=== PATIENT | female | born 1970 | race Caucasian/White ===

== ENCOUNTER 2017-07-12 10:15 | Emergency (ER) | payer SELFPAY ==
[~2017-07-12] VITALS: Ht 172.7 cm; Wt 133.2 kg
[~2017-07-12 10:15] MED LIST: ACET-1311 PO; GUAI100L PO; LISI10TA PO
[2017-07-12 10:19] VITALS: TEMP 36.6
--- NOTE | 2017-07-12 10:46 | EMERGENCY ROOM VISIT NOTE ---
History First contact with patient: 10:38 Chief Complaint: ED VAG BLEEDING Stated Complaint: NO PERIOD SINCE NOV 2016, NOW SUPER HEAVY/CLOTS History of Present Illness The patient is a 46 year old female who presents to the Emergency Room with complaints of heavy vaginal bleeding that started Tuesday, she states that she was bleeding through one pad every 30 minutes yesterday, but states that her bleeding has slowed down today. Her last period was November 2016, she states that she thought she might be going through menopause since she has not had a period for several months. She has some associated abdominal cramping and lower back cramps, but denies severe pain, nausea/vomiting, chest pain, shortness of breath, dizziness, syncope, fevers or chills, changes in bowel movements, or urinary complaints. She is sexually active with one male partner , she denies any concerns for STDs. Review of Systems A complete 10 point review of systems was reviewed with the patient with pertinent positives and negatives as per history of present illness. All else were negative. Past Medical/Surgical History Medical Problems: (1) Brain cyst (2) Bronchitis Social History Smoking Status: Former Smoker Marital Status: Occupation Status: unemployed Current/Historical Medications Scheduled PRN Ibuprofen (Motrin), 800 MG PO TID PRN for Pain Physical Exam Vital Signs Date Time Temp Pulse Resp B/P (MAP) Pulse Ox O2 Delivery O2 Flow Rate FiO2 07/12/17 13:48 68 20 163/90 98 Room Air 07/12/17 12:16 76 07/12/17 11:58 73 16 148/80 99 Room Air 07/12/17 11:24 98 Room Air 07/12/17 10:19 36.6 95 18 155/86 99 Room Air Physical Exam CONSTITUTIONAL: No acute distress. Well appearing and well nourished. Alert and oriented X 4 with normal affect. HEENT: Normocephalic, atraumatic. Pupils equal, round and reactive to light, EOMI. TMs normal. Pharynx normal. NECK: Supple, full active range of motion without discomfort. RESPIRATORY: Clear to auscultation bilaterally with no wheezing, crackles, rhonchi or stridor. Equal expansion bilaterally. CARDIOVASCULAR: Regular rate and rhythm with no murmurs, rubs or gallops. Normal peripheral perfusion. No edema. GASTROINTESTINAL: Soft, nontender, nondistended, obese. Bowel sounds present in all quadrants. PELVIC EXAM: External genitalia normal, no lacerations. Speculum exam reveals small amount of dark red blood/clots in the vaginal canal, no active bleeding noted. Bimanual exam reveals a closed cervix, no cervical motion tenderness, no uterine or adnexal tenderness or fullness. MUSCULOSKELETAL: Full range of motion of all joints without discomfort. INTEGUMENTARY: No rash or other significant dermatologic conditions noted. NEUROLOGIC: Cranial nerves II-XII grossly intact. No focal neurologic deficits noted. Medical Decision & Procedures ER Provider Diagnostic Interpretation: PELVIC COMPLETE NON OB HISTORY: 46 years-old Female heavy vaginal bleeding, not acute vaginal bleeding. COMPARISON: Hysterosalpingogram 05/03/2011 TECHNIQUE: Multiple real-time sonographic images of the deep pelvic structures were obtained transabdominally and transvaginally assessing grayscale appearance, color and spectral flow. FINDINGS: Study is mildly limited secondary to patient body habitus. TRANSABDOMINAL: Anteflexed uterus measures 7.9 x 3.4 x 3.8 cm. Endometrium measures 0.4 cm. TRANSVAGINAL: Anteflexed uterus measures 8.5 x 4.2 x 5.3 cm. Endometrium measures 1.0 cm in thickness. Nabothian cysts are noted. Right ovary measures 2.4 x 2.1 x 2.2 cm and is unremarkable with arterial inflow documented. The left ovary measures 2.6 x 1.7 x 2.5 cm and is also unremarkable with arterial inflow documented. There is no significant free pelvic fluid. Bladder is partially collapsed. IMPRESSION: 1. Unremarkable sonographic appearance of the uterus, endometrium and ovaries without evidence of ovarian torsion. 2. No significant free pelvic fluid. Laboratory Results 07/12/17 11:10 Red Blood Count 4.63, Mean Corpuscular Volume 97.0, Mean Corpuscular Hemoglobin 33.0, Mean Corpuscular Hemoglobin Concent 34.1, Mean Platelet Volume 12.0, Neutrophils (%) (Auto) 56.7, Lymphocytes (%) (Auto) 32.6, Monocytes (%) (Auto) 9.0, Eosinophils (%) (Auto) 1.1, Basophils (%) (Auto) 0.3, Neutrophils # (Auto) 4.93, Lymphocytes # (Auto) 2.85, Monocytes # (Auto) 0.79, Eosinophils # (Auto) 0.10, Basophils # (Auto) 0.03 07/12/17 11:10 Test 07/12/17 11:10 07/12/17 11:22 White Blood Count 8.73 K/uL (4.8-10.8) Red Blood Count 4.63 M/uL (4.2-5.4) Hemoglobin 15.3 g/dL (12.0-16.0) Hematocrit 44.9 % (37-47) Mean Corpuscular Volume 97.0 fL (80-100) Mean Corpuscular Hemoglobin 33.0 pg (25-34) Mean Corpuscular Hemoglobin Concent 34.1 g/dl (32-36) Platelet Count 262 K/uL (130-400) Mean Platelet Volume 12.0 fL (7.4-10.4) Neutrophils (%) (Auto) 56.7 % Lymphocytes (%) (Auto) 32.6 % Monocytes (%) (Auto) 9.0 % Eosinophils (%) (Auto) 1.1 % Basophils (%) (Auto) 0.3 % Neutrophils # (Auto) 4.93 K/uL (1.4-6.5) Lymphocytes # (Auto) 2.85 K/uL (1.2-3.4) Monocytes # (Auto) 0.79 K/uL (0.11-0.59) Eosinophils # (Auto) 0.10 K/uL (0-0.5) Basophils # (Auto) 0.03 K/uL (0-0.2) RDW Standard Deviation 55.3 fL (36.4-46.3) RDW Coefficient of Variation 15.4 % (11.5-14.5) Immature Granulocyte % (Auto) 0.3 % Immature Granulocyte # (Auto) 0.03 K/uL (0.00-0.02) Prothrombin Time 10.8 SECONDS (9.0-12.0) Prothromb Time International Ratio 1.0 (0.9-1.1) Activated Partial Thromboplast Time 26.2 SECONDS (21.0-31.0) Partial Thromboplastin Ratio 1.0 Anion Gap 6.0 mmol/L (3-11) Est Creatinine Clear Calc Drug Dose 118.4 ml/min Estimated GFR () 95.3 Estimated GFR (Non- 82.2 BUN/Creatinine Ratio 9.5 (10-20) Calcium Level 9.3 mg/dl (8.5-10.1) Total Bilirubin 0.4 mg/dl (0.2-1) Aspartate Amino Transf (AST/SGOT) 60 U/L (15-37) Alanine Aminotransferase (ALT/SGPT) 93 U/L (12-78) Alkaline Phosphatase 90 U/L (45-117) Total Protein 7.4 gm/dl (6.4-8.2) Albumin 3.5 gm/dl (3.4-5.0) Globulin 3.9 gm/dl (2.5-4.0) Albumin/Globulin Ratio 0.9 (0.9-2) Urine Color RED Urine Appearance CLEAR (CLEAR) Urine pH (4.5-7.5) Urine Specific [place] 1.027 (1.000-1.030) Urine Protein (NEG) Urine Glucose (UA) (NEG) Urine Ketones (NEG) Urine Occult Blood (NEG) Urine Nitrite (NEG) Urine Bilirubin (NEG) Urine Urobilinogen (NEG) Urine Leukocyte Esterase (NEG) Urine RBC >30 /hpf (0-4) Urine WBC >30 /hpf (0-5) Urine Epithelial Cells 10-20 /lpf (0-5) Urine Bacteria NEG (NEG) Urine Granular Casts 0-3 /lpf (0) Urine Mucus PRESENT (NONE PRSENT) Urine Test NEG (NEG) Medications Administered Medications (Trade) Dose Ordered Sig/Chey Route Start Time Stop Time Status Last Admin Dose Admin Sodium Chloride 1,000 ml @ 999 mls/hr Q1H1M STAT IV 07/12/17 10:49 07/12/17 11:49 DC 07/12/17 11:27 999 MLS/HR Medical Decision CC: Patient presenting with complaint of vaginal bleeding Interpretation of Labs: No leukocytosis, no anemia, no significant electrolyte abnormalities, normal renal function, AST/ALT mildly elevated, liver enzymes otherwise negative. UA shows hematuria, no infection. Negative . Differential Diagnosis: Includes, but not limited to dysfunctional uterine bleeding, uterine fibroids, threatened miscarriage, ectopic , ovarian cyst, anemia, among others. Medication Reconciliation: I attest that I have personally reviewed the patient' s current medication list. Vital signs review: I reviewed the patient's vital signs and interpret them as follows: T: Afebrile; BP: Hypertensive; HR: Within normal limits; RR: Within normal limits; Pulse Ox: Within normal limits on room air. Blood pressure screening: The patient was found to have an elevated blood pressure and was referred to their primary doctor for recheck and further treatment. Summary: Patient was evaluated at bedside, history of physical exam performed. Patient is alert and oriented, in no acute distress and nontoxic appearing, resting calmly in the stretcher. Patient does not have any abdominal tenderness or CVA tenderness on exam. Orders were placed at bedside for labs, UA and urine , IV fluids for hydration, pelvic ultrasound to evaluate for etiology of vaginal bleeding. Patient discussed with Dr. Coronado, who agrees with my assessment and plan. Labs reviewed as above, no acute abnormalities. She is not . Ultrasound reviewed, no acute abnormalities to explain patient's vaginal bleeding. Pelvic exam performed with nursing at bedside for health center manager. No significant abnormal findings pelvic exam, mild bleeding noted and cervix is closed. Patient reassessed multiple times throughout ED stay, she reports she is feeling improved and her bleeding has continued to slow since being in the emergency department. I do suspect dysfunctional uterine bleeding, possibly on the spectrum of perimenopause, and recommended patient follow-up with gynecology for further management. I did offer to speak with her director of corporate sponsorships or to patient's discharge for any recommendations for treatment, however patient states she has to leave by 2 PM to go pick pulling machine operator her son, and is requesting discharge at this time. Patient was provided with contact information for gynecology, and encouraged to follow up with them for further treatment. Patient was also given return precautions should her symptoms worsen, she verbalized understanding. Patient is discharged home in stable condition and ambulatory. Medication Reconcilliation Current Medication List: was personally reviewed by me Blood Pressure Screening Patient's blood pressure: Elevated blood pressure Blood pressure disposition: Referred to PCP Impression Primary Impression: DUB (dysfunctional uterine bleeding) Departure Information Dispostion Home / Self-Care Condition GOOD Referrals No Doctor, Assigned (PCP) Neva Calixto M.D. Patient Instructions ED Bleed Irregular Vaginal, [facility] Additional Instructions Please follow-up with TENSIONING MACHINE OPERATOR--call for an appointment. Please return to the ER for worsening symptoms, including severe abdominal or back pain, persistent heavy bleeding (soaking through 2 or more pads/tampons per hour), fever/chills, severe dizziness or passing out, or any other concerns.
[2017-07-12] MEDS ORDERED: SODIUM CHLORIDE 0.9% 1000ML 1,000 ML IV STA (10:49)
[2017-07-12 11:24] VITALS: O2SAT 98; Ht 172.7 cm; Wt 133.2 kg
[2017-07-12 11:30] LABS: BASO % 0.3 %; BASO ABS # 0.03 K/uL (0-0.2); COMPLETE YES; EOS % 1.1 %; HEMATOCRIT 44.9 % (37-47); IG% 0.3 %; LYMPH % 32.6 %; LYMPH ABS # 2.85 K/uL (1.2-3.4); MEAN CORPUSCULAR HGB CONC 34.1 g/dl (32-36); NEUT % 56.7 %; PLATELET COUNT 262 K/uL (130-400); RED BLOOD COUNT 4.63 M/uL (4.2-5.4); WHITE BLOOD COUNT 8.73 K/uL (4.8-10.8)
[2017-07-12] MEDS ORDERED: IBUP-1428 PO (11:37)
[2017-07-12 11:39] LABS: PROTHROMBIN TIME (PATIENT) 10.8 SECONDS (9.0-12.0)
[2017-07-12 11:49] LABS: BUN/CREATININE RATIO 9.5 (10-20); CALCIUM 9.3 mg/dl (8.5-10.1); CREATININE 0.84 mg/dl (0.60-1.20); POTASSIUM 4.1 mmol/L (3.5-5.1)
[2017-07-12 11:52] LABS: ALB/GLOB RATIO 0.9 (0.9-2)
[2017-07-12 11:52] LABS: MANUAL MICROSCOPIC REQUIRED? YES; REVIEW REQ? NO
[2017-07-12 11:53] LABS: SULFASALICYLIC ACID POS (NEG); URINE APPEARANCE CLEAR (CLEAR); URINE COLOR RED; URINE SPECIFIC GRAVITY 1.027 (1.000-1.030)
[2017-07-12 12:00] LABS: URINE RBC >30 /hpf (0-4); URINE WBC >30 /hpf (0-5)
[2017-07-12 12:01] LABS: URINE MUCUS PRESENT (NONE PRSENT)
[2017-07-12 12:02] LABS: URINE BACTERIA NEG (NEG); URINE GRANULAR CAST 0-3 /lpf (0)
--- NOTE | 2017-07-12 13:17 | DIAGNOSTIC IMAGING REPORT ---
PELVIC COMPLETE NON OB HISTORY: 46 years-old Female heavy vaginal bleeding, not acute vaginal bleeding. COMPARISON: Hysterosalpingogram 05/03/2011 TECHNIQUE: Multiple real-time sonographic images of the deep pelvic structures were obtained transabdominally and transvaginally assessing grayscale appearance, color and spectral flow. FINDINGS: Study is mildly limited secondary to patient body habitus. TRANSABDOMINAL: Anteflexed uterus measures 7.9 x 3.4 x 3.8 cm. Endometrium measures 0.4 cm. TRANSVAGINAL: Anteflexed uterus measures 8.5 x 4.2 x 5.3 cm. Endometrium measures 1.0 cm in thickness. Nabothian cysts are noted. Right ovary measures 2.4 x 2.1 x 2.2 cm and is unremarkable with arterial inflow documented. The left ovary measures 2.6 x 1.7 x 2.5 cm and is also unremarkable with arterial inflow documented. There is no significant free pelvic fluid. Bladder is partially collapsed. IMPRESSION: 1. Unremarkable sonographic appearance of the uterus, endometrium and ovaries without evidence of ovarian torsion. 2. No significant free pelvic fluid. The above report was generated using voice recognition software. It may contain grammatical, syntax or spelling errors. Electronically signed by: Marino Arreola M.D. 07/12/2017 1:16 PM Dictated Date/Time: 07/12/2017 1:13 PM
[2017-07-12 13:48] VITALS: BP 163/90; PULSE 68; O2SAT 98
== END 2017-07-12 14:07 | disposition home or self-care (01) ==
LOC: C.EDB 10:16
DX: N93.8 Other specified abnormal uterine and vaginal bleeding (principal); Z87.891 Personal history of nicotine dependence

== ENCOUNTER → 2017-10-26 | Outpatient (CLI) | payer OTHER ==
[~2017-10-26] MED LIST changes: -ACET-1311 PO; -GUAI100L PO; +IBUP-1428 PO; -LISI10TA PO
--- NOTE | 2017-10-26 16:11 | DIAGNOSTIC IMAGING REPORT ---
ULTRASOUND LEFT LOWER EXTREMITY VENOUS CLINICAL HISTORY: Left leg swelling. COMPARISON STUDY: Lower extremity venous ultrasound dated 05/22/2015 TECHNIQUE: Real-time, grayscale, and color Doppler sonography of the deep veins of the left lower extremity was performed from the inguinal crease to the calf. Compression and augmentation were utilized. FINDINGS: There is no sonographic evidence of deep venous thrombosis identified in the left lower extremity. The common femoral, superficial femoral, and popliteal veins are patent and normally compressible. The greater saphenous vein and the profunda femoris vein at the junction with the common femoral vein are clear. The visualized calf veins are patent. IMPRESSION: There is no sonographic evidence of deep venous thrombosis identified in the left lower extremity. Electronically signed by: Kumar Caldwell M.D. 10/26/2017 4:10 PM Dictated Date/Time: 10/26/2017 4:08 PM
== END | disposition home or self-care (01) ==
LOC: C.ULTR 15:43
PROVIDERS: ATTEND Family Medicine
DX: M79.89 Other specified soft tissue disorders (principal)

== ENCOUNTER → 2017-11-04 | Outpatient (CLI) | payer OTHER ==
--- NOTE | 2017-11-07 15:50 | MAMMOGRAPHY REPORT ---
BILATERAL FIRST EVER DIGITAL SCREENING MAMMOGRAM TOMOSYNTHESIS WITH CAD: 11/04/2017 CLINICAL HISTORY: Routine screening. Baseline exam. TECHNIQUE: Breast tomosynthesis in addition to standard 2D mammography was performed. Current study was also evaluated with a Computer Aided Detection (CAD) system. COMPARISON: No prior exams were available for comparison. BREAST COMPOSITION: The tissue of both breasts is almost entirely fatty. FINDINGS: There is a possible small cluster of calcifications within the left upper outer quadrant a nteriorly, for which spot magnification views are recommended for further evaluation. The remainder of both breasts demonstrate no suspicious masses, calcifications, or areas of marine architect ural distortion. IMPRESSION: ACR BI-RADS CATEGORY 0: INCOMPLETE EVALUATION: NEED ADDITIONAL IMAGING EVALUATION Left upper outer quadrant calcifications, for which additional imaging evaluation is recommended give n no priors available to document stability. The patient will be called to schedule an appointment. Approximately 10% of breast cancers are not detected with mammography. A negative mammographic report should not delay biopsy if a clinically suggestive mass is present. Nicole Cardozo M.D. ah/:11/04/2017 15:49:37 Local Bulk Driver: Jannie LEMUS(R)(M), [facility] letter sent: Addl Imaging 0 BI-RADS Code: ACR BI-RADS Category 0: Incomplete Evaluation: Need Additional Imaging Evaluation
== END | disposition home or self-care (01) ==
LOC: C.MAMM 12:46
PROVIDERS: ATTEND Family Medicine
DX: Z12.31 Encounter for screening mammogram for malignant neoplasm of breast (principal); R92.1 Mammographic calcification found on diagnostic imaging of breast

== ENCOUNTER 2017-11-18 04:20 | Emergency (ER) | payer OTHER ==
[~2017-11-18] VITALS: Ht 172.7 cm; Wt 138.5 kg
[2017-11-18 04:24] VITALS: Ht 172.7 cm; Wt 138.5 kg
[2017-11-18] MEDS ORDERED: ALBUT/IPRATROP 3MG/0.5MG NEB 3 ML VIAL INH STA (04:59)
--- NOTE | 2017-11-18 05:13 | EMERGENCY ROOM VISIT NOTE ---
History First contact with patient: 04:46 Chief Complaint: FLU LIKE SX Stated Complaint: FLU History of Present Illness The patient is a 47 year old female who presents to the Emergency Room with complaints of flulike symptoms which started 4 days ago. The patient reports that she has had cough, ear pain, sore throat and body aches. She reports she has been unable to sleep or eat due to the symptoms. She states that the cough is a "deep cough" and makes it difficult to breathe. She rates her discomfort an 8/10. She denies headache, neck pain/stiffness, chest pain or vomiting. Review of Systems A complete 10 point review of systems was reviewed with the patient with pertinent positives and negatives as per history of present illness. All else were negative. Past Medical/Surgical History Medical Problems: (1) Brain cyst (2) Bronchitis Social History Smoking Status: Never Smoker Alcohol Use: none Marital Status: Housing Status: lives alone Occupation Status: unemployed Current/Historical Medications Scheduled Azithromycin (Zithromax Z-Eloy), 0 PO UD Clonidine Hcl (Catapres), 0.1 MG PO DAILY Cyclobenzaprine Hcl (Flexeril), 10 MG PO BID Doxepin (Sinequan), 100 MG PO DAILY Gabapentin (Neurontin), 1,200 MG PO TID Lisinopril (Prinivil), 10 MG PO DAILY Physical Exam Vital Signs Date Time Temp Pulse Resp B/P (MAP) Pulse Ox O2 Delivery O2 Flow Rate FiO2 11/18/17 09:25 37.3 121 20 151/90 96 11/18/17 07:00 115 22 141/83 95 11/18/17 05:41 111 18 141/83 95 Room Air 11/18/17 04:24 37.3 125 20 141/96 95 Room Air Physical Exam VITALS: Vitals are noted on the nurse's note and reviewed by myself. Vital signs stable. GENERAL: This is a 47-year-old female, in no acute distress, nondiaphoretic, well-developed well-nourished. SKIN: The skin was without rashes. HEAD: Normocephalic atraumatic. EARS: External auditory canals clear, tympanic membranes pearly kilpatrick without erythema or effusion bilaterally. EYES: Pupils equal round and reactive to light and accommodation. NOSE: Patent, turbinates without inflammation or discharge. MOUTH: Mucous membranes moist. Tonsils are not enlarged. Pharynx without erythema or exudate. NECK: Supple without nuchal rigidity. No lymphadenopathy. HEART: Regular rate and rhythm without murmurs gallops or rubs. LUNGS: Clear to auscultation bilaterally without wheezes, rales or rhonchi. No retractions or accessory muscle use. NEURO: Patient was alert and oriented to person place and time. Medical Decision & Procedures ER Provider Diagnostic Interpretation: CHEST 2 VIEWS ROUTINE CLINICAL HISTORY: cough, flu-like symptoms COMPARISON STUDY: November 27, 2015 FINDINGS: The cardiac and mediastinal contours are normal. There is no evidence of focal pulmonary consolidation. There is no evidence of failure. No pleural effusions are visualized.[ Slight prominence the basal interstitial markings, likely relates to technical factors given the patient's large body habitus. IMPRESSION: No active disease in the chest. CT ANGIOGRAM OF THE CHEST FINDINGS: Paratracheal and hilar lymph nodes are the upper limits of normal in size. There was no evidence of thoracic aortic dilatation. There were no pulmonary artery filling defects to indicate acute pulmonary embolism. Pulmonary arterial opacification is somewhat limited due to the patient's large body habitus. No pleural effusions are visualized. There is respiratory motion artifact. There are ill-defined bilateral nodular pulmonary airspace opacities. Given the history, the findings likely represent a multifocal pneumonitis. IMPRESSION: 1. No CT evidence of acute pulmonary embolism 2. Ill-defined bilateral nodular pulmonary airspace opacities. Given the clinical history, the findings likely represent a multifocal pneumonitis. Laboratory Results 11/18/17 07:10 Red Blood Count 4.86, Mean Corpuscular Volume 101.4, Mean Corpuscular Hemoglobin 35.4, Mean Corpuscular Hemoglobin Concent 34.9, Mean Platelet Volume 11.6, Neutrophils (%) (Auto) 73.6, Lymphocytes (%) (Auto) 16.4, Monocytes (%) ( Auto) 9.1, Eosinophils (%) (Auto) 0.4, Basophils (%) (Auto) 0.2, Neutrophils # ( Auto) 7.77, Lymphocytes # (Auto) 1.73, Monocytes # (Auto) 0.96, Eosinophils # ( Auto) 0.04, Basophils # (Auto) 0.02 11/18/17 07:10 Test 11/18/17 04:45 11/18/17 07:10 Influenza Type A Antigen Neg for Influ A (NEG) Influenza Type B Antigen Neg for Influ B (NEG) White Blood Count 10.55 K/uL (4.8-10.8) Red Blood Count 4.86 M/uL (4.2-5.4) Hemoglobin 17.2 g/dL (12.0-16.0) Hematocrit 49.3 % (37-47) Mean Corpuscular Volume 101.4 fL (80-100) Mean Corpuscular Hemoglobin 35.4 pg (25-34) Mean Corpuscular Hemoglobin Concent 34.9 g/dl (32-36) Platelet Count 218 K/uL (130-400) Mean Platelet Volume 11.6 fL (7.4-10.4) Neutrophils (%) (Auto) 73.6 % Lymphocytes (%) (Auto) 16.4 % Monocytes (%) (Auto) 9.1 % Eosinophils (%) (Auto) 0.4 % Basophils (%) (Auto) 0.2 % Neutrophils # (Auto) 7.77 K/uL (1.4-6.5) Lymphocytes # (Auto) 1.73 K/uL (1.2-3.4) Monocytes # (Auto) 0.96 K/uL (0.11-0.59) Eosinophils # (Auto) 0.04 K/uL (0-0.5) Basophils # (Auto) 0.02 K/uL (0-0.2) RDW Standard Deviation 55.3 fL (36.4-46.3) RDW Coefficient of Variation 15.0 % (11.5-14.5) Immature Granulocyte % (Auto) 0.3 % Immature Granulocyte # (Auto) 0.03 K/uL (0.00-0.02) D-Dimer 630 ug/L FEU (0-500) Anion Gap 8.0 mmol/L (3-11) Est Creatinine Clear Calc Drug Dose 124.3 ml/min Estimated GFR () 98.8 Estimated GFR (Non- 85.3 BUN/Creatinine Ratio 8.6 (10-20) Calcium Level 9.0 mg/dl (8.5-10.1) Medications Administered Medications (Trade) Dose Ordered Sig/Chey Route Start Time Stop Time Status Last Admin Dose Admin Albuterol/ Ipratropium (Duoneb) 3 ml NOW STAT INH 11/18/17 04:59 11/18/17 05:01 DC 11/18/17 05:17 3 ML Dextromethorphan Polymer Complex (Delsym Susp) 60 mg NOW STAT PO 11/18/17 05:54 11/18/17 05:56 DC 11/18/17 06:32 60 MG Sodium Chloride 1,000 ml @ 999 mls/hr Q1H1M STAT IV 11/18/17 06:55 11/18/17 07:55 DC 11/18/17 06:55 999 MLS/HR Medical Decision Differential diagnosis includes pneumonia, upper respiratory infection, PE, influenza, among others. The patient is a 47-year-old female who presents today complaining of flu-like symptoms. Labs revealed no leukocytosis, anemia or concerning electrolyte abnormalities. Chest x-ray negative. Influenza testing negative. D-dimer was found to be slightly elevated. CT of the chest was performed and did show findings consistent with pneumonitis, however no pulmonary embolism. Patient will be placed on Zithromax. O2 saturations remained near 100%. Based on the patient's presentation and work up, I feel the patient is stable for outpatient treatment. The patient was educated to return to the emergency department for any worsening of their current condition or new/concerning symptoms. She will follow up with her PCP. Medication Reconcilliation Current Medication List: was personally reviewed by me Blood Pressure Screening Patient's blood pressure: Elevated blood pressure Blood pressure disposition: Referred to PCP Impression Primary Impression: Pneumonia Departure Information Dispostion Home / Self-Care Condition GOOD Prescriptions Azithromycin (ZITHROMAX Z-ELOY) 250 Mg Tab 0 PO UD, #1 PKT 2 TABS DAY 1, THEN 1 TAB DAILY FOR 4 DAYS Prov: Mayra Walker ., KECIA 11/18/17 Referrals Aiden Pérez MD (PCP) Patient Instructions My [facility] Additional Instructions You were prescribed Z-Eloy to be taken as prescribed. This is an antibiotic. All antibiotics have the potential to cause diarrhea. Stop this medication and contact a medical provider if you were to develop any significant adverse side effects including: wheezing, shortness of breath, passing out, vomiting, or a diffuse rash. Always take antibiotics as directed and COMPLETE the ENTIRE course regardless of the improvement of your symptoms. Use a Ventolin inhaler every 4-6 hours as needed for shortness of breath. For pain control, you can use the following [id number] medicines (if >12 yo): - Regular strength (325mg/tab) Tylenol (acetaminophen) 2 tabs every 4-6 hours as needed. Do not exceed 12 tablets in a 24 hour period. Avoid taking more than 4 grams (4000 mg) of Tylenol per day. This includes any other sources of acetaminophen you may take on a regular basis. - Regular strength (200 mg/tab) Advil (ibuprofen) 1-2 tabs every 4-6 hours as needed. Do not exceed a dose of 3200 mg per day. Follow-up with your primary care provider for recheck. Return to the emergency department with shortness of breath, or any other new/ concerning or worsening symptoms. Problem Qualifiers Primary Impression: Pneumonia Pneumonia type: due to unspecified organism Laterality: unspecified laterality Lung location: unspecified part of lung Qualified Codes: J18.9 - Pneumonia, unspecified organism
[2017-11-18 05:23] LABS: INFLUENZA B ANTIGEN Neg for Influ B (NEG)
[2017-11-18] MEDS: HYDROCODONE/HOMATROPINE SYRUP 5MG/1.5MG 5ML UDP PO STA ×2 (05:45→05:49)
[2017-11-18] MEDS ORDERED: DEXTROMETHORPHAN POLYMR COMPLX 60 MG/10 ML UDP PO STA (05:54)
--- NOTE | 2017-11-18 06:37 | DIAGNOSTIC IMAGING REPORT ---
CHEST 2 VIEWS ROUTINE CLINICAL HISTORY: cough, flu-like symptoms COMPARISON STUDY: November 27, 2015 FINDINGS: The cardiac and mediastinal contours are normal. There is no evidence of focal pulmonary consolidation. There is no evidence of failure. No pleural effusions are visualized.[ Slight prominence the basal interstitial markings, likely relates to technical factors given the patient's large body habitus. IMPRESSION: No active disease in the chest. Electronically signed by: Jeremy Thibodeaux M.D. 11/18/2017 6:35 AM Dictated Date/Time: 11/18/2017 6:35 AM
[2017-11-18] MEDS ORDERED: SODIUM CHLORIDE 0.9% 1000ML 1,000 ML IV STA (06:55)
[2017-11-18] MEDS ORDERED: GABA600T PO (06:59)
[2017-11-18] MEDS ORDERED: CYCL10TA6 PO (06:59)
[2017-11-18] MEDS ORDERED: DOXE50CA3 PO (06:59)
[2017-11-18] MEDS ORDERED: CTP/1 PO (06:59)
[2017-11-18] MEDS ORDERED: LISI10TA PO (06:59)
[2017-11-18 07:24] LABS: BASO % 0.2 %; BASO ABS # 0.02 K/uL (0-0.2); EOS % 0.4 %; EOS ABS # 0.04 K/uL (0-0.5); HEMATOCRIT 49.3 % (37-47); HEMOGLOBIN 17.2 g/dL (12.0-16.0); IG# 0.03 K/uL (0.00-0.02); LYMPH % 16.4 %; LYMPH ABS # 1.73 K/uL (1.2-3.4); MEAN CELL VOLUME 101.4 fL (80-100); MEAN CORPUSCULAR HEMOGLOBIN 35.4 pg (25-34); MEAN CORPUSCULAR HGB CONC 34.9 g/dl (32-36); MEAN PLATELET VOLUME 11.6 fL (7.4-10.4); MONO % 9.1 %; MONO ABS # 0.96 K/uL (0.11-0.59); NEUT % 73.6 %; NEUT ABS # 7.77 K/uL (1.4-6.5); PLATELET COUNT 218 K/uL (130-400); RED CELL DISTRIBUTION WIDTH SD 55.3 fL (36.4-46.3); WHITE BLOOD COUNT 10.55 K/uL (4.8-10.8)
[2017-11-18 07:40] LABS: CREATININE 0.81 mg/dl (0.60-1.20); POTASSIUM 3.6 mmol/L (3.5-5.1)
[2017-11-18] MEDS ORDERED: OPTIRAY 320 IV PRN (08:15)
--- NOTE | 2017-11-18 08:49 | DIAGNOSTIC IMAGING REPORT ---
CT ANGIOGRAM OF THE CHEST CLINICAL HISTORY: Shortness of breath, cough. Chills. Body aches. Fever. COMPARISON STUDY: Chest x-ray dated to TECHNIQUE: Following the IV administration of 94 mL of Optiray-320, CT angiogram of the thorax was performed from the thoracic inlet to the lung bases utilizing the pulmonary embolus protocol. Images are reviewed in the axial, sagittal, and coronal planes. IV contrast was administered without complication. MIP imaging was performed. A dose lowering technique was utilized adhering to the principles of ALARA. CT DOSE: 715.43 mGy.cm FINDINGS: Paratracheal and hilar lymph nodes are the upper limits of normal in size. There was no evidence of thoracic aortic dilatation. There were no pulmonary artery filling defects to indicate acute pulmonary embolism. Pulmonary arterial opacification is somewhat limited due to the patient's large body habitus. No pleural effusions are visualized. There is respiratory motion artifact. There are ill-defined bilateral nodular pulmonary airspace opacities. Given the history, the findings likely represent a multifocal pneumonitis. IMPRESSION: 1. No CT evidence of acute pulmonary embolism 2. Ill-defined bilateral nodular pulmonary airspace opacities. Given the clinical history, the findings likely represent a multifocal pneumonitis. Electronically signed by: Jeremy Thibodeaux M.D. 11/18/2017 8:48 AM Dictated Date/Time: 11/18/2017 8:43 AM
[2017-11-18] MEDS ORDERED: AZITTAB PO (09:02)
[2017-11-18 09:25] VITALS: BP 151/90; PULSE 121; TEMP 37.3; O2SAT 96
== END 2017-11-18 09:26 | disposition home or self-care (01) ==
LOC: C.EDB 04:21
DX: J18.9 Pneumonia, unspecified organism (principal)

== ENCOUNTER 2018-02-10 09:57 | Inpatient (IN) | payer OTHER ==
[~2018-02-10] VITALS: Ht 172.7 cm; Wt 138.9 kg
[~2018-02-10 09:57] MED LIST changes: +CTP/1 PO; +CYCL10TA6 PO; +DOXE50CA3 PO; +GABA600T PO; -IBUP-1428 PO; +LISI10TA PO
[2018-02-10] MEDS ORDERED: NITROGLYCERIN 0.4 MG SL PER TAB CHARGE SL STA (10:12)
[2018-02-10 10:27] LABS: BASO % 0.1 %; BASO ABS # 0.01 K/uL (0-0.2); EOS % 2.3 %; HEMATOCRIT 45.3 % (37-47); HEMOGLOBIN 15.7 g/dL (12.0-16.0); IG# 0.02 K/uL (0.00-0.02); LYMPH % 36.9 %; LYMPH ABS # 3.21 K/uL (1.2-3.4); MEAN CELL VOLUME 103.7 fL (80-100); MEAN CORPUSCULAR HEMOGLOBIN 35.9 pg (25-34); MEAN CORPUSCULAR HGB CONC 34.7 g/dl (32-36); MEAN PLATELET VOLUME 11.5 fL (7.4-10.4); MONO % 9.9 %; MONO ABS # 0.86 K/uL (0.11-0.59); NEUT % 50.6 %; NEUT ABS # 4.39 K/uL (1.4-6.5); PLATELET COUNT 171 K/uL (130-400); RED CELL DISTRIBUTION WIDTH CV 15.5 % (11.5-14.5); RED CELL DISTRIBUTION WIDTH SD 59.3 fL (36.4-46.3); WHITE BLOOD COUNT 8.69 K/uL (4.8-10.8)
--- NOTE | 2018-02-10 10:35 | DIAGNOSTIC IMAGING REPORT ---
CHEST ONE VIEW PORTABLE CLINICAL HISTORY: eval for pna COMPARISON STUDY: Chest radiograph and chest CT November 18, 2017. FINDINGS: Lung volumes are normal. No pneumothorax or pleural effusion is noted. Mild left basilar opacity favors atelectasis. There is no evidence for pulmonary edema. Mild cardiomegaly is unchanged. IMPRESSION: 1. No acute cardiopulmonary findings. 2. Stable mild cardiomegaly. Electronically signed by: Dani Cardona M.D. 02/10/2018 10:33 AM Dictated Date/Time: 02/10/2018 10:32 AM
[2018-02-10 10:36] LABS: INR 1.1 (0.9-1.1); PTT PATIENT 26.9 SECONDS (21.0-31.0)
--- NOTE | 2018-02-10 10:36 | DIAGNOSTIC IMAGING REPORT ---
HEAD WITHOUT CONTRAST (CT) CT DOSE: 614.27 mGy.cm HISTORY: Mental status change eval for cva TECHNIQUE: Multiaxial CT images of the head were performed without the use of intravenous contrast. A dose lowering technique was utilized adhering to the principles of ALARA. Comparison: 04/14/2014 Findings: The paranasal sinuses and mastoid air cells are clear. The calvarium and skull base are intact. The ventricles and sulci are within normal limits. Low-density region right cerebellum versus technical artifact. Small hypodensity] convexity suggesting an old ischemic process. No evidence for acute intracranial hemorrhage. Impression: 1. Low-density lesion right mid cerebellum versus technical artifact. 2. MRI of the brain is suggested to exclude a significant process. The above report was generated using voice recognition software. It may contain grammatical, syntax or spelling errors. Electronically signed by: Leo Anderson M.D. 02/10/2018 10:34 AM Dictated Date/Time: 02/10/2018 10:31 AM
[2018-02-10] MEDS ORDERED: VNTHFA/IN INH (10:40)
[2018-02-10] MEDS ORDERED: SUMA25TA12 PO (10:40)
[2018-02-10 10:42] LABS: CALCIUM 8.5 mg/dl (8.5-10.1); CREATININE 0.75 mg/dl (0.60-1.20); POTASSIUM 3.5 mmol/L (3.5-5.1)
[2018-02-10] MEDS ORDERED: OPTIRAY 320 IV PRN (11:00)
--- NOTE | 2018-02-10 11:32 | DIAGNOSTIC IMAGING REPORT ---
(CHEST FOR PE) ANGIO WITH CT DOSE: 750.80 mGy.cm HISTORY: Chest pain dyspnea TECHNIQUE: Multiaxial CT images of the chest were performed following the intravenous administration of contrast to evaluate the pulmonary arteries. Maximal intensity projection images were also obtained. A dose lowering technique was utilized adhering to the principles of ALARA. COMPARISON STUDY: None. FINDINGS: Thoracic aorta is unremarkable in overall caliber. Transaxial images of the right lower lobe demonstrates a small filling defect on image 118 of 288. There are also a small filling defect of a left lower lobe pulmonary vessel image 10/31/1987. There is no evidence for a major central pulmonary embolus. There is minimal atelectatic change left base. Lungs otherwise appear clear. Mild cardiomegaly is present. No significant focal infiltrate or adenopathy. IMPRESSION: 1. Study is positive for small second-order pulmonary emboli involving the right as well as left lower lobe regions. 2. Minimal atelectasis left base. 3. No evidence for main or central pulmonary embolus. The above report was generated using voice recognition software. It may contain grammatical, syntax or spelling errors. Electronically signed by: Leo Anderson M.D. 02/10/2018 11:31 AM Dictated Date/Time: 02/10/2018 11:23 AM
[2018-02-10] MEDS ORDERED: PANTOprazole SOD 40 MG TAB PO STA (12:16)
[2018-02-10] MEDS ORDERED: HEPARIN 25000 UNIT/500 ML D5W ONE (12:24)
[2018-02-10] MEDS ORDERED: HydrALAZINE HCL 20 MG/ML VIAL IV. PRN (12:30)
[2018-02-10] MEDS ORDERED: PHARMACIST DISCHARGE MED REC CONSULT PRN (12:30)
[2018-02-10] MEDS ORDERED: ONDANSETRON INJ 2 MG/ML 2 ML VIAL IV PRN (12:30)
[2018-02-10] MEDS ORDERED: ALBUTEROL HFA 8 GM INHALER INH PRN (12:30)
[2018-02-10] MEDS ORDERED: POLYETHYLENE (MIRALAX) 17 GM PACK PO PRN (12:30)
[2018-02-10] MEDS ORDERED: SUMATRIPTAN SUCCINATE 25 MG TAB PO PRN (12:30)
[2018-02-10] MEDS ORDERED: MAGNESIUM HYDROXIDE SUSP 30 ML UDC PO PRN (12:30)
[2018-02-10] MEDS ORDERED: ALUMINUM/MAGNESIUM/SIMETH (MAALOX MAX) 30 ML UDC PO PRN (12:30)
[2018-02-10 12:35] VITALS: O2SAT 96; Ht 172.7 cm; Wt 138.9 kg
--- NOTE | 2018-02-10 12:43 | History and Physical ---
History & Physical Date of Service February 10, 2018. History & Physical ally PE, slurry speech comes and goes, and HTN, [id number]
[2018-02-10 13:02] LABS: HEMOGLOBIN A1C 5.7 % (4.5-5.6)
[2018-02-10 13:30] VITALS: BP 131/82; PULSE 82; TEMP 36.6; O2SAT 95
[2018-02-10] MEDS ORDERED: ALBUT/IPRATROP 3MG/0.5MG NEB 3 ML VIAL INH PRN (13:30)
--- NOTE | 2018-02-10 14:12 | HISTORY & PHYSICAL EXAMINATION ---
DATE OF ADMISSION: 02/10/2018 CHIEF COMPLAINT: Chest pain and slurred speeches. HISTORY OF PRESENT ILLNESS: The patient is a 47-year-old white male with a significant past medical history of bronchitis, hypertension, anxiety, brain cyst coming to the hospital Emergency Department because of the above chief complaint. The patient reports she had intermittent chest discomfort 2 months ago. Reported chest pain primarily in the right side, associated with tightness. The episodes are coming and going, associated with shortness of breath. Most recent chest pain was 2:00 a.m. this morning. In the last episode, she had chest pain radiation to the right arm associated with sweating and nausea. In the Emergency Room, she was denying nausea, sometimes has chest pain on exertion, nothing can make it better. Reports had left lower extremity swelling 2 months ago, was seen by PCP, was checked with a Doppler ultrasound and had no DVT 2 months ago. This morning, the patient reported to PCP she was having chest pain, she was advised to go to the hospital Emergency Room. In ED, the patient was found to have bilateral PE and possible lesion or artifacts in the right middle cerebellar area. When I interviewed the patient, the patient was awake, alert, oriented, conversational, followed all commands, confirming the above information, no more chest pain, some mild cough with white sputum, denied hemoptysis, denied severe chest pain now. Patient spoke in full sentences, no slurry speeches, no local weakness. She did report a left lower extremity swelling, currently 3/10, however, is much improved. REVIEW OF SYSTEMS: Denied fever or chills. Denied palpitations. Denied nausea, vomiting, diarrhea, constipation, or abdominal pain. Denied dysuria, urgency, or frequencies. There was occasional slurry speech which comes and goes, but there was not any local deficits, no balance problems. Reported some blurry vision recently, possible need to be seen by director cloud transformation. ALLERGIES: No known drug allergies. PAST MEDICAL HISTORY: Includes brain cyst, bronchitis, hypertension, anxiety. FAMILY HISTORY: Mom had acute heart attack. Father is healthy. Denied family history of DVT or PE. SOCIAL HISTORY: History of tobacco abuse disorder half pack per day, recently restarted smoking because of stress. Denied alcohol abuse disorder, denied illicit drug abuse. The patient lives alone at home. MEDICATIONS: Current medications taken at home include clonidine 0.1 mg p.o. daily, Flexeril 10 mg p.o. b.i.d., doxepin 100 mg p.o. daily, Neurontin 1200 mg p.o. t.i.d., lisinopril 10 mg p.o. daily, Imitrex 25 mg p.o. p.r.n. As needed medications include Ventolin 2 puffs inhaled q.4 h. p.r.n. for shortness of breath or wheezing. REVIEW OF SYSTEMS: Please see HPI, otherwise 14 points organ system review negative. PHYSICAL EXAMINATION: VITAL SIGNS: Temperature 36.6, pulse 102, respiration rate 20, blood pressure 158/102, improved to 145/86, pulse oximetry was 98% on room air. GENERAL: The patient is a female, obesity, awake, alert, oriented, conversational, follows all commands. HEENT: Head was normocephalic. Pupils equal, round, and responsive to light. Conjunctivae are noninjected. Ears were normal. Nose was normal. Moist mucous membranes. RESPIRATORY: There are no decreased breathing sounds. There was no wheezing, rhonchi, or crackles. CARDIOVASCULAR: Heart had regular rhythm. S1 and S2. No rubs, no gallops. GASTROINTESTINAL: Abdomen was soft and obese. Bowel sounds positive. Bilateral CVA was nontender. EXTREMITIES: Bilateral lower extremities: No swelling. Lopez sign was negative. Calf was nontender. Limited range of motion. Left lower extremity has mild swelling than right lower extremity. Calf was nontender. Pulse was positive and symmetric. There was no edema, no cyanosis, no clubbing. NEUROLOGIC: Cranial nerves II through XII were intact. There were no focal deficits, normal speech. No any weakness. PSYCHIATRIC EVALUATION: Normal affect. IMAGING STUDIES: 1. Head CT study was done which showed low density lesion in the right mid cerebellum versus technical artifacts: 2. MRI of the brain is recommended to rule out a significant process. 3. Chest x-ray: No acute cardiopulmonary findings. Stable cardiomegaly. 4. Chest CT PE protocol shows positive small pulmonary embolization in the bilateral lower lobes of the lung. There was no evidence of central pulmonary embolization. LABORATORY STUDIES: WBC 8.6, hemoglobin 15, platelet 171. BUN 5, creatinine 0.7, blood glucose 129. Sodium 142, potassium 3.5. PT/INR 11.5/1. The patient got 1 dose of nitroglycerin in the ER. ASSESSMENT: A 47-year-old white female with problems below: 1. Bilateral lower lung pulmonary embolism, which likely is acute pulmonary embolism. 2. Exertional chest pain with morbid obesity and history of hypertension, need to rule out acute coronary syndrome. 3. Slurry speech which comes and goes. The patient has no symptoms now nor any deficits now. Combined with the head CT results, there were lesion artifacts in the right mid cerebellum. The patient needs to rule out CVA or further investigations of the right cerebellar lesions. 4. Accelerated hypertension. 5. Tobacco abuse disorder, still smoking. 6. Anxiety. 7. Migraine. 8. History of bronchitis. 9. Neuropathy. PLAN: 1. Like I mentioned above, acute PE bilaterally. Will check Doppler ultrasound in bilateral lower extremities for further evaluation of DVT. We will send coagulopathy profile before heparin drip. Discussed with patient about the risks and benefits of starting heparin drip for anticoagulation for the treatment of acute PE. The patient denied history of brain bleeding, history of any severe bleeding such as ulcerative gastric disease. She is willing to take the risk for the heparin drip. Heparin drip without bolus started. She has had a coagulopathy profile. DuoNeb was ordered. Need to find out what would be the best medication for patient's anticoagulation at home. She has morbid obesity, possible Novel oral anticoagulants, not fit to he, possible need to start Coumadin. This need to be detailed discussed with the patient. 2. Reported coming and going slurry speech, currently she does not have any slurry speech. NIH stroke scale is 0. However, because of her comorbidities such as morbid obesity and hypertension, she is at risk of CVA. Also has right cerebellar lesions in the head CT studies. We will start CVA protocol. Check HbA1c, lipid panel, NIH stroke scale q.4 h., tele monitor, start aspirin, will check brain MRI to rule out CVA, echocardiogram was ordered, I will check head and neck MRA instead of carotid Doppler ultrasound, will follow up first lipid panel study results and then we will go from there. 3. The patient has accelerated hypertension. We will continue home medication, follow up blood pressure for now. 4. For the tobacco abuse disorder, will give nicotine patch. 5. For other medical conditions such as migraine, anxiety, bronchitis, we will continue home medications. I discussed with patient about care plan and answered all the questions. DVT prophylaxis is covered. GI prophylaxis is ordered. Patient is full code.
[2018-02-10] MEDS: HEPARIN 25,000 UNIT/500ML D5W 500 ML IV SCH ×3 (14:15→22:35)
[2018-02-10] MEDS ORDERED: LORAZEPAM 2 MG/ML 1 ML VIAL ONE (14:21)
[2018-02-10] MEDS ORDERED: LORAZEPAM INJ 0.5 MG in SYRINGE 0.75 ML IV PRN (14:30)
[2018-02-10] MEDS ORDERED: NURSING VERBAL MED ORDER ONE (14:30)
[2018-02-10] MEDS ORDERED: LORAZEPAM INJ 0.5 MG in SYRINGE 0.75 ML IV ONE (14:30)
[2018-02-10] MEDS: GABAPENTIN 600 MG TAB PO SCH ×2 (14:35→21:24)
[2018-02-10] MEDS: ALBUT/IPRATROP 3MG/0.5MG NEB 3 ML VIAL INH SCH ×2 (15:19→19:51)
--- NOTE | 2018-02-10 15:33 | DIAGNOSTIC IMAGING REPORT ---
MRI OF THE BRAIN WITHOUT AND WITH IV CONTRAST CLINICAL HISTORY: Slurred speech. Possible stroke. COMPARISON STUDY: Head CT February 10, 2018. TECHNIQUE: Utilizing a 1.5 Paty magnet and dedicated coil, multiplanar, multiecho imaging of the brain was performed pre and postcontrast administration. IV administration of 13.7 mL of Gadavist contrast was uneventful. FINDINGS: There are no foci of restricted diffusion. No acute intracranial hemorrhage, midline shift or mass effect is present. Ventricular system is normal. Basilar cisterns are patent. There are no extra-axial collections. No intracranial mass or pathologic enhancement is identified. No signal abnormality within the brain parenchyma is identified. Exam is mildly compromised by artifact but is diagnostic. Orbits, sinuses and mastoid air cells are unremarkable. IMPRESSION: Unremarkable MRI of the brain. The possible right cerebellar abnormality on head CT of February 10, 2018 was artifactual. No acute infarct. Electronically signed by: Dani Cardona M.D. 02/10/2018 3:31 PM Dictated Date/Time: 02/10/2018 3:28 PM
--- NOTE | 2018-02-10 16:19 | DIAGNOSTIC IMAGING REPORT ---
BILATERAL LOWER EXTREMITY VENOUS DOPPLER HISTORY: Acute bilateral lower extremity pain and swelling to rule out DVT COMPARISON STUDY: None. FINDINGS: There is normal compressibility, flow, and augmentation within the bilateral lower extremity deep venous systems. IMPRESSION: No sonographic evidence of deep venous thrombosis within the right or left lower extremity. Electronically signed by: Marino Arreola M.D. 02/10/2018 4:18 PM Dictated Date/Time: 02/10/2018 4:17 PM
[2018-02-10 16:21] VITALS: BP 135/91; PULSE 82; TEMP 36.9
--- NOTE | 2018-02-10 16:36 | EMERGENCY ROOM VISIT NOTE ---
History Report prepared by Lane: Cristy Ivan Under the Supervision of: Dr. Que King M.D. First contact with patient: 10:03 Chief Complaint: CHEST PAIN Stated Complaint: CHEST PAIN, SLURRED SPEECH History of Present Illness The patient is a 47 year old female who presents to the Emergency Room with complaints of intermittent chest discomfort beginning two months ago. The patient reports her chest pain is primarily on the right side of her chest. She describes her pain as a tightness. She states when she has these episode of chest pain she has a difficulty breathing. The patient's most recent episode of chest pain began at 2 am this morning. With this last episode of chest pain, her pain radiated to her right arm and she was sweating and nauseous. Presently , she denies any nausea. She reports she sometimes gets the chest pain when she is active. She denies any alleviating factors. The patient also reports left leg swelling beginning two months ago. She denies any recent surgery or long trips. The patient states she talked to her PCP a month ago regarding her chest pain who told her to come to the ED. She reports her pain went went away so she never came to the ED. The patient has a family history of heart disease. The patient's mother had a heart attack at the age of 60. The patient reports she had intermittent slurring of her speech beginning over a year ago. She states when she has the episodes of slurred speech she also sometimes has difficulty finding the right words. The patient's last episode of slurred speech was this morning when she was coming into the ED. The patient has a history of hypertension. Source of History: patient Onset: two months ago Position: chest Quality: other (tightness) Timing: intermittent Modifying Factors (Relieving): other (None) Associated Symptoms: + diaphoresis, + chest pain, + SOB, No nausea Review of Systems See HPI for pertinent positives & negatives. A total of 10 systems reviewed and were otherwise negative. Past Medical & Surgical Medical Problems: (1) ally PE, slurry speech comes and goes, and HTN (2) Brain cyst (3) Bronchitis (4) Hypertension Family History Heart disease Social History Smoking Status: Current Every Day Smoker Alcohol Use: none Marital Status: Housing Status: lives alone Occupation Status: unemployed Current/Historical Medications Scheduled Clonidine Hcl (Catapres), 0.1 MG PO DAILY Cyclobenzaprine Hcl (Flexeril), 10 MG PO BID Doxepin (Sinequan), 100 MG PO DAILY Gabapentin (Neurontin), 1,200 MG PO TID Lisinopril (Prinivil), 10 MG PO DAILY Sumatriptan Succinate (Imitrex), 25 MG PO PRN Scheduled PRN Albuterol Hfa (Ventolin Hfa), 2 PUFFS INH Q4 PRN for SOB/Wheezing Allergies Coded Allergies: No Known Allergies (Verified , 02/10/18) Physical Exam Vital Signs Date Time Temp Pulse Resp B/P (MAP) Pulse Ox O2 Delivery O2 Flow Rate FiO2 02/10/18 12:16 83 02/10/18 12:02 86 20 96 02/10/18 12:00 133/92 02/10/18 11:32 84 26 96 02/10/18 11:27 91 24 96 Room Air 02/10/18 11:00 145/86 Room Air 02/10/18 10:57 93 25 95 Room Air 02/10/18 10:45 102 21 143/94 97 02/10/18 10:45 143/94 02/10/18 10:39 90 20 137/107 97 Room Air 02/10/18 10:38 137/107 02/10/18 10:26 Room Air 02/10/18 10:21 97 02/10/18 09:59 36.6 102 20 158/102 98 Room Air Physical Exam Constitutional: Vital signs reviewed. Eyes: Pupils are equal round reactive to light. Conjunctiva are noninjected. ENT: Pharynx is clear without erythema or exudate. Mucous membranes are moist. Neck supple without meningeal signs. Respiratory: Clear to auscultation bilaterally. Breath sounds are equal bilaterally. Cardiovascular: Regular rate and rhythm. No rubs or gallops. GI: Soft, nondistended and nontender. Bowel sounds are present. Musculoskeletal: Mild ankle and dorsal foot edema of left lower extremity. No lower extremity tenderness. Integumentary: No cyanosis. Neurological: The patient is awake and alert. Cranial nerves II-XII are intact. Motor is 5 out of 5 all extremities. Sensation is intact to light touch all extremities. Normal speech. No pronator drift. Psychiatric: Normal affect. Medical Decision & Procedures ER Provider Diagnostic Interpretation: Radiology results as stated below per my review and the radiologist's interpretation: CHEST ONE VIEW PORTABLE FINDINGS: Lung volumes are normal. No pneumothorax or pleural effusion is noted. Mild left basilar opacity favors atelectasis. There is no evidence for pulmonary edema. Mild cardiomegaly is unchanged. IMPRESSION: 1. No acute cardiopulmonary findings. 2. Stable mild cardiomegaly. Electronically signed by: Dani Cardona M.D. HEAD WITHOUT CONTRAST (CT) Findings: The paranasal sinuses and mastoid air cells are clear. The calvarium and skull base are intact. The ventricles and sulci are within normal limits. Low-density region right cerebellum versus technical artifact. Small hypodensity] convexity suggesting an old ischemic process. No evidence for acute intracranial hemorrhage. Impression: 1. Low-density lesion right mid cerebellum versus technical artifact. 2. MRI of the brain is suggested to exclude a significant process. The above report was generated using voice recognition software. It may contain grammatical, syntax or spelling errors. Electronically signed by: Leo Anderson M.D. (CHEST FOR PE) ANGIO WITH FINDINGS: Thoracic aorta is unremarkable in overall caliber. Transaxial images of the right lower lobe demonstrates a small filling defect on image 118 of 288. There are also a small filling defect of a left lower lobe pulmonary vessel image 10/31/1987. There is no evidence for a major central pulmonary embolus. There is minimal atelectatic change left base. Lungs otherwise appear clear. Mild cardiomegaly is present. No significant focal infiltrate or adenopathy. IMPRESSION: 1. Study is positive for small second-order pulmonary emboli involving the right as well as left lower lobe regions. 2. Minimal atelectasis left base. 3. No evidence for main or central pulmonary embolus. The above report was generated using voice recognition software. It may contain grammatical, syntax or spelling errors. Electronically signed by: Leo Anderson M.D. Laboratory Results 02/10/18 10:20 Red Blood Count 4.37, Mean Corpuscular Volume 103.7, Mean Corpuscular Hemoglobin 35.9, Mean Corpuscular Hemoglobin Concent 34.7, Mean Platelet Volume 11.5, Neutrophils (%) (Auto) 50.6, Lymphocytes (%) (Auto) 36.9, Monocytes (%) ( Auto) 9.9, Eosinophils (%) (Auto) 2.3, Basophils (%) (Auto) 0.1, Neutrophils # ( Auto) 4.39, Lymphocytes # (Auto) 3.21, Monocytes # (Auto) 0.86, Eosinophils # ( Auto) 0.20, Basophils # (Auto) 0.01 02/10/18 10:20 Test 02/10/18 10:20 02/10/18 10:24 White Blood Count 8.69 K/uL (4.8-10.8) Red Blood Count 4.37 M/uL (4.2-5.4) Hemoglobin 15.7 g/dL (12.0-16.0) Hematocrit 45.3 % (37-47) Mean Corpuscular Volume 103.7 fL (80-100) Mean Corpuscular Hemoglobin 35.9 pg (25-34) Mean Corpuscular Hemoglobin Concent 34.7 g/dl (32-36) Platelet Count 171 K/uL (130-400) Mean Platelet Volume 11.5 fL (7.4-10.4) Neutrophils (%) (Auto) 50.6 % Lymphocytes (%) (Auto) 36.9 % Monocytes (%) (Auto) 9.9 % Eosinophils (%) (Auto) 2.3 % Basophils (%) (Auto) 0.1 % Neutrophils # (Auto) 4.39 K/uL (1.4-6.5) Lymphocytes # (Auto) 3.21 K/uL (1.2-3.4) Monocytes # (Auto) 0.86 K/uL (0.11-0.59) Eosinophils # (Auto) 0.20 K/uL (0-0.5) Basophils # (Auto) 0.01 K/uL (0-0.2) RDW Standard Deviation 59.3 fL (36.4-46.3) RDW Coefficient of Variation 15.5 % (11.5-14.5) Immature Granulocyte % (Auto) 0.2 % Immature Granulocyte # (Auto) 0.02 K/uL (0.00-0.02) Prothrombin Time 11.5 SECONDS (9.0-12.0) Prothromb Time International Ratio 1.1 (0.9-1.1) Activated Partial Thromboplast Time 26.9 SECONDS (21.0-31.0) Partial Thromboplastin Ratio 1.0 D-Dimer 470 ug/L FEU (0-500) Anion Gap 5.0 mmol/L (3-11) Est Creatinine Clear Calc Drug Dose 133.9 ml/min Estimated GFR () 108.5 Estimated GFR (Non- 93.6 BUN/Creatinine Ratio 6.6 (10-20) Estimated Average Glucose 117 mg/dl Hemoglobin A1c 5.7 % (4.5-5.6) Calcium Level 8.5 mg/dl (8.5-10.1) Bedside D-Dimer > 450 ng/mlFEU (0-450) Bedside Troponin I < 0.030 ng/ml (0-0.045) Laboratory results as reviewed by me. Medications Administered Medications (Trade) Dose Ordered Sig/Chey Route Start Time Stop Time Status Last Admin Dose Admin Nitroglycerin (Nitrostat Tab) 0.4 mg Q5M STAT SL 02/10/18 10:12 02/10/18 10:15 DC 02/10/18 10:39 0.4 MG Heparin Sodium/ Dextrose 1 ea NOW STAT N/A 02/10/18 12:01 02/10/18 12:03 DC 02/10/18 12:30 1 EA Heparin Sodium/ Dextrose (Heparin 25,000 Unit/500ml D5W) 25,000 unit STK-MED ONCE .ROUTE 02/10/18 12:24 02/10/18 12:25 DC 02/10/18 12:27 25,000 UNIT ECG Per My Interpretation Indication: chest pain Rate (beats per minute): 94 Rhythm: normal sinus Findings: other (no ST elevation, no PVC ) ED Course 1005: The patient was evaluated in room A10. A complete history and physical exam was performed. 1012: Ordered Nitroglycerin 0.4 mg SL. 1046: The patient's blood pressure is 143/94. She is feeling a little better after the nitroglycerin. I discussed her D-dimer and she is agreeable to a CT of the chest. 1149: I updated the patient on her CT results. Her heart rate is in the 80s. The patient had a Doppler in November of her left leg for a clot which was negative. I discussed heparin with the patient and she is agreeable. 1200: I spoke with Dr. Ibrahim of [facility]. We discussed the patient and her results. He is agreeable to heparin. The patient will be further evaluated by him. 1201: Ordered Heparin Sodium/Dextrose 1 ea N/A. Medical Decision This is a 47-year-old female who presents with chest pain and slurred speech. Differential diagnosis includes unstable angina, ME, pulmonary embolism, pleurisy, GERD, TIA, intracranial mass. I did perform a limited focused review of portions of the patient's old chart on the electronic medical record. The patient has had no recent pertinent visits to this hospital. I did evaluate the patient as noted above. The patient is presenting with a 2 month history of chest discomfort which has gotten worse recently. She also complains of slurred speech on and off for about over a year. She is currently neurologically intact. She has noticed some left leg swelling which is appreciable on exam. She did state that she had a Doppler exam in November or December which was negative for DVT. IV access was established. The patient was placed on a continuous property assessment monitor. I initially treated the patient with nitroglycerin sublingually but she had minimal to no relief with this. I did order and personally review the patient's 12-lead EKG and chest x-ray as described above. There are no acute ischemic changes on twelve-lead EKG. Chest x-ray is unremarkable. CT of the head was performed which showed no evidence of acute infarct. There were some abnormalities in the cerebellum which does not really fit her symptomatology. MRI was recommended. I did order and review the patient's blood work as noted in the electronic medical record. Troponin is negative but her d-dimer is elevated. I did discuss the test results with her. I did recommend CT scanning of her chest. I did order a CT of the chest. I did review the images myself as well as the radiology report as described above. She does have bilateral pulmonary emboli. I did discuss the test results with the patient. I did recommend heparinization. I did discuss risks and benefits of IV heparin with her. She was agreeable to it. I did give her a bolus as well as an IV drip. I did discuss case with the hospitalist and classification case manager for admission and inpatient MRI. Medication Reconcilliation Current Medication List: was personally reviewed by me Blood Pressure Screening Patient's blood pressure: Elevated blood pressure Blood pressure disposition: Referred to PCP Consults Time Called: 1155 Consulting Physician: Dr. Nunez Returned Call: [address] Ibrahim of [facility]. We discussed the patient and her results. He is agreeable to heparin. The patient will be further evaluated by him. Impression Primary Impression: Bilateral pulmonary embolism Additional Impression: Dysarthria Critical Care I have personally spent 35 minutes of critical care time in the direct management of this patient. This includes bedside care, interpretation of diagnostic studies, and testing, discussion with consultants, patient, and family members, and other required patient management activities. This 35 minutes is in excess of all separately billable procedures. Scribe Attestation The scribe's documentation has been prepared under my direct and personally reviewed by me in its entirety. I confirm that the note above accurately reflects all work, treatment, procedures, and medical decision making performed by me. Departure Information Dispostion Being Evaluated By Hospitalist Referrals Aiden Pérez MD (PCP) Patient Instructions My [facility] Health Problem Qualifiers
[2018-02-10 19:13] VITALS: BP 128/79; PULSE 89; TEMP 36.7; O2SAT 96
[2018-02-10 19:31] LABS: PTT PATIENT 38.8 SECONDS (21.0-31.0)
[2018-02-10 19:44] LABS: CKMB 2.3 ng/ml (0.5-3.6)
[2018-02-10 19:52] VITALS: PULSE 88; O2SAT 95
[2018-02-10] MEDS: CYCLOBENZAPRINE HCL 10 MG TAB PO SCH (21:24)
[2018-02-10] MEDS: ZOLPIDEM TARTRATE 5 MG TAB PO PRN (22:12)
[2018-02-10] MEDS ORDERED: HEPARIN IV BOLUS 7,000 UNIT in SYRINGE 0 ML IV SCH (22:30)
[2018-02-10] MEDS: ACETAMINOPHEN 325 MG TAB PO PRN (23:22)
[2018-02-10 23:37] VITALS: BP 148/78; PULSE 94; TEMP 36.7; O2SAT 96
[2018-02-11] VITALS (9 sets, daily range): BP systolic 110–132; BP diastolic 69–88; PULSE 83–101; TEMP 36.5–36.8; O2SAT 94–99
[2018-02-11 04:28] LABS: BASO % 0.2 %; BASO ABS # 0.02 K/uL (0-0.2); EOS % 2.7 %; EOS ABS # 0.28 K/uL (0-0.5); HEMATOCRIT 43.3 % (37-47); HEMOGLOBIN 14.8 g/dL (12.0-16.0); IG# 0.02 K/uL (0.00-0.02); LYMPH % 33.4 %; LYMPH ABS # 3.42 K/uL (1.2-3.4); MEAN CELL VOLUME 103.8 fL (80-100); MEAN CORPUSCULAR HEMOGLOBIN 35.5 pg (25-34); MEAN CORPUSCULAR HGB CONC 34.2 g/dl (32-36); MEAN PLATELET VOLUME 12.1 fL (7.4-10.4); MONO % 9.3 %; MONO ABS # 0.95 K/uL (0.11-0.59); NEUT % 54.2 %; NEUT ABS # 5.56 K/uL (1.4-6.5); PLATELET COUNT 182 K/uL (130-400); RED CELL DISTRIBUTION WIDTH CV 15.7 % (11.5-14.5); RED CELL DISTRIBUTION WIDTH SD 59.9 fL (36.4-46.3); WHITE BLOOD COUNT 10.25 K/uL (4.8-10.8)
[2018-02-11 04:46] LABS: BLOOD UREA NITROGEN 5 mg/dl (7-18); CALCIUM 8.5 mg/dl (8.5-10.1); CARBON DIOXIDE 24 mmol/L (21-32); GLUCOSE 123 mg/dl (70-99); POTASSIUM 3.7 mmol/L (3.5-5.1); SODIUM 140 mmol/L (136-145)
[2018-02-11 04:51] LABS: CHOLESTEROL 166 mg/dl (0-200); CKMB 2.5 ng/ml (0.5-3.6); LDL CHOLESTEROL CALCULATED 105 mg/dl
[2018-02-11] MEDS: HEPARIN 25,000 UNIT/500ML D5W 500 ML IV SCH ×2 (06:03→17:18)
[2018-02-11] MEDS: ALBUT/IPRATROP 3MG/0.5MG NEB 3 ML VIAL INH SCH ×4 (07:36→19:29)
[2018-02-11] MEDS ORDERED: OPTIRAY 320 IV PRN (08:00)
[2018-02-11] MEDS: GABAPENTIN 600 MG TAB PO SCH ×3 (08:37→19:52)
[2018-02-11] MEDS: CYCLOBENZAPRINE HCL 10 MG TAB PO SCH ×2 (08:37→19:52)
[2018-02-11] MEDS: DOXEPIN HCL 50 MG CAP PO SCH (08:38)
[2018-02-11] MEDS: LISINOPRIL 10 MG TAB PO SCH (08:38)
[2018-02-11] MEDS: CLONIDINE HCL 0.1 MG TAB PO SCH (08:38)
[2018-02-11] MEDS: PANTOprazole SOD 40 MG TAB PO SCH (08:38)
[2018-02-11] MEDS: NICOTINE 7 MG/24 HR TDSY TD SCH (08:39)
[2018-02-11 11:29] LABS: PTT PATIENT 56.9 SECONDS (21.0-31.0)
--- NOTE | 2018-02-11 11:48 | DIAGNOSTIC IMAGING REPORT ---
HEAD ANGIO WITH CONTRAST CLINICAL HISTORY: 47 years-old Female presenting with stroke, chest pain, slurred speech. TECHNIQUE: Multidetector CT angiography of the head was performed after the administration of intravenous contrast. 3-D volumetric and/or maximum intensity projection (MIP) images were subsequently reconstructed for review. IV contrast: 121 mL of Optiray 320. A dose lowering technique was used consistent with the principles of ALARA (as low as reasonably achievable). COMPARISON: Noncontrast CT from the previous day. CT DOSE (mGy.cm): The estimated cumulative dose is 791.73 inclusive of the CTA neck. FINDINGS: Director Medical Writing topogram: Unremarkable. Anterior circulation: Intracranial portions of the internal carotid arteries patent to the level of the termini. Anterior and middle cerebral arteries patent. Anterior communicating artery hypoplastic or aplastic though two A2 segments of the left LALIT are present. Posterior circulation: Codominant vertebral arteries. Intradural portions of the vertebral arteries patent. Posterior inferior cerebellar arteries patent. Basilar artery patent. Anterior inferior cerebellar arteries poorly visualized. Superior cerebellar and posterior cerebral arteries patent. Posterior communicating patent on the right though hypoplastic or aplastic on the left. Dural venous sinuses: Patent. Other: Allowing for the phase of contrast, brain parenchyma within normal limits. Calvarium intact. Upper cervical spine normal. IMPRESSION: 1. No evidence of aneurysm, focal vessel occlusion, or significant stenosis of the intracranial arteries. Electronically signed by: Pool Torres M.D. 02/11/2018 11:47 AM Dictated Date/Time: 02/11/2018 11:41 AM
--- NOTE | 2018-02-11 11:54 | DIAGNOSTIC IMAGING REPORT ---
NECK ANGIO WITH CONTRAST CLINICAL HISTORY: 47 years-old Female presenting with stroke, chest pain, slurred speech. TECHNIQUE: Multidetector CT angiography of the neck was performed after the administration of intravenous contrast. 3-D volumetric and/or maximum intensity projection (MIP) images were subsequently reconstructed for review. IV contrast: 121 mL of Optiray 320. A dose lowering technique was used consistent with the principles of ALARA (as low as reasonably achievable). Stenosis measurements were based on NASCET-like criteria. COMPARISON: None. CT DOSE (mGy.cm): The estimated cumulative dose is 791.73 mGy.cm. FINDINGS: Fabric Lay Out Worker topogram: Unremarkable. Aortic arch: Atherosclerosis of the three-vessel aortic arch. Innominate artery: Patent. Right common carotid artery: Patent. Right internal and external carotid arteries: Right carotid bifurcation patent. Right internal and external carotid arteries widely patent. Left common carotid artery: Patent. Left internal and external carotid arteries: Left carotid bifurcation patent. Left internal and external carotid arteries widely patent. Left subclavian artery: Patent. Vertebral arteries: Codominant vertebral arteries. Origins and courses of the bilateral vertebral arteries patent. Mild tortuosity of the origin of the left vertebral artery, which remains patent. Other: Limited intracranial evaluation within normal limits. Soft tissues of the neck normal allowing for the phase of contrast. Normal cervical spine. Lung apices clear though with minimal emphysematous changes. IMPRESSION: 1. No evidence of dissection, focal vessel occlusion, or significant stenosis of the cervical arteries. Electronically signed by: Pool Torres M.D. 02/11/2018 11:53 AM Dictated Date/Time: 02/11/2018 11:50 AM
--- NOTE | 2018-02-11 14:10 | ECHOCARDIOGRAM REPORT ---
*NOTICE TO RECEIVING [employer] AGENCY This information is strictly Confidential and protected under [place] law. [place] law prohibits you from making any further disclosure of this information unless further disclosure is expressly permitted by the written consent of the person to whom it pertains or is authorized by law. A general authorization for the release of medical or other information is not sufficient for this purpose. Hospital accepts no responsibility if the information is made available to any other person, INCLUDING THE PATIENT. Interpretation Summary * Name: MARCIO FERNANDEZ Study Date: 02/11/2018 07:05 AM BP: 120/79 mmHg * Patient Location: C.2T\S\S242\S\1 HR: 45 * : 1970 (M/d/yyyy) Gender: Female Height: 68 in * Age: 47 yrs Ethnicity: CA Weight: 304 lb * Ordering Physician: Darryl Ibrahim * Referring Physician: Self, Referred * Performed By: Katerina Adamson RCS * * Reason For Study: B/L PE/ HTN / SLURRY SPEECH * BSA: 2.4 m2 * -- Conclusions -- * Left ventricular systolic function is normal. * No regional wall motion abnormalities noted. * Ejection Fraction = 55-60%. * No obvious valvular pathology. * Grade I diastolic dysfunction, (abnormal relaxation pattern). Procedure Details * A complete two-dimensional transthoracic echocardiogram was performed (2D, M-mode, Doppler and color flow Doppler). * The study was technically difficult. * There were technical limitations due to patient'sbody habitus * A contrast injection of Definity was performed to improve assessment of LV function. * Contrast was injected into an intravenous site in the right arm. * One vial of Definity ultrasound contrast was diluted in normal saline to a total volume of 10 ml. A total of '2' ml of solution was administered during imaging. * Lot # [id number] of Definity utilized for procedure. * Expiration date 1 NOV 28. * The attending nurse who injected the contrast agent was CANDIDO TEMPLE RN. Left Ventricle * The left ventricle is normal in size. * There is normal left ventricular wall thickness. * Left ventricular systolic function is normal. * Ejection Fraction = 55-60%. * No regional wall motion abnormalities noted. Right Ventricle * The right ventricle is not well visualized. * The right ventricular systolic function is normal as assessed by tricuspid annular plane systolic excursion (TAPSE) (normal >1.5 cm). Atria * The left atrium is mildly dilated. * Right atrium not well visualized. * No ASD detected; PFO is not assessed. Mitral Valve * The mitral valve is grossly normal. * There is no mitral valve stenosis. * Significant mitral regurgitation is absent. Tricuspid Valve * The tricuspid valve is not well visualized, but is grossly normal. * There is no tricuspid stenosis. * Significant tricuspid regurgitation is absent. Aortic Valve * The aortic valve is not well visualized. * The aortic valve opens well. * No hemodynamically significant valvular aortic stenosis. * There is no significant aortic regurgitation. Pulmonic Valve * The pulmonary valve is not well seen, but the Doppler examination is normal without significant regurgitation or stenosis. Great Vessels * The aortic root is normal size. * The pulmonary is not well visualized. Pericardium/Pleural * There is no pericardial effusion. Great Vessels * Inferior vena cava not well visualized. Left Ventricular Diastolic Function * Grade I diastolic dysfunction, (abnormal relaxation pattern). MMode 2D Measurements and Calculations IVSd 1.7 cm IVSs 2.0 cm LVIDd 3.8 cm LVIDs 3.6 cm LVPWd 1.5 cm LVPWs 1.3 cm IVS/LVPW 1.1 FS 6.3 % EDV(Teich) 62.7 ml ESV(Teich) 53.6 ml EF(Teich) 14.5 % EDV(cubed) 55.7 ml ESV(cubed) 45.7 ml EF(cubed) 17.9 % % IVS thick 21.3 % % LVPW thick -13.27 % LV mass(C)d 232.0 grams LV mass(C)dI 95.0 grams/m\S\2 LV mass(C)s 230.6 grams LV mass(C)sI 94.4 grams/m\S\2 SV(Teich) 9.1 ml SI(Teich) 3.7 ml/m\S\2 SV(cubed) 9.9 ml SI(cubed) 4.1 ml/m\S\2 Ao root diam 3.0 cm Ao root area 7.2 cm\S\2 LA dimension 3.9 cm LA/Ao 1.3 LVOT diam 2.1 cm LVOT area 3.3 cm\S\2 LVAd ap4 35.4 cm\S\2 LVLd ap4 9.0 cm EDV(MOD-sp4) 114.3 ml EDV(sp4-el) 118.2 ml LVAs ap4 25.6 cm\S\2 LVLs ap4 8.1 cm ESV(MOD-sp4) 71.6 ml ESV(sp4-el) 69.1 ml EF(MOD-sp4) 37.3 % EF(sp4-el) 41.6 % LVAd ap2 31.1 cm\S\2 LVLd ap2 9.2 cm EDV(MOD-sp2) 90.0 ml EDV(sp2-el) 89.0 ml LVAs ap2 23.0 cm\S\2 LVLs ap2 7.2 cm ESV(MOD-sp2) 64.6 ml ESV(sp2-el) 62.6 ml EF(MOD-sp2) 28.2 % EF(sp2-el) 29.7 % LVLd %diff 2.7 % EDV(MOD-bp) 101.8 ml LVLs %diff -12.47 % ESV(MOD-bp) 70.6 ml EF(MOD-bp) 30.7 % SV(MOD-sp4) 42.7 ml SI(MOD-sp4) 17.5 ml/m\S\2 SV(MOD-sp2) 25.4 ml SI(MOD-sp2) 10.4 ml/m\S\2 SV(MOD-bp) 31.2 ml SI(MOD-bp) 12.8 ml/m\S\2 SV(sp4-el) 49.2 ml SI(sp4-el) 20.1 ml/m\S\2 SV(sp2-el) 26.4 ml SI(sp2-el) 10.8 ml/m\S\2 Doppler Measurements and Calculations MV E max ernestine 86.8 cm/sec MV A max ernestine 103.1 cm/sec MV E/A 0.84 MV P1/2t max ernestine 97.5 cm/sec MV P1/2t 48.3 msec MVA(P1/2t) 4.6 cm\S\2 MV dec slope 591.0 cm/sec\S\2 MV dec time 0.12 sec Ao V2 max 124.3 cm/sec Ao max PG 6.2 mmHg Ao max PG (full) 2.9 mmHg INDIRA(V,A) 2.4 cm\S\2 INDIRA(V,D) 2.4 cm\S\2 LV V1 max PG 3.2 mmHg LV V1 max 90.0 cm/sec PA V2 max 84.6 cm/sec PA max PG 2.9 mmHg
--- NOTE | 2018-02-11 14:40 | PROGRESS NOTE ---
DATE: 02/11/2018 HOSPITALIST PROGRESS NOTE HISTORY OF PRESENT ILLNESS: Mrs. Vick is a morbidly obese 47-year-old white female with a history of hypertension, bronchitis, anxiety, intracranial cyst, probable COPD, and ongoing tobacco use who presented acutely to [facility] Emergency Room on 02/10/2018 complaining of intermittent chest discomfort over the preceding 2 months, followed by development of intermittent slurred speech. In the Emergency Room, she was noted to have bilateral pulmonary emboli, but has no history of hypercoagulable state. She does report having left leg swelling a few months ago, but an ultrasound at that time was negative. The patient subsequently underwent hypercoagulable workup, most of which is still pending. As for her slurred speech, her imaging studies have been unremarkable, as far as an MRI of the brain, MRA of neck and carotids, MRA of the [place] and intracranial arteries. The patient offers no complaints at this time. She denies any shortness of breath, pleuritic chest pain, or any hemoptysis. MEDICATIONS: 1. Clonidine 0.1 mg daily. 2. Doxepin 100 mg daily. 3. Lisinopril 10 mg daily. 4. Protonix 40 mg daily. 5. NicoDerm CQ 7 mg patch. 6. Flexeril 10 mg p.o. b.i.d. 7. DuoNeb nebulizers q.i.d. 8. Heparin drip. 9. Neurontin 1200 mg t.i.d. 10. DuoNeb nebulizers every 2 hours p.r.n. for wheezing or shortness of breath. 11. Tylenol 650 mg p.o. every 4 hours p.r.n. for pain or fever. 12. Maalox Max every 4 hours p.r.n. 13. Milk of Magnesia p.r.n. 14. Ambien 5 mg at bedtime p.r.n. 15. Zofran 4 mg IV every 6 hours p.r.n. for nausea. 16. MiraLax powder 17 g daily as needed for constipation. 17. Ventolin HFA 2 puffs p.o. every 4 hours p.r.n. 18. Imitrex 25 mg daily as needed for headache. 19. Hydralazine 20 mg IV every 6 hours p.r.n. for hypertension. ALLERGIES: NKDA. PHYSICAL EXAMINATION: VITAL SIGNS: Temperature is 36.8 degrees Celsius, pulse 87 and regular, respiratory rate 18 and unlabored, blood pressure is 126/88, and SPO2 is 96% on room air. GENERAL: The patient is in no acute distress. HEENT: Head is atraumatic, normocephalic. EOMs intact. Sclerae are anicteric. Face is symmetric. No perioral cyanosis. NECK: Without thyromegaly, adenopathy, or JVD. Carotid upstrokes are +2 bilaterally without bruits. CHEST AND LUNGS: With mildly diminished breath sounds throughout, no wheezes, rales, or rhonchi. CARDIOVASCULAR SYSTEM: S1 and S2 are regular, distant, without obvious murmur, gallop, or rub. PMI is nonpalpable. No lifts, heaves, or thrills. ABDOMINAL EXAMINATION: Obese. Bowel sounds present. No masses or tenderness. EXTREMITIES: Without clubbing, cyanosis, or obvious edema. NEUROLOGIC EXAMINATION: The patient is awake, alert, and oriented. Pleasant and cooperative. Normal movement in all 4 extremities. Speech is clear. Answers questions appropriately. LABORATORY DATA: White blood cell count is 10.25. Hemoglobin 14.8 g/dL, hematocrit 43.3%, platelet count 182,000. Sodium is 140 mmol/L, potassium 3.7 mmol/L, BUN is 5 mg/dL, creatinine 0.80 mg/dL. Random glucose 123 mg/dL. Total CK levels are 94 and 103 with respective CK-MB levels are 2.5 and 2.3 ng/mL. Troponin I level is less than 0.015 x2. Total cholesterol is 166 with an HDL cholesterol of 20 and an LDL calculated cholesterol of 105 mg/dL. Homocysteine level is pending. ERIC screen, anticardiolipin antibody, MTHFR mutation, and other hypercoagulable laboratories are pending. CT angiography of the head and neck shows no significant stenosis of the intracranial arteries, no evidence of aneurysms. No significant evidence of vascular disease. The carotid arteries and vertebral basilar system appear to be intact as well. No areas of focal stenosis, no evidence of dissection. MRI of the brain without contrast is unremarkable. ASSESSMENT: 1. Bilateral pulmonary emboli. 2. Slurred speech, resolved. Neurologic workup and imaging unremarkable. 3. Nicotine addiction with ongoing tobacco use. 4. Probable chronic obstructive pulmonary disease. 5. Hypertension, controlled. 6. Hypercoagulable workup is underway. PLAN: 1. The patient remains stable, and is maintaining adequate oxygen saturations on room air. 2. Continue heparin drip for the time being. The patient is a good candidate to go home on Eliquis 10 mg b.i.d. x7 days followed by 5 mg b.i.d. thereafter for at least 3-6 months. If a hypercoagulable state is identified, she will require long-term anticoagulation. 3. We have reassured her that her neurologic evaluation was within normal limits, and that she has patent vessels supplying her brain. 4. Continue Clonidine 0.1 mg daily. 5. Continue Lisinopril 10 mg daily. 6. Based on her cholesterol numbers, she would benefit by being on a statin medication. 7. Continue inhalers and nebulizers as directed. 8. We will continue to follow closely while hospitalized. Attending Attestation - Pt seen/examined, chart reviewed, care plan d/w PARVIZ Hanley. I agree w/ the brennan components of his documentation. Please see my separate note for additional information. Gerard Walker MD [facility]
[2018-02-11] MEDS: ACETAMINOPHEN 325 MG TAB PO PRN (21:37)
[2018-02-12] VITALS (8 sets, daily range): BP systolic 101–134; BP diastolic 68–88; PULSE 90–111; TEMP 36.6–37.1; O2SAT 91–98
[2018-02-12] MEDS: ZOLPIDEM TARTRATE 5 MG TAB PO PRN (00:10)
[2018-02-12 06:09] LABS: BASO % 0.2 %; BASO ABS # 0.02 K/uL (0-0.2); EOS % 1.7 %; EOS ABS # 0.15 K/uL (0-0.5); HEMATOCRIT 41.3 % (37-47); HEMOGLOBIN 13.9 g/dL (12.0-16.0); IG# 0.02 K/uL (0.00-0.02); LYMPH % 22.1 %; MEAN CELL VOLUME 104.6 fL (80-100); MEAN CORPUSCULAR HEMOGLOBIN 35.2 pg (25-34); MEAN CORPUSCULAR HGB CONC 33.7 g/dl (32-36); MEAN PLATELET VOLUME 11.7 fL (7.4-10.4); NEUT % 64.8 %; NEUT ABS # 5.88 K/uL (1.4-6.5); PLATELET COUNT 176 K/uL (130-400); RED CELL DISTRIBUTION WIDTH CV 15.7 % (11.5-14.5); RED CELL DISTRIBUTION WIDTH SD 59.9 fL (36.4-46.3); WHITE BLOOD COUNT 9.07 K/uL (4.8-10.8)
[2018-02-12] MEDS: HEPARIN 25,000 UNIT/500ML D5W 500 ML IV SCH (06:33)
[2018-02-12 06:38] LABS: PTT PATIENT 57.9 SECONDS (21.0-31.0)
[2018-02-12 06:40] LABS: CALCIUM 8.6 mg/dl (8.5-10.1); CREATININE 0.68 mg/dl (0.60-1.20); POTASSIUM 3.8 mmol/L (3.5-5.1)
[2018-02-12] MEDS: ALBUT/IPRATROP 3MG/0.5MG NEB 3 ML VIAL INH SCH ×2 (06:58→11:19)
[2018-02-12] MEDS: PANTOprazole SOD 40 MG TAB PO SCH (08:11)
[2018-02-12] MEDS: CLONIDINE HCL 0.1 MG TAB PO SCH (08:11)
[2018-02-12] MEDS: GABAPENTIN 600 MG TAB PO SCH (08:11)
[2018-02-12] MEDS: DOXEPIN HCL 50 MG CAP PO SCH (08:12)
[2018-02-12] MEDS: LISINOPRIL 10 MG TAB PO SCH (08:12)
[2018-02-12] MEDS: NICOTINE 7 MG/24 HR TDSY TD SCH (08:12)
[2018-02-12] MEDS: CYCLOBENZAPRINE HCL 10 MG TAB PO SCH (08:12)
--- NOTE | 2018-02-12 08:52 | Progress Note ---
Progress Note Date of Service late entry for visit February 11, 2018. Progress Note time - 8170 Attending Attestation & Progress note: Pt seen/examined, chart reviewed, care plan d/w PARVIZ Hanley. I agree w/ the brennan components of his documentation. Pt w/o complaints. Reports she is originally from [place], [place], and has driven there at least 4 times since November. She went to [place] about 2 weeks ago and upon arrival and in the days thereafter she had dyspnea and right chest discomfort. After arriving back to [place] last week her symptoms worsened. No recent surgery. No known family h/o VTE. VSS tele stable gen - obese, NAD neck - no JVD heart - RRR, s1, s2, no murmur lungs - CTA b/l abd - soft, obese, NT, no HSM ext - edema, <1+, left leg; none on right A/P: b/l PEs - subsegmental no O2 requirement or significant symptoms at this point remains on heparin drip and has been stable risk factors for her event - frequent, prolonged car travel (to/from [place] - 10+ hours each way) she has also been fairly immobile at home due to chronic low back pain w/ radiculopathy doubt underlying malignancy agree eliquis may be reasonable; will check with Dr. Alonzo macrocytosis - check TSH, b12, folate d/c home tomorrow? Gerard Walker MD
[2018-02-12] MEDS ORDERED: WARF5TAB90 PO (11:26)
[2018-02-12] MEDS ORDERED: CMD/25 PO (11:26)
[2018-02-12] MEDS ORDERED: ENOX80IN SQ (11:26)
[2018-02-12] MEDS ORDERED: NICO7DIS7 TD (11:26)
--- NOTE | 2018-02-12 11:27 | Discharge Instructions ---
Discharge Instructions Date of Service February 12, 2018. Admission Reason for Admission: Joseph Pe,Slurry Speech Comes And Goes,And Htn Discharge Discharge Diagnosis / Problem: (1) joseph PE, slurry speech comes and goes, and HTN VTE Date & Time Date of VTE Diagnosis: February 10, 2018 Time of VTE Diagnosis: 11:23 Discharge Goals Goal(s): Decrease discomfort, Improve function, Increase independence, Improve disease control, Improve nutritional status, Learn about illness, Diagnostic testing, Therapeutic intervention, Prevent Disease Progression, Specific goals Activity Recommendations Activity Limitations: as noted below . Instructions / Follow-Up Instructions / Follow-Up you have Bilateral pulmonary emboli. I started Lovenox 140mg sq q12, you got one dose in hospital, fist dose at home can be at 10pm then Lovenox sq can be 9am, and 9 pm, you got first does of Coumadin in hospital , need to continue daily you need to check PT/INR in 2 days, report the result to pcp, then your pcp will adjust your coumadine dose your Lovenox should be stop when INR>2, (but Lovenox use at least 3 days for total 5 days, if INR>2 comes sooner) - you need to follow up with your primary care physician in 3-5 days - take medication as instructed, never overdose or any misuse, or take with alcohol, because misuse of medicine may cause organ damage or , call your primary care physician if have questions of medicaitons. - call your primary care physician OR go to local emergency room if has any fever/chill, chest pain, shortness of breathing, nausea/vomiting/abdominal pain , facial droop/slurry speech/local weakness, or if has any questions. - fall precaution - diet as instructed - you need to follow up with your subspecialist - you should understand that it is important to follow up the above instruction , and "not following the above instruction" may cause delayed or missed care of your medical conditions which may cause permanent organ damage and even . Medication Instructions: * Warfarin is a medicine prescribed to prevent blood clots * Warfarin will thin your blood and help prevent new clots * Take your medications exactly as directed * Never skip a dose. Never take a double dose. If you miss a dose, take it as soon as you remember * It is important for your doctor to monitor your prothrombin time (PT). This is a lab test * Keep your appointment for lab tests Risk of Adverse Drug Reactions and Interactions: * Warfarin increases your risk of bleeding * The food you eat and other medications you take can affect how Warfarin works in your body * Ask your doctor about daily aspirin therapy * It is very important to talk with your doctor about all of the other medicines , antibiotics, vitamins or herbal products that you are taking * All of your medication must be approved by your doctor, including new medicines, as well as medicines you have taken before you started taking Warfarin Diet: * In order for Warfarin to work properly, it is important to keep your intake of Vitamin K as consistent as possible * You should avoid any sudden change in Vitamin K intake * Report any significant changes in your diet or weight to your doctor Call your Primary Care doctor if you experience any of the following: * Swelling or Pain in your leg * Sudden, continuous pain deep in a muscle * Pain that worsens when you are active or when you stand still for a long time * Chest Pain * Sudden Shortness of Breath * Rapid or pounding heart beat * Fainting * Dizziness * Cough with blood or bloody sputum * Sweating more than normal * Bruises * Heavy or uncontrolled bleeding * Blood in your urine, stool or vomit * Black or tarry stools Caring for Your Self at Home: * Avoid sitting, standing or lying down for long periods without moving your legs and feet * When traveling by car, stop to get out and move around at least once every 3 hours * On long airplane, train or bus rides, get up and move around when possible * If you can't get up, wiggle your toes and tighten your calves to keep your blood moving Follow Up: It is important for you to keep your follow up appointments with your medical provider. Current Hospital Diet Patient's current hospital diet: AHA Diet (Heart Healthy) Discharge Diet Recommended Diet: AHA Diet (Heart Healthy) Pending Studies Studies pending at discharge: yes List of pending studies: pcp please follow up Laboratory Results Hemoglobin A1c Test 02/10/18 10:20 Range/Units Estimated Average Glucose 117 mg/dl Hemoglobin A1c 5.7 H 4.5-5.6 % Lipid Panel Test 02/11/18 04:07 Range/Units Triglycerides Level 204 H 0-150 mg/dl Cholesterol Level 166 0-200 mg/dl HDL Cholesterol 20 mg/dl Cholesterol/HDL Ratio 8.3 LDL Cholesterol, Calculated 105 mg/dl Medical Emergencies . Who to Call and When: Medical Emergencies: If at any time you feel your situation is an emergency, please call 911 immediately. . Non-Emergent Contact Non-Emergency issues call your: Primary Care Provider . . "Provider Documentation" section prepared by Darryl Ibrahim. . VTE Core Measure Reason no anticoag overlap I/P: Treatment provided - N/A Reason no anticoag overlap @DC: Treatment provided - N/A
[2018-02-12] MEDS ORDERED: WARFARIN SOD 5 MG TAB PO ONE (11:30)
[2018-02-12] MEDS ORDERED: ENOXAPARIN 1 MG/KG SQ SCH (11:30)
[2018-02-12] MEDS ORDERED: ENOXAPARIN 150 MG/1ML SYR SQ SCH (12:00)
--- NOTE | 2018-02-12 15:52 | Discharge Summary ---
Discharge Summary Date of Service February 12, 2018. Discharge Summary Admission Date: February 10, 2018 at 12:27 Discharge Date: February 12, 2018 Discharge Disposition: Home Principal Diagnosis: Bilateral pulmonary emboli. Problems/Secondary Diagnoses: Morbid obesity Immunizations: Have You Had Influenza Vaccine: No History of Tetanus Vaccine?: Yes History of Pneumococcal: No History of Hepatitis B Vaccine: Unknown Procedures: No Consultations: No Medication Reconciliation New Medications: Enoxaparin (Lovenox) 80 Mg/0.8 Ml Inj 140 MG SQ Q12H for 7 Days, SYR Warfarin Sodium (Coumadin) 5 Mg Tab 1 TAB PO DAILY for 90 Days, #90 TAB 1 Refill Nicotine (Nicoderm Cq 7 Mg Patch) 7 Mg/24 Hr Dis 1 PATCH TD QAM for 30 Days Continued Medications: Albuterol Hfa (Ventolin Hfa) 200 Puffs/85548 Mcg Aers 2 PUFFS INH Q4 PRN for SOB/Wheezing, #1 INHALER Clonidine Hcl (Catapres) 0.1 Mg Tab 0.1 MG PO DAILY, TAB Cyclobenzaprine Hcl (Flexeril) 10 Mg Tab 10 MG PO BID, #21 TAB Doxepin (Sinequan) 50 Mg Cap 100 MG PO DAILY, CAP Gabapentin (Neurontin) 600 Mg Tab 1200 MG PO TID, TAB Lisinopril (Prinivil) 10 Mg Tab 10 MG PO DAILY, TAB Sumatriptan Succinate (Imitrex) 25 Mg Tab 25 MG PO PRN, TAB Discharge Exam Doing well, up and walk, no difficulty breathing, denies cough sputum, denies hemoptysis Review of Systems: Constitutional: No fever, No chills, No sweats, No weight loss, No weakness , No fatigue, No problem reported Eyes: No worsening of vision, No eye pain, No redness, No discharge, No diplopia, No problem reported ENT: No hearing loss, No unusual epistaxis, No nasal symptoms, No sore throat, No tinnitus, No dental problems, No trouble swallowing, No problem reported Respiratory: No cough, No sputum, No wheezing, No shortness of breath, No dyspnea on exertion, No dyspnea at rest, No hemoptysis, No problem reported Cardiovascular: No chest pain, No orthopnea, No PND, No edema, No claudication, No palpitations, No problem reported Abdomen: No pain, No nausea, No vomiting, No diarrhea, No constipation, No GI bleeding, No problem reported Musculoskeletal: No joint pain, No muscle pain, No swelling, No calf pain, No problem reported Genitourinary - Female: No dysuria, No urinary frequency, No urinary urgency , No urinary incontinence, No urinary retention, No hematuria, No dysmenorrhea, No menorrhagia, No metrorrhagia, No rash, No vaginal bleeding, No vaginal discharge, No vaginal itching, No vulvodynia, No , No problem reported Neurologic: No memory loss, No paralysis, No weakness, No numbness/tingling , No vertigo, No balance problems, No problem reported Psychiatric: No depression symptoms, No anhedonism, No anxiety, No insomnia , No substance abuse, No problem reported Endocrine: No fatigue, No excessive thirst, No excessive urination, No problem reported Hematologic / Lymphatic: No abnormal bleeding/bruising, No clotting problems , No swollen lymph nodes, No night sweats, No problem reported Integumentary: No rash, No itch, No new/changing skin lesions, No color change, No bleeding, No problem reported Physical Exam: General Appearance: WD/WN, no apparent distress Eyes: normal inspection, PERRL ENT: normal ENT inspection, hearing grossly normal Neck: supple, no adenopathy, thyroid normal Respiratory/Chest: chest non-tender, lungs clear, normal breath sounds, no respiratory distress, no accessory muscle use, + decreased breath sounds Cardiovascular: regular rate, rhythm, no edema, no gallop, no JVD, no murmur , normal peripheral pulses Abdomen / GI: normal bowel sounds, non tender, soft, no organomegaly, no pulsatile mass, normal rectal exam, occult blood negative Extremities: normal inspection, no calf tenderness, normal capillary refill , no pedal edema, normal range of motion Neurologic/Psychiatric: hoe runner II-XII nml as tested, no motor/sensory deficits , alert, normal mood/affect, normal reflexes, oriented x 3 Skin: normal color, warm/dry, no rash Hospital Course A 47-year-old white female admitted on February 10, 2018 because of Bilateral lower lung pulmonary embolism, which likely is acute pulmonary embolismm Exertional chest pain with morbid obesity and history of hypertension need to rule out acute coronary syndrome, Bilateral lower lung pulmonary embolism, which likely is acute pulmonary embolism Has been on heparin drip, has had detailed discussion and counseling about risk and benefit of anticoagulation, there was no DVT bilateral lower extremity Doppler ultrasound Discussed with Dr. Estrella, the best for patient of the blood thinner will be Lovenox bridging for Coumadin , there was not enough evidence to support Norval oral anticoagulant such as adequate would be sufficient for the treatment of PE in patients case of BMI more than 46 and body weight up to 138kg . Has a lot of education with patient about anticoagulation, risk and benefit, and call to patient's pharmacy to get her for the co-pay, phone arrange on the medicine to be available during the weekend, and also regarding to the lab testing PT/INR, advised her to have PT/INR checking in 2 days and report the results to patient' s PCP Dr. Pérez. Dr. Pérez, please follow-up, and there is options for patient to go to the Coumadin clinic with Dr. Alonzo she knew the case already , if you feel would like to exertional chest pain with morbid obesity and history of hypertension, cardiac enzyme troponin was negative 2 sets, has rule out acute coronary syndrome,, but otherwise patient to follow-up with PCP for further evaluation if needed if has any more symptoms of chest pain Slurry speech which comes and goes prior to admission. The patient has no symptoms now nor any deficits upon admission. Combined with the head CT results , there were lesion artifacts in the right mid cerebellum, brain MRI was done, the results was unremarkable MRI of the brain. The possible right cerebellar abnormality on head CT of February 10, 2018 was artifactual. No acute infarct. Accelerated hypertension, resolved Tobacco abuse disorder, has consult quit smoking and discharge home with nicotine patch Anxiety, Migraine, History of bronchitis, Neuropathy. The conditions are stable and advised her to follow-up with PCP Discharge instruction you have Bilateral pulmonary emboli. I started Lovenox 140mg sq q12, you got one dose in hospital, fist dose at home can be at 10pm then Lovenox sq can be 9am, and 9 pm, you got first does of Coumadin in hospital , need to continue daily you need to check PT/INR in 2 days, report the result to pcp, then your pcp will adjust your coumadine dose your Lovenox should be stop when INR>2, (but Lovenox use at least 3 days for total 5 days, if INR>2 comes sooner) - you need to follow up with your primary care physician in 3-5 days - take medication as instructed, never overdose or any misuse, or take with alcohol, because misuse of medicine may cause organ damage or , call your primary care physician if have questions of medicaitons. - call your primary care physician OR go to local emergency room if has any fever/chill, chest pain, shortness of breathing, nausea/vomiting/abdominal pain , facial droop/slurry speech/local weakness, or if has any questions. - fall precaution - diet as instructed - you need to follow up with your subspecialist - you should understand that it is important to follow up the above instruction , and "not following the above instruction" may cause delayed or missed care of your medical conditions which may cause permanent organ damage and even . Total Time Spent: Greater than 30 minutes This includes examination of the patient, discharge planning, medication reconciliation, and communication with other providers. Discharge Instructions Please refer to the electronic Patient Visit Report (Discharge Instructions) for additional information. Follow-Up 11 Additional Copies To Aiden Pérez MD
[2018-02-13] MEDS ORDERED: WARFARIN SOD 5 MG TAB PO SCH (16:00)
== END 2018-02-12 13:05 | disposition home or self-care (01) | DRG 176 ==
LOC: C.EDB 09:58 → C.2T 12:27 → ENRESERV 12:42
PROVIDERS: ADMIT Hospitalist; ATTEND Hospitalist
DX: I26.99 Other pulmonary embolism without acute cor pulmonale (principal); Z68.42 Body mass index [BMI] 45.0-49.9, adult; I10 Essential (primary) hypertension; R47.1 Dysarthria and anarthria; E66.01 Morbid (severe) obesity due to excess calories; F41.9 Anxiety disorder, unspecified; R47.81 Slurred speech; J44.9 Chronic obstructive pulmonary disease, unspecified; D75.89 Other specified diseases of blood and blood-forming organs; G89.29 Other chronic pain; F17.200 Nicotine dependence, unspecified, uncomplicated; M54.5 Low back pain; Z82.49 Family history of ischemic heart disease and other diseases of the circulatory system

== ENCOUNTER 2018-02-20 15:26 | Emergency (ER) | payer OTHER ==
[~2018-02-20] VITALS: Ht 172.7 cm; Wt 137.0 kg
[~2018-02-20 15:26] MED LIST changes: +ENOX80IN SQ; +NICO7DIS7 TD; +SUMA25TA12 PO; +VNTHFA/IN INH; +WARF5TAB90 PO
[2018-02-20 15:30] VITALS: TEMP 36.8
[2018-02-20 15:54] VITALS: O2SAT 95; Ht 172.7 cm; Wt 137.0 kg
[2018-02-20] MEDS ORDERED: WARF-284 PO (15:57)
--- NOTE | 2018-02-20 16:11 | DIAGNOSTIC IMAGING REPORT ---
CHEST ONE VIEW PORTABLE HISTORY: EVALUATE WEAKNESS COMPARISON: Chest 02/10/2018. FINDINGS: The heart remains mildly enlarged. No pleural effusions. No pneumothorax. No lung consolidations to suggest pneumonia. Mild interstitial thickening which may be technical. No evidence for pulmonary edema. IMPRESSION: No significant change compared to the prior study. No acute process. Electronically signed by: Luis F Mixon M.D. 02/20/2018 4:09 PM Dictated Date/Time: 02/20/2018 4:09 PM
[2018-02-20 16:19] LABS: BASO % 0.3 %; BASO ABS # 0.03 K/uL (0-0.2); EOS % 2.4 %; EOS ABS # 0.21 K/uL (0-0.5); HEMATOCRIT 43.1 % (37-47); HEMOGLOBIN 15.2 g/dL (12.0-16.0); IG# 0.02 K/uL (0.00-0.02); LYMPH % 27.5 %; LYMPH ABS # 2.42 K/uL (1.2-3.4); MEAN CELL VOLUME 101.9 fL (80-100); MEAN CORPUSCULAR HEMOGLOBIN 35.9 pg (25-34); MEAN CORPUSCULAR HGB CONC 35.3 g/dl (32-36); MEAN PLATELET VOLUME 11.8 fL (7.4-10.4); MONO % 7.8 %; MONO ABS # 0.69 K/uL (0.11-0.59); NEUT % 61.8 %; NEUT ABS # 5.43 K/uL (1.4-6.5); PLATELET COUNT 219 K/uL (130-400); RED CELL DISTRIBUTION WIDTH CV 14.9 % (11.5-14.5); RED CELL DISTRIBUTION WIDTH SD 56.4 fL (36.4-46.3)
--- NOTE | 2018-02-20 16:20 | EMERGENCY ROOM VISIT NOTE ---
History Report prepared by Lane: Brandi Adam Under the Supervision of: Dr. Benson Felix M.D. First contact with patient: 15:40 Chief Complaint: CHEST PAIN Stated Complaint: CHEST PAINS, SHORTNESS OF BREATH, HEADACHE History of Present Illness The patient is a 47 year old female who presents to the Emergency Room with complaints of persistent chest pain starting 2 days ago. She describes her pain as a tightness in the middle of her chest. She currently rates her discomfort as an 8/10 in severity. She has felt SOB. The patient was discharged from the hospital 1 week ago after being admitted for PE. She took her last Lovenox shot this morning and she is on 7.5 mg of Coumadin. Her last INR was low and her Coumadin was increased. She had a repeat INR drawn today, but has not received her results. She has had some swelling in her legs. She started having a headache today with blurry vision. She has a history of migraines, but states that her headache today is completely different. She thinks that she has a yeast infection under her breast. Pt denies LOC, fevers, chills, diaphoresis, neck pain, tearing pain radiating to the back, personal history or family history of aneurysm, uncontrolled hypertension, coagulation abnormalities, prolonged travel, recent surgery or immobilization, nausea, vomiting, abdominal pain, melena, hematochezia, urinary symptoms, numbness, weakness, lymphadenopathy, or other complaints. Source of History: patient Onset: 2 days ago Position: chest Symptom Intensity: 8/10 Quality: other (tightness) Timing: other (persistent) Associated Symptoms: + headache, + SOB, + rash Note: Pt reports vision changes. Review of Systems See HPI for pertinent positives and negatives. A total of ten systems were reviewed and were otherwise negative. Past Medical & Surgical Medical Problems: (1) ally PE, slurry speech comes and goes, and HTN (2) Brain cyst (3) Bronchitis (4) Hypertension Family History Cancer Diabetes mellitus Heart disease Hypertension Social History Smoking Status: Current Every Day Smoker Alcohol Use: none Marital Status: Housing Status: lives with family Occupation Status: unemployed Current/Historical Medications Scheduled Clonidine Hcl (Catapres), 0.1 MG PO DAILY Cyclobenzaprine Hcl (Flexeril), 10 MG PO BID Doxepin (Sinequan), 100 MG PO DAILY Gabapentin (Neurontin), 1,200 MG PO TID Lisinopril (Prinivil), 10 MG PO DAILY Nicotine (Nicoderm Cq 7 Mg Patch), 1 PATCH TD QAM Sumatriptan Succinate (Imitrex), 25 MG PO PRN Warfarin Sodium (Warfarin Sodium), 7.5 MG PO DAILY Scheduled PRN Albuterol Hfa (Ventolin Hfa), 2 PUFFS INH Q4 PRN for SOB/Wheezing Allergies Coded Allergies: No Known Allergies (Verified , 02/20/18) Physical Exam Vital Signs Date Time Temp Pulse Resp B/P (MAP) Pulse Ox O2 Delivery O2 Flow Rate FiO2 02/20/18 18:33 103 16 120/73 94 02/20/18 17:33 99 22 122/77 95 Room Air 02/20/18 16:43 Room Air 02/20/18 16:36 103 02/20/18 15:54 95 Room Air 02/20/18 15:30 36.8 104 20 140/81 95 Room Air Physical Exam GENERAL: Awake, alert, well-appearing, in no distress HENT: Normocephalic, atraumatic. Oropharynx unremarkable. EYES: Normal conjunctiva. Sclera non-icteric. NECK: Supple. No nuchal rigidity. FROM. No masses. RESPIRATORY: Clear to auscultation. No wheezes. No rales. Normal respiratory effort. CARDIAC: Borderline tachycardic rate. Normal rhythm. No murmurs. No rubs. Extremities warm and well perfused. Pulses equal. No JVD. GI: Soft, non-distended. No tenderness to palpation. No rebound or guarding. No masses. RECTAL: Deferred. MUSCULOSKELETAL: Atraumatic. Chest examination reveals no tenderness. The back is symmetrical on inspection without obvious abnormality. There is no CVA tenderness to palpation. No joint edema. LOWER EXTREMITIES: Calves are equal size bilaterally and non-tender. No edema. No discoloration. NEURO: Normal sensorium. No sensory or motor deficits noted. SKIN: There is a henny like rash under the right breast. Mild erythema. No cellulitis. No abscesses. No jaundice noted. Medical Decision & Procedures ER Provider Diagnostic Interpretation: Radiology results as stated below per my review and radiologist interpretation: CHEST ONE VIEW PORTABLE HISTORY: EVALUATE WEAKNESS COMPARISON: Chest 02/10/2018. FINDINGS: The heart remains mildly enlarged. No pleural effusions. No pneumothorax. No lung consolidations to suggest pneumonia. Mild interstitial thickening which may be technical. No evidence for pulmonary edema. IMPRESSION: No significant change compared to the prior study. No acute process. Electronically signed by: Luis F Mixon M.D. 02/20/2018 4:09 PM Dictated Date/Time: 02/20/2018 4:09 PM HEAD WITHOUT CONTRAST (CT) CLINICAL HISTORY: 47 years-old Female presenting with EVALUATE WEAKNESS. TECHNIQUE: Multidetector CT imaging of the head was performed without the use of intravenous contrast. IV contrast: None. A dose lowering technique was used consistent with the principles of ALARA (as low as reasonably achievable). COMPARISON: 02/10/2018. CT DOSE (mGy.cm): The estimated cumulative dose is 800.40 mGycm. FINDINGS: County Auditor topogram: Unremarkable. Ventricles and sulci normal in size. Brain parenchyma normal in appearance with preserved kilpatrick-white differentiation. No mass effect or midline shift. No hemorrhage or acute territorial infarct. No extra-axial fluid collection. Paranasal sinuses and mastoid air cells clear. Calvarium intact. IMPRESSION: 1. No acute intracranial abnormality. Electronically signed by: Pool Torres M.D. 02/20/2018 4:25 PM Dictated Date/Time: 02/20/2018 4:23 PM Laboratory Results 02/20/18 16:05 Red Blood Count 4.23, Mean Corpuscular Volume 101.9, Mean Corpuscular Hemoglobin 35.9, Mean Corpuscular Hemoglobin Concent 35.3, Mean Platelet Volume 11.8, Neutrophils (%) (Auto) 61.8, Lymphocytes (%) (Auto) 27.5, Monocytes (%) ( Auto) 7.8, Eosinophils (%) (Auto) 2.4, Basophils (%) (Auto) 0.3, Neutrophils # ( Auto) 5.43, Lymphocytes # (Auto) 2.42, Monocytes # (Auto) 0.69, Eosinophils # ( Auto) 0.21, Basophils # (Auto) 0.03 02/20/18 16:05 Test 02/20/18 16:05 02/20/18 16:25 White Blood Count 8.80 K/uL (4.8-10.8) Red Blood Count 4.23 M/uL (4.2-5.4) Hemoglobin 15.2 g/dL (12.0-16.0) Hematocrit 43.1 % (37-47) Mean Corpuscular Volume 101.9 fL (80-100) Mean Corpuscular Hemoglobin 35.9 pg (25-34) Mean Corpuscular Hemoglobin Concent 35.3 g/dl (32-36) Platelet Count 219 K/uL (130-400) Mean Platelet Volume 11.8 fL (7.4-10.4) Neutrophils (%) (Auto) 61.8 % Lymphocytes (%) (Auto) 27.5 % Monocytes (%) (Auto) 7.8 % Eosinophils (%) (Auto) 2.4 % Basophils (%) (Auto) 0.3 % Neutrophils # (Auto) 5.43 K/uL (1.4-6.5) Lymphocytes # (Auto) 2.42 K/uL (1.2-3.4) Monocytes # (Auto) 0.69 K/uL (0.11-0.59) Eosinophils # (Auto) 0.21 K/uL (0-0.5) Basophils # (Auto) 0.03 K/uL (0-0.2) RDW Standard Deviation 56.4 fL (36.4-46.3) RDW Coefficient of Variation 14.9 % (11.5-14.5) Immature Granulocyte % (Auto) 0.2 % Immature Granulocyte # (Auto) 0.02 K/uL (0.00-0.02) Prothrombin Time 26.2 SECONDS (9.0-12.0) Prothromb Time International Ratio 2.5 (0.9-1.1) Activated Partial Thromboplast Time 36.8 SECONDS (21.0-31.0) Partial Thromboplastin Ratio 1.4 Anion Gap 8.0 mmol/L (3-11) Est Creatinine Clear Calc Drug Dose 125.1 ml/min Estimated GFR () 100.3 Estimated GFR (Non- 86.6 BUN/Creatinine Ratio 5.0 (10-20) Calcium Level 8.9 mg/dl (8.5-10.1) Magnesium Level 1.9 mg/dl (1.8-2.4) Total Bilirubin 0.3 mg/dl (0.2-1) Direct Bilirubin 0.1 mg/dl (0-0.2) Aspartate Amino Transf (AST/SGOT) 92 U/L (15-37) Alanine Aminotransferase (ALT/SGPT) 72 U/L (12-78) Alkaline Phosphatase 103 U/L (45-117) Total Creatine Kinase 75 U/L (26-192) Creatine Kinase MB 2.1 ng/ml (0.5-3.6) Creatine Kinase MB Ratio 2.8 (0-3.0) Troponin I < 0.015 ng/ml (0-0.045) Total Protein 7.4 gm/dl (6.4-8.2) Albumin 3.1 gm/dl (3.4-5.0) Lipase 80 U/L (73-393) Thyroid Stimulating Hormone (TSH) 1.330 uIu/ml (0.300-4.500) Urine Color YELLOW Urine Appearance CLOUDY (CLEAR) Urine pH 6.0 (4.5-7.5) Urine Specific [place] 1.014 (1.000-1.030) Urine Protein 1+ (NEG) Urine Glucose (UA) NEG (NEG) Urine Ketones NEG (NEG) Urine Occult Blood 3+ (NEG) Urine Nitrite NEG (NEG) Urine Bilirubin NEG (NEG) Urine Urobilinogen NEG (NEG) Urine Leukocyte Esterase MODERATE (NEG) Urine WBC (Auto) >30 /hpf (0-5) Urine RBC (Auto) >30 /hpf (0-4) Urine Hyaline Casts (Auto) 5-10 /lpf (0-5) Urine Epithelial Cells (Auto) >30 /lpf (0-5) Urine Bacteria (Auto) 1+ (NEG) Urine Yeast (Auto) (NONE PRSENT) Laboratory results reviewed by me Medications Administered Medications (Trade) Dose Ordered Sig/Chey Route Start Time Stop Time Status Last Admin Dose Admin Nystatin (Mycostatin Crm) 1 appln NOW STAT EXT 02/20/18 17:40 02/20/18 17:41 DC 02/20/18 17:59 1 APPLN Acetaminophen/ Butalbital/ Caffeine (Fioricet Tab) 1 tab NOW STAT PO 02/20/18 17:43 02/20/18 17:44 DC 02/20/18 17:59 1 TAB ECG Per My Interpretation Indication: chest pain Rate (beats per minute): 104 Rhythm: sinus tachycardia Findings: no acute ischemic change, other (poor R wave progression) ED Course 1542: The patient was evaluated in room B9. A complete history and physical exam was performed. 1729: Benadryl Inj 25 mg IV, Compazine Inj 10 mg IV. 1738: I reevaluated the patient. Discussed results and discharge instructions: She verbalized understanding and agreement. The patient is ready for discharge. 1740: Nystatin 1 appln EXT. 1743: Fioricet Tab 1 tab PO. Medical Decision Prior records/ancillary studies reviewed. The patient was discharged on Coumadin and Lovenox for recent bilateral pulmonary emboli. Triage Nursing notes reviewed and agree them. The patient's history was concerning for chest pain and headache. Differential diagnosis: Etiologies such as cardiac ischemia, aortic dissection, pulmonary embolism, pneumonia, pneumothorax, musculoskeletal, infections, pericarditis, myocarditis , esophageal rupture, gastrointestinal, migraine, intracranial bleeding, as well as others were entertained. Physical examination: As above. Nonfocal examination. The patient does have a mild yeast infection under the right breast. ER treatment provided: Benadryl and Compazine were ordered but held because the patient drove herself to the emergency department Topical nystatin provided 1 Fioricet given to go for her headache. On reassessment the patient felt better. Diagnostic interpretation by me: The electrocardiogram was negative for pathologic change. The labs revealed an unremarkable CBC and chemistry panel. INR was therapeutic. Imaging studies: CT scan and chest x-ray as above She has a long history of migraine headache. She has no signs of infection or bleeding. Clinically the patient is doing well. She has had chest pain for some time and has negative markers and unremarkable laboratory test. She is therapeutic and her chest x-ray is negative. Her pain is likely related to her PEs clinically she is doing well at this time. She will follow up with her primary office for continued care. Medication Reconcilliation Current Medication List: was personally reviewed by me Blood Pressure Screening Patient's blood pressure: Elevated blood pressure Blood pressure disposition: Referred to PCP Impression Primary Impression: Substernal precordial chest pain Additional Impression: Headache Scribe Attestation The scribe's documentation has been prepared under my direction and personally reviewed by me in its entirety. I confirm that the note above accurately reflects all work, treatment, procedures, and medical decision making performed by me. Departure Information Dispostion Home / Self-Care Referrals Aiden Pérez MD (PCP) Forms Call Back Authorization, HOME CARE DOCUMENTATION FORM, IMPORTANT VISIT INFORMATION Patient Instructions My [facility] [address] Additional Instructions Rest today in a quiet, peaceful, dark environment and get a full 8-10 hrs of sleep tonight. Avoid loud noises, smoke/smoking, alcohol, bright lights, stress, or physical exertion today to minimize the chance the headache may return. Continue current medications. If the headache persist you can take the dose of Fioricet provided in the ER. Do not drive if taking. Nystatin cream to the affected area under the breast twice a day for 7-10 days. Acetaminophen(Tylenol) may be used for fever or pain. Use 1000mg every six hours as needed. Avoid using more than 4000mg in a 24 hour period. Return to the ER for passing out, worsening headache, vision problems, neck stiffness/pain, fevers, vomiting, worsening of your condition, or as needed. Follow up with your primary physician in 1 to 2 days for a recheck of your current condition. Problem Qualifiers
--- NOTE | 2018-02-20 16:27 | DIAGNOSTIC IMAGING REPORT ---
HEAD WITHOUT CONTRAST (CT) CLINICAL HISTORY: 47 years-old Female presenting with EVALUATE WEAKNESS. TECHNIQUE: Multidetector CT imaging of the head was performed without the use of intravenous contrast. IV contrast: None. A dose lowering technique was used consistent with the principles of ALARA (as low as reasonably achievable). COMPARISON: 02/10/2018. CT DOSE (mGy.cm): The estimated cumulative dose is 800.40 mGycm. FINDINGS: Pump Station Operator topogram: Unremarkable. Ventricles and sulci normal in size. Brain parenchyma normal in appearance with preserved kilpatrick-white differentiation. No mass effect or midline shift. No hemorrhage or acute territorial infarct. No extra-axial fluid collection. Paranasal sinuses and mastoid air cells clear. Calvarium intact. IMPRESSION: 1. No acute intracranial abnormality. Electronically signed by: Pool Torres M.D. 02/20/2018 4:25 PM Dictated Date/Time: 02/20/2018 4:23 PM
[2018-02-20 16:30] LABS: INR 2.5 (0.9-1.1); PTT PATIENT 36.8 SECONDS (21.0-31.0)
[2018-02-20 16:39] LABS: ALBUMIN 3.1 gm/dl (3.4-5.0); ALT/SGPT 72 U/L (12-78); AST/SGOT 92 U/L (15-37); BLOOD UREA NITROGEN 4 mg/dl (7-18); CALCIUM 8.9 mg/dl (8.5-10.1); CARBON DIOXIDE 23 mmol/L (21-32); GLUCOSE 185 mg/dl (70-99); LIPASE 80 U/L (73-393); POTASSIUM 3.9 mmol/L (3.5-5.1); SODIUM 139 mmol/L (136-145)
[2018-02-20 16:48] LABS: ALKALINE PHOSPHATASE 103 U/L (45-117); CKMB 2.1 ng/ml (0.5-3.6); TOTAL PROTEIN 7.4 gm/dl (6.4-8.2)
[2018-02-20] MEDS ORDERED: PROCHLORPERAZINE 5 MG/ML 2 ML VIAL IV STA (17:29)
[2018-02-20] MEDS ORDERED: DiphenhydrAMINE HCL 50 MG/ML VIAL IV STA (17:29)
[2018-02-20] MEDS ORDERED: NYSTATIN CR 15 GM TUBE EXT STA (17:40)
[2018-02-20] MEDS ORDERED: BUTALBITAL/ACETAMIN/CAFFEINE TAB PO STA (17:43)
[2018-02-20 18:33] VITALS: BP 120/73; PULSE 103; O2SAT 94
== END 2018-02-20 18:34 | disposition home or self-care (01) ==
LOC: C.EDB 15:26
DX: R07.2 Precordial pain (principal); R51 Headache; B37.9 Candidiasis, unspecified; I10 Essential (primary) hypertension; Z86.711 Personal history of pulmonary embolism; Z79.01 Long term (current) use of anticoagulants; Z86.69 Personal history of other diseases of the nervous system and sense organs; F17.200 Nicotine dependence, unspecified, uncomplicated; Z82.49 Family history of ischemic heart disease and other diseases of the circulatory system

== ENCOUNTER 2018-04-29 22:54 | Inpatient (IN) | payer OTHER ==
[~2018-04-29] VITALS: Ht 172.7 cm; Wt 125.0 kg
[~2018-04-29 22:54] MED LIST changes: +CMD5 PO; -ENOX80IN SQ; +IPRA-64 INH; -NICO7DIS7 TD; -WARF5TAB90 PO
[2018-04-29] MEDS ORDERED: TRAMADOL HCL 50 MG TAB PO STA (23:21)
[2018-04-29 23:38] LABS: BASO % 0.2 %; BASO ABS # 0.02 K/uL (0-0.2); EOS % 1.9 %; EOS ABS # 0.19 K/uL (0-0.5); HEMATOCRIT 45.8 % (37-47); HEMOGLOBIN 15.7 g/dL (12.0-16.0); IG# 0.03 K/uL (0.00-0.02); LYMPH % 28.8 %; LYMPH ABS # 2.85 K/uL (1.2-3.4); MEAN CELL VOLUME 99.8 fL (80-100); MEAN CORPUSCULAR HEMOGLOBIN 34.2 pg (25-34); MEAN CORPUSCULAR HGB CONC 34.3 g/dl (32-36); MEAN PLATELET VOLUME 12.4 fL (7.4-10.4); MONO % 7.1 %; NEUT % 61.7 %; NEUT ABS # 6.11 K/uL (1.4-6.5); PLATELET COUNT 193 K/uL (130-400); RED CELL DISTRIBUTION WIDTH CV 16.4 % (11.5-14.5); RED CELL DISTRIBUTION WIDTH SD 59.4 fL (36.4-46.3)
--- NOTE | 2018-04-29 23:42 | EMERGENCY ROOM VISIT NOTE ---
History Report prepared by Lane: Feliciano Garza Under the Supervision of: Dr. Darryl Sin M.D. First contact with patient: 23:12 Chief Complaint: ABDOMINAL PAIN Stated Complaint: R SIDE CHEST PAIN History of Present Illness The patient is a 47 year old female who presents to the Emergency Room with complaints of worsening right upper quadrant abdominal pain that began at 0300. She rates her pain as a 9/10 in severity. The patient states that for the last two days she has not had any appetite. She states that while she was sleeping, she developed right upper quadrant abdominal pain underneath her breast that woke her up at 0300. The patient states that at 1600, she developed right shoulder and right back pain that has been worsening. She notes she has also been experiencing intermittent chills. The patient reports she has been coughing recently. She states that she is currently experiencing a headache. The patient denies urinary burning, hemoptysis, and loss of consciousness. She reports she has been taking Tylenol every 4 hours for her pain. The patient states that she no longer takes Tramadol. She states that she is on Coumadin and she is supposed to have her INR checked this week. The patient states that her last INR was 5.8. She states that she is currently out of Coumadin. Source of History: patient Onset: 0300 Position: abdomen (RUQ) Symptom Intensity: 9/10 Timing: worsening Modifying Factors (Relieving): tylenol Associated Symptoms: + chills, + headache, + cough, + back pain, No LOC, No urinary symptoms Note: Associated symptoms: right shoulder pain Denies: hemoptysis Review of Systems See HPI for pertinent positives & negatives. A total of 10 systems reviewed and were otherwise negative. Past Medical & Surgical Medical Problems: (1) ally PE, slurry speech comes and goes, and HTN (2) Brain cyst (3) Bronchitis (4) Hypertension Family History Cancer Diabetes mellitus Heart disease Hypertension Social History Smoking Status: Former Smoker Alcohol Use: none Drug Use: none Marital Status: Housing Status: lives with family Occupation Status: unemployed Current/Historical Medications Scheduled Clonidine Hcl (Catapres), 0.1 MG PO DAILY Cyclobenzaprine Hcl (Flexeril), 10 MG PO BID Doxepin (Sinequan), 100 MG PO DAILY Gabapentin (Neurontin), 1,200 MG PO TID Lisinopril (Prinivil), 10 MG PO DAILY Warfarin Sod (Coumadin), 5 MG PO DAILY Scheduled PRN Albuterol Hfa (Ventolin Hfa), 2 PUFFS INH Q4 PRN for SOB/Wheezing Ipratropium-Albuterol (Duoneb), 1 TREATMENT INH Q4H PRN for Shortness of Breath Sumatriptan Succinate (Imitrex), 25 MG PO DIRECTED PRN for Migraine Allergies Coded Allergies: No Known Allergies (Verified , 04/04/18) Physical Exam Vital Signs Date Time Temp Pulse Resp B/P (MAP) Pulse Ox O2 Delivery O2 Flow Rate FiO2 04/30/18 01:40 88 18 154/75 96 Room Air 04/30/18 00:25 102 20 154/75 98 Room Air 04/29/18 23:07 36.9 107 20 140/70 99 Room Air Physical Exam GENERAL: Patient is well appearing and in mild acute distress. EYES: No scleral icterus, unremarkable pupils. ENT: Mucous membranes moist, no nasal congestion. NECK: No masses appreciated, no meningismus, trachea is midline. RESPIRATORY: No dyspnea. Clear to auscultation and equal bilaterally. No wheeze , no rhonchi. CARDIOVASCULAR: Regular rate and rhythm. No murmurs, rubs, gallops appreciated. GASTROINTESTINAL: Abdomen soft, vague tenderness over right upper quadrant, no peritonitis. Bowel sounds positive. No masses appreciated. CHEST: Vague tenderness of right upper chest. BACK: No midline tenderness, no CVA tenderness EXTREMITIES: Normal motion all extremities, no cyanosis, no edema. Vague tenderness of right shoulder blade. NEUROLOGIC: Alert and oriented, no acute motor or sensory deficits, no focal weakness, cranial nerves grossly intact. SKIN: No rash, no jaundice, no diaphoresis. Medical Decision & Procedures ER Provider Diagnostic Interpretation: X ray results are stated below per my interpretation: Chest: 1 view: No infiltrate, no effusion, normal cardiac border. Small scarring/atelectasis of left lower lobe similar to previous x-ray. Stat Rad Radiology results and stated below per my review and radiologist interpretation: US GALLBLADDER: Prior CT 03/29/18 Multiple small mobile gallbladder stones within mildly distended gallbladder. Positive sonographic Rothman sign. No gallbladder wall thickening or pericholecystic fluid. Correlate for cholecystitis. Mildly dilated common duct up to 8 mm. Correlate also for common duct obstruction. No obvious intrahepatic biliary dilation. Mildly enlarged/echogenic liver may reflect fatty liver. Radiologist: Dayna Reed M.D. Laboratory Results 04/29/18 23:28 Red Blood Count 4.59, Mean Corpuscular Volume 99.8, Mean Corpuscular Hemoglobin 34.2, Mean Corpuscular Hemoglobin Concent 34.3, Mean Platelet Volume 12.4, Neutrophils (%) (Auto) 61.7, Lymphocytes (%) (Auto) 28.8, Monocytes (%) (Auto) 7.1, Eosinophils (%) (Auto) 1.9, Basophils (%) (Auto) 0.2, Neutrophils # (Auto) 6.11, Lymphocytes # (Auto) 2.85, Monocytes # (Auto) 0.70, Eosinophils # (Auto) 0.19, Basophils # (Auto) 0.02 04/29/18 23:28 Test 04/29/18 23:28 04/30/18 00:05 White Blood Count 9.90 K/uL (4.8-10.8) Red Blood Count 4.59 M/uL (4.2-5.4) Hemoglobin 15.7 g/dL (12.0-16.0) Hematocrit 45.8 % (37-47) Mean Corpuscular Volume 99.8 fL (80-100) Mean Corpuscular Hemoglobin 34.2 pg (25-34) Mean Corpuscular Hemoglobin Concent 34.3 g/dl (32-36) Platelet Count 193 K/uL (130-400) Mean Platelet Volume 12.4 fL (7.4-10.4) Neutrophils (%) (Auto) 61.7 % Lymphocytes (%) (Auto) 28.8 % Monocytes (%) (Auto) 7.1 % Eosinophils (%) (Auto) 1.9 % Basophils (%) (Auto) 0.2 % Neutrophils # (Auto) 6.11 K/uL (1.4-6.5) Lymphocytes # (Auto) 2.85 K/uL (1.2-3.4) Monocytes # (Auto) 0.70 K/uL (0.11-0.59) Eosinophils # (Auto) 0.19 K/uL (0-0.5) Basophils # (Auto) 0.02 K/uL (0-0.2) RDW Standard Deviation 59.4 fL (36.4-46.3) RDW Coefficient of Variation 16.4 % (11.5-14.5) Immature Granulocyte % (Auto) 0.3 % Immature Granulocyte # (Auto) 0.03 K/uL (0.00-0.02) Anion Gap 7.0 mmol/L (3-11) Est Creatinine Clear Calc Drug Dose 118.6 ml/min Estimated GFR () 100.3 Estimated GFR (Non- 86.6 BUN/Creatinine Ratio 2.9 (10-20) Calcium Level 9.1 mg/dl (8.5-10.1) Total Bilirubin 0.7 mg/dl (0.2-1) Direct Bilirubin 0.3 mg/dl (0-0.2) Aspartate Amino Transf (AST/SGOT) 74 U/L (15-37) Alanine Aminotransferase (ALT/SGPT) 55 U/L (12-78) Alkaline Phosphatase 114 U/L (45-117) Troponin I < 0.015 ng/ml (0-0.045) Total Protein 8.0 gm/dl (6.4-8.2) Albumin 3.4 gm/dl (3.4-5.0) Lipase 83 U/L (73-393) Urine Color YELLOW Urine Appearance CLEAR (CLEAR) Urine pH 7.5 (4.5-7.5) Urine Specific [place] 1.010 (1.000-1.030) Urine Protein NEG (NEG) Urine Glucose (UA) NEG (NEG) Urine Ketones NEG (NEG) Urine Occult Blood 1+ (NEG) Urine Nitrite NEG (NEG) Urine Bilirubin NEG (NEG) Urine Urobilinogen NEG (NEG) Urine Leukocyte Esterase TRACE (NEG) Urine WBC (Auto) 5-10 /hpf (0-5) Urine RBC (Auto) 0-4 /hpf (0-4) Urine Hyaline Casts (Auto) 1-5 /lpf (0-5) Urine Epithelial Cells (Auto) >30 /lpf (0-5) Urine Bacteria (Auto) NEG (NEG) Laboratory results as reviewed by me. Medications Administered Medications (Trade) Dose Ordered Sig/Chey Route Start Time Stop Time Status Last Admin Dose Admin Tramadol HCl (Ultram Tab) 50 mg NOW STAT PO 04/29/18 23:21 7/21/18 23:23 DC 04/29/18 23:35 50 MG Cefoxitin Sodium (Mefoxin 2000mg/ 60 ml D5W) 2,000 mg NOW STAT IV 04/30/18 01:03 04/30/18 01:04 DC 04/30/18 01:45 2,000 MG Hydromorphone HCl (Dilaudid Inj) 1 mg NOW STAT IV 04/30/18 01:03 04/30/18 01:04 DC 04/30/18 01:11 1 MG Morphine Sulfate (MoRPHine SULFATE INJ) 4 mg Q4H PRN IV 04/30/18 02:00 05/14/18 01:59 04/30/18 04:50 4 MG Sodium Chloride 1,000 ml @ 125 mls/hr Q8H IV 04/30/18 02:00 05/30/18 01:59 04/30/18 04:49 125 MLS/HR ECG Per My Interpretation Indication: chest pain Rate (beats per minute): 106 Rhythm: sinus tachycardia Findings: no acute ischemic change, no ectopy, other (normal intervals) Change: no significant change Change: Compared to previous ekgs ED Course 2315: The patient was evaluated in room A12B. A complete history and physical exam was performed. 2321: Ordered Ultram Tab 50 mg PO. 0101: I reevaluated the patient and she reports her pain is no better. I updated her on her results and discussed the treatment plan, which she agrees to. 0103: Ordered Dilaudid Injection 1 mg IV, Cefoxitin Sodium 2000 mg IV. 0107: I discussed the patients case with Dr. Montenegro, [facility] Hospitalist. She understands the patients condition and agrees to accept the patient. The patient will be evaluated for further management and care. Medical Decision Differential: Cholecystitis, Gallbladder disfunction, Hepatic Disfunction, Gastritis/PUD, Renal Colic, Pancreatitis, ACS, Aortic Pathology, amongst other pathologies entertained. 47 yr old female with RUQ pain radiating to right shoulder. Exam with RUQ pain though also pain on palpation of anter/post shoulder? She has no fever and is not septic. US reveals distended GB with stones and + Rothman's. Suspect stone in CBD and with symptoms will start abx and will need to come in. Does not have peritonitis and is stable otherwise. Labs unremarkable. With findings will have medicine evaluate further management. Medication Reconcilliation Current Medication List: was personally reviewed by me Blood Pressure Screening Patient's blood pressure: Elevated blood pressure Referred to Hospitalist Consults Time Called: 106 Consulting Physician: Dr. Montenegro [facility] Hospitalist Returned Call: 106 I discussed the patients case with Dr. Montenegro [facility] Hospitalist. She understands the patients condition and agrees to accept the patient. The patient will be evaluated for further management and care. Impression Primary Impression: Acute cholecystitis Additional Impression: Gallbladder calculus Scribe Attestation The scribe's documentation has been prepared under my direction and personally reviewed by me in its entirety. I confirm that the note above accurately reflects all work, treatment, procedures, and medical decision making performed by me. Departure Information Dispostion Being Evaluated By Hospitalist Referrals Aiden Pérez MD (PCP) Patient Instructions My [facility] Problem Qualifiers
[2018-04-29 23:46] LABS: INR 1.6 (0.9-1.1)
[2018-04-30] LABS: ALBUMIN 3.4 gm/dl (3.4-5.0); ALKALINE PHOSPHATASE 114 U/L (45-117); ALT/SGPT 55 U/L (12-78); AST/SGOT 74 U/L (15-37); BLOOD UREA NITROGEN 2 mg/dl (7-18); CALCIUM 9.1 mg/dl (8.5-10.1); CARBON DIOXIDE 26 mmol/L (21-32); GLUCOSE 108 mg/dl (70-99); LIPASE 83 U/L (73-393); POTASSIUM 3.6 mmol/L (3.5-5.1); SODIUM 141 mmol/L (136-145)
[2018-04-30] MEDS ORDERED: HYDROmorphone INJ 1 MG/ML SYR IV STA (01:03)
[2018-04-30] MEDS ORDERED: CEFOXITIN 2000MG/60 ML D5W IV STA (01:03)
--- NOTE | 2018-04-30 01:16 | History and Physical ---
History & Physical Date & Time of Service: Apr 30, 2018 at 01:15 Chief Complaint: R Side Chest Pain Primary Care Physician: Aiden Pérez MD History of Present Illness Source: patient, hospital records 47 yo F with history of Brain cyst, Depression Migraines, H/o PE (02/10/2018) on Warfarin presenting with recurrent RUQ pain. Patient reports RUQ pain x 3 episodes in the past few months. The most recent episode started 3 am yesterday.Pain is constant, sharp, 10/10 intensity radiating to Right shoulder. She tried Tylenol without relief, last dose 6 pm today. She also reports nausea, chills. Stools are loose, non-bloody x 2-3 days. Last episode of this pain was last month, It was suggested by PCP( Dr. Pérez) to get U/S last month for similar presentation in outpatient setting. but patient was never able to schedule it. She denies fever, chest pain, sob, calf tenderness. In the ED, Patient arrived afebrile, VSS. tender in RUQ. normal WBC Ct, mildly elevated AST (74), INR of 1.6, Gallbladder U/s showing positive sonographic Rothman sign, multiple gallstones with mildly distended gallbladder. She received Dilaudid 1 mg Tramadol 50 mg and 2000 mg Cefoxitin. Past Medical/Surgical History PastMedHx: Multiple PE on Warfarin Brain cyst Hypertension Depression COPD Migraines SurgHx: D&C wisdom teeth removal Medical Problems: (1) ally PE, slurry speech comes and goes, and HTN (2) Bilateral pulmonary embolism (3) Brain cyst (4) Bronchitis (5) Costochondritis (6) DUB (dysfunctional uterine bleeding) (7) Dysarthria (8) Epigastric abdominal pain (9) Fall (10) Headache (11) Hematuria (12) Hematuria (13) Hematuria (14) Hypertension (15) Pneumonia (16) Substernal precordial chest pain (17) Subtherapeutic international normalized ratio (INR) (18) Swelling of left extremity (19) Swelling of left lower extremity Family History Cancer Diabetes mellitus Heart disease Hypertension Social History Smoking Status: Former Smoker Drug Use: none Marital Status: Occupational Status: unemployed Immunizations History of Influenza Vaccine: No History of Tetanus Vaccine?: Yes History of Pneumococcal: No History of Hepatitis B Vaccine: Unknown Allergies Coded Allergies: No Known Allergies (Verified , 04/04/18) Home Medications Scheduled Clonidine Hcl (Catapres), 0.1 MG PO DAILY Cyclobenzaprine Hcl (Flexeril), 10 MG PO BID Doxepin (Sinequan), 100 MG PO DAILY Gabapentin (Neurontin), 1,200 MG PO TID Lisinopril (Prinivil), 10 MG PO DAILY Warfarin Sod (Coumadin), 5 MG PO DAILY Scheduled PRN Albuterol Hfa (Ventolin Hfa), 2 PUFFS INH Q4 PRN for SOB/Wheezing Ipratropium-Albuterol (Duoneb), 1 TREATMENT INH Q4H PRN for Shortness of Breath Sumatriptan Succinate (Imitrex), 25 MG PO DIRECTED PRN for Migraine Review of Systems Constitutional: + chills, No fever, No weakness, No fatigue Respiratory: No cough, No shortness of breath Cardiovascular: No chest pain, No edema, No palpitations Abdomen: + pain (RUQ), No nausea, No vomiting, No diarrhea, No constipation Musculoskeletal: No swelling, No calf pain Genitourinary - Female: No dysuria, No urinary frequency, No urinary urgency, No hematuria Neurologic: No weakness, No numbness/tingling Hematologic / Lymphatic: + clotting problems (history of PE), No abnormal bleeding/bruising Integumentary: No rash, No itch Physical Exam Vital Signs Date Time Temp Pulse Resp B/P (MAP) Pulse Ox O2 Delivery O2 Flow Rate FiO2 04/30/18 00:25 102 20 154/75 98 Room Air 04/29/18 23:07 36.9 107 20 140/70 99 Room Air GENERAL: alert, Obese, no distress, non-toxic EYE EXAM: normal conjunctiva, PERRL and EOM's grossly intact OROPHARYNX: no exudate, no erythema, lips, buccal mucosa, and tongue normal and mucous membranes are moist, Poor dentition NECK: supple, no nuchal rigidity, no adenopathy, non-tender LUNGS: Clear to auscultation. Normal chest wall mechanics HEART: no murmurs, S1 normal and S2 normal ABDOMEN: abdomen soft,RUQ tenderness to palpation, normo-active bowel sounds, no masses, no rebound or guarding. BACK: Back is symmetrical on inspection and there is no deformity SKIN: no rashes and no bruising UPPER EXTREMITIES: upper extremities are grossly normal. LOWER EXTREMITIES: No pitting edema. no calf tenderness NEURO EXAM: Normal sensorium, cranial nerves II-XII grossly intact, normal speech, no gross weakness of arms, no gross weakness of legs. Diagnostics Laboratory Results Results Past 24 Hours Test 04/29/18 23:28 04/30/18 00:05 Range/Units White Blood Count 9.90 4.8-10.8 K/uL Red Blood Count 4.59 4.2-5.4 M/uL Hemoglobin 15.7 12.0-16.0 g/dL Hematocrit 45.8 37-47 % Mean Corpuscular Volume 99.8 80-100 fL Mean Corpuscular Hemoglobin 34.2 25-34 pg Mean Corpuscular Hemoglobin Concent 34.3 32-36 g/dl Platelet Count 193 130-400 K/uL Mean Platelet Volume 12.4 7.4-10.4 fL Neutrophils (%) (Auto) 61.7 % Lymphocytes (%) (Auto) 28.8 % Monocytes (%) (Auto) 7.1 % Eosinophils (%) (Auto) 1.9 % Basophils (%) (Auto) 0.2 % Neutrophils # (Auto) 6.11 1.4-6.5 K/uL Lymphocytes # (Auto) 2.85 1.2-3.4 K/uL Monocytes # (Auto) 0.70 0.11-0.59 K/uL Eosinophils # (Auto) 0.19 0-0.5 K/uL Basophils # (Auto) 0.02 0-0.2 K/uL RDW Standard Deviation 59.4 36.4-46.3 fL RDW Coefficient of Variation 16.4 11.5-14.5 % Immature Granulocyte % (Auto) 0.3 % Immature Granulocyte # (Auto) 0.03 0.00-0.02 K/uL Prothrombin Time 16.7 9.0-12.0 SECONDS Prothromb Time International Ratio 1.6 0.9-1.1 Sodium Level 141 136-145 mmol/L Potassium Level 3.6 3.5-5.1 mmol/L Chloride Level 108 98-107 mmol/L Carbon Dioxide Level 26 21-32 mmol/L Anion Gap 7.0 3-11 mmol/L Blood Urea Nitrogen 2 7-18 mg/dl Creatinine 0.80 0.60-1.20 mg/dl Est Creatinine Clear Calc Drug Dose 118.6 ml/min Estimated GFR () 100.3 Estimated GFR (Non- 86.6 BUN/Creatinine Ratio 2.9 10-20 Random Glucose 108 70-99 mg/dl Calcium Level 9.1 8.5-10.1 mg/dl Total Bilirubin 0.7 0.2-1 mg/dl Direct Bilirubin 0.3 0-0.2 mg/dl Aspartate Amino Transf (AST/SGOT) 74 15-37 U/L Alanine Aminotransferase (ALT/SGPT) 55 12-78 U/L Alkaline Phosphatase 114 45-117 U/L Troponin I < 0.015 0-0.045 ng/ml Total Protein 8.0 6.4-8.2 gm/dl Albumin 3.4 3.4-5.0 gm/dl Lipase 83 73-393 U/L Urine Color YELLOW Urine Appearance CLEAR CLEAR Urine pH 7.5 4.5-7.5 Urine Specific [place] 1.010 1.000-1.030 Urine Protein NEG NEG Urine Glucose (UA) NEG NEG Urine Ketones NEG NEG Urine Occult Blood 1+ NEG Urine Nitrite NEG NEG Urine Bilirubin NEG NEG Urine Urobilinogen NEG NEG Urine Leukocyte Esterase TRACE NEG Urine WBC (Auto) 5-10 0-5 /hpf Urine RBC (Auto) 0-4 0-4 /hpf Urine Hyaline Casts (Auto) 1-5 0-5 /lpf Urine Epithelial Cells (Auto) >30 0-5 /lpf Urine Bacteria (Auto) NEG NEG Diagnostic Radiology Gall Bladder U/S: Per [facility] Multiple Small Mobile Gallbladder Stones within mildly distended gallbladder. Positive sonographic Rothman sign, No gallbladder wall thickening or pericholecystic fluid correlate for cholecystis. Mildly dilated common duct up to 8 mm Impression Assessment and Plan 47 yo F with history of Brain cyst, Depression, Migraines, H/o PE (02/10/2018) on Warfarin presenting with recurrent RUQ pain, found to have Gall bladder u/ s suspicious for Acute Cholecystitis, CBD dilation RUQ Pain, Cholelithiasis, Suspected Acute Cholecystitis , CBD dilation Mildly elevated AST - Per [facility]: RUQ u/s (04/30) with Multiple Small Mobile Gallbladder Stones within mildly distended gallbladder. Positive sonographic Rothman sign, No gallbladder wall thickening or pericholecystic fluid correlate for cholecystis. Mildly dilated common duct up to 8 mm - F/u in house radiology report - NPO ice/sips - Morphine IV 4 mg q4h prn - IV NS maintenance fluids - Given Cefoxitin 2gm in ED - Start Zosyn empirically - General Sx consulted - Gastroenterology consulted in case ERCP indicated History of PE, Subtherapeutic INR - asx - Stop Warfarin given likely procedure - Current Warfarin regimen is as follows -Warfarin - MTW: 2.5 mg daily - ,Tue take 5 mg daily - Sat 2.5 mg - Sun 5 mg daily - Given Subtherapeutic INR, warfarin regimen will need addressing prior to discharge Migraines - stable HTN - Clonidine at home dose Depression - Doxepin at home dose DVT PPX - SCD, chemical ppx contraindicated due to pending procedure Code status: Full Resuscitation Disposition: Admit to Med/Surg Resuscitation Status VTE Prophylaxis Will order VTE Prophylaxis: Yes Note Total Time: Critical Care 30 - 74 minutes Resident Tracking Resident Involvement: Resident Care Provided Care Provided: Adult Hospital Medicine
[2018-04-30] MEDS ORDERED: ALBUT/IPRATROP 3MG/0.5MG NEB 3 ML VIAL INH PRN (02:00)
[2018-04-30] MEDS ORDERED: ONDANSETRON INJ 2 MG/ML 2 ML VIAL IV PRN (02:00)
[2018-04-30] MEDS ORDERED: ALUMINUM/MAGNESIUM/SIMETH (MAALOX MAX) 30 ML UDC PO PRN (02:00)
[2018-04-30] MEDS ORDERED: POLYETHYLENE (MIRALAX) 17 GM PACK PO PRN (02:00)
[2018-04-30] MEDS ORDERED: MAGNESIUM HYDROXIDE SUSP 30 ML UDC PO PRN (02:00)
[2018-04-30] MEDS ORDERED: ALBUTEROL HFA 8 GM INHALER INH PRN (02:00)
[2018-04-30] MEDS ORDERED: ACETAMINOPHEN 325 MG TAB PO PRN (02:00)
[2018-04-30] MEDS ORDERED: PIPERACILL/TAZOBAC CONSULT ACTIVE PRN (02:45)
[2018-04-30 03:15] VITALS: BP 141/80; PULSE 111; TEMP 36.7; O2SAT 95; Ht 172.7 cm; Wt 125.0 kg
[2018-04-30] MEDS: SODIUM CHLORIDE 0.9% 1000ML 1,000 ML IV SCH ×3 (04:49→20:39)
[2018-04-30] MEDS: MoRPHine SULFATE 4 MG/ML 1 ML CARP\\VIAL IV PRN ×2 (04:50→13:21)
[2018-04-30] MEDS: PIPERACILL/TAZOBAC IV 3.375 GM in DEXTROSE 5% 100ML 100 ML IV SCH ×3 (05:57→22:11)
[2018-04-30 06:37] LABS: INR 1.6 (0.9-1.1)
--- NOTE | 2018-04-30 06:40 | Surgery Consultation ---
Consultation Date of Consultation: Apr 30, 2018. Attending Physician: Emery Nance D.O. Reason for Consultation: RUQ pain, cholelithiasis (Christopher Polanco PA-C) History of Present Illness Patient is a 47F with PMHx Brain cyst, Depression Migraines, B/L PE February 2018, and HTN who presented to the ED last evening with RUQ pain wrapping around her back and into her right shoulder. Patient reports she has been having this pain on and off for the past few months. Reports she has been in the ED for these issues in the past but never admitted as they "did not do an ultrasound." Denies fever or chills. Reports nausea but denies any vomiting. Denies any symptom association with foods. She has noticed some loose stools since the onset of these symptoms. Denies any issues with urination. Unsure of FHx of gallbladder disease. Denies history of previous abdominal surgeries. She does currently take coumadin due to B/L PE in February. Notes she has not taken any since Tuesday evening as she ran out. Denies use of other blood thinning or anticoagulant medications. WBC WNL, D Bili 0.3, AST 74, Remaining LFT WNL. RUQ U /S shows multiple small gallstones w/ distention, no wall thickening or inflammatory changes, CBD 0.8. (Christopehr Polanco PA-C) Past Medical/Surgical History Medical Problems: (1) Acute cholecystitis Status: Acute (2) Bilateral pulmonary embolism Status: Acute (3) Costochondritis Status: Acute (4) DUB (dysfunctional uterine bleeding) Status: Acute (5) Dysarthria Status: Acute (6) Epigastric abdominal pain Status: Acute (7) Gallbladder calculus Status: Acute (8) Headache Status: Acute (9) Substernal precordial chest pain Status: Acute (10) Swelling of left extremity Status: Acute (Christopher Polanco PA-C) Family History Cancer Diabetes mellitus Heart disease Hypertension (Christopher Polanco PA-C) Cancer Diabetes mellitus Heart disease Hypertension (Ramin Kate M.D.) Social History Smoking Status: Former Smoker Drug Use: none Marital Status: Housing Status: lives with family Occupation Status: unemployed (Christopher Polanco PA-C) Allergies Coded Allergies: No Known Allergies (Verified , 04/04/18) Home Medications Scheduled Clonidine Hcl (Catapres), 0.1 MG PO DAILY Cyclobenzaprine Hcl (Flexeril), 10 MG PO BID Doxepin (Sinequan), 100 MG PO DAILY Gabapentin (Neurontin), 1,200 MG PO TID Lisinopril (Prinivil), 10 MG PO DAILY Warfarin Sod (Coumadin), 5 MG PO DAILY Scheduled PRN Albuterol Hfa (Ventolin Hfa), 2 PUFFS INH Q4 PRN for SOB/Wheezing Ipratropium-Albuterol (Duoneb), 1 TREATMENT INH Q4H PRN for Shortness of Breath Sumatriptan Succinate (Imitrex), 25 MG PO DIRECTED PRN for Migraine Current Inpatient Medications Current Inpatient Medications Medications (Trade) Dose Ordered Sig/Chey Route Start Time Stop Time Status Last Admin Dose Admin Acetaminophen (Tylenol Tab) 650 mg Q4H PRN PO 04/30/18 02:00 05/30/18 01:59 Al Hydrox/Mg Hydrox/Simethicone (Maalox Max Susp) 15 ml Q4H PRN PO 04/30/18 02:00 05/30/18 01:59 Magnesium Hydroxide (Milk Of Magnesia Susp) 30 ml Q6H PRN PO 04/30/18 02:00 05/30/18 01:59 Polyethylene (Miralax Powder Packet) 17 gm DAILY PRN PO 04/30/18 02:00 05/30/18 01:59 Ondansetron HCl (Zofran Inj) 4 mg Q6H PRN IV 04/30/18 02:00 05/30/18 01:59 Albuterol (Ventolin Hfa Inhaler) 2 puffs Q4 PRN INH 04/30/18 02:00 05/30/18 01:59 Clonidine HCl (Catapres Tab) 0.1 mg DAILY PO 04/30/18 09:00 05/30/18 08:59 Doxepin HCl (Sinequan Cap) 100 mg DAILY PO 04/30/18 09:00 05/30/18 08:59 Gabapentin (Neurontin Tab) 1,200 mg TID PO 04/30/18 09:00 05/30/18 08:59 Lisinopril (Zestril Tab) 10 mg DAILY PO 04/30/18 09:00 05/30/18 08:59 Albuterol/ Ipratropium (Duoneb) 3 ml Q4R PRN INH 04/30/18 02:00 05/30/18 01:59 Morphine Sulfate (MoRPHine SULFATE INJ) 4 mg Q4H PRN IV 04/30/18 02:00 05/14/18 01:59 04/30/18 04:50 4 MG Sodium Chloride 1,000 ml @ 125 mls/hr Q8H IV 04/30/18 02:00 05/30/18 01:59 04/30/18 04:49 125 MLS/HR Piperacillin Sod/ Tazobactam Sod 3.375 gm/Dextrose 115 ml @ 28.75 mls/ hr Q8H IV 04/30/18 06:00 05/10/18 05:59 04/30/18 05:57 28.75 MLS/HR Miscellaneous Information (Consult) 1 ea UD PRN N/A 04/30/18 02:45 05/30/18 02:44 (Christopher Polanco, PA-C) Review of Systems Constitutional: No fever, No chills Respiratory: No shortness of breath Cardiovascular: No chest pain Abdomen: + pain (RUQ wrapping to back), + nausea, + problem reported (loose stools), No vomiting, No diarrhea, No constipation Genitourinary - Female: No dysuria, No hematuria Integumentary: No new/changing skin lesions, No color change (Christopher Polanco , PA-C) Physical Exam Date Time Temp Pulse Resp B/P (MAP) Pulse Ox O2 Delivery O2 Flow Rate FiO2 04/30/18 03:15 Room Air 04/30/18 03:15 36.7 111 16 141/80 95 Room Air 04/30/18 02:59 109 20 138/88 96 04/30/18 01:40 88 18 154/75 96 Room Air 04/30/18 00:25 102 20 154/75 98 Room Air 04/29/18 23:07 36.9 107 20 140/70 99 Room Air General Appearance: no apparent distress, + obese Head: normocephalic, atraumatic ENT: hearing grossly normal Respiratory/Chest: no respiratory distress, no accessory muscle use Abdomen/GI: soft, no organomegaly, no pulsatile mass, + tenderness ( Generalized abdominal TTP most prominent in RUQ) Neurologic/Psych: alert, normal mood/affect, oriented x 3 Skin: normal color, warm/dry (Christopher Polanco, KECIA) Laboratory Results Last 24 Hours Test 04/29/18 23:28 04/30/18 00:05 04/30/18 05:48 White Blood Count 9.90 K/uL Red Blood Count 4.59 M/uL Hemoglobin 15.7 g/dL Hematocrit 45.8 % Mean Corpuscular Volume 99.8 fL Mean Corpuscular Hemoglobin 34.2 pg Mean Corpuscular Hemoglobin Concent 34.3 g/dl Platelet Count 193 K/uL Mean Platelet Volume 12.4 fL Neutrophils (%) (Auto) 61.7 % Lymphocytes (%) (Auto) 28.8 % Monocytes (%) (Auto) 7.1 % Eosinophils (%) (Auto) 1.9 % Basophils (%) (Auto) 0.2 % Neutrophils # (Auto) 6.11 K/uL Lymphocytes # (Auto) 2.85 K/uL Monocytes # (Auto) 0.70 K/uL Eosinophils # (Auto) 0.19 K/uL Basophils # (Auto) 0.02 K/uL RDW Standard Deviation 59.4 fL RDW Coefficient of Variation 16.4 % Immature Granulocyte % (Auto) 0.3 % Immature Granulocyte # (Auto) 0.03 K/uL Prothrombin Time 16.7 SECONDS Prothromb Time International Ratio 1.6 Sodium Level 141 mmol/L Potassium Level 3.6 mmol/L Chloride Level 108 mmol/L Carbon Dioxide Level 26 mmol/L Anion Gap 7.0 mmol/L Blood Urea Nitrogen 2 mg/dl Creatinine 0.80 mg/dl Est Creatinine Clear Calc Drug Dose 118.6 ml/min Estimated GFR () 100.3 Estimated GFR (Non- 86.6 BUN/Creatinine Ratio 2.9 Random Glucose 108 mg/dl Calcium Level 9.1 mg/dl Total Bilirubin 0.7 mg/dl Direct Bilirubin 0.3 mg/dl Aspartate Amino Transf (AST/SGOT) 74 U/L Alanine Aminotransferase (ALT/SGPT) 55 U/L Alkaline Phosphatase 114 U/L Troponin I < 0.015 ng/ml Total Protein 8.0 gm/dl Albumin 3.4 gm/dl Lipase 83 U/L Urine Color YELLOW Urine Appearance CLEAR Urine pH 7.5 Urine Specific [place] 1.010 Urine Protein NEG Urine Glucose (UA) NEG Urine Ketones NEG Urine Occult Blood 1+ Urine Nitrite NEG Urine Bilirubin NEG Urine Urobilinogen NEG Urine Leukocyte Esterase TRACE Urine WBC (Auto) 5-10 /hpf Urine RBC (Auto) 0-4 /hpf Urine Hyaline Casts (Auto) 1-5 /lpf Urine Epithelial Cells (Auto) >30 /lpf Urine Bacteria (Auto) NEG (Christopher Polanco, PA-C) Assessment & Plan RUQ pain, cholelithiasis, possible acute cholecystitis, possible choledocholithiasis Abdomen soft, non-distended, RUQ TTP. No N/V at this time. Pain Controlled. Patient will likely need cholecystectomy during this admission. Hold on GI Eval and possible MRCP/ERCP given only mild elevations in LFT and borderline CBD dilatation. Likely for laparoscopic cholecystectomy w/ possible cholangiogram in OR with Dr. Kate today or more likely tomorrow - will coordinate with OR. Continue to hold Coumadin, keep NPO for now in case procedure today, SCDs. Findings discussed with Dr. Kate. Please contact with questions or concerns. (Christopher Polanco, PA-C) 04/30/18- pt seen and examined- adm with biliary colic. h/o PE, on coumadin- INR 1.6. Tentativel for Lap nisha possible cholangiogram tomorrow. clear liquids today (Ramin Kate M.D.)
--- NOTE | 2018-04-30 06:46 | DIAGNOSTIC IMAGING REPORT ---
CHEST ONE VIEW PORTABLE HISTORY: 47 years-old Female right chest pain acute atypical chest pain COMPARISON: Chest radiograph 03/18/2018 TECHNIQUE: Portable AP view of the chest FINDINGS: Cardiac silhouette is mildly enlarged. Subsegmental left basilar opacities. Mild left hemidiaphragmatic elevation. No pneumothorax, pleural effusion or overt pulmonary edema. The bones of the chest appear grossly intact. There are degenerative changes of the shoulders and spine. IMPRESSION: Subsegmental left basilar opacities suggest atelectasis. The above report was generated using voice recognition software. It may contain grammatical, syntax or spelling errors. Electronically signed by: Marino Arreola M.D. 04/30/2018 6:45 AM Dictated Date/Time: 04/30/2018 6:43 AM
--- NOTE | 2018-04-30 07:01 | DIAGNOSTIC IMAGING REPORT ---
GALLBLADDER-ABD LIMITED HISTORY: 47 years-old Female RUQ abdominal pain acute right upper quadrant abdominal pain COMPARISON: CT abdomen and pelvis 03/18/2018 TECHNIQUE: Multiple real-time sonographic images of the abdominal right upper quadrant were obtained assessing grayscale appearance and color flow FINDINGS: The visualized pancreas appears unremarkable. There is mildly increased echogenicity of the liver. No focal hepatic mass lesions or intrahepatic biliary ductal dilation. Common bile duct measures within the upper limits of normal at 6 mm. There are multiple layering shadowing gallstones within the gallbladder lumen. Gallbladder measures up to 10 cm in length. No wall thickening or pericholecystic fluid collections. Sonographic Rothman sign reported as positive. The imaged right kidney is unremarkable without hydronephrosis. IMPRESSION: 1. Cholelithiasis with mild gallbladder distention. The sonographic Rothman sign was reported as positive, however no gallbladder wall thickening or pericholecystic fluid collections identified. These findings are equivocal for acute cholecystitis. Correlation with clinical exam and laboratory analysis recommended. 2. Common bile duct measures within the upper limits of normal at 6 mm. No obstructing common bile duct calculi identified. 3. Suggested hepatic steatosis. The above report was generated using voice recognition software. It may contain grammatical, syntax or spelling errors. Electronically signed by: Marino Arreola M.D. 04/30/2018 7:00 AM Dictated Date/Time: 04/30/2018 6:56 AM
[2018-04-30 07:16] VITALS: BP 139/81; PULSE 101; TEMP 36.8; O2SAT 93
[2018-04-30] MEDS ORDERED: CYCLOBENZAPRINE HCL 10 MG TAB PO SCH (09:00)
[2018-04-30] MEDS: CLONIDINE HCL 0.1 MG TAB PO SCH (09:00)
[2018-04-30] MEDS: DOXEPIN HCL 50 MG CAP PO SCH (09:00)
[2018-04-30] MEDS: GABAPENTIN 600 MG TAB PO SCH ×3 (09:12→20:32)
[2018-04-30] MEDS: LISINOPRIL 10 MG TAB PO SCH (09:12)
[2018-04-30 15:16] VITALS: BP 106/70; PULSE 94; TEMP 36.6; O2SAT 95
[2018-04-30] MEDS: HYDROmorphone INJ 0.5 MG/0.5 ML SYR IV PRN (17:41)
--- NOTE | 2018-04-30 18:14 | Family Medicine Progress Note ---
Progress Note Date of Service Apr 30, 2018. Subjective Pt comfortable in bed, sleeping this morning. Says she did not sleep at all last night with admission. Per nursing later in afternoon, requesting more pain medication. ROS See HPI for pertinent positives and negatives. Otherwise denies new headache, chest pain, dyspnea, loose or bloody stools, or swelling in extremities. Medications Current Inpatient Medications Medications (Trade) Dose Ordered Sig/Chey Route Start Time Stop Time Status Last Admin Dose Admin Acetaminophen (Tylenol Tab) 650 mg Q4H PRN PO 04/30/18 02:00 05/30/18 01:59 Al Hydrox/Mg Hydrox/Simethicone (Maalox Max Susp) 15 ml Q4H PRN PO 04/30/18 02:00 05/30/18 01:59 Magnesium Hydroxide (Milk Of Magnesia Susp) 30 ml Q6H PRN PO 04/30/18 02:00 05/30/18 01:59 Polyethylene (Miralax Powder Packet) 17 gm DAILY PRN PO 04/30/18 02:00 05/30/18 01:59 Ondansetron HCl (Zofran Inj) 4 mg Q6H PRN IV 04/30/18 02:00 05/30/18 01:59 04/30/18 13:27 4 MG Albuterol (Ventolin Hfa Inhaler) 2 puffs Q4 PRN INH 04/30/18 02:00 05/30/18 01:59 Clonidine HCl (Catapres Tab) 0.1 mg DAILY PO 04/30/18 09:00 05/30/18 08:59 Doxepin HCl (Sinequan Cap) 100 mg DAILY PO 04/30/18 09:00 05/30/18 08:59 Gabapentin (Neurontin Tab) 1,200 mg TID PO 04/30/18 09:00 05/30/18 08:59 04/30/18 13:23 1,200 MG Lisinopril (Zestril Tab) 10 mg DAILY PO 04/30/18 09:00 05/30/18 08:59 Future Hold 04/30/18 09:12 10 MG Albuterol/ Ipratropium (Duoneb) 3 ml Q4R PRN INH 04/30/18 02:00 05/30/18 01:59 Morphine Sulfate (MoRPHine SULFATE INJ) 4 mg Q4H PRN IV 04/30/18 02:00 05/14/18 01:59 04/30/18 13:21 4 MG Sodium Chloride 1,000 ml @ 125 mls/hr Q8H IV 04/30/18 02:00 05/30/18 01:59 04/30/18 13:20 125 MLS/HR Piperacillin Sod/ Tazobactam Sod 3.375 gm/Dextrose 115 ml @ 28.75 mls/ hr Q8H IV 04/30/18 06:00 05/10/18 05:59 04/30/18 13:28 28.75 MLS/HR Miscellaneous Information (Consult) 1 ea UD PRN N/A 04/30/18 02:45 05/30/18 02:44 Hydromorphone HCl (Dilaudid Inj) 0.5 mg Q2H PRN IV 04/30/18 16:15 05/14/18 16:14 04/30/18 17:41 0.5 MG Objective Vital Signs Date Time Temp Pulse Resp B/P (MAP) Pulse Ox O2 Delivery O2 Flow Rate FiO2 04/30/18 15:20 Room Air 04/30/18 15:16 36.6 94 18 106/70 (82) 95 Room Air 04/30/18 07:47 Room Air 04/30/18 07:16 36.8 101 16 139/81 (100) 93 Room Air 04/30/18 03:15 Room Air 04/30/18 03:15 36.7 111 16 141/80 95 Room Air 04/30/18 02:59 109 20 138/88 96 04/30/18 01:40 88 18 154/75 96 Room Air 04/30/18 00:25 102 20 154/75 98 Room Air 04/29/18 23:07 36.9 107 20 140/70 99 Room Air Physical Exam Notes: GENERAL: Awake, alert, in no distress. Obese. HENT: Normocephalic, atraumatic. EYES: Normal conjunctiva. Sclera non-icteric. EOMI. NECK: Supple. Full range of motion. no JVD RESPIRATORY: Clear to auscultation. CARDIAC: Regular rate, normal rhythm. Extremities warm and well perfused. Pulses equal. ABDOMEN: Soft, non-distended. +moderate tenderness to palpation. No rebound or guarding. No masses. LOWER EXTREMITIES: Calves are equal size bilaterally and non-tender. No edema. No discoloration. NEURO: No motor deficits noted. SKIN: No rash or jaundice noted. Laboratory Results 04/29/18 23:28 Red Blood Count 4.59, Mean Corpuscular Volume 99.8, Mean Corpuscular Hemoglobin 34.2, Mean Corpuscular Hemoglobin Concent 34.3, Mean Platelet Volume 12.4, Neutrophils (%) (Auto) 61.7, Lymphocytes (%) (Auto) 28.8, Monocytes (%) (Auto) 7.1, Eosinophils (%) (Auto) 1.9, Basophils (%) (Auto) 0.2, Neutrophils # (Auto) 6.11, Lymphocytes # (Auto) 2.85, Monocytes # (Auto) 0.70, Eosinophils # (Auto) 0.19, Basophils # (Auto) 0.02 04/29/18 23:28 Test 04/29/18 23:28 04/30/18 00:05 04/30/18 05:48 White Blood Count 9.90 K/uL (4.8-10.8) Red Blood Count 4.59 M/uL (4.2-5.4) Hemoglobin 15.7 g/dL (12.0-16.0) Hematocrit 45.8 % (37-47) Mean Corpuscular Volume 99.8 fL (80-100) Mean Corpuscular Hemoglobin 34.2 pg (25-34) Mean Corpuscular Hemoglobin Concent 34.3 g/dl (32-36) Platelet Count 193 K/uL (130-400) Mean Platelet Volume 12.4 fL (7.4-10.4) Neutrophils (%) (Auto) 61.7 % Lymphocytes (%) (Auto) 28.8 % Monocytes (%) (Auto) 7.1 % Eosinophils (%) (Auto) 1.9 % Basophils (%) (Auto) 0.2 % Neutrophils # (Auto) 6.11 K/uL (1.4-6.5) Lymphocytes # (Auto) 2.85 K/uL (1.2-3.4) Monocytes # (Auto) 0.70 K/uL (0.11-0.59) Eosinophils # (Auto) 0.19 K/uL (0-0.5) Basophils # (Auto) 0.02 K/uL (0-0.2) RDW Standard Deviation 59.4 fL (36.4-46.3) RDW Coefficient of Variation 16.4 % (11.5-14.5) Immature Granulocyte % (Auto) 0.3 % Immature Granulocyte # (Auto) 0.03 K/uL (0.00-0.02) Anion Gap 7.0 mmol/L (3-11) Est Creatinine Clear Calc Drug Dose 118.6 ml/min Estimated GFR () 100.3 Estimated GFR (Non- 86.6 BUN/Creatinine Ratio 2.9 (10-20) Calcium Level 9.1 mg/dl (8.5-10.1) Total Bilirubin 0.7 mg/dl (0.2-1) Direct Bilirubin 0.3 mg/dl (0-0.2) Aspartate Amino Transf (AST/SGOT) 74 U/L (15-37) Alanine Aminotransferase (ALT/SGPT) 55 U/L (12-78) Alkaline Phosphatase 114 U/L (45-117) Troponin I < 0.015 ng/ml (0-0.045) Total Protein 8.0 gm/dl (6.4-8.2) Albumin 3.4 gm/dl (3.4-5.0) Lipase 83 U/L (73-393) Urine Color YELLOW Urine Appearance CLEAR (CLEAR) Urine pH 7.5 (4.5-7.5) Urine Specific [place] 1.010 (1.000-1.030) Urine Protein NEG (NEG) Urine Glucose (UA) NEG (NEG) Urine Ketones NEG (NEG) Urine Occult Blood 1+ (NEG) Urine Nitrite NEG (NEG) Urine Bilirubin NEG (NEG) Urine Urobilinogen NEG (NEG) Urine Leukocyte Esterase TRACE (NEG) Urine WBC (Auto) 5-10 /hpf (0-5) Urine RBC (Auto) 0-4 /hpf (0-4) Urine Hyaline Casts (Auto) 1-5 /lpf (0-5) Urine Epithelial Cells (Auto) >30 /lpf (0-5) Urine Bacteria (Auto) NEG (NEG) Prothrombin Time 16.4 SECONDS (9.0-12.0) Prothromb Time International Ratio 1.6 (0.9-1.1) Assessment and Plan 47 F here for RUQ pain, found to have cholelithiasis, + Rothman sign and mild gallbladder distention on ultrasound. Acute cholecystitis - per surgery management - plan for lap choly tomorrow. - query common bile duct dilation - plan for cholangiogram during procedure tomorrow. - held lisinopril, flexeril, and warfarin in preparation for surgery - pain control: morphine 4 mg q 4h, dilaudid 0.5mg q2h for breakthrough pain - IV Zosyn running - zophran prn - GI consulted, considered MRCP but will defer given cholangiogram planned as above. H/o pulmonary emboli February 2018 - hold home warfarin - pt expresses a desire to consider NOAC. will consider Chronic pain - continue home gabapentin 1200 mg TID Depression/anxiety - continue doxepin HTN - continue clonidine 0.1 mg daily - hold home lisinopril in prep for surgery FEN/GI: - clears during day. NPO after midnite, NSS IVF @ 125 ml/hr DVT ppx: SCD's for now, consider NOAC after surgery Dispo: med/surg. Await surgery Tuesday. Resident Physician Supervision Note: I was present with Dr. Koenig during the history and exam. I discussed the case with the resident and agree with the findings and plan as documented in the note. Any exceptions or clarifications are listed here: Surgery planned for tomorrow. PLAN 1) Recheck INR in AM; Vitamin K if needed (would discuss with surgery, but likely OK if INR less than 1.5). 2) If surgery is delayed past tomorrow, would recommend bridging therapeutic anticoagulation. 3) Post operative, when cleared by surgery, consider NOAC - patient has had difficulty with warfarin. Documented By: Emery Nance Continued [facility] stay due to: multiple IV medications needed Resident Tracking Resident Involvement: Resident Care Provided Care Provided: Adult Hospital Medicine
[2018-04-30 23:13] VITALS: BP 123/80; PULSE 96; TEMP 36.4; O2SAT 95
[2018-05-01] VITALS (14 sets, daily range): BP systolic 131–149; BP diastolic 75–97; PULSE 93–119; TEMP 36.4–36.9; O2SAT 91–98
[2018-05-01] MEDS: HYDROmorphone INJ 0.5 MG/0.5 ML SYR IV PRN ×4 (00:10→21:09)
[2018-05-01] MEDS: SODIUM CHLORIDE 0.9% 1000ML 1,000 ML IV SCH ×2 (04:35→16:20)
[2018-05-01] MEDS: PIPERACILL/TAZOBAC IV 3.375 GM in DEXTROSE 5% 100ML 100 ML IV SCH ×3 (05:58→22:18)
[2018-05-01] MEDS ORDERED: FENTANYL CITRATE INJ 50 MCG/1 ML 2 ML VIAL ONE (06:44)
[2018-05-01] MEDS ORDERED: DEXAMETHASONE SOD INJ 4 MG/ML VIAL ONE ×2 (06:44→07:53)
[2018-05-01] MEDS ORDERED: PROPOFOL IV EMULSION 10 MG/ML 20 ML VIAL ONE ×2 (06:44→08:25)
[2018-05-01] MEDS ORDERED: PHENYLEPHRINE HCL INJ 10 MG/ML VIAL ONE (06:44)
[2018-05-01] MEDS ORDERED: GLYCOPYRROLATE INJ 0.2 MG/ML VIAL ONE ×2 (06:44→08:53)
[2018-05-01] MEDS ORDERED: SUCCINYLCHOLINE CHLORIDE 20 MG/ML 10 ML VIAL IV ONE (06:44)
[2018-05-01] MEDS ORDERED: LIDOCAINE HCL 2% 2 ML VIAL (20MG/ML) ONE (06:44)
[2018-05-01] MEDS ORDERED: ONDANSETRON INJ 2 MG/ML 2 ML VIAL ONE (06:44)
[2018-05-01] MEDS ORDERED: MIDAZOLAM HCL 1 MG/ML 2ML VIAL ONE (06:44)
[2018-05-01] MEDS ORDERED: EpHEDrine SULFATE INJ 50 MG/ML AMP ONE (06:44)
[2018-05-01] MEDS ORDERED: NEOSTIGMINE METHYLSULFATE 5 MG/5 ML SYR ONE (06:44)
[2018-05-01] MEDS ORDERED: BUPIVACAINE 0.5 % 5 MG/1 ML PF 10ML VIAL ONE (07:05)
[2018-05-01] MEDS ORDERED: CONRAY 60% 50 ML VIAL ONE (07:05)
[2018-05-01 07:11] LABS: BASO % 0.3 %; BASO ABS # 0.02 K/uL (0-0.2); EOS % 2.1 %; EOS ABS # 0.16 K/uL (0-0.5); HEMATOCRIT 41.2 % (37-47); HEMOGLOBIN 13.6 g/dL (12.0-16.0); IG# 0.03 K/uL (0.00-0.02); LYMPH % 32.6 %; LYMPH ABS # 2.51 K/uL (1.2-3.4); MEAN CELL VOLUME 102.2 fL (80-100); MEAN CORPUSCULAR HEMOGLOBIN 33.7 pg (25-34); MEAN PLATELET VOLUME 12.2 fL (7.4-10.4); MONO % 8.1 %; MONO ABS # 0.62 K/uL (0.11-0.59); NEUT % 56.5 %; NEUT ABS # 4.36 K/uL (1.4-6.5); PLATELET COUNT 172 K/uL (130-400); RED CELL DISTRIBUTION WIDTH CV 16.5 % (11.5-14.5)
--- NOTE | 2018-05-01 07:11 | History & Physical Bridge Note ---
H&P Re-Evaluation Bridge Note: I have examined the patient, reviewed the History & Physical and in the interval since the performance of the History & Physical I have noted the following changes of clinical significance: No changes noted for OR today
[2018-05-01 07:22] LABS: INR 1.4 (0.9-1.1)
[2018-05-01 07:44] LABS: ALBUMIN 2.8 gm/dl (3.4-5.0); CALCIUM 8.2 mg/dl (8.5-10.1); CREATININE 0.83 mg/dl (0.60-1.20); POTASSIUM 3.8 mmol/L (3.5-5.1); TOTAL PROTEIN 6.8 gm/dl (6.4-8.2)
[2018-05-01] MEDS ORDERED: RANITIDINE HCL 25 MG/ML INJ ONE (07:53)
[2018-05-01] MEDS ORDERED: METOCLOPRAMIDE HCL INJ 5 MG/ML 2 ML VIAL ONE (07:54)
[2018-05-01] MEDS ORDERED: FENTANYL CITRATE INJ 50 MCG/1 ML 2 ML VIAL IV PRN (08:00)
[2018-05-01] MEDS ORDERED: EpHEDrine SULFATE INJ 50 MG/ML AMP IV PRN (08:00)
[2018-05-01] MEDS ORDERED: ONDANSETRON INJ 2 MG/ML 2 ML VIAL IV PRN ×2 (08:00→09:15)
[2018-05-01] MEDS ORDERED: ATROPINE SULFATE 0.1 MG/ML 5ML SYR IV PRN (08:00)
[2018-05-01] MEDS ORDERED: METOPROLOL TARTRATE 1 MG/ML VIAL ONE (08:26)
[2018-05-01] MEDS ORDERED: ROCURONIUM BROMIDE 10 MG/ML 5 ML VIAL ONE (08:30)
--- NOTE | 2018-05-01 09:05 | [facility] Operative Report ---
Operative Report Operative Date May 01, 2018. Pre-Operative Diagnosis Cholelithiasis; possible acute cholecystitis; Post-Operative Diagnosis Cholelithiasis, acute cholecystitis; chronic adhesions, chronic cholecystitis Procedure(s) Performed Laparoscopic Cholecystectomy, lysis of adhesions Surgeon Dr. Ephraim Kate Ethanol Maintenance Mechanic Surgeon(s) Ellis Figueredo PA-C Estimated Blood Loss 20cc Findings severe cholecystitis, adhesions, very difficult secondary to disease and morbid obesity Specimens a. Gallbladder Drains #[address] JACQUE Anesthesia Type General Complication(s) none Disposition Recovery Room / PACU I attest to the content of the Intraoperative Record and any orders documented therein. Any exceptions are noted below.
[2018-05-01] MEDS ORDERED: PROMETHAZINE HCL INJ 25 MG in SODIUM CHLORIDE 0.9% 50ML 50 ML IV PRN (09:15)
[2018-05-01] MEDS ORDERED: PROMETHAZINE HCL INJ 12.5 MG in SODIUM CHLORIDE 0.9% 50ML 50 ML IV PRN (09:30)
[2018-05-01] MEDS ORDERED: ACETAMINOPHEN IV 100 ML IV ONE (09:30)
[2018-05-01] MEDS ORDERED: LACTATED RINGER'S 1000ML 1,000 ML IV SCH ×2 (09:30→16:15)
--- NOTE | 2018-05-01 09:50 | OPERATIVE REPORT ---
DATE OF OPERATION: 05/01/2018 NAME OF OPERATION: Laparoscopic cholecystectomy with lysis of adhesions. PREOPERATIVE DIAGNOSIS: Acute cholecystitis. POSTOPERATIVE DIAGNOSES: Acute cholecystitis with chronic cholecystitis and severe adhesions. STAFF SURGEON: Ramin Kate MD ELECTROENCEPHALOGRAPHIC TECHNICIAN: Elder Palacios PA-C ANESTHESIA: General. PROCEDURE: The patient was brought in the operating room and placed on the operating table in supine position. Her abdomen was prepped and draped in usual fashion. Pneumatic stockings and orogastric tube were placed. Incision was made carrying dissection down just above the umbilicus using 0.5% plain Marcaine to anesthetize all incisions. The patient had significant adipose tissue from morbid obesity. I tried to place a Veress needle, but was unable to produce a pneumoperitoneum. Therefore, the abdominal cavity was opened up under visualization, placing a balloon cannula with some difficulty producing pneumoperitoneum. At this point, patient was placed in reverse Trendelenburg position. Three 5 mm ports were placed, 1 cephalad and 2 laterally. The patient's liver was very large from fatty liver and she had an enormous omentum. With some difficulty, the gallbladder was retracted. It was extremely distended. I aspirated bile from the gallbladder. It was clear. The adhesions were to the gallbladder showing chronic inflammation. Dissection was carried out at the bossman hepatitis. With mild difficulty, I was able to identify the cystic duct and cystic artery. These were clipped and transected and the gallbladder dissected away from the liver bed. There was chronic scarring adhesion and edema in the wall indicating acute on chronic cholecystitis. Gallbladder was placed into an Endobag and then after appropriate irrigation and hemostasis, the Endobag was removed through the umbilical site. All ports were removed. The fascia at the umbilicus closed using 0 Vicryl suture, then the skin reapproximated using 4-0 nylon suture. I placed a #15 round Monster-Smalls drain prior to closure through the lateral 5 mm port site into the subhepatic space. It was secured using a 5-0 nylon. My machine operator assistant helped with prepping, draping, removal of the gallbladder and closure of the wounds. The case took me at least 30 minutes extra because of the patient's morbid obesity, difficulty entering the abdominal cavity, and removal of the gallbladder. I attest to the content of the Intraoperative Record and any orders documented therein. Any exception s are noted below.
--- NOTE | 2018-05-01 10:18 | Anesthesiology Progress Note ---
Anesthesia Post Op Note Date & Time May 01, 2018 at 10:17 Vital Signs Pain Intensity: 0 Vital Signs Past 12 Hours Date Time Temp Pulse Resp B/P (MAP) Pulse Ox O2 Delivery O2 Flow Rate FiO2 05/01/18 10:10 36.6 92 20 142/97 (114) 93 Nasal Cannula 3 05/01/18 09:27 36.3 99 20 120/75 92 Diffusion Mask 12 05/01/18 06:38 36.8 100 16 132/83 (99) 98 Room Air 05/01/18 00:05 95 Room Air 04/30/18 23:13 36.4 96 16 123/80 (94) 95 Room Air Notes Mental Status: alert / awake / arousable, participated in evaluation Pt Amnestic to Procedure: Yes Nausea / Vomiting: adequately controlled Pain: adequately controlled Airway Patency, RR, SpO2: stable & adequate BP & HR: stable & adequate Hydration State: stable & adequate Anesthetic Complications: no major complications apparent
[2018-05-01] MEDS: GABAPENTIN 600 MG TAB PO SCH ×3 (10:43→21:05)
[2018-05-01] MEDS: CLONIDINE HCL 0.1 MG TAB PO SCH (10:44)
[2018-05-01] MEDS: DOXEPIN HCL 50 MG CAP PO SCH (10:44)
--- NOTE | 2018-05-01 12:49 | Family Medicine Progress Note ---
Progress Note Date of Service May 01, 2018. Assessment and Plan Continued [facility] stay due to: multiple IV medications needed Resident Tracking Resident Involvement: Resident Care Provided Care Provided: Adult Hospital Medicine
[2018-05-01] MEDS ORDERED: NURSING VERBAL MED ORDER ONE (16:15)
--- NOTE | 2018-05-01 20:17 | Progress Note ---
Subjective Date of Service: May 01, 2018. Subjective Pt evaluation today including: conversation w/ patient, physical exam, chart review, review of inpatient medication list feeling really good post op notes soreness but not really pain ready to eat no breathing trouble notes despite concerns on weight related issues w john paulto she would prefer to move to that -- notes not only for convenience but has had a really hard time staying in goal range on coumadin anyway. undesrtands risks/benefits and wants to proceed Problem List Medical Problems: (1) Acute cholecystitis Status: Acute (2) Bilateral pulmonary embolism Status: Acute (3) Costochondritis Status: Acute (4) DUB (dysfunctional uterine bleeding) Status: Acute (5) Dysarthria Status: Acute (6) Epigastric abdominal pain Status: Acute (7) Gallbladder calculus Status: Acute (8) Headache Status: Acute (9) Substernal precordial chest pain Status: Acute (10) Swelling of left extremity Status: Acute Review of Systems all other ROS otherwise negative except for as above Objective Vital Signs Date Time Temp Pulse Resp B/P (MAP) Pulse Ox O2 Delivery O2 Flow Rate FiO2 05/01/18 19:12 36.9 119 18 132/97 (109) 93 Room Air 05/01/18 16:32 106 16 96 Room Air 05/01/18 15:38 36.5 103 20 146/81 (102) 95 Room Air 05/01/18 13:35 36.4 101 16 135/75 (95) 94 Room Air 05/01/18 12:35 102 18 136/84 (101) 92 Room Air 05/01/18 11:35 98 16 131/88 (102) 93 Room Air 05/01/18 11:35 98 16 131/88 (102) 93 Room Air 05/01/18 11:05 95 16 137/84 (101) 91 Room Air 05/01/18 11:04 95 16 137/84 (101) 91 Room Air 05/01/18 10:35 36.9 93 18 141/88 (105) 94 Nasal Cannula 2.0 05/01/18 10:35 94 Nasal Cannula 2.0 05/01/18 10:35 94 Nasal Cannula 2.0 05/01/18 10:17 93 24 05/01/18 10:17 93 24 94 05/01/18 10:16 149/103 05/01/18 10:12 92 22 05/01/18 10:12 92 22 94 05/01/18 10:11 142/115 05/01/18 10:10 36.6 92 20 142/97 (114) 93 Nasal Cannula 3 05/01/18 10:07 88 22 05/01/18 10:07 89 22 142/97 95 05/01/18 10:03 143/99 05/01/18 10:02 91 24 94 05/01/18 10:02 92 24 05/01/18 10:01 125/103 05/01/18 09:57 94 23 94 05/01/18 09:57 94 23 05/01/18 09:56 130/86 05/01/18 09:52 94 23 125/74 95 05/01/18 09:52 93 23 05/01/18 09:47 95 18 05/01/18 09:47 94 18 94 05/01/18 09:46 140/81 05/01/18 09:42 95 24 05/01/18 09:42 95 24 93 05/01/18 09:37 98 29 05/01/18 09:37 97 29 91 05/01/18 09:36 122/87 05/01/18 09:32 100 32 120/94 93 05/01/18 09:32 100 32 05/01/18 09:28 120/75 05/01/18 09:27 100 18 05/01/18 09:27 99 18 91 05/01/18 09:27 36.3 99 20 120/75 92 Diffusion Mask 12 05/01/18 06:38 36.8 100 16 132/83 (99) 98 Room Air 05/01/18 00:05 95 Room Air 04/30/18 23:13 36.4 96 16 123/80 (94) 95 Room Air Physical Exam General Appearance: no apparent distress Eyes: EOMI ENT: hearing grossly normal Neck: trachea midline Respiratory/Chest: no respiratory distress, no accessory muscle use Neurologic/Psychiatric: 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-XII nml as tested, alert, normal mood/affect Skin: normal color, warm/dry Laboratory Results Last 24 Hours Test 05/01/18 06:43 05/01/18 07:27 White Blood Count 7.70 K/uL Red Blood Count 4.03 M/uL Hemoglobin 13.6 g/dL Hematocrit 41.2 % Mean Corpuscular Volume 102.2 fL Mean Corpuscular Hemoglobin 33.7 pg Mean Corpuscular Hemoglobin Concent 33.0 g/dl Platelet Count 172 K/uL Mean Platelet Volume 12.2 fL Neutrophils (%) (Auto) 56.5 % Lymphocytes (%) (Auto) 32.6 % Monocytes (%) (Auto) 8.1 % Eosinophils (%) (Auto) 2.1 % Basophils (%) (Auto) 0.3 % Neutrophils # (Auto) 4.36 K/uL Lymphocytes # (Auto) 2.51 K/uL Monocytes # (Auto) 0.62 K/uL Eosinophils # (Auto) 0.16 K/uL Basophils # (Auto) 0.02 K/uL RDW Standard Deviation 62.0 fL RDW Coefficient of Variation 16.5 % Immature Granulocyte % (Auto) 0.4 % Immature Granulocyte # (Auto) 0.03 K/uL Prothrombin Time 14.4 SECONDS Prothromb Time International Ratio 1.4 Sodium Level 140 mmol/L Potassium Level 3.8 mmol/L Chloride Level 107 mmol/L Carbon Dioxide Level 27 mmol/L Anion Gap 6.0 mmol/L Blood Urea Nitrogen 4 mg/dl Creatinine 0.83 mg/dl Est Creatinine Clear Calc Drug Dose 114.3 ml/min Estimated GFR () 96.0 Estimated GFR (Non- 82.8 BUN/Creatinine Ratio 4.8 Random Glucose 135 mg/dl Calcium Level 8.2 mg/dl Total Bilirubin 1.2 mg/dl Aspartate Amino Transf (AST/SGOT) 57 U/L Alanine Aminotransferase (ALT/SGPT) 45 U/L Alkaline Phosphatase 97 U/L Total Protein 6.8 gm/dl Albumin 2.8 gm/dl Globulin 4.0 gm/dl Albumin/Globulin Ratio 0.7 Bedside Urine Test NEG Assessment and Plan 47 F here for RUQ pain, found to have cholelithiasis, + Rothman sign and mild gallbladder distention on ultrasound. Acute cholecystitis - post choley - held lisinopril, flexeril, and warfarin in preparation for surgery - can probably resume tomorrow although may start xarelto instead for anticoagulation - pain control: morphine 4 mg q 4h, dilaudid 0.5mg q2h for breakthrough pain - IV Zosyn running - zofran prn - GI consulted, considered MRCP but will defer given cholangiogram planned as above. H/o pulmonary emboli February 2018 - hold home warfarin - pt expresses a desire to consider NOAC. will consider - she understands risks/ benefits and seems reasonable about them, also astutely notes she's had a hard time being therapeutic w coumadin anyway and has recovered well from PE Chronic pain - continue home gabapentin 1200 mg TID - doing well Depression/anxiety - continue doxepin - no acute issues HTN - continue clonidine 0.1 mg daily - probably can resume home meds tomorrow
[2018-05-01] MEDS ORDERED: NYSTATIN POWDER 15GM BTL EXT PRN (22:45)
[2018-05-02] MEDS: HYDROmorphone INJ 2 MG/ML SYR/VIAL IV PRN ×7 (00:11→21:35)
[2018-05-02 03:46] VITALS: BP 142/84; PULSE 107; TEMP 36.5; O2SAT 93
[2018-05-02] MEDS: SODIUM CHLORIDE 0.9% 1000ML 1,000 ML IV SCH (05:48)
[2018-05-02] MEDS: PIPERACILL/TAZOBAC IV 3.375 GM in DEXTROSE 5% 100ML 100 ML IV SCH ×3 (05:48→21:49)
[2018-05-02 07:07] LABS: BASO % 0.1 %; BASO ABS # 0.01 K/uL (0-0.2); HEMOGLOBIN 13.4 g/dL (12.0-16.0); IG# 0.05 K/uL (0.00-0.02); LYMPH % 13.2 %; LYMPH ABS # 2.24 K/uL (1.2-3.4); MEAN CELL VOLUME 99.7 fL (80-100); MEAN CORPUSCULAR HEMOGLOBIN 34.3 pg (25-34); MEAN CORPUSCULAR HGB CONC 34.4 g/dl (32-36); MEAN PLATELET VOLUME 12.2 fL (7.4-10.4); MONO % 7.1 %; MONO ABS # 1.21 K/uL (0.11-0.59); NEUT % 79.3 %; NEUT ABS # 13.43 K/uL (1.4-6.5); PLATELET COUNT 165 K/uL (130-400); RED CELL DISTRIBUTION WIDTH SD 58.2 fL (36.4-46.3); WHITE BLOOD COUNT 16.94 K/uL (4.8-10.8)
[2018-05-02 07:16] LABS: INR 1.4 (0.9-1.1)
[2018-05-02 07:30] VITALS: BP 162/98; PULSE 94; TEMP 36.6; O2SAT 94
--- NOTE | 2018-05-02 07:30 | Surgery Progress Note ---
Surgery Progress Note Date of Service May 02, 2018. Subjective some pain but controlled serous drainage around JACQUE- no bile sl elev of TB Objective Vital Signs: Date Time Temp Pulse Resp B/P (MAP) Pulse Ox O2 Delivery O2 Flow Rate FiO2 05/02/18 03:46 36.5 107 20 142/84 (103) 93 Room Air 05/01/18 23:40 95 Room Air 2.0 05/01/18 23:10 36.9 110 18 149/92 (111) 95 Room Air 05/01/18 21:13 105 05/01/18 19:12 36.9 119 18 132/97 (109) 93 Room Air 05/01/18 16:32 106 16 96 Room Air 05/01/18 16:05 Room Air 05/01/18 15:38 36.5 103 20 146/81 (102) 95 Room Air 05/01/18 13:35 36.4 101 16 135/75 (95) 94 Room Air 05/01/18 12:35 102 18 136/84 (101) 92 Room Air 05/01/18 11:35 98 16 131/88 (102) 93 Room Air 05/01/18 11:35 98 16 131/88 (102) 93 Room Air 05/01/18 11:05 95 16 137/84 (101) 91 Room Air 05/01/18 11:04 95 16 137/84 (101) 91 Room Air 05/01/18 10:35 36.9 93 18 141/88 (105) 94 Nasal Cannula 2.0 05/01/18 10:35 94 Nasal Cannula 2.0 05/01/18 10:35 94 Nasal Cannula 2.0 05/01/18 10:17 93 24 05/01/18 10:17 93 24 94 05/01/18 10:16 149/103 05/01/18 10:12 92 22 05/01/18 10:12 92 22 94 05/01/18 10:11 142/115 05/01/18 10:10 36.6 92 20 142/97 (114) 93 Nasal Cannula 3 05/01/18 10:07 88 22 05/01/18 10:07 89 22 142/97 95 05/01/18 10:03 143/99 05/01/18 10:02 91 24 94 05/01/18 10:02 92 24 05/01/18 10:01 125/103 7/23/18 09:57 94 23 94 05/01/18 09:57 94 23 05/01/18 09:56 130/86 05/01/18 09:52 94 23 125/74 95 05/01/18 09:52 93 23 05/01/18 09:47 95 18 05/01/18 09:47 94 18 94 05/01/18 09:46 140/81 05/01/18 09:42 95 24 05/01/18 09:42 95 24 93 05/01/18 09:37 98 29 05/01/18 09:37 97 29 91 05/01/18 09:36 122/87 05/01/18 09:32 100 32 120/94 93 05/01/18 09:32 100 32 05/01/18 09:28 120/75 05/01/18 09:27 100 18 05/01/18 09:27 99 18 91 05/01/18 09:27 36.3 99 20 120/75 92 Diffusion Mask 12 General Appearance: no apparent distress Respiratory/Chest: no respiratory distress Abdomen: soft Incision(s): intact, drainage (serous drainage around JACQUE) Laboratory Results: Results Past 24 Hours Test 05/01/18 07:27 05/02/18 06:54 Range/Units Bedside Urine Test NEG NEG White Blood Count 16.94 4.8-10.8 K/uL Red Blood Count 3.91 4.2-5.4 M/uL Hemoglobin 13.4 12.0-16.0 g/dL Hematocrit 39.0 37-47 % Mean Corpuscular Volume 99.7 80-100 fL Mean Corpuscular Hemoglobin 34.3 25-34 pg Mean Corpuscular Hemoglobin Concent 34.4 32-36 g/dl Platelet Count 165 130-400 K/uL Mean Platelet Volume 12.2 7.4-10.4 fL Neutrophils (%) (Auto) 79.3 % Lymphocytes (%) (Auto) 13.2 % Monocytes (%) (Auto) 7.1 % Eosinophils (%) (Auto) 0.0 % Basophils (%) (Auto) 0.1 % Neutrophils # (Auto) 13.43 1.4-6.5 K/uL Lymphocytes # (Auto) 2.24 1.2-3.4 K/uL Monocytes # (Auto) 1.21 0.11-0.59 K/uL Eosinophils # (Auto) 0.00 0-0.5 K/uL Basophils # (Auto) 0.01 0-0.2 K/uL RDW Standard Deviation 58.2 36.4-46.3 fL RDW Coefficient of Variation 16.0 11.5-14.5 % Immature Granulocyte % (Auto) 0.3 % Immature Granulocyte # (Auto) 0.05 0.00-0.02 K/uL Prothrombin Time 14.6 9.0-12.0 SECONDS Prothromb Time International Ratio 1.4 0.9-1.1 Assessment & Plan 05/02/18- s/p lap nisha, lysis of adhesions- very difficult operation overall stable- drainage expected- monitor LFTs- cont IV atbx may need 1-2 more days in hospital begin coumadin- advance per medical team
[2018-05-02 07:41] LABS: ALBUMIN 2.9 gm/dl (3.4-5.0); CALCIUM 8.8 mg/dl (8.5-10.1); CREATININE 0.78 mg/dl (0.60-1.20); POTASSIUM 4.1 mmol/L (3.5-5.1)
[2018-05-02] MEDS: CLONIDINE HCL 0.1 MG TAB PO SCH (09:00)
[2018-05-02] MEDS: DOXEPIN HCL 50 MG CAP PO SCH (09:00)
--- NOTE | 2018-05-02 09:21 | Anesthesiology Progress Note ---
Anesthesia Post Op Note Date & Time May 02, 2018 at 09:21 Vital Signs Pain Intensity: 9.0 Vital Signs Past 12 Hours Date Time Temp Pulse Resp B/P (MAP) Pulse Ox O2 Delivery O2 Flow Rate FiO2 05/02/18 07:30 36.6 94 18 162/98 (119) 94 Room Air 05/02/18 03:46 36.5 107 20 142/84 (103) 93 Room Air 05/01/18 23:40 95 Room Air 2.0 05/01/18 23:10 36.9 110 18 149/92 (111) 95 Room Air Notes Mental Status: alert / awake / arousable, participated in evaluation Pt Amnestic to Procedure: Yes Nausea / Vomiting: adequately controlled Pain: adequately controlled Airway Patency, RR, SpO2: stable & adequate BP & HR: stable & adequate Hydration State: stable & adequate Anesthetic Complications: no major complications apparent
[2018-05-02] MEDS ORDERED: KETOROLAC TROMETHAMINE 15 MG/ML VIAL IV ONE (09:38)
[2018-05-02] MEDS ORDERED: KETOROLAC TROMETHAMINE 15 MG/ML VIAL IV PRN (09:45)
[2018-05-02 10:00] VITALS: O2SAT 94
[2018-05-02] MEDS: GABAPENTIN 600 MG TAB PO SCH ×3 (10:25→21:33)
[2018-05-02] MEDS: HEPARIN SOD 5000 UNIT/0.5 ML CARP SQ SCH ×2 (10:34→21:43)
--- NOTE | 2018-05-02 10:46 | Family Medicine Progress Note ---
Progress Note Date of Service May 02, 2018. Subjective Spoke with pt, resting in bed. Says she didn't sleep well overnight bc of pain at incision site, and increased drainage. Says they will be changing dressing today Tolerating po, voiding appropriately. No BM yet. Discussed PRN albuterol, she says that helps with her breathing at night, but currently denies SOB. ROS See HPI for pertinent positives and negatives. Otherwise denies new headache, vision change, chest pain, dyspnea, abdominal pain, loose or bloody stools, dysuria, or numbness tingling in extremities. Medications Current Inpatient Medications Medications (Trade) Dose Ordered Sig/Chey Route Start Time Stop Time Status Last Admin Dose Admin Acetaminophen (Tylenol Tab) 650 mg Q4H PRN PO 04/30/18 02:00 05/30/18 01:59 Al Hydrox/Mg Hydrox/Simethicone (Maalox Max Susp) 15 ml Q4H PRN PO 04/30/18 02:00 05/30/18 01:59 Magnesium Hydroxide (Milk Of Magnesia Susp) 30 ml Q6H PRN PO 04/30/18 02:00 05/30/18 01:59 Polyethylene (Miralax Powder Packet) 17 gm DAILY PRN PO 04/30/18 02:00 05/30/18 01:59 Albuterol (Ventolin Hfa Inhaler) 2 puffs Q4 PRN INH 04/30/18 02:00 05/30/18 01:59 Clonidine HCl (Catapres Tab) 0.1 mg DAILY PO 04/30/18 09:00 05/30/18 08:59 Doxepin HCl (Sinequan Cap) 100 mg DAILY PO 04/30/18 09:00 05/30/18 08:59 Gabapentin (Neurontin Tab) 1,200 mg TID PO 04/30/18 09:00 05/30/18 08:59 05/02/18 10:25 1,200 MG Lisinopril (Zestril Tab) 10 mg DAILY PO 04/30/18 09:00 05/30/18 08:59 Future Hold 04/30/18 09:12 10 MG Albuterol/ Ipratropium (Duoneb) 3 ml Q4R PRN INH 04/30/18 02:00 05/30/18 01:59 05/01/18 16:31 3 ML Morphine Sulfate (MoRPHine SULFATE INJ) 4 mg Q4H PRN IV 04/30/18 02:00 05/14/18 01:59 04/30/18 13:21 4 MG Piperacillin Sod/ Tazobactam Sod 3.375 gm/Dextrose 115 ml @ 28.75 mls/ hr Q8H IV 04/30/18 06:00 05/10/18 05:59 05/02/18 05:48 28.75 MLS/HR Miscellaneous Information (Consult) 1 ea UD PRN N/A 04/30/18 02:45 05/30/18 02:44 Hydromorphone HCl (Dilaudid Inj) 0.5 mg Q3H PRN IV 05/01/18 09:15 05/15/18 09:14 05/01/18 21:09 0.5 MG Hydromorphone HCl (Dilaudid Inj) 1 mg Q3H PRN IV 05/01/18 09:15 05/15/18 09:14 05/02/18 08:08 1 MG Promethazine HCl 25 mg/Sodium Chloride 51 ml @ 204 mls/hr Q6H PRN IV 05/01/18 09:15 05/31/18 09:14 Ondansetron HCl (Zofran Inj) 4 mg Q6H PRN IV 05/01/18 09:15 05/31/18 09:14 Promethazine HCl 12.5 mg/Sodium Chloride 50.5 ml @ 204 mls/hr Q6H PRN IV 05/01/18 09:30 05/31/18 09:29 Nystatin (Mycostatin Powder) 1 appln DAILY PRN EXT 05/01/18 22:45 05/31/18 22:44 Heparin Sodium (Porcine) (Heparin Sq 5000 Unit/0.5ml) 5,000 unit Q12 SQ 05/02/18 10:00 06/01/18 09:59 05/02/18 10:34 5,000 UNIT Ketorolac Tromethamine (Toradol Inj) 15 mg Q6H PRN IV 05/02/18 09:45 05/07/18 09:44 Objective Vital Signs Date Time Temp Pulse Resp B/P (MAP) Pulse Ox O2 Delivery O2 Flow Rate FiO2 05/02/18 10:00 94 Room Air 05/02/18 07:30 36.6 94 18 162/98 (119) 94 Room Air 05/02/18 03:46 36.5 107 20 142/84 (103) 93 Room Air 05/01/18 23:40 95 Room Air 2.0 05/01/18 23:10 36.9 110 18 149/92 (111) 95 Room Air 05/01/18 21:13 105 05/01/18 19:12 36.9 119 18 132/97 (109) 93 Room Air 05/01/18 16:32 106 16 96 Room Air 05/01/18 16:05 Room Air 05/01/18 15:38 36.5 103 20 146/81 (102) 95 Room Air 05/01/18 13:35 36.4 101 16 135/75 (95) 94 Room Air 05/01/18 12:35 102 18 136/84 (101) 92 Room Air 05/01/18 11:35 98 16 131/88 (102) 93 Room Air 05/01/18 11:35 98 16 131/88 (102) 93 Room Air 05/01/18 11:05 95 16 137/84 (101) 91 Room Air 05/01/18 11:04 95 16 137/84 (101) 91 Room Air Physical Exam Notes: GENERAL: Awake, alert, well-appearing, in no distress. Obese. HENT: Normocephalic, atraumatic. EYES: Normal conjunctiva. Sclera non-icteric. EOMI NECK: Supple. Full range of motion. no JVD RESPIRATORY: Clear to auscultation. No rhonchi or wheeze CARDIAC: Regular rate, normal rhythm. Extremities warm and well perfused. Pulses equal. ABDOMEN: Soft, non-distended. No tenderness to palpation. No rebound or guarding. No masses. Incision site in tact x3, drain draining serosanguinous fluid. LOWER EXTREMITIES: Calves are equal size bilaterally and non-tender. No edema. No discoloration. NEURO: No motor deficits noted. SKIN: No rash or jaundice noted. Laboratory Results 05/02/18 06:54 Red Blood Count 3.91, Mean Corpuscular Volume 99.7, Mean Corpuscular Hemoglobin 34.3, Mean Corpuscular Hemoglobin Concent 34.4, Mean Platelet Volume 12.2, Neutrophils (%) (Auto) 79.3, Lymphocytes (%) (Auto) 13.2, Monocytes (%) (Auto) 7.1, Eosinophils (%) (Auto) 0.0, Basophils (%) (Auto) 0.1, Neutrophils # (Auto) 13.43, Lymphocytes # (Auto) 2.24, Monocytes # (Auto) 1.21, Eosinophils # (Auto) 0.00, Basophils # (Auto) 0.01 05/02/18 06:54 Test 05/02/18 06:54 White Blood Count 16.94 K/uL (4.8-10.8) Red Blood Count 3.91 M/uL (4.2-5.4) Hemoglobin 13.4 g/dL (12.0-16.0) Hematocrit 39.0 % (37-47) Mean Corpuscular Volume 99.7 fL (80-100) Mean Corpuscular Hemoglobin 34.3 pg (25-34) Mean Corpuscular Hemoglobin Concent 34.4 g/dl (32-36) Platelet Count 165 K/uL (130-400) Mean Platelet Volume 12.2 fL (7.4-10.4) Neutrophils (%) (Auto) 79.3 % Lymphocytes (%) (Auto) 13.2 % Monocytes (%) (Auto) 7.1 % Eosinophils (%) (Auto) 0.0 % Basophils (%) (Auto) 0.1 % Neutrophils # (Auto) 13.43 K/uL (1.4-6.5) Lymphocytes # (Auto) 2.24 K/uL (1.2-3.4) Monocytes # (Auto) 1.21 K/uL (0.11-0.59) Eosinophils # (Auto) 0.00 K/uL (0-0.5) Basophils # (Auto) 0.01 K/uL (0-0.2) RDW Standard Deviation 58.2 fL (36.4-46.3) RDW Coefficient of Variation 16.0 % (11.5-14.5) Immature Granulocyte % (Auto) 0.3 % Immature Granulocyte # (Auto) 0.05 K/uL (0.00-0.02) Prothrombin Time 14.6 SECONDS (9.0-12.0) Prothromb Time International Ratio 1.4 (0.9-1.1) Anion Gap 5.0 mmol/L (3-11) Est Creatinine Clear Calc Drug Dose 121.7 ml/min Estimated GFR () 103.5 Estimated GFR (Non- 89.3 BUN/Creatinine Ratio 8.8 (10-20) Calcium Level 8.8 mg/dl (8.5-10.1) Total Bilirubin 0.7 mg/dl (0.2-1) Aspartate Amino Transf (AST/SGOT) 35 U/L (15-37) Alanine Aminotransferase (ALT/SGPT) 45 U/L (12-78) Alkaline Phosphatase 93 U/L (45-117) Total Protein 7.0 gm/dl (6.4-8.2) Albumin 2.9 gm/dl (3.4-5.0) Globulin 4.1 gm/dl (2.5-4.0) Albumin/Globulin Ratio 0.7 (0.9-2) Assessment and Plan 47 F here for RUQ pain, found to have cholelithiasis, + Rothman sign and mild gallbladder distention on ultrasound. Acute cholecystitis, s/p laparoscopic cholecystectomy - PODay 1 - restart lisinopril, and anticoagulant as below - considering xarelto instead for anticoagulation given outpatient struggle with coumadin, inr checks, etc. Pt is amenable per conversation with attending. - pain control: dilaudid 0.5mg q3h, dilaudid 1mg q3h prn and toradol 15mg q6 PRN (morphine dc'ed, stepping down) - IV Zosyn running - zofran prn - GI consulted, considered MRCP but will defer given plan for cholangiogram initially, however was not able to be done - can defer MRCP if needed/sx's unresolved, on outpatient basis. H/o pulmonary emboli February 2018 - currently on heparin 5000 q12 IV here - pt expresses a desire to consider NOAC, discussed. Likely start tomorrow. Chronic pain - continue home gabapentin 1200 mg TID - doing well Depression/anxiety - continue doxepin - no acute issues HTN - continue clonidine 0.1 mg daily - resume losartan as above DVT ppx: Heparin 5000 units q12 FEN/GI: - regular diet - no fluids indicated at this time CODE: full Dispo: med/surg. Resident Physician Supervision Note: I interviewed and examined the patient. Discussed with Dr. Koenig and agree with findings and plan as documented in the note. Any exceptions or clarifications are listed here: None Documented By: Mike Canchola pain - increased. dilauded helping but still bad in between re-discussed anticoagulation - she understands risks/benefits and controversy w NAOC and BMI in her range but after weighing options would prefer to proceed w NOAC once allowed by surgery to start full dose anticoagulation discussion of BMI as related to NOAC then leads to her asking very good questions about weight loss/weight gain in general. was unable to fully discern lifestyle at this time but she noted that she does not exercise right now (thought she is willing) she drinks mountain dew by the 24oz bottle, and her son has weight issues as well. thyroid has been normal. vitals noted nad breathing unlabored no pallor or icterus cholecystectomy - post op. medically stable, symptom control. since Cr Ok - add toradol. PE - resume full anticoagulation by tomorrow unless surgery feels this is still not safe at that time - heparin SQ initiated by surgery. continue. anticipate starting xarelto 15mg bid x 21 days then 20mg daily for rest of her time on anticoagulation after above discussions morbid obesity w BMI 41.9 - extensive discussion on "physics of weight loss" and how to "spend more calories than she earns" otherwise as above Continued [facility] stay due to: multiple IV medications needed Resident Tracking Resident Involvement: Resident Care Provided Care Provided: Adult Hospital Medicine
[2018-05-02 15:13] VITALS: BP 133/81; PULSE 101; TEMP 36.6; O2SAT 94
[2018-05-02] MEDS ORDERED: WARFARIN SOD 10 MG TAB PO SCH (16:00)
[2018-05-02 23:25] VITALS: BP 132/78; PULSE 99; TEMP 36.8; O2SAT 94
[2018-05-03] MEDS: HYDROmorphone INJ 2 MG/ML SYR/VIAL IV PRN ×2 (01:04→08:39)
[2018-05-03 05:28] LABS: BASO % 0.1 %; BASO ABS # 0.01 K/uL (0-0.2); EOS % 1.1 %; EOS ABS # 0.15 K/uL (0-0.5); HEMATOCRIT 37.4 % (37-47); HEMOGLOBIN 12.5 g/dL (12.0-16.0); IG# 0.05 K/uL (0.00-0.02); LYMPH % 26.5 %; MEAN CELL VOLUME 101.1 fL (80-100); MEAN CORPUSCULAR HEMOGLOBIN 33.8 pg (25-34); MEAN CORPUSCULAR HGB CONC 33.4 g/dl (32-36); MEAN PLATELET VOLUME 12.1 fL (7.4-10.4); MONO % 8.6 %; MONO ABS # 1.14 K/uL (0.11-0.59); NEUT % 63.3 %; NEUT ABS # 8.36 K/uL (1.4-6.5); PLATELET COUNT 177 K/uL (130-400); RED CELL DISTRIBUTION WIDTH CV 16.2 % (11.5-14.5); RED CELL DISTRIBUTION WIDTH SD 60.4 fL (36.4-46.3); WHITE BLOOD COUNT 13.21 K/uL (4.8-10.8)
[2018-05-03] MEDS: PIPERACILL/TAZOBAC IV 3.375 GM in DEXTROSE 5% 100ML 100 ML IV SCH (05:35)
[2018-05-03 05:48] LABS: ALBUMIN 2.7 gm/dl (3.4-5.0); CALCIUM 8.2 mg/dl (8.5-10.1); CREATININE 0.88 mg/dl (0.60-1.20); TOTAL PROTEIN 6.7 gm/dl (6.4-8.2)
[2018-05-03] MEDS ORDERED: OXYCODONE/ACETAMINOPHEN 5-325 TAB PO PRN ×2 (06:15)
[2018-05-03] MEDS ORDERED: AMOX875T PO (06:39)
[2018-05-03] MEDS ORDERED: OXYC-57 PO (06:39)
--- NOTE | 2018-05-03 06:41 | Discharge Instructions ---
Discharge Instructions Date of Service May 03, 2018. Admission Reason for Admission: Acute Cholecystitis, Subtherapeutic Inr Discharge Discharge Diagnosis / Problem: cholecystitis Discharge Goals Goal(s): Decrease discomfort, Improve function, Improve disease control Activity Recommendations Activity Limitations: as noted below Lifting Limitations: no more than 25 pounds Exercise/Sports Limitations: until after follow-up appointment May Resume Sexual Activity: when tolerated Shower/Bathe: tomorrow Driving or Machine Use: resume 3 days after discharge . Instructions / Follow-Up Instructions / Follow-Up SPECIAL CARE INSTRUCTIONS: * Cover incisions and change daily for comfort/drainage. * Empty drain 2-3 times per day and record. * May use ibuprofen for pain as tolerated. * Expect some swelling and bruising. Call your doctor if: * Temperature above 101 degrees * Pain not relieved by pain medicine ordered * There is increased drainage or redness from any incision * You have any unanswered questions or concerns [phone]. FOLLOW UP VISIT: If not already scheduled, please call the office for a follow-up visit. for next Tue/ Tue- drain removal OFFICE PHONE NUMBER: Dr. Kate Office Current Hospital Diet Patient's current hospital diet: Regular Diet Discharge Diet Recommended Diet: Regular Diet Procedures Procedures Performed: Laparoscopic Cholecystectomy, lysis of adhesions Pending Studies Studies pending at discharge: no Laboratory Results Hemoglobin A1c Test 02/10/18 10:20 Range/Units Estimated Average Glucose 117 mg/dl Hemoglobin A1c 5.7 H 4.5-5.6 % Lipid Panel Test 02/11/18 04:07 Range/Units Triglycerides Level 204 H 0-150 mg/dl Cholesterol Level 166 0-200 mg/dl HDL Cholesterol 20 mg/dl Cholesterol/HDL Ratio 8.3 LDL Cholesterol, Calculated 105 mg/dl Medical Emergencies . Who to Call and When: Medical Emergencies: If at any time you feel your situation is an emergency, please call 911 immediately. . Non-Emergent Contact Non-Emergency issues call your: Primary Care Provider, Surgeon . "Provider Documentation" section prepared by Ramin Kate. .
--- NOTE | 2018-05-03 06:43 | Surgery Progress Note ---
Surgery Progress Note Date of Service May 03, 2018. Subjective some pain no N/V drain - serous fluid Objective Vital Signs: Date Time Temp Pulse Resp B/P (MAP) Pulse Ox O2 Delivery O2 Flow Rate FiO2 05/03/18 00:00 Room Air 05/02/18 23:25 36.8 99 16 132/78 (96) 94 Room Air 05/02/18 15:20 Room Air 05/02/18 15:13 36.6 101 16 133/81 (98) 94 Room Air 05/02/18 10:00 94 Room Air 05/02/18 08:00 Room Air 05/02/18 07:30 36.6 94 18 162/98 (119) 94 Room Air General Appearance: no apparent distress Respiratory/Chest: no respiratory distress Abdomen: soft Incision(s): drainage (expected) Laboratory Results: Results Past 24 Hours Test 05/02/18 06:54 05/03/18 05:20 Range/Units White Blood Count 16.94 13.21 4.8-10.8 K/uL Red Blood Count 3.91 3.70 4.2-5.4 M/uL Hemoglobin 13.4 12.5 12.0-16.0 g/dL Hematocrit 39.0 37.4 37-47 % Mean Corpuscular Volume 99.7 101.1 80-100 fL Mean Corpuscular Hemoglobin 34.3 33.8 25-34 pg Mean Corpuscular Hemoglobin Concent 34.4 33.4 32-36 g/dl Platelet Count 165 177 130-400 K/uL Mean Platelet Volume 12.2 12.1 7.4-10.4 fL Neutrophils (%) (Auto) 79.3 63.3 % Lymphocytes (%) (Auto) 13.2 26.5 % Monocytes (%) (Auto) 7.1 8.6 % Eosinophils (%) (Auto) 0.0 1.1 % Basophils (%) (Auto) 0.1 0.1 % Neutrophils # (Auto) 13.43 8.36 1.4-6.5 K/uL Lymphocytes # (Auto) 2.24 3.50 1.2-3.4 K/uL Monocytes # (Auto) 1.21 1.14 0.11-0.59 K/uL Eosinophils # (Auto) 0.00 0.15 0-0.5 K/uL Basophils # (Auto) 0.01 0.01 0-0.2 K/uL RDW Standard Deviation 58.2 60.4 36.4-46.3 fL RDW Coefficient of Variation 16.0 16.2 11.5-14.5 % Immature Granulocyte % (Auto) 0.3 0.4 % Immature Granulocyte # (Auto) 0.05 0.05 0.00-0.02 K/uL Prothrombin Time 14.6 9.0-12.0 SECONDS Prothromb Time International Ratio 1.4 0.9-1.1 Sodium Level 136 139 136-145 mmol/L Potassium Level 4.1 4.0 3.5-5.1 mmol/L Chloride Level 107 107 98-107 mmol/L Carbon Dioxide Level 24 28 21-32 mmol/L Anion Gap 5.0 4.0 3-11 mmol/L Blood Urea Nitrogen 7 8 7-18 mg/dl Creatinine 0.78 0.88 0.60-1.20 mg/dl Est Creatinine Clear Calc Drug Dose 121.7 107.8 ml/min Estimated GFR () 103.5 89.4 Estimated GFR (Non- 89.3 77.2 BUN/Creatinine Ratio 8.8 8.8 10-20 Random Glucose 197 145 70-99 mg/dl Calcium Level 8.8 8.2 8.5-10.1 mg/dl Total Bilirubin 0.7 0.6 0.2-1 mg/dl Aspartate Amino Transf (AST/SGOT) 35 42 15-37 U/L Alanine Aminotransferase (ALT/SGPT) 45 40 12-78 U/L Alkaline Phosphatase 93 93 45-117 U/L Total Protein 7.0 6.7 6.4-8.2 gm/dl Albumin 2.9 2.7 3.4-5.0 gm/dl Globulin 4.1 4.0 2.5-4.0 gm/dl Albumin/Globulin Ratio 0.7 0.7 0.9-2 Direct Bilirubin 0.3 0-0.2 mg/dl Assessment & Plan 05/03/18- overall stable, add Percocet- she doesn't feel she is ready to go home alone yet- cont IV atbx today- plan d/c tomorrow if ok with medical team- 05/02/18- s/p lap nisha, lysis of adhesions- very difficult operation overall stable- drainage expected- monitor LFTs- cont IV atbx may need 1-2 more days in hospital begin coumadin- advance per medical team 05/02/18- s/p lap nisha, lysis of adhesions- very difficult operation overall stable- drainage expected- monitor LFTs- cont IV atbx may need 1-2 more days in hospital begin coumadin- advance per medical team
[2018-05-03 07:29] VITALS: BP 125/82; PULSE 90; TEMP 36.8; O2SAT 95
[2018-05-03] MEDS: CLONIDINE HCL 0.1 MG TAB PO SCH (08:29)
[2018-05-03] MEDS: DOXEPIN HCL 50 MG CAP PO SCH (08:30)
[2018-05-03] MEDS: GABAPENTIN 600 MG TAB PO SCH ×2 (08:30→14:05)
[2018-05-03] MEDS: LISINOPRIL 10 MG TAB PO SCH (08:31)
[2018-05-03] MEDS: HEPARIN SOD 5000 UNIT/0.5 ML CARP SQ SCH (09:07)
[2018-05-03] MEDS ORDERED: RIVAROXABAN TAB 15 MG TAB PO ONE (09:27)
[2018-05-03] MEDS ORDERED: KETOROLAC TROMETHAMINE 30 MG/ML VIAL IV. PRN (09:30)
[2018-05-03] MEDS ORDERED: KETOROLAC TROMETHAMINE 30 MG/ML VIAL IV. ONE (09:45)
--- NOTE | 2018-05-03 14:11 | Discharge Instructions ---
Discharge Instructions Date of Service May 03, 2018. Admission Reason for Admission: Acute Cholecystitis, Subtherapeutic Inr Discharge Discharge Diagnosis / Problem: Acute cholecystitis Discharge Goals Goal(s): Decrease discomfort, Improve disease control, Diagnostic testing, Therapeutic intervention Activity Recommendations Activity Limitations: per Instructions/Follow-up section . Instructions / Follow-Up Instructions / Follow-Up Please see Dr. Kate's instructions regarding limitations on activity and wound care. Regarding your need for blood thinning given your history of lung clots - we discussed the risks and benefits of a newer agent like xarelto. You will likely only need one more month to finish your course of treatment. Please use like this: 15 mg tablets, take one twice a day for 21 days (3 weeks). Then take the 20 mg tablet, take one once a day for 7 days. (1 week). Should Dr. Pérez want to lengthen your treatment, he will send in a script for you to continue 20mg tablet once a day for the length of time he chooses. Typically treatment for lung clots last a total of 3-[address] Pérez's office to make a follow up appointment to discuss this hospital stay and your new medication Xarelto. We also discussed cutting out soda from your diet to help with weight loss. Dr. Pérez's office also has services for weight loss if you're interested. Please let him know. Be Well A Arya Current Hospital Diet Patient's current hospital diet: Regular Diet Discharge Diet Recommended Diet: Regular Diet Procedures Procedures Performed: Laparoscopic Cholecystectomy, lysis of adhesions Pending Studies Studies pending at discharge: no Laboratory Results Hemoglobin A1c Test 02/10/18 10:20 Range/Units Estimated Average Glucose 117 mg/dl Hemoglobin A1c 5.7 H 4.5-5.6 % Lipid Panel Test 02/11/18 04:07 Range/Units Triglycerides Level 204 H 0-150 mg/dl Cholesterol Level 166 0-200 mg/dl HDL Cholesterol 20 mg/dl Cholesterol/HDL Ratio 8.3 LDL Cholesterol, Calculated 105 mg/dl Medical Emergencies . Who to Call and When: Medical Emergencies: If at any time you feel your situation is an emergency, please call 911 immediately. . Non-Emergent Contact Non-Emergency issues call your: Primary Care Provider, Surgeon Call Non-Emergent contact if: you have a fever, temperature is above 101.5, your pain is unusual for you, your pain is concerning you, wound has increased drainage, wound has increased redness, wound has increased pain . . "Provider Documentation" section prepared by Daisy Koenig. . Court Officer Recommendations Court Officer Recommendations: Activity Recommendations Activity Limitations: as noted below Lifting Limitations: no more than 25 pounds Exercise/Sports Limitations: until after follow-up appointment May Resume Sexual Activity: when tolerated Shower/Bathe: tomorrow Driving or Machine Use: resume 3 days after discharge . Instructions / Follow-Up Instructions / Follow-Up SPECIAL CARE INSTRUCTIONS: * Cover incisions and change daily for comfort/drainage. * Empty drain 2-3 times per day and record. * May use ibuprofen for pain as tolerated. * Expect some swelling and bruising. Call your doctor if: * Temperature above 101 degrees * Pain not relieved by pain medicine ordered * There is increased drainage or redness from any incision * You have any unanswered questions or concerns [phone]. FOLLOW UP VISIT: If not already scheduled, please call the office for a follow-up visit. for next Tue/ Tue- drain removal OFFICE PHONE NUMBER: Dr. Kate Office
[2018-05-03] MEDS ORDERED: XRL15 PO (14:16)
[2018-05-03] MEDS ORDERED: XRL20 PO (14:16)
--- NOTE | 2018-05-03 14:22 | Discharge Summary ---
Discharge Summary Date of Service May 03, 2018. Discharge Summary Admission Date: Apr 30, 2018 at 02:16 Discharge Date: May 03, 2018 Discharge Disposition: Home with services Principal Diagnosis: Acute cholecystitis Problems/Secondary Diagnoses: H/o PE on anticoagulation Immunizations: Have You Had Influenza Vaccine: No History of Tetanus Vaccine?: Yes History of Pneumococcal: No History of Hepatitis B Vaccine: Unknown Procedures: laparoscopic cholecystectomy Consultations: Surgery - Dr. Kate Medication Reconciliation New Medications: Amoxicillin & Pot Clavulanate (Augmentin 875-125 mg) 1 Tab Tab 1 TAB PO BID, #10 TAB Oxycodone/Acetaminophen 5MG/325MG (Percocet 5MG/325MG) Tab 1-2 TABLETS PO Q6H PRN for Pain, #40 TAB PAIN Rivaroxaban (Xarelto) 15 Mg Tab 15 MG PO BID for 21 Days, #42 TAB Rivaroxaban (Xarelto) 20 Mg Tab 20 MG PO DAILY for 7 Days, #7 TAB Continued Medications: Albuterol Hfa (Ventolin Hfa) 200 Puffs/49123 Mcg Aers 2 PUFFS INH Q4 PRN for SOB/Wheezing, #1 INHALER Clonidine Hcl (Catapres) 0.1 Mg Tab 0.1 MG PO DAILY, TAB Cyclobenzaprine Hcl (Flexeril) 10 Mg Tab 10 MG PO BID, TAB Doxepin (Sinequan) 50 Mg Cap 100 MG PO DAILY, CAP Gabapentin (Neurontin) 600 Mg Tab 1200 MG PO TID, TAB Ipratropium-Albuterol (Duoneb) 3 Ml Nebu 1 TREATMENT INH Q4H PRN for Shortness of Breath Lisinopril (Prinivil) 10 Mg Tab 10 MG PO DAILY, TAB Sumatriptan Succinate (Imitrex) 25 Mg Tab 25 MG PO DIRECTED PRN for Migraine, TAB Discontinued Medications: Warfarin Sod (Coumadin) 5 Mg Tab 5 MG PO DAILY Discharge Exam Vitals are stable on day of discharge, discussed discharge plan including follow up with Dr. Kate. Pt endorses that pain is controlled with PO pain meds. Tolerating PO. Ambulating. ROS See HPI for pertinent positives and negatives. Otherwise denies new headache, vision change, chest pain, dyspnea, loose or bloody stools. PHYSICAL EXAM GENERAL: Awake, alert, well-appearing, in no distress. Obese. HENT: Normocephalic, atraumatic. EYES: Normal conjunctiva. Sclera non-icteric. EOMI NECK: Supple. Full range of motion. no JVD RESPIRATORY: Clear to auscultation. No rhonchi or wheeze CARDIAC: Regular rate, normal rhythm. Extremities warm and well perfused. Pulses equal. ABDOMEN: Soft, non-distended. Very mild tenderness to palpation. No rebound or guarding. No masses. Incision site in tact x3, drain draining serosanguinous fluid. LOWER EXTREMITIES: Calves are equal size bilaterally and non-tender. No edema. No discoloration. NEURO: No motor deficits noted. SKIN: No rash or jaundice noted. Hospital Course Ms. Vick is a 47 F who drove self to ED after waking up with severe RUQ abdominal pain 06/19. Pt was afebrile, white count not elevated, lipase normal. U /S was done which showed distended GB, with stones and + Rothman's, and general surgery was consulted. Pt kept overnight for monitoring, decision made by surgery for operative measures but due to elevated INR, planned for next day. Pt underwent laparoscopic cholecystectomy on 05/02, tolerated well. Were going to try for cholangiogram, but was unable to intraoperatively. Advanced diet, gradually downgraded pain medications from IV form to PO. Remained afebrile and hemodynamically stable up until day of discharge. Sent home with po pain meds and antibiotic as above. Regarding h/o PE - at about month 3 of treatment with warfarin. Pt expressed a frustration with treatment and constant INR draws. Discussed NOACs, risks, benefits. Pt agreed to xarelto - starter pack ordered and sent with coupon for 1 free month. This would complete ~4th month when finished. Discussed that she would discuss with PCP regarding further treatment/refills. Verbalized understanding. Also discussed weight loss - in particular cutting out the 4 mountain dews per day. Laboratory Results Hemoglobin A1c Test 02/10/18 10:20 Range/Units Estimated Average Glucose 117 mg/dl Hemoglobin A1c 5.7 H 4.5-5.6 % Lipid Panel Test 02/11/18 04:07 Range/Units Triglycerides Level 204 H 0-150 mg/dl Cholesterol Level 166 0-200 mg/dl HDL Cholesterol 20 mg/dl Cholesterol/HDL Ratio 8.3 LDL Cholesterol, Calculated 105 mg/dl A Arya Resident Physician Supervision Note: I interviewed and examined the patient. Discussed with Dr. Koenig and agree with findings and plan as documented in the note. Any exceptions or clarifications are listed here: None Documented By: Mike Canchola feeling better wants to go home vitals noted nad breathing unlabored no pallor or icterus cholecystectomy - post op. medically stable, symptom control. stable for home. outpt surgery f/u PE - resume full anticoagulation tomorrow - after extensive discussions will finish current anticoagulation with xarelto (see prior notes, but she knows about theoretical increased risk of treatment failure w her BMI but wisely notes that she's also been quite difficult to keep in range w coumadin, and accepts risks) -since questionable risk of failure w high BMI - will treat w 15mg bid x21 days then 20mg daily - probably only needs ?4 more weeks anticoagulation given PE was in february. morbid obesity w BMI 41.9 - extensive discussion on "physics of weight loss" and how to "spend more calories than she earns" mountain dew is biggest culprit. PCP f/u otherwise as above Total Time Spent: Greater than 30 minutes This includes examination of the patient, discharge planning, medication reconciliation, and communication with other providers. Discharge Instructions Please refer to the electronic Patient Visit Report (Discharge Instructions) for additional information. Follow-Up FOLLOW UP VISIT: If not already scheduled, please call the office for a follow-up visit. . for next Mon/ Tue- drain removal OFFICE PHONE NUMBER: Dr. Kate Office With PCP in 1-2 weeks from day of discharge Additional Copies To Aiden Pérez MD Resident Tracking Resident Involvement: Resident Care Provided Care Provided: Adult Hospital Medicine
[2018-05-03 16:20] VITALS: BP 125/82; PULSE 90; TEMP 36.8; O2SAT 95
[2018-05-04] MEDS ORDERED: RIVAROXABAN TAB 15 MG TAB PO SCH (09:00)
== END 2018-05-03 18:01 | disposition home health service (06) | DRG 418 ==
LOC: C.EDB 22:54 → C.MSW 04-30 02:16 → ENRESERV 04-30 02:49 → C.MSW 04-30 03:15
PROVIDERS: ADMIT Internal Medicine; ATTEND Family Medicine
PROC: 0F944ZZ Drainage of Gallbladder, Percutaneous Endoscopic Approach (ICD-10-PCS; principal; 2018-05-01 07:00)
PROC: 0FT44ZZ Resection of Gallbladder, Percutaneous Endoscopic Approach (ICD-10-PCS; principal; 2018-05-01 07:00)
DX: K80.12 Calculus of gallbladder with acute and chronic cholecystitis without obstruction (principal); Z68.41 Body mass index [BMI] 40.0-44.9, adult; I10 Essential (primary) hypertension; Z87.891 Personal history of nicotine dependence; K76.0 Fatty (change of) liver, not elsewhere classified; J44.9 Chronic obstructive pulmonary disease, unspecified; T45.516A Underdosing of anticoagulants, initial encounter; Y92.009 Unspecified place in unspecified non-institutional (private) residence as the place of occurrence of the external cause; F41.8 Other specified anxiety disorders; E66.01 Morbid (severe) obesity due to excess calories; Z86.711 Personal history of pulmonary embolism; Z79.01 Long term (current) use of anticoagulants

== ENCOUNTER 2018-05-11 17:11 | Emergency (ER) | payer OTHER ==
[~2018-05-11] VITALS: Ht 172.7 cm; Wt 137.5 kg
[~2018-05-11 17:11] MED LIST changes: +AMOX875T PO; -CMD5 PO; +OXYC-57 PO; +XRL15 PO; +XRL20 PO
[2018-05-11 17:20] VITALS: TEMP 36.9; Ht 172.7 cm; Wt 137.5 kg
[2018-05-11] MEDS ORDERED: SODIUM CHLORIDE 0.9% 1000ML 1,000 ML IV STA (17:35)
[2018-05-11] MEDS ORDERED: ACETAMINOPHEN IV 100 ML IV STA (17:35)
--- NOTE | 2018-05-11 17:44 | EMERGENCY ROOM VISIT NOTE ---
History Report prepared by Lane: Grisel Wilson Under the Supervision of: Dr. Martin Jordan M.D. First contact with patient: 17:29 Chief Complaint: ABDOMINAL PAIN Stated Complaint: SEVERE ABDOMINAL PAIN, FEVER, S/P GALL BLADDER PRISCA Nursing Triage Summary: Patient had gallbladder out of Tuesday. Patient had low grade fever 99.3F and chills last night. Pain is worsening. Patient took Tylenol 0800 today. 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 She notes she had a cholecystectomy done 10 days sloop captain and since then, she has had worsening pain. She states she called her surgeon, Dr. Kate General Surgery, this morning who recommended she come into the ED. She does report that Dr. Kate told her that they found many lesions during her cholecystectomy. The patient states she had her tube taken out yesterday and rates her pain as an 8/10 in severity yesterday , but a 9/10 in severity today. She has nausea but denies any vomiting, diarrhea , dysuria, or blood in her urine. She reports she was taking Percocet to alleviate her pain but it was only a 5 day supply and she ran out. 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 A total of ten systems were reviewed and were otherwise negative. Past Medical & Surgical Medical Problems: (1) ally PE, slurry speech comes and goes, and HTN (2) Brain cyst (3) Bronchitis (4) Hypertension Family History Cancer Diabetes mellitus Heart disease Hypertension Social History Smoking Status: Former Smoker Alcohol Use: none Drug Use: none Marital Status: Housing Status: lives with family Occupation Status: unemployed Current/Historical Medications Scheduled Clonidine Hcl (Catapres), 0.1 MG PO DAILY Cyclobenzaprine Hcl (Flexeril), 10 MG PO BID Doxepin (Sinequan), 100 MG PO DAILY Gabapentin (Neurontin), 1,200 MG PO TID Lisinopril (Prinivil), 10 MG PO DAILY Rivaroxaban (Xarelto), 15 MG PO DAILY Scheduled PRN Albuterol Hfa (Ventolin Hfa), 2 PUFFS INH Q4 PRN for SOB/Wheezing Ipratropium-Albuterol (Duoneb), 1 TREATMENT INH Q4H PRN for Shortness of Breath Morphine Sulfate Ir (Morphine Sulfate Ir), 0 PO QID PRN for Severe Pain Sumatriptan Succinate (Imitrex), 25 MG PO DIRECTED PRN for Migraine Allergies Coded Allergies: No Known Allergies (Verified , 05/11/18) Physical Exam Vital Signs Date Time Temp Pulse Resp B/P (MAP) Pulse Ox O2 Delivery O2 Flow Rate FiO2 05/11/18 21:23 66 16 110/67 98 05/11/18 18:38 88 18 102/67 96 Room Air 05/11/18 17:20 36.9 111 18 137/84 96 Room Air Physical Exam GENERAL: Awake, alert, well-appearing, in no distress HENT: Normocephalic, atraumatic. Oropharynx unremarkable. [Mucous membranes are dry.] EYES: Normal conjunctiva. Sclera non-icteric. NECK: Supple. No nuchal rigidity. FROM. No JVD. RESPIRATORY: Clear to auscultation. CARDIAC: Regular rate, normal rhythm. Extremities warm and well perfused. Pulses equal. ABDOMEN: Soft, non-distended. Mild tenderness to the RUQ at prior nisha tube site. No rebound or guarding. No masses. RECTAL: Deferred. MUSCULOSKELETAL: Chest examination reveals no tenderness. The back is symmetrical on inspection without obvious abnormality. There is no CVA tenderness to palpation. No joint edema. LOWER EXTREMITIES: Calves are equal size bilaterally and non-tender. No edema. No discoloration. NEURO: Normal sensorium. No sensory or motor deficits noted. SKIN: No rash or jaundice noted. Medical Decision & Procedures Laboratory Results 05/11/18 18:35 Red Blood Count 4.14, Mean Corpuscular Volume 98.6, Mean Corpuscular Hemoglobin 34.3, Mean Corpuscular Hemoglobin Concent 34.8, Mean Platelet Volume 11.9, Neutrophils (%) (Auto) 63.2, Lymphocytes (%) (Auto) 23.6, Monocytes (%) (Auto) 9.7, Eosinophils (%) (Auto) 3.0, Basophils (%) (Auto) 0.2, Neutrophils # (Auto) 6.16, Lymphocytes # (Auto) 2.30, Monocytes # (Auto) 0.94, Eosinophils # (Auto) 0.29, Basophils # (Auto) 0.02 05/11/18 18:35 Test 05/11/18 18:35 White Blood Count 9.74 K/uL (4.8-10.8) Red Blood Count 4.14 M/uL (4.2-5.4) Hemoglobin 14.2 g/dL (12.0-16.0) Hematocrit 40.8 % (37-47) Mean Corpuscular Volume 98.6 fL (80-100) Mean Corpuscular Hemoglobin 34.3 pg (25-34) Mean Corpuscular Hemoglobin Concent 34.8 g/dl (32-36) Platelet Count 196 K/uL (130-400) Mean Platelet Volume 11.9 fL (7.4-10.4) Neutrophils (%) (Auto) 63.2 % Lymphocytes (%) (Auto) 23.6 % Monocytes (%) (Auto) 9.7 % Eosinophils (%) (Auto) 3.0 % Basophils (%) (Auto) 0.2 % Neutrophils # (Auto) 6.16 K/uL (1.4-6.5) Lymphocytes # (Auto) 2.30 K/uL (1.2-3.4) Monocytes # (Auto) 0.94 K/uL (0.11-0.59) Eosinophils # (Auto) 0.29 K/uL (0-0.5) Basophils # (Auto) 0.02 K/uL (0-0.2) RDW Standard Deviation 58.9 fL (36.4-46.3) RDW Coefficient of Variation 16.3 % (11.5-14.5) Immature Granulocyte % (Auto) 0.3 % Immature Granulocyte # (Auto) 0.03 K/uL (0.00-0.02) Anion Gap 7.0 mmol/L (3-11) Est Creatinine Clear Calc Drug Dose 141.2 ml/min Estimated GFR () 115.9 Estimated GFR (Non- 100.0 BUN/Creatinine Ratio 4.9 (10-20) Calcium Level 9.3 mg/dl (8.5-10.1) Total Bilirubin 0.6 mg/dl (0.2-1) Direct Bilirubin 0.2 mg/dl (0-0.2) Aspartate Amino Transf (AST/SGOT) 59 U/L (15-37) Alanine Aminotransferase (ALT/SGPT) 39 U/L (12-78) Alkaline Phosphatase 98 U/L (45-117) Total Protein 7.0 gm/dl (6.4-8.2) Albumin 2.9 gm/dl (3.4-5.0) Lipase 98 U/L (73-393) Laboratory results reviewed by me Medications Administered Medications (Trade) Dose Ordered Sig/Chey Route Start Time Stop Time Status Last Admin Dose Admin Sodium Chloride 1,000 ml @ 999 mls/hr Q1H1M STAT IV 05/11/18 17:35 05/11/18 18:35 DC 05/11/18 18:40 999 MLS/HR Acetaminophen 100 ml @ 400 mls/hr NOW STAT IV 05/11/18 17:35 05/11/18 17:49 DC 05/11/18 18:41 400 MLS/HR Oxycodone HCl (Roxicodone Immediate Rel 5MG Home Pack) 1 homepack UD ONCE PO 05/11/18 20:30 05/11/18 20:31 DC 05/11/18 20:30 1 HOMEPACK ED Course 1732: The patient was evaluated in room C9. A complete history and physical exam was performed. 2006: I discussed the patient with Dr. Tidwell, [facility] - She agrees with outpatient follow up with Dr. Kate, General Surgery tomorrow. 2013: I reevaluated the patient. Discussed results and discharge instructions: She verbalized understanding and agreement. The patient is ready for discharge. Medical Decision I reviewed the patient's past medical history, medications, and the nursing notes as described above. Differential diagnosis: Etiologies such as appendicitis, diverticulitis, PUD, biliary pathology, UTI, pancreatitis, obstruction, mesenteric ischemia, aortic pathology, infections, inflammatory bowel disease, renal colic, as well as others were entertained. The patient is a 47-year-old woman with a past medical history of PE currently on Xarelto who presents emergency department with right upper quadrant abdominal pain at her recent Yessenia tube site after having a cholecystectomy on Tuesday per hpi. Patient surgeon is Dr. Kate. The patient reports persistent pain since her surgery but says that has worsened progressively since then. She was seen by her surgeon's office yesterday and had a Yessenia tube removed. At that time her pain was an 8. Today she reports her pain is a 9 and that is why she comes to ED. On arrival patient is well-appearing in no acute distress , afebrile stable vital signs. On exam patient is mild tenderness to the right upper quadrant at her previous Yessenia tube site. WBC within normal limits. Chemistry unremarkable without evidence of acidosis. CT abdomen pelvis demonstrates findings that are consistent with the patient's postoperative status and recent Yessenia tube removal. Findings reviewed with Dr. Tidwell, surgery on-call, and we agree given her reassuring workup patient can follow-up outpatient with Dr. Kate tomorrow. Findings and plan for follow-up reviewed with patient. Patient agreeable and d/c'd per discharge instructions. Medication Reconcilliation Current Medication List: was personally reviewed by me Blood Pressure Screening Patient's blood pressure: Normal blood pressure Blood pressure disposition: Did not require urgent referral Consults Time Called: 1949 Consulting Physician: Dr. Tidwell, [facility] Returned Call: 2006 I discussed the [facility] - She agrees with outpatient follow up with Dr. Kate, General Surgery tomorrow. Impression Primary Impression: Abdominal pain Scribe Attestation The scribe's documentation has been prepared under my direction and personally reviewed by me in its entirety. I confirm that the note above accurately reflects all work, treatment, procedures, and medical decision making performed by me. Departure Information Dispostion Home / Self-Care Prescriptions Morphine Sulfate Ir (Morphine Sulfate Ir) 15 Mg Tab 0 PO QID Y for Severe Pain, #4 TAB Take 0.5-1 tablets by mouth every 6 hours as needed for severe pain. Prov: Martin Jordan M.D. 05/11/18 Referrals Aiden Pérez MD (PCP) Patient Instructions Abdominal Pain, My [facility] Additional Instructions Please follow up with your surgeon, Dr. Kate, tomorrow for re-evaluation. Your exam, lab results, and CT scan did not show signs of an emergent condition at this time. Acetaminophen for pain and fevers as needed. Morphine or Oxycodone as needed for breakthrough pain. Drink plenty of fluids to ensure hydration. Return to the emergency department for worsening symptoms as described in the accompanying instructions.
[2018-05-11] MEDS ORDERED: OPTIRAY 320 IV PRN (18:00)
[2018-05-11 19:06] LABS: BASO % 0.2 %; BASO ABS # 0.02 K/uL (0-0.2); EOS ABS # 0.29 K/uL (0-0.5); HEMATOCRIT 40.8 % (37-47); HEMOGLOBIN 14.2 g/dL (12.0-16.0); IG# 0.03 K/uL (0.00-0.02); LYMPH % 23.6 %; MEAN CELL VOLUME 98.6 fL (80-100); MEAN CORPUSCULAR HEMOGLOBIN 34.3 pg (25-34); MEAN CORPUSCULAR HGB CONC 34.8 g/dl (32-36); MEAN PLATELET VOLUME 11.9 fL (7.4-10.4); MONO % 9.7 %; MONO ABS # 0.94 K/uL (0.11-0.59); NEUT % 63.2 %; NEUT ABS # 6.16 K/uL (1.4-6.5); PLATELET COUNT 196 K/uL (130-400); RED CELL DISTRIBUTION WIDTH CV 16.3 % (11.5-14.5); RED CELL DISTRIBUTION WIDTH SD 58.9 fL (36.4-46.3); WHITE BLOOD COUNT 9.74 K/uL (4.8-10.8)
[2018-05-11 19:25] LABS: ALBUMIN 2.9 gm/dl (3.4-5.0); CALCIUM 9.3 mg/dl (8.5-10.1); CREATININE 0.71 mg/dl (0.60-1.20); POTASSIUM 3.6 mmol/L (3.5-5.1)
[2018-05-11] MEDS ORDERED: RIVA1.5T PO (19:34)
--- NOTE | 2018-05-11 19:58 | DIAGNOSTIC IMAGING REPORT ---
CT SCAN OF THE ABDOMEN AND PELVIS WITH IV CONTRAST CLINICAL HISTORY: Right upper quadrant abdominal pain status post cholecystectomy and cholecystostomy tube removal. COMPARISON STUDY: Abdominal CT dated 03/18/2018. TECHNIQUE: Following the IV administration of 118 cc of Optiray 320, CT scan of the abdomen and pelvis is performed from the lung bases to the proximal femora. Images are reviewed in the axial, sagittal, and coronal planes. IV contrast was administered without complication. A dose lowering technique was utilized adhering to the principles of ALARA. The examination is degraded by large body habitus, and by streak artifact from the body wall abutting the CT gantry. CT DOSE: 2147.44 mGy.cm FINDINGS: Lung bases: The heart is normal in size and without pericardial effusion. The lung bases are clear noting bibasilar atelectasis. Liver: The contrast-enhanced liver is enlarged, measuring 20.2 cm in length. The liver demonstrates diffusely diminished attenuation consistent with hepatic steatosis. There is minimal central intrahepatic biliary ductal dilatation. The hepatic veins and portal veins are patent. Gallbladder: The gallbladder surgically absent and clips are present in the gallbladder fossa. There is no inflammatory change or fluid collection identified in the gallbladder fossa. Spleen: Normal in size and attenuation. Pancreas: Moderately atrophic and grossly unremarkable. Adrenal glands: Unremarkable. Kidneys: The contrast enhanced kidneys are normal in size and without hydronephrosis. The kidneys enhance symmetrically. Abdominal vasculature: The abdominal aorta is normal in course and caliber noting mild atherosclerotic calcification. Bowel: There is no bowel obstruction. The appendix is normal in appearance and located anterior to the liver. Peritoneum: There are small foci of intraperitoneal free air identified in the upper abdomen, likely related to recent surgery. No abdominal ascites is seen. There is a large fat and fluid containing ventral hernia in the pelvis seen on image #325. There is a 5 cm pocket of simple fluid identified in the periumbilical abdominal wall on image #288. This likely represents a seroma secondary to a laparoscopy port. A small gas containing tract in the right upper quadrant abdominal wall is seen on image #125, and is likely related to the reported history of a cholecystostomy tube. There is induration and dermal thickening noted within the abdominal pannus. Lymphadenopathy: None. Pelvic viscera: The bladder is normal in appearance. The uterus is normal as imaged noting an intrauterine device in place. No adnexal lesion is seen. Small ovarian follicles are observed. Skeletal structures: No lytic or blastic lesions are seen. 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 IMPRESSION: 1. The gallbladder is surgically absent. No fluid collection or significant inflammatory change is seen in the gallbladder fossa. 2. Small foci of intraperitoneal free air are nonspecific and likely related to the reported history of recent surgery and a cholecystostomy tube. Clinical correlation will be required. 3. A cholecystostomy tube tract is present in the right upper quadrant abdominal wall. 4. There is induration and dermal thickening seen throughout the abdominal pannus. Correlate clinically for evidence of cellulitis. 5. There is a large fat and fluid containing ventral hernia in the pelvis. 6. Hepatomegaly and hepatic steatosis. 7. Additional findings as above. Electronically signed by: Kumar Caldwell M.D. 05/11/2018 7:56 PM Dictated Date/Time: 05/11/2018 7:47 PM
[2018-05-11] MEDS ORDERED: OXYCODONE IR HOME PACK PO ONE (20:30)
[2018-05-11] MEDS ORDERED: MORP15TA PO (20:59)
[2018-05-11 21:23] VITALS: BP 110/67; PULSE 66; O2SAT 98
--- NOTE | 2018-05-12 19:07 | Pharmacy Progress Note ---
ED Pharmacist Progress Note Date of Service: May 12, 2018. Returned call to [facility] after receiving message from [facility]. [facility] does not have the morphine IR 15 mg in stock. Patient has not attempted to picker script/called emergency department and was to follow up with Dr. Kate today. Patient was also provided with oxycodone homepack. Dr. Jordan on service tomorrow 05/13. Will leave message to follow-up. Prescription will need to be cancelled and submitted elsewhere if still needed/authorized by Dr. Jordan.
== END 2018-05-11 21:23 | disposition home or self-care (01) ==
LOC: C.EDB 17:13 → C.EDC 21:23
DX: R10.11 Right upper quadrant pain (principal); I10 Essential (primary) hypertension; Z90.49 Acquired absence of other specified parts of digestive tract; Z87.891 Personal history of nicotine dependence; Z86.711 Personal history of pulmonary embolism; Z79.01 Long term (current) use of anticoagulants; Z79.899 Other long term (current) drug therapy

== ENCOUNTER 2018-05-13 21:19 | Emergency (ER) | payer OTHER ==
[~2018-05-13] VITALS: Ht 172.7 cm; Wt 137.3 kg
[~2018-05-13 21:19] MED LIST changes: -AMOX875T PO; +MORP15TA PO; -OXYC-57 PO; +RIVA1.5T PO; -XRL15 PO; -XRL20 PO
[2018-05-13 21:29] VITALS: TEMP 37.1; Ht 172.7 cm; Wt 137.3 kg
[2018-05-13] MEDS ORDERED: KETOROLAC TROMETHAMINE 30 MG/ML VIAL IV STA (21:49)
[2018-05-13] MEDS ORDERED: SODIUM CHLORIDE 0.9% 1000ML 1,000 ML IV ONE (22:00)
[2018-05-13] MEDS ORDERED: MORP15TA PO (23:08)
[2018-05-13 23:11] LABS: BASO % 0.3 %; BASO ABS # 0.03 K/uL (0-0.2); EOS % 2.8 %; HEMOGLOBIN 14.1 g/dL (12.0-16.0); IG# 0.03 K/uL (0.00-0.02); LYMPH % 24.2 %; LYMPH ABS # 2.58 K/uL (1.2-3.4); MEAN CELL VOLUME 99.1 fL (80-100); MEAN CORPUSCULAR HEMOGLOBIN 33.3 pg (25-34); MEAN CORPUSCULAR HGB CONC 33.6 g/dl (32-36); MEAN PLATELET VOLUME 12.4 fL (7.4-10.4); MONO % 6.2 %; MONO ABS # 0.66 K/uL (0.11-0.59); NEUT % 66.2 %; NEUT ABS # 7.07 K/uL (1.4-6.5); PLATELET COUNT 203 K/uL (130-400); RED CELL DISTRIBUTION WIDTH CV 16.3 % (11.5-14.5); RED CELL DISTRIBUTION WIDTH SD 59.2 fL (36.4-46.3); WHITE BLOOD COUNT 10.67 K/uL (4.8-10.8)
[2018-05-13 23:30] LABS: ALBUMIN 2.8 gm/dl (3.4-5.0); CREATININE 0.81 mg/dl (0.60-1.20); POTASSIUM 3.8 mmol/L (3.5-5.1)
[2018-05-14] MEDS ORDERED: CIPR-255 PO (01:06)
[2018-05-14] MEDS ORDERED: CIPROFLOXACIN 500MG HOME PACK PO ONE (01:15)
[2018-05-14] MEDS ORDERED: OXYCODONE IR HOME PACK PO ONE (01:15)
[2018-05-14 01:49] VITALS: BP 104/85; PULSE 98; O2SAT 94
--- NOTE | 2018-05-14 05:51 | DIAGNOSTIC IMAGING REPORT ---
ABDOMEN 2VIEW W/PA CHEST RTN CLINICAL HISTORY: left side abd pains after gallbladder surg pain. Trauma. COMPARISON STUDY: 04/29/2018 FINDINGS: The soft tissues, psoas shadows, renal outlines and intestinal gas pattern appear normal. There is no evidence for bowel obstruction. There is no evidence for free intraperitoneal air. No abnormal abdominal calcifications are seen. A frontal view of the chest was performed and is unremarkable. Mild nonobstructive ileus. IMPRESSION: No acute process. Minimal chronic pleural reactive change left base. Mild nonobstructive ileus. The above report was generated using voice recognition software. It may contain grammatical, syntax or spelling errors. Electronically signed by: Leo Anderson M.D. 05/14/2018 5:50 AM Dictated Date/Time: 05/14/2018 5:48 AM
--- NOTE | 2018-05-14 05:54 | DIAGNOSTIC IMAGING REPORT ---
ABDOMEN FOR HERNIA CLINICAL HISTORY: ?Periumbilical hernia pains pain TECHNIQUE: Ultrasound COMPARISON STUDY: None FINDINGS: Fat-containing periumbilical hernia. Trace joint fluid. No well-defined bowel containment. This is not appear to be reducible. IMPRESSION: Fat-containing 8 cm umbilical hernia with a trace amount of surrounding fluid. The above report was generated using voice recognition software. It may contain grammatical, syntax or spelling errors. Electronically signed by: Leo Anderson M.D. 05/14/2018 5:52 AM Dictated Date/Time: 05/14/2018 5:51 AM
--- NOTE | 2018-05-14 21:45 | EMERGENCY ROOM VISIT NOTE ---
History First contact with patient: 21:38 Chief Complaint: ABDOMINAL PAIN Stated Complaint: ABDOMINAL PAIN, CHILLS, FEVER Nursing Triage Summary: Pt had cholcystectomy on 05/01/18. Pt resturned on of this week for left sided abd pain. Pt was told it ws post op pain and discharged. Pt states pain is worse and she called her PCP that told her it may be her umbilical hernia and things could be serious and more testing needed done. History of Present Illness The patient is a 47 year old female who presents to the Emergency Room with complaints of left-sided low abdominal pain worsening over the past 1 day. The patient had cholecystectomy performed approximately 12 days ago at this facility. She returned to this facility 2 days ago for similar complaints where a CT scan was performed and did not show evidence of acute process. The patient was discharged home with pain medication, but she states that she was not able to get her pain medication filled at her pharmacy. She reports a subjective fever that is intermittent. The patient went to her primary care physician's walk-in clinic yesterday, and they referred her back to the ER. The patient did not immediately come to the ER, but instead waited until today. The patient has been eating and drinking as normal. Her last bowel movement was 4 days ago. She does have some urinary frequency. Review of Systems More than 10 systems were reviewed and otherwise negative with the exception of history of present illness. Past Medical/Surgical History Medical Problems: (1) ally PE, slurry speech comes and goes, and HTN (2) Brain cyst (3) Bronchitis (4) Hypertension Family History Cancer Diabetes mellitus Heart disease Hypertension Social History Smoking Status: Former Smoker Alcohol Use: none Drug Use: none Marital Status: Housing Status: lives with family Occupation Status: unemployed Current/Historical Medications Scheduled Ciprofloxacin Hcl (Cipro), 500 MG PO BID Clonidine Hcl (Catapres), 0.1 MG PO DAILY Cyclobenzaprine Hcl (Flexeril), 10 MG PO BID Doxepin (Sinequan), 100 MG PO DAILY Gabapentin (Neurontin), 1,200 MG PO TID Lisinopril (Prinivil), 10 MG PO DAILY Rivaroxaban (Xarelto), 15 MG PO DAILY Scheduled PRN Albuterol Hfa (Ventolin Hfa), 2 PUFFS INH Q4 PRN for SOB/Wheezing Ipratropium-Albuterol (Duoneb), 1 TREATMENT INH Q4H PRN for Shortness of Breath Morphine Sulfate Ir (Morphine Sulfate Ir), 0.5 MG PO Q6 PRN for severe pain Sumatriptan Succinate (Imitrex), 25 MG PO DIRECTED PRN for Migraine Physical Exam Vital Signs Date Time Temp Pulse Resp B/P (MAP) Pulse Ox O2 Delivery O2 Flow Rate FiO2 05/14/18 01:49 98 20 104/85 94 Room Air 05/13/18 23:59 93 20 115/65 96 Room Air 05/13/18 21:29 37.1 108 18 127/80 96 Room Air Physical Exam VITALS: Vitals are noted on the nurse's note and reviewed by myself. Vital signs stable. GENERAL: Well-developed, well-nourished, white female, who is in no acute distress and resting comfortably. Patient is cooperative with the examination. HEAD: Normocephalic atraumatic. HEART: Regular rate and rhythm without murmurs gallops or rubs. LUNGS: Clear to auscultation bilaterally without wheezes, rales or rhonchi. No retractions or accessory muscle use. ABDOMEN: Positive normal bowel sounds x 4. Soft with mild reproducible tenderness in the left side abdomen. No lower abdominal tenderness. No tenderness in the right upper quadrant. Multiple well-healing surgical incisions are noted. MUSCULOSKELETAL: No muscle atrophy, erythema, or edema noted. Full range of motion in all extremities. No calf tenderness. Medical Decision & Procedures ER Provider Diagnostic Interpretation: ABDOMEN FOR HERNIA CLINICAL HISTORY: ?Periumbilical hernia pains pain TECHNIQUE: Ultrasound COMPARISON STUDY: None FINDINGS: Fat-containing periumbilical hernia. Trace joint fluid. No well-defined bowel containment. This is not appear to be reducible. IMPRESSION: Fat-containing 8 cm umbilical hernia with a trace amount of surrounding fluid. ABDOMEN 2VIEW W/PA CHEST RTN CLINICAL HISTORY: left side abd pains after gallbladder surg pain. Trauma. COMPARISON STUDY: 04/29/2018 FINDINGS: The soft tissues, psoas shadows, renal outlines and intestinal gas pattern appear normal. There is no evidence for bowel obstruction. There is no evidence for free intraperitoneal air. No abnormal abdominal calcifications are seen. A frontal view of the chest was performed and is unremarkable. Mild nonobstructive ileus. IMPRESSION: No acute process. Minimal chronic pleural reactive change left base. Mild nonobstructive ileus. Laboratory Results 05/13/18 22:50 Red Blood Count 4.24, Mean Corpuscular Volume 99.1, Mean Corpuscular Hemoglobin 33.3, Mean Corpuscular Hemoglobin Concent 33.6, Mean Platelet Volume 12.4, Neutrophils (%) (Auto) 66.2, Lymphocytes (%) (Auto) 24.2, Monocytes (%) (Auto) 6.2, Eosinophils (%) (Auto) 2.8, Basophils (%) (Auto) 0.3, Neutrophils # (Auto) 7.07, Lymphocytes # (Auto) 2.58, Monocytes # (Auto) 0.66, Eosinophils # (Auto) 0.30, Basophils # (Auto) 0.03 05/13/18 22:50 Test 05/13/18 22:20 05/13/18 22:50 Urine Color DK YELLOW Urine Appearance CLOUDY (CLEAR) Urine pH 6.0 (4.5-7.5) Urine Specific [place] 1.020 (1.000-1.030) Urine Protein 1+ (NEG) Urine Glucose (UA) NEG (NEG) Urine Ketones NEG (NEG) Urine Occult Blood 1+ (NEG) Urine Nitrite NEG (NEG) Urine Bilirubin NEG (NEG) Urine Urobilinogen POS (NEG) Urine Leukocyte Esterase MODERATE (NEG) Urine WBC (Auto) 10-30 /hpf (0-5) Urine RBC (Auto) 0-4 /hpf (0-4) Urine Hyaline Casts (Auto) 5-10 /lpf (0-5) Urine Epithelial Cells (Auto) >30 /lpf (0-5) Urine Bacteria (Auto) NEG (NEG) White Blood Count 10.67 K/uL (4.8-10.8) Red Blood Count 4.24 M/uL (4.2-5.4) Hemoglobin 14.1 g/dL (12.0-16.0) Hematocrit 42.0 % (37-47) Mean Corpuscular Volume 99.1 fL (80-100) Mean Corpuscular Hemoglobin 33.3 pg (25-34) Mean Corpuscular Hemoglobin Concent 33.6 g/dl (32-36) Platelet Count 203 K/uL (130-400) Mean Platelet Volume 12.4 fL (7.4-10.4) Neutrophils (%) (Auto) 66.2 % Lymphocytes (%) (Auto) 24.2 % Monocytes (%) (Auto) 6.2 % Eosinophils (%) (Auto) 2.8 % Basophils (%) (Auto) 0.3 % Neutrophils # (Auto) 7.07 K/uL (1.4-6.5) Lymphocytes # (Auto) 2.58 K/uL (1.2-3.4) Monocytes # (Auto) 0.66 K/uL (0.11-0.59) Eosinophils # (Auto) 0.30 K/uL (0-0.5) Basophils # (Auto) 0.03 K/uL (0-0.2) RDW Standard Deviation 59.2 fL (36.4-46.3) RDW Coefficient of Variation 16.3 % (11.5-14.5) Immature Granulocyte % (Auto) 0.3 % Immature Granulocyte # (Auto) 0.03 K/uL (0.00-0.02) Anion Gap 6.0 mmol/L (3-11) Est Creatinine Clear Calc Drug Dose 123.7 ml/min Estimated GFR () 98.8 Estimated GFR (Non- 85.3 BUN/Creatinine Ratio 5.9 (10-20) Calcium Level 9.0 mg/dl (8.5-10.1) Total Bilirubin 0.5 mg/dl (0.2-1) Aspartate Amino Transf (AST/SGOT) 62 U/L (15-37) Alanine Aminotransferase (ALT/SGPT) 38 U/L (12-78) Alkaline Phosphatase 95 U/L (45-117) Total Protein 7.0 gm/dl (6.4-8.2) Albumin 2.8 gm/dl (3.4-5.0) Globulin 4.2 gm/dl (2.5-4.0) Albumin/Globulin Ratio 0.7 (0.9-2) Lipase 151 U/L (73-393) Chemistry Specimen Hemolysis Medications Administered Medications (Trade) Dose Ordered Sig/Chey Route Start Time Stop Time Status Last Admin Dose Admin Sodium Chloride 1,000 ml @ 999 mls/hr Q1H1M ONCE IV 05/13/18 22:00 05/13/18 23:00 DC 05/13/18 22:50 999 MLS/HR Ketorolac Tromethamine (Toradol Inj) 30 mg NOW STAT IV 05/13/18 21:49 05/13/18 21:54 DC 05/13/18 22:50 30 MG Ciprofloxacin (Cipro 500MG Home Pack) 1 homepack UD ONCE PO 05/14/18 01:15 05/14/18 01:16 DC 05/14/18 01:48 1 HOMEPACK Oxycodone HCl (Roxicodone Immediate Rel 5MG Home Pack) 1 homepack UD ONCE PO 05/14/18 01:15 05/14/18 01:16 DC 05/14/18 01:48 1 HOMEPACK ED Course Physical exam and history were performed. Nursing notes, EMR, and Medication List were personally reviewed. Patient appears to have some left-sided abdominal discomfort over the past few days. The patient does have a recent history of cholecystectomy. She was seen and evaluated a few days ago here in the department where CT scan was performed and negative for acute findings. IV access was established and labs are obtained. The patient is having difficulty getting her outpatient pain medications. She was hydrated and medicated as above here in the department. I did elect to perform plain films as well as ultrasound. The patient's blood work is as above and was reviewed. She does not have a significantly. Transaminases are nondiagnostic. Her urine is suggestive of infection. Ultrasound does show a fat-containing periumbilical hernia that does not appear incarcerated. X-ray was reviewed by myself and radiology as showing a nonobstructive ileus but no other significant acute findings. There is some suggestion of maybe some increased stool in the left side, but the patient is taking some MiraLAX, and I do expect this to improve with conservative measures. The patient was reevaluated multiple times throughout the course of her stay. She was updated on her findings throughout her ER visit. I did have a discussion with her regarding her findings. She will be started on Cipro for a likely UTI. Evidently she does have a surgical follow-up appointment in 2 days. I do not see evidence of an acute postoperative infection, other than perhaps the urinary tract infection itself. The patient will be given a home pack of pain medication, which is likely to help her with her discomfort until she is able to get her pain medication from the pharmacy. The patient was otherwise invited back to the ER with any new, worsening, or concerning symptoms. The chart was completed utilizing [employer] Speech Voice Recognition Software. Grammatical errors, random word insertions, pronoun errors, and incomplete sentences are an occasional consequence of this system due to software limitations, ambient noise, and hardware issues. Any formal questions or concerns about the content, text, or information contained within the body of this dictation should be directly addressed to the provider for clarification. . Medical Decision Differential diagnosis: Etiologies such as appendicitis, diverticulitis, PUD, biliary pathology, UTI, pancreatitis, obstruction, mesenteric ischemia, aortic pathology, infections, inflammatory bowel disease, renal colic, as well as others were entertained. Impression Primary Impression: Abdominal pain Additional Impression: UTI (urinary tract infection) Departure Information Dispostion Home / Self-Care Condition GOOD Prescriptions Ciprofloxacin Hcl (CIPRO) 500 Mg Tab 500 MG PO BID for 9 Days, #18 TAB Prov: Hunter Roblero PA-C 05/14/18 Forms Call Back Authorization, HOME CARE DOCUMENTATION FORM, IMPORTANT VISIT INFORMATION Patient Instructions My [facility] Additional Instructions You were seen and evaluated today on an emergency basis only. This is not a substitute for, or an effort to provide, complete comprehensive medical care. It is not possible to recognize and treat all injuries or illnesses in a single emergency department visit. For this reason it is recommended that you followup with your surgeon as scheduled on Tuesday for a recheck. Ciprofloxacin(Cipro) 500mg: Take one pill twice daily for 10 total days for your infection. All antibiotics can cause diarrhea. If this occurs and you feel worse or it does not resolve in 1-2 days follow up with your doctor or return to the Emergency Department as this could be signs of serious underlying problems. If you experience any pain in your tendons or any tendon injury return to the ER for re-evaluation. Any medication can cause an allergic reaction, stop the pills immediately and return to the ER for rash, hives, breathing difficulties, or swelling. Oxycodone (OxyIR) 5mg (homepack): Take ONE pill by mouth every SIX hours for breakthrough pain. Avoid alcohol, operating machinery or dangerous equipment, working on ladders or roofs, DRIVING, or situations where being under the influence may be dangerous. It is recommended to use an [id number] stool softener such as Colace, 100mg twice daily while taking this medication to avoid constipation. You are welcome to return to the emergency department anytime with new, worsening, or concerning symptoms. Problem Qualifiers
== END 2018-05-14 01:56 | disposition home or self-care (01) ==
LOC: C.EDB 21:20
DX: R10.84 Generalized abdominal pain (principal); N39.0 Urinary tract infection, site not specified; I10 Essential (primary) hypertension; R47.81 Slurred speech; Z87.891 Personal history of nicotine dependence

== ENCOUNTER 2018-05-23 01:30 | Emergency (ER) | payer OTHER ==
[~2018-05-23] VITALS: Ht 172.7 cm; Wt 137.7 kg
[~2018-05-23 01:30] MED LIST changes: +CIPR-255 PO
[2018-05-23 01:34] VITALS: TEMP 37; Ht 172.7 cm; Wt 137.7 kg
[2018-05-23 01:36] VITALS: O2SAT 99
[2018-05-23 01:59] LABS: BASO % 0.1 %; BASO ABS # 0.02 K/uL (0-0.2); EOS % 1.6 %; EOS ABS # 0.22 K/uL (0-0.5); HEMATOCRIT 43.1 % (37-47); HEMOGLOBIN 14.8 g/dL (12.0-16.0); IG# 0.04 K/uL (0.00-0.02); LYMPH % 23.7 %; MEAN CELL VOLUME 100.5 fL (80-100); MEAN CORPUSCULAR HEMOGLOBIN 34.5 pg (25-34); MEAN CORPUSCULAR HGB CONC 34.3 g/dl (32-36); MEAN PLATELET VOLUME 11.9 fL (7.4-10.4); MONO % 9.3 %; MONO ABS # 1.26 K/uL (0.11-0.59); NEUT ABS # 8.78 K/uL (1.4-6.5); PLATELET COUNT 236 K/uL (130-400); RED CELL DISTRIBUTION WIDTH CV 16.1 % (11.5-14.5); RED CELL DISTRIBUTION WIDTH SD 59.9 fL (36.4-46.3); WHITE BLOOD COUNT 13.52 K/uL (4.8-10.8)
[2018-05-23] MEDS ORDERED: LIDOCAINE HCL 2% VISC SOLN 20 ML UDC ONE (01:59)
[2018-05-23] MEDS ORDERED: ALUMINUM/MAGNESIUM SUSP 30 ML UDC ONE (01:59)
[2018-05-23] MEDS ORDERED: GI COCKTAIL PO ONE (02:00)
[2018-05-23 02:18] LABS: INR 1.2 (0.9-1.1); PTT PATIENT 29.2 SECONDS (21.0-31.0)
[2018-05-23 02:22] LABS: CALCIUM 8.8 mg/dl (8.5-10.1); CREATININE 0.91 mg/dl (0.60-1.20); POTASSIUM 3.1 mmol/L (3.5-5.1); TOTAL PROTEIN 7.3 gm/dl (6.4-8.2)
[2018-05-23 02:37] VITALS: BP 149/101; PULSE 102; O2SAT 98
[2018-05-23] MEDS ORDERED: PANT40TA PO (02:58)
--- NOTE | 2018-05-23 04:15 | EMERGENCY ROOM VISIT NOTE ---
History First contact with patient: 01:36 Chief Complaint: CHEST PAIN Stated Complaint: CHEST PAINS,HX OF PE,STARTED IN LFT SHOULDER/NECK Nursing Triage Summary: Pt presents with c/o pain in left side of neck/shoulder and right side of chest. Pt states had nisha 05/01. Dx in February with PE's, unknown etiology. Pt reports "nagging cough all summer" that became prod of clear sputum a couple days ago. Pt states she felt fine when she went to bed. Woke up at midnight with the chest pain. Denies pain in legs. History of Present Illness The patient is a 47 year old female who presents to the Emergency Room with complaints of right-sided chest pain that woke her from sleep tonight. The patient states she was asleep until around 90 minutes ago when her symptoms began. The patient reports that she felt fine going to bed tonight, and was very active throughout the day. She has not had fever or chills. The patient had her gallbladder removed about 1 month ago, and seems to have recovered from her surgery. The patient has a history of pulmonary emboli and is taking her Xarelto as prescribed. She rates her current discomfort in 05/19. She has not taken anything else [id number] for her symptoms. Review of Systems More than 10 systems were reviewed and otherwise negative with the exception of history of present illness. Past Medical/Surgical History Medical Problems: (1) ally PE, slurry speech comes and goes, and HTN (2) Brain cyst (3) Bronchitis (4) Hypertension Family History Cancer Diabetes mellitus Heart disease Hypertension Social History Smoking Status: Former Smoker Alcohol Use: none Drug Use: none Marital Status: Housing Status: lives with family Occupation Status: unemployed Current/Historical Medications Scheduled Clonidine Hcl (Catapres), 0.1 MG PO DAILY Cyclobenzaprine Hcl (Flexeril), 10 MG PO BID Doxepin (Sinequan), 100 MG PO DAILY Gabapentin (Neurontin), 1,200 MG PO TID Lisinopril (Prinivil), 10 MG PO DAILY Pantoprazole (Protonix), 40 MG PO DAILY Rivaroxaban (Xarelto), 15 MG PO DAILY Scheduled PRN Albuterol Hfa (Ventolin Hfa), 2 PUFFS INH Q4 PRN for SOB/Wheezing Ipratropium-Albuterol (Duoneb), 1 TREATMENT INH Q4H PRN for Shortness of Breath Morphine Sulfate Ir (Morphine Sulfate Ir), 0.5 MG PO Q6 PRN for severe pain Sumatriptan Succinate (Imitrex), 25 MG PO DIRECTED PRN for Migraine Physical Exam Vital Signs Date Time Temp Pulse Resp B/P (MAP) Pulse Ox O2 Delivery O2 Flow Rate FiO2 05/23/18 02:37 102 18 149/101 98 Room Air 05/23/18 02:05 100 18 162/108 97 Room Air 05/23/18 01:39 116 05/23/18 01:36 99 Room Air 05/23/18 01:36 99 Room Air 05/23/18 01:34 37.0 116 24 182/96 98 Room Air Physical Exam VITALS: Vitals are noted on the nurse's note and reviewed by myself. Vital signs stable. GENERAL: Anxious appearing white female who is in no acute distress and resting comfortably in her ER bed. She is cooperative with the examination. HEAD: Normocephalic atraumatic. NECK: Supple without nuchal rigidity. No lymphadenopathy. No thyromegaly. Cervical spine is nontender. HEART: Regular rate and rhythm without murmurs gallops or rubs. LUNGS: Clear to auscultation bilaterally without wheezes, rales or rhonchi. No retractions or accessory muscle use. ABDOMEN: Positive normal bowel sounds x 4. Soft, nontender, without masses or organomegaly. No guarding or rebound tenderness. MUSCULOSKELETAL: No muscle atrophy, erythema, or edema noted. Full range of motion in all extremities. Medical Decision & Procedures Laboratory Results 05/23/18 01:35 Red Blood Count 4.29, Mean Corpuscular Volume 100.5, Mean Corpuscular Hemoglobin 34.5, Mean Corpuscular Hemoglobin Concent 34.3, Mean Platelet Volume 11.9, Neutrophils (%) (Auto) 65.0, Lymphocytes (%) (Auto) 23.7, Monocytes (%) ( Auto) 9.3, Eosinophils (%) (Auto) 1.6, Basophils (%) (Auto) 0.1, Neutrophils # ( Auto) 8.78, Lymphocytes # (Auto) 3.20, Monocytes # (Auto) 1.26, Eosinophils # ( Auto) 0.22, Basophils # (Auto) 0.02 05/23/18 01:35 Test 05/23/18 01:35 05/23/18 01:54 White Blood Count 13.52 K/uL (4.8-10.8) Red Blood Count 4.29 M/uL (4.2-5.4) Hemoglobin 14.8 g/dL (12.0-16.0) Hematocrit 43.1 % (37-47) Mean Corpuscular Volume 100.5 fL (80-100) Mean Corpuscular Hemoglobin 34.5 pg (25-34) Mean Corpuscular Hemoglobin Concent 34.3 g/dl (32-36) Platelet Count 236 K/uL (130-400) Mean Platelet Volume 11.9 fL (7.4-10.4) Neutrophils (%) (Auto) 65.0 % Lymphocytes (%) (Auto) 23.7 % Monocytes (%) (Auto) 9.3 % Eosinophils (%) (Auto) 1.6 % Basophils (%) (Auto) 0.1 % Neutrophils # (Auto) 8.78 K/uL (1.4-6.5) Lymphocytes # (Auto) 3.20 K/uL (1.2-3.4) Monocytes # (Auto) 1.26 K/uL (0.11-0.59) Eosinophils # (Auto) 0.22 K/uL (0-0.5) Basophils # (Auto) 0.02 K/uL (0-0.2) RDW Standard Deviation 59.9 fL (36.4-46.3) RDW Coefficient of Variation 16.1 % (11.5-14.5) Immature Granulocyte % (Auto) 0.3 % Immature Granulocyte # (Auto) 0.04 K/uL (0.00-0.02) Prothrombin Time 12.5 SECONDS (9.0-12.0) Prothromb Time International Ratio 1.2 (0.9-1.1) Activated Partial Thromboplast Time 29.2 SECONDS (21.0-31.0) Partial Thromboplastin Ratio 1.1 Anion Gap 8.0 mmol/L (3-11) Est Creatinine Clear Calc Drug Dose 110.3 ml/min Estimated GFR () 85.9 Estimated GFR (Non- 74.1 BUN/Creatinine Ratio 5.2 (10-20) Calcium Level 8.8 mg/dl (8.5-10.1) Total Bilirubin 0.5 mg/dl (0.2-1) Aspartate Amino Transf (AST/SGOT) 72 U/L (15-37) Alanine Aminotransferase (ALT/SGPT) 48 U/L (12-78) Alkaline Phosphatase 114 U/L (45-117) Total Protein 7.3 gm/dl (6.4-8.2) Albumin 3.0 gm/dl (3.4-5.0) Globulin 4.3 gm/dl (2.5-4.0) Albumin/Globulin Ratio 0.7 (0.9-2) Lipase 163 U/L (73-393) Bedside Troponin I < 0.030 ng/ml (0-0.045) Medications Administered Medications (Trade) Dose Ordered Sig/Chey Route Start Time Stop Time Status Last Admin Dose Admin Miscellaneous Medication (Gi Cocktail) 24 ml NOW ONCE PO 05/23/18 02:00 05/23/18 02:01 DC 05/23/18 02:01 24 ML Lidocaine HCl (Viscous Lidocaine 2% Soln) 20 ml STK-MED ONCE .ROUTE 05/23/18 01:59 05/23/18 02:00 DC 05/23/18 02:01 20 ML Al Hydroxide/Mg Hydroxide (Maalox Susp) 30 ml STK-MED ONCE .ROUTE 05/23/18 01:59 05/23/18 02:00 DC 05/23/18 02:01 30 ML ED Course Physical exam and history were performed. Nursing notes, EMR, and Medication List were personally reviewed. Patient appears to have right-sided chest discomfort that woke her from sleep tonight. The patient appears anxious on examination performed and was sinus tachycardia without acute ST elevation per my interpretation. IV access was established and labs were obtained. The patient was given a GI cocktail, which immediately reduced her pain from an 8/10 to a 2/10. The patient was placed on the equipment monitor phototypesetting. The patient's blood work is as above and was reviewed. She does have a slightly elevated white blood cell count of 13,000. She has had some elevated white counts in the past, and does not have a gross bandemia at this time. She is not anemic. Troponin x1 is negative. Lipase and transaminases are not diagnostic. Chest x-ray was reviewed by myself and my attending showing no significant change from previous imaging. On reevaluation the patient's heart rate had normalized. She was resting very comfortably in her ER bed and her pain was nearly completely resolved. She is currently on Xarelto and PE is considered very unlikely as she is currently being treated for this. Of note the patient has had 9 CT scans in the past 6 months, and I did discuss the possibility of rescanning her tonight. Utilizing shared decision making we elected against this, which seems reasonable. Clinically I suspect her symptoms are most associated with GERD/esophagitis with some underlying anxiety. The patient appears stable and comfortable. I will give her a short course of Protonix, as she has utilized this well in the she needs to follow with her primary care physician for further care management. She was otherwise invited back to the ER with any new, worsening, or concerning symptoms. The chart was completed utilizing [email or web address] Speech Voice Recognition Software. Grammatical errors, random word insertions, pronoun errors, and incomplete sentences are an occasional consequence of this system due to software limitations, ambient noise, and hardware issues. Any formal questions or concerns about the content, text, or information contained within the body of this dictation should be directly addressed to the provider for clarification. . Medical Decision Differential diagnosis includes, but is not limited to: Myocardial infarction, dysrhythmia, pericarditis, pneumothorax, aortic aneurysm/dissection, DVT/PE, anxiety, GERD, PUD, electrolyte imbalance, thyroid disorder, pneumonia, bronchitis, pancreatitis, and others Impression Primary Impression: Non-cardiac chest pain Departure Information Dispostion Home / Self-Care Condition GOOD Prescriptions Pantoprazole (Protonix) 40 Mg Tab 40 MG PO DAILY for 14 Days, #14 TAB Prov: Hunter Roblero PA-C 05/23/18 Referrals Aiden Pérez MD (PCP) Forms Call Back Authorization, HOME CARE DOCUMENTATION FORM, IMPORTANT VISIT INFORMATION Patient Instructions My [facility] Additional Instructions You were seen and evaluated today on an emergency basis only. This is not a substitute for, or an effort to provide, complete comprehensive medical care. It is not possible to recognize and treat all injuries or illnesses in a single emergency department visit. For this reason it is recommended that you followup with your primary care physician this week for ongoing care and evaluation. Take Protonix daily for the next 2 weeks. You are welcome to return to the emergency department anytime with new, worsening, or concerning symptoms.
--- NOTE | 2018-05-23 06:47 | DIAGNOSTIC IMAGING REPORT ---
CHEST 2 VIEWS ROUTINE CLINICAL HISTORY: Right-sided chest pain. COMPARISON STUDY: Chest CT March 18, 2018 and chest radiograph and abdominal series May 13, 2018. FINDINGS: There is no pneumothorax or pleural effusion. Mild enlargement of the cardiac silhouette is unchanged. Opacity along the left heart border likely reflects epicardial fat pad. Interstitial prominence is unchanged. There is no evidence for overt pulmonary edema. IMPRESSION: No acute cardiopulmonary findings. No change in appearance of the chest with mild interstitial prominence which is likely chronic. Electronically signed by: Dani Cardona M.D. 05/23/2018 6:46 AM Dictated Date/Time: 05/23/2018 6:44 AM
[2018-05-25] MEDS ORDERED: XRL10 PO (11:52)
[2018-05-25] MEDS ORDERED: PANT40TA PO (11:52)
== END 2018-05-23 03:05 | disposition home or self-care (01) ==
LOC: C.EDB 01:32 → C.EDA 03:05
DX: R07.9 Chest pain, unspecified (principal); Z86.711 Personal history of pulmonary embolism; Z79.01 Long term (current) use of anticoagulants; I10 Essential (primary) hypertension; Z79.899 Other long term (current) drug therapy; Z87.891 Personal history of nicotine dependence

== ENCOUNTER 2018-05-29 06:18 | Inpatient (IN) | payer OTHER ==
[2018-05-25 11:54] VITALS: BMI 46.0
[2018-05-29] VITALS (9 sets, daily range): BP systolic 114–148; BP diastolic 62–88; PULSE 90–114; TEMP 36.8–37; O2SAT 92–96; Ht 172.7 cm; Wt 136.8 kg
[~2018-05-29] VITALS: Ht 172.7 cm; Wt 136.8 kg
[~2018-05-29 06:18] MED LIST changes: +CEFAZOLIN 3000MG IV PUSH 22.5 ML IV SCH; -CIPR-255 PO; -MORP15TA PO; +PANT40TA PO; -RIVA1.5T PO; +XRL10 PO
[2018-05-29] MEDS ORDERED: CEFAZOLIN SOD 3000MG/22.5 ML IV PUSH ONE (07:28)
[2018-05-29] MEDS ORDERED: NEOSTIGMINE METHYLSULFATE 5 MG/5 ML SYR ONE (07:49)
[2018-05-29] MEDS ORDERED: GLYCOPYRROLATE INJ 0.2 MG/ML VIAL ONE ×2 (07:49→09:13)
[2018-05-29] MEDS ORDERED: PROPOFOL IV EMULSION 10 MG/ML 20 ML VIAL ONE (07:49)
[2018-05-29] MEDS ORDERED: DEXAMETHASONE SOD INJ 4 MG/ML VIAL ONE (07:49)
[2018-05-29] MEDS ORDERED: LIDOCAINE HCL 2% 2 ML VIAL (20MG/ML) ONE (07:49)
[2018-05-29] MEDS ORDERED: ONDANSETRON INJ 2 MG/ML 2 ML VIAL ONE (07:49)
[2018-05-29] MEDS ORDERED: MIDAZOLAM HCL 1 MG/ML 2ML VIAL ONE (07:50)
[2018-05-29] MEDS ORDERED: FENTANYL CITRATE INJ 50 MCG/1 ML 2 ML VIAL ONE ×3 (07:50→10:23)
[2018-05-29] MEDS ORDERED: LACTATED RINGER'S 1000ML 1,000 ML IV SCH (08:00)
--- NOTE | 2018-05-29 08:19 | History & Physical Bridge Note ---
H&P Re-Evaluation Bridge Note: I have examined the patient, reviewed the History & Physical and in the interval since the performance of the History & Physical I have noted the following changes of clinical significance: No changes noted
[2018-05-29] MEDS ORDERED: CEFAZOLIN SOD 1 GM VIAL ONE (08:20)
[2018-05-29] MEDS ORDERED: BUPIVACAINE 0.5 % 5 MG/1 ML PF 10ML VIAL ONE (08:21)
[2018-05-29] MEDS ORDERED: ONDANSETRON INJ 2 MG/ML 2 ML VIAL IV PRN ×2 (09:00→10:00)
[2018-05-29] MEDS ORDERED: EpHEDrine SULFATE INJ 50 MG/ML AMP IV PRN (09:00)
[2018-05-29] MEDS ORDERED: FLUMAZENIL 0.1 MG/1 ML 10 ML VIAL IV PRN (09:00)
[2018-05-29] MEDS ORDERED: ATROPINE SULFATE 0.1 MG/ML 5ML SYR IV PRN (09:00)
[2018-05-29] MEDS ORDERED: LABETALOL HCL IV 5 MG/ML 20ML IV PRN (09:00)
[2018-05-29] MEDS ORDERED: PROMETHAZINE HCL INJ 12.5 MG in SODIUM CHLORIDE 0.9% 50ML 50 ML IV PRN (09:00)
[2018-05-29] MEDS ORDERED: NALOXONE HCL 0.4 MG/1 ML VIAL/CARP IV PRN (09:00)
[2018-05-29] MEDS ORDERED: FENTANYL CITRATE INJ 50 MCG/1 ML 2 ML VIAL IV PRN (09:00)
[2018-05-29] MEDS ORDERED: ROCURONIUM BROMIDE 10 MG/ML 5 ML VIAL ONE (09:13)
[2018-05-29] MEDS ORDERED: LARYING-O-JET KIT (LTA) ONE (09:13)
[2018-05-29] MEDS ORDERED: SUCCINYLCHOLINE CHLORIDE 20 MG/ML 10 ML VIAL IV ONE (09:23)
[2018-05-29] MEDS ORDERED: LABETALOL HCL IV 5 MG/ML 20ML ONE (09:27)
[2018-05-29] MEDS ORDERED: ALBUTEROL HFA INHALER 8.5 GM INH ONE (09:45)
--- NOTE | 2018-05-29 09:52 | [facility] Operative Report ---
Operative Report Operative Date May 29, 2018. Pre-Operative Diagnosis Umbilical Hernia, s/p Laprascopic Cholecystectomy Post-Operative Diagnosis same Procedure(s) Performed laparoscopic umbilical hernia repair Surgeon Dr. Ramin [place] Technician Surgeon(s) Elder Palacios PA-C Estimated Blood Loss 20 ml Findings umbilical hernia not related to lap nisha- 3cm diam, contained omentum used 12.5 cm surgimesh Drains None Anesthesia Type General Complication(s) none Disposition Recovery Room / PACU I attest to the content of the Intraoperative Record and any orders documented therein. Any exceptions are noted below.
[2018-05-29] MEDS ORDERED: ALBUTEROL HFA 8 GM INHALER INH PRN (10:00)
[2018-05-29] MEDS ORDERED: OXYCODONE/ACETAMINOPHEN 5-325 TAB PO PRN (10:00)
[2018-05-29] MEDS ORDERED: ACETAMINOPHEN IV 100 ML IV ONE (10:00)
[2018-05-29] MEDS ORDERED: HYDROmorphone INJ 0.5 MG/0.5 ML SYR ONE (10:47)
[2018-05-29] MEDS ORDERED: HYDROmorphone INJ 2 MG/ML SYR/VIAL IV PRN (11:00)
--- NOTE | 2018-05-29 11:06 | Anesthesiology Progress Note ---
Anesthesia Post Op Note Date & Time May 29, 2018 at 11:06 Vital Signs Pain Intensity: 4 Vital Signs Past 12 Hours Date Time Temp Pulse Resp B/P (MAP) Pulse Ox O2 Delivery O2 Flow Rate FiO2 05/29/18 11:00 89 22 141/88 96 Nasal Cannula 4 05/29/18 10:50 88 17 146/86 95 Nasal Cannula 4 05/29/18 10:40 87 18 146/92 96 Nasal Cannula 4 05/29/18 10:30 85 20 160/85 95 Oxymask 10 05/29/18 10:20 93 20 154/79 96 Oxymask 10 05/29/18 10:12 37.2 91 23 135/89 92 Oxymask 10 05/29/18 07:07 36.9 99 18 131/71 (91) 96 Room Air Notes Mental Status: alert / awake / arousable, participated in evaluation Pt Amnestic to Procedure: Yes Nausea / Vomiting: adequately controlled Pain: adequately controlled Airway Patency, RR, SpO2: stable & adequate BP & HR: stable & adequate Hydration State: stable & adequate Anesthetic Complications: no major complications apparent
[2018-05-29] MEDS ORDERED: IV FLUIDS COMPLETED PRN (11:15)
[2018-05-29] MEDS: SODIUM CHLORIDE 0.9% 1000ML 1,000 ML IV SCH (11:20)
--- NOTE | 2018-05-29 12:19 | OPERATIVE REPORT ---
DATE OF OPERATION: 05/29/2018 NAME OF OPERATION: Laparoscopic umbilical hernia repair. PREOPERATIVE DIAGNOSIS: Umbilical hernia. POSTOPERATIVE DIAGNOSIS: Same. STAFF SURGEON: Ramin Kate MD. SCROLL MACHINE OPERATOR: Elder Palacios PA-C ANESTHESIA: General. DESCRIPTION OF PROCEDURE: Patient was brought in the operating room and placed on the operating table in supine position. Her abdomen was prepped and draped in the usual fashion. 0.5% plain Marcaine was used to anesthetize all incisions. An incision was made in the left upper quadrant, carrying dissection down, identifying the fascia. A Veress needle was passed. Pneumoperitoneum produced. A 5 mm port was placed, then pneumoperitoneum continued, and then a balloon cannula placed, with the cannula secured using 0 Vicryl suture, which was attached to the fascia. Under visualization, the hernia was evident and had omentum within the hernia. It was incarcerated. It was not ischemic. At this point, two 5 mm ports were placed on the left side and one 5 mm port placed on the right side under visualization. Using cautery and blunt dissection, the omentum was brought down out of the sac, which was relatively large. There was some fluid associated with the sac. There was no ischemia. 2 small vessels were clipped with 5 mm clipper. At this point, the tissue inferior to the hernia was mobilized to expose the fascia. The other part of the fascia was relatively well exposed on the sides and cephalad. A 12.5 cm piece of Surgimesh was obtained. The defect was approximately 3 cm. Surgimesh was placed into the abdomen. The polypropylene mesh and suture were placed toward the fascia. The suture was brought up through the defect using a suture passer. The silicone was toward the bowel. The mesh was then secured using absorbable tacks in 2 rows, 1 outer and 1 inner row. At this point, after appropriate irrigation, hemostasis, and visualization, the pneumoperitoneum was reduced. All ports removed. Left upper quadrant fascial incision closed using 0 PDS suture and the 0 Vicryl suture. Subcutaneous tissue reapproximated using 2-0 plain suture, and then the skin reapproximated using subcuticular 4-0 Monocryl with Steri-Strips. 5-0 Prolene was used at the umbilical site where the suture was brought up through the defect. My dental assistant instructor helped with prepping, draping, repair of the hernia, and closure of the wounds. Patient was transferred to recovery room in stable condition. I attest to the content of the Intraoperative Record and any orders documented therein. Any exception s are noted below.
--- NOTE | 2018-05-29 12:23 | Medical Consult ---
Consultation Date of Consultation: May 29, 2018. Attending Physician: Ramin Kate M.D. Reason for Consultation: Medical Management History of Present Illness 47 y/o F who was admitted on 05/29 s/p umbilical hernia repair with Dr. Kate. Pt is doing well post-op although she states she has a lot of abd pain at present. Has just started lunch but is tolerating without issue. Pt denies fever, SOB, chest pain, abd pain, n/v/c/d, LE swelling. Pt states that she was on daily COPD preventive meds, but stopped using them "because I didn't need them". No need for rescue inhalers. Xarelto has been held since for pre-op status with plans to resume Past Medical/Surgical History HTN Hx of PE Recent lap nisha, 04/2018 Depression Migraines COPD Back cyst Family History Family history was reviewed; no changes noted. Mother: [place] Social History Smoking Status: Former Smoker (quit x 5-6 months) Alcohol Use: occasionally (rarely) Drug Use: none Marital Status: Housing Status: lives with family Occupation Status: unemployed Allergies Coded Allergies: No Known Allergies (Verified , 05/29/18) Current Inpatient Medications Current Inpatient Medications Medications (Trade) Dose Ordered Sig/Chey Route Start Time Stop Time Status Last Admin Dose Admin Lactated Ringer's 1,000 ml @ 15 mls/hr Q24H IV 05/29/18 08:00 05/30/18 07:59 Cefazolin Sodium 22.5 ml @ 4.5 mls/min PREOP IV 05/29/18 06:00 05/29/18 18:00 05/29/18 08:35 4.5 MLS/MIN Fentanyl Citrate (Fentanyl Inj) 25 mcg Q5M PRN IV 05/29/18 09:00 05/29/18 18:00 Naloxone HCl (Narcan Inj) 0.2 mg Q2M PRN IV 05/29/18 09:00 05/29/18 18:00 Flumazenil (Romazicon Inj) 0.2 mg Q2M PRN IV 05/29/18 09:00 05/29/18 18:00 Ondansetron HCl (Zofran Inj) 4 mg ONE PRN IV 05/29/18 09:00 05/29/18 18:00 Promethazine HCl 12.5 mg/Sodium Chloride 50.5 ml @ 202 mls/hr ONE PRN IV 05/29/18 09:00 05/29/18 18:00 Labetalol HCl (Normodyne IV) 5 mg Q5M PRN IV 05/29/18 09:00 05/29/18 18:00 Ephedrine Sulfate (EpHEDrine SULFATE INJ) 5 mg Q5M PRN IV 05/29/18 09:00 05/29/18 18:00 Atropine Sulfate (Atropine Sulfate 0.1mg/ml Inj) 0.5 mg Q1M PRN IV 05/29/18 09:00 05/29/18 18:00 Sodium Chloride 1,000 ml @ 50 mls/hr Q20H IV 05/29/18 09:52 06/28/18 09:51 UNV Cefazolin Sodium 1000 mg/Dextrose 57.5 ml @ 100 mls/hr Q8 IV 05/29/18 14:00 05/30/18 13:59 UNV Albuterol (Ventolin Hfa Inhaler) 2 puffs Q4 PRN INH 05/29/18 10:00 06/28/18 09:59 UNV Clonidine HCl (Catapres Tab) 0.1 mg QPM PO 05/29/18 21:00 06/28/18 20:59 UNV Gabapentin (Neurontin Tab) 1,200 mg TID PO 05/29/18 14:00 06/28/18 13:59 UNV Lisinopril (Zestril Tab) 10 mg QAM PO 05/30/18 09:00 06/29/18 08:59 UNV Hydromorphone HCl (Dilaudid Inj) 0.5 mg Q3H PRN IV 05/29/18 10:00 06/12/18 09:59 UNV Hydromorphone HCl (Dilaudid Inj) 1 mg Q3H PRN IV 05/29/18 10:00 06/12/18 09:59 UNV Oxycodone/ Acetaminophen (Percocet 5-325mg Tab) 1 tab Q4H PRN PO 05/29/18 10:00 06/12/18 09:59 UNV Oxycodone/ Acetaminophen (Percocet 5-325mg Tab) 2 tab Q4H PRN PO 05/29/18 10:00 06/12/18 09:59 UNV Senna/Docusate Sodium (Senokot S Tab) 1 tab BID PO 05/29/18 21:00 06/28/18 20:59 UNV Ondansetron HCl (Zofran Inj) 4 mg Q6H PRN IV 05/29/18 10:00 06/28/18 09:59 UNV Hydromorphone HCl (Dilaudid Inj) 0.25 mg UD PRN IV 05/29/18 11:00 06/12/18 10:59 UNV Miscellaneous (Iv Fluids Completed) 1 ea PRN PRN N/A 05/29/18 11:15 05/29/19 11:14 UNV Review of Systems Pertinent positives and negatives reviewed in HPI--all others negative Physical Exam Date Time Temp Pulse Resp B/P (MAP) Pulse Ox O2 Delivery O2 Flow Rate FiO2 05/29/18 11:20 94 Nasal Cannula 2.0 05/29/18 11:20 94 Nasal Cannula 2.0 05/29/18 11:16 37.0 90 15 148/88 (108) 93 Nasal Cannula 2.0 05/29/18 11:10 36.6 85 17 143/86 96 Nasal Cannula 4 05/29/18 11:00 89 22 141/88 96 Nasal Cannula 4 05/29/18 10:50 88 17 146/86 95 Nasal Cannula 4 05/29/18 10:40 87 18 146/92 96 Nasal Cannula 4 05/29/18 10:30 85 20 160/85 95 Oxymask 10 05/29/18 10:20 93 20 154/79 96 Oxymask 10 05/29/18 10:12 37.2 91 23 135/89 92 Oxymask 10 05/29/18 07:07 36.9 99 18 131/71 (91) 96 Room Air General Appearance: no apparent distress, + obese Head: normocephalic, atraumatic Eyes: normal inspection, sclerae normal Respiratory/Chest: normal breath sounds, no respiratory distress Cardiovascular: regular rate, rhythm, no edema Abdomen/GI: soft, + tenderness Extremities/Musculoskelatal: no calf tenderness, no pedal edema Neurologic/Psych: alert, normal mood/affect, oriented x 3 Skin: normal color, warm/dry Laboratory Results Last 24 Hours Test 05/29/18 06:39 05/29/18 07:01 Potassium Level 3.5 mmol/L Assessment & Plan 47 y/o F who was admitted on 05/29 s/p umbilical hernia repair with Dr. Kate. Umbilical hernia repair DVT proph and diet as per gen surg Pre-op Hb 14.8 HTN: stable. continue home meds Hx PE: xarelto on hold, to be resumed as per gen surg Depression/back cyst: gabapentin States depression is situational only COPD: not on current maintenance meds, monitor Migraines: has not had one this year Recent fabrice cameron, 04/2018
[2018-05-29] MEDS: GABAPENTIN 600 MG TAB PO SCH ×2 (13:54→20:55)
[2018-05-29] MEDS ORDERED: CEFAZOLIN IV 1,000 MG in DEXTROSE 5% 50ML 50 ML IV SCH (14:00)
[2018-05-29] MEDS: HYDROmorphone INJ 1 MG/ML SYR IV PRN ×3 (14:01→20:56)
[2018-05-29] MEDS: CEFAZOLIN IV 1,000 MG in SYRINGE 0 ML IV SCH ×2 (15:16→23:55)
[2018-05-29] MEDS: CLONIDINE HCL 0.1 MG TAB PO SCH (20:55)
[2018-05-29] MEDS: DOCUSATE SODIUM/SENNA 50/8.6MG TAB PO SCH (20:56)
[2018-05-30] MEDS: HYDROmorphone INJ 1 MG/ML SYR IV PRN ×5 (00:57→21:44)
[2018-05-30 03:14] VITALS: BP 122/73; PULSE 101; TEMP 36.9; O2SAT 92
[2018-05-30] MEDS: SODIUM CHLORIDE 0.9% 1000ML 1,000 ML IV SCH (05:18)
[2018-05-30 05:19] LABS: HEMATOCRIT 38.7 % (37-47); HEMOGLOBIN 12.8 g/dL (12.0-16.0); MEAN CORPUSCULAR HEMOGLOBIN 33.4 pg (25-34); MEAN CORPUSCULAR HGB CONC 33.1 g/dl (32-36); MEAN PLATELET VOLUME 11.5 fL (7.4-10.4); PLATELET COUNT 167 K/uL (130-400); RED CELL DISTRIBUTION WIDTH CV 16.1 % (11.5-14.5); RED CELL DISTRIBUTION WIDTH SD 59.4 fL (36.4-46.3); WHITE BLOOD COUNT 13.17 K/uL (4.8-10.8)
[2018-05-30 05:50] LABS: CALCIUM 8.5 mg/dl (8.5-10.1); CREATININE 0.89 mg/dl (0.60-1.20); PHOSPHORUS 2.7 mg/dl (2.5-4.9); POTASSIUM 4.9 mmol/L (3.5-5.1)
--- NOTE | 2018-05-30 06:40 | Surgery Progress Note ---
Surgery Progress Note Date of Service May 30, 2018. Subjective awake , alert- some pain as expected Labs stable- H/H ok- start SQ Heparin, hold Xarelto today Objective Vital Signs: Date Time Temp Pulse Resp B/P (MAP) Pulse Ox O2 Delivery O2 Flow Rate FiO2 05/30/18 03:14 36.9 101 18 122/73 (89) 92 Room Air 05/29/18 23:48 Room Air 05/29/18 23:35 36.9 102 18 114/73 (87) 92 Room Air 05/29/18 18:59 36.9 104 18 123/73 (90) 92 Room Air 05/29/18 15:25 Room Air 05/29/18 14:20 36.8 114 18 128/75 (92) 95 Room Air 05/29/18 13:25 102 18 115/62 (79) 94 Room Air 05/29/18 12:26 96 16 127/81 (96) 96 Room Air 05/29/18 11:50 95 16 136/78 (97) 95 Nasal Cannula 2.0 05/29/18 11:20 94 Nasal Cannula 2.0 05/29/18 11:20 94 Nasal Cannula 2.0 05/29/18 11:16 37.0 90 15 148/88 (108) 93 Nasal Cannula 2.0 05/29/18 11:10 36.6 85 17 143/86 96 Nasal Cannula 4 05/29/18 11:00 89 22 141/88 96 Nasal Cannula 4 05/29/18 10:50 88 17 146/86 95 Nasal Cannula 4 05/29/18 10:40 87 18 146/92 96 Nasal Cannula 4 05/29/18 10:30 85 20 160/85 95 Oxymask 10 05/29/18 10:20 93 20 154/79 96 Oxymask 10 05/29/18 10:12 37.2 91 23 135/89 92 Oxymask 10 05/29/18 07:07 36.9 99 18 131/71 (91) 96 Room Air General Appearance: no apparent distress Respiratory/Chest: no respiratory distress Abdomen: soft Incision(s): intact Laboratory Results: Results Past 24 Hours Test 05/29/18 06:39 05/29/18 07:01 05/30/18 05:06 Range/Units Potassium Level 3.5 4.9 3.5-5.1 mmol/L White Blood Count 13.17 4.8-10.8 K/uL Red Blood Count 3.83 4.2-5.4 M/uL Hemoglobin 12.8 12.0-16.0 g/dL Hematocrit 38.7 37-47 % Mean Corpuscular Volume 101.0 80-100 fL Mean Corpuscular Hemoglobin 33.4 25-34 pg Mean Corpuscular Hemoglobin Concent 33.1 32-36 g/dl RDW Standard Deviation 59.4 36.4-46.3 fL RDW Coefficient of Variation 16.1 11.5-14.5 % Platelet Count 167 130-400 K/uL Mean Platelet Volume 11.5 7.4-10.4 fL Sodium Level 138 136-145 mmol/L Chloride Level 107 98-107 mmol/L Carbon Dioxide Level 24 21-32 mmol/L Anion Gap 7.0 3-11 mmol/L Blood Urea Nitrogen 7 7-18 mg/dl Creatinine 0.89 0.60-1.20 mg/dl Est Creatinine Clear Calc Drug Dose 112.3 ml/min Estimated GFR () 88.2 Estimated GFR (Non- 76.1 BUN/Creatinine Ratio 7.6 10-20 Random Glucose 199 70-99 mg/dl Calcium Level 8.5 8.5-10.1 mg/dl Phosphorus Level 2.7 2.5-4.9 mg/dl Magnesium Level 2.1 1.8-2.4 mg/dl Assessment & Plan 05/30/18- s/p laparoscopic umbilical hernia repair- will keep in hospital 1-2 days for IV atbx and pain control , also SC Heparin for now- then possibly restart Xarelto tomorrow. ambulate
[2018-05-30] MEDS ORDERED: CEPH500C2 PO (06:42)
[2018-05-30] MEDS ORDERED: OXYC-57 PO (06:42)
--- NOTE | 2018-05-30 07:09 | Discharge Instructions ---
Discharge Instructions Date of Service May 30, 2018. Admission Reason for Admission: Umbilical Hernia Discharge Discharge Diagnosis / Problem: umbilical hernia Discharge Goals Goal(s): Decrease discomfort, Improve function Activity Recommendations Activity Limitations: as noted below Lifting Limitations: no more than 10 pounds Exercise/Sports Limitations: until after follow-up appointment May Resume Sexual Activity: when tolerated Shower/Bathe: tomorrow Driving or Machine Use: one week . Instructions / Follow-Up Instructions / Follow-Up SPECIAL CARE INSTRUCTIONS: * Cover incisions and change daily for comfort/drainage. * May use ibuprofen for pain as tolerated. may use Senokot S and Miralax for constipation * Expect some swelling and bruising. Call your doctor if: * Temperature above 101 degrees * Pain not relieved by pain medicine ordered * There is increased drainage or redness from any incision * You have any unanswered questions or concerns [phone]. FOLLOW UP VISIT: If not already scheduled, please call the office for a follow-up visit. for next week- check up, suture removal OFFICE PHONE NUMBER: Dr. Kate Office Current Hospital Diet Patient's current hospital diet: Regular Diet Discharge Diet Recommended Diet: Regular Diet Procedures Procedures Performed: laparoscopic umbilical hernia repair Pending Studies Studies pending at discharge: no Medical Emergencies . Who to Call and When: Medical Emergencies: If at any time you feel your situation is an emergency, please call 911 immediately. . Non-Emergent Contact Non-Emergency issues call your: Primary Care Provider, Surgeon . "Provider Documentation" section prepared by Ramin Kate. .
[2018-05-30] MEDS: CEFAZOLIN IV 1,000 MG in SYRINGE 0 ML IV SCH (07:34)
[2018-05-30] MEDS: HEPARIN SOD 5000 UNIT/0.5 ML CARP SQ SCH ×2 (07:46→21:44)
[2018-05-30 07:57] VITALS: BP 111/84; PULSE 66; TEMP 36.8; O2SAT 97
[2018-05-30 08:38] VITALS: O2SAT 97
[2018-05-30] MEDS: DOCUSATE SODIUM/SENNA 50/8.6MG TAB PO SCH ×2 (08:50→21:28)
[2018-05-30] MEDS: GABAPENTIN 600 MG TAB PO SCH ×3 (08:50→21:28)
[2018-05-30] MEDS: LISINOPRIL 10 MG TAB PO SCH (08:50)
[2018-05-30] MEDS: MAGNESIUM HYDROXIDE SUSP 30 ML UDC PO SCH ×2 (08:51→21:00)
--- NOTE | 2018-05-30 09:23 | Anesthesiology Progress Note ---
Anesthesia Post Op Note Date & Time May 30, 2018 at 09:22 Vital Signs Vital Signs Past 12 Hours Date Time Temp Pulse Resp B/P (MAP) Pulse Ox O2 Delivery O2 Flow Rate FiO2 05/30/18 08:38 97 Room Air 05/30/18 07:57 36.8 66 20 111/84 (93) 97 Room Air 05/30/18 07:27 Room Air 05/30/18 03:14 36.9 101 18 122/73 (89) 92 Room Air 05/29/18 23:48 Room Air 05/29/18 23:35 36.9 102 18 114/73 (87) 92 Room Air Notes Mental Status: alert / awake / arousable, participated in evaluation Pt Amnestic to Procedure: Yes Nausea / Vomiting: adequately controlled Pain: adequately controlled Airway Patency, RR, SpO2: stable & adequate BP & HR: stable & adequate Hydration State: stable & adequate Anesthetic Complications: no major complications apparent
--- NOTE | 2018-05-30 09:57 | Hospitalist Progress Note ---
Hospitalist Progress Note Date of Service May 30, 2018. (Lanie Nunez CRNP) Subjective Pt evaluation today including: conversation w/ patient, physical exam, chart review, lab review, review of inpatient medication list Voiding: no voiding problems Ms. Vick is having belly pain at her surgical site but otherwise has no complaints. ROS Constitutional: no chills, aches, sweats or fever Respiratory: no sob,cough, sputum, or wheezing Cardiac: no chest pain, palpitations, edema, orthopnea or lightheadedness GI: no abdominal pain, nausea, vomiting, diarrhea or constipation : no dysuria or hesitancy Extremities: no joint pain or weakness Skin: no rash All other systems reviewed and negative (Lanie Nunez CRNP) Medications Medications Administered Medications (Trade) Dose Ordered Sig/Chey Route Start Time Stop Time Status Last Admin Dose Admin Cefazolin Sodium 22.5 ml @ 4.5 mls/min PREOP IV 05/29/18 06:00 05/29/18 18:01 DC 05/29/18 08:35 4.5 MLS/MIN Bupivacaine HCl (Marcaine 0.5% Pf Inj) 20 ml STK-MED ONCE .ROUTE 05/29/18 08:21 05/29/18 08:22 DC 05/29/18 09:47 17 ML Sodium Chloride 1,000 ml @ 50 mls/hr Q20H IV 05/29/18 09:52 05/30/18 06:36 DC 05/30/18 05:18 50 MLS/HR Clonidine HCl (Catapres Tab) 0.1 mg QPM PO 05/29/18 21:00 06/28/18 20:59 05/29/18 20:55 0.1 MG Gabapentin (Neurontin Tab) 1,200 mg TID PO 05/29/18 14:00 06/28/18 13:59 05/30/18 08:50 1,200 MG Acetaminophen 100 ml @ 400 mls/hr ONE ONCE IV 05/29/18 10:00 05/29/18 10:14 DC 05/29/18 10:42 400 MLS/HR Hydromorphone HCl (Dilaudid Inj) 1 mg Q3H PRN IV 05/29/18 10:00 06/12/18 09:59 05/30/18 07:35 1 MG Senna/Docusate Sodium (Senokot S Tab) 1 tab BID PO 05/29/18 21:00 06/28/18 20:59 05/30/18 08:50 1 TAB Fentanyl Citrate (Fentanyl Inj) 100 mcg STK-MED ONCE .ROUTE 05/29/18 10:23 05/29/18 10:24 DC 05/29/18 10:43 25 MCG Hydromorphone HCl (Dilaudid Inj) 0.5 mg STK-MED ONCE .ROUTE 05/29/18 10:47 05/29/18 10:48 DC 05/29/18 10:56 0.25 MG Cefazolin Sodium 1000 mg/Syringe 7.5 ml @ 2.5 mls/min Q8H IV 05/29/18 16:00 05/30/18 15:59 05/30/18 07:34 2.5 MLS/MIN Heparin Sodium (Porcine) (Heparin Sq 5000 Unit/0.5ml) 5,000 unit Q12H SQ 05/30/18 08:00 06/29/18 07:59 05/30/18 07:46 5,000 UNIT (Lanie Nunez CRNP) Objective Vital Signs Date Time Temp Pulse Resp B/P (MAP) Pulse Ox O2 Delivery O2 Flow Rate FiO2 05/30/18 08:38 97 Room Air 05/30/18 07:57 36.8 66 20 111/84 (93) 97 Room Air 05/30/18 07:27 Room Air 05/30/18 03:14 36.9 101 18 122/73 (89) 92 Room Air 05/29/18 23:48 Room Air 05/29/18 23:35 36.9 102 18 114/73 (87) 92 Room Air 05/29/18 18:59 36.9 104 18 123/73 (90) 92 Room Air 05/29/18 15:25 Room Air 05/29/18 14:20 36.8 114 18 128/75 (92) 95 Room Air 05/29/18 13:25 102 18 115/62 (79) 94 Room Air 05/29/18 12:26 96 16 127/81 (96) 96 Room Air 05/29/18 11:50 95 16 136/78 (97) 95 Nasal Cannula 2.0 05/29/18 11:20 94 Nasal Cannula 2.0 05/29/18 11:20 94 Nasal Cannula 2.0 05/29/18 11:16 37.0 90 15 148/88 (108) 93 Nasal Cannula 2.0 05/29/18 11:10 36.6 85 17 143/86 96 Nasal Cannula 4 05/29/18 11:00 89 22 141/88 96 Nasal Cannula 4 05/29/18 10:50 88 17 146/86 95 Nasal Cannula 4 05/29/18 10:40 87 18 146/92 96 Nasal Cannula 4 05/29/18 10:30 85 20 160/85 95 Oxymask 10 05/29/18 10:20 93 20 154/79 96 Oxymask 10 05/29/18 10:12 37.2 91 23 135/89 92 Oxymask 10 (Lanie Nunez CRNP) Physical Exam Notes: General: no distress Eyes: normal inspection, PERLL Respiratory: chest non tender, clear to auscultation, normal breath sounds, no respiratory distress, no accessory muscle use Cardiac: regular rate and rhythm, no rub or gallop, no murmur, no edema, no jvd GI/: active bowel sounds, no abd pain or tenderness, soft, non distended Extremities: normal range of motion, normal strength, non tender Neuro/Psych: alert and oriented x 3, normal mood and affect Skin: normal color, dry (Lanie Nunez CRNP) Laboratory Results Last 24 Hours Test 05/30/18 05:06 White Blood Count 13.17 K/uL Red Blood Count 3.83 M/uL Hemoglobin 12.8 g/dL Hematocrit 38.7 % Mean Corpuscular Volume 101.0 fL Mean Corpuscular Hemoglobin 33.4 pg Mean Corpuscular Hemoglobin Concent 33.1 g/dl RDW Standard Deviation 59.4 fL RDW Coefficient of Variation 16.1 % Platelet Count 167 K/uL Mean Platelet Volume 11.5 fL Sodium Level 138 mmol/L Potassium Level 4.9 mmol/L Chloride Level 107 mmol/L Carbon Dioxide Level 24 mmol/L Anion Gap 7.0 mmol/L Blood Urea Nitrogen 7 mg/dl Creatinine 0.89 mg/dl Est Creatinine Clear Calc Drug Dose 112.3 ml/min Estimated GFR () 88.2 Estimated GFR (Non- 76.1 BUN/Creatinine Ratio 7.6 Random Glucose 199 mg/dl Calcium Level 8.5 mg/dl Phosphorus Level 2.7 mg/dl Magnesium Level 2.1 mg/dl (Lanie Nunez CRNP) Assessment and Plan 47 y/o F who was admitted on 05/29 s/p umbilical hernia repair with Dr. Kate. Umbilical hernia repair DVT proph and diet as per gen surg Pre-op Hb 14.8, 12.8 today HTN: stable. continue clonidine and lisinopril Hx PE: xarelto on hold, to be resumed as per gen surg Depression/back cyst: continue gabapentin States depression is situational only COPD: not on current maintenance meds, monitor Migraines: has not had one this year Recent lap nisha, 04/2018 Medicine will sign off for now, please let us know if we can be of assistance in the future (Lanie Nunez CRNP) FINISH REPAIR WORKER Physician Supervision Note: I discussed with Lanie Nunez FINISH REPAIR WORKER and agree with findings and plan as documented in the note. Any exceptions or clarifications are listed here: None Patient's hypertension has been stable post procedure, her Xarelto is on hold but she is being treated for pulmonary embolism just be restarted per surgical preference usually 24 hours post op and when hemostasis is achieved Documented By: Que Blanco (Que Blanco M.D.)
[2018-05-30 11:53] VITALS: BP 106/66; PULSE 80; TEMP 36.7; O2SAT 96
[2018-05-30 15:21] VITALS: BP 118/69; PULSE 88; TEMP 36.8; O2SAT 94
[2018-05-30] MEDS ORDERED: MICONAZOLE NITRATE POWDER 43 GM EXT PRN (16:45)
[2018-05-30] MEDS: CLONIDINE HCL 0.1 MG TAB PO SCH (21:28)
[2018-05-30 23:34] VITALS: BP 117/77; PULSE 87; TEMP 36.8; O2SAT 97
[2018-05-31] MEDS: HYDROmorphone INJ 1 MG/ML SYR IV PRN ×4 (01:34→19:09)
[2018-05-31] MEDS: OXYCODONE/ACETAMINOPHEN 5-325 TAB PO PRN ×5 (03:11→23:06)
[2018-05-31] MEDS ORDERED: CEPH500C2 PO (06:29)
[2018-05-31] MEDS ORDERED: OXYC-57 PO (06:29)
--- NOTE | 2018-05-31 06:32 | Surgery Progress Note ---
Surgery Progress Note Date of Service May 31, 2018. Subjective alert, some pain- improving positive flatus Objective Vital Signs: Date Time Temp Pulse Resp B/P (MAP) Pulse Ox O2 Delivery O2 Flow Rate FiO2 05/31/18 00:00 Room Air 05/30/18 23:34 36.8 87 16 117/77 (90) 97 Room Air 05/30/18 16:10 Room Air 05/30/18 15:21 36.8 88 16 118/69 (85) 94 05/30/18 11:53 36.7 80 16 106/66 (79) 96 Room Air 05/30/18 08:38 97 Room Air 05/30/18 07:57 36.8 66 20 111/84 (93) 97 Room Air 05/30/18 07:27 Room Air General Appearance: no apparent distress Respiratory/Chest: no respiratory distress Abdomen: soft Incision(s): intact Assessment & Plan 05/31/18- improving- req some IV pain med and also continuing IV atbx paln d/c tomorrow 05/30/18- s/p laparoscopic umbilical hernia repair- will keep in hospital 1-2 days for IV atbx and pain control , also SC Heparin for now- then possibly restart Xarelto tomorrow. ambulate 05/30/18- s/p laparoscopic umbilical hernia repair- will keep in hospital 1-2 days for IV atbx and pain control , also SC Heparin for now- then possibly restart Xarelto tomorrow. ambulate
[2018-05-31 07:52] VITALS: BP 118/76; PULSE 72; TEMP 36.5; O2SAT 97
[2018-05-31] MEDS: HEPARIN SOD 5000 UNIT/0.5 ML CARP SQ SCH ×2 (07:53→20:48)
[2018-05-31 08:17] VITALS: O2SAT 97
[2018-05-31] MEDS: DOCUSATE SODIUM/SENNA 50/8.6MG TAB PO SCH ×2 (08:45→20:42)
[2018-05-31] MEDS: LISINOPRIL 10 MG TAB PO SCH (08:45)
[2018-05-31] MEDS: GABAPENTIN 600 MG TAB PO SCH ×3 (08:45→20:42)
[2018-05-31 11:46] VITALS: BP 113/68; PULSE 90; TEMP 36.7; O2SAT 96
[2018-05-31 15:35] VITALS: BP 127/83; PULSE 96; TEMP 36.6; O2SAT 97
[2018-05-31 15:45] VITALS: O2SAT 97
[2018-05-31] MEDS: CLONIDINE HCL 0.1 MG TAB PO SCH (20:42)
[2018-05-31 23:17] VITALS: BP 131/75; PULSE 90; TEMP 36.7; O2SAT 98
[2018-06-01] MEDS: HYDROmorphone INJ 1 MG/ML SYR IV PRN (01:26)
--- NOTE | 2018-06-01 07:01 | DISCHARGE SUMMARY ---
PRINCIPAL DIAGNOSIS: Umbilical hernia. PROCEDURES: Patient underwent laparoscopic umbilical hernia repair. HISTORY OF PRESENT ILLNESS: Patient is a 47-year-old female with an enlarging umbilical hernia with pain. HOSPITAL COURSE: Patient was brought in to the hospital on 05/29/2018 where she underwent laparoscopic umbilical hernia repair. She is on anticoagulants and has been slowly advanced and to be placed back on her Xarelto. She will be discharged home today to be followed in the surgical clinic next week. She has done well in the hospital.
[2018-06-01 07:10] VITALS: BP 138/88; PULSE 88; TEMP 36.8; O2SAT 96
[2018-06-01] MEDS: OXYCODONE/ACETAMINOPHEN 5-325 TAB PO PRN ×2 (08:00→12:17)
[2018-06-01] MEDS: LISINOPRIL 10 MG TAB PO SCH (08:54)
[2018-06-01] MEDS: GABAPENTIN 600 MG TAB PO SCH ×2 (08:55→14:00)
[2018-06-01] MEDS: DOCUSATE SODIUM/SENNA 50/8.6MG TAB PO SCH (08:55)
[2018-06-01] MEDS: HEPARIN SOD 5000 UNIT/0.5 ML CARP SQ SCH (09:04)
[2018-06-01] MEDS: HYDROmorphone INJ 0.5 MG/0.5 ML SYR IV PRN ×2 (10:22→14:00)
[2018-06-01 10:36] VITALS: BP 138/88; PULSE 88; TEMP 36.8; O2SAT 96
[2018-06-05] MEDS ORDERED: LACTATED RINGER'S 1000ML 1,000 ML IV SCH (06:00)
[2018-06-05] MEDS ORDERED: CEFAZOLIN 3000MG IV PUSH 22.5 ML IV SCH (06:00)
== END 2018-06-01 15:57 | disposition home or self-care (01) | DRG 354 ==
LOC: C.ACU 06:18 → C.MSN 09:57 → ENRESERV 10:37 → OBSVTOIN 05-30 06:36
PROVIDERS: ADMIT Surgery; ATTEND Surgery
PROC: 0WQF4ZZ Repair Abdominal Wall, Percutaneous Endoscopic Approach (ICD-10-PCS; principal; 2018-05-29 08:30)
PROC: 0WUF4JZ Supplement Abdominal Wall with Synthetic Substitute, Percutaneous Endoscopic Approach (ICD-10-PCS; principal; 2018-05-29 08:30)
DX: K42.9 Umbilical hernia without obstruction or gangrene (principal); J45.902 Unspecified asthma with status asthmaticus; Z79.01 Long term (current) use of anticoagulants; Z98.890 Other specified postprocedural states; J44.9 Chronic obstructive pulmonary disease, unspecified; E66.9 Obesity, unspecified; Z68.42 Body mass index [BMI] 45.0-49.9, adult

== ENCOUNTER 2019-01-06 21:55 | Inpatient (IN) ==
[2019-01-06 23:02] LABS: Appearance Urine Clear (Clear); Bilirubin Urine Negative (Negative); Color Urine Yellow; Glucose Urine UA 3+ (Negative); Ketones Urine Negative (Negative); Leukocyte Esterase Urine Negative (Negative); Nitrite Urine Negative (Negative); Protein Urine Negative (Negative); Specific Gravity Urine 1.036 (1.000-1.030); Urobilinogen Urine Negative (Negative)
[2019-01-06 23:08] LABS: Alanine Aminotransferase 35 U/L (12-78); Albumin Globulin Ratio 0.7 (0.9-2); Albumin Level 3.5 gm/dl (3.4-5.0); Alkaline Phosphatase 227 U/L (45-117); Aspartate Aminotransferase 19 U/L (15-37); Bilirubin,Total 0.9 mg/dl (0.2-1); Blood Urea Nitrogen 5 mg/dl (7-18); Calcium 9.8 mg/dl (8.5-10.1); Carbon Dioxide 18 mmol/L (21-32); Chloride 97 mmol/L (98-107); Creatinine Clr Calc Pharmacy 54.5 ml/min; Est GFR (African American) 41.8; Est GFR (Non-African American) 36.1; Globulin 4.9 gm/dl (2.5-4.0); Glucose 1088 mg/dl (70-99); Sodium 131 mmol/L (136-145); Total Protein 8.4 gm/dl (6.4-8.2)
[2019-01-06] MEDS ORDERED: SODIUM CHLORIDE 0.9% 1000ML 1,000 ML IV ONE (23:10)
[2019-01-06] MEDS ORDERED: HHS GOAL RANGE 250-350 mg/dl ONE (23:11)
[2019-01-06] MEDS ORDERED: MODERATE STRESS LEVEL ONE (23:11)
[2019-01-06] MEDS ORDERED: INSULIN REGULAR 250 UNITS in SODIUM CHLORIDE 0.9% 247.5 ML IV SCH (23:15)
[2019-01-06 23:26] LABS: Magnesium 2.4 mg/dl (1.8-2.4)
[2019-01-06 23:27] LABS: Bacteria Urine Automated Negative (Negative); Cast Urine Automated 0 /lpf (0-5)
[2019-01-06 23:31] LABS: Hematocrit (blood only) 43.5 % (37-47); Hemoglobin 14.7 g/dL (12.0-16.0); Mean Corpuscular Hemoglobin 31.1 pg (25-34); Mean Corpuscular Hgb Conc 33.8 g/dL (32-36); Platelet Count 116 K/uL (130-400); Red Blood Count 4.73 M/uL (4.2-5.4); White Blood Count 8.05 K/uL (4.8-10.8)
[2019-01-06 23:32] LABS: Basophils # (auto) 0.02 K/uL (0-0.2); Basophils % (auto) 0.2 %; Eosinophils # (auto) 0.04 K/uL (0-0.5); Eosinophils % (auto) 0.5 %; Immature Granulocytes # (auto) 0.02 K/uL (0.00-0.02); Immature Granulocytes % (auto) 0.2 %; Lymphocytes # (auto) 1.11 K/uL (1.2-3.4); Lymphocytes % (auto) 13.8 %; Monocytes # (auto) 0.75 K/uL (0.11-0.59); Monocytes % (auto) 9.3 %; Neutrophils # (auto) 6.11 K/uL (1.4-6.5); RBC Morphology Unremarkable
[2019-01-06] MEDS ORDERED: ACETAMINOPHEN 1,000 MG/100 ML VIAL IV STA (23:37)
[2019-01-06 23:44] LABS: Thyroid Stimulating Hormone 0.531 uIu/ml (0.300-4.500); Troponin I < 0.015 ng/ml (0-0.045)
[2019-01-06] MEDS ORDERED: DEXTROSE 50% 50 ML SYRINGE IV PRN (23:45)
[2019-01-06] MEDS ORDERED: CARBOHYDRATES FOR HYPOGLYCEMIA PO PRN (23:45)
[2019-01-06] MEDS ORDERED: GLUCOSE 40% GEL 15 GM TUBE PO PRN (23:45)
[2019-01-06] MEDS ORDERED: GLUCAGON FOR INJ 1 MG VIAL IM PRN (23:45)
[2019-01-06] MEDS ORDERED: GLUCOSE 10 TABS/TUBE PO PRN (23:45)
[2019-01-06] MEDS ORDERED: NovoLIN-R BOLUS FROM BAG IV ONE (23:45)
--- NOTE | 2019-01-06 23:57 | History & Physical Report ---
Date of Service January 06, 2019 Assessment & Plan (1) Hyperglycemia: 48 y/o F Hx HTN, PE - Xarelto, morbid obesity, depression, migraines, recent admission for abdominal cellulitis/abscess and for lower extremity weakness possibly due to lumbar stenosis, deconditioning and obesity. She is being treated with Keflex for an abscess in the R axilla. The pt states that she developed polydipsia and polyuria over the past several days. It was at the point where she was constantly drinking ice water. She recognized this as a symptom of hyperglycemia as her had a similar issue before being diagnosed with DM. She called her MD who instructed her to attend the ER. Initial labs demonstrated a glucose of 1088 and hypokalemia. She does not have an anion gap or ketones. She denies lightheadedness, confusion, adb pain, nausea or vomiting. 1) NKH - new-onset DM with a glucose of > 1000. She is tolerating this remarkably well. She will be placed on telemetry with an insulin drip. Electrolytes will be trended and replaced as needed. DM education, nutrition consultation and endocrine f/u. 2) Hypokalemia - receiving K 3) Axillary abscess - appears to be resolving - cont Keflex 4) Depression - cont Fluoxetine 5) Hx PE - cont Xarelto Full code - Xarelto prophylaxis Total time for this admit including review of labs, meds, imaging, records - discussion with pt and ER attending - 41 min History of Present Illness Chief Complaint: High glucose - [facility] Primary Care Provider: Aneudy Pérez MD 48 y/o F Hx HTN, PE - Xarelto, morbid obesity, depression, migraines, recent admission for abdominal cellulitis/abscess and for lower extremity weakness possibly due to lumbar stenosis, deconditioning and obesity. She is being treated with Keflex for an abscess in the R axilla. The pt states that she developed polydipsia and polyuria over the past several days. It was at the point where she was constantly drinking ice water. She recognized this as a symptom of hyperglycemia as her had a similar issue before being diagnosed with DM. She called her MD who instructed her to attend the ER. Initial labs demonstrated a glucose of 1088 and hypokalemia. She does not have an anion gap or ketones. She denies lightheadedness, confusion, adb pain, nausea or vomiting. PMH: 1) Morbid obesity 2) PE - on Xarelto 3) Depression 4) Migraines 5) Radiculopathy 6) Lumbar stenosis Surgery: Cholecystectomy Social: Does not drink - states she quit smoking 3 month ago History of prescription opiate abuse Family: Mother due to colon CA - Hx CAD/GA Father 75 y/o without medical issues Allergies Allergy/AdvReac Type Severity Reaction Status Date / Time levofloxacin [From Levaquin] AdvReac Vomiting Verified 01/06/19 23:35 Home Medications Home Medications Medication Instructions Recorded Confirmed Type cyclobenzaprine 10 mg PO BID PRN #0 11/18/17 01/06/19 History gabapentin 1,200 mg PO TID #0 tab 11/18/17 01/06/19 History albuterol sulfate [Ventolin HFA] 2 puff INHALATION Q6H PRN #0 02/10/18 01/06/19 History ondansetron HCl 4 mg PO Q6H PRN #12 tab 06/21/18 01/06/19 Rx doxepin 200 mg PO HS 08/25/18 01/06/19 History fluoxetine 20 mg PO DAILY 08/25/18 01/06/19 History rivaroxaban 20 mg PO DAILY 08/25/18 01/06/19 History sumatriptan succinate 25 mg PO DIRECTED PRN 08/25/18 01/06/19 History sulfamethoxazole-trimethoprim 160 mg PO Q12H #14 tab 12/31/18 01/06/19 Rx [Bactrim DS] diclofenac sodium [Voltaren] 4 g EXT QID PRN 01/05/19 01/06/19 History Past Med/Surg History Social History Preferred Language: [place] Beliefs That Will Affect Care: None marital status: Current Living Situation: Alone Current Living Situation Comment: pt lives in 2 story [place] Feels Safe at Home: Yes Smoking Status: Former smoker Hx Alcohol Use: Yes Hx Substance Use: No Review of Systems Gen: Denies fevers, night sweats, rigors, fatigue, malaise, weight loss/gain ENT: Denies congestion, throat pain, hearing loss Eyes: Denies acute visual changes CV: Denies CP, palpitations Pulmonary: Denies SOB, cough, wheezing GI: Denies N/V, diarrhea, constipation Neuro: Denies acute or unilateral weakness, acute gait impairment, headache or acute visual changes Musculoskeletal: Denies joint pain, inflammation Endocrine: Describes polydipsia, polyuria Skin: Denies acute rashes or ulcers - being treated for 3 small abscesses in R axilla which are reolving Physical Exam Vital Signs (Past 24 Hours): Last Vital Signs Temp 37.6 C H 01/06/19 21:42 Pulse 104 H 01/06/19 23:14 Resp 20 01/06/19 23:14 BP 157/80 H 01/06/19 23:14 Pulse Ox 98 01/06/19 23:14 Physical Exam: General: AAO x 3, no distress ENT: No erythema or exudates, no thrush Eyes: CANDACE, EOMI Head and neck: Normocephalic, atraumatic, No JVD, neck is supple. Chest/heart: Nontender, S1,2, RRR, no murmurs, no gallops Lungs: CTAB, no wheezing or crackles Abdomen: Nontender, nondistended, BS+ Neuro: AAO x 3, speech is clear, no unilateral weakness or loss of sensation, coordination intact Musculoskeletal: No joint inflammation, muscle tenderness, FROM Skin: Very small abscesses - R axilla Extremities: No clubbing, cyanosis, edema
[2019-01-06 23:59] LABS: HCO3 ABG 20 mmol/L (19-24); PCO2 ABG 29 mmHg (35-46); PO2 ABG 76 mm/Hg (80-95); pH ABG 7.45 (7.35-7.45)
[2019-01-07 00:17] LABS: Allen Test POS (Pos)
[2019-01-07] MEDS ORDERED: ALBUTEROL HFA 8 GM INHALER INH PRN (00:44)
[2019-01-07] MEDS ORDERED: CYCLOBENZAPRINE HCL 10 MG TAB PO PRN (00:44)
[2019-01-07] MEDS ORDERED: HHS GOAL RANGE 250-350 mg/dl ONE (00:44)
[2019-01-07] MEDS ORDERED: POTASSIUM CHLORIDE 20 MEQ TABCR PO STA (00:44)
[2019-01-07] MEDS ORDERED: ONDANSETRON 4 MG OD TAB PO PRN (00:44)
[2019-01-07] MEDS ORDERED: MODERATE STRESS LEVEL ONE (00:44)
[2019-01-07] MEDS ORDERED: INSULIN REGULAR 250 UNITS in SODIUM CHLORIDE 0.9% 247.5 ML IV SCH (00:44)
[2019-01-07] MEDS: NSS + 20MEQ KCL 20 MEQ/1,000 ML BAG IV SCH ×2 (01:23→06:16)
[2019-01-07] MEDS: POTASSIUM CHLORIDE / WTR 10 MEQ/100 ML PLCT IV SCH ×6 (01:34→11:20)
[2019-01-07 02:48] LABS: BUN Creatinine Ratio 3.6 (10-20); Calcium 9.8 mg/dl (8.5-10.1); Est GFR (African American) 59.2; Est GFR (Non-African American) 51.1; Magnesium 2.3 mg/dl (1.8-2.4); Phosphorus 1.6 mg/dl (2.5-4.9); Potassium 2.8 mmol/L (3.5-5.1)
[2019-01-07] MEDS ORDERED: HEPARIN SOD 5,000 UNIT/0.5 ML VIAL SQ SCH (06:00)
[2019-01-07] MEDS ORDERED: D5W AND 1/2NSS + 20MEQ KCL 20 MEQ/1,000 ML BAG IV SCH (06:15)
[2019-01-07] MEDS ORDERED: POTASSIUM CHLORIDE 20 MEQ TABCR PO ONE (06:15)
--- NOTE | 2019-01-07 06:22 | Emergency Department Note ---
Entered by Lynette Toro acting as a scribe for Darryl Sin MD ED Provider Note Name: Elza Vick Age: 48 F Arrives Via: EMS Informant: The patient CC: Hyperglycemia HPI: A 48 year old female arrives for evaluation of persistent hyperglycemia starting 4 days ago. The patient reports that she is extremely thirsty and has been urinating more than usual. She states that she feels very tired and has lost her appetite. She notes that she is dizzy and was scared to drive to the ED today so she called EMS. She reports that EMS took her blood sugar [employer] RUG CLEANER and that the glucometer read high. She states that she received no other treatments [employer] CLE[employer]ER. She notes that she has a family history of diabetes but that she has not been diagnosed with it. She adds that she regularly takes Xarelto for Pulmonary Emboli she has had in the past. She denies chest pain, shortness of breath and fever. ROS: See above HPI for pertinent positives & negatives. A total of 10 systems reviewed and were otherwise negative. Past Medical History: HTN, Brain cyst, COPD, Anxiety, Depression, PE. Past Surgical History: Cholecystectomy, Hernia repair. Family History: Diabetes, Obesity. Social History: Lives alone. Feels safe at home. Former smoker. Home Medications: heath HFA 2 puff INH, Cyclobenaprine 10 mg PO, Voltaren 4 g EXT, Doxepin 200 mg PO, Fluoxetine 20 mg PO, Gabapentin 1200 mg PO, Ondansetron HCl 4 mg PO, Rivaroxaban 20 mg PO, Bactrim DS 160 mg PO, Sumatriptan succinate 25 mg PO. Allergies Levofloxacin Physical: Vitals: BP: 151/89, Pulse: 96, Resp: 20, Temp: 98.8F, O2 Sat: 99, Delivery: Room Air Exam: GENERAL: Patient is unwell appearing and in mild distress. EYES: No scleral icterus, unremarkable pupils. ENT: Dry, cracked mucous membranes. No nasal congestion. NECK: No masses appreciated, no meningismus, trachea is midline. RESPIRATORY: No dyspnea. Clear to auscultation and equal bilaterally. No wheeze, no rhonchi. CARDIOVASCULAR: Tachycardic rate. Regular rhythm. No murmurs, rubs, gallops appreciated. GASTROINTESTINAL: Abdomen soft, non-tender, no peritonitis. Bowel sounds positive. No masses appreciated. BACK: No midline tenderness, no CVA tenderness EXTREMITIES: Normal motion all extremities, no cyanosis, no edema. NEUROLOGIC: Alert and oriented, no acute motor or sensory deficits, no focal weakness, cranial nerves grossly intact. SKIN: No rash, no jaundice, no diaphoresis. Poor skin turgor. ED Course: 2305: Prior Medical Record, Triage/Nursing Notes, Medications, Allergies reviewed by Me. Past medical records reviewed. The patient was evaluated in room C12A, and a complete history and physical examination were performed. 0000: I reviewed the patient's case with Dr. Bentley - [facility] [place] [facility] hospitalist. He will evaluate the patient for further management. Vital Signs: reviewed and remarkable for tachycardia Labs: Reviewed and remarkable for hyperglycemia, elevated lactate Interventions: Saline Lock, NSS bolus, Insulin drip, Acetaminophen 1 G IV Imaging: X ray results are stated below per my interpretation: Chest: 1 view: No infiltrate, no effusion, Cardiomegaly EKG: Per My Interpreation: Sinus tach 111 without ectopy. Consults: Dr Bentley for further evaluation Blood pressure: Normal. No Referral necessary Disposition: Hospitalization Differentials: Include hyperglycemia NOS, infectious etiology, dietary indigestion, renal failure, dehydration, electrolyte abnormality, liver failure, cardiac ischemia amongst other pathologies. Medical Decision Makin yr old female with complex past medical history including gestational diabetes though no recent blood sugar issues. Right axilla infection last week with resolution of that after abx. She is now severely hyperglycemic with mild acidosis. This is most likely HHNK set off by recent infection. Does not appear infected currently. WBC OK and not febrile. Lactate is quite elevated though I suspect this is due to level of dehydration. She was urgently started on fluid resus as well as insulin drip given level of hyperglycemia. She is stable, no headache, breathing comfortably. CXR with enlarged heart but no acute congestive findings by exam and she is clearly dehydrated. Hospitalist in to evaluate further. Impression: Acute Hyperglycemia Acute Dehydration Acidosis, lactic Acute kidney injury Critical Care Time: I have personally spent greater than 35 minutes of critical care time in the direct management of this patient. Acute hyperglycemia with severe dehydration requiring IV drip insulin. This was a life/limb threatening event. This includes time spent evaluating patient, direct bedside care, chart review, placing orders, interpretation of diagnostic studies, discussion with consultants, patient, and family members, as well as other required patient management activities. This 35 minutes is in excess of all separately billable procedures. Darryl Sin MD The scribe's documentation has been prepared under my direction and personally reviewed by me in its entirety. I confirm that the note above accurately r eflects all work, treatment, procedures, and medical decision making performed by me. Impression & Plan Acute hyperglycemia, Acute dehydration, Acidosis, lactic, Acute kidney injury Past Med/Surg History Medical History Hypertension (Chronic) Anxiety Brain cyst Chronic obstructive pulmonary disease Depression Hypertension Obesity Pulmonary embolism Surgical History History of laparoscopic cholecystectomy S/P laparoscopic hernia repair Family History Other Diabetes Obesity Social History Preferred Language: Setswana Communication Ability: Effective Radio Station Manager Required: No Beliefs That Will Affect Care: None marital status: Current Living Situation: Alone Current Living Situation Comment: pt lives in 2 story [facility] Other Information That Helps Us Care for You: No Feels Safe at Home: Yes Safety Concerns: Feels Safe At This Time Smoking Status: Former smoker Hx Alcohol Use: No Hx Substance Use: No Results & Data Vital Signs Vital Signs - 24 hr 01/06/19 21:42 01/06/19 23:14 01/07/19 00:11 Temperature 37.6 C H 37.1 C Temperature Source Oral Oral Sepsis Recent Fever Within 48 Hours No Sepsis Action Taken by Nursing No Action Required Pulse Rate 109 H Pulse Rate [Finger] 104 H 96 H Pulse Rhythm [Finger] Pulse Strength [Finger] Respiratory Rate 24 20 20 Respiratory Effort / Characteristics Non-Labored Non-Labored Respiratory Depth Shallow Normal Respiratory Pattern Blood Pressure 124/85 Blood Pressure [Left Arm] 157/80 H 151/89 H Blood Pressure Mean 98 Blood Pressure Mean [Left Arm] 105 109 Blood Pressure Position [Left Arm] Pulse Oximetry 97 98 99 Oxygen Delivery Method Room Air Room Air Room Air 01/07/19 00:42 01/07/19 01:44 01/07/19 03:55 Temperature 36.7 C 37.1 C Temperature Source Oral Oral Sepsis Recent Fever Within 48 Hours Sepsis Action Taken by Nursing Pulse Rate 104 H Pulse Rate [Finger] 104 H 101 H Pulse Rhythm [Finger] Regular Pulse Strength [Finger] Normal Respiratory Rate 20 19 Respiratory Effort / Characteristics Non-Labored Spontaneous Respiratory Depth Normal Respiratory Pattern Regular Blood Pressure Blood Pressure [Left Arm] 124/86 134/83 Blood Pressure Mean Blood Pressure Mean [Left Arm] 98 100 Blood Pressure Position [Left Arm] Lying Lying Pulse Oximetry 98 96 Oxygen Delivery Method Room Air Room Air Home Medications Current Medication List: was personally reviewed by me Laboratory Data Attestation: I reviewed the patient's lab results. Result diagrams: 01/06/19 22:00 01/07/19 01:14 Lab Results 01/06/19 01/06/19 01/06/19 Range/Units 22:00 22:00 22:00 WBC 8.05 (4.8-10.8) K/uL RBC 4.73 (4.2-5.4) M/uL Hgb 14.7 (12.0-16.0) g/dL Hct 43.5 (37-47) % MCV 92.0 (80-100) fL MCH 31.1 (25-34) pg MCHC 33.8 (32-36) g/dL Plt Count 116 L (130-400) K/uL Immature Gran % (Auto) 0.2 % Neut % (Auto) 76.0 % Lymph % (Auto) 13.8 % [place] % (Auto) 9.3 % Eos % (Auto) 0.5 % Baso % (Auto) 0.2 % Immature Gran # (Auto) 0.02 (0.00-0.02) K/uL Neut # (Auto) 6.11 (1.4-6.5) K/uL Lymph # (Auto) 1.11 L (1.2-3.4) K/uL [place] # (Auto) 0.75 H (0.11-0.59) K/uL Eos # (Auto) 0.04 (0-0.5) K/uL Baso # (Auto) 0.02 (0-0.2) K/uL RBC Morphology Unremarkable ABG pH (7.35-7.45) ABG pCO2 (35-46) mmHg ABG pO2 (80-95) mm/Hg ABG HCO3 (19-24) mmol/L ABG O2 Saturation (90-95) % ABG Base Excess (-9-1.8) mEq/L Reed Test (Pos) Barometric Pressure mm/Hg Oxygen Given Sodium 131 L (136-145) mmol/L Potassium 3.0 L (3.5-5.1) mmol/L Chloride 97 L (98-107) mmol/L Carbon Dioxide 18 L (21-32) mmol/L Anion Gap 16.0 H (3-11) BUN 5 L (7-18) mg/dl Creatinine 1.64 H D (0.6-1.2) mg/dl Est Cr Clr Drug Dosing 54.5 ml/min Est GFR ( Amer) 41.8 Est GFR (Non-Af Amer) 36.1 BUN/Creatinine Ratio 3.0 L (10-20) Glucose 1088 H* (70-99) mg/dl POC Glucose (70-99) Lactate (0.4-2.0) mmol/L Calcium 9.8 (8.5-10.1) mg/dl Phosphorus (2.5-4.9) mg/dl Magnesium 2.4 (1.8-2.4) mg/dl Total Bilirubin 0.9 (0.2-1) mg/dl AST 19 (15-37) U/L ALT 35 (12-78) U/L Alkaline Phosphatase 227 H (45-117) U/L Troponin I < 0.015 (0-0.045) ng/ml Total Protein 8.4 H (6.4-8.2) gm/dl Albumin 3.5 (3.4-5.0) gm/dl Globulin 4.9 H (2.5-4.0) gm/dl Albumin/Globulin Ratio 0.7 L (0.9-2) Beta-Hydroxybutyric Acd 2.28 (0.2-2.81) mg/dl TSH 0.531 (0.300-4.500) uIu/ml Urine Color Yellow Urine Appearance Clear (Clear) Urine pH 5.0 (4.5-7.5) Ur Specific [place] 1.036 H (1.000-1.030) Urine Protein Negative (Negative) Urine Glucose (UA) 3+ H (Negative) Urine Ketones Negative (Negative) Urine Blood 1+ H (Negative) Urine Nitrite Negative (Negative) Urine Bilirubin Negative (Negative) Urine Urobilinogen Negative (Negative) Ur Leukocyte Esterase Negative (Negative) Urine WBC (Auto) 1-5 (0-5) /hpf Urine RBC (Auto) 0-4 (0-4) /hpf U Hyaline Cast (Auto) 0 (0-5) /lpf U Epithel Cells (Auto) 10-20 H (0-5) /lpf Urine Bacteria (Auto) Negative (Negative) Urine Yeast Budding H (None Prsent) 01/06/19 01/06/19 01/06/19 Range/Units 22:03 23:45 23:45 WBC (4.8-10.8) K/uL RBC (4.2-5.4) M/uL Hgb (12.0-16.0) g/dL Hct (37-47) % MCV (80-100) fL MCH (25-34) pg MCHC (32-36) g/dL Plt Count (130-400) K/uL Immature Gran % (Auto) % Neut % (Auto) % Lymph % (Auto) % [place] % (Auto) % Eos % (Auto) % Baso % (Auto) % Immature Gran # (Auto) (0.00-0.02) K/uL Neut # (Auto) (1.4-6.5) K/uL Lymph # (Auto) (1.2-3.4) K/uL [place] # (Auto) (0.11-0.59) K/uL Eos # (Auto) (0-0.5) K/uL Baso # (Auto) (0-0.2) K/uL RBC Morphology ABG pH 7.45 (7.35-7.45) ABG pCO2 29 L (35-46) mmHg ABG pO2 76 L (80-95) mm/Hg ABG HCO3 20 (19-24) mmol/L ABG O2 Saturation 96.0 H (90-95) % ABG Base Excess -2.6 (-9-1.8) mEq/L Reed Test POS (Pos) Barometric Pressure 721.7 mm/Hg Oxygen Given RA Sodium (136-145) mmol/L Potassium (3.5-5.1) mmol/L Chloride (98-107) mmol/L Carbon Dioxide (21-32) mmol/L Anion Gap (3-11) BUN (7-18) mg/dl Creatinine (0.6-1.2) mg/dl Est Cr Clr Drug Dosing ml/min Est GFR ( Amer) Est GFR (Non-Af Amer) BUN/Creatinine Ratio (10-20) Glucose (70-99) mg/dl POC Glucose > 600 H* (70-99) Lactate 4.9 H* (0.4-2.0) mmol/L Calcium (8.5-10.1) mg/dl Phosphorus (2.5-4.9) mg/dl Magnesium (1.8-2.4) mg/dl Total Bilirubin (0.2-1) mg/dl AST (15-37) U/L ALT (12-78) U/L Alkaline Phosphatase (45-117) U/L Troponin I (0-0.045) ng/ml Total Protein (6.4-8.2) gm/dl Albumin (3.4-5.0) gm/dl Globulin (2.5-4.0) gm/dl Albumin/Globulin Ratio (0.9-2) Beta-Hydroxybutyric Acd (0.2-2.81) mg/dl TSH (0.300-4.500) uIu/ml Urine Color Urine Appearance (Clear) Urine pH (4.5-7.5) Ur Specific [place] (1.000-1.030) Urine Protein (Negative) Urine Glucose (UA) (Negative) Urine Ketones (Negative) Urine Blood (Negative) Urine Nitrite (Negative) Urine Bilirubin (Negative) Urine Urobilinogen (Negative) Ur Leukocyte Esterase (Negative) Urine WBC (Auto) (0-5) /hpf Urine RBC (Auto) (0-4) /hpf U Hyaline Cast (Auto) (0-5) /lpf U Epithel Cells (Auto) (0-5) /lpf Urine Bacteria (Auto) (Negative) Urine Yeast (None Prsent) 01/07/19 01/07/19 01/07/19 Range/Units 01:12 01:14 01:14 WBC (4.8-10.8) K/uL RBC (4.2-5.4) M/uL Hgb (12.0-16.0) g/dL Hct (37-47) % MCV (80-100) fL MCH (25-34) pg MCHC (32-36) g/dL Plt Count (130-400) K/uL Immature Gran % (Auto) % Neut % (Auto) % Lymph % (Auto) % [place] % (Auto) % Eos % (Auto) % Baso % (Auto) % Immature Gran # (Auto) (0.00-0.02) K/uL Neut # (Auto) (1.4-6.5) K/uL Lymph # (Auto) (1.2-3.4) K/uL [place] # (Auto) (0.11-0.59) K/uL Eos # (Auto) (0-0.5) K/uL Baso # (Auto) (0-0.2) K/uL RBC Morphology ABG pH (7.35-7.45) ABG pCO2 (35-46) mmHg ABG pO2 (80-95) mm/Hg ABG HCO3 (19-24) mmol/L ABG O2 Saturation (90-95) % ABG Base Excess (-9-1.8) mEq/L Reed Test (Pos) Barometric Pressure mm/Hg Oxygen Given Sodium 137 (136-145) mmol/L Potassium 2.8 L (3.5-5.1) mmol/L Chloride 104 (98-107) mmol/L Carbon Dioxide 23 (21-32) mmol/L Anion Gap 10.0 (3-11) BUN 4 L (7-18) mg/dl Creatinine 1.23 H D (0.6-1.2) mg/dl Est Cr Clr Drug Dosing 73.0 ml/min Est GFR ( Amer) 59.2 Est GFR (Non-Af Amer) 51.1 BUN/Creatinine Ratio 3.6 L (10-20) Glucose 713 H* Cancelled (70-99) mg/dl POC Glucose > 600 H* (70-99) Lactate (0.4-2.0) mmol/L Calcium 9.8 (8.5-10.1) mg/dl Phosphorus 1.6 L (2.5-4.9) mg/dl Magnesium 2.3 (1.8-2.4) mg/dl Total Bilirubin (0.2-1) mg/dl AST (15-37) U/L ALT (12-78) U/L Alkaline Phosphatase (45-117) U/L Troponin I (0-0.045) ng/ml Total Protein (6.4-8.2) gm/dl Albumin (3.4-5.0) gm/dl Globulin (2.5-4.0) gm/dl Albumin/Globulin Ratio (0.9-2) Beta-Hydroxybutyric Acd (0.2-2.81) mg/dl TSH (0.300-4.500) uIu/ml Urine Color Urine Appearance (Clear) Urine pH (4.5-7.5) Ur Specific [place] (1.000-1.030) Urine Protein (Negative) Urine Glucose (UA) (Negative) Urine Ketones (Negative) Urine Blood (Negative) Urine Nitrite (Negative) Urine Bilirubin (Negative) Urine Urobilinogen (Negative) Ur Leukocyte Esterase (Negative) Urine WBC (Auto) (0-5) /hpf Urine RBC (Auto) (0-4) /hpf U Hyaline Cast (Auto) (0-5) /lpf U Epithel Cells (Auto) (0-5) /lpf Urine Bacteria (Auto) (Negative) Urine Yeast (None Prsent) 01/07/19 01/07/19 01/07/19 Range/Units 02:50 03:52 04:50 WBC (4.8-10.8) K/uL RBC (4.2-5.4) M/uL Hgb (12.0-16.0) g/dL Hct (37-47) % MCV (80-100) fL MCH (25-34) pg MCHC (32-36) g/dL Plt Count (130-400) K/uL Immature Gran % (Auto) % Neut % (Auto) % Lymph % (Auto) % [place] % (Auto) % Eos % (Auto) % Baso % (Auto) % Immature Gran # (Auto) (0.00-0.02) K/uL Neut # (Auto) (1.4-6.5) K/uL Lymph # (Auto) (1.2-3.4) K/uL [place] # (Auto) (0.11-0.59) K/uL Eos # (Auto) (0-0.5) K/uL Baso # (Auto) (0-0.2) K/uL RBC Morphology ABG pH (7.35-7.45) ABG pCO2 (35-46) mmHg ABG pO2 (80-95) mm/Hg ABG HCO3 (19-24) mmol/L ABG O2 Saturation (90-95) % ABG Base Excess (-9-1.8) mEq/L Reed Test (Pos) Barometric Pressure mm/Hg Oxygen Given Sodium (136-145) mmol/L Potassium (3.5-5.1) mmol/L Chloride (98-107) mmol/L Carbon Dioxide (21-32) mmol/L Anion Gap (3-11) BUN (7-18) mg/dl Creatinine (0.6-1.2) mg/dl Est Cr Clr Drug Dosing ml/min Est GFR ( Amer) Est GFR (Non-Af Amer) BUN/Creatinine Ratio (10-20) Glucose (70-99) mg/dl POC Glucose 463 H* 420 H* 372 H* (70-99) Lactate (0.4-2.0) mmol/L Calcium (8.5-10.1) mg/dl Phosphorus (2.5-4.9) mg/dl Magnesium (1.8-2.4) mg/dl Total Bilirubin (0.2-1) mg/dl AST (15-37) U/L ALT (12-78) U/L Alkaline Phosphatase (45-117) U/L Troponin I (0-0.045) ng/ml Total Protein (6.4-8.2) gm/dl Albumin (3.4-5.0) gm/dl Globulin (2.5-4.0) gm/dl Albumin/Globulin Ratio (0.9-2) Beta-Hydroxybutyric Acd (0.2-2.81) mg/dl TSH (0.300-4.500) uIu/ml Urine Color Urine Appearance (Clear) Urine pH (4.5-7.5) Ur Specific [place] (1.000-1.030) Urine Protein (Negative) Urine Glucose (UA) (Negative) Urine Ketones (Negative) Urine Blood (Negative) Urine Nitrite (Negative) Urine Bilirubin (Negative) Urine Urobilinogen (Negative) Ur Leukocyte Esterase (Negative) Urine WBC (Auto) (0-5) /hpf Urine RBC (Auto) (0-4) /hpf U Hyaline Cast (Auto) (0-5) /lpf U Epithel Cells (Auto) (0-5) /lpf Urine Bacteria (Auto) (Negative) Urine Yeast (None Prsent) 01/07/19 Range/Units 05:49 WBC (4.8-10.8) K/uL RBC (4.2-5.4) M/uL Hgb (12.0-16.0) g/dL Hct (37-47) % MCV (80-100) fL MCH (25-34) pg MCHC (32-36) g/dL Plt Count (130-400) K/uL Immature Gran % (Auto) % Neut % (Auto) % Lymph % (Auto) % [place] % (Auto) % Eos % (Auto) % Baso % (Auto) % Immature Gran # (Auto) (0.00-0.02) K/uL Neut # (Auto) (1.4-6.5) K/uL Lymph # (Auto) (1.2-3.4) K/uL [place] # (Auto) (0.11-0.59) K/uL Eos # (Auto) (0-0.5) K/uL Baso # (Auto) (0-0.2) K/uL RBC Morphology ABG pH (7.35-7.45) ABG pCO2 (35-46) mmHg ABG pO2 (80-95) mm/Hg ABG HCO3 (19-24) mmol/L ABG O2 Saturation (90-95) % ABG Base Excess (-9-1.8) mEq/L Reed Test (Pos) Barometric Pressure mm/Hg Oxygen Given Sodium (136-145) mmol/L Potassium (3.5-5.1) mmol/L Chloride (98-107) mmol/L Carbon Dioxide (21-32) mmol/L Anion Gap (3-11) BUN (7-18) mg/dl Creatinine (0.6-1.2) mg/dl Est Cr Clr Drug Dosing ml/min Est GFR ( Amer) Est GFR (Non-Af Amer) BUN/Creatinine Ratio (10-20) Glucose (70-99) mg/dl POC Glucose 343 H (70-99) Lactate (0.4-2.0) mmol/L Calcium (8.5-10.1) mg/dl Phosphorus (2.5-4.9) mg/dl Magnesium (1.8-2.4) mg/dl Total Bilirubin (0.2-1) mg/dl AST (15-37) U/L ALT (12-78) U/L Alkaline Phosphatase (45-117) U/L Troponin I (0-0.045) ng/ml Total Protein (6.4-8.2) gm/dl Albumin (3.4-5.0) gm/dl Globulin (2.5-4.0) gm/dl Albumin/Globulin Ratio (0.9-2) Beta-Hydroxybutyric Acd (0.2-2.81) mg/dl TSH (0.300-4.500) uIu/ml Urine Color Urine Appearance (Clear) Urine pH (4.5-7.5) Ur Specific [place] (1.000-1.030) Urine Protein (Negative) Urine Glucose (UA) (Negative) Urine Ketones (Negative) Urine Blood (Negative) Urine Nitrite (Negative) Urine Bilirubin (Negative) Urine Urobilinogen (Negative) Ur Leukocyte Esterase (Negative) Urine WBC (Auto) (0-5) /hpf Urine RBC (Auto) (0-4) /hpf U Hyaline Cast (Auto) (0-5) /lpf U Epithel Cells (Auto) (0-5) /lpf Urine Bacteria (Auto) (Negative) Urine Yeast (None Prsent) Administered Medications Cyclobenzaprine HCl (Flexeril) 10 mg PO BID PRN PRN Reason: Muscle Spasm Stop: 02/06/19 00:43 Last Admin: 01/07/19 02:26 Dose: 10 mg Documented by: [id number] Insulin Human Regular 250 (units/ Sodium Chloride) 250 mls @ 2.8 mls/hr IV .Q24H YEN; Protocol Stop: 02/05/19 23:14 Last Admin: 01/07/19 00:07 Dose: 2.8 units/hr, 2.8 mls/hr Documented by: [id number] Cosigned by: [id number] Potassium Chloride/Dextrose/Sod Cl (D5w And 1/2nss + 20meq Kcl) 20 meq in 1,000 mls @ 200 mls/hr IV .Q5H YEN Stop: 02/06/19 06:14 Last Admin: 01/07/19 06:15 Dose: 200 mls/hr Documented by: [id number] Discontinued Medications Sodium Chloride (Nss 1000ml) 1,000 mls @ 999 mls/hr IV .Q1H1M ONE Stop: 01/07/19 00:10 Last Infusion: 01/07/19 00:20 Dose: 0 mls/hr Documented by: [id number] Admin: 01/06/19 23:16 Dose: 999 mls/hr Documented by: [id number] Acetaminophen (Ofirmev) 1,000 mg in 100 mls @ 400 mls/hr IV NOW STA Stop: 01/06/19 23:51 Last Infusion: 01/07/19 00:20 Dose: 0 mls/hr Documented by: [id number] Admin: 01/06/19 23:59 Dose: 400 mls/hr Documented by: [id number] Potassium Chloride/Sodium Chloride (Normal Saline W/20 Meq Kcl) 20 meq in 1,000 mls @ 200 mls/hr IV .Q5H YEN Stop: 01/07/19 10:43 Last Infusion: 01/07/19 06:16 Dose: 0 mls/hr Documented by: [id number] Admin: 01/07/19 01:23 Dose: 200 mls/hr Documented by: [id number] Potassium Chloride (K Kyle / Wtr) 10 meq in 100 mls @ 100 mls/hr IV Q1H YEN Stop: 01/07/19 02:43 Last Infusion: 01/07/19 03:55 Dose: 0 mls/hr Documented by: [id number] Admin: 01/07/19 02:44 Dose: 100 mls/hr Documented by: [id number] Infusion: 01/07/19 02:44 Dose: 0 mls/hr Documented by: [id number] Admin: 01/07/19 01:34 Dose: 100 mls/hr Documented by: [id number] Insulin Human Regular (Novolin R Bolus From Bag) 3 units IV ONE ONE Stop: 01/06/19 23:46 Last Admin: 01/07/19 00:08 Dose: 3 units Documented by: [id number] Cosigned by: [id number] Miscellaneous (Insulin Protocol Hhs Goal Range) 1 ea N/A ONE ONE Stop: 01/06/19 23:12 Last Admin: 01/07/19 00:10 Dose: Not Given Documented by: [id number] Miscellaneous (Insulin Protocol Moderate Stress Level) 1 ea N/A ONE ONE Stop: 01/06/19 23:12 Last Admin: 01/07/19 00:10 Dose: Not Given Documented by: [id number] Potassium Chloride (Klor-Con M20) 40 meq PO NOW STA Stop: 01/07/19 00:45 Last Admin: 01/07/19 01:24 Dose: 40 meq Documented by: [id number] Imaging Data Attestation: I personally reviewed and interpreted this imaging study as follows: ECG Data Attestation: I personally reviewed and interpreted this ECG as follows: Blood Pressure Blood Pressure Findings: Elevated blood pressure Blood Pressure Disposition: further management by hospitalist Discharge Plan Visit Data *Final* Discharge Date/Time: 01/07/19 00:29 Chief Complaint: Hyperglycemia ED Provider: Darryl Sin Discharge Problem: Acute hyperglycemia, Acute dehydration, Acidosis, lactic, Acute kidney injury Patient Disposition: Admitted As Inpatient Discharge Instructions Interventions: ED Discharge Assessment Last Done: 01/07/19 00:29 The scribe's documentation has been prepared under my direction and personally reviewed by me in its entirety. I confirm that the note above accurately reflects all work, treatment, procedures, and medical decision making performed by me.
--- NOTE | 2019-01-07 07:35 | XRay Report ---
XR chest 1V portable HISTORY: 48 years-old Female hyperglycemia acutely elevated blood sugar COMPARISON: Chest CT 09/25/2018, chest radiograph 08/25/2018 TECHNIQUE: Portable AP view of the chest FINDINGS: Cardiac silhouette is enlarged, unchanged. No pneumothorax, pleural effusion, focal airspace consolid ation or overt pulmonary edema. Degenerative changes of the shoulders and spine. IMPRESSION: No acute process. The above report was generated using voice recognition software. It may contain grammatical, syntax o r spelling errors. Electronically signed by: Marino Arreola M.D. 01/07/2019 7:34 AM
[2019-01-07 07:53] LABS: BUN Creatinine Ratio 3.8 (10-20); Calcium 9.4 mg/dl (8.5-10.1); Creatinine Clr Calc Pharmacy 100.8 ml/min; Est GFR (African American) 87.6; Est GFR (Non-African American) 75.6; Magnesium 2.3 mg/dl (1.8-2.4); Potassium 3.3 mmol/L (3.5-5.1)
[2019-01-07] MEDS ORDERED: INSULIN ASPART 100 UNITS/ML 3 ML PEN SC SCH (09:00)
[2019-01-07] MEDS ORDERED: FLUOXETINE HCL 20 MG CAP PO SCH (09:00)
--- NOTE | 2019-01-07 09:03 | Hospitalist Progress Note ---
Date of Service January 07, 2019 Assessment & Plan (1) Hyperglycemia: 48 y/o F Hx HTN, history of PE on chronic Xarelto, morbid obesity, depression, migraines, recent admission for abdominal cellulitis/abscess and for lower extremity weakness possibly due to lumbar stenosis, deconditioning and obesity. Prehospital she was being treated with Keflex for an abscess in the R axilla. The pt states that she developed polydipsia and polyuria over the past several days. She claims have a 45 pound weight loss i in the ER her initial labs demonstrated a glucose of 1088 and hypokalemia. She did not have an anion gap or ketones. Diabetes with high glucose [id number] we are tapering her off her insulin drip. Transitioning to basal bolus of change IV fluids to 1/2 nss DM education, nutrition consultation and endocrine f/u. Hypokalemia/hypophosphatemia- replete follow mag Axillary abscess - appears to be resolving - cont Keflex Depression -patient no longer taking fluoxetine DVT prophylaxis and Hx PE - cont Xarelto Full code - Xarelto prophylaxis Subjective Patient says she overall feels better still having some right shoulder pain. We discussed her glucose and she said at one point in time during her she has some glucose intolerance. She states that her family member had been diabetic and also 1 of her pets and she understands insulin use slightly. She is open to being on basal bolus insulin will begin teaching her at this point time transitioning from insulin drip on 331 2 basal bolus Review of Systems ROS: well nourished well developed. No double vision blurry vision No problems with speech or swallowing No palpitations, chest pain or pressure No Wheezing or breathing issues No abdominal pain nausea vomiting diarrhea changes in appetite or weight No burning urine urine frequency or changes in color Some posterior right shoulder pain especially with palpation and movement She has a healing axillary cellulitis that was treated prehospital with antibiotics No unusual bruising or bleeding No focused back pain or numbness or loss of strength No changes in memory or confusion Physical Exam Vital Signs (Past 24 Hours): Last Vital Signs Temp 36.5 C 01/07/19 07:48 Pulse 89 01/07/19 07:48 Resp 18 01/07/19 07:48 BP 125/79 01/07/19 07:48 Pulse Ox 96 01/07/19 07:48 The patient appeared well nourished and normally developed. Vital signs as documented. Head exam is unremarkable. normocephalic, atraumatic Neck is without jugular venous distension, thyromegaly, or lymphademopathy Lungs are clear to auscultation and percussion. Cardiac exam reveals Rhythm is regular. First and second heart sounds normal. Abdominal exam reveals normal bowel sounds, no masses, no organomegaly Extremities are nonedematous she is tenderness to the right supraspinatus to palpation and also external rotation. No other shoulder laxity or point tenderness Neurologic exam is A&Ox3, no focal deficits, strength is equal bilateral Psychologically seems neither anxious or depressed Skin is warm Dry
[2019-01-07] MEDS: SODIUM CHLORIDE 0.45 % 1,000 ML IV SCH ×2 (09:19→17:10)
[2019-01-07] MEDS: cephALEXin 500 MG CAP PO SCH ×4 (09:35→20:23)
[2019-01-07] MEDS: GABAPENTIN 600 MG TAB PO SCH ×3 (09:36→20:23)
[2019-01-07] MEDS: INSULIN ASPART 100 UNITS/ML 3 ML PEN SC SCH ×4 (10:34→20:25)
[2019-01-07] MEDS ORDERED: DEXTROSE 50% 50 ML SYRINGE IV PRN ×2 (12:30→13:01)
[2019-01-07] MEDS ORDERED: GLUCOSE 40% GEL 15 GM TUBE PO PRN ×2 (12:30→13:01)
[2019-01-07] MEDS ORDERED: CARBOHYDRATES FOR HYPOGLYCEMIA PO PRN ×2 (12:30→13:01)
[2019-01-07] MEDS ORDERED: GLUCOSE 10 TABS/TUBE PO PRN ×2 (12:30→13:01)
[2019-01-07] MEDS ORDERED: GLUCAGON FOR INJ 1 MG VIAL IM PRN (12:30)
[2019-01-07] MEDS ORDERED: GLUCAGON FOR INJ 1 MG VIAL SQ PRN (13:01)
[2019-01-07] MEDS ORDERED: INSULIN GLARGINE SOLOSTAR 100 UNITS/ML 3 ML PEN SC STA (13:06)
[2019-01-07] MEDS ORDERED: POTASSIUM PHOS 3 MMOL/1 ML INFUSION IV STA (13:34)
[2019-01-07 13:44] LABS: BUN Creatinine Ratio 3.5 (10-20); Calcium 8.6 mg/dl (8.5-10.1); Creatinine Clr Calc Pharmacy 119.7 ml/min; Est GFR (African American) 107.7; Est GFR (Non-African American) 92.9; Potassium 3.7 mmol/L (3.5-5.1)
[2019-01-07] MEDS ORDERED: POTASSIUM PHOSPHATE 21 MMOL in SODIUM CHLORIDE 0.9% 500 ML IV ONE (13:45)
[2019-01-07] MEDS ORDERED: MICONAZOLE NITRATE POWDER 43 GM EXT PRN (16:55)
[2019-01-07] MEDS ORDERED: FLUCONAZOLE 50 MG TAB PO ONE (17:30)
[2019-01-07] MEDS: LIDOCAINE 5% 1 PATCH TD SCH (17:54)
[2019-01-07] MEDS: OXYCODONE HCL IR 5 MG TAB (IMMEDIATE RELEASE) PO PRN (17:56)
[2019-01-07] MEDS: INSULIN GLARGINE SOLOSTAR 100 UNITS/ML 3 ML PEN SC SCH (20:26)
[2019-01-07] MEDS ORDERED: ACETAMINOPHEN 325 MG TAB PO PRN (22:16)
[2019-01-08] MEDS: DOXEPIN HCL 50 MG CAPSULE PO SCH ×2 (00:03→20:58)
[2019-01-08] MEDS: SODIUM CHLORIDE 0.45 % 1,000 ML IV SCH ×2 (01:07→08:32)
[2019-01-08] MEDS: cephALEXin 500 MG CAP PO SCH ×4 (08:25→20:58)
[2019-01-08] MEDS: GABAPENTIN 600 MG TAB PO SCH ×3 (08:25→20:57)
[2019-01-08] MEDS: LIDOCAINE 5% 1 PATCH TD SCH (08:26)
[2019-01-08] MEDS: INSULIN ASPART 100 UNITS/ML 3 ML PEN SC SCH ×4 (08:31→20:53)
[2019-01-08] MEDS: INSULIN GLARGINE SOLOSTAR 100 UNITS/ML 3 ML PEN SC SCH (08:32)
[2019-01-08] MEDS: OXYCODONE HCL IR 5 MG TAB (IMMEDIATE RELEASE) PO PRN ×2 (08:35→16:14)
[2019-01-08 09:55] LABS: BUN Creatinine Ratio 4.5 (10-20); Calcium 8.5 mg/dl (8.5-10.1); Creatinine Clr Calc Pharmacy 126.4 ml/min; Est GFR (African American) 115.1; Est GFR (Non-African American) 99.3; Potassium 3.6 mmol/L (3.5-5.1)
--- NOTE | 2019-01-08 15:49 | Hospitalist Progress Note ---
Date of Service January 08, 2019 Assessment & Plan (1) Diabetic hyperosmolar non-ketotic state: presented with hyperglycemia, glucose > 1000 on admission no signs of acidosis responded well to insulin infusion transitioned to Lantus 10mg BID and Novolog stop IV fluids today, she is well hydrated will increase Lantus to 20mg BID, continue Novolog start Metformin 500mg BID diabetic diet para educator met with patient for extended visit today (2) Diabetes: new diagnosis, suspected type II since she did not have DKA check HbA1c (3) Hyperglycemia: see above (4) Cellulitis of axilla, right: small abscess improving, nearly resolved on Keflex (5) Opioid abuse: pain controlled currently Subjective patient feeling a lot better with better glucose control eating well, moving bowels making a lot of urine with IV fluids, will stop them says that she thinks she was developing DM for some time, I would agree reviewed labs, sugars down to 300-350 range discussed increasing basal insulin from 10 BID to 20 BID starting tonight she says that she feels fine starting on Insulin as outpatient, no concerns about it her cellulitis is much better she is hoping to go home in two days reviewed labs Review of Systems All systems reviewed & are unremarkable except as noted in HPI & below Constitutional: + fatigue Respiratory: no cough and no dyspnea Cardiovascular: no chest pain Gastrointestinal: no abdominal pain, no nausea, no vomiting, no constipation and no diarrhea/loose stools Endocrine: + polyuria (much improved) Physical Exam Vital Signs (Past 24 Hours): Last Vital Signs Temp 36.3 C L 01/08/19 15:31 Pulse 89 01/08/19 15:31 Resp 22 01/08/19 15:31 BP 136/84 01/08/19 15:31 Pulse Ox 97 01/08/19 15:31 Constitutional: WD/WN, vitals as above + obese Eyes: PERRL, conjunctivae normal, anicteric sclerae ENMT: external ear and nose normal, oropharynx normal Neck: trachea midline, no thyromegaly Respiratory: normal respiratory effort, lungs clear to auscultation Cardiovascular: RRR, no murmur, no edema Gastrointestinal (Abdomen): normal bowel sounds, soft, nontender, no hepatosplenomegaly Musculoskeletal: no cyanosis or clubbing, extremities motor strength 5/5 Skin: no rashes, warm and dry Neurologic: patellar DTR's 2+ bilat, sensation intact and PERRL, EOMI, accommodation nl, no face palsy, no dysarthria Psychiatric: A+Ox3, euthymic affect Lymphatic: no cervical or axillary lymphadenopathy Results & Data Laboratory Results Laboratory Results - last 24 hr 01/07/19 01/07/19 01/07/19 15:58 16:59 19:04 Sodium Potassium Chloride Carbon Dioxide Anion Gap BUN Creatinine Est Cr Clr Drug Dosing Est GFR ( Amer) Est GFR (Non-Af Amer) BUN/Creatinine Ratio Glucose POC Glucose 330 H 302 H 344 H Calcium Beta-Hydroxybutyric Acd 01/07/19 01/08/19 01/08/19 20:10 03:05 07:38 Sodium Potassium Chloride Carbon Dioxide Anion Gap BUN Creatinine Est Cr Clr Drug Dosing Est GFR ( Amer) Est GFR (Non-Af Amer) BUN/Creatinine Ratio Glucose POC Glucose 299 H 334 H 303 H Calcium Beta-Hydroxybutyric Acd 01/08/19 01/08/19 09:15 11:44 Sodium 140 Potassium 3.6 Chloride 110 H Carbon Dioxide 21 Anion Gap 9.0 BUN 3 L Creatinine 0.71 Est Cr Clr Drug Dosing 126.4 Est GFR ( Amer) 115.1 Est GFR (Non-Af Amer) 99.3 BUN/Creatinine Ratio 4.5 L Glucose 350 H POC Glucose 346 H Calcium 8.5 Beta-Hydroxybutyric Acd 5.14 H Medications Administered Current Inpatient Medications Acetaminophen (Tylenol) 650 mg PO Q4H PRN PRN Reason: Pain Stop: 02/06/19 22:15 Albuterol (Ventolin Hfa) 2 puffs INH Q6H PRN PRN Reason: Shortness Of Breath Stop: 02/06/19 00:43 Cephalexin HCl (Keflex) 500 mg PO QID YEN Stop: 01/17/19 08:59 Last Admin: 01/08/19 12:54 Dose: Not Given Documented by: Cyclobenzaprine HCl (Flexeril) 10 mg PO BID PRN PRN Reason: Muscle Spasm Stop: 02/06/19 00:43 Last Admin: 01/07/19 02:26 Dose: 10 mg Documented by: Dextrose (Dextrose 50%) 25 - 50 ml IV UD PRN; Protocol PRN Reason: Hypoglycemia Protocol Stop: 02/06/19 12:29 Doxepin HCl (Sinequan) 200 mg PO HS [facility] Stop: 02/06/19 20:59 Last Admin: 01/08/19 00:03 Dose: Not Given Documented by: Gabapentin (Neurontin) 1,200 mg PO TID [facility] Stop: 02/06/19 08:59 Last Admin: 01/08/19 14:21 Dose: 1,200 mg Documented by: Glucagon (Glucagen) 1 mg IM UD PRN; Protocol PRN Reason: Hypoglycemia Protocol Stop: 02/06/19 12:29 Glucose (Glucose 40%) 15 - 30 gm PO UD PRN; Protocol PRN Reason: Hypoglycemia Protocol Stop: 02/06/19 12:29 Glucose (Dex4 Glucose) 4 - 8 tabs PO UD PRN; Protocol PRN Reason: Hypoglycemia Protocol Stop: 02/06/19 12:29 Insulin Aspart (Novolog Flexpen) 0 units SC ACHS [facility] Stop: 02/06/19 16:29 Last Admin: 01/08/19 12:45 Dose: 13 units Documented by: Insulin Glargine (Lantus Solostar Pen) 20 units SC BID [facility] Stop: 02/07/19 20:59 Lidocaine (Lidoderm 5%) 1 patch TD QAM [facility] Stop: 02/06/19 17:14 Last Admin: 01/08/19 08:26 Dose: 1 patch Documented by: Metformin HCl (Glucophage) 500 mg PO BIDM [facility] Stop: 02/07/19 16:59 Miconazole Nitrate (Desenex) 1 appln EXT PRN PRN PRN Reason: Affected Skin Folds Stop: 02/06/19 16:54 Miscellaneous (Carbohydrates For Hypoglycemia) 15 - 30 gm PO UD PRN PRN Reason: Hypoglycemia Treatment Stop: 02/06/19 12:29 Miscellaneous (Remove Lidoderm Patch) 1 ea N/A DAILY@2100 [facility] Stop: 02/06/19 22:59 Last Admin: 01/08/19 00:04 Dose: 1 ea Documented by: Ondansetron HCl (Zofran Odt) 4 mg PO Q6H PRN PRN Reason: nausea and vomiting Stop: 02/06/19 00:43 Oxycodone HCl (Roxicodone Immediate Rel) 5 mg PO Q6H PRN PRN Reason: Pain Stop: 01/21/19 17:03 Last Admin: 01/08/19 08:35 Dose: 5 mg Documented by: (1) Diabetes Diabetes mellitus type: type 2 Diabetes mellitus correction insulin use: without correction use Diabetes mellitus complication status: without complication Qualified Code(s): E11.9 - Type 2 diabetes mellitus without complications
[2019-01-08] MEDS: METFORMIN HCL 500 MG TAB PO SCH (16:14)
[2019-01-08] MEDS ORDERED: INSULIN GLARGINE SOLOSTAR 100 UNITS/ML 3 ML PEN SC SCH (21:00)
[2019-01-09] MEDS: OXYCODONE HCL IR 5 MG TAB (IMMEDIATE RELEASE) PO PRN ×4 (00:06→21:46)
[2019-01-09 06:33] LABS: Estimated Average Glucose 240 mg/dl
[2019-01-09 07:14] LABS: BUN Creatinine Ratio 9.1 (10-20); Calcium 8.6 mg/dl (8.5-10.1); Creatinine Clr Calc Pharmacy 124.6 ml/min; Est GFR (African American) 113.2; Est GFR (Non-African American) 97.7
[2019-01-09] MEDS: GABAPENTIN 600 MG TAB PO SCH ×3 (08:36→23:36)
[2019-01-09] MEDS: cephALEXin 500 MG CAP PO SCH ×4 (08:36→21:31)
[2019-01-09] MEDS: METFORMIN HCL 500 MG TAB PO SCH ×2 (08:36→17:45)
[2019-01-09] MEDS: LIDOCAINE 5% 1 PATCH TD SCH (08:38)
[2019-01-09] MEDS: INSULIN ASPART 100 UNITS/ML 3 ML PEN SC SCH ×4 (08:41→21:34)
[2019-01-09] MEDS ORDERED: INSULIN GLARGINE SOLOSTAR 100 UNITS/ML 3 ML PEN SC SCH (09:00)
[2019-01-09] MEDS ORDERED: KETOROLAC TROMETHAMINE 15 MG/ML VIAL IV PRN (09:53)
--- NOTE | 2019-01-09 09:59 | Hospitalist Progress Note ---
Date of Service January 09, 2019 Assessment & Plan (1) Diabetic hyperosmolar non-ketotic state: presented with hyperglycemia, glucose > 1000 on admission no signs of acidosis responded well to insulin infusion transitioned to Lantus 10mg BID and Novolog stop IV fluids today, she is well hydrated will increase Lantus to 30mg BID, continue Novolog but tighten coverage continue Metformin 500mg BID start , plan to titrate upwards diabetic diet community nutrition educator met with patient for extended visit yesterday, can be available again today HbA1c 10% try for d/c tomorrow but will need better glucose control (2) Diabetes: new diagnosis, suspected type II since she did not have DKA HbA1c 10% (3) Hyperglycemia: see above (4) Cellulitis of axilla, right: small abscess improving, nearly resolved on Keflex continue on discharge (5) Opioid abuse: pain controlled currently (6) Right shoulder pain: suspect some arthritis, possible rotator cuff tendinitis start on Toradol and look for improvement Subjective patient sitting up in chair, feeling fine overall right shoulder with increased pain today, has full ROM eating well sugars elevated today at 370 HbA1c back at 10.0% suggesting hyperglycemia for some time, in 2018 her HbA1c was only 6.0% other labs are stable, no signs of ketoacidosis discussed lifestyle changes with diabetes, she feels comfortable with portion control, counting carbs Review of Systems All systems reviewed & are unremarkable except as noted in HPI & below Musculoskeletal: + joint pain (right shoulder) Physical Exam Vital Signs (Past 24 Hours): Last Vital Signs Temp 36.5 C 01/09/19 07:45 Pulse 89 01/09/19 07:45 Resp 20 01/09/19 07:45 BP 110/69 01/09/19 07:45 Pulse Ox 96 01/09/19 07:45 Constitutional: WD/WN, vitals as above + obese Eyes: PERRL, conjunctivae normal, anicteric sclerae ENMT: external ear and nose normal, oropharynx normal Neck: trachea midline, no thyromegaly Respiratory: normal respiratory effort, lungs clear to auscultation Cardiovascular: RRR, no murmur, no edema Gastrointestinal (Abdomen): normal bowel sounds, soft, nontender, no hepatosplenomegaly Musculoskeletal: no cyanosis or clubbing, extremities motor strength 5/5 Shoulder: + limited ROM and + joint line tenderness (pain over superior portion of joint); shoulder normal to inspection, no deformity and no effusion Ankle: + joint line tenderness (pain over superior portion of joint) Skin: no rashes, warm and dry Neurologic: patellar DTR's 2+ bilat, sensation intact and PERRL, EOMI, accommodation nl, no face palsy, no dysarthria Psychiatric: A+Ox3, euthymic affect Lymphatic: no cervical or axillary lymphadenopathy Results & Data Laboratory Results Laboratory Results - last 24 hr 01/08/19 01/08/19 01/08/19 09:15 11:44 16:33 Sodium Potassium Chloride Carbon Dioxide Anion Gap BUN Creatinine Est Cr Clr Drug Dosing Est GFR ( Amer) Est GFR (Non-Af Amer) BUN/Creatinine Ratio Glucose POC Glucose 346 H 325 H Estimat Average Glucose Hemoglobin A1c Calcium Beta-Hydroxybutyric Acd 5.14 H 01/08/19 01/09/19 01/09/19 20:04 05:59 05:59 Sodium 137 Potassium 4.0 Chloride 109 H Carbon Dioxide 22 Anion Gap 7.0 BUN 7 Creatinine 0.72 Est Cr Clr Drug Dosing 124.6 Est GFR ( Amer) 113.2 Est GFR (Non-Af Amer) 97.7 BUN/Creatinine Ratio 9.1 L Glucose 370 H* POC Glucose 336 H Estimat Average Glucose 240 Hemoglobin A1c 10.0 H Calcium 8.6 Beta-Hydroxybutyric Acd 8.11 H 01/09/19 07:57 Sodium Potassium Chloride Carbon Dioxide Anion Gap BUN Creatinine Est Cr Clr Drug Dosing Est GFR ( Amer) Est GFR (Non-Af Amer) BUN/Creatinine Ratio Glucose POC Glucose 344 H Estimat Average Glucose Hemoglobin A1c Calcium Beta-Hydroxybutyric Acd Medications Administered Current Inpatient Medications Acetaminophen (Tylenol) 650 mg PO Q4H PRN PRN Reason: Pain Stop: 02/06/19 22:15 Albuterol (Ventolin Hfa) 2 puffs INH Q6H PRN PRN Reason: Shortness Of Breath Stop: 02/06/19 00:43 Cephalexin HCl (Keflex) 500 mg PO QID YEN Stop: 01/17/19 08:59 Last Admin: 01/09/19 08:36 Dose: Not Given Documented by: Cyclobenzaprine HCl (Flexeril) 10 mg PO BID PRN PRN Reason: Muscle Spasm Stop: 02/06/19 00:43 Last Admin: 01/07/19 02:26 Dose: 10 mg Documented by: Dextrose (Dextrose 50%) 25 - 50 ml IV UD PRN; Protocol PRN Reason: Hypoglycemia Protocol Stop: 02/06/19 12:29 Doxepin HCl (Sinequan) 200 mg PO HS [facility] Stop: 02/06/19 20:59 Last Admin: 01/08/19 20:58 Dose: Not Given Documented by: Gabapentin (Neurontin) 1,200 mg PO TID [facility] Stop: 02/06/19 08:59 Last Admin: 01/09/19 08:36 Dose: 1,200 mg Documented by: Glucagon (Glucagen) 1 mg IM UD PRN; Protocol PRN Reason: Hypoglycemia Protocol Stop: 02/06/19 12:29 Glucose (Glucose 40%) 15 - 30 gm PO UD PRN; Protocol PRN Reason: Hypoglycemia Protocol Stop: 02/06/19 12:29 Glucose (Dex4 Glucose) 4 - 8 tabs PO UD PRN; Protocol PRN Reason: Hypoglycemia Protocol Stop: 02/06/19 12:29 Insulin Aspart (Novolog Flexpen) 0 units SC ACHS [facility] Stop: 02/06/19 16:29 Last Admin: 01/09/19 08:41 Dose: 24 units Documented by: Insulin Glargine (Lantus Solostar Pen) 30 units SC BID [facility] Stop: 02/08/19 08:59 Last Admin: 01/09/19 08:43 Dose: 30 units Documented by: Ketorolac Tromethamine (Toradol) 15 mg IV Q6H PRN PRN Reason: Pain Stop: 01/14/19 09:52 Lidocaine (Lidoderm 5%) 1 patch TD QAM [facility] Stop: 02/06/19 17:14 Last Admin: 01/09/19 08:38 Dose: 1 patch Documented by: Metformin HCl (Glucophage) 500 mg PO BIDM [facility] Stop: 02/07/19 16:59 Last Admin: 01/09/19 08:36 Dose: 500 mg Documented by: Miconazole Nitrate (Desenex) 1 appln EXT PRN PRN PRN Reason: Affected Skin Folds Stop: 02/06/19 16:54 Miscellaneous (Carbohydrates For Hypoglycemia) 15 - 30 gm PO UD PRN PRN Reason: Hypoglycemia Treatment Stop: 02/06/19 12:29 Miscellaneous (Remove Lidoderm Patch) 1 ea N/A DAILY@2100 Y[facility] Stop: 02/06/19 22:59 Last Admin: 01/08/19 20:59 Dose: 1 ea Documented by: Ondansetron HCl (Zofran Odt) 4 mg PO Q6H PRN PRN Reason: nausea and vomiting Stop: 02/06/19 00:43 Oxycodone HCl (Roxicodone Immediate Rel) 5 mg PO Q6H PRN PRN Reason: Pain Stop: 01/21/19 17:03 Last Admin: 01/09/19 08:48 Dose: 5 mg Documented by: (1) Diabetes Diabetes mellitus type: type 2 Diabetes mellitus [employer] insulin use: without [employer] use Diabetes mellitus complication status: without complication Qualified Code(s): E11.9 - Type 2 diabetes mellitus without complications
[2019-01-09] MEDS ORDERED: INSULIN GLARGINE SOLOSTAR 100 UNITS/ML 3 ML PEN SC ONE (13:00)
[2019-01-09] MEDS: INSULIN GLARGINE SOLOSTAR 100 UNITS/ML 3 ML PEN SC SCH (21:32)
[2019-01-09] MEDS: DOXEPIN HCL 50 MG CAPSULE PO SCH (23:36)
[2019-01-10] MEDS: LIDOCAINE 5% 1 PATCH TD SCH (08:42)
[2019-01-10] MEDS: METFORMIN HCL 500 MG TAB PO SCH (08:43)
[2019-01-10] MEDS: GABAPENTIN 600 MG TAB PO SCH (08:43)
[2019-01-10] MEDS: cephALEXin 500 MG CAP PO SCH (08:43)
[2019-01-10] MEDS: INSULIN ASPART 100 UNITS/ML 3 ML PEN SC SCH ×2 (08:46→12:42)
[2019-01-10] MEDS: INSULIN GLARGINE SOLOSTAR 100 UNITS/ML 3 ML PEN SC SCH (08:47)
[2019-01-10] MEDS: OXYCODONE HCL IR 5 MG TAB (IMMEDIATE RELEASE) PO PRN (08:51)
[2019-01-10] MEDS ORDERED: SITAGLIPTIN PHOSPHATE 25 MG TAB PO SCH (09:00)
[2019-01-10 09:03] LABS: Calcium 8.4 mg/dl (8.5-10.1); Creatinine Clr Calc Pharmacy 122.9 ml/min; Est GFR (African American) 111.3; Potassium 3.8 mmol/L (3.5-5.1)
--- NOTE | 2019-01-10 10:54 | Discharge Summary ---
Date of Service January 10, 2019 Admission HPI Per Admitting Provider 48 y/o F Hx HTN, PE - Xarelto, morbid obesity, depression, migraines, recent admission for abdominal cellulitis/abscess and for lower extremity weakness possibly due to lumbar stenosis, deconditioning and obesity. She is being treated with Keflex for an abscess in the R axilla. The pt states that she developed polydipsia and polyuria over the past several days. It was at the point where she was constantly drinking ice water. She recognized this as a symptom of hyperglycemia as her had a similar issue before being diagnosed with DM. She called her MD who instructed her to attend the ER. Initial labs demonstrated a glucose of 1088 and hypokalemia. She does not have an anion gap or ketones. She denies lightheadedness, confusion, adb pain, nausea or vomiting. PMH: 1) Morbid obesity 2) PE - on Xarelto 3) Depression 4) Migraines 5) Radiculopathy 6) Lumbar stenosis Surgery: Cholecystectomy Social: Does not drink - states she quit smoking 3 month ago History of prescription opiate abuse Family: Mother due to colon CA - Hx CAD/[place] Father 75 y/o without medical issues Admission Exam Per Admitting Provider General: AAO x 3, no distress ENT: No erythema or exudates, no thrush Eyes: CANDACE, EOMI Head and neck: Normocephalic, atraumatic, No JVD, neck is supple. Chest/heart: Nontender, S1,2, RRR, no murmurs, no gallops Lungs: CTAB, no wheezing or crackles Abdomen: Nontender, nondistended, BS+ Neuro: AAO x 3, speech is clear, no unilateral weakness or loss of sensation, coordination intact Musculoskeletal: No joint inflammation, muscle tenderness, FROM Skin: Very small abscesses - R axilla Extremities: No clubbing, cyanosis, edema Principal Diagnosis Diabetes type II with hyperglycemia Discharge Exam Constitutional WD/WN, vitals as above + obese Eyes PERRL, conjunctivae normal, anicteric sclerae ENMT external ear and nose normal, oropharynx normal Neck trachea midline, no thyromegaly Respiratory normal respiratory effort, lungs clear to auscultation Cardiovascular RRR, no murmur, no edema Gastrointestinal (Abdomen) normal bowel sounds, soft, nontender, no hepatosplenomegaly Musculoskeletal no cyanosis or clubbing, extremities motor strength 5/5 Shoulder: + limited ROM and + joint line tenderness (pain over superior portion of joint); shoulder normal to inspection, no deformity and no effusion Ankle: + joint line tenderness (pain over superior portion of joint) Skin no rashes, warm and dry Neurologic patellar DTR's 2+ bilat, sensation intact and PERRL, EOMI, accommodation nl, no face palsy, no dysarthria Psychiatric A+Ox3, euthymic affect Lymphatic no cervical or axillary lymphadenopathy Discharge Data Allergies Allergy/AdvReac Type Severity Reaction Status Date / Time levofloxacin [From Levaquin] AdvReac Vomiting Verified 01/06/19 23:35 Consultations 01/06/19 23:35 ED Decision to Admit Stat Hospital Course (1) Diabetic hyperosmolar non-ketotic state: presented with hyperglycemia, glucose > 1000 on admission no signs of acidosis responded well to insulin infusion transitioned to Lantus 10mg BID and Novolog stopped IV fluids on 01/08 sugars remained elevated in 300's on initial dosing of Lantus 20 BID and Novolog sliding scale increased Lantus to 30mg BID, continued Novolog with correction factor of 15, still with glucose of 350 in the afternoon on 01/09 extra dose of Lantus 10 units given and Lantus increased to 40 units BID on 01/09 sugars better on 01/10, 197 in the morning, 250 on BMP plan for discharge will be Basaglar Kwikpen 40 units BID, if sugar less than 160 will give only 35 units Novolog four times a day ACHS, correction factor 15 with goal being 100-150, give 1 unit for every 5gms of carbs Metformin 1000mg BID, Januvia 100mg daily continue Metformin 500mg BID start Januvia, plan to titrate upwards diabetic diet family educator met with patient for extended visits for three days specific instructions given follow up with Dr. Jenkins on Tuesday (2) Diabetes: new diagnosis, suspected type II since she did not have DKA HbA1c 10% (3) Hyperglycemia: see above (4) Cellulitis of axilla, right: small abscess improving, nearly resolved on Keflex continue on discharge for 5 more days (5) Opioid abuse: pain controlled currently (6) Right shoulder pain: suspect some arthritis, possible rotator cuff tendinitis start on Toradol and look for improvement Total Time Total Time Spent Total Time Spent (In Minutes): 50 minutes Total Time Includes: Examination of the Patient, Discharge Planning, Medication Reconciliation and Communication With Other Providers (adaptive physical educator) Discharge Plan Discharge Items Patient Disposition: Home - Self-Care Reason For Visit: [facility] Discharge Diagnosis: Diabetes type II presenting with hyperglycemia, non-ketotic Condition: Good Discharge Goals: Improve disease control and Improve function Activity: Resume your previous activity Lifting: None Bathing: No limitations Sexual Activity: When tolerated Exercise/Sports: None Driving/Machine Use: No limitations Non-emergency contact: Primary Care Provider Call non-emergency contact if: you have any medication questions, your symptoms worsen, your pain is not controlled, your pain is worsening and you have a fever Follow-up/Referrals: Aneudy Pérez MD [Primary Care Provider] - 01/17/19 10:30 am (Please, follow up with Dr. Pérez and his associate, Dr. Pool Gonzalez, on TuesdayJanuary 17 at 10:30 am. *If you need to change this appointment, call the office at [phone].) Diet: Carb Consistent or DM2 Addtl Provider Instructions: Medications: - BASAGLAR ( insulin glargine): 40 units twice a day, morning and evening, 12 hours apart - NOVOLOG: will use sliding scale coverage as well as carbohydrate coverage, see below - METFORMIN: 1000mg twice a day, watch for gastrointestinal side effects - JANUVIA: 100mg daily Diabetes type II, new diagnosis, presented with hyperglycemia, not DKA HbA1c 10.0% suggesting sugars elevated for several months treated initially with insulin drip, now on long and short acting insulin Basaglar: 40 units in the morning and evening, check sugar prior to administering dose, if sugar is less than 160 then given 35 units Novolog sliding scale: you should check sugar prior to breakfast, lunch, dinner and at bedtime goal is 100-150 for the time being sliding scale is 1 unit of insulin for every 15 above 150, thus... glucose reading insulin 151-165 1 unit 166-180 2 unit 181-195 3 unit 196-210 4 unit 211-125 5 unit 216-230 6 unit 231-245 7 unit 246-260 8 unit 261-275 9 unit 276-290 10 unit also, you should count carbohydrates prior to eating, give yourself 1 unit of insulin for every 5 grams of carbs Example: 25 grams of carbs in meal and sugar reads 232 prior to eating, you would give 5 units for the carbs and 7 units based on sliding scale for 12 units total Please keep track of sugars as described 4 times a day, write down how many carbs you are eating take information with you to see Dr. Jenkins on Tuesday as we discussed, you will likely need less insulin over time, right now you are in catch up mode since you have been high for so long watch for signs of low blood sugars such as feeling weak, dizzy, sweating be sure to drink orange juice, eat crackers, cookies, or candy to help raise sugare if you start to experience low sugars at any time, call Dr. Jenkins for instruction as you could likely lower insulin dosing Prescriptions: New cephalexin 500 mg Capsule 500 mg PO QID 5 Days Qty: 20 RF: 0 oxycodone 5 mg Tablet 5 mg PO Q6H PRN (Reason: pain) 5 Days Qty: 20 RF: 0 metformin 1,000 mg tablet 1,000 mg PO BIDM 30 Days Qty: 60 RF: 3 sitagliptin 100 mg tablet 100 mg PO DAILY 30 Days Qty: 30 RF: 3 Novolog Flexpen U-100 Insulin 100 unit/mL (3 mL) Insulin Pen 1 units SC ACHS 30 Days Qty: 15 RF: 5 Basaglar KwikPen U-100 Insulin 100 unit/mL (3 mL) insulin pen 40 units SQ BID Qty: 15 RF: 3 Continued cyclobenzaprine 10 mg Tablet 10 mg PO BID PRN (Reason: Muscle Spasm) Qty: 0 RF: 0 gabapentin 600 mg Tablet 1,200 mg PO TID Qty: 0 RF: 0 albuterol sulfate [Ventolin HFA] 90 mcg/actuation Hfa Aerosol Inhaler 2 puff INHALATION Q6H PRN (Reason: Shortness Of Breath) Qty: 0 RF: 0 ondansetron HCl 4 mg Tablet 4 mg PO Q6H PRN (Reason: nausea and vomiting) Qty: 12 RF: 0 diclofenac sodium [Voltaren] 1 % gel 4 g EXT QID PRN (Reason: Pain) RF: 0 doxepin 100 mg capsule 200 mg PO HS RF: 0 fluoxetine 20 mg capsule 20 mg PO DAILY RF: 0 rivaroxaban 20 mg tablet 20 mg PO DAILY RF: 0 sumatriptan succinate 25 mg Tablet 25 mg PO DIRECTED PRN (Reason: Headache) RF: 0 Discontinued sulfamethoxazole-trimethoprim [Bactrim DS] 800-160 mg tablet 160 mg PO Q12H Qty: 14 RF: 0 Stand-Alone Forms: [facility] Discharge Orders: Discharge Order (Routine); Ordered 01/10/19 Ordered By: Unruly Grey Admission Data Admit Date/Time: 01/06/19 23:38 Attending Provider: Unruly Grey Admit Provider: Kane Bentley Primary Care Provider: Aneudy Pérez Other Providers: Kane Bentley Service: Medical
== END 2019-01-10 14:46 | disposition home or self-care (01) | DRG 638 ==
LOC: ED 21:55 → SUATTDRO 23:38 → 2S 23:38 → 4E 01-07 16:28
DX: F32.9 Major depressive disorder, single episode, unspecified; Z86.711 Personal history of pulmonary embolism; E11.65 Type 2 diabetes mellitus with hyperglycemia; N17.9 Acute kidney failure, unspecified; Z79.01 Long term (current) use of anticoagulants; F11.10 Opioid abuse, uncomplicated; E87.6 Hypokalemia; E66.01 Morbid (severe) obesity due to excess calories; I10 Essential (primary) hypertension; E86.0 Dehydration; E11.00 Type 2 diabetes mellitus with hyperosmolarity without nonketotic hyperglycemic-hyperosmolar coma (NKHHC); E87.2 Acidosis; L03.111 Cellulitis of right axilla; J44.9 Chronic obstructive pulmonary disease, unspecified; F41.9 Anxiety disorder, unspecified; M25.511 Pain in right shoulder

== ENCOUNTER 2019-06-17 16:20 | Observation (INO) ==
[2019-06-17] MEDS ORDERED: NovoLIN-R INSULIN PER UNIT CHARGE IV STA ×2 (16:36→18:08)
[2019-06-17] MEDS ORDERED: ACETAMINOPHEN 1,000 MG/100 ML VIAL IV STA (16:37)
[2019-06-17] MEDS ORDERED: SODIUM CHLORIDE 0.9% 1000ML 1,000 ML IV SCH (16:45)
[2019-06-17 17:32] LABS: Mean Corpuscular Hgb Conc 34.8 g/dL (32-36)
[2019-06-17 17:34] LABS: Hematocrit (blood only) 40.5 % (37-47); Hemoglobin 14.1 g/dL (12.0-16.0); Mean Corpuscular Hemoglobin 33.4 pg (25-34); Mean Platelet Volume 12.1 fL (7.4-10.4); Platelet Count 128 K/uL (130-400); RDW Coefficient of Variation 13.8 % (11.5-14.5); RDW Standard Deviation 48.4 fL (36.4-46.3); Red Blood Count 4.22 M/uL (4.2-5.4); White Blood Count 13.15 K/uL (4.8-10.8)
[2019-06-17 17:35] LABS: Basophils # (auto) 0.02 K/uL (0-0.2); Basophils % (auto) 0.2 %; Eosinophils # (auto) 0.09 K/uL (0-0.5); Eosinophils % (auto) 0.7 %; Immature Granulocytes # (auto) 0.04 K/uL (0.00-0.02); Immature Granulocytes % (auto) 0.3 %; Lymphocytes # (auto) 2.05 K/uL (1.2-3.4); Lymphocytes % (auto) 15.6 %; Monocytes # (auto) 1.02 K/uL (0.11-0.59); Monocytes % (auto) 7.8 %; Neutrophils # (auto) 9.93 K/uL (1.4-6.5); Neutrophils % (auto) 75.4 %; Platelet Estimate Normal (Normal)
--- NOTE | 2019-06-17 17:35 | XRay Report ---
LUMBAR SPINE 5 VIEWS CLINICAL HISTORY: Fall. Low back pain. FINDINGS: 5 views of the lumbar spine are compared to study dated 10/14/2010 and correlated with lumbar spine MRI dated 08/29/2018. The skeletal structures are osteopenic. There is no radiographic evidenc e of fracture or malalignment. Vertebral body height and alignment are maintained. Small anterior ost eophytes are seen throughout. The transverse and spinous processes are intact. There is no evidence o f spondylolysis. There is mild disc space narrowing at the lower lumbar levels. The visualized bony p romi appears intact. Degenerative sclerosis is noted in the sacroiliac joints. There is a nonobstruc krystle abdominal bowel gas pattern. Moderate colonic fecal retention is observed. Cholecystectomy clips are seen in the right upper quadrant. Surgical clips and an intrauterine device are noted in the pelv is. There is atherosclerotic calcification of the abdominal aorta. IMPRESSION: No acute bony abnormality is seen involving the lumbar spine. Electronically signed by: Kumar Caldwell M.D. 06/17/2019 5:33 PM
[2019-06-17 17:36] LABS: Albumin Globulin Ratio 0.7 (0.9-2); Albumin Level 3.1 gm/dl (3.4-5.0); BUN Creatinine Ratio 8.9 (10-20); Bilirubin,Total 0.4 mg/dl (0.2-1); Calcium 8.9 mg/dl (8.5-10.1); Est GFR (African American) 63.6; Est GFR (Non-African American) 54.9; Globulin 4.3 gm/dl (2.5-4.0); Magnesium 1.9 mg/dl (1.8-2.4); Potassium 3.9 mmol/L (3.5-5.1); Total Protein 7.4 gm/dl (6.4-8.2)
--- NOTE | 2019-06-17 17:36 | XRay Report ---
SINGLE VIEW CHEST CLINICAL HISTORY: Generalized weakness. Fall. FINDINGS: An AP, portable, upright chest radiograph is compared to study dated 01/16/2019 and correlate d with chest CT dated 09/25/2018. The examination is degraded by portable technique and patient rotat ion. The heart is top normal for projection. The pulmonary vasculature is noncongested. Chronic inte rstitial thickening is similar to previous. There is minimal dependent atelectasis. No airspace conso lidation or large pleural effusion is identified. No pneumothorax is seen. The skeletal structures ar e osteopenic. The bony thorax is grossly intact. IMPRESSION: No active disease in the chest. Electronically signed by: Kumar Caldwell M.D. 06/17/2019 5:35 PM
[2019-06-17] MEDS ORDERED: SODIUM CHLORIDE 0.9% 1000ML 1,000 ML IV ONE (18:00)
[2019-06-17 18:10] LABS: Beta-Hydroxybutyrate 0.77 mg/dl (0.2-2.81)
--- NOTE | 2019-06-17 18:17 | Emergency Department Note ---
Entered by Natalie Jansen acting as a scribe for History of Present Illness General Chief complaint: Hyperglycemia Stated complaint: SUGAR HIGH OVER 600 FOR 12+ HRS Time Seen by Provider: 06/17/19 16:29 Source: patient History of Present Illness Provider complaint: Hyperglycemia Onset (ago): day(s) 3 Location: back Pain Consistency: + constant Maximum Pain Intensity: 9 Quality: + constant Associated symptoms: + other (Positive: hyperglycemia, lower back pain, dehydration. Negative: LOC, urinary symptoms. ) The patient is a 48 year old female with past medical history of left leg pain, UTI, tarlov cyst, diabetes, hypertension, who presents to the ED with complaints of constant hyperglycemia that started three days ago. She reports she was at the doctors office on and her blood sugar was 404 but it was too high to read this morning. The patient repots she was in the ER yesterday for her muro. She notes she took two 4 mg tables of a Medrol dose pack yesterday. The patient notes she feels dehydrated. She reports that she fell down the stairs this morning and hit her lower back and has pain. The patient notes she thinks it is possible that she hit her head but did not lose consciousness. She denies urinary symptoms. Home Medications Home Medications Medication Instructions Recorded Confirmed Type cyclobenzaprine 10 mg PO BID PRN #0 11/18/17 06/17/19 History gabapentin 1,200 mg PO TID #0 tab 11/18/17 06/17/19 History albuterol sulfate [Ventolin HFA] 2 puff INHALATION Q6H PRN #0 02/10/18 06/17/19 History diclofenac sodium [Voltaren] 4 g EXT QID PRN 01/05/19 06/17/19 History ibuprofen 800 mg PO TID PRN 02/03/19 06/17/19 History insulin glargine [Basaglar KwikPen 0 units SQ UD 03/23/19 06/17/19 History U-100 Insulin] acetaminophen [Tylenol Extra 500 mg PO Q6H PRN 06/16/19 06/17/19 History Strength] insulin lispro [Admelog SoloStar 0 unit SUBCUT UD 06/16/19 06/17/19 History U-100 Insulin] metformin 1,000 mg PO BID 06/16/19 06/17/19 History methylprednisolone [Medrol (Eloy)] See Rx Instructions .ROUTE 06/16/19 06/17/19 Rx .COMPLEX #21 ea rizatriptan 5 mg PO UD PRN 06/16/19 06/17/19 History tramadol 50 mg PO Q8H PRN 5 Days #15 tab 06/16/19 06/17/19 Rx celecoxib [Celebrex] 200 mg PO DAILY 06/17/19 06/17/19 History Allergies Allergy/AdvReac Type Severity Reaction Status Date / Time cephalexin AdvReac Severe Vomiting Unverified 06/17/19 17:38 levofloxacin [From Levaquin] AdvReac Vomiting Verified 06/17/19 17:38 Past Med/Surg History Medical History Hypertension (Chronic) Anxiety Brain cyst Chronic low back pain with left-sided sciatica Chronic obstructive pulmonary disease Depression Hypertension Obesity Pulmonary embolism Family History Other Diabetes Obesity Social History Preferred Language: Armenian Communication Ability: Effective Visual Impairment: No Limitations Livestock Feeder Required: No Beliefs That Will Affect Care: None marital status: Current Living Situation: Alone Current Living Situation Comment: pt lives in 2 story [place] Feels Safe at Home: Yes Smoking Status: Current every day smoker Tobacco Type: cigarettes ; Cigarettes Per Day: 20 ; Second Hand Exposure: No ; Hx Alcohol Use: No Hx Substance Use: No Review of Systems See HPI for pertinent positives & negatives. and A total of 10 systems reviewed and were otherwise negative Physical Exam Vital Signs Vital Signs - 24 hr 06/17/19 16:21 06/17/19 17:02 06/17/19 17:25 Temperature 36.4 C L Temperature Source Oral Sepsis Recent Fever Within 48 Hours No Sepsis New/Unexplained Change in Mental Status No Sepsis Action Taken by Nursing No Action Required Pulse Rate 109 H 97 H Pulse Rate from SpO2 Sensor Respiratory Rate 18 19 Blood Pressure 166/92 H Blood Pressure Mean 116 Pulse Oximetry 97 97 Oxygen Delivery Method Room Air Room Air 06/17/19 17:30 06/17/19 17:40 06/17/19 17:50 Temperature Temperature Source Sepsis Recent Fever Within 48 Hours Sepsis New/Unexplained Change in Mental Status Sepsis Action Taken by Nursing Pulse Rate 99 H 97 H 96 H Pulse Rate from SpO2 Sensor 98 H 96 H 96 H Respiratory Rate 18 17 19 Blood Pressure 107/80 Blood Pressure Mean 89 Pulse Oximetry 98 97 98 Oxygen Delivery Method 06/17/19 18:00 06/17/19 18:10 06/17/19 18:20 Temperature Temperature Source Sepsis Recent Fever Within 48 Hours Sepsis New/Unexplained Change in Mental Status Sepsis Action Taken by Nursing Pulse Rate 103 H 91 H 89 Pulse Rate from SpO2 Sensor 95 H 91 H 90 Respiratory Rate 20 20 22 Blood Pressure 114/66 Blood Pressure Mean 82 Pulse Oximetry 98 97 98 Oxygen Delivery Method 06/17/19 18:30 06/17/19 18:40 Temperature Temperature Source Sepsis Recent Fever Within 48 Hours Sepsis New/Unexplained Change in Mental Status Sepsis Action Taken by Nursing Pulse Rate 90 Pulse Rate from SpO2 Sensor 89 Respiratory Rate 19 Blood Pressure 116/86 Blood Pressure Mean 96 Pulse Oximetry 99 Oxygen Delivery Method GENERAL: Patient is in no acute distress. HEENT: No acute trauma, normocephalic atraumatic, mucous membranes moist, no nasal congestion, no scleral icterus. No scalp hematoma. NECK: No stridor, no adenopathy, no meningismus, trachea is midline. LUNGS: Clear to auscultation bilaterally, no wheeze, no rhonchi, breath sounds equal. HEART: Mildly tachycardic, regular rhythm, no murmurs. ABDOMEN: Soft, nontender, bowel sounds positive, no hernias, no peritonitis. BACK: Tender over mid lumbar spine. No bony step offs. EXTREMITIES: No cyanosis or edema, full range of motion of all the joints without pain or difficulty, no signs for acute trauma. NEUROLOGIC: Oriented x 3, no acute motor or sensory deficits, no focal weakness. SKIN: No rash, no jaundice, no diaphoresis. Course 1629: I reviewed the patients old records. The patient was seen in the ED yesterday for her leg. She is here today because she cannot control her blood sugar. The patient was given tramadol and a Medrol dose pack when she was discharged home. She has had muro pain for a while and saw orthopedics but did not find anything. 1433: The patient was evaluated in room C3. A complete history and physical exam was performed. 1800: I asked the nurse to get another blood sugar on the patient. 190: I talked to the case management team. 1911: Upon reevaluation, the patient is resting comfortably. I discussed abela tory and radiographic results with her. She verbalized agreement of the treatment plan. The patient will be evaluated for further management and care. 1933: I discussed the patients case with Dr. Pastor, [facility] Hospitalist. He will evaluate the patient for further management. Administered Medications Discontinued Medications Acetaminophen (Ofirmev) 1,000 mg in 100 mls @ 400 mls/hr IV NOW STA Stop: 06/17/19 16:51 Last Infusion: 06/17/19 17:29 Dose: 0 mls/hr Documented by: [id number] Admin: 06/17/19 16:52 Dose: 400 mls/hr Documented by: [id number] Sodium Chloride (Nss 1000ml) 1,000 mls @ 999 mls/hr IV .Q1H1M YEN Stop: 06/17/19 17:45 Last Infusion: 06/17/19 18:01 Dose: 0 mls/hr Documented by: [id number] Admin: 06/17/19 16:52 Dose: 999 mls/hr Documented by: [id number] Sodium Chloride (Nss 1000ml) 1,000 mls @ 999 mls/hr IV .Q1H1M ONE Stop: 06/17/19 19:00 Last Infusion: 06/17/19 19:13 Dose: 0 mls/hr Documented by: [id number] Admin: 06/17/19 18:10 Dose: 999 mls/hr Documented by: [id number] Insulin Human Regular (Novolin R U-100 Per Unit) 10 units IV NOW STA Stop: 06/17/19 16:37 Last Admin: 06/17/19 16:52 Dose: 10 units Documented by: [id number] Cosigned by: [id number] Insulin Human Regular (Novolin R U-100 Per Unit) 10 units IV NOW STA Stop: 06/17/19 18:09 Last Admin: 06/17/19 18:27 Dose: 10 units Documented by: [id number] Cosigned by: [id number] Medical Decision Making Differential Diagnosis Differential Diagnosis: Dehydration, hyperglycemia, electrolyte imbalance, anemia, renal failure, UTI, pneumonia, lumbar contusion and lumbar fracture. Medical Records Attestation: I reviewed the patient's medical records. Home Medications Current Medication List: was personally reviewed by me Laboratory Data Attestation: I reviewed the patient's lab results. Result diagrams: 06/17/19 16:55 06/17/19 16:55 Lab Results 06/17/19 06/17/19 06/17/19 Range/Units 16:24 16:49 16:51 WBC (4.8-10.8) K/uL RBC (4.2-5.4) M/uL Hgb (12.0-16.0) g/dL Hct (37-47) % MCV (80-100) fL MCH (25-34) pg MCHC (32-36) g/dL RDW Std Deviation (36.4-46.3) fL RDW Coeff of Kelli (11.5-14.5) % Plt Count (130-400) K/uL MPV (7.4-10.4) fL Immature Gran % (Auto) % Neut % (Auto) % Lymph % (Auto) % [place] % (Auto) % Eos % (Auto) % Baso % (Auto) % Immature Gran # (Auto) (0.00-0.02) K/uL Neut # (Auto) (1.4-6.5) K/uL Lymph # (Auto) (1.2-3.4) K/uL [place] # (Auto) (0.11-0.59) K/uL Eos # (Auto) (0-0.5) K/uL Baso # (Auto) (0-0.2) K/uL Platelet Estimate (Normal) Sodium (136-145) mmol/L Potassium (3.5-5.1) mmol/L Chloride (98-107) mmol/L Carbon Dioxide (21-32) mmol/L Anion Gap (3-11) BUN (7-18) mg/dl Creatinine (0.6-1.2) mg/dl Est Cr Clr Drug Dosing ml/min Est GFR ( Amer) Est GFR (Non-Af Amer) BUN/Creatinine Ratio (10-20) Glucose (70-99) mg/dl POC Glucose > 600 H* > 600 H* > 600 H* (70-99) Calcium (8.5-10.1) mg/dl Magnesium (1.8-2.4) mg/dl Total Bilirubin (0.2-1) mg/dl AST (15-37) U/L ALT (12-78) U/L Alkaline Phosphatase (45-117) U/L Total Protein (6.4-8.2) gm/dl Albumin (3.4-5.0) gm/dl Globulin (2.5-4.0) gm/dl Albumin/Globulin Ratio (0.9-2) Beta-Hydroxybutyric Acd (0.2-2.81) mg/dl Specimen Hemolysis Urine Color Urine Appearance (Clear) Urine pH (4.5-7.5) Ur Specific [place] (1.000-1.030) Urine Protein (Negative) Urine Glucose (UA) (Negative) Urine Ketones (Negative) Urine Blood (Negative) Urine Nitrite (Negative) Urine Bilirubin (Negative) Urine Urobilinogen (Negative) Ur Leukocyte Esterase (Negative) 06/17/19 06/17/19 06/17/19 Range/Units 16:55 16:55 18:05 WBC 13.15 H (4.8-10.8) K/uL RBC 4.22 (4.2-5.4) M/uL Hgb 14.1 (12.0-16.0) g/dL Hct 40.5 (37-47) % MCV 96.0 (80-100) fL MCH 33.4 (25-34) pg MCHC 34.8 (32-36) g/dL RDW Std Deviation 48.4 H (36.4-46.3) fL RDW Coeff of Kelli 13.8 (11.5-14.5) % Plt Count 128 L (130-400) K/uL MPV 12.1 H (7.4-10.4) fL Immature Gran % (Auto) 0.3 % Neut % (Auto) 75.4 % Lymph % (Auto) 15.6 % [place] % (Auto) 7.8 % Eos % (Auto) 0.7 % Baso % (Auto) 0.2 % Immature Gran # (Auto) 0.04 H (0.00-0.02) K/uL Neut # (Auto) 9.93 H (1.4-6.5) K/uL Lymph # (Auto) 2.05 (1.2-3.4) K/uL [place] # (Auto) 1.02 H (0.11-0.59) K/uL Eos # (Auto) 0.09 (0-0.5) K/uL Baso # (Auto) 0.02 (0-0.2) K/uL Platelet Estimate Normal (Normal) Sodium 132 L (136-145) mmol/L Potassium 3.9 (3.5-5.1) mmol/L Chloride 100 (98-107) mmol/L Carbon Dioxide 21 (21-32) mmol/L Anion Gap 11.0 (3-11) BUN 10 (7-18) mg/dl Creatinine 1.16 (0.6-1.2) mg/dl Est Cr Clr Drug Dosing 79.0 ml/min Est GFR ( Amer) 63.6 Est GFR (Non-Af Amer) 54.9 BUN/Creatinine Ratio 8.9 L (10-20) Glucose 669 H* (70-99) mg/dl POC Glucose 446 H* (70-99) Calcium 8.9 (8.5-10.1) mg/dl Magnesium 1.9 (1.8-2.4) mg/dl Total Bilirubin 0.4 (0.2-1) mg/dl AST 12 L (15-37) U/L ALT 30 (12-78) U/L Alkaline Phosphatase 131 H (45-117) U/L Total Protein 7.4 (6.4-8.2) gm/dl Albumin 3.1 L (3.4-5.0) gm/dl Globulin 4.3 H (2.5-4.0) gm/dl Albumin/Globulin Ratio 0.7 L (0.9-2) Beta-Hydroxybutyric Acd 0.77 (0.2-2.81) mg/dl Specimen Hemolysis Urine Color Urine Appearance (Clear) Urine pH (4.5-7.5) Ur Specific [place] (1.000-1.030) Urine Protein (Negative) Urine Glucose (UA) (Negative) Urine Ketones (Negative) Urine Blood (Negative) Urine Nitrite (Negative) Urine Bilirubin (Negative) Urine Urobilinogen (Negative) Ur Leukocyte Esterase (Negative) 06/17/19 06/17/19 Range/Units 18:38 19:04 WBC (4.8-10.8) K/uL RBC (4.2-5.4) M/uL Hgb (12.0-16.0) g/dL Hct (37-47) % MCV (80-100) fL MCH (25-34) pg MCHC (32-36) g/dL RDW Std Deviation (36.4-46.3) fL RDW Coeff of Kelli (11.5-14.5) % Plt Count (130-400) K/uL MPV (7.4-10.4) fL Immature Gran % (Auto) % Neut % (Auto) % Lymph % (Auto) % [place] % (Auto) % Eos % (Auto) % Baso % (Auto) % Immature Gran # (Auto) (0.00-0.02) K/uL Neut # (Auto) (1.4-6.5) K/uL Lymph # (Auto) (1.2-3.4) K/uL [place] # (Auto) (0.11-0.59) K/uL Eos # (Auto) (0-0.5) K/uL Baso # (Auto) (0-0.2) K/uL Platelet Estimate (Normal) Sodium (136-145) mmol/L Potassium (3.5-5.1) mmol/L Chloride (98-107) mmol/L Carbon Dioxide (21-32) mmol/L Anion Gap (3-11) BUN (7-18) mg/dl Creatinine (0.6-1.2) mg/dl Est Cr Clr Drug Dosing ml/min Est GFR ( Amer) Est GFR (Non-Af Amer) BUN/Creatinine Ratio (10-20) Glucose (70-99) mg/dl POC Glucose 449 H* (70-99) Calcium (8.5-10.1) mg/dl Magnesium (1.8-2.4) mg/dl Total Bilirubin (0.2-1) mg/dl AST (15-37) U/L ALT (12-78) U/L Alkaline Phosphatase (45-117) U/L Total Protein (6.4-8.2) gm/dl Albumin (3.4-5.0) gm/dl Globulin (2.5-4.0) gm/dl Albumin/Globulin Ratio (0.9-2) Beta-Hydroxybutyric Acd (0.2-2.81) mg/dl Specimen Hemolysis Urine Color Yellow Urine Appearance Clear (Clear) Urine pH 5.5 (4.5-7.5) Ur Specific [place] 1.042 H (1.000-1.030) Urine Protein Negative (Negative) Urine Glucose (UA) 3+ H (Negative) Urine Ketones Negative (Negative) Urine Blood Negative (Negative) Urine Nitrite Negative (Negative) Urine Bilirubin Negative (Negative) Urine Urobilinogen Negative (Negative) Ur Leukocyte Esterase Negative (Negative) Imaging Data Radiologist's Impression: Radiology results as stated below per my review and the radiologist's interpretation: LUMBAR SPINE 5 VIEWS CLINICAL HISTORY: Fall. Low back pain. FINDINGS: 5 views of the lumbar spine are compared to study dated 10/14/2010 and correlated with lumbar spine MRI dated 08/29/2018. The skeletal structures are osteopenic. There is no radiographic evidence of fracture or malalignment. Vertebral body height and alignment are maintained. Small anterior osteophytes are seen throughout. The transverse and spinous processes are intact. There is no evidence of spondylolysis. There is mild disc space narrowing at the lower lumbar levels. The visualized bony pelvis appears intact. Degenerative sclerosis is noted in the sacroiliac joints. There is a nonobstructed abdominal bowel gas pattern. Moderate colonic fecal retention is observed. Cholecystectomy clips are seen in the right upper quadrant. Surgical clips and an intrauterine device are noted in the pelvis. There is atherosclerotic calcification of the abdominal aorta. IMPRESSION: No acute bony abnormality is seen involving the lumbar spine. Electronically signed by: Kumar Caldwell M.D. 06/17/2019 5:33 PM SINGLE VIEW CHEST CLINICAL HISTORY: Generalized weakness. Fall. FINDINGS: An AP, portable, upright chest radiograph is compared to study dated 01/16/2019 and correlated with chest CT dated 09/25/2018. The examination is degraded by portable technique and patient rotation. The heart is top normal for projection. The pulmonary vasculature is noncongested. Chronic interstitial thickening is similar to previous. There is minimal dependent atelectasis. No airspace consolidation or large pleural effusion is identified. No pneumothorax is seen. The skeletal structures are osteopenic. The bony thorax is grossly intact. IMPRESSION: No active disease in the chest. Electronically signed by: Kumar Caldwell M.D. 06/17/2019 5:35 PM Blood Pressure Blood Pressure Findings: Normal blood pressure Blood Pressure Disposition: did not require urgent referral Head Trauma GCS Score: 15 MDM Narrative There is a mild leukocytosis, this could be consistent with infection or just her recent steroid dosing. Platelet count slightly low. No significant renal failure. Glucose was quite high at 669. Alk phos mildly elevated, no other concerning liver enzyme elevations. Urinalysis showed glucose, no evidence for infection. Chest film did not show pneumonia or CHF. Lumbar spine series did not show any evidence for fracture or bony malalignment. On exam, the patient seemed dehydrated and was slightly tachycardic. The patient received IV Tylenol for pain. She was given IV saline, she received 2 L of IV saline. She was given IV insulin, a 10 unit bolus. She received a second 10 unit IV insulin bolus. Despite this above treatment, her sugar is still high, the last value was 449. The patient was placed on an insulin drip. She was placed on IV saline at 150 cc an hour. Given the persistent hyperglycemia, given her dehydration, I do think a hospital stay is warranted. I did speak to the patient and case management. The on-call hospitalist was consulted. The cause for the hyperglycemia appears to be the recent steroid use. Impression & Plan Hyperglycemia, Dehydration, Weakness, Medication reaction Critical Care Time Critical Care Time: Yes Total Critical Care Time: 36 I have personally spent 36 minutes of critical care time in the direct management of this patient. This includes bedside care, interpretation of diagnostic studies, and testing, discussion with consultants, patient, and family members, and other required patient management activities. This 36 minutes is in excess of all separately billable procedures. Discharge Plan Visit Data Chief Complaint: Hyperglycemia Stated Complaint: SUGAR HIGH OVER 600 FOR 12+ HRS ED Provider: Kumar Coronado Discharge Problem: Hyperglycemia, Dehydration, Weakness, Medication reaction Patient Disposition: Being Evaluated by Hospitalist Forms Stand Alone Forms: My [facility] Prescriptions Prescriptions: No Action cyclobenzaprine 10 mg Tablet 10 mg PO BID PRN (Reason: Muscle Spasm) Qty: 0 RF: 0 gabapentin 600 mg Tablet 1,200 mg PO TID Qty: 0 RF: 0 albuterol sulfate [Ventolin HFA] 90 mcg/actuation Hfa Aerosol Inhaler 2 puff INHALATION Q6H PRN (Reason: Shortness Of Breath) Qty: 0 RF: 0 diclofenac sodium [Voltaren] 1 % gel 4 g EXT QID PRN (Reason: Pain) RF: 0 ibuprofen 800 mg Tablet 800 mg PO TID PRN (Reason: Pain) RF: 0 Basaglar KwikPen U-100 Insulin 100 unit/mL (3 mL) insulin pen SQ UD RF: 0 acetaminophen [Tylenol Extra Strength] 500 mg Tablet 500 mg PO Q6H PRN (Reason: Pain) RF: 0 rizatriptan 5 mg tablet 5 mg PO UD PRN (Reason: Migraine Headache) RF: 0 insulin lispro [Admelog SoloStar U-100 Insulin] 100 unit/mL insulin pen subcut UD RF: 0 metformin 1,000 mg tablet extended release 24hr 1,000 mg PO BID RF: 0 tramadol 50 mg tablet 50 mg PO Q8H PRN (Reason: pain) 5 Days Qty: 15 RF: 0 methylprednisolone [Medrol (Eloy)] 4 mg tablets,dose pack See Rx Instructions .ROUTE .COMPLEX Qty: 21 RF: 0 celecoxib [Celebrex] 200 mg Capsule 200 mg PO DAILY RF: 0 Referrals Referrals: Aneudy Pérez MD [Primary Care Provider] - Discharge Problem: Medication reaction Qualifiers: Encounter type: initial encounter Qualified Code(s): T50.905A - Adverse effect of unspecified drugs, medicaments and biological substances, initial encounter The scribe's documentation has been prepared under my direction and personally reviewed by me in its entirety. I confirm that the note above accurately r eflects all work, treatment, procedures, and medical decision making performed by me.
[2019-06-17 18:49] LABS: Appearance Urine Clear (Clear); Bilirubin Urine Negative (Negative); Blood Urine Negative (Negative); Color Urine Yellow; Glucose Urine UA 3+ (Negative); Ketones Urine Negative (Negative); Leukocyte Esterase Urine Negative (Negative); Nitrite Urine Negative (Negative); Protein Urine Negative (Negative); Specific Gravity Urine 1.042 (1.000-1.030); Urobilinogen Urine Negative (Negative); pH Urine 5.5 (4.5-7.5)
[2019-06-17] MEDS ORDERED: INSULIN PROTOCOL GOAL RANGE ONE (19:08)
[2019-06-17] MEDS ORDERED: MODERATE STRESS LEVEL ONE (19:08)
[2019-06-17] MEDS ORDERED: SODIUM CHLORIDE 0.9% 1000ML 1,000 ML IV STA (19:11)
[2019-06-17] MEDS ORDERED: INSULIN REGULAR 250 UNITS in SODIUM CHLORIDE 0.9% 247.5 ML IV SCH (19:15)
--- NOTE | 2019-06-17 20:26 | History & Physical Report ---
Date of Service June 17, 2019 Assessment & Plan (1) Pain in left muro: Ms. Vick is a 48-year-old female with a history of type 2 diabetes mellitus, hypertension, left leg pain, prior PE, morbid obesity, who presented to [facility] due to persistent glucose levels above 600. ED course: 2 L normal saline bolus, 1 L normal saline at 150 mLs per hour, 10 units IV regular insulin x2, 1 g IV acetaminophen Hyperglycemia on a background of type 2 diabetes mellitus -Admit to med/surg with telemetry monitoring -glucose level elevated to >600 on presentation to ED, no anion gap present -per review of pt's outpatient records, pt had previously self discontinued long acting insulin due to hypoglycemia, and was taking occasional fast acting insulin. She also d/andrew metformin due to concerns that this was causing nausea -suspect elevated glucose levels related to recent infection and steroid use, as well as not using long-acting insulin -most recent HbA1c was 6.8% in 03/2019 -received 20 units IV regular insulin in ED -BSG down to 409 at time of my assessment -continue home regimen of 26 units of Lantus BID and ISS to slowly lower glucose levels -continue rehydration with NS & 20 KCl at 150 mls/hr -Monitor for hypokalemia Left anterior muro pain -Began 6 weeks ago, has remained stable since -Patient has already had a negative left-sided venous Doppler -patient has had negative tib/fib & ankle x-rays on 06/14 -Patient has seen PCP and orthopedics for the same. Orthopedics note mentions potential cause being muscle irritation of extensor digitorum longus and tibialis anterior - recommended celecoxib and physical therapy, however patient is unable to see them for 3 weeks -PT/OT evals ordered -Celecoxib continued Mechanical fall resulting in acute back pain -Lumbar spine x-ray with no acute bony abnormality -Pain control with lidocaine patch. Initially home tramadol continued, however patient demanded stronger pain medications or stated that she would sign out AMA. Tramadol discontinued, in favor of Percocet 5 mg/325 mg q4h prn -Per review of chart, patient does have a history of opioid abuse, try and limit further opioids Hypertension -Listed on problem list, however no antihypertensive medications noted -Consider addition of CHRIS inhibitor to medication regimen Chronic low back pain/cervical spondylosis -Continue home regimen of Flexeril, gabapentin and ibuprofen Migraines -Continue home PRN rizatriptan CODE STATUS: Full DVT prophylaxis: 40 mg Lovenox SQ daily Disposition: Admit to med/surg (2) Hyperglycemia: (3) Dehydration: (4) Weakness: (5) Diabetic hyperosmolar non-ketotic state: (6) Morbid obesity with BMI of 40.0-44.9, adult: (7) Diabetes: (8) Hypertension: History of Present Illness Chief Complaint: Hypoglycemia, dehydration Primary Care Provider: Aneudy Pérez MD Ms. Vick is a 48-year-old female with a history of type 2 diabetes mellitus, hypertension, chronic back pain, COPD, left leg pain, prior PE, morbid obesity, who presented to [facility] due to persistent glucose levels above 600. She states that she was seen by her primary care provider 3 days ago for a UTI. Her glucose levels in the office at that time was 404, which was felt to be secondary to her acute infection. She was treated with 3 days of ciprofloxacin. She states that her UTI symptoms have resolved. She then presented to the emergency department yesterday for left leg pain, which has been long-standing, over the past 6 weeks. She states that this began the day after [place] She has seen orthopedics for this, and all of her x-rays thus far have been negative. She has been set up with physical therapy, however is unable to see them for 3 weeks. She was discharged home with a course of tramadol and a Medrol Dosepak. She states that she took 8 mg of the steroids. She noted that beginning yesterday, she began to feel unwell, thirsty, with blurry vision. She states that her glucometer read high for over 3 hours. She increased her long- acting insulin from 26 units twice a day to 40 units twice a day last evening and this morning. She then took 4 rounds of 20 units each of her rapid acting insulin. She states that the last time she took a dose of her rapid acting insulin was at 12 PM today. She also sustained a mechanical fall down her stairs as well. She denies any preceding symptoms, such as chest pain or shortness of breath. She states that she was trying to protect her left leg, and fell backwards down 2-3 stairs. She states that she thinks she hit her head, but denies any loss of consciousness. She currently reports low back pain due to the fall, but denies any other injuries. She denies any abdominal pain, nausea, vomiting, fever or chills. She states that other than the UTI, she has been feeling well. She does endorse a dry cough that she states began after she received her flu shot on . Past medical history: Type 2 diabetes mellitus, diagnosed in January of this year. She also has a history of hypertension and PE in February 2018. She is no longer on anticoagulation. No history of GA. Hx of COPD, and chronic low back pain. Past surgical history: Gallbladder removal, umbilical hernia repair Medications: Celebrex, Flexeril, gabapentin, ibuprofen, Basaglar, lispro, metformin, rizatriptan, tramadol Allergies: Keflex and Levaquin Social history: Smoker since age 16, down to 5 cigarettes a day. No alcohol or recreational drug use Allergies Allergy/AdvReac Type Severity Reaction Status Date / Time cephalexin AdvReac Severe Vomiting Unverified 06/17/19 17:38 levofloxacin [From Levaquin] AdvReac Vomiting Verified 06/17/19 17:38 Home Medications Home Medications Medication Instructions Recorded Confirmed Type cyclobenzaprine 10 mg PO BID PRN #0 11/18/17 06/17/19 History gabapentin 1,200 mg PO TID #0 tab 11/18/17 06/17/19 History albuterol sulfate [Ventolin HFA] 2 puff INHALATION Q6H PRN #0 02/10/18 06/17/19 History diclofenac sodium [Voltaren] 4 g EXT QID PRN 01/05/19 06/17/19 History ibuprofen 800 mg PO TID PRN 02/03/19 06/17/19 History insulin glargine [Basaglar KwikPen 0 units SQ UD 03/23/19 06/17/19 History U-100 Insulin] acetaminophen [Tylenol Extra 500 mg PO Q6H PRN 06/16/19 06/17/19 History Strength] insulin lispro [Admelog SoloStar 0 unit SUBCUT UD 06/16/19 06/17/19 History U-100 Insulin] metformin 1,000 mg PO BID 06/16/19 06/17/19 History methylprednisolone [Medrol (Eloy)] See Rx Instructions .ROUTE 06/16/19 06/17/19 Rx .COMPLEX #21 ea rizatriptan 5 mg PO UD PRN 06/16/19 06/17/19 History tramadol 50 mg PO Q8H PRN 5 Days #15 tab 06/16/19 06/17/19 Rx celecoxib [Celebrex] 200 mg PO DAILY 06/17/19 06/17/19 History Past Med/Surg History Medical History Hypertension (Chronic) Anxiety Brain cyst Chronic low back pain with left-sided sciatica Chronic obstructive pulmonary disease Depression Hypertension Obesity Pulmonary embolism Surgical History History of laparoscopic cholecystectomy S/P laparoscopic hernia repair Family History Other Diabetes Obesity Social History Preferred Language: Cymraes Communication Ability: Effective Visual Impairment: No Limitations Business Reporter Required: No Beliefs That Will Affect Care: None marital status: Current Living Situation: Alone Current Living Situation Comment: pt lives in 2 story [facility] Feels Safe at Home: Yes Safety Concerns: Feels Safe At This Time Smoking Status: Former smoker Tobacco Type: cigarettes ; Cigarettes Per Day: 20 ; Second Hand Exposure: No ; Hx Alcohol Use: No Hx Substance Use: No Review of Systems Constitutional: + fatigue and + anorexia; no fever and no chills Ear, Nose, Mouth, Throat: no nasal congestion Respiratory: + cough; no dyspnea and no wheezing Cardiovascular: + calf pain; no chest pain, no palpitations, no syncope and no edema Gastrointestinal: no abdominal pain, no nausea, no vomiting and no change in bowel habits Genitourinary: no dysuria, no urinary frequency, no urinary urgency and no hematuria Musculoskeletal: + back pain; no neck pain and no joint pain Integumentary: no rash Physical Exam Constitutional: WD/WN, vitals as above + morbidly obese, cooperative and comfortable Eyes: PERRL, conjunctivae normal, anicteric sclerae Neck: Full range of motion of neck Respiratory: normal respiratory effort, lungs clear to auscultation Cardiovascular: RRR, no murmur, no edema Gastrointestinal (Abdomen): normal bowel sounds, soft, nontender, no hepatosplenomegaly Musculoskeletal: Tender to palpation along midline of lumbar spine, with associated tenderness along left-sided paraspinal muscles and piriformis Tender to palpation over anterior muro Skin: no rashes, warm and dry Neurologic: 5/5 power in upper extremity, 5/5 power in lower extremity, with the exception of 4/5 power with left foot flexion, which patient states is secondary to pain Results & Data Vital Signs (Past 12 Hours) Vital Signs Temp Pulse Resp BP Pulse Ox 06/17/19 18:40 90 19 99 06/17/19 18:30 116/86 06/17/19 18:20 89 22 98 06/17/19 18:10 91 H 20 97 06/17/19 18:00 103 H 20 114/66 98 06/17/19 17:50 96 H 19 98 06/17/19 17:40 97 H 17 97 06/17/19 17:30 99 H 18 107/80 98 06/17/19 17:25 97 H 19 06/17/19 17:02 97 06/17/19 16:21 36.4 C L 109 H 18 166/92 H 97 Code Status & VTE Plan VTE Prophylaxis Plan VTE Prophylaxis will be ordered: Yes Supervising Physician Co-Signing Physician Notes Attending addendum: I have physically seen this patient, have supervised the medical residents activities, and agree with the H&P unless as otherwise noted. Assessment and Plan: Hyperglycemia and diabetes mellitus- Admit to med telemetry. Glucose 669 when in the ED, with anion gap in normal range at 11.. Discontinue insulin drip started in ED. Given regular insulin 10 IV x2 in the ED. Improvement in blood sugar to 409. Plan to give usual long-acting insulin Basaglar 26 units subcu twice daily, with coverage scale with NovoLog. Rehydrate with IV fluids, urine specific gravity is high at 1.042. No overt signs of infection. Right muro pain- Patient began reports began after physical activity. She has been followed by orthopedics, who has suggested physical therapy, however, she reports that she cannot get in for 3 weeks. Consult physical therapy while in hospital. This does not appear to be a diabetes mononeuritis process. Remainder of orders and medications as noted. PG Care Time/CCT Total # of Minutes Spent Total Time Spent with Patient: Total time spent is greater than 50% in coordination of care (as documented) at patient's floor/unit and/or counseling patient: Resident Activity Tracking Resident Involvement: Resident Care Provided Care Provided: Adult Hospital Medicine (1) Diabetes Diabetes mellitus complication status: without complication Diabetes mellitus exterminator helper termite insulin use: without exterminator helper termite use Diabetes mellitus type: type 2 Qualified Code(s): E11.9 - Type 2 diabetes mellitus without complications (2) Hypertension Hypertension type: essential hypertension Qualified Code(s): I10 - Essential (primary) hypertension
[2019-06-17] MEDS ORDERED: INSULIN ASPART 100 UNITS/ML 3 ML PEN SC SCH (21:00)
[2019-06-17] MEDS ORDERED: CARBOHYDRATES FOR HYPOGLYCEMIA PO PRN (21:26)
[2019-06-17] MEDS ORDERED: DEXTROSE 50% 50 ML SYRINGE IV PRN (21:26)
[2019-06-17] MEDS ORDERED: TRAMADOL HCL 50 MG TABLET PO PRN (21:26)
[2019-06-17] MEDS ORDERED: CYCLOBENZAPRINE HCL 10 MG TAB PO PRN (21:26)
[2019-06-17] MEDS ORDERED: ACETAMINOPHEN 500 MG TAB PO PRN (21:26)
[2019-06-17] MEDS ORDERED: ALBUTEROL HFA 8 GM INHALER INH PRN (21:26)
[2019-06-17] MEDS ORDERED: GLUCOSE 10 TABS/TUBE PO PRN (21:26)
[2019-06-17] MEDS ORDERED: GLUCAGON FOR INJ 1 MG VIAL SQ PRN (21:26)
[2019-06-17] MEDS ORDERED: RIZATRIPTAN BENZOATE 10 MG TAB PO PRN (21:26)
[2019-06-17] MEDS ORDERED: IBUPROFEN 800 MG TAB PO PRN (21:26)
[2019-06-17] MEDS ORDERED: GLUCOSE 40% GEL 15 GM TUBE PO PRN (21:26)
[2019-06-17] MEDS ORDERED: DICLOFENAC SOD 1% GEL 100 GM TUBE EXT PRN (21:26)
[2019-06-17] MEDS: LIDOCAINE 5% 1 PATCH TD SCH ×2 (21:45→22:28)
[2019-06-17] MEDS: NSS + 20MEQ KCL 20 MEQ/1,000 ML BAG IV SCH (22:11)
[2019-06-17] MEDS: INSULIN GLARGINE SOLOSTAR 100 UNITS/ML 3 ML PEN SQ SCH (22:16)
[2019-06-17] MEDS: INSULIN ASPART 100 UNITS/ML 3 ML PEN SC SCH (22:20)
[2019-06-17] MEDS: GABAPENTIN 600 MG TAB PO SCH (22:27)
[2019-06-17] MEDS: OXYCODONE/ACETAMINOPHEN 5mg/325mg TAB PO PRN (22:32)
[2019-06-17 23:48] LABS: BUN Creatinine Ratio 7.7 (10-20); Calcium 8.6 mg/dl (8.5-10.1); Creatinine Clr Calc Pharmacy 81.8 ml/min; Est GFR (African American) 65.6; Est GFR (Non-African American) 56.6; Potassium 3.4 mmol/L (3.5-5.1)
[2019-06-18 00:01] LABS: Beta-Hydroxybutyrate 0.74 mg/dl (0.2-2.81)
[2019-06-18] MEDS: NSS + 20MEQ KCL 20 MEQ/1,000 ML BAG IV SCH (05:05)
[2019-06-18] MEDS: OXYCODONE/ACETAMINOPHEN 5mg/325mg TAB PO PRN ×2 (05:30→10:16)
[2019-06-18 06:17] LABS: Basophils # (auto) 0.02 K/uL (0-0.2); Basophils % (auto) 0.2 %; Eosinophils # (auto) 0.21 K/uL (0-0.5); Eosinophils % (auto) 2.2 %; Hematocrit (blood only) 35.6 % (37-47); Hemoglobin 12.7 g/dL (12.0-16.0); Immature Granulocytes # (auto) 0.02 K/uL (0.00-0.02); Immature Granulocytes % (auto) 0.2 %; Lymphocytes # (auto) 3.43 K/uL (1.2-3.4); Lymphocytes % (auto) 35.8 %; Mean Corpuscular Hemoglobin 34.1 pg (25-34); Mean Corpuscular Hgb Conc 35.7 g/dL (32-36); Mean Corpuscular Volume 95.7 fL (80-100); Mean Platelet Volume 11.7 fL (7.4-10.4); Monocytes # (auto) 0.66 K/uL (0.11-0.59); Monocytes % (auto) 6.9 %; Neutrophils # (auto) 5.24 K/uL (1.4-6.5); Neutrophils % (auto) 54.7 %; Platelet Count 124 K/uL (130-400); RDW Coefficient of Variation 14.2 % (11.5-14.5); RDW Standard Deviation 49.5 fL (36.4-46.3); Red Blood Count 3.72 M/uL (4.2-5.4); White Blood Count 9.58 K/uL (4.8-10.8)
[2019-06-18 07:04] LABS: BUN Creatinine Ratio 10.4 (10-20); Calcium 7.8 mg/dl (8.5-10.1); Creatinine Clr Calc Pharmacy 115.5 ml/min; Est GFR (African American) 99.6; Potassium 3.8 mmol/L (3.5-5.1)
[2019-06-18] MEDS: GABAPENTIN 600 MG TAB PO SCH (08:39)
[2019-06-18] MEDS: LIDOCAINE 5% 1 PATCH TD SCH (08:39)
[2019-06-18] MEDS: INSULIN GLARGINE SOLOSTAR 100 UNITS/ML 3 ML PEN SQ SCH (08:40)
[2019-06-18] MEDS: INSULIN ASPART 100 UNITS/ML 3 ML PEN SC SCH ×2 (08:40→12:11)
[2019-06-18] MEDS ORDERED: CeleBREX 200 MG CAP PO SCH (09:00)
[2019-06-18] MEDS ORDERED: ENOXAPARIN INJ 40 MG/0.4 ML SYR SQ SCH (09:00)
--- NOTE | 2019-06-18 17:27 | Discharge Summary ---
Date of Service June 18, 2019 Admission HPI Per Admitting Provider Ms. Vick is a 48-year-old female with a history of type 2 diabetes mellitus, hypertension, chronic back pain, COPD, left leg pain, prior PE, morbid obesity, who presented to [facility] due to persistent glucose levels above 600. She states that she was seen by her primary care provider 3 days ago for a UTI. Her glucose levels in the office at that time was 404, which was felt to be secondary to her acute infection. She was treated with 3 days of ciprofloxacin. She states that her UTI symptoms have resolved. She then presented to the emergency department yesterday for left leg pain, w hich has been long-standing, over the past 6 weeks. She states that this began the day after she was running through the [employer] to catch a flight. She has seen orthopedics for this, and all of her x-rays thus far have been negative. She has been set up with physical therapy, however is unable to see them for 3 weeks. She was discharged home with a course of tramadol and a Medrol Dosepak. She states that she took 8 mg of the steroids. She noted that beginning yesterday, she began to feel unwell, thirsty, with blurry vision. She states that her glucometer read high for over 3 hours. She increased her long- acting insulin from 26 units twice a day to 40 units twice a day last evening and this morning. She then took 4 rounds of 20 units each of her rapid acting insulin. She states that the last time she took a dose of her rapid acting insulin was at 12 PM today. She also sustained a mechanical fall down her stairs as well. She denies any preceding symptoms, such as chest pain or shortness of breath. She states that she was trying to protect her left leg, and fell backwards down 2-3 stairs. She states that she thinks she hit her head, but denies any loss of consciousness. She currently reports low back pain due to the fall, but denies any other injuries. She denies any abdominal pain, nausea, vomiting, fever or chills. She states that other than the UTI, she has been feeling well. She does endorse a dry cough that she states began after she received her flu shot on . Past medical history: Type 2 diabetes mellitus, diagnosed in January of this year. She also has a history of hypertension and PE in February 2018. She is no longer on anticoagulation. No history of [place]. Hx of COPD, and chronic low back pain. Past surgical history: Gallbladder removal, umbilical hernia repair Medications: Celebrex, Flexeril, gabapentin, ibuprofen, Basaglar, lispro, metformin, rizatriptan, tramadol Allergies: Keflex and Levaquin Social history: Smoker since age 16, down to 5 cigarettes a day. No alcohol or recreational drug use Admission Exam Per Admitting Provider Constitutional: WD/WN, vitals as above + morbidly obese, cooperative and comfortable Eyes: PERRL, conjunctivae normal, anicteric sclerae Neck: Full range of motion of neck Respiratory: normal respiratory effort, lungs clear to auscultation Cardiovascular: RRR, no murmur, no edema Gastrointestinal (Abdomen): normal bowel sounds, soft, nontender, no hepatosplenomegaly Musculoskeletal: Tender to palpation along midline of lumbar spine, with associated tenderness along left-sided paraspinal muscles and piriformis Tender to palpation over anterior muro Skin: no rashes, warm and dry Neurologic: 5/5 power in upper extremity, 5/5 power in lower extremity, with the exception of 4/5 power with left foot flexion, which patient states is secondary to pain Principal Diagnosis Hyperosmolar Hyperglycemic State Discharge Exam Constitutional + obese and cooperative; no acute distress Respiratory normal respiratory effort and able to speak in complete sentences; no respiratory distress, no retractions, no cough and no audible wheezes Auscultation: lungs clear to auscultation bilaterally; no crackles, no rales, no rhonchi, no wheezes and no pleural rub Cardiovascular Rate/Rhythm: regular rate and regular rhythm Heart Sounds: normal S1 and normal S2; no gallop, no murmur and no cardiac rub Extremities: normal capillary refill; no calf tenderness Gastrointestinal (Abdomen) Inspection/Auscultation: abdomen normal to inspection, + abdomen distended and normal bowel sounds; no abdominal edema Percussion/Palpation: abdomen soft; abdomen nontender Musculoskeletal Extremities: extremities normal to inspection (tenderness to palpation of anter ior L muro); no muscle atrophy (no pain to palpation or squeezing of calves bilaterally) and full ROM of lower extremities (right foot able to plantar and dorsiflex without issue) Ankle: no deformity, no effusion and normal ROM of ankle Discharge Data Allergies Allergy/AdvReac Type Severity Reaction Status Date / Time cephalexin AdvReac Severe Vomiting Unverified 06/17/19 17:38 levofloxacin [From Levaquin] AdvReac Vomiting Verified 06/17/19 17:38 Consultations 06/17/19 19:14 ED Decision to Admit Stat Hospital Course (1) Pain in left muro: Ms. Vick is a 48-year-old female with a history of type 2 diabetes mellitus, hypertension, left leg pain, prior PE, morbid obesity, who presented to [facility] due to persistent glucose levels above 600. In the ED course she received : 2 L normal saline bolus, 1 L normal saline at 150 mLs per hour, 10 units IV regular insulin x2, 1 g IV acetaminophen Likely Hyperglycemic Hyperosmolar State - admitted to med surg - received home regimen of 26 units of Lantus BID and ISS to slowly lower glucose levels over the course of 06/17 - 06/18 - NS & 20 KCl at 150 mls/hr run to rehydrate and continue to bring down BG Left anterior muro pain -Began 6 weeks ago, has remained stable since -Patient has already had a negative left-sided venous Doppler -patient has had negative tib/fib & ankle x-rays on 06/14 -Patient has seen PCP and orthopedics for the same. Orthopedics note mentions potential cause being muscle irritation of extensor digitorum longus and tibialis anterior - recommended celecoxib and physical therapy, however patient is unable to see them for 3 weeks -PT/OT evals ordered Mechanical fall resulting in acute back pain -Lumbar spine x-ray with no acute bony abnormality -Pain control with lidocaine patch. Initially home tramadol continued, however patient demanded stronger pain medications or stated that she would sign out AMA. Tramadol discontinued, in favor of Percocet 5 mg/325 mg q4h prn -Per review of chart, patient does have a history of opioid abuse, tried to limit further opioid use Other chronic medical conditions managed per home regimen. (2) Hyperglycemia: (3) Dehydration: (4) Weakness: (5) Diabetic hyperosmolar non-ketotic state: (6) Morbid obesity with BMI of 40.0-44.9, adult: (7) Diabetes: (8) Hypertension: Total Time Total Time Spent Total Time Spent (In Minutes): 30 minutes Discharge Plan Discharge Items Patient Disposition: Hospice - Home Reason For Visit: HYPERGLYCEMIA, DEHYDRATION Discharge Diagnosis: Hyperosmolar Hyperglycemic State Discharge Goals: Improve disease control Activity: Per Instructions section Non-emergency contact: Primary Care Provider Call non-emergency contact if: your pain is unusual for you and your temperature is above 101 Follow-up/Referrals: Aneudy Pérez MD [Primary Care Provider] - 06/22/19 8:30 am (Please, follow up at Dr. Pérez's office with his associate, Dr. Dasilva, on TuesdayJune 22 at 8:30 am. *If you need to change this appointment, call their office at [phone].) Diet: Carb Consistent or DM2 Addtl Provider Instructions: Monitor blood sugars frequently at home. Take 26 units of basal insulin once in the morning and once at night for sugar control. If greater than 120, take quick acting insulin (aspart) as per Dr. Pérez's previous instructions from the clinic for sugar control. Keep hydrated with fluids multiple times per day. Avoid high carbohydrate and sugary foods such as breads, sweets, soda or other foods with high fructose corn syrup. If blood sugars are over 500, you experience blurring vision, chest pain, dizziness or fainting, go to the emergency room immediately. Prescriptions: Continued cyclobenzaprine 10 mg Tablet 10 mg PO BID PRN (Reason: Muscle Spasm) Qty: 0 RF: 0 gabapentin 600 mg Tablet 1,200 mg PO TID Qty: 0 RF: 0 albuterol sulfate [Ventolin HFA] 90 mcg/actuation Hfa Aerosol Inhaler 2 puff INHALATION Q6H PRN (Reason: Shortness Of Breath) Qty: 0 RF: 0 diclofenac sodium [Voltaren] 1 % gel 4 g EXT QID PRN (Reason: Pain) RF: 0 ibuprofen 800 mg Tablet 800 mg PO TID PRN (Reason: Pain) RF: 0 Basaglar KwikPen U-100 Insulin 100 unit/mL (3 mL) insulin pen SQ UD RF: 0 acetaminophen [Tylenol Extra Strength] 500 mg Tablet 500 mg PO Q6H PRN (Reason: Pain) RF: 0 rizatriptan 5 mg tablet 5 mg PO UD PRN (Reason: Migraine Headache) RF: 0 insulin lispro [Admelog SoloStar U-100 Insulin] 100 unit/mL insulin pen subcut UD RF: 0 metformin 1,000 mg tablet extended release 24hr 1,000 mg PO BID RF: 0 tramadol 50 mg tablet 50 mg PO Q8H PRN (Reason: pain) 5 Days Qty: 15 RF: 0 celecoxib [Celebrex] 200 mg Capsule 200 mg PO DAILY RF: 0 Discontinued methylprednisolone [Medrol (Eloy)] 4 mg tablets,dose pack See Rx Instructions .ROUTE .COMPLEX Qty: 21 RF: 0 Stand-Alone Forms: [facility] Discharge Orders: Discharge Order (Routine); Ordered 06/18/19 Ordered By: Patsy Nuñez Admission Data Admit Date/Time: 06/17/19 20:25 Attending Provider: Aneudy Pérez Admit Provider: Mario Dasilva Primary Care Provider: Aneudy Pérez Other Providers: Benigno Pastor Service: Telemetry Medical Other Interventions: Discharge Summary Assessment (RN) Last Done: 06/18/19 11:35 DC Date/Time DO NOT enter until pt leaves facility: 06/18/19 12:45 Supervising Physician Co-Signing Physician Notes Attending attestation Pt seen and examined in concert with Dr. Nuñez. In agreement with the documented findings as noted in the resident documentation with any exceptions or additions as noted here. Hyperglycemia in the setting of DMII, previously well controlled - continue present regimen of glargine insulin and aspart on discharge. Follow with primary care for further adjustment. Encourage good hydration and dietary carbohydrate limiting LLE pain - likely MSK w/ negative evaluation - conservative care and PT. Continue celecoxib per ortho recommendation Else see resident documentation as noted. Resident Activity Tracking Resident Involvement: Resident Care Provided Care Provided: Adult Hospital Medicine
== END 2019-06-18 12:45 | disposition hospice, home (50) ==
LOC: 2N 16:20 → ED 16:20 → SUATTDRO 20:25 → 2N 20:59

== ENCOUNTER 2019-10-24 12:01 | Observation (INO) ==
[2019-10-24 12:41] LABS: Basophils # (auto) 0.02 K/uL (0-0.2); Basophils % (auto) 0.2 %; Eosinophils # (auto) 0.14 K/uL (0-0.5); Eosinophils % (auto) 1.6 %; Hematocrit (blood only) 45.4 % (37-47); Hemoglobin 16.1 g/dL (12.0-16.0); Immature Granulocytes # (auto) 0.01 K/uL (0.00-0.02); Immature Granulocytes % (auto) 0.1 %; Lymphocytes # (auto) 2.24 K/uL (1.2-3.4); Lymphocytes % (auto) 25.8 %; Mean Corpuscular Hemoglobin 33.2 pg (25-34); Mean Corpuscular Hgb Conc 35.5 g/dL (32-36); Mean Corpuscular Volume 93.6 fL (80-100); Mean Platelet Volume 12.6 fL (7.4-10.4); Monocytes # (auto) 0.53 K/uL (0.11-0.59); Monocytes % (auto) 6.1 %; Neutrophils # (auto) 5.74 K/uL (1.4-6.5); Neutrophils % (auto) 66.2 %; Platelet Count 149 K/uL (130-400); RDW Coefficient of Variation 13.8 % (11.5-14.5); RDW Standard Deviation 46.9 fL (36.4-46.3); Red Blood Count 4.85 M/uL (4.2-5.4); White Blood Count 8.68 K/uL (4.8-10.8)
[2019-10-24 12:42] LABS: Appearance Urine Clear (Clear); Bilirubin Urine Negative (Negative); Blood Urine Negative (Negative); Color Urine Yellow; Glucose Urine UA 3+ (Negative); Ketones Urine Negative (Negative); Leukocyte Esterase Urine Negative (Negative); Nitrite Urine Negative (Negative); Protein Urine Trace (Negative); Specific Gravity Urine 1.043 (1.000-1.030); Urobilinogen Urine Negative (Negative)
[2019-10-24] MEDS ORDERED: ONDANSETRON INJ 2 MG/ML 2 ML VIAL IV STA (12:42)
[2019-10-24] MEDS ORDERED: NovoLIN-R INSULIN PER UNIT CHARGE IV STA (12:42)
[2019-10-24] MEDS ORDERED: SODIUM CHLORIDE 0.9% 1000ML 1,000 ML IV SCH (12:45)
[2019-10-24] MEDS ORDERED: MoRPHine SULFATE 4 MG/ML 1 ML CARP\\VIAL IV PRN (12:45)
[2019-10-24 13:05] LABS: Albumin Globulin Ratio 0.9 (0.9-2); Albumin Level 4.1 gm/dl (3.4-5.0); BUN Creatinine Ratio 6.7 (10-20); Bilirubin,Total 0.8 mg/dl (0.2-1); Calcium 10.1 mg/dl (8.5-10.1); Creatinine Clr Calc Pharmacy 64.5 ml/min; Est GFR (African American) 57.7; Est GFR (Non-African American) 49.8; Globulin 4.8 gm/dl (2.5-4.0); Magnesium 2.1 mg/dl (1.8-2.4); Potassium 3.4 mmol/L (3.5-5.1); Total Protein 8.9 gm/dl (6.4-8.2)
[2019-10-24 13:06] LABS: Epithelial Cell Urine Auto 0-5 /lpf (0-5)
[2019-10-24] MEDS ORDERED: SODIUM CHLORIDE 0.9% 1000ML 1,000 ML IV ONE (13:06)
--- NOTE | 2019-10-24 13:10 | XRay Report ---
XR chest 1V portable HISTORY: 49 years-old Female weakness acute weakness with cough COMPARISON: Chest CT 09/27/2019, chest radiograph 08/31/2019 TECHNIQUE: Portable AP view of the chest FINDINGS: Cardiac silhouette is upper limits of normal in size, unchanged. Mediastinal contours are within norm al limits. Lung pond are clear without pneumothorax, pleural effusion, focal airspace consolidation or overt pulmonary edema. Suggestion of mild emphysema. Degenerative changes of the shoulders and sp ine. IMPRESSION: No acute process. ACT 112: Negative or not required by law. The above report was generated using voice recognition software. It may contain grammatical, syntax o r spelling errors. Electronically signed by: Marino Arreola M.D. 10/24/2019 1:08 PM
[2019-10-24 13:17] LABS: Beta-Hydroxybutyrate 1.16 mg/dl (0.2-2.81)
[2019-10-24] MEDS ORDERED: IOVERSOL 100ml IV PRN (13:23)
--- NOTE | 2019-10-24 13:40 | CT Scan Report ---
CT abd pelvis IV con only CLINICAL HISTORY: 49 years-old Female presenting with right-sided abdominal pain. TECHNIQUE: Multidetector CT of the abdomen and pelvis was performed after the administration of intra venous contrast. IV contrast: 94 mL of Optiray 320. One or more dose lowering techniques were used co nsistent with the principles of ALARA (as low as reasonably achievable), including automatic exposure control, mA or kV adjustment to individual patient size, and/or use of iterative reconstruction. COMPARISON: 09/14/2019. CT DOSE (mGy.cm): The estimated cumulative dose is 1454.41 mGy.cm. 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 Lung bases: Normal heart size. No pericardial or pleural effusion. Patchy nodular groundglass infiltr ates most focally in the periphery of the right lower lobe, new from prior. Liver: Nodular morphology of the liver consistent with cirrhosis. No focal lesion allowing for this s samara phase of contrast. Patent hepatic vasculature. Biliary: Mild biliary ductal prominence likely a reservoir effect in the post cholecystectomy state. Gallbladder surgically absent. Pancreas: Moderate parenchymal atrophy. Spleen: Top normal size. Adrenal glands: Normal. Kidneys and ureters: Normal. No hydronephrosis. Bladder: Normal. Pelvic organs: Intrauterine device in place. Uterus otherwise normal. Ovaries normal. Bowel: Normal appendix. No bowel obstruction. Peritoneal cavity: No free fluid or intraperitoneal gas. Lymph nodes: No enlarged lymph nodes in the abdomen or pelvis. Vasculature: Atherosclerosis of the normal caliber abdominal aorta. IVC patent. Abdominal wall: Evidence of prior ventral hernia repair with a small recurrent fluid containing umbil ical hernia. Musculoskeletal: Sacral dural ectasia. IMPRESSION: 1. No acute intra-abdominal pathology. 2. Cirrhosis. 3. Borderline enlargement of the spleen may suggest developing portal hypertension. 4. IUD in place. 5. Mild patchy groundglass infiltrates in the right lower lobe raise concern for an infectious or in flammatory process. ACT 112: Negative or not required by law. Electronically signed by: Pool Torres M.D. 10/24/2019 1:38 PM
[2019-10-24 14:14] LABS: Base Excess ABG -5.4 mEq/L (-9-1.8); HCO3 ABG 19 mmol/L (19-24); Oxygen Saturation ABG 97.4 % (90-95); PCO2 ABG 33 mmHg (35-46); PO2 ABG 94 mmHg (80-95); pH ABG 7.38 (7.35-7.45)
[2019-10-24 14:36] LABS: Allen Test Pos (Pos)
[2019-10-24] MEDS ORDERED: NovoLIN-R BOLUS FROM BAG IV ONE (15:15)
[2019-10-24] MEDS ORDERED: INSULIN REGULAR 250 UNITS in SODIUM CHLORIDE 0.9% 247.5 ML IV SCH (15:15)
[2019-10-24] MEDS ORDERED: PHARMACY GLYCEMIC MGMT CONSULT PRN (16:09)
[2019-10-24] MEDS ORDERED: GLUCOSE 10 TABS/TUBE PO PRN (16:45)
[2019-10-24] MEDS ORDERED: GLUCOSE 40% GEL 15 GM TUBE PO PRN (16:45)
[2019-10-24] MEDS ORDERED: GLUCAGON FOR INJ 1 MG VIAL IM PRN (16:45)
[2019-10-24] MEDS ORDERED: CARBOHYDRATES FOR HYPOGLYCEMIA PO PRN (16:45)
[2019-10-24] MEDS ORDERED: DEXTROSE 50% 50 ML SYRINGE IV PRN (16:45)
[2019-10-24] MEDS ORDERED: ACETAMINOPHEN CAFFEINE PO PRN (16:47)
[2019-10-24] MEDS ORDERED: PROMETHAZINE HCL 25 MG TAB PO PRN (16:47)
[2019-10-24] MEDS ORDERED: DICLOFENAC SOD 1% GEL 100 GM TUBE EXT PRN (16:47)
[2019-10-24] MEDS ORDERED: ALBUTEROL HFA 8 GM INHALER INH PRN (16:47)
[2019-10-24] MEDS ORDERED: GABAPENTIN 600 MG TAB PO STA (16:49)
[2019-10-24] MEDS ORDERED: OXYCODONE HCL IR 5 MG TAB (IMMEDIATE RELEASE) PO STA (16:50)
[2019-10-24] MEDS ORDERED: CYCLOBENZAPRINE HCL 10 MG TAB PO PRN (17:04)
[2019-10-24] MEDS: INSULIN ASPART 100 UNITS/ML 3 ML PEN SC SCH ×3 (17:29→21:31)
[2019-10-24] MEDS: NYSTATIN POWDER 15GM BTL EXT SCH ×2 (18:20→20:41)
--- NOTE | 2019-10-24 19:27 | Emergency Department Note ---
Entered by Jennifer Azevedo acting as a scribe for History of Present Illness General Chief complaint: Hyperglycemia Stated complaint: HIGH SUGAR,RIGHT ABDOMINAL PAIN Time Seen by Provider: 10/24/19 12:35 Source: patient History of Present Illness Onset (ago): week(s) 3 Location: head Pain Consistency: + intermittent Maximum Pain Intensity: 7 Quality: + other (hyperglycemia (>600mg/dL)) Relieved By: not by medication (insulin) Associated symptoms: + denies other symptoms (rashes, vomiting, urinary symptoms) and + other (constant pain in lower right abdomen, lethargic, thirst, nausea) The patient is a 49 year old female that is presenting to the Emergency Room with complaints of intermittent hyperglycemia that started 3 weeks ago. The patient reports that her blood glucose readings have been elevated on and off. She states that she has been able to get them under control but they then start to rise again. She notes that her blood glucose reading was over 600mg/dL this morning prior to arrival. She reports that she has a constant pain in her lower right abdomen that started around the same time as her symptoms. She rates the pain as an 8/10 currently. She denies any rash in the area. She notes that she has been taking Ibuprofen intermittently for the pain without significant relief. She endorses some nausea but denies any vomiting. She notes that she feels lethargic and thirsty. She denies any urinary complaints. She notes that she has a history of UTIs and states that her current symptoms do not resemble past episodes. The patient reports that she is status post a cholecystectomy. She denies any history of an appendectomy. The patient reports that she has a history of an umbilical hernia repair. Home Medications Home Medications Medication Instructions Recorded Confirmed Type cyclobenzaprine 10 mg PO BID PRN #0 11/18/17 10/24/19 History gabapentin 1,200 mg PO TID #0 tab 11/18/17 10/24/19 History albuterol sulfate [Ventolin HFA] 2 puff INHALATION Q6H PRN #0 02/10/18 10/24/19 History diclofenac sodium [Voltaren] 4 g EXT QID PRN 01/05/19 10/24/19 History Basaglar KwikPen U-100 Insulin 60 units SQ AMPM 03/23/19 10/24/19 History insulin lispro [Admelog SoloStar 0 unit SUBCUT DIRECTED 06/16/19 10/24/19 History U-100 Insulin] metformin 2,000 mg PO QAM 06/16/19 10/24/19 History rizatriptan 5 mg PO UD PRN 06/16/19 10/24/19 History acetaminophen-caffeine [Excedrin 1 tab PO Q12H PRN 10/24/19 10/24/19 History Tension Headache] clindamycin phosphate 1 applic TOPICAL QAM 10/24/19 10/24/19 History fluticasone furoate-vilanterol 1 inh INHALATION QAM 10/24/19 10/24/19 History [Breo Ellipta] fluticasone propion-salmeterol 1 puff INHALATION BID 10/24/19 10/24/19 History ibuprofen 800 mg PO TID PRN 10/24/19 10/24/19 History nystatin 1 applic TOPICAL UD 10/24/19 10/24/19 History promethazine 25 mg PO Q6H PRN 10/24/19 10/24/19 History semaglutide [Ozempic] 0 mg SUBCUT UD 10/24/19 10/24/19 History trazodone 100 mg PO HS 10/24/19 10/24/19 History Allergies Allergy/AdvReac Type Severity Reaction Status Date / Time cephalexin AdvReac Severe Vomiting Unverified 10/24/19 14:35 levofloxacin [From Levaquin] AdvReac Vomiting Verified 10/24/19 14:35 Past Med/Surg History Medical History Anxiety Brain cyst Chronic low back pain with left-sided sciatica Chronic obstructive pulmonary disease Depression Hypertension (Chronic) Hypertension Obesity Pulmonary embolism Surgical History History of laparoscopic cholecystectomy S/P laparoscopic hernia repair Family History Other Diabetes Obesity Social History Preferred Language: Sinhala Communication Ability: Effective Visual Impairment: No Limitations Controls Designer Required: No Beliefs That Will Affect Care: None marital status: Current Living Situation: Significant Other Current Living Situation Comment: pt lives in 2 story [place] Feels Safe at Home: Yes Safety Concerns: Feels Safe At This Time Smoking Status: Current every day smoker Tobacco Type: cigarettes ; Cigarettes Per Day: 5 ; Do You Dip or Chew Tobacco: No ; Second Hand Exposure: Yes ; Hx Alcohol Use: No Hx Substance Use: No Review of Systems See HPI for pertinent positives & negatives. and A total of 10 systems reviewed and were otherwise negative Physical Exam Vital Signs Vital Signs - 24 hr 10/24/19 12:04 10/24/19 12:20 10/24/19 13:21 Temperature 36.8 C Temperature Source Oral Pulse Rate 101 H 98 H 90 Pulse Rate from SpO2 Sensor Respiratory Rate 18 20 17 Respiratory Effort / Characteristics Non-Labored Respiratory Depth Normal Blood Pressure 138/84 123/75 134/82 Blood Pressure Mean 102 91 99 Blood Pressure Position Sitting Pulse Oximetry 99 98 98 Oxygen Delivery Method Room Air Room Air Room Air Sepsis Recent Fever Within 48 Hours No Sepsis Action Taken by Nursing No Action Required 10/24/19 14:18 Temperature Temperature Source Pulse Rate 83 Pulse Rate from SpO2 Sensor 81 Respiratory Rate 17 Respiratory Effort / Characteristics Respiratory Depth Blood Pressure Blood Pressure Mean Blood Pressure Position Pulse Oximetry 98 Oxygen Delivery Method Room Air Sepsis Recent Fever Within 48 Hours Sepsis Action Taken by Nursing GENERAL: Patient is in no acute distress. HEENT: No acute trauma, normocephalic atraumatic, mucous membranes moist, no nasal congestion, no scleral icterus. NECK: No stridor, no adenopathy, no meningismus, trachea is midline. LUNGS: Clear to auscultation bilaterally, no wheeze, no rhonchi, breath sounds equal. HEART: Without murmurs gallops or rubs, regular rate and rhythm. ABDOMEN: Soft, bowel sounds positive, no hernias, no peritonitis. Diffusely tender about the abdomen but more so around the lateral right mid abdomen. EXTREMITIES: No cyanosis or edema, full range of motion of all the joints without pain or difficulty, no signs for acute trauma. NEUROLOGIC: Oriented x 3, no acute motor or sensory deficits, no focal weakness. SKIN: No rash, no jaundice, no diaphoresis. Course Course 1256:The patient was evaluated in room C10. A complete history and physical examination was performed. 1306: Patient's blood glucose is 746mg/dL. 1505: I discussed the patients case with Dr. Park, [facility], who will evaluate the patient for further management and care. 1515: Upon reevaluation, the patient is resting comfortably. I discussed laboratory and radiographic results with the patient. She verbalized agreement of the treatment plan. The patient will be evaluated for further management and care. Administered Medications Insulin Human Regular 250 (units/ Sodium Chloride) 250 mls @ 5 mls/hr IV .Q24H YEN; Protocol Stop: 11/23/19 15:14 Last Titration: 10/24/19 19:14 Dose: 5 units/hr, 5 mls/hr Documented by: [id number] Cosigned by: [id number] Titration: 10/24/19 17:33 Dose: 5 units/hr, 5 mls/hr Documented by: [id number] Cosigned by: [id number] Titration: 10/24/19 16:32 Dose: 4.2 units/hr, 4.2 mls/hr Documented by: [id number] Cosigned by: [id number] Admin: 10/24/19 15:28 Dose: 3 units/hr, 3 mls/hr Documented by: [id number] Cosigned by: [id number] Insulin Aspart (Novolog Flexpen) 0 units SC ACHS YEN Stop: 11/23/19 16:29 Last Admin: 10/24/19 17:29 Dose: 7 units Documented by: [id number] Cosigned by: [id number] Nystatin (Mycostatin) 1 appln EXT QID YEN Stop: 11/23/19 16:59 Last Admin: 10/24/19 18:20 Dose: Not Given Documented by: [id number] Discontinued Medications Gabapentin (Neurontin) 1,200 mg PO NOW STA Stop: 10/24/19 16:50 Last Admin: 10/24/19 17:28 Dose: 1,200 mg Documented by: [id number] Sodium Chloride (Nss 1000ml) 1,000 mls @ 999 mls/hr IV .Q1H1M YEN Stop: 10/24/19 13:45 Last Infusion: 10/24/19 14:10 Dose: 0 mls/hr Documented by: [id number] Admin: 10/24/19 13:17 Dose: 999 mls/hr Documented by: [id number] Sodium Chloride (Nss 1000ml) 1,000 mls @ 999 mls/hr IV .Q1H1M ONE Stop: 10/24/19 14:06 Last Infusion: 10/24/19 14:10 Dose: 0 mls/hr Documented by: [id number] Admin: 10/24/19 13:16 Dose: 999 mls/hr Documented by: [id number] Insulin Human Regular (Novolin R U-100 Per Unit) 10 units IV NOW STA Stop: 10/24/19 12:43 Last Admin: 10/24/19 13:15 Dose: 10 units Documented by: [id number] Cosigned by: [id number] Insulin Human Regular (Novolin R Bolus From Bag) 3 units IV ONE ONE Stop: 10/24/19 15:16 Last Admin: 10/24/19 15:28 Dose: 3 units Documented by: [id number] Cosigned by: [id number] Ioversol (Optiray 320 100ml) 94 ml IV ONCE PRN PRN Reason: Interaction Checking Stop: 10/28/19 13:22 Last Admin: 10/24/19 13:24 Dose: 94 ml Documented by: [id number] Morphine Sulfate (Morphine Sulfate) 4 mg IV Q30M PRN PRN Reason: Pain Stop: 11/07/19 12:44 Last Admin: 10/24/19 13:15 Dose: 4 mg Documented by: [id number] Ondansetron HCl (Zofran) 4 mg IV NOW STA Stop: 10/24/19 12:43 Last Admin: 10/24/19 13:15 Dose: 4 mg Documented by: [id number] Oxycodone HCl (Roxicodone Immediate Rel) 5 mg PO NOW STA Stop: 10/24/19 16:51 Last Admin: 10/24/19 17:28 Dose: 5 mg Documented by: [id number] Medical Decision Making Differential Diagnosis Differential diagnosis: Etiologies such as hyperglycemia, UTI, appendectomy, diverticulitis, hernia, musculoskeletal pain, pneumonia, electrolyte imbalance, dehydration as well as others were entertained. Medical Records Attestation: I reviewed the patient's medical records. Home Medications Current Medication List: was personally reviewed by me Laboratory Data Attestation: I reviewed the patient's lab results. Result diagrams: 10/24/19 12:21 10/24/19 12:21 Lab Results 10/24/19 10/24/19 10/24/19 Range/Units 12:08 12:21 12:21 WBC 8.68 (4.8-10.8) K/uL RBC 4.85 (4.2-5.4) M/uL Hgb 16.1 H (12.0-16.0) g/dL Hct 45.4 (37-47) % MCV 93.6 (80-100) fL MCH 33.2 (25-34) pg MCHC 35.5 (32-36) g/dL RDW Std Deviation 46.9 H (36.4-46.3) fL RDW Coeff of Kelli 13.8 (11.5-14.5) % Plt Count 149 (130-400) K/uL MPV 12.6 H (7.4-10.4) fL Immature Gran % (Auto) 0.1 % Neut % (Auto) 66.2 % Lymph % (Auto) 25.8 % Spencer % (Auto) 6.1 % Eos % (Auto) 1.6 % Baso % (Auto) 0.2 % Immature Gran # (Auto) 0.01 (0.00-0.02) K/uL Neut # (Auto) 5.74 (1.4-6.5) K/uL Lymph # (Auto) 2.24 (1.2-3.4) K/uL Spencer # (Auto) 0.53 (0.11-0.59) K/uL Eos # (Auto) 0.14 (0-0.5) K/uL Baso # (Auto) 0.02 (0-0.2) K/uL ABG pH (7.35-7.45) ABG pCO2 (35-46) mmHg ABG pO2 (80-95) mmHg ABG HCO3 (19-24) mmol/L ABG O2 Saturation (90-95) % ABG Base Excess (-9-1.8) mEq/L Reed Test (Pos) Barometric Pressure mm/Hg Oxygen Given Sodium 127 L (136-145) mmol/L Potassium 3.4 L (3.5-5.1) mmol/L Chloride 95 L (98-107) mmol/L Carbon Dioxide 24 (21-32) mmol/L Anion Gap 8.0 (3-11) BUN 8 (7-18) mg/dl Creatinine 1.25 H (0.6-1.2) mg/dl Est Cr Clr Drug Dosing 64.5 ml/min Est GFR ( Amer) 57.7 Est GFR (Non-Af Amer) 49.8 BUN/Creatinine Ratio 6.7 L (10-20) Glucose 746 H* (70-99) mg/dl POC Glucose > 600 H* (70-99) mg/dl Lactate (0.4-2.0) mmol/L Calcium 10.1 (8.5-10.1) mg/dl Magnesium 2.1 (1.8-2.4) mg/dl Total Bilirubin 0.8 (0.2-1) mg/dl AST 20 (15-37) U/L ALT 35 (12-78) U/L Alkaline Phosphatase 199 H (45-117) U/L Total Protein 8.9 H (6.4-8.2) gm/dl Albumin 4.1 (3.4-5.0) gm/dl Globulin 4.8 H (2.5-4.0) gm/dl Albumin/Globulin Ratio 0.9 (0.9-2) Beta-Hydroxybutyric Acd 1.16 (0.2-2.81) mg/dl Urine Color Urine Appearance (Clear) Urine pH (4.5-7.5) Ur Specific [place] (1.000-1.030) Urine Protein (Negative) Urine Glucose (UA) (Negative) Urine Ketones (Negative) Urine Blood (Negative) Urine Nitrite (Negative) Urine Bilirubin (Negative) Urine Urobilinogen (Negative) Ur Leukocyte Esterase (Negative) Urine WBC (Auto) (0-5) /hpf Urine RBC (Auto) (0-4) /hpf U Hyaline Cast (Auto) U Epithel Cells (Auto) (0-5) /lpf Urine Bacteria (Auto) 10/24/19 10/24/19 10/24/19 Range/Units 12:21 13:36 14:02 WBC (4.8-10.8) K/uL RBC (4.2-5.4) M/uL Hgb (12.0-16.0) g/dL Hct (37-47) % MCV (80-100) fL MCH (25-34) pg MCHC (32-36) g/dL RDW Std Deviation (36.4-46.3) fL RDW Coeff of Kelli (11.5-14.5) % Plt Count (130-400) K/uL MPV (7.4-10.4) fL Immature Gran % (Auto) % Neut % (Auto) % Lymph % (Auto) % Spencer % (Auto) % Eos % (Auto) % Baso % (Auto) % Immature Gran # (Auto) (0.00-0.02) K/uL Neut # (Auto) (1.4-6.5) K/uL Lymph # (Auto) (1.2-3.4) K/uL Spencer # (Auto) (0.11-0.59) K/uL Eos # (Auto) (0-0.5) K/uL Baso # (Auto) (0-0.2) K/uL ABG pH 7.38 (7.35-7.45) ABG pCO2 33 L (35-46) mmHg ABG pO2 94 (80-95) mmHg ABG HCO3 19 (19-24) mmol/L ABG O2 Saturation 97.4 H (90-95) % ABG Base Excess -5.4 (-9-1.8) mEq/L Reed Test Pos (Pos) Barometric Pressure 734.0 mm/Hg Oxygen Given Room Air Sodium (136-145) mmol/L Potassium (3.5-5.1) mmol/L Chloride (98-107) mmol/L Carbon Dioxide (21-32) mmol/L Anion Gap (3-11) BUN (7-18) mg/dl Creatinine (0.6-1.2) mg/dl Est Cr Clr Drug Dosing ml/min Est GFR ( Amer) Est GFR (Non-Af Amer) BUN/Creatinine Ratio (10-20) Glucose (70-99) mg/dl POC Glucose (70-99) mg/dl Lactate 3.8 H* (0.4-2.0) mmol/L Calcium (8.5-10.1) mg/dl Magnesium (1.8-2.4) mg/dl Total Bilirubin (0.2-1) mg/dl AST (15-37) U/L ALT (12-78) U/L Alkaline Phosphatase (45-117) U/L Total Protein (6.4-8.2) gm/dl Albumin (3.4-5.0) gm/dl Globulin (2.5-4.0) gm/dl Albumin/Globulin Ratio (0.9-2) Beta-Hydroxybutyric Acd (0.2-2.81) mg/dl Urine Color Yellow Urine Appearance Clear (Clear) Urine pH 5.0 (4.5-7.5) Ur Specific [place] 1.043 H (1.000-1.030) Urine Protein Trace H (Negative) Urine Glucose (UA) 3+ H (Negative) Urine Ketones Negative (Negative) Urine Blood Negative (Negative) Urine Nitrite Negative (Negative) Urine Bilirubin Negative (Negative) Urine Urobilinogen Negative (Negative) Ur Leukocyte Esterase Negative (Negative) Urine WBC (Auto) 1-5 (0-5) /hpf Urine RBC (Auto) 5-10 H (0-4) /hpf U Hyaline Cast (Auto) Not Reportable U Epithel Cells (Auto) 0-5 (0-5) /lpf Urine Bacteria (Auto) Not Reportable 10/24/19 Range/Units 14:51 WBC (4.8-10.8) K/uL RBC (4.2-5.4) M/uL Hgb (12.0-16.0) g/dL Hct (37-47) % MCV (80-100) fL MCH (25-34) pg MCHC (32-36) g/dL RDW Std Deviation (36.4-46.3) fL RDW Coeff of Kelli (11.5-14.5) % Plt Count (130-400) K/uL MPV (7.4-10.4) fL Immature Gran % (Auto) % Neut % (Auto) % Lymph % (Auto) % Spencer % (Auto) % Eos % (Auto) % Baso % (Auto) % Immature Gran # (Auto) (0.00-0.02) K/uL Neut # (Auto) (1.4-6.5) K/uL Lymph # (Auto) (1.2-3.4) K/uL Spencer # (Auto) (0.11-0.59) K/uL Eos # (Auto) (0-0.5) K/uL Baso # (Auto) (0-0.2) K/uL ABG pH (7.35-7.45) ABG pCO2 (35-46) mmHg ABG pO2 (80-95) mmHg ABG HCO3 (19-24) mmol/L ABG O2 Saturation (90-95) % ABG Base Excess (-9-1.8) mEq/L Reed Test (Pos) Barometric Pressure mm/Hg Oxygen Given Sodium (136-145) mmol/L Potassium (3.5-5.1) mmol/L Chloride (98-107) mmol/L Carbon Dioxide (21-32) mmol/L Anion Gap (3-11) BUN (7-18) mg/dl Creatinine (0.6-1.2) mg/dl Est Cr Clr Drug Dosing ml/min Est GFR ( Amer) Est GFR (Non-Af Amer) BUN/Creatinine Ratio (10-20) Glucose (70-99) mg/dl POC Glucose 504 H* (70-99) mg/dl Lactate (0.4-2.0) mmol/L Calcium (8.5-10.1) mg/dl Magnesium (1.8-2.4) mg/dl Total Bilirubin (0.2-1) mg/dl AST (15-37) U/L ALT (12-78) U/L Alkaline Phosphatase (45-117) U/L Total Protein (6.4-8.2) gm/dl Albumin (3.4-5.0) gm/dl Globulin (2.5-4.0) gm/dl Albumin/Globulin Ratio (0.9-2) Beta-Hydroxybutyric Acd (0.2-2.81) mg/dl Urine Color Urine Appearance (Clear) Urine pH (4.5-7.5) Ur Specific [place] (1.000-1.030) Urine Protein (Negative) Urine Glucose (UA) (Negative) Urine Ketones (Negative) Urine Blood (Negative) Urine Nitrite (Negative) Urine Bilirubin (Negative) Urine Urobilinogen (Negative) Ur Leukocyte Esterase (Negative) Urine WBC (Auto) (0-5) /hpf Urine RBC (Auto) (0-4) /hpf U Hyaline Cast (Auto) U Epithel Cells (Auto) (0-5) /lpf Urine Bacteria (Auto) Imaging Data Radiologist's Impression: Radiology results as stated below per my review and the radiologist's interpretation: CT abd pelvis IV con only CLINICAL HISTORY: 49 years-old Female presenting with right-sided abdominal pain. TECHNIQUE: Multidetector CT of the abdomen and pelvis was performed after the administration of intravenous contrast. IV contrast: 94 mL of Optiray 320. One or more dose lowering techniques were used consistent with the principles of ALARA (as low as reasonably achievable), including automatic exposure control, mA or kV adjustment to individual patient size, and/or use of iterative reconstruction. COMPARISON: 09/14/2019. CT DOSE (mGy.cm): The estimated cumulative dose is 1454.41 mGy.cm. 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 Lung bases: Normal heart size. No pericardial or pleural effusion. Patchy nodular groundglass infiltrates most focally in the periphery of the right lower lobe, new from prior. Liver: Nodular morphology of the liver consistent with cirrhosis. No focal lesion allowing for this single phase of contrast. Patent hepatic vasculature. Biliary: Mild biliary ductal prominence likely a reservoir effect in the post cholecystectomy state. Gallbladder surgically absent. Pancreas: Moderate parenchymal atrophy. Spleen: Top normal size. Adrenal glands: Normal. Kidneys and ureters: Normal. No hydronephrosis. Bladder: Normal. Pelvic organs: Intrauterine device in place. Uterus otherwise normal. Ovaries normal. Bowel: Normal appendix. No bowel obstruction. Peritoneal cavity: No free fluid or intraperitoneal gas. Lymph nodes: No enlarged lymph nodes in the abdomen or pelvis. Vasculature: Atherosclerosis of the normal caliber abdominal aorta. IVC patent. Abdominal wall: Evidence of prior ventral hernia repair with a small recurrent fluid containing umbilical hernia. Musculoskeletal: Sacral dural ectasia. IMPRESSION: 1. No acute intra-abdominal pathology. 2. Cirrhosis. 3. Borderline enlargement of the spleen may suggest developing portal hypertension. 4. IUD in place. 5. Mild patchy groundglass infiltrates in the right lower lobe raise concern for an infectious or inflammatory process. ACT 112: Negative or not required by law. Electronically signed by: Pool Torres M.D. 10/24/2019 1:38 PM XR chest 1V portable HISTORY: 49 years-old Female weakness acute weakness with cough COMPARISON: Chest CT 09/27/2019, chest radiograph 08/31/2019 TECHNIQUE: Portable AP view of the chest FINDINGS: Cardiac silhouette is upper limits of normal in size, unchanged. Mediastinal contours are within normal limits. Lung pond are clear without pneumothorax, pleural effusion, focal airspace consolidation or overt pulmonary edema. Suggestion of mild emphysema. Degenerative changes of the shoulders and spine. IMPRESSION: No acute process. ACT 112: Negative or not required by law. The above report was generated using voice recognition software. It may contain grammatical, syntax or spelling errors. Electronically signed by: Marino Arreola M.D. 10/24/2019 1:08 PM Blood Pressure Blood Pressure Findings: Elevated blood pressure Blood Pressure Disposition: Referred to patients primary care provider GILES Narrative There is no leukocytosis or concerning anemia. Renal panel testing did not show renal failure however, the blood sugar was elevated at over 700. Sodium was low at 127, likely pseudohyponatremia from the higher sugar. ABG did not show any evidence for acidosis. Lactic acid level was elevated, likely consistent with dehydration. Alk phos was somewhat elevated, the remaining LFTs were unremarkable. Urinalysis showed glucose, no signs for infection. Abdominal and pelvis CT did not show any evidence for acute surgical process. No diverticulitis. Chest film did not show any evidence for pneumonia. On exam, t he patient appeared dehydrated. She did not have peritonitis. There was no fever. The patient received 2 L of IV saline, 10 units of IV insulin. Blood sugar did decrease to around 500 with this treatment. Patient received IV Zofran for nausea and IV morphine for pain. She was eventually placed on an insulin drip. The patient requires a hospital stay for her hyperglycemia and dehydration. The cause for the high sugar value is unclear. She is dehydrated, likely as result of the higher sugars. I do not find any evidence for a source for infection. I spoke to the patient and case management. The on-call hospitalist has been consulted. Patient is currently resting comfortably Continuous Cardiac Monitoring: An order for continuous cardiac monitoring was ordered. Indication: Hyperglycemia Rhythm: Normal sinus Rate: 85bpm Impression & Plan Hyperglycemia, Dehydration, Acidosis, lactic, Right sided abdominal pain, Hyponatremia Discharge Plan Visit Data *Final* Discharge Date/Time: 10/24/19 15:45 Chief Complaint: Hyperglycemia Stated Complaint: HIGH SUGAR,RIGHT ABDOMINAL PAIN ED Provider: Kumar Coronado Discharge Problem: Hyperglycemia, Dehydration, Acidosis, lactic, Right sided abdominal pain, Hyponatremia Patient Disposition: Admitted As Inpatient Discharge Instructions Interventions: ED Discharge Assessment Last Done: 10/24/19 15:45 The scribe's documentation has been prepared under my direction and personally reviewed by me in its entirety. I confirm that the note above accurately reflects all work, treatment, procedures, and medical decision making performed by me.
--- NOTE | 2019-10-24 20:18 | History & Physical Report ---
Date of Service October 24, 2019 Assessment & Plan (1) Hyperglycemia: In setting of T2DM with long chain quiller tender insulin use HbA1C 10 in January 2019. Will repeat level in AM. Stop metformin. IV insulin drip recommended for 24 hours as unclear if absorbing high doses of SC insulin given, as this doesn't appear to bring her glucose measurements down in the same capacity. Plan to covert to SC in the morning. Consult peer educator. She is due to see an continuous improvement facilitator soon and plans on discussing an insulin pump which hopefully would help. Looking back on her diagnosis of diabetes this appears very acute onset in December 2018 shortly after a course of keflex and Bactrim for axilla cellulitis. She eloped from the ER with chest pain 4 days after this, glucose noted to be 474. No lipase was taken and I wonder whether this represented a Bactrim-associated pancreatitis. The following day she returned with a glucose > 1000. No lipase was taken on that admission as no mention of abdominal/chest pain. She did not have ketonuria and was not acidotic on ABG, therefore no DKA to suggest complete pancreatic failure. Recent CT imaging of the pancreas has shown moderate parenchymal atrophy and suspect she has an element of both pancreatic insufficiency and longer term insulin resistance. (2) Dehydration: LR 125 ml/hr (3) Acidosis, lactic: Not septic so no need to repeat within 2 hours. Possibly just dehydration with hyperglycemic osmotic diuresis. However with all her chronic pain - consider repeating this while on metformin and not acutely unwell as an outpatient if not previously performed to make sure not contributing towards her chronic pains. (4) Right sided abdominal pain: This is non-acute and going on for 3 weeks. No etiology on CT A/P. Not reproducible with resisted hip flexion. Since it is going on for 3 weeks this does not represent ovarian torsion however other ovarian pathology such as cyst may be better seen on vaginal US and would consider this if not previously performed as outpatient. See below for pain medication. (5) Opioid abuse: Noted in history. Morphine requested by patient. One dose of oxycodone given prior to realizing her history. Will give tramadol overnight but she should not be discharged with this. (6) Hyponatremia: In setting of hyperglycemia, will resolve with treating glucose. (7) Liver cirrhosis: Noted on CT imaging. Unknown prior workup for this but would ask for patient to go on residency list so this could be clarified. (8) DVT prophylaxis: Heparin 5000 units Q8H History of Present Illness Chief Complaint: Hyperglycemia, hyponatremia, Right lower quadrant pain Primary Care Provider: Aneudy Pérez MD Elza Vick is a 49 year old female patient with type 2 diabetes mellitus, hypertension, chronic back pain, COPD, left leg pain, prior PE, morbid obesity, who presented to [facility] due to ongoing hyperglycemia for the last 3 weeks. Her blood glucose was over 600mg/dL this morning. She denies any dizziness, chest pain, cough, fevers, chills, urinary symptoms or change in mental status. In the ER her glucose level was > 600. She reports no changes in the way she is taking her insulin or her diet. However recently her GLP-1 was stopped by her insurance and she is due to start Ozempic in the near future. In addition she is concerned about right lower quadrant abdominal pain. Present for three weeks. She reports she has had extensive prior workup of this and no cause could be found. Requesting morphine that she was given in the ER while in hospital to keep it under control because pain is 8/10 at present although patient was noted to be resting in bed looking relatively comfortable. Unfortunately outpatient report from September is in preliminary state and does not include A&P as to this right abdominal pain. She was diagnosed with a UTI on a prior visit. Allergies Allergy/AdvReac Type Severity Reaction Status Date / Time cephalexin AdvReac Severe Vomiting Unverified 10/24/19 14:35 levofloxacin [From Levaquin] AdvReac Vomiting Verified 10/24/19 14:35 Home Medications Home Medications Medication Instructions Recorded Confirmed Type cyclobenzaprine 10 mg PO BID PRN #0 11/18/17 10/24/19 History gabapentin 1,200 mg PO TID #0 tab 11/18/17 10/24/19 History albuterol sulfate [Ventolin HFA] 2 puff INHALATION Q6H PRN #0 02/10/18 10/24/19 History diclofenac sodium [Voltaren] 4 g EXT QID PRN 01/05/19 10/24/19 History Basaglar KwikPen U-100 Insulin 60 units SQ AMPM 03/23/19 10/24/19 History insulin lispro [Admelog SoloStar 0 unit SUBCUT DIRECTED 06/16/19 10/24/19 History U-100 Insulin] metformin 2,000 mg PO QAM 06/16/19 10/24/19 History rizatriptan 5 mg PO UD PRN 06/16/19 10/24/19 History acetaminophen-caffeine [Excedrin 1 tab PO Q12H PRN 10/24/19 10/24/19 History Tension Headache] clindamycin phosphate 1 applic TOPICAL QAM 10/24/19 10/24/19 History fluticasone furoate-vilanterol 1 inh INHALATION QAM 10/24/19 10/24/19 History [Breo Ellipta] fluticasone propion-salmeterol 1 puff INHALATION BID 10/24/19 10/24/19 History ibuprofen 800 mg PO TID PRN 10/24/19 10/24/19 History nystatin 1 applic TOPICAL UD 10/24/19 10/24/19 History promethazine 25 mg PO Q6H PRN 10/24/19 10/24/19 History semaglutide [Ozempic] 0 mg SUBCUT UD 10/24/19 10/24/19 History trazodone 100 mg PO HS 10/24/19 10/24/19 History Past Med/Surg History Medical History Anxiety Brain cyst Chronic low back pain with left-sided sciatica Chronic obstructive pulmonary disease Depression Hypertension (Chronic) Hypertension Obesity Pulmonary embolism Surgical History History of laparoscopic cholecystectomy S/P laparoscopic hernia repair Family History Other Diabetes Obesity Social History Preferred Language: Scottish Communication Ability: Effective Visual Impairment: No Limitations Senior Quality Engineer Required: No Beliefs That Will Affect Care: None marital status: Current Living Situation: Significant Other Current Living Situation Comment: pt lives in 2 story [place] Feels Safe at Home: Yes Safety Concerns: Feels Safe At This Time Smoking Status: Current every day smoker Tobacco Type: cigarettes ; Cigarettes Per Day: 5 ; Do You Dip or Chew Tobacco: No ; Second Hand Exposure: Yes ; Hx Alcohol Use: No Hx Substance Use: No Review of Systems Review of Systems: All systems reviewed & are unremarkable except as noted in HPI & below Physical Exam Constitutional: well developed and + morbidly obese; no acute distress Eyes: PERRL, conjunctivae normal, anicteric sclerae ENMT: external ear and nose normal, oropharynx normal Neck: trachea midline, no thyromegaly Respiratory: normal respiratory effort, lungs clear to auscultation Cardiovascular: Rate/Rhythm: regular rate and regular rhythm Heart Sounds: no murmur Vessels: no JVD Extremities: normal capillary refill and + pedal edema (1+ b/l to knees); no calf tenderness Gastrointestinal (Abdomen): Inspection/Auscultation: abdomen normal to inspection and normal bowel sounds; abdomen not distended Percussion/Palpation: + abdomen tender (RLQ pain on deep palpation, generlized mild pain elsewhere) and abdomen soft; no guarding and abdomen not rigid Skin: no rashes, warm and dry Neurologic: moves all extremities and awake; no focal motor deficits and not confused Speech / Cognition: normal speech Motor/Sensory: no tremor, no pronator drift and no sensory deficit Psychiatric: A+Ox3, euthymic affect Results & Data Vital Signs (Past 12 Hours) Vital Signs Temp Pulse Pulse Pulse Resp BP BP 10/24/19 19:45 36.5 C 72 18 122/75 10/24/19 15:54 36.4 C L 64 18 132/83 10/24/19 15:45 89 18 127/78 10/24/19 14:18 83 17 10/24/19 13:21 90 17 134/82 10/24/19 12:20 98 H 20 123/75 10/24/19 12:04 36.8 C 101 H 18 138/84 Pulse Ox 10/24/19 19:45 97 10/24/19 15:54 98 10/24/19 15:45 99 10/24/19 14:18 98 10/24/19 13:21 98 10/24/19 12:20 98 10/24/19 12:04 99 Code Status & VTE Plan Code Status Full VTE Prophylaxis Plan VTE Prophylaxis will be ordered: Yes PG Care Time/CCT Total # of Minutes Spent Total Time Spent with Patient: Total time spent is greater than 50% in coordination of care (as documented) at patient's floor/unit and/or counseling patient: (1) Liver cirrhosis Hepatic cirrhosis type: unspecified hepatic cirrhosis
[2019-10-24] MEDS: TRAZODONE HCL 100 MG TAB PO SCH (20:41)
[2019-10-24] MEDS: GABAPENTIN 600 MG TAB PO SCH (20:42)
[2019-10-24] MEDS: LACTATED RINGER'S 1,000 ML IV SCH (20:52)
[2019-10-24] MEDS ORDERED: INSULIN GLARGINE SOLOSTAR 100 UNITS/ML 3 ML PEN SC SCH (21:00)
[2019-10-24] MEDS ORDERED: ACETAMINOPHEN 325 MG TAB PO PRN (21:50)
[2019-10-24] MEDS: TRAMADOL HCL 50 MG TABLET PO PRN (22:35)
[2019-10-25] MEDS: [UNRECOGNIZED DRUG - OTHER] SCH ×4 (00:28→23:11)
[2019-10-25] MEDS: LACTATED RINGER'S 1,000 ML IV SCH ×2 (04:06→13:00)
[2019-10-25] MEDS: HEPARIN SOD 5,000 UNIT/0.5 ML VIAL SQ SCH ×3 (05:04→21:30)
[2019-10-25 06:43] LABS: Basophils # (auto) 0.03 K/uL (0-0.2); Basophils % (auto) 0.4 %; Eosinophils # (auto) 0.27 K/uL (0-0.5); Eosinophils % (auto) 3.4 %; Hemoglobin 12.8 g/dL (12.0-16.0); Immature Granulocytes # (auto) 0.02 K/uL (0.00-0.02); Immature Granulocytes % (auto) 0.3 %; Lymphocytes # (auto) 3.29 K/uL (1.2-3.4); Lymphocytes % (auto) 41.4 %; Mean Corpuscular Hemoglobin 32.3 pg (25-34); Mean Corpuscular Hgb Conc 34.6 g/dL (32-36); Mean Corpuscular Volume 93.4 fL (80-100); Mean Platelet Volume 11.5 fL (7.4-10.4); Monocytes # (auto) 0.53 K/uL (0.11-0.59); Monocytes % (auto) 6.7 %; Neutrophils # (auto) 3.81 K/uL (1.4-6.5); Neutrophils % (auto) 47.8 %; Platelet Count 114 K/uL (130-400); RDW Coefficient of Variation 13.8 % (11.5-14.5); RDW Standard Deviation 47.2 fL (36.4-46.3); Red Blood Count 3.96 M/uL (4.2-5.4); White Blood Count 7.95 K/uL (4.8-10.8)
[2019-10-25 07:10] LABS: Albumin Level 2.6 gm/dl (3.4-5.0); BUN Creatinine Ratio 11.9 (10-20); Calcium 8.5 mg/dl (8.5-10.1); Est GFR (African American) 122.3; Est GFR (Non-African American) 105.5; Potassium 3.1 mmol/L (3.5-5.1)
[2019-10-25 07:12] LABS: Albumin Globulin Ratio 0.8 (0.9-2); Bilirubin,Total 0.4 mg/dl (0.2-1); Globulin 3.3 gm/dl (2.5-4.0); Total Protein 5.9 gm/dl (6.4-8.2)
[2019-10-25 07:16] LABS: Estimated Average Glucose 292 mg/dl; Hemoglobin A1C 11.8 % (4.5-5.6)
[2019-10-25] MEDS ORDERED: INSULIN GLARGINE SOLOSTAR 100 UNITS/ML 3 ML PEN SC ONE ×2 (08:45→21:00)
[2019-10-25] MEDS ORDERED: HEPARIN SOD 5,000 UNIT/0.5 ML VIAL SQ SCH (09:00)
[2019-10-25] MEDS: INSULIN ASPART 100 UNITS/ML 3 ML PEN SC SCH ×4 (10:01→21:31)
[2019-10-25] MEDS: FLUTICASONE/VILANTEROL 100/25MCG 14 PUFFS/INHALER INH SCH (12:16)
[2019-10-25] MEDS: GABAPENTIN 600 MG TAB PO SCH ×3 (12:16→20:18)
[2019-10-25] MEDS: NYSTATIN POWDER 15GM BTL EXT SCH ×4 (12:16→20:19)
--- NOTE | 2019-10-25 15:44 | Pharmacy Report ---
Glycemic Control Consultation - Date of Service October 25, 2019 - Scope Scope: Glycemic Pharmacist consulted by Dr Park on 10/24 for glycemic control and to write orders per [facility] inpatient glycemic control protocol - Objective Weight: 101.8 kg Accuchecks BSG (last 24hrs): 10/24/19 10/24/19 10/24/19 15:25 16:33 17:32 Glucose POC Glucose 579 H* 586 H* 498 H* 10/24/19 10/24/19 10/24/19 18:44 19:31 20:29 Glucose POC Glucose 367 H* 285 H 245 H 10/24/19 10/24/19 10/24/19 21:30 22:30 23:28 Glucose POC Glucose 187 H 145 H 126 H 10/25/19 10/25/19 10/25/19 00:30 00:48 01:19 Glucose POC Glucose 100 H 115 H 110 H 10/25/19 10/25/19 10/25/19 01:59 02:57 04:05 Glucose POC Glucose 151 H 227 H 192 H 10/25/19 10/25/19 10/25/19 05:03 06:07 06:28 Glucose 177 H POC Glucose 185 H 179 H 10/25/19 10/25/19 10/25/19 07:06 08:06 09:59 Glucose POC Glucose 178 H 154 H 107 H 10/25/19 10/25/19 10:58 12:16 Glucose POC Glucose 97 92 Laboratory Data (last 24hrs): 10/25/19 06:28 Potassium 3.1 L Carbon Dioxide 26 Anion Gap 3.0 Creatinine 0.60 D Est Cr Clr Drug Dosing 136.0 HbA1c: Hemoglobin A1c 11.8 % (4.5-5.6) H 10/25/19 06:28 - Recent Pertinent Medications Outpatient Anti-diabetic Regimen: * basaglar 60 units BID, Ademlog 7 units for low carb meal/20 units for higher carb meal + additional insulin when BG is elevated, Metformin XR 2000mg AM daily, on ozempic until two weeks ago- to be starting trulicity * A1c = 11.8 % 10/25 The patient is currently receiving: * Insulin infusion Risk Factors for Insulin Resistance: * Steroids: * Infection: * Pressors: * IVF: * Recent Surgery * Diet: T2DM * Mechanical Ventilation: - Assessment & Plan Assessment & Plan: ASSESSMENT: * 49 year old female admitted with complaints of intermittent hyperglycemia for past 3 weeks, BSG on arrival 746 mg/dL. * Patient started on insulin infusion, blood sugars down to goal range this morning, discussed with provider transition off of drip. * Patient received 60 units of lantus last evening in addition to insulin drip- drip running @ average 2.8 units/hr for previous 12 hours (most of which was fasting 8pm to 8AM, did have snack in pm) therefore estimate basal needs ~127 units (this would calculate a regimen of lantus 64 units BID and correction factor/carb ratio 5/2). Weight based stress of 3 regimen would be lantus 25 units bid CF/CR 15/5- patient was being dosed with carb ratio of 3 for snack * Transitioned off on drip with 60 units of lantus but loosened CF/CR to 12/6 as BSGs were trending down 92 at lunch (insulin drip stopped an hour prior) * Will continue to monitor PLAN FOR INPATIENT GLYCEMIC CONTROL: * Holding outpatient oral diabetes medications * Basal insulin * Lantus 60 units SQ qAM * Lantus scale for PM up to home dose of 60 * Bolus insulin * NovoLog per scale ACHS or Q6hrs while NPO * Goal Range: Low 110 mg/dL - High 140 mg/dL * Correction Factor: 12 mg/dL/unit * Nutritional / Prandial insulin per carb ratio of 1 unit per 6 grams CHO consumed * Please note that the plan above was derived based on current level of insulin resistance and hospital stress. These recommendations are appropriate for inpatient admission only. Plan of care upon discharge will need to be reassessed to avoid potential outpatient hypo/hyperglycemia. Thank you.
--- NOTE | 2019-10-25 15:46 | Ultrasound Report ---
US pelvic complete, US transvaginal CLINICAL HISTORY: 49 years-old Female presenting with R sided abd pain; IUD present, placed 1 year ag o. TECHNIQUE: Real-time grayscale and color and spectral Doppler ultrasound imaging of the pelvis was pe rformed first using a transabdominal probe and subsequently transvaginal for better characterization. COMPARISON: None. FINDINGS: TRANSABDOMINAL: Transabdominal imaging was performed for a minimally invasive evaluation and to ensur e visualization of global pelvic findings. Bladder: Normal. Uterus: Grossly normal echogenicity and echotexture of the myometrium. Orientation: Anteverted. Size: 6.8 x 4.3 x 4.3 cm. Endometrial stripe thickness: Not measurable. Endometrium: Not well characterize d. Cervix: Not well visualized. Right adnexa: Right ovary: Not visualized. Left adnexa: Left ovary: Not visualized. Other: No large volume free fluid. ENDOVAGINAL: Endovaginal imaging was subsequently performed, which was necessitated by incomplete vis ualization of the adnexa, inability or suboptimal ability to perform spectral Doppler interrogation o f the ovaries, and suboptimal sonographic penetration of the deep pelvis. Uterus: Normal myometrial echogenicity and echotexture. Orientation: Anteverted. Endometrial stripe t hickness: 4 mm. Endometrium: Intrauterine device in place. Endometrium otherwise normal. Cervix: Norm al. Right adnexa: Right ovary: Normal. Normal color Doppler flow and arterial and venous waveforms within the ovarian parenchyma. Right ovary size: 2.7 x 1.5 x 2.7 cm. Left adnexa: Left ovary: Normal. Normal color Doppler flow and arterial and venous waveforms within t he ovarian parenchyma. Left ovary size: 2.6 x 2.6 x 1.8 cm. Other: Trace free fluid, likely physiologic. IMPRESSION: 1. IUD in place. 2. Otherwise normal examination. No ovarian torsion. ACT 112: Negative or not required by law. Electronically signed by: Pool Torres M.D. 10/25/2019 3:45 PM
--- NOTE | 2019-10-25 18:43 | Hospitalist Progress Note ---
Date of Service October 25, 2019 Assessment & Plan (1) Hyperglycemia: - In setting of T2DM - diagnosed December 2018 - A1c 11.8 -- Possibly complicated by medication adjustments due to insurance coverage - She has been off Ozempic and is switching to Trulicity which has not been started yet but she reports was sent to her pharmacy - Hold oral regimen; initiated on insulin gtt on admission but has been transitioned off - appreciate glycemic management - Appreciate field checker consult/pharmacy consult - patient is working on lifestyle changes and has lost weight - Discussed with PCP - and will formulate a D/C plan to help control glucose until seen by endocrinology (2) Dehydration: - Related to elevated BSGs and possibly some related to recent gastroenterities symptoms (3) Acidosis, lactic: - Possibly in setting of hyperglycemia/dehydration - repeat is 1.4 - Infectious etiology not suspected -can check procal in AM given abdominal pain (4) Right sided abdominal pain: - Rather constant pain x 3 weeks - no acute etiology identified - CT without acute findings; U/S transvaginal unremarkable - no specific gyne symptoms but does report frequent yeast infections likely due to sugars -- Did review CT with there is a decent amount of stool on imaging which may be contributing to her pain. She does reporting having a GI bug recently and using imodium to help symptoms - did discuss laxatives but she would like to do this at home as she does have Colace. She is still moving her bowels and no signs of obstruction and this can be continued at home. - Tramadol PRN - H/O opiate abuse and patient is very honest about this previous issue (5) Opioid abuse: - H/O - patient is honest about this and is having pain but not seeking; Tramadol PRN - did discus in regards to constipation (6) Liver cirrhosis: - Noted on imaging - unknown prior workup - Possibly PINON? - no acute decompensation and this can be further monitored/managed by PCP (7) DVT prophylaxis: Heparin SC Disposition: If glucose controlled likely D/C tomorrow with adjusted regimen and PCP F/U; Endocrinology F/U already established Subjective Reports feeling better today. Did have some fatigue and ill-feeling when sugars came down to 90 but feeling better through the day. Continues to have this R sided abd. pain. No known etiology but did discuss possibility of stool causing some of the issues. She did have a recent GI illness and was using Imodium which did stop the diarrhea. Possibly now having constipation related issues and given her H/O surgeries maybe some adhesional components. She verbalizes no other complaints at this time. Review of Systems Constitutional: + fatigue; no fever, no chills and no anorexia Eyes: no worsening vision Ear, Nose, Mouth, Throat: no sore throat and no dysphagia Respiratory: no cough and no dyspnea Cardiovascular: no chest pain, no palpitations, no lightheadedness, no edema and no calf pain Gastrointestinal: + abdominal pain; no nausea, no vomiting, no constipation and no diarrhea/loose stools Genitourinary: no dysuria Integumentary: no rash Physical Exam Constitutional: WD/WN, vitals as above Eyes: + anicteric sclerae ENMT: Ears: no hearing impairment Neck: trachea midline Respiratory: normal respiratory effort, lungs clear to auscultation Cardiovascular: Rate/Rhythm: regular rate and regular rhythm Gastrointestinal (Abdomen): Inspection/Auscultation: normal bowel sounds Percussion/Palpation: + abdomen tender (R mid-abdomen with deep palpation) and abdomen soft; no guarding and abdomen not rigid Skin: no rashes, warm and dry Psychiatric: A+Ox3, euthymic affect Results & Data Vital Signs (Past 12 Hours) Vital Signs Temp Pulse Resp BP BP Pulse Ox 10/25/19 10:58 36.6 C 68 20 112/74 96 10/25/19 07:17 36.6 C 60 18 108/70 96 PG Care Time/CCT Total # of Minutes Spent Total Time Spent with Patient: Total time spent is greater than 50% in coordination of care (as documented) at patient's floor/unit and/or counseling patient: (1) Liver cirrhosis Hepatic cirrhosis type: unspecified hepatic cirrhosis
[2019-10-25] MEDS: TRAZODONE HCL 100 MG TAB PO SCH (20:20)
[2019-10-25] MEDS: TRAMADOL HCL 50 MG TABLET PO PRN (20:24)
[2019-10-26] MEDS: TRAMADOL HCL 50 MG TABLET PO PRN ×3 (00:44→12:40)
[2019-10-26] MEDS: HEPARIN SOD 5,000 UNIT/0.5 ML VIAL SQ SCH ×2 (05:44→13:14)
[2019-10-26 06:02] LABS: Hematocrit (blood only) 39.2 % (37-47); Hemoglobin 13.3 g/dL (12.0-16.0); Mean Corpuscular Hemoglobin 31.9 pg (25-34); Mean Corpuscular Hgb Conc 33.9 g/dL (32-36); Mean Platelet Volume 11.8 fL (7.4-10.4); Platelet Count 102 K/uL (130-400); RDW Coefficient of Variation 14.2 % (11.5-14.5); RDW Standard Deviation 48.5 fL (36.4-46.3); Red Blood Count 4.17 M/uL (4.2-5.4); White Blood Count 5.78 K/uL (4.8-10.8)
[2019-10-26 06:29] LABS: BUN Creatinine Ratio 12.1 (10-20); Calcium 8.6 mg/dl (8.5-10.1); Creatinine Clr Calc Pharmacy 140.7 ml/min; Est GFR (African American) 123.7; Est GFR (Non-African American) 106.7; Potassium 3.2 mmol/L (3.5-5.1)
[2019-10-26] MEDS ORDERED: INSULIN GLARGINE SOLOSTAR 100 UNITS/ML 3 ML PEN SC ONE ×2 (08:45→21:00)
[2019-10-26] MEDS ORDERED: POTASSIUM CHLORIDE 20 MEQ TABCR PO STA (08:47)
[2019-10-26] MEDS: [UNRECOGNIZED DRUG - OTHER] SCH (08:52)
[2019-10-26] MEDS: GABAPENTIN 600 MG TAB PO SCH ×2 (08:52→13:55)
[2019-10-26] MEDS: FLUTICASONE/VILANTEROL 100/25MCG 14 PUFFS/INHALER INH SCH (08:52)
[2019-10-26] MEDS: NYSTATIN POWDER 15GM BTL EXT SCH ×2 (08:59→12:41)
[2019-10-26] MEDS: INSULIN ASPART 100 UNITS/ML 3 ML PEN SC SCH ×2 (09:00→13:18)
--- NOTE | 2019-10-26 11:57 | Pharmacy Report ---
Pharmacy Glycemic Short Note 2 - Date of Service October 26, 2019 - Glycemic Short BSG Results (Last 24 hours): 10/25/19 10/25/19 10/25/19 12:16 16:20 20:29 Glucose POC Glucose 92 208 H 307 H* 10/25/19 10/25/19 10/26/19 20:30 20:43 05:40 Glucose 274 H 231 H POC Glucose 249 H 10/26/19 10/26/19 07:49 11:27 Glucose POC Glucose 250 H 245 H ASSESSMENT: * 49 year old female admitted with complaints of intermittent hyperglycemia for past 3 weeks, BSG on arrival 746 mg/dL. * Patient started on insulin infusion, blood sugars down to goal range this morning, discussed with provider transition off of drip. * Patient received 60 units of lantus last evening in addition to insulin drip- drip running @ average 2.8 units/hr for previous 12 hours (most of which was fasting 8pm to 8AM, did have snack in pm) therefore estimate basal needs ~127 units (this would calculate a regimen of lantus 64 units BID and correction factor/carb ratio 5/2). Weight based stress of 3 regimen would be lantus 25 units bid CF/CR 15/5- patient was being dosed with carb ratio of 3 for snack * Transitioned off on drip with 60 units of lantus but loosened CF/CR to 12/6 as BSGs were trending down 92 at lunch (insulin drip stopped an hour prior) * Will continue to monitor 10/26: * Fasting BSG this morning remains elevated at 231 mg/dL - currently insulin regimen heavily basal weighted. Hesitant to give more basal at this time, how ever will plan to tighten novolog so that insulin more of 50/50 split * Did adjust CR this morning, however still at lunch time BSG remains unchanged therefore adjusted CF/CR to 10/3. Per conservation educator patient reports previously being on similar parameters for bolus insulin * Will plan to add Lantus HS per scale for tonight PLAN FOR INPATIENT GLYCEMIC CONTROL: * Holding outpatient oral diabetes medications * Basal insulin * Lantus 60 units SQ qAM * Lantus scale for PM up to home dose of 60 * Bolus insulin - tighten * NovoLog per scale ACHS or Q6hrs while NPO * Goal Range: Low 110 mg/dL - High 140 mg/dL * Correction Factor: 10 mg/dL/unit * Nutritional / Prandial insulin per carb ratio of 1 unit per 3 grams CHO consumed * Please note that the plan above was derived based on current level of insulin resistance and hospital stress. These recommendations are appropriate for inpatient admission only. Plan of care upon discharge will need to be reassessed to avoid potential outpatient hypo/hyperglycemia. Thank you. PLAN FOR DISCHARGE: * to be determined - with elevated A1C on admission would recommend titration of insulin at discharge
--- NOTE | 2019-10-26 14:44 | Discharge Summary ---
Date of Service October 26, 2019 Admission HPI Per Admitting Provider Elza Vick is a 49 year old female patient with type 2 diabetes mellitus, hypertension, chronic back pain, COPD, left leg pain, prior PE, morbid obesity, who presented to [facility] due to ongoing hyperglycemia for the last 3 weeks. Her blood glucose was over 600mg/dL this morning. She denies any dizziness, chest pain, cough, fevers, chills, urinary symptoms or change in mental status. In the ER her glucose level was > 600. She reports no changes in the way she is taking her insulin or her diet. However recently her GLP-1 was stopped by her insurance and she is due to start Ozempic in the near future. In addition she is concerned about right lower quadrant abdominal pain. Present for three weeks. She reports she has had extensive prior workup of this and no cause could be found. Requesting morphine that she was given in the ER while in hospital to keep it under control because pain is 8/10 at present although patient was noted to be resting in bed looking relatively comfortable. Un fortunately outpatient report from September is in preliminary state and does not include A&P as to this right abdominal pain. She was diagnosed with a UTI on a prior visit. Principal Diagnosis Hyperglycemia; Abdominal Pain (Unknown Etiology) Discharge Exam Constitutional WD/WN, vitals as above no acute distress and not ill appearing Eyes + anicteric sclerae ENMT Ears: no hearing impairment Neck trachea midline Respiratory normal respiratory effort, lungs clear to auscultation Cardiovascular RRR, no murmur, no edema Gastrointestinal (Abdomen) Inspection/Auscultation: normal bowel sounds Percussion/Palpation: abdomen soft; abdomen nontender, no guarding and abdomen not rigid Musculoskeletal Head/Neck/Chest: normocephalic and head atraumatic Skin no rashes, warm and dry Neurologic moves all extremities Psychiatric A+Ox3, euthymic affect Discharge Data Allergies Allergy/AdvReac Type Severity Reaction Status Date / Time cephalexin AdvReac Severe Vomiting Unverified 10/24/19 14:35 levofloxacin [From Levaquin] AdvReac Vomiting Verified 10/24/19 14:35 Consultations 10/24/19 15:06 ED Decision to Admit Stat Ordered Studies 10/24/19 12:42 CT abd pelvis IV con only Stat 10/25/19 13:32 US pelvic complete Routine US transvaginal Routine Hospital Course (1) Hyperglycemia: - In setting of T2DM - diagnosed December 2018 - A1c 11.8 -- Possibly complicated by medication adjustments due to insurance coverage - She has been off Ozempic and is switching to Trulicity which has not been started yet but she reports was sent to her pharmacy - Initially started insulin gtt on admission and was converted to injections - Current plan is to start Trulicity as previously prescribed. Recommended her to continue to check her sugars as she has been. Maybe the Trulicity will give added benefit. Did discuss considering Increasing Basaglar to 65 units BID from her 60 units. Continue SSI and use her parameters given by her PCP for further elevations. Did not want to make drastic changes given addition of Trulicity. Given her A1c her average sugars are 290 - She has an appointment on 11/02 with Endocrinology (2) Dehydration: - Related to elevated BSGs and possibly some related to recent gastroenteritis symptoms (3) Acidosis, lactic: - Possibly in setting of hyperglycemia/dehydration - repeat is 1.4 - Infectious etiology not suspected - procal normal (4) Right sided abdominal pain: - Rather constant pain x 3 weeks - no acute etiology identified - CT without acute findings; U/S transvaginal unremarkable - no specific gyne symptoms but does report frequent yeast infections likely due to sugars -- Did review CT which there is a decent amount of stool on imaging which may be contributing to her pain. She does reporting having a GI bug recently and using imodium to help symptoms - did discuss laxatives but she would like to do this at home as she does have Colace. She is still moving her bowels and no signs of obstruction. Discussed good fiber intake to assist with good bowel regimen. R sided pain is reduced today and she did move her bowels so possibly related - Today her discomfort seems to be more located to her ventrall hernia which was repaired approx. 1 year ago. No signs of strangulation. Consider re-eval by Gen Surg (Dr. Kate) to see if repair/revision is necessary -- CT does reveal a small recurrent umbilical hernia (5) Opioid abuse: - H/O - patient is honest about this and is having pain but not seeking (6) Liver cirrhosis: - Noted on imaging - unknown prior workup - Possibly PINON? - no acute decompensation and this can be further monitored/managed by PCP (7) DVT prophylaxis: Heparin SC Disposition: Endocrine and PCP F/U Total Time Total Time Spent Total Time Spent (In Minutes): Greater than 30 minutes Discharge Plan Discharge Items Patient Disposition: Home - Self-Care Reason For Visit: HYPERGLYCEMIA, HYPONATREMIA Discharge Diagnosis: High Blood Sugar Activity: Resume your previous activity Non-emergency contact: Primary Care Provider Call non-emergency contact if: you have any medication questions, your symptoms worsen and you have a fever Follow-up/Referrals: Aneudy Pérez MD [Primary Care Provider] - Diet: Carb Consistent or DM2 Addtl Attending Provider Instructions: High Sugar with Diabetes: - You were admitted for higher sugars. These have been running high for awhile and your A1c 11.8 which means your average sugar is 290. - Recommend to start your Trulicity as previously discussed with your family doctor. You will need to see how your sugars run with this medication because you may get a better result while on this medication. Start with the dose that was sent to your pharmacy. - Continue your home regimen. If your sugars are still running high then consider increasing your Basaglar (long acting insulin) to 65 units twice a day. Continue to follow with your family doc and the protocol he has been using for you - Once you see Endocrinology they may have a new regimen for you and will need to further adjust -- Given that you are seeing Endocrine soon. Would recommend keeping a log of your sugars to take to that appointment - Continue to do what you are doing to lose weight. You are doing a great job with this. Ultimately this can help control those sugars even more. Abdominal Pain: - At this point we do not have a specific cause of the pain. Thankfully you do not have a fever or an elevated white count and that is reassuring. - There is stool on your CAT scan and it is possible this could be some constipation related due to needing to use Imodium during your recent GI bug - Recommend to continue your Colace at home for a few days. Using fiber like Metamucil may help produce good/regular bowel movements. If this improves your pain then that is great. - In regards to your hernia site, it may be best to have a follow-up with your surgeon to see if further repair is necessary. Pending Studies at Discharge: No Stand-Alone Forms: My [facility], Smoking Cessation Medications and DC Order Prescriptions: Continued cyclobenzaprine 10 mg Tablet 10 mg PO BID PRN (Reason: Muscle Spasm) Qty: 0 RF: 0 gabapentin 600 mg Tablet 1,200 mg PO TID Qty: 0 RF: 0 albuterol sulfate [Ventolin HFA] 90 mcg/actuation Hfa Aerosol Inhaler 2 puff INHALATION Q6H PRN (Reason: Shortness Of Breath) Qty: 0 RF: 0 diclofenac sodium [Voltaren] 1 % gel 4 g EXT QID PRN (Reason: Pain) RF: 0 Basaglar KwikPen U-100 Insulin 100 unit/mL (3 mL) insulin pen 60 units SQ AMPM RF: 0 rizatriptan 5 mg tablet 5 mg PO UD PRN (Reason: Migraine Headache) RF: 0 insulin lispro [Admelog SoloStar U-100 Insulin] 100 unit/mL insulin pen 0 unit subcut DIRECTED RF: 0 metformin 1,000 mg tablet extended release 24hr 2,000 mg PO QAM RF: 0 Excedrin Tension Headache 500-65 mg Tablet 1 tab PO Q12H PRN (Reason: Migraine Headache) RF: 0 trazodone 100 mg tablet 100 mg PO HS RF: 0 nystatin 100,000 unit/gram powder 1 applic TOPICAL UD RF: 0 clindamycin phosphate 1 % lotion 1 applic TOPICAL QAM RF: 0 Breo Ellipta 100-25 mcg/dose blister with device 1 inh INHALATION QAM RF: 0 fluticasone propion-salmeterol 232-14 mcg/actuation aerosol powdr breath activated 1 puff INHALATION BID RF: 0 ibuprofen 800 mg tablet 800 mg PO TID PRN (Reason: Pain) RF: 0 promethazine 25 mg tablet 25 mg PO Q6H PRN (Reason: Nausea) RF: 0 Trulicity 0.75 mg/0.5 mL Pen Injector SUBCUT RF: 0 Discontinued Ozempic 0.25 mg or 0.5 mg(2 mg/1.5 mL) pen injector 0 mg SUBCUT UD RF: 0 Discharge Orders: Discharge Order (Routine); Ordered 10/26/19 Ordered By: Vivian Rhodes Admission Data Admit Date/Time: 10/24/19 15:23 Attending Provider: Gerard Park Admit Provider: Gerard Park Primary Care Provider: Aneudy Pérez Other Providers: Gerard Park Other Interventions: Discharge Summary Assessment (RN) Last Done: 10/26/19 10:42 DC Date/Time DO NOT enter until pt leaves facility: 10/26/19 14:32
[2019-10-27] MEDS ORDERED: INSULIN ASPART 100 UNITS/ML 3 ML PEN SC SCH
== END 2019-10-26 14:32 | disposition home or self-care (01) | DRG 638 ==
LOC: ED 12:01 → INTOOBSV 15:23 → 2S 15:23 → 4W 10-25 15:48

== ENCOUNTER 2020-02-08 16:03 | Inpatient (IN) ==
--- NOTE | 2020-02-08 16:22 | Emergency Department Note ---
History of Present Illness General Chief complaint: Dental/Oral Stated complaint: Dental Pain Time Seen by Provider: 02/08/20 16:11 Source: patient Mode of arrival: EMS History of Present Illness Onset (ago): day(s) 2 Location: face and right Severity: severe Pain Consistency: + constant Maximum Pain Intensity: 9 Relieved By: + none Treatments prior to arrival: other (Percocet) This is a 49-year-old female with diabetes presenting with facial pain on the right side. She stated that her right mandibular molar started bothering her 2 days ago. Since then she has had worsening facial pain and has not been able to sleep for the past 2 days. She has been taking her Percocet which she has for a hernia. She has not been getting sufficient pain control. She was seen by her doctor via telehealth and placed on Augmentin yesterday which she started. She states that her doctor told her that if she is not getting better to come to the hospital. She does have an appointment to see an oral surgeon on February 20. He denies any fever or vomiting. She has had no cough or cold symptoms. She is able to swallow liquids. She has had poor dentition in that area for months. She does state that she has had elevated blood sugars recently and her sugar was 300 today. Home Medications Home Medications Medication Instructions Recorded Confirmed Type cyclobenzaprine 10 mg PO BID PRN #0 11/18/17 02/08/20 History gabapentin 1,200 mg PO TID #0 tab 11/18/17 02/08/20 History albuterol sulfate [Ventolin HFA] 2 puff INHALATION Q4H PRN #0 02/10/18 02/08/20 History diclofenac sodium [Voltaren] 4 g TOPICAL QID PRN 01/05/19 02/08/20 History rizatriptan 5 mg PO DIRECTED PRN 06/16/19 02/08/20 History ibuprofen 800 mg PO TID PRN 10/24/19 02/08/20 History nystatin 1 applic TOPICAL DIRECTED 10/24/19 02/08/20 History promethazine 25 mg PO Q6H PRN 10/24/19 02/08/20 History fluticasone propion-salmeterol 1 puff INHALATION BID 10/29/19 02/08/20 History insulin aspart U-100 [Novolog See Rx Instructions .ROUTE .COMPLEX 10/29/19 02/08/20 History Flexpen U-100 Insulin] insulin glargine [Lantus Solostar 65 unit SUBCUT BID 10/29/19 02/08/20 History U-100 Insulin] OneTouch Delica Plus Lancet 33 #180 ea NS 11/02/19 11/07/19 Rx gauge OneTouch Verio #150 ea NS 11/05/19 11/07/19 Rx Trulicity 0.75 mg/0.5 mL 0.75 mg SQ WEEKLY #4 pen NS 12/11/19 02/08/20 Rx subcutaneous pen injector amoxicillin-pot clavulanate 1 tab PO BID 02/08/20 02/08/20 History [Augmentin] budesonide-formoterol [Symbicort] 2 puff INHALATION BID 02/08/20 02/08/20 History Allergies Allergy/AdvReac Type Severity Reaction Status Date / Time cephalexin AdvReac Severe Vomiting Verified 02/08/20 19:30 levofloxacin [From Levaquin] AdvReac Vomiting Verified 02/08/20 19:30 Past Med/Surg History Medical History Anxiety Brain cyst Chronic low back pain with left-sided sciatica Chronic obstructive pulmonary disease Depression Hypertension (Chronic) Hypertension Insulin dependent diabetes mellitus (Chronic) Obesity Pulmonary embolism Uncontrolled type 2 diabetes mellitus (Chronic) Surgical History History of laparoscopic cholecystectomy S/P laparoscopic hernia repair Family History Mother , 73 Heart disease Cancer Father Skin cancer Brother No problems noted. Sister No problems noted. Grandmother (Maternal) , 48 Heart disease T2DM (type 2 diabetes mellitus) Grandmother (Paternal) , 83 Heart disease Kidney disease Uncle T2DM (type 2 diabetes mellitus) Other Diabetes Obesity Social History Preferred Language: [place] Communication Ability: Effective Visual Impairment: No Limitations At Home Independent Call Center Agent Required: No Beliefs That Will Affect Care: None marital status: Current Living Situation: Family Current Living Situation Comment: lives with 13 year old daughter Other Information That Helps Us Care for You: No Feels Safe at Home: Yes Safety Concerns: Feels Safe At This Time Smoking Status: Current every day smoker Tobacco Type: cigarettes ; Cigarettes Per Day: 5 ; Second Hand Exposure: Yes ; Hx Alcohol Use: No Hx Substance Use: No Review of Systems See HPI for pertinent positives & negatives. and A total of 10 systems reviewed and were otherwise negative Physical Exam Vital Signs Vital Signs - 24 hr 02/08/20 16:04 02/08/20 18:01 02/08/20 18:51 Temperature 37.1 C Temperature Source Oral Pulse Rate 111 H Pulse Rate [Apical] 95 H 90 Pulse Rhythm Regular Pulse Strength Normal Respiratory Rate 19 18 18 Respiratory Effort / Characteristics Non-Labored Respiratory Depth Normal Respiratory Pattern Regular Blood Pressure 137/99 Blood Pressure [Left Arm] 140/70 142/87 H Blood Pressure Mean 111 Blood Pressure Mean [Left Arm] 93 105 Blood Pressure Position Sitting Pulse Oximetry 97 98 98 Oxygen Delivery Method Room Air Room Air Room Air Sepsis Recent Fever Within 48 Hours No Sepsis Action Taken by Nursing No Action Required Constitutional: Vital signs reviewed. Eyes: Pupils are equal round reactive to light. Conjunctiva are noninjected. ENT: Pharynx is clear without erythema or exudate. Mucous membranes are moist. Significantly decayed remnants of a tooth on the right mandibular jaw. There is some swelling to the gingiva without drainage. There is percussion tenderness. Swelling to the right face without tenderness over the parotid gland. No elevation of the tongue or submental swelling or firmness. Neck supple without meningeal signs. Respiratory: Clear to auscultation bilaterally. Breath sounds are equal bilaterally. Cardiovascular: Tachycardic. Regular rhythm. Heart rate 111 GI: Soft, nondistended and nontender. Bowel sounds are present. Musculoskeletal: No peripheral edema. No lower extremity tenderness. Integumentary: No cyanosis. or jaundice. Neurological: The patient is awake and alert. No focal deficits. Psychiatric: Normal affect. Not anxious appearing. Course Administered Medications Ioversol (Optiray 320 100ml) 95 ml IV ONCE PRN PRN Reason: Interaction Checking Stop: 02/12/20 18:42 Last Admin: 02/08/20 18:44 Dose: 95 ml Documented by: [id number] Discontinued Medications Hydromorphone HCl (Dilaudid) 0.5 mg IV NOW STA Stop: 02/08/20 17:07 Last Admin: 02/08/20 17:28 Dose: 0.5 mg Documented by: [id number] Ampicillin Sodium/Sulbactam Sodium 3,000 mg/ Sodium Chloride 108 mls @ 200 mls/hr IV NOW STA; Protocol Stop: 02/08/20 17:38 Last Infusion: 02/08/20 18:57 Dose: 0 mls/hr Documented by: [id number] Admin: 02/08/20 17:52 Dose: 200 mls/hr Documented by: [id number] Ondansetron HCl (Zofran) 4 mg IV NOW STA Stop: 02/08/20 17:07 Last Admin: 02/08/20 17:28 Dose: 4 mg Documented by: [id number] Medical Decision Making Differential Diagnosis Periapical abscess, sialoadenitis, Ludewig's angina, facial cellulitis, sialolithiasis Medical Records Attestation: I reviewed the patient's medical records. I did perform a limited focused review of portions of the patient's old chart on the electronic medical record. The patient has had no recent pertinent visits to this hospital. Home Medications Current Medication List: was personally reviewed by me Laboratory Data Attestation: I reviewed the patient's lab results. Result diagrams: 02/08/20 17:33 02/08/20 17:33 Lab Results 02/08/20 02/08/20 02/08/20 Range/Units 17:33 17:33 17:33 WBC 14.05 H (4.8-10.8) K/uL RBC 4.80 (4.2-5.4) M/uL Hgb 15.5 (12.0-16.0) g/dL Hct 44.1 (37-47) % MCV 91.9 (80-100) fL MCH 32.3 (25-34) pg MCHC 35.1 (32-36) g/dL RDW Std Deviation 52.1 H (36.4-46.3) fL RDW Coeff of Kelli 15.4 H (11.5-14.5) % Plt Count 164 (130-400) K/uL MPV 11.3 H (7.4-10.4) fL Immature Gran % (Auto) 0.2 % Neut % (Auto) 81.4 % Lymph % (Auto) 12.5 % [place]lette % (Auto) 4.9 % Eos % (Auto) 0.9 % Baso % (Auto) 0.1 % Immature Gran # (Auto) 0.03 H (0.00-0.02) K/uL Neut # (Auto) 11.43 H (1.4-6.5) K/uL Lymph # (Auto) 1.75 (1.2-3.4) K/uL [place]lette # (Auto) 0.69 H (0.11-0.59) K/uL Eos # (Auto) 0.13 (0-0.5) K/uL Baso # (Auto) 0.02 (0-0.2) K/uL PT 11.9 (9.0-12.0) Seconds INR 1.1 (0.9-1.1) APTT 28.5 (21.0-31.0) Seconds PTT Ratio 1.0 Sodium 135 L (136-145) mmol/L Potassium 3.8 (3.5-5.1) mmol/L Chloride 108 H (98-107) mmol/L Carbon Dioxide 19 L (21-32) mmol/L Anion Gap 8.0 (3-11) BUN 9 (7-18) mg/dl Creatinine 0.87 (0.6-1.2) mg/dl Est Cr Clr Drug Dosing 99.1 ml/min Est GFR ( Amer) 89.4 Est GFR (Non-Af Amer) 77.1 BUN/Creatinine Ratio 10.2 (10-20) Glucose 306 H* (70-99) mg/dl Calcium 9.1 (8.5-10.1) mg/dl Total Bilirubin 0.6 (0.2-1) mg/dl AST 7 L (15-37) U/L ALT 19 (12-78) U/L Alkaline Phosphatase 127 H (45-117) U/L Total Protein 8.0 (6.4-8.2) gm/dl Albumin 3.4 (3.4-5.0) gm/dl Globulin 4.6 H (2.5-4.0) gm/dl Albumin/Globulin Ratio 0.7 L (0.9-2) Beta-Hydroxybutyric Acd 2.15 (0.2-2.81) mg/dl Imaging Data Radiologist's Impression: CT OF THE NECK WITH IV CONTRAST CLINICAL HISTORY: Right-sided swelling. Evaluate for abscess. COMPARISON STUDY: CTA of the neck August 26, 2018. TECHNIQUE: Following IV administration of 95 mL of Optiray-320, helical axial images of the neck were obtained. Sagittal and coronal reconstructions were viewed. Automated exposure control was utilized for the study. A dose lowering technique was utilized adhering to the principles of ALARA. CT DOSE: 415.15 mGycm FINDINGS: Visualized portions of the intracranial contents are unremarkable. Major vasculature of the neck is patent. Lung apices are clear. Mildly enlarged right-sided cervical lymph nodes are reactive. Note is made of a periapical abscess of a right mandibular molar with associated cortical disruption. There is an adjacent rim-enhancing fluid collection that measures 1.2 x 0.7 cm along the inferior medial aspect of the right hemimandible. There is moderate adjacent infiltration. The airway is patent. Epiglottis is normal. Multiple additional periapical lucencies/abscesses are noted. Several teeth are absent. No cervical spine fracture is noted. IMPRESSION: 1. Periapical abscess of a right mandibular molar with an adjacent 1.2 x 0.7 cm abscess. Moderate adjacent inflammation consistent with cellulitis. No additional abscesses. No airway narrowing. 2. Multiple additional periapical cysts/abscesses. ACT 112: Negative or not required by law. Electronically signed by: Dani Cardona M.D. 02/08/2020 7:05 PM Blood Pressure Blood Pressure Findings: Elevated blood pressure Blood Pressure Disposition: Referred to patients primary care provider [facility] Narrative I did evaluate the patient as noted above. The patient is presenting with what appears to be a dental abscess. I did explain to her that I would call an oral surgeon to see if they can help her. She got very angry and stated that she could not pay for it and that her doctor sent her here to get this fixed and that she has an appointment on the to see an oral surgeon in [place]. I went ahead and called Dr. Pérez who was in agreement with my assessment and felt that she needed an oral surgeon. I did call Dr. Vahe Rios who agreed to see the patient in the ED. I explained this to the patient and she was amenable to the consultation in the ED. He did assess her and felt that the patient should be admitted due to her elevated blood sugars at home and dental abscess. He recommends incision and drainage potentially in 2 days. He recommended hospitalization by the medical team. He also recommended a CT scan. IV access was established. I did treat the patient with Unasyn IV. She was also given Dilaudid and Zofran IV. I did order and review the patient's blood work as noted in the electronic medical record. Her white count is elevated. She has hyperglycemia. I did order a CT of the soft tissue neck. I did review the images myself as well as the radiology report as described above. She has a kika-apical abscess of the right mandibular molar with an adjacent abscess and moderate inflammation consistent with cellulitis. I did discuss the case with the hospitalist and home health care case manager. Impression & Plan Cellulitis and abscess of face, Acute hyperglycemia Discharge Plan Visit Data Chief Complaint: Dental/Oral Stated Complaint: Dental Pain ED Provider: Que King Discharge Problem: Cellulitis and abscess of face, Acute hyperglycemia Patient Disposition: Being Evaluated by Hospitalist Condition: Good Discharge Instructions Interventions: ED Discharge Assessment Last Done: 02/08/20 19:01 Forms Stand Alone Forms: My [facility] Prescriptions Prescriptions: No Action cyclobenzaprine 10 mg Tablet 10 mg PO BID PRN (Reason: Muscle Spasm) Qty: 0 RF: 0 gabapentin 600 mg Tablet 1,200 mg PO TID Qty: 0 RF: 0 albuterol sulfate [Ventolin HFA] 90 mcg/actuation Hfa Aerosol Inhaler 2 puff INHALATION Q4H PRN (Reason: Shortness Of Breath Or Wheezing) Qty: 0 RF: 0 (DME) OneTouch Verio Strip See Rx Instructions .ROUTE .MEDSUPPLY Qty: 150 RF: 5 Trulicity 0.75 mg/0.5 mL pen injector 0.75 mg SQ WEEKLY Qty: 4 RF: 5 (DME) lancets [OneTouch Delica Plus Lancet] 33 gauge misc See Rx Instructions .ROUTE .MEDSUPPLY Qty: 180 RF: 5 diclofenac sodium [Voltaren] 1 % gel 4 g topical QID PRN (Reason: Pain) RF: 0 rizatriptan 5 mg tablet 5 mg PO DIRECTED PRN (Reason: Migraine Headache) RF: 0 nystatin 100,000 unit/gram powder 1 applic TOPICAL DIRECTED RF: 0 ibuprofen 800 mg tablet 800 mg PO TID PRN (Reason: Pain) RF: 0 promethazine 25 mg tablet 25 mg PO Q6H PRN (Reason: Nausea) RF: 0 insulin aspart U-100 [Novolog Flexpen U-100 Insulin] 100 unit/mL (3 mL) insulin pen See Rx Instructions .ROUTE .COMPLEX RF: 0 Lantus Solostar U-100 Insulin 100 unit/mL (3 mL) insulin pen 65 unit SUBCUT BID RF: 0 fluticasone propion-salmeterol 232-14 mcg/actuation aerosol powdr breath activated 1 puff inhalation BID RF: 0 amoxicillin-pot clavulanate [Augmentin] 875-125 mg tablet 1 tab PO BID RF: 0 budesonide-formoterol [Symbicort] 160-4.5 mcg/actuation HFA aerosol inhaler 2 puff INHALATION BID RF: 0 Referrals Referrals: Aneudy Pérez MD [Primary Care Provider] -
[2020-02-08] MEDS ORDERED: AMPICILLIN/SULBACTAM SOD 3,000 MG in 0.9 % SODIUM CHLORIDE 100 ML IV STA (17:06)
[2020-02-08] MEDS ORDERED: ONDANSETRON INJ 2 MG/ML 2 ML VIAL IV STA (17:06)
[2020-02-08] MEDS ORDERED: HYDROmorphone INJ 0.5 MG/0.5 ML SYR IV STA (17:06)
[2020-02-08 17:43] LABS: Basophils # (auto) 0.02 K/uL (0-0.2); Basophils % (auto) 0.1 %; Eosinophils # (auto) 0.13 K/uL (0-0.5); Eosinophils % (auto) 0.9 %; Hematocrit (blood only) 44.1 % (37-47); Hemoglobin 15.5 g/dL (12.0-16.0); Immature Granulocytes # (auto) 0.03 K/uL (0.00-0.02); Immature Granulocytes % (auto) 0.2 %; Lymphocytes # (auto) 1.75 K/uL (1.2-3.4); Lymphocytes % (auto) 12.5 %; Mean Corpuscular Hemoglobin 32.3 pg (25-34); Mean Corpuscular Hgb Conc 35.1 g/dL (32-36); Mean Corpuscular Volume 91.9 fL (80-100); Mean Platelet Volume 11.3 fL (7.4-10.4); Monocytes # (auto) 0.69 K/uL (0.11-0.59); Monocytes % (auto) 4.9 %; Neutrophils # (auto) 11.43 K/uL (1.4-6.5); Neutrophils % (auto) 81.4 %; Platelet Count 164 K/uL (130-400); RDW Coefficient of Variation 15.4 % (11.5-14.5); RDW Standard Deviation 52.1 fL (36.4-46.3); White Blood Count 14.05 K/uL (4.8-10.8)
[2020-02-08 17:51] LABS: INR 1.1 (0.9-1.1); Partial Thromboplastin Time 28.5 Seconds (21.0-31.0); Prothrombin Time 11.9 Seconds (9.0-12.0)
[2020-02-08 18:14] LABS: Albumin Globulin Ratio 0.7 (0.9-2); Albumin Level 3.4 gm/dl (3.4-5.0); BUN Creatinine Ratio 10.2 (10-20); Bilirubin,Total 0.6 mg/dl (0.2-1); Calcium 9.1 mg/dl (8.5-10.1); Creatinine Clr Calc Pharmacy 99.1 ml/min; Est GFR (African American) 89.4; Est GFR (Non-African American) 77.1; Globulin 4.6 gm/dl (2.5-4.0); Potassium 3.8 mmol/L (3.5-5.1)
[2020-02-08 18:30] LABS: Beta-Hydroxybutyrate 2.15 mg/dl (0.2-2.81)
--- NOTE | 2020-02-08 18:37 | History & Physical Report ---
Date of Service February 08, 2020 Assessment & Plan (1) Periapical abscess with facial involvement: Failed outpatient therapy with Augmentin Confirmed abscess on CT Unasyn IV 3g Q6H Prior history of opiate abuse noted although currently pathology warrants opiate pain relief. Use acetaminophen YEN (reduced max dose due to liver cirrhosis). Toradol 30mg Q6H PRN use preferentially to Dilaudid. She is medically cleared for surgery at this time. Minced and moist diet now, NPO after midnight for surgery tomorrow afternoon vs. possibly Tuesday as per Dr Rios (2) Uncontrolled type 2 diabetes mellitus: HbA1C 11.8 in October. Holding Trulicity (usually takes 0.75mg SQ) Did not take Lantus dose this morning. No Novolog in last 2 days as she reports not eating. Consult pharmacy for glycemic control with basal colus regimen T2DM diet (3) Opioid abuse: Noted history of this although ceratinly she has pathology consitent with her pain at present. Switch to oral medications as soon as possible after surgery. (4) Liver cirrhosis: Noted history of this. Reduced acetaminophen max dose. (5) DVT prophylaxis: SCDs History of Present Illness Chief Complaint: Facial pain Primary Care Provider: Aneudy Pérez MD Elza Vick is a 49 year old female with uncontrolled diabetes mellitus who presents to the ER with facial pain ongoing since Tuesday last week. She was started on Augmentin by her PCP. Despite this her pain worsened to the extent she is now finding it difficult to eat. Current pain severity 8/10 over right lower jaw. Associated increased swelling. No fevers but she has experienced chills. Currently not having any problems with her chronic knee and back pain. Allergies Allergy/AdvReac Type Severity Reaction Status Date / Time cephalexin AdvReac Severe Vomiting Verified 02/08/20 19:30 levofloxacin [From Levaquin] AdvReac Vomiting Verified 02/08/20 19:30 Home Medications Home Medications Medication Instructions Recorded Confirmed Type cyclobenzaprine 10 mg PO BID PRN #0 11/18/17 02/08/20 History gabapentin 1,200 mg PO TID #0 tab 11/18/17 02/08/20 History albuterol sulfate [Ventolin HFA] 2 puff INHALATION Q4H PRN #0 02/10/18 02/08/20 History diclofenac sodium [Voltaren] 4 g TOPICAL QID PRN 01/05/19 02/08/20 History rizatriptan 5 mg PO DIRECTED PRN 06/16/19 02/08/20 History ibuprofen 800 mg PO TID PRN 10/24/19 02/08/20 History nystatin 1 applic TOPICAL DIRECTED 10/24/19 02/08/20 History promethazine 25 mg PO Q6H PRN 10/24/19 02/08/20 History fluticasone propion-salmeterol 1 puff INHALATION BID 10/29/19 02/08/20 History insulin aspart U-100 [Novolog See Rx Instructions .ROUTE .COMPLEX 10/29/19 02/08/20 History Flexpen U-100 Insulin] insulin glargine [Lantus Solostar 65 unit SUBCUT BID 10/29/19 02/08/20 History U-100 Insulin] OneTouch Delica Plus Lancet 33 #180 ea NS 11/02/19 11/07/19 Rx gauge OneTouch Verio #150 ea NS 11/05/19 11/07/19 Rx Trulicity 0.75 mg/0.5 mL 0.75 mg SQ WEEKLY #4 pen NS 12/11/19 02/08/20 Rx subcutaneous pen injector amoxicillin-pot clavulanate 1 tab PO BID 02/08/20 02/08/20 History [Augmentin] budesonide-formoterol [Symbicort] 2 puff INHALATION BID 02/08/20 02/08/20 History Past Med/Surg History Medical History (Updated 02/08/20 @ 20:34 by Gerard Park MD) Anxiety Brain cyst Chronic low back pain with left-sided sciatica Chronic obstructive pulmonary disease Depression Hypertension (Chronic) Insulin dependent diabetes mellitus (Chronic) Obesity Pulmonary embolism Uncontrolled type 2 diabetes mellitus (Chronic) Surgical History History of laparoscopic cholecystectomy S/P laparoscopic hernia repair Family History Mother , 73 Heart disease Cancer Father Skin cancer Brother No problems noted. Sister No problems noted. 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 Required: No Beliefs That Will Affect Care: None marital status: Current Living Situation: Family Current Living Situation Comment: lives with 13 year old daughter Other Information That Helps Us Care for You: No Feels Safe at Home: Yes Safety Concerns: Feels Safe At This Time Smoking Status: Current every day smoker Tobacco Type: cigarettes ; Cigarettes Per Day: 5 ; Second Hand Exposure: Yes ; Hx Alcohol Use: No Hx Substance Use: No Review of Systems Review of Systems: All systems reviewed & are unremarkable except as noted in HPI & below Physical Exam Constitutional: well developed and + obese; no acute distress Eyes: + anicteric sclerae; normal pupil size ENMT: Ears: no external ear abnormality Nose: no external nose abnormality Mouth: + dental caries and + poor dentition (decayed, gingival swelling with tenderness on percussion over right lower j) Neck: trachea midline Respiratory: normal respiratory effort, lungs clear to auscultation Cardiovascular: RRR, no murmur, no edema Gastrointestinal (Abdomen): normal bowel sounds, soft, nontender, no h epatosplenomegaly Musculoskeletal: no cyanosis or clubbing, extremities motor strength 5/5 Skin: no rashes, warm and dry Neurologic: moves all extremities and awake; not confused Psychiatric: A+Ox3, euthymic affect Lymphatic: no cervical or axillary lymphadenopathy Results & Data Results & Data ([facility]) Vital Signs (Past 12 Hours) Vital Signs Temp Pulse Pulse Resp BP BP Pulse Ox 02/08/20 18:01 95 H 18 140/70 98 02/08/20 16:04 37.1 C 111 H 19 137/[address] OF THE NECK WITH IV CONTRAST IMPRESSION: 1. Periapical abscess of a right mandibular molar with an adjacent 1.2 x 0.7 cm abscess. Moderate adjacent inflammation consistent with cellulitis. No additional abscesses. No airway narrowing. 2. Multiple additional periapical cysts/abscesses. Code Status & VTE Plan Code Status Full VTE Prophylaxis Plan VTE Prophylaxis will be ordered: No PG Care Time/CCT Total # of Minutes Spent Total Time Spent with Patient: Total time spent is greater than 50% in coordination of care (as documented) at patient's floor/unit and/or counseling patient: Coding Level of Care Code 55388 Initial Inpt Care Lvl 2 Diagnoses Periapical abscess with facial involvement K04.7 Uncontrolled type 2 diabetes mellitus E11.65 Opioid abuse F11.10 Liver cirrhosis K74.60 Hepatic cirrhosis type: unspecified hepatic cirrhosis DVT prophylaxis Z29.9 (1) Liver cirrhosis Hepatic cirrhosis type: unspecified hepatic cirrhosis
[2020-02-08] MEDS ORDERED: IOVERSOL 100ml IV PRN (18:43)
--- NOTE | 2020-02-08 19:06 | CT Scan Report ---
CT OF THE NECK WITH IV CONTRAST CLINICAL HISTORY: Right-sided swelling. Evaluate for abscess. COMPARISON STUDY: CTA of the neck August 26, 2018. TECHNIQUE: Following IV administration of 95 mL of Optiray-320, helical axial images of the neck wer e obtained. Sagittal and coronal reconstructions were viewed. Automated exposure control was utiliz ed for the study. A dose lowering technique was utilized adhering to the principles of ALARA. CT DOSE: 415.15 mGycm FINDINGS: Visualized portions of the intracranial contents are unremarkable. Major vasculature of th e neck is patent. Lung apices are clear. Mildly enlarged right-sided cervical lymph nodes are reactiv e. Note is made of a periapical abscess of a right mandibular molar with associated cortical disrupti on. There is an adjacent rim-enhancing fluid collection that measures 1.2 x 0.7 cm along the inferior medial aspect of the right hemimandible. There is moderate adjacent infiltration. The airway is braxton nt. Epiglottis is normal. Multiple additional periapical lucencies/abscesses are noted. Several teeth are absent. No cervical spine fracture is noted. IMPRESSION: 1. Periapical abscess of a right mandibular molar with an adjacent 1.2 x 0.7 cm abscess. Moderate adj acent inflammation consistent with cellulitis. No additional abscesses. No airway narrowing. 2. Multiple additional periapical cysts/abscesses. ACT 112: Negative or not required by law. Electronically signed by: Dani Cardona M.D. 02/08/2020 7:05 PM
[2020-02-08] MEDS ORDERED: PHARMACY GLYCEMIC MGMT CONSULT STA (19:15)
[2020-02-08] MEDS ORDERED: PHARMACY GLYCEMIC MGMT CONSULT PRN (19:44)
[2020-02-08] MEDS ORDERED: CARBOHYDRATES FOR HYPOGLYCEMIA PO PRN (19:45)
[2020-02-08] MEDS ORDERED: GLUCAGON FOR INJ 1 MG VIAL IM PRN (19:45)
[2020-02-08] MEDS ORDERED: DEXTROSE 50% 50 ML SYRINGE IV PRN (19:45)
[2020-02-08] MEDS ORDERED: GLUCOSE 10 TABS/TUBE PO PRN (19:45)
[2020-02-08] MEDS ORDERED: GLUCOSE 40% GEL 15 GM TUBE PO PRN (19:45)
[2020-02-08] MEDS ORDERED: ACETAMINOPHEN 325 MG TAB PO PRN (19:55)
[2020-02-08] MEDS ORDERED: POLYETHYLENE (MIRALAX) 17 GM PACK PO PRN (19:55)
[2020-02-08] MEDS ORDERED: ONDANSETRON INJ 2 MG/ML 2 ML VIAL IV PRN (19:55)
[2020-02-08] MEDS ORDERED: INSULIN GLARGINE SOLOSTAR 100 UNITS/ML 3 ML PEN SC STA ×2 (19:56→20:32)
[2020-02-08] MEDS ORDERED: HYDROmorphone INJ 1 MG/ML SYRINGE IV STA (20:00)
[2020-02-08] MEDS ORDERED: HYDROmorphone INJ 1 MG/ML SYRINGE ONE (20:07)
[2020-02-08] MEDS ORDERED: CYCLOBENZAPRINE HCL 10 MG TAB PO PRN (20:10)
[2020-02-08] MEDS: LACTATED RINGER'S 1,000 ML IV SCH (20:14)
[2020-02-08] MEDS ORDERED: PROMETHAZINE HCL 25 MG TAB PO PRN (20:15)
[2020-02-08] MEDS ORDERED: DICLOFENAC SOD 1% GEL 100 GM TUBE EXT PRN (20:30)
[2020-02-08] MEDS ORDERED: NYSTATIN POWDER 15GM BTL EXT PRN (20:30)
[2020-02-08] MEDS ORDERED: RIZATRIPTAN BENZOATE 10 MG TAB PO PRN (20:34)
[2020-02-08] MEDS ORDERED: HydrALAZINE HCL 20 MG/ML VIAL IV PRN (20:36)
--- NOTE | 2020-02-08 20:40 | Pharmacy Report ---
Glycemic Control Consultation - Date of Service February 08, 2020 - Scope Scope: Glycemic Pharmacist consulted for glycemic control and to write orders per [facility] inpatient glycemic control protocol. - Objective Weight: 109.3 kg Accuchecks BSG (last 24hrs): 02/08/20 17:33 Glucose 306 H* Laboratory Data (last 24hrs): 02/08/20 17:33 Potassium 3.8 Carbon Dioxide 19 L Anion Gap 8.0 Creatinine 0.87 Est Cr Clr Drug Dosing 99.1 Beta-Hydroxybutyric Acd 2.15 - Recent Pertinent Medications Outpatient Anti-diabetic Regimen: * Lantus 65 units SQ BID * Novolog SSI * Trulicity 0.75 mg SQ weekly * A1c = pending for tomorrow AM (most recent was 11.8% from October 2019) Risk Factors for Insulin Resistance: * Infection: Unasyn for EENT Infection * IVF: LR @ 125 cc/hr * Diet: T2DM (NPO after midnight) - Assessment & Plan Assessment & Plan: ASSESSMENT: * 49 yo F admitted secondary to dental pain and possible EENT infection * PMHx significant for COPD, HTN, Obesity * Upon admission, random BSG was 306 mg/dL, pharmacy consult for glycemic management. Patient did receive her 65 units of Lantus this AM. * Patient was admitted in October 2019 secondary to hyperglycemia, will utilize previous admission data to help with current admission management * Per RN, patient did not want a dinner tray tonight (she did consume diet coke and chicken broth, little to no carbs). She will be NPO after midnight for possible procedure. * Given NPO status, will reduce home basal dose by 20% and give 50 units of Lantus. * Given current hyperglycemia will utilize previous admission data to start at CF-10, CR-3. Will add overnight checks to ensure patient corrects. PLAN FOR INPATIENT GLYCEMIC CONTROL: * Basal insulin * Lantus 50 units SQ x 1 * Starting tomorrow AM - Lantus 50-55 units SQ BID (see eMAR for further details) * Bolus insulin * NovoLog per scale ACHS or Q6hrs while NPO * Goal Range: Low 110 mg/dL - High 140 mg/dL * Correction Factor: 10 mg/dL/unit * Nutritional / Prandial insulin per carb ratio of 1 unit per 3 grams CHO consumed * Please note that the plan above was derived based on current level of insulin resistance and hospital stress. These recommendations are appropriate for inpatient admission only. Plan of care upon discharge will need to be reassessed to avoid potential outpatient hypo/hyperglycemia. Thank you.
[2020-02-08] MEDS: GABAPENTIN 600 MG TAB PO SCH (20:49)
[2020-02-08] MEDS: ACETAMINOPHEN 325 MG TAB PO SCH (20:49)
[2020-02-08] MEDS ORDERED: INSULIN GLARGINE SOLOSTAR 100 UNITS/ML 3 ML PEN SC SCH ×2 (21:00)
[2020-02-08] MEDS ORDERED: INSULIN ASPART 100 UNITS/ML 3 ML PEN SC SCH (21:00)
[2020-02-08] MEDS: KETOROLAC 30 MG/ML VIAL IV PRN (21:40)
[2020-02-09] MEDS: HYDROmorphone INJ 0.5 MG/0.5 ML SYR IV PRN ×5 (00:04→16:49)
[2020-02-09] MEDS: AMPICILLIN/SULBACTAM SOD 3,000 MG in 0.9 % SODIUM CHLORIDE 100 ML IV SCH ×5 (00:04→23:28)
[2020-02-09] MEDS: INSULIN ASPART 100 UNITS/ML 3 ML PEN SC SCH ×4 (00:36→21:26)
[2020-02-09] MEDS: KETOROLAC 30 MG/ML VIAL IV PRN ×3 (03:11→23:33)
[2020-02-09] MEDS: LACTATED RINGER'S 1,000 ML IV SCH ×3 (04:31→20:15)
[2020-02-09 05:09] LABS: Basophils # (auto) 0.03 K/uL (0-0.2); Basophils % (auto) 0.2 %; Eosinophils # (auto) 0.23 K/uL (0-0.5); Eosinophils % (auto) 1.7 %; Hematocrit (blood only) 42.4 % (37-47); Hemoglobin 14.5 g/dL (12.0-16.0); Immature Granulocytes # (auto) 0.04 K/uL (0.00-0.02); Immature Granulocytes % (auto) 0.3 %; Lymphocytes # (auto) 3.66 K/uL (1.2-3.4); Lymphocytes % (auto) 26.3 %; Mean Corpuscular Hemoglobin 31.8 pg (25-34); Mean Corpuscular Hgb Conc 34.2 g/dL (32-36); Monocytes % (auto) 7.2 %; Neutrophils # (auto) 8.95 K/uL (1.4-6.5); Neutrophils % (auto) 64.3 %; Platelet Count 165 K/uL (130-400); RDW Coefficient of Variation 15.5 % (11.5-14.5); RDW Standard Deviation 52.6 fL (36.4-46.3); Red Blood Count 4.56 M/uL (4.2-5.4); White Blood Count 13.91 K/uL (4.8-10.8)
[2020-02-09 05:31] LABS: BUN Creatinine Ratio 14.5 (10-20); Calcium 8.3 mg/dl (8.5-10.1); Creatinine Clr Calc Pharmacy 126.8 ml/min; Est GFR (African American) 117.4; Est GFR (Non-African American) 101.3; Potassium 3.5 mmol/L (3.5-5.1)
[2020-02-09] MEDS ORDERED: HYDROmorphone INJ 1 MG/ML SYRINGE IV STA (05:49)
[2020-02-09] MEDS ORDERED: Nursing to Pharmacy Communication ONE ×2 (07:09→10:22)
[2020-02-09 07:12] LABS: Estimated Average Glucose 194 mg/dl; Hemoglobin A1C 8.4 % (4.5-5.6)
[2020-02-09] MEDS: ACETAMINOPHEN 325 MG TAB PO SCH ×4 (08:21→19:46)
[2020-02-09] MEDS: FLUTICASONE/VILANTEROL 100/25MCG 14 PUFFS/INHALER INH SCH (08:22)
[2020-02-09] MEDS: GABAPENTIN 600 MG TAB PO SCH ×3 (08:22→20:28)
[2020-02-09] MEDS: INSULIN GLARGINE SOLOSTAR 100 UNITS/ML 3 ML PEN SC SCH ×2 (08:25→21:25)
--- NOTE | 2020-02-09 10:14 | Surgery Consultation ---
Date of Consultation February 09, 2020---- Oral Maxillofacial Surgery Acute infection Exam Present Complaint: I have pain/swelling/drainage from my infected teeth. Symptoms have been ongoing for a while they would come and go. Now acute facial swelling redness, pain and trismus, failed out patient treatment. A detailed oral exam was completed. Finding--Acute facial infection from submandibular to mental area associated with the decayed and fractured teeth, tender gingival tissue with deep pocket formation.Teeth are in an poor position and I&D/removal is clinical indicated. CT scan shows abscess right jaw and infected teeth. Soft tissue of the floor of the mouth,right submandibular area is swollen from current infection. Oral Care---Overall oral care is very poor --should have full mouth extraction once the current infection is controlled Occlusion---Class TMJ exam---No pop, clicking, pain, good ROM, No history of TMJ injury or dysfunction Periodontal exam---very poor all teeth decayed to gum line, Neck is supple, FROM, Able to extend and flex neck w/o difficulty, noted swelling right side Plan: Set up with general anesthesia in hospital due to complexity of the procedure Risks reviewed Physical exam completed future full mouth dental extractions and full dentures I reviewed the treatment plan and consent with the patient and family. Understanding was expressed. Time was given for questions regarding the surgery, risks and post op care. The procedure will be set up Tuesday AM to allow more organization of the abscess now that she is on appropriate antibiotics. Review of informed consent with patient Reason for surgery to remove infected teeth and do I&D : Risks discussed: Pain,swelling,infection, dry socket, delayed healing, nerve injury to face,lips,tongue,chin area which could be permanent (rare). TMJ, jaw stiffness, change in bite (rare), ear pain (referred). Home care reviewed--tooth brushing, rinsing, follow up care with Dr Rios, diet=[id number] dental. Discussed activity level, driving/work while on Rx pain meds Reviewed importance of responsibility in use of post op pain beba given past history--patient agrees. Plan for the GA and surgery at Hospital tuesday AM Thank You, Vahe Rios DMD History of Present Illness Attending Physician: Unruly Grey, Allergies Allergy/AdvReac Type Severity Reaction Status Date / Time cephalexin AdvReac Severe Vomiting Verified 02/08/20 19:30 levofloxacin [From Levaquin] AdvReac Vomiting Verified 02/08/20 19:30 Home Medications Home Medications Medication Instructions Recorded Confirmed Type cyclobenzaprine 10 mg PO BID PRN #0 11/18/17 02/08/20 History gabapentin 1,200 mg PO TID #0 tab 11/18/17 02/08/20 History albuterol sulfate [Ventolin HFA] 2 puff INHALATION Q4H PRN #0 02/10/18 02/08/20 History diclofenac sodium [Voltaren] 4 g TOPICAL QID PRN 01/05/19 02/08/20 History rizatriptan 5 mg PO DIRECTED PRN 06/16/19 02/08/20 History ibuprofen 800 mg PO TID PRN 10/24/19 02/08/20 History nystatin 1 applic TOPICAL DIRECTED 10/24/19 02/08/20 History promethazine 25 mg PO Q6H PRN 10/24/19 02/08/20 History fluticasone propion-salmeterol 1 puff INHALATION BID 10/29/19 02/08/20 History insulin aspart U-100 [Novolog See Rx Instructions .ROUTE .COMPLEX 10/29/19 02/08/20 History Flexpen U-100 Insulin] insulin glargine [Lantus Solostar 65 unit SUBCUT BID 10/29/19 02/08/20 History U-100 Insulin] OneTouch Delica Plus Lancet 33 #180 ea NS 11/02/19 11/07/19 Rx gauge OneTouch Verio #150 ea NS 11/05/19 11/07/19 Rx Trulicity 0.75 mg/0.5 mL 0.75 mg SQ WEEKLY #4 pen NS 12/11/19 02/08/20 Rx subcutaneous pen injector amoxicillin-pot clavulanate 1 tab PO BID 02/08/20 02/08/20 History [Augmentin] budesonide-formoterol [Symbicort] 2 puff INHALATION BID 02/08/20 02/08/20 History Patient History Medical History (Updated 02/08/20 @ 20:34 by Gerard Park MD) Anxiety Brain cyst Chronic low back pain with left-sided sciatica Chronic obstructive pulmonary disease Depression Hypertension (Chronic) Insulin dependent diabetes mellitus (Chronic) Obesity Pulmonary embolism Uncontrolled type 2 diabetes mellitus (Chronic) Surgical History History of laparoscopic cholecystectomy S/P laparoscopic hernia repair Family History Mother , 73 Heart disease Cancer Father Skin cancer Brother No problems noted. Sister No problems noted. 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: No Beliefs That Will Affect Care: None marital status: Current Living Situation: Family Current Living Situation Comment: lives with 13 year old daughter Other Information That Helps Us Care for You: No Feels Safe at Home: Yes Safety Concerns: Feels Safe At This Time Smoking Status: Current every day smoker Tobacco Type: cigarettes ; Cigarettes Per Day: 5 ; Second Hand Exposure: Yes ; Hx Alcohol Use: No Hx Substance Use: No Results & Data Vital Signs (Past 12 Hours) Vital Signs Temp Pulse Resp BP Pulse Ox 02/09/20 07:04 36.8 C 71 18 119/78 99 02/08/20 23:10 36.8 C 80 18 143/86 H 98 PG Care Time/CCT Total # of Minutes Spent Total Time Spent with Patient: Total time spent is greater than 50% in coordination of care (as documented) at patient's floor/unit and/or counseling patient: Coding Level of Care Code 75614 Inpt Consult Level 3
--- NOTE | 2020-02-09 10:55 | Hospitalist Progress Note ---
Date of Service February 09, 2020 Assessment & Plan (1) Periapical abscess with facial involvement: Failed outpatient therapy with Augmentin Confirmed abscess on CT Unasyn IV 3g Q6H Toradol 30mg Q6H PRN use preferentially to Dilaudid. Oxycodone PRN She is medically cleared for surgery at this time. Minced and moist diet now, NPO after midnight plan for OR the morning of 02/[address] Rios (2) Uncontrolled type 2 diabetes mellitus: HbA1C 11.8 in October. Holding Trulicity (usually takes 0.75mg SQ) Did not take Lantus dose this morning. No Novolog in last 2 days as she reports not eating. Consult pharmacy for glycemic control with basal colus regimen T2DM diet HbA1c better at 8.4% monitor for hypoglycemia (3) Opioid abuse: Noted history of this although ceratinly she has pathology consitent with her pain at present. add Oxycodone PRN today (4) Liver cirrhosis: Noted history of this. Reduced acetaminophen max dose. (5) DVT prophylaxis: SCDs Admission and Anticipated Discharge Date Admission Date: February 08, 2020 Subjective patient still experiencing a lot of pain, but a little better appreciate Dr. Rios's recommendations, plan for OR tomorrow for tooth extraction he discussed that she needs all teeth pulled, she has plans for that on February 20 will add Oxycodone PRN for pain control, Dilaudid for breakthrough vitals stable, no fever WBC down slightly to 13k from 14k BMP normal, HbA1c is 8.4% Review of Systems Review of Systems: All systems reviewed & are unremarkable except as noted in HPI & below Constitutional: no fever, no chills, no sweats, no fatigue and no weakness Ear, Nose, Mouth, Throat: + dental pain (severe right lower jaw pain), + dental caries and + dental abscess (right lower) Respiratory: no cough and no dyspnea Cardiovascular: no chest pain and no edema Gastrointestinal: no abdominal pain, no nausea, no vomiting, no constipation and no diarrhea/loose stools Genitourinary: no dysuria, no difficulty urinating and no urinary frequency Musculoskeletal: no back pain and no joint pain Physical Exam Constitutional: WD/WN, vitals as above + overweight Eyes: PERRL, conjunctivae normal, anicteric sclerae ENMT: Nose: no nasal discharge and no sinus tenderness Mouth: + restricted motion of mouth (right jaw, swollen), + dentition abnormality (poor dentition), + gingival abnormality (erythematous), + dental caries and + loose teeth Neck: trachea midline and + submandibular swelling (right side) Thyroid: normal thyroid Respiratory: normal respiratory effort, lungs clear to auscultation Cardiovascular: RRR, no murmur, no edema Gastrointestinal (Abdomen): normal bowel sounds, soft, nontender, no hepatosplenomegaly Musculoskeletal: no cyanosis or clubbing, extremities motor strength 5/5 Skin: no rashes, warm and dry Neurologic: patellar DTR's 2+ bilat, sensation intact and PERRL, EOMI, accommodation nl, no face palsy, no dysarthria Psychiatric: A+Ox3, euthymic affect Lymphatic: no cervical or axillary lymphadenopathy Results & Data Results & Data ([facility]) Vital Signs (Past 12 Hours) Vital Signs Temp Pulse Resp BP Pulse Ox 02/09/20 07:04 36.8 C 71 18 119/78 99 02/08/20 23:10 36.8 C 80 18 143/86 H 98 Laboratory Results Laboratory Results - last 24 hr 02/08/20 02/09/20 02/09/20 20:27 00:04 04:36 WBC RBC Hgb Hct MCV MCH MCHC RDW Std Deviation RDW Coeff of Kelli Plt Count MPV Immature Gran % (Auto) Neut % (Auto) Lymph % (Auto) [place] % (Auto) Eos % (Auto) Baso % (Auto) Immature Gran # (Auto) Neut # (Auto) Lymph # (Auto) [place] # (Auto) Eos # (Auto) Baso # (Auto) Sodium Potassium Chloride Carbon Dioxide Anion Gap BUN Creatinine Est Cr Clr Drug Dosing Est GFR ( Amer) Est GFR (Non-Af Amer) BUN/Creatinine Ratio Glucose POC Glucose 297 H 81 Estimat Average Glucose 194 Hemoglobin A1c 8.4 H Calcium 02/09/20 02/09/20 02/09/20 04:36 04:36 04:45 WBC 13.91 H RBC 4.56 Hgb 14.5 Hct 42.4 MCV 93.0 MCH 31.8 MCHC 34.2 RDW Std Deviation 52.6 H RDW Coeff of Kelli 15.5 H Plt Count 165 MPV 11.0 H Immature Gran % (Auto) 0.3 Neut % (Auto) 64.3 Lymph % (Auto) 26.3 Ro[place] % (Auto) 7.2 Eos % (Auto) 1.7 Baso % (Auto) 0.2 Immature Gran # (Auto) 0.04 H Neut # (Auto) 8.95 H Lymph # (Auto) 3.66 H Roane # (Auto) 1.00 H Eos # (Auto) 0.23 Baso # (Auto) 0.03 Sodium 140 Potassium 3.5 Chloride 110 H Carbon Dioxide 24 Anion Gap 6.0 BUN 10 Creatinine 0.68 Est Cr Clr Drug Dosing 126.8 Est GFR ( Amer) 117.4 Est GFR (Non-Af Amer) 101.3 BUN/Creatinine Ratio 14.5 Glucose 116 H POC Glucose 113 H Estimat Average Glucose Hemoglobin A1c Calcium 8.3 L 02/09/20 02/09/20 12:07 17:09 WBC RBC Hgb Hct MCV MCH MCHC RDW Std Deviation RDW Coeff of Kelli Plt Count MPV Immature Gran % (Auto) Neut % (Auto) Lymph % (Auto) [place] % (Auto) Eos % (Auto) Baso % (Auto) Immature Gran # (Auto) Neut # (Auto) Lymph # (Auto) [place] # (Auto) Eos # (Auto) Baso # (Auto) Sodium Potassium Chloride Carbon Dioxide Anion Gap BUN Creatinine Est Cr Clr Drug Dosing Est GFR ( Amer) Est GFR (Non-Af Amer) BUN/Creatinine Ratio Glucose POC Glucose 163 H 139 H Estimat Average Glucose Hemoglobin A1c Calcium Medications Administered Current Inpatient Medications Acetaminophen (Tylenol) 650 mg PO Q4HWA [facility] Stop: 03/09/20 20:59 Last Admin: 02/09/20 19:46 Dose: 650 mg Documented by: Cyclobenzaprine HCl (Flexeril) 10 mg PO BID PRN PRN Reason: Muscle Spasm Stop: 03/09/20 20:09 Dextrose (Dextrose 50%) 25 - 50 ml IV UD PRN; Protocol PRN Reason: Hypoglycemia Protocol Stop: 03/09/20 19:44 Diclofenac Sodium (Voltaren 1% Top) 4 gm EXT QID PRN PRN Reason: Knee or back pain Stop: 03/09/20 20:29 Fluticasone/Vilanterol (Breo Ellipta 100/25 Mcg Inh) 1 puffs INH DAILY [facility] Stop: 03/10/20 08:59 Last Admin: 02/09/20 08:22 Dose: 1 puffs Documented by: Gabapentin (Neurontin) 1,200 mg PO TID [facility] Stop: 03/09/20 20:59 Last Admin: 02/09/20 14:18 Dose: 1,200 mg Documented by: Glucagon (Glucagen) 1 mg IM UD PRN; Protocol PRN Reason: Hypoglycemia Protocol Stop: 03/09/20 19:44 Glucose (Glucose 40%) 15 - 30 gm PO UD PRN; Protocol PRN Reason: Hypoglycemia Protocol Stop: 03/09/20 19:44 Glucose (Dex4 Glucose) 4 - 8 tabs PO UD PRN; Protocol PRN Reason: Hypoglycemia Protocol Stop: 03/09/20 19:44 Hydralazine HCl (Hydralazine Hcl) 5 mg IV Q4H PRN PRN Reason: sBP > 200 Stop: 03/09/20 20:35 Hydromorphone HCl (Dilaudid) 0.5 mg IV Q4H PRN PRN Reason: Pain Stop: 02/09/20 20:00 Last Admin: 02/09/20 16:49 Dose: 0.5 mg Documented by: Ampicillin Sodium/Sulbactam Sodium 3,000 mg/ Sodium Chloride 108 mls @ 200 mls/hr IV Q6H [facility]; Protocol Stop: 02/19/20 00:00 Last Infusion: 02/09/20 18:19 Dose: Infused Documented by: Lactated Ringer's (Lr) 1,000 mls @ 125 mls/hr IV .Q8H [facility] Stop: 03/09/20 20:14 Last Infusion: 02/09/20 13:09 Dose: 125 mls/hr Documented by: Insulin Aspart (Novolog Flexpen) 0 units SC ACHS [facility] Stop: 03/10/20 11:59 Last Admin: 02/09/20 17:36 Dose: 8 units Documented by: Insulin Glargine (Lantus Solostar Pen) 0 units SC BID [facility]; Protocol Stop: 03/10/20 08:59 Last Admin: 02/09/20 08:25 Dose: Not Given Documented by: Ketorolac Tromethamine (Toradol) 30 mg IV Q6H PRN PRN Reason: Pain Stop: 02/13/20 20:01 Last Admin: 02/09/20 10:27 Dose: 30 mg Documented by: Miscellaneous (Carbohydrates For Hypoglycemia) 15 - 30 gm PO UD PRN PRN Reason: Hypoglycemia Treatment Stop: 03/09/20 19:44 Miscellaneous Information (Consult Glycemic Management Pharmacy) 1 ea N/A UD PRN PRN Reason: Consult Stop: 03/09/20 19:43 Nystatin (Mycostatin) 1 appln EXT PRN PRN PRN Reason: affected areas Stop: 03/09/20 20:29 Ondansetron HCl (Zofran) 4 mg IV Q6H PRN PRN Reason: Nausea Stop: 03/09/20 19:54 Oxycodone HCl (Roxicodone Immediate Rel) 5 mg PO Q4 PRN PRN Reason: Pain Stop: 02/23/20 10:34 Last Admin: 02/09/20 19:47 Dose: 5 mg Documented by: Polyethylene Glycol (Miralax Powder Packet) 17 gm PO DAILY PRN PRN Reason: Constipation Stop: 03/09/20 19:54 Promethazine HCl (Phenergan) 25 mg PO Q6H PRN PRN Reason: Nausea Stop: 03/09/20 20:14 Rizatriptan Benzoate (Maxalt) 5 mg PO ONCE PRN PRN Reason: Migraine Headache Stop: 03/09/20 20:33 PG Care Time/CCT Total # of Minutes Spent Total Time Spent with Patient: Total time spent is greater than 50% in coordination of care (as documented) at patient's floor/unit and/or counseling patient: Coding Level of Care Code 22974 Subseq Hosp Care Lvl 2 Diagnoses Periapical abscess with facial involvement K04.7 Uncontrolled type 2 diabetes mellitus E11.65 Opioid abuse F11.10 Liver cirrhosis K74.60 Hepatic cirrhosis type: unspecified hepatic cirrhosis DVT prophylaxis Z29.9 (1) Liver cirrhosis Hepatic cirrhosis type: unspecified hepatic cirrhosis
[2020-02-09] MEDS: OXYCODONE HCL IR 5 MG TAB (IMMEDIATE RELEASE) PO PRN ×3 (11:06→19:47)
[2020-02-09] MEDS ORDERED: INSULIN ASPART 100 UNITS/ML 3 ML PEN SC SCH ×2 (12:00→12:15)
--- NOTE | 2020-02-09 13:34 | Pharmacy Report ---
Pharmacy Glycemic Short Note 2 - Date of Service February 09, 2020 - Glycemic Short BSG Results (Last 24 hours): 02/08/20 02/08/20 02/09/20 17:33 20:27 00:04 Glucose 306 H* POC Glucose 297 H 81 02/09/20 02/09/20 02/09/20 04:36 04:45 12:07 Glucose 116 H POC Glucose 113 H 163 H OUTPATIENT ANTIDIABETIC REGIMEN: * Lantus 65 units SQ BID * Novolog SSI * Trulicity 0.75 mg SQ weekly * A1c = pending for tomorrow AM (most recent was 11.8% from October 2019) Risk Factors for Insulin Resistance: * Infection: Unasyn for EENT Infection * IVF: * Diet: was NPO this morning, now eating lunch and dinner T2DM then NPO after midnight again tonight for surgery Tuesday ASSESSMENT: 02/09/20 * Patient received 105 units basal insulin last night, fasting blood sugar 116mg/dl * Patient NPO this morning so basal insulin held. * Diet resumed at Lunch, and will be NPO again tonight after midnight for surgery tomorrow morning, will reduce Lantus dose tonight * Blood sugars dropped significantly overnight, with correctional insulin, so will loosen CF/CR slightly to prevent hypoglycemia. 02/08/20 * 49 yo F admitted secondary to dental pain and possible EENT infection * PMHx significant for COPD, HTN, Obesity * Upon admission, random BSG was 306 mg/dL, pharmacy consult for glycemic management. Patient did receive her 65 units of Lantus this AM. * Patient was admitted in October 2019 secondary to hyperglycemia, will utilize previous admission data to help with current admission management * Per RN, patient did not want a dinner tray tonight (she did consume diet coke and chicken broth, little to no carbs). She will be NPO after midnight for possible procedure. * Given NPO status, will reduce home basal dose by 20% and give 50 units of Lantus. * Given current hyperglycemia will utilize previous admission data to start at CF-10, CR-3. Will add overnight checks to ensure patient corrects. PLAN FOR INPATIENT GLYCEMIC CONTROL: * Basal insulin * Lantus held this AM * 30-40 units SQ BID starting tonight based on blood sugar * Bolus insulin * NovoLog per scale ACHS or Q6hrs while NPO * Goal Range: Low 110 mg/dL - High 140 mg/dL * LOOSEN: Correction Factor: 15 mg/dL/unit * LOOSEN: Nutritional / Prandial insulin per carb ratio of 1 unit per 5 grams CHO consumed PLAN FOR DISCHARGE: * A1c much improved from 11.8% in October to 8.4% on 02/09/20. * Continue outpatient basal + bolus + GLP-1 therapy and follow-up with outpatient provider.
--- NOTE | 2020-02-09 16:50 | Anesthesiology Consultation ---
Date of Service February 09, 2020 Assessment & Plan (1) Encounter for pre-operative examination: Chart Review Chart Review: Acceptable Risk for Surgery and Patient NOT seen in Pre Admission Testing Consults Requested none History Surgery Operation Date: 02/10/20 10:00 Proposed Procedures p Right Neck Incision and Drainage(Right) - Vahe Rios DMD s Extraction 2-3 Teeth, Right Side(Right) - Vahe Bryan Blanca, DMD Height/Weight Height: 5 ft 8 in Weight: 109.3 kg Allergies Allergy/AdvReac Type Severity Reaction Status Date / Time cephalexin AdvReac Severe Vomiting Verified 02/08/20 19:30 levofloxacin [From Levaquin] AdvReac Vomiting Verified 02/08/20 19:30 Medications Home Medications Medication Instructions Recorded Confirmed Last Taken cyclobenzaprine 10 mg PO BID PRN #0 11/18/17 02/08/20 07/05/19 09:00 10 mg gabapentin 1,200 mg PO TID #0 tab 11/18/17 02/08/20 02/08/20 05:00 albuterol sulfate [Ventolin HFA] 2 puff INHALATION Q4H PRN #0 02/10/18 02/08/20 10/24/19 diclofenac sodium [Voltaren] 4 g TOPICAL QID PRN 01/05/19 02/08/20 07/04/19 rizatriptan 5 mg PO DIRECTED PRN 06/16/19 02/08/20 10/22/19 2 tablets ibuprofen 800 mg PO TID PRN 10/24/19 02/08/20 02/08/20 05:00 nystatin 1 applic TOPICAL DIRECTED 10/24/19 02/08/20 10/24/19 promethazine 25 mg PO Q6H PRN 10/24/19 02/08/20 02/07/20 fluticasone propion-salmeterol 1 puff INHALATION BID 10/29/19 02/08/20 02/08/20 05:00 insulin aspart U-100 [Novolog See Rx Instructions .ROUTE .COMPLEX 10/29/19 02/08/20 Unknown Flexpen U-100 Insulin] insulin glargine [Lantus Solostar 65 unit SUBCUT BID 10/29/19 02/08/20 02/07/20 U-100 Insulin] OneTouch Delica Plus Lancet 33 #180 ea NS 11/02/19 11/07/19 Unknown gauge ShukriTouch Verio #150 ea NS 11/05/19 11/07/19 Unknown Trulicity 0.75 mg/0.5 mL 0.75 mg SQ WEEKLY #4 pen NS 12/11/19 02/08/20 02/05/20 subcutaneous pen injector amoxicillin-pot clavulanate 1 tab PO BID 02/08/20 02/08/20 Unknown [Augmentin] budesonide-formoterol [Symbicort] 2 puff INHALATION BID 02/08/20 02/08/20 02/08/20 05:00 Active Medications Generic Name Dose Route Start Last Admin Trade Name Freq PRN Reason Stop Dose Admin Acetaminophen 650 mg 02/08/20 21:00 02/09/20 15:38 Tylenol PO 03/09/20 20:59 650 mg Q4HWA YEN Administration Fluticasone/Vilanterol 1 puffs 02/09/20 09:00 02/09/20 08:22 Breo Ellipta 100/25 Mcg Inh INH 03/10/20 08:59 1 puffs DAILY YEN Administration Gabapentin 1,200 mg 02/08/20 21:00 02/09/20 14:18 Neurontin PO 03/09/20 20:59 1,200 mg TID YEN Administration Hydromorphone HCl 0.5 mg 02/08/20 20:01 02/09/20 16:49 Dilaudid IV 02/09/20 20:00 0.5 mg Q4H PRN Administration Pain Ampicillin Sodium/Sulbactam 108 mls @ 200 mls/hr 02/09/20 00:00 02/09/20 13:09 Sodium 3,000 mg/ Sodium IV 02/19/20 00:00 Infused Chloride Q6H YEN Infusion Protocol Lactated Ringer's 1,000 mls @ 125 mls/hr 02/08/20 20:15 02/09/20 13:09 Lr IV 03/09/20 20:14 125 mls/hr .Q8H YEN Infusion Insulin Glargine 0 units 02/09/20 09:00 02/09/20 08:25 Lantus Solostar Pen SC 03/10/20 08:59 Not Given BID YEN Protocol Ketorolac Tromethamine 30 mg 02/08/20 20:02 02/09/20 10:27 Toradol IV 02/13/20 20:01 30 mg Q6H PRN Administration Pain Oxycodone HCl 5 mg 02/09/20 10:35 02/09/20 15:41 Roxicodone Immediate Rel PO 02/23/20 10:34 5 mg Q4 PRN Administration Pain NPO Date Last Intake of Fluids: 02/08/20 Time Last Intake of Fluids: 23:59 Date Last Intake of Solids: 02/08/20 Time Last Intake of Solids: 23:00 Past Medical History Medical History Anxiety Brain cyst Chronic low back pain with left-sided sciatica Chronic obstructive pulmonary disease Depression Hypertension (Chronic) Insulin dependent diabetes mellitus (Chronic) Obesity Pulmonary embolism Uncontrolled type 2 diabetes mellitus (Chronic) Past Family History Family History Mother , 73 Heart disease Cancer Father Skin cancer Brother No problems noted. Sister No problems noted. Grandmother (Maternal) , 48 Heart disease T2DM (type 2 diabetes mellitus) Grandmother (Paternal) , 83 Heart disease Kidney disease Uncle T2DM (type 2 diabetes mellitus) Other Diabetes Obesity Past Surgical History Surgical History History of laparoscopic cholecystectomy S/P laparoscopic hernia repair Social History Smoking Status: Current every day smoker tobacco type: cigarettes Smoking cigarettes per day: 5 Hx Alcohol Use: No Alcohol type: wine alcohol intake frequency: holidays/special occasions only Hx Substance Use: No substance use type: does not use Physical Exam Vital Signs Last Vital Signs Temp 36.5 C 02/09/20 15:18 Pulse 74 02/09/20 15:18 Resp 16 02/09/20 15:18 BP 115/64 02/09/20 15:18 Pulse Ox 98 02/09/20 15:18 Testing Laboratory Results 02/09/20 04:36 02/09/20 04:36 PT 11.9 Seconds (9.0-12.0) 02/08/20 17:33 INR 1.1 (0.9-1.1) 02/08/20 17:33 APTT 28.5 Seconds (21.0-31.0) 02/08/20 17:33 Hemoglobin A1c 8.4 % (4.5-5.6) H 02/09/20 04:36 02/09/20 02/09/20 12:07 04:45 POC Glucose 163 H 113 H Electrocardiogram Date: 10/29/19 Findings: + NSR @ (67) Sinus arrhythmia Cannot rule out Anterior infarct (cited on or before 25-AUG-2018) When compared with ECG of 14-SEP-2019 22:08, No significant change was found
[2020-02-09] MEDS: HYDROmorphone INJ 0.5 MG/0.5 ML SYR IV SCH (22:07)
[2020-02-10] MEDS: OXYCODONE HCL IR 5 MG TAB (IMMEDIATE RELEASE) PO PRN ×2 (00:10→05:22)
[2020-02-10] MEDS: HYDROmorphone INJ 0.5 MG/0.5 ML SYR IV SCH (02:06)
[2020-02-10] MEDS: LACTATED RINGER'S 1,000 ML IV SCH ×4 (05:16→23:38)
[2020-02-10] MEDS: AMPICILLIN/SULBACTAM SOD 3,000 MG in 0.9 % SODIUM CHLORIDE 100 ML IV SCH ×3 (05:17→18:04)
[2020-02-10] MEDS: INSULIN ASPART 100 UNITS/ML 3 ML PEN SC SCH ×5 (06:13→21:23)
[2020-02-10] MEDS: ACETAMINOPHEN 325 MG TAB PO SCH ×4 (07:26→19:57)
[2020-02-10] MEDS: KETOROLAC 30 MG/ML VIAL IV PRN (07:26)
[2020-02-10] MEDS: INSULIN GLARGINE SOLOSTAR 100 UNITS/ML 3 ML PEN SC SCH ×2 (09:15→21:23)
[2020-02-10] MEDS: FLUTICASONE/VILANTEROL 100/25MCG 14 PUFFS/INHALER INH SCH (09:15)
[2020-02-10] MEDS: GABAPENTIN 600 MG TAB PO SCH ×3 (09:16→21:25)
[2020-02-10] MEDS ORDERED: ePHEDrine sulfate 50 MG/ML AMP IV PRN (09:53)
[2020-02-10] MEDS ORDERED: ATROPINE SULFATE 0.1 MG/ML 10ML SYR IV PRN (09:53)
[2020-02-10] MEDS ORDERED: ONDANSETRON INJ 2 MG/ML 2 ML VIAL IV PRN (09:53)
[2020-02-10] MEDS ORDERED: LIDOCAINE HCL 2% 2 ML VIAL/AMP(20MG/ML) INFIL ONE ×2 (10:01→11:24)
[2020-02-10] MEDS ORDERED: fentaNYL citrate 100 MCG/2 ML VIAL ONE ×3 (10:01→11:45)
--- NOTE | 2020-02-10 10:01 | History & Physical Bridge Note ---
Date of Service February 10, 2020 History & Physical Bridge Note I have examined the patient, reviewed the History & Physical and in the interval since the performance of the History & Physical I have noted the following changes of clinical significance: no changes noted The area is more swollen but localized to the submandibular and floor of mouth area. Able to open mouth well. Plan Extra Oral I&D right submandibular /FOM ext of teeth in area 28-32 area, teeth fractured and grossly decayed.
[2020-02-10] MEDS ORDERED: MIDAZOLAM HCL 1 MG/ML 2ML VIAL ONE (10:02)
[2020-02-10] MEDS ORDERED: SUCCINYLCHOLINE CHLORIDE 20 MG/ML 10 ML VIAL ONE (10:03)
[2020-02-10] MEDS ORDERED: CHLORHEXIDINE GLUCONATE 0.12% 480 ML ONE (10:28)
[2020-02-10] MEDS ORDERED: BUPIVACAINE/EPINEPHRINE 0.5% 1:200,000 1.8 ML CARP ONE (10:29)
--- NOTE | 2020-02-10 11:11 | Post Operative Brief Note ---
PG Immediate Post Op with CF Date of Surgery February 10, 2020 Pre & Post Diagnosis Operation Date: 02/10/20 10:00 Pre-Op Diagnosis: right submandibular abcess Post-Op Diagnosis: right submandibular abcess I identified the patient and participated in the time-out.: Yes Procedure Operation Date: 02/10/20 10:00 Actual Procedures p Right Submandibular extra oral Incision and Drainage of oral abscess, Extraction of #28 and #31(Right) - Vahe Rios, COOKIE Surgeon Vahe Rios, COOKIE [employer] Practitioner none Estimated Blood Loss 10 Findings Consistent with Post-Op Diagnosis Specimens Specimen Description: Culture #1 Submandibular Abcess Drains Lucy Drain
[2020-02-10] MEDS ORDERED: PROPOFOL IV EMULSION 10 MG/ML 20 ML VIAL IV ONE (11:24)
[2020-02-10] MEDS ORDERED: ONDANSETRON INJ 2 MG/ML 2 ML VIAL ONE (11:24)
[2020-02-10] MEDS ORDERED: NEOSTIGMINE METHYLSULFATE 5 MG/5 ML SYR ONE (11:24)
[2020-02-10] MEDS ORDERED: GLYCOPYRROLATE 0.2 MG/ML VIAL ONE (11:24)
[2020-02-10] MEDS: fentaNYL citrate 100 MCG/2 ML VIAL IV PRN ×2 (11:47→11:52)
[2020-02-10] MEDS ORDERED: HYDROmorphone INJ 1 MG/ML SYRINGE ONE (11:57)
[2020-02-10] MEDS: HYDROmorphone INJ 1 MG/ML SYRINGE IV PRN ×2 (11:58→12:04)
--- NOTE | 2020-02-10 12:18 | Operative Report (OR) ---
DATE OF OPERATION: 02/10/2020 PREOPERATIVE DIAGNOSES: Acute right submandibular, submental space infection with floor of mouth infection caused by infected lower teeth. OPERATION: An extraoral incision and drainage of the submental, the submandibular and the floor of the mouth spaces on right side with extraction of tooth number 28 and 31. DESCRIPTION OF PROCEDURE: After this patient was cleared to undergo an orotracheal intubation, general anesthetic, she was brought down to the Operating Room, placed under general anesthesia using the COVID-19 anesthesia protocol. Once the patient was fully anesthetized, a time-out was taken to ensure that we indeed had the patient in our Operating Room with all the instruments, sponge counts, antibiotics were given on the floor and that we were now ready to go. At this time, everyone agreed and the operation began. The facial area was prepped in the usual manner with a Betadine scrub. At this time, sterile dressings were applied around the facial area. A large suction was used to suction the oral cavity. Care was taken to avoid any trauma to our hands and gloves as a result of very sharp teeth that the patient had. A gauze pressure dressing was applied down the pharyngeal area to hold the tube and to prevent fluid from getting down into the trachea. At this time, Peridex mouth rinse was irrigated into the oral cavity and suctioned dried. Local anesthesia in the form of Marcaine was injected via a right inferior alveolar nerve block and some infiltration. At this time, using a dental forcep as well as a small dental elevator, I was able to remove the grossly carious and fractured tooth number 31 and tooth number 28. In removing tooth number 31, pus started to extrude from the socket. There was also pus extruding from the right floor of mouth. At this time, I turned my attention extraorally. I palpated the submandibular area and found what I believed to be the most fluctuant area. Using a 15 blade, a small skin incision was made. At this time, a small hemostat was pressed up into the infected mass. In doing so, copious amounts of purulent drainage was expressed. This drainage was then cultured for both aerobic and anaerobic bacteria. I advanced the hemostat on the lateral aspect of the mandible and had it exit in the mucobuccal fold opposite tooth number 31. More pus was extruding at this time. I then palpated the area and more pus was extruding. I removed the hemostat and extended the hemostat inferiorly and then medially up into the floor of mouth area. This exited on the lingual aspect of tooth number 31. Once again, the hemostat was opened and closed and more pus was extruded. I removed the hemostat. I then placed a hemostat in a horizontal position and advanced it into the submandibular, submental area. In doing so, another loculation of pus was encountered and the area was drained. When I completed the incision and drainage and exploration of all spaces, I palpated the area and no further pus was extruded. Approximately 60 mL of normal saline was irrigated into the areas to cleanse the area. At this time, 2 [place] drains were placed. One from the mental area angled in such a way that it was going superiorly into the floor of the mouth. This Lucy drain was then sutured into place with a 4-0 nylon suture. Another Lucy dressing was then placed superiorly from the submandibular incision up into the facial aspect of tooth number 31. Once again, the drains were appropriately trimmed and sutured with the use of the 4-0 nylon suture. When all was said and done, we had good hemostasis. All loculations of pus were drained. We cleansed the facial area, ensured that hemostasis was in good control. The drains were sutured and stabilized. Benzoin was applied around the periphery of the incision site and a gauze pressure dressing was applied. At this time, the patient was allowed to recover in the usual manner as per protocol prior to extubation. Upon extubation, the patient was transferred to the recovery area after the appropriate protocol was followed for COVID-19. The patient will be transferred back to the floor and I will see her tomorrow morning. I will allow her to ambulate and to have a diet as tolerated. There is no doubt that the patient will need to undergo further dental extractions as a matter of fact she has an appointment with an oral surgeon in [place], [place], for the removal of all of her remaining maxillary-mandibular teeth. However, given the urgency of this infection and the fact that it was not able to be treated on an outpatient basis, the need for the admission, controlling of her diabetes, pain management and antibiotic management was medically necessary. I attest to the content of the Intraoperative Record and any orders documented therein. Any exception s are noted below.
--- NOTE | 2020-02-10 13:32 | Pharmacy Report ---
Pharmacy Glycemic Short Note 2 - Date of Service February 10, 2020 - Glycemic Short BSG Results (Last 24 hours): 02/09/20 02/09/20 02/10/20 17:09 20:40 05:58 POC Glucose 139 H 159 H 110 H 02/10/20 02/10/20 02/10/20 09:37 11:37 13:05 POC Glucose 129 H 119 H 124 H OUTPATIENT ANTIDIABETIC REGIMEN: * Lantus 65 units SQ BID * Novolog SSI * Trulicity 0.75 mg SQ weekly * A1c = pending for tomorrow AM (most recent was 11.8% from October 2019) Risk Factors for Insulin Resistance: * Infection: Unasyn for EENT Infection * IVF: * Diet: was NPO this morning, now eating lunch and dinner T2DM then NPO after midnight again tonight for surgery Tuesday ASSESSMENT: 02/10/20 * Blood sugars ranging from 110-163mg/dl over past 24 hours. * Patient received 40 units basal insulin yesterday, fasting blood sugar 110mg/dl this morning. * Patient NPO this morning for I&D today, give reduced dose of basal this AM. * Continue CF/CR. 02/09/20 * Patient received 105 units basal insulin last night, fasting blood sugar 116mg/dl * Patient NPO this morning so basal insulin held. * Diet resumed at Lunch, and will be NPO again tonight after midnight for surgery tomorrow morning, will reduce Lantus dose tonight * Blood sugars dropped significantly overnight, with correctional insulin, so will loosen CF/CR slightly to prevent hypoglycemia. 02/08/20 * 49 yo F admitted secondary to dental pain and possible EENT infection * PMHx significant for COPD, HTN, Obesity * Upon admission, random BSG was 306 mg/dL, pharmacy consult for glycemic management. Patient did receive her 65 units of Lantus this AM. * Patient was admitted in October 2019 secondary to hyperglycemia, will utilize previous admission data to help with current admission management * Per RN, patient did not want a dinner tray tonight (she did consume diet coke and chicken broth, little to no carbs). She will be NPO after midnight for possible procedure. * Given NPO status, will reduce home basal dose by 20% and give 50 units of Lantus. * Given current hyperglycemia will utilize previous admission data to start at CF-10, CR-3. Will add overnight checks to ensure patient corrects. PLAN FOR INPATIENT GLYCEMIC CONTROL: * Basal insulin * Lantus 20 units X 1 dose this AM then * 30-40 units SQ BID starting tonight based on blood sugar * Bolus insulin * NovoLog per scale ACHS or Q6hrs while NPO * Goal Range: Low 110 mg/dL - High 140 mg/dL * Correction Factor: 15 mg/dL/unit * Nutritional / Prandial insulin per carb ratio of 1 unit per 5 grams CHO consumed PLAN FOR DISCHARGE: * A1c much improved from 11.8% in October to 8.4% on 02/09/20. * Continue outpatient basal + bolus + GLP-1 therapy and follow-up with outpatient provider.
[2020-02-10] MEDS: OXYCODONE/ACETAMINOPHEN 5mg/325mg TAB PO PRN ×3 (14:00→21:51)
--- NOTE | 2020-02-10 14:42 | Hospitalist Progress Note ---
Date of Service February 10, 2020 Assessment & Plan (1) Periapical abscess with facial involvement: Failed outpatient therapy with Augmentin Confirmed abscess on CT at time of admission continue Unasyn IV 3g Q6H s/p incision and drainage of submandibular fluid collection two affected teeth extracted Toradol 30mg Q6H PRN Oxycodone PRN dilaudid PRN for breakthrough check labs in AM, Dr. Rios will see tomorrow, likely for discharge should discuss with him antibiotic options since she failed Augmentin however, it may have been a failure because the abscess needed drained follow up cultures taken today (2) Uncontrolled type 2 diabetes mellitus: HbA1C 11.8 in October. Holding Trulicity (usually takes 0.75mg SQ) Consult pharmacy for glycemic control with basal colus regimen T2DM diet HbA1c better at 8.4% monitor for hypoglycemia, no episodes (3) Opioid abuse: Noted history of this although certainly she has pathology consistent with her pain at present. add Oxycodone PRN today will likely need a very short term of pain medications on discharge (4) Liver cirrhosis: Noted history of this. Reduced acetaminophen max dose. (5) DVT prophylaxis: SCDs Admission and Anticipated Discharge Date Admission Date: February 10, 2020 Subjective patient seen after surgery this morning tolerated well, two teeth excised, fluid collections drained via submandibular incisions now with a lot of pain, but tolerating liquid diet no chest pain, no dyspnea, no cough, no fever no labs today no growth on blood cultures, fluid from submandibular space sent for culture by Dr. Rios Review of Systems Review of Systems: All systems reviewed & are unremarkable except as noted in HPI & below Constitutional: no fever, no chills and no sweats Ear, Nose, Mouth, Throat: + dental pain (severe right lower jaw pain), + dental caries and + dental abscess (right lower) Physical Exam Constitutional: WD/WN, vitals as above + overweight Eyes: PERRL, conjunctivae normal, anicteric sclerae ENMT: Nose: no nasal discharge and no sinus tenderness Mouth: + restricted motion of mouth (right jaw, swollen), + dentition abnormality (poor dentition), + gingival abnormality (erythematous), + dental caries and + loose teeth Neck: trachea midline and + submandibular swelling (right side, now with surgical incision) Thyroid: normal thyroid Respiratory: normal respiratory effort, lungs clear to auscultation Cardiovascular: RRR, no murmur, no edema Gastrointestinal (Abdomen): normal bowel sounds, soft, nontender, no hepatosplenomegaly Musculoskeletal: no cyanosis or clubbing, extremities motor strength 5/5 Skin: no rashes, warm and dry Neurologic: patellar DTR's 2+ bilat, sensation intact and PERRL, EOMI, accommodation nl, no face palsy, no dysarthria Psychiatric: A+Ox3, euthymic affect Lymphatic: no cervical or axillary lymphadenopathy Results & Data Results & Data ([facility]) Vital Signs (Past 12 Hours) Vital Signs Temp Pulse Pulse Resp BP Pulse Ox 02/10/20 13:45 82 18 142/86 H 98 02/10/20 12:45 36.8 C 85 18 135/89 94 02/10/20 12:30 65 18 120/70 98 02/10/20 12:15 61 20 119/72 97 02/10/20 12:05 67 15 123/76 95 02/10/20 11:55 63 19 142/78 H 96 02/10/20 11:45 73 16 157/84 H 97 02/10/20 11:35 36.8 C 80 15 138/78 100 02/10/20 09:23 37.2 C 74 14 126/73 98 02/10/20 07:02 37.1 C 79 18 146/89 H 98 Laboratory Results Microbiology 02/10/20 12:32 Mandibular,Right Gram Stain - Final Medications Administered Current Inpatient Medications Acetaminophen (Tylenol) 650 mg PO Q4HWA [facility] Stop: 03/09/20 20:59 Last Admin: 02/10/20 13:51 Dose: Not Given Documented by: Cyclobenzaprine HCl (Flexeril) 10 mg PO BID PRN PRN Reason: Muscle Spasm Stop: 03/09/20 20:09 Dextrose (Dextrose 50%) 25 - 50 ml IV UD PRN; Protocol PRN Reason: Hypoglycemia Protocol Stop: 03/09/20 19:44 Diclofenac Sodium (Voltaren 1% Top) 4 gm EXT QID PRN PRN Reason: Knee or back pain Stop: 03/09/20 20:29 Fluticasone/Vilanterol (Breo Ellipta 100/25 Mcg Inh) 1 puffs INH DAILY [facility] Stop: 03/10/20 08:59 Last Admin: 02/10/20 09:15 Dose: Not Given Documented by: Gabapentin (Neurontin) 1,200 mg PO TID YEN Stop: 03/09/20 20:59 Last Admin: 02/10/20 14:01 Dose: 1,200 mg Documented by: Glucagon (Glucagen) 1 mg IM UD PRN; Protocol PRN Reason: Hypoglycemia Protocol Stop: 03/09/20 19:44 Glucose (Glucose 40%) 15 - 30 gm PO UD PRN; Protocol PRN Reason: Hypoglycemia Protocol Stop: 03/09/20 19:44 Glucose (Dex4 Glucose) 4 - 8 tabs PO UD PRN; Protocol PRN Reason: Hypoglycemia Protocol Stop: 03/09/20 19:44 Hydralazine HCl (Hydralazine Hcl) 5 mg IV Q4H PRN PRN Reason: sBP > 200 Stop: 03/09/20 20:35 Hydromorphone HCl (Dilaudid) 0.5 mg IV Q4 PRN PRN Reason: Pain Stop: 02/24/20 14:39 Ampicillin Sodium/Sulbactam Sodium 3,000 mg/ Sodium Chloride 108 mls @ 200 mls/hr IV Q6H [facility]; Protocol Stop: 02/19/20 00:00 Last Admin: 02/10/20 14:01 Dose: 200 mls/hr Documented by: Lactated Ringer's (Lr) 1,000 mls @ 125 mls/hr IV .Q8H [facility] Stop: 03/09/20 20:14 Last Admin: 02/10/20 14:02 Dose: Not Given Documented by: Insulin Aspart (Novolog Flexpen) 0 units SC ACHS [facility] Stop: 03/11/20 16:29 Last Admin: 02/10/20 14:06 Dose: 4 units Documented by: Insulin Glargine (Lantus Solostar Pen) 0 units SC BID [facility]; Protocol Stop: 03/10/20 08:59 Last Admin: 02/10/20 09:15 Dose: 20 units Documented by: Ketorolac Tromethamine (Toradol) 30 mg IV Q6H PRN PRN Reason: Pain Stop: 02/13/20 20:01 Last Admin: 02/10/20 07:26 Dose: 30 mg Documented by: Miscellaneous (Carbohydrates For Hypoglycemia) 15 - 30 gm PO UD PRN PRN Reason: Hypoglycemia Treatment Stop: 03/09/20 19:44 Miscellaneous Information (Consult Glycemic Management Pharmacy) 1 ea N/A UD PRN PRN Reason: Consult Stop: 03/09/20 19:43 Nystatin (Mycostatin) 1 appln EXT PRN PRN PRN Reason: affected areas Stop: 03/09/20 20:29 Ondansetron HCl (Zofran) 4 mg IV Q6H PRN PRN Reason: Nausea Stop: 03/09/20 19:54 Oxycodone/Acetaminophen (Percocet 5mg/325mg) 1 tab PO Q4H PRN PRN Reason: Pain Stop: 02/24/20 13:52 Last Admin: 02/10/20 14:00 Dose: 1 tab Documented by: Polyethylene Glycol (Miralax Powder Packet) 17 gm PO DAILY PRN PRN Reason: Constipation Stop: 03/09/20 19:54 Promethazine HCl (Phenergan) 25 mg PO Q6H PRN PRN Reason: Nausea Stop: 03/09/20 20:14 Rizatriptan Benzoate (Maxalt) 5 mg PO ONCE PRN PRN Reason: Migraine Headache Stop: 03/09/20 20:33 PG Care Time/CCT Total # of Minutes Spent Total Time Spent with Patient: Total time spent is greater than 50% in coordination of care (as documented) at patient's floor/unit and/or counseling patient: Coding Level of Care Code 91885 Subseq Hosp Care Lvl 2 Diagnoses Periapical abscess with facial involvement K04.7 Uncontrolled type 2 diabetes mellitus E11.65 Opioid abuse F11.10 Liver cirrhosis K74.60 Hepatic cirrhosis type: unspecified hepatic cirrhosis DVT prophylaxis Z29.9 (1) Liver cirrhosis Hepatic cirrhosis type: unspecified hepatic cirrhosis
[2020-02-10] MEDS: HYDROmorphone INJ 0.5 MG/0.5 ML SYR IV PRN ×2 (16:04→19:58)
[2020-02-11] MEDS: HYDROmorphone INJ 0.5 MG/0.5 ML SYR IV PRN ×4 (00:01→12:58)
[2020-02-11] MEDS: AMPICILLIN/SULBACTAM SOD 3,000 MG in 0.9 % SODIUM CHLORIDE 100 ML IV SCH ×3 (00:02→12:48)
[2020-02-11] MEDS ORDERED: Nursing to Pharmacy Communication ONE (01:17)
[2020-02-11] MEDS: OXYCODONE/ACETAMINOPHEN 5mg/325mg TAB PO PRN ×3 (02:07→10:19)
[2020-02-11 05:13] LABS: Basophils # (auto) 0.02 K/uL (0-0.2); Basophils % (auto) 0.2 %; Eosinophils # (auto) 0.19 K/uL (0-0.5); Eosinophils % (auto) 1.7 %; Hematocrit (blood only) 37.7 % (37-47); Hemoglobin 12.8 g/dL (12.0-16.0); Immature Granulocytes # (auto) 0.03 K/uL (0.00-0.02); Immature Granulocytes % (auto) 0.3 %; Lymphocytes # (auto) 1.79 K/uL (1.2-3.4); Lymphocytes % (auto) 16.5 %; Mean Corpuscular Hemoglobin 31.7 pg (25-34); Mean Corpuscular Volume 93.3 fL (80-100); Mean Platelet Volume 10.4 fL (7.4-10.4); Monocytes # (auto) 0.59 K/uL (0.11-0.59); Monocytes % (auto) 5.4 %; Neutrophils # (auto) 8.25 K/uL (1.4-6.5); Neutrophils % (auto) 75.9 %; Platelet Count 115 K/uL (130-400); RDW Coefficient of Variation 15.3 % (11.5-14.5); RDW Standard Deviation 52.1 fL (36.4-46.3); Red Blood Count 4.04 M/uL (4.2-5.4); White Blood Count 10.87 K/uL (4.8-10.8)
[2020-02-11 05:40] LABS: BUN Creatinine Ratio 6.6 (10-20); Calcium 8.3 mg/dl (8.5-10.1); Creatinine Clr Calc Pharmacy 134.7 ml/min; Est GFR (African American) 119.7; Est GFR (Non-African American) 103.3; Potassium 3.8 mmol/L (3.5-5.1)
[2020-02-11] MEDS: ACETAMINOPHEN 325 MG TAB PO SCH ×2 (08:18→12:48)
[2020-02-11] MEDS: FLUTICASONE/VILANTEROL 100/25MCG 14 PUFFS/INHALER INH SCH (08:18)
[2020-02-11] MEDS: GABAPENTIN 600 MG TAB PO SCH ×2 (08:18→13:01)
[2020-02-11] MEDS: LACTATED RINGER'S 1,000 ML IV SCH (08:24)
[2020-02-11] MEDS: INSULIN GLARGINE SOLOSTAR 100 UNITS/ML 3 ML PEN SC SCH (08:50)
[2020-02-11] MEDS: INSULIN ASPART 100 UNITS/ML 3 ML PEN SC SCH ×2 (08:52→12:54)
--- NOTE | 2020-02-11 10:39 | Progress Note ---
Date of Service February 11, 2020 Assessment & Plan Admission and Anticipated Discharge Date Admission Date: February 10, 2020 Subjective Post Op infection evaluation The infected area is now draining very well. Swelling is gone and the tissue is responding well Much drainage is noted which is good. Drains--I will remove drains tuesday Am in my office Cultures were reviewed no growth and they will re-grow. Infection has responded very well to the antiobitics and the I and D I feel from my point of view that D/C vcan be planned tomorrow. She is still very uncomfortable complains of SOB and chest tightness. I requested that the patient continue with massage, heat and wound care. I would expect if hospital medicine agrees that D/C tomorrow would be more appropriate. I will order her post op meds--I feel that Augmentin 875 x 10 days now that the I&D and tooth extractions will be a good choice. We discussed pain management --given the condition of her teetj and recent surgery I will Rx Percocet--we did discuss her past issues with drug abuse understanding was expressed. I completed my part of her D/C instructions. Results & Data ([facility]) Vital Signs (Past 12 Hours) Vital Signs Temp Pulse Resp BP Pulse Ox 02/11/20 07:42 36.8 C 104 H 18 152/89 H 90 02/11/20 02:59 93 02/11/20 02:58 37.1 C 103 H 20 144/94 H 86 L 02/10/20 23:20 37.2 C 100 H 20 152/83 H 94 PG Care Time/CCT Total # of Minutes Spent Total Time Spent with Patient: Total time spent is greater than 50% in coordination of care (as documented) at patient's floor/unit and/or counseling patient: Coding Level of Care Code 19189 Subseq Hosp Care Lvl 1
[2020-02-11] MEDS: KETOROLAC 30 MG/ML VIAL IV PRN (10:42)
[2020-02-11] MEDS ORDERED: CHLORHEXIDINE GLUCONATE 0.12% 480 ML MT PRN (10:46)
[2020-02-11] MEDS ORDERED: OXYCODONE/ACETAMINOPHEN 5mg/325mg TAB PO PRN (13:24)
--- NOTE | 2020-02-11 13:52 | Discharge Summary ---
Date of Service February 11, 2020 Admission HPI Per Admitting Provider Elza Vick is a 49 year old female with uncontrolled diabetes mellitus who presents to the ER with facial pain ongoing since Tuesday last week. She was started on Augmentin by her PCP. Despite this her pain worsened to the extent she is now finding it difficult to eat. Current pain severity 8/10 over right lower jaw. Associated increased swelling. No fevers but she has experienced chills. Currently not having any problems with her chronic knee and back pain. Principal Diagnosis Periapical dental abscess and facial cellulitis Discharge Exam Constitutional WD/WN, vitals as above Eyes + anicteric sclerae ENMT Right mandible with mild erythema and induration with drain in place draining purulent fluid, able to open mouth, mucous membranes moist, eating mashed potatoes when I saw her Neck trachea midline, no thyromegaly Respiratory normal respiratory effort, lungs clear to auscultation Cardiovascular RRR, no murmur, no edema Chest (Breasts) Chest: normal inspection of chest Gastrointestinal (Abdomen) normal bowel sounds, soft, nontender, no hepatosplenomegaly Musculoskeletal Extremities: extremities normal to inspection; no cyanosis and no clubbing Skin no rashes, warm and dry Neurologic moves all extremities and awake; no focal motor deficits Psychiatric A+Ox3, euthymic affect Lymphatic no lymphedema Discharge Data Allergies Allergy/AdvReac Type Severity Reaction Status Date / Time cephalexin AdvReac Severe Vomiting Verified 02/08/20 19:30 levofloxacin [From Levaquin] AdvReac Vomiting Verified 02/08/20 19:30 Consultations 02/08/20 17:32 Consult Oromaxillofacial Surgery Stat ED Decision to Admit Stat Procedures Performed Operation Date: 02/10/20 10:00 Actual Procedures p Right Submandibular Incision and Drainage of oral abcess,(Right) - Vahe Rios DMD s Extraction of #28 and #31(Right) - Vahe Rios DMD Ordered Studies 02/08/20 17:06 CT soft tissue neck w con Stat Hospital Course (1) Periapical abscess with facial involvement: Failed outpatient therapy with Augmentin Confirmed abscess on CT at time of admission Received Unasyn IV 3g Q6H s/p incision and drainage of submandibular fluid collection two affected teeth extracted Much improved, leukocytosis is almost completely resolved, remains afebrile Is tolerating a soft diet and is stable for discharge as per my discussion with [facility] today -Finish out a course of Augmentin for 10 days at home -Dr. Rios prescribed a small/short course of extra Percocet for pain -She can also continue Motrin as per home medication reconciliation as needed for pain -She will follow-up with surgeon on Tuesday for drain removal (2) Uncontrolled type 2 diabetes mellitus: HbA1C 11.8 in October. Holding Trulicity (usually takes 0.75mg SQ) but will restart on discharge HbA1c better at 8.4% here Recommend reducing Lantus dose to 40 units twice a day at least temporarily as she is not likely to be eating as much given her dental infection-of note, she was only requiring Lantus 30 units twice a day in the last 24 hours -Follow-up with PCP (3) Opioid abuse: Noted history of this although certainly she has pathology consistent with her pain at present. Dr. Rios prescribed her a short course of Percocet upon discharge (4) Liver cirrhosis: Noted history of this. Reduced acetaminophen max dose. -With mild thrombocytopenia also likely secondary to this -Follow-up as an outpatient with PCP/GI (5) DVT prophylaxis: SCDs Disposition-stable for discharge to home Total Time Total Time Spent Total Time Spent (In Minutes): 35 min Total Time Includes: Examination of the Patient, Discharge Planning, Medication Reconciliation and Communication With Other Providers (Dr. Rios of [facility]) Discharge Plan Discharge Items Patient Disposition: Home - Self-Care Reason For Visit: FACIAL PAIN Discharge Diagnosis: Acute facial infection right neck and floor of mouth Condition on Discharge: Good Activity: Resume your previous activity Lifting: Gradually increase as tolerated Bathing: No limitations Bathing Comment: you can get the dressing wet or keep off, keep area clean Exercise/Sports: Gradually increase as tolerated Weightbearing: Full weightbearing Non-emergency contact: Surgeon Call non-emergency contact if: you have any medication questions, your temperature is above 101.5, your wound has increased redness, your wound has increased drainage and your wound pain has increased Follow-up/Referrals: Aneudy Pérez MD [Primary Care Provider] - Vahe Rios DMD [Physician] - Dietitian Info: diet as tolerated Diet: Carb Consistent or DM2 Diet Texture: Easy to Chew Addtl Attending Provider Instructions: Please finish out the course of Augmentin twice a day as prescribed by Dr. Rios. He also prescribed you a small supply of Percocet for pain control. Please follow-up with him as planned this Tuesday to remove the drain and for a checkup. [facility], GENERAL POST-OPERATIVE INSTRUCTIONS FOR PATIENTS HAVING JAW SURGERY POST-OP INSTRUCTIONS BLEEDING: Will be under control by the time you leave our operating room. Some oozing or blood-tinged saliva may persist for up to 24 hours. Should excessive bleeding occur call the office or Dr. Rios. Expect nasal oozing for a few days. This also will occur after getting up or after you shower. PAIN: Is best controlled by the medications recommended. They are most effective when taken before the local anesthesia diminishes and normal sensation returns to the area. Do not take pain pills on an empty stomach. Narcotic pain medication such as Vicodin or Percocet may cause nausea, vomiting, drowsiness, dizziness, itching or constipation. If these side effects occur, discontinue the medication. You may take an alternative over the counter pain medication (Tylenol or Motrin) as necessary or call our office for assistance. SWELLING: May occur immediately and increase gradually over 24-48 hours. Swelling from the surgical procedure will maximize at 48-72 hours. Ice packs applied externally to the area at 20 minute intervals throughout the day of surgery may help control swelling, but only use them if advised to by our office. Sleeping with the head of bed elevated above the level of the heart for the first two post-operative nights may tend to lessen swelling. NAUSEA: May result from a general anesthetic or the drugs prescribed for pain. Drinking a small glass of a carbonated beverage will generally control mild nausea. If not controlled, call the office. The Zofran ODT may be used as instructed. DIET: Soft foods and liquids will be required for 24-48 hours following surgery. Avoid hot, spicy foods. Do not smoke. ORAL HYGIENE: Should not be neglected. [place] your teeth as usual and rinse with warm salt water after each meal beginning gently the night of surgery. Use Peridex twice a day. Other mouth rinses can be used to keep your mouth clean. ACTIVITY: Should be restricted to a minimum for the first 7 -10 days. Strenuous work or exercise may promote bleeding. If you have had a general anesthetic or sedation, we must require that you be accompanied home by a responsible adult and an adult stays with you until recovered from the effects of the anesthesia. Under no circumstances are you to drive a car for at least 24 hours. FEVER: After surgery it is normal for the body temperature to be slightly elevated for 24 hours. SIDE EFFECTS: Such as an ear ache, temporary ache of adjacent teeth, restricted mouth opening, stretching or cracking at the corners of the mouth or discoloration of the skin may occur postoperatively. These are temporary conditions that will improve as healing progresses. As a result of the surgery your bite will feel off, this is normal. Your lower and upper lip will also feel numb as a result of the surgery; over time this will subside. EMERGENCIES: In case of profuse bleeding, uncontrolled pain, persistent nausea or abnormal elevation of temperature, if you have any questions about these instructions or your surgery please call our office or Dr. Arredondo cell phone. Our goal is to make this procedure as safe and pleasant as possible. Email Dr. Rios---[email or web address] Phone Dr. Rios after hours and weekends, Pending Studies at Discharge: Yes (Final cultures from the abscess) Stand-Alone Forms: My [facility] [employer], Opioid Pain Management, Smoking Cessation Medications and DC Order Prescriptions: Continued cyclobenzaprine 10 mg Tablet 10 mg PO BID PRN (Reason: Muscle Spasm) Qty: 0 RF: 0 gabapentin 600 mg Tablet 1,200 mg PO TID Qty: 0 RF: 0 albuterol sulfate [Ventolin HFA] 90 mcg/actuation Hfa Aerosol Inhaler 2 puff INHALATION Q4H PRN (Reason: Shortness Of Breath Or Wheezing) Qty: 0 RF: 0 (DME) OneTouch Verio Strip See Rx Instructions .ROUTE .MEDSUPPLY Qty: 150 RF: 5 Trulicity 0.75 mg/0.5 mL pen injector 0.75 mg SQ WEEKLY Qty: 4 RF: 5 oxycodone-acetaminophen [Percocet] 5-325 mg tablet 1 tab PO Q4H PRN (Reason: pain) Qty: 28 RF: 0 (DME) lancets [OneTouch Delica Plus Lancet] 33 gauge misc See Rx Instructions .ROUTE .MEDSUPPLY Qty: 180 RF: 5 diclofenac sodium [Voltaren] 1 % gel 4 g topical QID PRN (Reason: Pain) RF: 0 rizatriptan 5 mg tablet 5 mg PO DIRECTED PRN (Reason: Migraine Headache) RF: 0 nystatin 100,000 unit/gram powder 1 applic TOPICAL DIRECTED RF: 0 ibuprofen 800 mg tablet 800 mg PO TID PRN (Reason: Pain) RF: 0 promethazine 25 mg tablet 25 mg PO Q6H PRN (Reason: Nausea) RF: 0 insulin aspart U-100 [Novolog Flexpen U-100 Insulin] 100 unit/mL (3 mL) insulin pen See Rx Instructions .ROUTE .COMPLEX RF: 0 fluticasone propion-salmeterol 232-14 mcg/actuation aerosol powdr breath activated 1 puff inhalation BID RF: 0 amoxicillin-pot clavulanate [Augmentin] 875-125 mg tablet 1 tab PO BID RF: 0 Changed Lantus Solostar U-100 Insulin 100 unit/mL (3 mL) insulin pen 40 unit SUBCUT BID Qty: 0 RF: 0 Discontinued amoxicillin-pot clavulanate 875-125 mg tablet 1 tab PO Q12H Qty: 20 RF: 0 oxycodone-acetaminophen [Percocet] 10-325 mg tablet 1 tab PO Q6H PRN (Reason: pain) Qty: 20 RF: 0 budesonide-formoterol [Symbicort] 160-4.5 mcg/actuation HFA aerosol inhaler 2 puff INHALATION BID RF: 0 Discharge Orders: Discharge Order (Routine); Ordered 02/11/20 Ordered By: Sonya Leonardo/Other Patient Handouts: ED ABSCESS DENTAL, ED Abscess Tooth Admission Data Admit Date/Time: 02/10/20 12:07 Attending Provider: Sonya Glaser Admit Provider: Gerard [place] Primary Care Provider: Aneudy Pérez Other Providers: Vahe Rios ; Gerard Park Coding Level of Care Code D/C Day Management >30 mins Diagnoses Periapical abscess with facial involvement K04.7 Uncontrolled type 2 diabetes mellitus E11.65 Opioid abuse F11.10 Liver cirrhosis K74.60 Hepatic cirrhosis type: unspecified hepatic cirrhosis DVT prophylaxis Z29.9
--- NOTE | 2020-02-12 21:16 | Anesthesiology Progress Note ---
Date of Service February 10, 2020 Anesthesia Post Procedure Pain Intensity Right Teeth: Pain Intensity: 10 Head: Pain Intensity: 5 Right Lower Jaw: Pain Intensity: 8 Transfer of Care Handoff Completed per policy Notes Mental Status: alert / awake / arousable and participated in evaluation Patient Amnestic to Procedure: Yes Nausea / Vomiting: adequately controlled Pain: adequately controlled Airway Patency, RR, SpO2: stable & adequate BP & HR: stable & adequate Hydration State: stable & adequate Anesthetic Complications: no major complications apparent and Pt Satisfied with anesthetic care
== END 2020-02-11 16:15 | disposition home or self-care (01) | DRG 158 ==
LOC: ED 16:03 → 3E 16:03 → SUATTDRO 18:32 → 3E 19:01 → SUATTDRO 02-10 12:07

== ENCOUNTER 2020-03-21 10:06 | Observation (INO) ==
[2020-03-21] MEDS ORDERED: SODIUM CHLORIDE 0.9% 1000ML 1,000 ML IV SCH (11:09)
--- NOTE | 2020-03-21 11:16 | Emergency Department Note ---
History of Present Illness General Chief complaint: Skin Problem Stated complaint: BOIL UNDER ARM AND LEG, DENTAL ISSUES Time Seen by Provider: 03/21/20 10:41 History of Present Illness Maximum Pain Intensity: 5 Patient is a 49-year-old female who is referred to the emergency department by [facility], Dr. Rios, for left-sided dental abscess. Patient has a past medical history including poorly controlled diabetes, liver cirrhosis, morbid obesity, hypertension and COPD. She was seen and admitted here 1 month ago for right sided dental abscess, and underwent surgical I&D and extraction by Dr. Rios. The right side has been healing well. Patient notes that she has had increasing left lower dental pain over the last 7 to 10 days, much worse in the last 2 days. She notes pain and throbbing from the remaining left lower molars. She relates that she had an appointment with Dr. Rios this morning and he referred her to the emergency department for "severe dental infection left lower side, failed outpatient treatment." Patient also notes that she developed a small abscess in the left groin 4 days ago. She had a telemedicine visit with her primary care provider 2 days ago, he started her on Augmentin. She was applying warm compresses to the area and it was draining. She spoke with him by phone yesterday when her symptoms were not improving and he switched her to clindamycin. She has had a total of 4 doses of clindamycin. They were trying to cover for both oral and skin sources with the antibiotics. She notes that the left groin abscess is batch or continuous still operator, but is no longer draining. She also noticed a painful lump in the right axilla when in the shower this morning and is concerned she could be developing an abscess there. She denies fevers, has had chills. She does have a history of MRSA. Home Medications Home Medications Medication Instructions Recorded Confirmed Type cyclobenzaprine 10 mg PO BID PRN #0 11/18/17 03/21/20 History gabapentin 1,200 mg PO TID #0 tab 11/18/17 03/21/20 History albuterol sulfate [Ventolin HFA] 2 puff INHALATION Q4H PRN #0 02/10/18 03/21/20 History diclofenac sodium [Voltaren] 4 g TOPICAL QID PRN 01/05/19 03/21/20 History rizatriptan 5 mg PO DIRECTED PRN 06/16/19 03/21/20 History ibuprofen 800 mg PO TID PRN 10/24/19 03/21/20 History promethazine 25 mg PO Q6H PRN 10/24/19 03/21/20 History insulin aspart U-100 [Novolog See Rx Instructions .ROUTE .COMPLEX 10/29/19 03/21/20 History Flexpen U-100 Insulin] OneTouch Delica Plus Lancet 33 #180 ea NS 11/02/19 02/15/20 Rx gauge OneTouch Verio test strips #150 ea NS 11/05/19 02/15/20 Rx Trulicity 0.75 mg/0.5 mL 0.75 mg SQ WEEKLY #4 pen NS 12/11/19 03/21/20 Rx subcutaneous pen injector Lantus Solostar U-100 Insulin 40 unit SUBCUT BID #0 ml 02/11/20 03/21/20 Rx oxycodone-acetaminophen 10 mg-325 1 tab PO Q6H PRN #20 tab 02/11/20 Rx mg tablet clindamycin HCl 150 mg capsule 150 mg PO BID cap 03/21/20 03/21/20 History Allergies Allergy/AdvReac Type Severity Reaction Status Date / Time cephalexin AdvReac Severe Vomiting Verified 03/21/20 12:05 levofloxacin [From Levaquin] AdvReac Vomiting Verified 03/21/20 12:05 Past Med/Surg History Medical History Anxiety Brain cyst Chronic low back pain with left-sided sciatica Chronic obstructive pulmonary disease Depression Emphysema of lung Hx of blood clots Hypertension (Chronic) Insulin dependent diabetes mellitus (Chronic) Obesity Pulmonary embolism Uncontrolled type 2 diabetes mellitus (Chronic) Surgical History History of laparoscopic cholecystectomy Hx of oral surgery (02/15/20) Acute right submandibular, submental space infection with floor of mouth infection caused by infected lower teeth. Dr. Rios 02/15/20 S/P laparoscopic hernia repair Social History Preferred Language: Turkish Communication Ability: Effective Visual Impairment: No Limitations Grant Officer Required: No Beliefs That Will Affect Care: None marital status: Current Living Situation: Alone Current Living Situation Comment: lives with 13 year old daughter current occupational status: unemployed Other Information That Helps Us Care for You: No Feels Safe at Home: Yes Safety Concerns: Feels Safe At This Time Smoking Status: Current every day smoker Tobacco Type: cigarettes ; Cigarettes Per Day: 5 ; Second Hand Exposure: Yes ; Hx Alcohol Use: No Hx Substance Use: No Review of Systems A total of 10 systems reviewed and were otherwise negative Physical Exam Vital Signs Vital Signs - 24 hr 03/21/20 10:11 03/21/20 11:27 03/21/20 11:31 Temperature 37 C Temperature Source Oral Pulse Rate 100 H 93 H 92 H Pulse Rate from SpO2 Sensor Pulse Rhythm Regular Pulse Strength Normal Respiratory Rate 22 20 17 Respiratory Effort / Characteristics Non-Labored Spontaneous Respiratory Depth Normal Respiratory Pattern Regular Blood Pressure 183/137 H 136/91 138/97 Blood Pressure Mean 152 98 108 Blood Pressure Position Sitting Pulse Oximetry 98 97 97 Oxygen Delivery Method Room Air Sepsis Recent Fever Within 48 Hours No Sepsis Action Taken by Nursing No Action Required 03/21/20 12:00 03/21/20 12:30 03/21/20 13:00 Temperature Temperature Source Pulse Rate Pulse Rate from SpO2 Sensor 90 97 H 103 H Pulse Rhythm Pulse Strength Respiratory Rate Respiratory Effort / Characteristics Respiratory Depth Respiratory Pattern Blood Pressure 132/95 101/54 L 115/69 Blood Pressure Mean 107 66 79 Blood Pressure Position Pulse Oximetry 96 95 94 Oxygen Delivery Method Room Air Room Air Room Air Sepsis Recent Fever Within 48 Hours Sepsis Action Taken by Nursing 03/21/20 14:37 Temperature Temperature Source Pulse Rate 77 Pulse Rate from SpO2 Sensor Pulse Rhythm Pulse Strength Respiratory Rate 18 Respiratory Effort / Characteristics Respiratory Depth Respiratory Pattern Blood Pressure 114/74 Blood Pressure Mean Blood Pressure Position Pulse Oximetry 97 Oxygen Delivery Method Room Air Sepsis Recent Fever Within 48 Hours Sepsis Action Taken by Nursing CONSTITUTIONAL: Patient is an overweight, otherwise well-appearing 49-year-old female who is awake and alert and in no acute distress. She is noted to be hypertensive and slightly tachycardic in triage. EYES: Pupils equal, round, reactive to light and accommodation. EOMs intact without nystagmus. Sclera are anicteric. ENT: Tympanic membranes intact, with normal landmarks. External canals are clear. Nasopharynx is clear. Examination of the oropharynx note grossly decayed left lower molars, with surrounding gingival inflammation and swelling with erythema. There is purulent drainage noted. Extraction sites on the right mandibular side are well-healed. No focal abscess on the left appreciated. Mucous membranes are moist, no lesions, tongue and gums appear normal. There is no facial swelling or erythema appreciated. NECK: No bruits auscultated. Supple without lymphadenopathy. No thyromegaly. No meningeal signs. Full active range of motion without discomfort. CARDIOVASCULAR: Regular rate and rhythm. Peripheral pulses easy to palpable. RESPIRATORY: Breath sounds equal and clear to auscultation MUSCULOSKELETAL: Full range of motion of extremities x 4 with good strength. No cyanosis, edema, joint tenderness or swelling. No deformity. INTEGUMENTARY: Examination of the right axilla does not note any erythema, swelling or acute abnormality. The area in question in the right mid axillary region is slightly tender to palpation, but no focal induration or fluctuance is appreciated. In the left inguinal/vulvar region, there is a tender, slightly erythematous subcutaneous mass consistent with a decompressed abscess. There is erosion centrally, where it has drained recently, there is no fluctuance. There is no drainage with palpation of the area. Left inguinal lymph nodes are slightly enlarged. No lymphangitis. NEUROLOGICAL: Alert, oriented, and cooperative. Cranial nerves, sensation and strength grossly intact. Pupils round, equal, and react to light, EOMs are full. LYMPH: No lymphadenopathy. Course Course The patient was seen and assessed as above. Her old records were reviewed including her recent hospitalization and operative course. She was referred to the emergency department jointly by her PCP and [facility] for left sided dental abscess, with an associated left vulvar subcutaneous abscess which appears to be decompressed. Clinically does not appear to require I&D at this time. The site in her right axilla is also not palpable and not amenable to any type of aspirate or intervention. She was referred to the emergency department due to her comorbidities, as well as failed outpatient management of the dental/subcutaneous abscesses. She previously required hospitalization for IV antibiotics prior to oral surgery 1 month ago, and it is anticipated she will require the same today. I did speak with Dr. Rios after assessing the patient, who agrees with admission to the medical team, with appropriate antibiotic coverage, and will plan to take her to the OR when she is medically stable. IV lock was initiated and laboratory studies were collected. Laboratory studies noted a normal white count at 7600, no left shift or bandemia. No anemia. Coags are normal. Electrolytes are within normal limits. Renal functions are normal. Glucose is elevated at 445. Urine microscopy notes 3+ glucose, otherwise is clear without signs of UTI. Blood cultures are pending. She was given Unasyn 3 g IV empirically. She was hydrated with normal saline solution. Consultation was placed with the [facility] Hospitalist, Dr. Park. Please refer to his dictation for further information regarding admission/observation. Administered Medications Discontinued Medications Sodium Chloride (Nss 1000ml) 1,000 mls @ 999 mls/hr IV .Q1H1M YEN Stop: 03/21/20 12:09 Last Infusion: 03/21/20 13:05 Dose: 0 mls/hr Documented by: [id number] Admin: 03/21/20 11:28 Dose: 999 mls/hr Documented by: [id number] Ampicillin Sodium/Sulbactam Sodium 3,000 mg/ Sodium Chloride 108 mls @ 200 mls/hr IV NOW STA; Protocol Stop: 03/21/20 12:28 Last Infusion: 03/21/20 13:05 Dose: 0 mls/hr Documented by: [id number] Admin: 03/21/20 12:07 Dose: 200 mls/hr Documented by: [id number] Medical Decision Making Differential Diagnosis Differential diagnoses include facial cellulitis, dental abscess, Sagar's angina, subcutaneous cyst versus abscess versus cellulitis, among others. Medical Records Attestation: I reviewed the patient's medical records. Home Medications Current Medication List: was personally reviewed by me Laboratory Data Attestation: I reviewed the patient's lab results. Result diagrams: 03/21/20 11:45 03/21/20 11:45 Lab Results 03/21/20 03/21/20 03/21/20 Range/Units 11:45 11:45 11:45 WBC 7.64 (4.8-10.8) K/uL RBC 4.28 (4.2-5.4) M/uL Hgb 13.7 (12.0-16.0) g/dL Hct 38.9 (37-47) % MCV 90.9 (80-100) fL MCH 32.0 (25-34) pg MCHC 35.2 (32-36) g/dL RDW Std Deviation 47.8 H (36.4-46.3) fL RDW Coeff of Kelli 14.3 (11.5-14.5) % Plt Count 144 (130-400) K/uL MPV 11.5 H (7.4-10.4) fL Immature Gran % (Auto) 0.3 % Neut % (Auto) 58.8 % Lymph % (Auto) 29.7 % Jess[place] % (Auto) 7.9 % Eos % (Auto) 3.0 % Baso % (Auto) 0.3 % Immature Gran # (Auto) 0.02 (0.00-0.02) K/uL Neut # (Auto) 4.50 (1.4-6.5) K/uL Lymph # (Auto) 2.27 (1.2-3.4) K/uL Jess[place] # (Auto) 0.60 H (0.11-0.59) K/uL Eos # (Auto) 0.23 (0-0.5) K/uL Baso # (Auto) 0.02 (0-0.2) K/uL PT 11.3 (9.0-12.0) Seconds INR 1.1 (0.9-1.1) APTT 26.8 (21.0-31.0) Seconds PTT Ratio 1.0 Sodium 135 L (136-145) mmol/L Potassium 3.7 (3.5-5.1) mmol/L Chloride 105 (98-107) mmol/L Carbon Dioxide 24 (21-32) mmol/L Anion Gap 7.0 (3-11) BUN 6 L (7-18) mg/dl Creatinine 0.80 (0.6-1.2) mg/dl Est Cr Clr Drug Dosing 109.7 ml/min Est GFR ( Amer) 98.9 Est GFR (Non-Af Amer) 85.4 BUN/Creatinine Ratio 8.0 L (10-20) Glucose 445 H* (70-99) mg/dl Calcium 9.6 (8.5-10.1) mg/dl Beta-Hydroxybutyric Acd TNP Urine Color Urine Appearance (Clear) Urine pH (4.5-7.5) Ur Specific [place] (1.000-1.030) Urine Protein (Negative) Urine Glucose (UA) (Negative) Urine Ketones (Negative) Urine Blood (Negative) Urine Nitrite (Negative) Urine Bilirubin (Negative) Urine Urobilinogen (Negative) Ur Leukocyte Esterase (Negative) Urine WBC (Auto) (0-5) /hpf Urine RBC (Auto) (0-4) /hpf U Hyaline Cast (Auto) (0-5) /lpf U Epithel Cells (Auto) (0-5) /lpf Urine Bacteria (Auto) (Negative) 03/21/20 Range/Units 11:47 WBC (4.8-10.8) K/uL RBC (4.2-5.4) M/uL Hgb (12.0-16.0) g/dL Hct (37-47) % MCV (80-100) fL MCH (25-34) pg MCHC (32-36) g/dL RDW Std Deviation (36.4-46.3) fL RDW Coeff of Kelli (11.5-14.5) % Plt Count (130-400) K/uL MPV (7.4-10.4) fL Immature Gran % (Auto) % Neut % (Auto) % Lymph % (Auto) % [place] % (Auto) % Eos % (Auto) % Baso % (Auto) % Immature Gran # (Auto) (0.00-0.02) K/uL Neut # (Auto) (1.4-6.5) K/uL Lymph # (Auto) (1.2-3.4) K/uL Jess[place] # (Auto) (0.11-0.59) K/uL Eos # (Auto) (0-0.5) K/uL Baso # (Auto) (0-0.2) K/uL PT (9.0-12.0) Seconds INR (0.9-1.1) APTT (21.0-31.0) Seconds PTT Ratio Sodium (136-145) mmol/L Potassium (3.5-5.1) mmol/L Chloride (98-107) mmol/L Carbon Dioxide (21-32) mmol/L Anion Gap (3-11) BUN (7-18) mg/dl Creatinine (0.6-1.2) mg/dl Est Cr Clr Drug Dosing ml/min Est GFR ( Amer) Est GFR (Non-Af Amer) BUN/Creatinine Ratio (10-20) Glucose (70-99) mg/dl Calcium (8.5-10.1) mg/dl Beta-Hydroxybutyric Acd Urine Color Yellow Urine Appearance Clear (Clear) Urine pH 5.5 (4.5-7.5) Ur Specific [place] 1.030 (1.000-1.030) Urine Protein Trace H (Negative) Urine Glucose (UA) 3+ H (Negative) Urine Ketones Negative (Negative) Urine Blood Negative (Negative) Urine Nitrite Negative (Negative) Urine Bilirubin Negative (Negative) Urine Urobilinogen Negative (Negative) Ur Leukocyte Esterase Negative (Negative) Urine WBC (Auto) 1-5 (0-5) /hpf Urine RBC (Auto) 0-4 (0-4) /hpf U Hyaline Cast (Auto) 1-5 (0-5) /lpf U Epithel Cells (Auto) 20-30 H (0-5) /lpf Urine Bacteria (Auto) Negative (Negative) Blood Pressure Blood Pressure Findings: Elevated blood pressure Blood Pressure Disposition: elevated BP felt to be situational MDM Narrative See ED course. Impression & Plan Dental abscess, Failure of outpatient treatment, Abscess of skin or subcutaneous tissue Discharge Plan Visit Data Chief Complaint: Skin Problem Stated Complaint: BOIL UNDER ARM AND LEG, DENTAL ISSUES ED Provider: Ok Souza ED Midlevel Provider: Deya Koch Discharge Problem: Dental abscess, Failure of outpatient treatment, Abscess of skin or subcutaneous tissue Patient Disposition: Being Evaluated by Hospitalist Discharge Instructions Interventions: ED Discharge Assessment Last Done: 03/21/20 14:37 Forms Stand Alone Forms: [facility] Prescriptions Prescriptions: No Action cyclobenzaprine 10 mg Tablet 10 mg PO BID PRN (Reason: Muscle Spasm) Qty: 0 RF: 0 gabapentin 600 mg Tablet 1,200 mg PO TID Qty: 0 RF: 0 albuterol sulfate [Ventolin HFA] 90 mcg/actuation Hfa Aerosol Inhaler 2 puff INHALATION Q4H PRN (Reason: Shortness Of Breath Or Wheezing) Qty: 0 RF: 0 (DME) Goldcoll GamesTouch Verio test strips Strip See Rx Instructions .ROUTE .MEDSUPPLY Qty: 150 RF: 5 Trulicity 0.75 mg/0.5 mL pen injector 0.75 mg SQ WEEKLY Qty: 4 RF: 5 clindamycin HCl 150 mg capsule 150 mg PO BID RF: 0 (DME) lancets [OneTouch Delica Plus Lancet] 33 gauge misc See Rx Instructions .ROUTE .MEDSUPPLY Qty: 180 RF: 5 diclofenac sodium [Voltaren] 1 % gel 4 g topical QID PRN (Reason: Pain) RF: 0 rizatriptan 5 mg tablet 5 mg PO DIRECTED PRN (Reason: Migraine Headache) RF: 0 ibuprofen 800 mg tablet 800 mg PO TID PRN (Reason: Pain) RF: 0 promethazine 25 mg tablet 25 mg PO Q6H PRN (Reason: Nausea) RF: 0 insulin aspart U-100 [Novolog Flexpen U-100 Insulin] 100 unit/mL (3 mL) insulin pen See Rx Instructions .ROUTE .COMPLEX RF: 0 Lantus Solostar U-100 Insulin 100 unit/mL (3 mL) insulin pen 40 unit SUBCUT BID Qty: 0 RF: 0 Referrals Referrals: Aneudy Pérez MD [Primary Care Provider] - Discharge Problem: Abscess of skin or subcutaneous tissue Qualifiers: Site of cutaneous abscess: other site Qualified Code(s): L02.818 - Cutaneous abscess of other sites
[2020-03-21] MEDS ORDERED: AMPICILLIN/SULBACTAM SOD 3,000 MG in 0.9 % SODIUM CHLORIDE 100 ML IV STA (11:56)
[2020-03-21 12:03] LABS: Basophils # (auto) 0.02 K/uL (0-0.2); Basophils % (auto) 0.3 %; Eosinophils # (auto) 0.23 K/uL (0-0.5); Hematocrit (blood only) 38.9 % (37-47); Hemoglobin 13.7 g/dL (12.0-16.0); Immature Granulocytes # (auto) 0.02 K/uL (0.00-0.02); Immature Granulocytes % (auto) 0.3 %; Lymphocytes # (auto) 2.27 K/uL (1.2-3.4); Lymphocytes % (auto) 29.7 %; Mean Corpuscular Hgb Conc 35.2 g/dL (32-36); Mean Corpuscular Volume 90.9 fL (80-100); Mean Platelet Volume 11.5 fL (7.4-10.4); Monocytes % (auto) 7.9 %; Neutrophils % (auto) 58.8 %; Platelet Count 144 K/uL (130-400); RDW Coefficient of Variation 14.3 % (11.5-14.5); RDW Standard Deviation 47.8 fL (36.4-46.3); Red Blood Count 4.28 M/uL (4.2-5.4); White Blood Count 7.64 K/uL (4.8-10.8)
[2020-03-21 12:07] LABS: Appearance Urine Clear (Clear); Bacteria Urine Automated Negative (Negative); Bilirubin Urine Negative (Negative); Blood Urine Negative (Negative); Color Urine Yellow; Epithelial Cell Urine Auto 20-30 /lpf (0-5); Glucose Urine UA 3+ (Negative); Ketones Urine Negative (Negative); Leukocyte Esterase Urine Negative (Negative); Nitrite Urine Negative (Negative); Protein Urine Trace (Negative); RBC Urine Automated 0-4 /hpf (0-4); Urobilinogen Urine Negative (Negative); pH Urine 5.5 (4.5-7.5)
[2020-03-21 12:13] LABS: INR 1.1 (0.9-1.1); Partial Thromboplastin Time 26.8 Seconds (21.0-31.0); Prothrombin Time 11.3 Seconds (9.0-12.0)
[2020-03-21 12:24] LABS: Blood Urea Nitrogen 6 mg/dl (7-18); Calcium 9.6 mg/dl (8.5-10.1); Carbon Dioxide 24 mmol/L (21-32); Chloride 105 mmol/L (98-107); Creatinine Clr Calc Pharmacy 109.7 ml/min; Est GFR (African American) 98.9; Est GFR (Non-African American) 85.4; Glucose 445 mg/dl (70-99); Potassium 3.7 mmol/L (3.5-5.1); Sodium 135 mmol/L (136-145)
[2020-03-21] MEDS ORDERED: PHARMACY GLYCEMIC MGMT CONSULT STA (13:35)
--- NOTE | 2020-03-21 13:53 | History & Physical Report ---
Date of Service March 21, 2020 Assessment & Plan (1) Dental abscess: As per Dr Rios recommended IV antibiotics IV Unasyn 3g Q6H Minced and moist food Consult ENT surgery (Dr Rios) - will defer imaging to Dr Rios if necessary (2) Failure of outpatient treatment: On clindamycin and Augmentin outpatient for > 48 hours without improvement (3) Opioid abuse: Noted history of this but did well after last tooth abscess coming off opioid medication, Preferentially use Toradol to other pain meds. (4) Diabetes: Hyperglycemia on admission which is not unusual for her. HbA1C actually improved to 8.4 in February. Since this is recent, no plans on repeating. Consult glycemic control (5) Skin abscess: This appears to be resolved at the current time, no need to continue on clindamycin. Most likely would be covered by Unasyn anyway. Groin and under right armpit (6) Liver cirrhosis: Noted prior appearance of this on CT Follow up outpatient Suspect [facility]ON although never had biopsy as per patient (7) Tinea cruris: Nystatin powder under skin folds (8) DVT prophylaxis: If not surgery planned tomorrow consider chemical prophylaxis Admission and Anticipated Discharge Date Admission Date: 03/21/2020 History of Present Illness Chief Complaint: Left lower facial pain Primary Care Provider: Aneudy Pérez MD Elza Vick is a 49 year old female well known to me from prior admissions with uncontrolled T2DM and history of opiate use disorder female who presents to the ER today on advice of Dr Rios and her PCP Dr Pérez due to ongoing left lower facial pain. She was admitted at the beginning of February for a similar pain on the right side and subsequently required surgery due to infected lower teeth with submental space and floor of mouth infection. On this occasiona she was prescribed both clindamycin and Augmentin for suspected dental abscess and cellulitis/skin abscess without any improvement with her pain since Tuesday therefore was advised to go to the ER. She denies any diarrhea and has no history of c. diff. 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 She notes she has been having chills but no objective fevers. No fever, shortness of breath, cough, loss of platt or smell. No known COVID-19 exposure. Allergies Allergy/AdvReac Type Severity Reaction Status Date / Time cephalexin AdvReac Severe Vomiting Verified 03/21/20 12:05 levofloxacin [From Levaquin] AdvReac Vomiting Verified 03/21/20 12:05 Home Medications Home Medications Medication Instructions Recorded Confirmed Type cyclobenzaprine 10 mg PO BID PRN #0 11/18/17 03/21/20 History gabapentin 1,200 mg PO TID #0 tab 11/18/17 03/21/20 History albuterol sulfate [Ventolin HFA] 2 puff INHALATION Q4H PRN #0 02/10/18 03/21/20 History diclofenac sodium [Voltaren] 4 g TOPICAL QID PRN 01/05/19 03/21/20 History rizatriptan 5 mg PO DIRECTED PRN 06/16/19 03/21/20 History ibuprofen 800 mg PO TID PRN 10/24/19 03/21/20 History promethazine 25 mg PO Q6H PRN 10/24/19 03/21/20 History insulin aspart U-100 [Novolog See Rx Instructions .ROUTE .COMPLEX 10/29/19 03/21/20 History Flexpen U-100 Insulin] OneTouch Delica Plus Lancet 33 #180 ea NS 11/02/19 02/15/20 Rx gauge OneTouch Verio test strips #150 ea NS 11/05/19 02/15/20 Rx Trulicity 0.75 mg/0.5 mL 0.75 mg SQ WEEKLY #4 pen NS 12/11/19 03/21/20 Rx subcutaneous pen injector Lantus Solostar U-100 Insulin 40 unit SUBCUT BID #0 ml 02/11/20 03/21/20 Rx oxycodone-acetaminophen 10 mg-325 1 tab PO Q6H PRN #20 tab 02/11/20 Rx mg tablet clindamycin HCl 150 mg capsule 150 mg PO BID cap 03/21/20 03/21/20 History Past Med/Surg History Medical History Anxiety Brain cyst Chronic low back pain with left-sided sciatica Chronic obstructive pulmonary disease Depression Emphysema of lung Hx of blood clots Hypertension (Chronic) Insulin dependent diabetes mellitus (Chronic) Obesity Pulmonary embolism Uncontrolled type 2 diabetes mellitus (Chronic) Surgical History History of laparoscopic cholecystectomy Hx of oral surgery (02/15/20) Acute right submandibular, submental space infection with floor of mouth infection caused by infected lower teeth. Dr. Rios 02/15/20 S/P laparoscopic hernia repair Social History Preferred Language: Faroese Communication Ability: Effective Visual Impairment: No Limitations Nitrating Acid Mixer Required: No Beliefs That Will Affect Care: None marital status: Current Living Situation: Alone Current Living Situation Comment: lives with 13 year old daughter current occupational status: unemployed Other Information That Helps Us Care for You: No Feels Safe at Home: Yes Safety Concerns: Feels Safe At This Time Smoking Status: Current every day smoker Tobacco Type: cigarettes ; Cigarettes Per Day: 5 ; Second Hand Exposure: Yes ; Hx Alcohol Use: No Hx Substance Use: No Review of Systems Review of Systems: All systems reviewed & are unremarkable except as noted in HPI & below Physical Exam Constitutional: well developed and + morbidly obese; + not well nourished and no acute distress Eyes: + anicteric sclerae; normal pupil size ENMT: Left lower jaw pain on palpation with erythema and swelling under jaw on left side. Deferred oropharyngeal inspection to limit oral secretions exposure Respiratory: normal respiratory effort, lungs clear to auscultation Cardiovascular: RRR, no murmur, no edema Gastrointestinal (Abdomen): Inspection/Auscultation: normal bowel sounds Percussion/Palpation: abdomen soft; abdomen nontender, no guarding and abdomen not rigid Musculoskeletal: no cyanosis or clubbing, extremities motor strength 5/5 Skin: no rashes, warm and dry mild dark erythema in left groin (prior abscess site), no drainable collection of fluctuence. No abscess/cyst felt under right armpit, no overlying skin changes here also. Nely cruris noted under abdominal pannus Neurologic: moves all extremities and awake; no focal motor deficits and not confused Psychiatric: A+Ox3, euthymic affect Lymphatic: no cervical or axillary lymphadenopathy Results & Data Results & Data ([facility]) Vital Signs (Past 12 Hours) Vital Signs Temp Pulse Resp BP Pulse Ox 03/21/20 13:00 115/69 94 03/21/20 12:30 101/54 L 95 03/21/20 12:00 132/95 96 03/21/20 11:31 92 H 17 138/97 97 03/21/20 11:27 93 H 20 136/91 97 03/21/20 10:11 37 C 100 H 22 183/137 H 98 Code Status & VTE Plan Code Status Full VTE Prophylaxis Plan VTE Prophylaxis will be ordered: Yes PG Care Time/CCT Total # of Minutes Spent Total Time Spent with Patient: Total time spent is greater than 50% in coordination of care (as documented) at patient's floor/unit and/or counseling patient: Coding Level of Care Code 23838 OBS Care - Level 2 Diagnoses Dental abscess K04.7 Failure of outpatient treatment Z78.9 Opioid abuse F11.10 Diabetes E11.9 Diabetes mellitus complication status: without complication Diabetes mellitus intermediate project manager insulin use: without intermediate project manager use Diabetes mellitus type: type 2 Skin abscess L02.91 Liver cirrhosis K74.60 Hepatic cirrhosis type: unspecified hepatic cirrhosis Tinea cruris B35.6 DVT prophylaxis Z29.9 (1) Diabetes Diabetes mellitus complication status: without complication Diabetes mellitus intermediate project manager insulin use: without intermediate project manager use Diabetes mellitus type: type 2 Qualified Code(s): E11.9 - Type 2 diabetes mellitus without complications (2) Liver cirrhosis Hepatic cirrhosis type: unspecified hepatic cirrhosis
[2020-03-21] MEDS ORDERED: DICLOFENAC SOD 1% GEL 100 GM TUBE EXT PRN (15:25)
[2020-03-21] MEDS ORDERED: ALUMINUM/MAGNESIUM SUSP 30 ML UDC PO PRN (15:25)
[2020-03-21] MEDS ORDERED: PROMETHAZINE HCL 25 MG TAB PO PRN (15:25)
[2020-03-21] MEDS ORDERED: RIZATRIPTAN BENZOATE 10 MG TAB PO PRN (15:25)
[2020-03-21] MEDS ORDERED: ONDANSETRON INJ 2 MG/ML 2 ML VIAL IV PRN (15:25)
[2020-03-21] MEDS ORDERED: POLYETHYLENE (MIRALAX) 17 GM PACK PO PRN (15:25)
[2020-03-21] MEDS ORDERED: MAGNESIUM HYDROXIDE SUSP 30 ML UDC PO PRN (15:25)
[2020-03-21] MEDS: KETOROLAC 30 MG/ML VIAL IV PRN (15:28)
[2020-03-21] MEDS ORDERED: CYCLOBENZAPRINE HCL 10 MG TAB PO PRN (15:30)
[2020-03-21] MEDS ORDERED: PHARMACY GLYCEMIC MGMT CONSULT PRN (15:33)
[2020-03-21] MEDS ORDERED: POTASSIUM CHLORIDE 20 MEQ TABCR PO ONE ×2 (16:00→18:45)
[2020-03-21] MEDS ORDERED: INSULIN HUMAN REGULAR PER UNIT 10 UNITS in SYRINGE 9.9 ML IV ONE (16:15)
[2020-03-21] MEDS ORDERED: INSULIN GLARGINE SOLOSTAR 100 UNITS/ML 3 ML PEN SC ONE ×2 (16:15→19:00)
[2020-03-21] MEDS: AMPICILLIN/SULBACTAM SOD 3,000 MG in 0.9 % SODIUM CHLORIDE 100 ML IV SCH ×2 (17:02→23:59)
[2020-03-21] MEDS: INSULIN ASPART 100 UNITS/ML 3 ML PEN SC SCH ×2 (17:42→21:17)
[2020-03-21] MEDS: OXYCODONE HCL IR 5 MG TAB (IMMEDIATE RELEASE) PO PRN ×2 (17:48→22:02)
[2020-03-21] MEDS ORDERED: GLUCOSE 10 TABS/TUBE PO PRN (19:00)
[2020-03-21] MEDS ORDERED: GLUCOSE 40% GEL 15 GM TUBE PO PRN (19:00)
[2020-03-21] MEDS ORDERED: INSULIN HUMAN REGULAR PER UNIT 5 UNITS in SYRINGE 4.95 ML IV ONE (19:00)
[2020-03-21] MEDS ORDERED: CARBOHYDRATES FOR HYPOGLYCEMIA PO PRN (19:00)
[2020-03-21] MEDS ORDERED: GLUCAGON FOR INJ 1 MG VIAL IM PRN (19:00)
[2020-03-21] MEDS ORDERED: DEXTROSE 50% 50 ML SYRINGE IV PRN (19:00)
[2020-03-21] MEDS: GABAPENTIN 600 MG TAB PO SCH ×2 (19:10→22:02)
[2020-03-21] MEDS: HYDROmorphone INJ 0.5 MG/0.5 ML SYR IV PRN (19:30)
--- NOTE | 2020-03-21 20:14 | Surgery Consultation ---
Date of Consultation March 21, 2020 Present Complaint: I have pain/swelling/drainage from my infected teeth. Symptoms have been ongoing for a while they would come and go. My BS is very high my PCP wants me in hospital with IV antibiotics since he can not control my infection with oral antibiotics. A detailed oral exam was completed. Finding-- infected and fractured teeth, tender gingival tissue with deep pocket formation.Teeth are in an abnormal position and removal is clinical indicated. Panorex: I was able to get a Panorex from her dentist Her teeth are in VERY POOR shape with severe periodontal dx , most teeth fractured and decayed. Acute periodontal dx with gingivitis and overgrowth of the tissue. The following teeth are planned to be removed--# all remaining teeth Soft tissue of the floor of the mouth, tongue, hard/soft palate, posterior pharyngeal area all with in normal limits, no pathology or abnormal findings noted. Cancer exam--No lesions noted that require follow up or Bx. Oral Care---Overall oral care is very poor Occlusion---Class I with missing and fx teeth TMJ exam: No pop, clicking, pain, good ROM, No history of TMJ injury or dysfunction Periodontal exam---POOR Neck is supple, FROM, Able to extend and flex neck w/o difficulty, no masses, no abnormalities, no airway issues, no evidence of sleep apnea. Plan: Due to the multi acute facial infections, chronic infection with fistula formation and current pain and gross dental subperiosteal abscess removal of the teeth is medically necessary at this time. I reviewed the panorex and I will plan on removing ALL the teeth that are infected, fractured and grossly decayed and removal of infected bone and drain any infection and remove all infected gingival tissue. Due to chronic dental infections her blood sugars are out of control due to pain, infection, limited diet due to pain. Teeth removal is medically needed and urgent due to infection and need to cont rol with IV antibiotics, failed out patient care requiring in patient management. I will plan surgery tomorrow with anesthesia Consent signed- Set up with general anesthesia in hospital on this admission due to complexity of the procedure and underlying medical conditions PCP wants her hospitalized due to uncontrolled DM and hypertension, she has failed out patient antibiotics and her BS is OUT OF CONTROL Acute infection and pain lower left side with drainage noted Risks reviewed (see below) Head/Neck Physical exam completed I reviewed the treatment plan and consent with the patient I and D and extraction of all infected/fractured teeth Understanding was expressed. Time was given for questions regarding the surgery, risks and post op care. Set up with general anesthesia in hospital on this admission due to complexity of the procedure and underlying medical conditions PCP wants her hospitalized due to uncontrolled DM and hypertension, she has failed out patient antibiotics and her BS is OUT OF CONTROL Acute infection and pain lower left side with drainage noted Risks reviewed (see below) Head/Neck Physical exam completed The procedure will be set up once medical clearance is given and DM management is stabilized. Review of informed consent with patient Reason for surgery to remove of fractured decayed teeth: The teeth are severely fractured and decayed and in an abnormal position, removal is indicated and medically necessary. The following teeth are decayed and fractured and removal is indicated [place]: Risks discussed: Pain,swelling,infection, dry socket, delayed healing, nerve injury to face,lips,tongue,chin area which could be permanent (rare). TMJ, jaw stiffness, change in bite (rare), ear pain (referred). Sinus problems like fistula or infection. Need to leave a small root fragment in place to avoid injury to nerve or sinus. Home care reviewed--tooth brushing, rinsing, follow up care with Dr Rios. diet=[id number] dental. Discussed activity level, driving/work while on Rx pain Meds. Plan: For the GA and surgery at Hospital History of Present Illness Attending Physician: Gerard Park MD Allergies Allergy/AdvReac Type Severity Reaction Status Date / Time cephalexin AdvReac Severe Vomiting Verified 03/21/20 12:05 levofloxacin [From Levaquin] AdvReac Vomiting Verified 03/21/20 12:05 Home Medications Home Medications Medication Instructions Recorded Confirmed Type cyclobenzaprine 10 mg PO BID PRN #0 11/18/17 03/21/20 History gabapentin 1,200 mg PO TID #0 tab 11/18/17 03/21/20 History albuterol sulfate [Ventolin HFA] 2 puff INHALATION Q4H PRN #0 02/10/18 03/21/20 History diclofenac sodium [Voltaren] 4 g TOPICAL QID PRN 01/05/19 03/21/20 History rizatriptan 5 mg PO DIRECTED PRN 06/16/19 03/21/20 History ibuprofen 800 mg PO TID PRN 10/24/19 03/21/20 History promethazine 25 mg PO Q6H PRN 10/24/19 03/21/20 History insulin aspart U-100 [Novolog See Rx Instructions .ROUTE .COMPLEX 10/29/19 03/21/20 History Flexpen U-100 Insulin] OneTouch Delica Plus Lancet 33 #180 ea NS 11/02/19 02/15/20 Rx gauge OneTouch Verio test strips #150 ea NS 11/05/19 02/15/20 Rx Trulicity 0.75 mg/0.5 mL 0.75 mg SQ WEEKLY #4 pen NS 12/11/19 03/21/20 Rx subcutaneous pen injector Lantus Solostar U-100 Insulin 40 unit SUBCUT BID #0 ml 02/11/20 03/21/20 Rx oxycodone-acetaminophen 10 mg-325 1 tab PO Q6H PRN #20 tab 02/11/20 Rx mg tablet clindamycin HCl 150 mg capsule 150 mg PO BID cap 03/21/20 03/21/20 History Patient History Medical History Anxiety Brain cyst Chronic low back pain with left-sided sciatica Chronic obstructive pulmonary disease Depression Emphysema of lung Hx of blood clots Hypertension (Chronic) Insulin dependent diabetes mellitus (Chronic) Obesity Pulmonary embolism Uncontrolled type 2 diabetes mellitus (Chronic) Surgical History History of laparoscopic cholecystectomy Hx of oral surgery (02/15/20) Acute right submandibular, submental space infection with floor of mouth infection caused by infected lower teeth. Dr. Rios 02/15/20 S/P laparoscopic hernia repair Social History Preferred Language: [place] Communication Ability: Effective Visual Impairment: No Limitations Flight Operations Coordinator Required: No Beliefs That Will Affect Care: None marital status: Current Living Situation: Alone Current Living Situation Comment: lives with 13 year old daughter current occupational status: unemployed Other Information That Helps Us Care for You: No Feels Safe at Home: Yes Safety Concerns: Feels Safe At This Time Smoking Status: Current every day smoker Tobacco Type: cigarettes ; Cigarettes Per Day: 5 ; Second Hand Exposure: Yes ; Hx Alcohol Use: No Hx Substance Use: No Results & Data Vital Signs (Past 12 Hours) Vital Signs Temp Pulse Resp BP Pulse Ox 03/21/20 14:37 77 18 114/74 97 03/21/20 13:00 115/69 94 03/21/20 12:30 101/54 L 95 03/21/20 12:00 132/95 96 03/21/20 11:31 92 H 17 138/97 97 03/21/20 11:27 93 H 20 136/91 97 03/21/20 10:11 37 C 100 H 22 183/137 H 98 PG Care Time/CCT Total # of Minutes Spent Total Time Spent with Patient: Total time spent is greater than 50% in coordination of care (as documented) at patient's floor/unit and/or counseling patient: Coding Level of Care Code 27888 Inpt Consult Level 1
[2020-03-21] MEDS: SODIUM CHLORIDE 0.9% 1000ML 1,000 ML IV SCH (22:34)
[2020-03-22] MEDS: HYDROmorphone INJ 0.5 MG/0.5 ML SYR IV PRN ×6 (00:11→20:56)
[2020-03-22] MEDS: INSULIN ASPART 100 UNITS/ML 3 ML PEN SC SCH ×6 (00:33→20:46)
[2020-03-22] MEDS ORDERED: INSULIN HUMAN REGULAR PER UNIT 7 UNITS in SYRINGE 6.93 ML IV ONE (04:45)
[2020-03-22 05:55] LABS: Basophils # (auto) 0.01 K/uL (0-0.2); Basophils % (auto) 0.2 %; Eosinophils # (auto) 0.29 K/uL (0-0.5); Eosinophils % (auto) 4.7 %; Hematocrit (blood only) 40.5 % (37-47); Hemoglobin 13.2 g/dL (12.0-16.0); Lymphocytes # (auto) 2.64 K/uL (1.2-3.4); Lymphocytes % (auto) 42.9 %; Mean Corpuscular Hemoglobin 30.5 pg (25-34); Mean Corpuscular Hgb Conc 32.6 g/dL (32-36); Mean Corpuscular Volume 93.5 fL (80-100); Mean Platelet Volume 11.7 fL (7.4-10.4); Monocytes # (auto) 0.27 K/uL (0.11-0.59); Monocytes % (auto) 4.4 %; Neutrophils # (auto) 2.94 K/uL (1.4-6.5); Neutrophils % (auto) 47.8 %; Platelet Count 149 K/uL (130-400); RDW Coefficient of Variation 14.4 % (11.5-14.5); RDW Standard Deviation 49.1 fL (36.4-46.3); Red Blood Count 4.33 M/uL (4.2-5.4); White Blood Count 6.15 K/uL (4.8-10.8)
[2020-03-22] MEDS: AMPICILLIN/SULBACTAM SOD 3,000 MG in 0.9 % SODIUM CHLORIDE 100 ML IV SCH ×4 (06:09→23:35)
[2020-03-22] MEDS: SODIUM CHLORIDE 0.9% 1000ML 1,000 ML IV SCH ×2 (06:14→19:49)
[2020-03-22 06:30] LABS: BUN Creatinine Ratio 9.3 (10-20); Calcium 8.5 mg/dl (8.5-10.1); Creatinine Clr Calc Pharmacy 148.8 ml/min; Est GFR (Non-African American) 106.1; Potassium 3.7 mmol/L (3.5-5.1)
[2020-03-22] MEDS: GABAPENTIN 600 MG TAB PO SCH ×3 (08:19→20:49)
[2020-03-22] MEDS: OXYCODONE HCL IR 5 MG TAB (IMMEDIATE RELEASE) PO PRN ×3 (09:02→23:42)
--- NOTE | 2020-03-22 14:54 | Pharmacy Report ---
Glycemic Control Consultation - Date of Service March 22, 2020 - Scope Scope: Glycemic Pharmacist consulted for glycemic control and to write orders per [facility] inpatient glycemic control protocol. - Objective Weight: 113 kg Accuchecks BSG (last 24hrs): 03/21/20 03/21/20 03/21/20 15:46 15:49 17:35 Glucose POC Glucose 446 H* 460 H* 463 H* 03/21/20 03/21/20 03/22/20 18:31 20:51 00:04 Glucose POC Glucose 401 H* 191 H 343 H* 03/22/20 03/22/20 03/22/20 00:09 00:21 04:01 Glucose POC Glucose 367 H* 333 H* 314 H* 03/22/20 03/22/20 03/22/20 04:04 05:25 05:59 Glucose 238 H POC Glucose 310 H* 158 H 03/22/20 03/22/20 10:07 12:13 Glucose POC Glucose 107 H 130 H Laboratory Data (last 24hrs): 03/22/20 05:25 Potassium 3.7 Carbon Dioxide 24 Anion Gap 6.0 Creatinine 0.59 L Est Cr Clr Drug Dosing 148.8 - Recent Pertinent Medications Outpatient Anti-diabetic Regimen: * Lantus 40 units BID, Novolog ssi, trulicity * A1c = 8.4 % 02/09/20 Risk Factors for Insulin Resistance: * Infection: dental abscess * Diet: t2dm - Assessment & Plan Assessment & Plan: ASSESSMENT: * 49 year old presenting with facial pain/dental abscess. Known to glycemic from prior admissions. Most recently 02/07 admission. * BSGs elevated on arrival - managed with SQ/IV insulin yesterday. Received total of 80 units of basal insulin, 60 units of bolus insulin * BSGs this AM 310 - given another 7 units IV and BSGs trending down to 158 mg/dL * NPO initially this AM, but then changed to diet at lunch. Appears to be NPO at midnight for possible procedure tomorrow * Per interview with patient she admits to not taking her insulin in days because of "low" BSGs - may need to further investigate * Will utilize similar Lantus/novolog as prior admission as BSGs well controlled then - hold basal this AM / reduce dose of basal for HS PLAN FOR INPATIENT GLYCEMIC CONTROL: * Basal insulin * Lantus - hold 03/22 AM as NPO * Lantus 30-40 units HS based upon scale * Bolus insulin * NovoLog per scale ACHS or Q6hrs while NPO * Goal Range: Low 110 mg/dL - High 140 mg/dL * Correction Factor: 15 mg/dL/unit * Nutritional / Prandial insulin per carb ratio of 1 unit per 5 grams CHO consumed * Please note that the plan above was derived based on current level of insulin resistance and hospital stress. These recommendations are appropriate for inpatient admission only. Plan of care upon discharge will need to be reassessed to avoid potential outpatient hypo/hyperglycemia. Thank you.
[2020-03-22] MEDS ORDERED: ALBUT/IPRATROP 3MG/0.5MG NEB 3 ML VIAL NEB PRN (16:27)
--- NOTE | 2020-03-22 16:27 | Hospitalist Progress Note ---
Date of Service March 22, 2020 Assessment & Plan (1) Dental abscess: Continue IV Unasyn 3g Q6H Minced and moist food Consult ENT surgery (Dr Rios) - for surgery to remove remaining teeth tomorrow morning NPO after midnight Ms. Vick is unable to state her usual activity tolerance as she does not walk much or leave her house very often. She has a history of COPD which does not appear to be in exacerbation. She has no cardiac history, is not experiencing any chest pain or sob. Blood sugars were very high overnight but have been under better control today. A1c in february was 8.4 indicating slightly subpar blood sugar control generally. Electrolytes are wnl. RCRI is 6%. Patient is optimized for surgery (2) Failure of outpatient treatment: On clindamycin and Augmentin outpatient for > 48 hours without improvement (3) Opioid abuse: Noted history of this but did well after last tooth abscess coming off opioid medication, Preferentially use Toradol to other pain meds. (4) Diabetes: Hyperglycemia on admission - blood sugars running 3-400s overnight but under better control today HbA1C actually improved to 8.4 in February. Since this is recent, no plans on repeating. Pharmacist consulted for glycemic control (5) Skin abscess: This appears to be resolved at the current time, no need to continue on clindamycin. Most likely would be covered by Unasyn anyway. Groin and under right armpit (6) Liver cirrhosis: Noted prior appearance of this on CT Follow up outpatient Suspect PINON although never had biopsy as per patient (7) Chronic obstructive pulmonary disease: No exacerbation, will add prn nebs and patient requested her home Breo Ellipta (8) Tinea cruris: Nystatin powder under skin folds (9) DVT prophylaxis: SCDs, hold chemoprophylaxis for surgery tomorrow Admission and Anticipated Discharge Date Admission Date: March 21, 2020 Subjective Ms. Vick is much more comfortable now than when she came in. ROS Constitutional: no chills, aches, sweats or fever Respiratory: no sob,cough, sputum, or wheezing Cardiac: no chest pain, palpitations, edema, orthopnea or lightheadedness GI: no abdominal pain, nausea, vomiting, diarrhea or constipation : no dysuria or hesitancy Extremities: no joint pain or weakness Skin: no rash All other systems reviewed and negative Physical Exam Physical Exam: General: no distress Eyes: normal inspection, PERLL Respiratory: chest non tender, clear to auscultation, normal breath sounds, no respiratory distress, no accessory muscle use Cardiac: regular rate and rhythm, no rub or gallop, no murmur, no edema, no jvd GI/: active bowel sounds, no abd pain or tenderness, soft, non distended Extremities: normal range of motion, normal strength, non tender Neuro/Psych: alert and oriented x 3, normal mood and affect Skin: normal color, dry Results & Data Results & Data ([facility]) Vital Signs (Past 12 Hours) Vital Signs Temp Pulse Pulse Resp BP Pulse Ox 03/22/20 15:14 36.4 C L 69 16 126/79 97 03/22/20 13:40 36.6 C 98 H 16 137/92 96 03/22/20 07:01 36.6 C 73 16 116/74 97 PG Care Time/CCT Total # of Minutes Spent Total Time Spent with Patient: Total time spent is greater than 50% in coordination of care (as documented) at patient's floor/unit and/or counseling patient: Coding Level of Care Code 96034 Subs Hosp Care Lvl 3 Diagnoses Dental abscess K04.7 Failure of outpatient treatment Z78.9 Opioid abuse F11.10 Diabetes E11.9 Diabetes mellitus complication status: without complication Diabetes mellitus usp insulin use: without longwall headgate operator use Diabetes mellitus type: type 2 Skin abscess L02.91 Liver cirrhosis K74.60 Hepatic cirrhosis type: unspecified hepatic cirrhosis Chronic obstructive pulmonary disease J44.9 Tinea cruris B35.6 DVT prophylaxis Z29.9 (1) Diabetes Diabetes mellitus complication status: without complication Diabetes mellitus longwall headgate operator insulin use: without longwall headgate operator use Diabetes mellitus type: type 2 Qualified Code(s): E11.9 - Type 2 diabetes mellitus without complications (2) Liver cirrhosis Hepatic cirrhosis type: unspecified hepatic cirrhosis
[2020-03-22] MEDS: NYSTATIN POWDER 15GM BTL EXT SCH (20:54)
[2020-03-22] MEDS ORDERED: INSULIN GLARGINE SOLOSTAR 100 UNITS/ML 3 ML PEN SC ONE (21:00)
[2020-03-23] MEDS: INSULIN ASPART 100 UNITS/ML 3 ML PEN SC SCH ×6 (00:06→21:11)
[2020-03-23] MEDS: HYDROmorphone INJ 0.5 MG/0.5 ML SYR IV PRN ×7 (01:12→23:56)
[2020-03-23 04:39] LABS: Basophils # (auto) 0.03 K/uL (0-0.2); Basophils % (auto) 0.4 %; Eosinophils # (auto) 0.35 K/uL (0-0.5); Eosinophils % (auto) 4.9 %; Hematocrit (blood only) 38.1 % (37-47); Hemoglobin 12.4 g/dL (12.0-16.0); Immature Granulocytes # (auto) 0.01 K/uL (0.00-0.02); Immature Granulocytes % (auto) 0.1 %; Lymphocytes # (auto) 3.11 K/uL (1.2-3.4); Lymphocytes % (auto) 43.2 %; Mean Corpuscular Hemoglobin 30.4 pg (25-34); Mean Corpuscular Hgb Conc 32.5 g/dL (32-36); Mean Corpuscular Volume 93.4 fL (80-100); Mean Platelet Volume 11.4 fL (7.4-10.4); Monocytes # (auto) 0.51 K/uL (0.11-0.59); Monocytes % (auto) 7.1 %; Neutrophils # (auto) 3.19 K/uL (1.4-6.5); Neutrophils % (auto) 44.3 %; Platelet Count 145 K/uL (130-400); RDW Coefficient of Variation 14.3 % (11.5-14.5); RDW Standard Deviation 48.7 fL (36.4-46.3); Red Blood Count 4.08 M/uL (4.2-5.4)
[2020-03-23 05:00] LABS: Albumin Level 2.8 gm/dl (3.4-5.0); BUN Creatinine Ratio 6.3 (10-20); Calcium 8.4 mg/dl (8.5-10.1); Creatinine Clr Calc Pharmacy 121.9 ml/min; Est GFR (African American) 112.4; Potassium 3.9 mmol/L (3.5-5.1)
[2020-03-23 05:03] LABS: Albumin Globulin Ratio 0.8 (0.9-2); Bilirubin,Total 0.4 mg/dl (0.2-1); Globulin 3.5 gm/dl (2.5-4.0); Total Protein 6.3 gm/dl (6.4-8.2)
[2020-03-23] MEDS: SODIUM CHLORIDE 0.9% 1000ML 1,000 ML IV SCH ×3 (05:39→22:46)
[2020-03-23] MEDS: AMPICILLIN/SULBACTAM SOD 3,000 MG in 0.9 % SODIUM CHLORIDE 100 ML IV SCH ×4 (05:39→23:54)
[2020-03-23] MEDS: OXYCODONE HCL IR 5 MG TAB (IMMEDIATE RELEASE) PO PRN ×2 (07:47→19:16)
[2020-03-23] MEDS: KETOROLAC 30 MG/ML VIAL IV PRN ×2 (07:47→15:59)
[2020-03-23] MEDS: GABAPENTIN 600 MG TAB PO SCH ×3 (07:48→21:19)
[2020-03-23] MEDS: FLUTICASONE/VILANTEROL 200/25MCG 14 PUFFS/INHALER INH SCH (08:05)
[2020-03-23] MEDS: NYSTATIN POWDER 15GM BTL EXT SCH ×2 (08:52→21:18)
[2020-03-23] MEDS ORDERED: ONDANSETRON INJ 2 MG/ML 2 ML VIAL ONE ×2 (08:55→11:19)
[2020-03-23] MEDS ORDERED: DEXAMETHASONE SOD INJ 4 MG/ML VIAL ONE (08:55)
[2020-03-23] MEDS ORDERED: PROPOFOL IV EMULSION 10 MG/ML 20 ML VIAL IV ONE (08:55)
[2020-03-23] MEDS ORDERED: LIDOCAINE HCL 2% 2 ML VIAL/AMP(20MG/ML) INFIL ONE (08:55)
[2020-03-23] MEDS ORDERED: fentaNYL citrate 100 MCG/2 ML VIAL ONE ×3 (08:55→08:59)
[2020-03-23] MEDS ORDERED: MIDAZOLAM HCL 1 MG/ML 2ML VIAL ONE (08:55)
[2020-03-23] MEDS ORDERED: INSULIN GLARGINE SOLOSTAR 100 UNITS/ML 3 ML PEN SC ONE (09:00)
[2020-03-23 09:09] LABS: Pregnancy Test, Urine Negative (Negative)
--- NOTE | 2020-03-23 09:10 | Anesthesiology Consultation ---
Date of Service March 23, 2020 Assessment & Plan Chart Review Chart Review: Acceptable Risk for Surgery and Patient NOT seen in Pre Admission Testing Consults Requested none ASA ASA4 Proposed Anesthesia Anesthesia Type: General History Surgery Operation Date: 03/23/20 09:00 Proposed Procedures p Excision Oral Cavity - Vahe Rios, DMD Height/Weight Height: 5 ft 8 in Weight: 113 kg Allergies Allergy/AdvReac Type Severity Reaction Status Date / Time cephalexin AdvReac Severe Vomiting Verified 03/21/20 12:05 levofloxacin [From Levaquin] AdvReac Vomiting Verified 03/21/20 12:05 Medications Home Medications Medication Instructions Recorded Confirmed Last Taken cyclobenzaprine 10 mg PO BID PRN #0 11/18/17 03/21/20 07/05/19 09:00 10 mg gabapentin 1,200 mg PO TID #0 tab 11/18/17 03/21/20 03/21/20 albuterol sulfate [Ventolin HFA] 2 puff INHALATION Q4H PRN #0 02/10/18 03/21/20 10/24/19 diclofenac sodium [Voltaren] 4 g TOPICAL QID PRN 01/05/19 03/21/20 07/04/19 rizatriptan 5 mg PO DIRECTED PRN 06/16/19 03/21/20 10/22/19 2 tablets ibuprofen 800 mg PO TID PRN 10/24/19 03/21/20 02/08/20 05:00 promethazine 25 mg PO Q6H PRN 10/24/19 03/21/20 02/07/20 insulin aspart U-100 [Novolog See Rx Instructions .ROUTE .COMPLEX 10/29/1903/21 Unknown Flexpen U-100 Insulin] OneTouch Delica Plus Lancet 33 #180 ea NS 11/02/19 02/15/20 Unknown gauge OneTouch Verio test strips #150 ea NS 11/05/19 02/15/20 Unknown Trulicity 0.75 mg/0.5 mL 0.75 mg SQ WEEKLY #4 pen NS 12/11/19 03/21/20 02/05/20 subcutaneous pen injector Lantus Solostar U-100 Insulin 40 unit SUBCUT BID #0 ml 02/11/20 03/21/20 02/07/20 oxycodone-acetaminophen 10 mg-325 1 tab PO Q6H PRN #20 tab 02/11/20 Unknown mg tablet clindamycin HCl 150 mg capsule 150 mg PO BID cap 03/21/20 03/21/20 03/21/20 Active Medications Generic Name Dose Route Start Last Admin Trade Name Freq PRN Reason Stop Dose Admin Fluticasone/Vilanterol 1 puffs 03/23/20 09:00 03/23/20 08:05 Breo Ellipta 200/25 Mcg Inh INH 04/22/20 08:59 1 puffs DAILY YEN Administration Gabapentin 1,200 mg 03/21/20 16:00 03/23/20 07:48 Neurontin PO 04/20/20 15:59 1,200 mg TID YEN Administration Hydromorphone HCl 0.5 mg 03/21/20 13:49 03/23/20 06:05 Dilaudid IV 04/04/20 13:48 0.5 mg Q2H PRN Administration Severe Pain Ampicillin Sodium/Sulbactam 108 mls @ 200 mls/hr 03/21/20 18:00 03/23/20 06:39 Sodium 3,000 mg/ Sodium IV 03/31/20 17:59 Infused Chloride Q6H YEN Infusion Protocol Sodium Chloride 1,000 mls @ 100 mls/hr 03/21/20 21:45 03/23/20 05:39 Nss 1000ml IV 04/20/20 21:44 100 mls/hr .Q10H YEN Administration Insulin Aspart 0 units 03/23/20 00:00 03/23/20 06:00 Novolog Flexpen SC 04/22/20 00:00 8 units Q6 YEN Administration Protocol Ketorolac Tromethamine 30 mg 03/21/20 13:49 03/23/20 07:47 Toradol IV 03/26/20 13:48 30 mg Q6H PRN Administration Pain Nystatin 1 appln 03/22/20 21:00 03/23/20 08:52 Mycostatin EXT 04/21/20 20:59 Not Given BID YEN Oxycodone HCl 5 mg 03/21/20 13:49 03/23/20 07:47 Roxicodone Immediate Rel PO 04/04/20 13:48 5 mg Q4H PRN Administration Pain NPO Date Last Intake of Fluids: 03/23/20 Time Last Intake of Fluids: 00:00 Date Last Intake of Solids: 03/21/20 Time Last Intake of Solids: 17:30 Past Medical History Medical History Anxiety Brain cyst Chronic low back pain with left-sided sciatica Chronic obstructive pulmonary disease Depression Emphysema of lung Hx of blood clots Hypertension (Chronic) Insulin dependent diabetes mellitus (Chronic) Obesity Pulmonary embolism Uncontrolled type 2 diabetes mellitus (Chronic) Exercise / Class Metabolic Activity III < 4 Walking/Shop/Light housework Past Family History Family History Mother , 73 Heart disease Cancer Father Skin cancer Brother No problems noted. Sister No problems noted. Grandmother (Maternal) , 48 Heart disease T2DM (type 2 diabetes mellitus) Grandmother (Paternal) , 83 Heart disease Kidney disease Uncle T2DM (type 2 diabetes mellitus) Other Diabetes Obesity Past Surgical History Surgical History History of laparoscopic cholecystectomy Hx of oral surgery (02/15/20) Acute right submandibular, submental space infection with floor of mouth infection caused by infected lower teeth. Dr. Rios 02/15/20 S/P laparoscopic hernia repair Past Anesthesia History No Hx of Anesthesia Complications and No Family Hx of Anesthesia Complications History of PONV No Hx of PONV and No Hx of Motion Sickness Social History Smoking Status: Current every day smoker tobacco type: cigarettes Smoking cigarettes per day: 5 Hx Alcohol Use: No Alcohol type: wine alcohol intake frequency: holidays/special occasions only Hx Substance Use: No substance use type: does not use Physical Exam Vital Signs Last Vital Signs Temp 36.6 C 03/23/20 08:24 Pulse 67 03/23/20 08:24 Resp 18 03/23/20 08:24 BP 132/73 03/23/20 08:24 Pulse Ox 97 03/23/20 08:24 Testing Laboratory Results 03/23/20 04:19 03/23/20 04:19 PT 11.3 Seconds (9.0-12.0) 03/21/20 11:45 INR 1.1 (0.9-1.1) 03/21/20 11:45 APTT 26.8 Seconds (21.0-31.0) 03/21/20 11:45 Urine Color Yellow 03/21/20 11:47 Urine Appearance Clear (Clear) 03/21/20 11:47 Urine pH 5.5 (4.5-7.5) 03/21/20 11:47 Ur Specific [place] 1.030 (1.000-1.030) 03/21/20 11:47 Urine Protein Trace (Negative) H 03/21/20 11:47 Urine Glucose (UA) 3+ (Negative) H 03/21/20 11:47 Urine Ketones Negative (Negative) 03/21/20 11:47 Urine Nitrite Negative (Negative) 03/21/20 11:47 Ur Leukocyte Esterase Negative (Negative) 03/21/20 11:47 Urine WBC (Auto) 1-5 /hpf (0-5) 03/21/20 11:47 Urine RBC (Auto) 0-4 /hpf (0-4) 03/21/20 11:47 U Hyaline Cast (Auto) 1-5 /lpf (0-5) 03/21/20 11:47 U Epithel Cells (Auto) 20-30 /lpf (0-5) H 03/21/20 11:47 Urine Bacteria (Auto) Negative (Negative) 03/21/20 11:47 Urine Test Negative (Negative) 03/23/20 09:05 03/21/20 11:34 Aerobic Blood Culture - Preliminary Blood No growth in Aerobic bottle after 24 hours. Anaerobic Blood Culture - Preliminary No growth in Anaerobic bottle after 24 hours. 03/21/20 08:19 Aerobic Blood Culture - Preliminary Blood No growth in Aerobic bottle after 24 hours. Anaerobic Blood Culture - Preliminary No growth in Anaerobic bottle after 24 hours. 03/23/20 03/22/20 05:56 23:48 POC Glucose 254 H 211 H 03/23/20 09:05 Urine Test Negative Electrocardiogram Date: 10/29/19 Findings: + NSR @ (at 65 w/sinus arrhythmia)
[2020-03-23] MEDS ORDERED: STERILE IRRIGATING OPTH SOLUTION (BSS) 15ML ONE (09:38)
[2020-03-23] MEDS ORDERED: BUPIVACAINE/EPINEPHRINE 0.5% 1:200,000 1.8 ML CARP ONE ×2 (09:38→10:32)
[2020-03-23] MEDS ORDERED: CHLORHEXIDINE GLUCONATE 0.12% 480 ML ONE (09:39)
--- NOTE | 2020-03-23 10:00 | History & Physical Bridge Note ---
Date of Service March 23, 2020 History & Physical Bridge Note I have examined the patient, reviewed the History & Physical and in the interval since the performance of the History & Physical I have noted the following changes of clinical significance: no changes noted. COVID Neg Preg test Neg OK for planned procedures this AM
--- NOTE | 2020-03-23 10:20 | Pharmacy Report ---
Pharmacy Glycemic Short Note 2 - Date of Service March 23, 2020 - Glycemic Short BSG Results (Last 24 hours): 03/22/20 03/22/20 03/22/20 12:13 17:01 20:10 Glucose POC Glucose 130 H 221 H 222 H 03/22/20 03/23/20 03/23/20 23:48 04:19 05:56 Glucose 231 H POC Glucose 211 H 254 H ASSESSMENT: * 49 year old presenting with facial pain/dental abscess. Known to glycemic from prior admissions. Most recently 02/07 admission. * BSGs elevated on arrival - managed with SQ/IV insulin yesterday. Received total of 80 units of basal insulin, 60 units of bolus insulin * BSGs this AM 310 - given another 7 units IV and BSGs trending down to 158 mg/dL * NPO initially this AM, but then changed to diet at lunch. Appears to be NPO at midnight for possible procedure tomorrow * Per interview with patient she admits to not taking her insulin in days because of "low" BSGs - may need to further investigate * Will utilize similar Lantus/novolog as prior admission as BSGs well controlled then - hold basal this AM / reduce dose of basal for HS 03/23: * Patient received total of 90 units of insulin yesterday, of which 40 were basal / had decreased basal d/t NPO status yesterday * Continues on NPO this AM for surgery of dental abscess * BSGs this am elevated at 231 mg/dL - will give 30 units of basal insulin this AM, plan to add scale for HS * Previous admission patient required ~50 of basal insulin, will add scale for HS. Patient resuming diet, however no carbs consumed for lunch * Patient also received dex in OR this AM - will add overnight insulin check as BSGs may continue to rise PLAN FOR INPATIENT GLYCEMIC CONTROL: * Basal insulin * Lantus - 30 this AM * Lantus 25-30 units HS based upon scale * Bolus insulin * NovoLog per scale ACHS or Q6hrs while NPO * Goal Range: Low 110 mg/dL - High 140 mg/dL * Correction Factor: 15 mg/dL/unit * Nutritional / Prandial insulin per carb ratio of 1 unit per 4 grams CHO consumed * Please note that the plan above was derived based on current level of insulin resistance and hospital stress. These recommendations are appropriate for inpatient admission only. Plan of care upon discharge will need to be reassessed to avoid potential outpatient hypo/hyperglycemia. Thank you.
[2020-03-23] MEDS ORDERED: NEOSTIGMINE METHYLSULFATE 5 MG/5 ML SYR ONE (11:19)
[2020-03-23] MEDS ORDERED: GLYCOPYRROLATE 0.2 MG/ML VIAL ONE (11:19)
[2020-03-23] MEDS ORDERED: ESMOLOL HCL INJ 10 MG/ML 10ML VIAL IV ONE (11:19)
--- NOTE | 2020-03-23 11:20 | Post Operative Brief Note ---
PG Immediate Post Op with CF Date of Surgery March 23, 2020 Pre & Post Diagnosis Operation Date: 03/23/20 09:00 Pre-Op Diagnosis: TOOTH ABSCESS Post-Op Diagnosis: TOOTH ABSCESS I identified the patient and participated in the time-out.: Yes Procedure Operation Date: 03/23/20 09:00 Actual Procedures p Incision and Drainage, Removal of Teeth #3,5,6,8-12,14,15,18-26/ alveoplasty x 4 (Not Applicable) - Vahe Rios DMD Surgeon Vahe Rios DMD Stock Taker none Estimated Blood Loss 5 Findings Consistent with Post-Op Diagnosis Specimens Specimen Description: NONE PER SURGEON
[2020-03-23] MEDS ORDERED: FLUMAZENIL 0.1 MG/1 ML 10 ML VIAL IV ONE (11:23)
[2020-03-23] MEDS ORDERED: PROMETHAZINE HCL 12.5 MG in SODIUM CHLORIDE 0.9% 50 ML IV PRN (11:37)
[2020-03-23] MEDS ORDERED: fentaNYL citrate 100 MCG/2 ML VIAL IV PRN (11:37)
[2020-03-23] MEDS ORDERED: FLUMAZENIL 0.1 MG/1 ML 10 ML VIAL IV PRN (11:37)
[2020-03-23] MEDS ORDERED: HYDROmorphone INJ 1 MG/ML SYRINGE IV PRN (11:37)
[2020-03-23] MEDS ORDERED: ePHEDrine sulfate 50 MG/ML AMP IV PRN (11:37)
[2020-03-23] MEDS ORDERED: NALOXONE HCL 0.4 MG/1 ML VIAL/CARP IV PRN (11:37)
[2020-03-23] MEDS ORDERED: LABETALOL HCL IV 5 MG/ML 20ML IV PRN (11:37)
[2020-03-23] MEDS ORDERED: ATROPINE SULFATE 0.1 MG/ML 10ML SYR IV PRN (11:37)
[2020-03-23] MEDS ORDERED: ONDANSETRON INJ 2 MG/ML 2 ML VIAL IV PRN (11:37)
--- NOTE | 2020-03-23 11:48 | Operative Report ---
Post Operative Report Pre & Post Diagnosis Operation Date: 03/23/20 09:00 Pre-Op Diagnosis: TOOTH ABSCESS decayed and necrotic teeth effecting blood sugar management Post-Op Diagnosis: TOOTH ABSCESS (same as above) I identified the patient and participated in the time-out.: Yes Procedure Operation Date: 03/23/20 09:00 Actual Procedures p Incision and Drainage, Removal of Teeth #3,5,6,8-12,14,15,18-27 19 infected and decayed teeth (Not Applicable) - Vahe Rios DMD Once cleared for surgery general anesthesia was achieved, the eyes were protected by the anesthesia dept criteria.. A time out was take for patient ID, antibiotics, equipment and position verification once all agreed the procedure began. Local anesthesia was given into each area using Marcaine with a vasoconstrictor ( 1.8 ml per site). A throat pack was placed after the oral cavity was irrigated with saline. Once a surgical level of anesthesia was obtained and the local anesthesia was given time for the blocks the surgery was started. I turned my attention to the upper teeth first. Removal Upper teeth CBI # 3,5,6,7,8,9,10,11,12,14,15 and alveoplasty right and left maxilla. An Incision was made around all the remaining infected teeth and hyperplastic swollen gingival tissue. The full thickness flap was reflected, bone removed with a rongeurs to get to solid tooth structures , the teeth and roots were visualized. The teeth were now removed with a dental forceps. an alveoplasty was preformed with a drill and bur then filled smooth. Bony margins were trimmed, smoothed and sutured closed with a 2-0 chromic. There was no sinus involvement. Removal Lower teeth # 18,19,21,22,23,24,25,26,27 and alveoplasty of right and left mandible An Incision was made around all the remaining infected teeth and hyperplastic swollen gingival tissue. The full thickness flap was reflected, bone removed with a rongeurs to get to solid tooth structures , the teeth and roots were visualized. The teeth were now removed with a dental forceps. an alveoplasty was preformed with a drill and bur then filled smooth. Bony margins were trimmed, smoothed and sutured closed with a 3-0 chromic. The lingual plate was protected, there was no injury to the nerves. When all 19 teeth were removed and 4 quadrant alveoplasty was completed with anatomic closure I inspected the sites to insure all bleeding was controlled. I removed the throat pack and suctioned the throat. Bilateral gauze pressure dressings were placed. All instrument and sponge count was correct. the patient was allowed to awake from the anesthesia. Once full awake the anesthesia tube was removed and the patient was taken to the recovery room with all vital sign stable. The patient tolerated the surgery very well. I will follow the patient in my office, Rx and instructions will be given upon discharge. Surgeon Vahe Rios, DMD Community Development Aide none Estimated Blood Loss 5 Findings Consistent with Post-Op Diagnosis Specimens none Description of Procedure removal or 19 teeth and alveoplasty I attest to the content of the Intraoperative Record and any orders documented therein. Any exceptions are noted below.
--- NOTE | 2020-03-23 12:09 | Anesthesiology Progress Note ---
Date of Service March 23, 2020 Anesthesia Post Procedure Vital Signs Vital Signs: Temp Pulse Pulse Pulse Resp BP Pulse Ox 03/23/20 12:00 36.5 C 63 16 143/74 H 98 03/23/20 11:50 67 18 121/83 97 03/23/20 11:40 72 20 118/68 98 03/23/20 11:32 36.4 C L 89 18 134/84 97 03/23/20 08:24 36.6 C 67 18 132/73 97 03/22/20 23:28 36.7 C 61 18 135/85 97 03/22/20 15:14 36.4 C L 69 16 126/79 97 03/22/20 13:40 36.6 C 98 H 16 137/92 96 Pain Intensity Left Jaw: Pain Intensity: 8 Transfer of Care Handoff Completed per policy Notes Mental Status: alert / awake / arousable Patient Amnestic to Procedure: Yes Nausea / Vomiting: adequately controlled Pain: adequately controlled Airway Patency, RR, SpO2: stable & adequate BP & HR: stable & adequate Hydration State: stable & adequate Anesthetic Complications: no major complications apparent
--- NOTE | 2020-03-23 13:07 | Hospitalist Progress Note ---
Date of Service March 23, 2020 Assessment & Plan (1) Dental abscess: Continue IV Unasyn 3g Q6H Consulted ENT surgery (Dr Rios) - post op 03/23, Dr. Rios recommends having web services manager see patient so consult placed. (2) Failure of outpatient treatment: On clindamycin and Augmentin outpatient for > 48 hours without improvement (3) Opioid abuse: Noted history of this but did well after last tooth abscess coming off opioid medication, Preferentially use Toradol to other pain meds. (4) Diabetes: Hyperglycemia on admission - blood sugars running 3-400s initially but now better controlled HbA1C actually improved to 8.4 in February. Since this is recent, no plans on repeating. Pharmacist consulted for glycemic control (5) Skin abscess: This appears to be resolved at the current time, no need to continue on clindamycin. Most likely would be covered by Unasyn anyway. Groin and under right armpit (6) Liver cirrhosis: Noted prior appearance of this on CT Follow up outpatient Suspect PINON although never had biopsy as per patient (7) Chronic obstructive pulmonary disease: No exacerbation, continue prn nebs and home Breo Ellipta (8) Tinea cruris: Nystatin powder under skin folds (9) DVT prophylaxis: SCDs, chemoprophylaxis held for procedure - if patient does not dc in the morning consider chemoprophylaxis Admission and Anticipated Discharge Date Admission Date: March 21, 2020 Subjective Ms. Vick was painful this morning, anxious to get her surgery done. No other complaints. ROS Constitutional: no chills, aches, sweats or fever Respiratory: no sob,cough, sputum, or wheezing Cardiac: no chest pain, palpitations, edema, orthopnea or lightheadedness GI: no abdominal pain, nausea, vomiting, diarrhea or constipation : no dysuria or hesitancy Extremities: no joint pain or weakness Skin: no rash All other systems reviewed and negative Physical Exam Physical Exam: General: no distress Eyes: normal inspection, PERLL Respiratory: chest non tender, clear to auscultation, normal breath sounds, no respiratory distress, no accessory muscle use Cardiac: regular rate and rhythm, no rub or gallop, no murmur, no edema, no jvd GI/: active bowel sounds, no abd pain or tenderness, soft, non distended Extremities: normal range of motion, normal strength, non tender Neuro/Psych: alert and oriented x 3, normal mood and affect Skin: normal color, dry Results & Data Results & Data ([facility]) Vital Signs (Past 12 Hours) Vital Signs Temp Pulse Pulse Pulse Resp BP Pulse Ox 03/23/20 12:55 36.5 C 69 16 127/67 92 03/23/20 12:40 36.3 C L 72 16 138/82 92 03/23/20 12:23 36.1 C L 61 16 135/85 96 03/23/20 12:10 63 16 140/72 98 03/23/20 12:00 36.5 C 63 16 143/74 H 98 03/23/20 11:50 67 18 121/83 97 03/23/20 11:40 72 20 118/68 98 03/23/20 11:32 36.4 C L 89 18 134/84 97 03/23/20 08:24 36.6 C 67 18 132/73 97 PG Care Time/CCT Total # of Minutes Spent Total Time Spent with Patient: Total time spent is greater than 50% in coordination of care (as documented) at patient's floor/unit and/or counseling patient: Coding Level of Care Code 83813 Subseq Hosp Care Lvl 2 Diagnoses Dental abscess K04.7 Failure of outpatient treatment Z78.9 Opioid abuse F11.10 Diabetes E11.9 Diabetes mellitus type: type 2 Diabetes mellitus senior living insulin use: without director long term care use Diabetes mellitus complication status: without complication Skin abscess L02.91 Liver cirrhosis K74.60 Hepatic cirrhosis type: unspecified hepatic cirrhosis Chronic obstructive pulmonary disease J44.9 Tinea cruris B35.6 DVT prophylaxis Z29.9 (1) Diabetes Diabetes mellitus type: type 2 Diabetes mellitus director long term care insulin use: without director long term care use Diabetes mellitus complication status: without complication Qualified Code(s): E11.9 - Type 2 diabetes mellitus without complications (2) Liver cirrhosis Hepatic cirrhosis type: unspecified hepatic cirrhosis
[2020-03-23] MEDS: INSULIN GLARGINE SOLOSTAR 100 UNITS/ML 3 ML PEN SC SCH (21:14)
[2020-03-24] MEDS ORDERED: INSULIN ASPART 100 UNITS/ML 3 ML PEN SC SCH
[2020-03-24] MEDS: INSULIN ASPART 100 UNITS/ML 3 ML PEN SC SCH ×4 (00:19→12:33)
[2020-03-24] MEDS: OXYCODONE HCL IR 5 MG TAB (IMMEDIATE RELEASE) PO PRN ×4 (01:07→14:04)
[2020-03-24] MEDS: HYDROmorphone INJ 0.5 MG/0.5 ML SYR IV PRN ×6 (02:18→12:37)
[2020-03-24] MEDS: SODIUM CHLORIDE 0.9% 1000ML 1,000 ML IV SCH (05:34)
[2020-03-24] MEDS: AMPICILLIN/SULBACTAM SOD 3,000 MG in 0.9 % SODIUM CHLORIDE 100 ML IV SCH ×2 (05:34→11:33)
[2020-03-24] MEDS: FLUTICASONE/VILANTEROL 200/25MCG 14 PUFFS/INHALER INH SCH (08:26)
[2020-03-24] MEDS: NYSTATIN POWDER 15GM BTL EXT SCH (08:26)
[2020-03-24] MEDS: GABAPENTIN 600 MG TAB PO SCH ×2 (08:27→12:33)
[2020-03-24] MEDS: INSULIN GLARGINE SOLOSTAR 100 UNITS/ML 3 ML PEN SC SCH (08:29)
--- NOTE | 2020-03-24 12:59 | Surgery Progress Note ---
Date of Service Elza is doing very well this AM from recent dental surgery No swelling, infection responded very well surgical site looks great, sutures well placed. no bleeding , mild pain as expected. From OMS point of view OK for D/C once cleared by Hospitalist service. I will Rx Percocet and Augmentin RTC 14-21 days my office for follow up March 24, 2020 Results & Data Vital Signs (Past 12 Hours) Vital Signs Temp Pulse Pulse Resp BP Pulse Ox 03/24/20 07:10 36.3 C L 85 18 138/88 93 03/24/20 03:55 37.0 C 82 16 131/75 94 PG Care Time/CCT Total # of Minutes Spent Total Time Spent with Patient: Total time spent is greater than 50% in coordination of care (as documented) at patient's floor/unit and/or counseling patient: Coding Level of Care Code 09455 Subseq Hosp Care Lvl 1
[2020-03-24] MEDS ORDERED: AMOXICILLIN/CLAVULANATE 875 MG TAB PO SCH (17:00)
--- NOTE | 2020-03-31 07:45 | Discharge Summary ---
Date of Service March 24, 2020 Admission HPI Per Admitting Provider Elza Vick is a 49 year old female well known to me from prior admissions with uncontrolled T2DM and history of opiate use disorder female who presents to the ER today on advice of Dr Rios and her PCP Dr Pérez due to ongoing left lower facial pain. She was admitted at the beginning of February for a similar pain on the right side and subsequently required surgery due to infected lower teeth with submental space and floor of mouth infection. On this occasiona she was prescribed both clindamycin and Augmentin for suspected dental abscess and cellulitis/skin abscess without any improvement with her pain since Tuesday therefore was advised to go to the ER. She denies any diarrhea and has no history of c. diff. 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 She notes she has been having chills but no objective fevers. No fever, shortness of breath, cough, loss of platt or smell. No known COVID-19 exposure. Principal Diagnosis dental abscess Discharge Exam General: no distress Eyes: normal inspection, PERLL Respiratory: chest non tender, clear to auscultation, normal breath sounds, no respiratory distress, no accessory muscle use Cardiac: regular rate and rhythm, no rub or gallop, no murmur, no edema, no jvd GI/: active bowel sounds, no abd pain or tenderness, soft, non distended Extremities: normal range of motion, normal strength, non tender Neuro/Psych: alert and oriented x 3, normal mood and affect Skin: normal color, dry Discharge Data Allergies Allergy/AdvReac Type Severity Reaction Status Date / Time cephalexin AdvReac Severe Vomiting Verified 03/21/20 12:05 levofloxacin [From Levaquin] AdvReac Vomiting Verified 03/21/20 12:05 Consultations 03/21/20 12:52 ED Decision to Admit Stat 03/21/20 15:25 Consult Oromaxillofacial Surgery Routine Procedures Performed Operation Date: 03/23/20 09:00 Actual Procedures p Incision and Drainage, Removal of Teeth #3,5,6,8-12,14,15,18-26(Not Applicable) - Vahe Rios, DMD Hospital Course (1) Dental abscess: Treated with IV Unasyn 3g Q6H Patient improve with decreased swelling. will discharge on augmentin. Consulted ENT surgery (Dr Rios) - post op 03/23 (2) Failure of outpatient treatment: On clindamycin and Augmentin outpatient for > 48 hours without improvement (prior to admission.) (3) Opioid abuse: Noted history of this but did well after last tooth abscess coming off opioid medication, Preferentially use Toradol to other pain meds. (4) Diabetes: Hyperglycemia on admission - blood sugars running 3-400s initially but now better controlled HbA1C actually improved to 8.4 in February. Since this is recent, no plans on repeating. Pharmacist consulted for glycemic control (5) Skin abscess: This appears to be resolved at the current time, no need to continue on clindamycin. Most likely would be covered by Unasyn anyway. Groin and under right armpit (6) Liver cirrhosis: Noted prior appearance of this on CT Follow up outpatient Suspect PINON although never had biopsy as per patient (7) Chronic obstructive pulmonary disease: No exacerbation, continue prn nebs and home Breo Ellipta (8) Tinea cruris: Nystatin powder under skin folds (9) DVT prophylaxis: SCDs, chemoprophylaxis held for procedure Total Time Total Time Spent Total Time Spent (In Minutes): 35 Total Time Includes: Examination of the Patient, Discharge Planning, Medication Reconciliation and Communication With Other Providers Discharge Plan Discharge Items Patient Disposition: Home - Self-Care Reason For Visit: TOOTH ABSCESS Discharge Diagnosis: Facial infection secondary to infected teeth Condition on Discharge: Good Goals: control BS with proper diet good oral care Activity: Resume your previous activity Bathing: No limitations Weightbearing: Full weightbearing Non-emergency contact: Surgeon Call non-emergency contact if: you have any medication questions, your symptoms worsen, you have a fever, your temperature is above 101.5 and your wound has increased drainage Follow-up/Referrals: Aneudy Pérez MD [Primary Care Provider] - Vahe Rios DMD [Physician] - 04/04/20 9:45 am Diet: Full liquid Diet Comment: soft foods as tolerated Addtl Attending Provider Instructions: SPECIAL CARE INSTRUCTIONS: * Keep ice on the side of your face for the next 24 to 36 hours. This will help keep the swelling down. * After 36 hours, apply heat (hot water bottle or heating pad) for the next two days, as often as possible. * Tomorrow start rinsing your mouth with 1/2 teaspoon salt in 8 ounces warm water. This rinse should be used every 4-6 hours. * You may experience slight nausea. To prevent this, never take your medication on an empty stomach. If nauseated, take small sips of mel princess until you feel better; then you may start on applesauce and toast. * Some swelling is common. It should gradually decrease within 4-5 days. * A certain amount of bleeding is to be expected. It is often possible to control mild oozing by placing folded gauze over the area and biting down for 30 minutes. If you are unable to control excessive bleeding, call your doctor at * You may experience some discomfort for a few days. If pain or swelling increases, call your doctor immediately Pending Studies at Discharge: No Stand-Alone Forms: My [facility] [employer], Smoking Cessation Medications and DC Order Prescriptions: Continued cyclobenzaprine 10 mg Tablet 10 mg PO BID PRN (Reason: Muscle Spasm) Qty: 0 RF: 0 gabapentin 600 mg Tablet 1,200 mg PO TID Qty: 0 RF: 0 albuterol sulfate [Ventolin HFA] 90 mcg/actuation Hfa Aerosol Inhaler 2 puff INHALATION Q4H PRN (Reason: Shortness Of Breath Or Wheezing) Qty: 0 RF: 0 (DME) OneTouch Verio test strips Strip See Rx Instructions .ROUTE .MEDSUPPLY Qty: 150 RF: 5 Trulicity 0.75 mg/0.5 mL pen injector 0.75 mg SQ WEEKLY Qty: 4 RF: 5 oxycodone-acetaminophen [Percocet] 5-325 mg tablet 1 tab PO Q4H PRN (Reason: pain) Qty: 14 RF: 0 (DME) lancets [OneTouch Delica Plus Lancet] 33 gauge misc See Rx Instructions .ROUTE .MEDSUPPLY Qty: 180 RF: 5 diclofenac sodium [Voltaren] 1 % gel 4 g topical QID PRN (Reason: Pain) RF: 0 rizatriptan 5 mg tablet 5 mg PO DIRECTED PRN (Reason: Migraine Headache) RF: 0 ibuprofen 800 mg tablet 800 mg PO TID PRN (Reason: Pain) RF: 0 promethazine 25 mg tablet 25 mg PO Q6H PRN (Reason: Nausea) RF: 0 insulin aspart U-100 [Novolog Flexpen U-100 Insulin] 100 unit/mL (3 mL) insulin pen See Rx Instructions .ROUTE .COMPLEX RF: 0 Lantus Solostar U-100 Insulin 100 unit/mL (3 mL) insulin pen 40 unit SUBCUT BID Qty: 0 RF: 0 amoxicillin-pot clavulanate 875-125 mg tablet 1 tab PO Q12H Qty: 10 RF: 0 Discontinued clindamycin HCl 150 mg capsule 150 mg PO BID RF: 0 Discharge Orders: Discharge Order (Routine); Ordered 03/24/20 Ordered By: Jose Leonardo/Other Patient Handouts: Medicine for Pain, Facts About Diabetes Admission Data Admit Date/Time: 03/21/20 13:35 Attending Provider: Jose Peters Admit Provider: Gerard Park Primary Care Provider: Aneudy Pérez Other Providers: Venkat Herrera ; Gerard Park ; Vahe Rios Other Interventions: Discharge Summary Assessment (RN) Last Done: 03/24/20 14:29 DC Date/Time DO NOT enter until pt leaves facility: 03/24/20 15:56 Coding Level of Care Code D/C Day Management >30 mins Diagnoses Dental abscess K04.7 Failure of outpatient treatment Z78.9 Opioid abuse F11.10 Diabetes E11.9 Diabetes mellitus type: type 2 Diabetes mellitus custodial insulin use: without custodial use Diabetes mellitus complication status: without complication Skin abscess L02.91 Liver cirrhosis K74.60 Hepatic cirrhosis type: unspecified hepatic cirrhosis Chronic obstructive pulmonary disease J44.9 Tinea cruris B35.6 DVT prophylaxis Z29.9 Time Spent (min) 35
== END 2020-03-24 15:56 | disposition home or self-care (01) ==
LOC: ED 10:06 → 3N 10:06 → SUATTDRO 13:35 → 3N 14:37

== ENCOUNTER 2020-05-19 18:01 | Observation (INO) ==
[2020-05-19] MEDS ORDERED: SODIUM CHLORIDE 0.9% 1000ML 1,000 ML IV SCH (18:45)
[2020-05-19] MEDS ORDERED: ONDANSETRON INJ 2 MG/ML 2 ML VIAL IV STA (18:48)
[2020-05-19] MEDS ORDERED: MoRPHine SULFATE 4 MG/ML 1 ML CARP\\VIAL IV STA (18:48)
--- NOTE | 2020-05-19 18:57 | Emergency Department Note ---
History of Present Illness General Chief complaint: Hyperglycemia Stated complaint: HYPERGLYCEMIA, BSG 600+ Time Seen by Provider: 05/19/20 18:22 History of Present Illness This is a 49-year-old female that presents to the emergency department via private vehicle with complaints of "hyperglycemia, right shoulder pain, left knee pain, boils". The patient notes that she has been experiencing hyperglycemia for the past 2 weeks. She denies any fevers or chills but does note which she believes are small boils forming in the bilateral axilla region as well as groin. She is currently on doxycycline as well as Augmentin. The patient denies any chest pain or shortness of breath. She states that last BSG she checked was 564 earlier today. She was seen here twice just a few days ago and states that the sugar is controlled somewhat while she is here with them when she goes home it remains elevated into the 500 and 600 region. She also notes associated headache, palpitations, feeling unwell, and general aches and pains. She is right-hand dominant and notes right shoulder pain worse with movement and mildly better with rest. She also notes unilateral left lower extremity edema as well as left knee pain. No reported trauma or injury. She states that she has been compliant with her medication. Home Medications Home Medications Medication Instructions Recorded Confirmed Type cyclobenzaprine 10 mg PO BID PRN #0 11/18/17 05/19/20 History gabapentin 1,200 mg PO TID #0 tab 11/18/17 05/19/20 History albuterol sulfate [Ventolin HFA] 2 puff INHALATION Q4H PRN #0 02/10/18 05/19/20 History diclofenac sodium [Voltaren] 4 g TOPICAL QID PRN 01/05/19 05/19/20 History rizatriptan 5 mg PO DIRECTED PRN 06/16/19 05/19/20 History ibuprofen 800 mg PO TID PRN 10/24/19 05/19/20 History promethazine 25 mg PO Q6H PRN 10/24/19 05/19/20 History OneTouch Delica Plus Lancet 33 #180 ea NS 11/02/19 05/16/20 Rx gauge OneTouch Verio test strips #150 ea NS 11/05/19 05/16/20 Rx oxycodone-acetaminophen 10 mg-325 1 tab PO Q6H PRN #20 tab 02/11/20 Rx mg tablet amoxicillin-pot clavulanate 1 tab PO BID 10 Days #19 tab 05/15/20 05/19/20 Rx [Augmentin] doxycycline hyclate 100 mg PO BID 10 Days #19 tab 05/15/20 05/19/20 Rx Trulicity 1.5 mg SUBCUT WK 05/19/20 05/19/20 History oxycodone 5 mg PO Q8H PRN 05/20/20 05/20/20 History insulin aspart U-100 [Novolog 5 unit SC ACHS #15 ml 05/21/20 Rx Flexpen U-100 Insulin] insulin glargine [Lantus Solostar 32 unit SUBCUT BID 30 Days #15 ml 05/21/20 Rx U-100 Insulin] lidocaine 1 patch TRANSDERMAL QAM 30 Days 05/21/20 Rx #30 ea Allergies Allergy/AdvReac Type Severity Reaction Status Date / Time cephalexin AdvReac Severe Vomiting Verified 05/19/20 18:49 levofloxacin [From Levaquin] AdvReac Vomiting Verified 05/19/20 18:49 Past Med/Surg History Medical History Anxiety Brain cyst Chronic low back pain with left-sided sciatica Chronic obstructive pulmonary disease Depression Emphysema of lung Hx of blood clots Hypertension (Chronic) Insulin dependent diabetes mellitus (Chronic) Obesity Opioid abuse Pulmonary embolism Tinea corporis (Acute) Uncontrolled type 2 diabetes mellitus (Chronic) Surgical History History of laparoscopic cholecystectomy Hx of oral surgery (02/15/20) Acute right submandibular, submental space infection with floor of mouth infection caused by infected lower teeth. Dr. Rios 02/15/20 S/P laparoscopic hernia repair Family History Mother , 73 Heart disease Cancer Father Skin cancer Brother No problems noted. Sister No problems noted. Grandmother (Maternal) , 48 Heart disease T2DM (type 2 diabetes mellitus) Grandmother (Paternal) , 83 Heart disease Kidney disease Uncle T2DM (type 2 diabetes mellitus) Other Diabetes Obesity Social History Smoking Status: Current every day smoker Cigarettes Per Day: 5; Second Hand Exposure: Yes; Hx Alcohol Use: No Hx Substance Use: Yes Last Used Substance: Hours (ago) Preferred Language: Malay Communication Ability: Effective Visual Impairment: No Limitations Sales Vice President Required: No Beliefs That Will Affect Care: None marital status: Current Living Situation: Family Current Living Situation Comment: lives with 13 year old daughter current occupational status: unemployed Feels Safe at Home: Yes Review of Systems A total of 10 systems reviewed and were otherwise negative Physical Exam Vital Signs Vital Signs - 24 hr 05/19/20 18:07 05/19/20 19:29 05/19/20 19:30 Temperature 37.0 C Temperature Source Oral Pulse Rate 99 H 87 89 Respiratory Rate 22 15 22 Blood Pressure 101/72 Blood Pressure Mean 81 Pulse Oximetry 96 Sepsis Recent Fever Within 48 Hours No Sepsis New/Unexplained Change in Mental Status No Sepsis Action Taken by Nursing No Action Required 05/19/20 20:25 05/19/20 20:26 05/19/20 20:30 Temperature Temperature Source Pulse Rate 80 79 83 Respiratory Rate 21 18 20 Blood Pressure 120/58 L Blood Pressure Mean 81 Pulse Oximetry Sepsis Recent Fever Within 48 Hours Sepsis New/Unexplained Change in Mental Status Sepsis Action Taken by Nursing 05/19/20 21:00 05/19/20 21:30 05/19/20 22:00 Temperature Temperature Source Pulse Rate 77 92 H 86 Respiratory Rate 19 17 16 Blood Pressure 125/78 Blood Pressure Mean 93 Pulse Oximetry Sepsis Recent Fever Within 48 Hours Sepsis New/Unexplained Change in Mental Status Sepsis Action Taken by Nursing VITAL SIGNS - Vital signs and nursing notes were reviewed. Stable and afebrile. GENERAL -49-year-old female appearing her stated age who is in no acute distress. Communicates well with provider and answers questions appropriately. SKIN - Without rashes. No meningeal or petechial rash. Patient points to what she believes are small boils in the axilla and groin region but on examination no erythema, or induration is noted. There are small palpable regions just deep to the skin surface which are nonfluctuant. These are nodular-like in nature. HEAD - NC/AT. EYES - PERRL with EOMI bilaterally. Sclera anicteric. EARS - No deformities of external structures noted on gross examination bilaterally. NOSE - Midline and without cyanosis. No epistaxis or purulent drainage noted. MOUTH/OROPHARYNX - Without perioral cyanosis. NECK - Neck with FROM. No nuchal rigidity. LUNGS - Chest wall symmetric without accessory muscle use, intercostals retractions, or central cyanosis. Normal vesicular breath sounds CTA B/L. No wheezes, rales, or rhonchi appreciated. CARDIAC - RRR with S1/S2. No murmur, rubs, or gallops appreciated. ABDOMEN - Abdominal contour normal without pulsations or visible masses. BS normoactive all four quadrants. No tenderness, palpable masses, hepatosplenomegaly, or ascites noted. EXTREMITIES - No clubbing or peripheral cyanosis. No pretibial edema present. Mild unilateral, left lower extremity edema noted to inspection. +5/5 strength noted in UE/LE bilaterally. NEUROLOGIC - Cranial nerves II through XII grossly intact. Sensory intact to light touch throughout. PSYCH - A&Ox3 and cooperates fully with examiner. Pt is very pleasant and interacts well with examiner. Course Administered Medications Discontinued Medications Albuterol (Albuterol Hfa 8 Gm Inhaler) 2 puffs INH Q4H PRN PRN Reason: Shortness Of Breath Or Wheezin Stop: 06/19/20 00:27 Last Admin: 05/20/20 09:43 Dose: 2 puffs Documented by: [id number] Amoxicillin/Clavulanate Potassium (Amoxicillin/Clavulanate 875 Mg Tab) 1 tab PO BID [facility]; Protocol Stop: 05/25/20 08:59 Last Admin: 05/21/20 08:00 Dose: 1 tab Documented by: [id number] Admin: 05/20/20 20:08 Dose: 1 tab Documented by: [id number] Admin: 05/20/20 09:08 Dose: 1 tab Documented by: [id number] Amoxicillin/Clavulanate Potassium (Augmentin 875mg) 1 tab PO NOW ONE Stop: 05/20/20 01:09 Last Admin: 05/20/20 02:00 Dose: 1 tab Documented by: [id number] Doxycycline Hyclate (Doxycycline Hyclate 100 Mg Cap) 100 mg PO BID [facility]; Protocol Stop: 05/25/20 08:59 Last Admin: 05/21/20 07:59 Dose: 100 mg Documented by: [id number] Admin: 05/20/20 20:07 Dose: 100 mg Documented by: [id number] Admin: 05/20/20 09:09 Dose: 100 mg Documented by: [id number] Doxycycline Hyclate (Vibramycin) 100 mg PO NOW STA Stop: 05/20/20 01:09 Last Admin: 05/20/20 02:00 Dose: 100 mg Documented by: [id number] Enoxaparin Sodium (Enoxaparin Inj 60 Mg/0.6 Ml Syr) 50 mg SQ Q24H YEN Stop: 06/19/20 08:59 Last Admin: 05/21/20 08:06 Dose: 50 mg Documented by: [id number] Admin: 05/20/20 09:05 Dose: 50 mg Documented by: [id number] Fluticasone/Vilanterol (Fluticasone/Vilanterol 100/25mcg 14 Puffs/Inhaler) 1 puffs INH DAILY YEN Stop: 06/19/20 18:44 Last Admin: 05/21/20 08:03 Dose: 1 puffs Documented by: [id number] Admin: 05/20/20 19:37 Dose: 1 puffs Documented by: [id number] Gabapentin (Gabapentin 600 Mg Tab) 1,200 mg PO TID YEN Stop: 06/19/20 08:59 Last Admin: 05/21/20 14:35 Dose: 1,200 mg Documented by: [id number] Admin: 05/21/20 07:59 Dose: 1,200 mg Documented by: [id number] Admin: 05/20/20 20:07 Dose: 1,200 mg Documented by: [id number] Admin: 05/20/20 13:39 Dose: 1,200 mg Documented by: [id number] Admin: 05/20/20 09:09 Dose: 1,200 mg Documented by: [id number] Sodium Chloride (Nss 1000ml) 1,000 mls @ 999 mls/hr IV .Q1H1M YEN Stop: 05/19/20 19:45 Last Infusion: 05/19/20 20:20 Dose: 0 mls/hr Documented by: [id number] Admin: 05/19/20 19:18 Dose: 999 mls/hr Documented by: [id number] Potassium Chloride/Sodium Chloride (Normal Saline W/20 Meq Kcl) 20 meq in 1,000 mls @ 120 mls/hr IV .Q8H20M [facility] Stop: 06/19/20 00:27 Last Admin: 05/21/20 12:39 Dose: Not Given Documented by: [id number] Infusion: 05/21/20 12:38 Dose: 0 mls/hr Documented by: [id number] Admin: 05/21/20 01:12 Dose: 120 mls/hr Documented by: [id number] Infusion: 05/21/20 01:12 Dose: 120 mls/hr Documented by: [id number] Admin: 05/20/20 18:04 Dose: 120 mls/hr Documented by: [id number] Infusion: 05/20/20 17:25 Dose: 120 mls/hr Documented by: [id number] Admin: 05/20/20 09:05 Dose: 120 mls/hr Documented by: [id number] Infusion: 05/20/20 09:05 Dose: 120 mls/hr Documented by: [id number] Admin: 05/20/20 01:59 Dose: 120 mls/hr Documented by: [id number] Insulin Human Regular 5 units/ (Syringe) 5 mls @ 0 mls/hr IV ONE STA Stop: 05/20/20 01:15 Last Admin: 05/20/20 02:02 Dose: 1 mls/hr Documented by: [id number] Cosigned by: [id number] Insulin Human Regular 7 units/ (Syringe) 7 mls @ 0 mls/hr IV ONE STA Stop: 05/20/20 03:38 Last Admin: 05/20/20 03:55 Dose: 1 mls/hr Documented by: [id number] Cosigned by: [id number] Ibuprofen (Ibuprofen 800 Mg Tab) 800 mg PO TID PRN PRN Reason: Pain Stop: 06/19/20 00:27 Last Admin: 05/20/20 19:11 Dose: 800 mg Documented by: [id number] Insulin Aspart (Insulin Aspart 100 Units/Ml 3 Ml Pen) 0 units SC ACHS [facility]; Protocol Stop: 06/19/20 03:59 Last Admin: 05/21/20 12:40 Dose: 9 units Documented by: [id number] Cosigned by: [id number] Admin: 05/21/20 08:05 Dose: 6 units Documented by: [id number] Cosigned by: [id number] Admin: 05/20/20 20:08 Dose: 6 units Documented by: [id number] Cosigned by: [id number] Admin: 05/20/20 17:09 Dose: 17 units Documented by: [id number] Cosigned by: [id number] Admin: 05/20/20 12:36 Dose: 16 units Documented by: [id number] Cosigned by: [id number] Admin: 05/20/20 09:04 Dose: 14 units Documented by: [id number] Cosigned by: [id number] Admin: 05/20/20 05:06 Dose: Not Given Documented by: [id number] Cosigned by: [id number] Insulin Aspart (Insulin Aspart 100 Units/Ml 3 Ml Pen) 0 units SC 0000,0400 YEN; Protocol Stop: 05/21/20 04:01 Last Admin: 05/21/20 03:50 Dose: 1 units Documented by: [id number] Cosigned by: [id number] Admin: 05/20/20 23:42 Dose: 3 units Documented by: [id number] Cosigned by: [id number] Insulin Glargine (Lantus Solostar Pen) 32 units SC NOW STA Stop: 05/19/20 23:24 Last Admin: 05/19/20 23:45 Dose: 32 units Documented by: [id number] Cosigned by: [id number] Insulin Glargine (Lantus Solostar Pen) 32 units SQ BID [facility] Stop: 06/19/20 08:59 Last Admin: 05/20/20 09:07 Dose: 32 units Documented by: [id number] Cosigned by: [id number] Insulin Glargine (Insulin Glargine Solostar 100 Units/Ml 3 Ml Pen) 0 units SQ BID [facility]; Protocol Stop: 06/19/20 20:59 Last Admin: 05/21/20 08:02 Dose: 32 units Documented by: [id number] Cosigned by: [id number] Admin: 05/20/20 20:07 Dose: 38 units Documented by: [id number] Cosigned by: [id number] Insulin Human Regular (Novolin R U-100 Per Unit) 10 units SC NOW STA Stop: 05/19/20 19:59 Last Admin: 05/19/20 20:25 Dose: 10 units Documented by: [id number] Cosigned by: [id number] Insulin Human Regular (Novolin R U-100 Per Unit) 10 units SC NOW STA Stop: 05/19/20 21:19 Last Admin: 05/19/20 21:35 Dose: 10 units Documented by: [id number] Cosigned by: [id number] Insulin Human Regular (Novolin R U-100 Per Unit) 10 units IV NOW STA Stop: 05/19/20 23:20 Last Admin: 05/19/20 23:45 Dose: 10 units Documented by: [id number] Cosigned by: [id number] Lidocaine (Lidocaine 5% 1 Patch) 1 patch TD QAM YEN Stop: 06/19/20 08:59 Last Admin: 05/21/20 08:00 Dose: 1 patch Documented by: [id number] Admin: 05/20/20 09:06 Dose: 1 patch Documented by: [id number] Miscellaneous (Remove Lidoderm Patch) 1 ea N/A DAILY@2100 [facility] Stop: 06/19/20 20:59 Last Admin: 05/20/20 20:09 Dose: 1 ea Documented by: [id number] Morphine Sulfate (Morphine Sulfate) 4 mg IV NOW STA Stop: 05/19/20 18:49 Last Admin: 05/19/20 19:18 Dose: 4 mg Documented by: [id number] Ondansetron HCl (Zofran) 4 mg IV NOW STA Stop: 05/19/20 18:49 Last Admin: 05/19/20 19:18 Dose: 4 mg Documented by: [id number] Ondansetron HCl (Ondansetron Inj 2 Mg/Ml 2 Ml Vial) 4 mg IV Q6H PRN PRN Reason: Nausea Stop: 06/19/20 00:27 Last Admin: 05/21/20 07:59 Dose: 4 mg Documented by: [id number] Admin: 05/20/20 21:24 Dose: 4 mg Documented by: [id number] Admin: 05/20/20 12:42 Dose: 4 mg Documented by: [id number] Oxycodone HCl (Roxicodone Immediate Rel) 5 mg PO NOW STA Stop: 05/19/20 21:41 Last Admin: 05/19/20 21:55 Dose: 5 mg Documented by: [id number] Oxycodone HCl (Oxycodone Hcl Ir 5 Mg Tab (Immediate Release)) 5 mg PO Q8H PRN PRN Reason: Pain Stop: 06/03/20 02:20 Last Admin: 05/21/20 07:58 Dose: 5 mg Documented by: [id number] Admin: 05/20/20 19:09 Dose: 5 mg Documented by: [id number] Admin: 05/20/20 11:11 Dose: 5 mg Documented by: [id number] Admin: 05/20/20 02:44 Dose: 5 mg Documented by: [id number] Potassium Chloride (Klor-Con M20) 20 meq PO Q4H YEN Stop: 05/20/20 09:31 Last Admin: 05/20/20 09:09 Dose: 20 meq Documented by: [id number] Admin: 05/20/20 06:07 Dose: 20 meq Documented by: [id number] Admin: 05/20/20 02:07 Dose: 20 meq Documented by: [id number] Medical Decision Making Laboratory Data Result diagrams: 05/20/20 07:15 05/20/20 07:15 Lab Results 05/19/20 05/19/20 05/19/20 Range/Units 19:05 19:05 20:59 WBC 7.10 (4.8-10.8) K/uL RBC 5.10 (4.2-5.4) M/uL Hgb 16.1 H (12.0-16.0) g/dL Hct 45.7 (37-47) % MCV 89.6 (80-100) fL MCH 31.6 (25-34) pg MCHC 35.2 (32-36) g/dL RDW Std Deviation 47.2 H (36.4-46.3) fL RDW Coeff of Kelli 14.3 (11.5-14.5) % Plt Count 124 L (130-400) K/uL MPV 12.3 H (7.4-10.4) fL Immature Gran % (Auto) 0.2 % Neut % (Auto) 57.5 % Lymph % (Auto) 33.3 % [place] % (Auto) 6.8 % Eos % (Auto) 1.7 % Baso % (Auto) 0.5 % Neut # (Auto) 3.84 (1.4-6.5) K/uL Lymph # (Auto) 2.22 (1.2-3.4) K/uL [place] # (Auto) 0.45 (0.11-0.59) K/uL Eos # (Auto) 0.11 (0-0.5) K/uL Baso # (Auto) 0.03 (0-0.2) K/uL Immature Gran # (Auto) 0.01 (0.00-0.02) K/uL Sodium 135 L (136-145) mmol/L Potassium 3.5 (3.5-5.1) mmol/L Chloride 104 (98-107) mmol/L Carbon Dioxide 22 (21-32) mmol/L Anion Gap 9.0 (3-11) BUN 6 L (7-18) mg/dl Creatinine 0.83 (0.6-1.2) mg/dl Est Cr Clr Drug Dosing 96.7 ml/min Est GFR ( Amer) 94.6 Est GFR (Non-Af Amer) 81.6 BUN/Creatinine Ratio 6.6 L (10-20) Glucose 440 H* (70-99) mg/dl POC Glucose 470 H* (70-99) mg/dl Calcium 9.5 (8.5-10.1) mg/dl Magnesium 1.8 (1.8-2.4) mg/dl Total Bilirubin 0.5 (0.2-1) mg/dl AST 14 L (15-37) U/L ALT 28 (12-78) U/L Alkaline Phosphatase 166 H (45-117) U/L Total Protein 7.6 (6.4-8.2) gm/dl Albumin 3.3 L (3.4-5.0) gm/dl Globulin 4.3 H (2.5-4.0) gm/dl Albumin/Globulin Ratio 0.8 L (0.9-2) Beta-Hydroxybutyric Acd 10.10 H (0.2-2.81) mg/dl Urine Color Urine Appearance (Clear) Urine pH (4.5-7.5) Ur Specific [place] (1.000-1.030) Urine Protein (Negative) Urine Glucose (UA) (Negative) Urine Ketones (Negative) Urine Blood (Negative) Urine Nitrite (Negative) Urine Bilirubin (Negative) Urine Urobilinogen (Negative) Ur Leukocyte Esterase (Negative) Urine WBC (Auto) (0-5) /hpf Urine RBC (Auto) (0-4) /hpf U Hyaline Cast (Auto) (0-5) /lpf U Epithel Cells (Auto) (0-5) /lpf Urine Bacteria (Auto) (Negative) 05/19/20 05/19/20 05/19/20 Range/Units 21:10 22:06 22:47 WBC (4.8-10.8) K/uL RBC (4.2-5.4) M/uL Hgb (12.0-16.0) g/dL Hct (37-47) % MCV (80-100) fL MCH (25-34) pg MCHC (32-36) g/dL RDW Std Deviation (36.4-46.3) fL RDW Coeff of Kelli (11.5-14.5) % Plt Count (130-400) K/uL MPV (7.4-10.4) fL Immature Gran % (Auto) % Neut % (Auto) % Lymph % (Auto) % [place] % (Auto) % Eos % (Auto) % Baso % (Auto) % Neut # (Auto) (1.4-6.5) K/uL Lymph # (Auto) (1.2-3.4) K/uL [place] # (Auto) (0.11-0.59) K/uL Eos # (Auto) (0-0.5) K/uL Baso # (Auto) (0-0.2) K/uL Immature Gran # (Auto) (0.00-0.02) K/uL Sodium (136-145) mmol/L Potassium (3.5-5.1) mmol/L Chloride (98-107) mmol/L Carbon Dioxide (21-32) mmol/L Anion Gap (3-11) BUN (7-18) mg/dl Creatinine (0.6-1.2) mg/dl Est Cr Clr Drug Dosing ml/min Est GFR ( Amer) Est GFR (Non-Af Amer) BUN/Creatinine Ratio (10-20) Glucose (70-99) mg/dl POC Glucose 511 H* 553 H* (70-99) mg/dl Calcium (8.5-10.1) mg/dl Magnesium (1.8-2.4) mg/dl Total Bilirubin (0.2-1) mg/dl AST (15-37) U/L ALT (12-78) U/L Alkaline Phosphatase (45-117) U/L Total Protein (6.4-8.2) gm/dl Albumin (3.4-5.0) gm/dl Globulin (2.5-4.0) gm/dl Albumin/Globulin Ratio (0.9-2) Beta-Hydroxybutyric Acd (0.2-2.81) mg/dl Urine Color Yellow Urine Appearance Clear (Clear) Urine pH 5.5 (4.5-7.5) Ur Specific [place] 1.044 H (1.000-1.030) Urine Protein 1+ H (Negative) Urine Glucose (UA) 3+ H (Negative) Urine Ketones 1+ H (Negative) Urine Blood 3+ H (Negative) Urine Nitrite Negative (Negative) Urine Bilirubin Negative (Negative) Urine Urobilinogen Negative (Negative) Ur Leukocyte Esterase Negative (Negative) Urine WBC (Auto) 0 (0-5) /hpf Urine RBC (Auto) 0-4 (0-4) /hpf U Hyaline Cast (Auto) 0 (0-5) /lpf U Epithel Cells (Auto) >30 H (0-5) /lpf Urine Bacteria (Auto) Negative (Negative) Imaging Data Radiologist's Impression: XR knee LT 3V CLINICAL HISTORY: L knee pain COMPARISON: 06/14/2019 DISCUSSION: There are moderately advanced osteoarthritic changes within the medial joint compartment and patellofemoral joint. There are multiple calcified loose bodies suggesting synovial osteochondromatosis. No acute fractures are visualized IMPRESSION: 1. No acute fractures identified 2. Moderately advanced osteoarthritic change 3. 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 Electronically signed by: Jeremy Thibodeaux M.D. 05/19/2020 7:31 PM XR shoulder RT min 2V routine CLINICAL HISTORY: Right shoulder pain COMPARISON: None. DISCUSSION: Degenerative changes are present within the AC joint. No acute fractures or subluxations are visualized. There are mild degenerative changes within the glenohumeral joint. No destructive lesions are evident IMPRESSION: 1. No acute fractures 2. Degenerative changes ACT 112: Negative or not required by law. Electronically signed by: Jeremy Thibodeaux M.D. 05/19/2020 7:32 PM MDM Narrative Patient was seen and evaluated as above in room B 10. Review was performed of nursing notes and vital signs. I did review pertinent previous visits and patient history. After obtaining a thorough history and physical examination the above work up was performed. She presents to us today with complaints of hyperglycemia, right shoulder pain, left knee pain, not feeling well, lack of sleep, decreased appetite. She is nontoxic on examination had stable vital signs. IV access was established. Labs were drawn. No leukocytosis or significant anemia. No emergent metabolic disturbance. Glucose 440 and therefore 10 units of subcu insulin was ordered. She was also hydrated liter normal saline. Patient requested something for the right shoulder and left knee pain. She was given 4 mg of morphine IV and 4 mg of Zofran. Patient did request that I discuss her presentation with her PCP, Dr. Pérez and I did speak with him. He will follow-up with her in the outpatient setting. At this time we will likely increase her glargine until she can follow-up. BS she was rechecked after the 10 units of subcutaneous insulin was provided and the BSG w as then 470. Time was allowed to pass noting the onset and peak of the insulin. Another 10 units of human regular insulin subcutaneous was provided. It was then felt that since it had been at least one hour since the initial insulin dose that a repeat BSG would be reasonable. Patient denies eating or drinking anything that contain sugar in the past several hours. When I stepped into the exam room she had just checked her sugar and it was in the mid to too high 500 region. BSG she was then rechecked and found to be 511. I again asked the patient if she had consumed anything that had sugar while she was here and she said no. For this reason noted the patient's increase in sugar despite a total of 20 units of regular insulin which at least some of this should have been starting to work up on the hyperglycemia it is felt that further evaluation and management in the inpatient setting is warranted. BSG recheck then was 553. Although it was SQ and not IV, I would have expected a decrease and not an increase. With her BSG above 500 despite medication it was felt reasonable to have her evaluated by the hospitalist. Case discussed with the attending physician as well as the hospitalist. Please refer to further documentation regarding her stay. In the evaluation and treatment of this patient the following differential diagnoses were entertained: Hyperglycemia, DKA, infection, among others. Impression & Plan Hyperglycemia, Knee pain, left, Pain in right shoulder Discharge Plan Visit Data Chief Complaint: Hyperglycemia Stated Complaint: HYPERGLYCEMIA, BSG 600+ ED Provider: Harley Swanson ED Midlevel Provider: Ankit Wilkerson Discharge Problem: Hyperglycemia, Knee pain, left, Pain in right shoulder Patient Disposition: Admitted As Inpatient Condition: Good Discharge Instructions Interventions: ED Discharge Assessment Last Done: 05/20/20 00:04 Discharge Problem: Pain in right shoulder Qualifiers: Chronicity: acute Qualified Code(s): M25.511 - Pain in right shoulder
--- NOTE | 2020-05-19 19:32 | XRay Report ---
XR knee LT 3V CLINICAL HISTORY: L knee pain COMPARISON: 06/14/2019 DISCUSSION: There are moderately advanced osteoarthritic changes within the medial joint compartment and patellofemoral joint. There are multiple calcified loose bodies suggesting synovial osteochondrom atosis. No acute fractures are visualized IMPRESSION: 1. No acute fractures identified 2. Moderately advanced osteoarthritic change 3. 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 Electronically signed by: Jeremy Thibodeaux M.D. 05/19/2020 7:31 PM
--- NOTE | 2020-05-19 19:33 | XRay Report ---
XR shoulder RT min 2V routine CLINICAL HISTORY: Right shoulder pain COMPARISON: None. DISCUSSION: Degenerative changes are present within the AC joint. No acute fractures or subluxations are visualized. There are mild degenerative changes within the glenohumeral joint. No destructive les ions are evident IMPRESSION: 1. No acute fractures 2. Degenerative changes ACT 112: Negative or not required by law. Electronically signed by: Jeremy Thibodeaux M.D. 05/19/2020 7:32 PM
[2020-05-19 19:45] LABS: Albumin Globulin Ratio 0.8 (0.9-2); Albumin Level 3.3 gm/dl (3.4-5.0); BUN Creatinine Ratio 6.6 (10-20); Bilirubin,Total 0.5 mg/dl (0.2-1); Calcium 9.5 mg/dl (8.5-10.1); Creatinine Clr Calc Pharmacy 96.7 ml/min; Est GFR (African American) 94.6; Est GFR (Non-African American) 81.6; Globulin 4.3 gm/dl (2.5-4.0); Magnesium 1.8 mg/dl (1.8-2.4); Potassium 3.5 mmol/L (3.5-5.1); Total Protein 7.6 gm/dl (6.4-8.2)
[2020-05-19 19:58] LABS: Beta-Hydroxybutyrate 10.1 mg/dl (0.2-2.81)
[2020-05-19] MEDS ORDERED: NovoLIN-R INSULIN PER UNIT CHARGE SC STA ×2 (19:58→21:18)
--- NOTE | 2020-05-19 20:13 | Ultrasound Report ---
US venous doppler LE LT CLINICAL HISTORY: Left leg pain COMPARISON STUDY: 04/04/2018 FINDINGS: Real-time and color flow Doppler imaging were performed. Flow was seen within the femoral, popliteal and calf veins with no intraluminal thrombus demonstrated. The saphenous vein is patent. IMPRESSION: No evidence of left lower extremity DVT. ACT 112: Negative or not required by law. Electronically signed by: Jeremy Thibodeaux M.D. 05/19/2020 8:12 PM
[2020-05-19 20:19] LABS: Hematocrit (blood only) 45.7 % (37-47); Hemoglobin 16.1 g/dL (12.0-16.0); Mean Corpuscular Hemoglobin 31.6 pg (25-34); Mean Corpuscular Hgb Conc 35.2 g/dL (32-36); Mean Corpuscular Volume 89.6 fL (80-100); Mean Platelet Volume 12.3 fL (7.4-10.4); Platelet Count 124 K/uL (130-400); RDW Coefficient of Variation 14.3 % (11.5-14.5); RDW Standard Deviation 47.2 fL (36.4-46.3)
[2020-05-19 20:23] LABS: Basophils # (auto) 0.03 K/uL (0-0.2); Basophils % (auto) 0.5 %; Eosinophils # (auto) 0.11 K/uL (0-0.5); Eosinophils % (auto) 1.7 %; Immature Granulocytes # (auto) 0.01 K/uL (0.00-0.02); Immature Granulocytes % (auto) 0.2 %; Lymphocytes # (auto) 2.22 K/uL (1.2-3.4); Lymphocytes % (auto) 33.3 %; Monocytes # (auto) 0.45 K/uL (0.11-0.59); Monocytes % (auto) 6.8 %; Neutrophils # (auto) 3.84 K/uL (1.4-6.5); Neutrophils % (auto) 57.5 %
[2020-05-19 21:24] LABS: Appearance Urine Clear (Clear); Bacteria Urine Automated Negative (Negative); Bilirubin Urine Negative (Negative); Blood Urine 3+ (Negative); Cast Urine Automated 0 /lpf (0-5); Color Urine Yellow; Epithelial Cell Urine Auto >30 /lpf (0-5); Glucose Urine UA 3+ (Negative); Ketones Urine 1+ (Negative); Leukocyte Esterase Urine Negative (Negative); Nitrite Urine Negative (Negative); Protein Urine 1+ (Negative); RBC Urine Automated 0-4 /hpf (0-4); Specific Gravity Urine 1.044 (1.000-1.030); Urobilinogen Urine Negative (Negative); WBC Urine Automated 0 /hpf (0-5); pH Urine 5.5 (4.5-7.5)
[2020-05-19] MEDS ORDERED: OXYCODONE HCL IR 5 MG TAB (IMMEDIATE RELEASE) PO STA (21:40)
--- NOTE | 2020-05-19 22:57 | History & Physical Report ---
Date of Service May 19, 2020 Assessment & Plan (1) Hyperglycemia: Elza is a 49-year-old female with a complex past medical history including uncontrolled type 2 diabetes mellitus on insulin, liver cirrhosis, chronic shoulder knee and hip pain, history of opioid abuse, hypertension, and obesity who presents with 2 to 3 days of persistent increasing hyperglycemia. Hyperglycemia with ketosis BSG high 400s, increased to 551 while in ED. Did not improve with subcu insulin administration Continue home dose Lantus 32 units subcu twice daily, aspart sliding scale ordered but parameters as she has responded favorably with controlled diet in the hospital previously Spot doses of insulin regular IV 10 units overnight, BSG checks 1 hour post, defer insulin GTT at this time BMP every morning Glycemic consult placed A1c greater than 12, will require further education and improve glycemic control as outpatient No anion gap N.p.o. overnight, resume breakfast in the morning Continue gabapentin for neuropathy and pain control History of dental infection On Augmentin/doxycycline therapy as outpatient, scheduled to complete 10-day course on 05/25 doing well since initiation We will continue antibiotics as inpatient, follow clinically Afebrile CBC daily Chronic shoulder, back pain History of narcotic abuse, defer opiates at this time Ibuprofen versus Toradol as needed - Voltaren, lidocaine patch Caution Tylenol use with transaminitis and history of cirrhosis Continue GAG WRITER cyclobenzaprine and gabapentin History of liver cirrhosis Patient without biopsy, concern for PINON No chronic decompensation Disposition: Admit MedSurg with telemetry while undergoing IV doses of insulin FEN GI: N.p.o. until breakfast, NSS +20 KCl CODE STATUS: Full code DVT prophylaxis: Enoxaparin, dose adjusted for weight (2) Knee pain, left: (3) Tinea corporis: (4) Opioid abuse: (5) Pain in right shoulder: (6) Cutaneous abscess: (7) Thrombocytopenia: (8) Chronic obstructive pulmonary disease: (9) Tinea cruris: (10) Dental abscess: (11) Acute hyperglycemia: (12) Uncontrolled type 2 diabetes mellitus: (13) Liver cirrhosis: (14) DVT prophylaxis: History of Present Illness Chief Complaint: Hyperglycemia Primary Care Provider: Aneudy Pérez MD Elza is a 49-year-old female with a complex past medical history including uncontrolled type 2 diabetes mellitus on insulin, liver cirrhosis, chronic shoulder knee and hip pain, history of opioid abuse, hypertension, and obesity who presents with 2 to 3 days of persistent increasing hyperglycemia. Elza reports she has had trouble controlling her blood sugars over the past few months, but in the last day her blood sugars have risen to the 400s and even taking her Lantus and sliding scale aspart have not come down. She endorses polyuria without dysuria. Endorses some blurry vision in the last day. Endorses fatigue but denies lightheadedness, dizziness, chest pain, chest pressure, lower extremity swelling. She endorses some flank pain. She endorses chronic baseline abdominal pain due to a hernia which has not changed recently. Denies nausea/vomiting at time of assessment. Endorses neuropathy, but overall has intact sensation and denies recent ulcerations of her feet. Denies new skin infection, although notes she has had some boils as previously noted. Denies dietary indiscretion prior to admission, reports she has not eaten in several hours. Blood sugar continued to climb following administration of subcu regular insulin in the ED, and she is aware that she is being admitted for hyperglycemic management. Medical history: Reviewed Medications: Reviewed Allergies: Reviewed Surgical history: Reviewed Social: Denies tobacco, alcohol, and recreational drug use. She lives at home, has a 13-year-old child who is currently staying with her ex- who has custody 50% of the time. CODE STATUS: Full code Allergies Allergy/AdvReac Type Severity Reaction Status Date / Time cephalexin AdvReac Severe Vomiting Verified 05/19/20 18:49 levofloxacin [From Levaquin] AdvReac Vomiting Verified 05/19/20 18:49 Home Medications Home Medications Medication Instructions Recorded Confirmed Type cyclobenzaprine 10 mg PO BID PRN #0 11/18/17 05/19/20 History gabapentin 1,200 mg PO TID #0 tab 11/18/17 05/19/20 History albuterol sulfate [Ventolin HFA] 2 puff INHALATION Q4H PRN #0 02/10/18 05/19/20 History diclofenac sodium [Voltaren] 4 g TOPICAL QID PRN 01/05/19 05/19/20 History rizatriptan 5 mg PO DIRECTED PRN 06/16/19 05/19/20 History ibuprofen 800 mg PO TID PRN 10/24/19 05/19/20 History promethazine 25 mg PO Q6H PRN 10/24/19 05/19/20 History insulin aspart U-100 [Novolog 17 unit SUBCUT UD 10/29/19 05/19/20 History Flexpen U-100 Insulin] OneTouch Delica Plus Lancet 33 #180 ea NS 11/02/19 05/16/20 Rx gauge OneTouch Verio test strips #150 ea NS 11/05/19 05/16/20 Rx oxycodone-acetaminophen 10 mg-325 1 tab PO Q6H PRN #20 tab 02/11/20 Rx mg tablet Lantus Solostar U-100 Insulin 32 unit SUBCUT BID 05/15/20 05/19/20 History amoxicillin-pot clavulanate 1 tab PO BID 10 Days #19 tab 05/15/20 05/19/20 Rx [Augmentin] doxycycline hyclate 100 mg PO BID 10 Days #19 tab 05/15/20 05/19/20 Rx dulaglutide [Trulicity] 1.5 mg SUBCUT WK 05/19/20 05/19/20 History oxycodone 5 mg PO Q8H PRN 05/20/20 05/20/20 History Past Med/Surg History Medical History Anxiety Brain cyst Chronic low back pain with left-sided sciatica Chronic obstructive pulmonary disease Depression Emphysema of lung Hx of blood clots Hypertension (Chronic) Insulin dependent diabetes mellitus (Chronic) Obesity Opioid abuse Pulmonary embolism Tinea corporis (Acute) Uncontrolled type 2 diabetes mellitus (Chronic) Surgical History History of laparoscopic cholecystectomy Hx of oral surgery (02/15/20) Acute right submandibular, submental space infection with floor of mouth infection caused by infected lower teeth. Dr. Rios 02/15/20 S/P laparoscopic hernia repair Family History Mother , 73 Heart disease Cancer Father Skin cancer Brother No problems noted. Sister No problems noted. Grandmother (Maternal) , 48 Heart disease T2DM (type 2 diabetes mellitus) Grandmother (Paternal) , 83 Heart disease Kidney disease Uncle T2DM (type 2 diabetes mellitus) Other Diabetes Obesity Social History Smoking Status: Current every day smoker Cigarettes Per Day: 5; Second Hand Exposure: Yes; Do You Dip or Chew Tobacco: No; Tobacco Cessation Education Requested by Patient: No Hx Alcohol Use: No Hx Substance Use: Yes Last Used Substance: Hours (ago) Preferred Language: Citizen Of [place] Communication Ability: Effective Visual Impairment: No Limitations Speeder Tender Required: No Beliefs That Will Affect Care: None marital status: Current Living Situation: Family Current Living Situation Comment: lives with 13 year old daughter current occupational status: unemployed Other Information That Helps Us Care for You: No Feels Safe at Home: Yes Safety Concerns: Feels Safe At This Time Review of Systems Review of Systems: Constitutional: Denies fever, chills, endorses fatigue Eyes: Endorses blurry vision as noted in HPI ENT: Denies ear pain, sore throat, sinus pain Cardiovascular: Denies Chest pain, chest pressure, palpitations, extremity swelling Respiratory: Denies shortness of breath, cough, sputum production, difficulty breathing Gastrointestinal: See HPI Genitourinary: Dors is frequency without dysuria Musculoskeletal: Dorsal is chronic right shoulder, left shoulder, left hip, and chronic back pain Integumentary:Denies rash, bruising. Endorses axillary boils. Denies other new skin changes Neurological: Dorsal chronic neuropathy, and endorses mild headache, denies numbness and tingling at time of exam Physical Exam Physical Exam: General: A&Ox3. NAD. Cooperative. HEENT: Atraumatic, normocephalic. Pupils equal and reactive to light and accommodation. Visual acuity grossly intact. Extraocular movements intact without nystagmus. Pulm: CTAB A&P. -wheezes, -rales, -rhonchi. Symmetrical chest rise. No increase work of breathing. No respiratory distress. Cardiac: RRR, -mrg. Radial pulses intact and symmetrical. Abdominal: Obese. Umbilical hernia, reducible. Tender overlying hernia. Mild rib tenderness at right lower ribs. No rebound tenderness. Bowel sounds intact Extremities: Intact. Moving all extremities equally. Coal Picker strength, ankle dorsiflexion/plantar flexion, elbow flexion 5/5 and symmetrical. PT pulse intact, radial pulse intact and symmetrical. Sensation to soft touch intact in fingertips and hallux without asymmetry. No ulcerations appreciated. Results & Data Results & Data ([facility]) Vital Signs (Past 12 Hours) Vital Signs Temp Pulse Resp BP Pulse Ox 05/19/20 22:00 86 16 125/78 05/19/20 21:30 92 H 17 05/19/20 21:00 77 19 05/19/20 20:30 83 20 05/19/20 20:26 79 18 05/19/20 20:25 80 21 120/58 L 05/19/20 19:30 89 22 05/19/20 19:29 87 15 05/19/20 18:07 37.0 C 99 H 22 101/72 96 Supervising Physician Co-Signing Physician Notes Attending addendum: I have physically seen this patient, have supervised the medical residents activities, and agree with the H&P unless as otherwise noted. Assessment and Plan: Hyperglycemia/poorly controlled diabetes mellitus/medical noncompliance- Blood sugars continue to increase to the emergency department in spite of addition of regular insulin. Continue Lantus insulin 32 units subcu twice daily, but will likely need higher dosing. Placed on Accu-Cheks before meals and at bedtime with NovoLog coverage per scale Aggressively rehydrate with IV fluids. Follow serial laboratories Dental infection- Continue outpatient antibiotics as inpatient: Augmentin and doxycycline. May be contributing factor to elevated blood sugars. Liver cirrhosis- Follow serial laboratories. Remaining orders and notations as noted Resident Activity Tracking Resident Involvement: Resident Care Provided Care Provided: Adult Hospital Medicine (1) Cutaneous abscess Site of cutaneous abscess: other site Qualified Code(s): L02.818 - Cutaneous abscess of other sites (2) Liver cirrhosis Hepatic cirrhosis type: unspecified hepatic cirrhosis
[2020-05-19] MEDS ORDERED: NovoLIN-R INSULIN PER UNIT CHARGE IV STA (23:19)
[2020-05-19] MEDS ORDERED: INSULIN GLARGINE SOLOSTAR 100 UNITS/ML 3 ML PEN SC STA (23:23)
[2020-05-20] MEDS ORDERED: CYCLOBENZAPRINE HCL 10 MG TAB PO PRN (00:28)
[2020-05-20] MEDS ORDERED: GLUCOSE 40% GEL 15 GM TUBE PO PRN (00:28)
[2020-05-20] MEDS ORDERED: ALBUTEROL HFA 8 GM INHALER INH PRN (00:28)
[2020-05-20] MEDS ORDERED: DEXTROSE 50% 50 ML SYRINGE IV PRN (00:28)
[2020-05-20] MEDS ORDERED: POLYETHYLENE (MIRALAX) 17 GM PACK PO PRN (00:28)
[2020-05-20] MEDS ORDERED: GLUCOSE 10 TABS/TUBE PO PRN (00:28)
[2020-05-20] MEDS ORDERED: IBUPROFEN 800 MG TAB PO PRN (00:28)
[2020-05-20] MEDS ORDERED: GLUCAGON FOR INJ 1 MG VIAL SQ PRN (00:28)
[2020-05-20] MEDS ORDERED: CARBOHYDRATES FOR HYPOGLYCEMIA PO PRN (00:28)
[2020-05-20] MEDS ORDERED: INSULIN HUMAN REGULAR PER UNIT 10 UNITS in SYRINGE 0 ML IV STA (00:55)
[2020-05-20] MEDS ORDERED: DOXYCYCLINE HYCLATE 100 MG CAP PO STA (01:08)
[2020-05-20] MEDS ORDERED: AMOXICILLIN/CLAVULANATE 875 MG TAB PO ONE (01:08)
[2020-05-20] MEDS ORDERED: INSULIN HUMAN REGULAR PER UNIT 5 UNITS in SYRINGE 4.95 ML IV STA (01:14)
[2020-05-20] MEDS ORDERED: PHARMACY GLYCEMIC MGMT CONSULT PRN (01:30)
[2020-05-20] MEDS: NSS + 20MEQ KCL 20 MEQ/1,000 ML BAG IV SCH ×3 (01:59→18:04)
[2020-05-20] MEDS: POTASSIUM CHLORIDE 20 MEQ TABCR PO SCH ×3 (02:07→09:09)
[2020-05-20] MEDS: OXYCODONE HCL IR 5 MG TAB (IMMEDIATE RELEASE) PO PRN ×3 (02:44→19:09)
[2020-05-20] MEDS ORDERED: INSULIN HUMAN REGULAR PER UNIT 7 UNITS in SYRINGE 6.93 ML IV STA (03:37)
[2020-05-20] MEDS: INSULIN ASPART 100 UNITS/ML 3 ML PEN SC SCH ×6 (05:06→23:42)
[2020-05-20 07:28] LABS: Basophils # (auto) 0.02 K/uL (0-0.2); Basophils % (auto) 0.3 %; Eosinophils # (auto) 0.23 K/uL (0-0.5); Eosinophils % (auto) 3.1 %; Hematocrit (blood only) 42.1 % (37-47); Hemoglobin 14.5 g/dL (12.0-16.0); Lymphocytes # (auto) 3.42 K/uL (1.2-3.4); Lymphocytes % (auto) 46.5 %; Mean Corpuscular Hemoglobin 31.3 pg (25-34); Mean Corpuscular Hgb Conc 34.4 g/dL (32-36); Mean Corpuscular Volume 90.7 fL (80-100); Mean Platelet Volume 11.9 fL (7.4-10.4); Monocytes # (auto) 0.59 K/uL (0.11-0.59); Neutrophils # (auto) 3.09 K/uL (1.4-6.5); Neutrophils % (auto) 42.1 %; Platelet Count 126 K/uL (130-400); RDW Coefficient of Variation 14.8 % (11.5-14.5); Red Blood Count 4.64 M/uL (4.2-5.4); White Blood Count 7.35 K/uL (4.8-10.8)
[2020-05-20 08:04] LABS: Albumin Globulin Ratio 0.8 (0.9-2); Albumin Level 2.8 gm/dl (3.4-5.0); BUN Creatinine Ratio 9.1 (10-20); Bilirubin,Total 0.4 mg/dl (0.2-1); Calcium 8.3 mg/dl (8.5-10.1); Creatinine Clr Calc Pharmacy 141.6 ml/min; Est GFR (African American) 122.3; Est GFR (Non-African American) 105.5; Globulin 3.5 gm/dl (2.5-4.0); Potassium 3.7 mmol/L (3.5-5.1); Total Protein 6.3 gm/dl (6.4-8.2)
[2020-05-20] MEDS ORDERED: INSULIN GLARGINE SOLOSTAR 100 UNITS/ML 3 ML PEN SQ SCH (09:00)
[2020-05-20] MEDS: ENOXAPARIN INJ 60 MG/0.6 ML SYR SQ SCH (09:05)
[2020-05-20] MEDS: LIDOCAINE 5% 1 PATCH TD SCH (09:06)
[2020-05-20] MEDS: AMOXICILLIN/CLAVULANATE 875 MG TAB PO SCH ×2 (09:08→20:08)
[2020-05-20] MEDS: GABAPENTIN 600 MG TAB PO SCH ×3 (09:09→20:07)
[2020-05-20] MEDS: DOXYCYCLINE HYCLATE 100 MG CAP PO SCH ×2 (09:09→20:07)
--- NOTE | 2020-05-20 09:25 | Pharmacy Report ---
Glycemic Control Consultation - Date of Service May 20, 2020 - Scope Scope: Glycemic Pharmacist consulted for glycemic control and to write orders per [facility] inpatient glycemic control protocol. - Objective Weight: 106.3 kg Accuchecks BSG (last 24hrs): 05/19/20 05/19/20 05/19/20 19:05 20:59 22:06 Glucose 440 H* POC Glucose 470 H* 511 H* 05/19/20 05/20/20 05/20/20 22:47 00:28 03:02 Glucose POC Glucose 553 H* 372 H* 305 H* 05/20/20 05/20/20 05/20/20 04:59 07:15 07:33 Glucose 297 H POC Glucose 261 H 286 H Laboratory Data (last 24hrs): 05/19/20 05/20/20 19:05 07:15 Potassium 3.5 3.7 Carbon Dioxide 22 23 Anion Gap 9.0 6.0 Creatinine 0.83 0.60 Est Cr Clr Drug Dosing 96.7 141.6 Beta-Hydroxybutyric Acd 10.10 H - Recent Pertinent Medications Outpatient Anti-diabetic Regimen: * Lantus 32 units BID, novolog, trulicity * A1c = 12.8 % 05/15/20 Risk Factors for Insulin Resistance: * Diet: yes - Assessment & Plan Assessment & Plan: ASSESSMENT: * 49 year old admitted with hyperglycemia. No anion gap noted. Given multiple IV pushes of insulin per MD yesterday to aide in BSG control. PMHx significant for liver cirrhosis, htn, obesity. Per MD notes, last 2-3 days increasing hyperglycemia * Fasting BSG this AM 286 mg/dL - plan to continue Lantus 32 units this AM and add novolog scale. Plan to add Lantus scale for HS PLAN FOR INPATIENT GLYCEMIC CONTROL: * Basal insulin * Lantus 32 units this AM * Lantus 32 or 38 units at HS based upon BSG * Bolus insulin * NovoLog per scale ACHS or Q6hrs while NPO * Goal Range: Low 110 mg/dL - High 140 mg/dL * Correction Factor: 12 mg/dL/unit * Nutritional / Prandial insulin per carb ratio of 1 unit per 4 grams CHO consumed * Please note that the plan above was derived based on current level of insulin resistance and hospital stress. These recommendations are appropriate for inpatient admission only. Plan of care upon discharge will need to be reassessed to avoid potential outpatient hypo/hyperglycemia. Thank you.
[2020-05-20] MEDS: ONDANSETRON INJ 2 MG/ML 2 ML VIAL IV PRN ×2 (12:42→21:24)
--- NOTE | 2020-05-20 17:43 | Family Medicine Progress Note ---
Date of Service May 20, 2020 Assessment & Plan (1) Hyperglycemia: Type II diabetes, uncontrolled on insulin - glycemic consultation appreciated, continue titration to goal glucose of 120s - dietary counseling provided at bedside and encouraged patient to eat as she would at home to improve adjustment - A1c has worsened from previous - d/c IVF in AM with continued improvement of hyperglyemia Acute on chronic right shoulder pain - likely RC tendonitis - would definitely benefit from PT in outpatient setting - continue NSAID for pain control - cyclobenzaprine for spasm Cellulitis - treated through previous ED evaluation with augmentin and doxycycline and improving, continue PO regimen h/o dental abscess s/p multiple extraction - has follow up with Dr. Rios on Tuesday this week - continue pain control for residual pain/inflammation at home dose of 5mg TID PRN, to step down on discharge through PCP office Alkaline phosphatase elevation - chronic, stable Present on Admission?: Yes (2) Pain in right shoulder: (3) Opioid abuse: (4) Dental abscess: Admission and Anticipated Discharge Date Admission Date: May 19, 2020 Subjective Patient seen and examined at bedside. Resting comfortably complaining of persistent, somewhat controlled right shoulder pain which is chronic for her and has worsened since ?incident with ambulating her dog remotely. Improved with lidocaine patch on the tricep. Otherwise resting comfortably in bed, much less anxious. Review of Systems Constitutional: no fever, no chills and no sweats Eyes: no eye pain, no photophobia and no worsening vision Respiratory: no cough, no dyspnea and no wheezing Cardiovascular: + edema; no chest pain and no palpitations Gastrointestinal: no abdominal pain, no nausea, no vomiting, no constipation and no diarrhea/loose stools Musculoskeletal: + joint pain and + myalgia Integumentary: no rash and no lesions Neurologic: no numbness and no radiating pain Physical Exam Constitutional: WD/WN, vitals as above well developed and + obese Eyes: PERRL, conjunctivae normal, anicteric sclerae Respiratory: normal respiratory effort, lungs clear to auscultation Cardiovascular: RRR, no murmur, no edema Gastrointestinal (Abdomen): normal bowel sounds, soft, nontender, no hepatosplenomegaly Musculoskeletal: TTP over the right supraspinatus with +ve empty can in the setting of chronic RC tendonitis Skin: no rashes, warm and dry Neurologic: PERRL, EOMI, accommodation nl, no face palsy, no dysarthria Psychiatric: A+Ox3, euthymic affect Speech: normal rate/rhythm/volume of speech Results & Data ([facility]) Vital Signs (Past 12 Hours) Vital Signs Temp Pulse Pulse Resp BP Pulse Ox 05/20/20 16:00 75 05/20/20 15:06 37.0 C 65 18 105/67 94 05/20/20 11:09 36.5 C 65 18 114/76 96 05/20/20 09:43 65 14 98 05/20/20 07:15 86 05/20/20 07:12 36.6 C 83 18 107/70 93 05/20/20 06:30 78 (1) Pain in right shoulder Chronicity: acute Qualified Code(s): M25.511 - Pain in right shoulder
[2020-05-20] MEDS: FLUTICASONE/VILANTEROL 100/25MCG 14 PUFFS/INHALER INH SCH (19:37)
[2020-05-20] MEDS: INSULIN GLARGINE SOLOSTAR 100 UNITS/ML 3 ML PEN SQ SCH (20:07)
--- NOTE | 2020-05-20 20:50 | Billing Data ---
Date of Service May 20, 2020 Coding Level of Care Code 14734 Initial Inpt Care Lvl 3
[2020-05-21] MEDS: NSS + 20MEQ KCL 20 MEQ/1,000 ML BAG IV SCH ×2 (01:12→12:39)
[2020-05-21] MEDS: INSULIN ASPART 100 UNITS/ML 3 ML PEN SC SCH ×3 (03:50→12:40)
[2020-05-21 07:12] VITALS: O2SAT 97
[2020-05-21] MEDS: OXYCODONE HCL IR 5 MG TAB (IMMEDIATE RELEASE) PO PRN (07:58)
[2020-05-21] MEDS: ONDANSETRON INJ 2 MG/ML 2 ML VIAL IV PRN (07:59)
[2020-05-21] MEDS: DOXYCYCLINE HYCLATE 100 MG CAP PO SCH (07:59)
[2020-05-21] MEDS: GABAPENTIN 600 MG TAB PO SCH ×2 (07:59→14:35)
[2020-05-21] MEDS: LIDOCAINE 5% 1 PATCH TD SCH (08:00)
[2020-05-21] MEDS: AMOXICILLIN/CLAVULANATE 875 MG TAB PO SCH (08:00)
[2020-05-21] MEDS: INSULIN GLARGINE SOLOSTAR 100 UNITS/ML 3 ML PEN SQ SCH (08:02)
[2020-05-21] MEDS: FLUTICASONE/VILANTEROL 100/25MCG 14 PUFFS/INHALER INH SCH (08:03)
[2020-05-21] MEDS: ENOXAPARIN INJ 60 MG/0.6 ML SYR SQ SCH (08:06)
[2020-05-21 11:15] VITALS: TEMP 97.7
[2020-05-21 11:19] VITALS: BP 105/71; PULSE 86
--- NOTE | 2020-05-21 17:38 | Discharge Summary ---
Date of Service May 21, 2020 Admission HPI Per Admitting Provider Elza is a 49-year-old female with a complex past medical history including uncontrolled type 2 diabetes mellitus on insulin, liver cirrhosis, chronic shoulder knee and hip pain, history of opioid abuse, hypertension, and obesity who presents with 2 to 3 days of persistent increasing hyperglycemia. Elza reports she has had trouble controlling her blood sugars over the past few months, but in the last day her blood sugars have risen to the 400s and even taking her Lantus and sliding scale aspart have not come down. She endorses polyuria without dysuria. Endorses some blurry vision in the last day. Endorse s fatigue but denies lightheadedness, dizziness, chest pain, chest pressure, lower extremity swelling. She endorses some flank pain. She endorses chronic baseline abdominal pain due to a hernia which has not changed recently. Denies nausea/vomiting at time of assessment. Endorses neuropathy, but overall has intact sensation and denies recent ulcerations of her feet. Denies new skin infection, although notes she has had some boils as previously noted. Denies dietary indiscretion prior to admission, reports she has not eaten in several hours. Blood sugar continued to climb following administration of subcu regular insulin in the ED, and she is aware that she is being admitted for hyperglycemic management. Medical history: Reviewed Medications: Reviewed Allergies: Reviewed Surgical history: Reviewed Social: Denies tobacco, alcohol, and recreational drug use. She lives at home, has a 13-year-old child who is currently staying with her ex- who has custody 50% of the time. CODE STATUS: Full code Admission Exam (Per Admitting) Constitutional WD/WN, vitals as above well developed and + obese Eyes PERRL, conjunctivae normal, anicteric sclerae Respiratory normal respiratory effort, lungs clear to auscultation Cardiovascular RRR, no murmur, no edema Gastrointestinal (Abdomen) normal bowel sounds, soft, nontender, no hepatosplenomegaly Skin no rashes, warm and dry Neurologic PERRL, EOMI, accommodation nl, no face palsy, no dysarthria Psychiatric A+Ox3, euthymic affect Speech: normal rate/rhythm/volume of speech Discharge Data Consultations 05/19/20 22:17 ED Decision to Admit Stat Hospital Course (1) Hyperglycemia: Patient was admitted for hyperglycemia which did not improve with IVF and insulin administration which was purportedly caused by deviation from diet initially following oral surgery and then with decreased POI 2/2 patient concern regarding hyperglycemia. Her presenting symptoms of right shoulder pain and LLE swelling have been chronic, and were improved with topical and oral therapy equivalent to the patient's outpatient regimen. Glycemic control was achieved initially with IV insulin R and then transitioned to basal bolus at essentially home regimen with good response. Type II diabetes, uncontrolled on insulin - dietary counseling provided at bedside and encouraged patient to eat as she would at home to improve adjustment, documentation for support provided - A1c has worsened from previous, q3 month checks - glargine 32U qAM and 32-38 units qPM with ISS coverage as noted - STRONGLY encouraged to support POI and insulin use to control hyperglycemia and to take insulin at reduced level should POI decrease (contact PCP for questions) Acute on chronic right shoulder pain - likely RC tendonitis - would definitely benefit from PT in outpatient setting - continue NSAID for pain control - cyclobenzaprine for spasm Cellulitis - treated through previous ED evaluation with augmentin and doxycycline and improving, continue PO regimen to complete course h/o dental abscess s/p multiple extraction - has follow up with Dr. Rios on Tuesday this week - continue pain control for residual pain/inflammation at home dose of 5mg TID PRN, to step down on discharge through PCP office Alkaline phosphatase elevation - chronic, stable
== END 2020-05-21 15:14 | disposition home or self-care (01) ==
LOC: 2N 18:01 → ED 18:01 → SUATTDRO 23:18 → 2N 05-20 00:04

== ENCOUNTER 2020-11-12 14:48 | Observation (INO) ==
[2020-11-12] MEDS ORDERED: SODIUM CHLORIDE 0.9% 1000ML 1,000 ML IV SCH (15:15)
[2020-11-12 15:32] LABS: Basophils # (auto) 0.02 K/uL (0-0.2); Basophils % (auto) 0.3 %; Eosinophils # (auto) 0.12 K/uL (0-0.5); Eosinophils % (auto) 1.6 %; Hematocrit (blood only) 44.1 % (37-47); Hemoglobin 15.7 g/dL (12.0-16.0); Immature Granulocytes # (auto) 0.01 K/uL (0.00-0.02); Immature Granulocytes % (auto) 0.1 %; Lymphocytes # (auto) 2.75 K/uL (1.2-3.4); Lymphocytes % (auto) 37.6 %; Mean Corpuscular Hemoglobin 32.6 pg (25-34); Mean Corpuscular Hgb Conc 35.6 g/dL (32-36); Mean Corpuscular Volume 91.7 fL (80-100); Mean Platelet Volume 11.4 fL (7.4-10.4); Monocytes # (auto) 0.38 K/uL (0.11-0.59); Monocytes % (auto) 5.2 %; Neutrophils # (auto) 4.03 K/uL (1.4-6.5); Neutrophils % (auto) 55.2 %; Platelet Count 152 K/uL (130-400); RDW Coefficient of Variation 13.9 % (11.5-14.5); RDW Standard Deviation 46.6 fL (36.4-46.3); Red Blood Count 4.81 M/uL (4.2-5.4); White Blood Count 7.31 K/uL (4.8-10.8)
[2020-11-12 15:40] LABS: iSTAT Creatinine 0.5 mg/dl (0.6-1.3); iSTAT Ionized Calcium 1.2 mmol/l (1.12-1.32); iSTAT Potassium 3.5 mmol/L (3.3-5.0)
[2020-11-12] MEDS ORDERED: OPTIRAY 320 125ml IV ONE (15:40)
[2020-11-12 15:44] LABS: INR 1.1 (0.9-1.1); Partial Thromboplastin Time 25.8 Seconds (21.0-31.0); Prothrombin Time 11.2 Seconds (9.0-12.0)
--- NOTE | 2020-11-12 15:51 | CT Scan Report ---
CT SCAN OF THE BRAIN WITHOUT IV CONTRAST CLINICAL HISTORY: Left-sided weakness. Headache. COMPARISON STUDY: CT of the brain dated 10/28/2020. TECHNIQUE: Unenhanced axial CT scan of the brain is performed from the vertex to the skull base. A d ose lowering technique was utilized adhering to the principles of ALARA. CT DOSE: 1080.51 mGy.cm FINDINGS: Brain parenchyma: The brain parenchyma is normal in appearance. There is no hemorrhage, mass effect, or evidence of acute territorial ischemia by CT criteria. Brower-white matter differentiation is preser eli. No extra-axial fluid collection is seen. Ventricles, sulci, cisterns: Normal in configuration. Intracranial vasculature: The visualized intracranial vasculature at the skull base is normal in appe arance. Calvarium: Unremarkable. Sinuses and mastoids: The visualized paranasal sinuses are clear. The mastoid air cells are well pneu matized. Orbits: The bony orbits are grossly intact. IMPRESSION: There is no hemorrhage, mass effect, or evidence of acute territorial ischemia by CT augusto coronel. ACT 112: Negative or not required by law. Electronically signed by: Kumar Caldwell M.D. 11/12/2020 3:47 PM
--- NOTE | 2020-11-12 15:59 | CT Scan Report ---
NECK CTA HISTORY: left sided weakness TECHNIQUE: Multiaxial CT images of the neck were performed following the intravenous administration o f contrast to evaluate the major cervical vessels. Maximum intensity projection images were also obta ined. All measurements were calculated based on NASCET criteria. A dose lowering technique was utili zed adhering to the principles of ALARA. COMPARISON STUDY: None. FINDINGS: The aortic arch and proximal great vessels are widely patent. Motion artifact results in n ear nondiagnostic evaluation of the bilateral carotid bifurcations. However, there is no definite dalila nosis, occlusion, or dissection identified within the bilateral common carotid, internal carotid, or vertebral arteries. IMPRESSION: Motion artifact results in near nondiagnostic evaluation of bilateral carotid bifurcations. However, there is no definite stenosis, occlusion, or dissection identified within the carotid or vertebral ar teries. ACT 112: Negative or not required by law. Electronically signed by: Luis F Mixon M.D. 11/12/2020 3:57 PM
--- NOTE | 2020-11-12 16:02 | Emergency Department Note ---
Impression & Plan Acute left-sided weakness, Headache, Acute hyperglycemia ED Provider Note NAME: MARCIO FERNANDEZ AGE: 50 SEX: F : 1970 ARRIVES VIA: Ambulance INFORMANT: Patient, prehospital personnel ED PROVIDER(S): Ignacio Cunningham DO CHIEF COMPLAINT: Headache and weakness HPI: The patient is a 50-year-old female who presented to the emergency department for an evaluation of headache. The patient states that she had an acute onset of a headache 5 days ago. She states that she started having left- sided weakness over the last 5 days. She states that weakness is slowly gotten worse to the point where she cannot even hold anything with her left hand. She called her primary care physician today and was advised to call the ambulance an d come to the emergency department for stroke work-up. The patient has had similar symptoms in the past. Although she could not remember what the cause was she completely recovered. She does not take any blood thinners. She does have a history of insulin-dependent diabetes. She states her blood sugars have been pretty well controlled but prior to arrival she was noted to have an elevated blood sugar over 400. She denies having any dysuria or frequency. She has had no trauma. She is does state that the headache is moderate and goes into her neck. She denies having any fever cough or exposure to COVID-19. ROS: See above HPI for pertinent positives & negatives. A total of 10 systems reviewed and were otherwise negative. PAST MEDICAL HISTORY: See Below PAST SURGICAL HISTORY: See Below FAMILY HISTORY: See Below SOCIAL HISTORY: See Below HOME MEDICATIONS: See Below ALLERGIES: See Below VITALS: See Below PHYSICAL EXAMINATION: GENERAL: Patient is awake alert in no acute distress patient is resting comfortably and showing no signs of anxiety EYES: The conjunctivae are clear. The pupils are round and reactive. EARS, NOSE, MOUTH AND THROAT: The nose is without any evidence of any deformity. Mucous membranes are moist. Tongue is midline. NECK: The neck is nontender and supple. RESPIRATORY: Normal respiratory effort is noted there is no evidence of wheezing rhonchi or rales CARDIOVASCULAR: Regular rate and rhythm noted there no murmurs rubs or gallops normal S1 normal S2. GASTROINTESTINAL: The abdomen is soft. Abdomen is nontender. MUSCULOSKELETAL/EXTREMITIES: There is no evidence of gross deformity full range of motion is noted in the hips and shoulders. SKIN: There is no obvious evidence of any rash. There are no petechiae, pallor or cyanosis noted. NEUROLOGIC: Patient is awake alert and oriented x3. There is no facial droop noted. Thermal Molder strength was asymmetric with a slight diminished c wpf developer strength in the left upper extremity. The patient is able to hold the right leg off the bed for greater than 5 seconds. The left leg is slightly weaker and will fall to the bed at approximately 5 seconds. MEDICAL DECISION MAKING: The patient is a 50-year-old female who presented to the emergency department for weakness. The patient describes 5 days of headache and unilateral weakness. She states that she has had similar symptoms in the past. The patient did not meet criteria for stroke alert because of the symptom duration. She was not found to have any signs of large vessel occlusion. I discussed the patient's laboratory and radiographic studies with her. I also discussed her case with the on-call [facility] hospitalist group. She was treated with IV fluids and IV insulin for hyperglycemia. She was reevaluated multiple times. Triage Nursing notes reviewed. Prior medical records reviewed Vital Signs: reviewed and remarkable for hypotension. Differential diagnosis: Infection, dehydration, metabolic abnormality, hypo/hyperglycemia, electrolyte disturbance, anemia, hypoxia, cardiac sources, intracerebral event, toxicologic, neurologic, as well as other pathologies. ER treatment provided: See below Diagnostics interpreted by me: ECG: EKG was obtained in the emergency department. My interpretation is normal sinus rhythm at 95 bpm. There was no ectopy. There was no acute ST segment abnormalities noted. This was compared to a tracing from October 282020. No significant changes were noted. Cardiac Monitoring: An order was placed for continuous cardiac monitoring. The monitor shows a rate of 89 bpm with sinus rhythm. Laboratory studies: As stated above and show below. Imaging studies: See below Consultation(s): 194: I discussed this case with Dr. Ramirez. He will evaluate the patient in the emergency department. Past Med/Surg History Medical History Abdominal pain Anxiety Brain cyst Chest pain Chronic low back pain with left-sided sciatica Chronic obstructive pulmonary disease Dental abscess Depression Emphysema of lung Hx of blood clots Hypertension Insulin dependent diabetes mellitus Lightheadedness Obesity Opioid abuse Pulmonary embolism Reports was anticoagulation x 60 days, not on chronic anticoagulation Syncope Thrombocytopenia Tinea corporis Uncontrolled type 2 diabetes mellitus Surgical History History of laparoscopic cholecystectomy Hx of oral surgery (02/15/20) Acute right submandibular, submental space infection with floor of mouth infection caused by infected lower teeth. Dr. Rios 02/15/20 S/P dilation and curettage S/P laparoscopic hernia repair S/P laparoscopic procedure ovarian cyst surgery Family History Mother , 73 Heart disease Cancer Father Skin cancer Brother No problems noted. Sister No problems noted. Grandmother (Maternal) , 48 Heart disease T2DM (type 2 diabetes mellitus) Grandmother (Paternal) , 83 Heart disease Kidney disease Uncle T2DM (type 2 diabetes mellitus) Other Diabetes Obesity Denies family history of Ovarian cancer Breast cancer Colorectal cancer Uterine cancer Social History Smoking Status: Current every day smoker Tobacco Type: Cigarettes Cigarettes Per Day: 5; Second Hand Exposure: Yes; Hx Alcohol Use: No Hx Substance Use: Yes Last Used Substance: Just Prior to Arrival Preferred Language: French Communication Ability: Effective Visual Impairment: No Limitations Hearing Ability: Normal Inseam Trimmer Required: No Beliefs That Will Affect Care: None marital status: Current Living Situation: Family Current Living Situation Comment: with son current occupational status: unemployed How many Children do You have: 1 Feels Safe at Home: Yes Assistive Devices: Glasses Allergies Allergies Allergy/AdvReac Type Severity Reaction Status Date / Time cephalexin AdvReac Severe Vomiting Verified 11/12/20 16:32 acetaminophen AdvReac Unknown Other Verified 11/12/20 16:32 levofloxacin [From Levaquin] AdvReac Unknown Vomiting Verified 11/12/20 16:32 Home Meds Home Medications Medication Instructions Recorded Confirmed cyclobenzaprine 10 mg PO BID PRN #0 11/18/17 11/12/20 gabapentin 1,200 mg PO TID #0 tab 11/18/17 11/12/20 albuterol sulfate [Ventolin HFA] 2 puff INHALATION Q4H PRN #0 02/10/18 11/12/20 diclofenac sodium [Voltaren] 4 g TOPICAL QID PRN 01/05/19 11/12/20 ibuprofen 800 mg PO TID PRN 10/24/19 11/12/20 promethazine 25 mg PO Q6H PRN 10/24/19 11/12/20 Trulicity 1.5 mg SUBCUT WK 05/19/20 11/12/20 fluticasone propion-salmeterol 2 inh INHALATION BID 08/21/20 11/12/20 insulin aspart U-100 [Novolog 12 unit SC ACHS 08/21/20 11/12/20 Flexpen U-100 Insulin] montelukast 10 mg tablet 10 mg PO QPM 09/01/20 11/12/20 aspirin 81 mg PO QAM 10/28/20 11/12/20 Previous Rx's Medication Instructions Recorded oxycodone-acetaminophen 10 mg-325 1 tab PO Q6H PRN #20 tab 02/11/20 mg tablet Lantus Solostar U-100 Insulin 40 unit SUBCUT AMPM #0 ml 10/30/20 Results & Data (ED) Vital Signs Vital Signs - 24 hr 11/12/20 14:58 11/12/20 15:00 11/12/20 15:25 Temperature 36.6 C Temperature Source Oral Pulse Rate 93 H 95 H Respiratory Rate 18 16 Respiratory Effort / Characteristics Non-Labored Spontaneous Respiratory Depth Normal Respiratory Pattern Regular Blood Pressure 108/77 106/70 Blood Pressure Mean 87 82 Blood Pressure Position Sitting Pulse Oximetry 100 100 100 Oxygen Delivery Method Room Air Room Air Sepsis Recent Fever Within 48 Hours No Sepsis New/Unexplained Change in Mental Status N/A Sepsis Action Taken by Nursing No Action Required 11/12/20 15:30 11/12/20 15:48 11/12/20 17:30 Temperature Temperature Source Pulse Rate 94 H 92 H 81 Respiratory Rate 17 13 15 Respiratory Effort / Characteristics Respiratory Depth Respiratory Pattern Blood Pressure 103/61 132/84 110/73 Blood Pressure Mean 75 100 85 Blood Pressure Position Pulse Oximetry 100 100 97 Oxygen Delivery Method Sepsis Recent Fever Within 48 Hours Sepsis New/Unexplained Change in Mental Status Sepsis Action Taken by Nursing 11/12/20 18:00 11/12/20 18:30 Temperature Temperature Source Pulse Rate 79 83 Respiratory Rate 16 19 Respiratory Effort / Characteristics Respiratory Depth Respiratory Pattern Blood Pressure 108/70 94/66 L Blood Pressure Mean 82 75 Blood Pressure Position Pulse Oximetry 98 95 Oxygen Delivery Method Room Air Room Air Sepsis Recent Fever Within 48 Hours Sepsis New/Unexplained Change in Mental Status Sepsis Action Taken by Mcfp Medications Current Medication List: was personally reviewed by me Laboratory Data Attestation: I reviewed the patient's lab results. Result diagrams: 11/12/20 15:20 11/12/20 15:20 Lab Results 11/12/20 11/12/20 11/12/20 Range/Units 15:08 15:20 15:20 WBC 7.31 (4.8-10.8) K/uL RBC 4.81 (4.2-5.4) M/uL Hgb 15.7 (12.0-16.0) g/dL POC Hgb (12.0-16.0) g/dl Hct 44.1 (37-47) % POC Hct (37-47) % MCV 91.7 (80-100) fL MCH 32.6 (25-34) pg MCHC 35.6 (32-36) g/dL RDW Std Deviation 46.6 H (36.4-46.3) fL RDW Coeff of Kelli 13.9 (11.5-14.5) % Plt Count 152 (130-400) K/uL MPV 11.4 H (7.4-10.4) fL Immature Gran % (Auto) 0.1 % Neut % (Auto) 55.2 % Lymph % (Auto) 37.6 % [place] % (Auto) 5.2 % Eos % (Auto) 1.6 % Baso % (Auto) 0.3 % Neut # (Auto) 4.03 (1.4-6.5) K/uL Lymph # (Auto) 2.75 (1.2-3.4) K/uL [place] # (Auto) 0.38 (0.11-0.59) K/uL Eos # (Auto) 0.12 (0-0.5) K/uL Baso # (Auto) 0.02 (0-0.2) K/uL Immature Gran # (Auto) 0.01 (0.00-0.02) K/uL PT 11.2 (9.0-12.0) Seconds INR 1.1 (0.9-1.1) APTT 25.8 (21.0-31.0) Seconds PTT Ratio 1.0 POC Sodium (135-144) mmol/L Sodium (136-145) mmol/L POC Potassium (3.3-5.0) mmol/L Potassium (3.5-5.1) mmol/L POC Chloride (101-112) mmol/L Chloride (98-107) mmol/L Carbon Dioxide (21-32) mmol/L POC Total CO2 (24-31) mmol/L Anion Gap (3-11) POC Anion Gap (16-25) mmol/L POC BUN (7-18) mg/dl BUN (7-18) mg/dl Creatinine (0.6-1.2) mg/dl POC Creatinine (0.6-1.3) mg/dl Est Cr Clr Drug Dosing ml/min Est GFR ( Amer) Est GFR (Non-Af Amer) BUN/Creatinine Ratio (10-20) Glucose (70-99) mg/dl POC Glucose 480 H* (70-99) mg/dl POC Glucose (other) (70-99) mg/dl Calcium (8.5-10.1) mg/dl POC Ioniz Calcium Joselyn (1.12-1.32) mmol/l Magnesium (1.8-2.4) mg/dl Total Bilirubin (0.2-1) mg/dl AST (15-37) U/L ALT (12-78) U/L Alkaline Phosphatase (45-117) U/L Troponin I (0-0.045) ng/ml Total Protein (6.4-8.2) gm/dl Albumin (3.4-5.0) gm/dl Globulin (2.5-4.0) gm/dl Albumin/Globulin Ratio (0.9-2) Beta-Hydroxybutyric Acd (0.2-2.81) mg/dl TSH (0.300-4.500) uIu/ml Urine Color Urine Appearance (Clear) Urine pH (4.5-7.5) Ur Specific Byram (1.000-1.030) Urine Protein (Negative) Urine Glucose (UA) (Negative) Urine Ketones (Negative) Urine Blood (Negative) Urine Nitrite (Negative) Urine Bilirubin (Negative) Urine Urobilinogen (Negative) Ur Leukocyte Esterase (Negative) Urine WBC (Auto) (0-5) /hpf Urine RBC (Auto) (0-4) /hpf U Hyaline Cast (Auto) (0-5) /lpf U Epithel Cells (Auto) (0-5) /lpf Urine Bacteria (Auto) (Negative) 11/12/20 11/12/20 11/12/20 Range/Units 15:20 15:27 17:28 WBC (4.8-10.8) K/uL RBC (4.2-5.4) M/uL Hgb (12.0-16.0) g/dL POC Hgb 16.0 (12.0-16.0) g/dl Hct (37-47) % POC Hct 47 (37-47) % MCV (80-100) fL MCH (25-34) pg MCHC (32-36) g/dL RDW Std Deviation (36.4-46.3) fL RDW Coeff of Kelli (11.5-14.5) % Plt Count (130-400) K/uL MPV (7.4-10.4) fL Immature Gran % (Auto) % Neut % (Auto) % Lymph % (Auto) % [place] % (Auto) % Eos % (Auto) % Baso % (Auto) % Neut # (Auto) (1.4-6.5) K/uL Lymph # (Auto) (1.2-3.4) K/uL [place] # (Auto) (0.11-0.59) K/uL Eos # (Auto) (0-0.5) K/uL Baso # (Auto) (0-0.2) K/uL Immature Gran # (Auto) (0.00-0.02) K/uL PT (9.0-12.0) Seconds INR (0.9-1.1) APTT (21.0-31.0) Seconds PTT Ratio POC Sodium 135 (135-144) mmol/L Sodium 134 L (136-145) mmol/L POC Potassium 3.5 (3.3-5.0) mmol/L Potassium 3.5 (3.5-5.1) mmol/L POC Chloride 100 L (101-112) mmol/L Chloride 101 (98-107) mmol/L Carbon Dioxide 24 (21-32) mmol/L POC Total CO2 23 L (24-31) mmol/L Anion Gap 8.0 (3-11) POC Anion Gap 17.0 (16-25) mmol/L POC BUN 6 L (7-18) mg/dl BUN 6 L (7-18) mg/dl Creatinine 1.00 (0.6-1.2) mg/dl POC Creatinine 0.5 L (0.6-1.3) mg/dl Est Cr Clr Drug Dosing 75.9 ml/min Est GFR ( Amer) 75.0 Est GFR (Non-Af Amer) 64.7 BUN/Creatinine Ratio 6.3 L (10-20) Glucose 447 H* (70-99) mg/dl POC Glucose 346 H* (70-99) mg/dl POC Glucose (other) 467 H* (70-99) mg/dl Calcium 10.0 (8.5-10.1) mg/dl POC Ioniz Calcium Joselyn 1.20 (1.12-1.32) mmol/l Magnesium 1.8 (1.8-2.4) mg/dl Total Bilirubin 0.5 (0.2-1) mg/dl AST 17 (15-37) U/L ALT 29 (12-78) U/L Alkaline Phosphatase 164 H (45-117) U/L Troponin I < 0.015 (0-0.045) ng/ml Total Protein 8.5 H (6.4-8.2) gm/dl Albumin 4.0 (3.4-5.0) gm/dl Globulin 4.5 H (2.5-4.0) gm/dl Albumin/Globulin Ratio 0.9 (0.9-2) Beta-Hydroxybutyric Acd (0.2-2.81) mg/dl TSH 1.410 (0.300-4.500) uIu/ml Urine Color Urine Appearance (Clear) Urine pH (4.5-7.5) Ur Specific Byram (1.000-1.030) Urine Protein (Negative) Urine Glucose (UA) (Negative) Urine Ketones (Negative) Urine Blood (Negative) Urine Nitrite (Negative) Urine Bilirubin (Negative) Urine Urobilinogen (Negative) Ur Leukocyte Esterase (Negative) Urine WBC (Auto) (0-5) /hpf Urine RBC (Auto) (0-4) /hpf U Hyaline Cast (Auto) (0-5) /lpf U Epithel Cells (Auto) (0-5) /lpf Urine Bacteria (Auto) (Negative) 11/12/20 11/12/20 Range/Units 17:38 19:13 WBC (4.8-10.8) K/uL RBC (4.2-5.4) M/uL Hgb (12.0-16.0) g/dL POC Hgb (12.0-16.0) g/dl Hct (37-47) % POC Hct (37-47) % MCV (80-100) fL MCH (25-34) pg MCHC (32-36) g/dL RDW Std Deviation (36.4-46.3) fL RDW Coeff of Kelli (11.5-14.5) % Plt Count (130-400) K/uL MPV (7.4-10.4) fL Immature Gran % (Auto) % Neut % (Auto) % Lymph % (Auto) % [place] % (Auto) % Eos % (Auto) % Baso % (Auto) % Neut # (Auto) (1.4-6.5) K/uL Lymph # (Auto) (1.2-3.4) K/uL [place] # (Auto) (0.11-0.59) K/uL Eos # (Auto) (0-0.5) K/uL Baso # (Auto) (0-0.2) K/uL Immature Gran # (Auto) (0.00-0.02) K/uL PT (9.0-12.0) Seconds INR (0.9-1.1) APTT (21.0-31.0) Seconds PTT Ratio POC Sodium (135-144) mmol/L Sodium (136-145) mmol/L POC Potassium (3.3-5.0) mmol/L Potassium (3.5-5.1) mmol/L POC Chloride (101-112) mmol/L Chloride (98-107) mmol/L Carbon Dioxide (21-32) mmol/L POC Total CO2 (24-31) mmol/L Anion Gap (3-11) POC Anion Gap (16-25) mmol/L POC BUN (7-18) mg/dl BUN (7-18) mg/dl Creatinine (0.6-1.2) mg/dl POC Creatinine (0.6-1.3) mg/dl Est Cr Clr Drug Dosing ml/min Est GFR ( Amer) Est GFR (Non-Af Amer) BUN/Creatinine Ratio (10-20) Glucose (70-99) mg/dl POC Glucose 218 H (70-99) mg/dl POC Glucose (other) (70-99) mg/dl Calcium (8.5-10.1) mg/dl POC Ioniz Calcium Joselyn (1.12-1.32) mmol/l Magnesium (1.8-2.4) mg/dl Total Bilirubin (0.2-1) mg/dl AST (15-37) U/L ALT (12-78) U/L Alkaline Phosphatase (45-117) U/L Troponin I (0-0.045) ng/ml Total Protein (6.4-8.2) gm/dl Albumin (3.4-5.0) gm/dl Globulin (2.5-4.0) gm/dl Albumin/Globulin Ratio (0.9-2) Beta-Hydroxybutyric Acd (0.2-2.81) mg/dl TSH (0.300-4.500) uIu/ml Urine Color Yellow Urine Appearance Clear (Clear) Urine pH 5.0 (4.5-7.5) Ur Specific Byram > 1.045 H (1.000-1.030) Urine Protein 1+ H (Negative) Urine Glucose (UA) 3+ H (Negative) Urine Ketones Negative (Negative) Urine Blood Negative (Negative) Urine Nitrite Negative (Negative) Urine Bilirubin Negative (Negative) Urine Urobilinogen Negative (Negative) Ur Leukocyte Esterase Negative (Negative) Urine WBC (Auto) 1-5 (0-5) /hpf Urine RBC (Auto) 0-4 (0-4) /hpf U Hyaline Cast (Auto) 1-5 (0-5) /lpf U Epithel Cells (Auto) 10-20 H (0-5) /lpf Urine Bacteria (Auto) Negative (Negative) Administered Medications Discontinued Medications Sodium Chloride (Nss 1000ml) 1,000 mls @ 999 mls/hr IV .Q1H1M YEN Stop: 11/12/20 16:15 Last Infusion: 11/12/20 16:23 Dose: 0 mls/hr Documented by: [id number] Admin: 11/12/20 15:22 Dose: 999 mls/hr Documented by: [id number] Sodium Chloride (Nss 1000ml) 1,000 mls @ 999 mls/hr IV .Q1H1M ONE Stop: 11/12/20 17:35 Last Infusion: 11/12/20 17:40 Dose: 0 mls/hr Documented by: [id number] Admin: 11/12/20 16:39 Dose: 999 mls/hr Documented by: [id number] Insulin Human Regular (Novolin-R Insulin Per Unit Charge) 6 units IV NOW STA Stop: 11/12/20 17:46 Last Admin: 11/12/20 18:01 Dose: 6 units Documented by: [id number] Cosigned by: [id number] Ioversol (Optiray 320 125ml) 119 ml IV ONCE ONE Stop: 11/12/20 15:41 Last Admin: 11/12/20 15:43 Dose: 119 ml Documented by: [id number] Imaging Data Radiologist's Impression: Patient: MARCIO FERNANDEZ Date: 11/12/20MR#: [id number]: [address] Acct ID:[id number]: Date: 1970[facility] Zip: [place] [address]Iit: 50Location: EDSex: FRoom/Bed:Att Phy:Diagnosis: WEAKNESSPri Phy: Aiden Pérez, GHADAervclaire Date: 11/12/20Fa Phy:Interpreting Phy: Kumar Caldwell MDAdmit Phy: Ordering Phy: Ignacio Cunningham DO cc: ~ CT SCAN OF THE BRAIN WITHOUT IV CONTRAST CLINICAL HISTORY: Left-sided weakness. Headache. COMPARISON STUDY: CT of the brain dated 10/28/2020. TECHNIQUE: Unenhanced axial CT scan of the brain is performed from the vertex to the skull base. A dose lowering technique was utilized adhering to the principles of ALARA. CT DOSE: 1080.51 mGy.cm FINDINGS: Brain parenchyma: The brain parenchyma is normal in appearance. There is no hemorrhage, mass effect, or evidence of acute territorial ischemia by CT criteria. Brower-white matter differentiation is preserved. No extra-axial fluid collection is seen. Ventricles, sulci, cisterns: Normal in configuration. Intracranial vasculature: The visualized intracranial vasculature at the skull base is normal in appearance. Calvarium: Unremarkable. Sinuses and mastoids: The visualized paranasal sinuses are clear. The mastoid air cells are well pneumatized. Orbits: The bony orbits are grossly intact. IMPRESSION: There is no hemorrhage, mass effect, or evidence of acute ter ritorial ischemia by CT criteria. ACT 112: Negative or not required by law. Electronically signed by: Kumar Caldwell M.D. 11/12/2020 3:47 PM Dictated: 11/12/20 1545Transcribed: 11/12/20 1545 Patient: MARCIO FERNANDEZ Date: 11/12/20MR#: [id number]: 198 GUNNER[address]LAURIE [facility] ID:[id number]: Date: 1970City Zip: [place] [address]Ciw: 50Location: EDSex: FRoom/Bed:Att Phy:Diagnosis: WEAKNESSPri Phy: Aiden Pérez MDService Date: 11/12/20Fam Phy:Interp reting Phy: Luis F Mixon MDAdmit Phy: Ordering Phy: Ignacio Cunningham DO cc: ~ NECK CTA HISTORY: left sided weakness TECHNIQUE: Multiaxial CT images of the neck were performed following the intravenous administration of contrast to evaluate the major cervical vessels. Maximum intensity projection images were also obtained. All measurements were calculated based on NASCET criteria. A dose lowering technique was utilized adhering to the principles of ALARA. COMPARISON STUDY: None. FINDINGS: The aortic arch and proximal great vessels are widely patent. Motion artifact results in near nondiagnostic evaluation of the bilateral carotid bifurcations. However, there is no definite stenosis, occlusion, or dissection identified within the bilateral common carotid, internal carotid, or vertebral arteries. IMPRESSION: Motion artifact results in near nondiagnostic evaluation of bilateral carotid bifurcations. However, there is no definite stenosis, occlusion, or dissection identified within the carotid or vertebral arteries. ACT 112: Negative or not required by law. Electronically signed by: Luis F Mixon M.D. 11/12/2020 3:57 PM Dictated: 11/12/20 155Transcribed: 11/12/20 155 [facility], [id number] CT Scan Report Patient: MARCIO FERNANDEZ Date: 11/12/20#: [id number]: [id number] ROSA Acct ID:[id number]: Date: 1970City Zip: [place] [address]Jyr: 50Location: EDSex: FRoom/Bed:Att Phy:Diagnosis: WEAKNESSPri Phy: Aiden Pérez MDService Date: 11/12/20Fa Phy:Interpreting Phy: Kumar Caldwell MDAdmit Phy: Ordering Phy: Ignacio Cunningham DO cc: ~ CT ANGIOGRAM OF THE BRAIN CLINICAL HISTORY: Headache. Left-sided weakness. COMPARISON STUDY: Unenhanced CT of the brain performed concurrently on 11/12/2020. CT angiogram of the brain dated 10/28/2020. TECHNIQUE: Following the IV administration of 119 cc of Optiray 320, CT angiogram of the brain was performed from the skull base to the vertex. Images are reviewed in the axial, sagittal, and coronal planes. 3-D MIPS images are created and assessed. IV contrast was administered without complication. A dose lowering technique was utilized adhering to the principles of ALARA. FINDINGS: Brain parenchyma: The brain parenchyma is normal in appearance. There is no hemorrhage, mass effect, or evidence of acute territorial ischemia by CT criteria. There is no evidence of enhancing mass lesion on the angiogram phase images. No extra-axial fluid collection is seen. Brower-white matter differentiation is preserved. Ventricles, sulci, and cisterns: Normal in configuration. CT angiogram of the brain: The internal carotid arteries are patent, as are the anterior and middle cerebral arteries. There is mild narrowing of the cavernous carotid artery in the right seen on axial image #75. The right A1 segment is at retic. These findings are similar to previous. The vertebrobasilar system and posterior cerebral arteries are widely patent. The left vertebral artery is dominant. There is no aneurysm, high-grade stenosis, or focal vessel cutoff identified throughout the intracranial circulation. Dural sinuses: Clear as visualized. Orbits: The bony orbits are intact. The orbital contents are normal as visualize d. Sinuses and mastoids: The visualized paranasal sinuses are clear. The mastoid air cells are well pneumatized. Calvarium: Unremarkable. IMPRESSION: 1. There is no hemorrhage, mass effect, or evidence of acute territorial ischemia by CT criteria noting angiographic phase technique. 2. There is mild narrowing of the right cavernous carotid artery, unchanged from previous. This is of indeterminant significance. 3. Otherwise unremarkable CT angiogram of the brain, not significant change from 10/28/2020. ACT 112: Negative or not required by law. Electronically signed by: Kumar Caldwell M.D. 11/12/2020 4:03 PM Dictated: 11/12/20 1556Transcribed: 11/12/20 1556 Patient: MARCIO FERNANDEZ Date: 11/12/20MR#: [id number]: [id number] ROSA DAVISAcct ID:[id number]: Date: 1970[facility] Zip: [place] [address]Ldv: 50Location: EDSex: FRoom/Bed:Att Phy:Diagnosis: WEAKNESSPri Phy: Aiden Pérez, GHADAervice Date: 11/12/20Fa Phy:Interpreting Phy: Dani Cardona MDAdmit Phy: Ordering Phy: Ignacio Cunningham DO cc: ~ XR chest 1V portable CLINICAL HISTORY: weakness COMPARISON STUDY: Chest radiograph and chest CT October 28, 2020. FINDINGS: Patient is rotated. There is no pneumothorax or pleural effusion. Cardiac size is normal. There is no evidence for pulmonary edema. No consolidation is identified. IMPRESSION: 1. No acute cardiopulmonary findings. 2. Rotated study. ACT 112: Negative or not required by law. Electronically signed by: Dani Cardona M.D. 11/12/2020 4:19 PM Dictated: 11/12/20 1618Transcribed: 11/12/20 1618 Blood Pressure Blood Pressure Findings: Low blood pressure Discharge Plan Visit Data Chief Complaint: Weakness ED Provider: Ignacio Cunningham Discharge Problem: Acute left-sided weakness, Headache, Acute hyperglycemia Forms Stand Alone Forms: [place] Prescriptions Prescriptions: No Action cyclobenzaprine 10 mg Tablet 10 mg PO BID PRN (Reason: Muscle Spasm) Qty: 0 RF: 0 gabapentin 600 mg Tablet 1,200 mg PO TID Qty: 0 RF: 0 albuterol sulfate [Ventolin HFA] 90 mcg/actuation Hfa Aerosol Inhaler 2 puff INHALATION Q4H PRN (Reason: Shortness Of Breath Or Wheezing) Qty: 0 RF: 0 montelukast [Singulair] 10 mg tablet 10 mg PO QPM RF: 0 diclofenac sodium [Voltaren] 1 % gel 4 g topical QID PRN (Reason: Pain) RF: 0 Trulicity 1.5 mg/0.5 mL pen injector 1.5 mg SUBCUT WK RF: 0 fluticasone propion-salmeterol 232-14 mcg/actuation aerosol powdr breath activated 2 inh INHALATION BID RF: 0 insulin aspart U-100 [Novolog Flexpen U-100 Insulin] 100 unit/mL (3 mL) insulin pen 12 unit SC ACHS RF: 0 ibuprofen 800 mg tablet 800 mg PO TID PRN (Reason: Pain) RF: 0 promethazine 25 mg tablet 25 mg PO Q6H PRN (Reason: Nausea) RF: 0 aspirin 81 mg Tablet,Delayed Release (Dr/Ec) 81 mg PO QAM RF: 0 Lantus Solostar U-100 Insulin 100 unit/mL (3 mL) insulin pen 40 unit SUBCUT AMPM Qty: 0 RF: 0 Discharge Problem: Headache Qualifiers: Headache type: unspecified Headache chronicity pattern: unspecified pattern Intractability: not intractable Qualified Code(s): R51.9 - Headache, unspecified
--- NOTE | 2020-11-12 16:05 | CT Scan Report ---
CT ANGIOGRAM OF THE BRAIN CLINICAL HISTORY: Headache. Left-sided weakness. COMPARISON STUDY: Unenhanced CT of the brain performed concurrently on 11/12/2020. CT angiogram of the brain dated 10/28/2020. TECHNIQUE: Following the IV administration of 119 cc of Optiray 320, CT angiogram of the brain was pe rformed from the skull base to the vertex. Images are reviewed in the axial, sagittal, and coronal pl anes. 3-D MIPS images are created and assessed. IV contrast was administered without complication. A dose lowering technique was utilized adhering to the principles of ALARA. FINDINGS: Brain parenchyma: The brain parenchyma is normal in appearance. There is no hemorrhage, mass effect, or evidence of acute territorial ischemia by CT criteria. There is no evidence of enhancing mass lesi on on the angiogram phase images. No extra-axial fluid collection is seen. Brower-white matter differen tiation is preserved. Ventricles, sulci, and cisterns: Normal in configuration. CT angiogram of the brain: The internal carotid arteries are patent, as are the anterior and middle cerebral arteries. There is mild narrowing of the cavernous carotid artery in the right seen on axial image #75. The right A1 segment is atretic. These findings are similar to previous. The vertebrobasi lar system and posterior cerebral arteries are widely patent. The left vertebral artery is dominant. There is no aneurysm, high-grade stenosis, or focal vessel cutoff identified throughout the intracran ial circulation. Dural sinuses: Clear as visualized. Orbits: The bony orbits are intact. The orbital contents are normal as visualized. Sinuses and mastoids: The visualized paranasal sinuses are clear. The mastoid air cells are well pneu matized. Calvarium: Unremarkable. IMPRESSION: 1. There is no hemorrhage, mass effect, or evidence of acute territorial ischemia by CT criteria noti ng angiographic phase technique. 2. There is mild narrowing of the right cavernous carotid artery, unchanged from previous. This is of indeterminant significance. 3. Otherwise unremarkable CT angiogram of the brain, not significant change from 10/28/2020. ACT 112: Negative or not required by law. Electronically signed by: Kumar Caldwell M.D. 11/12/2020 4:03 PM
[2020-11-12 16:12] LABS: Alanine Aminotransferase 29 U/L (12-78); Albumin Globulin Ratio 0.9 (0.9-2); Alkaline Phosphatase 164 U/L (45-117); Aspartate Aminotransferase 17 U/L (15-37); BUN Creatinine Ratio 6.3 (10-20); Bilirubin,Total 0.5 mg/dl (0.2-1); Blood Urea Nitrogen 6 mg/dl (7-18); Carbon Dioxide 24 mmol/L (21-32); Chloride 101 mmol/L (98-107); Creatinine Clr Calc Pharmacy 75.9 ml/min; Est GFR (Non-African American) 64.7; Globulin 4.5 gm/dl (2.5-4.0); Glucose 447 mg/dl (70-99); Magnesium 1.8 mg/dl (1.8-2.4); Potassium 3.5 mmol/L (3.5-5.1); Sodium 134 mmol/L (136-145); Total Protein 8.5 gm/dl (6.4-8.2); Troponin I < 0.015 ng/ml (0-0.045)
--- NOTE | 2020-11-12 16:20 | XRay Report ---
XR chest 1V portable CLINICAL HISTORY: weakness COMPARISON STUDY: Chest radiograph and chest CT October 28, 2020. FINDINGS: Patient is rotated. There is no pneumothorax or pleural effusion. Cardiac size is normal. T here is no evidence for pulmonary edema. No consolidation is identified. IMPRESSION: 1. No acute cardiopulmonary findings. 2. Rotated study. ACT 112: Negative or not required by law. Electronically signed by: Dani Cardona M.D. 11/12/2020 4:19 PM
--- NOTE | 2020-11-12 16:21 | Electrocardiogram Report ---
Test Reason : Blood Pressure : / mmHG Vent. Rate : 095 BPM Atrial Rate : 095 BPM P-R Int : 178 ms QRS Dur : 090 ms QT Int : 372 ms P-R-T Axes : 030 -14 040 degrees QTc Int : 467 ms Normal sinus rhythm Cannot rule out Anterior infarct (cited on or before 25-AUG-2018) Abnormal ECG When compared with ECG of 28-OCT-2020 13:27, No significant change was found Confirmed by Ignacio Keys ([id number]) on 11/12/2020 4:20:31 PM Referred By: Confirmed By:Ignacio Keys
[2020-11-12] MEDS ORDERED: SODIUM CHLORIDE 0.9% 1000ML 1,000 ML IV ONE (16:35)
[2020-11-12] MEDS ORDERED: NovoLIN-R INSULIN PER UNIT CHARGE IV STA (17:45)
[2020-11-12 17:48] LABS: Appearance Urine Clear (Clear); Bilirubin Urine Negative (Negative); Blood Urine Negative (Negative); Color Urine Yellow; Glucose Urine UA 3+ (Negative); Ketones Urine Negative (Negative); Leukocyte Esterase Urine Negative (Negative); Nitrite Urine Negative (Negative); Protein Urine 1+ (Negative); Specific Gravity Urine > 1.045 (1.000-1.030); Urobilinogen Urine Negative (Negative)
[2020-11-12 18:06] LABS: Bacteria Urine Automated Negative (Negative); RBC Urine Automated 0-4 /hpf (0-4)
[2020-11-12] MEDS ORDERED: KETOROLAC TROMETHAMINE 15 MG/ML VIAL IV ONE (22:09)
--- NOTE | 2020-11-12 22:50 | History & Physical Report ---
Date of Service November 12, 2020 Assessment & Plan (1) Acute left-sided weakness: Left-sided weakness and headache of 5 days duration- Admit to medical surgical with telemetry to monitor for arrhythmia Patient had minimal decrease in strength upper and lower extremity on the left compared to the right of unknown duration CT head without acute process CTA head neck without acute process. MRI brain has been ordered Unclear if this is a metabolic issue versus CVA. Stroke with TPA order set Consult PT/OT/speech/neurology Present on Admission?: Yes (2) Headache: See above Present on Admission?: Yes (3) Insulin dependent diabetes mellitus: Glucose improved in the ED from 480 to 218 after administration of 6 units of regular insulin IV and 2 L normal saline. Continue Lantus insulin 40 units subcu twice daily. Hold Trulicity Place on Accu-Cheks before meals and at bedtime with NovoLog coverage per scale Present on Admission?: Yes (4) Acute hyperglycemia: See above Present on Admission?: Yes (5) Chronic obstructive pulmonary disease: Continue usual inhalers Present on Admission?: Yes (6) Liver cirrhosis: Follow liver tests Present on Admission?: Yes History of Present Illness Chief Complaint: The patient presents to the emergency department due to concerns regarding headache that began about 5 days ago, and then reports having some left sided weakness, reporting that she can barely hold anything in her left hand now. Primary Care Provider: Aneudy Pérez MD The patient is a 50-year-old female with a past medical history including chronic low back pain, left-sided sciatica, opioid abuse, COPD, periapical abscess with facial involvement, insulin-dependent diabetes mellitus, liver cirrhosis, UTI, morbid obesity, ambulatory dysfunction, and hypertension. She reports the symptoms that she presented with above, have happened in the past, requiring hospitalization, without cause being determined but did return ultimately to normal. She denies any recent trauma, has not had any recent change in dietary or exercise patterns. She denies any recent travels or sick exposures. She does not check her blood sugars on a regular basis at home. Glucose upon arrival to the ED was 480, and after receiving 6 units of regular insulin IV along with 2 L normal saline, her glucose decreased to 346 then to 218. Allergies Allergy/AdvReac Type Severity Reaction Status Date / Time cephalexin AdvReac Severe Vomiting Verified 11/12/20 16:32 acetaminophen AdvReac Unknown Other Verified 11/12/20 16:32 levofloxacin [From Levaquin] AdvReac Unknown Vomiting Verified 11/12/20 16:32 Home Medications Medication Instructions Recorded Confirmed Type cyclobenzaprine 10 mg PO BID PRN #0 11/18/17 11/12/20 History gabapentin 1,200 mg PO TID #0 tab 11/18/17 11/12/20 History albuterol sulfate [Ventolin HFA] 2 puff INHALATION Q4H PRN #0 02/10/18 11/12/20 History diclofenac sodium [Voltaren] 4 g TOPICAL QID PRN 01/05/19 11/12/20 History ibuprofen 800 mg PO TID PRN 10/24/19 11/12/20 History promethazine 25 mg PO Q6H PRN 10/24/19 11/12/20 History oxycodone-acetaminophen 10 mg-325 1 tab PO Q6H PRN #20 tab 02/11/20 Rx mg tablet Trulicity 1.5 mg SUBCUT WK 05/19/20 11/12/20 History fluticasone propion-salmeterol 2 inh INHALATION BID 08/21/20 11/12/20 History insulin aspart U-100 [Novolog 12 unit SC ACHS 08/21/20 11/12/20 History Flexpen U-100 Insulin] montelukast 10 mg tablet 10 mg PO QPM 09/01/20 11/12/20 History aspirin 81 mg PO QAM 10/28/20 11/12/20 History Lantus Solostar U-100 Insulin 40 unit SUBCUT AMPM #0 ml 10/30/20 11/12/20 Rx Past Med/Surg History Medical History Abdominal pain Anxiety Brain cyst Chest pain Chronic low back pain with left-sided sciatica Chronic obstructive pulmonary disease Dental abscess Depression Emphysema of lung Hx of blood clots Hypertension Insulin dependent diabetes mellitus Lightheadedness Obesity Opioid abuse Pulmonary embolism Reports was anticoagulation x 60 days, not on chronic anticoagulation Syncope Thrombocytopenia Tinea corporis Uncontrolled type 2 diabetes mellitus Surgical History History of laparoscopic cholecystectomy Hx of oral surgery (02/15/20) Acute right submandibular, submental space infection with floor of mouth infection caused by infected lower teeth. Dr. Rios 02/15/20 S/P dilation and curettage S/P laparoscopic hernia repair S/P laparoscopic procedure ovarian cyst surgery Family History Mother , 73 Heart disease Cancer Father Skin cancer Brother No problems noted. Sister No problems noted. Grandmother (Maternal) , 48 Heart disease T2DM (type 2 diabetes mellitus) Grandmother (Paternal) , 83 Heart disease Kidney disease Uncle T2DM (type 2 diabetes mellitus) Other Diabetes Obesity Denies family history of Ovarian cancer Breast cancer Colorectal cancer Uterine cancer Social History Smoking Status: Current every day smoker Tobacco Type: Cigarettes Cigarettes Per Day: 5; Second Hand Exposure: Yes; Hx Alcohol Use: No Hx Substance Use: Yes Last Used Substance: Just Prior to Arrival Preferred Language: German Communication Ability: Effective Visual Impairment: No Limitations Hearing Ability: Normal 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 Primary Care Sales Required: No Beliefs That Will Affect Care: None marital status: Current Living Situation: Family Current Living Situation Comment: son /2 the time current occupational status: unemployed How many Children do You have: 1 Feels Safe at Home: No Is there a partner from a previous relationship who is making you feel unsafe now?: No Assistive Devices: Glasses Review of Systems Review of Systems: The patient denies chest pain, palpitations, shortness of breath, dyspnea on exertion, cough, lower extremity swelling, sore throat, fevers, chills, sweats, nausea, vomiting, diarrhea , constipation, abdominal pain, pelvic pain, blood in urine or stool, dysuria, urinary frequency or urgency, memory loss, loss of consciousness, rash, abnormal bruising or bleeding, generalized arthralgias or myalgias, change in her chronic low back pain, or night sweats. The review of systems is otherwise negative other than for that already noted above, and at least 10 systems have been reviewed. Physical Exam Physical Exam: The patient is awake, alert and oriented 3, well developed and well nourished, normocephalic and atraumatic, lying in bed and in no acute distress. HEENT--PERRL, EOMI, mucous membranes and oropharynx normal. Neck--supple. No JVD. No bruits. Thyroid normal, trachea midline, no adenopathy. Heart--normal S1 and S2. No murmurs, rubs or gallops. Lungs--clear bilaterally, no respiratory distress, no accessory muscle use. Abdomen--normal bowel sounds and soft. Nontender. Nondistended. Obese. Extremities--no cyanosis or clubbing. No edema. Dermatologic--normal skin turgor, normal color, no abnormal lymph nodes, no rash. Neurologic--cranial nerves II through XII grossly intact. Rheumatologic--normal range of motion. Psychiatric--normal affect. Results & Data Results & Data ([facility]) Vital Signs (Past 12 Hours) Vital Signs Temp Pulse Resp BP Pulse Ox 11/12/20 21:31 70 16 95/71 L 98 11/12/20 20:41 76 16 93/78 L 98 11/12/20 20:00 78 18 118/67 96 11/12/20 19:30 83 19 101/72 94 11/12/20 19:00 83 20 95/62 L 94 11/12/20 18:30 83 19 94/66 L 95 11/12/20 18:00 79 16 108/70 98 11/12/20 17:30 81 15 110/73 97 11/12/20 15:48 92 H 13 132/84 100 11/12/20 15:30 94 H 17 103/61 100 11/12/20 15:25 100 11/12/20 15:00 95 H 16 106/70 100 11/12/20 14:58 97.9 F 93 H 18 108/77 100 Laboratory Results Laboratory Results WBC 7.31 K/uL (4.8-10.8) 11/12/20 15:20 RBC 4.81 M/uL (4.2-5.4) 11/12/20 15:20 Hgb 15.7 g/dL (12.0-16.0) 11/12/20 15:20 POC Hgb 16.0 g/dl (12.0-16.0) 11/12/20 15:27 Hct 44.1 % (37-47) 11/12/20 15:20 POC Hct 47 % (37-47) 11/12/20 15:27 MCV 91.7 fL (80-100) 11/12/20 15:20 MCH 32.6 pg (25-34) 11/12/20 15:20 MCHC 35.6 g/dL (32-36) 11/12/20 15:20 RDW Std Deviation 46.6 fL (36.4-46.3) H 11/12/20 15:20 RDW Coeff of Kelli 13.9 % (11.5-14.5) 11/12/20 15:20 Plt Count 152 K/uL (130-400) 11/12/20 15:20 MPV 11.4 fL (7.4-10.4) H 11/12/20 15:20 Immature Gran % (Auto) 0.1 % 11/12/20 15:20 Neut % (Auto) 55.2 % 11/12/20 15:20 Lymph % (Auto) 37.6 % 11/12/20 15:20 [place] % (Auto) 5.2 % 11/12/20 15:20 Eos % (Auto) 1.6 % 11/12/20 15:20 Baso % (Auto) 0.3 % 11/12/20 15:20 Neut # (Auto) 4.03 K/uL (1.4-6.5) 11/12/20 15:20 Lymph # (Auto) 2.75 K/uL (1.2-3.4) 11/12/20 15:20 [place] # (Auto) 0.38 K/uL (0.11-0.59) 11/12/20 15:20 Eos # (Auto) 0.12 K/uL (0-0.5) 11/12/20 15:20 Baso # (Auto) 0.02 K/uL (0-0.2) 11/12/20 15:20 Immature Gran # (Auto) 0.01 K/uL (0.00-0.02) 11/12/20 15:20 PT 11.2 Seconds (9.0-12.0) 11/12/20 15:20 INR 1.1 (0.9-1.1) 11/12/20 15:20 APTT 25.8 Seconds (21.0-31.0) 11/12/20 15:20 PTT Ratio 1.0 11/12/20 15:20 POC Sodium 135 mmol/L (135-144) 11/12/20 15:27 Sodium 134 mmol/L (136-145) L 11/12/20 15:20 POC Potassium 3.5 mmol/L (3.3-5.0) 11/12/20 15:27 Potassium 3.5 mmol/L (3.5-5.1) 11/12/20 15:20 POC Chloride 100 mmol/L (101-112) L 11/12/20 15:27 Chloride 101 mmol/L (98-107) 11/12/20 15:20 Carbon Dioxide 24 mmol/L (21-32) 11/12/20 15:20 POC Total CO2 23 mmol/L (24-31) L 11/12/20 15:27 Anion Gap 8.0 (3-11) 11/12/20 15:20 POC Anion Gap 17.0 mmol/L (16-25) 11/12/20 15:27 POC BUN 6 mg/dl (7-18) L 11/12/20 15:27 BUN 6 mg/dl (7-18) L 11/12/20 15:20 Creatinine 1.00 mg/dl (0.6-1.2) 11/12/20 15:20 POC Creatinine 0.5 mg/dl (0.6-1.3) L 11/12/20 15:27 Est Cr Clr Drug Dosing 75.9 ml/min 11/12/20 15:20 Est GFR ( Amer) 75.0 11/12/20 15:20 Est GFR (Non-Af Amer) 64.7 11/12/20 15:20 BUN/Creatinine Ratio 6.3 (10-20) L 11/12/20 15:20 Glucose 447 mg/dl (70-99) H* 11/12/20 15:20 POC Glucose 202 mg/dl (70-99) H 11/13/20 00:14 POC Glucose (other) 467 mg/dl (70-99) H* 11/12/20 15:27 Calcium 10.0 mg/dl (8.5-10.1) 11/12/20 15:20 POC Ioniz Calcium Joselyn 1.20 mmol/l (1.12-1.32) 11/12/20 15:27 Magnesium 1.8 mg/dl (1.8-2.4) 11/12/20 15:20 Total Bilirubin 0.5 mg/dl (0.2-1) 11/12/20 15:20 AST 17 U/L (15-37) 11/12/20 15:20 ALT 29 U/L (12-78) 11/12/20 15:20 Alkaline Phosphatase 164 U/L (45-117) H 11/12/20 15:20 Troponin I < 0.015 ng/ml (0-0.045) 11/12/20 15:20 Total Protein 8.5 gm/dl (6.4-8.2) H 11/12/20 15:20 Albumin 4.0 gm/dl (3.4-5.0) 11/12/20 15:20 Globulin 4.5 gm/dl (2.5-4.0) H 11/12/20 15:20 Albumin/Globulin Ratio 0.9 (0.9-2) 11/12/20 15:20 Beta-Hydroxybutyric Acd mg/dl (0.2-2.81) 11/12/20 15:20 TSH 1.410 uIu/ml (0.300-4.500) 11/12/20 15:20 Urine Color Yellow 11/12/20 17:38 Urine Appearance Clear (Clear) 11/12/20 17:38 Urine pH 5.0 (4.5-7.5) 11/12/20 17:38 Ur Specific Kelly > 1.045 (1.000-1.030) H 11/12/20 17:38 Urine Protein 1+ (Negative) H 11/12/20 17:38 Urine Glucose (UA) 3+ (Negative) H 11/12/20 17:38 Urine Ketones Negative (Negative) 11/12/20 17:38 Urine Blood Negative (Negative) 11/12/20 17:38 Urine Nitrite Negative (Negative) 11/12/20 17:38 Urine Bilirubin Negative (Negative) 11/12/20 17:38 Urine Urobilinogen Negative (Negative) 11/12/20 17:38 Ur Leukocyte Esterase Negative (Negative) 11/12/20 17:38 Urine WBC (Auto) 1-5 /hpf (0-5) 11/12/20 17:38 Urine RBC (Auto) 0-4 /hpf (0-4) 11/12/20 17:38 U Hyaline Cast (Auto) 1-5 /lpf (0-5) 11/12/20 17:38 U Epithel Cells (Auto) 10-20 /lpf (0-5) H 11/12/20 17:38 Urine Bacteria (Auto) Negative (Negative) 11/12/20 17:38 COVID-19 Eval Order Covid19 IDNow [facility] 11/12/20 20:40 SARS-CoV-2, RNA, NAAT NEGATIVE (NEGATIVE) 11/12/20 20:40 Diagnostic Findings [facility], [phone] CT Scan Report Patient: MARCIO FERNANDEZ Date: 11/12/20MR#: [id number]: [id number] ROSA DRAcct ID:[id number]: Date: 1970City Zip: [place] [id number]: 50Location: EDSex: FRoom/Bed:Att Phy:Diagnosis: WEAKNESSPri Phy: Aiden Pérez MDService Date: 11/12/20Fam Phy:Interpreting Phy: Kumar Caldwell MDAdmit Phy: Ordering Phy: Ignacio Cunningham DO cc: ~ CT SCAN OF THE BRAIN WITHOUT IV CONTRAST CLINICAL HISTORY: Left-sided weakness. Headache. COMPARISON STUDY: CT of the brain dated 10/28/2020. TECHNIQUE: Unenhanced axial CT scan of the brain is performed from the vertex to the skull base. A dose lowering technique was utilized adhering to the principles of ALARA. CT DOSE: 1080.51 mGy.cm FINDINGS: Brain parenchyma: The brain parenchyma is normal in appearance. There is no hemorrhage, mass effect, or evidence of acute territorial ischemia by CT criteria. Brower-white matter differentiation is preserved. No extra-axial fluid collection is seen. Ventricles, sulci, cisterns: Normal in configuration. Intracranial vasculature: The visualized intracranial vasculature at the skull base is normal in appearance. Calvarium: Unremarkable. Sinuses and mastoids: The visualized paranasal sinuses are clear. The mastoid air cells are well pneumatized. Orbits: The bony orbits are grossly intact. IMPRESSION: There is no hemorrhage, mass effect, or evidence of acute territorial ischemia by CT criteria. ACT 112: Negative or not required by law. Electronically signed by: Kumar Caldwell M.D. 11/12/2020 3:47 PM Dictated: 11/12/20 1545Transcribed: 11/12/20 1545 [facility], [phone] CT Scan Report Patient: MARCIO FERNANDEZ Date: 11/12/20MR#: [id number]: [id number] ROSA Bradfordt ID:[id number]: [facility] 1970[facility] [place] [address]Pjg: 50Location: EDSex: FRoom/Bed:Att Phy:Diagnosis: WEAKNESSPri Phy: Aiden Pérez MDService Date: 11/12/20Fa Phy:Interpreting Phy: Luis F Mixon MDAdmit Phy: Ordering Phy: Ignacio Cunningham DO cc: ~ NECK CTA HISTORY: left sided weakness TECHNIQUE: Multiaxial CT images of the neck were performed following the intravenous administration of contrast to evaluate the major cervical vessels. Maximum intensity projection images were also obtained. All measurements were calculated based on NASCET criteria. A dose lowering technique was utilized adhering to the principles of ALARA. COMPARISON STUDY: None. FINDINGS: The aortic arch and proximal great vessels are widely patent. Motion artifact results in near nondiagnostic evaluation of the bilateral carotid bifurcations. However, there is no definite stenosis, occlusion, or dissection identified within the bilateral common carotid, internal carotid, or vertebral arteries. IMPRESSION: Motion artifact results in near nondiagnostic evaluation of bilateral carotid bifurcations. However, there is no definite stenosis, occlusion, or dissection identified within the carotid or vertebral arteries. ACT 112: Negative or not required by law. Electronically signed by: Luis F Mixon M.D. 11/12/2020 3:57 PM Dictated: 11/12/20 1552Transcribed: 11/12/20 1552 [facility], [phone] CT Scan Report Patient: MARCIO FERNANDEZ Date: 11/12/20MR#: [id number]: [id number] ROSA Bradfordt ID:[id number]: Date: 1970City Zip: [place] [phone]: 50Location: EDSex: FRoom/Bed:Att Phy:Diagnosis: WEAKNESSPri Phy: Aiden Pérez, MDService Date: 11/12/20Fam Phy:Interpreting Phy: Kumar Caldwell MDAdmit Phy: Ordering Phy: Ignacio Cunningham DO cc: ~ CT ANGIOGRAM OF THE BRAIN CLINICAL HISTORY: Headache. Left-sided weakness. COMPARISON STUDY: Unenhanced CT of the brain performed concurrently on 11/12/2020. CT angiogram of the brain dated 10/28/2020. TECHNIQUE: Following the IV administration of 119 cc of Optiray 320, CT angiogram of the brain was performed from the skull base to the vertex. Images are reviewed in the axial, sagittal, and coronal planes. 3-D MIPS images are created and assessed. IV contrast was administered without complication. A dose lowering technique was utilized adhering to the principles of ALARA. FINDINGS: Brain parenchyma: The brain parenchyma is normal in appearance. There is no hemorrhage, mass effect, or evidence of acute territorial ischemia by CT criteria. There is no evidence of enhancing mass lesion on the angiogram phase images. No extra-axial fluid collection is seen. Brower-white matter differentiation is preserved. Ventricles, sulci, and cisterns: Normal in configuration. CT angiogram of the brain: The internal carotid arteries are patent, as are the anterior and middle cerebral arteries. There is mild narrowing of the cavernous carotid artery in the right seen on axial image #75. The right A1 segment is atretic. These findings are similar to previous. The vertebrobasilar system and posterior cerebral arteries are widely patent. The left vertebral artery is do minant. There is no aneurysm, high-grade stenosis, or focal vessel cutoff identified throughout the intracranial circulation. Dural sinuses: Clear as visualized. Orbits: The bony orbits are intact. The orbital contents are normal as visualized. Sinuses and mastoids: The visualized paranasal sinuses are clear. The mastoid air cells are well pneumatized. Calvarium: Unremarkable. IMPRESSION: 1. There is no hemorrhage, mass effect, or evidence of acute territorial ischemia by CT criteria noting angiographic phase technique. 2. There is mild narrowing of the right cavernous carotid artery, unchanged from previous. This is of indeterminant significance. 3. Otherwise unremarkable CT angiogram of the brain, not significant change from 10/28/2020. ACT 112: Negative or not required by law. Electronically signed by: Kumar Caldwell M.D. 11/12/2020 4:03 PM Dictated: 11/12/20 1556Transcribed: 11/12/20 1556 Code Status & VTE Plan Code Status Full code VTE Prophylaxis Plan VTE Prophylaxis will be ordered: Yes PG Care Time/CCT Total # of Minutes Spent Total Time Spent with Patient: Total time spent is greater than 50% in coordination of care (as documented) at patient's floor/unit and/or counseling patient: Coding Level of Care Code 63798 Initial Inpt Care Lvl 3 Diagnoses Acute left-sided weakness R53.1 Headache R51.9 Headache chronicity pattern: unspecified pattern Headache type: unspecified Intractability: not intractable Insulin dependent diabetes mellitus E11.9; Z79.4 Acute hyperglycemia R73.9 Chronic obstructive pulmonary disease J44.9 Liver cirrhosis K74.60 Hepatic cirrhosis type: unspecified hepatic cirrhosis (1) Headache Headache chronicity pattern: unspecified pattern Headache type: unspecified Intractability: not intractable Qualified Code(s): R51.9 - Headache, unspecified (2) Liver cirrhosis Hepatic cirrhosis type: unspecified hepatic cirrhosis
[2020-11-12] MEDS ORDERED: LORazepam 0.5 MG/1 ML VIAL IV SCH (23:00)
[2020-11-13] MEDS ORDERED: ONDANSETRON INJ 2 MG/ML 2 ML VIAL IV PRN (00:03)
[2020-11-13] MEDS ORDERED: DEXTROSE 50% 50 ML SYRINGE IV PRN (00:03)
[2020-11-13] MEDS ORDERED: GLUCOSE 10 TABS/TUBE PO PRN (00:03)
[2020-11-13] MEDS ORDERED: GLUCAGON FOR INJ 1 MG VIAL SQ PRN (00:03)
[2020-11-13] MEDS ORDERED: PROMETHAZINE HCL 25 MG TAB PO PRN (00:03)
[2020-11-13] MEDS ORDERED: CARBOHYDRATES FOR HYPOGLYCEMIA PO PRN (00:03)
[2020-11-13] MEDS ORDERED: GLUCOSE 40% GEL 15 GM TUBE PO PRN (00:03)
[2020-11-13] MEDS ORDERED: CYCLOBENZAPRINE HCL 10 MG TAB PO PRN (00:15)
[2020-11-13] MEDS: INSULIN GLARGINE SOLOSTAR 100 UNITS/ML 3 ML PEN SQ SCH ×3 (00:47→21:20)
[2020-11-13] MEDS ORDERED: oxyCODONE HCL IR 5 MG TAB (IMMEDIATE RELEASE) PO PRN (00:47)
[2020-11-13] MEDS: GABAPENTIN 600 MG TAB PO SCH ×4 (00:48→21:09)
[2020-11-13] MEDS ORDERED: PHARMACIST DISCHARGE MED REC CONSULT PRN (04:27)
[2020-11-13] MEDS: oxyCODONE HCL IR 5 MG TAB (IMMEDIATE RELEASE) PO PRN ×2 (06:39→17:51)
[2020-11-13 07:09] LABS: Basophils # (auto) 0.02 K/uL (0-0.2); Basophils % (auto) 0.4 %; Eosinophils # (auto) 0.13 K/uL (0-0.5); Eosinophils % (auto) 2.3 %; Hematocrit (blood only) 38.9 % (37-47); Hemoglobin 13.3 g/dL (12.0-16.0); Immature Granulocytes # (auto) 0.01 K/uL (0.00-0.02); Immature Granulocytes % (auto) 0.2 %; Lymphocytes # (auto) 2.48 K/uL (1.2-3.4); Lymphocytes % (auto) 43.8 %; Mean Corpuscular Hgb Conc 34.2 g/dL (32-36); Mean Corpuscular Volume 93.5 fL (80-100); Mean Platelet Volume 10.5 fL (7.4-10.4); Monocytes # (auto) 0.38 K/uL (0.11-0.59); Monocytes % (auto) 6.7 %; Neutrophils # (auto) 2.64 K/uL (1.4-6.5); Neutrophils % (auto) 46.6 %; Platelet Count 122 K/uL (130-400); RDW Standard Deviation 48.1 fL (36.4-46.3); Red Blood Count 4.16 M/uL (4.2-5.4); White Blood Count 5.66 K/uL (4.8-10.8)
--- NOTE | 2020-11-13 07:18 | Magnetic Resonance Report ---
MR brain wo con HISTORY: 50 years-old Female Subjective Left sided weakness acute strokelike symptoms with left-side d weakness COMPARISON: Head CT, CTA head and neck 11/12/2020, brain MRI 08/29/2018 TECHNIQUE: Multiplanar multisequence MRI of the brain was obtained without the use of IV contrast. FINDINGS: Director Medicare Sales localizer images demonstrate no gross extracranial abnormality. There is no restricted diffusio n to suggest acute or subacute infarct. No acute intracranial hemorrhage, midline shift, abnormal ext ra-axial collection, hydrocephalus or intracranial mass. No pathologic blooming artifact on the T2 st ar series. There are no significant T2/flair signal abnormalities within the brain parenchyma. Cerebr al venous sinuses and major arterial flow voids appear patent. Mastoid air cells are clear. Minimal m ucosal thickening involving a few ethmoid air cells. The orbits, skull and soft tissues are unremarka ble. IMPRESSION: No acute intracranial abnormality, specifically there is no evidence of acute or subacute infarct. ACT 112: Negative or not required by law. The above report was generated using voice recognition software. It may contain grammatical, syntax o r spelling errors. Electronically signed by: Marino Arreola M.D. 11/13/2020 7:17 AM
[2020-11-13] MEDS ORDERED: INSULIN ASPART 100 UNITS/ML 3 ML PEN SC SCH (07:30)
[2020-11-13 07:36] LABS: Calcium 9.3 mg/dl (8.5-10.1); Est GFR (Non-African American) 93.1; Potassium 3.7 mmol/L (3.5-5.1)
[2020-11-13 08:11] LABS: Estimated Average Glucose 298 mg/dl
[2020-11-13] MEDS: ASPIRIN 81 MG ECTAB PO SCH (08:28)
[2020-11-13] MEDS: ATORVASTATIN 40 MG TAB PO SCH (08:30)
[2020-11-13] MEDS: FLUTICASONE/VILANTEROL 200/25MCG 14 PUFFS/INHALER INH SCH (08:30)
--- NOTE | 2020-11-13 09:19 | Neurology Consultation ---
Date of Consultation November 13, 2020 Assessment & Plan (1) Acute left-sided weakness: (2) Headache: (3) Cervical radicular pain: (4) Acute hyperglycemia: this patient has developed some subacute left-sided weakness and pain, with pain centering on the left side of the head, left neck, and left upper extremity to the hand. This has a radicular quality to it and the origin of the pain may be the neck. Although the patient has a history of migraine headaches intermittently this current event does not fit with her migraines. Nevertheless, she could be having a complicated migraine with vasospasms giving her a mix of headache and weakness. In addition hyperglycemia can result in transient focal neurologic findings. MRI of the brain showed no actual stroke. Her speech and weakness patterns are not consistent with neurologic disease and may be more psychiatric in origin. Recommendations: 1. Because of her neck pain consider MRI of the cervical spine , without contrast. 2. it might be good to get speech, occupational, and physical therapy consult to get a good evaluation and baseline. 3. Control glucose aiming for a hemoglobin A1c closer to 8. she follows with Endocrinology. 4. Otherwise treat pain symptomatic early as you are doing. Overall, I spent a total of 60 minutes with this case including review of records, review of MRI films, direct evaluation the patient at bedside, and discussion of the case with the patient and nurse at bedside and Dr. Herrera including differential diagnosis and treatment options. History of Present Illness Reason for Consultation: Patient is a 50-year-old, who I was asked to see at the request of Dr. Pastor, for neurologic consultation regarding possible stroke. Requesting Physician: Dr. Pastor Attending Physician: Venkat Herrera MD History of Present Illness patient has a history of insulin-dependent diabetes which she claims has only been present for about 2 years. She has a history of hepatic cirrhosis, hypertension, and dyslipidemia. Patient was admitted October 28 for 2 episodes of syncope. Her glucose in the emergency room was 601 that day. In August, hemoglobin A1c was 15. over the last 1-1/2 year she has lost weight from a maximum of 345 pounds down to about 207 currently. Patient has a history of migraine headaches starting in her early teen years. They can occur intermittently and average about once per month. They start out with a dull bifrontal headache and quickly turn into a throbbing sharp pain occasionally on the left. There is nausea photophobia and sonophobia. There is no vomiting. They can last up to 6-8 hours. Promethazine helps but rizatriptan does not. The patient started getting a headache on the left side of her head starting about 5 days ago. This was not a typical migraine. It was a stabbing pain that radiated into the whole left hand and left neck into the left arm down to the hand. The headache in pain progressed over several days and she started getting weakness in her hand. She felt that her left leg was weak and she had some hip and knee pain but not pain that was diffusely in her leg. She arrived to the emergency room November 12 with a temperature of 36.6, pulse 93, respiratory rate 18, blood pressure 108/77 and O2 saturation 100 percent. She was described as having mild left arm and leg weakness. There was no evidence of speech issues. Glucose was 480 in the emergency room. CBC was un remarkable as was the rest of her Chem profile. urinalysis was unremarkable and she was Covid-[address] scan of the head was unremarkable. CT angiography of the head and neck were unremarkable as well with no significant stenoses or vessel anomalies. MRI of the brain showed no stroke and had minimal small vessel ischemic disease little nature. I reviewed these films. Today she feels that she is a little bit better but still has the pain and weakness. She now feels her speech is a little bit worse. Nursing reports that it is slurred. She complains of fatigue and her vision getting worse. She has no incontinence of urine. There is no right-sided symptomatology. Allergies Allergy/AdvReac Type Severity Reaction Status Date / Time cephalexin AdvReac Severe Vomiting Verified 11/12/20 16:32 acetaminophen AdvReac Unknown Other Verified 11/12/20 16:32 levofloxacin [From Levaquin] AdvReac Unknown Vomiting Verified 11/12/20 16:32 Home Medications Medication Instructions Recorded Confirmed Type cyclobenzaprine 10 mg PO BID PRN #0 11/18/17 11/12/20 History gabapentin 1,200 mg PO TID #0 tab 11/18/17 11/12/20 History albuterol sulfate [Ventolin HFA] 2 puff INHALATION Q4H PRN #0 02/10/18 11/12/20 History diclofenac sodium [Voltaren] 4 g TOPICAL QID PRN 01/05/19 11/12/20 History ibuprofen 800 mg PO TID PRN 10/24/19 11/12/20 History promethazine 25 mg PO Q6H PRN 10/24/19 11/12/20 History oxycodone-acetaminophen 10 mg-325 1 tab PO Q6H PRN #20 tab 02/11/20 Rx mg tablet Trulicity 1.5 mg SUBCUT WK 05/19/20 11/12/20 History fluticasone propion-salmeterol 2 inh INHALATION BID 08/21/20 11/12/20 History insulin aspart U-100 [Novolog 12 unit SC ACHS 08/21/20 11/12/20 History Flexpen U-100 Insulin] montelukast 10 mg tablet 10 mg PO QPM 09/01/20 11/12/20 History aspirin 81 mg PO QAM 10/28/20 11/12/20 History Lantus Solostar U-100 Insulin 40 unit SUBCUT AMPM #0 ml 10/30/20 11/12/20 Rx Patient History Medical History Abdominal pain Anxiety Brain cyst Chest pain Chronic low back pain with left-sided sciatica Chronic obstructive pulmonary disease Dental abscess Depression Emphysema of lung Hx of blood clots Hypertension Insulin dependent diabetes mellitus Lightheadedness Obesity Opioid abuse Pulmonary embolism Reports was anticoagulation x 60 days, not on chronic anticoagulation Syncope Thrombocytopenia Tinea corporis Uncontrolled type 2 diabetes mellitus Surgical History History of laparoscopic cholecystectomy Hx of oral surgery (02/15/20) Acute right submandibular, submental space infection with floor of mouth infection caused by infected lower teeth. Dr. Rios 02/15/20 S/P dilation and curettage S/P laparoscopic hernia repair S/P laparoscopic procedure ovarian cyst surgery Family History Mother , 73 Heart disease Cancer Father Skin cancer Brother No problems noted. Sister No problems noted. Grandmother (Maternal) , 48 Heart disease T2DM (type 2 diabetes mellitus) Grandmother (Paternal) , 83 Heart disease Kidney disease Uncle T2DM (type 2 diabetes mellitus) Other Diabetes Obesity Denies family history of Ovarian cancer Breast cancer Colorectal cancer Uterine cancer Social History Smoking Status: Current every day smoker Tobacco Type: Cigarettes Cigarettes Per Day: 5; Second Hand Exposure: Yes; Hx Alcohol Use: No Hx Substance Use: Yes Last Used Substance: Just Prior to Arrival Preferred Language: Upper Sorbian Communication Ability: Effective Visual Impairment: No Limitations Hearing Ability: Normal Executive [employer] Required: No Beliefs That Will Affect Care: None marital status: Current Living Situation: Family Current Living Situation Comment: son 10/11 the time current occupational status: unemployed How many Children do You have: 1 Feels Safe at Home: No Is there a partner from a previous relationship who is making you feel unsafe now?: No Assistive Devices: Glasses Review of Systems Constitutional: + fatigue and + weakness; no fever Eyes: + worsening vision; no diplopia and no eye pain Ear, Nose, Mouth, Throat: no ear pain, no tinnitus, no hearing loss, no dizziness, no hoarseness and no dysphagia Respiratory: no cough and no dyspnea Cardiovascular: no chest pain, no palpitations and no lightheadedness Gastrointestinal: no abdominal pain, no nausea and no vomiting Genitourinary: no dysuria, no urinary frequency and no urinary incontinence Musculoskeletal: + neck pain and + radicular pain; no back pain, no joint pain and no myalgia Integumentary: no rash and no lesions Neurologic: + gait abnormality, + localized weakness, + headache(s) and + abnormal speech; no generalized weakness, no tingling, no numbness, no tremor(s), no abnormal movements, no confusion and no memory loss Psychiatric: + anxiety; no depression, no irritability, no difficulty concentrating, no confusion and no hallucinations Endocrine: no fatigue and no flushing Hematologic / Lymphatic: no easy bleeding and no easy bruising Allergy / Immunological: no urticaria and no problem reported Exam (Neuro) Physical Exam: The patient is right-handed. The patient is awake, alert, and attentive. Speech is Somewhat "bizarre" with no obvious expressive or receptive aphasia but at times she speaks very clearly and other time she has a little bit of pressured speech and has some added noises or stuttering to her speech. She can name objects, repeat phrases, and has normal spontaneous speech. Mentation and thought processes are intact, with orientation to person, place and time, and normal fund of knowledge. Attention and concentration are normal. Mood and affect are normal and appropriate. General appearance and grooming are normal. Short and long-term memory seem intact. Extraocular eye muscles are intact without nystagmus. There are no deficits to sensation in the face in all 3 distributions of the fifth cranial nerve bilaterally. Corneal reflexes are positive bilaterally. Facial strength and symmetry was normal bilaterally. Hearing seems normal to whisper and finger rub bilaterally. Palate moves well without asymmetry. There is normal sternocleidomastoid and trapezius (shoulder shrug) strength bilaterally. Tongue is midline with good strength bilaterally. Neck has a full range of motion without discomfort. Cervical, thoracic, and lumbar spine are nontender to palpation. Gait is Narrow based and she limps favoring the left leg. Stance is reasonable eyes open. With outstretched arms there is a sudden drop in both arms and no actual drift. There are no resting tremors, but she does have a little bit of action tremor in the left upper extremity. There is no ataxia with finger to nose testing. There is good facility in the hands. No other abnormal involuntary movements are noted. Motor strength examination is difficult but I believe she has no actual left- sided weakness. She has giveaway weakness of the left arm and leg and her strength seems variable at different times when I tested. The limbs have good tone without rigidity or spasticity. There is no atrophy noted in the muscles. Muscle bulk is normal, there is no tenderness to palpation, no myotonia to percussion, and no fasciculations seen. Sensory examination is intact to touch and pin throughout all 4 limbs diffusely. Reflexes are 1/4 in the biceps, triceps, brachioradialis, quadriceps, and Achill es tendons bilaterally. There is no clonus bilaterally. Toes are downgoing with plantar stimulation bilaterally. Peripheral pulses are present and of normal quality distally in all 4 limbs. There is no peripheral edema noted in the limbs. Results & Data ([facility]) Vital Signs (Past 12 Hours) Vital Signs Temp Pulse Pulse Pulse Resp BP BP 11/13/20 07:30 73 11/13/20 07:25 36.1 C L 79 16 135/84 11/13/20 03:00 36.4 C L 82 20 129/87 11/12/20 23:55 36.6 C 75 20 122/78 11/12/20 22:31 82 18 121/83 11/12/20 22:00 74 22 113/80 11/12/20 21:31 70 16 95/71 L Pulse Ox 11/13/20 07:30 11/13/20 07:25 91 11/13/20 03:00 96 11/12/20 23:55 98 11/12/20 22:31 98 11/12/20 22:00 98 11/12/20 21:31 98 PG Care Time/CCT Total # of Minutes Spent Total Time Spent with Patient: Total time spent is greater than 50% in coordination of care (as documented) at patient's floor/unit and/or counseling patient: Coding Level of Care Code 18732 OBS Care - Level 3 Diagnoses Acute left-sided weakness R53.1 Headache R51.9 Headache chronicity pattern: unspecified pattern Headache type: unspecified Intractability: not intractable Cervical radicular pain M54.12 Acute hyperglycemia R73.9 Time Spent (min) 60 (1) Headache Headache chronicity pattern: unspecified pattern Headache type: unspecified Intractability: not intractable Qualified Code(s): R51.9 - Headache, unspecified
[2020-11-13] MEDS: INSULIN ASPART 100 UNITS/ML 3 ML PEN SC SCH ×4 (09:31→21:11)
--- NOTE | 2020-11-13 14:57 | Hospitalist Progress Note ---
Date of Service November 13, 2020 Assessment & Plan (1) Acute left-sided weakness: Left-sided weakness and headache of 5 days duration. Patient had minimal decrease in strength upper and lower extremity on the left compared to the right of unknown duration. - MRI, CTA head/neck without issues. - Discussed with neurology - Possibly atypical migraine vs. neurologic issues due to hyperglycemia vs. anxiety. - Consult PT/OT/speech/neurology (2) Headache: See above (3) Insulin dependent diabetes mellitus: A1c was 12.0% this admission. Down from 15.2% in 08/2020. - Hold Trulicity - Continue Lantus insulin 40 units BID - Sliding scale insulin -> Sugars pretty consistent around 250. Will adjust in next 1-2 days to see how she does. (4) Chronic obstructive pulmonary disease: No acute shortness of breath. - Continue usual inhalers (5) Liver cirrhosis: CT a/p on 10/28/2020 indicates cirrhosis with abdominal varices. No present indication of variceal bleed or hepatic encephalopathy. - Follow liver tests (6) DVT prophylaxis: Lovenox 40 mg SQ daily Admission and Anticipated Discharge Date Admission Date: November 12, 2020 Subjective Mostly concerned about her left neck pain now and her dysarthria. She says it helps if she stops and thinks about what she wants to say first. She feels possibly the pain is causing her dysarthria. Physical Exam Constitutional: WD/WN, vitals as above Eyes: EOM intact bilaterally; no conjunctival abnormality ENMT: external ear and nose normal, oropharynx normal Neck: trachea midline, no thyromegaly normal visual inspection Respiratory: normal respiratory effort, lungs clear to auscultation no respiratory distress Cardiovascular: RRR, no murmur, no edema Gastrointestinal (Abdomen): Inspection/Auscultation: abdomen normal to inspection; abdomen not distended Musculoskeletal: no cyanosis or clubbing, extremities motor strength 5/5 Skin: no rashes, warm and dry Neurologic: moves all extremities and awake Speech / Cognition: + abnormal speech (Pressured. Transient, inconsistent difficulty with words.) Psychiatric: Orientation: alert, oriented to person and cooperative Results & Data Results & Data ([facility]) Vital Signs (Past 12 Hours) Vital Signs Temp Pulse Pulse Resp BP Pulse Ox 11/13/20 11:07 36.6 C 87 16 147/78 H 99 11/13/20 07:30 73 11/13/20 07:25 36.1 C L 79 16 135/84 91 11/13/20 03:00 36.4 C L 82 20 129/87 96 PG Care Time/CCT Total # of Minutes Spent Total Time Spent with Patient: Total time spent is greater than 50% in coordination of care (as documented) at patient's floor/unit and/or counseling patient: Coding Level of Care Code 05238 Subseq Hosp Care Lvl 3 Diagnoses Acute left-sided weakness R53.1 Headache R51.9 Headache chronicity pattern: unspecified pattern Headache type: unspecified Intractability: not intractable Insulin dependent diabetes mellitus E11.9; Z79.4 Chronic obstructive pulmonary disease J44.9 Liver cirrhosis K74.60 Hepatic cirrhosis type: unspecified hepatic cirrhosis DVT prophylaxis Z29.9 (1) Headache Headache chronicity pattern: unspecified pattern Headache type: unspecified Intractability: not intractable Qualified Code(s): R51.9 - Headache, unspecified (2) Liver cirrhosis Hepatic cirrhosis type: unspecified hepatic cirrhosis
[2020-11-13] MEDS ORDERED: MONTELUKAST SODIUM 10 MG TABLET PO SCH (21:00)
[2020-11-13] MEDS ORDERED: LORazepam 1 MG TAB PO STA (23:15)
[2020-11-14] MEDS: oxyCODONE HCL IR 5 MG TAB (IMMEDIATE RELEASE) PO PRN (03:34)
[2020-11-14 06:32] LABS: Basophils # (auto) 0.02 K/uL (0-0.2); Basophils % (auto) 0.3 %; Eosinophils # (auto) 0.15 K/uL (0-0.5); Hematocrit (blood only) 39.9 % (37-47); Hemoglobin 13.7 g/dL (12.0-16.0); Immature Granulocytes # (auto) 0.02 K/uL (0.00-0.02); Immature Granulocytes % (auto) 0.3 %; Mean Corpuscular Hemoglobin 31.9 pg (25-34); Mean Corpuscular Hgb Conc 34.3 g/dL (32-36); Mean Platelet Volume 11.5 fL (7.4-10.4); Monocytes # (auto) 0.39 K/uL (0.11-0.59); Monocytes % (auto) 5.1 %; Neutrophils # (auto) 4.79 K/uL (1.4-6.5); Neutrophils % (auto) 62.3 %; Platelet Count 149 K/uL (130-400); RDW Coefficient of Variation 14.1 % (11.5-14.5); RDW Standard Deviation 47.8 fL (36.4-46.3); Red Blood Count 4.29 M/uL (4.2-5.4); White Blood Count 7.67 K/uL (4.8-10.8)
[2020-11-14 07:05] LABS: BUN Creatinine Ratio 12.8 (10-20); Calcium 9.5 mg/dl (8.5-10.1); Creatinine Clr Calc Pharmacy 109.6 ml/min; Est GFR (African American) 109.7; Est GFR (Non-African American) 94.7; Potassium 3.7 mmol/L (3.5-5.1)
--- NOTE | 2020-11-14 07:26 | Magnetic Resonance Report ---
MRI OF THE CERVICAL SPINE WITHOUT CONTRAST CLINICAL HISTORY: Neck pain radiating into left upper extremity. Recent falls. COMPARISON: MRI of the cervical spine May 30, 2015. CT of the cervical spine October 28, 2020. TECHNIQUE: Utilizing a 1.5 Paty magnet and dedicated coil, multiplanar, multiecho imaging of the ce rvical spine was performed without IV contrast. FINDINGS: Alignment of the cervical spine is anatomic. There is no acute fracture. Mild loss of height of the s uperior endplates of T1, T2 and T3 is chronic. Cervical cord signal and caliber are normal. There is no intracanalicular mass or fluid collection. Paravertebral soft tissues are unremarkable. There is n o suspicious marrow replacement. C2-C3: The central canal and neural foramen are patent. C3-C4: Small central disc protrusion effaces the ventral thecal sac. There is mild central canal dalila nosis. Note is made of minimal left neural foraminal narrowing. C4-C5: Mild posterior disc osteophyte complex slightly effaces the ventral thecal sac. There is mild multilevel central canal stenosis. Moderate to severe right neural foraminal stenosis due to uncover tebral hypertrophy and facet arthrosis is present. There is mild narrowing of the left neural foramen . C5-C6: There is minimal posterior disc osteophyte complex. There is no significant central canal dalila nosis. Moderate left and mild right neural foraminal stenosis is noted. C6-C7: The central canal and neural foramen are patent. C7-T1: The central canal and neural foramen are patent. IMPRESSION: 1. No acute process within the cervical spine by MRI. Normal cervical cord signal and caliber. No acu te fracture. 2. Mild loss of height of the superior plate of T1, T2 and T3 which is chronic. 3. Minimal multilevel degenerative disc disease. Mild multilevel central canal stenosis, as detailed above. 4. Multilevel neural foraminal stenosis, as detailed above. This is most pronounced at the right C4-C 5 neural foramen. ACT 112: Negative or not required by law. Electronically signed by: Dani Cardona M.D. 11/14/2020 7:25 AM
[2020-11-14] MEDS ORDERED: ACETAMINOPHEN 325 MG TAB PO PRN (07:34)
[2020-11-14] MEDS ORDERED: KETOROLAC TROMETHAMINE 15 MG/ML VIAL IV PRN (07:34)
[2020-11-14 08:25] LABS: Base Excess VBG -0.9 mEq/L; pH VBG 7.43 (7.36-7.41)
--- NOTE | 2020-11-14 08:32 | Neurology Progress Note ---
Date of Service November 14, 2020 Assessment & Plan (1) Acute left-sided weakness: (2) Headache: (3) Cervical radicular pain: (4) Acute hyperglycemia: The patient developed subacute left-sided weakness and pain, with pain centering on the left side of the head, left neck, and left upper extremity to the hand. This has a radicular quality to it and the origin of the pain Is likely coming from the cervical spine. Although the patient has a history of migraine headaches intermittently this current event does not fit with her migraines. MRI of the cervical spine shows mild spinal stenosis and this could be easily causing radicular type pain. Her speech and weakness has completely cleared. This was either due to a complicated migraine ( vasospasm) versus hyperglycemia induced transient neurologic symptoms. She has no focal neurologic findings, and MRI of the brain showed no actual stroke. Her speech and weakness patterns were not consistent with neurologic disease and seemed more psychiatric in origin. Recommendations: 1. I have no further neurologic testing or treatment recommendations to make at this time since she is so improved. 2. I would follow up as an outpatient in 3 weeks or so. She still having neck and left upper extremity pain I would consider EMG and nerve conduction studies at that. 3. Endocrinology to follow up her glucose. Overall, I spent a total of 25 minutes with this case including review of records, review of MRI films, direct evaluation the patient at bedside, and discussion of the case with the patient and nurse at bedside and Dr. Herrera, including differential diagnosis and treatment options. Admission and Anticipated Discharge Date Admission Date: November 12, 2020 Subjective Patient is feeling much better today compared to yesterday. She has no headache but still has a little bit of left-sided neck and arm pain. her strength is better on the left side and she does not have any speech issues. Glucose is closer to 150 this morning. She is afebrile and blood pressure was 121/77. MRI of the cervical spine showed some mild spinal stenosis from multiple levels of degenerative disc in bone. The cord itself appeared unremarkable. I reviewed these MRI films. Results & Data ([facility]) Vital Signs (Past 12 Hours) Vital Signs Temp Pulse Pulse Resp BP Pulse Ox 11/14/20 08:07 36.9 C 96 H 20 121/77 97 11/14/20 04:00 36.3 C L 100 H 20 114/68 95 11/13/20 22:51 36.6 C 71 16 112/76 96 11/13/20 22:20 73 Exam (Neuro) Physical Exam: She is awake and alert. Speech is without any aphasia, dysarthria, hesitancy or extra sounds. She is pleasant and cooperative. Thought processes seem quite intact. Extraocular eye muscles are intact without nystagmus. There is no facial droop. Coordination is normal in the arms and strength is symmetrical in the limbs. PG Care Time/CCT Total # of Minutes Spent Total Time Spent with Patient: Total time spent is greater than 50% in coordination of care (as documented) at patient's floor/unit and/or counseling patient: Coding Level of Care Code 04925 Subseq Hosp Care Lvl 2 Diagnoses Acute left-sided weakness R53.1 Headache R51.9 Headache chronicity pattern: unspecified pattern Headache type: unspecified Intractability: not intractable Cervical radicular pain M54.12 Acute hyperglycemia R73.9 Time Spent (min) 25 (1) Headache Headache chronicity pattern: unspecified pattern Headache type: unspecified Intractability: not intractable Qualified Code(s): R51.9 - Headache, unspecified
[2020-11-14] MEDS: GABAPENTIN 600 MG TAB PO SCH ×2 (08:54→14:19)
[2020-11-14] MEDS: FLUTICASONE/VILANTEROL 200/25MCG 14 PUFFS/INHALER INH SCH (08:54)
[2020-11-14] MEDS: ATORVASTATIN 40 MG TAB PO SCH (08:55)
[2020-11-14] MEDS: ASPIRIN 81 MG ECTAB PO SCH (08:55)
[2020-11-14] MEDS: INSULIN GLARGINE SOLOSTAR 100 UNITS/ML 3 ML PEN SQ SCH (08:55)
[2020-11-14] MEDS: INSULIN ASPART 100 UNITS/ML 3 ML PEN SC SCH ×2 (08:58→12:40)
[2020-11-14 11:39] VITALS: PULSE 91; TEMP 98.2; O2SAT 95
[2020-11-14 13:07] VITALS: BP 147/78
--- NOTE | 2020-11-14 16:50 | Discharge Summary ---
Date of Service November 14, 2020 Admission HPI Per Admitting Provider The patient is a 50-year-old female with a past medical history including chronic low back pain, left-sided sciatica, opioid abuse, COPD, periapical abscess with facial involvement, insulin-dependent diabetes mellitus, liver cirrhosis, UTI, morbid obesity, ambulatory dysfunction, and hypertension. She reports the symptoms that she presented with above, have happened in the past, requiring hospitalization, without cause being determined but did return ultimately to normal. She denies any recent trauma, has not had any recent change in dietary or exercise patterns. She denies any recent travels or sick exposures. She does not check her blood sugars on a regular basis at home. Glucose upon arrival to the ED was 480, and after receiving 6 units of regular insulin IV along with 2 L normal saline, her glucose decreased to 346 then to 218. Principal Diagnosis Left arm weakness and trouble speaking Discharge Exam Constitutional WD/WN, vitals as above Eyes EOM intact bilaterally; no conjunctival abnormality ENMT external ear and nose normal, oropharynx normal Neck trachea midline, no thyromegaly normal visual inspection Respiratory normal respiratory effort, lungs clear to auscultation no respiratory distress Cardiovascular RRR, no murmur, no edema Gastrointestinal (Abdomen) Inspection/Auscultation: abdomen normal to inspection; abdomen not distended Musculoskeletal no cyanosis or clubbing, extremities motor strength 5/5 Skin no rashes, warm and dry Neurologic moves all extremities and awake Speech / Cognition: + abnormal speech (Pressured. Transient, inconsistent difficulty with words.) Psychiatric Orientation: alert, oriented to person and cooperative Discharge Data Allergies Allergy/AdvReac Type Severity Reaction Status Date / Time cephalexin AdvReac Severe Vomiting Verified 11/12/20 16:32 acetaminophen AdvReac Unknown Other Verified 11/12/20 16:32 levofloxacin [From Levaquin] AdvReac Unknown Vomiting Verified 11/12/20 16:32 Consultations 11/12/20 19:42 ED Decision to Admit Stat 11/13/20 00:03 Consult Case Management - Discharge Planning Routine 11/13/20 04:27 Consult Case Management - Discharge Planning Routine Consult Neurology Routine Ordered Studies 11/12/20 15:13 CT angio head w con Stat CT angio neck with con Stat 11/12/20 15:21 CT head/brain wo con Stat 11/12/20 22:37 MR brain wo con Urgent 11/14/20 00:00 MR cervical spine wo con Routine Diabetes Follow up Diabetes Follow-up Needed for HgbA1c >9% Hospital Course (1) Acute left-sided weakness: Left-sided weakness and headache of 5 days duration. Patient had minimal decrease in strength upper and lower extremity on the left compared to the right of unknown duration. - MRI, CTA head/neck without issues. - Discussed with neurology - Possibly atypical migraine vs. neurologic issues due to hyperglycemia vs. anxiety. 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 - By 11/14, the weakness and aphasia had resolved. For her neck pain, neurology recommended interventional pain management. If this does not improve the pain and if there is any concern for loss of function, EMG is next step. Dr. Middleton indicated he would see her in clinic as needed. (2) Headache: See above (3) Insulin dependent diabetes mellitus: A1c was 12.0% this admission. Down from 15.2% in 08/2020. - Hold Trulicity - Continue Lantus insulin 40 units BID - Patient met with music educator on several occasions. Adjustments were recommended, but the patient preferred to stick with the current regimen and follow up with her PCP and Endocrinology. (4) Chronic obstructive pulmonary disease: No acute shortness of breath. - Continue usual inhalers (5) Liver cirrhosis: CT a/p on 10/28/2020 indicates cirrhosis with abdominal varices. No present indication of variceal bleed or hepatic encephalopathy. - No inpatient needs. (6) DVT prophylaxis: Lovenox 40 mg SQ daily Total Time Total Time Spent Total Time Spent (In Minutes): 45 Discharge Plan Discharge Items Patient Disposition: Home - Self-Care Reason For Visit: Left-sided weakness and speech issues Discharge Diagnosis: Same Activity: Resume your previous activity Non-emergency contact: Primary Care Provider Call non-emergency contact if: your symptoms worsen Follow-up/Referrals: Aneudy Pérez MD [Primary Care Provider] - 11/20/20 10:50 am Diet: Carb Consistent or DM2 and Heart Healthy Addtl Attending Provider Instructions: Ms. Vick, You were admitted to the hospital with left-sided weakness and trouble speaking. We did testing that showed that you DID NOT have a stroke. We think this may have been caused by high blood sugar. Prema Ramirez spoke with you regarding your blood sugars. Please use your insulin regimen as described by Prema. Please follow up with the Endocrinology team. Pending Studies at Discharge: No Stand-Alone Forms: My [facility], Smoking Cessation Medications and DC Order Prescriptions: New oxycodone 5 mg Tablet 5 mg PO BID PRNQty: 0 RF: 0 Continued cyclobenzaprine 10 mg Tablet 10 mg PO BID PRN (Reason: Muscle Spasm) Qty: 0 RF: 0 gabapentin 600 mg Tablet 1,200 mg PO TID Qty: 0 RF: 0 albuterol sulfate [Ventolin HFA] 90 mcg/actuation Hfa Aerosol Inhaler 2 puff INHALATION Q4H PRN (Reason: Shortness Of Breath Or Wheezing) Qty: 0 RF: 0 montelukast [Singulair] 10 mg tablet 10 mg PO QPM RF: 0 diclofenac sodium [Voltaren] 1 % gel 4 g topical QID PRN (Reason: Pain) RF: 0 Trulicity 1.5 mg/0.5 mL pen injector 1.5 mg SUBCUT WK RF: 0 fluticasone propion-salmeterol 232-14 mcg/actuation aerosol powdr breath activated 2 inh INHALATION BID RF: 0 insulin aspart U-100 [Novolog Flexpen U-100 Insulin] 100 unit/mL (3 mL) insulin pen 12 unit SC ACHS RF: 0 ibuprofen 800 mg tablet 800 mg PO TID PRN (Reason: Pain) RF: 0 promethazine 25 mg tablet 25 mg PO Q6H PRN (Reason: Nausea) RF: 0 aspirin 81 mg Tablet,Delayed Release (Dr/Ec) 81 mg PO QAM RF: 0 Lantus Solostar U-100 Insulin 100 unit/mL (3 mL) insulin pen 40 unit SUBCUT AMPM Qty: 0 RF: 0 Discharge Orders: Discharge Order (Routine); Ordered 11/14/20 Ordered By: Venkat Herrera Admission Data Admit Date/Time: 11/12/20 22:49 Attending Provider: Venkat Herrera Admit Provider: Benigno Pastor Primary Care Provider: Aneudy Pérez Other Providers: Christopher Benitez ; Venkat Herrera Other Interventions: Discharge Summary Assessment (RN) Last Done: 11/14/20 13:03 Coding Level of Care Code 48025 OBS Care - Discharge Diagnoses Acute left-sided weakness R53.1 Headache R51.9 Headache chronicity pattern: unspecified pattern Headache type: unspecified Intractability: not intractable Insulin dependent diabetes mellitus E11.9; Z79.4 Chronic obstructive pulmonary disease J44.9 Liver cirrhosis K74.60 Hepatic cirrhosis type: unspecified hepatic cirrhosis DVT prophylaxis Z29.9
== END 2020-11-14 15:32 | disposition home or self-care (01) ==
LOC: 2N 14:48 → ED 14:48 → SUATTDRO 22:49 → 2N 11-13 00:12

== ENCOUNTER 2021-01-27 16:02 | Observation (INO) ==
[2021-01-27] MEDS ORDERED: SODIUM CHLORIDE 0.9% 1000ML 1,000 ML IV SCH (16:15)
[2021-01-27 16:23] LABS: Basophils # (auto) 0.01 K/uL (0-0.2); Basophils % (auto) 0.1 %; Eosinophils # (auto) 0.06 K/uL (0-0.5); Eosinophils % (auto) 0.8 %; Hematocrit (blood only) 40.1 % (37-47); Hemoglobin 14.3 g/dL (12.0-16.0); Immature Granulocytes # (auto) 0.01 K/uL (0.00-0.02); Immature Granulocytes % (auto) 0.1 %; Lymphocytes # (auto) 1.66 K/uL (1.2-3.4); Mean Corpuscular Hemoglobin 32.6 pg (25-34); Mean Corpuscular Hgb Conc 35.7 g/dL (32-36); Mean Corpuscular Volume 91.3 fL (80-100); Mean Platelet Volume 12.1 fL (7.4-10.4); Monocytes # (auto) 0.52 K/uL (0.11-0.59); Monocytes % (auto) 7.2 %; Neutrophils # (auto) 4.95 K/uL (1.4-6.5); Neutrophils % (auto) 68.8 %; Platelet Count 141 K/uL (130-400); RDW Coefficient of Variation 13.5 % (11.5-14.5); RDW Standard Deviation 44.7 fL (36.4-46.3); Red Blood Count 4.39 M/uL (4.2-5.4); White Blood Count 7.21 K/uL (4.8-10.8)
[2021-01-27 16:31] LABS: Prothrombin Time 10.6 Seconds (9.0-12.0)
--- NOTE | 2021-01-27 16:44 | Emergency Department Note ---
Impression & Plan Hyperglycemia due to type 2 diabetes mellitus, Elevated lactic acid level, Boil of inguinal region, Hypokalemia, Hypomagnesemia ED Provider Note Provider: Ok Suoza MD DATE OF SERVICE: 01/27/2021 CHIEF COMPLAINT: High blood sugar, elevated heart rate, weakness, increased urination, skin boil HISTORY OF PRESENT ILLNESS: Patient is a 50-year-old female past medical history including insulin-dependent diabetes and hypertension presenting here today with complaints of elevated blood sugar for approximate the past 2 days. States yesterday she had 2 readings of high on her glucometer at home as well as for readings of high today. Patient states she has been not eating quite as much but drinking a lot of water and urinating quite a bit over the last several days. Patient states she been taking her home insulin and trying to cover according to her sliding scale. Patient states she has difficult control diabetes and her A1c this past winter was 15 but on a recent check several weeks ago improved to 10. Patient denies fever. She does report she feels bit weak and that her heart rates a bit fast. Patient states over the past month or so she has had on and off episodes of some boils in the inguinal and buttock region. Completed course of doxycycline and things improved but then these returned. States she had a telehealth encounter with your doctors office on Tuesday and started doxycycline at that time. Currently has 2 small boils one on the left gluteal fold as well as one in the right vulvar/inguinal area had not been draining and have improved some since starting the doxycycline. No fevers reported. No syncope or falls. States he has a slight chronic cough but denies significant URI symptoms or shortness of breath at this point. States she has some chronic lower abdominal discomfort although not as severe as when she was here several months ago and has a cyst here that has been a chronic issue. Denies any nausea, vomiting, or diarrheal symptoms to me. States she is been having some cramps in her bilateral feet as well as some neuropathy issues in her feet as well as over the last day or 2 a little bit of neuropathy in her left hand. Patient denies significant weakness in her upper extremities. Patient states she contacted her doctor's office and came here for further evaluation today. She denies sick contact. REVIEW OF SYSTEMS: A total of 10 review of systems was obtained and negative except as stated above in the HPI. PAST MEDICAL HISTORY: As noted above MEDICATIONS: Reviewed home medication list. SOCIAL HISTORY: Patient states she lives at home with her son, former smoker PHYSICAL EXAM: GENERAL: alert and oriented on the stretcher in no severe distress. Head: normocephalic and atraumatic EYES: No injection, discharge or icterus. NECK: Trachea midline. Supple. ENT: Mucous membranes pink and moist. LUNGS: Airway patent. No retractions. Breath sounds clear HEART: Regular rate and rhythm. No chest wall tenderness ABDOMEN: Soft with some lower abdominal wall tenderness but no peritonitis. No significant flank or upper abdominal tenderness appreciated. No overlying skin changes noted here. : With RN supervisor white sugar present, a small erythematous slightly fluctuant area in the right angular and vulvar region as well as a small left gluteal fold erythematous and slightly tender area both less than 8 mm were appreciated. There is no pustular head appreciated on these or active draining noted. There is no crepitus in the area and there is no black or necrotic skin changes noted. There is evidence of prior overlying healing skin wounds and folliculitis/boils. SKIN: Acyanotic, warm, dry. EXTREMITIES: No significant lower extremity swelling. Patient feels gross touch in the bilateral feet and has 2+ bilateral DP pulses. No overlying erythema appreciated in this area or obvious deformity. No significant tenderness or deformity bilateral knees appreciated. NEUROLOGICAL: No aphasia. No facial droop or slurred speech. Patient states some slight decrease sensation in the left fingers/hand as well as some bilateral decreased sensation in the feet. Patient feels gross touch over both these areas. EK bpm sinus tachycardia without PVC or PAC. No acute ST segment elevation noted with T wave inversions evident and lead I and aVL with some slight ST depression in lead I. Compared to previous from November 27 of this year lead I, aVL T wave inversion and changes do appear new. QTC is prolonged at 586. CONTINUOUS CARDIAC MONITORING: was ordered and showed a heart rate of 98-120s bpm in sinus tachycardia to normal sinus rhythm Patient's laboratory studies and imaging reviewed. Differential includes Infection, dehydration, metabolic abnormality, hypo/hyperglycemia, electrolyte disturbance, anemia, hypoxia, cardiac sources, intracerebral event, toxicologic, neurologic, as well as other pathologies. IMPRESSION/MEDICAL DECISION MAKING: Patient presents with polyuria, polydipsia, and elevated blood sugar with a history of difficult to control hyperglycemia. Given some additional IV fluids here and blood sugar was sent to the lab given it was reading high greater than 600 here on the [id number] meter. Unsure of exact etiology although the patient has had several skin boils that she is on doxycycline for. Will defer antimicrobial change at this time given that things have been improving. These appear healing and do not appear large enough or fluctuant to the area requiring drainage. Does not appear consistent with necrotizing fasciitis or deeper infection. Patient denies fever or significant URI symptoms but Covid testing was ordered. X-ray of the chest as well as the abdomen pelvis obtained. Patient's chronic abdominal issues but denies significant nausea, vomiting, or diarrheal symptoms. Not acutely peritoneal. Completed a KUB here to exclude obvious signs of obstruction but symptoms do not seem that consistent with this. Doubt severe intra-abdominal pathology here at this point. Basic labs obtained and EKG. Patient appears to be in a sinus tachycardia without significant chest discomfort reported. Troponin was sent. Patient not significant hypoxic here or complaining of shortness of breath and lower suspicion at this time for pneumonia or pulmonary embolism. Patient does complain of some slight numbness her left hand although no other significant associated acute neurological symptoms and low suspicion at this time for acute CVA or intracranial abnormality; believe is likely related to her metabolic abnormalities. Blood work without significant anemia or leukocytosis. INR is therapeutic. Blood sugar elevated 635. Lactate significantly elevated 8.8 as well as evidence of acute kidney injury creatinine elevated 1.32. Anion gap 16 is noted. No significant acidosis on VBG. Hypokalemia of 2.7 noted with pseudohyponatremia 131. Did order several liters IV fluid. Potassium riders ordered prior to considering the initiation of additional insulin given her QTC prolongation with hypokalemia and hypomagnesemia. Troponin undetectable and believe EKG changes are related to electrolyte abnormalities. TSH within normal limits. Patient was in agreement with the plan for further inpatient care. Complained of again pain in her feet that are cramping as well as her chronic abdominal issues and given a small amount of morphine. Hospitalist contacted. DIAGNOSIS: Hyperglycemia secondary to type 2 diabetes, elevated lactate, hypokalemia, hypomagnesemia DISPOSITION: Hospitalist will evaluate Patient was agreeable with this plan. Past Med/Surg History Medical History Abdominal pain Acute hyperglycemia Anxiety Brain cyst Chest pain Chronic low back pain with left-sided sciatica Chronic obstructive pulmonary disease Dental abscess Depression Emphysema of lung Encounter for pre-operative examination Hx of blood clots Hyperglycemia Hypertension Hyponatremia Insulin dependent diabetes mellitus Lightheadedness Medication reaction Obesity Opioid abuse Periapical abscess with facial involvement Pulmonary embolism Reports was anticoagulation x 60 days, not on chronic anticoagulation Syncope Thrombocytopenia Tinea corporis Tinea cruris Uncontrolled type 2 diabetes mellitus Surgical History History of laparoscopic cholecystectomy Hx of oral surgery (02/15/20) Acute right submandibular, submental space infection with floor of mouth infection caused by infected lower teeth. Dr. Rios 02/15/20 S/P dilation and curettage S/P laparoscopic hernia repair S/P laparoscopic procedure ovarian cyst surgery Family History Mother , 73 Heart disease Cancer Father Skin cancer Brother No problems noted. Sister No problems noted. Grandmother (Maternal) , 48 Heart disease T2DM (type 2 diabetes mellitus) Grandmother (Paternal) , 83 Heart disease Kidney disease Uncle T2DM (type 2 diabetes mellitus) Other Diabetes Obesity Denies family history of Ovarian cancer Breast cancer Colorectal cancer Uterine cancer Social History Smoking Status: Former smoker Tobacco Type: Cigarettes Cigarettes Per Day: 5; Smoking End Date: 11/26/2020; Second Hand Exposure: Yes; Hx Alcohol Use: No Hx Substance Use: No Preferred Language: Arabic Communication Ability: Effective Visual Impairment: No Limitations Hearing Ability: Normal Sample Mounter Required: No Beliefs That Will Affect Care: None marital status: Current Living Situation: Family Current Living Situation Comment: Lives with son (14 yo) current occupational status: unemployed How many Children do You have: 1 Feels Safe at Home: Yes Safety Concerns: Feels Safe At This Time Assistive Devices: None Allergies Allergies Allergy/AdvReac Type Severity Reaction Status Date / Time cephalexin AdvReac Severe Vomiting Verified 01/27/21 16:59 acetaminophen AdvReac Unknown Other Verified 01/27/21 16:59 levofloxacin [From Levaquin] AdvReac Unknown Vomiting Verified 01/27/21 16:59 Home Meds Home Medications Medication Instructions Recorded Confirmed cyclobenzaprine 10 mg PO BID PRN #0 11/18/17 01/27/21 gabapentin 1,200 mg PO TID #0 tab 11/18/17 01/27/21 albuterol sulfate [Ventolin HFA] 2 puff INHALATION Q4H PRN #0 02/10/18 01/27/21 diclofenac sodium [Voltaren] 4 g TOPICAL QID PRN 01/05/19 01/27/21 ibuprofen 800 mg PO TID PRN 10/24/19 01/27/21 promethazine 25 mg PO Q6H PRN 10/24/19 01/27/21 Trulicity 1.5 mg SUBCUT WK 05/19/20 01/27/21 fluticasone propion-salmeterol 2 inh INHALATION BID 08/21/20 01/27/21 insulin aspart U-100 [Novolog 12 unit SC ACHS 08/21/20 01/27/21 Flexpen U-100 Insulin] montelukast 10 mg tablet 10 mg PO QPM 09/01/20 01/27/21 aspirin 81 mg PO QAM 10/28/20 01/27/21 Lantus Solostar U-100 Insulin 45 unit SUBCUT AMPM 11/26/20 01/27/21 Previous Rx's Medication Instructions Recorded oxycodone-acetaminophen 10 mg-325 1 tab PO Q6H PRN #20 tab 02/11/20 mg tablet oxycodone 5 mg PO BID PRN #0 tab 11/14/20 Results & Data (ED) Vital Signs Vital Signs - 24 hr 01/27/21 16:06 01/27/21 16:18 01/27/21 16:21 Temperature 37.5 C Temperature Source Oral Pulse Rate 130 H 127 H Pulse Rate from SpO2 Sensor 130 H Pulse Rhythm Regular Pulse Strength Normal Respiratory Rate 28 H 20 Respiratory Effort / Characteristics Non-Labored Spontaneous Respiratory Depth Normal Respiratory Pattern Regular Blood Pressure 129/86 129/86 Blood Pressure Mean 100 100 Blood Pressure Position Sitting Pulse Oximetry 96 94 94 Oxygen Delivery Method Room Air Sepsis Recent Fever Within 48 Hours No Sepsis New/Unexplained Change in Mental Status No Sepsis Action Taken by Nursing No Action Required 01/27/21 17:00 01/27/21 17:43 01/27/21 18:01 Temperature Temperature Source Pulse Rate 118 H 119 H 116 H Pulse Rate from SpO2 Sensor 118 H 119 H 116 H Pulse Rhythm Pulse Strength Respiratory Rate 15 18 20 Respiratory Effort / Characteristics Respiratory Depth Respiratory Pattern Blood Pressure 159/122 H 154/75 H Blood Pressure Mean 134 101 Blood Pressure Position Pulse Oximetry 96 97 96 Oxygen Delivery Method Sepsis Recent Fever Within 48 Hours Sepsis New/Unexplained Change in Mental Status Sepsis Action Taken by Nursing 01/27/21 18:30 Temperature Temperature Source Pulse Rate 113 H Pulse Rate from SpO2 Sensor 113 H Pulse Rhythm Pulse Strength Respiratory Rate 18 Respiratory Effort / Characteristics Respiratory Depth Respiratory Pattern Blood Pressure 125/105 H Blood Pressure Mean 111 Blood Pressure Position Pulse Oximetry 97 Oxygen Delivery Method Sepsis Recent Fever Within 48 Hours Sepsis New/Unexplained Change in Mental Status Sepsis Action Taken by Nursing Laboratory Data Result diagrams: 01/27/21 16:13 01/27/21 17:17 Lab Results 01/27/21 01/27/21 01/27/21 Range/Units 16:09 16:13 16:13 WBC 7.21 (4.8-10.8) K/uL RBC 4.39 (4.2-5.4) M/uL Hgb 14.3 (12.0-16.0) g/dL Hct 40.1 (37-47) % MCV 91.3 (80-100) fL MCH 32.6 (25-34) pg MCHC 35.7 (32-36) g/dL RDW Std Deviation 44.7 (36.4-46.3) fL RDW Coeff of [place] 13.5 (11.5-14.5) % Plt Count 141 (130-400) K/uL MPV 12.1 H (7.4-10.4) fL Immature Gran % (Auto) 0.1 % Neut % (Auto) 68.8 % Lymph % (Auto) 23.0 % [place] % (Auto) 7.2 % Eos % (Auto) 0.8 % Baso % (Auto) 0.1 % Neut # (Auto) 4.95 (1.4-6.5) K/uL Lymph # (Auto) 1.66 (1.2-3.4) K/uL [place] # (Auto) 0.52 (0.11-0.59) K/uL Eos # (Auto) 0.06 (0-0.5) K/uL Baso # (Auto) 0.01 (0-0.2) K/uL Immature Gran # (Auto) 0.01 (0.00-0.02) K/uL PT 10.6 (9.0-12.0) Seconds INR 1.0 (0.9-1.1) VBG pH (7.36-7.41) VBG pCO2 (38-50) mmHg VBG pO2 mmHg VBG HCO3 mmol/L VBG O2 Saturation % VBG Base Excess mEq/L Barometric Pressure mm/Hg Sodium (136-145) mmol/L Potassium (3.5-5.1) mmol/L Chloride (98-107) mmol/L Carbon Dioxide (21-32) mmol/L Anion Gap (3-11) BUN (7-18) mg/dl Creatinine (0.6-1.2) mg/dl Est Cr Clr Drug Dosing ml/min Est GFR ( Amer) Est GFR (Non-Af Amer) BUN/Creatinine Ratio (10-20) Glucose (70-99) mg/dl POC Glucose > 600 H* (70-99) mg/dl Lactate (0.4-2.0) mmol/L Calcium (8.5-10.1) mg/dl Phosphorus (2.5-4.9) mg/dl Magnesium (1.8-2.4) mg/dl Total Bilirubin (0.2-1) mg/dl AST (15-37) U/L ALT (12-78) U/L Alkaline Phosphatase (45-117) U/L Troponin I (0-0.045) ng/ml Total Protein (6.4-8.2) gm/dl Albumin (3.4-5.0) gm/dl Globulin (2.5-4.0) gm/dl Albumin/Globulin Ratio (0.9-2) Beta-Hydroxybutyric Acd TSH (0.300-4.500) uIu/ml Urine Color Urine Appearance (Clear) Urine pH (4.5-7.5) Ur Specific [place] (1.000-1.030) Urine Protein (Negative) Urine Glucose (UA) (Negative) Urine Ketones (Negative) Urine Blood (Negative) Urine Nitrite (Negative) Urine Bilirubin (Negative) Urine Urobilinogen (Negative) Ur Leukocyte Esterase (Negative) COVID-19 Eval Order SARS-CoV-2 (PCR) (Negative) Influenza Type A (PCR) (Neg) Influenza Type B (PCR) (Neg) RSV (RT-PCR) (Neg) 01/27/21 01/27/21 01/27/21 Range/Units 16:13 16:13 17:11 WBC (4.8-10.8) K/uL RBC (4.2-5.4) M/uL Hgb (12.0-16.0) g/dL Hct (37-47) % MCV (80-100) fL MCH (25-34) pg MCHC (32-36) g/dL RDW Std Deviation (36.4-46.3) fL RDW Coeff of Kelli (11.5-14.5) % Plt Count (130-400) K/uL MPV (7.4-10.4) fL Immature Gran % (Auto) % Neut % (Auto) % Lymph % (Auto) % [place] % (Auto) % Eos % (Auto) % Baso % (Auto) % Neut # (Auto) (1.4-6.5) K/uL Lymph # (Auto) (1.2-3.4) K/uL [place] # (Auto) (0.11-0.59) K/uL Eos # (Auto) (0-0.5) K/uL Baso # (Auto) (0-0.2) K/uL Immature Gran # (Auto) (0.00-0.02) K/uL PT (9.0-12.0) Seconds INR (0.9-1.1) VBG pH 7.36 (7.36-7.41) VBG pCO2 31 L (38-50) mmHg VBG pO2 48 mmHg VBG HCO3 17 mmol/L VBG O2 Saturation 84.7 % VBG Base Excess -6.7 mEq/L Barometric Pressure 727.7 mm/Hg Sodium 131 L (136-145) mmol/L Potassium (3.5-5.1) mmol/L Chloride 100 (98-107) mmol/L Carbon Dioxide 15 L (21-32) mmol/L Anion Gap 16.0 H (3-11) BUN 4 L (7-18) mg/dl Creatinine 1.32 H (0.6-1.2) mg/dl Est Cr Clr Drug Dosing 61.5 ml/min Est GFR ( Amer) 53.6 Est GFR (Non-Af Amer) 46.3 BUN/Creatinine Ratio 2.7 L (10-20) Glucose 635 H* (70-99) mg/dl POC Glucose (70-99) mg/dl Lactate 8.8 H* (0.4-2.0) mmol/L Calcium 8.8 (8.5-10.1) mg/dl Phosphorus 2.3 L (2.5-4.9) mg/dl Magnesium (1.8-2.4) mg/dl Total Bilirubin 0.4 (0.2-1) mg/dl AST (15-37) U/L ALT 31 (12-78) U/L Alkaline Phosphatase 159 H (45-117) U/L Troponin I < 0.015 (0-0.045) ng/ml Total Protein 7.5 (6.4-8.2) gm/dl Albumin 3.2 L (3.4-5.0) gm/dl Globulin 4.3 H (2.5-4.0) gm/dl Albumin/Globulin Ratio 0.7 L (0.9-2) Beta-Hydroxybutyric Acd Cancelled TSH 0.948 (0.300-4.500) uIu/ml Urine Color Urine Appearance (Clear) Urine pH (4.5-7.5) Ur Specific [place] (1.000-1.030) Urine Protein (Negative) Urine Glucose (UA) (Negative) Urine Ketones (Negative) Urine Blood (Negative) Urine Nitrite (Negative) Urine Bilirubin (Negative) Urine Urobilinogen (Negative) Ur Leukocyte Esterase (Negative) COVID-19 Eval Order SARS-CoV-2 (PCR) (Negative) Influenza Type A (PCR) (Neg) Influenza Type B (PCR) (Neg) RSV (RT-PCR) (Neg) 01/27/21 01/27/21 01/27/21 Range/Units 17:11 17:17 17:35 WBC (4.8-10.8) K/uL RBC (4.2-5.4) M/uL Hgb (12.0-16.0) g/dL Hct (37-47) % MCV (80-100) fL MCH (25-34) pg MCHC (32-36) g/dL RDW Std Deviation (36.4-46.3) fL RDW Coeff of Kelli (11.5-14.5) % Plt Count (130-400) K/uL MPV (7.4-10.4) fL Immature Gran % (Auto) % Neut % (Auto) % Lymph % (Auto) % [place] % (Auto) % Eos % (Auto) % Baso % (Auto) % Neut # (Auto) (1.4-6.5) K/uL Lymph # (Auto) (1.2-3.4) K/uL [place] # (Auto) (0.11-0.59) K/uL Eos # (Auto) (0-0.5) K/uL Baso # (Auto) (0-0.2) K/uL Immature Gran # (Auto) (0.00-0.02) K/uL PT (9.0-12.0) Seconds INR (0.9-1.1) VBG pH (7.36-7.41) VBG pCO2 (38-50) mmHg VBG pO2 mmHg VBG HCO3 mmol/L VBG O2 Saturation % VBG Base Excess mEq/L Barometric Pressure mm/Hg Sodium 135 L (136-145) mmol/L Potassium 2.7 L 2.7 L (3.5-5.1) mmol/L Chloride 105 (98-107) mmol/L Carbon Dioxide 15 L (21-32) mmol/L Anion Gap 14.0 H (3-11) BUN 3 L (7-18) mg/dl Creatinine 0.98 D (0.6-1.2) mg/dl Est Cr Clr Drug Dosing 82.9 ml/min Est GFR ( Amer) 76.9 Est GFR (Non-Af Amer) 66.3 BUN/Creatinine Ratio 3.4 L (10-20) Glucose 343 H* (70-99) mg/dl POC Glucose (70-99) mg/dl Lactate (0.4-2.0) mmol/L Calcium 9.4 (8.5-10.1) mg/dl Phosphorus (2.5-4.9) mg/dl Magnesium 1.6 L (1.8-2.4) mg/dl Total Bilirubin (0.2-1) mg/dl AST 25 (15-37) U/L ALT (12-78) U/L Alkaline Phosphatase (45-117) U/L Troponin I (0-0.045) ng/ml Total Protein (6.4-8.2) gm/dl Albumin (3.4-5.0) gm/dl Globulin (2.5-4.0) gm/dl Albumin/Globulin Ratio (0.9-2) Beta-Hydroxybutyric Acd 0.76 TSH (0.300-4.500) uIu/ml Urine Color Yellow Urine Appearance Clear (Clear) Urine pH 5.5 (4.5-7.5) Ur Specific [place] 1.031 H (1.000-1.030) Urine Protein Negative (Negative) Urine Glucose (UA) 3+ H (Negative) Urine Ketones Negative (Negative) Urine Blood Negative (Negative) Urine Nitrite Negative (Negative) Urine Bilirubin Negative (Negative) Urine Urobilinogen Negative (Negative) Ur Leukocyte Esterase Negative (Negative) COVID-19 Eval Order SARS-CoV-2 (PCR) (Negative) Influenza Type A (PCR) (Neg) Influenza Type B (PCR) (Neg) RSV (RT-PCR) (Neg) 01/27/21 01/27/21 Range/Units 17:40 17:40 WBC (4.8-10.8) K/uL RBC (4.2-5.4) M/uL Hgb (12.0-16.0) g/dL Hct (37-47) % MCV (80-100) fL MCH (25-34) pg MCHC (32-36) g/dL RDW Std Deviation (36.4-46.3) fL RDW Coeff of [place] (11.5-14.5) % Plt Count (130-400) K/uL MPV (7.4-10.4) fL Immature Gran % (Auto) % Neut % (Auto) % Lymph % (Auto) % [place] % (Auto) % Eos % (Auto) % Baso % (Auto) % Neut # (Auto) (1.4-6.5) K/uL Lymph # (Auto) (1.2-3.4) K/uL [place] # (Auto) (0.11-0.59) K/uL Eos # (Auto) (0-0.5) K/uL Baso # (Auto) (0-0.2) K/uL Immature Gran # (Auto) (0.00-0.02) K/uL PT (9.0-12.0) Seconds INR (0.9-1.1) VBG pH (7.36-7.41) VBG pCO2 (38-50) mmHg VBG pO2 mmHg VBG HCO3 mmol/L VBG O2 Saturation % VBG Base Excess mEq/L Barometric Pressure mm/Hg Sodium (136-145) mmol/L Potassium (3.5-5.1) mmol/L Chloride (98-107) mmol/L Carbon Dioxide (21-32) mmol/L Anion Gap (3-11) BUN (7-18) mg/dl Creatinine (0.6-1.2) mg/dl Est Cr Clr Drug Dosing ml/min Est GFR ( Amer) Est GFR (Non-Af Amer) BUN/Creatinine Ratio (10-20) Glucose (70-99) mg/dl POC Glucose (70-99) mg/dl Lactate (0.4-2.0) mmol/L Calcium (8.5-10.1) mg/dl Phosphorus (2.5-4.9) mg/dl Magnesium (1.8-2.4) mg/dl Total Bilirubin (0.2-1) mg/dl AST (15-37) U/L ALT (12-78) U/L Alkaline Phosphatase (45-117) U/L Troponin I (0-0.045) ng/ml Total Protein (6.4-8.2) gm/dl Albumin (3.4-5.0) gm/dl Globulin (2.5-4.0) gm/dl Albumin/Globulin Ratio (0.9-2) Beta-Hydroxybutyric Acd TSH (0.300-4.500) uIu/ml Urine Color Urine Appearance (Clear) Urine pH (4.5-7.5) Ur Specific [place] (1.000-1.030) Urine Protein (Negative) Urine Glucose (UA) (Negative) Urine Ketones (Negative) Urine Blood (Negative) Urine Nitrite (Negative) Urine Bilirubin (Negative) Urine Urobilinogen (Negative) Ur Leukocyte Esterase (Negative) COVID-19 Eval Order [facility]Rsv at [facility] SARS-CoV-2 (PCR) NEGATIVE (Negative) Influenza Type A (PCR) Negative (Neg) Influenza Type B (PCR) Negative (Neg) RSV (RT-PCR) Negative (Neg) Administered Medications Discontinued Medications Sodium Chloride (Nss 1000ml) 1,000 mls @ 999 mls/hr IV .Q1H1M YEN Stop: 01/27/21 17:15 Last Infusion: 01/27/21 17:34 Dose: 0 mls/hr Documented by: [id number] Admin: 01/27/21 16:33 Dose: 999 mls/hr Documented by: [id number] Lactated Ringer's (Lr) 1,000 mls @ 999 mls/hr IV .Q1H1M ONE Stop: 01/27/21 18:04 Last Admin: 01/27/21 19:30 Dose: 999 mls/hr Documented by: [id number] Sodium Chloride (Nss 1000ml) 1,000 mls @ 999 mls/hr IV .Q1H1M ONE Stop: 01/27/21 18:04 Last Infusion: 01/27/21 18:45 Dose: 0 mls/hr Documented by: [id number] Admin: 01/27/21 17:44 Dose: 999 mls/hr Documented by: [id number] Potassium Chloride (K Kyle / Wtr) 10 meq in 100 mls @ 100 mls/hr IV Q1H YEN Stop: 01/27/21 19:44 Last Admin: 01/27/21 20:03 Dose: 100 mls/hr Documented by: [id number] Infusion: 01/27/21 19:35 Dose: 100 mls/hr Documented by: [id number] Admin: 01/27/21 18:35 Dose: 100 mls/hr Documented by: [id number] Magnesium Sulfate/Dextrose (Magnesium Sulfate / D5w) 1 gm in 100 mls @ 200 mls/hr IV Q30M YEN Stop: 01/27/21 18:44 Last Admin: 01/27/21 20:03 Dose: 200 mls/hr Documented by: [id number] Infusion: 01/27/21 19:05 Dose: 200 mls/hr Documented by: [id number] Admin: 01/27/21 18:35 Dose: 200 mls/hr Documented by: [id number] Morphine Sulfate (Morphine Sulfate 4 Mg/Ml 1 Ml Carp\Vial) 4 mg IV NOW STA Stop: 01/27/21 17:34 Last Admin: 01/27/21 18:35 Dose: 4 mg Documented by: [id number] Potassium Chloride (Potassium Chloride Crtab 20 Meq Tabcr) 40 meq PO NOW STA Stop: 01/27/21 18:26 Last Admin: 01/27/21 20:03 Dose: 40 meq Documented by: [id number] Imaging Data Radiologist's Impression: KUB X-Ray 01/27/21 16:15 KUB CLINICAL HISTORY: Abdominal pain. COMPARISON STUDY: CT of the abdomen and pelvis September 25, 2021. FINDINGS: Cholecystectomy clips and intrauterine device are noted. The bowel gas pattern is normal. There is a moderate amount stool within the colon and rectum. There is no evidence for a bowel obstruction. IMPRESSION: 1. No evidence for a bowel obstruction. 2. Moderate amount stool within the colon and rectum. ACT 112: Negative or not required by law. Electronically signed by: Dani Cardona M.D. 01/27/2021 5:20 PM Chest X-Ray 01/27/21 16:17 XR chest 1V portable HISTORY: hyperglycemia, cramps, abd pain COMPARISON: Chest 11/26/2020. FINDINGS: The lungs are clear. Cardiac silhouette is normal in size. No pleural effusions. No pneumothorax. IMPRESSION: No acute process. ACT 112: Negative or not required by law. Electronically signed by: Luis F Mixon M.D. 01/27/2021 5:[address] 01/27/21 18:[address] DOSE: 537.48 mGy.cm HISTORY: NUMBNESS IN HAND TECHNIQUE: Multiaxial CT images of the head were performed without the use of intravenous contrast. Automated exposure control was utilized for this study. A dose lowering technique was utilized adhering to the principles of ALARA. Comparison: 11/12/2020. Findings: The paranasal sinuses and mastoid air cells are clear. The calvarium and skull base are intact. The ventricles and sulci are within normal limits. There is no mass, hematoma, midline shift, or acute infarct. Impression: No acute intracranial abnormality. ACT 112: Negative or not required by law. Electronically signed by: Luis F Mixon M.D. 01/27/2021 8:54 PM Discharge Plan Visit Data Chief Complaint: Hyperglycemia Stated Complaint: HYPERGYLCEMIA, WEAKNESS, TACHYCARDIA ED Provider: Ok Souza Discharge Problem: Hyperglycemia due to type 2 diabetes mellitus, Elevated lactic acid level, Boil of inguinal region, Hypokalemia, Hypomagnesemia Patient Disposition: Admitted As Inpatient Discharge Instructions Interventions: ED Discharge Assessment Last Done: 01/27/21 20:38 Discharge Problem: Hyperglycemia due to type 2 diabetes mellitus Qualifiers: Diabetes mellitus half-way insulin use: with half-way use Qualified Code(s): E11.65 - Type 2 diabetes mellitus with hyperglycemia
[2021-01-27 16:58] LABS: Alanine Aminotransferase 31 U/L (12-78); Albumin Globulin Ratio 0.7 (0.9-2); Albumin Level 3.2 gm/dl (3.4-5.0); Alkaline Phosphatase 159 U/L (45-117); BUN Creatinine Ratio 2.7 (10-20); Bilirubin,Total 0.4 mg/dl (0.2-1); Blood Urea Nitrogen 4 mg/dl (7-18); Calcium 8.8 mg/dl (8.5-10.1); Carbon Dioxide 15 mmol/L (21-32); Chloride 100 mmol/L (98-107); Creatinine Clr Calc Pharmacy 61.5 ml/min; Est GFR (African American) 53.6; Est GFR (Non-African American) 46.3; Globulin 4.3 gm/dl (2.5-4.0); Glucose 635 mg/dl (70-99); Phosphorus 2.3 mg/dl (2.5-4.9); Sodium 131 mmol/L (136-145); Thyroid Stimulating Hormone 0.948 uIu/ml (0.300-4.500); Total Protein 7.5 gm/dl (6.4-8.2); Troponin I < 0.015 ng/ml (0-0.045)
[2021-01-27] MEDS ORDERED: SODIUM CHLORIDE 0.9% 1000ML 1,000 ML IV ONE (17:04)
[2021-01-27] MEDS ORDERED: LACTATED RINGER'S 1,000 ML IV ONE (17:04)
--- NOTE | 2021-01-27 17:21 | XRay Report ---
KUB CLINICAL HISTORY: Abdominal pain. COMPARISON STUDY: CT of the abdomen and pelvis September 25, 2021. FINDINGS: Cholecystectomy clips and intrauterine device are noted. The bowel gas pattern is normal. T here is a moderate amount stool within the colon and rectum. There is no evidence for a bowel obstruc tion. IMPRESSION: 1. No evidence for a bowel obstruction. 2. Moderate amount stool within the colon and rectum. ACT 112: Negative or not required by law. Electronically signed by: Dani Cardona M.D. 01/27/2021 5:20 PM
[2021-01-27 17:28] LABS: Base Excess VBG -6.7 mEq/L; Oxygen Saturation VBG 84.7 %; pH VBG 7.36 (7.36-7.41)
--- NOTE | 2021-01-27 17:28 | XRay Report ---
XR chest 1V portable HISTORY: hyperglycemia, cramps, abd pain COMPARISON: Chest 11/26/2020. FINDINGS: The lungs are clear. Cardiac silhouette is normal in size. No pleural effusions. No pneumot horax. IMPRESSION: No acute process. ACT 112: Negative or not required by law. Electronically signed by: Luis F Mixon M.D. 01/27/2021 5:27 PM
[2021-01-27] MEDS ORDERED: MoRPHine SULFATE 4 MG/ML 1 ML CARP\\VIAL IV STA (17:33)
[2021-01-27 17:34] LABS: Potassium 2.7 mmol/L (3.5-5.1)
[2021-01-27 17:40] LABS: Beta-Hydroxybutyrate 0.76 mg/dl (0.2-2.81); Magnesium 1.6 mg/dl (1.8-2.4)
[2021-01-27 17:47] LABS: Appearance Urine Clear (Clear); Bilirubin Urine Negative (Negative); Blood Urine Negative (Negative); Color Urine Yellow; Glucose Urine UA 3+ (Negative); Ketones Urine Negative (Negative); Leukocyte Esterase Urine Negative (Negative); Nitrite Urine Negative (Negative); Protein Urine Negative (Negative); Specific Gravity Urine 1.031 (1.000-1.030); Urobilinogen Urine Negative (Negative); pH Urine 5.5 (4.5-7.5)
[2021-01-27] MEDS ORDERED: POTASSIUM CHLORIDE CRTAB 20 MEQ TABCR PO STA (18:25)
[2021-01-27] MEDS ORDERED: INSULIN REGULAR 250 UNITS in SODIUM CHLORIDE 0.9% 247.5 ML IV SCH (18:30)
[2021-01-27 18:33] LABS: Influenza A virus by PCR Negative (Neg); Influenza B virus by PCR Negative (Neg); RSV by PCR Negative (Neg); SARS CoV2 RNA(COVID-19) InHosp NEGATIVE (Negative)
[2021-01-27] MEDS: MAGNESIUM SULFATE / D5W 1 GM/100 ML BAG IV SCH ×2 (18:35→20:03)
[2021-01-27] MEDS: POTASSIUM CHLORIDE / WTR 10 MEQ/100 ML PLCT IV SCH ×3 (18:35→23:11)
--- NOTE | 2021-01-27 18:41 | History & Physical Report ---
Date of Service January 27, 2021 Assessment & Plan (1) Hyperglycemia: Admit to telemetry floor for monitoring - insulin drip management per protocol with pharmacy consultation for glycemic management - IVF - NS w/ K+ - replete electrolytes - Mg, K - trend BMP Present on Admission?: Yes (2) Insulin dependent diabetes mellitus: - holding home regimen - insulin management as noted - likely to resume home regimen on discharge - DM educator Present on Admission?: Yes (3) Left hand paresthesia: - CT head to r/o acute change - consider MRI based on results and symptom changes Present on Admission?: Yes (4) Cellulitis of groin: likely 2/2 pressure ulcer stage 1-2 of the right buttock, on day 5 of doxycycline PO - start IV ceftriaxone - d/c doxycycline - monitor for fevers - wound care consultation Present on Admission?: Yes (5) Pressure ulcer of buttock: as above (6) Chronic generalized abdominal pain: - outpatient pain contract w/ Dr. Pérez - BID oxycodone 5mg re-evaluated q2 wks - pain management w/ morphine PRN as noted, transition to oxy tomorrow presuming appetite returns Present on Admission?: Yes (7) Opioid abuse: as above. Present on Admission?: Yes History of Present Illness 50 y/o female h/o DMII, uncontrolled presents with 3 days of progressively worsening fatigue in the setting of hyperglycemia and recent infection on d oxycycline. She reports that she hasn't had any POI for the last 3 days (some pickles) and has drank very little water. She has been taking her basal insulin as prescribed despite the decreased POI and is working on coverage as noted. Her ongoing cellulitis, likely as a corrolary of pressure wounds, is improving on doxycycline but she has not had wound care evaluation as yet. She also reports intermittent qHS foot cramping which she reports happens with hyperglycemia intermittently. Last evening she developed left hand paresthesias which are new for her, left hand from the wrist, ?1st 4 digits. She reports no fever, chills, cough, congestion, nausea/vomiting, other skin changes, MCNULTY, vision changes, hearing changes. Primary Care Provider: Aneudy Pérez MD Allergies Allergy/AdvReac Type Severity Reaction Status Date / Time cephalexin AdvReac Severe Vomiting Verified 01/27/21 16:59 acetaminophen AdvReac Unknown Other Verified 01/27/21 16:59 levofloxacin [From Levaquin] AdvReac Unknown Vomiting Verified 01/27/21 16:59 Home Medications Medication Instructions Recorded Confirmed Type cyclobenzaprine 10 mg PO BID PRN #0 11/18/17 01/27/21 History gabapentin 1,200 mg PO TID #0 tab 11/18/17 01/27/21 History albuterol sulfate [Ventolin HFA] 2 puff INHALATION Q4H PRN #0 02/10/18 01/27/21 History diclofenac sodium [Voltaren] 4 g TOPICAL QID PRN 01/05/19 01/27/21 History ibuprofen 800 mg PO TID PRN 10/24/19 01/27/21 History promethazine 25 mg PO Q6H PRN 10/24/19 01/27/21 History oxycodone-acetaminophen 10 mg-325 1 tab PO Q6H PRN #20 tab 02/11/20 Rx mg tablet Trulicity 1.5 mg SUBCUT WK 05/19/20 01/27/21 History fluticasone propion-salmeterol 2 inh INHALATION BID 08/21/20 01/27/21 History insulin aspart U-100 [Novolog 12 unit SC ACHS 08/21/20 01/27/21 History Flexpen U-100 Insulin] montelukast 10 mg tablet 10 mg PO QPM 09/01/20 01/27/21 History aspirin 81 mg PO QAM 10/28/20 01/27/21 History oxycodone 5 mg PO BID PRN #0 tab 11/14/20 01/27/21 Rx Lantus Solostar U-100 Insulin 45 unit SUBCUT AMPM 11/26/20 01/27/21 History Past Med/Surg History Medical History Abdominal pain Acute hyperglycemia Anxiety Brain cyst Chest pain Chronic low back pain with left-sided sciatica Chronic obstructive pulmonary disease Dental abscess Depression Emphysema of lung Encounter for pre-operative examination Hx of blood clots Hyperglycemia Hypertension Hyponatremia Insulin dependent diabetes mellitus Lightheadedness Medication reaction Obesity Opioid abuse Periapical abscess with facial involvement Pulmonary embolism Reports was anticoagulation x 60 days, not on chronic anticoagulation Syncope Thrombocytopenia Tinea corporis Tinea cruris Uncontrolled type 2 diabetes mellitus Surgical History History of laparoscopic cholecystectomy Hx of oral surgery (02/15/20) Acute right submandibular, submental space infection with floor of mouth infection caused by infected lower teeth. Dr. Rios 02/15/20 S/P dilation and curettage S/P laparoscopic hernia repair S/P laparoscopic procedure ovarian cyst surgery Family History Mother , 73 Heart disease Cancer Father Skin cancer Brother No problems noted. Sister No problems noted. Grandmother (Maternal) , 48 Heart disease T2DM (type 2 diabetes mellitus) Grandmother (Paternal) , 83 Heart disease Kidney disease Uncle T2DM (type 2 diabetes mellitus) Other Diabetes Obesity Denies family history of Ovarian cancer Breast cancer Colorectal cancer Uterine cancer Social History Smoking Status: Former smoker Tobacco Type: Cigarettes Cigarettes Per Day: 5; Second Hand Exposure: Yes; Hx Alcohol Use: No Hx Substance Use: Yes Last Used Substance: Hours (ago) Preferred Language: Yi Communication Ability: Effective Visual Impairment: No Limitations Hearing Ability: Normal Pet Technologist Required: No Beliefs That Will Affect Care: None marital status: Current Living Situation: Alone Current Living Situation Comment: son 1/2 the time current occupational status: unemployed How many Children do You have: 1 Feels Safe at Home: Yes Assistive Devices: None Review of Systems Constitutional: no fever, no chills and no sweats Eyes: no dry eyes and no eye pain Ear, Nose, Mouth, Throat: no ear pain, no hearing loss, no nasal congestion, no mouth lesions and no dental pain Respiratory: no cough and no dyspnea Cardiovascular: no chest pain, no palpitations and no edema Gastrointestinal: + abdominal pain; no nausea and no vomiting Genitourinary: no dysuria and no urinary urgency Integumentary: + lesions Neurologic: + numbness; no paralysis Psychiatric: no behavioral changes, no suicidal ideation and no homicidal ideation Endocrine: + fatigue and + polydipsia Physical Exam Constitutional: + obese and + disheveled Eyes: PERRL, conjunctivae normal, anicteric sclerae ENMT: external ear and nose normal, oropharynx normal Neck: trachea midline, no thyromegaly Respiratory: normal respiratory effort, lungs clear to auscultation Cardiovascular: Rate/Rhythm: + tachycardic Heart Sounds: normal S1 and normal S2 Gastrointestinal (Abdomen): Percussion/Palpation: + abdomen tender (over periumbilical region, chronic) and abdomen soft Skin: + wound (bilateral posterior perineum pressure appearing wound with improved celluit) Neurologic: PERRL, EOMI, accommodation nl, no face palsy, no dysarthria CN's II-XI intact bilaterally Psychiatric: A+Ox3, euthymic affect Results & Data Results & Data ([facility]) Vital Signs (Past 12 Hours) Vital Signs Temp Pulse Resp BP Pulse Ox 01/27/21 16:21 94 01/27/21 16:18 37.5 C 127 H 20 129/86 94 (1) Pressure ulcer of buttock Pressure injury stage: stage 1
[2021-01-27 19:38] LABS: BUN Creatinine Ratio 3.4 (10-20); Calcium 9.4 mg/dl (8.5-10.1); Creatinine Clr Calc Pharmacy 82.9 ml/min; Est GFR (African American) 76.9; Est GFR (Non-African American) 66.3; Potassium 2.7 mmol/L (3.5-5.1)
--- NOTE | 2021-01-27 20:55 | CT Scan Report ---
HEAD CT NONCONTRAST CT DOSE: 537.48 mGy.cm HISTORY: NUMBNESS IN HAND TECHNIQUE: Multiaxial CT images of the head were performed without the use of intravenous contrast. A utomated exposure control was utilized for this study. A dose lowering technique was utilized adheri ng to the principles of ALARA. Comparison: 11/12/2020. Findings: The paranasal sinuses and mastoid air cells are clear. The calvarium and skull base are int act. The ventricles and sulci are within normal limits. There is no mass, hematoma, midline shift, or acute infarct. Impression: No acute intracranial abnormality. ACT 112: Negative or not required by law. Electronically signed by: Luis F Mixon M.D. 01/27/2021 8:54 PM
[2021-01-27] MEDS ORDERED: INSULIN GLARGINE SOLOSTAR 100 UNITS/ML 3 ML PEN SC SCH (21:00)
[2021-01-27] MEDS ORDERED: INSULIN ASPART 100 UNITS/ML 3 ML PEN SC SCH (21:00)
[2021-01-27] MEDS ORDERED: PHARMACY GLYCEMIC MGMT CONSULT PRN (21:30)
[2021-01-27] MEDS ORDERED: GLUCOSE 40% GEL 15 GM TUBE PO PRN (23:00)
[2021-01-27] MEDS ORDERED: GLUCOSE 10 TABS/TUBE PO PRN (23:00)
[2021-01-27] MEDS ORDERED: GLUCAGON FOR INJ 1 MG VIAL IM PRN (23:00)
[2021-01-27] MEDS ORDERED: CARBOHYDRATES FOR HYPOGLYCEMIA PO PRN (23:00)
[2021-01-27] MEDS ORDERED: DEXTROSE 50% 50 ML SYRINGE IV PRN (23:00)
[2021-01-27] MEDS: GABAPENTIN 600 MG TAB PO SCH (23:10)
[2021-01-27] MEDS: oxyCODONE HCL IR 5 MG TAB (IMMEDIATE RELEASE) PO PRN (23:10)
[2021-01-27] MEDS: NORMOSOL-R 1,000 ML IV SCH (23:11)
[2021-01-27 23:12] LABS: BUN Creatinine Ratio 3.4 (10-20); Calcium 8.9 mg/dl (8.5-10.1); Creatinine Clr Calc Pharmacy 136.1 ml/min; Est GFR (African American) 120.8; Est GFR (Non-African American) 104.2; Magnesium 1.9 mg/dl (1.8-2.4); Potassium 3.1 mmol/L (3.5-5.1)
[2021-01-27] MEDS: cefTRIAXone SODIUM 2,000 MG in DEXTROSE 5% 50 ML IV SCH (23:12)
[2021-01-27 23:28] LABS: Phosphorus 3.4 mg/dl (2.5-4.9)
[2021-01-28] MEDS ORDERED: INSULIN GLARGINE SOLOSTAR 100 UNITS/ML 3 ML PEN SC ONE ×2 (00:15→08:00)
[2021-01-28] MEDS: POTASSIUM CHLORIDE / WTR 10 MEQ/100 ML PLCT IV SCH ×3 (00:17→02:41)
[2021-01-28] MEDS: INSULIN ASPART 100 UNITS/ML 3 ML PEN SC SCH ×7 (00:46→23:53)
[2021-01-28 03:26] LABS: BUN Creatinine Ratio 5.8 (10-20); Calcium 8.1 mg/dl (8.5-10.1); Creatinine Clr Calc Pharmacy 145.3 ml/min; Est GFR (African American) 123.5; Est GFR (Non-African American) 106.6; Magnesium 1.8 mg/dl (1.8-2.4); Phosphorus 3.2 mg/dl (2.5-4.9)
[2021-01-28 05:52] LABS: Estimated Average Glucose 321 mg/dl; Hemoglobin A1C 12.8 % (4.5-5.6)
[2021-01-28] MEDS ORDERED: PENDING 1/2NSS+40mEq KCL IVF SCH (06:00)
[2021-01-28] MEDS ORDERED: PENDING D5 1/2NS+40mEq KCL IVF SCH (06:00)
[2021-01-28] MEDS: NORMOSOL-R 1,000 ML IV SCH ×4 (06:35→23:30)
[2021-01-28] MEDS: FLUTICASONE/VILANTEROL 200/25MCG 14 PUFFS/INHALER INH SCH (07:21)
[2021-01-28] MEDS: GABAPENTIN 600 MG TAB PO SCH ×3 (07:21→19:30)
[2021-01-28 07:39] LABS: BUN Creatinine Ratio 6.9 (10-20); Calcium 7.9 mg/dl (8.5-10.1); Creatinine Clr Calc Pharmacy 145.3 ml/min; Est GFR (African American) 123.5; Est GFR (Non-African American) 106.6; Magnesium 1.9 mg/dl (1.8-2.4); Phosphorus 2.5 mg/dl (2.5-4.9); Potassium 3.8 mmol/L (3.5-5.1)
[2021-01-28 07:50] LABS: Beta-Hydroxybutyrate 0.65 mg/dl (0.2-2.81)
--- NOTE | 2021-01-28 09:29 | Hospitalist Progress Note ---
Date of Service January 28, 2021 Assessment & Plan (1) Hyperglycemia due to type 2 diabetes mellitus: 50 yo F w/ hx IDDM admitted for hyperglycemia and lethargy. Abdominal Pain - likely secondary to constipation +/- GERD - KUB showing moderate stool in colon and rectum - miralax TID scheduled - continue famotidine, added sucralfate QID - promethazine PRN for nausea Chest tightness: Costochondritis - no EKG changes, exertional or resting chest pain - only with deep breaths - sternal wall TTP, will start anti-inflammatory regimen with ibuprofen and tordol IDDM2 - pharmacy consult - took 120u novolog prior to coming to ER on 01/27 - normally takes 45u lantus BID with aspart 12u Peripheral Neuropathy - 1200 mg gabapentin PO TID [place] - cont voltaren gel, cyclobenzaprine, oxycodone 5 mg BID CAD prevention - daily aspirin DVT ppx: heparin sq FEN/GI: DM2, carafate, famotidine, normosol 150cc/hr Code status: Full code Dispo: Telemetry (2) Elevated lactic acid level: (3) Hypokalemia: (4) Hypomagnesemia: (5) Pressure ulcer of buttock: (6) Liver cirrhosis: (7) Morbid obesity with BMI of 40.0-44.9, adult: Admission and Anticipated Discharge Date Admission Date: January 27, 2021 Supervising Physician Co-Signing Physician Notes Attending attestation Pt seen and examined in concert with Dr. Nuñez. In agreement with the documented findings as noted in the resident documentation with any exceptions or additions as noted here. Improved feeling of fatigue with persistent buttock pain with pressure ulceratio n and surrounding cellulitis. Ongoing chronic lower abdominal pain relatively unchanged from previous. On examination, S1/S2 nl RRR no MCG. CTAB. Abd NT/ND BS+ve Uncontrolled type 2 DM with hyperglycemia, A1c > 12% - continue glycemic management consultation and monitor. Ongoing counseling re: need to maintain PO intake in the setting of insulin use. Constipation - cited by patient as cause of decreased POI - bowel regimen with education for rapidly escalating bowel regimen at home to prevent these episodes ongoing Stage 1-2 pressure ulcer with cellulitis, POA - continue Rocephin for now, wound care consultation. Else see resident documentation as noted. Subjective CC of abdominal pain, hyperglycemia. Started feeling abdominal fullness end of last week, stopped eating and drinking as much. Denies nausea that required promethazine. Has been using 2 caps of miralax daily but infrequent bowel movements. Some anterior chest pain with deep breaths. Some stomach burning/reflux over the weekend that improved with famotidine BID. Review of Systems Review of Systems: All systems reviewed & are unremarkable except as noted in Subjective Physical Exam Physical Exam: Constitutional: obese, appearing somewhat uncomfortable, laying down in bed. Eyes: EOMI, pupils equal and reactive bilaterally, no scleral icterus Cardiac: RRR, no murmurs, gallops or rubs. Normal S1, S2 Pulm: CTA BL, no wheezes, rhonchi, crackles or rubs, moving air well throughout both lungs Abd: soft, large pannus, mildly tender at epigastric area, very tender to palpation at left lower + right lower+ suprapubic area. Hyperactive bowel sounds, no rebound or guarding Extremities: 2+ peripheral pulses, no edema Neuro: no focal deficits, moving all 4 limbs, A&Ox3 Results & Data Results & Data ([facility]) Vital Signs (Past 12 Hours) Vital Signs Temp Pulse Resp BP BP Pulse Ox 01/28/21 07:17 37.0 C 87 19 100/67 94 01/28/21 03:25 36.4 C L 98 H 18 112/77 98 01/27/21 23:20 36.3 C L 105 H 19 118/67 100 01/27/21 21:40 36.6 C 109 H 18 128/79 95 Laboratory Results WBC 7.21 K/uL (4.8-10.8) 01/27/21 16:13 RBC 4.39 M/uL (4.2-5.4) 01/27/21 16:13 Hgb 14.3 g/dL (12.0-16.0) 01/27/21 16:13 Hct 40.1 % (37-47) 01/27/21 16:13 MCV 91.3 fL (80-100) 01/27/21 16:13 MCH 32.6 pg (25-34) 01/27/21 16:13 MCHC 35.7 g/dL (32-36) 01/27/21 16:13 RDW Std Deviation 44.7 fL (36.4-46.3) 01/27/21 16:13 RDW Coeff of Kelli 13.5 % (11.5-14.5) 01/27/21 16:13 Plt Count 141 K/uL (130-400) 01/27/21 16:13 MPV 12.1 fL (7.4-10.4) H 01/27/21 16:13 Immature Gran % (Auto) 0.1 % 01/27/21 16:13 Neut % (Auto) 68.8 % 01/27/21 16:13 Lymph % (Auto) 23.0 % 01/27/21 16:13 [place] % (Auto) 7.2 % 01/27/21 16:13 Eos % (Auto) 0.8 % 01/27/21 16:13 Baso % (Auto) 0.1 % 01/27/21 16:13 Neut # (Auto) 4.95 K/uL (1.4-6.5) 01/27/21 16:13 Lymph # (Auto) 1.66 K/uL (1.2-3.4) 01/27/21 16:13 [place] # (Auto) 0.52 K/uL (0.11-0.59) 01/27/21 16:13 Eos # (Auto) 0.06 K/uL (0-0.5) 01/27/21 16:13 Baso # (Auto) 0.01 K/uL (0-0.2) 01/27/21 16:13 Immature Gran # (Auto) 0.01 K/uL (0.00-0.02) 01/27/21 16:13 PT 10.6 Seconds (9.0-12.0) 01/27/21 16:13 INR 1.0 (0.9-1.1) 01/27/21 16:13 VBG pH 7.39 (7.36-7.41) 01/28/21 06:42 VBG pCO2 31 mmHg (38-50) L 01/27/21 17:11 VBG pO2 48 mmHg 01/27/21 17:11 VBG HCO3 17 mmol/L 01/27/21 17:11 VBG O2 Saturation 84.7 % 01/27/21 17:11 VBG Base Excess -6.7 mEq/L 01/27/21 17:11 Barometric Pressure 727.7 mm/Hg 01/27/21 17:11 Sodium 137 mmol/L (136-145) 01/28/21 10:11 Potassium 3.5 mmol/L (3.5-5.1) 01/28/21 10:11 Chloride 109 mmol/L (98-107) H 01/28/21 10:11 Carbon Dioxide 24 mmol/L (21-32) 01/28/21 10:11 Anion Gap 4.0 (3-11) 01/28/21 10:11 BUN 3 mg/dl (7-18) L 01/28/21 10:11 Creatinine 0.62 mg/dl (0.6-1.2) 01/28/21 10:11 Est Cr Clr Drug Dosing 133.5 ml/min 01/28/21 10:11 Est GFR ( Amer) 120.2 01/28/21 10:11 Est GFR (Non-Af Amer) 103.7 01/28/21 10:11 BUN/Creatinine Ratio 5.2 (10-20) L 01/28/21 10:11 Glucose 327 mg/dl (70-99) H* 01/28/21 10:11 POC Glucose 350 mg/dl (70-99) H* 01/28/21 07:25 Estimat Average Glucose 321 mg/dl 01/28/21 02:47 Hemoglobin A1c 12.8 % (4.5-5.6) H 01/28/21 02:47 Lactate 8.8 mmol/L (0.4-2.0) H* 01/27/21 16:13 Calcium 8.0 mg/dl (8.5-10.1) L 01/28/21 10:11 Phosphorus 2.0 mg/dl (2.5-4.9) L 01/28/21 10:11 Magnesium 1.7 mg/dl (1.8-2.4) L 01/28/21 10:11 Total Bilirubin 0.4 mg/dl (0.2-1) 01/27/21 16:13 AST 25 U/L (15-37) 01/27/21 17:11 ALT 31 U/L (12-78) 01/27/21 16:13 Alkaline Phosphatase 159 U/L (45-117) H 01/27/21 16:13 Troponin I < 0.015 ng/ml (0-0.045) 01/27/21 16:13 Total Protein 7.5 gm/dl (6.4-8.2) 01/27/21 16:13 Albumin 3.2 gm/dl (3.4-5.0) L 01/27/21 16:13 Globulin 4.3 gm/dl (2.5-4.0) H 01/27/21 16:13 Albumin/Globulin Ratio 0.7 (0.9-2) L 01/27/21 16:13 Beta-Hydroxybutyric Acd 0.76 mg/dl (0.2-2.81) 01/28/21 10:11 TSH 0.948 uIu/ml (0.300-4.500) 01/27/21 16:13 Urine Color Yellow 01/27/21 17:35 Urine Appearance Clear (Clear) 01/27/21 17:35 Urine pH 5.5 (4.5-7.5) 01/27/21 17:35 Ur Specific Wallace 1.031 (1.000-1.030) H 01/27/21 17:35 Urine Protein Negative (Negative) 01/27/21 17:35 Urine Glucose (UA) 3+ (Negative) H 01/27/21 17:35 Urine Ketones Negative (Negative) 01/27/21 17:35 Urine Blood Negative (Negative) 01/27/21 17:35 Urine Nitrite Negative (Negative) 01/27/21 17:35 Urine Bilirubin Negative (Negative) 01/27/21 17:35 Urine Urobilinogen Negative (Negative) 01/27/21 17:35 Ur Leukocyte Esterase Negative (Negative) 01/27/21 17:35 COVID-19 Eval Order CovFluRsv at [facility] 01/27/21 17:40 SARS-CoV-2 (PCR) NEGATIVE (Negative) 01/27/21 17:40 Influenza Type A (PCR) Negative (Neg) 01/27/21 17:40 Influenza Type B (PCR) Negative (Neg) 01/27/21 17:40 RSV (RT-PCR) Negative (Neg) 01/27/21 17:40 Impressions KUB X-Ray 01/27/21 16:15 KUB CLINICAL HISTORY: Abdominal pain. COMPARISON STUDY: CT of the abdomen and pelvis September 25, 2021. FINDINGS: Cholecystectomy clips and intrauterine device are noted. The bowel gas pattern is normal. There is a moderate amount stool within the colon and rectum. There is no evidence for a bowel obstruction. IMPRESSION: 1. No evidence for a bowel obstruction. 2. Moderate amount stool within the colon and rectum. ACT 112: Negative or not required by law. Electronically signed by: Dani Cardona M.D. 01/27/2021 5:20 PM Chest X-Ray 01/27/21 16:17 XR chest 1V portable HISTORY: hyperglycemia, cramps, abd pain COMPARISON: Chest 11/26/2020. FINDINGS: The lungs are clear. Cardiac silhouette is normal in size. No pleural effusions. No pneumothorax. IMPRESSION: No acute process. ACT 112: Negative or not required by law. Electronically signed by: Luis F Mixon M.D. 01/27/2021 5:[address] 01/27/21 18:[address] DOSE: 537.48 mGy.cm HISTORY: NUMBNESS IN HAND TECHNIQUE: Multiaxial CT images of the head were performed without the use of intravenous contrast. Automated exposure control was utilized for this study. A dose lowering technique was utilized adhering to the principles of ALARA. Comparison: 11/12/2020. Findings: The paranasal sinuses and mastoid air cells are clear. The calvarium and skull base are intact. The ventricles and sulci are within normal limits. There is no mass, hematoma, midline shift, or acute infarct. Impression: No acute intracranial abnormality. ACT 112: Negative or not required by law. Electronically signed by: Luis F Mixon M.D. 01/27/2021 8:54 PM Resident Activity Tracking Resident Involvement: Resident Care Provided Care Provided: Adult Hospital Medicine (1) Pressure ulcer of buttock Pressure injury stage: stage 1 (2) Hyperglycemia due to type 2 diabetes mellitus Diabetes mellitus assisted insulin use: with assisted use Qualified Code(s): E11.65 - Type 2 diabetes mellitus with hyperglycemia; Z79.4 - skilled nursing (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
[2021-01-28] MEDS: POLYETHYLENE (MIRALAX) 17 GM PACK PO SCH ×3 (09:50→19:30)
[2021-01-28] MEDS: oxyCODONE HCL IR 5 MG TAB (IMMEDIATE RELEASE) PO PRN (09:50)
[2021-01-28] MEDS ORDERED: INSULIN HUMAN REGULAR PER UNIT 10 UNITS in SYRINGE 9.9 ML IV ONE (10:30)
[2021-01-28 10:42] LABS: BUN Creatinine Ratio 5.2 (10-20); Creatinine Clr Calc Pharmacy 133.5 ml/min; Est GFR (African American) 120.2; Est GFR (Non-African American) 103.7; Magnesium 1.7 mg/dl (1.8-2.4); Potassium 3.5 mmol/L (3.5-5.1)
[2021-01-28 10:53] LABS: Beta-Hydroxybutyrate 0.76 mg/dl (0.2-2.81)
[2021-01-28] MEDS ORDERED: POTASSIUM PHOS 3 MMOL/1 ML INFUSION IV STA (10:54)
[2021-01-28] MEDS: MAGNESIUM SULFATE / D5W 1 GM/100 ML BAG IV SCH ×2 (11:29→13:18)
[2021-01-28] MEDS ORDERED: POTASSIUM PHOSPHATE 21 MMOL in SODIUM CHLORIDE 0.9% 500 ML IV ONE (11:30)
[2021-01-28] MEDS: MoRPHine SULFATE 2 MG/ML CARP IV PRN ×3 (11:34→23:52)
[2021-01-28] MEDS: SUCRALFATE 1 GM/10 ML UDC PO SCH ×3 (12:39→19:30)
--- NOTE | 2021-01-28 13:55 | Pharmacy Report ---
Pharmacy Glycemic Short Note 2 - Date of Service January 28, 2021 - Glycemic Short BSG Results (Last 24 hours): 01/27/21 01/27/21 01/27/21 16:09 16:13 17:17 Glucose 635 H* 343 H* POC Glucose > 600 H* 01/27/21 01/27/21 01/27/21 18:44 21:08 22:23 Glucose 75 POC Glucose 191 H 76 01/28/21 01/28/21 01/28/21 00:00 02:47 04:00 Glucose 179 H POC Glucose 168 H 277 H 01/28/21 01/28/21 01/28/21 06:42 07:24 07:25 Glucose 339 H* POC Glucose 339 H* 350 H* 01/28/21 01/28/21 10:11 11:46 Glucose 327 H* POC Glucose 175 H OUTPATIENT ANTIDIABETIC REGIMEN: * Lantus 45 units BID * Novolog 12 units ACHS + Sliding scale * Trulicity 1.5 mg weekly ASSESSMENT: * 50 y/o F admitted with cellulitis and DKA. Patient is Type 2 diabetic managed at home on insulin and Trulicity. 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 * Close to midnight, BSG did drop down to 75 mg/dl. She was given 20 units of Lantus at the time and also started on Novolog based on wt and stress tighter than 3. * Fasting BSG was still elevated this AM at 350 mg/dl. I ordered IV regular insulin x1 dose and added Lantus BID. * Pre-lunch BSG improved to 175 mg/dl. Therefore, will continue current Novolog parameters. * Used data from previous admissions to guide dosing. PLAN FOR INPATIENT GLYCEMIC CONTROL: * Hold outpatient Trulicity * Basal insulin * Lantus 25 units SQ today AM * HS Lantus dose scale between 25-35 units based on BSG * Bolus insulin: continued * NovoLog per scale ACHS or Q6hrs while NPO * Goal Range: Low 100 mg/dL - High 140 mg/dL * Correction Factor: 12 mg/dL/unit * Nutritional / Prandial insulin per carb ratio of 1 unit per 4 grams CHO consumed PLAN FOR DISCHARGE: * HbA1c = 12.8% * TBD
--- NOTE | 2021-01-28 14:19 | Electrocardiogram Report ---
Test Reason : Blood Pressure : / mmHG Vent. Rate : 123 BPM Atrial Rate : 123 BPM P-R Int : 104 ms QRS Dur : 098 ms QT Int : 410 ms P-R-T Axes : 000 -18 054 degrees QTc Int : 586 ms Sinus tachycardia with short NH Abnormal ECG When compared with ECG of 27-NOV-2020 02:25, Vent. rate has increased BY 53 BPM T wave inversion now evident in Lateral leads Confirmed by Aiden Marin ([id number]) on 01/28/2021 2:18:40 PM Referred By: Aneudy Pérez Confirmed By:Chucky Marin
[2021-01-28 14:55] LABS: BUN Creatinine Ratio 4.2 (10-20); Calcium 8.1 mg/dl (8.5-10.1); Creatinine Clr Calc Pharmacy 96.3 ml/min; Est GFR (Non-African American) 77.7; Magnesium 2.2 mg/dl (1.8-2.4); Potassium 3.7 mmol/L (3.5-5.1)
[2021-01-28 15:04] LABS: Phosphorus 3.6 mg/dl (2.5-4.9)
[2021-01-28] MEDS: cefTRIAXone SODIUM 2,000 MG in DEXTROSE 5% 50 ML IV SCH (20:38)
[2021-01-28] MEDS ORDERED: INSULIN GLARGINE SOLOSTAR 100 UNITS/ML 3 ML PEN SC SCH (21:00)
[2021-01-29] MEDS: oxyCODONE HCL IR 5 MG TAB (IMMEDIATE RELEASE) PO PRN (03:30)
[2021-01-29] MEDS: INSULIN ASPART 100 UNITS/ML 3 ML PEN SC SCH ×3 (04:38→12:35)
[2021-01-29] MEDS: NORMOSOL-R 1,000 ML IV SCH ×2 (06:10→12:36)
[2021-01-29] MEDS: MoRPHine SULFATE 2 MG/ML CARP IV PRN ×2 (06:12→12:36)
[2021-01-29] MEDS: SUCRALFATE 1 GM/10 ML UDC PO SCH ×2 (08:15→12:36)
[2021-01-29] MEDS: POLYETHYLENE (MIRALAX) 17 GM PACK PO SCH ×2 (08:16→15:05)
[2021-01-29] MEDS: GABAPENTIN 600 MG TAB PO SCH ×2 (08:17→15:04)
[2021-01-29] MEDS: FLUTICASONE/VILANTEROL 200/25MCG 14 PUFFS/INHALER INH SCH (08:18)
--- NOTE | 2021-01-29 08:22 | Pharmacy Report ---
Pharmacy Glycemic Short Note 2 - Date of Service January 29, 2021 - Glycemic Short BSG Results (Last 24 hours): 01/28/21 01/28/21 01/28/21 10:11 11:46 14:13 Glucose 327 H* 183 H POC Glucose 175 H 01/28/21 01/28/21 01/28/21 16:36 20:18 23:33 Glucose POC Glucose 212 H 285 H 408 H* 01/28/21 01/29/21 01/29/21 23:35 04:37 07:32 Glucose POC Glucose 398 H* 221 H 199 H OUTPATIENT ANTIDIABETIC REGIMEN: * Lantus 45 units BID * Novolog 12 units ACHS + Sliding scale * Trulicity 1.5 mg weekly * HbA1c: 12.8% (01/28/21) ASSESSMENT: 01/29 * BSGs elevated yesterday 350, 175, 212, 285, and 398 mg/dL * Received 181 units of insulin (60 units of Lantus, 111 units of prandial/correctional Novolog, and 10 units IV regular insulin) * Fasting BSG of 199 mg/dL this morning - will increase Lantus today * CF tightened overnight -will further tighten 01/28 * 50 y/o F admitted with cellulitis and DKA. Patient is Type 2 diabetic managed at home on insulin and Trulicity. 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 * Close to midnight, BSG did drop down to 75 mg/dl. She was given 20 units of Lantus at the time and also started on Novolog based on wt and stress tighter than 3. * Fasting BSG was still elevated this AM at 350 mg/dl. I ordered IV regular insulin x1 dose and added Lantus BID. * Pre-lunch BSG improved to 175 mg/dl. Therefore, will continue current Novolog parameters. * Used data from previous admissions to guide dosing. PLAN FOR INPATIENT GLYCEMIC CONTROL: * Hold outpatient Trulicity * Basal insulin - increase * Lantus 40 units SQ today AM * Lantus 25-40 units SC HS (See EHR for details) * Bolus insulin: tighten * NovoLog per scale ACHS or Q6hrs while NPO * Goal Range: Low 100 mg/dL - High 140 mg/dL * Correction Factor: 10 mg/dL/unit * Nutritional / Prandial insulin per carb ratio of 1 unit per 3 grams CHO consumed PLAN FOR DISCHARGE: * HbA1c of 12.8% suggests very poor outpatient glycemic control * Unsure if this is related to inadequate dosing vs. poor compliance * Will follow inpatient insulin needs and make recommendations as appropriate * Patient has follow-up appointment with endocrinology in one week (02/05)- will likely defer to their judgment regarding insulin/Trulicity adjustments
[2021-01-29] MEDS ORDERED: DOCUSATE SODIUM/SENNA 50/8.6MG TAB PO SCH (09:00)
[2021-01-29] MEDS ORDERED: INSULIN GLARGINE SOLOSTAR 100 UNITS/ML 3 ML PEN SC SCH ×2 (09:00)
--- NOTE | 2021-01-29 10:02 | Hospitalist Progress Note ---
Date of Service January 29, 2021 Assessment & Plan (1) Hyperglycemia due to type 2 diabetes mellitus: 50 yo F w/ hx IDDM admitted for hyperglycemia and lethargy. Abdominal Pain - likely secondary to constipation +/- GERD - KUB showing moderate stool in colon and rectum - bowel regimen: miralax TID, doc/senna AM - continue famotidine, sucralfate QID - promethazine PRN for nausea Chest tightness: Costochondritis - no EKG changes, exertional or resting chest pain - only with deep breaths - sternal wall TTP, ibuprofen 800 PRN IDDM2 - pharmacy consult - took 120u novolog prior to coming to ER on 01/27 - normally takes 45u lantus BID with aspart 12u Peripheral Neuropathy - 1200 mg gabapentin PO TID Muscle Pains - cont voltaren gel, cyclobenzaprine, oxycodone 5 mg BID CAD prevention - daily aspirin DVT ppx: heparin sq FEN/GI: DM2, carafate, famotidine, normosol 75cc/hr Code status: Full code Dispo: Med/Surg (2) Elevated lactic acid level: (3) Hypokalemia: (4) Hypomagnesemia: (5) Pressure ulcer of buttock: (6) Liver cirrhosis: (7) Morbid obesity with BMI of 40.0-44.9, adult: Admission and Anticipated Discharge Date Admission Date: January 27, 2021 Subjective Fatigued this morning, didn't sleep well due to room neighbor being quite sick and requiring frequent monitoring/beeping of machinery. Has had a bowel movement this morning, none yesterday. No hematochezia, melena, pain with defecation. Improved stomach burning sensation with taking sucralfate BID yesterday. Chest discomfort stable. Review of Systems Review of Systems: All systems reviewed & are unremarkable except as noted in Subjective Physical Exam Physical Exam: Constitutional: obese, tired appearing, laying down in bed. Abd: no TTP at epigastric Extremities: 2+ peripheral pulses, no edema Results & Data Results & Data ([facility]) Vital Signs (Past 12 Hours) Vital Signs Temp Pulse Resp BP Pulse Ox 01/29/21 08:04 36.8 C 77 18 132/78 99 01/29/21 04:35 37.0 C 84 18 130/85 100 01/28/21 22:56 36.5 C 88 19 120/78 100 BMP normal this AM Resident Activity Tracking Resident Involvement: Resident Care Provided Care Provided: Adult Hospital Medicine (1) Pressure ulcer of buttock Pressure injury stage: stage 1 (2) Hyperglycemia due to type 2 diabetes mellitus Diabetes mellitus terminal manager insulin use: with terminal manager use Qualified Code(s): E11.65 - Type 2 diabetes mellitus with hyperglycemia; Z79.4 - tank terminal 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
--- NOTE | 2021-01-29 14:38 | Discharge Summary ---
Date of Service January 29, 2021 Admission HPI Per Admitting Provider 50 y/o female h/o DMII, uncontrolled presents with 3 days of progressively worsening fatigue in the setting of hyperglycemia and recent infection on doxycycline. She reports that she hasn't had any POI for the last 3 days (some pickles) and has drank very little water. She has been taking her basal insulin as prescribed despite the decreased POI and is working on coverage as noted. Her ongoing cellulitis, likely as a corrolary of pressure wounds, is improving on doxycycline but she has not had wound care evaluation as yet. She also reports intermittent qHS foot cramping which she reports happens with hyperglycemia intermittently. Last evening she developed left hand paresthesias which are new for her, left hand from the wrist, ?1st 4 digits. She reports no fever, chills, cough, congestion, nausea/vomiting, other skin changes, MCNULTY, vision changes, hearing changes. Admission Exam Per Admitting Provider Constitutional: + obese and + disheveled Eyes: PERRL, conjunctivae normal, anicteric sclerae ENMT: external ear and nose normal, oropharynx normal Neck: trachea midline, no thyromegaly Respiratory: normal respiratory effort, lungs clear to auscultation Cardiovascular: Rate/Rhythm: + tachycardic Heart Sounds: normal S1 and normal S2 Gastrointestinal (Abdomen): Percussion/Palpation: + abdomen tender (over periumbilical region, chronic) and abdomen soft Skin: + wound (bilateral posterior perineum pressure appearing wound with improved celluit) Neurologic: PERRL, EOMI, accommodation nl, no face palsy, no dysarthria CN's II-XI intact bilaterally Psychiatric: A+Ox3, euthymic affect Principal Diagnosis constipation Discharge Exam Constitutional: + obese Eyes: PERRL, conjunctivae normal, anicteric sclerae ENMT: external ear and nose normal, oropharynx normal Neck: trachea midline, no thyromegaly Respiratory: normal respiratory effort, lungs clear to auscultation Cardiovascular: RRR, no mrg Gastrointestinal (Abdomen): Percussion/Palpation: + abdomen tender (over periumbilical region, chronic) and abdomen soft Skin: + wound (bilateral posterior perineum pressure appearing wound with improved celluit) Neurologic: PERRL, EOMI, accommodation nl, no face palsy, no dysarthria CN's II-XI intact bilaterally Psychiatric: A+Ox3, euthymic affect Discharge Data Allergies Allergy/AdvReac Type Severity Reaction Status Date / Time cephalexin AdvReac Severe Vomiting Verified 01/27/21 16:59 acetaminophen AdvReac Unknown Other Verified 01/27/21 16:59 levofloxacin [From Levaquin] AdvReac Unknown Vomiting Verified 01/27/21 16:59 Consultations 01/27/21 17:39 ED Decision to Admit Stat Ordered Studies 01/27/21 18:31 CT head/brain wo con Routine Diabetes Follow up Diabetes Follow-up Needed for HgbA1c >9% Hospital Course (1) Hyperglycemia due to type 2 diabetes mellitus: 50 yo F w/ hx IDDM admitted for hyperglycemia and lethargy. Abdominal Pain: likely secondary to constipation and GERD, ensuing bloating and abdominal fullness decreased drive to eat, leading to irregular sugar control. Discharged with TID miralax and daily docusate/senna. To use 1 cap more miralax per day if no bowel movement for greater than 2 days until bowel movement. If having diarrhea or too frequent movements, decrease by 1 cap per day. Titrate to appropriate bowel regimen. GERD pain improved with addition of sucralfate BID. IDDM: discharged home on home insulin regimen. no changes made. Sacral Ulcer: 1 day of ceftriaxone IV, converted to 300 mg cefdinir BID x 6 days to finish course. Improving pain and healing on discharge. All other medical conditions managed per home regimen. (2) Elevated lactic acid level: (3) Hypokalemia: (4) Hypomagnesemia: (5) Pressure ulcer of buttock: (6) Liver cirrhosis: (7) Morbid obesity with BMI of 40.0-44.9, adult: Total Time Total Time Spent Total Time Spent (In Minutes): see attending attestation Discharge Plan Discharge Items Patient Disposition: Home - Self-Care Reason For Visit: HYPERGYLCEMIA Discharge Diagnosis: Hyperglycemia Activity: Resume your previous activity Non-emergency contact: Primary Care Provider Call non-emergency contact if: you have any medication questions and your symptoms worsen Follow-up/Referrals: Aneudy Pérez MD [Primary Care Provider] - 02/02/21 2:30 pm Diet: Carb Consistent or DM2 Addtl Attending Provider Instructions: It was a pleasure taking care of you as always Lillian. Below are the instructions for going home: 1. Sugars: Go back to your home regimen of 45 units of Lantus in the morning and evening. Keep measuring your blood sugar throughout the day and using the 12 units of Novolog to cover meals and snacks. Drinking water and making sure to eat at mealtimes is just as important as using your insulin to keep control of your sugar. If you don't eat anything, your body sends out sugar for energy but doesn't have the insulin to put it in to cells, so the sugar stays in your blood and leads to high sugars. Make sure to eat and drink lots of water to avoid this. You have an Endocrinology appointment on 02/05 with Nestor Mcdaniels PA-C at 11:30 AM to discuss your diabetic control. 2. Constipation: Take 1 cap of miralax three times a day and a sennakot pill in the morning to help you keep your bowels moving. Every miralax packet should be mixed into 8 oz of fluid. Half an hour after meals, spend at least 5 minutes on the toilet to try and stimulate a bowel movement to make use of your natural reflex to have a BM after eating. - If you don't have a bowel movement for 2 days: :take 2 capfuls of miralax the next morning, followed by 1 in the afternoon and 1 in the evening. Continue adding 1 capful of miralax to the regimen per day that you don't have a movement. - If you feel that you are going too often or are having only diarrhea: :remove 1 capful of miralax from your regimen. 3. Stomach pain: take the famotidine 10 mg twice a day everyday to try and keep your reflux under control. If taken everyday, it can help stop episodes of worse stomach pain. If you do have worsening pain, you can use the Sucralfate mix up to 3 times during the day to help calm down really bad, new, pain. 4. Sacral Ulcer: keep using the stoma powder, wound bandages and covers to help your wounds heal. Avoid putting any lotions or creams on them as it will lock in moisture rather than keeping it dry. Try to shift position when sitting or laying down every 2-3 hours so that you don't put too much pressure on them. You can use the foam supports given in the hospital to help spread your weight out evenly when sitting rather than on just a few spots. Pending Studies at Discharge: No Stand-Alone Forms: My [facility], Smoking Cessation Medications and DC Order Prescriptions: New sennosides-docusate sodium [Senokot-S] 8.6-50 mg Tablet 1 tab PO QAM Qty: 30 RF: 0 sucralfate 100 mg/mL Suspension 1 ml PO QID PRN (Reason: (Drug) Ingestion) 30 Days Qty: 120 RF: 0 Continued cyclobenzaprine 10 mg Tablet 10 mg PO BID PRN (Reason: Muscle Spasm) Qty: 0 RF: 0 gabapentin 600 mg Tablet 1,200 mg PO TID Qty: 0 RF: 0 albuterol sulfate [Ventolin HFA] 90 mcg/actuation Hfa Aerosol Inhaler 2 puff INHALATION Q4H PRN (Reason: Shortness Of Breath Or Wheezing) Qty: 0 RF: 0 montelukast [Singulair] 10 mg tablet 10 mg PO QPM RF: 0 diclofenac sodium [Voltaren] 1 % gel 4 g topical QID PRN (Reason: Pain) RF: 0 Trulicity 1.5 mg/0.5 mL pen injector 1.5 mg SUBCUT WK RF: 0 fluticasone propion-salmeterol 232-14 mcg/actuation aerosol powdr breath activated 2 inh INHALATION BID RF: 0 insulin aspart U-100 [Novolog Flexpen U-100 Insulin] 100 unit/mL (3 mL) insulin pen 12 unit SC ACHS RF: 0 oxycodone 5 mg Tablet 5 mg PO BID PRNQty: 0 RF: 0 Lantus Solostar U-100 Insulin 100 unit/mL (3 mL) insulin pen 45 unit SUBCUT AMPM RF: 0 ibuprofen 800 mg tablet 800 mg PO TID PRN (Reason: Pain) RF: 0 promethazine 25 mg tablet 25 mg PO Q6H PRN (Reason: Nausea) RF: 0 aspirin 81 mg Tablet,Delayed Release (Dr/Ec) 81 mg PO QAM RF: 0 Discharge Orders: Discharge Order (Routine); Ordered 01/29/21 Ordered By: Patsy Nuñez Admission Data Admit Date/Time: 01/27/21 18:39 Attending Provider: Aneudy Pérez Admit Provider: Jose Peters Primary Care Provider: Aneudy Pérez Other Providers: Jose Peters ; Patsy Nuñez Other Interventions: Discharge Summary Assessment (RN) Last Done: 01/29/21 15:41 Supervising Physician Co-Signing Physician Notes Attending attestation Pt seen and examined in concert with Dr. Nuñez. In agreement with the documented findings as noted in the resident documentation with any exceptions or additions as noted here. Continued improvement in buttock pain and overall fatigue. Essentially returned to baseline. On examination, S1/S2 nl RRR no MCG. CTAB. Abd NT/ND BS+ve. Buttock lesion with decreased erythema and TTP. Uncontrolled type 2 DM with hyperglycemia, A1c > 12% - resume home insulin measure, close monitoring of FSBS and f/u with PCP for glycemic management. f/u w/ endo scheduled. Constipation - cited by patient as cause of decreased POI - improved w/ senna, miralax, colace. bowel regimen with education for rapidly escalating bowel regimen at home to prevent these episodes ongoing Stage 1-2 pressure ulcer with cellulitis, POA - follow up with wound care, transition to PO abx to complete course Else see resident documentation as noted. Total attending time spent on this patient's case on the day of discharge: 40 minutes. Resident Activity Tracking Resident Involvement: Resident Care Provided Care Provided: Adult Hospital Medicine
== END 2021-01-29 16:07 | disposition home or self-care (01) ==
LOC: ED 16:02 → 2S 18:39 → INTOOBSV 18:39 → SUATTDRO 18:39 → 2S 20:38

== ENCOUNTER 2022-02-22 18:06 | Observation (INO) ==
[2022-02-22] MEDS ORDERED: levETIRAcetam 1,000 MG in 0.9 % SODIUM CHLORIDE 100 ML IV STA (18:36)
[2022-02-22] MEDS ORDERED: SODIUM CHLORIDE 0.9% 500 ML IV SCH (18:45)
--- NOTE | 2022-02-22 18:46 | Emergency Department Note ---
Impression & Plan Seizure-like activity, Syncope ED Provider Note NAME: MARCIO FERNANDEZ AGE: 51 SEX: F : 1970 ARRIVES VIA: Walk-In INFORMANT: Patient, ED PROVIDER(S): Urbano Harper MD Chief Complaint: Seizure, outpatient referral HPI: Patient presents due to concern for possibility of seizures. The patient was seen in the outpatient setting and referred here by Dr. Jenkins potentially to be admitted by Dr. Nance. The patient states that she was unable to be directly admitted as they were unable to get a COVID test. The patient states that over the last 4 days that the patient may have had a seizure 4 separate chrystal es. The patient believes that she had 2 seizures on Tuesday and then 2 separate prior. The patient had recently traveled to [place] for the of a family member and that she initially sees there. The patient subsequently seems 1 more time at home and subsequently 2 times yesterday. Patient does not know how long these occur but denies any tongue biting or incontinence. The patient denies any shortness of breath but does complain midsternal nonradiating chest pain. The patient has also had frontal headache. Patient has not taken anything for symptoms at home. The patient denies any nausea vomiting numbness tingling or focal weakness anywhere. No prior history of seizures. The patient is unsure as to whether or not she sustained any trauma. There was concern in the outpatient setting that the patient may have had episodes of syncope. Patient denies any alcohol or tobacco use. The patient had been seen on Tuesday evening and was worked up here in the emergency department and was discharged home. ROS: See HPI for pertinent positives and negatives. A total of 10 systems were reviewed and otherwise negative. Past medical history: See below Surgical history: See below Social history: See below Physical Exam: GENERAL: NAD, wearing a mask, non-toxic. EYE EXAM: Normal conjunctiva. PERRL, no anisocoria and EOM's grossly intact w/o pain. OROPHARYNX: Moist mucus membranes. Edentulous. NECK: Supple, no nuchal rigidity, no adenopathy, non-tender. No signs of meni ngismus. No midline C-spine TTP. LUNGS: Clear to auscultation. Normal chest wall mechanics. HEART: NSR, no MRG. ABDOMEN: Abdomen soft, non-tender, normo-active bowel sounds, no masses, no rebound or guarding. BACK: No CVA TTP. SKIN: No rashes and no bruising. UPPER EXTREMITIES: Upper extremities are grossly normal. LOWER EXTREMITIES: Grossly normal, no edema. NEURO EXAM: A&O x3, cranial nerves II-XII grossly intact, normal speech, moves all 4 extremities on command w/o issue. Good finger to nose, no drift, no sensory deficits. Differential diagnoses: Vasovagal event, dehydration, infection, hypoglycemia, electrolyte abnormalities, cardiac sources, intracerebral event, pulmonary embolism, seizure, toxicologic, neurologic, as well as other pathologies. Course: Patient was seen and evaluated the bedside. Full history physical exam was performed. EKG interpreted by me Normal sinus rhythm, rate 92, normal intervals, normal axis, no ST changes. Imaging Studies: See Below Cardiac monitoring: An order was placed for continuous cardiac monitoring. The monitor shows a rate of 88 with sinus rhythm. MDM: Patient was seen due to concern for seizure versus syncope. Blood work was o btained. Patient did a CT of the head and chest x-ray completed along with an EKG and troponin. Patient also had a chest x-ray completed. The patient's blood work chest x-ray and CT head are grossly unremarkable. The patient was loaded with a gram of Keppra as a precaution. I did speak to the on-call hospitalist Dr. Montenegro and the patient was admitted to the medicine service. Past Med/Surg History Medical History Abdominal pain Acute hyperglycemia Anxiety Brain cyst Chest pain Chronic low back pain with left-sided sciatica Chronic obstructive pulmonary disease Dental abscess Depression Elevated lactic acid level Emphysema of lung Encounter for pre-operative examination Hx of blood clots Hyperglycemia Hyperglycemia Hyperglycemia due to type 2 diabetes mellitus Hyperlipidemia Hypertension Hypokalemia Hypomagnesemia Hyponatremia Insulin dependent diabetes mellitus Lightheadedness Medication reaction Obesity Periapical abscess with facial involvement Pulmonary embolism Reports was anticoagulation x 60 days, not on chronic anticoagulation Seizure Syncope Thrombocytopenia Tinea corporis Tinea cruris Uncontrolled type 2 diabetes mellitus Surgical History History of laparoscopic cholecystectomy Hx of oral surgery (02/15/20) Acute right submandibular, submental space infection with floor of mouth infection caused by infected lower teeth. Dr. Rios 02/15/20 S/P dilation and curettage S/P laparoscopic hernia repair S/P laparoscopic procedure ovarian cyst surgery Family History Mother , 73 Heart disease Cancer Father Skin cancer Brother No problems noted. Sister No problems noted. Grandmother (Maternal) , 48 Heart disease T2DM (type 2 diabetes mellitus) Grandmother (Paternal) , 83 Heart disease Kidney disease Uncle T2DM (type 2 diabetes mellitus) Other Diabetes Obesity Denies family history of Ovarian cancer Breast cancer Colorectal cancer Uterine cancer Social History Smoking Status: Former smoker Tobacco Type: Cigarettes Cigarettes Per Day: 5; Second Hand Exposure: Yes; Hx Alcohol Use: No Hx Substance Use: No Preferred Language: Lao Communication Ability: Effective Visual Impairment: No Limitations Hearing Ability: Normal Database Developer Required: No Beliefs That Will Affect Care: None marital status: Current Living Situation: Alone Current Living Situation Comment: Lives with son (14 yo) current occupational status: unemployed How many Children do You have: 1 Feels Safe at Home: Yes Assistive Devices: None Allergies Allergies Allergy/AdvReac Type Severity Reaction Status Date / Time acetaminophen AdvReac Severe LIVER Verified 02/22/22 18:53 COMPLICATIONS cephalexin AdvReac Severe Vomiting Verified 02/22/22 18:53 levofloxacin [From Levaquin] AdvReac Intermediate Vomiting Verified 02/22/22 18:53 Home Meds Home Medications Medication Instructions Recorded Confirmed cyclobenzaprine 10 mg tablet 10 mg PO BID PRN #0 11/18/17 02/22/22 gabapentin 600 mg tablet 1,200 mg PO TID #0 tab 11/18/17 02/22/22 albuterol sulfate 90 mcg/actuation 2 puff INHALATION Q4H PRN #0 02/10/18 02/22/22 aerosol inhaler (Ventolin HFA) ibuprofen 800 mg tablet 800 mg PO TID PRN 10/24/19 02/22/22 promethazine 25 mg tablet 25 mg PO Q6H PRN 10/24/19 02/22/22 dulaglutide 1.5 mg/0.5 mL 4.5 mg SUBCUT WK 05/19/20 02/22/22 subcutaneous pen injector (Trulicity) fluticasone 232 mcg-salmeterol 14 2 inh INHALATION BID PRN 08/21/20 02/22/22 mcg/actuation breath activated powdr montelukast 10 mg tablet 10 mg PO HS 09/01/20 02/22/22 (Singulair) aspirin 81 mg tablet,delayed 81 mg PO QAM 10/28/20 02/22/22 release ipratropium 0.5 mg-albuterol 3 mg 3 ml INHALATION QID PRN 02/12/21 02/22/22 (2.5 mg base)/3 mL nebulization soln insulin aspart U-100 100 unit/mL 12 unit SC TID ml 02/23/21 02/22/22 (3 mL) subcutaneous pen (Novolog Flexpen U-100 Insulin aspart) insulin glargine 100 unit/mL (3 48 unit SUBCUT BID ml 02/23/21 02/22/22 mL) subcutaneous pen (Lantus Solostar U-100 Insulin) cyclosporine 0.05 % eye drops in a 2 drp OPHTHALMIC (EYE) Q12H 04/17/21 02/22/22 dropperette (Restasis) sennosides 8.6 mg-docusate sodium 1 tab PO QAM PRN 06/23/21 02/22/22 50 mg tablet (Senokot-S) diclofenac sodium 1 % topical gel 4 g TOPICAL QID PRN 07/20/21 02/22/22 duloxetine 40 mg capsule,delayed 40 mg PO HS 11/28/21 02/22/22 release albuterol sulfate 2.5 mg INHALATION DAILY PRN 01/19/22 02/22/22 famotidine 40 mg tablet 40 mg PO BID 01/19/22 02/22/22 fluticasone propionate 50 1 spray INTRANASAL DAILY PRN 01/19/22 02/22/22 mcg/actuation nasal spray,suspension lidocaine 5 % topical patch 1 patch TRANSDERMAL DAILY PRN 01/19/22 02/22/22 nystatin 100,000 unit/gram topical 1 applic TOPICAL DAILY PRN 01/19/22 02/22/22 powder pantoprazole 20 mg tablet,delayed 20 mg PO QAM 01/19/22 02/22/22 release polyethylene glycol 3350 17 34 g PO BID 01/29/22 02/22/22 gram/dose oral powder (Miralax) trazodone 100 mg tablet 100 mg PO HS 01/29/22 02/22/22 Previous Rx's Medication Instructions Recorded oxycodone-acetaminophen 10 mg-325 1 tab PO Q6H PRN #20 tab 02/11/20 mg tablet (Percocet) doxycycline hyclate 100 mg capsule 100 mg PO BID 7 Days #14 cap 02/21/22 levetiracetam 500 mg tablet 500 mg PO BID #60 tab 02/23/22 (Keppra) Results & Data (ED) Vital Signs Vital Signs - 24 hr 02/22/22 18:16 02/22/22 18:36 02/22/22 18:50 Temperature 37 C Temperature Source Oral Pulse Rate 99 H 93 H Pulse Rate [Apical] 94 H Respiratory Rate 18 18 19 Respiratory Effort / Characteristics Non-Labored Spontaneous Non-Labored Spontaneous Respiratory Depth Normal Normal Respiratory Pattern Regular Regular Blood Pressure 157/93 H 140/92 Blood Pressure [Right Arm] 140/92 Blood Pressure Mean 114 108 Blood Pressure Mean [Right Arm] 108 Blood Pressure Position Sitting Pulse Oximetry 96 97 97 Oxygen Delivery Method Room Air Room Air Sepsis Recent Fever Within 48 Hours No Sepsis New/Unexplained Change in Mental Status N/A Sepsis Action Taken by Nursing No Action Required 02/22/22 19:00 02/22/22 19:30 02/22/22 20:00 Temperature Temperature Source Pulse Rate 92 H 95 H 83 Pulse Rate [Apical] Respiratory Rate 17 16 16 Respiratory Effort / Characteristics Respiratory Depth Respiratory Pattern Blood Pressure 127/85 132/87 119/83 Blood Pressure [Right Arm] Blood Pressure Mean 99 102 95 Blood Pressure Mean [Right Arm] Blood Pressure Position Pulse Oximetry 96 95 98 Oxygen Delivery Method Sepsis Recent Fever Within 48 Hours Sepsis New/Unexplained Change in Mental Status Sepsis Action Taken by Nursing 02/22/22 20:32 Temperature Temperature Source Pulse Rate 89 Pulse Rate [Apical] Respiratory Rate 20 Respiratory Effort / Characteristics Respiratory Depth Respiratory Pattern Blood Pressure 139/93 Blood Pressure [Right Arm] Blood Pressure Mean 108 Blood Pressure Mean [Right Arm] Blood Pressure Position Pulse Oximetry 100 Oxygen Delivery Method Sepsis Recent Fever Within 48 Hours Sepsis New/Unexplained Change in Mental Status Sepsis Action Taken by Skilled Nursing Medications Current Medication List: was personally reviewed by me Laboratory Data Attestation: I reviewed the patient's lab results. Result diagrams: 02/23/22 07:44 02/23/22 07:44 Lab Results 02/22/22 02/22/22 02/22/22 Range/Units 18:46 18:46 19:47 WBC 7.36 (4.8-10.8) K/uL RBC 4.67 (4.2-5.4) M/uL Hgb 15.0 (12.0-16.0) g/dL Hct 43.0 (37-47) % MCV 92.1 (80-100) fL MCH 32.1 (25-34) pg MCHC 34.9 (32-36) g/dL RDW Std Deviation 46.1 (36.4-46.3) fL RDW Coeff of Kelli 13.8 (11.5-14.5) % Plt Count 179 (130-400) K/uL MPV 11.3 H (7.4-10.4) fL Immature Gran % (Auto) 0.4 % Neut % (Auto) 56.9 % Lymph % (Auto) 33.3 % Mathews % (Auto) 7.7 % Eos % (Auto) 1.6 % Baso % (Auto) 0.1 % Neut # (Auto) 4.18 (1.4-6.5) K/uL Lymph # (Auto) 2.45 (1.2-3.4) K/uL Mathews # (Auto) 0.57 (0.11-0.59) K/uL Eos # (Auto) 0.12 (0-0.5) K/uL Baso # (Auto) 0.01 (0-0.2) K/uL Immature Gran # (Auto) 0.03 H (0.00-0.02) K/uL Sodium 137 (136-145) mmol/L Potassium 3.7 (3.5-5.1) mmol/L Chloride 104 (98-107) mmol/L Carbon Dioxide 25 (21-32) mmol/L Anion Gap 8 (3-11) BUN 4 L (6-23) mg/dl Creatinine 0.60 (0.6-1.2) mg/dl Est Cr Clr Drug Dosing 132.5 ml/min Est GFR ( Amer) 120.6 ml/min Est GFR (Non-Af Amer) 104.1 ml/min BUN/Creatinine Ratio 6.7 L (10-20) Glucose 265 H (70-99(Fasting)) mg/dl Calcium 9.9 (8.5-10.1) mg/dl Phosphorus 3.6 (2.5-4.9) mg/dl Magnesium 1.7 (1.7-2.4) mg/dl Total Bilirubin 0.5 (0.2-1.0) mg/dl AST 17 (13-39) U/L ALT 17 (7-52) U/L Alkaline Phosphatase 119 H (34-104) U/L Troponin I High Sens 4.4 (0-14) pg/ml Total Protein 7.1 (6.0-8.3) gm/dl Albumin 3.8 (3.4-5.0) gm/dl Globulin 3.3 (2.5-4.0) gm/dl Albumin/Globulin Ratio 1.2 (0.9-2) SARS-CoV-2, RNA, NAAT NEGATIVE (NEGATIVE) Administered Medications Discontinued Medications Aspirin (Aspirin 81 Mg Ectab) [facility] Stop: 03/25/22 08:59 Last Admin: 02/23/22 08:48 Dose: 81 mg Documented by: [id number] Cyclobenzaprine HCl (Cyclobenzaprine Hcl 10 Mg Tab) 10 mg PO BID PRN PRN Reason: Muscle Spasm Stop: 03/24/22 22:52 Last Admin: 02/23/22 00:27 Dose: 10 mg Documented by: [id number] Doxycycline Hyclate (Doxycycline Hyclate 100 Mg Cap) 100 mg PO BID [facility] Stop: 02/27/22 23:59 Last Admin: 02/23/22 08:47 Dose: 100 mg Documented by: [id number] Admin: 02/23/22 00:27 Dose: 100 mg Documented by: [id number] Duloxetine HCl (Duloxetine Hcl 20 Mg Cap) 40 mg PO HS [facility] Stop: 03/24/22 22:52 Last Admin: 02/23/22 00:27 Dose: 40 mg Documented by: [id number] Famotidine (Famotidine 40 Mg Tablet) 40 mg PO BID [facility] Stop: 03/24/22 22:52 Last Admin: 02/23/22 08:48 Dose: 40 mg Documented by: [id number] Admin: 02/23/22 00:08 Dose: 40 mg Documented by: [id number] Gabapentin (Gabapentin 600 Mg Tab) 1,200 mg PO TID YEN Stop: 03/24/22 22:52 Last Admin: 02/23/22 14:00 Dose: 1,200 mg Documented by: [id number] Admin: 02/23/22 08:47 Dose: 1,200 mg Documented by: [id number] Admin: 02/23/22 00:26 Dose: 1,200 mg Documented by: [id number] Gadobutrol (Gadobutrol 65ml Vial) 10 ml IV ONCE ONE Stop: 02/23/22 01:19 Last Admin: 02/23/22 01:19 Dose: 10 ml Documented by: [id number] Sodium Chloride (Nss) 500 mls @ 999 mls/hr IV .Q31M YEN Stop: 02/22/22 19:15 Last Infusion: 02/22/22 19:23 Dose: 0 mls/hr Documented by: [id number] Admin: 02/22/22 18:52 Dose: 999 mls/hr Documented by: [id number] Levetiracetam 1,000 mg/ Sodium (Chloride) 110 mls @ 440 mls/hr IV NOW STA Stop: 02/22/22 18:50 Last Infusion: 02/22/22 19:07 Dose: 0 mls/hr Documented by: [id number] Admin: 02/22/22 18:52 Dose: 440 mls/hr Documented by: [id number] Ibuprofen (Ibuprofen 800 Mg Tab) 800 mg PO TID PRN PRN Reason: Pain Stop: 03/24/22 22:52 Last Admin: 02/23/22 00:07 Dose: 800 mg Documented by: [id number] Insulin Aspart (Insulin Aspart Per Unit) 0 units SC ACHS [facility] Stop: 03/25/22 07:29 Last Admin: 02/23/22 13:02 Dose: 9 units Documented by: [id number] Cosigned by: [id number] Admin: 02/23/22 09:23 Dose: 5 units Documented by: [id number] Cosigned by: [id number] Insulin Glargine (Insulin Glargine 100 Unit/Ml Vial) 48 units SQ BID YEN Stop: 03/24/22 22:52 Last Admin: 02/23/22 08:51 Dose: 48 units Documented by: [id number] Cosigned by: [id number] Admin: 02/23/22 00:09 Dose: 48 units Documented by: [id number] Cosigned by: [id number] Levetiracetam (Levetiracetam 500 Mg Tab) 500 mg PO BID [facility] Stop: 03/25/22 11:44 Last Admin: 02/23/22 12:31 Dose: 500 mg Documented by: [id number] Lorazepam (Lorazepam 2 Mg/1 Ml Vial) 1 mg IV .[employer]QUIPMENT TO MRI PRN PRN Reason: anxiety Last Admin: 02/23/22 00:41 Dose: 1 mg Documented by: [id number] Miscellaneous (Remove Lidoderm Patch) 1 ea N/A DAILY@2100 [facility] Stop: 03/24/22 22:52 Last Admin: 02/23/22 00:08 Dose: 1 ea Documented by: [id number] Montelukast Sodium (Montelukast Sodium 10 Mg Tablet) 10 mg PO HS [facility] Stop: 03/24/22 22:52 Last Admin: 02/23/22 00:07 Dose: 10 mg Documented by: [id number] Oxycodone HCl (Oxycodone Hcl Ir 5 Mg Tab (Immediate Release)) 5 mg PO NOW ONE Stop: 02/23/22 01:12 Last Admin: 02/23/22 01:42 Dose: 5 mg Documented by: [id number] Oxycodone/Acetaminophen (Oxycodone/Acetaminophen 5mg/325mg Tab) 1 tab PO BID [facility] Stop: 03/09/22 11:44 Last Admin: 02/23/22 11:54 Dose: 1 tab Documented by: [id number] Pantoprazole Sodium (Pantoprazole 40 Mg Tab) 40 mg PO QAM [facility] Stop: 03/25/22 08:59 Last Admin: 02/23/22 08:49 Dose: 40 mg Documented by: [id number] Polyethylene Glycol (Polyethylene (Miralax) 17 Gm Pack) 34 gm PO BID [facility] Stop: 03/24/22 22:52 Last Admin: 02/23/22 08:44 Dose: Not Given Documented by: [id number] Admin: 02/23/22 00:08 Dose: Not Given Documented by: [id number] Trazodone HCl (Trazodone Hcl 100 Mg Tab) 100 mg PO [facility] Stop: 03/24/22 22:52 Last Admin: 02/23/22 00:08 Dose: 100 mg Documented by: [id number] Imaging Data Radiologist's Impression: Head CT 02/22/22 18:36 CT head/brain wo con CLINICAL HISTORY: seizures Technique: Contiguous axial CT images of the head were acquired from the base of the skull to the vertex without intravenous contrast administration. Images were viewed in brain, subdural and bone windows. Automated dose lowering techniques and/or adjustment according to patient size were utilized for this exam. Comparison: Comparison is made to CT head 02/20/2022 Findings: The ventricles, basal cisterns, and cerebral sulci are normal. There is no acute intracranial hemorrhage or evidence of acute territorial infarction. Neither mass effect, shift of the midline structures, nor abnormal extra-axial fluid collections are shown. Imaged portions of the paranasal sinuses and mastoid air cells are clear. The orbits appear normal. There are no acute fractures of the calvaria or scalp swelling. Impression: No acute intracranial hemorrhage, no evidence of acute territorial infarction or other acute intracranial disease process. ACT 112: Negative or not required by law. Electronically signed by: Unruly Mcneill M.D. 02/22/2022 7:18 PM Chest X-Ray 02/22/22 18:37 XR chest 1V portable CLINICAL HISTORY: Atypical chest pain TECHNIQUE: Single frontal radiograph of the chest was obtained. Comparison: Comparison is made to chest radiograph 02/20/2022 FINDINGS: No lines and tubes are seen. The cardiomediastinal silhouette is stable. The lungs are clear. No evidence of pleural effusion or pneumothorax. IMPRESSION: No acute chest disease. ACT 112: Negative or not required by law. Electronically signed by: Unruly Mcneill M.D. 02/22/2022 7:14 PM Discharge Plan Visit Data Chief Complaint: Seizure Stated Complaint: REQUESTED COVID TEST, SEIZURES, HEART ISSUES Discharge Problem: Seizure-like activity, Syncope Patient Disposition: Admitted As Inpatient Discharge Instructions Interventions: ED Discharge Assessment Last Done: 02/22/22 22:38
[2022-02-22 18:57] LABS: Basophils # (auto) 0.01 K/uL (0-0.2); Basophils % (auto) 0.1 %; Eosinophils # (auto) 0.12 K/uL (0-0.5); Eosinophils % (auto) 1.6 %; Immature Granulocytes # (auto) 0.03 K/uL (0.00-0.02); Immature Granulocytes % (auto) 0.4 %; Lymphocytes # (auto) 2.45 K/uL (1.2-3.4); Lymphocytes % (auto) 33.3 %; Mean Corpuscular Hemoglobin 32.1 pg (25-34); Mean Corpuscular Hgb Conc 34.9 g/dL (32-36); Mean Corpuscular Volume 92.1 fL (80-100); Mean Platelet Volume 11.3 fL (7.4-10.4); Monocytes # (auto) 0.57 K/uL (0.11-0.59); Monocytes % (auto) 7.7 %; Neutrophils # (auto) 4.18 K/uL (1.4-6.5); Neutrophils % (auto) 56.9 %; Platelet Count 179 K/uL (130-400); RDW Coefficient of Variation 13.8 % (11.5-14.5); RDW Standard Deviation 46.1 fL (36.4-46.3); Red Blood Count 4.67 M/uL (4.2-5.4); White Blood Count 7.36 K/uL (4.8-10.8)
--- NOTE | 2022-02-22 19:15 | XRay Report ---
XR chest 1V portable CLINICAL HISTORY: Atypical chest pain TECHNIQUE: Single frontal radiograph of the chest was obtained. Comparison: Comparison is made to chest radiograph 02/20/2022 FINDINGS: No lines and tubes are seen. The cardiomediastinal silhouette is stable. The lungs are clear. No evid ence of pleural effusion or pneumothorax. IMPRESSION: No acute chest disease. ACT 112: Negative or not required by law. Electronically signed by: Unruly Mcneill M.D. 02/22/2022 7:14 PM
[2022-02-22 19:19] LABS: Albumin Globulin Ratio 1.2 (0.9-2); Albumin Level 3.8 gm/dl (3.4-5.0); BUN Creatinine Ratio 6.7 (10-20); Bilirubin,Total 0.5 mg/dl (0.2-1.0); Calcium 9.9 mg/dl (8.5-10.1); Creatinine Clr Calc Pharmacy 132.5 ml/min; Est GFR (African American) 120.6 ml/min; Est GFR (Non-African American) 104.1 ml/min; Globulin 3.3 gm/dl (2.5-4.0); Magnesium 1.7 mg/dl (1.7-2.4); Phosphorus 3.6 mg/dl (2.5-4.9); Potassium 3.7 mmol/L (3.5-5.1); Total Protein 7.1 gm/dl (6.0-8.3)
--- NOTE | 2022-02-22 19:19 | CT Scan Report ---
CT head/brain wo con CLINICAL HISTORY: seizures Technique: Contiguous axial CT images of the head were acquired from the base of the skull to the jacinto morgan without intravenous contrast administration. Images were viewed in brain, subdural and bone [facility]. Automated dose lowering techniques and/or adjustment according to patient size were utilized for this exam. Comparison: Comparison is made to CT head 02/20/2022 Findings: The ventricles, basal cisterns, and cerebral sulci are normal. There is no acute intracranial hemorrh age or evidence of acute territorial infarction. Neither mass effect, shift of the midline structures , nor abnormal extra-axial fluid collections are shown. Imaged portions of the paranasal sinuses and mastoid air cells are clear. The orbits appear normal. There are no acute fractures of the calvaria or scalp swelling. Impression: No acute intracranial hemorrhage, no evidence of acute territorial infarction or other acute intracra nial disease process. ACT 112: Negative or not required by law. Electronically signed by: Unruly Mcneill M.D. 02/22/2022 7:18 PM
[2022-02-22 19:21] LABS: Troponin I High Sensitivity 4.4 pg/ml (0-14)
--- NOTE | 2022-02-22 20:44 | History & Physical Report ---
Date of Service February 22, 2022 Assessment & Plan (1) Seizure: Plan: Patient is a 51 yo female with PMHx of DM2, HTN, HLD, partial SBO, cervical radicular pain, chronic pain, COPD, and liver cirrhosis admitted for reports of both witnessed and unwitnessed seizures. Seizure - Head CT 02/22: no acute ICH, evidence of acute territorial infarction, or other acute intracranial disease process - CXR 02/22: no acute processes - MRI brain, pending - EEG ordered, pending - Hyperglycemia otherwise CBC and BMP unremarkable - TSH 02/20 wnl at 0.693 - Check orthostatic vital signs - Loaded with 1g Keppra in ED - Seizure precautions and fall precautions in place - Neuro consult. Appreciate their recommendations. Lyme testing abnormality - Lyme disease IgM equivocal on testing 02/20 - Patient started on doxycycline at that time, continue doxycycline for now - IgG and IgM banding labs are pending DM2 - Most recent A1c - Continue home Lantus 48 units SQ BID - ISS COPD - Continue home inhalers Chronic pain - Continue home regimen including flexeril, voltaren gel, trazodone, lidoderm patch, gabapentin, and oxycodone FENGI: DM2 diet Code status: FULL CODE (2) Hyperglycemia due to type 2 diabetes mellitus: (3) Headache: (4) Borderline results on serologic testing for Lyme disease: (5) Hyperlipidemia: (6) Chronic low back pain with left-sided sciatica: History of Present Illness Primary Care Provider: Aneudy Pérez MD Marcio Vick is a 51 yo female with PMHx of DM2, HTN, HLD, partial SBO, cervical radicular pain, chronic pain, COPD, and liver cirrhosis who presented to the ER with concern for seizures. Patient notes a hx of anxiety and panic attacks that first started in 1995; she reports overall doing well from an anxiety standpoint until about January of this year (last month) when she had increased emotional family stressors. Patient reports increasing anxiety and panic attacks but she does not describe the panic attacks. She reports managing these "attacks" well, though, and states "I know how to breathe and all that good stuff." Also takes gabapentin which helps to manage anxiety. Has historically used Ativan prn in the past but denies Ativan use over the past month. Main concern though, today, is seizures. Patient states that 10 days ago, she had a fall with subsequent head trauma and MCNULTY. The MCNULTY has been constant for 10 days and has been described as "the worst CMNULTY of her life;" pain is located on entire right side of head and radiates throughout right side of the body (including neck, arm, chest, trunk, and lower extremity). Intensity/characteristic of headache pain has not changed over the past 10 days. On Tuesday (6 days ago), she traveled to [place] to visit her aunt due to aunt's declining health and subsequent passing/. On (4 days ago), while in [place], patient states that she had a 5 minute long seizure witnessed by her dad, sister, [id number], and son. Seizure described as patient's body being rigid, eyes closed, head back, and "moving a little bit." Patient states, "I remember my dad saying come back" and when patient woke up she felt very disoriented for approximately 10-15 minutes after the episode. Patient also had urinary incontinence during the episode; no bowel incontinence. Patient did not want to seek medical evaluation in [place] so she returned home to [place] on Tuesday. Patient reports another seizure upon returning home on Tuesday; unwitnessed but again with urinary incontinence and disorientation for 10-15 min after episode. Another 2 unwitnessed seizures yesterday, again with urinary incontinence and disorientation. Patient has not had any seizure episodes today. Reports no prodrome to seizure. States that the episodes can come on at any time and she has been unable to identify a trigger. Patient admits to poor glycemic control but no recent hypoglycemia. Admits to poor dietary intake and notes that she only eats twice daily, once in the AM and once in the PM. On ROS, patient reports frequent lightheadedness and dizziness with standing and ambulation. + MCNULTY. + mild fever. + chills in evening. + nausea. + right hand numbness. + speech difficulty when gets stressed. + muscle pain with "shocking" pains down neck. + poor sleep (has only been sleeping 2-3 hours per night). No vomiting. Recent changes to medication regimen: added doxycycline due to Lyme test equivocal and further results pending. Trulicity dose increased. Social Hx: former smoker; no alcohol use; no recreational drug use Has received COVID vaccine x2 + booster x1 Code status: FULL CODE Allergies Allergy/AdvReac Type Severity Reaction Status Date / Time acetaminophen AdvReac Severe LIVER Verified 02/22/22 18:53 COMPLICATIONS cephalexin AdvReac Severe Vomiting Verified 02/22/22 18:53 levofloxacin [From Levaquin] AdvReac Intermediate Vomiting Verified 02/22/22 18:53 Home Medications Medication Instructions Recorded Confirmed Type cyclobenzaprine 10 mg tablet 10 mg PO BID PRN #0 11/18/17 02/22/22 History gabapentin 600 mg tablet 1,200 mg PO TID #0 tab 11/18/17 02/22/22 History albuterol sulfate 90 mcg/actuation 2 puff INHALATION Q4H PRN #0 02/10/18 02/22/22 History aerosol inhaler (Ventolin HFA) ibuprofen 800 mg tablet 800 mg PO TID PRN 10/24/19 02/22/22 History promethazine 25 mg tablet 25 mg PO Q6H PRN 10/24/19 02/22/22 History oxycodone-acetaminophen 10 mg-325 1 tab PO Q6H PRN #20 tab 02/11/20 Rx mg tablet (Percocet) dulaglutide 1.5 mg/0.5 mL 4.5 mg SUBCUT WK 05/19/20 02/22/22 History subcutaneous pen injector (Trulicity) fluticasone 232 mcg-salmeterol 14 2 inh INHALATION BID PRN 08/21/20 02/22/22 History mcg/actuation breath activated powdr montelukast 10 mg tablet 10 mg PO HS 09/01/20 02/22/22 History (Singulair) aspirin 81 mg tablet,delayed 81 mg PO QAM 10/28/20 02/22/22 History release ipratropium 0.5 mg-albuterol 3 mg 3 ml INHALATION QID PRN 02/12/21 02/22/22 History (2.5 mg base)/3 mL nebulization soln insulin aspart U-100 100 unit/mL 12 unit SC TID ml 02/23/21 02/22/22 History (3 mL) subcutaneous pen (Novolog Flexpen U-100 Insulin aspart) insulin glargine 100 unit/mL (3 48 unit SUBCUT BID ml 02/23/21 02/22/22 History mL) subcutaneous pen (Lantus Solostar U-100 Insulin) cyclosporine 0.05 % eye drops in a 2 drp OPHTHALMIC (EYE) Q12H 04/17/21 02/22/22 History dropperette (Restasis) sennosides 8.6 mg-docusate sodium 1 tab PO QAM PRN 06/23/21 02/22/22 History 50 mg tablet (Senokot-S) diclofenac sodium 1 % topical gel 4 g TOPICAL QID PRN 07/20/21 02/22/22 History duloxetine 40 mg capsule,delayed 40 mg PO HS 11/28/21 02/22/22 History release albuterol sulfate 2.5 mg INHALATION DAILY PRN 01/19/22 02/22/22 History famotidine 40 mg tablet 40 mg PO BID 01/19/22 02/22/22 History fluticasone propionate 50 1 spray INTRANASAL DAILY PRN 01/19/22 02/22/22 History mcg/actuation nasal spray,suspension lidocaine 5 % topical patch 1 patch TRANSDERMAL DAILY PRN 01/19/22 02/22/22 History nystatin 100,000 unit/gram topical 1 applic TOPICAL DAILY PRN 01/19/22 02/22/22 History powder pantoprazole 20 mg tablet,delayed 20 mg PO QAM 01/19/22 02/22/22 History release polyethylene glycol 3350 17 34 g PO BID 01/29/22 02/22/22 History gram/dose oral powder (Miralax) trazodone 100 mg tablet 100 mg PO HS 01/29/22 02/22/22 History doxycycline hyclate 100 mg capsule 100 mg PO BID 7 Days #14 cap 02/21/22 02/22/22 Rx Past Med/Surg History Medical History (Updated 02/23/22 @ 06:23 by Anny Colunga DO) Abdominal pain Acute hyperglycemia Anxiety Brain cyst Chest pain Chronic low back pain with left-sided sciatica Chronic obstructive pulmonary disease Dental abscess Depression Elevated lactic acid level Emphysema of lung Encounter for pre-operative examination Hx of blood clots Hyperglycemia Hyperglycemia Hyperglycemia due to type 2 diabetes mellitus Hyperlipidemia Hypertension Hypokalemia Hypomagnesemia Hyponatremia Insulin dependent diabetes mellitus Lightheadedness Medication reaction Obesity Periapical abscess with facial involvement Pulmonary embolism Reports was anticoagulation x 60 days, not on chronic anticoagulation Seizure Syncope Thrombocytopenia Tinea corporis Tinea cruris Uncontrolled type 2 diabetes mellitus Surgical History History of laparoscopic cholecystectomy Hx of oral surgery (02/15/20) Acute right submandibular, submental space infection with floor of mouth infection caused by infected lower teeth. Dr. Rios 02/15/20 S/P dilation and curettage S/P laparoscopic hernia repair S/P laparoscopic procedure ovarian cyst surgery Family History Mother , 73 Heart disease Cancer Father Skin cancer Brother No problems noted. Sister No problems noted. Grandmother (Maternal) , 48 Heart disease T2DM (type 2 diabetes mellitus) Grandmother (Paternal) , 83 Heart disease Kidney disease Uncle T2DM (type 2 diabetes mellitus) Other Diabetes Obesity Denies family history of Ovarian cancer Breast cancer Colorectal cancer Uterine cancer Social History Smoking Status: Former smoker Tobacco Type: Cigarettes Cigarettes Per Day: 5; Second Hand Exposure: Yes; Do You Dip or Chew Tobacco: No; Hx Alcohol Use: No Hx Substance Use: No Preferred Language: Japanese Communication Ability: Effective Visual Impairment: No Limitations Hearing Ability: Normal Interlacer Required: No Beliefs That Will Affect Care: None marital status: Current Living Situation: Alone Current Living Situation Comment: Lives with son (14 yo) current occupational status: unemployed How many Children do You have: 1 Other Information That Helps Us Care for You: No Feels Safe at Home: Yes Safety Concerns: Feels Safe At This Time Assistive Devices: Glasses Review of Systems Review of Systems: See HPI Physical Exam Physical Exam: Physical exam as below performed by Dr. Montenegro General: patient resting comfortably, NAD, non-toxic in appearance, AA&O x 4 Skin: warm, dry, intact, no rashes or lesions HEENT: NC/AT, PERRL, EOMI, anicteric sclera, conjunctiva without injection, external ear normal to inspection and nontender, nares patent, moist mucus membranes, dentition intact, no oropharyngeal lesions, neck supple, trachea midline, no LAD, no thyromegaly, no JVD Heart: +S1/S2, regular, no m/r/g Lungs: equal air entry bilaterally, no rales/rhonchi/wheezes Abd: +BS, soft, NT/ND, no masses/organomegaly/ascites Ext: warm, 2+ pulses in UE/LE bilaterally, no clubbing/cyanosis or edema Neuro: nonfocal, patient AA&O x 4, speech intact, some word finding difficulty, no facial droop, moving all extremities on command with equal strength 5/5 Results & Data Results & Data ([facility]) Vital Signs (Past 12 Hours) Vital Signs Temp Pulse Pulse Resp BP BP Pulse Ox 02/22/22 19:30 95 H 16 132/87 95 02/22/22 19:00 92 H 17 127/85 96 02/22/22 18:50 93 H 19 140/92 97 02/22/22 18:36 94 H 18 140/92 97 02/22/22 18:16 37 C 99 H 18 157/93 H 96 Laboratory Results 02/22/22 02/22/22 02/22/22 Range/Units 19:47 18:46 18:46 WBC 7.36 (4.8-10.8) K/uL RBC 4.67 (4.2-5.4) M/uL Hgb 15.0 (12.0-16.0) g/dL Hct 43.0 (37-47) % MCV 92.1 (80-100) fL MCH 32.1 (25-34) pg MCHC 34.9 (32-36) g/dL RDW Std Deviation 46.1 (36.4-46.3) fL RDW Coeff of Kelli 13.8 (11.5-14.5) % Plt Count 179 (130-400) K/uL MPV 11.3 H (7.4-10.4) fL Immature Gran % (Auto) 0.4 % Neut % (Auto) 56.9 % Lymph % (Auto) 33.3 % Hemphill % (Auto) 7.7 % Eos % (Auto) 1.6 % Baso % (Auto) 0.1 % Neut # (Auto) 4.18 (1.4-6.5) K/uL Lymph # (Auto) 2.45 (1.2-3.4) K/uL Hemphill # (Auto) 0.57 (0.11-0.59) K/uL Eos # (Auto) 0.12 (0-0.5) K/uL Baso # (Auto) 0.01 (0-0.2) K/uL Immature Gran # (Auto) 0.03 H (0.00-0.02) K/uL Sodium 137 (136-145) mmol/L Potassium 3.7 (3.5-5.1) mmol/L Chloride 104 (98-107) mmol/L Carbon Dioxide 25 (21-32) mmol/L Anion Gap 8 (3-11) BUN 4 L (6-23) mg/dl Creatinine 0.60 (0.6-1.2) mg/dl Est Cr Clr Drug Dosing 132.5 ml/min Est GFR ( Amer) 120.6 ml/min Est GFR (Non-Af Amer) 104.1 ml/min BUN/Creatinine Ratio 6.7 L (10-20) Glucose 265 H (70-99(Fasting)) mg/dl Calcium 9.9 (8.5-10.1) mg/dl Phosphorus 3.6 (2.5-4.9) mg/dl Magnesium 1.7 (1.7-2.4) mg/dl Total Bilirubin 0.5 (0.2-1.0) mg/dl AST 17 (13-39) U/L ALT 17 (7-52) U/L Alkaline Phosphatase 119 H (34-104) U/L Troponin I High Sens 4.4 (0-14) pg/ml Total Protein 7.1 (6.0-8.3) gm/dl Albumin 3.8 (3.4-5.0) gm/dl Globulin 3.3 (2.5-4.0) gm/dl Albumin/Globulin Ratio 1.2 (0.9-2) SARS-CoV-2, RNA, NAAT NEGATIVE (NEGATIVE) Diagnostic Findings [facility], [place] [phone] CT Scan Report Patient:MARCIO VICK Admit Date:02/22/22 MR#:[id number] Address1:[address] Acct ID:[id number] Address2: Date:1970 [facility] Zip:[place] [address] Age:51 Location:ED Sex:F Room/Bed: Att Phy: Diagnosis: REQUESTED COVID TEST, SEIZURES, HEART ISSUES Joanne Phy:Aiden Pérez MD Service Date:02/22/22 [facility] Phy: Interpreting Phy:Unruly Mcneill [facility] Phy: Ordering Phy:Urbano Harper MD cc: ~ CT head/brain wo con CLINICAL HISTORY: seizures Technique: Contiguous axial CT images of the head were acquired from the base of the skull to the vertex without intravenous contrast administration. Images were viewed in brain, subdural and bone windows. Automated dose lowering techniques and/or adjustment according to patient size were utilized for this exam. Comparison: Comparison is made to CT head 02/20/2022 Findings: The ventricles, basal cisterns, and cerebral sulci are normal. There is no acute intracranial hemorrhage or evidence of acute territorial infarction. Neither mass effect, shift of the midline structures, nor abnormal extra-axial fluid collections are shown. Imaged portions of the paranasal sinuses and mastoid air cells are clear. The orbits appear normal. There are no acute fractures of the calvaria or scalp swelling. Impression: No acute intracranial hemorrhage, no evidence of acute territorial infarction or other acute intracranial disease process. ACT 112: Negative or not required by law. Electronically signed by: Unruly Mcneill M.D. 02/22/2022 7:18 PM Dictated:02/22/221917 Transcribed: 02/22/221917 [place], [place] [phone] XRay Report Patient:MARCIO VICK Admit Date:02/22/22 MR#:[id number] Address1:[address] Acct ID:[id number] Address2: Date:1970 [facility] Zip:[place] [address] Age:51 Location:ED Sex:F Room/Bed: Att Phy: Diagnosis:DR. LIN COVID TEST, SEIZURES, HEART ISSUES Joanne Phy:Aiden Pérez MD Service Date:02/22/22 [facility] Phy: Interpreting Phy:Unruly Mcneill MDAdmit Phy: Ordering Phy:Urbano Harper MD cc: ~ XR chest 1V portable CLINICAL HISTORY: Atypical chest pain TECHNIQUE: Single frontal radiograph of the chest was obtained. Comparison: Comparison is made to chest radiograph 02/20/2022 FINDINGS: No lines and tubes are seen. The cardiomediastinal silhouette is stable. The lungs are clear. No evidence of pleural effusion or pneumothorax. IMPRESSION: No acute chest disease. ACT 112: Negative or not required by law. Electronically signed by: Unruly Mcneill M.D. 02/22/2022 7:14 PM Dictated:02/22/221912 Transcribed: 02/22/221912 Supervising Physician Co-Signing Physician Notes Patient seen and examined, chart reviewed, case discussed with Dr. Colunga and I agree with the assessment and plan as above. 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
[2022-02-22] MEDS ORDERED: DEXTROSE 50% 50 ML SYRINGE IV PRN (22:53)
[2022-02-22] MEDS ORDERED: GLUCAGON FOR INJ 1 MG VIAL SQ PRN (22:53)
[2022-02-22] MEDS ORDERED: PROMETHAZINE HCL 25 MG TAB PO PRN (22:53)
[2022-02-22] MEDS ORDERED: DICLOFENAC SOD 1% GEL 100 GM TUBE EXT PRN (22:53)
[2022-02-22] MEDS ORDERED: DOCUSATE SODIUM/SENNA 50/8.6MG TAB PO PRN (22:53)
[2022-02-22] MEDS ORDERED: CARBOHYDRATES FOR HYPOGLYCEMIA PO PRN (22:53)
[2022-02-22] MEDS ORDERED: LIDOCAINE 5% 1 PATCH TD PRN (22:53)
[2022-02-22] MEDS ORDERED: GLUCOSE 40% GEL 15 GM TUBE PO PRN (22:53)
[2022-02-22] MEDS ORDERED: ALBUTEROL HFA 8 GM INHALER INH PRN (22:53)
[2022-02-22] MEDS ORDERED: FLUTICASONE PROPIONATE NA SPR 16 GM BTL PRN (22:53)
[2022-02-22] MEDS ORDERED: LORazepam 2 MG/1 ML VIAL IV PRN (22:53)
[2022-02-22] MEDS ORDERED: traZODone HCL 100 MG TAB PO SCH (22:53)
[2022-02-22] MEDS ORDERED: DOCUSATE SODIUM 100 MG CAP PO PRN (22:53)
[2022-02-22] MEDS ORDERED: ONDANSETRON INJ 2 MG/ML 2 ML VIAL IV PRN (22:53)
[2022-02-22] MEDS ORDERED: IBUPROFEN 800 MG TAB PO PRN (22:53)
[2022-02-22] MEDS ORDERED: MONTELUKAST SODIUM 10 MG TABLET PO SCH (22:53)
[2022-02-22] MEDS ORDERED: ALBUTEROL 0.083% NEBU SOLN 3 ML VIAL INH PRN (22:53)
[2022-02-22] MEDS ORDERED: GLUCOSE 10 TABS/TUBE PO PRN (22:53)
[2022-02-22] MEDS ORDERED: CYCLOBENZAPRINE HCL 10 MG TAB PO PRN (22:53)
[2022-02-22] MEDS ORDERED: DULoxetine HCL 20 MG CAP PO SCH (22:53)
[2022-02-22] MEDS ORDERED: ALBUT/IPRATROP 3MG/0.5MG NEB 3 ML VIAL INH PRN (22:53)
[2022-02-22] MEDS ORDERED: NYSTATIN POWDER 15GM BTL EXT PRN (22:53)
[2022-02-23] MEDS: POLYETHYLENE (MIRALAX) 17 GM PACK PO SCH ×2 (00:08→08:44)
[2022-02-23] MEDS: FAMOTIDINE 40 MG TABLET PO SCH ×2 (00:08→08:48)
[2022-02-23] MEDS: INSULIN GLARGINE 100 UNIT/ML VIAL SQ SCH ×2 (00:09→08:51)
[2022-02-23] MEDS: GABAPENTIN 600 MG TAB PO SCH ×3 (00:26→14:00)
[2022-02-23] MEDS: DOXYCYCLINE HYCLATE 100 MG CAP PO SCH ×2 (00:27→08:47)
[2022-02-23] MEDS ORDERED: oxyCODONE HCL IR 5 MG TAB (IMMEDIATE RELEASE) PO ONE (01:11)
[2022-02-23] MEDS ORDERED: GADOBUTROL 65ML VIAL IV ONE (01:18)
[2022-02-23 08:22] LABS: Appearance Urine Clear (Clear); Bacteria Urine Automated 1+ (Negative); Bilirubin Urine Negative (Negative); Blood Urine Negative (Negative); Color Urine Yellow; Epithelial Cell Urine Auto >30 /lpf (0-5); Glucose Urine UA Trace (Negative); Ketones Urine Negative (Negative); Leukocyte Esterase Urine 1+ (Negative); Nitrite Urine Negative (Negative); Protein Urine 2+ (Negative); Specific Gravity Urine 1.028 (1.000-1.030); Urobilinogen Urine Negative (Negative)
[2022-02-23 08:23] LABS: Basophils # (auto) 0.01 K/uL (0-0.2); Basophils % (auto) 0.2 %; Eosinophils # (auto) 0.16 K/uL (0-0.5); Hematocrit (blood only) 39.7 % (37-47); Hemoglobin 13.2 g/dL (12.0-16.0); Immature Granulocytes # (auto) 0.01 K/uL (0.00-0.02); Immature Granulocytes % (auto) 0.2 %; Lymphocytes # (auto) 2.14 K/uL (1.2-3.4); Lymphocytes % (auto) 40.2 %; Mean Corpuscular Hemoglobin 31.2 pg (25-34); Mean Corpuscular Hgb Conc 33.2 g/dL (32-36); Mean Corpuscular Volume 93.9 fL (80-100); Mean Platelet Volume 10.8 fL (7.4-10.4); Monocytes # (auto) 0.45 K/uL (0.11-0.59); Monocytes % (auto) 8.4 %; Neutrophils # (auto) 2.56 K/uL (1.4-6.5); Platelet Count 146 K/uL (130-400); RDW Standard Deviation 47.9 fL (36.4-46.3); Red Blood Count 4.23 M/uL (4.2-5.4); White Blood Count 5.33 K/uL (4.8-10.8)
[2022-02-23] MEDS ORDERED: ASPIRIN 81 MG ECTAB PO SCH (09:00)
[2022-02-23] MEDS ORDERED: PANTOprazole 40 MG TAB PO SCH (09:00)
[2022-02-23 09:01] LABS: BUN Creatinine Ratio 9.1 (10-20); Calcium 8.9 mg/dl (8.5-10.1); Creatinine Clr Calc Pharmacy 144.5 ml/min; Est GFR (African American) 124.1 ml/min; Est GFR (Non-African American) 107.1 ml/min; Potassium 3.6 mmol/L (3.5-5.1)
--- NOTE | 2022-02-23 09:21 | Neurology Consultation ---
Date of Consultation February 23, 2022 Assessment & Plan (1) Seizure-like activity: 51-year-old female presenting with recurrent seizure-like episodes. Would consider convulsive syncope versus provoked seizures occurring in the context of poorly controlled diabetes mellitus, chronic pain, polypharmacy, stress/anxiety or other environmental/contextual factors. She has chronic right sided cervical radicular pain, and probably has an element of cervicogenic headache. She has been evaluated previously for lumbar radiculopathy as well and also has a large sacral Tarlov cyst that has been evaluated previously. Recent neuroimaging including CT of the head and gadolinium enhanced brain MRI with seizure protocol are unremarkable. Follow-up with the formal radiology interpretation regarding the brain MRI. Per my review, no significant abnormalities. Follow-up with ordered EEG, should be completed today. As this patient has had several seizure-like episodes over the past week, I would recommend continuing with Keppra for the time being. Would recommend Keppra 500 mg p.o. twice daily. However, I do have some clinical suspicion that the episodes are provoked and are occurring in the context of multiple factors as listed above. Patient will also need additional outpatient EEG evaluation, prolonged ambulatory EEG monitoring, possibly followed by a referral to an epilepsy center. Patient should be instructed not to drive a motor vehicle. A report with the Department of Transportation should be filed if not already done so. I do not have any further specific recommendations for this patient's chronic pain at this point in time. She is already prescribed Cymbalta, Flexeril, and gabapentin. Patient may continue with these medications although I do have some concern regarding her gabapentin dosage which is relatively high, 1200 mg 3 times per day. I would not typically endorse such a high dosage of this medication. Would consider reducing the dosage to 800 mg 3 times per day. Of course, patient would not likely tolerate dosage reduction. Would consider consultation with pain management for further assistance. History of Present Illness Reason for Consultation: seizure Requesting Physician: Shavonne Montenegro DO Attending Physician: Aneudy Pérez MD History of Present Illness The patient is a 51-year-old female who presented to the emergency department yesterday for further evaluation and management of recent seizure-like episodes. She is a somewhat unreliable historian and reports a history of recurrent loss of consciousness, occurring without warning, but with perhaps associated loss of bladder control, possibly beginning over the past week or 2, reporting about 4-5 discrete episodes. At least 1 of these episodes was witnessed by her father who apparently observed stiffening and shaking, lasting about 5 minutes. She was confused afterwards. She was apparently evaluated in the [facility] emergency department after that episode on February 20. At that point in time, she had reported that she had fallen to the ground 2 previous times, one on , another on Tuesday, falling backwards, was stiff afterwards for a few minutes, before getting up. Evaluation at that time was fairly unremarkabl e, she had equivocal Lyme testing and was discharged with a prescription for doxycycline. She was evaluated previously in the emergency department on February 01, 2022 for hypertension, syncope, and hyperglycemia. Past medical history notable for type 2 diabetes mellitus, hypertension, hyperlipidemia, partial small bowel obstruction, cervical radiculopathy, chronic pain, COPD, liver cirrhosis. She had been evaluated by Dr. Middleton November 13, 2020 during an admission to the [facility] for acute left-sided weakness, headache, cervical radicular pain, occurring in the context of acute hyperglycemia. No acute neurologic process was identified at that time. Differential diagnosis also included complicated migraine. Currently, the patient is without specific or focal complaint other than a chronic low-grade right sided headache. When I entered the room she was comfortably speaking on her cell phone with a family member. She reports very poor recollection for the above episodes and denies experiencing any specific warning signs. She denies a prior history of epilepsy or seizure disorder. She does endorse recent significant stressors and is aware that her diabetes has been poorly controlled. Allergies Allergy/AdvReac Type Severity Reaction Status Date / Time acetaminophen AdvReac Severe LIVER Verified 02/22/22 18:53 COMPLICATIONS cephalexin AdvReac Severe Vomiting Verified 02/22/22 18:53 levofloxacin [From Levaquin] AdvReac Intermediate Vomiting Verified 02/22/22 18:53 Home Medications Medication Instructions Recorded Confirmed Type cyclobenzaprine 10 mg tablet 10 mg PO BID PRN #0 11/18/17 02/22/22 History gabapentin 600 mg tablet 1,200 mg PO TID #0 tab 11/18/17 02/22/22 History albuterol sulfate 90 mcg/actuation 2 puff INHALATION Q4H PRN #0 02/10/18 02/22/22 History aerosol inhaler (Ventolin HFA) ibuprofen 800 mg tablet 800 mg PO TID PRN 10/24/19 02/22/22 History promethazine 25 mg tablet 25 mg PO Q6H PRN 10/24/19 02/22/22 History oxycodone-acetaminophen 10 mg-325 1 tab PO Q6H PRN #20 tab 02/11/20 Rx mg tablet (Percocet) dulaglutide 1.5 mg/0.5 mL 4.5 mg SUBCUT WK 05/19/20 02/22/22 History subcutaneous pen injector (Trulicity) fluticasone 232 mcg-salmeterol 14 2 inh INHALATION BID PRN 08/21/20 02/22/22 History mcg/actuation breath activated powdr montelukast 10 mg tablet 10 mg PO HS 09/01/20 02/22/22 History (Singulair) aspirin 81 mg tablet,delayed 81 mg PO QAM 10/28/20 02/22/22 History release ipratropium 0.5 mg-albuterol 3 mg 3 ml INHALATION QID PRN 02/12/21 02/22/22 History (2.5 mg base)/3 mL nebulization soln insulin aspart U-100 100 unit/mL 12 unit SC TID ml 02/23/21 02/22/22 History (3 mL) subcutaneous pen (Novolog Flexpen U-100 Insulin aspart) insulin glargine 100 unit/mL (3 48 unit SUBCUT BID ml 02/23/21 02/22/22 History mL) subcutaneous pen (Lantus Solostar U-100 Insulin) cyclosporine 0.05 % eye drops in a 2 drp OPHTHALMIC (EYE) Q12H 04/17/21 02/22/22 History dropperette (Restasis) sennosides 8.6 mg-docusate sodium 1 tab PO QAM PRN 06/23/21 02/22/22 History 50 mg tablet (Senokot-S) diclofenac sodium 1 % topical gel 4 g TOPICAL QID PRN 07/20/21 02/22/22 History duloxetine 40 mg capsule,delayed 40 mg PO HS 11/28/21 02/22/22 History release albuterol sulfate 2.5 mg INHALATION DAILY PRN 01/19/22 02/22/22 History famotidine 40 mg tablet 40 mg PO BID 01/19/22 02/22/22 History fluticasone propionate 50 1 spray INTRANASAL DAILY PRN 01/19/22 02/22/22 History mcg/actuation nasal spray,suspension lidocaine 5 % topical patch 1 patch TRANSDERMAL DAILY PRN 01/19/22 02/22/22 History nystatin 100,000 unit/gram topical 1 applic TOPICAL DAILY PRN 01/19/22 02/22/22 History powder pantoprazole 20 mg tablet,delayed 20 mg PO QAM 01/19/22 02/22/22 History release polyethylene glycol 3350 17 34 g PO BID 01/29/22 02/22/22 History gram/dose oral powder (Miralax) trazodone 100 mg tablet 100 mg PO HS 01/29/22 02/22/22 History doxycycline hyclate 100 mg capsule 100 mg PO BID 7 Days #14 cap 02/21/22 02/22/22 Rx Patient History Medical History Abdominal pain Acute hyperglycemia Anxiety Brain cyst Chest pain Chronic low back pain with left-sided sciatica Chronic obstructive pulmonary disease Dental abscess Depression Elevated lactic acid level Emphysema of lung Encounter for pre-operative examination Hx of blood clots Hyperglycemia Hyperglycemia Hyperglycemia due to type 2 diabetes mellitus Hyperlipidemia Hypertension Hypokalemia Hypomagnesemia Hyponatremia Insulin dependent diabetes mellitus Lightheadedness Medication reaction Obesity Periapical abscess with facial involvement Pulmonary embolism Reports was anticoagulation x 60 days, not on chronic anticoagulation Seizure Syncope Thrombocytopenia Tinea corporis Tinea cruris Uncontrolled type 2 diabetes mellitus Surgical History History of laparoscopic cholecystectomy Hx of oral surgery (02/15/20) Acute right submandibular, submental space infection with floor of mouth infection caused by infected lower teeth. Dr. Rios 02/15/20 S/P dilation and curettage S/P laparoscopic hernia repair S/P laparoscopic procedure ovarian cyst surgery Family History Mother , 73 Heart disease Cancer Father Skin cancer Brother No problems noted. Sister No problems noted. Grandmother (Maternal) , 48 Heart disease T2DM (type 2 diabetes mellitus) Grandmother (Paternal) , 83 Heart disease Kidney disease Uncle T2DM (type 2 diabetes mellitus) Other Diabetes Obesity Denies family history of Ovarian cancer Breast cancer Colorectal cancer Uterine cancer Social History Smoking Status: Former smoker Tobacco Type: Cigarettes Cigarettes Per Day: 5; Second Hand Exposure: Yes; Do You Dip or Chew Tobacco: No; Hx Alcohol Use: No Hx Substance Use: No Preferred Language: Korean Communication Ability: Effective Visual Impairment: No Limitations Hearing Ability: Normal Dialysis Social Worker Required: No Beliefs That Will Affect Care: None marital status: Current Living Situation: Alone Current Living Situation Comment: Lives with son (14 yo) current occupational status: unemployed How many Children do You have: 1 Other Information That Helps Us Care for You: No Feels Safe at Home: Yes Safety Concerns: Feels Safe At This Time Assistive Devices: Glasses Review of Systems Constitutional: no fever and no chills Eyes: no blind spots and no diplopia Ear, Nose, Mouth, Throat: no ear pain and no hearing loss Respiratory: no cough and no dyspnea Cardiovascular: no chest pain and no palpitations Gastrointestinal: no constipation and no diarrhea/loose stools Genitourinary: no urinary urgency and no urinary incontinence Musculoskeletal: no muscle weakness and no muscle atrophy Integumentary: no rash and no lesions Neurologic: as per Subjective / HPI, + falls, + seizure-like activity, + syncope and + headache(s); no localized weakness, no loss of sensation, no tremor(s) and no abnormal movements Psychiatric: no behavioral changes, no depression, no abnormal sleep pattern and no anxiety Hematologic / Lymphatic: no easy bruising and no lymphadenopathy Exam (Neuro) Constitutional: well developed and well nourished; no acute distress Eyes: normal visual pond by confrontation, PERRL, normal accommodation and EOM intact bilaterally; no fundoscopic abnormality, no nystagmus and no papilledema Cardiovascular: Vessels: normal carotid upstroke; no carotid bruit Neurologic: Oriented to:: Person, Place and Time Memory: Short Term Intact and Remote Intact Attention: Span Intact and Concentration Intact Language: Naming Objects and Repeating Phrases Speech Fluency: negative Dysarthria Speech Aphasia: negative Aphasia Fund of Knowledge: Current Events, Past History and Vocabulary Cranial Nerves: Normal II (Visual pond full to confrontation, visual acuity normal), III, IV, (Pupils equal round reactive to light and accommodation, eye movements normal), V (Facial sensation intact), VII (There is no facial droop or weakness), VIII (Hearing intact), IX, X (Palate elevates to midline), XI (Shoulder shrug intact) and XII (Tongue protrudes to midline) Motor Strength: Normal Lower Extremities and Normal Upper Extremities; negative Pronator Drift Motor Tone: Normal Lower Extremities and Normal Upper Extremities Muscle Bulk/Involuntary Movements: No Involuntary Movements; negative Muscle Atrophy Sensation: Light Touch Intact, Pain/Temperature Intact, Vibration Intact and Proprioception Intact Coordination: Normal; negative Limited Balance, Dysdiadochokinesia, Finger-Nose Abnormal or Heel-Prieto Abnormal Deep Tendon Reflexes: Rt Triceps: 2+, Lt Triceps: 2+, Rt Biceps: 2+, Lt Biceps: 2+, Rt Brachioradialis: 2+, Lt Brachioradialis: 2+, Rt Patellar: 2+, Lt Patellar: 2+, Rt Ankle: 1+ and Lt Ankle: 1+ Special Tests: negative Babinski Present Gait: Normal Station and Gait Results & Data ([facility]) Vital Signs (Past 12 Hours) Vital Signs Temp Pulse Pulse Resp BP BP Pulse Ox 02/22/22 22:58 36.4 C L 84 16 129/84 100 02/22/22 22:00 88 17 107/71 96 02/22/22 21:30 89 17 114/77 97 02/22/22 21:17 90 17 138/88 98 02/22/22 20:32 89 20 139/93 100 Laboratory Results WBC 5.33, hemoglobin 13.2, hematocrit 39.7, MCV 93.9, platelet count 146, sodium 137, potassium 3.7, BUN 4, creatinine 0.60, glucose 265, calcium 9.9, magnesium 1.7, AST 17, ALT 17, high-sensitivity troponin 4.4. Diagnostic Findings CT of the head completed yesterday negative for hemorrhage or acute process. I independently reviewed the recently completed brain MRI. No areas of restricted diffusion. No hydrocephalus or Chiari malformation. No significant parenchymal T2 or FLAIR signal abnormality. The hippocampal regions are symmetric with normal signal with seizure protocol sequences. No significant abnormal postcontrast enhancement. Radiologist's interpretation of brain MRI pending at this time. Electrocardiogram reveals sinus tachycardia, left ventricular hypertrophy. I reviewed results of some selected previous imaging as well. A C-spine MRI completed in November 2020 revealed minimal multilevel degenerative disc disease with mild multilevel central canal stenosis and multilevel neuroforaminal sten osis, most pronounced on the right at C4-5. A brain MRI at that time for acute left-sided weakness was negative for acute or subacute stroke. CT angiography of the head and neck done in October 2020 were unremarkable. MRI of the lumbar spine completed in August 2018 revealed a large sacral Tarlov arachnoid cyst with secondary bony remodeling and mass-effect on the lower thecal sac. There are disc bulges at L3-4 and L4-5 as well as a leftward paracentral disc protrusion on the left at S1. Coding Level of Care Code 57029 Initial Inpt Care Lvl 3 Diagnoses Seizure-like activity R56.9
[2022-02-23] MEDS: INSULIN ASPART PER UNIT SC SCH ×2 (09:23→13:02)
[2022-02-23 09:59] LABS: Amphetamines+Metham, Urine Neg (Neg); Barbiturates, Urine Neg (Neg); Benzodiazepine, Urine Neg (Neg); Cocaine, Urine Neg (Neg); MDMA (Ecstacy), Urine Neg (Neg); Methadone, Urine Neg (Neg); Opiate, Urine Neg (Neg); Phencyclidine, Urine Neg (Neg)
--- NOTE | 2022-02-23 10:00 | Electrocardiogram Report ---
Test Reason : Blood Pressure : / mmHG Vent. Rate : 092 BPM Atrial Rate : 092 BPM P-R Int : 164 ms QRS Dur : 086 ms QT Int : 358 ms P-R-T Axes : 035 -06 031 degrees QTc Int : 442 ms Normal sinus rhythm Poor R wave progression, consider anterior MN vs. lead placement vs. LVH Abnormal ECG Confirmed by Aiden Marin ([id number]) on 02/23/2022 10:00:00 AM Referred By: Aneudy Pérez Confirmed By:Chucky Marin
--- NOTE | 2022-02-23 10:16 | Magnetic Resonance Report ---
MRI OF THE BRAIN WITHOUT AND WITH IV CONTRAST CLINICAL HISTORY: Severe headache, New seizure activity COMPARISON STUDY: Head CT February 22, 2022. MRI of the brain November 12, 2020. TECHNIQUE: Utilizing a 1.5 Paty magnet and dedicated coil, multiplanar, multiecho imaging of the br ain was performed pre and postcontrast administration. IV administration of 10 mL of [address] contra [address] was uneventful. FINDINGS: There are no foci of restricted diffusion to suggest acute infarct. No acute intracranial h emorrhage, midline shift or mass effect is present. Brain volume is normal. Ventricular system is nor mal. Basal cisterns are patent. There are no extra-axial collections. No intracranial mass or patholo gic enhancement is present. There is no significant parenchymal signal abnormality. Appearance of the brain is similar to MRI November 12, 2020. Calvarial signal is normal. No MR evidence for mesial temp oral sclerosis. IMPRESSION: 1. No acute intracranial findings. 2. No intracranial mass or pathologic enhancement. 3. No change since MRI of November 12, 2020. ACT 112: Negative or not required by law. Electronically signed by: Dani Cardona M.D. 02/23/2022 10:15 AM
[2022-02-23 11:44] LABS: Estimated Average Glucose 255 mg/dl; Hemoglobin A1C 10.5 % (4.5-5.6)
[2022-02-23] MEDS ORDERED: levETIRAcetam 500 MG TAB PO SCH (11:45)
[2022-02-23] MEDS ORDERED: oxyCODONE/ACETAMINOPHEN 5mg/325mg TAB PO SCH (11:45)
--- NOTE | 2022-02-23 14:41 | Discharge Summary ---
Date of Service February 23, 2022 Admission HPI Per Admitting Provider Elza Vick is a 51 yo female with PMHx of DM2, HTN, HLD, partial SBO, cervical radicular pain, chronic pain, COPD, and liver cirrhosis who presented to the ER with concern for seizures. Patient notes a hx of anxiety and panic attacks that first started in 1995; she reports overall doing well from an anxiety standpoint until about January of this year (last month) when she had increased emotional family stressors. Patient reports increasing anxiety and panic attacks but she does not describe the panic attacks. She reports managing these "attacks" well, though, and states "I know how to breathe and all that good stuff." Also takes gabapentin which helps to manage anxiety. Has historically used Ativan prn in the past but denies Ativan use over the past month. Main concern though, today, is seizures. Patient states that 10 days ago, she had a fall with subsequent head trauma and MCNULTY. The MCNULTY has been constant for 10 days and has been described as "the worst MCNULTY of her life;" pain is located on entire right side of head and radiates throughout right side of the body (including neck, arm, chest, trunk, and lower extremity). Intensity/characteristic of headache pain has not changed over the past 10 days. On Tuesday (6 days ago), she traveled to [place] to visit her aunt due to aunt's declining health and subsequent passing/. On (4 days ago), while in [place], patient states that she had a 5 minute long seizure witnessed by her dad, sister, [id number], and son. Seizure described as patient's body being rigid, eyes closed, head back, and "moving a little bit." Patient states, "I remember my dad saying come back" and when patient woke up she felt very disoriented for approximately 10-15 minutes after the episode. Patient also had urinary incontinence during the episode; no bowel incontinence. Patient did not want to seek medical evaluation in [place] so she returned home to [place] on Tuesday. Patient reports another seizure upon returning home on Tuesday; unwitnessed but again with urinary incontinence and disorientation for 10-15 min after episode. Another 2 unwitnessed seizures yesterday, again with urinary incontinence and disorientation. Patient has not had any seizure episodes today. Reports no prodrome to seizure. States that the episodes can come on at any time and she has been unable to identify a trigger. Patient admits to poor glycemic control but no recent hypoglycemia. Admits to poor dietary intake and notes that she only eats twice daily, once in the AM and once in the PM. On ROS, patient reports frequent lightheadedness and dizziness with standing and ambulation. + MCNULTY. + mild fever. + chills in evening. + nausea. + right hand numbness. + speech difficulty when gets stressed. + muscle pain with "shocking" pains down neck. + poor sleep (has only been sleeping 2-3 hours per night). No vomiting. Recent changes to medication regimen: added doxycycline due to Lyme test equivocal and further results pending. Trulicity dose increased. Social Hx: former smoker; no alcohol use; no recreational drug use Has received COVID vaccine x2 + booster x1 Code status: FULL CODE Principal Diagnosis Seizure-like activity Discharge Exam Constitutional WD/WN, vitals as above Eyes + anicteric sclerae Neck trachea midline, no thyromegaly Respiratory normal respiratory effort, lungs clear to auscultation Cardiovascular RRR, no murmur, no edema Gastrointestinal (Abdomen) normal bowel sounds, soft, nontender, no hepatosplenomegaly Musculoskeletal Head/Neck/Chest: normocephalic and head atraumatic Skin no rashes, warm and dry Neurologic moves all extremities Psychiatric A+Ox3, euthymic affect Discharge Data Allergies Allergy/AdvReac Type Severity Reaction Status Date / Time acetaminophen AdvReac Severe LIVER Verified 02/22/22 18:53 COMPLICATIONS cephalexin AdvReac Severe Vomiting Verified 02/22/22 18:53 levofloxacin [From Levaquin] AdvReac Intermediate Vomiting Verified 02/22/22 18:53 Consultations 02/22/22 20:15 ED Decision to Admit Stat 02/22/22 22:53 Consult Neurology Routine Ordered Studies 02/22/22 18:36 CT head/brain wo con Stat 02/23/22 00:44 MR brain wo/w con Routine Hospital Course (1) Seizure: Patient is a 51 yo female with PMHx of DM2, HTN, HLD, partial SBO, cervical radicular pain, chronic pain, COPD, and liver cirrhosis admitted for reports of both witnessed and unwitnessed seizures. Seizure-like activity - Head CT 02/22: no acute ICH, evidence of acute territorial infarction, or other acute intracranial disease process - CXR 02/22: no acute processes - MRI brain, no new or acute pathology - EEG ordered, negative for epileptiform activity - Hyperglycemia otherwise CBC and BMP unremarkable - TSH 02/20 wnl at 0.693 - Check orthostatic vital signs - Loaded with 1g Keppra in ED - Seizure precautions and fall precautions in place - Neuro consult. Appreciate their recommendations: -Continue patient on Keppra 500 mg twice daily -Ambulatory EEG in outpatient setting -Do not operate motor vehicle -We will also send patient on 30-day event monitor as we cannot rule out arrhythmia as the cause of loss of consciousness at this time. Lyme testing abnormality - Lyme disease IgM equivocal on testing 02/20 - Patient started on doxycycline at that time, continue doxycycline for now - IgG and IgM banding labs are pending DM2 - Most recent A1c - Continue home Lantus 48 units SQ BID - ISS, return to home regimen at discharge COPD - Continue home inhalers Chronic pain - Continue home regimen including flexeril, voltaren gel, trazodone, lidoderm patch, gabapentin, and oxycodone FENGI: DM2 diet Code status: FULL CODE (2) Hyperglycemia due to type 2 diabetes mellitus: (3) Headache: (4) Borderline results on serologic testing for Lyme disease: (5) Hyperlipidemia: (6) Chronic low back pain with left-sided sciatica: Total Time Total Time Spent Total Time Spent (In Minutes): 30 Discharge Plan Discharge Items Patient Disposition: Home - Self-Care Reason For Visit: SEIZURE, MCNULTY Discharge Diagnosis: Seizure-like activity Activity: Per Instructions section Non-emergency contact: Primary Care Provider and Neurologist Call non-emergency contact if: you have any medication questions and your symptoms worsen Follow-up/Referrals: Christopher Benitez MD [Physician] - 03/01/22 8:45 am Aneudy Pérez MD [Primary Care Provider] - Diet: Carb Consistent or DM2 Addtl Attending Provider Instructions: You were seen in the hospital for concerns regarding seizure-like activity. Your evaluated by our neurologist who is suspecting that these could have been seizures. An EEG was negative at the hospital, however, he did recommend doing outpatient extended EEG which would require you to wear an EEG monitor for a long period of time. The idea is that with wearing it for 72 hours it could have a longer window to observe anything that could suggest seizure-like waveforms in your brain. This will be discussed further at your neurology appointment which will be scheduled for you. Additionally you were started on Keppra which was also recommended by the neurologist to help prevent future episodes if these were seizures. You will take this twice a day until you follow-up with the neurologist in the outpatient setting. This medication will be sent to your pharmacy. We also recommend that you do not operate a motor vehicle at this time. The neurologist also recommended reducing your gabapentin dosage from 1200 mg 3 times daily to 800 mg 3 times daily as this is a very large dose. Please discuss this with your primary care provider. Because this cannot 100% be confirmed to be a seizure until this work-up is complete, we are also getting you set up with a 30-day cardiac event monitor because abnormal heart rhythms can also cause episodes of fainting which can appear similar to seizures. This monitor will be mailed to you with instructions on how to apply it to your self. Please follow-up with your primary care provider within 1 week. It has been a pleasure to be a part of your care and we wish you the best in both your health and recovery. Pending Studies at Discharge: No Stand-Alone Forms: My [facility] Medaxion, Smoking Cessation Medications and DC Order Prescriptions: New levetiracetam [Keppra] 500 mg tablet 500 mg PO BID Qty: 60 RF: 2 Continued cyclobenzaprine 10 mg Tablet 10 mg PO BID PRN (Reason: Muscle Spasm) Qty: 0 RF: 0 gabapentin 600 mg Tablet 1,200 mg PO TID Qty: 0 RF: 0 albuterol sulfate [Ventolin HFA] 90 mcg/actuation Hfa Aerosol Inhaler 2 puff INHALATION Q4H PRN (Reason: Shortness Of Breath Or Wheezing) Qty: 0 RF: 0 montelukast [Singulair] 10 mg tablet 10 mg PO HS RF: 0 Trulicity 1.5 mg/0.5 mL pen injector 4.5 mg SUBCUT WK RF: 0 fluticasone propion-salmeterol 232-14 mcg/actuation aerosol powdr breath activated 2 inh inhalation BID PRN (Reason: Shortness Of Breath) RF: 0 insulin aspart U-100 [Novolog Flexpen U-100 Insulin] 100 unit/mL (3 mL) insulin pen 12 unit SC TID RF: 0 Lantus Solostar U-100 Insulin 100 unit/mL (3 mL) insulin pen 48 unit SUBCUT BID RF: 0 ibuprofen 800 mg tablet 800 mg PO TID PRN (Reason: Pain) RF: 0 promethazine 25 mg tablet 25 mg PO Q6H PRN (Reason: Nausea) RF: 0 aspirin 81 mg Tablet,Delayed Release (Dr/Ec) 81 mg PO QAM RF: 0 ipratropium-albuterol 0.5 mg-3 mg(2.5 mg base)/3 mL solution for nebulization 3 ml INHALATION QID PRN (Reason: Shortness Of Breath) RF: 0 cyclosporine [Restasis] 0.05 % Dropperette 2 drp OPHTHALMIC (EYE) Q12H RF: 0 sennosides-docusate sodium [Senokot-S] 8.6-50 mg tablet 1 tab PO QAM PRN (Reason: Constipation) RF: 0 doxycycline hyclate 100 mg capsule 100 mg PO BID 7 Days Qty: 14 RF: 0 diclofenac sodium 1 % Gel 4 g TOPICAL QID PRN (Reason: Pain) RF: 0 duloxetine 40 mg Capsule,Delayed Release(Dr/Ec) 40 mg PO HS RF: 0 albuterol sulfate 2.5 mg /3 mL (0.083 %) solution for nebulization 2.5 mg inhalation DAILY PRN (Reason: Shortness Of Breath) RF: 0 famotidine 40 mg tablet 40 mg PO BID RF: 0 pantoprazole 20 mg tablet,delayed release (DR/EC) 20 mg PO QAM RF: 0 lidocaine 5 % adhesive patch,medicated 1 patch transdermal DAILY PRN (Reason: Pain) RF: 0 nystatin 100,000 unit/gram powder 1 applic TOPICAL DAILY PRN (Reason: Rash) RF: 0 fluticasone propionate 50 mcg/actuation spray,suspension 1 spray INTRANASAL DAILY PRN (Reason: Congestion) RF: 0 trazodone 100 mg tablet 100 mg PO HS RF: 0 polyethylene glycol 3350 [Miralax] 17 gram/dose Powder 34 g PO BID RF: 0 Discharge Orders: Discharge Order (Routine); Ordered 02/23/22 Ordered By: Marvin Wan Admission Data Admit Date/Time: 02/22/22 21:12 Attending Provider: Aneudy Pérez Admit Provider: Shavonne Montenegro Primary Care Provider: Aneudy Pérez Other Providers: Shavonne Montenegro ; Brenton Middleton Supervising Physician Co-Signing Physician Notes Attending attestation Pt seen and examined in concert with Dr. Wan. In agreement with the documented findings as noted in the resident documentation with any exceptions or additions as noted here. Patient reports no recurrence of LOC symptoms. Still having ongoing headache and lightheadedness which has gradually improved since admission with good control on home pain medications. Significant improvement in anxiety. On examination, S1/S2 nl RRR no MCG. CTAB. Abd NT/ND BS+ve. CNII-XII grossly intact. Str 5/5 b/l UE and LE Seizure like activity - neurology consult - continue keppra BID. Follow up outpatient EEG. MRI reviewed. Echocardiogram on day of discharge. Event monitor on discharge. Lyme disease abnormal testing - pending IgG/M - d/c medication if negative. DMII, uncontrolled - return to home insulin regimen, to adjust in outpatient with stable diet Else see resident documentation as noted. Total attending time spent with this patient's care on the day of discharge: 40 minutes.
--- NOTE | 2022-02-23 15:33 | Electroencephalogram ---
EEG Procedure Note Date of Service February 23, 2022 Start / End Times Start Time: 11:22 AM End Time: 11:42 AM Referring Physician Shavonne Montenegro DO History Seizures Home Medication List Medication Instructions Recorded Confirmed Type cyclobenzaprine 10 mg tablet 10 mg PO BID PRN #0 11/18/17 02/22/22 History gabapentin 600 mg tablet 1,200 mg PO TID #0 tab 11/18/17 02/22/22 History albuterol sulfate 90 mcg/actuation 2 puff INHALATION Q4H PRN #0 02/10/18 02/22/22 History aerosol inhaler (Ventolin HFA) ibuprofen 800 mg tablet 800 mg PO TID PRN 10/24/19 02/22/22 History promethazine 25 mg tablet 25 mg PO Q6H PRN 10/24/19 02/22/22 History oxycodone-acetaminophen 10 mg-325 1 tab PO Q6H PRN #20 tab 02/11/20 Rx mg tablet (Percocet) dulaglutide 1.5 mg/0.5 mL 4.5 mg SUBCUT WK 05/19/20 02/22/22 History subcutaneous pen injector (Trulicity) fluticasone 232 mcg-salmeterol 14 2 inh INHALATION BID PRN 08/21/20 02/22/22 History mcg/actuation breath activated powdr montelukast 10 mg tablet 10 mg PO HS 09/01/20 02/22/22 History (Singulair) aspirin 81 mg tablet,delayed 81 mg PO QAM 10/28/20 02/22/22 History release ipratropium 0.5 mg-albuterol 3 mg 3 ml INHALATION QID PRN 02/12/21 02/22/22 History (2.5 mg base)/3 mL nebulization soln insulin aspart U-100 100 unit/mL 12 unit SC TID ml 02/23/21 02/22/22 History (3 mL) subcutaneous pen (Novolog Flexpen U-100 Insulin aspart) insulin glargine 100 unit/mL (3 48 unit SUBCUT BID ml 02/23/21 02/22/22 History mL) subcutaneous pen (Lantus Solostar U-100 Insulin) cyclosporine 0.05 % eye drops in a 2 drp OPHTHALMIC (EYE) Q12H 04/17/21 02/22/22 History dropperette (Restasis) sennosides 8.6 mg-docusate sodium 1 tab PO QAM PRN 06/23/21 02/22/22 History 50 mg tablet (Senokot-S) diclofenac sodium 1 % topical gel 4 g TOPICAL QID PRN 07/20/21 02/22/22 History duloxetine 40 mg capsule,delayed 40 mg PO HS 11/28/21 02/22/22 History release albuterol sulfate 2.5 mg INHALATION DAILY PRN 01/19/22 02/22/22 History famotidine 40 mg tablet 40 mg PO BID 01/19/22 02/22/22 History fluticasone propionate 50 1 spray INTRANASAL DAILY PRN 01/19/22 02/22/22 History mcg/actuation nasal spray,suspension lidocaine 5 % topical patch 1 patch TRANSDERMAL DAILY PRN 01/19/22 02/22/22 History nystatin 100,000 unit/gram topical 1 applic TOPICAL DAILY PRN 01/19/22 02/22/22 History powder pantoprazole 20 mg tablet,delayed 20 mg PO QAM 01/19/22 02/22/22 History release polyethylene glycol 3350 17 34 g PO BID 01/29/22 02/22/22 History gram/dose oral powder (Miralax) trazodone 100 mg tablet 100 mg PO HS 01/29/22 02/22/22 History doxycycline hyclate 100 mg capsule 100 mg PO BID 7 Days #14 cap 02/21/22 02/22/22 Rx levetiracetam 500 mg tablet 500 mg PO BID #60 tab 02/23/22 Rx (Keppra) Inpatient Medication List Aspirin (Aspirin 81 Mg Ectab) 81 mg PO QAM [facility] Stop: 03/25/22 08:59 Last Admin: 02/23/22 08:48 Dose: 81 mg Documented by: [id number] Cyclobenzaprine HCl (Cyclobenzaprine Hcl 10 Mg Tab) 10 mg PO BID PRN PRN Reason: Muscle Spasm Stop: 03/24/22 22:52 Last Admin: 02/23/22 00:27 Dose: 10 mg Documented by: [id number] Doxycycline Hyclate (Doxycycline Hyclate 100 Mg Cap) 100 mg PO BID [facility] Stop: 02/27/22 23:59 Last Admin: 02/23/22 08:47 Dose: 100 mg Documented by: [id number] Admin: 02/23/22 00:27 Dose: 100 mg Documented by: [id number] Duloxetine HCl (Duloxetine Hcl 20 Mg Cap) 40 mg PO HS YEN Stop: 03/24/22 22:52 Last Admin: 02/23/22 00:27 Dose: 40 mg Documented by: [id number] Famotidine (Famotidine 40 Mg Tablet) 40 mg PO BID YEN Stop: 03/24/22 22:52 Last Admin: 02/23/22 08:48 Dose: 40 mg Documented by: [id number] Admin: 02/23/22 00:08 Dose: 40 mg Documented by: [id number] Gabapentin (Gabapentin 600 Mg Tab) 1,200 mg PO TID YEN Stop: 03/24/22 22:52 Last Admin: 02/23/22 14:00 Dose: 1,200 mg Documented by: [id number] Admin: 02/23/22 08:47 Dose: 1,200 mg Documented by: [id number] Admin: 02/23/22 00:26 Dose: 1,200 mg Documented by: [id number] Ibuprofen (Ibuprofen 800 Mg Tab) 800 mg PO TID PRN PRN Reason: Pain Stop: 03/24/22 22:52 Last Admin: 02/23/22 00:07 Dose: 800 mg Documented by: [id number] Insulin Aspart (Insulin Aspart Per Unit) 0 units SC ACHS YEN Stop: 03/25/22 07:29 Last Admin: 02/23/22 13:02 Dose: 9 units Documented by: [id number] Cosigned by: [id number] Admin: 02/23/22 09:23 Dose: 5 units Documented by: [id number] Cosigned by: [id number] Insulin Glargine (Insulin Glargine 100 Unit/Ml Vial) 48 units SQ BID YEN Stop: 03/24/22 22:52 Last Admin: 02/23/22 08:51 Dose: 48 units Documented by: [id number] Cosigned by: [id number] Admin: 02/23/22 00:09 Dose: 48 units Documented by: [id number] Cosigned by: [id number] Levetiracetam (Levetiracetam 500 Mg Tab) 500 mg PO BID [facility] Stop: 03/25/22 11:44 Last Admin: 02/23/22 12:31 Dose: 500 mg Documented by: [id number] Miscellaneous (Remove Lidoderm Patch) 1 ea N/A DAILY@2100 [facility] Stop: 03/24/22 22:52 Last Admin: 02/23/22 00:08 Dose: 1 ea Documented by: [id number] Montelukast Sodium (Montelukast Sodium 10 Mg Tablet) 10 mg PO HS [facility] Stop: 03/24/22 22:52 Last Admin: 02/23/22 00:07 Dose: 10 mg Documented by: [id number] Oxycodone/Acetaminophen (Oxycodone/Acetaminophen 5mg/325mg Tab) 1 tab PO BID [facility] Stop: 03/09/22 11:44 Last Admin: 02/23/22 11:54 Dose: 1 tab Documented by: [id number] Pantoprazole Sodium (Pantoprazole 40 Mg Tab) 40 mg PO QAM [facility] Stop: 03/25/22 08:59 Last Admin: 02/23/22 08:49 Dose: 40 mg Documented by: [id number] Polyethylene Glycol (Polyethylene (Miralax) 17 Gm Pack) 34 gm PO BID [facility] Stop: 03/24/22 22:52 Last Admin: 02/23/22 08:44 Dose: Not Given Documented by: [id number] Admin: 02/23/22 00:08 Dose: Not Given Documented by: [id number] Trazodone HCl (Trazodone Hcl 100 Mg Tab) 100 mg PO [facility] Stop: 03/24/22 22:52 Last Admin: 02/23/22 00:08 Dose: 100 mg Documented by: [id number] Discontinued Medications Gadobutrol (Gadobutrol 65ml Vial) 10 ml IV ONCE ONE Stop: 02/23/22 01:19 Last Admin: 02/23/22 01:19 Dose: 10 ml Documented by: [id number] Sodium Chloride (Nss) 500 mls @ 999 mls/hr IV .Q31M YEN Stop: 02/22/22 19:15 Last Infusion: 02/22/22 19:23 Dose: 0 mls/hr Documented by: [id number] Admin: 02/22/22 18:52 Dose: 999 mls/hr Documented by: [id number] Levetiracetam 1,000 mg/ Sodium (Chloride) 110 mls @ 440 mls/hr IV NOW STA Stop: 02/22/22 18:50 Last Infusion: 02/22/22 19:07 Dose: 0 mls/hr Documented by: [id number] Admin: 02/22/22 18:52 Dose: 440 mls/hr Documented by: [id number] Lorazepam (Lorazepam 2 Mg/1 Ml Vial) 1 mg IV .MOLDER HAND TO MRI PRN PRN Reason: anxiety Last Admin: 02/23/22 00:41 Dose: 1 mg Documented by: [id number] Oxycodone HCl (Oxycodone Hcl Ir 5 Mg Tab (Immediate Release)) 5 mg PO NOW ONE Stop: 02/23/22 01:12 Last Admin: 02/23/22 01:42 Dose: 5 mg Documented by: [id number] Description This is a 21 electrode EEG with a single channel dedicated to limited EKG. The electrodes were placed in accordance with the International 10-20 system. The predominant background rhythm consists of moderate amplitude 5 to 7 Hz theta slowing. Photic stimulation is unremarkable. Hyperventilation is not performed. There is occasional movement artifact. A symmetric frontal beta rhythm is observed as well. At times, a posterior dominant 10 Hz alpha rhythm can be seen. There is no focal slowing. There are no epileptiform abnormalities. Interpretation Abnormal awake/drowsy EEG revealing evidence of a mild to moderate nonspecific encephalopathy. No epileptiform abnormalities observed. [facility] EEG Procedure Codes Indication for Procedure (1) Seizure-like activity: Neurology Neurology: [id number] EEG include record awake & drowsy
--- NOTE | 2022-02-23 19:24 | XCELERA ---
[id number]
== END 2022-02-23 17:28 | disposition home or self-care (01) ==
LOC: 3N 18:06 → ED 18:06 → SUATTDRO 21:12 → 3N 22:38

== ENCOUNTER 2022-03-06 15:20 | Observation (INO) ==
[2022-03-06] MEDS ORDERED: SODIUM CHLORIDE 0.9% 1000ML 2,000 ML IV ONE (15:52)
--- NOTE | 2022-03-06 16:00 | Emergency Department Note ---
Impression & Plan Recurrent seizures, Acute hyperglycemia ED Provider Note NAME: MARCIO FERNANDEZ AGE: 51 SEX: F : 1970 ARRIVES VIA: Walk-In INFORMANT: Patient ED PROVIDER(S): Mike Hurtado DO CHIEF COMPLAINT: seizure HPI: Patient is a 51-year-old female who presents the ER with a past medical history of syncope, hyperlipidemia, SBO and morbid obesity presents to the ER fo r for seizures. She has had 4 seizures in the past 24 hours. Patient notes that she generally gets very worked up gets lightheaded and the next thing she knows she is waking up on the floor. notes that she is loses control of her bowel and/or bladder and she has diffuse body shaking. She is confused when she wakes up and gradually gets back to baseline. She denies any headache or change in vision. No chest pain or shortness of breath. No nausea, vomiting, or diarrhea. No dysuria, urgency, or frequency. No other exacerbating or remitting factors. ROS: See above HPI for pertinent positives & negatives. A total of 10 systems reviewed and were otherwise negative. PAST MEDICAL HISTORY:See Below PAST SURGICAL HISTORY:See Below FAMILY HISTORY:See Below SOCIAL HISTORY:See Below HOME MEDICATIONS:See Below ALLERGIES:See Below VITALS:See Below PHYSICAL EXAMINATION: GENERAL: Sitting up in bed, alert, well appearing, well nourished, no distress, non-toxic EYE EXAM: normal conjunctiva. PERRL and EOM's grossly intact. OROPHARYNX: mucous membranes are moist NECK: supple, no nuchal rigidity, no adenopathy, non-tender LUNGS: Clear to auscultation. Normal chest wall mechanics HEART: no murmurs, S1 normal and S2 normal ABDOMEN: abdomen soft, non-tender, normo-active bowel sounds, no masses, no rebound or guarding. BACK: Back is symmetrical on inspection and there is no deformity, no midline tenderness, no CVA tenderness. UPPER EXTREMITIES: upper extremities are grossly normal. LOWER EXTREMITIES: Minimal tenderness on palpation of left humerus. Full range of motion bilateral shoulders elbows wrist and grasp. NEURO EXAM: Normal sensorium, cranial nerves II-XII intact, normal speech, no weakness of arms, no weakness of legs. No drift. Finger to nose intact. Gross sensation intact. MEDICAL DECISION MAKING: Patient is a 51-year-old female who presents the ER for the boasting complaint. IV was established blood work was obtained. Patient completely neurologically intact. Labs show no significant leukocytosis or anemia. BMP with mild hy ponatremia 133. Glucose was significantly elevated at 400. LFTs bilirubin and lipase was unremarkable. She was given IV fluids as well as IV insulin. She was monitored closely. CT head was negative. Chest x-ray and shoulder x-ray was unremarkable. Patient is complete neurologically intact. Did review neurology's note and I agree that this is very atypical and is likely multifactorial. They appear not to be certain whether this is true seizures or not. With for the past 24 hours discussed with hospitalist for further evaluation. Triage Nursing notes reviewed. Limited review of prior medical records performed Vital Signs: reviewed and remarkable for no significant abnormalities Differential diagnosis: Differential diagnosis includes etiologies such as infection, hypoglycemia, electrolyte abnormalities, cardiac sources, intracerebral event, trauma, toxicologic, neurologic, as well as others were entertained. ER treatment provided: See below Diagnostics interpreted by me: ECG: Sinus rhythm rate of 94 Left axis Poor baseline QTC 455 Cardiac Monitoring: An order was placed for continuous cardiac monitoring. The monitor shows a rate of 90 with sinus rhythm. Laboratory studies: As stated above and show below. Imaging studies: X-ray left shoulder was negative CT head was negative Chest x-ray was unremarkable Consultation(s): Discussed with Terra from [facility]ist service Procedures: none Critical Care: None Past Med/Surg History Medical History Abdominal pain Acute hyperglycemia Anxiety Brain cyst Chest pain Chronic low back pain with left-sided sciatica Chronic obstructive pulmonary disease Dental abscess Depression Elevated lactic acid level Emphysema of lung Encounter for pre-operative examination Hx of blood clots Hyperglycemia Hyperglycemia Hyperglycemia due to type 2 diabetes mellitus Hyperlipidemia Hypertension Hypokalemia Hypomagnesemia Hyponatremia Insulin dependent diabetes mellitus Lightheadedness Medication reaction Obesity Periapical abscess with facial involvement Pulmonary embolism Reports was anticoagulation x 60 days, not on chronic anticoagulation Syncope Thrombocytopenia Tinea corporis Tinea cruris Uncontrolled type 2 diabetes mellitus Surgical History History of laparoscopic cholecystectomy Hx of oral surgery (02/15/20) Acute right submandibular, submental space infection with floor of mouth infection caused by infected lower teeth. Dr. Rios 02/15/20 S/P dilation and curettage S/P laparoscopic hernia repair S/P laparoscopic procedure ovarian cyst surgery Family History Mother , 73 Heart disease Cancer Father Skin cancer Brother No problems noted. Sister No problems noted. Grandmother (Maternal) , 48 Heart disease T2DM (type 2 diabetes mellitus) Grandmother (Paternal) , 83 Heart disease Kidney disease Uncle T2DM (type 2 diabetes mellitus) Other Diabetes Obesity Denies family history of Ovarian cancer Breast cancer Colorectal cancer Uterine cancer Social History Smoking Status: Former smoker Tobacco Type: Cigarettes Cigarettes Per Day: 5; Second Hand Exposure: Yes; Hx Alcohol Use: No Hx Substance Use: No Preferred Language: Belarusian Communication Ability: Effective Visual Impairment: No Limitations Hearing Ability: Normal Heritage Consultant Required: No Beliefs That Will Affect Care: None marital status: Current Living Situation: Alone Current Living Situation Comment: Lives with son (14 yo) current occupational status: unemployed How many Children do You have: 1 Feels Safe at Home: Yes Assistive Devices: None Allergies Allergies Allergy/AdvReac Type Severity Reaction Status Date / Time acetaminophen AdvReac Severe LIVER Verified 03/06/22 17:15 COMPLICATIONS cephalexin AdvReac Severe Vomiting Verified 03/06/22 17:15 levofloxacin [From Levaquin] AdvReac Intermediate Vomiting Verified 03/06/22 17 :15 Home Meds Home Medications Medication Instructions Recorded Confirmed cyclobenzaprine 10 mg tablet 10 mg PO BID PRN #0 11/18/17 03/06/22 gabapentin 600 mg tablet 1,200 mg PO TID #0 tab 11/18/17 03/06/22 albuterol sulfate 90 mcg/actuation 2 puff INHALATION Q4H PRN #0 02/10/18 03/06/22 aerosol inhaler (Ventolin HFA) ibuprofen 800 mg tablet 800 mg PO TID PRN 10/24/19 03/06/22 promethazine 25 mg tablet 25 mg PO Q6H PRN 10/24/19 03/06/22 dulaglutide 1.5 mg/0.5 mL 4.5 mg SUBCUT WK 05/19/20 03/06/22 subcutaneous pen injector (Trulicity) fluticasone 232 mcg-salmeterol 14 2 inh INHALATION BID PRN 08/21/20 03/06/22 mcg/actuation breath activated powdr montelukast 10 mg tablet 10 mg PO HS 09/01/20 03/06/22 (Singulair) aspirin 81 mg tablet,delayed 81 mg PO QAM 10/28/20 03/06/22 release ipratropium 0.5 mg-albuterol 3 mg 3 ml INHALATION QID PRN 02/12/21 03/06/22 (2.5 mg base)/3 mL nebulization soln insulin aspart U-100 100 unit/mL 12 unit SC TID ml 02/23/21 03/06/22 (3 mL) subcutaneous pen (Novolog Flexpen U-100 Insulin aspart) insulin glargine 100 unit/mL (3 48 unit SUBCUT BID ml 02/23/21 03/06/22 mL) subcutaneous pen (Lantus Solostar U-100 Insulin) cyclosporine 0.05 % eye drops in a 2 drp OPHTHALMIC (EYE) Q12H 04/17/21 03/06/22 dropperette (Restasis) sennosides 8.6 mg-docusate sodium 1 tab PO QAM PRN 06/23/21 03/06/22 50 mg tablet (Senokot-S) diclofenac sodium 1 % topical gel 4 g TOPICAL QID PRN 07/20/21 03/06/22 duloxetine 40 mg capsule,delayed 40 mg PO HS 11/28/21 03/06/22 release albuterol sulfate 2.5 mg INHALATION DAILY PRN 01/19/22 03/06/22 famotidine 40 mg tablet 40 mg PO BID 01/19/22 03/06/22 fluticasone propionate 50 1 spray INTRANASAL DAILY PRN 01/19/22 03/06/22 mcg/actuation nasal spray,suspension lidocaine 5 % topical patch 1 patch TRANSDERMAL DAILY PRN 01/19/22 03/06/22 nystatin 100,000 unit/gram topical 1 applic TOPICAL DAILY PRN 01/19/22 03/06/22 powder pantoprazole 20 mg tablet,delayed 20 mg PO QAM 01/19/22 03/06/22 release polyethylene glycol 3350 17 34 g PO BID 01/29/22 03/06/22 gram/dose oral powder (Miralax) trazodone 100 mg tablet 100 mg PO HS 01/29/22 03/06/22 oxycodone 5 mg PO BID 03/06/22 03/06/22 Previous Rx's Medication Instructions Recorded oxycodone-acetaminophen 10 mg-325 1 tab PO Q6H PRN #20 tab 02/11/20 mg tablet (Percocet) levetiracetam 500 mg tablet 500 mg PO BID #60 tab 02/23/22 (Keppra) Results & Data (ED) Vital Signs Vital Signs - 24 hr 03/06/22 15:21 03/06/22 15:40 03/06/22 18:10 Temperature 36.7 C Temperature Source Temporal Artery Scan Pulse Rate 115 H Pulse Rate [Right Finger] 95 H Respiratory Rate 18 18 Respiratory Effort / Characteristics Non-Labored Respiratory Depth Normal Normal Respiratory Pattern Regular Blood Pressure 141/78 H Blood Pressure [Right Arm] 134/70 151/85 H Blood Pressure Mean 99 Blood Pressure Mean [Right Arm] 91 107 Blood Pressure Position [Right Arm] Sitting Pulse Oximetry 96 98 Oxygen Delivery Method Room Air Room Air Sepsis Recent Fever Within 48 Hours No Sepsis New/Unexplained Change in Mental Status No Sepsis Action Taken by Nursing No Action Required Laboratory Data Result diagrams: 03/06/22 15:37 03/06/22 15:37 Lab Results 03/06/22 03/06/22 03/06/22 Range/Units 15:35 15:37 15:37 WBC 7.66 (4.8-10.8) K/uL RBC 4.31 (4.2-5.4) M/uL Hgb 14.1 (12.0-16.0) g/dL POC Hgb (12.0-16.0) g/dl Hct 40.0 (37-47) % POC Hct (37-47) % MCV 92.8 (80-100) fL MCH 32.7 (25-34) pg MCHC 35.3 (32-36) g/dL RDW Std Deviation 45.0 (36.4-46.3) fL RDW Coeff of Kelli 13.2 (11.5-14.5) % Plt Count 154 (130-400) K/uL MPV 11.3 H (7.4-10.4) fL Immature Gran % (Auto) 0.1 % Neut % (Auto) 69.3 % Lymph % (Auto) 24.2 % [place] % (Auto) 4.3 % Eos % (Auto) 1.8 % Baso % (Auto) 0.3 % Neut # (Auto) 5.31 (1.4-6.5) K/uL Lymph # (Auto) 1.85 (1.2-3.4) K/uL [place] # (Auto) 0.33 (0.11-0.59) K/uL Eos # (Auto) 0.14 (0-0.5) K/uL Baso # (Auto) 0.02 (0-0.2) K/uL Immature Gran # (Auto) 0.01 (0.00-0.02) K/uL POC Sodium (135-144) mmol/L Sodium 133 L (136-145) mmol/L POC Potassium (3.3-5.0) mmol/L Potassium 3.9 (3.5-5.1) mmol/L POC Chloride (101-112) mmol/L Chloride 105 (98-107) mmol/L Carbon Dioxide 19 L (21-32) mmol/L POC Total CO2 (24-31) mmol/L Anion Gap 9 (3-11) POC Anion Gap (16-25) mmol/L POC BUN (7-18) mg/dl BUN 5 L (6-23) mg/dl Creatinine 0.67 (0.6-1.2) mg/dl POC Creatinine (0.6-1.3) mg/dl Est Cr Clr Drug Dosing 117.9 ml/min Est GFR ( Amer) 116.3 ml/min Est GFR (Non-Af Amer) 100.4 ml/min BUN/Creatinine Ratio 7.5 L (10-20) Glucose 399 H* (70-99(Fasting)) mg/dl POC Glucose 408 H* (70-99) mg/dl POC Glucose (other) (70-99) mg/dl Calcium 9.2 (8.5-10.1) mg/dl POC Ioniz Calcium Joselyn (1.12-1.32) mmol/l Total Bilirubin 0.5 (0.2-1.0) mg/dl AST 23 (13-39) U/L ALT 24 (7-52) U/L Alkaline Phosphatase 113 H (34-104) U/L Troponin I High Sens 3.8 (0-14) pg/ml Total Protein 7.2 (6.0-8.3) gm/dl Albumin 3.9 (3.4-5.0) gm/dl Globulin 3.3 (2.5-4.0) gm/dl Albumin/Globulin Ratio 1.2 (0.9-2) Lipase 8 L (11-82) U/L 03/06/22 03/06/22 Range/Units 16:03 16:57 WBC (4.8-10.8) K/uL RBC (4.2-5.4) M/uL Hgb (12.0-16.0) g/dL POC Hgb 13.9 (12.0-16.0) g/dl Hct (37-47) % POC Hct 41 (37-47) % MCV (80-100) fL MCH (25-34) pg MCHC (32-36) g/dL RDW Std Deviation (36.4-46.3) fL RDW Coeff of Kelli (11.5-14.5) % Plt Count (130-400) K/uL MPV (7.4-10.4) fL Immature Gran % (Auto) % Neut % (Auto) % Lymph % (Auto) % [place] % (Auto) % Eos % (Auto) % Baso % (Auto) % Neut # (Auto) (1.4-6.5) K/uL Lymph # (Auto) (1.2-3.4) K/uL [place] # (Auto) (0.11-0.59) K/uL Eos # (Auto) (0-0.5) K/uL Baso # (Auto) (0-0.2) K/uL Immature Gran # (Auto) (0.00-0.02) K/uL POC Sodium 138 (135-144) mmol/L Sodium (136-145) mmol/L POC Potassium 3.8 (3.3-5.0) mmol/L Potassium (3.5-5.1) mmol/L POC Chloride 105 (101-112) mmol/L Chloride (98-107) mmol/L Carbon Dioxide (21-32) mmol/L POC Total CO2 20 L (24-31) mmol/L Anion Gap (3-11) POC Anion Gap 17.0 (16-25) mmol/L POC BUN < 3 L (7-18) mg/dl BUN (6-23) mg/dl Creatinine (0.6-1.2) mg/dl POC Creatinine 0.4 L (0.6-1.3) mg/dl Est Cr Clr Drug Dosing ml/min Est GFR ( Amer) ml/min Est GFR (Non-Af Amer) ml/min BUN/Creatinine Ratio (10-20) Glucose (70-99(Fasting)) mg/dl POC Glucose 357 H* (70-99) mg/dl POC Glucose (other) 391 H* (70-99) mg/dl Calcium (8.5-10.1) mg/dl POC Ioniz Calcium Joselyn 1.18 (1.12-1.32) mmol/l Total Bilirubin (0.2-1.0) mg/dl AST (13-39) U/L ALT (7-52) U/L Alkaline Phosphatase (34-104) U/L Troponin I High Sens (0-14) pg/ml Total Protein (6.0-8.3) gm/dl Albumin (3.4-5.0) gm/dl Globulin (2.5-4.0) gm/dl Albumin/Globulin Ratio (0.9-2) Lipase (11-82) U/L Administered Medications Discontinued Medications Sodium Chloride (Nss 1000ml) 2,000 mls @ 999 mls/hr IV .Q2H1M ONE Stop: 03/06/22 17:52 Last Infusion: 03/06/22 17:54 Dose: 0 mls/hr Documented by: [id number] Admin: 03/06/22 15:58 Dose: 999 mls/hr Documented by: [id number] Ibuprofen (Ibuprofen 200 Mg Tab) 400 mg PO NOW STA Stop: 03/06/22 16:21 Last Admin: 03/06/22 16:25 Dose: 400 mg Documented by: [id number] Insulin Human Regular (Novolin-R Insulin Per Unit Charge) 8 units IV NOW STA Stop: 03/06/22 16:23 Last Admin: 03/06/22 16:29 Dose: 8 units Documented by: [id number] Cosigned by: [id number] Imaging Data Radiologist's Impression: Chest X-Ray 03/06/22 15:52 XR chest 1V portable HISTORY: Atypical Chest Pain COMPARISON: Chest 02/22/2022. FINDINGS: The cardiac silhouette remains mildly enlarged. The lungs are clear. No pleural effusions. No pneumothorax. No evidence for pulmonary edema. IMPRESSION: No significant change compared to the prior study. No acute process. ACT 112: Negative or not required by law. Electronically signed by: Luis F Mixon M.D. 03/06/2022 4:[address] 03/06/22 15:[address] DOSE: 537.48 mGy.cm HISTORY: seizure TECHNIQUE: Multiaxial CT images of the head were performed without the use of intravenous contrast. Automated exposure control was utilized for this study. A dose lowering technique was utilized adhering to the principles of ALARA. Comparison: Brain MRI 02/23/2022. Findings: The paranasal sinuses and mastoid air cells are clear. The calvarium and skull base are intact. The ventricles and sulci are within normal limits. There is no mass, hematoma, midline shift, or acute infarct. Impression: No acute intracranial abnormality. ACT 112: Negative or not required by law. Electronically signed by: Luis F Mixon M.D. 03/06/2022 4:10 PM Shoulder X-Ray 03/06/22 16:20 LEFT SHOULDER 3 VIEWS HISTORY: Left shoulder pain. COMPARISON: None. FINDINGS: There is no fracture or dislocation. Soft tissues are unremarkable. The left clavicle is intact. There is moderate AC joint arthrosis. IMPRESSION: No fracture or dislocation within the left shoulder. ACT 112: Negative or not required by law. Electronically signed by: Luis F Mixon M.D. 03/06/2022 5:03 PM Discharge Plan Visit Data Chief Complaint: Seizure Stated Complaint: ANXIETY ATTACK THEN SEIZURE, SHOULDER PAIN ED Provider: Mike Hurtado Discharge Problem: Recurrent seizures, Acute hyperglycemia Forms Stand Alone Forms: [facility] Prescriptions Prescriptions: No Action cyclobenzaprine 10 mg Tablet 10 mg PO BID PRN (Reason: Muscle Spasm) Qty: 0 RF: 0 gabapentin 600 mg Tablet 1,200 mg PO TID Qty: 0 RF: 0 albuterol sulfate [Ventolin HFA] 90 mcg/actuation Hfa Aerosol Inhaler 2 puff INHALATION Q4H PRN (Reason: Shortness Of Breath Or Wheezing) Qty: 0 RF: 0 montelukast [Singulair] 10 mg tablet 10 mg PO HS RF: 0 Trulicity 1.5 mg/0.5 mL pen injector 4.5 mg SUBCUT WK RF: 0 fluticasone propion-salmeterol 232-14 mcg/actuation aerosol powdr breath activated 2 inh inhalation BID PRN (Reason: Shortness Of Breath) RF: 0 insulin aspart U-100 [Novolog Flexpen U-100 Insulin] 100 unit/mL (3 mL) i nsulin pen 12 unit SC TID RF: 0 Lantus Solostar U-100 Insulin 100 unit/mL (3 mL) insulin pen 48 unit SUBCUT BID RF: 0 ibuprofen 800 mg tablet 800 mg PO TID PRN (Reason: Pain) RF: 0 promethazine 25 mg tablet 25 mg PO Q6H PRN (Reason: Nausea) RF: 0 aspirin 81 mg Tablet,Delayed Release (Dr/Ec) 81 mg PO QAM RF: 0 ipratropium-albuterol 0.5 mg-3 mg(2.5 mg base)/3 mL solution for nebulization 3 ml INHALATION QID PRN (Reason: Shortness Of Breath) RF: 0 cyclosporine [Restasis] 0.05 % Dropperette 2 drp OPHTHALMIC (EYE) Q12H RF: 0 sennosides-docusate sodium [Senokot-S] 8.6-50 mg tablet 1 tab PO QAM PRN (Reason: Constipation) RF: 0 oxycodone 5 MG 5 mg PO BID RF: 0 diclofenac sodium 1 % Gel 4 g TOPICAL QID PRN (Reason: Pain) RF: 0 duloxetine 40 mg Capsule,Delayed Release(Dr/Ec) 40 mg PO HS RF: 0 albuterol sulfate 2.5 mg /3 mL (0.083 %) solution for nebulization 2.5 mg inhalation DAILY PRN (Reason: Shortness Of Breath) RF: 0 famotidine 40 mg tablet 40 mg PO BID RF: 0 pantoprazole 20 mg tablet,delayed release (DR/EC) 20 mg PO QAM RF: 0 lidocaine 5 % adhesive patch,medicated 1 patch transdermal DAILY PRN (Reason: Pain) RF: 0 nystatin 100,000 unit/gram powder 1 applic TOPICAL DAILY PRN (Reason: Rash) RF: 0 fluticasone propionate 50 mcg/actuation spray,suspension 1 spray INTRANASAL DAILY PRN (Reason: Congestion) RF: 0 trazodone 100 mg tablet 100 mg PO HS RF: 0 polyethylene glycol 3350 [Miralax] 17 gram/dose Powder 34 g PO BID RF: 0 levetiracetam [Keppra] 500 mg tablet 500 mg PO BID Qty: 60 RF: 2 Referrals Referrals: Aneudy Pérez MD [Primary Care Provider] -
[2022-03-06 16:03] LABS: Basophils # (auto) 0.02 K/uL (0-0.2); Basophils % (auto) 0.3 %; Eosinophils # (auto) 0.14 K/uL (0-0.5); Eosinophils % (auto) 1.8 %; Hemoglobin 14.1 g/dL (12.0-16.0); Immature Granulocytes # (auto) 0.01 K/uL (0.00-0.02); Immature Granulocytes % (auto) 0.1 %; Lymphocytes # (auto) 1.85 K/uL (1.2-3.4); Lymphocytes % (auto) 24.2 %; Mean Corpuscular Hemoglobin 32.7 pg (25-34); Mean Corpuscular Hgb Conc 35.3 g/dL (32-36); Mean Corpuscular Volume 92.8 fL (80-100); Mean Platelet Volume 11.3 fL (7.4-10.4); Monocytes # (auto) 0.33 K/uL (0.11-0.59); Monocytes % (auto) 4.3 %; Neutrophils # (auto) 5.31 K/uL (1.4-6.5); Neutrophils % (auto) 69.3 %; Platelet Count 154 K/uL (130-400); RDW Coefficient of Variation 13.2 % (11.5-14.5); Red Blood Count 4.31 M/uL (4.2-5.4); White Blood Count 7.66 K/uL (4.8-10.8)
--- NOTE | 2022-03-06 16:13 | CT Scan Report ---
HEAD CT NONCONTRAST CT DOSE: 537.48 mGy.cm HISTORY: seizure TECHNIQUE: Multiaxial CT images of the head were performed without the use of intravenous contrast. A utomated exposure control was utilized for this study. A dose lowering technique was utilized adheri ng to the principles of ALARA. Comparison: Brain MRI 02/23/2022. Findings: The paranasal sinuses and mastoid air cells are clear. The calvarium and skull base are int act. The ventricles and sulci are within normal limits. There is no mass, hematoma, midline shift, or acute infarct. Impression: No acute intracranial abnormality. ACT 112: Negative or not required by law. Electronically signed by: Luis F Mixon M.D. 03/06/2022 4:10 PM
[2022-03-06 16:16] LABS: iSTAT Blood Urea Nitrogen < 3 mg/dl (7-18); iSTAT Carbon Dioxide 20 mmol/L (24-31); iSTAT Chloride 105 mmol/L (101-112); iSTAT Creatinine 0.4 mg/dl (0.6-1.3); iSTAT Glucose 391 mg/dl (70-99); iSTAT Hematocrit 41 % (37-47); iSTAT Hemoglobin 13.9 g/dl (12.0-16.0); iSTAT Ionized Calcium 1.18 mmol/l (1.12-1.32); iSTAT Potassium 3.8 mmol/L (3.3-5.0); iSTAT Sodium 138 mmol/L (135-144)
[2022-03-06] MEDS ORDERED: IBUPROFEN 200 MG TAB PO STA (16:20)
[2022-03-06 16:21] LABS: Albumin Globulin Ratio 1.2 (0.9-2); Albumin Level 3.9 gm/dl (3.4-5.0); BUN Creatinine Ratio 7.5 (10-20); Bilirubin,Total 0.5 mg/dl (0.2-1.0); Calcium 9.2 mg/dl (8.5-10.1); Creatinine Clr Calc Pharmacy 117.9 ml/min; Est GFR (African American) 116.3 ml/min; Est GFR (Non-African American) 100.4 ml/min; Globulin 3.3 gm/dl (2.5-4.0); Potassium 3.9 mmol/L (3.5-5.1); Total Protein 7.2 gm/dl (6.0-8.3)
[2022-03-06] MEDS ORDERED: NovoLIN-R INSULIN PER UNIT CHARGE IV STA (16:22)
--- NOTE | 2022-03-06 16:22 | XRay Report ---
XR chest 1V portable HISTORY: Atypical Chest Pain COMPARISON: Chest 02/22/2022. FINDINGS: The cardiac silhouette remains mildly enlarged. The lungs are clear. No pleural effusions. No pneumothorax. No evidence for pulmonary edema. IMPRESSION: No significant change compared to the prior study. No acute process. ACT 112: Negative or not required by law. Electronically signed by: Luis F Mixon M.D. 03/06/2022 4:21 PM
[2022-03-06 16:25] LABS: Troponin I High Sensitivity 3.8 pg/ml (0-14)
--- NOTE | 2022-03-06 16:53 | History & Physical Report ---
Date of Service March 06, 2022 Assessment & Plan (1) Seizure-like activity: Plan: - Head CT without acute intracranial disease process - MRI brain done on last admission, 02/22 without acute changes, will defer on re-ordering this admission. - EEG ordered, pending. - TSH on 02/20 wnl. - Seizure precautions and fall precautions in place - Neuro consult placed, appreciate their recommendations - Continue on Keppra 500 mg BID. - Placed on telemetry.. (2) Insulin dependent diabetes mellitus: Plan: - Glucose in 300s on admission. Received 8 units regular insulin in ED. - Check sugars achs, continue home insulin regimen Lantus 48 units twice daily, sliding scale with carb ratio. - Hold Trulicity. (3) Chronic obstructive pulmonary disease: Plan: - Chronic, stable, no acute needs today. - Continue home inhalers. (4) Left shoulder pain: Plan: - No evidence of fracture or dislocation on x-ray. - Has diclofenac gel, Flexeril, ibuprofen, trazodone and lidocaine patches for pain in addition to oxycodone 5 mg twice daily, all of which she takes for chronic pain. Oxycodone prescription was recently filled on 02/26. - Continue with above, would not recommend addition of further opiates for pain control. (5) Liver cirrhosis: Plan: - Admit to med-surg w/ telemetry. - SCDS for DVT ppx. - Full Code. History of Present Illness Chief Complaint: Seizure-like activity at home for the past 24 hours Primary Care Provider: Aneudy Pérez MD Mrs. Vick is a 51 yo female with PMHx of DM2, HTN, HLD, chronic pain, COPD, anxiety, and liver cirrhosis who presents today with reports of 4 seizures over the last 24 hours at home. On 4 occasions, patient experienced sudden onset of panic and palpitations with subsequent episodes of passing out at her home and urinary incontinence. She states she is "out of it" for several minutes, and the n regains consciousness but is drowsy for the next half an hour. She has had an ongoing headache with these episodes, primarily have been on the left side over the past day but have been on the right side at times, most recently during her last admission she has associated right-sided headaches. Came in for evaluation today, she is afraid to have another episode at home and injure herself. She was recently admitted on 02/22 for seizure-like activity. At that time, she was evaluated by neurology who suspected these may have been seizure. Head CT and MRI were unremarkable, EEG was negative for epileptiform activity here, but she was to follow-up with neurology as an outpatient and it was recommended she do an outpatient extended 72-hour EEG for better evaluation. She was also started Keppra at this time, 500 mg twice daily. Gabapentin was reduced from 1200 mg 3 times daily to 800 mg 3 times daily. She was also ordered a 30-day cardiac event monitor to determine whether her seizure-like activities may have perhaps been episodes of syncope due to an arrhythmia. In ED, she is tachycardic, otherwise vital signs within normal limits. Labs largely unrevealing, significant for glucose in the 300s. Head CT without intracranial abnormality. CXR without evidence of acute process. Left shoulder x-ray does not show fracture or dislocation. She received ibuprofen for left shoulder pain, 8 units of regular insulin, and a 2L NSS bolus in the ED. Hospitalist service was consulted for further evaluation and admission. Allergies Allergy/AdvReac Type Severity Reaction Status Date / Time acetaminophen AdvReac Severe LIVER Verified 03/06/22 17:15 COMPLICATIONS cephalexin AdvReac Severe Vomiting Verified 03/06/22 17:15 levofloxacin [From Levaquin] AdvReac Intermediate Vomiting Verified 03/06/22 17:15 Home Medications Medication Instructions Recorded Confirmed Type cyclobenzaprine 10 mg tablet 10 mg PO BID PRN #0 11/18/17 03/06/22 History albuterol sulfate 90 mcg/actuation 2 puff INHALATION Q4H PRN #0 02/10/18 03/06/22 History aerosol inhaler (Ventolin HFA) ibuprofen 800 mg tablet 800 mg PO TID PRN 10/24/19 03/06/22 History promethazine 25 mg tablet 25 mg PO Q6H PRN 10/24/19 03/06/22 History oxycodone-acetaminophen 10 mg-325 1 tab PO Q6H PRN #20 tab 02/11/20 Rx mg tablet (Percocet) dulaglutide 1.5 mg/0.5 mL 4.5 mg SUBCUT WK 05/19/20 03/06/22 History subcutaneous pen injector (Trulicity) fluticasone 232 mcg-salmeterol 14 2 inh INHALATION BID PRN 08/21/20 03/06/22 History mcg/actuation breath activated powdr montelukast 10 mg tablet 10 mg PO HS 09/01/20 03/06/22 History (Singulair) aspirin 81 mg tablet,delayed 81 mg PO QAM 10/28/20 03/06/22 History release ipratropium 0.5 mg-albuterol 3 mg 3 ml INHALATION QID PRN 02/12/21 03/06/22 History (2.5 mg base)/3 mL nebulization soln insulin aspart U-100 100 unit/mL 12 unit SC TID ml 02/23/21 03/06/22 History (3 mL) subcutaneous pen (Novolog Flexpen U-100 Insulin aspart) cyclosporine 0.05 % eye drops in a 2 drp OPHTHALMIC (EYE) Q12H 04/17/21 03/06/22 History dropperette (Restasis) sennosides 8.6 mg-docusate sodium 1 tab PO QAM PRN 06/23/21 03/06/22 History 50 mg tablet (Senokot-S) diclofenac sodium 1 % topical gel 4 g TOPICAL QID PRN 07/20/21 03/06/22 History duloxetine 40 mg capsule,delayed 40 mg PO HS 11/28/21 03/06/22 History release albuterol sulfate 2.5 mg INHALATION DAILY PRN 01/19/22 03/06/22 History famotidine 40 mg tablet 40 mg PO BID 01/19/22 03/06/22 History fluticasone propionate 50 1 spray INTRANASAL DAILY PRN 01/19/22 03/06/22 History mcg/actuation nasal spray,suspension lidocaine 5 % topical patch 1 patch TRANSDERMAL DAILY PRN 01/19/22 03/06/22 History nystatin 100,000 unit/gram topical 1 applic TOPICAL DAILY PRN 01/19/22 03/06/22 History powder pantoprazole 20 mg tablet,delayed 20 mg PO QAM 01/19/22 03/06/22 History release polyethylene glycol 3350 17 34 g PO BID 01/29/22 03/06/22 History gram/dose oral powder (Miralax) trazodone 100 mg tablet 100 mg PO HS 04/22/22 05/28/22 History levetiracetam 500 mg tablet 500 mg PO BID #60 tab 02/23/22 03/06/22 Rx (Keppra) oxycodone 5 mg PO BID 03/06/22 03/06/22 History buspirone 5 mg tablet 5 mg PO Q8H PRN #30 tab 03/08/22 Rx gabapentin 600 mg tablet 800 mg PO TID #0 tab 03/08/22 03/06/22 Rx insulin glargine 100 unit/mL (3 55 unit SUBCUT BID #0 ml 03/08/22 03/06/22 Rx mL) subcutaneous pen (Lantus Solostar U-100 Insulin) Past Med/Surg History Medical History Abdominal pain Acute hyperglycemia Anxiety Brain cyst Chest pain Chronic low back pain with left-sided sciatica Chronic obstructive pulmonary disease Dental abscess Depression Elevated lactic acid level Emphysema of lung Encounter for pre-operative examination Hx of blood clots Hyperglycemia Hyperglycemia Hyperglycemia due to type 2 diabetes mellitus Hyperlipidemia Hypertension Hypokalemia Hypomagnesemia Hyponatremia Insulin dependent diabetes mellitus Lightheadedness Medication reaction Obesity Periapical abscess with facial involvement Pulmonary embolism Reports was anticoagulation x 60 days, not on chronic anticoagulation Syncope Thrombocytopenia Tinea corporis Tinea cruris Uncontrolled type 2 diabetes mellitus Surgical History History of laparoscopic cholecystectomy Hx of oral surgery (02/15/20) Acute right submandibular, submental space infection with floor of mouth infection caused by infected lower teeth. Dr. Rios 02/15/20 S/P dilation and curettage S/P laparoscopic hernia repair S/P laparoscopic procedure ovarian cyst surgery Family History Mother , 73 Heart disease Cancer Father Skin cancer Brother No problems noted. Sister No problems noted. Grandmother (Maternal) , 48 Heart disease T2DM (type 2 diabetes mellitus) Grandmother (Paternal) , 83 Heart disease Kidney disease Uncle T2DM (type 2 diabetes mellitus) Other Diabetes Obesity Denies family history of Ovarian cancer Breast cancer Colorectal cancer Uterine cancer Social History Smoking Status: Former smoker Tobacco Type: Cigarettes Cigarettes Per Day: 5; Second Hand Exposure: Yes; Do You Dip or Chew Tobacco: No; Hx Alcohol Use: No Hx Substance Use: No Preferred Language: Algerian Communication Ability: Effective Visual Impairment: No Limitations Hearing Ability: Normal Health Safety Instructor Required: No Beliefs That Will Affect Care: None marital status: Current Living Situation: Alone Current Living Situation Comment: Lives with son (14 yo) current occupational status: unemployed How many Children do You have: 1 Feels Safe at Home: Yes Safety Concerns: Feels Safe At This Time Assistive Devices: None Review of Systems Review of Systems: Constitutional: No fever/chills, weakness, fatigue, myalgias, anorexia, night sweats Eyes: No diplopia, no worsening or blurred vision ENT: normal hearing, no trouble swallowing Respiratory: No cough, sputum, dyspnea at rest or on exertion Cardiovascular: Palpitations without no chest pain, tightness Abdomen: No pain, nausea, vomiting, diarrhea or constipation : Denies dysuria, hematuria, increased urgency/frequency, urinary retention Musculoskeletal: No joint pain, calf pain, swelling Neurologic: No weakness, numbness/tingling, or balance problems Psychiatric: Anxiety onset associated with seizures; no depression Skin: No rash or itch Physical Exam Physical Exam: General: awake, alert, no apparent distress Head: Normocephalic, atraumatic ENT: PERRL, EOMI, no pharyngeal exudate, mucous membranes moist Chest: Clear to auscultation, on room air, no adventitious breath sounds Cardiac: Regular rate and rhythm, no murmur, no JVD, normal peripheral pulses, good capillary refill Abdominal: NABS x 4 quadrants, soft, nontender to palpation, no rebound, guarding or tenderness Extremities: Normal inspection, no peripheral edema or erythema, calfs nontender to palpation Psych: Normal mood and affect Neuro: AAO x 3, strength intact bilaterally and rated 5/5, no motor deficits, speech is clear, no peripheral sensory deficits Skin: no rash or erythema Results & Data Results & Data ([facility]) Vital Signs (Past 12 Hours) Vital Signs Temp Pulse Pulse Resp BP BP Pulse Ox 03/06/22 15:40 95 H 18 134/70 98 03/06/22 15:21 36.7 C 115 H 18 141/78 H 96 Laboratory Results Abnormal lab results 0503/06/22 03/06/22 Range/Units 15:35 15:37 15:37 MPV 11.3 H (7.4-10.4) fL Sodium 133 L (136-145) mmol/L Carbon Dioxide 19 L (21-32) mmol/L POC Total CO2 (24-31) mmol/L POC BUN (7-18) mg/dl BUN 5 L (6-23) mg/dl POC Creatinine (0.6-1.3) mg/dl BUN/Creatinine Ratio 7.5 L (10-20) Glucose 399 H* (70-99(Fasting)) mg/dl POC Glucose 408 H* (70-99) mg/dl POC Glucose (other) (70-99) mg/dl Alkaline Phosphatase 113 H (34-104) U/L Lipase 8 L (11-82) U/L 03/06/22 03/06/22 Range/Units 16:03 16:57 MPV (7.4-10.4) fL Sodium (136-145) mmol/L Carbon Dioxide (21-32) mmol/L POC Total CO2 20 L (24-31) mmol/L POC BUN < 3 L (7-18) mg/dl BUN (6-23) mg/dl POC Creatinine 0.4 L (0.6-1.3) mg/dl BUN/Creatinine Ratio (10-20) Glucose (70-99(Fasting)) mg/dl POC Glucose 357 H* (70-99) mg/dl POC Glucose (other) 391 H* (70-99) mg/dl Alkaline Phosphatase (34-104) U/L Lipase (11-82) U/L Diagnostic Findings Chest X-Ray 03/06/22 15:52 XR chest 1V portable HISTORY: Atypical Chest Pain COMPARISON: Chest 02/22/2022. FINDINGS: The cardiac silhouette remains mildly enlarged. The lungs are clear. No pleural effusions. No pneumothorax. No evidence for pulmonary edema. IMPRESSION: No significant change compared to the prior study. No acute process. ACT 112: Negative or not required by law. Electronically signed by: Luis F Mixon M.D. 03/06/2022 4:[address] 03/06/22 15:[address] DOSE: 537.48 mGy.cm HISTORY: seizure TECHNIQUE: Multiaxial CT images of the head were performed without the use of intravenous contrast. Automated exposure control was utilized for this study. A dose lowering technique was utilized adhering to the principles of ALARA. Comparison: Brain MRI 02/23/2022. Findings: The paranasal sinuses and mastoid air cells are clear. The calvarium a nd skull base are intact. The ventricles and sulci are within normal limits. There is no mass, hematoma, midline shift, or acute infarct. Impression: No acute intracranial abnormality. ACT 112: Negative or not required by law. Electronically signed by: Luis F Mixon M.D. 03/06/2022 4:10 PM Shoulder X-Ray 03/06/22 16:20 LEFT SHOULDER 3 VIEWS HISTORY: Left shoulder pain. COMPARISON: None. FINDINGS: There is no fracture or dislocation. Soft tissues are unremarkable. The left clavicle is intact. There is moderate AC joint arthrosis. IMPRESSION: No fracture or dislocation within the left shoulder. ACT 112: Negative or not required by law. Electronically signed by: Luis F Mixon M.D. 03/06/2022 5:03 PM ECG Additional Comments: Normal sinus rhythm Minimal voltage criteria for LVH, may be normal variant Cannot rule out Anterior infarct (cited on or before 06-MAR-2022) Abnormal ECG When compared with ECG of 22-FEB-2022 18:41, No significant change was found. Code Status & VTE Plan Code Status full code. Supervising Physician Co-Signing Physician Notes I personally saw and examined the patient. I verified all brennan points and agree with Terra Gong PA-C with the following exceptions and/or additions: 51 year old readmission for seizure-like activity. Longstanding history of syncopal episodes. Loss of consciousness for several minutes. Witnesses have told her she shakes all her libs. No urine or bowel incontinence or tongue biting following seizure like activity. Occur only during episodes of heightened anxiety or panic attacks. O/E morbidly obese, HS1+2, no murmurs, Chest CTAB, Abdo SNT, No unilateral focal motor or sensory neurological deficit, CN 2-> 12 intact. A/P Seizure-like activity - on multiple medications lowering seizure threshold such as duloxetine and trazodone. Recently decreasing gabapentin. However low suspicion of true epileptic activity unless recurs in hospital setting without changing her medications. Prolactin level not taken. Recent MRI brain earlier this month without acute pathology. Will repeat EEG. Monitor on med/tele for recurrence. 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 PG Care Time/CCT Total # of Minutes Spent Total Time Spent with Patient: Total time spent is greater than 50% in coordination of care (as documented) at patient's floor/unit and/or counseling patient: Coding Level of Care Code 11507 Initial Inpt Care Lvl 3 Diagnoses Seizure-like activity R56.9 Chronic obstructive pulmonary disease J44.9 Insulin dependent diabetes mellitus E11.9; Z79.4 Liver cirrhosis K74.60 Hepatic cirrhosis type: unspecified hepatic cirrhosis Left shoulder pain M25.512 (1) Liver cirrhosis Hepatic cirrhosis type: unspecified hepatic cirrhosis
--- NOTE | 2022-03-06 17:04 | XRay Report ---
LEFT SHOULDER 3 VIEWS HISTORY: Left shoulder pain. COMPARISON: None. FINDINGS: There is no fracture or dislocation. Soft tissues are unremarkable. The left clavicle is in tact. There is moderate AC joint arthrosis. IMPRESSION: No fracture or dislocation within the left shoulder. ACT 112: Negative or not required by law. Electronically signed by: Luis F Mixon M.D. 03/06/2022 5:03 PM
[2022-03-06] MEDS ORDERED: ONDANSETRON INJ 2 MG/ML 2 ML VIAL IV STA (20:26)
[2022-03-06] MEDS ORDERED: GLUCOSE 10 TABS/TUBE PO PRN (20:58)
[2022-03-06] MEDS ORDERED: CARBOHYDRATES FOR HYPOGLYCEMIA PO PRN (20:58)
[2022-03-06] MEDS ORDERED: GLUCAGON FOR INJ 1 MG VIAL SQ PRN (20:58)
[2022-03-06] MEDS ORDERED: NYSTATIN POWDER 15GM BTL EXT PRN (20:58)
[2022-03-06] MEDS ORDERED: FLUTICASONE PROPIONATE NA SPR 16 GM BTL NAE PRN (20:58)
[2022-03-06] MEDS ORDERED: ALBUTEROL 0.083% NEBU SOLN 3 ML VIAL INH PRN (20:58)
[2022-03-06] MEDS ORDERED: DICLOFENAC SOD 1% GEL 100 GM TUBE EXT PRN (20:58)
[2022-03-06] MEDS ORDERED: PROMETHAZINE HCL 25 MG TAB PO PRN (20:58)
[2022-03-06] MEDS ORDERED: GLUCOSE 40% GEL 15 GM TUBE PO PRN (20:58)
[2022-03-06] MEDS ORDERED: ALBUT/IPRATROP 3MG/0.5MG NEB 3 ML VIAL INH PRN (20:58)
[2022-03-06] MEDS ORDERED: POLYETHYLENE (MIRALAX) 17 GM PACK PO PRN (20:58)
[2022-03-06] MEDS ORDERED: CYCLOBENZAPRINE HCL 10 MG TAB PO PRN (20:58)
[2022-03-06] MEDS ORDERED: ONDANSETRON INJ 2 MG/ML 2 ML VIAL IV PRN (20:58)
[2022-03-06] MEDS ORDERED: LIDOCAINE 5% 1 PATCH TD PRN (20:58)
[2022-03-06] MEDS ORDERED: DOCUSATE SODIUM/SENNA 50/8.6MG TAB PO PRN (20:58)
[2022-03-06] MEDS ORDERED: DEXTROSE 50% 50 ML SYRINGE IV PRN (20:58)
[2022-03-06] MEDS ORDERED: ALBUTEROL HFA 8 GM INHALER INH PRN (20:58)
[2022-03-06] MEDS ORDERED: FLUTICASONE/VILANTEROL 100/25MCG 14 PUFFS/INHALER INH PRN (22:29)
[2022-03-06] MEDS: oxyCODONE HCL IR 5 MG TAB (IMMEDIATE RELEASE) PO PRN (22:41)
[2022-03-06] MEDS: INSULIN ASPART PER UNIT SC SCH (22:42)
[2022-03-06] MEDS: INSULIN GLARGINE SOLOSTAR 100 UNITS/ML 3 ML PEN SQ SCH (22:42)
[2022-03-06] MEDS: GABAPENTIN 600 MG TAB PO SCH (22:43)
[2022-03-06] MEDS: DULoxetine HCL 20 MG CAP PO SCH (22:43)
[2022-03-06] MEDS: FAMOTIDINE 40 MG TABLET PO SCH (22:43)
[2022-03-06] MEDS: levETIRAcetam 500 MG TAB PO SCH (22:58)
[2022-03-06] MEDS: traZODone HCL 100 MG TAB PO SCH (22:59)
[2022-03-06] MEDS: NAPROXEN 375 MG TAB PO SCH (22:59)
[2022-03-06] MEDS: MONTELUKAST SODIUM 10 MG TABLET PO SCH (22:59)
[2022-03-06] MEDS: POLYETHYLENE (MIRALAX) 17 GM PACK PO SCH (22:59)
[2022-03-07 06:13] LABS: Hematocrit (blood only) 36.4 % (37-47); Hemoglobin 12.4 g/dL (12.0-16.0); Mean Corpuscular Hemoglobin 31.6 pg (25-34); Mean Corpuscular Hgb Conc 34.1 g/dL (32-36); Mean Corpuscular Volume 92.9 fL (80-100); Mean Platelet Volume 10.8 fL (7.4-10.4); Platelet Count 135 K/uL (130-400); RDW Coefficient of Variation 13.8 % (11.5-14.5); RDW Standard Deviation 46.2 fL (36.4-46.3); Red Blood Count 3.92 M/uL (4.2-5.4); White Blood Count 5.24 K/uL (4.8-10.8)
[2022-03-07 06:36] LABS: Basophils # (auto) 0.01 K/uL (0-0.2); Basophils % (auto) 0.2 %; Eosinophils % (auto) 3.8 %; Lymphocytes # (auto) 2.63 K/uL (1.2-3.4); Lymphocytes % (auto) 50.2 %; Monocytes # (auto) 0.35 K/uL (0.11-0.59); Monocytes % (auto) 6.7 %; Neutrophils # (auto) 2.05 K/uL (1.4-6.5); Neutrophils % (auto) 39.1 %
[2022-03-07 06:37] LABS: BUN Creatinine Ratio 10.5 (10-20); Calcium 8.3 mg/dl (8.5-10.1); Creatinine Clr Calc Pharmacy 139.2 ml/min; Est GFR (African American) 122.7 ml/min; Est GFR (Non-African American) 105.8 ml/min; Potassium 3.5 mmol/L (3.5-5.1)
[2022-03-07] MEDS: GABAPENTIN 600 MG TAB PO SCH ×2 (08:06→14:07)
[2022-03-07] MEDS: FAMOTIDINE 40 MG TABLET PO SCH ×2 (08:06→21:22)
[2022-03-07] MEDS: levETIRAcetam 500 MG TAB PO SCH ×2 (08:06→21:23)
[2022-03-07] MEDS: POLYETHYLENE (MIRALAX) 17 GM PACK PO SCH ×2 (08:06→21:24)
[2022-03-07] MEDS: NAPROXEN 375 MG TAB PO SCH ×2 (08:06→21:24)
[2022-03-07] MEDS: PANTOprazole 40 MG TAB PO SCH (08:06)
[2022-03-07] MEDS: ASPIRIN 81 MG ECTAB PO SCH (08:06)
[2022-03-07] MEDS: INSULIN GLARGINE SOLOSTAR 100 UNITS/ML 3 ML PEN SQ SCH ×2 (08:07→21:18)
[2022-03-07] MEDS: INSULIN ASPART PER UNIT SC SCH ×4 (08:11→21:19)
[2022-03-07] MEDS: oxyCODONE HCL IR 5 MG TAB (IMMEDIATE RELEASE) PO PRN ×2 (09:18→21:26)
--- NOTE | 2022-03-07 13:58 | Electrocardiogram Report ---
Test Reason : Blood Pressure : / mmHG Vent. Rate : 094 BPM Atrial Rate : 094 BPM P-R Int : 158 ms QRS Dur : 082 ms QT Int : 364 ms P-R-T Axes : 019 -17 034 degrees QTc Int : 455 ms Poor data quality, interpretation may be adversely affected Normal sinus rhythm Poor R wave progression, consider anterior [place] vs. lead placement vs. LVH Abnormal ECG When compared with ECG of 22-FEB-2022 18:41, No significant change was found Confirmed by Eduardo Rai ([id number]) on 03/07/2022 1:58:36 PM Referred By: REFERRED SELF Confirmed By:Eduardo Rai
[2022-03-07] MEDS ORDERED: busPIRone 5 MG TAB PO PRN (16:47)
--- NOTE | 2022-03-07 19:09 | Electroencephalogram ---
EEG Procedure Note Date of Service March 07, 2022 Start / End Times Start Time: 1752 End Time: [address] Park History 51 year old with seizure-like activity Home Medication List Medication Instructions Recorded Confirmed Type cyclobenzaprine 10 mg tablet 10 mg PO BID PRN #0 11/18/17 03/06/22 History gabapentin 600 mg tablet 1,200 mg PO TID #0 tab 11/18/17 03/06/22 History albuterol sulfate 90 mcg/actuation 2 puff INHALATION Q4H PRN #0 02/10/18 03/06/22 History aerosol inhaler (Ventolin HFA) ibuprofen 800 mg tablet 800 mg PO TID PRN 10/24/19 03/06/22 History promethazine 25 mg tablet 25 mg PO Q6H PRN 10/24/19 03/06/22 History oxycodone-acetaminophen 10 mg-325 1 tab PO Q6H PRN #20 tab 02/11/20 Rx mg tablet (Percocet) dulaglutide 1.5 mg/0.5 mL 4.5 mg SUBCUT WK 05/19/20 03/06/22 History subcutaneous pen injector (Trulicity) fluticasone 232 mcg-salmeterol 14 2 inh INHALATION BID PRN 08/21/20 03/06/22 History mcg/actuation breath activated powdr montelukast 10 mg tablet 10 mg PO HS 09/01/20 03/06/22 History (Singulair) aspirin 81 mg tablet,delayed 81 mg PO QAM 10/28/20 03/06/22 History release ipratropium 0.5 mg-albuterol 3 mg 3 ml INHALATION QID PRN 02/12/21 03/06/22 History (2.5 mg base)/3 mL nebulization soln insulin aspart U-100 100 unit/mL 12 unit SC TID ml 02/23/21 03/06/22 History (3 mL) subcutaneous pen (Novolog Flexpen U-100 Insulin aspart) insulin glargine 100 unit/mL (3 48 unit SUBCUT BID ml 02/23/21 03/06/22 History mL) subcutaneous pen (Lantus Solostar U-100 Insulin) cyclosporine 0.05 % eye drops in a 2 drp OPHTHALMIC (EYE) Q12H 04/17/21 03/06/22 History dropperette (Restasis) sennosides 8.6 mg-docusate sodium 1 tab PO QAM PRN 06/23/21 03/06/22 History 50 mg tablet (Senokot-S) diclofenac sodium 1 % topical gel 4 g TOPICAL QID PRN 07/20/21 03/06/22 History duloxetine 40 mg capsule,delayed 40 mg PO HS 11/28/21 03/06/22 History release albuterol sulfate 2.5 mg INHALATION DAILY PRN 01/19/22 03/06/22 History famotidine 40 mg tablet 40 mg PO BID 01/19/22 03/06/22 History fluticasone propionate 50 1 spray INTRANASAL DAILY PRN 01/19/22 03/06/22 History mcg/actuation nasal spray,suspension lidocaine 5 % topical patch 1 patch TRANSDERMAL DAILY PRN 01/19/22 03/06/22 History nystatin 100,000 unit/gram topical 1 applic TOPICAL DAILY PRN 01/19/22 03/06/22 History powder pantoprazole 20 mg tablet,delayed 20 mg PO QAM 01/19/22 03/06/22 History release polyethylene glycol 3350 17 34 g PO BID 01/29/22 03/06/22 History gram/dose oral powder (Miralax) trazodone 100 mg tablet 100 mg PO HS 01/29/22 03/06/22 History levetiracetam 500 mg tablet 500 mg PO BID #60 tab 02/23/22 03/06/22 Rx (Keppra) oxycodone 5 mg PO BID 03/06/22 03/06/22 History Inpatient Medication List Aspirin (Aspirin 81 Mg Ectab) 81 mg PO QAM ON LICENSE OF [facility] Stop: 04/06/22 08:59 Last Admin: 03/07/22 08:06 Dose: 81 mg Documented by: [id number] Cyclobenzaprine HCl (Cyclobenzaprine Hcl 10 Mg Tab) 10 mg PO BID PRN PRN Reason: Muscle Spasm Stop: 04/05/22 20:57 Last Admin: 03/07/22 09:18 Dose: 10 mg Documented by: [id number] Duloxetine HCl (Duloxetine Hcl 20 Mg Cap) [address] [facility] Stop: 04/05/22 20:59 Last Admin: 03/06/22 22:43 Dose: 40 mg Documented by: [id number] Famotidine (Famotidine 40 Mg Tablet) 40 mg PO BID ON LICENSE OF [facility] Stop: 04/05/22 20:59 Last Admin: 03/07/22 08:06 Dose: 40 mg Documented by: [id number] Admin: 03/06/22 22:43 Dose: 40 mg Documented by: [id number] Gabapentin (Gabapentin 600 Mg Tab) 1,200 mg PO TID ON LICENSE OF [facility] Stop: 04/05/22 20:59 Last Admin: 03/07/22 14:07 Dose: 1,200 mg Documented by: [id number] Admin: 03/07/22 08:06 Dose: 1,200 mg Documented by: [id number] Admin: 03/06/22 22:43 Dose: 1,200 mg Documented by: [id number] Insulin Aspart (Insulin Aspart Per Unit) 0 units SC ACHS ON LICENSE OF [facility] Stop: 04/05/22 20:59 Last Admin: 03/07/22 18:07 Dose: 8 units Documented by: [id number] Cosigned by: [id number] Admin: 03/07/22 12:42 Dose: 9 units Documented by: [id number] Cosigned by: [id number] Admin: 03/07/22 08:11 Dose: 8 units Documented by: [id number] Cosigned by: [id number] Admin: 03/06/22 22:42 Dose: 5 units Documented by: [id number] Cosigned by: [id number] Insulin Glargine (Insulin Glargine Solostar 100 Units/Ml 3 Ml Pen) 48 units SQ BID ON LICENSE OF [facility] Stop: 04/05/22 20:59 Last Admin: 03/07/22 08:07 Dose: 48 units Documented by: [id number] Cosigned by: [id number] Admin: 03/06/22 22:42 Dose: 48 units Documented by: [id number] Cosigned by: [id number] Levetiracetam (Levetiracetam 500 Mg Tab) 500 mg PO BID ON LICENSE OF [facility] Stop: 04/05/22 20:59 Last Admin: 03/07/22 08:06 Dose: 500 mg Documented by: [id number] Admin: 03/06/22 22:58 Dose: 500 mg Documented by: [id number] Miscellaneous (Cyclosporine [Restasis] - Order Awaiting Action) 1 ea N/A QS ON LICENSE OF [facility] Stop: 04/06/22 00:00 Last Admin: 03/07/22 15:25 Dose: Not Given Documented by: [id number] Admin: 03/07/22 08:06 Dose: Not Given Documented by: [id number] Admin: 03/06/22 23:23 Dose: Not Given Documented by: [id number] Miscellaneous (Remove Lidoderm Patch) 1 ea N/A DAILY@2100 ON LICENSE OF [facility] Stop: 04/05/22 20:59 Last Admin: 03/06/22 22:44 Dose: Not Given Documented by: [id number] Montelukast Sodium (Montelukast Sodium 10 Mg Tablet) [address] [facility] Stop: 04/05/22 20:59 Last Admin: 03/06/22 22:59 Dose: 10 mg Documented by: [id number] Naproxen (Naproxen 375 Mg Tab) 375 mg PO BID ON LICENSE OF [facility] Stop: 04/05/22 20:59 Last Admin: 03/07/22 08:06 Dose: 375 mg Documented by: [id number] Admin: 03/06/22 22:59 Dose: 375 mg Documented by: [id number] Oxycodone HCl (Oxycodone Hcl Ir 5 Mg Tab (Immediate Release)) 5 mg PO BID PRN PRN Reason: moderate pain Stop: 03/20/22 22:03 Last Admin: 03/07/22 09:18 Dose: 5 mg Documented by: [id number] Admin: 03/06/22 22:41 Dose: 5 mg Documented by: [id number] Pantoprazole Sodium (Pantoprazole 40 Mg Tab) 40 mg PO QAM ON LICENSE OF [facility] Stop: 04/06/22 08:59 Last Admin: 03/07/22 08:06 Dose: 40 mg Documented by: [id number] Polyethylene Glycol (Polyethylene (Miralax) 17 Gm Pack) 34 gm PO BID ON LICENSE OF [facility] Stop: 04/05/22 20:59 Last Admin: 03/07/22 08:06 Dose: Not Given Documented by: [id number] Admin: 03/06/22 22:59 Dose: Not Given Documented by: [id number] Trazodone HCl (Trazodone Hcl 100 Mg Tab) [address] [facility] Stop: 04/05/22 20:59 Last Admin: 03/06/22 22:59 Dose: 100 mg Documented by: [id number] Discontinued Medications Sodium Chloride (Nss 1000ml) 2,000 mls @ 999 mls/hr IV .Q2H1M ONE Stop: 03/06/22 17:52 Last Infusion: 03/06/22 17:54 Dose: 0 mls/hr Documented by: [id number] Admin: 03/06/22 15:58 Dose: 999 mls/hr Documented by: [id number] Ibuprofen (Ibuprofen 200 Mg Tab) 400 mg PO NOW STA Stop: 03/06/22 16:21 Last Admin: 03/06/22 16:25 Dose: 400 mg Documented by: [id number] Insulin Human Regular (Novolin-R Insulin Per Unit Charge) 8 units IV NOW STA Stop: 03/06/22 16:23 Last Admin: 03/06/22 16:29 Dose: 8 units Documented by: [id number] Cosigned by: [id number] Ondansetron HCl (Ondansetron Inj 2 Mg/Ml 2 Ml Vial) 4 mg IV NOW STA Stop: 03/06/22 20:27 Last Admin: 03/06/22 22:41 Dose: 4 mg Documented by: [id number] Description This is a 21 electrode EEG with a single channel dedicated to limited EKG. The electrodes were placed in accordance with the International 10-20 system. Interpretation The predominant background activity consists of a somewhat irregular 9 Hz activity, of up to 50 mV in amplitude,seen symmetrically distributed over the posterior head regions bilaterally. This activity attenuates nicely with eye- opening and other alerting procedures. Photic stimulation was performed and elicited no change in the background activity and no abnormal responses were seen. Hyperventilation was not performed. A minimal amount of muscle and movement artifact activity contaminated the recording and did not hinder interpretation to any significant degree. Throughout the waking portion of the recording, no focal abnormalities, abnormal slow activity, or potentially epileptogenic discharges are seen. The patient entered the drowsy state with no further activation. In summary, this EEG was normal during wakefulness and drowsiness. No focal abnormalities, potentially epileptogenic discharges, or abnormal slow activity was seen. Clinical Correlation The abscence of potentially epileptogenic activity does not exclude a seizure disorder, since interictally, EEGs can be normal. Clinical correlation is required. [facility] EEG Procedure Codes Indication for Procedure (1) Seizure-like activity: Neurology Neurology: 20302 EEG include record awake & drowsy
--- NOTE | 2022-03-07 20:47 | Hospitalist Progress Note ---
Date of Service March 07, 2022 Assessment & Plan (1) Seizure-like activity: Plan: - Head CT without acute intracranial disease process - MRI brain done on last admission, 02/22 without acute changes, no need for repeat. - EEG ordered, pending. - TSH on 02/20 0.693. - Seizure precautions and fall precautions in place - Continue on Keppra 500 mg BID. - Remain on telemetry given recurrent seizures requiring readmission, I suspect these are mostly non-epileptic given correlation with stress and anxiety. Although Buspar is associated with seizures she has been on this is in the past without seizure like activity and prescription would only be PRN. (2) Insulin dependent diabetes mellitus: Plan: - Glucose in 300s on admission. Received 8 units regular insulin in ED. History of poor compliance and hyperglycemia - BSG continuing in the 200s today. 24 hour Basal total 96 units, Novolog 30 units therefore suggests needing tighter bolus control to aim for 50:50 ratio Continue Lantus 48 units BID Novolog: Goal BSG Range: Low 100 mg/dL, High 140 mg/dL Correction Factor: 25 -> 10 mg/dL/unit Carbohydrate ratio = 9 -> 3 g/unit BSGs ACHS if eating, q6h if npo - Hold Trulicity. HbA1C pending (3) Chronic obstructive pulmonary disease: Plan: - Chronic, stable, no acute needs today. - Continue home inhalers. (4) Left shoulder pain: Plan: Improving - No evidence of fracture or dislocation on x-ray. - Has diclofenac gel, Flexeril, ibuprofen, trazodone and lidocaine patches for pain in addition to oxycodone 5 mg twice daily, all of which she takes for chronic pain. Oxycodone prescription was recently filled on 02/26. - Continue with above, would not recommend addition of further opiates for pain control. (5) Liver cirrhosis: Plan: - Continue on med-surg w/ telemetry, suspect can be discharged home tomorrow if no further events - SCDS for DVT ppx. - Full Code. Admission and Anticipated Discharge Date Admission Date: March 06, 2022 Subjective No further seizure like episodes. She reports episodes occur after feeling anxious and feeling like she is going to have a panic attack. Previously took BuSpar about a year ago and found this useful as she feels she doesn't need and SSRI as she is not overtly anxious at baseline. Generally feels better with resting in the hospital. Shoulder pain improving. Review of Systems Review of Systems: All systems reviewed & are unremarkable except as noted in Subjective Physical Exam Constitutional: well developed and well nourished; no acute distress Eyes: PERRL, conjunctivae normal, anicteric sclerae Respiratory: normal respiratory effort, lungs clear to auscultation Cardiovascular: RRR, no murmur, no edema Gastrointestinal (Abdomen): normal bowel sounds, soft, nontender, no hepatosplenomegaly Skin: no rashes, warm and dry Neurologic: moves all extremities and awake; no focal motor deficits and not confused Speech / Cognition: normal speech Motor/Sensory: no tremor and no pronator drift Psychiatric: A+Ox3, euthymic affect Results & Data Results & Data ([facility]) Vital Signs (Past 12 Hours) Vital Signs Temp Pulse Pulse Resp BP Pulse Ox 03/07/22 19:34 36.6 C 76 18 108/66 97 03/07/22 15:21 66 03/07/22 14:50 36.9 C 59 L 18 111/72 96 03/07/22 10:51 36.8 C 74 18 105/71 94 PG Care Time/CCT Total # of Minutes Spent Total Time Spent with Patient: Total time spent is greater than 50% in coordination of care (as documented) at patient's floor/unit and/or counseling patient: Coding Level of Care Code 85983 Subseq Hosp Care Lvl 2 Diagnoses Seizure-like activity R56.9 Insulin dependent diabetes mellitus E11.9; Z79.4 Chronic obstructive pulmonary disease J44.9 Left shoulder pain M25.512 Liver cirrhosis K74.60 Hepatic cirrhosis type: unspecified hepatic cirrhosis (1) Liver cirrhosis Hepatic cirrhosis type: unspecified hepatic cirrhosis
[2022-03-07] MEDS: DULoxetine HCL 20 MG CAP PO SCH (21:21)
[2022-03-07] MEDS: MONTELUKAST SODIUM 10 MG TABLET PO SCH (21:23)
[2022-03-07] MEDS: traZODone HCL 100 MG TAB PO SCH (21:24)
[2022-03-07] MEDS: GABAPENTIN 800 MG TAB PO SCH (21:25)
[2022-03-08] MEDS: INSULIN ASPART PER UNIT SC SCH (09:02)
[2022-03-08] MEDS: ASPIRIN 81 MG ECTAB PO SCH (09:03)
[2022-03-08] MEDS: PANTOprazole 40 MG TAB PO SCH (09:03)
[2022-03-08] MEDS: GABAPENTIN 800 MG TAB PO SCH (09:03)
[2022-03-08] MEDS: NAPROXEN 375 MG TAB PO SCH (09:04)
[2022-03-08] MEDS: levETIRAcetam 500 MG TAB PO SCH (09:04)
[2022-03-08] MEDS: INSULIN GLARGINE SOLOSTAR 100 UNITS/ML 3 ML PEN SQ SCH (09:05)
[2022-03-08] MEDS: FAMOTIDINE 40 MG TABLET PO SCH (09:05)
[2022-03-08] MEDS: POLYETHYLENE (MIRALAX) 17 GM PACK PO SCH (09:06)
[2022-03-08] MEDS: oxyCODONE HCL IR 5 MG TAB (IMMEDIATE RELEASE) PO PRN (09:13)
[2022-03-08 09:54] LABS: Estimated Average Glucose 255 mg/dl; Hemoglobin A1C 10.5 % (4.5-5.6)
--- NOTE | 2022-03-08 11:02 | Discharge Summary ---
Date of Service March 08, 2022 Admission HPI Per Admitting Provider Mrs. Vick is a 51 yo female with PMHx of DM2, HTN, HLD, chronic pain, COPD, anxiety, and liver cirrhosis who presents today with reports of 4 seizures over the last 24 hours at home. On 4 occasions, patient experienced sudden onset of panic and palpitations with subsequent episodes of passing out at her home and urinary incontinence. She states she is "out of it" for several minutes, and then regains consciousness but is drowsy for the next half an hour. She has had an ongoing headache with these episodes, primarily have been on the left side over the past day but have been on the right side at times, most recently during her last admission she has associated right-sided headaches. Came in for evaluation today, she is afraid to have another episode at home and injure herself. She was recently admitted on 02/22 for seizure-like activity. At that time, she was evaluated by neurology who suspected these may have been seizure. Head CT and MRI were unremarkable, EEG was negative for epileptiform activity here, but she was to follow-up with neurology as an outpatient and it was recommended she do an outpatient extended 72-hour EEG for better evaluation. She was also started Keppra at this time, 500 mg twice daily. Gabapentin was reduced from 1200 mg 3 times daily to 800 mg 3 times daily. She was also ordered a 30-day cardiac event monitor to determine whether her seizure-like activities may have perhaps been episodes of syncope due to an arrhythmia. In ED, she is tachycardic, otherwise vital signs within normal limits. Labs largely unrevealing, significant for glucose in the 300s. Head CT without intracranial abnormality. CXR without evidence of acute process. Left shoulder x-ray does not show fracture or dislocation. She received ibuprofen for left shoulder pain, 8 units of regular insulin, and a 2L NSS bolus in the ED. Hospitalist service was consulted for further evaluation and admission. Principal Diagnosis Seizure-like activity Discharge Exam Constitutional WD/WN, vitals as above + morbidly obese Respiratory normal respiratory effort, lungs clear to auscultation Cardiovascular RRR, no murmur, no edema Gastrointestinal (Abdomen) normal bowel sounds, soft, nontender, no hepatosplenomegaly Musculoskeletal no cyanosis or clubbing, extremities motor strength 5/5 Skin no rashes, warm and dry Neurologic moves all extremities and awake Psychiatric A+Ox3, euthymic affect Discharge Data Allergies Allergy/AdvReac Type Severity Reaction Status Date / Time acetaminophen AdvReac Severe LIVER Verified 03/06/22 17:15 COMPLICATIONS cephalexin AdvReac Severe Vomiting Verified 03/06/22 17:15 levofloxacin [From Levaquin] AdvReac Intermediate Vomiting Verified 03/06/22 17:15 Consultations 03/06/22 16:50 ED Decision to Admit Stat Ordered Studies 03/06/22 15:52 CT head/brain wo con Stat Impression: No acute intracranial abnormality. Hospital Course (1) Seizure-like activity: Elza Vick is a 51 year old female admitted to [facility] from March 06 - 2021 due to seizure-like episodes. She was recently admitted for the same seizure-like episodes from February 20 to 2021 and started on Keppra by neurology, although there ws question of psychogenic non-epileptic seizures (PNES) on that occasion. On this admission her EEG was repeated and again showed no focal abnormalities or potential epileptogenic discharges. She had no further seizure-like episodes during her admission. She was recommended to avoid alcohol although reports having little alcohol consumption at baseline. She was informed not to drive for 6 months from her last seizure or unless cleared by neurology and DMV notice sent to the this effect. Given association with anxiety and panic attacks I suspect these represent PNES. On discussion with the patient despite BuSpar potentially lowering seizure threshold we will trial this PRN as she has found it useful in the past for acute anxiety attacks and would be helpful if these are PNES. Alternatively she could be prescribed b enzodiazepines for anxiety attacks which would clearly be better if these are epileptic seizures in nature however I have concern prescribing benzodiazepines initially due to her chronic opiate use. If recurring episodes would highly consider low doses of benzodiazepines instead of the BuSpar. She should follow up as previously arranged with neurology for ongoing work-up of the seizure-like activity and 30 day director of cardiac rehabilitation for arrhythmia workup. She was kept on telemetry for her admission here with no arrhythmias (but also no syncopal episodes). HbA1C 10.5. Recommend increasing Lantus by approximately 10% to 55 units twice daily. She was advised to follow up with her PCP regarding ongoing management of this. She hurt her left shoulder on one of these episodes however she has full range of movement and it is improving with NSAIDs (topical and oral). Consider physical therapy for suspected shoulder impingement if this is not improving on follow up. As per previous recommendations from neurology suggested reducing your gabapentin to 800 mg 3 times daily which she reports she has already done however was listed as 1200mg on the initial med rec. Kind regards, Dr Gerard Park (2) Insulin dependent diabetes mellitus: (3) Chronic obstructive pulmonary disease: (4) Left shoulder pain: (5) Liver cirrhosis: Total Time Total Time Spent Total Time Spent (In Minutes): 40 Discharge Plan Discharge Items Patient Disposition: Home - Self-Care Reason For Visit: SEIZURE VERSUS SYNCOPAL EPISODES Discharge Diagnosis: Seizure-like activity Activity: Resume your previous activity Non-emergency contact: Primary Care Provider and Neurologist Call non-emergency contact if: you have any medication questions and your symptoms worsen Follow-up/Referrals: Aneudy Pérez MD [Primary Care Provider] - Diet: Carb Consistent or DM2 Addtl Attending Provider Instructions: You were admitted to [facility] from March 06 - 2021 due to seizure-like episodes. You were recently admitted for the same seizure-like episodes from February 20 to 2021 and started on Keppra by neurology. On this occasion your EEG was repeated and again showed no focal abnormalities or potential epileptogenic discharges. You had no further episodes during your admission. Recommend avoiding alcohol as this will reduce your seizure threshold. 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 On discussion despite mild decrease seizure threshold with BuSpar this would help with psychogenic nonepileptic seizures and since you have found this useful in the past for anxiety we will prescribe it for you again as needed. If you are requiring this regularly please talk to your primary care physician for alternative medications for your anxiety. Please follow-up with neurology for ongoing work-up of the seizure-like activity. HbA1C 10.5. Please continue to work with your primary care physician for better control of your diabetes. Recommend increasing your Lantus by approximately 10% to 55 units twice daily. For your left shoulder pain recommend continuing diclofenac gel and naproxen or ibuprofen (not both). Please follow-up with your primary care physician for consideration of physical therapy if this is not improving. As per previous recommendations from neurology suggest reducing your gabapentin to 800 mg 3 times daily. Pending Studies at Discharge: No Stand-Alone Forms: My [facility], Smoking Cessation Medications and DC Order Prescriptions: New buspirone 5 mg Tablet 5 mg PO Q8H PRN (Reason: anxiety) Qty: 30 RF: 0 Continued cyclobenzaprine 10 mg Tablet 10 mg PO BID PRN (Reason: Muscle Spasm) Qty: 0 RF: 0 albuterol sulfate [Ventolin HFA] 90 mcg/actuation Hfa Aerosol Inhaler 2 puff INHALATION Q4H PRN (Reason: Shortness Of Breath Or Wheezing) Qty: 0 RF: 0 montelukast [Singulair] 10 mg tablet 10 mg PO HS RF: 0 Trulicity 1.5 mg/0.5 mL pen injector 4.5 mg SUBCUT WK RF: 0 fluticasone propion-salmeterol 232-14 mcg/actuation aerosol powdr breath activated 2 inh inhalation BID PRN (Reason: Shortness Of Breath) RF: 0 insulin aspart U-100 [Novolog Flexpen U-100 Insulin] 100 unit/mL (3 mL) insulin pen 12 unit SC TID RF: 0 ibuprofen 800 mg tablet 800 mg PO TID PRN (Reason: Pain) RF: 0 promethazine 25 mg tablet 25 mg PO Q6H PRN (Reason: Nausea) RF: 0 aspirin 81 mg Tablet,Delayed Release (Dr/Ec) 81 mg PO QAM RF: 0 ipratropium-albuterol 0.5 mg-3 mg(2.5 mg base)/3 mL solution for nebulization 3 ml INHALATION QID PRN (Reason: Shortness Of Breath) RF: 0 cyclosporine [Restasis] 0.05 % Dropperette 2 drp OPHTHALMIC (EYE) Q12H RF: 0 sennosides-docusate sodium [Senokot-S] 8.6-50 mg tablet 1 tab PO QAM PRN (Reason: Constipation) RF: 0 oxycodone 5 MG 5 mg PO BID RF: 0 diclofenac sodium 1 % Gel 4 g TOPICAL QID PRN (Reason: Pain) RF: 0 duloxetine 40 mg Capsule,Delayed Release(Dr/Ec) 40 mg PO HS RF: 0 albuterol sulfate 2.5 mg /3 mL (0.083 %) solution for nebulization 2.5 mg inhalation DAILY PRN (Reason: Shortness Of Breath) RF: 0 famotidine 40 mg tablet 40 mg PO BID RF: 0 pantoprazole 20 mg tablet,delayed release (DR/EC) 20 mg PO QAM RF: 0 lidocaine 5 % adhesive patch,medicated 1 patch transdermal DAILY PRN (Reason: Pain) RF: 0 nystatin 100,000 unit/gram powder 1 applic TOPICAL DAILY PRN (Reason: Rash) RF: 0 fluticasone propionate 50 mcg/actuation spray,suspension 1 spray INTRANASAL DAILY PRN (Reason: Congestion) RF: 0 trazodone 100 mg tablet 100 mg PO HS RF: 0 polyethylene glycol 3350 [Miralax] 17 gram/dose Powder 34 g PO BID RF: 0 levetiracetam [Keppra] 500 mg tablet 500 mg PO BID Qty: 60 RF: 2 Changed gabapentin 600 mg Tablet 800 mg PO TID Qty: 0 RF: 0 Lantus Solostar U-100 Insulin 100 unit/mL (3 mL) insulin pen 55 unit SUBCUT BID Qty: 0 RF: 0 Discharge Orders: Discharge Order (Routine); Ordered 03/08/22 Ordered By: Gerard Park Admission Data Admit Date/Time: 03/06/22 18:33 Attending Provider: Gerard Park Admit Provider: Gerard Park Primary Care Provider: Aneudy Pérez Other Providers: Gerard Park Coding Level of Care Code D/C DAY MANAGEMENT >30 MINS Diagnoses Seizure-like activity R56.9 Insulin dependent diabetes mellitus E11.9; Z79.4 Chronic obstructive pulmonary disease J44.9 Left shoulder pain M25.512 Liver cirrhosis K74.60 Hepatic cirrhosis type: unspecified hepatic cirrhosis
== END 2022-03-08 11:23 | disposition home or self-care (01) ==
LOC: ED 15:20 → 2N 18:33 → INTOOBSV 18:33 → 2N 20:25

== ENCOUNTER 2022-04-05 14:47 | Observation (INO) ==
[2022-04-05] MEDS ORDERED: levETIRAcetam 500 MG in 0.9 % SODIUM CHLORIDE 100 ML IV STA (14:58)
[2022-04-05] MEDS ORDERED: ONDANSETRON INJ 2 MG/ML 2 ML VIAL IV STA (14:58)
[2022-04-05] MEDS ORDERED: NovoLIN-R INSULIN PER UNIT CHARGE IV STA ×2 (15:00→17:35)
[2022-04-05] MEDS ORDERED: SODIUM CHLORIDE 0.9% 1000ML 1,000 ML IV SCH (15:00)
--- NOTE | 2022-04-05 15:03 | Emergency Department Note ---
Impression & Plan Acute hyperglycemia, Acute dehydration, Seizure ED Provider Note She does notNAME: MARCIO FERNANDEZ AGE: 51 SEX: F : 1970 ARRIVES VIA: Ambulance INFORMANT: [Patient] ED PROVIDER(S): [Kumar Coronado MD] CHIEF COMPLAINT: Hyperglycemia HISTORY OF PRESENT ILLNESS: The patient is a 51-year-old female with diabetes and a seizure disorder. The patient states that in the last 48 hours, she has had 4 seizures. This morning, she had a blood sugar over 500. Despite taking her medications and using insulin, the sugar is still over 500. She feels dehydrated, she is urinating quite frequently. She is quite thirsty. She feels nauseated. There has been no fever, no increased cough. No abdominal pain, chest pain. The patient is currently taking 5 mg of Keppra twice a day. Her doctors have been talking about increasing her dose. REVIEW OF SYSTEMS: See HPI for pertinent positives and negatives. A total of ten systems were reviewed and were otherwise negative. PMHx/PSHx: See Below SOCIAL HISTORY: See Below. PHYSICAL EXAM: GENERAL: Patient is in no acute distress. HEENT: No acute trauma, normocephalic atraumatic, mucous membranes somewhat dry, no nasal congestion, no scleral icterus. NECK: No stridor, no adenopathy, no meningismus, trachea is midline. LUNGS: Clear to auscultation bilaterally, no wheeze, no rhonchi, breath sounds equal. HEART: Without murmurs gallops or rubs, regular rate and rhythm. ABDOMEN: Soft, nontender, bowel sounds positive, no peritonitis. EXTREMITIES: No cyanosis or edema, full range of motion of all the joints without pain or difficulty, no signs for acute trauma. NEUROLOGIC: Oriented x 3, no acute motor or sensory deficits, no focal weakness. SKIN: No rash, no jaundice, no diaphoresis. DIFFERENTIAL DIAGNOSIS: Infection, dehydration, diabetic ketoacidosis, UTI, metabolic abnormality, hypo/hyperglycemia, electrolyte disturbance, anemia, hypoxia, cardiac sources, intracerebral event, toxicologic issues, as well as other pathologies. EMERGENCY DEPARTMENT COURSE/PROCEDURES: ECG: Indication was weakness. The ECG shows a normal sinus rhythm with a rate of 87. LVH is present. There is poor R wave progression. There is no ST elevation, no PVCs. QTC is 481. Continuous Cardiac Monitoring: An order was placed for continuous cardiac monitoring. The monitor shows a rate of 79 with normal sinus rhythm. MEDICAL DECISION MAKING: There is no leukocytosis or concerning anemia. There is a normal platelet count. Venous blood gas did not show any acidosis. Renal panel testing shows hyperglycemia, no renal failure. No concerning liver enzyme elevation. ECG shows a normal sinus rhythm, no obvious acute ischemia. Cardiac enzyme testing x1 is not consistent with acute cardiac injury. Patient appears to be in a euthyroid state. COVID test returned negative. Chest film does not show CHF or pneumonia. Urinalysis result is still pending. On exam, the patient did appear a bit dehydrated. The patient was given IV saline, 2.5 L. She was given IV insulin, 10 units, a second bolus of 10 units of insulin was given. She received IV Toradol for her back pain, IV Keppra to prevent further seizure activity. She was given IV Zofran. Despite the insulin and fluids, the patient's sugar is still in the 300s. I do not think she is safe for discharge home. She requires further glucose control, further hydration and care in the hospital. I spoke with the patient and case management. The on-call hospitalist was consulted. Past Med/Surg History Medical History Abdominal pain Acute hyperglycemia Anxiety Brain cyst Chest pain Chronic low back pain with left-sided sciatica Chronic obstructive pulmonary disease Dental abscess Depression Elevated lactic acid level Emphysema of lung Encounter for pre-operative examination Hx of blood clots Hyperglycemia Hyperglycemia Hyperglycemia due to type 2 diabetes mellitus Hyperlipidemia Hypertension Hypokalemia Hypomagnesemia Hyponatremia Insulin dependent diabetes mellitus Lightheadedness Medication reaction Obesity Periapical abscess with facial involvement Pulmonary embolism Reports was anticoagulation x 60 days, not on chronic anticoagulation Syncope Thrombocytopenia Tinea corporis Tinea cruris Uncontrolled type 2 diabetes mellitus Surgical History History of laparoscopic cholecystectomy Hx of oral surgery (02/15/20) Acute right submandibular, submental space infection with floor of mouth infection caused by infected lower teeth. Dr. Rios 02/15/20 S/P dilation and curettage S/P laparoscopic hernia repair S/P laparoscopic procedure ovarian cyst surgery Family History Mother , 73 Heart disease Cancer Father Skin cancer Brother No problems noted. Sister No problems noted. Grandmother (Maternal) , 48 Heart disease T2DM (type 2 diabetes mellitus) Grandmother (Paternal) , 83 Heart disease Kidney disease Uncle T2DM (type 2 diabetes mellitus) Other Diabetes Obesity Denies family history of Ovarian cancer Breast cancer Colorectal cancer Uterine cancer Social History Smoking Status: Never smoker Tobacco Type: Cigarettes Cigarettes Per Day: 5; Second Hand Exposure: Yes; Hx Alcohol Use: No Hx Substance Use: No Preferred Language: Mongolian Communication Ability: Effective Visual Impairment: No Limitations Hearing Ability: Normal Commercial Teller Required: No Beliefs That Will Affect Care: None marital status: Current Living Situation: Alone Current Living Situation Comment: Lives with son (14 yo) current occupational status: unemployed How many Children do You have: 1 Feels Safe at Home: Yes Assistive Devices: None Allergies Allergies Allergy/AdvReac Type Severity Reaction Status Date / Time acetaminophen AdvReac Severe LIVER Verified 04/05/22 19:19 COMPLICATIONS cephalexin AdvReac Severe Vomiting Verified 04/05/22 19:19 levofloxacin [From Levaquin] AdvReac Intermediate Vomiting Verified 04/05/22 19:19 Home Meds Home Medications Medication Instructions Recorded Confirmed cyclobenzaprine 10 mg tablet 10 mg PO BID PRN #0 11/18/17 04/05/22 albuterol sulfate 90 mcg/actuation 2 puff INHALATION Q4H PRN #0 02/10/18 04/05/22 aerosol inhaler (Ventolin HFA) ibuprofen 800 mg tablet 800 mg PO TID PRN 10/24/19 04/05/22 promethazine 25 mg tablet 25 mg PO Q6H PRN 10/24/19 04/05/22 fluticasone 232 mcg-salmeterol 14 2 inh INHALATION BID PRN 08/21/20 04/05/22 mcg/actuation breath activated powdr (AirDuo RespiClick) montelukast 10 mg tablet 10 mg PO HS 09/01/20 04/05/22 (Singulair) aspirin 81 mg tablet,delayed 81 mg PO QAM 10/28/20 04/05/22 release ipratropium 0.5 mg-albuterol 3 mg 3 ml INHALATION QID PRN 02/12/21 04/05/22 (2.5 mg base)/3 mL nebulization soln insulin aspart U-100 100 unit/mL 12 unit SC TID ml 02/23/21 04/05/22 (3 mL) subcutaneous pen (Novolog Flexpen U-100 Insulin aspart) cyclosporine 0.05 % eye drops in a 2 drp OPHTHALMIC (EYE) Q12H 04/17/21 04/05/22 dropperette (Restasis) diclofenac sodium 1 % topical gel 4 g TOPICAL QID PRN 07/20/21 04/05/22 albuterol sulfate 2.5 mg INHALATION DAILY PRN 01/19/22 04/05/22 famotidine 40 mg tablet 40 mg PO BID 01/19/22 04/05/22 fluticasone propionate 50 1 spray INTRANASAL DAILY PRN 01/19/22 04/05/22 mcg/actuation nasal spray,suspension (Flonase Allergy Relief) lidocaine 5 % topical patch 1 patch TRANSDERMAL DAILY PRN 01/19/22 04/05/22 nystatin 100,000 unit/gram topical 1 applic TOPICAL DAILY PRN 01/19/22 04/05/22 powder pantoprazole 20 mg tablet,delayed 20 mg PO QAM 01/19/22 04/05/22 release polyethylene glycol 3350 17 34 g PO BID 01/29/22 04/05/22 gram/dose oral powder (Miralax) trazodone 100 mg tablet 100 mg PO HS 01/29/22 04/05/22 oxycodone 5 mg PO BID 03/06/22 04/05/22 duloxetine 60 mg capsule,delayed 60 mg PO HS 03/12/22 04/05/22 release insulin glargine 100 unit/mL (3 58 unit SUBCUT BID 03/12/22 04/05/22 mL) subcutaneous pen (Lantus Solostar U-100 Insulin) dulaglutide 4.5 mg/0.5 mL 4.5 mg SUBCUT WK 04/05/22 04/05/22 subcutaneous pen injector (Trulicity) gabapentin 800 mg tablet 800 mg PO TID 04/05/22 04/05/22 Previous Rx's Medication Instructions Recorded oxycodone-acetaminophen 10 mg-325 1 tab PO Q6H PRN #20 tab 02/11/20 mg tablet (Percocet) levetiracetam 500 mg tablet 500 mg PO BID #60 tab 02/23/22 (Keppra) buspirone 5 mg tablet 5 mg PO Q8H PRN #30 tab 03/08/22 nystatin 100,000 unit/gram topical 1 applic TOPICAL TID #15 g 03/12/22 cream Results & Data (ED) Vital Signs Vital Signs - 24 hr 04/05/22 14:58 04/05/22 15:30 04/05/22 17:00 Temperature 36.9 C Temperature Source Oral Pulse Rate 99 H Pulse Rate [Apical] 79 Respiratory Rate 19 19 Respiratory Effort / Characteristics Non-Labored Respiratory Depth Normal Blood Pressure 109/79 Blood Pressure [Right Arm] 120/91 Blood Pressure Mean 89 Blood Pressure Mean [Right Arm] 100 Pulse Oximetry 96 95 98 Oxygen Delivery Method Room Air Room Air Room Air Sepsis Recent Fever Within 48 Hours No Sepsis New/Unexplained Change in Mental Status No Sepsis Action Taken by Nursing No Action Required 04/05/22 19:00 04/05/22 21:00 Temperature Temperature Source Pulse Rate Pulse Rate [Apical] 71 69 Respiratory Rate 19 17 Respiratory Effort / Characteristics Non-Labored Spontaneous Non-Labored Spontaneous Respiratory Depth Normal Normal Blood Pressure Blood Pressure [Right Arm] 104/76 105/70 Blood Pressure Mean Blood Pressure Mean [Right Arm] 85 81 Pulse Oximetry 98 95 Oxygen Delivery Method Room Air Room Air Sepsis Recent Fever Within 48 Hours Sepsis New/Unexplained Change in Mental Status Sepsis Action Taken by Residential Medications Current Medication List: was personally reviewed by me Laboratory Data Attestation: I reviewed the patient's lab results. Result diagrams: 04/05/22 15:30 04/05/22 15:30 Lab Results 04/05/22 04/05/22 04/05/22 Range/Units 15:30 15:30 15:30 WBC 6.06 (4.8-10.8) K/uL RBC 4.25 (4.2-5.4) M/uL Hgb 13.7 (12.0-16.0) g/dL Hct 38.8 (37-47) % MCV 91.3 (80-100) fL MCH 32.2 (25-34) pg MCHC 35.3 (32-36) g/dL RDW Std Deviation 46.8 H (36.4-46.3) fL RDW Coeff of Kelli 14.2 (11.5-14.5) % Plt Count 143 (130-400) K/uL MPV 11.0 H (7.4-10.4) fL Immature Gran % (Auto) 0.0 % Neut % (Auto) 62.8 % Lymph % (Auto) 26.1 % [place] % (Auto) 9.1 % Eos % (Auto) 1.8 % Baso % (Auto) 0.2 % Neut # (Auto) 3.81 (1.4-6.5) K/uL Lymph # (Auto) 1.58 (1.2-3.4) K/uL [place] # (Auto) 0.55 (0.11-0.59) K/uL Eos # (Auto) 0.11 (0-0.5) K/uL Baso # (Auto) 0.01 (0-0.2) K/uL Immature Gran # (Auto) 0.00 (0.00-0.02) K/uL VBG pH (7.36-7.41) VBG pCO2 (38-50) mmHg VBG pO2 mmHg VBG HCO3 mmol/L VBG O2 Saturation % VBG Base Excess mEq/L Sodium 135 L (136-145) mmol/L Potassium 4.1 (3.5-5.1) mmol/L Chloride 101 (98-107) mmol/L Carbon Dioxide 25 (21-32) mmol/L Anion Gap 9 (3-11) BUN 6 (6-23) mg/dl Creatinine 0.63 (0.6-1.2) mg/dl Est Cr Clr Drug Dosing 125.5 ml/min Est GFR ( Amer) 118.7 ml/min Est GFR (Non-Af Amer) 102.4 ml/min BUN/Creatinine Ratio 9.5 L (10-20) Glucose 472 H* (70-99(Fasting)) mg/dl POC Glucose (70-99) mg/dl Calcium 9.4 (8.5-10.1) mg/dl Magnesium 1.7 (1.7-2.4) mg/dl Total Bilirubin 0.5 (0.2-1.0) mg/dl AST 17 (13-39) U/L ALT 15 (7-52) U/L Alkaline Phosphatase 108 H (34-104) U/L Troponin I High Sens 3.4 (0-14) pg/ml Total Protein 7.0 (6.0-8.3) gm/dl Albumin 3.6 (3.4-5.0) gm/dl Globulin 3.4 (2.5-4.0) gm/dl Albumin/Globulin Ratio 1.1 (0.9-2) TSH 1.435 (0.300-4.500) uIu/ml SARS-CoV-2, RNA, NAAT (NEGATIVE) 04/05/22 04/05/22 04/05/22 Range/Units 15:30 15:32 16:25 WBC (4.8-10.8) K/uL RBC (4.2-5.4) M/uL Hgb (12.0-16.0) g/dL Hct (37-47) % MCV (80-100) fL MCH (25-34) pg MCHC (32-36) g/dL RDW Std Deviation (36.4-46.3) fL RDW Coeff of Kelli (11.5-14.5) % Plt Count (130-400) K/uL MPV (7.4-10.4) fL Immature Gran % (Auto) % Neut % (Auto) % Lymph % (Auto) % [place] % (Auto) % Eos % (Auto) % Baso % (Auto) % Neut # (Auto) (1.4-6.5) K/uL Lymph # (Auto) (1.2-3.4) K/uL [place] # (Auto) (0.11-0.59) K/uL Eos # (Auto) (0-0.5) K/uL Baso # (Auto) (0-0.2) K/uL Immature Gran # (Auto) (0.00-0.02) K/uL VBG pH 7.45 H (7.36-7.41) VBG pCO2 42 (38-50) mmHg VBG pO2 37 mmHg VBG HCO3 29 mmol/L VBG O2 Saturation 64.3 % VBG Base Excess 4.7 mEq/L Sodium (136-145) mmol/L Potassium (3.5-5.1) mmol/L Chloride (98-107) mmol/L Carbon Dioxide (21-32) mmol/L Anion Gap (3-11) BUN (6-23) mg/dl Creatinine (0.6-1.2) mg/dl Est Cr Clr Drug Dosing ml/min Est GFR ( Amer) ml/min Est GFR (Non-Af Amer) ml/min BUN/Creatinine Ratio (10-20) Glucose (70-99(Fasting)) mg/dl POC Glucose 466 H* (70-99) mg/dl Calcium (8.5-10.1) mg/dl Magnesium (1.7-2.4) mg/dl Total Bilirubin (0.2-1.0) mg/dl AST (13-39) U/L ALT (7-52) U/L Alkaline Phosphatase (34-104) U/L Troponin I High Sens (0-14) pg/ml Total Protein (6.0-8.3) gm/dl Albumin (3.4-5.0) gm/dl Globulin (2.5-4.0) gm/dl Albumin/Globulin Ratio (0.9-2) TSH (0.300-4.500) uIu/ml SARS-CoV-2, RNA, NAAT NEGATIVE (NEGATIVE) 04/05/22 04/05/22 04/05/22 Range/Units 16:28 17:28 18:15 WBC (4.8-10.8) K/uL RBC (4.2-5.4) M/uL Hgb (12.0-16.0) g/dL Hct (37-47) % MCV (80-100) fL MCH (25-34) pg MCHC (32-36) g/dL RDW Std Deviation (36.4-46.3) fL RDW Coeff of Kelli (11.5-14.5) % Plt Count (130-400) K/uL MPV (7.4-10.4) fL Immature Gran % (Auto) % Neut % (Auto) % Lymph % (Auto) % [place] % (Auto) % Eos % (Auto) % Baso % (Auto) % Neut # (Auto) (1.4-6.5) K/uL Lymph # (Auto) (1.2-3.4) K/uL [place] # (Auto) (0.11-0.59) K/uL Eos # (Auto) (0-0.5) K/uL Baso # (Auto) (0-0.2) K/uL Immature Gran # (Auto) (0.00-0.02) K/uL VBG pH (7.36-7.41) VBG pCO2 (38-50) mmHg VBG pO2 mmHg VBG HCO3 mmol/L VBG O2 Saturation % VBG Base Excess mEq/L Sodium (136-145) mmol/L Potassium (3.5-5.1) mmol/L Chloride (98-107) mmol/L Carbon Dioxide (21-32) mmol/L Anion Gap (3-11) BUN (6-23) mg/dl Creatinine (0.6-1.2) mg/dl Est Cr Clr Drug Dosing ml/min Est GFR ( Amer) ml/min Est GFR (Non-Af Amer) ml/min BUN/Creatinine Ratio (10-20) Glucose (70-99(Fasting)) mg/dl POC Glucose 409 H* 360 H* 337 H* (70-99) mg/dl Calcium (8.5-10.1) mg/dl Magnesium (1.7-2.4) mg/dl Total Bilirubin (0.2-1.0) mg/dl AST (13-39) U/L ALT (7-52) U/L Alkaline Phosphatase (34-104) U/L Troponin I High Sens (0-14) pg/ml Total Protein (6.0-8.3) gm/dl Albumin (3.4-5.0) gm/dl Globulin (2.5-4.0) gm/dl Albumin/Globulin Ratio (0.9-2) TSH (0.300-4.500) uIu/ml SARS-CoV-2, RNA, NAAT (NEGATIVE) 04/05/22 Range/Units 21:18 WBC (4.8-10.8) K/uL RBC (4.2-5.4) M/uL Hgb (12.0-16.0) g/dL Hct (37-47) % MCV (80-100) fL MCH (25-34) pg MCHC (32-36) g/dL RDW Std Deviation (36.4-46.3) fL RDW Coeff of Kelli (11.5-14.5) % Plt Count (130-400) K/uL MPV (7.4-10.4) fL Immature Gran % (Auto) % Neut % (Auto) % Lymph % (Auto) % [place] % (Auto) % Eos % (Auto) % Baso % (Auto) % Neut # (Auto) (1.4-6.5) K/uL Lymph # (Auto) (1.2-3.4) K/uL [place] # (Auto) (0.11-0.59) K/uL Eos # (Auto) (0-0.5) K/uL Baso # (Auto) (0-0.2) K/uL Immature Gran # (Auto) (0.00-0.02) K/uL VBG pH (7.36-7.41) VBG pCO2 (38-50) mmHg VBG pO2 mmHg VBG HCO3 mmol/L VBG O2 Saturation % VBG Base Excess mEq/L Sodium (136-145) mmol/L Potassium (3.5-5.1) mmol/L Chloride (98-107) mmol/L Carbon Dioxide (21-32) mmol/L Anion Gap (3-11) BUN (6-23) mg/dl Creatinine (0.6-1.2) mg/dl Est Cr Clr Drug Dosing ml/min Est GFR ( Amer) ml/min Est GFR (Non-Af Amer) ml/min BUN/Creatinine Ratio (10-20) Glucose (70-99(Fasting)) mg/dl POC Glucose 304 H* (70-99) mg/dl Calcium (8.5-10.1) mg/dl Magnesium (1.7-2.4) mg/dl Total Bilirubin (0.2-1.0) mg/dl AST (13-39) U/L ALT (7-52) U/L Alkaline Phosphatase (34-104) U/L Troponin I High Sens (0-14) pg/ml Total Protein (6.0-8.3) gm/dl Albumin (3.4-5.0) gm/dl Globulin (2.5-4.0) gm/dl Albumin/Globulin Ratio (0.9-2) TSH (0.300-4.500) uIu/ml SARS-CoV-2, RNA, NAAT (NEGATIVE) Administered Medications Discontinued Medications Sodium Chloride (Nss 1000ml) 1,000 mls @ 999 mls/hr IV .Q1H1M YEN Stop: 04/05/22 16:00 Last Infusion: 04/05/22 21:42 Dose: 0 mls/hr Documented by: [id number] Admin: 04/05/22 15:46 Dose: 999 mls/hr Documented by: [id number] Levetiracetam 500 mg/ Sodium (Chloride) 105 mls @ 440 mls/hr IV NOW STA Stop: 04/05/22 15:12 Last Infusion: 04/05/22 17:34 Dose: 0 mls/hr Documented by: [id number] Admin: 04/05/22 15:45 Dose: 440 mls/hr Documented by: [id number] Sodium Chloride (Nss 1000ml) 1,000 mls @ 999 mls/hr IV .Q1H1M ONE Stop: 04/05/22 16:56 Last Infusion: 04/05/22 21:42 Dose: 0 mls/hr Documented by: [id number] Admin: 04/05/22 15:33 Dose: 999 mls/hr Documented by: [id number] Sodium Chloride (Nss 1000ml) 500 mls @ 999 mls/hr IV .Q31M ONE Stop: 04/05/22 18:05 Last Infusion: 04/05/22 21:43 Dose: 0 mls/hr Documented by: [id number] Admin: 04/05/22 20:00 Dose: 999 mls/hr Documented by: [id number] Insulin Human Regular (Novolin-R Insulin Per Unit Charge) 10 units IV NOW STA Stop: 04/05/22 15:01 Last Admin: 04/05/22 15:45 Dose: 10 units Documented by: [id number] Cosigned by: [id number] Insulin Human Regular (Novolin-R Insulin Per Unit Charge) 10 units IV NOW STA Stop: 04/05/22 17:36 Last Admin: 04/05/22 17:45 Dose: 10 units Documented by: [id number] Cosigned by: [id number] Ketorolac Tromethamine (Ketorolac Tromethamine 15 Mg/Ml Vial) 15 mg IV NOW STA Stop: 04/05/22 15:51 Last Admin: 04/05/22 16:00 Dose: 15 mg Documented by: [id number] Ondansetron HCl (Ondansetron Inj 2 Mg/Ml 2 Ml Vial) 4 mg IV NOW STA Stop: 04/05/22 14:59 Last Admin: 04/05/22 15:45 Dose: 4 mg Documented by: [id number] Oxycodone HCl (Oxycodone Hcl Ir 5 Mg Tab (Immediate Release)) Confirm Adminis tered Dose 5 mg .ROUTE .STK-MED ONE Stop: 04/05/22 21:46 Last Admin: 04/05/22 21:46 Dose: 5 mg Documented by: [id number] Imaging Data Radiologist's Impression: Chest X-Ray 04/05/22 14:58 XR chest 1V portable HISTORY: 51 years-old Female weakness acute weakness COMPARISON: Chest radiograph 5 ,022 TECHNIQUE: Portable AP view of the chest FINDINGS: The cardiomediastinal and hilar silhouettes are unchanged. No pneumothorax, large pleural effusion or overt pulmonary edema. Minimal linear subsegmental atelectasis versus scarring of the lateral left lung base. Bones of the chest appear grossly intact. IMPRESSION: No acute process. ACT 112: Negative or not required by law. The above report was generated using voice recognition software. It may contain grammatical, syntax or spelling errors. Electronically signed by: Obdulio Arreola M.D. 04/05/2022 3:24 PM Lumbar Spine X-Ray 04/05/22 20:57 LUMBAR SPINE 3 VIEWS CLINICAL HISTORY: Fall. Low back pain. FINDINGS: 3 views of the lumbar spine are compared to study dated 10/30/[address] of the lumbar spine dated 02/20/2022. The skeletal structures are osteopenic. There is no radiographic evidence of fracture or malalignment. Vertebral body height and alignment are maintained. The transverse and spinous processes are intact. Anterior and lateral marginal osteophytes are seen throughout. There is minimal disc space narrowing in the mid to lower lumbar region. The visualized bony pelvis appears intact. Sclerotic change is noted in the sacroiliac joints. There is a nonobstructed abdominal bowel gas pattern. Moderate fecal retention is noted in the colon. There is atherosclerotic calcification of the abdominal aorta. Cholecystectomy clips are noted in the right upper quadrant. Surgical clips and an intrauterine device are seen in the pelvis IMPRESSION: No acute bony abnormality is seen involving the lumbar spine. ACT 112: Negative or not required by law. Electronically signed by: Kumar Caldwell M.D. 04/05/2022 9:16 PM Discharge Plan Visit Data Chief Complaint: Hyperglycemia ED Provider: Kumar Coronado Discharge Problem: Acute hyperglycemia, Acute dehydration, Seizure Patient Disposition: Admitted As Inpatient Condition: Fair Forms Stand Alone Forms: [facility] Prescriptions Prescriptions: No Action cyclobenzaprine 10 mg Tablet 10 mg PO BID PRN (Reason: Muscle Spasm) Qty: 0 RF: 0 albuterol sulfate [Ventolin HFA] 90 mcg/actuation Hfa Aerosol Inhaler 2 puff INHALATION Q4H PRN (Reason: Shortness Of Breath Or Wheezing) Qty: 0 RF: 0 montelukast [Singulair] 10 mg tablet 10 mg PO HS RF: 0 fluticasone propion-salmeterol [AirDuo RespiClick] 232-14 mcg/actuation aerosol powdr breath activated 2 inh inhalation BID PRN (Reason: Shortness Of Breath) RF: 0 insulin aspart U-100 [Novolog Flexpen U-100 Insulin] 100 unit/mL (3 mL) insulin pen 12 unit SC TID RF: 0 ibuprofen 800 mg tablet 800 mg PO TID PRN (Reason: Pain) RF: 0 promethazine 25 mg tablet 25 mg PO Q6H PRN (Reason: Nausea) RF: 0 aspirin 81 mg Tablet,Delayed Release (Dr/Ec) 81 mg PO QAM RF: 0 ipratropium-albuterol 0.5 mg-3 mg(2.5 mg base)/3 mL solution for nebulization 3 ml INHALATION QID PRN (Reason: Shortness Of Breath) RF: 0 cyclosporine [Restasis] 0.05 % Dropperette 2 drp OPHTHALMIC (EYE) Q12H RF: 0 oxycodone 5 MG 5 mg PO BID RF: 0 buspirone 5 mg Tablet 5 mg PO Q8H PRN (Reason: anxiety) Qty: 30 RF: 0 duloxetine 60 mg capsule,delayed release(DR/EC) 60 mg PO HS RF: 0 insulin glargine [Lantus Solostar U-100 Insulin] 100 unit/mL (3 mL) insulin pen 58 unit SUBCUT BID RF: 0 nystatin 100,000 unit/gram cream 1 applic topical TID Qty: 15 RF: 0 diclofenac sodium 1 % Gel 4 g TOPICAL QID PRN (Reason: Pain) RF: 0 albuterol sulfate 2.5 mg /3 mL (0.083 %) solution for nebulization 2.5 mg inhalation DAILY PRN (Reason: Shortness Of Breath) RF: 0 famotidine 40 mg tablet 40 mg PO BID RF: 0 pantoprazole 20 mg tablet,delayed release (DR/EC) 20 mg PO QAM RF: 0 lidocaine 5 % adhesive patch,medicated 1 patch transdermal DAILY PRN (Reason: Pain) RF: 0 nystatin 100,000 unit/gram powder 1 applic TOPICAL DAILY PRN (Reason: Rash) RF: 0 fluticasone propionate [Flonase Allergy Relief] 50 mcg/actuation spray,suspension 1 spray INTRANASAL DAILY PRN (Reason: Congestion) RF: 0 trazodone 100 mg tablet 100 mg PO HS RF: 0 polyethylene glycol 3350 [Miralax] 17 gram/dose Powder 34 g PO BID RF: 0 levetiracetam [Keppra] 500 mg tablet 500 mg PO BID Qty: 60 RF: 2 Trulicity 4.5 mg/0.5 mL pen injector 4.5 mg SUBCUT WK RF: 0 gabapentin 800 mg tablet 800 mg PO TID RF: 0 Referrals Referrals: Aneudy Pérez MD [Primary Care Provider] -
--- NOTE | 2022-04-05 15:25 | XRay Report ---
XR chest 1V portable HISTORY: 51 years-old Female weakness acute weakness COMPARISON: Chest radiograph 5 28,022 TECHNIQUE: Portable AP view of the chest FINDINGS: The cardiomediastinal and hilar silhouettes are unchanged. No pneumothorax, large pleural effusion or overt pulmonary edema. Minimal linear subsegmental atelectasis versus scarring of the lateral left l sam base. Bones of the chest appear grossly intact. IMPRESSION: No acute process. ACT 112: Negative or not required by law. The above report was generated using voice recognition software. It may contain grammatical, syntax o r spelling errors. Electronically signed by: Obdulio Arreola M.D. 04/05/2022 3:24 PM
[2022-04-05] MEDS ORDERED: KETOROLAC TROMETHAMINE 15 MG/ML VIAL IV STA (15:50)
[2022-04-05 15:51] LABS: Basophils # (auto) 0.01 K/uL (0-0.2); Basophils % (auto) 0.2 %; Eosinophils # (auto) 0.11 K/uL (0-0.5); Eosinophils % (auto) 1.8 %; Hematocrit (blood only) 38.8 % (37-47); Hemoglobin 13.7 g/dL (12.0-16.0); Lymphocytes # (auto) 1.58 K/uL (1.2-3.4); Lymphocytes % (auto) 26.1 %; Mean Corpuscular Hemoglobin 32.2 pg (25-34); Mean Corpuscular Hgb Conc 35.3 g/dL (32-36); Mean Corpuscular Volume 91.3 fL (80-100); Monocytes # (auto) 0.55 K/uL (0.11-0.59); Monocytes % (auto) 9.1 %; Neutrophils # (auto) 3.81 K/uL (1.4-6.5); Neutrophils % (auto) 62.8 %; Platelet Count 143 K/uL (130-400); RDW Coefficient of Variation 14.2 % (11.5-14.5); RDW Standard Deviation 46.8 fL (36.4-46.3); Red Blood Count 4.25 M/uL (4.2-5.4); White Blood Count 6.06 K/uL (4.8-10.8)
[2022-04-05 15:52] LABS: Base Excess VBG 4.7 mEq/L; HCO3 VBG 29 mmol/L; Oxygen Saturation VBG 64.3 %; PCO2 VBG 42 mmHg (38-50); PO2 VBG 37 mmHg; pH VBG 7.45 (7.36-7.41)
[2022-04-05] MEDS ORDERED: SODIUM CHLORIDE 0.9% 1000ML 1,000 ML IV ONE (15:56)
[2022-04-05 16:15] LABS: Troponin I High Sensitivity 3.4 pg/ml (0-14)
[2022-04-05 16:51] LABS: Albumin Globulin Ratio 1.1 (0.9-2); Albumin Level 3.6 gm/dl (3.4-5.0); BUN Creatinine Ratio 9.5 (10-20); Bilirubin,Total 0.5 mg/dl (0.2-1.0); Calcium 9.4 mg/dl (8.5-10.1); Creatinine Clr Calc Pharmacy 125.5 ml/min; Est GFR (African American) 118.7 ml/min; Est GFR (Non-African American) 102.4 ml/min; Globulin 3.4 gm/dl (2.5-4.0); Magnesium 1.7 mg/dl (1.7-2.4); Potassium 4.1 mmol/L (3.5-5.1)
[2022-04-05] MEDS ORDERED: SODIUM CHLORIDE 0.9% 1000ML 500 ML IV ONE (17:35)
--- NOTE | 2022-04-05 20:40 | History & Physical Report ---
Date of Service April 05, 2022 Assessment & Plan (1) Seizure-like activity: Plan: Mrs. Vick is a 51 yo female with PMHx of DM2 (last A1c 10.5 on 03/07), HTN, HLD, chronic pain, COPD (no chronic supplemental O2), anxiety, and compensated cirrhosis who presented to [facility] ED on 04/05 for seizure-like activity. Seizure-Like Activity Four seizures in last 48 hours, despite no missed doses of Keppra. Has been worked up with unremarkable CT/MRI brain and two EEGs without evidence of epileptiform activity; psychogenic non-epileptic seizures (PNES) is currently high on ddx. Only overt inciting factor of recent seizures, based on history, is increased stress in context of anniversary of mother's today. - Keppra level pending - s/p Keppra 500mg IV x1 in ED; will resume home Keppra 500mg PO BID - consulted Neurology - appreciate recommendations - seizure and fall precautions - continue home Buspar 5mg PO Q8H PRN Acute Symptomatic Hyperglycemia; T2DM A1c 10.5 on 03/07. BSGs have been higher over last two days (400s mostly) with associated polydipsia, polyuria, nausea, and abdominal pain. Unclear trigger although ?association with recent stress and seizure-like activity. No evidence of DKA/HHS on labs. - s/p 20 units Novolog in ED with improvement of BSG to low 300s - continue with Q2H BSG checks - start home Lantus 58 units BID, starting tonight - SSI - s/p 2.5L NSS boluses - continue with full maintenance IVFs - LR @140cc/hr (K was 4.1) - home PRN Compazine for nausea and PRN Zofran IV for breakthrough symptoms - trend BMP/Mg in AM Acute on Chronic Low Back Pain Acute exacerbation today after falling on her back after last seizure. On daily scheduled opiate regimen for chronic pain. - ordered XR lumbar spine to r/o fx - pending - continue home Gabapentin 800mg PO TID, PRN Ibuprofen, Oxycodone 5mg PO BID - continue home PRN Flexeril, Voltaren, and Lidocaine patch - PRN Dilaudid 0.25mg IV for breakthrough pain Chronic Partial Bowel Obstruction: likely due to chronic opiate use. Continue daily Miralax COPD: continue home inhalers and Singulair HTN/HLD: continue home baby Aspirin GERD: continue home Pepcid/Protonix Insomnia: continue home Trazodone FEN/GI: DM2 diet, LR @140cc/hr DVT Prophylaxis: Lovenox Code Status: full code Disposition: med/tele (2) Acute hyperglycemia: (3) Insulin dependent diabetes mellitus: (4) Chronic low back pain with left-sided sciatica: (5) Cervical radicular pain: (6) Partial small bowel obstruction: (7) Chronic obstructive pulmonary disease: (8) Liver cirrhosis: (9) Morbid obesity with BMI of 40.0-44.9, adult: (10) Hypertension: (11) Hyperlipidemia: History of Present Illness Chief Complaint: seizures Primary Care Provider: Aneudy Pérez MD Mrs. Vick is a 51 yo female with PMHx of DM2 (last A1c 10.5 on 03/07), HTN, HLD, chronic pain, COPD (no chronic supplemental O2), anxiety, and compensated cirrhosis who presented to [facility] ED on 04/05 for seizure-like activity. Patient reports that she had 4 episodes of her "typical seizures" over the last 48 hours. Reports that her boyfriend saw all of them - they all involved generalized shaking for 1-2 minutes, patients eyes were open and rolled back into her head, she had urinary incontinence, and she had post-ictal phase involving fatigue/somnolence for 30 minutes - 1 hour before return to baseline. Of note patient hit her "back" on the floor after her last seizure and reports generalized back pain since then without focal tenderness. Patient does report that she has had increase in chronic anxiety over last several days because the 6th anniversary of her mom's passing is today, but she is unaware of any other triggers for these breakthrough seizures. She previously did not have a seizure since her last admission at the end of February, and she is taking Keppra BID as prescribed without missing a dose. Denies recent illnesses. Denies fever/chills. Denies other new medications. Continuing to take daily pain medications as prescribed without any changes. Denies alcohol/smoking/drug use. Of note the patient was started on Keppra in 02/2022 when she was admitted for several days for seizure-like activity. With re-admission in late February for the same. Has had two EEGs without evidence for epileptiform activity. There has been question of psychogenic non-epilpetic seizures, and she was started on Buspar PRN at last admission to help with anxiety and thus with hopes of improving seizures. Was also continued on Keppra after last admission. Has not been able to follow up with [facility] as outpatient as of yet, but there were reportedly plans for 72-hour EEG (not done yet). Patient also reports that her sugars occasionally become uncontrolled, which has happened over the last ~1-2 days. Usually gets AM BSG of low 200s which goes up to low 300s at most. However over the last 1-2 days she has had BSGs mostly 400s-500s. Today BSG was 529 on two occasions (max). She denies changes to diet. Her PCP increased Lantus from 55 to 58 units BID on 03/31 and she has been taking this as prescribed. She has been extremely thirsty and has drunk "lots of water" over last day. However she has been nauseous with mild abdominal pain and thus has not eaten at all since yesterday evening. In the ED the patient was hemodynamically stable on room air. VBG without acidosis (pH 7.45, HCO3 29), Na 135 (corrected 139), BSG 472. Keppra level collected and pending. Patient received Novolog 10 units x2 in ED - BSG improved to 337. Also received NSS 2.5L total boluses. Received Zofran x1 for nausea with improvement. Received Toradol 15mg IV x1 for back pain and received Keppra 500mg IV x1 for previous seizure activity. Allergies Allergy/AdvReac Type Severity Reaction Status Date / Time acetaminophen AdvReac Severe LIVER Verified 04/05/22 19:19 COMPLICATIONS cephalexin AdvReac Severe Vomiting Verified 04/05/22 19:19 levofloxacin [From Levaquin] AdvReac Intermediate Vomiting Verified 04/05/22 19:19 Home Medications Medication Instructions Recorded Confirmed Type cyclobenzaprine 10 mg tablet 10 mg PO BID PRN #0 11/18/17 04/05/22 History albuterol sulfate 90 mcg/actuation 2 puff INHALATION Q4H PRN #0 02/10/18 04/05/22 History aerosol inhaler (Ventolin HFA) ibuprofen 800 mg tablet 800 mg PO TID PRN 10/24/19 04/05/22 History promethazine 25 mg tablet 25 mg PO Q6H PRN 10/24/19 04/05/22 History oxycodone-acetaminophen 10 mg-325 1 tab PO Q6H PRN #20 tab 02/11/20 Rx mg tablet (Percocet) fluticasone 232 mcg-salmeterol 14 2 inh INHALATION BID PRN 08/21/20 04/05/22 History mcg/actuation breath activated powdr (AirDuo RespiClick) montelukast 10 mg tablet 10 mg PO HS 09/01/20 04/05/22 History (Singulair) aspirin 81 mg tablet,delayed 81 mg PO QAM 10/28/20 04/05/22 History release ipratropium 0.5 mg-albuterol 3 mg 3 ml INHALATION QID PRN 02/12/21 04/05/22 History (2.5 mg base)/3 mL nebulization soln insulin aspart U-100 100 unit/mL 12 unit SC TID ml 02/23/21 04/05/22 History (3 mL) subcutaneous pen (Novolog Flexpen U-100 Insulin aspart) cyclosporine 0.05 % eye drops in a 2 drp OPHTHALMIC (EYE) Q12H 04/17/21 04/05/22 History dropperette (Restasis) diclofenac sodium 1 % topical gel 4 g TOPICAL QID PRN 07/20/21 04/05/22 History albuterol sulfate 2.5 mg INHALATION DAILY PRN 01/19/22 04/05/22 History famotidine 40 mg tablet 40 mg PO BID 01/19/22 04/05/22 History fluticasone propionate 50 1 spray INTRANASAL DAILY PRN 01/19/22 04/05/22 History mcg/actuation nasal spray,suspension (Flonase Allergy Relief) lidocaine 5 % topical patch 1 patch TRANSDERMAL DAILY PRN 01/19/22 04/05/22 History nystatin 100,000 unit/gram topical 1 applic TOPICAL DAILY PRN 01/19/22 04/05/22 History powder pantoprazole 20 mg tablet,delayed 20 mg PO QAM 01/19/22 04/05/22 History release polyethylene glycol 3350 17 34 g PO BID 01/29/22 04/05/22 History gram/dose oral powder (Miralax) trazodone 100 mg tablet 100 mg PO HS 01/29/22 04/05/22 History oxycodone 5 mg PO BID 03/06/22 04/05/22 History buspirone 5 mg tablet 5 mg PO Q8H PRN #30 tab 03/08/22 04/05/22 Rx duloxetine 60 mg capsule,delayed 60 mg PO HS 03/12/22 04/05/22 History release insulin glargine 100 unit/mL (3 58 unit SUBCUT BID 03/12/22 04/05/22 History mL) subcutaneous pen (Lantus Solostar U-100 Insulin) nystatin 100,000 unit/gram topical 1 applic TOPICAL TID #15 g 03/12/22 04/05/22 Rx cream dulaglutide 4.5 mg/0.5 mL 4.5 mg SUBCUT WK 04/05/22 04/05/22 History subcutaneous pen injector (Trulicity) gabapentin 800 mg tablet 800 mg PO TID 04/05/22 04/05/22 History levetiracetam 750 mg tablet 750 mg PO BID #60 tab 04/06/22 Rx (Keppra) Past Med/Surg History Medical History Abdominal pain Acute hyperglycemia Anxiety Brain cyst Chest pain Chronic low back pain with left-sided sciatica Chronic obstructive pulmonary disease Dental abscess Depression Elevated lactic acid level Emphysema of lung Encounter for pre-operative examination Hx of blood clots Hyperglycemia Hyperglycemia Hyperglycemia due to type 2 diabetes mellitus Hyperlipidemia Hypertension Hypokalemia Hypomagnesemia Hyponatremia Insulin dependent diabetes mellitus Lightheadedness Medication reaction Obesity Periapical abscess with facial involvement Pulmonary embolism Reports was anticoagulation x 60 days, not on chronic anticoagulation Syncope Thrombocytopenia Tinea corporis Tinea cruris Uncontrolled type 2 diabetes mellitus Surgical History History of laparoscopic cholecystectomy Hx of oral surgery (02/15/20) Acute right submandibular, submental space infection with floor of mouth infection caused by infected lower teeth. Dr. Rios 02/15/20 S/P dilation and curettage S/P laparoscopic hernia repair S/P laparoscopic procedure ovarian cyst surgery Family History Mother , 73 Heart disease Cancer Father Skin cancer Brother No problems noted. Sister No problems noted. Grandmother (Maternal) , 48 Heart disease T2DM (type 2 diabetes mellitus) Grandmother (Paternal) , 83 Heart disease Kidney disease Uncle T2DM (type 2 diabetes mellitus) Other Diabetes Obesity Denies family history of Ovarian cancer Breast cancer Colorectal cancer Uterine cancer Social History Smoking Status: Former smoker Tobacco Type: Cigarettes Cigarettes Per Day: 5; Second Hand Exposure: Yes; Hx Alcohol Use: No Hx Substance Use: No Preferred Language: Welsh Communication Ability: Effective Visual Impairment: No Limitations Hearing Ability: Normal Diesel Dinkey Operator Required: No Beliefs That Will Affect Care: None marital status: Current Living Situation: Family Current Living Situation Comment: Lives with son (14 yo) current occupational status: unemployed How many Children do You have: 1 Feels Safe at Home: Yes Assistive Devices: Cane, Crutches and Walker Review of Systems Review of Systems: All systems reviewed & are unremarkable except as noted in HPI & below Physical Exam Physical Exam: General: A&Ox3. NAD. Cooperative. Obese. HEENT: Atraumatic, normocephalic. Pulm: CTAB A&P. -wheezes, -rales, -rhonchi. Symmetrical chest rise. No increase work of breathing. No respiratory distress. Cardiac: RRR, -mrg. Radial pulses intact and symmetrical. No LE edema. Abdominal: soft, non-tender, non-distended, NA BS x 4 Skin: warm, dry, no rash Neurologic: normal touch/pain/proprioception, CN's II-XI intact bilaterally, moves all extremities and awake; no focal motor deficits Speech / Cognition: normal speech Results & Data Results & Data ([facility]) Vital Signs (Past 12 Hours) Vital Signs Temp Pulse Pulse Resp BP BP Pulse Ox 04/05/22 19:00 71 19 104/76 98 04/05/22 17:00 79 19 120/91 98 04/05/22 15:30 95 04/05/22 14:58 36.9 C 99 H 19 109/79 96 Code Status & VTE Plan VTE Prophylaxis Plan VTE Prophylaxis will be ordered: Yes Supervising Physician Co-Signing Physician Notes Attending addendum: I have physically seen this patient, have supervised the medical residents activities, and agree with the H&P unless as otherwise noted. Assessment and Plan: Seizure-like activity- Reportedly had 4 seizures in the past 48 hours No abnormalities on imaging Given Keppra 5 mg IV from the ED Continue Keppra 5 mg p.o. twice daily question physiologic stress of hyperglycemia as causal or secondary Consult neurology Hyperglycemia and diabetes mellitus type 2- Poorly controlled, with recent A1c on 03/07 of 10.5 Needs much more aggressive control In no signs of infection as trigger Resume home Lantus 58 units subcu twice daily, with sliding scale coverage Aggressive fluid rehydration as noted Serial BMP and magnesium levels every 4 hours x3 Chronic partial bowel obstruction/chronic opioid use Should consider GI opioid blockers if miralax insufficient Remaining orders and notations as noted Resident Activity Tracking Resident Involvement: Resident Care Provided Care Provided: Adult Hospital Medicine (1) Liver cirrhosis Hepatic cirrhosis type: unspecified hepatic cirrhosis (2) Hypertension Hypertension type: essential hypertension Qualified Code(s): I10 - Essential (primary) hypertension
[2022-04-05] MEDS ORDERED: ONDANSETRON INJ 2 MG/ML 2 ML VIAL IV PRN (21:09)
--- NOTE | 2022-04-05 21:17 | XRay Report ---
LUMBAR SPINE 3 VIEWS CLINICAL HISTORY: Fall. Low back pain. FINDINGS: 3 views of the lumbar spine are compared to study dated 10/30/[address] o f the lumbar spine dated 02/20/2022. The skeletal structures are osteopenic. There is no radiographic evidence of fracture or malalignment. Vertebral body height and alignment are maintained. The transve rse and spinous processes are intact. Anterior and lateral marginal osteophytes are seen throughout. There is minimal disc space narrowing in the mid to lower lumbar region. The visualized bony pelvis a ppears intact. Sclerotic change is noted in the sacroiliac joints. There is a nonobstructed abdominal bowel gas pattern. Moderate fecal retention is noted in the colon. There is atherosclerotic calcific ation of the abdominal aorta. Cholecystectomy clips are noted in the right upper quadrant. Surgical c lips and an intrauterine device are seen in the pelvis IMPRESSION: No acute bony abnormality is seen involving the lumbar spine. ACT 112: Negative or not required by law. Electronically signed by: Kumar Caldwell M.D. 04/05/2022 9:16 PM
[2022-04-05] MEDS ORDERED: oxyCODONE HCL IR 5 MG TAB (IMMEDIATE RELEASE) ONE (21:45)
[2022-04-05] MEDS ORDERED: DEXTROSE 50% 50 ML SYRINGE IV PRN (22:39)
[2022-04-05] MEDS ORDERED: GLUCAGON FOR INJ 1 MG VIAL SQ PRN (22:39)
[2022-04-05] MEDS ORDERED: MONTELUKAST SODIUM 10 MG TABLET PO SCH (22:39)
[2022-04-05] MEDS ORDERED: GLUCOSE 10 TABS/TUBE PO PRN (22:39)
[2022-04-05] MEDS ORDERED: CARBOHYDRATES FOR HYPOGLYCEMIA PO PRN (22:39)
[2022-04-05] MEDS ORDERED: ALBUTEROL HFA 8 GM INHALER INH PRN (22:39)
[2022-04-05] MEDS ORDERED: traZODone HCL 100 MG TAB PO SCH (22:39)
[2022-04-05] MEDS ORDERED: CYCLOBENZAPRINE HCL 10 MG TAB PO PRN (22:39)
[2022-04-05] MEDS ORDERED: GLUCOSE 40% GEL 15 GM TUBE PO PRN (22:39)
[2022-04-05] MEDS ORDERED: DULoxetine HCL 60 MG CAP PO SCH (22:39)
[2022-04-05] MEDS ORDERED: LIDOCAINE 5% 1 PATCH TD PRN (22:39)
[2022-04-05] MEDS ORDERED: PROMETHAZINE HCL 25 MG TAB PO PRN (22:39)
[2022-04-05] MEDS ORDERED: HYDROmorphone INJ 0.5 MG/0.5 ML SYR IV PRN (22:39)
[2022-04-05] MEDS ORDERED: IBUPROFEN 800 MG TAB PO PRN (22:39)
[2022-04-05] MEDS ORDERED: INSULIN GLARGINE 100 UNIT/ML VIAL SQ SCH (22:39)
[2022-04-05] MEDS ORDERED: busPIRone 5 MG TAB PO PRN (22:39)
[2022-04-05] MEDS: INSULIN ASPART PER UNIT SC SCH (23:19)
[2022-04-05] MEDS: oxyCODONE HCL IR 5 MG TAB (IMMEDIATE RELEASE) PO SCH (23:20)
[2022-04-05] MEDS: LACTATED RINGER'S 1,000 ML IV SCH (23:42)
[2022-04-06] MEDS: NYSTATIN CR 15 GM TUBE EXT SCH ×4 (00:08→12:17)
[2022-04-06] MEDS: ENOXAPARIN INJ 40 MG/0.4 ML SYR SQ SCH ×2 (00:08→08:02)
[2022-04-06] MEDS: levETIRAcetam 500 MG TAB PO SCH ×2 (00:09→08:00)
[2022-04-06] MEDS: GABAPENTIN 800 MG TAB PO SCH ×3 (00:09→12:17)
[2022-04-06] MEDS: POLYETHYLENE (MIRALAX) 17 GM PACK PO SCH ×2 (00:10→08:00)
[2022-04-06] MEDS: FAMOTIDINE 40 MG TABLET PO SCH ×2 (00:10→07:58)
[2022-04-06] MEDS: RESTASIS~ORDER AWAITING ACTION SCH ×3 (00:21→14:15)
[2022-04-06] MEDS: INSULIN ASPART PER UNIT SC SCH ×3 (01:41→12:14)
[2022-04-06] MEDS ORDERED: PHARMACY GLYCEMIC MGMT CONSULT PRN (02:50)
[2022-04-06] MEDS ORDERED: INSULIN ASPART PER UNIT SC ONE (04:15)
[2022-04-06] MEDS ORDERED: LACTATED RINGER'S 500 ML IV ONE (04:37)
[2022-04-06 06:17] LABS: Basophils # (auto) 0.01 K/uL (0-0.2); Basophils % (auto) 0.2 %; Eosinophils # (auto) 0.17 K/uL (0-0.5); Eosinophils % (auto) 2.7 %; Hemoglobin 11.8 g/dL (12.0-16.0); Immature Granulocytes # (auto) 0.02 K/uL (0.00-0.02); Immature Granulocytes % (auto) 0.3 %; Lymphocytes % (auto) 49.3 %; Mean Corpuscular Hemoglobin 31.4 pg (25-34); Mean Corpuscular Hgb Conc 33.7 g/dL (32-36); Mean Corpuscular Volume 93.1 fL (80-100); Mean Platelet Volume 11.3 fL (7.4-10.4); Monocytes # (auto) 0.46 K/uL (0.11-0.59); Monocytes % (auto) 7.3 %; Neutrophils # (auto) 2.53 K/uL (1.4-6.5); Neutrophils % (auto) 40.2 %; Platelet Count 139 K/uL (130-400); RDW Coefficient of Variation 14.5 % (11.5-14.5); RDW Standard Deviation 49.5 fL (36.4-46.3); Red Blood Count 3.76 M/uL (4.2-5.4); White Blood Count 6.29 K/uL (4.8-10.8)
[2022-04-06 07:10] LABS: BUN Creatinine Ratio 16.7 (10-20); Calcium 8.2 mg/dl (8.5-10.1); Creatinine Clr Calc Pharmacy 147.7 ml/min; Est GFR (African American) 124.9 ml/min; Est GFR (Non-African American) 107.7 ml/min; Magnesium 1.8 mg/dl (1.7-2.4); Potassium 3.2 mmol/L (3.5-5.1)
[2022-04-06] MEDS ORDERED: INSULIN GLARGINE 100 UNIT/ML VIAL SQ ONE (08:00)
--- NOTE | 2022-04-06 08:17 | Electrocardiogram Report ---
Test Reason : Blood Pressure : / mmHG Vent. Rate : 087 BPM Atrial Rate : 087 BPM P-R Int : 170 ms QRS Dur : 082 ms QT Int : 400 ms P-R-T Axes : 026 -16 005 degrees QTc Int : 481 ms Normal sinus rhythm Minimal voltage criteria for LVH, may be normal variant Poor R wave progression, consider anterior PA vs. lead placement vs. LVH Abnormal ECG When compared with ECG of 06-MAR-2022 15:36, No significant change was found Confirmed by Eduardo Rai ([id number]) on 04/06/2022 8:16:50 AM Referred By: Aneudy Pérez Confirmed By:Eduardo Rai
--- NOTE | 2022-04-06 08:29 | Neurology Consultation ---
Date of Consultation April 06, 2022 Assessment & Plan (1) Seizure disorder: 51-year-old female with a history of recurrent seizures beginning within the past 2 months, several presentations to [facility] for this issue with unremarkable evaluations including CT of the head, brain MRI, and 2 EEGs. Has had normal CT angiography of the head and neck previously as well, in November 2020. Patient does have a history of recurrent migraine, and episodes of focal weakness for which she was seen by Dr. Middleton in November 2020 possibly related to complicated migraine or cervical radiculopathy. I evaluated her last month during a hospitalization for relatively recent onset seizure like activity and she has been started on Keppra. Patient's recent episode of 4 seizures is very similar to her recent seizure-like episodes. He does endorse experiencing a severe sudden onset headache prior to these episodes. Otherwise, she denies any other specific aura or premonitory symptom. She does feel generally fatigued or wiped out but does not appear postictal. Further, she does not have focal weakness or obvious signs of a Derek's paralysis. Patient is currently neurologically intact. I do not think additional neuroimaging is necessary at this time. I would recommend increasing her dosage of Keppra to 750 mg twice daily. Patient will need additional outpatient evaluation for her seizures, including ambulatory EEG monitoring and likely referral to an epilepsy center for inpatient video EEG monitoring. It remains unclear if she has epilepsy or if she is experiencing provoked seizures, convulsive syncope, or other seizure-like episodes at this time. History of Present Illness Reason for Consultation: Seizure-like activity Requesting Physician: Darryl Calloway MD Attending Physician: Venkat Herrera MD History of Present Illness The patient is a 51-year-old female who is known to me from a previous admission to the [facility] this past February, I had evaluated her February 23, 2022 for further assessment of recurrent seizure-like episodes, but occurring in the context of poorly controlled diabetes mellitus, chronic pain, polypharmacy, stress/anxiety. Subsequent evaluations including MRI with seizure protocol and 2 EEGs were unremarkable. Given that she had presented to the [facility] several times with recurrent seizure-like activity, she had been started on Keppra for seizure prophylaxis, in spite of the negative evaluations. She reports compliance with Keppra. The patient presented to the emergency department yesterday after for recurrent seizure-like episodes, but occurring in the context of hyperglycemia, blood sugar reportedly over 500. The patient began experiencing seizure-like episodes over the past 2 months. She reports that the spells are typically preceded by an intense sudden onset global headache followed by collapse with associated generalized shaking. She has had incontinence. No tongue bite although edentulous. She denies experiencing any other aura or premonitory sign or symptom. Denies a history of seizure disorder or epilepsy in childhood or as a young adult. No family history of epilepsy in any first-degree relatives according to the patient. Initial assessment in the emergency department yesterday was fairly unrevealing, normal lab evaluation, normal ECG, negative chest x-ray. Patient was felt to be mildly dehydrated and she was treated with IV fluids. She was also given IV Toradol to address some back pain as well as additional IV Keppra to address her recent seizures. She has not had any additional specific neuroimaging although last CT of the head was completed March 06, last brain MRI completed February 23. No significant abnormalities were identified on these tests previously, however. This morning, patient complains of a low-grade headache and feeling generally wiped out or fatigued. No other specific neurologic signs or symptoms at this time. Allergies Allergy/AdvReac Type Severity Reaction Status Date / Time acetaminophen AdvReac Severe LIVER Verified 04/05/22 19:19 COMPLICATIONS cephalexin AdvReac Severe Vomiting Verified 04/05/22 19:19 levofloxacin [From Levaquin] AdvReac Intermediate Vomiting Verified 04/05/22 19:19 Home Medications Medication Instructions Recorded Confirmed Type cyclobenzaprine 10 mg tablet 10 mg PO BID PRN #0 11/18/17 04/05/22 History albuterol sulfate 90 mcg/actuation 2 puff INHALATION Q4H PRN #0 02/10/18 04/05/22 History aerosol inhaler (Ventolin HFA) ibuprofen 800 mg tablet 800 mg PO TID PRN 10/24/19 04/05/22 History promethazine 25 mg tablet 25 mg PO Q6H PRN 10/24/19 04/05/22 History oxycodone-acetaminophen 10 mg-325 1 tab PO Q6H PRN #20 tab 02/11/20 Rx mg tablet (Percocet) fluticasone 232 mcg-salmeterol 14 2 inh INHALATION BID PRN 08/21/20 04/05/22 History mcg/actuation breath activated powdr (AirDuo RespiClick) montelukast 10 mg tablet 10 mg PO HS 09/01/20 04/05/22 History (Singulair) aspirin 81 mg tablet,delayed 81 mg PO QAM 10/28/20 04/05/22 History release ipratropium 0.5 mg-albuterol 3 mg 3 ml INHALATION QID PRN 02/12/21 04/05/22 History (2.5 mg base)/3 mL nebulization soln insulin aspart U-100 100 unit/mL 12 unit SC TID ml 02/23/21 04/05/22 History (3 mL) subcutaneous pen (Novolog Flexpen U-100 Insulin aspart) cyclosporine 0.05 % eye drops in a 2 drp OPHTHALMIC (EYE) Q12H 04/17/21 04/05/22 History dropperette (Restasis) diclofenac sodium 1 % topical gel 4 g TOPICAL QID PRN 07/20/21 04/05/22 History albuterol sulfate 2.5 mg INHALATION DAILY PRN 01/19/22 04/05/22 History famotidine 40 mg tablet 40 mg PO BID 01/19/22 04/05/22 History fluticasone propionate 50 1 spray INTRANASAL DAILY PRN 01/19/22 04/05/22 History mcg/actuation nasal spray,suspension (Flonase Allergy Relief) lidocaine 5 % topical patch 1 patch TRANSDERMAL DAILY PRN 01/19/22 04/05/22 History nystatin 100,000 unit/gram topical 1 applic TOPICAL DAILY PRN 01/19/22 04/05/22 History powder pantoprazole 20 mg tablet,delayed 20 mg PO QAM 01/19/22 04/05/22 History release polyethylene glycol 3350 17 34 g PO BID 01/29/22 04/05/22 History gram/dose oral powder (Miralax) trazodone 100 mg tablet 100 mg PO HS 01/29/22 04/05/22 History levetiracetam 500 mg tablet 500 mg PO BID #60 tab 02/23/22 04/05/22 Rx (Keppra) oxycodone 5 mg PO BID 03/06/22 04/05/22 History buspirone 5 mg tablet 5 mg PO Q8H PRN #30 tab 03/08/22 04/05/22 Rx duloxetine 60 mg capsule,delayed 60 mg PO HS 03/12/22 04/05/22 History release insulin glargine 100 unit/mL (3 58 unit SUBCUT BID 03/12/22 04/05/22 History mL) subcutaneous pen (Lantus Solostar U-100 Insulin) nystatin 100,000 unit/gram topical 1 applic TOPICAL TID #15 g 03/12/22 04/05/22 Rx cream dulaglutide 4.5 mg/0.5 mL 4.5 mg SUBCUT WK 04/05/22 04/05/22 History subcutaneous pen injector (Trulicity) gabapentin 800 mg tablet 800 mg PO TID 04/05/22 04/05/22 History Patient History Medical History Abdominal pain Acute hyperglycemia Anxiety Brain cyst Chest pain Chronic low back pain with left-sided sciatica Chronic obstructive pulmonary disease Dental abscess Depression Elevated lactic acid level Emphysema of lung Encounter for pre-operative examination Hx of blood clots Hyperglycemia Hyperglycemia Hyperglycemia due to type 2 diabetes mellitus Hyperlipidemia Hypertension Hypokalemia Hypomagnesemia Hyponatremia Insulin dependent diabetes mellitus Lightheadedness Medication reaction Obesity Periapical abscess with facial involvement Pulmonary embolism Reports was anticoagulation x 60 days, not on chronic anticoagulation Syncope Thrombocytopenia Tinea corporis Tinea cruris Uncontrolled type 2 diabetes mellitus Surgical History History of laparoscopic cholecystectomy Hx of oral surgery (02/15/20) Acute right submandibular, submental space infection with floor of mouth infection caused by infected lower teeth. Dr. Rios 02/15/20 S/P dilation and curettage S/P laparoscopic hernia repair S/P laparoscopic procedure ovarian cyst surgery Family History Mother , 73 Heart disease Cancer Father Skin cancer Brother No problems noted. Sister No problems noted. Grandmother (Maternal) , 48 Heart disease T2DM (type 2 diabetes mellitus) Grandmother (Paternal) , 83 Heart disease Kidney disease Uncle T2DM (type 2 diabetes mellitus) Other Diabetes Obesity Denies family history of Ovarian cancer Breast cancer Colorectal cancer Uterine cancer Social History Smoking Status: Former smoker Tobacco Type: Cigarettes Cigarettes Per Day: 5; Second Hand Exposure: Yes; Hx Alcohol Use: No Hx Substance Use: No Preferred Language: Slovenian Communication Ability: Effective Visual Impairment: No Limitations Hearing Ability: Normal Airborne Sensor Specialist Required: No Beliefs That Will Affect Care: None marital status: Current Living Situation: Family Current Living Situation Comment: Lives with son (14 yo) current occupational status: unemployed How many Children do You have: 1 Other Information That Helps Us Care for You: No Feels Safe at Home: Yes Safety Concerns: Feels Safe At This Time Assistive Devices: Cane and Walker Review of Systems Constitutional: + fatigue; no fever and no chills Eyes: no blind spots and no diplopia Ear, Nose, Mouth, Throat: no ear pain and no hearing loss Respiratory: no cough and no dyspnea Cardiovascular: no chest pain and no palpitations Gastrointestinal: no constipation and no diarrhea/loose stools Genitourinary: no dysuria Musculoskeletal: + back pain; no myalgia Integumentary: no rash and no lesions Neurologic: as per Subjective / HPI and + paresthesia (feet, chronic) Psychiatric: no behavioral changes, no depression, no abnormal sleep pattern and no anxiety Hematologic / Lymphatic: no easy bruising and no lymphadenopathy Exam (Neuro) Constitutional: well developed and well nourished; no acute distress Eyes: normal visual pond by confrontation, PERRL, normal accommodation and EOM intact bilaterally; no fundoscopic abnormality, no nystagmus and no papilledema Cardiovascular: Vessels: normal carotid upstroke; no carotid bruit Neurologic: Oriented to:: Person, Place and Time Memory: Short Term Intact and Remote Intact Attention: Span Intact and Concentration Intact Language: Naming Objects and Repeating Phrases Speech Fluency: negative Dysarthria Speech Aphasia: negative Aphasia Fund of Knowledge: Current Events, Past History and Vocabulary Cranial Nerves: Normal II (Visual pond full to confrontation, visual acuity normal), III, IV, (Pupils equal round reactive to light and accommodation, eye movements normal), V (Facial sensation intact), VII (There is no facial droop or weakness), VIII (Hearing intact), IX, X (Palate elevates to midline), XI (Shoulder shrug intact) and XII (Tongue protrudes to midline) Motor Strength: Normal Lower Extremities and Normal Upper Extremities; negative Pronator Drift Motor Tone: Normal Lower Extremities and Normal Upper Extremities Muscle Bulk/Involuntary Movements: No Involuntary Movements; negative Muscle Atrophy Sensation: Light Touch Intact and Proprioception Intact; negative Pain/Temperature Intact or Vibration Intact Coordination: Normal; negative Limited Balance, Dysdiadochokinesia, Finger-Nose Abnormal or Heel-Prieto Abnormal Deep Tendon Reflexes: Rt Triceps: 1+, Lt Triceps: 1+, Rt Biceps: 1+, Lt Biceps: 1+, Rt Brachioradialis: 1+, Lt Brachioradialis: 1+, Rt Patellar: 1+, Lt Patellar: 1+, Rt Ankle: 1+ and Lt Ankle: 1+ Special Tests: negative Babinski Present Details: Gait not tested in the context of patient's current neurological status. Results & Data ([facility]) Vital Signs (Past 12 Hours) Vital Signs Temp Pulse Pulse Pulse Resp BP BP 04/06/22 07:21 62 04/06/22 05:58 36.3 C L 63 20 99/62 L 04/06/22 04:14 36.4 C L 54 L 18 95/61 L 04/05/22 23:25 36.7 C 74 20 112/76 04/05/22 23:00 67 04/05/22 22:45 36.7 C 74 18 112/76 04/05/22 21:00 69 17 105/70 Pulse Ox 04/06/22 07:21 04/06/22 05:58 96 04/06/22 04:14 97 04/05/22 23:25 93 04/05/22 23:00 04/05/22 22:45 93 04/05/22 21:00 95 Laboratory Results WBC 6.29, hemoglobin 11.8, hematocrit 35.0, MCV 93.1, platelet count 139, sodium 139, potassium 3.2, BUN 9, creatinine 0.54, glucose 160, calcium 8.2, magnesium 1.8, AST 17, ALT 15, TSH 1.435, Keppra level pending, SARS-CoV-2 RNA negative Diagnostic Findings Lumbar spine x-rays completed yesterday negative for acute bony abnormality, no fracture or malalignment. Vertebral body height well-maintained. Anterior and lateral marginal osteophytes seen throughout. Minimal disc base narrowing in the mid to lower lumbar region. Sclerotic changes noted in the sacroiliac joints. Chest x-ray negative for acute process. CT of the brain completed March 06, 2022 in the context of seizure was negative for hemorrhage or acute process. MRI of the brain completed in the context of severe headache and acute seizure February 23, 2022 was negative for acute process. Normal brain parenchyma. No evidence of mesial temporal sclerosis. No areas of focal restricted diffusion. No hydrocephalus. No Chiari malformation. No abnormal postcontrast enhancement. I independently reviewed the images and reviewed the radiologist report. A CT angiogram of the brain completed in November 2020 for further assessment of headache and left-sided weakness at that time was negative for hemorrhage, mass- effect, or evidence of acute territorial ischemia. There was mild narrowing of the right cavernous carotid artery, unchanged from prior study done in October 2020. No significant abnormalities. A CT angiogram of the neck completed at that time was limited due to motion artifact although there was no definite stenosis, occlusion, or dissection identified within the carotid or vertebral arteries. A brain MRI at that time was negative for acute process. An EEG completed March 07, 2022, interpreted by Dr. Middleton, revealed a normal background alpha rhythm. No epileptiform abnormalities. Normal study. An EEG completed February 23, 2022, interpreted by myself, revealed moderate background theta slowing suggestive of a mild to moderate nonspecific encephalopathy. No epileptiform abnormalities identified. An echocardiogram completed February 23, 2022 was negative for significant valvular heart disease. There was normal left ventricular systolic function. There was grade 1 diastolic dysfunction, abnormal relaxation pattern. Left atrial size normal. Coding Level of Care Code 15506 Initial In Care Lvl 3 Diagnoses Seizure disorder G40.909
[2022-04-06] MEDS ORDERED: ASPIRIN 81 MG ECTAB PO SCH (09:00)
[2022-04-06] MEDS ORDERED: PANTOprazole 40 MG TAB PO SCH (09:00)
[2022-04-06] MEDS: oxyCODONE HCL IR 5 MG TAB (IMMEDIATE RELEASE) PO SCH (09:01)
[2022-04-06] MEDS: LACTATED RINGER'S 1,000 ML IV SCH (10:51)
--- NOTE | 2022-04-06 11:41 | Pharmacy Report ---
Pharmacy Glycemic Short Note 2 - Date of Service April 06, 2022 - Glycemic Short BSG Results (Last 24 hours): 04/05/22 04/05/22 04/05/22 15:30 15:32 16:28 Glucose 472 H* POC Glucose 466 H* 409 H* 04/05/22 04/05/22 04/05/22 17:28 18:15 21:18 Glucose POC Glucose 360 H* 337 H* 304 H* 04/05/22 04/06/22 04/06/22 22:39 00:29 02:44 Glucose POC Glucose 413 H* 394 H* 342 H* 04/06/22 04/06/22 04/06/22 03:56 05:18 06:25 Glucose 160 H POC Glucose 277 H 108 H 04/06/22 04/06/22 07:38 11:33 Glucose POC Glucose 74 252 H OUTPATIENT ANTIDIABETIC REGIMEN: * Lantus 58 units SC BID * Novolog 12 units SC TIDM * Trulicity ASSESSMENT: * 51 yo F with T2DM admitted w seizure-like activity. Hx seizures on levetiracetam. Unclear etiology of seizure activity at this time although significant home stressors may be contributing. Unlikely to be due to hypoglycemia as patient reports hyperglycemia as an outpatient recently per H&P: "BSGs have been higher over last two days (400s mostly) with associated polydipsia, polyuria, nausea, and abdominal pain. Unclear trigger" * After significant insulin yesterday, BSG's trended down to 74 mg/dL this AM. * Previous visit reviewed - * utilized slightly lower basal dose and AM fasting BSG's were trending down * Post-prandial elevations noted, although loose carb ratio was used * Will lower dose now given previous trend and also near hypoglycemia this AM * Will tighten carb ratio compared to previous already in place. Despite this, significant jump from breakfast to lunch noted today. Will tighten further. PLAN FOR INPATIENT GLYCEMIC CONTROL: * Hold outpatient diabetes medications * Basal insulin * Lantus 30 units SQ x1 then 48-58 units SC BID ongoing * Bolus insulin * NovoLog per scale ACHS or Q6hrs while NPO * Goal Range: Low 110 mg/dL - High 140 mg/dL * Correction Factor: 15 mg/dL/unit * Nutritional / Prandial insulin per carb ratio of 1 unit per 4 grams CHO consumed
--- NOTE | 2022-04-06 14:52 | Discharge Summary ---
Date of Service April 06, 2022 Admission HPI Per Admitting Provider Mrs. Vick is a 51 yo female with PMHx of DM2 (last A1c 10.5 on 03/07), HTN, HLD, chronic pain, COPD (no chronic supplemental O2), anxiety, and compensated cirrhosis who presented to [facility] ED on 04/05 for seizure-like activity. Patient reports that she had 4 episodes of her "typical seizures" over the last 48 hours. Reports that her boyfriend saw all of them - they all involved generalized shaking for 1-2 minutes, patients eyes were open and rolled back into her head, she had urinary incontinence, and she had post-ictal phase involving fatigue/somnolence for 30 minutes - 1 hour before return to baseline. Of note patient hit her "back" on the floor after her last seizure and reports generalized back pain since then without focal tenderness. Patient does report that she has had increase in chronic anxiety over last several days because the 6th anniversary of her mom's passing is today, but she is unaware of any other triggers for these breakthrough seizures. She previously did not have a seizure since her last admission at the end of February, and she is taking Keppra BID as prescribed without missing a dose. Denies recent illnesses. Denies fever/chills. Denies other new medications. Continuing to take daily pain medications as prescribed without any changes. Denies alcohol/smoking/drug use. Of note the patient was started on Keppra in 02/2022 when she was admitted for several days for seizure-like activity. With re-admission in late February for the same. Has had two EEGs without evidence for epileptiform activity. There has been question of psychogenic non-epilpetic seizures, and she was started on Busp ar PRN at last admission to help with anxiety and thus with hopes of improving seizures. Was also continued on Keppra after last admission. Has not been able to follow up with [facility] as [place] as of yet, but there were reportedly plans for 72-hour EEG (not done yet). Patient also reports that her sugars occasionally become uncontrolled, which has happened over the last ~1-2 days. Usually gets AM BSG of low 200s which goes up to low 300s at most. However over the last 1-2 days she has had BSGs mostly 400s-500s. Today BSG was 529 on two occasions (max). She denies changes to diet. Her PCP increased Lantus from 55 to 58 units BID on 03/31 and she has been taking this as prescribed. She has been extremely thirsty and has drunk "lots of water" over last day. However she has been nauseous with mild abdominal pain and thus has not eaten at all since yesterday evening. In the ED the patient was hemodynamically stable on room air. VBG without acidosis (pH 7.45, HCO3 29), Na 135 (corrected 139), BSG 472. Keppra level collected and pending. Patient received Novolog 10 units x2 in ED - BSG improved to 337. Also received NSS 2.5L total boluses. Received Zofran x1 for nausea with improvement. Received Toradol 15mg IV x1 for back pain and received Keppra 500mg IV x1 for previous seizure activity. Principal Diagnosis Seizure-like activity Discharge Exam Constitutional WD/WN, vitals as above Eyes EOM intact bilaterally; no conjunctival abnormality ENMT external ear and nose normal, oropharynx normal Neck trachea midline, no thyromegaly normal visual inspection Respiratory normal respiratory effort, lungs clear to auscultation no respiratory distress Cardiovascular RRR, no murmur, no edema Gastrointestinal (Abdomen) Inspection/Auscultation: abdomen normal to inspection; abdomen not distended Musculoskeletal no cyanosis or clubbing, extremities motor strength 5/5 Skin no rashes, warm and dry Neurologic moves all extremities and awake Psychiatric Orientation: alert, oriented to person and cooperative Discharge Data Allergies Allergy/AdvReac Type Severity Reaction Status Date / Time acetaminophen AdvReac Severe LIVER Verified 04/05/22 19:19 COMPLICATIONS cephalexin AdvReac Severe Vomiting Verified 04/05/22 19:19 levofloxacin [From Levaquin] AdvReac Intermediate Vomiting Verified 04/05/22 19:19 Consultations 04/05/22 19:01 ED Decision to Admit Stat 04/05/22 20:23 Consult Neurology Routine Hospital Course (1) Seizure-like activity: Four seizures in last 48 hours, despite no missed doses of Keppra. Has been worked up with unremarkable CT/MRI brain and two EEGs without evidence of epileptiform activity; psychogenic non-epileptic seizures (PNES) is currently high on ddx. Only overt inciting factor of recent seizures, based on history, is increased stress in context of anniversary of mother's today. - Keppra level pending - S/p Keppra 500mg IV x1 in ED; will resume home Keppra 500mg PO BID - Consulted Neurology - appreciate recommendations -> Discharged on 750 mg PO BID per their instructions. - seizure and fall precautions - It was emphasized to the patient that we have maximized the work-up available at [facility]. She needs ambulatory EEG vs possibly a continuous EEG, neither of which we can do. Encouraged her to seek care at a dedicated epilepsy center. Given the limits of our abilities, I would not recommend further admissions at [facility] and instead advise transfer to a tertiary care center if she re-presents. (2) Acute hyperglycemia: A1c is 10.5% last month. Hyperglycemic on admission. - Sugars improved on home insulin regimen. - Encouraged good diabetic care and follow up. Total Time Total Time Spent Total Time Spent (In Minutes): 35 Discharge Plan Discharge Items Patient Disposition: Home - Home Health Services Reason For Visit: SEIZURE-LIKE ACTIVITY, HYPERGLYCEMIA Discharge Diagnosis: Seizure-like activity Condition on Discharge: Fair Activity: Resume your previous activity Non-emergency contact: Primary Care Provider and Neurologist Call non-emergency contact if: your symptoms worsen Follow-up/Referrals: Aneudy Pérez MD [Primary Care Provider] - 04/09/22 3:30 pm Diet: Regular Addtl Attending Provider Instructions: Ms. Vick, Mitchell were admitted to the hospital after having 4 episodes at home that were possible seizures. In the hospital, you had no further seizure episodes. Dr. Benitez saw you and feels that there is not additional testing that we can offer you. We have done CT scans, MRIs, and two EEGs without any abnormalities found. We encourage you to follow up with a dedicated Epilepsy Center that can provide ambulatory EEG to try to catch these episodes when they occur. In the meantime, Dr. Benitez has recommended increasing your Keppra to 750 mg twice a day. I have sent that script to your pharmacy. Pending Studies at Discharge: No Stand-Alone Forms: My [facility] [employer], Smoking Cessation Medications and DC Order Prescriptions: New levetiracetam [Keppra] 750 mg tablet 750 mg PO BID Qty: 60 RF: 0 Continued cyclobenzaprine 10 mg Tablet 10 mg PO BID PRN (Reason: Muscle Spasm) Qty: 0 RF: 0 albuterol sulfate [Ventolin HFA] 90 mcg/actuation Hfa Aerosol Inhaler 2 puff INHALATION Q4H PRN (Reason: Shortness Of Breath Or Wheezing) Qty: 0 RF: 0 montelukast [Singulair] 10 mg tablet 10 mg PO HS RF: 0 fluticasone propion-salmeterol [AirDuo RespiClick] 232-14 mcg/actuation aerosol powdr breath activated 2 inh inhalation BID PRN (Reason: Shortness Of Breath) RF: 0 insulin aspart U-100 [Novolog Flexpen U-100 Insulin] 100 unit/mL (3 mL) insulin pen 12 unit SC TID RF: 0 ibuprofen 800 mg tablet 800 mg PO TID PRN (Reason: Pain) RF: 0 promethazine 25 mg tablet 25 mg PO Q6H PRN (Reason: Nausea) RF: 0 aspirin 81 mg Tablet,Delayed Release (Dr/Ec) 81 mg PO QAM RF: 0 ipratropium-albuterol 0.5 mg-3 mg(2.5 mg base)/3 mL solution for nebulization 3 ml INHALATION QID PRN (Reason: Shortness Of Breath) RF: 0 cyclosporine [Restasis] 0.05 % Dropperette 2 drp OPHTHALMIC (EYE) Q12H RF: 0 oxycodone 5 MG 5 mg PO BID RF: 0 buspirone 5 mg Tablet 5 mg PO Q8H PRN (Reason: anxiety) Qty: 30 RF: 0 duloxetine 60 mg capsule,delayed release(DR/EC) 60 mg PO HS RF: 0 insulin glargine [Lantus Solostar U-100 Insulin] 100 unit/mL (3 mL) insulin pen 58 unit SUBCUT BID RF: 0 nystatin 100,000 unit/gram cream 1 applic topical TID Qty: 15 RF: 0 diclofenac sodium 1 % Gel 4 g TOPICAL QID PRN (Reason: Pain) RF: 0 albuterol sulfate 2.5 mg /3 mL (0.083 %) solution for nebulization 2.5 mg inhalation DAILY PRN (Reason: Shortness Of Breath) RF: 0 famotidine 40 mg tablet 40 mg PO BID RF: 0 pantoprazole 20 mg tablet,delayed release (DR/EC) 20 mg PO QAM RF: 0 lidocaine 5 % adhesive patch,medicated 1 patch transdermal DAILY PRN (Reason: Pain) RF: 0 nystatin 100,000 unit/gram powder 1 applic TOPICAL DAILY PRN (Reason: Rash) RF: 0 fluticasone propionate [Flonase Allergy Relief] 50 mcg/actuation spray,suspension 1 spray INTRANASAL DAILY PRN (Reason: Congestion) RF: 0 trazodone 100 mg tablet 100 mg PO HS RF: 0 polyethylene glycol 3350 [Miralax] 17 gram/dose Powder 34 g PO BID RF: 0 Trulicity 4.5 mg/0.5 mL pen injector 4.5 mg SUBCUT WK RF: 0 gabapentin 800 mg tablet 800 mg PO TID RF: 0 Discontinued levetiracetam [Keppra] 500 mg tablet 500 mg PO BID Qty: 60 RF: 2 Discharge Orders: Discharge Order (Routine); Ordered 04/06/22 Ordered By: Venkat Herrera Admission Data Admit Date/Time: 04/05/22 20:23 Attending Provider: Venkat Herrera Admit Provider: Darryl Calloway Primary Care Provider: Aneudy Pérez Other Providers: Christopher Benitez ; Venkat Herrera Coding Level of Care Code D/C DAY MANAGEMENT >30 MINS Diagnoses Seizure-like activity R56.9 Acute hyperglycemia R73.9
[2022-04-06] MEDS ORDERED: INSULIN GLARGINE 100 UNIT/ML VIAL SQ SCH (21:00)
--- NOTE | 2022-04-06 22:26 | Billing Data ---
Date of Service April 06, 2022 Coding Level of Care Code 17303 Initial Inpt Care Lvl 3
== END 2022-04-06 15:34 | disposition home health service (06) ==
LOC: ED 14:47 → INTOOBSV 20:23 → SUATTDRO 20:23 → 2N 20:23

== ENCOUNTER 2022-08-13 12:30 | Observation (INO) ==
[2022-08-13] MEDS ORDERED: SODIUM CHLORIDE 0.9% 1000ML 1,000 ML IV ONE ×2 (13:55→16:31)
[2022-08-13] MEDS ORDERED: ONDANSETRON INJ 2 MG/ML 2 ML VIAL IV STA (13:55)
[2022-08-13] MEDS ORDERED: PROMETHAZINE 6.25 MG/50.25 ML BAG IV STA (13:55)
[2022-08-13] MEDS ORDERED: KETOROLAC TROMETHAMINE 15 MG/ML VIAL IV STA (13:55)
[2022-08-13 14:08] LABS: Basophils # (auto) 0.03 K/uL (0-0.2); Basophils % (auto) 0.4 %; Eosinophils % (auto) 1.2 %; Hematocrit (blood only) 42.1 % (34.1-44.9); Hemoglobin 14.8 g/dl (12.0-16.0); Immature Granulocytes # (auto) 0.09 K/uL (0.00-0.02); Immature Granulocytes % (auto) 1.1 %; Lymphocytes # (auto) 2.25 K/uL (1.2-3.4); Lymphocytes % (auto) 27.1 %; Mean Corpuscular Hemoglobin 32.7 pg (25.0-34.0); Mean Corpuscular Hgb Conc 35.2 g/dL (32.0-36.0); Mean Corpuscular Volume 92.9 fL (80.0-100.0); Mean Platelet Volume 12.3 fL (9.4-12.3); Monocytes # (auto) 0.62 K/uL (0.24-0.82); Monocytes % (auto) 7.5 %; Neutrophils % (auto) 62.7 %; Platelet Count 118 K/uL (130-400); RDW Coefficient of Variation 13.2 % (11.5-14.5); RDW Standard Deviation 45.1 fL (36.4-46.3); Red Blood Count 4.53 M/uL (3.93-5.22); White Blood Count 8.29 K/ul (4.8-10.8)
[2022-08-13] MEDS ORDERED: NovoLIN-R INSULIN PER UNIT CHARGE IV STA ×2 (14:17→16:06)
--- NOTE | 2022-08-13 14:34 | XRay Report ---
XR chest 1V portable HISTORY: fever COMPARISON: Chest 04/05/2022. FINDINGS: No pneumothorax. No pleural effusions. Slight elevation of the left hemidiaphragm and left basilar subsegmental atelectasis remains unchanged. Otherwise, the lungs are clear. The heart is norm al in size. There are low lung volumes. IMPRESSION: No significant change compared to the prior study. No acute process. ACT 112: Negative or not required by law. Electronically signed by: Luis F Mixon M.D. 08/13/2022 2:33 PM
[2022-08-13 14:36] LABS: Albumin Globulin Ratio 1.2 (0.9-2); BUN Creatinine Ratio 13.8 (10-20); Bilirubin,Total 0.6 mg/dl (0.2-1.0); Calcium 10.7 mg/dl (8.5-10.1); Creatinine Clr Calc Pharmacy 118.4 ml/min; Est GFR (African American) 117.5 ml/min; Est GFR (Non-African American) 101.4 ml/min; Globulin 3.4 gm/dl (2.5-4.0); Potassium 4.1 mmol/L (3.5-5.1); Total Protein 7.4 gm/dl (6.0-8.3)
--- NOTE | 2022-08-13 14:58 | Emergency Department Note ---
Impression & Plan Dizziness, Acute hyperglycemia, Acute hyponatremia, Failure of outpatient treatment ED Provider Note NAME: MARCIO FERNANDEZ AGE: 51 SEX: F : 1970 ARRIVES VIA: Ambulance INFORMANT: [Patient] ED PROVIDER(S): [Kumar Coronado MD] CHIEF COMPLAINT: Hyperglycemia HISTORY OF PRESENT ILLNESS: The patient is a 51-year-old female who presents with a sugar in the 500s. She was seen 2 days ago for the same thing. When she left the ED, her sugar was in the 200s. The patient states that her sugar has been high really since yesterday, she feels dizzy. No fever, no cough or congestion. No abdominal pain. She has some nausea but this is a chronic issue for her. She has not noticed any rash. She states that she is taking her medications as prescribed. The patient spoke with her doctors office today, she was referred to the ED. She presents by ambulance. Of note, at bedside, patient has a very large bag of miniature Nicanor's peanut butter cups. Of note, looking at our records on the EMR, the patient was here in the ED on the , 02 August, 11 August--all the visits were for hyperglycemia. REVIEW OF SYSTEMS: See HPI for pertinent positives and negatives. A total of ten systems were reviewed and were otherwise negative. PMHx/PSHx: See Below SOCIAL HISTORY: See Below. PHYSICAL EXAM: GENERAL: Patient is in no acute distress. HEENT: No acute trauma, normocephalic atraumatic, mucous membranes moist, no nasal congestion, no scleral icterus. NECK: No stridor, no adenopathy, no meningismus, trachea is midline. LUNGS: Clear to auscultation bilaterally, no wheeze, no rhonchi, breath sounds equal. HEART: Without murmurs gallops or rubs, regular rate and rhythm. ABDOMEN: Soft, mildly diffusely tender, no peritonitis. EXTREMITIES: No cyanosis or edema, full range of motion of all the joints without pain or difficulty, no signs for acute trauma. NEUROLOGIC: Oriented x 3, no acute motor or sensory deficits, no focal weakness. SKIN: No rash, no jaundice, no diaphoresis. DIFFERENTIAL DIAGNOSIS: Medication noncompliance, diet noncompliance, hyperglycemia, DKA, dehydration, electrolyte imbalance, infection, UTI, bacteremia, among others. EMERGENCY DEPARTMENT COURSE/PROCEDURES: ECG: Indication was hyperglycemia and dizziness. The ECG shows a normal sinus rhythm with a rate of 96. 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 No ST elevation, no PVCs. The QTc is 490 Continuous Cardiac Monitoring: An order was placed for continuous cardiac mo nitoring. The monitor shows a rate of 85 with normal sinus rhythm. MEDICAL DECISION MAKING: There is no leukocytosis or concerning anemia. Platelet count is somewhat low at 118. Sodium was low at 134, no renal failure. Glucose was high at over 500. Lactic acid level was elevated, this elevation could be consistent with dehydration, infection or possibly just the hyperglycemia itself. No worrisome liver enzyme elevation. The patient appeared to be in a euthyroid state. ECG showed a normal sinus rhythm, no ischemia. Cardiac enzyme testing x1 is not consistent with acute cardiac injury. Urinalysis did not show findings of infection. Anaplasmosis and Babesia smears were negative. Lyme disease testing was negative. COVID, influenza and RSV test were negative. Chest x-ray was clear, there was no pneumonia. On exam, patient was not toxic. She had a very mild temperature elevation. The patient was given IV saline, 1 L. A second liter of IV saline was ordered. She received IV Zofran for nausea. She was given IV Phenergan for nausea. She received IV Toradol for pain, she received IV insulin, a second dose of IV insulin was given. This is the patient's fourth visit in just several weeks. All the visits have been for hyperglycemia. She is failing outpatient treatment. I do think hospitalization is warranted today. I have spoken with the patient and case management. The on-call hospitalist was consulted. Past Med/Surg History Medical History Abdominal pain Acute hyperglycemia Anxiety Brain cyst Chest pain Chronic low back pain with left-sided sciatica Chronic obstructive pulmonary disease Dental abscess Depression Elevated lactic acid level Emphysema of lung Encounter for pre-operative examination Hx of blood clots Hyperglycemia Hyperglycemia Hyperglycemia due to type 2 diabetes mellitus Hyperlipidemia Hypertension Hypokalemia Hypomagnesemia Hyponatremia Insulin dependent diabetes mellitus Lightheadedness Medication reaction Obesity Periapical abscess with facial involvement Pulmonary embolism Reports was anticoagulation x 60 days, not on chronic anticoagulation Syncope Thrombocytopenia Tinea corporis Tinea cruris Uncontrolled type 2 diabetes mellitus Surgical History History of laparoscopic cholecystectomy Hx of oral surgery (02/15/20) Acute right submandibular, submental space infection with floor of mouth infection caused by infected lower teeth. Dr. Rios 02/15/20 S/P dilation and curettage S/P laparoscopic hernia repair S/P laparoscopic procedure ovarian cyst surgery Family History (Updated 08/13/22 @ 18:18 by Dallas Lyman MD) Mother , 73 Heart disease Cancer small cell ca lung caused at 73 Father Skin cancer Brother No problems noted. Sister No problems noted. Grandmother (Maternal) , 48 Heart disease T2DM (type 2 diabetes mellitus) Grandmother (Paternal) , 83 Heart disease Kidney disease Uncle T2DM (type 2 diabetes mellitus) Other Diabetes Obesity Denies family history of Ovarian cancer Breast cancer Colorectal cancer Uterine cancer Social History Smoking Status: Former smoker Tobacco Type: Cigarettes Cigarettes Per Day: 5; Number of Years Since Quit: 4; Second Hand Exposure: Yes; Hx Alcohol Use: No Hx Substance Use: No Preferred Language: Yoruba Communication Ability: Effective Visual Impairment: No Limitations Hearing Ability: Normal Barrel Burner Required: No Beliefs That Will Affect Care: None marital status: Current Living Situation: Family Current Living Situation Comment: Lives with son (15yo) current occupational status: unemployed 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 How many Children do You have: 1 Feels Safe at Home: Yes Safety Concerns: Feels Safe At This Time Assistive Devices: Cane, Crutches and Walker Allergies Allergies Allergy/AdvReac Type Severity Reaction Status Date / Time acetaminophen AdvReac Severe LIVER Verified 08/11/22 19:04 COMPLICATIONS cephalexin AdvReac Severe Vomiting Verified 08/11/22 19:04 levofloxacin [From Levaquin] AdvReac Intermediate Vomiting Verified 08/11/22 19:04 Home Meds Home Medications Medication Instructions Recorded Confirmed cyclobenzaprine 10 mg tablet 10 mg PO BID PRN Muscle Spasm ##0 11/18/17 08/13/22 albuterol sulfate 90 mcg/actuation 2 puff inhalation Q4H PRN 02/10/18 08/13/22 aerosol inhaler (Ventolin HFA) Shortness Of Breath Or Wheezing ##0 ibuprofen 800 mg tablet 800 mg PO TID PRN Pain 10/24/19 08/13/22 promethazine 25 mg tablet 25 mg PO Q6H PRN Nausea 10/24/19 08/13/22 fluticasone 232 mcg-salmeterol 14 2 inh inhalation BID PRN Shortness 08/21/20 08/13/22 mcg/actuation breath activated Of Breath powdr (AirDuo RespiClick) montelukast 10 mg tablet 10 mg PO HS 09/01/20 08/13/22 (Singulair) aspirin 81 mg tablet,delayed 81 mg PO QAM 10/28/20 08/13/22 release ipratropium 0.5 mg-albuterol 3 mg 3 ml inhalation QID PRN Shortness 02/12/21 08/13/22 (2.5 mg base)/3 mL nebulization Of Breath soln insulin aspart U-100 100 unit/mL 0 sliding scale dose SC TID 02/23/21 08/13/22 (3 mL) subcutaneous pen (Novolog Flexpen U-100 Insulin aspart) cyclosporine 0.05 % eye drops in a 2 drp ophthalmic (eye) Q12H 04/17/21 08/13/22 dropperette (Restasis) diclofenac sodium 1 % topical gel 4 g topical QID PRN Pain 07/20/21 08/13/22 albuterol sulfate 2.5 mg/3 mL 2.5 mg inhalation DAILY PRN 01/19/22 08/13/22 (0.083 %) solution for nebulization Shortness Of Breath famotidine 40 mg tablet 40 mg PO BID 01/19/22 08/13/22 fluticasone propionate 50 1 spray intranasal DAILY PRN 01/19/22 08/11/22 mcg/actuation nasal Congestion spray,suspension (Flonase Allergy Relief) lidocaine 5 % topical patch 1 patch transdermal DAILY PRN Pain 01/19/22 08/13/22 pantoprazole 20 mg tablet,delayed 20 mg PO QAM 01/19/22 08/13/22 release polyethylene glycol 3350 17 17 g PO BID 01/29/22 08/13/22 gram/dose oral powder (Miralax) trazodone 100 mg tablet 100 mg PO HS 01/29/22 08/13/22 duloxetine 60 mg capsule,delayed 60 mg PO HS 03/12/22 08/13/22 release insulin glargine 100 unit/mL (3 48 unit subcut BID 03/12/22 08/13/22 mL) subcutaneous pen (Lantus Solostar U-100 Insulin) dulaglutide 4.5 mg/0.5 mL 4.5 mg subcut WK 04/05/22 08/13/22 subcutaneous pen injector (Trulicity) gabapentin 800 mg tablet 800 mg PO TID 04/05/22 08/13/22 buspirone 5 mg tablet 5 mg PO QID PRN anxiety 07/30/22 08/13/22 nystatin 100,000 unit/gram topical 1 applic topical TID PRN NEEDED 07/30/22 08/13/22 cream oxycodone 5 mg tablet 5 mg PO BID 07/30/22 08/13/22 Previous Rx's Medication Instructions Recorded levetiracetam 750 mg tablet 750 mg PO BID #60 tabs 04/06/22 (Keppra) ondansetron 4 mg disintegrating 4 mg PO Q6H PRN nausea and 08/11/22 tablet vomiting #12 tabs Results & Data (ED) Vital Signs Vital Signs - 24 hr 08/13/22 12:30 08/13/22 14:38 08/13/22 12:49 Temperature 37.9 C H Temperature Source Oral Pulse Rate 95 H 88 Pulse Rate [Apical] 85 Pulse Rate from SpO2 Sensor 89 Pulse Rhythm Regular Pulse Strength Normal Respiratory Rate 18 18 14 Respiratory Effort / Characteristics Non-Labored Non-Labored Respiratory Depth Normal Normal Respiratory Pattern Regular Regular Blood Pressure 130/78 Blood Pressure [Left Arm] 129/78 Blood Pressure Mean 95 Blood Pressure Mean [Left Arm] 95 Blood Pressure Position Lying Pulse Oximetry 99 98 100 Oxygen Delivery Method Room Air Room Air Sepsis Recent Fever Within 48 Hours Yes Sepsis New/Unexplained Change in Mental Status N/A Sepsis Action Taken by Nursing No Action Required 08/13/22 13:00 08/13/22 13:00 08/13/22 13:30 Temperature Temperature Source Pulse Rate 89 Pulse Rate [Apical] Pulse Rate from SpO2 Sensor 89 Pulse Rhythm Pulse Strength Respiratory Rate 19 Respiratory Effort / Characteristics Respiratory Depth Respiratory Pattern Blood Pressure 123/87 135/95 Blood Pressure [Left Arm] Blood Pressure Mean 99 108 Blood Pressure Mean [Left Arm] Blood Pressure Position Pulse Oximetry 98 Oxygen Delivery Method Sepsis Recent Fever Within 48 Hours Sepsis New/Unexplained Change in Mental Status Sepsis Action Taken by Nursing 08/13/22 13:30 08/13/22 14:00 08/13/22 14:30 Temperature Temperature Source Pulse Rate 100 H 98 H 89 Pulse Rate [Apical] Pulse Rate from SpO2 Sensor 97 H 93 H 87 Pulse Rhythm Pulse Strength Respiratory Rate 17 22 21 Respiratory Effort / Characteristics Respiratory Depth Respiratory Pattern Blood Pressure Blood Pressure [Left Arm] Blood Pressure Mean Blood Pressure Mean [Left Arm] Blood Pressure Position Pulse Oximetry 97 99 98 Oxygen Delivery Method Sepsis Recent Fever Within 48 Hours Sepsis New/Unexplained Change in Mental Status Sepsis Action Taken by Nursing 08/13/22 14:39 08/13/22 14:39 08/13/22 15:00 Temperature Temperature Source Pulse Rate 81 Pulse Rate [Apical] Pulse Rate from SpO2 Sensor 82 106 H Pulse Rhythm Pulse Strength Respiratory Rate 15 Respiratory Effort / Characteristics Respiratory Depth Respiratory Pattern Blood Pressure 129/78 Blood Pressure [Left Arm] Blood Pressure Mean 95 Blood Pressure Mean [Left Arm] Blood Pressure Position Pulse Oximetry 100 99 Oxygen Delivery Method Sepsis Recent Fever Within 48 Hours Sepsis New/Unexplained Change in Mental Status Sepsis Action Taken by Nursing 08/13/22 15:58 08/13/22 16:00 08/13/22 16:30 Temperature Temperature Source Pulse Rate Pulse Rate [Apical] Pulse Rate from SpO2 Sensor Pulse Rhythm Pulse Strength Respiratory Rate Respiratory Effort / Characteristics Respiratory Depth Respiratory Pattern Blood Pressure 140/78 139/82 108/60 Blood Pressure [Left Arm] Blood Pressure Mean 98 101 76 Blood Pressure Mean [Left Arm] Blood Pressure Position Pulse Oximetry Oxygen Delivery Method Sepsis Recent Fever Within 48 Hours Sepsis New/Unexplained Change in Mental Status Sepsis Action Taken by [facility] Medications Current Medication List: was personally reviewed by me Laboratory Data Attestation: I reviewed the patient's lab results. Result diagrams: 08/13/22 13:40 08/13/22 13:40 Lab Results 08/13/22 08/13/22 08/13/22 Range/Units 13:13 13:40 13:40 WBC 8.29 (4.8-10.8) K/ul RBC 4.53 (3.93-5.22) M/uL Hgb 14.8 (12.0-16.0) g/dl Hct 42.1 (34.1-44.9) % MCV 92.9 (80.0-100.0) fL MCH 32.7 (25.0-34.0) pg MCHC 35.2 (32.0-36.0) g/dL RDW Std Deviation 45.1 (36.4-46.3) fL RDW Coeff of Kelli 13.2 (11.5-14.5) % Plt Count 118 L (130-400) K/uL MPV 12.3 (9.4-12.3) fL Immature Gran % (Auto) 1.1 % Neut % (Auto) 62.7 % Lymph % (Auto) 27.1 % [place] % (Auto) 7.5 % Eos % (Auto) 1.2 % Baso % (Auto) 0.4 % Neut # (Auto) 5.20 (1.4-6.5) K/uL Lymph # (Auto) 2.25 (1.2-3.4) K/uL [place] # (Auto) 0.62 (0.24-0.82) K/uL Eos # (Auto) 0.10 (0-0.50) K/uL Baso # (Auto) 0.03 (0-0.2) K/uL Immature Gran # (Auto) 0.09 H (0.00-0.02) K/uL Sodium 134 L (136-145) mmol/L Potassium 4.1 (3.5-5.1) mmol/L Chloride 99 (98-107) mmol/L Carbon Dioxide 27 (21-32) mmol/L Anion Gap 8 (3-11) BUN 9 (6-23) mg/dl Creatinine 0.65 (0.6-1.2) mg/dl Est Cr Clr Drug Dosing 118.4 ml/min Est GFR ( Amer) 117.5 ml/min Est GFR (Non-Af Amer) 101.4 ml/min BUN/Creatinine Ratio 13.8 (10-20) Glucose 508 H* (70-99(Fasting)) mg/dl POC Glucose 486 H* (70-99) mg/dl Estimat Average Glucose mg/dl Hemoglobin A1c (4.5-5.6) % Lactate (0.4-2.0) mmol/L Calcium 10.7 H (8.5-10.1) mg/dl Magnesium (1.7-2.4) mg/dl Total Bilirubin 0.6 (0.2-1.0) mg/dl AST 13 (13-39) U/L ALT 14 (7-52) U/L Alkaline Phosphatase 122 H (34-104) U/L Troponin I High Sens (0-14) pg/ml Total Protein 7.4 (6.0-8.3) gm/dl Albumin 4.0 (3.4-5.0) gm/dl Globulin 3.4 (2.5-4.0) gm/dl Albumin/Globulin Ratio 1.2 (0.9-2) TSH (0.300-4.500) uIu/ml Anaplasma Smear See Comment Babesia Smear See Comment Lyme Disease IgG Ab (Negative) Lyme Disease IgM Ab (Negative) SARS-CoV-2 (PCR) (Negative) Influenza Type A (PCR) (Neg) Influenza Type B (PCR) (Neg) RSV (RT-PCR) (Neg) 08/13/22 08/13/22 08/13/22 Range/Units 13:40 13:40 13:40 WBC (4.8-10.8) K/ul RBC (3.93-5.22) M/uL Hgb (12.0-16.0) g/dl Hct (34.1-44.9) % MCV (80.0-100.0) fL MCH (25.0-34.0) pg MCHC (32.0-36.0) g/dL RDW Std Deviation (36.4-46.3) fL RDW Coeff of Kelli (11.5-14.5) % Plt Count (130-400) K/uL MPV (9.4-12.3) fL Immature Gran % (Auto) % Neut % (Auto) % Lymph % (Auto) % [place] % (Auto) % Eos % (Auto) % Baso % (Auto) % Neut # (Auto) (1.4-6.5) K/uL Lymph # (Auto) (1.2-3.4) K/uL [place] # (Auto) (0.24-0.82) K/uL Eos # (Auto) (0-0.50) K/uL Baso # (Auto) (0-0.2) K/uL Immature Gran # (Auto) (0.00-0.02) K/uL Sodium (136-145) mmol/L Potassium (3.5-5.1) mmol/L Chloride (98-107) mmol/L Carbon Dioxide (21-32) mmol/L Anion Gap (3-11) BUN (6-23) mg/dl Creatinine (0.6-1.2) mg/dl Est Cr Clr Drug Dosing ml/min Est GFR ( Amer) ml/min Est GFR (Non-Af Amer) ml/min BUN/Creatinine Ratio (10-20) Glucose (70-99(Fasting)) mg/dl POC Glucose (70-99) mg/dl Estimat Average Glucose 260 mg/dl Hemoglobin A1c 10.7 H (4.5-5.6) % Lactate (0.4-2.0) mmol/L Calcium (8.5-10.1) mg/dl Magnesium 2.0 (1.7-2.4) mg/dl Total Bilirubin (0.2-1.0) mg/dl AST (13-39) U/L ALT (7-52) U/L Alkaline Phosphatase (34-104) U/L Troponin I High Sens (0-14) pg/ml Total Protein (6.0-8.3) gm/dl Albumin (3.4-5.0) gm/dl Globulin (2.5-4.0) gm/dl Albumin/Globulin Ratio (0.9-2) TSH 2.032 (0.300-4.500) uIu/ml Anaplasma Smear Babesia Smear Lyme Disease IgG Ab (Negative) Lyme Disease IgM Ab (Negative) SARS-CoV-2 (PCR) (Negative) Influenza Type A (PCR) (Neg) Influenza Type B (PCR) (Neg) RSV (RT-PCR) (Neg) 08/13/22 08/13/22 08/13/22 Range/Units 13:40 13:40 14:46 WBC (4.8-10.8) K/ul RBC (3.93-5.22) M/uL Hgb (12.0-16.0) g/dl Hct (34.1-44.9) % MCV (80.0-100.0) fL MCH (25.0-34.0) pg MCHC (32.0-36.0) g/dL RDW Std Deviation (36.4-46.3) fL RDW Coeff of Kelli (11.5-14.5) % Plt Count (130-400) K/uL MPV (9.4-12.3) fL Immature Gran % (Auto) % Neut % (Auto) % Lymph % (Auto) % [place] % (Auto) % Eos % (Auto) % Baso % (Auto) % Neut # (Auto) (1.4-6.5) K/uL Lymph # (Auto) (1.2-3.4) K/uL [place] # (Auto) (0.24-0.82) K/uL Eos # (Auto) (0-0.50) K/uL Baso # (Auto) (0-0.2) K/uL Immature Gran # (Auto) (0.00-0.02) K/uL Sodium (136-145) mmol/L Potassium (3.5-5.1) mmol/L Chloride (98-107) mmol/L Carbon Dioxide (21-32) mmol/L Anion Gap (3-11) BUN (6-23) mg/dl Creatinine (0.6-1.2) mg/dl Est Cr Clr Drug Dosing ml/min Est GFR ( Amer) ml/min Est GFR (Non-Af Amer) ml/min BUN/Creatinine Ratio (10-20) Glucose (70-99(Fasting)) mg/dl POC Glucose (70-99) mg/dl Estimat Average Glucose mg/dl Hemoglobin A1c (4.5-5.6) % Lactate (0.4-2.0) mmol/L Calcium (8.5-10.1) mg/dl Magnesium (1.7-2.4) mg/dl Total Bilirubin (0.2-1.0) mg/dl AST (13-39) U/L ALT (7-52) U/L Alkaline Phosphatase (34-104) U/L Troponin I High Sens 3.9 (0-14) pg/ml Total Protein (6.0-8.3) gm/dl Albumin (3.4-5.0) gm/dl Globulin (2.5-4.0) gm/dl Albumin/Globulin Ratio (0.9-2) TSH (0.300-4.500) uIu/ml Anaplasma Smear Babesia Smear Lyme Disease IgG Ab Negative (Negative) Lyme Disease IgM Ab Negative (Negative) SARS-CoV-2 (PCR) NEGATIVE (Negative) Influenza Type A (PCR) Negative (Neg) Influenza Type B (PCR) Negative (Neg) RSV (RT-PCR) Negative (Neg) 08/13/22 08/13/22 Range/Units 15:51 15:55 WBC (4.8-10.8) K/ul RBC (3.93-5.22) M/uL Hgb (12.0-16.0) g/dl Hct (34.1-44.9) % MCV (80.0-100.0) fL MCH (25.0-34.0) pg MCHC (32.0-36.0) g/dL RDW Std Deviation (36.4-46.3) fL RDW Coeff of Kelli (11.5-14.5) % Plt Count (130-400) K/uL MPV (9.4-12.3) fL Immature Gran % (Auto) % Neut % (Auto) % Lymph % (Auto) % [place] % (Auto) % Eos % (Auto) % Baso % (Auto) % Neut # (Auto) (1.4-6.5) K/uL Lymph # (Auto) (1.2-3.4) K/uL [place] # (Auto) (0.24-0.82) K/uL Eos # (Auto) (0-0.50) K/uL Baso # (Auto) (0-0.2) K/uL Immature Gran # (Auto) (0.00-0.02) K/uL Sodium (136-145) mmol/L Potassium (3.5-5.1) mmol/L Chloride (98-107) mmol/L Carbon Dioxide (21-32) mmol/L Anion Gap (3-11) BUN (6-23) mg/dl Creatinine (0.6-1.2) mg/dl Est Cr Clr Drug Dosing ml/min Est GFR ( Amer) ml/min Est GFR (Non-Af Amer) ml/min BUN/Creatinine Ratio (10-20) Glucose (70-99(Fasting)) mg/dl POC Glucose 434 H* (70-99) mg/dl Estimat Average Glucose mg/dl Hemoglobin A1c (4.5-5.6) % Lactate 3.2 H* (0.4-2.0) mmol/L Calcium (8.5-10.1) mg/dl Magnesium (1.7-2.4) mg/dl Total Bilirubin (0.2-1.0) mg/dl AST (13-39) U/L ALT (7-52) U/L Alkaline Phosphatase (34-104) U/L Troponin I High Sens (0-14) pg/ml Total Protein (6.0-8.3) gm/dl Albumin (3.4-5.0) gm/dl Globulin (2.5-4.0) gm/dl Albumin/Globulin Ratio (0.9-2) TSH (0.300-4.500) uIu/ml Anaplasma Smear Babesia Smear Lyme Disease IgG Ab (Negative) Lyme Disease IgM Ab (Negative) SARS-CoV-2 (PCR) (Negative) Influenza Type A (PCR) (Neg) Influenza Type B (PCR) (Neg) RSV (RT-PCR) (Neg) Administered Medications Duloxetine HCl (Duloxetine Hcl 60 Mg Cap) 60 mg PO HS YEN Stop: 09/12/22 20:59 Last Admin: 08/13/22 20:40 Dose: 60 mg Documented By: SHELDON Enoxaparin Sodium (Enoxaparin Inj 40 Mg/0.4 Ml Syr) 40 mg SQ Q24H YEN Stop: 09/12/22 18:29 Last Admin: 08/13/22 20:44 Dose: 40 mg Documented By: SHELDON Famotidine (Famotidine 40 Mg Tablet) 40 mg PO BID YEN Stop: 09/12/22 20:59 Last Admin: 08/13/22 20:40 Dose: 40 mg Documented By: SHELDON Gabapentin (Gabapentin 800 Mg Tab) 800 mg PO TID YEN Stop: 09/12/22 20:59 Last Admin: 08/13/22 20:40 Dose: 800 mg Documented By: SHELDON Sodium Chloride (1/2 Nss) 1,000 mls @ 150 mls/hr IV .Q6H40M YEN Stop: 09/12/22 18:08 Last Admin: 08/13/22 19:33 Dose: 150 mls/hr Documented By: SHELDON Insulin Aspart (Insulin Aspart Per Unit) 0 units SC ACHS YEN Stop: 09/12/22 19:14 Last Admin: 08/13/22 20:41 Dose: Not Given Documented By: Admin: 08/13/22 20:34 Dose: 31 units Documented By: SHELDON Co-signed By: ADIN Levetiracetam (Levetiracetam 250 Mg Tab) 750 mg PO BID YEN Stop: 09/12/22 20:59 Last Admin: 08/13/22 20:39 Dose: 750 mg Documented By: SHELDON Miscellaneous (Remove Lidoderm Patch) 1 each N/A DAILY@2100 YEN Stop: 09/12/22 20:59 Last Admin: 08/13/22 20:43 Dose: Not Given Documented By: SHELDON Montelukast Sodium (Montelukast Sodium 10 Mg Tablet) 10 mg PO HS YEN Stop: 09/12/22 20:59 Last Admin: 08/13/22 20:42 Dose: 10 mg Documented By: SHELDON Oxycodone HCl (Oxycodone Hcl Ir 5 Mg Tab (Immediate Release)) 5 mg PO BID YEN Stop: 08/27/22 20:59 Last Admin: 08/13/22 21:13 Dose: 5 mg Documented By: ADIN Polyethylene Glycol (Polyethylene (Miralax) 17 Gm Pack) 17 gm PO BID YEN Stop: 09/12/22 20:59 Last Admin: 08/13/22 21:38 Dose: Not Given Documented By: SHELDON Trazodone HCl (Trazodone Hcl 100 Mg Tab) 100 mg PO HS YEN Stop: 09/12/22 20:59 Last Admin: 08/13/22 20:42 Dose: 100 mg Documented By: SHELDON Discontinued Medications Sodium Chloride (Nss 1000ml) 1,000 mls @ 999 mls/hr IV .Q1H1M ONE Stop: 08/13/22 14:55 Last Infusion: 08/13/22 17:25 Dose: 0 mls/hr Documented By: Admin: 08/13/22 14:34 Dose: 999 mls/hr Documented By: GEM Promethazine HCl (Phenergan) 6.25 mg in 50.25 mls @ 201 mls/hr IV NOW STA Stop: 08/13/22 14:09 Last Infusion: 08/13/22 14:48 Dose: 0 mls/hr Documented By: Admin: 08/13/22 14:33 Dose: 201 mls/hr Documented By: GEM Sodium Chloride (Nss 1000ml) 1,000 mls @ 999 mls/hr IV .Q1H1M ONE Stop: 08/13/22 17:31 Last Admin: 08/13/22 17:24 Dose: 999 mls/hr Documented By: GURWINDER Insulin Human Regular 10 units (/ Syringe) 10 mls @ 5 mls/min IV ONE ONE Stop: 08/13/22 20:31 Last Admin: 08/13/22 21:29 Dose: 5 mls/min Documented By: SHELDON Co-signed By: ILENE Insulin Glargine (Lantus Per Unit Charge) 45 units SQ NOW ONE Stop: 08/13/22 19:16 Last Admin: 08/13/22 20:34 Dose: 45 units Documented By: SHELDON Co-signed By: ADIN Insulin Human Regular (Novolin-R Insulin Per Unit Charge) 10 units IV NOW STA Stop: 08/13/22 14:18 Last Admin: 08/13/22 14:34 Dose: 10 units Documented By: GEM Co-signed By: ELEUTERIO Insulin Human Regular (Novolin-R Insulin Per Unit Charge) 10 units IV NOW STA Stop: 08/13/22 16:07 Last Admin: 08/13/22 16:37 Dose: 10 units Documented By: GURWINDER Co-signed By: BRIELLE Ketorolac Tromethamine (Ketorolac Tromethamine 15 Mg/Ml Vial) 15 mg IV NOW STA Stop: 08/13/22 13:56 Last Admin: 08/13/22 14:34 Dose: Not Given Documented By: GEM Ondansetron HCl (Ondansetron Inj 2 Mg/Ml 2 Ml Vial) 4 mg IV NOW STA Stop: 08/13/22 13:56 Last Admin: 08/13/22 14:34 Dose: 4 mg Documented By: GEM Imaging Data Radiologist's Impression: Chest X-Ray 08/13/22 13:55 XR chest 1V portable HISTORY: fever COMPARISON: Chest 04/05/2022. FINDINGS: No pneumothorax. No pleural effusions. Slight elevation of the left hemidiaphragm and left basilar subsegmental atelectasis remains unchanged. Otherwise, the lungs are clear. The heart is normal in size. There are low lung volumes. IMPRESSION: No significant change compared to the prior study. No acute process. ACT 112: Negative or not required by law. Electronically signed by: Luis F Mixon M.D. 08/13/2022 2:33 PM Discharge Plan Visit Data Chief Complaint: Hyperglycemia Stated Complaint: Hyperglycemia ED Provider: Kumar Coronado Discharge Problem: Dizziness, Acute hyperglycemia, Acute hyponatremia, Failure of outpatient treatment Patient Disposition: Admitted As Inpatient Condition: Good Discharge Instructions Interventions: ED Discharge Assessment Last Done: 08/13/22 18:05
--- NOTE | 2022-08-13 15:11 | Electrocardiogram Report ---
Test Reason : Blood Pressure : / mmHG Vent. Rate : 096 BPM Atrial Rate : 096 BPM P-R Int : 158 ms QRS Dur : 080 ms QT Int : 388 ms P-R-T Axes : 036 -13 022 degrees QTc Int : 490 ms Normal sinus rhythm Anterolateral infarct (cited on or before 02-AUG-2022) Abnormal ECG When compared with ECG of 02-AUG-2022 20:03, Criteria for Inferior infarct are no longer Present T wave inversion now evident in Anterior leads Confirmed by Aiden Marin ([id number] on 08/13/2022 3:11:41 PM Referred By: Confirmed By:Chucky Marin
[2022-08-13 15:23] LABS: Lyme Ab IgG w/WB Rflx Negative (Negative); Lyme Ab IgM w/WB Rflx Negative (Negative)
[2022-08-13 15:33] LABS: Influenza A virus by PCR Negative (Neg); Influenza B virus by PCR Negative (Neg); RSV by PCR Negative (Neg); SARS CoV2 RNA(COVID-19)Cepheid NEGATIVE (Negative)
[2022-08-13 17:03] LABS: Estimated Average Glucose 260 mg/dl; Hemoglobin A1C 10.7 % (4.5-5.6)
[2022-08-13 17:34] LABS: Appearance Urine Clear (Clear); Bacteria Urine Automated Negative (Negative); Bilirubin Urine Negative (Negative); Blood Urine Negative (Negative); Cast Urine Automated 0 /lpf (0-5); Color Urine Yellow; Epithelial Cell Urine Auto 20-30 /lpf (0-5); Glucose Urine UA 3+ (Negative); Ketones Urine Negative (Negative); Leukocyte Esterase Urine Negative (Negative); Nitrite Urine Negative (Negative); Protein Urine Trace (Negative); RBC Urine Automated 0-4 /hpf (0-4); Specific Gravity Urine 1.041 (1.000-1.030); Urobilinogen Urine Negative (Negative); pH Urine 6.5 (4.5-7.5)
[2022-08-13] MEDS ORDERED: INSULIN REGULAR 250 UNITS in SODIUM CHLORIDE 0.9% 247.5 ML IV SCH (18:09)
[2022-08-13] MEDS ORDERED: ALBUTEROL HFA 8 GM INHALER INH PRN (18:09)
[2022-08-13] MEDS ORDERED: busPIRone 5 MG TAB PO PRN (18:09)
[2022-08-13] MEDS ORDERED: INSULIN PROTOCOL GOAL RANGE ONE (18:09)
[2022-08-13] MEDS ORDERED: ALBUT/IPRATROP 3MG/0.5MG NEB 3 ML VIAL INH PRN (18:09)
[2022-08-13] MEDS ORDERED: MODERATE STRESS LEVEL ONE (18:09)
[2022-08-13] MEDS ORDERED: DICLOFENAC SOD 1% GEL 100 GM TUBE EXT PRN (18:09)
[2022-08-13] MEDS ORDERED: ONDANSETRON 4 MG OD TAB PO PRN (18:09)
[2022-08-13] MEDS ORDERED: NON-FORMULARY MEDICATION (Dulaglutide [Trulicity] 4.5 mg/0.5 mL pen injector) SQ SCH (18:09)
[2022-08-13] MEDS ORDERED: LIDOCAINE 5% 1 PATCH TD PRN (18:09)
[2022-08-13] MEDS ORDERED: CYCLOBENZAPRINE HCL 10 MG TAB PO PRN (18:09)
[2022-08-13] MEDS ORDERED: IBUPROFEN 800 MG TAB PO PRN (18:09)
[2022-08-13] MEDS ORDERED: PROMETHAZINE HCL 25 MG TAB PO PRN (18:09)
[2022-08-13] MEDS ORDERED: ALBUTEROL 0.083% NEBU SOLN 3 ML VIAL INH PRN (18:09)
[2022-08-13] MEDS ORDERED: STAT IV STA (18:09)
--- NOTE | 2022-08-13 18:19 | History & Physical Report ---
Date of Service August 13, 2022 Assessment & Plan (1) Hyperglycemia: (2) Acute dehydration: (3) Seizure disorder: (4) Seizure: Plan Uncontrolled BS DM2 Hb a1c 10.7 % - fourth Ed visit for high BS in past 2 weeks:iV INSULIN DRIP---and iv fluids. Monitor BMP. Montior ch intake and adjust Novolog per BS results . Start Lantus am, and meals tomorrow. Discussed with Dr Aneudy Pérez, patient's PCP who sees her every two weeks. Recent stressors in her life have caused wide fluctuations in BS. Patient calls him that her BS are in 500s last two days but in the 200s at the time fo calling. Rosa has a lory relationship with endocrine - saw them many years ago. Life stressors including the murder of a cousin in [place] recently probably causing poor self care/ compliance as well. Also d/w case assistantelsy Avendaño- patient has significant health seeking behavior- comes often to the ED . patient says she has seen diabetic diet educator in past- trying to consult endocrine and diab educator this weekend- tomorrow is s Tuesday. Check Trop I Mild decrease in platelets, and slightly elevated lactate- normal UA. Check blood cx COPD stable- chronic dry cough Home meds resumed- including oxycodone , Gi meds and Lantus. Sc novolog held while on iv insulin. Pharmacy consult for insulin transition. History of Present Illness Chief Complaint: high blood sugars and light headedness. Primary Care Provider: Aneudy Pérez MD 51 F with COPD, anxiety and depression, seizure disorder ( admitted February and March this year for seizures and meds adjusted ),h/o DM 2 diagnosed 2 years ago poorly controlled for the last one month or so and chronic abd pain on opioids since a cholecystectomy amd umibilical hernia repair fur years ago, also w chronic nausea , presented for the thrird time to the ED this week as her BS read HI at home . BS here at 1315 was 486, and half hour later 508. Over an hour after 10 units iv insulin, at 1600 h, his BS was 436. Fourth Ed visit since Jul for hyperglycemia. Says she had missed her trulicity for two weeks as could not get it but did take a dose 3 days ago as now she has it. She was non toxic and reading messages on her phone when evaluated at 1630 h, denying having eaten anything at all all day, but candy wrappers were seen in her ED room floor by nursing. Patient stated her 15 year odl son put a candy bag into her bag. She had more nausea then usual and dry heaves and got iv promethazine as well as ondansetron in the ED. She takes both po at home for last many years. Denies chest pain or any change in her baseline HEATH ( ONE TO BLOCKS). No change in chronic abd pain. No crying spells. Allergies Allergy/AdvReac Type Severity Reaction Status Date / Time acetaminophen AdvReac Severe LIVER Verified 08/11/22 19:04 COMPLICATIONS cephalexin AdvReac Severe Vomiting Verified 08/11/22 19:04 levofloxacin [From Levaquin] AdvReac Intermediate Vomiting Verified 08/11/22 19:04 Home Medications Medication Instructions Recorded Confirmed Type cyclobenzaprine 10 mg tablet 10 mg PO BID PRN Muscle Spasm ##0 11/18/17 08/13/22 History albuterol sulfate 90 mcg/actuation 2 puff inhalation Q4H PRN 02/10/18 08/13/22 History aerosol inhaler (Ventolin HFA) Shortness Of Breath Or Wheezing ##0 ibuprofen 800 mg tablet 800 mg PO TID PRN Pain 10/24/19 08/13/22 History promethazine 25 mg tablet 25 mg PO Q6H PRN Nausea 10/24/19 08/13/22 History fluticasone 232 mcg-salmeterol 14 2 inh inhalation BID PRN Shortness 08/21/20 08/13/22 History mcg/actuation breath activated Of Breath powdr (AirDuo RespiClick) montelukast 10 mg tablet 10 mg PO HS 09/01/20 08/13/22 History (Singulair) aspirin 81 mg tablet,delayed 81 mg PO QAM 10/28/20 08/13/22 History release ipratropium 0.5 mg-albuterol 3 mg 3 ml inhalation QID PRN Shortness 02/12/21 08/13/22 History (2.5 mg base)/3 mL nebulization Of Breath soln insulin aspart U-100 100 unit/mL 0 sliding scale dose SC TID 02/23/21 08/13/22 History (3 mL) subcutaneous pen (Novolog Flexpen U-100 Insulin aspart) cyclosporine 0.05 % eye drops in a 2 drp ophthalmic (eye) Q12H 04/17/21 08/13/22 History dropperette (Restasis) diclofenac sodium 1 % topical gel 4 g topical QID PRN Pain 07/20/21 08/13/22 History albuterol sulfate 2.5 mg/3 mL 2.5 mg inhalation DAILY PRN 01/19/22 08/13/22 History (0.083 %) solution for nebulization Shortness Of Breath famotidine 40 mg tablet 40 mg PO BID 01/19/22 08/13/22 History fluticasone propionate 50 1 spray intranasal DAILY PRN 01/19/22 08/11/22 History mcg/actuation nasal Congestion spray,suspension (Flonase Allergy Relief) lidocaine 5 % topical patch 1 patch transdermal DAILY PRN Pain 01/19/22 08/13/22 History pantoprazole 20 mg tablet,delayed 20 mg PO QAM 01/19/22 08/13/22 History release polyethylene glycol 3350 17 17 g PO BID 01/29/22 08/13/22 History gram/dose oral powder (Miralax) trazodone 100 mg tablet 100 mg PO HS 01/29/22 08/13/22 History duloxetine 60 mg capsule,delayed 60 mg PO HS 03/12/22 08/13/22 History release insulin glargine 100 unit/mL (3 48 unit subcut BID 03/12/22 08/13/22 History mL) subcutaneous pen (Lantus Solostar U-100 Insulin) dulaglutide 4.5 mg/0.5 mL 4.5 mg subcut WK 04/05/22 08/13/22 History subcutaneous pen injector (Trulicity) gabapentin 800 mg tablet 800 mg PO TID 04/05/22 08/13/22 History levetiracetam 750 mg tablet 750 mg PO BID #60 tabs 04/06/22 08/13/22 Rx (Keppra) buspirone 5 mg tablet 5 mg PO QID PRN anxiety 07/30/22 08/13/22 History nystatin 100,000 unit/gram topical 1 applic topical TID PRN NEEDED 07/30/22 08/13/22 History cream oxycodone 5 mg tablet 5 mg PO BID 07/30/22 08/13/22 History ondansetron 4 mg disintegrating 4 mg PO Q6H PRN nausea and 08/11/22 08/13/22 Rx tablet vomiting #12 tabs Past Med/Surg History Medical History Abdominal pain Acute hyperglycemia Anxiety Brain cyst Chest pain Chronic low back pain with left-sided sciatica Chronic obstructive pulmonary disease Dental abscess Depression Elevated lactic acid level Emphysema of lung Encounter for pre-operative examination Hx of blood clots Hyperglycemia Hyperglycemia Hyperglycemia due to type 2 diabetes mellitus Hyperlipidemia Hypertension Hypokalemia Hypomagnesemia Hyponatremia Insulin dependent diabetes mellitus Lightheadedness Medication reaction Obesity Periapical abscess with facial involvement Pulmonary embolism Reports was anticoagulation x 60 days, not on chronic anticoagulation Syncope Thrombocytopenia Tinea corporis Tinea cruris Uncontrolled type 2 diabetes mellitus Surgical History History of laparoscopic cholecystectomy Hx of oral surgery (02/15/20) Acute right submandibular, submental space infection with floor of mouth infection caused by infected lower teeth. Dr. Rios 02/15/20 S/P dilation and curettage S/P laparoscopic hernia repair S/P laparoscopic procedure ovarian cyst surgery Family History (Updated 08/13/22 @ 18:18 by Dallas Lyman MD) Mother , 73 Heart disease Cancer small cell ca lung caused at 73 Father Skin cancer Brother No problems noted. Sister No problems noted. Grandmother (Maternal) , 48 Heart disease T2DM (type 2 diabetes mellitus) Grandmother (Paternal) , 83 Heart disease Kidney disease Uncle T2DM (type 2 diabetes mellitus) Other Diabetes Obesity Denies family history of Ovarian cancer Breast cancer Colorectal cancer Uterine cancer Social History (Updated 08/13/22 @ 18:16 by Dallas Lyman MD) Smoking Status: Former smoker Tobacco Type: Cigarettes Cigarettes Per Day: 5; Number of Years Since Quit: 4; Second Hand Exposure: Yes; Hx Alcohol Use: No Hx Substance Use: No Preferred Language: Upper Sorbian Communication Ability: Effective Visual Impairment: No Limitations Hearing Ability: Normal Ore Washer Required: No Beliefs That Will Affect Care: None marital status: Current Living Situation: Family Current Living Situation Comment: Lives with son (15yo) current occupational status: unemployed 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 Results & Data Results & Data ([facility]) Vital Signs (Past 12 Hours) Vital Signs Temp Pulse Pulse Resp BP BP Pulse Ox 08/13/22 17:30 101 H 21 99 08/13/22 17:05 108 H 98 08/13/22 16:30 108/60 08/13/22 16:00 139/82 08/13/22 15:58 140/78 08/13/22 15:00 99 08/13/22 14:39 81 15 100 08/13/22 14:39 129/78 08/13/22 14:30 89 21 98 08/13/22 14:00 98 H 22 99 08/13/22 13:30 100 H 17 97 08/13/22 13:30 135/95 08/13/22 13:00 89 19 98 08/13/22 13:00 123/87 08/13/22 12:49 88 14 100 08/13/22 14:38 85 18 129/78 98 08/13/22 12:30 37.9 C H 95 H 18 130/78 99 O2 Del Method 08/13/22 17:30 08/13/22 17:05 08/13/22 16:30 08/13/22 16:00 08/13/22 15:58 08/13/22 15:00 08/13/22 14:39 08/13/22 14:39 08/13/22 14:30 08/13/22 14:00 08/13/22 13:30 08/13/22 13:30 08/13/22 13:00 08/13/22 13:00 08/13/22 12:49 08/13/22 14:38 Room Air 08/13/22 12:30 Room Air Laboratory Results 08/13/22 15:51 Aerobic Blood Culture - Pending Blood Anaerobic Blood Culture - Pending 08/13/22 15:51 Aerobic Blood Culture - Pending Blood Anaerobic Blood Culture - Pending 08/13/22 08/13/22 08/13/22 17:40 17:05 15:55 WBC RBC Hgb Hct MCV MCH MCHC RDW Std Deviation RDW Coeff of Kelli Plt Count MPV Immature Gran % (Auto) Neut % (Auto) Lymph % (Auto) [place] % (Auto) Eos % (Auto) Baso % (Auto) Neut # (Auto) Lymph # (Auto) [place] # (Auto) Eos # (Auto) Baso # (Auto) Immature Gran # (Auto) Sodium Potassium Chloride Carbon Dioxide Anion Gap BUN Creatinine Est Cr Clr Drug Dosing Est GFR ( Amer) Est GFR (Non-Af Amer) BUN/Creatinine Ratio Glucose POC Glucose 368 H* 434 H* Estimat Average Glucose Hemoglobin A1c Lactate Calcium Magnesium Total Bilirubin AST ALT Alkaline Phosphatase Total Protein Albumin Globulin Albumin/Globulin Ratio TSH Urine Color Yellow Urine Appearance Clear Urine pH 6.5 Ur Specific Gentry 1.041 H Urine Protein Trace H Urine Glucose (UA) 3+ H Urine Ketones Negative Urine Blood Negative Urine Nitrite Negative Urine Bilirubin Negative Urine Urobilinogen Negative Ur Leukocyte Esterase Negative Urine WBC (Auto) 1-5 Urine RBC (Auto) 0-4 U Hyaline Cast (Auto) 0 U Epithel Cells (Auto) 20-30 H Urine Bacteria (Auto) Negative Anaplasma Smear Babesia Smear Lyme Disease IgG Ab Lyme Disease IgM Ab SARS-CoV-2 (PCR) Influenza Type A (PCR) Influenza Type B (PCR) RSV (RT-PCR) 08/13/22 08/13/22 08/13/22 15:51 14:46 13:40 WBC RBC Hgb Hct MCV MCH MCHC RDW Std Deviation RDW Coeff of Kelli Plt Count MPV Immature Gran % (Auto) Neut % (Auto) Lymph % (Auto) [place] % (Auto) Eos % (Auto) Baso % (Auto) Neut # (Auto) Lymph # (Auto) [place] # (Auto) Eos # (Auto) Baso # (Auto) Immature Gran # (Auto) Sodium Potassium Chloride Carbon Dioxide Anion Gap BUN Creatinine Est Cr Clr Drug Dosing Est GFR ( Amer) Est GFR (Non-Af Amer) BUN/Creatinine Ratio Glucose POC Glucose Estimat Average Glucose Hemoglobin A1c Lactate 3.2 H* Calcium Magnesium Total Bilirubin AST ALT Alkaline Phosphatase Total Protein Albumin Globulin Albumin/Globulin Ratio TSH Urine Color Urine Appearance Urine pH Ur Specific [place] Urine Protein Urine Glucose (UA) Urine Ketones Urine Blood Urine Nitrite Urine Bilirubin Urine Urobilinogen Ur Leukocyte Esterase Urine WBC (Auto) Urine RBC (Auto) U Hyaline Cast (Auto) U Epithel Cells (Auto) Urine Bacteria (Auto) Anaplasma Smear Babesia Smear Lyme Disease IgG Ab Negative Lyme Disease IgM Ab Negative SARS-CoV-2 (PCR) NEGATIVE Influenza Type A (PCR) Negative Influenza Type B (PCR) Negative RSV (RT-PCR) Negative 08/13/22 08/13/22 08/13/22 13:40 13:40 13:40 WBC RBC Hgb Hct MCV MCH MCHC RDW Std Deviation RDW Coeff of Kelli Plt Count MPV Immature Gran % (Auto) Neut % (Auto) Lymph % (Auto) [place] % (Auto) Eos % (Auto) Baso % (Auto) Neut # (Auto) Lymph # (Auto) [place] # (Auto) Eos # (Auto) Baso # (Auto) Immature Gran # (Auto) Sodium Potassium Chloride Carbon Dioxide Anion Gap BUN Creatinine Est Cr Clr Drug Dosing Est GFR ( Amer) Est GFR (Non-Af Amer) BUN/Creatinine Ratio Glucose POC Glucose Estimat Average Glucose 260 Hemoglobin A1c 10.7 H Lactate Calcium Magnesium 2.0 Total Bilirubin AST ALT Alkaline Phosphatase Total Protein Albumin Globulin Albumin/Globulin Ratio TSH 2.032 Urine Color Urine Appearance Urine pH Ur Specific [place] Urine Protein Urine Glucose (UA) Urine Ketones Urine Blood Urine Nitrite Urine Bilirubin Urine Urobilinogen Ur Leukocyte Esterase Urine WBC (Auto) Urine RBC (Auto) U Hyaline Cast (Auto) U Epithel Cells (Auto) Urine Bacteria (Auto) Anaplasma Smear Babesia Smear Lyme Disease IgG Ab Lyme Disease IgM Ab SARS-CoV-2 (PCR) Influenza Type A (PCR) Influenza Type B (PCR) RSV (RT-PCR) 08/13/22 08/13/22 08/13/22 13:40 13:40 13:13 WBC 8.29 RBC 4.53 Hgb 14.8 Hct 42.1 MCV 92.9 MCH 32.7 MCHC 35.2 RDW Std Deviation 45.1 RDW Coeff of Kelli 13.2 Plt Count 118 L MPV 12.3 Immature Gran % (Auto) 1.1 Neut % (Auto) 62.7 Lymph % (Auto) 27.1 [place] % (Auto) 7.5 Eos % (Auto) 1.2 Baso % (Auto) 0.4 Neut # (Auto) 5.20 Lymph # (Auto) 2.25 [place] # (Auto) 0.62 Eos # (Auto) 0.10 Baso # (Auto) 0.03 Immature Gran # (Auto) 0.09 H Sodium 134 L Potassium 4.1 Chloride 99 Carbon Dioxide 27 Anion Gap 8 BUN 9 Creatinine 0.65 Est Cr Clr Drug Dosing 118.4 Est GFR ( Amer) 117.5 Est GFR (Non-Af Amer) 101.4 BUN/Creatinine Ratio 13.8 Glucose 508 H* POC Glucose 486 H* Estimat Average Glucose Hemoglobin A1c Lactate Calcium 10.7 H Magnesium Total Bilirubin 0.6 AST 13 ALT 14 Alkaline Phosphatase 122 H Total Protein 7.4 Albumin 4.0 Globulin 3.4 Albumin/Globulin Ratio 1.2 TSH Urine Color Urine Appearance Urine pH Ur Specific [place] Urine Protein Urine Glucose (UA) Urine Ketones Urine Blood Urine Nitrite Urine Bilirubin Urine Urobilinogen Ur Leukocyte Esterase Urine WBC (Auto) Urine RBC (Auto) U Hyaline Cast (Auto) U Epithel Cells (Auto) Urine Bacteria (Auto) Anaplasma Smear See Comment Babesia Smear See Comment Lyme Disease IgG Ab Lyme Disease IgM Ab SARS-CoV-2 (PCR) Influenza Type A (PCR) Influenza Type B (PCR) RSV (RT-PCR) ECG Additional Comments: T inversions in V1 and V2, nsr , POOR r WAVE PROGRESSION- ALL UNCHANGED SINCE march 2022 Code Status & VTE Plan VTE Prophylaxis Plan VTE Prophylaxis will be ordered: Yes PG Care Time/CCT Total # of Minutes Spent Total Time Spent with Patient: Total time spent is greater than 50% in coordination of care (as documented) at patient's floor/unit and/or counseling patient: Coding Level of Care Code INT OBSERVATION CARE 70M LVL 3 Diagnoses Hyperglycemia R73.9 Acute dehydration E86.0 Seizure disorder G40.909 Seizure R56.9
[2022-08-13] MEDS ORDERED: FLUARIX QUADRIVALENT 0.5 ML SYR IM ONE (18:20)
[2022-08-13] MEDS ORDERED: PHARMACY GLYCEMIC MGMT CONSULT PRN (18:30)
[2022-08-13] MEDS ORDERED: FLUTICASONE/VILANTEROL 100/25MCG 14 PUFFS/INHALER INH PRN (18:30)
[2022-08-13] MEDS ORDERED: CARBOHYDRATES FOR HYPOGLYCEMIA PO PRN (19:15)
[2022-08-13] MEDS ORDERED: GLUCOSE 40% GEL 15 GM TUBE PO PRN (19:15)
[2022-08-13] MEDS ORDERED: GLUCAGON FOR INJ 1 MG VIAL IM PRN (19:15)
[2022-08-13] MEDS ORDERED: DEXTROSE 50% 50 ML SYRINGE IV PRN (19:15)
[2022-08-13] MEDS ORDERED: INSULIN ASPART PER UNIT SC SCH (19:15)
[2022-08-13] MEDS ORDERED: LANTUS PER UNIT CHARGE SQ ONE (19:15)
[2022-08-13] MEDS ORDERED: GLUCOSE 10 TAB/TUBE PO PRN (19:15)
[2022-08-13] MEDS: SODIUM CHLORIDE 0.45 % 1,000 ML IV SCH (19:33)
[2022-08-13] MEDS ORDERED: INSULIN HUMAN REGULAR PER UNIT 10 UNITS in SYRINGE 9.9 ML IV ONE (20:30)
[2022-08-13] MEDS: INSULIN ASPART PER UNIT SC SCH ×2 (20:34→20:41)
[2022-08-13] MEDS: levETIRAcetam 250 MG TAB PO SCH (20:39)
[2022-08-13] MEDS: GABAPENTIN 800 MG TAB PO SCH (20:40)
[2022-08-13] MEDS: DULoxetine HCL 60 MG CAP PO SCH (20:40)
[2022-08-13] MEDS: FAMOTIDINE 40 MG TABLET PO SCH (20:40)
[2022-08-13] MEDS: MONTELUKAST SODIUM 10 MG TABLET PO SCH (20:42)
[2022-08-13] MEDS: traZODone HCL 100 MG TAB PO SCH (20:42)
[2022-08-13] MEDS: POLYETHYLENE (MIRALAX) 17 GM PACK PO SCH ×2 (20:42→21:38)
[2022-08-13] MEDS: ENOXAPARIN INJ 40 MG/0.4 ML SYR SQ SCH (20:44)
[2022-08-13] MEDS ORDERED: NON-FORMULARY MEDICATION (Insulin Aspart U-100 [Novolog Flexpen U-100 Insulin] 100 unit/mL SC SCH (21:00)
[2022-08-13] MEDS ORDERED: NON-FORMULARY MEDICATION (Insulin Glargine [Lantus Solostar U-100 Insulin] 100 unit/mL (3 SQ SCH (21:00)
[2022-08-13] MEDS: oxyCODONE HCL IR 5 MG TAB (IMMEDIATE RELEASE) PO SCH (21:13)
[2022-08-14] MEDS: INSULIN ASPART PER UNIT SC SCH ×6 (00:11→20:30)
[2022-08-14] MEDS: SODIUM CHLORIDE 0.45 % 1,000 ML IV SCH ×2 (02:25→09:27)
[2022-08-14 02:26] LABS: Hematocrit (blood only) 37.5 % (34.1-44.9); Hemoglobin 13.3 g/dl (12.0-16.0); Mean Corpuscular Hemoglobin 33.3 pg (25.0-34.0); Mean Corpuscular Hgb Conc 35.5 g/dL (32.0-36.0); Mean Platelet Volume 11.9 fL (9.4-12.3); Platelet Count 112 K/uL (130-400); RDW Coefficient of Variation 13.4 % (11.5-14.5); RDW Standard Deviation 46.5 fL (36.4-46.3); Red Blood Count 3.99 M/uL (3.93-5.22); White Blood Count 8.22 K/ul (4.8-10.8)
[2022-08-14 02:55] LABS: BUN Creatinine Ratio 12.1 (10-20); Calcium 8.6 mg/dl (8.5-10.1); Creatinine Clr Calc Pharmacy 132.7 ml/min; Est GFR (Non-African American) 105.2 ml/min; Magnesium 1.7 mg/dl (1.7-2.4); Potassium 3.4 mmol/L (3.5-5.1)
[2022-08-14] MEDS ORDERED: POTASSIUM CHLORIDE CRTAB 20 MEQ TABCR PO STA (05:10)
--- NOTE | 2022-08-14 05:17 | Communication Note ---
Date of Service: August 14, 2022 Messaged by nursing about patient's bsg; 9PM 461. coverage Novolog given. midnight bsg 181. 4AM bsg 371. Concern for outside food. Reviewed chart. Ordering 3 bags 10meq K riders and 3 x 1gm Mg. Continue 1/2 NSS 150mL/hr. Added 45u lantus BID order. Reviewed pharmacy glycemic note from 03/2022 admission. Pharmacy is current consulted.
[2022-08-14] MEDS: POTASSIUM CHLORIDE / WTR 10 MEQ/100 ML PLCT IV SCH ×3 (05:43→07:48)
[2022-08-14] MEDS: MAGNESIUM SULFATE / D5W 1 GM/100 ML BAG IV SCH ×2 (05:43→07:47)
[2022-08-14] MEDS: levETIRAcetam 250 MG TAB PO SCH ×2 (08:53→20:20)
[2022-08-14] MEDS: PANTOprazole 40 MG TAB PO SCH (08:54)
[2022-08-14] MEDS: GABAPENTIN 800 MG TAB PO SCH ×3 (08:54→20:19)
[2022-08-14] MEDS: ASPIRIN 81 MG ECTAB PO SCH (08:54)
[2022-08-14] MEDS: FAMOTIDINE 40 MG TABLET PO SCH ×2 (08:55→20:19)
[2022-08-14] MEDS: POLYETHYLENE (MIRALAX) 17 GM PACK PO SCH ×2 (08:55→20:24)
[2022-08-14] MEDS: oxyCODONE HCL IR 5 MG TAB (IMMEDIATE RELEASE) PO SCH ×2 (08:59→20:18)
[2022-08-14] MEDS ORDERED: LANTUS PER UNIT CHARGE SQ SCH ×2 (09:00→21:00)
[2022-08-14] MEDS ORDERED: NSS + 20MEQ KCL 20 MEQ/1,000 ML BAG IV SCH (09:00)
--- NOTE | 2022-08-14 16:41 | Hospitalist Progress Note ---
Date of Service August 14, 2022 Assessment & Plan (1) Hyperglycemia: Plan: 45 units Lantus twice a day. Discussed with pharmacy who are following clinical protocols. Blood sugars if less than 180 tonight, will get 30 units of Lantus.RN Adamexplaining to her correction factor and carbohydrate counts. He is he is going to program an jude on her phone so she may use that instead of sliding scale. The patient is willing to learn. The patient is also willing to see her dietitian who she is seen only once in the past. She knows the location of her dietitian from [facility]. Dietary noncompliance is a challenge. Snacks being delivered from outside to the patient's room today it seems. Present on Admission?: Yes (2) Acute dehydration: Plan: Eating well we will stop IV fluids. Creatinine has normalized and so as her sodium (3) Diabetes mellitus with hyperglycemia: Plan: Did not tolerate lisinopril 2.5 mg some years ago and started by an operation manager. Had lightheadedness. Continue home Trulicity, Lantus 45 units twice daily and NovoLog 12 units 3 times a day with meals in addition to carbohydrate counting as being explained to her now instead of sliding scale. Plan Plan to discharge in the morning after she understands how to operate with correction factor for carbohydrates. Encourage ambulation. Telemetry stopped. Troponins normal. Admission and Anticipated Discharge Date Admission Date: August 13, 2022 Subjective Feels relaxed and well. No nausea or vomiting. Had about half of her breakfast and a good lunch. The patient was seen while eating lunch. Physical Exam Physical Exam: well looking obese, answering questions rapidly , quite talkative describing her history of different medications tried in the past and a detailed meal plan and weight loss Edentulous,intact EOM, perrl Dry tongue Chest CTA CVS S1 S2 RRR, NO MURMUR, mild tachycardia Foot exam- intact crude touch plantar aspects of feet b/l, Abd : obesity limits exam, some guarding RLQ GROUNDHAND - grossly intact, gait not tested Psych : normal affect, and normal insight. Results & Data Results & Data ([facility]) Vital Signs (Past 12 Hours) Vital Signs Temp Pulse Resp BP Pulse Ox O2 Del Method 08/14/22 16:17 36.4 C L 58 L 20 105/70 97 Room Air 08/14/22 11:58 36.2 C L 77 19 96/67 L 93 Room Air 08/14/22 07:51 37.3 C 88 19 107/71 93 Room Air PG Care Time/CCT Total # of Minutes Spent Total Time Spent with Patient: Total time spent is greater than 50% in coordination of care (as documented) at patient's floor/unit and/or counseling patient: Coding Level of Care Code 69525 Subseq Hosp Care Lvl 2 Diagnoses Hyperglycemia R73.9 Acute dehydration E86.0 Diabetes mellitus with hyperglycemia E11.65; Z79.4 Diabetes mellitus [facility] insulin use: with [facility] use Diabetes mellitus type: type 2 (1) Diabetes mellitus with hyperglycemia Diabetes mellitus [facility] 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
[2022-08-14] MEDS: ENOXAPARIN INJ 40 MG/0.4 ML SYR SQ SCH (18:07)
[2022-08-14] MEDS: DULoxetine HCL 60 MG CAP PO SCH (20:18)
[2022-08-14] MEDS: MONTELUKAST SODIUM 10 MG TABLET PO SCH (20:20)
[2022-08-14] MEDS: traZODone HCL 100 MG TAB PO SCH (20:21)
[2022-08-15] MEDS ORDERED: INSULIN ASPART PER UNIT SC SCH
[2022-08-15] MEDS: INSULIN ASPART PER UNIT SC SCH ×6 (00:13→20:43)
[2022-08-15 06:28] LABS: BUN Creatinine Ratio 10.6 (10-20); Calcium 8.4 mg/dl (8.5-10.1); Est GFR (African American) 116.9 ml/min; Est GFR (Non-African American) 100.9 ml/min; Magnesium 1.7 mg/dl (1.7-2.4); Potassium 4.3 mmol/L (3.5-5.1)
[2022-08-15] MEDS ORDERED: LANTUS PER UNIT CHARGE SQ ONE (07:45)
[2022-08-15] MEDS: FAMOTIDINE 40 MG TABLET PO SCH ×2 (08:17→20:38)
[2022-08-15] MEDS: levETIRAcetam 250 MG TAB PO SCH ×2 (08:18→20:38)
[2022-08-15] MEDS: PANTOprazole 40 MG TAB PO SCH (08:18)
[2022-08-15] MEDS: oxyCODONE HCL IR 5 MG TAB (IMMEDIATE RELEASE) PO SCH ×2 (08:18→20:40)
[2022-08-15] MEDS: ASPIRIN 81 MG ECTAB PO SCH (08:18)
[2022-08-15] MEDS: GABAPENTIN 800 MG TAB PO SCH ×3 (08:18→20:38)
[2022-08-15] MEDS: POLYETHYLENE (MIRALAX) 17 GM PACK PO SCH ×2 (09:17→20:41)
--- NOTE | 2022-08-15 10:37 | Pharmacy Report ---
Pharmacy Glycemic Short Note 2 - Date of Service August 15, 2022 - Glycemic Short BSG Results (Last 24 hours): 08/14/22 08/14/22 08/14/22 11:57 16:17 20:04 Glucose POC Glucose 144 H 242 H 420 H* 08/14/22 08/15/22 08/15/22 20:05 00:05 03:58 Glucose POC Glucose 391 H* 287 H 429 H* 08/15/22 08/15/22 08/15/22 04:32 07:12 07:15 Glucose 475 H* POC Glucose 326 H* 334 H* OUTPATIENT ANTIDIABETIC REGIMEN: * Lantus 48 units bid, Novolog SSI, trulicity * 08/13 A1c: 10.7 ASSESSMENT: * Patient admitted with hyperglycemia. Pharmacy consulted to help with glycemic management. Patient received total of 151 units of insulin yesterday of which 90 units were basal (used home basal dose of ~45 units BID) * BSGs yesterday had trended down with lunch time, concerned for outside food/snacks so CF/CR loosened at lunch. BSGs however trended back up with dinner and HS. * Fasting BSG this AM elevated at 334 mg/dL - I talked with RN and he is not sure if outside food is still being brought in. Will increase basal today ~30% and tighten CF/CR * Will continue with overnight checks to have better understanding of insulin needs PLAN FOR INPATIENT GLYCEMIC CONTROL: * Hold outpatient oral diabetes medications * Basal insulin - increase * Lantus 60 units BID * Bolus insulin * NovoLog per scale ACHS or Q6hrs while NPO * Goal Range: Low 110 mg/dL - High 140 mg/dL * Correction Factor: 12 mg/dL/unit * Nutritional / Prandial insulin per carb ratio of 1 unit per 6 grams CHO consumed
[2022-08-15] MEDS: ENOXAPARIN INJ 40 MG/0.4 ML SYR SQ SCH (17:57)
--- NOTE | 2022-08-15 20:10 | Hospitalist Progress Note ---
Date of Service August 15, 2022 Assessment & Plan (1) Hyperglycemia: Plan: 45 units Lantus twice a day. Discussed with pharmacy who are following clinical protocols. Patient not amenable to educating her about carbohydrate count diet. Sliding scale insulin has not worked for her at home. Hemoglobin A1c has been over 10% last few months. At this time NovoLog 10 units 3 times a day along with carbohydrate counting per pharmacy ongoing. Appreciate the help Will speak with endocrinology in the morning. They do not come to hospital.. (2) Acute dehydration: Plan: Fairly euvolemic now (3) Diabetes mellitus with hyperglycemia: Plan: Did not tolerate lisinopril 2.5 mg some years ago and started by an mica builder. Had lightheadedness. Continue home Trulicity, Lantus 45 units twice daily and NovoLog 12 units 3 times a day with meals in addition to carbohydrate counting as being explained to her now instead of sliding scale. Plan Encouraged ambulation again. She mostly lies in bed all day. Will also speak with PCP Dr. Aneudy Pérez. D/W ANNIE Ram in detail at rounds Admission and Anticipated Discharge Date Admission Date: August 13, 2022 Subjective Feels well. Has not been ambulating. Denies any dietary indiscretions. There was a question of snacks in her room and blood sugars went up to over 400 overnight again. This morning over 300. Nursing report that she is not able to focus enough to learn using the carbohydrate counting jude. Dietary have seen her in giving her some written material. Physical Exam Physical Exam: well looking obese, answering questions rapidly as usual, was lying in bed at 5 PM in a darkened room Edentulous,intact EOM, perrl Chest CTA CVS S1 S2 RRR, NO MURMUR, mild tachycardia Foot exam- intact crude touch plantar aspects of feet b/l, Abd : obesity limits exam, nontender AUDITOR IN CHARGE - grossly intact, gait not tested Psych : normal affect, and normal insight. Results & Data Results & Data ([facility]) Vital Signs (Past 12 Hours) Vital Signs Temp Pulse Resp BP Pulse Ox O2 Del Method 08/15/22 19:35 36.8 C 86 18 103/67 96 08/15/22 16:00 36.7 C 75 19 116/75 98 Room Air 08/15/22 12:04 36.6 C 91 H 18 107/71 95 Room Air Laboratory Results Abnormal lab results 08/15/22 08/15/22 08/15/22 Range/Units 00:05 03:58 04:32 Sodium 135 L (136-145) mmol/L Glucose 475 H* (70-99(Fasting)) mg/dl POC Glucose 287 H 429 H* (70-99) mg/dl Calcium 8.4 L (8.5-10.1) mg/dl 08/15/22 08/15/22 08/15/22 Range/Units 07:12 07:15 11:08 Sodium (136-145) mmol/L Glucose (70-99(Fasting)) mg/dl POC Glucose 326 H* 334 H* 221 H (70-99) mg/dl Calcium (8.5-10.1) mg/dl 08/15/22 Range/Units 15:59 Sodium (136-145) mmol/L Glucose (70-99(Fasting)) mg/dl POC Glucose 166 H (70-99) mg/dl Calcium (8.5-10.1) mg/dl Medications Administered Home Medications Medication Instructions Recorded Confirmed Last Taken cyclobenzaprine 10 mg tablet 10 mg PO BID PRN Muscle Spasm ##0 11/18/17 08/13/22 03/12/22 albuterol sulfate 90 mcg/actuation 2 puff inhalation Q4H PRN 02/10/18 08/13/22 03/12/22 aerosol inhaler (Ventolin HFA) Shortness Of Breath Or Wheezing ##0 ibuprofen 800 mg tablet 800 mg PO TID PRN Pain 10/24/19 08/13/22 03/11/22 promethazine 25 mg tablet 25 mg PO Q6H PRN Nausea 10/24/19 08/13/22 03/06/22 fluticasone 232 mcg-salmeterol 14 2 inh inhalation BID PRN Shortness 08/21/20 08/13/22 03/12/22 mcg/actuation breath activated Of Breath powdr (AirDuo RespiClick) montelukast 10 mg tablet 10 mg PO HS 09/01/20 08/13/22 08/09/22 (Singulair) aspirin 81 mg tablet,delayed 81 mg PO QAM 10/28/20 08/13/22 08/09/22 release ipratropium 0.5 mg-albuterol 3 mg 3 ml inhalation QID PRN Shortness 02/12/21 08/13/22 03/12/22 (2.5 mg base)/3 mL nebulization Of Breath soln insulin aspart U-100 100 unit/mL 0 sliding scale dose SC TID 02/23/21 08/13/22 08/11/22 (3 mL) subcutaneous pen (Novolog UNKNOWN UNITS Flexpen U-100 Insulin aspart) cyclosporine 0.05 % eye drops in a 2 drp ophthalmic (eye) Q12H 04/17/21 08/13/22 08/09/22 dropperette (Restasis) diclofenac sodium 1 % topical gel 4 g topical QID PRN Pain 07/20/21 08/13/22 03/06/22 albuterol sulfate 2.5 mg/3 mL 2.5 mg inhalation DAILY PRN 01/19/22 08/13/22 03/12/22 (0.083 %) solution for nebulization Shortness Of Breath famotidine 40 mg tablet 40 mg PO BID 01/19/22 08/13/22 08/09/22 fluticasone propionate 50 1 spray intranasal DAILY PRN 01/19/22 08/11/22 03/12/22 mcg/actuation nasal Congestion spray,suspension (Flonase Allergy Relief) lidocaine 5 % topical patch 1 patch transdermal DAILY PRN Pain 01/19/22 08/13/22 Unknown pantoprazole 20 mg tablet,delayed 20 mg PO QAM 01/19/22 08/13/22 08/09/22 release polyethylene glycol 3350 17 17 g PO BID 01/29/22 08/13/22 08/09/22 gram/dose oral powder (Miralax) trazodone 100 mg tablet 100 mg PO HS 01/29/22 08/13/22 08/09/22 duloxetine 60 mg capsule,delayed 60 mg PO HS 03/12/22 08/13/22 08/09/22 release insulin glargine 100 unit/mL (3 48 unit subcut BID 03/12/22 08/13/22 08/13/22 08:00 mL) subcutaneous pen (Lantus Solostar U-100 Insulin) dulaglutide 4.5 mg/0.5 mL 4.5 mg subcut WK 04/05/22 08/13/22 08/10/22 09:00 subcutaneous [facility] gabapentin 800 mg tablet 800 mg PO TID 04/05/22 08/13/22 08/09/22 levetiracetam 750 mg tablet 750 mg PO BID #60 tabs 04/06/22 08/13/22 08/09/22 (Keppra) buspirone 5 mg tablet 5 mg PO QID PRN anxiety 07/30/22 08/13/22 Unknown nystatin 100,000 unit/gram topical 1 applic topical TID PRN NEEDED 07/30/22 08/13/22 Unknown cream oxycodone 5 mg tablet 5 mg PO BID 07/30/22 08/13/22 08/09/22 ondansetron 4 mg disintegrating 4 mg PO Q6H PRN nausea and 08/11/22 08/13/22 Unknown tablet vomiting #12 tabs Active Medications Generic Name Dose Route Start Last Admin Trade Name Freq PRN Reason Stop Dose Admin Aspirin 81 mg 08/14/22 09:00 08/15/22 08:18 Aspirin 81 Mg Ectab PO 09/13/22 08:59 81 mg QAM YEN Administration Cyclobenzaprine HCl 10 mg 08/13/22 18:09 08/15/22 10:12 Cyclobenzaprine Hcl 10 Mg Tab PO 09/12/22 18:08 10 mg BID PRN Administration Muscle Spasm Duloxetine HCl 60 mg 08/13/22 21:00 08/14/22 20:18 Duloxetine Hcl 60 Mg Cap PO 09/12/22 20:59 60 mg HS YEN Administration Enoxaparin Sodium 40 mg 08/13/22 18:30 08/15/22 17:57 Enoxaparin Inj 40 Mg/0.4 Ml Syr SQ 09/12/22 18:29 40 mg Q24H YEN Administration Famotidine 40 mg 08/13/22 21:00 08/15/22 08:17 Famotidine 40 Mg Tablet PO 09/12/22 20:59 40 mg BID YEN Administration Gabapentin 800 mg 08/13/22 21:00 08/15/22 15:51 Gabapentin 800 Mg Tab PO 09/12/22 20:59 800 mg TID YEN Administration Insulin Aspart 0 units 08/13/22 19:15 08/15/22 17:56 Insulin Aspart Per Unit SC 09/12/22 19:14 6 units ACHS YEN Administration Levetiracetam 750 mg 08/13/22 21:00 08/15/22 08:18 Levetiracetam 250 Mg Tab PO 09/12/22 20:59 750 mg BID YEN Administration Miscellaneous 1 each 08/14/22 00:00 08/15/22 17:57 Restasis- Order Awaiting Action N/A 09/13/22 00:00 Not Given QS YEN Miscellaneous 1 each 08/13/22 21:00 08/14/22 20:24 Remove Lidoderm Patch N/A 09/12/22 20:59 Not Given DAILY@2100 YEN Montelukast Sodium 10 mg 08/13/22 21:00 08/14/22 20:20 Montelukast Sodium 10 Mg Tablet PO 09/12/22 20:59 10 mg HS YEN Administration Oxycodone HCl 5 mg 08/13/22 21:00 08/15/22 08:18 Oxycodone Hcl Ir 5 Mg Tab (Immediate Release) PO 08/27/22 20:59 5 mg BID YEN Administration Pantoprazole Sodium 40 mg 08/14/22 09:00 08/15/22 08:18 Pantoprazole 40 Mg Tab PO 09/13/22 08:59 40 mg QAM YEN Administration Polyethylene Glycol 17 gm 08/13/22 21:00 08/15/22 09:17 Polyethylene (Miralax) 17 Gm Pack PO 09/12/22 20:59 Not Given BID YEN Trazodone HCl 100 mg 08/13/22 21:00 08/14/22 20:21 Trazodone Hcl 100 Mg Tab PO 09/12/22 20:59 100 mg HS YEN Administration PG Care Time/CCT Total # of Minutes Spent Total Time Spent with Patient: Total time spent is greater than 50% in coordination of care (as documented) at patient's floor/unit and/or counseling patient: Coding Level of Care Code 55740 Subseq Hosp Care Lvl 2 Diagnoses Hyperglycemia R73.9 Acute dehydration E86.0 Diabetes mellitus with hyperglycemia E11.65; Z79.4 Diabetes mellitus prison insulin use: with prison use Diabetes mellitus type: type 2 (1) Diabetes mellitus with hyperglycemia Diabetes mellitus computer terminal operator insulin use: with prison use Diabetes mellitus type: type 2 Qualified Code(s): E11.65 - Type 2 diabetes mellitus with hypergl ycemia; Z79.4 - care home (current) use of insulin
[2022-08-15] MEDS: DULoxetine HCL 60 MG CAP PO SCH (20:38)
[2022-08-15] MEDS: MONTELUKAST SODIUM 10 MG TABLET PO SCH (20:39)
[2022-08-15] MEDS: traZODone HCL 100 MG TAB PO SCH (20:40)
[2022-08-15] MEDS: LANTUS PER UNIT CHARGE SQ SCH (20:44)
[2022-08-16] MEDS: INSULIN ASPART PER UNIT SC SCH ×5 (00:46→17:44)
[2022-08-16] MEDS ORDERED: LIDOCAINE 5% 1 PATCH TD STA (01:54)
[2022-08-16] MEDS: KETOROLAC TROMETHAMINE 15 MG/ML VIAL IV PRN ×2 (02:44→18:26)
[2022-08-16 06:57] LABS: BUN Creatinine Ratio 18.2 (10-20); Calcium 8.5 mg/dl (8.5-10.1); Creatinine Clr Calc Pharmacy 139.2 ml/min; Est GFR (African American) 124.1 ml/min; Est GFR (Non-African American) 107.1 ml/min; Magnesium 1.7 mg/dl (1.7-2.4); Potassium 3.5 mmol/L (3.5-5.1)
[2022-08-16] MEDS ORDERED: INSULIN ASPART PER UNIT SC ONE (08:45)
[2022-08-16] MEDS: oxyCODONE HCL IR 5 MG TAB (IMMEDIATE RELEASE) PO SCH (09:31)
[2022-08-16] MEDS: LANTUS PER UNIT CHARGE SQ SCH (09:31)
[2022-08-16] MEDS: POLYETHYLENE (MIRALAX) 17 GM PACK PO SCH (09:32)
[2022-08-16] MEDS: ASPIRIN 81 MG ECTAB PO SCH (09:33)
[2022-08-16] MEDS: levETIRAcetam 250 MG TAB PO SCH (09:33)
[2022-08-16] MEDS: FAMOTIDINE 40 MG TABLET PO SCH (09:33)
[2022-08-16] MEDS: PANTOprazole 40 MG TAB PO SCH (09:33)
[2022-08-16] MEDS: GABAPENTIN 800 MG TAB PO SCH ×2 (11:23→15:34)
--- NOTE | 2022-08-16 18:17 | Discharge Summary ---
Date of Service August 16, 2022 Admission HPI Per Admitting Provider 51 F with COPD, anxiety and depression, seizure disorder ( admitted February and March this year for seizures and meds adjusted ),h/o DM 2 diagnosed 2 years ago poorly controlled for the last one month or so and chronic abd pain on opioids since a cholecystectomy amd umibilical hernia repair fur years ago, also w chronic nausea , presented for the thrird time to the ED this week as her BS read HI at home . BS here at 1315 was 486, and half hour later 508. Over an hour after 10 units iv insulin, at 1600 h, his BS was 436. Fourth Ed visit since Jul for hyperglycemia. Says she had missed her trulicity for two weeks as could not get it but did take a dose 3 days ago as now she has it. She was non toxic and reading messages on her phone when evaluated at 1630 h, denying having eaten anything at all all day, but candy wrappers were seen in her ED room floor by nursing. Patient stated her 15 year odl son put a candy bag into her bag. She had more nausea then usual and dry heaves and got iv promethazine as well as ondansetron in the ED. She takes both po at home for last many years. Denies chest pain or any change in her baseline HEATH ( ONE TO BLOCKS). No change in chronic abd pain. No crying spells. Principal Diagnosis Uncontrolled diabetes mellitus type 2, obesity Discharge Exam well looking obese, answering questions rapidly as usual, able to ambulate on her own, awake Edentulous,intact EOM, perrl Chest CTA CVS S1 S2 RRR, NO MURMUR, mild tachycardia Foot exam- intact crude touch plantar aspects of feet b/l, Abd : obesity limits exam, nontender RNFA - grossly intact, gait not tested Psych : normal affect, and normal insight. Discharge Data Allergies Allergy/AdvReac Type Severity Reaction Status Date / Time acetaminophen AdvReac Severe LIVER Verified 08/11/22 19:04 COMPLICATIONS cephalexin AdvReac Severe Vomiting Verified 08/11/22 19:04 levofloxacin [From Levaquin] AdvReac Intermediate Vomiting Verified 08/11/22 19:04 Consultations 08/13/22 14:35 ED Decision to Admit Stat 08/13/22 18:09 Consult Endocrinology Routine -but they do not see patients here. Diabetes Follow up Diabetes Follow-up Needed for HgbA1c >9% Prema the nutrition educator knows the patient well. She saw her on the day of discharge. She recommended 60 units twice daily of Lantus which the patient has been getting here with a little better blood sugar control. Blood sugars were still in the 200s and 300s. The patient is college-educated lady who says she knows diet controlled. She was quite cooperative with dose adjustments. She knows she has an endocrine appointment on 22 September that we have made. The patient has been under considerable stress recently She sees , her PCP this week. She has a good rapport with him. She is to take her blood sugar log Hospital Course (1) Hyperglycemia: 60 units Lantus twice a day has been her insulin dose last 2 days here. This is not showing up in [facility] after a long struggle so it has been handwritten in discharge instructions. Patient not amenable to educating her about carbohydrate count diet. Sliding scale insulin has not worked for her at home. But with increasing Lantus dose hopefully sugars will have some better control but will continue Hemoglobin A1c has been over 10% last few months. (2) Acute dehydration: Fairly euvolemic now (3) Diabetes mellitus with hyperglycemia: Did not tolerate lisinopril 2.5 mg some years ago and started by an mulcher operator. Had lightheadedness. Blood pressure was in the 90s systolic but fairly asymptomatic .continue home Trulicity, Advised to increase her salt intake. Plan Discharge home with close follow-up and change in Lantus insulin as mentioned above. Continue NovoLog 12 units 3 times a day. We tried unsuccessfully to teach her the use of phone apps for carbohydrate counting. Total Time Total Time Spent Total Time Spent (In Minutes): 70 Discharge Plan Discharge Items Patient Disposition: Home - Self-Care Reason For Visit: HYPERGLYCEMIA Discharge Diagnosis: Diabetes mellitus type 2 uncontrolled, severe obesity Condition on Discharge: Good Activity: Resume your previous activity Bathing: No limitations Sexual Activity: When tolerated Exercise/Sports: As tolerated Non-emergency contact: Primary Care Provider Call non-emergency contact if: you have any medication questions Follow-up/Referrals: Alfa Ftich PA-C [Physician Freight Associate] - 09/22/22 1:00 pm Aneudy Pérez MD [Primary Care Provider] - Diet: Carb Consistent or DM2 Addtl Attending Provider Instructions: As discussed you, you have an endocrinology appointment on 22 September. Please keep it see Dr Pérez this week. Insulin regimen has been changed to 60 units of Lantus twice a day, NovoLog 12 units with each meal plus sliding scale as before Pending Studies at Discharge: No Stand-Alone Forms: My [facility] Medications and DC Order Prescriptions: Continued cyclobenzaprine 10 mg Tablet 10 mg PO BID PRN (Reason: Muscle Spasm) Qty: 0 albuterol sulfate [Ventolin HFA] 90 mcg/actuation Hfa Aerosol Inhaler 2 puff INHALATION Q4H PRN (Reason: Shortness Of Breath Or Wheezing) Qty: 0 montelukast [Singulair] 10 mg tablet 10 mg PO HS fluticasone propion-salmeterol [AirDuo RespiClick] 232-14 mcg/actuation aerosol powdr breath activated 2 inh inhalation BID PRN (Reason: Shortness Of Breath) ibuprofen 800 mg tablet 800 mg PO TID PRN (Reason: Pain) promethazine 25 mg tablet 25 mg PO Q6H PRN (Reason: Nausea) aspirin 81 mg Tablet,Delayed Release (Dr/Ec) 81 mg PO QAM ipratropium-albuterol 0.5 mg-3 mg(2.5 mg base)/3 mL solution for nebulization 3 ml INHALATION QID PRN (Reason: Shortness Of Breath) cyclosporine [Restasis] 0.05 % Dropperette 2 drp OPHTHALMIC (EYE) Q12H duloxetine 60 mg capsule,delayed release(DR/EC) 60 mg PO HS oxycodone 5 mg Tablet 5 mg PO BID buspirone 5 mg tablet 5 mg PO QID PRN (Reason: anxiety) diclofenac sodium 1 % Gel 4 g TOPICAL QID PRN (Reason: Pain) albuterol sulfate 2.5 mg /3 mL (0.083 %) solution for nebulization 2.5 mg inhalation DAILY PRN (Reason: Shortness Of Breath) famotidine 40 mg tablet 40 mg PO BID pantoprazole 20 mg tablet,delayed release (DR/EC) 20 mg PO QAM lidocaine 5 % adhesive patch,medicated 1 patch transdermal DAILY PRN (Reason: Pain) fluticasone propionate [Flonase Allergy Relief] 50 mcg/actuation spray,suspension 1 spray INTRANASAL DAILY PRN (Reason: Congestion) trazodone 100 mg tablet 100 mg PO HS polyethylene glycol 3350 [Miralax] 17 gram/dose Powder 17 g PO BID Trulicity 4.5 mg/0.5 mL pen injector 4.5 mg SUBCUT WK Rx Instructions: TUESDAYS-- gabapentin 800 mg tablet 800 mg PO TID levetiracetam [Keppra] 750 mg tablet 750 mg PO BID Qty: 60 0RF ondansetron 4 mg tablet,disintegrating 4 mg PO Q6H PRN (Reason: nausea and vomiting) Qty: 12 0RF Changed insulin aspart U-100 [Novolog Flexpen U-100 Insulin] 100 unit/mL (3 mL) insulin pen 12 unit SC TID Qty: 15 0RF Rx Instructions: plus sliding scale Discontinued insulin glargine [Lantus Solostar U-100 Insulin] 100 unit/mL (3 mL) insulin pen 48 unit SUBCUT BID nystatin 100,000 unit/gram cream 1 applic topical TID PRN (Reason: NEEDED) Rx Instructions: Please apply 3 times daily until rash/irritation of the area clears Discharge Orders: Discharge Order (Routine); Ordered 08/16/22 Ordered By: Dallas Lyman Admission Data Admit Date/Time: 08/13/22 17:05 Attending Provider: Dallas Lyman Admit Provider: Dallas Lyman Primary Care Provider: Aneudy Pérez Other Providers: Jose Peters ; Prema Ramirez ; Chapin Guillen Diana ; Flower Elizabeth ; Grzegorz Contreras Stephen D. ; Alfa Fitch ; Chris Leon ; Sapphire Thomas ; Nazanin Jaffe ; [place] ; Cheryl Suárez ; Nestor Mcdaniels ; Diana Alejandre Andrea Coding Level of Care Code D/C DAY MANAGEMENT >30 MINS Diagnoses Hyperglycemia R73.9 Acute dehydration E86.0 Diabetes mellitus with hyperglycemia E11.65; Z79.4 Diabetes mellitus shelter insulin use: with shelter use Diabetes mellitus type: type 2
[2022-08-16] MEDS: ENOXAPARIN INJ 40 MG/0.4 ML SYR SQ SCH (18:26)
[2022-08-17] MEDS ORDERED: INSULIN ASPART PER UNIT SC SCH
== END 2022-08-16 20:40 | disposition home or self-care (01) ==
LOC: 4W 12:30 → ED 12:30 → 4W 18:05

== ENCOUNTER 2022-10-12 09:57 | Inpatient (IN) ==
--- NOTE | 2022-10-12 10:38 | Emergency Department Note ---
Impression & Plan Acute hyperglycemia, Seizure, Acute hip pain, Ambulatory dysfunction ED Provider Note NAME: MARCIO FERNANDEZ AGE: 52 SEX: F : 1970 ARRIVES VIA: Ambulance INFORMANT: Patient ED PROVIDER(S): Mike Hurtado DO CHIEF COMPLAINT: back pain HPI: Patient is a 52-year-old female with past medical history of seizures, syncope, small bowel obstruction, chronic back pain, insulin-dependent diabetes, liver cirrhosis who presents to the ER for lower back pain radiating into her right leg. She notes that she is fallen about 5 times since being discharged 2 days ago. She has been unable to get up off the floor since 9 PM last night. She was brought in by EMS. She admits to a mild headache. No neck pain. No chest pain or shortness of breath. No weakness or numbness in the upper extremities. She notes her left leg has been weak for the past 20 years. She has a fair amount of pain with movement of the right leg but denies any new weakness. Urinating and moving her bowels without difficulty. No fevers. PAST MEDICAL HISTORY:See Below PAST SURGICAL HISTORY:See Below FAMILY HISTORY:See Below SOCIAL HISTORY:See Below HOME MEDICATIONS:See Below ALLERGIES:See Below VITALS:See Below PHYSICAL EXAMINATION: GENERAL: Sitting up in bed, alert, well appearing, well nourished, no distress, non-toxic EYE EXAM: normal conjunctiva. PERRL and EOM's grossly intact. OROPHARYNX: no exudate, no erythema, lips, buccal mucosa, and tongue normal and mucous membranes are moist NECK: supple, no nuchal rigidity, no adenopathy, non-tender LUNGS: Clear to auscultation. Normal chest wall mechanics HEART: no murmurs, S1 normal and S2 normal ABDOMEN: abdomen soft, non-tender, normo-active bowel sounds, no masses, no rebound or guarding. BACK: Back is symmetrical on inspection and there is no deformity, no midline tenderness, no CVA tenderness. SKIN: no rashes and no bruising UPPER EXTREMITIES: upper extremities are grossly normal. LOWER EXTREMITIES: No pitting edema. NEURO EXAM: Normal sensorium, cranial nerves II-XII intact, normal speech, no weakness of arms, left lower extremity 3 out of 10 with flexion the hip and knee. Weakness also with plantar and dorsiflexion. Right lower extremity flexion-extension right hip knee. Ankle is 4 out of 5. No drift. Finger to nose intact. Gross sensation intact. Triage Nursing notes reviewed. Limited review of prior medical records performed Vital Signs: reviewed and remarkable for HTn and tachy Differential diagnosis: Cardiac ischemia, aortic dissection, pulmonary embolism, pneumothorax, pneumonia, pericarditis, myocarditis, esophageal rupture, GERD, cholecystitis, pancreatitis, musculoskeletal, as well as other pathologies. ER treatment provided: See below MEDICAL DECISION MAKING: Patient is a 52-year-old female who presents the ER for right hip pain, recurrent falls, 2 seizures and back pain. IV was established and blood work was obtained. Labs show no significant leukocytosis to suggest infection. No anemia. Platelets were slightly low at 115. There is no acidosis on the BMP. Glucose was elevated at 514 consistent with hyperglycemia. Patient was given 10 units of insulin and sugars trended down to 374. She was given a liter of IV fluids. Troponin was negative not indicative of ACS. Lipase was unremarkable. She does have weakness in her left lower extremity. This was old per the patient. CT head and lumbar spine showed no acute pathology. X-rays of the hip and pelvis per my read showed no acute fracture or dislocation. Patient was updated at bedside. As she notes she cannot ambulate or take care of herself at home and she lives at home alone by herself she has no assistance. I did discuss with care management and following this discussed with the hospitalist for further evaluation Dr.'s Peters. Again following review of the patient's presentation, social situation and data I feel this patient needs to be managed as an inpatient. Consultation(s): Discussed not any hospitalist as described above for admission. ER treatment provided: See below Diagnostics interpreted by me: -Cardiac Monitoring: An order was placed for continuous cardiac monitoring. The monitor shows a rate of 102 with sinus rhythm. -Laboratory studies:As stated above and show below. -Imaging studies: X-rays of the hip and pelvis show no acute fracture d islocation CTs of the head and lumbar spine showed no acute fracture Procedures:none Critical Care: None Past Med/Surg History Medical History Abdominal pain Acute hyperglycemia Anxiety Brain cyst Chest pain Chronic low back pain with left-sided sciatica Chronic obstructive pulmonary disease Dental abscess Depression Elevated lactic acid level Emphysema of lung Encounter for pre-operative examination Hx of blood clots Hyperglycemia Hyperglycemia Hyperglycemia due to type 2 diabetes mellitus Hypertension Hypokalemia Hypomagnesemia Hyponatremia Insulin dependent diabetes mellitus Lightheadedness Medication reaction Obesity Periapical abscess with facial involvement Pulmonary embolism Reports was anticoagulation x 60 days, not on chronic anticoagulation Syncope Thrombocytopenia Tinea corporis Tinea cruris Uncontrolled type 2 diabetes mellitus Surgical History History of laparoscopic cholecystectomy Hx of oral surgery (02/15/20) Acute right submandibular, submental space infection with floor of mouth infection caused by infected lower teeth. Dr. Rios 02/15/20 S/P dilation and curettage S/P laparoscopic hernia repair S/P laparoscopic procedure ovarian cyst surgery Family History Mother , 73 Heart disease Cancer small cell ca lung caused at 73 Father Skin cancer Brother No problems noted. Sister No problems noted. Grandmother (Maternal) , 48 Heart disease T2DM (type 2 diabetes mellitus) Grandmother (Paternal) , 83 Heart disease Kidney disease Uncle T2DM (type 2 diabetes mellitus) Other Diabetes Obesity Denies family history of Ovarian cancer Breast cancer Colorectal cancer Uterine cancer Social History Smoking Status: Former smoker Tobacco Type: Cigarettes Cigarettes Per Day: 5; Second Hand Exposure: Yes; Hx Alcohol Use: No Hx Substance Use: No Preferred Language: [place] Communication Ability: Effective Visual Impairment: No Limitations Hearing Ability: Normal Physical Education Specialist Required: No Beliefs That Will Affect Care: None marital status: Current Living Situation: Family Current Living Situation Comment: Lives with son (15yo) current occupational status: unemployed 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 How many Children do You have: 1 Feels Safe at Home: Yes Assistive Devices: Cane and Walker Allergies Allergies Allergy/AdvReac Type Severity Reaction Status Date / Time acetaminophen AdvReac Severe LIVER Verified 10/10/22 20:32 COMPLICATIONS cephalexin AdvReac Severe Vomiting Verified 10/10/22 20:32 levofloxacin [From Levaquin] AdvReac Intermediate Vomiting Verified 10/10/22 20:32 Home Meds Home Medications Medication Instructions Recorded Confirmed cyclobenzaprine 10 mg tablet 10 mg PO BID PRN Muscle Spasm ##0 11/18/17 10/12/22 albuterol sulfate 90 mcg/actuation 2 puff inhalation Q4H PRN 02/10/18 10/12/22 aerosol inhaler (Ventolin HFA) Shortness Of Breath Or Wheezing ##0 ibuprofen 800 mg tablet 800 mg PO TID PRN Pain 10/24/19 10/12/22 promethazine 25 mg tablet 25 mg PO Q6H PRN Nausea 10/24/19 10/12/22 fluticasone 232 mcg-salmeterol 14 2 inh inhalation BID PRN Shortness 08/21/20 10/12/22 mcg/actuation breath activated Of Breath powdr (AirDuo RespiClick) montelukast 10 mg tablet 10 mg PO HS 09/01/20 10/12/22 (Singulair) aspirin 81 mg tablet,delayed 81 mg PO QAM 10/28/20 10/12/22 release cyclosporine 0.05 % eye drops in a 2 drp ophthalmic (eye) Q12H 04/17/21 10/12/22 dropperette (Restasis) diclofenac sodium 1 % topical gel 4 g topical QID PRN Pain 07/20/21 10/12/22 albuterol sulfate 2.5 mg/3 mL 2.5 mg inhalation Q6 PRN Wheezing 01/19/22 10/12/22 (0.083 %) solution for nebulization famotidine 40 mg tablet 40 mg PO BID 01/19/22 10/12/22 fluticasone propionate 50 1 spray intranasal DAILY PRN 01/19/22 10/12/22 mcg/actuation nasal Congestion spray,suspension (Flonase Allergy Relief) lidocaine 5 % topical patch 1 patch transdermal DAILY PRN Pain 01/19/22 10/12/22 pantoprazole 20 mg tablet,delayed 20 mg PO QAM 01/19/22 10/12/22 release polyethylene glycol 3350 17 17 g PO BID 01/29/22 10/12/22 gram/dose oral powder (Miralax) trazodone 100 mg tablet 100 mg PO HS 01/29/22 10/12/22 duloxetine 60 mg capsule,delayed 60 mg PO HS 03/12/22 10/12/22 release gabapentin 800 mg tablet 800 mg PO TID 04/05/22 10/12/22 buspirone 5 mg tablet 5 mg PO QID 07/30/22 10/12/22 oxycodone 5 mg tablet 5 mg PO BID PRN Pain 07/30/22 10/12/22 insulin glargine 100 unit/mL (3 65 unit subcut BID 10/05/22 10/12/22 mL) subcutaneous pen (Lantus Solostar U-100 Insulin) dulaglutide 1.5 mg/0.5 mL 1.5 mg subcut UD 10/12/22 10/12/22 subcutaneous pen injector (Trulicity) nystatin 100,000 unit/gram topical 1 applic topical UD 10/12/22 10/12/22 powder ([facility]) Previous Rx's Medication Instructions Recorded levetiracetam 750 mg tablet 750 mg PO BID #60 tabs 04/06/22 (Keppra) ondansetron 4 mg disintegrating 4 mg PO Q6H PRN nausea and 08/11/22 tablet vomiting #12 tabs insulin aspart U-100 100 unit/mL 12 unit (0.12 mL) SC TID #15 mL 08/16/22 (3 mL) subcutaneous pen (Novolog Flexpen U-100 Insulin aspart) dulaglutide 4.5 mg/0.5 mL 4.5 mg (0.5 mL) subcut WK #2 mL 10/06/22 subcutaneous pen injector (Trulicity) etodolac 200 mg capsule 200 mg PO Q12H PRN pain #14 caps 10/10/22 Results & Data (ED) Vital Signs Vital Signs - 24 hr 10/12/22 10:10 10/12/22 10:49 10/12/22 12:32 Temperature 36.9 C Temperature Source Oral Pulse Rate 101 H 98 H 102 H Respiratory Rate 18 18 18 Blood Pressure 137/101 H Blood Pressure Mean 113 Pulse Oximetry 99 100 98 Oxygen Delivery Method Room Air Room Air Sepsis New/Unexplained Change in Mental Status N/A Sepsis Action Taken by Nursing No Action Required Laboratory Data 10/12/22 10:43 10/12/22 10:43 Lab Results 10/12/22 10/12/22 10/12/22 Range/Units 10:43 10:43 10:43 WBC 4.89 (4.8-10.8) K/ul RBC 4.48 (3.93-5.22) M/uL Hgb 14.4 (12.0-16.0) g/dl Hct 41.0 (34.1-44.9) % MCV 91.5 (80.0-100.0) fL MCH 32.1 (25.0-34.0) pg MCHC 35.1 (32.0-36.0) g/dL RDW Std Deviation 44.6 (36.4-46.3) fL RDW Coeff of Kelli 13.2 (11.5-14.5) % Plt Count 115 L (130-400) K/uL MPV 11.3 (9.4-12.3) fL Immature Gran % (Auto) 0.2 % Neut % (Auto) 57.5 % Lymph % (Auto) 32.9 % Bryan % (Auto) 7.0 % Eos % (Auto) 1.8 % Baso % (Auto) 0.6 % Neut # (Auto) 2.81 (1.4-6.5) K/uL Lymph # (Auto) 1.61 (1.2-3.4) K/uL Bryan # (Auto) 0.34 (0.24-0.82) K/uL Eos # (Auto) 0.09 (0-0.50) K/uL Baso # (Auto) 0.03 (0-0.2) K/uL Immature Gran # (Auto) 0.01 (0.00-0.02) K/uL Tear Drop Cells 1+ Sodium 138 (136-145) mmol/L Potassium 3.6 (3.5-5.1) mmol/L Chloride 103 (98-107) mmol/L Carbon Dioxide 27 (21-32) mmol/L Anion Gap 8 (3-11) BUN 6 (6-23) mg/dl Creatinine 0.64 (0.6-1.2) mg/dl Est Cr Clr Drug Dosing 117.7 ml/min Est GFR ( Amer) 117.3 ml/min Est GFR (Non-Af Amer) 101.2 ml/min BUN/Creatinine Ratio 9.4 L (10-20) Glucose 514 H* (70-99(Fasting)) mg/dl POC Glucose (70-99) mg/dl Calcium 9.6 (8.5-10.1) mg/dl Total Bilirubin 0.6 (0.2-1.0) mg/dl AST 23 (13-39) U/L ALT 23 (7-52) U/L Alkaline Phosphatase 130 H (34-104) U/L Total Creatine Kinase (26-192) U/L Troponin I High Sens (0-14) pg/ml Total Protein 6.6 (6.0-8.3) gm/dl Albumin 3.6 (3.4-5.0) gm/dl Globulin 3.0 (2.5-4.0) gm/dl Albumin/Globulin Ratio 1.2 (0.9-2) Lipase 9 L (11-82) U/L SARS-CoV-2, RNA, NAAT NEGATIVE (NEGATIVE) 10/12/22 10/12/22 10/12/22 Range/Units 10:43 12:07 12:55 WBC (4.8-10.8) K/ul RBC (3.93-5.22) M/uL Hgb (12.0-16.0) g/dl Hct (34.1-44.9) % MCV (80.0-100.0) fL MCH (25.0-34.0) pg MCHC (32.0-36.0) g/dL RDW Std Deviation (36.4-46.3) fL RDW Coeff of Kelli (11.5-14.5) % Plt Count (130-400) K/uL MPV (9.4-12.3) fL Immature Gran % (Auto) % Neut % (Auto) % Lymph % (Auto) % Bryan % (Auto) % Eos % (Auto) % Baso % (Auto) % Neut # (Auto) (1.4-6.5) K/uL Lymph # (Auto) (1.2-3.4) K/uL Bryan # (Auto) (0.24-0.82) K/uL Eos # (Auto) (0-0.50) K/uL Baso # (Auto) (0-0.2) K/uL Immature Gran # (Auto) (0.00-0.02) K/uL Tear Drop Cells Sodium (136-145) mmol/L Potassium (3.5-5.1) mmol/L Chloride (98-107) mmol/L Carbon Dioxide (21-32) mmol/L Anion Gap (3-11) BUN (6-23) mg/dl Creatinine (0.6-1.2) mg/dl Est Cr Clr Drug Dosing ml/min Est GFR ( Amer) ml/min Est GFR (Non-Af Amer) ml/min BUN/Creatinine Ratio (10-20) Glucose (70-99(Fasting)) mg/dl POC Glucose 481 H* 374 H* (70-99) mg/dl Calcium (8.5-10.1) mg/dl Total Bilirubin (0.2-1.0) mg/dl AST (13-39) U/L ALT (7-52) U/L Alkaline Phosphatase (34-104) U/L Total Creatine Kinase 188 (26-192) U/L Troponin I High Sens 5.4 (0-14) pg/ml Total Protein (6.0-8.3) gm/dl Albumin (3.4-5.0) gm/dl Globulin (2.5-4.0) gm/dl Albumin/Globulin Ratio (0.9-2) Lipase (11-82) U/L SARS-CoV-2, RNA, NAAT (NEGATIVE) Administered Medications Insulin Aspart (Insulin Aspart Per Unit) 0 units SC Q4H YEN Stop: 10/12/22 17:16 Last Admin: 10/12/22 13:26 Dose: 16 units Documented By: RHIANNA Co-signed By: NANETTE Discontinued Medications Buspirone HCl (Buspirone 5 Mg Tab) 5 mg PO NOW STA Stop: 10/12/22 13:39 Last Admin: 10/12/22 13:59 Dose: 5 mg Documented By: RHIANNA Gabapentin (Gabapentin 800 Mg Tab) 800 mg PO NOW ONE Stop: 10/12/22 13:40 Last Admin: 10/12/22 13:59 Dose: 800 mg Documented By: RHIANNA Sodium Chloride (Nss 1000ml) 1,000 mls @ 999 mls/hr IV .Q1H1M ONE Stop: 10/12/22 12:49 Last Infusion: 10/12/22 13:41 Dose: 0 mls/hr Documented By: Admin: 10/12/22 12:18 Dose: 999 mls/hr Documented By: NANETTE Levetiracetam 1,000 mg/ Sodium (Chloride) 110 mls @ 440 mls/hr IV NOW STA Stop: 10/12/22 12:13 Last Infusion: 10/12/22 13:10 Dose: 0 mls/hr Documented By: Admin: 10/12/22 12:40 Dose: 440 mls/hr Documented By: RHIANNA Insulin Human Regular (Novolin-R Insulin Per Unit Charge) 10 units IV NOW STA Stop: 10/12/22 11:49 Last Admin: 10/12/22 12:03 Dose: 10 units Documented By: NANETTE Co-signed By: CORIE Ketorolac Tromethamine (Ketorolac Tromethamine 15 Mg/Ml Vial) 15 mg IV NOW ONE Stop: 10/12/22 13:39 Last Admin: 10/12/22 13:59 Dose: 15 mg Documented By: RHIANNA Oxycodone HCl (Oxycodone Hcl Ir 5 Mg Tab (Immediate Release)) 5 mg PO NOW STA Stop: 10/12/22 13:39 Last Admin: 10/12/22 13:59 Dose: 5 mg Documented By: RHIANNA Imaging Data Radiologist's Impression: Hip/Pelvis X-Ray 10/12/22 10:32 SINGLE VIEW PELVIS; 2 VIEWS RIGHT HIP CLINICAL HISTORY: Right hip pain. FINDINGS: AP views of the pelvis with AP and frog-leg views of the right hip are compared to study dated 10/10/2022. The skeletal structures are well mineralized. There is no radiographic evidence of acute fracture involving the hips or bony pelvis. Minimal degenerative change is noted in the hips. There is mild degenerative sclerosis of the sacroiliac joints. Small enthesophytes arise from the anterior superior iliac spines. Mild degenerative change is partially imaged in the lumbar spine. The overlying soft tissues are within normal limits. An intrauterine device is noted in the pelvis. IMPRESSION: No acute bony abnormality is identified and there has been no significant change from 10/10/2022. Electronically signed by: Kumar Caldwell M.D. 10/12/2022 12:[address] 10/12/22 10:34 CT SCAN OF THE LUMBAR SPINE WITHOUT IV CONTRAST CLINICAL HISTORY: Recent falls. Low back pain. COMPARISON STUDY: CT of the lumbar spine dated 02/20/2022. MRI of the lumbar spine dated 08/29/2018. TECHNIQUE: CT scan of the lumbar spine is performed from the lower thoracic spine to the sacrum. Images are reviewed in the axial, sagittal, and coronal planes. IV contrast was not administered for this examination. A dose lowering technique was utilized adhering to the principles of ALARA. CT DOSE: 686.67 mGy.cm FINDINGS: The skeletal structures are well mineralized. There is no evidence of fracture or malalignment involving the lumbar spine. Vertebral body height and alignment are maintained. Tiny anterior osteophytes are seen throughout. The transverse and spinous processes appear intact. There is no spondylolysis. No lytic or blastic lesion is seen. There is mild multilevel degenerative disc space narrowing, greatest from L3-L4 through L5-S1. Broad-based posterior disc bulges at L3-L4 and L4-L5 contribute to at least moderate central canal stenosis. There is also a small posterior disc osteophyte complex at L5-S1. These findings are similar to previous. Mild facet arthropathy is seen in the lower lumbar region. The visualized sacrum and bony pelvis appear intact. Large Tarlov cysts are unchanged with bony remodeling of the underlying sacrum. The paraspinous soft tissues are normal as visualized. There is moderate ather osclerotic calcification of the abdominal aorta which is normal in caliber. No retroperitoneal lymphadenopathy is seen. IMPRESSION: 1. No acute bony abnormality is seen involving the lumbar spine. 2. Degenerative disc disease as above. This is similar to prior studies. ACT 112: Negative or not required by law. Dictated: 10/12/2022 11:48 AM Transcribed: 10/12/2022 11:58 AM Arelis [id number] SONAL_Barbara Electronically signed by: Kumar Caldwell M.D. 10/12/2022 12:[address] 10/12/22 12:00 CT SCAN OF THE BRAIN WITHOUT IV CONTRAST CLINICAL HISTORY: Fall. COMPARISON STUDY: CT of the brain dated 03/06/2022. TECHNIQUE: Unenhanced axial CT scan of the brain is performed from the vertex to the skull base. A dose lowering technique was utilized adhering to the principles of ALARA. CT DOSE: 614.27 mGy.cm FINDINGS: Brain parenchyma: The brain parenchyma is normal in appearance. There is no hemorrhage, mass effect, or evidence of acute territorial ischemia by CT criteria. Broewr-white matter differentiation is preserved. No extra-axial fluid collection is seen. Ventricles, sulci, cisterns: Normal in configuration. Intracranial vasculature: The visualized intracranial vasculature at the skull base is normal in appearance. Calvarium: Unremarkable. Sinuses and mastoids: The paranasal sinuses are clear. The mastoid air cells are well pneumatized. Orbits: The bony orbits are grossly intact. IMPRESSION: No acute intracranial abnormality ACT 112: Negative or not required by law. Electronically signed by: Kumar Caldwell M.D. 10/12/2022 12:38 PM Discharge Plan Visit Data Chief Complaint: Illness Stated Complaint: REEVAL. HIP PAIN, ED Provider: Mike Hurtado Discharge Problem: Acute hyperglycemia, Seizure, Acute hip pain, Ambulatory dysfunction Forms Stand Alone Forms: [facility] [employer] Surveillance Prescriptions Prescriptions: No Action cyclobenzaprine 10 mg Tablet 10 mg PO BID PRN (Reason: Muscle Spasm) Qty: 0 albuterol sulfate [Ventolin HFA] 90 mcg/actuation Hfa Aerosol Inhaler 2 puff INHALATION Q4H PRN (Reason: Shortness Of Breath Or Wheezing) Qty: 0 Trulicity 4.5 mg/0.5 mL pen injector 4.5 mg SUBCUT WK Qty: 2 1RF Rx Instructions: TUESDAYS-- montelukast [Singulair] 10 mg tablet 10 mg PO HS insulin glargine [Lantus Solostar U-100 Insulin] 100 unit/mL (3 mL) insulin pen 65 unit subcut BID fluticasone propion-salmeterol [AirDuo RespiClick] 232-14 mcg/actuation aerosol powdr breath activated 2 inh inhalation BID PRN (Reason: Shortness Of Breath) ibuprofen 800 mg tablet 800 mg PO TID PRN (Reason: Pain) promethazine 25 mg tablet 25 mg PO Q6H PRN (Reason: Nausea) aspirin 81 mg Tablet,Delayed Release (Dr/Ec) 81 mg PO QAM cyclosporine [Restasis] 0.05 % Dropperette 2 drp OPHTHALMIC (EYE) Q12H duloxetine 60 mg capsule,delayed release(DR/EC) 60 mg PO HS oxycodone 5 mg Tablet 5 mg PO BID PRN (Reason: Pain) buspirone 5 mg tablet 5 mg PO QID insulin aspart U-100 [Novolog Flexpen U-100 Insulin] 100 unit/mL (3 mL) insulin pen 12 unit SC TID Qty: 15 0RF Rx Instructions: plus sliding scale etodolac 200 mg capsule 200 mg PO Q12H PRN (Reason: pain) Qty: 14 0RF Trulicity 1.5 mg/0.5 mL pen injector 1.5 mg SUBCUT UD nystatin [Nyamyc] 100,000 unit/gram powder 1 applic TOPICAL UD diclofenac sodium 1 % Gel 4 g TOPICAL QID PRN (Reason: Pain) albuterol sulfate 2.5 mg /3 mL (0.083 %) solution for nebulization 2.5 mg inhalation Q6 PRN (Reason: Wheezing) famotidine 40 mg tablet 40 mg PO BID pantoprazole 20 mg tablet,delayed release (DR/EC) 20 mg PO QAM lidocaine 5 % adhesive patch,medicated 1 patch transdermal DAILY PRN (Reason: Pain) fluticasone propionate [Flonase Allergy Relief] 50 mcg/actuation spray,suspension 1 spray INTRANASAL DAILY PRN (Reason: Congestion) trazodone 100 mg tablet 100 mg PO HS polyethylene glycol 3350 [Miralax] 17 gram/dose Powder 17 g PO BID gabapentin 800 mg tablet 800 mg PO TID levetiracetam [Keppra] 750 mg tablet 750 mg PO BID Qty: 60 0RF ondansetron 4 mg tablet,disintegrating 4 mg PO Q6H PRN (Reason: nausea and vomiting) Qty: 12 0RF Referrals Referrals: Aneudy Pérez MD [Primary Care Provider] -
[2022-10-12 11:28] LABS: Basophils # (auto) 0.03 K/uL (0-0.2); Basophils % (auto) 0.6 %; Eosinophils # (auto) 0.09 K/uL (0-0.50); Eosinophils % (auto) 1.8 %; Hemoglobin 14.4 g/dl (12.0-16.0); Immature Granulocytes # (auto) 0.01 K/uL (0.00-0.02); Immature Granulocytes % (auto) 0.2 %; Lymphocytes # (auto) 1.61 K/uL (1.2-3.4); Lymphocytes % (auto) 32.9 %; Mean Corpuscular Hemoglobin 32.1 pg (25.0-34.0); Mean Corpuscular Hgb Conc 35.1 g/dL (32.0-36.0); Mean Corpuscular Volume 91.5 fL (80.0-100.0); Mean Platelet Volume 11.3 fL (9.4-12.3); Monocytes # (auto) 0.34 K/uL (0.24-0.82); Neutrophils # (auto) 2.81 K/uL (1.4-6.5); Neutrophils % (auto) 57.5 %; Platelet Count 115 K/uL (130-400); RDW Coefficient of Variation 13.2 % (11.5-14.5); RDW Standard Deviation 44.6 fL (36.4-46.3); Red Blood Count 4.48 M/uL (3.93-5.22); Tear Drop Cells 1+; White Blood Count 4.89 K/ul (4.8-10.8)
[2022-10-12 11:45] LABS: Albumin Globulin Ratio 1.2 (0.9-2); Albumin Level 3.6 gm/dl (3.4-5.0); BUN Creatinine Ratio 9.4 (10-20); Bilirubin,Total 0.6 mg/dl (0.2-1.0); Calcium 9.6 mg/dl (8.5-10.1); Creatinine Clr Calc Pharmacy 117.7 ml/min; Est GFR (African American) 117.3 ml/min; Est GFR (Non-African American) 101.2 ml/min; Potassium 3.6 mmol/L (3.5-5.1); Total Protein 6.6 gm/dl (6.0-8.3)
[2022-10-12] MEDS ORDERED: NovoLIN-R INSULIN PER UNIT CHARGE IV STA (11:48)
[2022-10-12] MEDS ORDERED: SODIUM CHLORIDE 0.9% 1000ML 1,000 ML IV ONE (11:49)
[2022-10-12] MEDS ORDERED: levETIRAcetam 1,000 MG in 0.9 % SODIUM CHLORIDE 100 ML IV STA (11:59)
--- NOTE | 2022-10-12 12:02 | CT Scan Report ---
CT SCAN OF THE LUMBAR SPINE WITHOUT IV CONTRAST CLINICAL HISTORY: Recent falls. Low back pain. COMPARISON STUDY: CT of the lumbar spine dated 02/20/2022. MRI of the lumbar spine dated 08/29/2018. TECHNIQUE: CT scan of the lumbar spine is performed from the lower thoracic spine to the sacrum. Imag es are reviewed in the axial, sagittal, and coronal planes. IV contrast was not administered for this examination. A dose lowering technique was utilized adhering to the principles of ALARA. CT DOSE: 686.67 mGy.cm FINDINGS: The skeletal structures are well mineralized. There is no evidence of fracture or malalignm ent involving the lumbar spine. Vertebral body height and alignment are maintained. Tiny anterior ost eophytes are seen throughout. The transverse and spinous processes appear intact. There is no spondyl olysis. No lytic or blastic lesion is seen. There is mild multilevel degenerative disc space narrowin g, greatest from L3-L4 through L5-S1. Broad-based posterior disc bulges at L3-L4 and L4-L5 contribute to at least moderate central canal stenosis. There is also a small posterior disc osteophyte complex at L5-S1. These findings are similar to previous. Mild facet arthropathy is seen in the lower lumbar region. The visualized sacrum and bony pelvis appear intact. Large Tarlov cysts are unchanged with b jax remodeling of the underlying sacrum. The paraspinous soft tissues are normal as visualized. There is moderate atherosclerotic calcification of the abdominal aorta which is normal in caliber. No retr operitoneal lymphadenopathy is seen. IMPRESSION: 1. No acute bony abnormality is seen involving the lumbar spine. 2. Degenerative disc disease as above. This is similar to prior studies. ACT 112: Negative or not required by law. Dictated: 10/12/2022 11:48 AM Transcribed: 10/12/2022 11:58 AM Arelis [id number] SONAL_Barbara Electronically signed by: Kumar Caldwell M.D. 10/12/2022 12:01 PM
--- NOTE | 2022-10-12 12:04 | XRay Report ---
SINGLE VIEW PELVIS; 2 VIEWS RIGHT HIP CLINICAL HISTORY: Right hip pain. FINDINGS: AP views of the pelvis with AP and frog-leg views of the right hip are compared to study da krystle 10/10/2022. The skeletal structures are well mineralized. There is no radiographic evidence of acut e fracture involving the hips or bony pelvis. Minimal degenerative change is noted in the hips. There is mild degenerative sclerosis of the sacroiliac joints. Small enthesophytes arise from the anterior superior iliac spines. Mild degenerative change is partially imaged in the lumbar spine. The overlyi ng soft tissues are within normal limits. An intrauterine device is noted in the pelvis. IMPRESSION: No acute bony abnormality is identified and there has been no significant change from 10/10. Electronically signed by: Kumar Caldwell M.D. 10/12/2022 12:03 PM
--- NOTE | 2022-10-12 12:14 | History & Physical Report ---
Date of Service October 12, 2022 Assessment & Plan (1) Acute hyperglycemia: Plan: - Patient presented with a blood sugar of 514 despite reported compliance with her medications which include Lantus 80 units twice daily, NovoLog 12 units 3 times daily, and Trulicity. - Does not appear to be DKA/HHS, anion gap is 8. - She has had multiple visits in the past several months for similar presentation. Suspect there is component of noncompliance. She admits she has not had any of her regular medications since 5 PM this evening due to being on the ground and not being able to get to them. - Received 10 units regular insulin in ED, repeat sugar down to 374, therefore w ill defer on insulin drip and further correct with Lantus and NovoLog. Give a.m. dose of Lantus now. - A1c 10.7% on 08/13, indicates uncontrolled diabetes despite reported compliance with insulin and Trulicity. - N.p.o. for now. IV fluids. General diet only this evening (2) Acute hip pain: Plan: - Patient has a history of ongoing hip pain and sciatica, reports in the past 20 years she has been battling with this but over the last 9 days it is significantly worsened leading to falls over the past 2 days. - Hip x-ray, lumbar CT scan, head CT all unremarkable for acute injury. 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 - We will continue patient's home medications for pain management, including cyclobenzaprine, lidocaine patches, Voltaren gel, duloxetine NSAIDs, gabapentin, oxycodone. - PT/OT to work with patient while admitted, suspect she may need placement if she is unable to ambulate safely at home and care for self. (3) Seizure: Plan: - Patient has history of seizure disorders, reported an episode at home despite compliance with her Keppra. - Loaded with a dose of IV Keppra in ED, will continue Keppra 750 mg twice daily. (4) Chronic low back pain with left-sided sciatica: Plan: - Obesity, sciatica, Tarlov cysts at L5-S1. Management as above, see "acute pain ". (5) Chronic obstructive pulmonary disease: Plan: - No evidence of acute exacerbation today, continue home inhalers, Flonase, Singulair. (6) Insulin dependent diabetes mellitus: Plan: - TAP GRINDER> 65 units Lantus twice daily, NovoLog 12 units 3 times daily with meals, Trulicity weekly. - Patient has followed up with diabetes clinic, there is suspicion for noncompliance given her chronically elevated sugars to the 400-600 we will despite reported compliance with her insulin. - Management of acute hyperglycemia as above, will consult pharmacy to assist with hyperglycemic management during this admission. (7) Liver cirrhosis: Plan: - Reported history of, and has followed with hepatology previously, however has not seen them for the past year. - LFTs within normal limits on admission. Plan - Admit to PCU given reports of seizure. - SCDs, Lovenox for VTE ppx. - Full code. History of Present Illness Chief Complaint: Right hip pain, several falls at home over the past 2 days Primary Care Provider: Aneudy Pérez MD Elza Vick is a 52-year-old female with a past medical history significant for seizures, syncopal episodes, chronic back pain, insulin-dependent diabetes, liver cirrhosis who is presenting to the ED today for low back pain. Patient was seen in our ED 2 days ago for right-sided hip pain that started 9 days ago. Seemingly came out of nowhere, without any recent falls or trauma. Work-up was negative at the time for any acute process and she was discharged home in stable condition, however notes she has fallen 5 times since then, had a seizure at home, and has been lying on floor since 9 PM last night. Complains of significant pain when moving her right leg and a mild headache, otherwise denies pain elsewhere. No bowel or bladder incontinence or retention, no saddle anesthesia. Denies fevers, chest pain, palpitation, shortness of breath, weakness, or numbness anywhere other than her right leg which has been ongoing issue for the past 20 years. On presentation to the ED, her vital signs are within normal limits and stable. Presenting glucose on BMP is 514, anion gap 8. Labs otherwise unremarkable, no electrolyte abnormalities, renal function and hepatic function at baseline. Right hip/pelvic XR does not identify any acute bony abnormality, lumbar spine CT shows degenerative disc disease seen previously, otherwise no acute bony abnormality. Head CT unremarkable. Allergies Allergy/AdvReac Type Severity Reaction Status Date / Time acetaminophen AdvReac Severe LIVER Verified 10/10/22 20:32 COMPLICATIONS cephalexin AdvReac Severe Vomiting Verified 10/10/22 20:32 levofloxacin [From [facility]] AdvReac Intermediate Vomiting Verified 10/10/22 20:32 Home Medications Medication Instructions Recorded Confirmed Type cyclobenzaprine 10 mg tablet 10 mg PO BID PRN Muscle Spasm ##0 11/18/17 10/12/22 History albuterol sulfate 90 mcg/actuation 2 puff inhalation Q4H PRN 02/10/18 10/12/22 History aerosol inhaler (Ventolin HFA) Shortness Of Breath Or Wheezing ##0 ibuprofen 800 mg tablet 800 mg PO TID PRN Pain 10/24/19 10/12/22 History promethazine 25 mg tablet 25 mg PO Q6H PRN Nausea 10/24/19 10/12/22 History fluticasone 232 mcg-salmeterol 14 2 inh inhalation BID PRN Shortness 08/21/20 10/12/22 History mcg/actuation breath activated Of Breath powdr (AirDuo RespiClick) montelukast 10 mg tablet 10 mg PO HS 09/01/20 10/12/22 History (Singulair) aspirin 81 mg tablet,delayed 81 mg PO QAM 10/28/20 10/12/22 History release cyclosporine 0.05 % eye drops in a 2 drp ophthalmic (eye) Q12H 04/17/21 10/12/22 History dropperette (Restasis) diclofenac sodium 1 % topical gel 4 g topical QID PRN Pain 07/20/21 10/12/22 History albuterol sulfate 2.5 mg/3 mL 2.5 mg inhalation Q6 PRN Wheezing 01/19/22 10/12/22 History (0.083 %) solution for nebulization famotidine 40 mg tablet 40 mg PO BID 01/19/22 10/12/22 History fluticasone propionate 50 1 spray intranasal DAILY PRN 01/19/22 10/12/22 History mcg/actuation nasal Congestion spray,suspension (Flonase Allergy Relief) lidocaine 5 % topical patch 1 patch transdermal DAILY PRN Pain 01/19/22 10/12/22 History pantoprazole 20 mg tablet,delayed 20 mg PO QAM 01/19/22 10/12/22 History release polyethylene glycol 3350 17 17 g PO BID 01/29/22 10/12/22 History gram/dose oral powder (Miralax) trazodone 100 mg tablet 100 mg PO HS 01/29/22 10/12/22 History duloxetine 60 mg capsule,delayed 60 mg PO HS 03/12/22 10/12/22 History release gabapentin 800 mg tablet 800 mg PO TID 04/05/22 10/12/22 History levetiracetam 750 mg tablet 750 mg PO BID #60 tabs 04/06/22 10/12/22 Rx (Keppra) buspirone 5 mg tablet 5 mg PO QID 07/30/22 10/12/22 History oxycodone 5 mg tablet 5 mg PO BID PRN Pain 07/30/22 10/12/22 History ondansetron 4 mg disintegrating 4 mg PO Q6H PRN nausea and 08/11/22 10/12/22 Rx tablet vomiting #12 tabs insulin aspart U-100 100 unit/mL 12 unit (0.12 mL) SC TID #15 mL 08/16/22 10/12/22 Rx (3 mL) subcutaneous pen (Novolog Flexpen U-100 Insulin aspart) insulin glargine 100 unit/mL (3 65 unit subcut BID 10/05/22 10/12/22 History mL) subcutaneous pen (Lantus Solostar U-100 Insulin) dulaglutide 4.5 mg/0.5 mL 4.5 mg (0.5 mL) subcut WK #2 mL 10/06/22 10/12/22 Rx subcutaneous pen injector (Trulicity) etodolac 200 mg capsule 200 mg PO Q12H PRN pain #14 caps 10/10/22 10/12/22 Rx dulaglutide 1.5 mg/0.5 mL 1.5 mg subcut UD 10/12/22 10/12/22 History subcutaneous pen injector (Trulicity) nystatin 100,000 unit/gram topical 1 applic topical UD 10/12/22 10/12/22 History powder (Nyamyc) Past Med/Surg History Medical History Abdominal pain Acute hyperglycemia Anxiety Brain cyst Chest pain Chronic low back pain with left-sided sciatica Chronic obstructive pulmonary disease Dental abscess Depression Elevated lactic acid level Emphysema of lung Encounter for pre-operative examination Hx of blood clots Hyperglycemia Hyperglycemia Hyperglycemia due to type 2 diabetes mellitus Hypertension Hypokalemia Hypomagnesemia Hyponatremia Insulin dependent diabetes mellitus Lightheadedness Medication reaction Obesity Periapical abscess with facial involvement Pulmonary embolism Reports was anticoagulation x 60 days, not on chronic anticoagulation Syncope Thrombocytopenia Tinea corporis Tinea cruris Uncontrolled type 2 diabetes mellitus Surgical History History of laparoscopic cholecystectomy Hx of oral surgery (02/15/20) Acute right submandibular, submental space infection with floor of mouth infection caused by infected lower teeth. Dr. Rios 02/15/20 S/P dilation and curettage S/P laparoscopic hernia repair S/P laparoscopic procedure ovarian cyst surgery Family History Mother , 73 Heart disease Cancer small cell ca lung caused at 73 Father Skin cancer Brother No problems noted. Sister No problems noted. Grandmother (Maternal) , 48 Heart disease T2DM (type 2 diabetes mellitus) Grandmother (Paternal) , 83 Heart disease Kidney disease Uncle T2DM (type 2 diabetes mellitus) Other Diabetes Obesity Denies family history of Ovarian cancer Breast cancer Colorectal cancer Uterine cancer Social History Smoking Status: Former smoker Tobacco Type: Cigarettes Cigarettes Per Day: 5; Second Hand Exposure: Yes; Hx Alcohol Use: No Hx Substance Use: No Preferred Language: Turkmen Communication Ability: Effective Visual Impairment: No Limitations Hearing Ability: Normal Family Medicine Resident Required: No Beliefs That Will Affect Care: Anabaptism Anabaptism Beliefs: Gnosticism marital status: Current Living Situation: Family Current Living Situation Comment: Lives with son (15yo) current occupational status: unemployed 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 How many Children do You have: 1 Feels Safe at Home: Yes Assistive Devices: Walker Review of Systems Review of Systems: Constitutional: No fever/chills, weakness, fatigue, myalgias, anorexia, night sweats Eyes: No diplopia, no worsening or blurred vision ENT: normal hearing, no trouble swallowing Respiratory: No cough, sputum, dyspnea at rest or on exertion Cardiovascular: No chest pain, tightness or palpitations Abdomen: No pain, nausea, vomiting, diarrhea or constipation : Denies dysuria, hematuria, increased urgency/frequency, urinary retention Musculoskeletal: Low back and right leg pain that radiates down to the leg acutely worsened over the past 1 week Neurologic: No weakness, numbness/tingling, or balance problems Psychiatric: No anxiety or depression Skin: No rash or itch Physical Exam Physical Exam: General: awake, alert, no apparent distress Head: Normocephalic, atraumatic ENT: PERRL, EOMI, no pharyngeal exudate, mucous membranes moist Chest: Clear to auscultation, on room air, no adventitious breath sounds Cardiac: Regular rate and rhythm, no murmur, no JVD, normal peripheral pulses, good capillary refill Abdominal: NABS x 4 quadrants, soft, nontender to palpation, no rebound, guarding or tenderness Extremities: Low back TTP along spine, right hip painful with flexion and extension; Strength intact bilaterally Psych: Normal mood and affect Neuro: AAO x 3, strength intact bilaterally and rated 5/5, no motor deficits, speech is clear, no peripheral sensory deficits Skin: no rash or erythema Results & Data Results & Data ([facility]) Vital Signs (Past 12 Hours) Vital Signs Temp Pulse Resp BP Pulse Ox O2 Del Method 10/12/22 10:49 98 H 18 100 Room Air 10/12/22 10:10 36.9 C 101 H 18 137/101 H 99 Room Air Laboratory Results Abnormal lab results 10/12/22 10/12/22 10/12/22 Range/Units 10:43 10:43 12:07 Plt Count 115 L (130-400) K/uL BUN/Creatinine Ratio 9.4 L (10-20) Glucose 514 H* (70-99(Fasting)) mg/dl POC Glucose 481 H* (70-99) mg/dl Alkaline Phosphatase 130 H (34-104) U/L Lipase 9 L (11-82) U/L 10/12/22 Range/Units 12:55 Plt Count (130-400) K/uL BUN/Creatinine Ratio (10-20) Glucose (70-99(Fasting)) mg/dl POC Glucose 374 H* (70-99) mg/dl Alkaline Phosphatase (34-104) U/L Lipase (11-82) U/L Diagnostic Findings Hip/Pelvis X-Ray 10/12/22 10:32 SINGLE VIEW PELVIS; 2 VIEWS RIGHT HIP CLINICAL HISTORY: Right hip pain. FINDINGS: AP views of the pelvis with AP and frog-leg views of the right hip are compared to study dated 10/10/2022. The skeletal structures are well mineralized. There is no radiographic evidence of acute fracture involving the hips or bony pelvis. Minimal degenerative change is noted in the hips. There is mild degenerative sclerosis of the sacroiliac joints. Small enthesophytes arise from the anterior superior iliac spines. Mild degenerative change is partially imaged in the lumbar spine. The overlying soft tissues are within normal limits. An intrauterine device is noted in the pelvis. IMPRESSION: No acute bony abnormality is identified and there has been no significant change from 10/10/2022. Electronically signed by: Kumar Caldwell M.D. 10/12/2022 12:[address] 10/12/22 10:34 CT SCAN OF THE LUMBAR SPINE WITHOUT IV CONTRAST CLINICAL HISTORY: Recent falls. Low back pain. COMPARISON STUDY: CT of the lumbar spine dated 02/20/2022. MRI of the lumbar spine dated 08/29/2018. TECHNIQUE: CT scan of the lumbar spine is performed from the lower thoracic spine to the sacrum. Images are reviewed in the axial, sagittal, and coronal planes. IV contrast was not administered for this examination. A dose lowering technique was utilized adhering to the principles of ALARA. CT DOSE: 686.67 mGy.cm FINDINGS: The skeletal structures are well mineralized. There is no evidence of fracture or malalignment involving the lumbar spine. Vertebral body height and alignment are maintained. Tiny anterior osteophytes are seen throughout. The transverse and spinous processes appear intact. There is no spondylolysis. No lytic or blastic lesion is seen. There is mild multilevel degenerative disc space narrowing, greatest from L3-L4 through L5-S1. Broad-based posterior disc bulges at L3-L4 and L4-L5 contribute to at least moderate central canal stenosis. There is also a small posterior disc osteophyte complex at L5-S1. These findings are similar to previous. Mild facet arthropathy is seen in the lower lumbar region. The visualized sacrum and bony pelvis appear intact. Large Tarlov cysts are unchanged with bony remodeling of the underlying sacrum. The paraspinous soft tissues are normal as visualized. There is moderate atherosclerotic calcification of the abdominal aorta which is normal in caliber. No retroperitoneal lymphadenopathy is seen. IMPRESSION: 1. No acute bony abnormality is seen involving the lumbar spine. 2. Degenerative disc disease as above. This is similar to prior studies. ACT 112: Negative or not required by law. Dictated: 10/12/2022 11:48 AM Transcribed: 10/12/2022 11:58 AM Arelis [id number] SONAL_Barbara Electronically signed by: Kumar Caldwell M.D. 10/12/2022 12:[address] 10/12/22 12:00 CT SCAN OF THE BRAIN WITHOUT IV CONTRAST CLINICAL HISTORY: Fall. COMPARISON STUDY: CT of the brain dated 03/06/2022. TECHNIQUE: Unenhanced axial CT scan of the brain is performed from the vertex to the skull base. A dose lowering technique was utilized adhering to the principles of ALARA. CT DOSE: 614.27 mGy.cm FINDINGS: Brain parenchyma: The brain parenchyma is normal in appearance. There is no hemorrhage, mass effect, or evidence of acute territorial ischemia by CT criter ia. Brower-white matter differentiation is preserved. No extra-axial fluid collection is seen. Ventricles, sulci, cisterns: Normal in configuration. Intracranial vasculature: The visualized intracranial vasculature at the skull base is normal in appearance. Calvarium: Unremarkable. Sinuses and mastoids: The paranasal sinuses are clear. The mastoid air cells are well pneumatized. Orbits: The bony orbits are grossly intact. IMPRESSION: No acute intracranial abnormality ACT 112: Negative or not required by law. Electronically signed by: Kumar Caldwell M.D. 10/12/2022 12:38 PM Code Status & VTE Plan Code Status Full Code. Supervising Physician Co-Signing Physician Notes Patient seen and examined at bedside. During face to face encounter, I performed a physical examination and clinical history. Patient will be admitted for hyperglycemia and right hip pain. Insulin as above. will consult PT/OT I discussed plan of care with APC Gong and patient. I reviewed above note and agree with it. PG Care Time/CCT Total # of Minutes Spent Total Time Spent with Patient: Total time spent is greater than 50% in coordination of care (as documented) at patient's floor/unit and/or counseling patient: Coding Level of Care Code 96404 INT INP/OBS CARE 3/75MIN Diagnoses Acute hyperglycemia R73.9 Acute hip pain M25.551 Laterality: right Seizure R56.9 Chronic low back pain with left-sided sciatica M54.42; G89.29 Chronic obstructive pulmonary disease J44.9 Insulin dependent diabetes mellitus E11.9; Z79.4 Liver cirrhosis K74.60 Hepatic cirrhosis type: unspecified hepatic cirrhosis (1) Acute hip pain Laterality: right Qualified Code(s): M25.551 - Pain in right hip (2) Liver cirrhosis Hepatic cirrhosis type: unspecified hepatic cirrhosis
[2022-10-12] MEDS ORDERED: GLUCOSE 10 TAB/TUBE PO PRN (12:30)
[2022-10-12] MEDS ORDERED: PHARMACY GLYCEMIC MGMT CONSULT PRN (12:30)
[2022-10-12] MEDS ORDERED: GLUCOSE 40% GEL 15 GM TUBE PO PRN (12:30)
[2022-10-12] MEDS ORDERED: CARBOHYDRATES FOR HYPOGLYCEMIA PO PRN (12:30)
[2022-10-12] MEDS ORDERED: DEXTROSE 50% 50 ML SYRINGE IV PRN (12:30)
[2022-10-12] MEDS ORDERED: GLUCAGON FOR INJ 1 MG VIAL SQ PRN (12:30)
--- NOTE | 2022-10-12 12:39 | CT Scan Report ---
CT SCAN OF THE BRAIN WITHOUT IV CONTRAST CLINICAL HISTORY: Fall. COMPARISON STUDY: CT of the brain dated 03/06/2022. TECHNIQUE: Unenhanced axial CT scan of the brain is performed from the vertex to the skull base. A d ose lowering technique was utilized adhering to the principles of ALARA. CT DOSE: 614.27 mGy.cm FINDINGS: Brain parenchyma: The brain parenchyma is normal in appearance. There is no hemorrhage, mass effect, or evidence of acute territorial ischemia by CT criteria. Brower-white matter differentiation is preser eli. No extra-axial fluid collection is seen. Ventricles, sulci, cisterns: Normal in configuration. Intracranial vasculature: The visualized intracranial vasculature at the skull base is normal in appe arance. Calvarium: Unremarkable. Sinuses and mastoids: The paranasal sinuses are clear. The mastoid air cells are well pneumatized. Orbits: The bony orbits are grossly intact. IMPRESSION: No acute intracranial abnormality ACT 112: Negative or not required by law. Electronically signed by: Kumar Caldwell M.D. 10/12/2022 12:38 PM
[2022-10-12 12:47] LABS: Troponin I High Sensitivity 5.4 pg/ml (0-14)
[2022-10-12] MEDS ORDERED: INSULIN ASPART PER UNIT SC SCH ×2 (13:15→21:00)
--- NOTE | 2022-10-12 13:18 | Electrocardiogram Report ---
Test Reason : Blood Pressure : / mmHG Vent. Rate : 094 BPM Atrial Rate : 094 BPM P-R Int : 174 ms QRS Dur : 088 ms QT Int : 390 ms P-R-T Axes : 028 -15 021 degrees QTc Int : 487 ms Normal sinus rhythm Anterior infarct (cited on or before 02-AUG-2022) Abnormal ECG When compared with ECG of 24-SEP-2022 16:54, No significant change was found Confirmed by Ignacio Keys ([id number]) on 10/12/2022 1:18:18 PM Referred By: REFERRED SELF Confirmed By:Ignacio Keys
[2022-10-12] MEDS ORDERED: LANTUS PER UNIT CHARGE SQ ONE (13:30)
[2022-10-12] MEDS ORDERED: busPIRone 5 MG TAB PO STA (13:38)
[2022-10-12] MEDS ORDERED: KETOROLAC TROMETHAMINE 15 MG/ML VIAL IV ONE (13:38)
[2022-10-12] MEDS ORDERED: oxyCODONE HCL IR 5 MG TAB (IMMEDIATE RELEASE) PO STA (13:38)
[2022-10-12] MEDS ORDERED: GABAPENTIN 800 MG TAB PO ONE (13:39)
[2022-10-12 13:58] LABS: Appearance Urine Clear (Clear); Bacteria Urine Automated Negative (Negative); Bilirubin Urine Negative (Negative); Blood Urine Negative (Negative); Cast Urine Automated 0 /lpf (0-5); Color Urine Yellow; Epithelial Cell Urine Auto 20-30 /lpf (0-5); Glucose Urine UA 3+ (Negative); Ketones Urine Negative (Negative); Leukocyte Esterase Urine Trace (Negative); Nitrite Urine Negative (Negative); Protein Urine 1+ (Negative); RBC Urine Automated 0-4 /hpf (0-4); Specific Gravity Urine > 1.045 (1.000-1.030); Urobilinogen Urine Negative (Negative); WBC Urine Automated >30 /hpf (0-5)
--- NOTE | 2022-10-12 14:23 | Pharmacy Report ---
Pharmacy Glycemic Short Note 2 - Date of Service October 12, 2022 - Glycemic Short BSG Results (Last 24 hours): 10/12/22 10/12/22 10/12/22 10:43 12:07 12:55 Glucose 514 H* POC Glucose 481 H* 374 H* OUTPATIENT ANTIDIABETIC REGIMEN: * Lantus 85units SQ BID * Novolog 12 units TID * Trulicity 1.5mg SQ weekly * HbA1C: 10.7% (08/13/22) ASSESSMENT: * 52 YO female admitted with acute hip pain and hyperglycemia. Not in DKA/HHS (AG-8, bicarb-27). Pharmacy consulted to assist with glycemic management. * BSG on arrival-514mg/dL. Pt received 10units IV regular insulin bolus X 1 around noon. Repeat BSG 374mg/dL. Currently NPO. * Patient reports she did not take her Lantus this AM, and appears to be non- compliant. Will initiate Novolog severe stress q4h through tomorrow AM, then ACHS. Lantus 60 units SQ X 1 now with HS scale. * May require insulin infusion if BSGs do not continue to trend down. PLAN FOR INPATIENT GLYCEMIC CONTROL: * Hold outpatient oral diabetes medications * Basal insulin * Lantus 60units SQ X 1 + HS scale * Bolus insulin * NovoLog per scale ACHS or Q6hrs while NPO * Goal Range: Low 110 mg/dL - High 140 mg/dL * Correction Factor: 15 mg/dL/unit * Nutritional / Prandial insulin per carb ratio of 1 unit per 5 grams CHO consumed
[2022-10-12] MEDS ORDERED: DICLOFENAC SOD 1% GEL 100 GM TUBE EXT PRN (15:07)
[2022-10-12] MEDS ORDERED: PROMETHAZINE HCL 25 MG TAB PO PRN (15:07)
[2022-10-12] MEDS ORDERED: ETODOLAC 200 MG PO PRN (15:07)
[2022-10-12] MEDS ORDERED: ALBUTEROL HFA 8 GM INHALER INH PRN (15:07)
[2022-10-12] MEDS ORDERED: ONDANSETRON INJ 2 MG/ML 2 ML VIAL IV PRN (15:07)
[2022-10-12] MEDS ORDERED: ALBUTEROL 0.083% NEBU SOLN 3 ML VIAL INH PRN (15:07)
[2022-10-12] MEDS ORDERED: ALBUT/IPRATROP 3MG/0.5MG NEB 3 ML VIAL INH PRN (15:07)
[2022-10-12] MEDS: INSULIN ASPART PER UNIT SC SCH ×2 (16:22→20:03)
[2022-10-12] MEDS: GABAPENTIN 800 MG TAB PO SCH ×2 (16:22→21:33)
[2022-10-12] MEDS: LIDOCAINE 5% 1 PATCH TD SCH (16:22)
[2022-10-12] MEDS: ENOXAPARIN INJ 40 MG/0.4 ML SYR SQ SCH (16:22)
[2022-10-12] MEDS: ORDER AWAITING ACTION: Cyclosporine [Restasis] 0.05 % Dropperette SCH (16:30)
[2022-10-12] MEDS ORDERED: LANTUS PER UNIT CHARGE SQ SCH (21:00)
[2022-10-12] MEDS: MONTELUKAST SODIUM 10 MG TABLET PO SCH (21:33)
[2022-10-12] MEDS: FAMOTIDINE 40 MG TABLET PO SCH (21:33)
[2022-10-12] MEDS: traZODone HCL 100 MG TAB PO SCH (21:33)
[2022-10-12] MEDS: DULoxetine HCL 60 MG CAP PO SCH (21:33)
[2022-10-12] MEDS: levETIRAcetam 250 MG TAB PO SCH (21:33)
[2022-10-12] MEDS: LANTUS PER UNIT CHARGE SQ SCH (21:38)
[2022-10-12] MEDS: oxyCODONE HCL IR 5 MG TAB (IMMEDIATE RELEASE) PO PRN (21:38)
[2022-10-12] MEDS: POLYETHYLENE (MIRALAX) 17 GM PACK PO SCH (21:49)
[2022-10-12] MEDS: LACTATED RINGER'S 1,000 ML IV SCH ×2 (22:05→22:18)
[2022-10-13] MEDS ORDERED: INSULIN ASPART PER UNIT SC SCH
[2022-10-13] MEDS: INSULIN ASPART PER UNIT SC SCH ×6 (01:23→21:41)
[2022-10-13] MEDS: ORDER AWAITING ACTION: Cyclosporine [Restasis] 0.05 % Dropperette SCH ×4 (01:24→23:26)
[2022-10-13] MEDS ORDERED: INSULIN ASPART PER UNIT SC ONE (04:00)
[2022-10-13] MEDS: LACTATED RINGER'S 1,000 ML IV SCH ×3 (07:39→23:24)
--- NOTE | 2022-10-13 08:58 | Neurology Consultation ---
Date of Consultation October 13, 2022 Assessment & Plan (1) Seizure disorder: (2) Ambulatory dysfunction: (3) Acute hip pain: (4) Acute hyperglycemia: Plan This patient has a history of seizures since the spring 2021. These are of uncertain etiology and MRIs have not been very revealing. She has had multiple tests and seems to be fairly well controlled on levetiracetam. She has had some recent breakthrough seizures, the most recent on October 11 may have been due to severe hyperglycemia. Patient has acute hip pain on the right with chronic low back pain and a history of radicular symptoms. 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 She does not ambulate well because of this. Recommendations: 1. Increase levetiracetam to 1000 mg twice daily. 2. We will check a trough level in 2 to 3 weeks. 3. Consider EMG and nerve conduction studies of the legs as an outpatient. I can follow-up with her back and legs further after this. 4. I see no need for further neurologic testing (such as MRI or EEG) at this time. 5. Otherwise, contact me if I can be of further assistance. Control glucose as you are doing. Overall, I spent a total of 60 minutes with this case including review of records, direct evaluation of patient at bedside, and discussion of the case with the patient and RN at bedside, as well as Dr. Rama Wilson, including differential diagnosis and treatment options. History of Present Illness Reason for Consultation: Patient is a 52-year-old, who I was asked to see at the request of Dr. Terra Gong, for neurologic consultation regarding seizures and other issues. Requesting Physician: Dr. Gong Attending Physician: Jose Peters History of Present Illness This patient has a history of COPD, depression, type 2 diabetes not adequately controlled. I first saw this patient here November 2020 when she was admitted for an unusual headache with left-sided weakness and cervical spine pain. MRI of the cervical spine showed mild spinal stenosis and an MRI of the brain showed no acute stroke. The patient's headache and left-sided weakness resolved and it was felt that she had a complicated migraine. The patient was admitted in February 2022 for new onset seizures. MRI of the brain and EEG were largely unremarkable and she was put on levetiracetam 750 mg twice daily since March 2022. She was seeing Dr. Benitez at the time. The patient did well with her seizures until about a month ago when in September 2022 she was grieving because of a cousin who was murdered, and she had a brief seizure-like event. She gets no warning. On October 11 in the evening, she fell and hit the back of her head.. She then had the onset of feeling like she was blacking out and had no recall. She was incontinent of urine and groggy thereafter. She was convinced she had a seizure. This was not witnessed. Typically, she says that when she does have a seizure she will have generalized shaking and always have incontinence of urine. There was no tongue biting. This patient has been having low back pain with radicular pain into the right and left lower extremity. Her left lower extremity has been weak over the last 20 years and she claims that MRIs have shown a large Tarlov cyst creating the problem. She was going to get this removed about 5 years ago but this did not happen. Patient came to the emergency room October 12 at 1010, with a temperature 36.9, pulse 101, respiratory rate 18, blood pressure 137/101 (she claims she was in pain) and O2 saturation of 99%. Neurologic examination was largely unremarkable and CHEM profile and CBC were unremarkable. Glucose was 514 however. She was given insulin. X-rays of the hips and pelvis were unremarkable. Lumbar spine CT showed degenerative changes only. CT scan of the head was unremarkable. This morning her glucose was 185 and her blood pressure is 92/62. She has no complaint of headache, dizziness, vision problems, or confusion. She does have low back pain which is quite severe ambulating well. Allergies Allergy/AdvReac Type Severity Reaction Status Date / Time acetaminophen AdvReac Severe LIVER Verified 10/10/22 20:32 COMPLICATIONS cephalexin AdvReac Severe Vomiting Verified 10/10/22 20:32 levofloxacin [From Levaquin] AdvReac Intermediate Vomiting Verified 10/10/22 20:32 Home Medications Medication Instructions Recorded Confirmed Type cyclobenzaprine 10 mg tablet 10 mg PO BID PRN Muscle Spasm ##0 11/18/17 10/12/22 History albuterol sulfate 90 mcg/actuation 2 puff inhalation Q4H PRN 02/10/18 10/12/22 H istory aerosol inhaler (Ventolin HFA) Shortness Of Breath Or Wheezing ##0 ibuprofen 800 mg tablet 800 mg PO TID PRN Pain 10/24/19 10/12/22 History promethazine 25 mg tablet 25 mg PO Q6H PRN Nausea 10/24/19 10/12/22 History fluticasone 232 mcg-salmeterol 14 2 inh inhalation BID PRN Shortness 08/21/20 10/12/22 History mcg/actuation breath activated Of Breath powdr (AirDuo RespiClick) montelukast 10 mg tablet 10 mg PO HS 09/01/20 10/12/22 History (Singulair) aspirin 81 mg tablet,delayed 81 mg PO QAM 10/28/20 10/12/22 History release cyclosporine 0.05 % eye drops in a 2 drp ophthalmic (eye) Q12H 04/17/21 10/12/22 History dropperette (Restasis) diclofenac sodium 1 % topical gel 4 g topical QID PRN Pain 07/20/21 10/12/22 History albuterol sulfate 2.5 mg/3 mL 2.5 mg inhalation Q6 PRN Wheezing 01/19/22 10/12/22 History (0.083 %) solution for nebulization famotidine 40 mg tablet 40 mg PO BID 01/19/22 10/12/22 History fluticasone propionate 50 1 spray intranasal DAILY PRN 01/19/22 10/12/22 History mcg/actuation nasal Congestion spray,suspension (Flonase Allergy Relief) lidocaine 5 % topical patch 1 patch transdermal DAILY PRN Pain 01/19/22 10/12/22 History pantoprazole 20 mg tablet,delayed 20 mg PO QAM 01/19/22 10/12/22 History release polyethylene glycol 3350 17 17 g PO BID 01/29/22 10/12/22 History gram/dose oral powder (Miralax) trazodone 100 mg tablet 100 mg PO HS 01/29/22 10/12/22 History duloxetine 60 mg capsule,delayed 60 mg PO HS 03/12/22 10/12/22 History release gabapentin 800 mg tablet 800 mg PO TID 04/05/22 10/12/22 History levetiracetam 750 mg tablet 750 mg PO BID #60 tabs 04/06/22 10/12/22 Rx (Keppra) buspirone 5 mg tablet 5 mg PO QID 10/21/22 01/03/23 History oxycodone 5 mg tablet 5 mg PO BID PRN Pain 07/30/22 10/12/22 History ondansetron 4 mg disintegrating 4 mg PO Q6H PRN nausea and 08/11/22 10/12/22 Rx tablet vomiting #12 tabs insulin aspart U-100 100 unit/mL 12 unit (0.12 mL) SC TID #15 mL 08/16/22 10/12/22 Rx (3 mL) subcutaneous pen (Novolog Flexpen U-100 Insulin aspart) insulin glargine 100 unit/mL (3 65 unit subcut BID 10/05/22 10/12/22 History mL) subcutaneous pen (Lantus Solostar U-100 Insulin) dulaglutide 4.5 mg/0.5 mL 4.5 mg (0.5 mL) subcut WK #2 mL 10/06/22 10/12/22 Rx subcutaneous pen injector (Trulicity) etodolac 200 mg capsule 200 mg PO Q12H PRN pain #14 caps 10/10/22 10/12/22 Rx dulaglutide 1.5 mg/0.5 mL 1.5 mg subcut UD 10/12/22 10/12/22 History subcutaneous pen injector (Trulicity) nystatin 100,000 unit/gram topical 1 applic topical UD 10/12/22 10/12/22 History powder ([facility]) Patient History Medical History Abdominal pain Acute hyperglycemia Anxiety Brain cyst Chest pain Chronic low back pain with left-sided sciatica Chronic obstructive pulmonary disease Dental abscess Depression Elevated lactic acid level Emphysema of lung Encounter for pre-operative examination Hx of blood clots Hyperglycemia Hyperglycemia Hyperglycemia due to type 2 diabetes mellitus Hypertension Hypokalemia Hypomagnesemia Hyponatremia Insulin dependent diabetes mellitus Lightheadedness Medication reaction Obesity Periapical abscess with facial involvement Pulmonary embolism Reports was anticoagulation x 60 days, not on chronic anticoagulation Syncope Thrombocytopenia Tinea corporis Tinea cruris Uncontrolled type 2 diabetes mellitus Surgical History History of laparoscopic cholecystectomy Hx of oral surgery (02/15/20) Acute right submandibular, submental space infection with floor of mouth infection caused by infected lower teeth. Dr. Rios 02/15/20 S/P dilation and curettage S/P laparoscopic hernia repair S/P laparoscopic procedure ovarian cyst surgery Family History Mother , 73 Heart disease Cancer small cell ca lung caused at 73 Father Skin cancer Brother No problems noted. Sister No problems noted. Grandmother (Maternal) , 48 Heart disease T2DM (type 2 diabetes mellitus) Grandmother (Paternal) , 83 Heart disease Kidney disease Uncle T2DM (type 2 diabetes mellitus) Other Diabetes Obesity Denies family history of Ovarian cancer Breast cancer Colorectal cancer Uterine cancer Social History Smoking Status: Former smoker Tobacco Type: Cigarettes Cigarettes Per Day: 5; Second Hand Exposure: Yes; Hx Alcohol Use: No Hx Substance Use: No Preferred Language: Macanese Communication Ability: Effective Visual Impairment: No Limitations Hearing Ability: Normal Assistant Professor Of Nursing Required: No Beliefs That Will Affect Care: Sabianist Sabianist Beliefs: Islam marital status: Current Living Situation: Family Current Living Situation Comment: Lives with son (15yo) current occupational status: unemployed 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 How many Children do You have: 1 Feels Safe at Home: Yes Safety Concerns: Feels Safe At This Time Assistive Devices: Walker Review of Systems Constitutional: no fever, no fatigue and no weakness Eyes: no diplopia, no eye pain and no worsening vision Ear, Nose, Mouth, Throat: no ear pain, no tinnitus, no hearing loss, no dizziness, no snoring, no hoarseness and no dysphagia Respiratory: no cough and no dyspnea Cardiovascular: no chest pain, no palpitations and no lightheadedness Gastrointestinal: no abdominal pain, no nausea and no vomiting Genitourinary: no dysuria, no urinary frequency and no urinary incontinence Musculoskeletal: + back pain; no neck pain, no radicular pain, no joint pain and no myalgia Integumentary: no rash and no lesions Neurologic: + localized weakness; no gait abnormality, no generalized weakness, no tingling, no numbness, no tremor(s), no abnormal movements, no headache(s), no abnormal speech, no confusion and no memory loss Psychiatric: no depression, no irritability, no anxiety, no difficulty concentrating, no confusion and no hallucinations Endocrine: no fatigue and no flushing Hematologic / Lymphatic: no easy bleeding and no easy bruising Allergy / Immunological: no urticaria and no problem reported Exam (Neuro) Physical Exam: The patient is right-handed. The patient is awake, alert, and attentive. Speech is normal without any aphasia or dysarthria. Mentation and thought processes are intact, with full orientation and normal fund of knowledge. Mood and affect are normal and appropriate. Appearance and grooming are normal. Short and long-term memory are intact. The discs are sharp with positive venous pulsations bilaterally. There are no exudates, hemorrhages, or blood vessel changes seen. Pupils are 4 mm bilaterally and reactive to light. Extraocular eye muscles are intact without nystagmus. Visual acuity and visual pond seem normal grossly to confrontation. There are no deficits to sensation in the face in all 3 distributions of the fifth cranial nerve bilaterally. Corneal reflexes are positive bilaterally. Facial strength and symmetry was normal bilaterally. Hearing seems intact grossly to voice and finger rub bilaterally. Palate moves well without asymmetry. There is normal sternocleidomastoid and trapezius strength bilaterally. Tongue is midline with good strength bilaterally. Neck has a full range of motion without discomfort. There are no cervical bruits bilaterally. There are no cranial or ocular bruits. Heart is without murmur. There is a regular rhythm and rate. Cervical, thoracic, and lumbar spine are nontender to palpation. Gait is not tested, but stance is poor due to low back pain and inability to sit up. With outstretched arms there is no drift. There are no resting, postural, or action tremors. There is no ataxia with finger to nose testing. There is good facility in the hands. No other abnormal involuntary movements are noted. Motor strength is 5/5 diffusely in the arms bilaterally including deltoids, biceps, triceps, brachioradialis, wrist flexors and extensors, solder cream maker, and intrinsic hand muscles. She has some giveaway weakness in the legs bilaterally left greater than right side. This is secondary to pain and I am not sure that there is pathological weakness. The limbs have good tone without rigidity or spasticity. There is no atrophy noted in the muscles. Muscle bulk is normal, there is no tenderness to palpation, no myotonia to percussion, and no fasciculations seen. Sensory examination is intact to touch and pin throughout all 4 limbs diffusely. Reflexes are 1/4 in the biceps, triceps, brachioradialis, quadriceps, and Achilles tendons bilaterally. Toes are downgoing with plantar stimulation bilaterally. Peripheral pulses are present and of normal quality distally in all 4 limbs. There is no peripheral edema noted in the limbs. Results & Data ([facility]) Vital Signs (Past 12 Hours) Vital Signs Pulse Resp BP Pulse Ox O2 Del Method 10/13/22 08:12 82 16 92/62 L 96 Room Air 10/13/22 04:15 72 15 93/53 L 97 Room Air 10/13/22 01:19 70 20 90/50 L 99 Room Air PG Care Time/CCT Total # of Minutes Spent Total Time Spent with Patient: Total time spent is greater than 50% in coordination of care (as documented) at patient's floor/unit and/or counseling patient: Coding Level of Care Code 67250 INT INP/OBS CARE 3/75MIN Diagnoses Seizure disorder G40.909 Ambulatory dysfunction R26.2 Acute hip pain M25.559 Acute hyperglycemia R73.9 Time Spent (min) 60
[2022-10-13] MEDS ORDERED: LANTUS PER UNIT CHARGE SQ ONE (09:00)
[2022-10-13] MEDS: levETIRAcetam 250 MG TAB PO SCH ×2 (09:36→20:14)
[2022-10-13] MEDS: LIDOCAINE 5% 1 PATCH TD SCH (09:36)
[2022-10-13] MEDS: POLYETHYLENE (MIRALAX) 17 GM PACK PO SCH ×2 (09:37→20:14)
[2022-10-13] MEDS: PANTOprazole 40 MG TAB PO SCH (09:37)
[2022-10-13] MEDS: ASPIRIN 81 MG ECTAB PO SCH (09:37)
[2022-10-13] MEDS: FAMOTIDINE 40 MG TABLET PO SCH ×2 (09:37→20:14)
[2022-10-13] MEDS: GABAPENTIN 800 MG TAB PO SCH ×3 (09:37→20:14)
[2022-10-13] MEDS: FLUTICASONE/VILANTEROL 100/25MCG 14 PUFFS/INHALER INH SCH (09:37)
[2022-10-13] MEDS: oxyCODONE HCL IR 5 MG TAB (IMMEDIATE RELEASE) PO PRN ×2 (09:45→21:45)
--- NOTE | 2022-10-13 12:22 | Pharmacy Report ---
Pharmacy Glycemic Short Note 2 - Date of Service October 13, 2022 - Glycemic Short BSG Results (Last 24 hours): 10/12/22 10/12/22 10/12/22 12:55 14:28 15:59 POC Glucose 374 H* 336 H* 255 H 10/12/22 10/12/22 10/13/22 19:51 22:03 01:09 POC Glucose 160 H 168 H 196 H 10/13/22 10/13/22 10/13/22 04:59 08:03 09:47 POC Glucose 185 H 95 116 H 10/13/22 11:19 POC Glucose 169 H OUTPATIENT ANTIDIABETIC REGIMEN: * Lantus 85units SQ BID * Novolog 12 units TID * Trulicity 1.5mg SQ weekly * HbA1C: 10.7% (08/13/22) ASSESSMENT: 10/13: * Patient received a total of 160 units of lantus yesterday and 30 units of novolog. Of note patient was ordered for 40 units of lantus for last evening but received 100 units. * Fasting BSG this morning was 97. Will proceed with a reduced total daily dose of insulin for today and re-assess ongoing dosing tomorrow morning. * Patient is ordered a diet but intake has been minimal thus far today. If appetite increases, NovoLog scale may need to be tightened further. 10/12 * 52 YO female admitted with acute hip pain and hyperglycemia. Not in DKA/HHS (AG-8, bicarb-27). Pharmacy consulted to assist with glycemic management. * BSG on arrival-514mg/dL. Pt received 10units IV regular insulin bolus X 1 around noon. Repeat BSG 374mg/dL. Currently NPO. * Patient reports she did not take her Lantus this AM, and appears to be non- compliant. Will initiate Novolog severe stress q4h through tomorrow AM, then ACHS. Lantus 60 units SQ X 1 now with HS scale. * May require insulin infusion if BSGs do not continue to trend down. PLAN FOR INPATIENT GLYCEMIC CONTROL: * Hold outpatient oral diabetes medications * Basal insulin * Lantus 25 units SQ X 1 this morning + HS scale (25, 35 or 45 units- see MAR for details) * Bolus insulin * NovoLog per scale ACHS or Q6hrs while NPO * Goal Range: Low 110 mg/dL - High 140 mg/dL * Correction Factor: 15 mg/dL/unit * Nutritional / Prandial insulin per carb ratio of 1 unit per 5 grams CHO consumed
[2022-10-13] MEDS: ENOXAPARIN INJ 40 MG/0.4 ML SYR SQ SCH ×2 (16:15→17:28)
[2022-10-13] MEDS: KETOROLAC TROMETHAMINE 15 MG/ML VIAL IV PRN (20:14)
[2022-10-13] MEDS: MONTELUKAST SODIUM 10 MG TABLET PO SCH (20:14)
[2022-10-13] MEDS: traZODone HCL 100 MG TAB PO SCH (20:14)
[2022-10-13] MEDS: DULoxetine HCL 60 MG CAP PO SCH (20:15)
[2022-10-13] MEDS: LANTUS PER UNIT CHARGE SQ SCH (21:40)
--- NOTE | 2022-10-13 22:21 | Hospitalist Progress Note ---
Date of Service October 13, 2022 Assessment & Plan (1) Acute hyperglycemia: Plan: - Patient presented with a blood sugar of 514 despite reported compliance with her medications which include Lantus 80 units twice daily, NovoLog 12 units 3 times daily, and Trulicity. - Does not appear to be DKA/HHS, anion gap is 8. - She has had multiple visits in the past several months for similar presentation. Suspect there is component of noncompliance. She admits she has not had any of her regular medications since 5 PM this evening due to being on the ground and not being able to get to them. - Received 10 units regular insulin in ED, repeat sugar down to 374, therefore w ill defer on insulin drip and further correct with Lantus and NovoLog. Give a.m. dose of Lantus now. - A1c 10.7% on 08/13, indicates uncontrolled diabetes despite reported compliance with insulin and Trulicity. - General diet -consulted glycemic control. -blood sugar appears improved. (2) Acute hip pain: Plan: - Patient has a history of ongoing hip pain and sciatica, reports in the past 20 years she has been battling with this but over the last 9 days it is significantly worsened leading to falls over the past 2 days. - Hip x-ray, lumbar CT scan, head CT all unremarkable for acute injury. 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 - We will continue patient's home medications for pain management, including cyclobenzaprine, lidocaine patches, Voltaren gel, duloxetine NSAIDs, gabapentin, oxycodone. - PT/OT to work with patient while admitted, suspect she may need placement if she is unable to ambulate safely at home and care for self. -PT/OT recommends further PT. awaiting placement (3) Seizure: Plan: - Patient has history of seizure disorders, reported an episode at home despite compliance with her Keppra. - Loaded with a dose of IV Keppra in ED, will increase Keppra from 750 mg twice daily to 1000 mg BID as per Neuro. (4) Chronic low back pain with left-sided sciatica: Plan: - Obesity, sciatica, Tarlov cysts at L5-S1. Management as above, see "acute pain ". (5) Chronic obstructive pulmonary disease: Plan: - No evidence of acute exacerbation today, continue home inhalers, Flonase, Singulair. (6) Insulin dependent diabetes mellitus: Plan: - DUPLICATION SPECIALIST> 65 units Lantus twice daily, NovoLog 12 units 3 times daily with meals, Trulicity weekly. - Patient has followed up with diabetes clinic, there is suspicion for noncompliance given her chronically elevated sugars to the 400-600 we will despite reported compliance with her insulin. - Management of acute hyperglycemia as above, will consult pharmacy to assist with hyperglycemic management during this admission. (7) Liver cirrhosis: Plan: - Reported history of, and has followed with hepatology previously, however has not seen them for the past year. - LFTs within normal limits on admission. Plan - Admit to PCU given reports of seizure. - SCDs, Lovenox for VTE ppx. - Full code. Pending placement Admission and Anticipated Discharge Date Admission Date: October 12, 2022 Subjective Patient reports feeling better. She is agreeable to rehab. Review of Systems Review of Systems: All systems reviewed & are unremarkable except as noted in HPI & below Physical Exam Physical Exam: General: awake, alert, no apparent distress Head: Normocephalic, atraumatic ENT: PERRL, EOMI, no pharyngeal exudate, mucous membranes moist Chest: Clear to auscultation, on room air, no adventitious breath sounds Cardiac: Regular rate and rhythm, no murmur, no JVD, normal peripheral pulses, good capillary refill Abdominal: NABS x 4 quadrants, soft, nontender to palpation, no rebound, guarding or tenderness Extremities: Low back TTP along spine, right hip painful with flexion and extension; Strength intact bilaterally Psych: Normal mood and affect Neuro: AAO x 3, strength intact bilaterally and rated 5/5, no motor deficits, speech is clear, no peripheral sensory deficits Skin: no rash or erythema Results & Data Results & Data ([facility]) Vital Signs (Past 12 Hours) Vital Signs Temp Pulse Resp BP Pulse Ox O2 Del Method 10/13/22 20:43 36.9 C 76 16 110/73 94 Room Air PG Care Time/CCT Total # of Minutes Spent Total Time Spent with Patient: Total time spent is greater than 50% in coordination of care (as documented) at patient's floor/unit and/or counseling patient: Coding Level of Care Code 22960 SUB INP/OBS CARE 2/35MIN Diagnoses Acute hyperglycemia R73.9 Acute hip pain M25.551 Laterality: right Seizure R56.9 Chronic low back pain with left-sided sciatica M54.42; G89.29 Chronic obstructive pulmonary disease J44.9 Insulin dependent diabetes mellitus E11.9; Z79.4 Liver cirrhosis K74.60 Hepatic cirrhosis type: unspecified hepatic cirrhosis (1) Acute hip pain Laterality: right Qualified Code(s): M25.551 - Pain in right hip (2) Liver cirrhosis Hepatic cirrhosis type: unspecified hepatic cirrhosis
[2022-10-14] MEDS: KETOROLAC TROMETHAMINE 15 MG/ML VIAL IV PRN ×3 (04:54→18:01)
[2022-10-14] MEDS: LACTATED RINGER'S 1,000 ML IV SCH ×2 (06:11→14:35)
[2022-10-14] MEDS: INSULIN ASPART PER UNIT SC SCH ×4 (08:54→21:17)
[2022-10-14] MEDS: LANTUS PER UNIT CHARGE SQ SCH ×2 (08:54→21:17)
[2022-10-14] MEDS: ORDER AWAITING ACTION: Cyclosporine [Restasis] 0.05 % Dropperette SCH ×2 (08:58→16:03)
[2022-10-14] MEDS: FLUTICASONE/VILANTEROL 100/25MCG 14 PUFFS/INHALER INH SCH (09:05)
[2022-10-14] MEDS: LIDOCAINE 5% 1 PATCH TD SCH (09:06)
[2022-10-14] MEDS: oxyCODONE HCL IR 5 MG TAB (IMMEDIATE RELEASE) PO PRN ×2 (09:08→21:18)
[2022-10-14] MEDS: GABAPENTIN 800 MG TAB PO SCH ×3 (09:08→20:42)
[2022-10-14] MEDS: levETIRAcetam 500 MG TAB PO SCH ×2 (09:09→20:43)
[2022-10-14] MEDS: ASPIRIN 81 MG ECTAB PO SCH (09:09)
[2022-10-14] MEDS: POLYETHYLENE (MIRALAX) 17 GM PACK PO SCH ×2 (09:09→20:44)
[2022-10-14] MEDS: FAMOTIDINE 40 MG TABLET PO SCH ×2 (09:09→20:42)
[2022-10-14] MEDS: PANTOprazole 40 MG TAB PO SCH (09:09)
--- NOTE | 2022-10-14 09:15 | Pharmacy Report ---
Pharmacy Glycemic Short Note 2 - Date of Service October 14, 2022 - Glycemic Short BSG Results (Last 24 hours): 10/13/22 10/13/22 10/13/22 08:03 09:47 11:19 POC Glucose 95 116 H 169 H 10/13/22 10/13/22 10/14/22 18:21 20:39 08:16 POC Glucose 227 H 296 H 112 H OUTPATIENT ANTIDIABETIC REGIMEN: * Lantus 85units SQ BID * Novolog 12 units TID * Trulicity 1.5mg SQ weekly HbA1C: 10.7% (08/13/22) ASSESSMENT: 10/14: * Patient received 70 units of basal yesterday, BSGs elevated as the day progressed, will increase basal and even out AM/PM dosing today * Also tighten CF/CR at this time too 10/13: * Patient received a total of 160 units of Lantus yesterday and 30 units of NovoLog. Of note patient was ordered for 40 units of Lantus for last evening but received 100 units. * Fasting BSG this morning was 97. Will proceed with a reduced total daily dose of insulin for today and re-assess ongoing dosing tomorrow morning. * Patient is ordered a diet but intake has been minimal thus far today. If appetite increases, NovoLog scale may need to be tightened further. 10/12 * 52 YO female admitted with acute hip pain and hyperglycemia. Not in DKA/HHS (AG-8, bicarb-27). Pharmacy consulted to assist with glycemic management. * BSG on arrival-514mg/dL. Pt received 10units IV regular insulin bolus X 1 around noon. Repeat BSG 374mg/dL. Currently NPO. * Patient reports she did not take her Lantus this AM, and appears to be non- compliant. Will initiate NovoLog severe stress q4h through tomorrow AM, then ACHS. Lantus 60 units SQ X 1 now with HS scale. * May require insulin infusion if BSGs do not continue to trend down. PLAN FOR INPATIENT GLYCEMIC CONTROL: * Hold outpatient diabetes medications * Basal insulin * Lantus SQ BID 35 units BSG < 110mg/dl; 45 units BSG 110-180mg/dl; 50 units BSG > 180mg/dl * Bolus insulin * NovoLog per scale ACHS or Q6hrs while NPO * Goal Range: Low 110 mg/dL - High 140 mg/dL * Correction Factor: 12 mg/dL/unit * Nutritional / Prandial insulin per carb ratio of 1 unit per 3 grams CHO consumed
[2022-10-14 09:42] LABS: BUN Creatinine Ratio 17.3 (10-20); Calcium 8.2 mg/dl (8.5-10.1); Creatinine Clr Calc Pharmacy 144.9 ml/min; Est GFR (African American) 125.5 ml/min; Est GFR (Non-African American) 108.3 ml/min; Potassium 3.9 mmol/L (3.5-5.1)
[2022-10-14 09:54] LABS: Hematocrit (blood only) 34.6 % (34.1-44.9); Hemoglobin 12.1 g/dl (12.0-16.0); Mean Corpuscular Hemoglobin 31.8 pg (25.0-34.0); Mean Corpuscular Volume 90.8 fL (80.0-100.0); Mean Platelet Volume 11.6 fL (9.4-12.3); Platelet Count 110 K/uL (130-400); RDW Coefficient of Variation 13.3 % (11.5-14.5); RDW Standard Deviation 44.1 fL (36.4-46.3); Red Blood Count 3.81 M/uL (3.93-5.22)
--- NOTE | 2022-10-14 10:14 | Hospitalist Progress Note ---
Date of Service October 14, 2022 Assessment & Plan (1) Acute hyperglycemia: Plan: - Patient presented with a blood sugar of 514 despite reported compliance with her medications which include Lantus 80 units twice daily, NovoLog 12 units 3 times daily, and Trulicity. DKA/HHS ruled out , anion gap is 8. - A1c 10.7% on 08/13, indicates uncontrolled diabetes despite reported compliance with insulin and Trulicity. - General diet -consulted glycemic control. Patient is on basal bolus insulin with very tight sliding scale - (2) Acute hip pain: Plan: - Patient has a history of ongoing hip pain and sciatica, reports in the past 20 years she has been battling with this but over the last 9 days it is significantly worsened leading to falls over the past 2 days. - Hip x-ray, lumbar CT scan, head CT all unremarkable for acute injury. 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 - We will continue patient's home medications for pain management, including cyclobenzaprine, lidocaine patches, Voltaren gel, duloxetine NSAIDs, gabapentin, oxycodone. We will try 3 days of prednisone 40 starting the evening of 10/14 patient was given 1 dose of IV Dilaudid to help with pain - PT/OT to work with patient while admitted, suspect she may need placement if she is unable to ambulate safely at home and care for self. -PT/OT recommends further PT. awaiting placement (3) Seizure: Plan: - Patient has history of seizure disorders, reported an episode at home despite compliance with her Keppra. - Loaded with a dose of IV Keppra in ED, will increase Keppra from 750 mg twice daily to 1000 mg BID as per Neuro. (4) Chronic low back pain with left-sided sciatica: Plan: - Obesity, sciatica, Tarlov cysts at L5-S1. Management as above, see "acute pain ". (5) Chronic obstructive pulmonary disease: Plan: - No evidence of acute exacerbation today, continue home inhalers, Flonase, Singulair. 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 - Patient has followed up with diabetes clinic, there is suspicion for noncompliance given her chronically elevated sugars to the 400-600 we will despite reported compliance with her insulin. - Management of acute hyperglycemia as above, will consult pharmacy to assist with hyperglycemic management during this admission. (7) Liver cirrhosis: Plan: - Reported history of, and has followed with hepatology previously, however has not seen them for the past year. - LFTs within normal limits on admission. Plan - Admit to PCU given reports of seizure. - SCDs, Lovenox for VTE ppx. - Full code. Pending placement Admission and Anticipated Discharge Date Admission Date: October 12, 2022 Subjective Patient is having a lot of posterior left leg discomfort significant now relieved by oral medications. We discussed use of steroids try to reduce her symptoms she is fearful due to her blood glucoses being elevated subsequently I called glycemic pharmacy to alert them. Patient is talk agreeable to rehab if needed Review of Systems Review of Systems: Moderate distress and fatigue no headache, no visual changes no speech or swallowing issues no chest pain, pressure or palpitations no shortness of breath, cough or wheezes no abdominal pain, nausea or vomiting, diarrhea or constipation no dysuria, hematuria or frequency no focal joint pain or swelling Pain radiating down the left leg no back pain, CVA tenderness or radicular pain no bruising, bleeding or rashes no focal signs of weakness or numbness or altered sensation no complaints of anxiety or depression.. Physical Exam Physical Exam: The patient appeared in moderate discomfort sitting on the bathroom toilet Vital signs as documented. Extremities are nonedematous and pain radiates down the left leg Neurologic exam is alert and oriented, no focal loss of strength or sensation Skin is without bruises or rashes Psychologically is without concerns for anxiety or depression. Results & Data Results & Data ([facility]) Vital Signs (Past 12 Hours) Vital Signs Temp Pulse Resp BP Pulse Ox O2 Del Method 10/14/22 07:54 98.1 F 66 16 97/63 L 96 Room Air PG Care Time/CCT Total # of Minutes Spent Total Time Spent with Patient: Total time spent is greater than 50% in coordination of care (as documented) at patient's floor/unit and/or counseling patient: Coding Level of Care Code 59010 SUB INP/OBS CARE 3/50MIN Diagnoses Acute hyperglycemia R73.9 Acute hip pain M25.551 Laterality: right Seizure R56.9 Chronic low back pain with left-sided sciatica M54.42; G89.29 Chronic obstructive pulmonary disease J44.9 Insulin dependent diabetes mellitus E11.9; Z79.4 Liver cirrhosis K74.60 Hepatic cirrhosis type: unspecified hepatic cirrhosis (1) Acute hip pain Laterality: right Qualified Code(s): M25.551 - Pain in right hip (2) Liver cirrhosis Hepatic cirrhosis type: unspecified hepatic cirrhosis
[2022-10-14] MEDS: CYCLOBENZAPRINE HCL 10 MG TAB PO PRN (13:13)
[2022-10-14] MEDS ORDERED: HYDROmorphone INJ 0.5 MG/0.5 ML SYR IV STA ×2 (15:28→22:30)
[2022-10-14] MEDS: ENOXAPARIN INJ 40 MG/0.4 ML SYR SQ SCH (15:44)
[2022-10-14] MEDS ORDERED: predniSONE 20 MG TAB PO STA (19:17)
[2022-10-14] MEDS: DULoxetine HCL 60 MG CAP PO SCH (20:42)
[2022-10-14] MEDS: traZODone HCL 100 MG TAB PO SCH (20:42)
[2022-10-14] MEDS: MONTELUKAST SODIUM 10 MG TABLET PO SCH (20:42)
[2022-10-14] MEDS: FLUTICASONE PROPIONATE NA SPR 16 GM BTL NAE PRN (20:46)
[2022-10-15] MEDS: ORDER AWAITING ACTION: Cyclosporine [Restasis] 0.05 % Dropperette SCH ×4 (00:02→23:45)
[2022-10-15] MEDS: levETIRAcetam 500 MG TAB PO SCH ×2 (07:21→20:32)
[2022-10-15] MEDS: GABAPENTIN 800 MG TAB PO SCH ×3 (07:21→20:30)
[2022-10-15] MEDS: FAMOTIDINE 40 MG TABLET PO SCH ×2 (07:22→20:31)
[2022-10-15] MEDS: ASPIRIN 81 MG ECTAB PO SCH (07:22)
[2022-10-15] MEDS: predniSONE 20 MG TAB PO SCH (07:22)
[2022-10-15] MEDS: FLUTICASONE/VILANTEROL 100/25MCG 14 PUFFS/INHALER INH SCH (07:23)
[2022-10-15] MEDS: LIDOCAINE 5% 1 PATCH TD SCH (07:23)
[2022-10-15] MEDS: PANTOprazole 40 MG TAB PO SCH (07:23)
[2022-10-15] MEDS: POLYETHYLENE (MIRALAX) 17 GM PACK PO SCH ×2 (07:24→20:33)
[2022-10-15] MEDS: KETOROLAC TROMETHAMINE 15 MG/ML VIAL IV PRN ×3 (07:27→20:44)
--- NOTE | 2022-10-15 08:54 | Hospitalist Progress Note ---
Date of Service October 15, 2022 Assessment & Plan (1) Acute hyperglycemia: Plan: - Patient presented with a blood sugar of 514 despite reported compliance with her medications which include Lantus 80 units twice daily, NovoLog 12 units 3 times daily, and Trulicity. DKA/HHS ruled out , anion gap is 8. - A1c 10.7% on 08/13, indicates uncontrolled diabetes despite reported compliance with insulin and Trulicity. - General diet -consulted glycemic control. blood glucoses favorable even with po steroid Patient is on basal bolus insulin with very tight sliding scale - (2) Acute hip pain: Plan: - Patient has a history of ongoing hip pain and sciatica, reports in the past 20 years she has been battling with this but over the last 9 days it is significantly worsened leading to falls over the past 2 days. - Hip x-ray, lumbar CT scan, head CT all unremarkable for acute injury. 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 - We will continue patient's home medications for pain management, including cyclobenzaprine, lidocaine patches, Voltaren gel, duloxetine NSAIDs, gabapentin, oxycodone. We will try 3 days of prednisone 40 starting the evening of 10/14 patient was given 1 dose of IV Dilaudid to help with pain Pain seems to be SI joint area and not completely consistent with Siatica, will have MRI ls spine to eval for neurologic impingement and SI joint area on left - PT/OT to work with patient while admitted, suspect she may need placement if she is unable to ambulate safely at home and care for self. -PT/OT recommends further PT. awaiting placement (3) Seizure: Plan: - Patient has history of seizure disorders, reported an episode at home despite compliance with her Keppra. - Loaded with a dose of IV Keppra in ED, did ncrease Keppra from 750 mg twice daily to 1000 mg BID as per Neurological recommendations . (4) Chronic low back pain with left-sided sciatica: Plan: - Obesity, sciatica, Tarlov cysts at L5-S1. Management as above, see "acute pain ". (5) Chronic obstructive pulmonary disease: Plan: - No evidence of acute exacerbation today, continue home inhalers, Flonase, Singulair. 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 - Patient has followed up with diabetes clinic, there is suspicion for noncompliance given her chronically elevated sugars to the 400-600 we will despite reported compliance with her insulin. - Management of acute hyperglycemia as above, will consult pharmacy to assist with hyperglycemic management during this admission. (7) Liver cirrhosis: Plan: - Reported history of, and has followed with hepatology previously, however has not seen them for the past year. - LFTs within normal limits on admission. Plan - Admit to PCU given reports of seizure. - SCDs, Lovenox for VTE ppx. - Full code. Pending placement Admission and Anticipated Discharge Date Admission Date: October 12, 2022 Subjective pt with persistent left SI pain and left posterior thigh pain. she is now agreeable to consider rehab once symptom control is achieved Review of Systems Review of Systems: Moderate distress and fatigue no headache, no visual changes no speech or swallowing issues no chest pain, pressure or palpitations no shortness of breath, cough or wheezes no abdominal pain, nausea or vomiting, diarrhea or constipation no dysuria, hematuria or frequency no focal joint pain or swelling Pain radiating down the left leg, mostly in thigh not below knee and not to foot no back pain, CVA tenderness or radicular pain no bruising, bleeding or rashes no focal signs of weakness or numbness or altered sensation no complaints of anxiety or depression.. Physical Exam Physical Exam: The patient appeared in moderate discomfort laying in bed in the afternoon required additional parenteral opiates Vital signs as documented. Extremities are nonedematous and pain radiates down the left leg Neurologic exam is alert and oriented, no focal loss of strength or sensation pain at left SI joint area radiating to left posterior thigh but not below knee no objective decrease in strength Skin is without bruises or rashes Psychologically is without concerns for anxiety or depression. Results & Data Results & Data ([facility]) Vital Signs (Past 12 Hours) Vital Signs Temp Pulse Resp BP Pulse Ox O2 Del Method 10/15/22 08:04 97.3 F L 89 16 119/72 94 Room Air 10/14/22 21:44 97.5 F L 70 16 113/74 95 Room Air PG Care Time/CCT Total # of Minutes Spent Total Time Spent with Patient: Total time spent is greater than 50% in coordination of care (as documented) at patient's floor/unit and/or counseling patient: Coding Level of Care Code 95202 SUB INP/OBS CARE MIN Diagnoses Acute hyperglycemia R73.9 Acute hip pain M25.551 Laterality: right Seizure R56.9 Chronic low back pain with left-sided sciatica M54.42; G89.29 Chronic obstructive pulmonary disease J44.9 Insulin dependent diabetes mellitus E11.9; Z79.4 Liver cirrhosis K74.60 Hepatic cirrhosis type: unspecified hepatic cirrhosis (1) Acute hip pain Laterality: right Qualified Code(s): M25.551 - Pain in right hip (2) Liver cirrhosis Hepatic cirrhosis type: unspecified hepatic cirrhosis
[2022-10-15] MEDS: INSULIN ASPART PER UNIT SC SCH ×4 (09:06→20:40)
[2022-10-15] MEDS: LANTUS PER UNIT CHARGE SQ SCH ×2 (09:06→20:41)
[2022-10-15] MEDS: oxyCODONE HCL IR 5 MG TAB (IMMEDIATE RELEASE) PO PRN ×2 (11:30→23:12)
--- NOTE | 2022-10-15 13:24 | Pharmacy Report ---
Pharmacy Glycemic Short Note 2 - Date of Service October 15, 2022 - Glycemic Short BSG Results (Last 24 hours): 10/14/22 10/14/22 10/15/22 17:05 20:32 08:36 POC Glucose 117 H 103 H 248 H 10/15/22 12:19 POC Glucose 202 H OUTPATIENT ANTIDIABETIC REGIMEN: * Lantus 85units SQ BID * Novolog 12 units TID * Trulicity 1.5mg SQ weekly * HbA1C: 10.7% (08/13/22) ASSESSMENT: 10/15/22: * Ms Vick received 117 units of insulin yesterday, of which 70 units were basal insulin. * Fasting BSG was well-above goal this morning (248 mg/dL), likely representing some basal insulin deficit. * Will increase Lantus at this time, and continue to titrate up until BSGs are well-controlled. * No change to Novolog parameters at this time. 10/14 * Patient received 70 units of basal yesterday, BSGs elevated as the day progressed, will increase basal and even out AM/PM dosing today * Also tighten CF/CR at this time too 10/13 * Patient received a total of 160 units of Lantus yesterday and 30 units of NovoLog. Of note patient was ordered for 40 units of Lantus for last evening but received 100 units. * Fasting BSG this morning was 97. Will proceed with a reduced total daily dose of insulin for today and re-assess ongoing dosing tomorrow morning. * Patient is ordered a diet but intake has been minimal thus far today. If appetite increases, NovoLog scale may need to be tightened further. 10/12 * 52 YO female admitted with acute hip pain and hyperglycemia. Not in DKA/HHS (AG-8, bicarb-27). Pharmacy consulted to assist with glycemic management. * BSG on arrival-514mg/dL. Pt received 10units IV regular insulin bolus X 1 around noon. Repeat BSG 374mg/dL. Currently NPO. * Patient reports she did not take her Lantus this AM, and appears to be non- compliant. Will initiate NovoLog severe stress q4h through tomorrow AM, then ACHS. Lantus 60 units SQ X 1 now with HS scale. * May require insulin infusion if BSGs do not continue to trend down. PLAN FOR INPATIENT GLYCEMIC CONTROL: * Basal insulin * Lantus SQ BID, per scale (see EMR for details) * Bolus insulin * NovoLog per scale ACHS or Q6hrs while NPO * Goal Range: Low 110 mg/dL - High 140 mg/dL * Correction Factor: 12 mg/dL/unit * Nutritional / Prandial insulin per carb ratio of 1 unit per 3 grams CHO consumed
[2022-10-15] MEDS: ENOXAPARIN INJ 40 MG/0.4 ML SYR SQ SCH (14:36)
[2022-10-15] MEDS ORDERED: HYDROmorphone INJ 0.5 MG/0.5 ML SYR IV STA (16:23)
[2022-10-15] MEDS: DULoxetine HCL 60 MG CAP PO SCH (20:31)
[2022-10-15] MEDS: busPIRone 5 MG TAB PO PRN (20:31)
[2022-10-15] MEDS: traZODone HCL 100 MG TAB PO SCH (20:32)
[2022-10-15] MEDS: MONTELUKAST SODIUM 10 MG TABLET PO SCH (20:33)
--- NOTE | 2022-10-15 20:33 | Magnetic Resonance Report ---
MRI OF THE LUMBAR SPINE WITHOUT IV CONTRAST CLINICAL HISTORY: Chronic low back pain. Left lower extremity radiculopathy. COMPARISON STUDY: CT scan of the lumbar spine dated 10/12/2022. MRI of the lumbar spine dated 8. TECHNIQUE: MRI of the lumbar spine is performed utilizing various T1 and T2-weighted sequences in the axial and sagittal planes. IV contrast was not administered for this examination. FINDINGS: Lumbar spine: Vertebral body height and alignment are maintained throughout the lumbar spine. Anterio r and lateral marginal osteophytes are seen throughout. The transverse and spinous processes appear i ntact. There is no evidence of spondylolysis. No destructive bony lesion is seen. Intervertebral discs: Degenerative disc desiccation is seen throughout the lumbar spine. There is mod erate loss of height at L3-L4. Mild loss of height is seen at L4-L5 and L5-S1. Spinal cord: The visualized spinal cord is normal in morphology and signal intensity. The conus medul liseth terminates at the level of L1. The nerve roots of the cauda equina are normal in morphology. L1-L2: Unremarkable. L2-L3: Unremarkable. L3-L4: There is broad-based posterior disc bulge and annular fissure. In conjunction with hypertrophy of the ligamentum flavum, there is severe central canal stenosis at this level with a minimum AP josefa meter of 3 mm. The nerve roots of the cauda equina are likely tethered at this level. Lateral disc bu lge contributes to bilateral subarticular stenosis at this level. In conjunction with facet arthropat hy, there is [id number] bilateral neural foraminal stenosis. L4-L5: There is mild posterior disc bulge. In conjunction with hypertrophy of the ligamentum flavum, there is mild central canal stenosis at this level with a minimum AP diameter of 7 mm. Lateral disc b ulge continues to bilateral subarticular stenosis. This may abut the exiting bilateral L4 nerve root s. In conjunction with facet arthropathy, there is moderate left and mild right neural foraminal sten osis. L5-S1: There is broad-based posterior disc bulge and annular fissure. This is eccentric to the left a nd impinges on the transiting left S1 nerve root. This is similar to previous. Mild left lateral disc bulge contributes to subarticular stenosis. Facet arthropathy is of no confluence. The neural forami na are patent. Sacrum: Large Tarlov cysts of the sacrum are similar to previous. There is thinning/bony remodeling o f the sacrum which is similar to previous. Soft tissues: The paraspinous soft tissues are normal as visualized. Retroperitoneal structures are g rossly unremarkable but incompletely evaluated. IMPRESSION: 1. Multilevel lumbosacral spondylosis as above, greatest at L3-L4 where there is severe central canal stenosis. This has progressed as compared to 08/29/2018. 2. A left lateral disc bulge at L5-S1 impinges on the transiting left S1 nerve root. 3. See discussion for detailed level analysis. 4. No destructive bony process is seen. Dictated: 10/15/2022 7:07 PM Transcribed: 10/15/2022 8:21 PM Malathi [id number] [email or web address] Electronically signed by: Kumar Caldwell M.D. 10/15/2022 8:31 PM
[2022-10-15] MEDS: CYCLOBENZAPRINE HCL 10 MG TAB PO PRN (22:08)
[2022-10-16] MEDS: ORDER AWAITING ACTION: Cyclosporine [Restasis] 0.05 % Dropperette SCH ×3 (07:53→21:17)
[2022-10-16] MEDS: GABAPENTIN 800 MG TAB PO SCH ×3 (07:54→20:36)
[2022-10-16] MEDS: levETIRAcetam 500 MG TAB PO SCH ×2 (07:54→20:35)
[2022-10-16] MEDS: predniSONE 20 MG TAB PO SCH (07:54)
[2022-10-16] MEDS: PANTOprazole 40 MG TAB PO SCH (07:55)
[2022-10-16] MEDS: FAMOTIDINE 40 MG TABLET PO SCH ×2 (07:55→20:35)
[2022-10-16] MEDS: POLYETHYLENE (MIRALAX) 17 GM PACK PO SCH ×2 (07:56→20:37)
[2022-10-16] MEDS: LIDOCAINE 5% 1 PATCH TD SCH (07:56)
[2022-10-16] MEDS: ASPIRIN 81 MG ECTAB PO SCH (07:57)
[2022-10-16] MEDS: FLUTICASONE/VILANTEROL 100/25MCG 14 PUFFS/INHALER INH SCH (07:57)
[2022-10-16] MEDS: INSULIN ASPART PER UNIT SC SCH ×4 (09:20→20:44)
[2022-10-16] MEDS: LANTUS PER UNIT CHARGE SQ SCH (09:21)
[2022-10-16] MEDS: oxyCODONE HCL IR 5 MG TAB (IMMEDIATE RELEASE) PO PRN ×2 (09:46→21:57)
[2022-10-16] MEDS: KETOROLAC TROMETHAMINE 15 MG/ML VIAL IV PRN ×2 (12:58→20:49)
--- NOTE | 2022-10-16 14:04 | Pharmacy Report ---
Pharmacy Glycemic Short Note 2 - Date of Service October 16, 2022 - Glycemic Short BSG Results (Last 24 hours): 10/15/22 10/15/22 10/16/22 18:22 20:30 08:14 POC Glucose 251 H 276 H 87 10/16/22 12:14 POC Glucose 123 H OUTPATIENT ANTIDIABETIC REGIMEN: * Lantus 85units SQ BID * Novolog 12 units TID * Trulicity 1.5mg SQ weekly * HbA1C: 10.7% (08/13/22) ASSESSMENT: 10/16/22 * Patient's BSGs yesterday were 183-297-490-276 mg/dL. Fasting today is 87 mg/dL. * Patient received 183 units of insulin yesterday (100 units of basal and 83 units of bolus). * BSGs elevated due to prednisone 40 mg given evening of 10/14 and morning of 10/15. Prednisone 40 mg given 10/16 as well but then discontinued. * Due to larger amount of basal onboard, will hold on NPH for steroid induced hyperglycemia. * Based upon fastings from 10/13 and 10/14, it is possible that Lantus 70 units per day may be an appropriate basal rate. Start with 35 units BID. * For Novolog, tighten CR due to steroids but loosen CF as patient can overcorrect. 10/15/22: * Ms Vick received 117 units of insulin yesterday, of which 70 units were basal insulin. * Fasting BSG was well-above goal this morning (248 mg/dL), likely representing some basal insulin deficit. * Will increase Lantus at this time, and continue to titrate up until BSGs are well-controlled. * No change to Novolog parameters at this time. 10/14 * Patient received 70 units of basal yesterday, BSGs elevated as the day progressed, will increase basal and even out AM/PM dosing today * Also tighten CF/CR at this time too 10/13 * Patient received a total of 160 units of Lantus yesterday and 30 units of NovoLog. Of note patient was ordered for 40 units of Lantus for last evening but received 100 units. * Fasting BSG this morning was 97. Will proceed with a reduced total daily dose of insulin for today and re-assess ongoing dosing tomorrow morning. * Patient is ordered a diet but intake has been minimal thus far today. If appetite increases, NovoLog scale may need to be tightened further. 10/12 * 52 YO female admitted with acute hip pain and hyperglycemia. Not in DKA/HHS (AG-8, bicarb-27). Pharmacy consulted to assist with glycemic management. * BSG on arrival-514mg/dL. Pt received 10units IV regular insulin bolus X 1 around noon. Repeat BSG 374mg/dL. Currently NPO. * Patient reports she did not take her Lantus this AM, and appears to be non- compliant. Will initiate NovoLog severe stress q4h through tomorrow AM, then ACHS. Lantus 60 units SQ X 1 now with HS scale. * May require insulin infusion if BSGs do not continue to trend down. PLAN FOR INPATIENT GLYCEMIC CONTROL: * Basal insulin * Lantus 35 SQ BID * Bolus insulin * NovoLog per scale ACHS or Q6hrs while NPO * Goal Range: Low 110 mg/dL - High 140 mg/dL * Correction Factor: 15 mg/dL/unit * Nutritional / Prandial insulin per carb ratio of 1 unit per 2.5 grams CHO consumed
[2022-10-16] MEDS: ENOXAPARIN INJ 40 MG/0.4 ML SYR SQ SCH (16:07)
[2022-10-16] MEDS ORDERED: HYDROmorphone INJ 0.5 MG/0.5 ML SYR IV PRN (16:15)
[2022-10-16] MEDS: HYDROmorphone INJ 0.5 MG/0.5 ML SYR IV PRN (16:33)
--- NOTE | 2022-10-16 18:49 | Hospitalist Progress Note ---
Date of Service October 16, 2022 Assessment & Plan (1) Acute hyperglycemia: Plan: - Patient presented with a blood sugar of 514 despite reported compliance with her medications which include Lantus 80 units twice daily, NovoLog 12 units 3 times daily, and Trulicity. DKA/HHS ruled out , anion gap is 8. - A1c 10.7% on 08/13, indicates uncontrolled diabetes despite reported compliance with insulin and Trulicity. - General diet -consulted glycemic control. blood glucoses favorable even with po steroid Patient is on basal bolus insulin with very tight sliding scale - (2) Acute hip pain: Plan: - Patient has a history of ongoing hip pain and sciatica, reports in the past 20 years she has been battling with this but over the last 9 days it is significantly worsened leading to falls over the past 2 days. - Hip x-ray, lumbar CT scan, head CT all unremarkable for acute injury. 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 - We will continue patient's home medications for pain management, including cyclobenzaprine, lidocaine patches, Voltaren gel, duloxetine NSAIDs, gabapentin, oxycodone. We will try 3 days of prednisone 40 starting the evening of 10/14 patient was given 1 dose of IV Dilaudid to help with pain Pain seems to be SI joint area and not completely consistent with Siatica MRI lumbar spine suggests spinal stenosis with changes to left sided nerve roots, will have orth spine evaluaion - PT/OT to work with patient while admitted, suspect she may need placement if she is unable to ambulate safely at home and care for self. -PT/OT recommends further PT. awaiting placement (3) Seizure: Plan: - Patient has history of seizure disorders, reported an episode at home despite compliance with her Keppra. - Loaded with a dose of IV Keppra in ED, did ncrease Keppra from 750 mg twice daily to 1000 mg BID as per Neurological recommendations . (4) Chronic low back pain with left-sided sciatica: Plan: - Obesity, sciatica, Tarlov cysts at L5-S1. Management as above, see "acute pain ". (5) Chronic obstructive pulmonary disease: Plan: - No evidence of acute exacerbation continue home inhalers, Flonase, Singulair. 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 - Patient has followed up with diabetes clinic, there is suspicion for noncompliance given her chronically elevated sugars to the 400-600 we will despite reported compliance with her insulin. - Management of acute hyperglycemia as above, will consult pharmacy to assist with hyperglycemic management during this admission. (7) Liver cirrhosis: Plan: - Reported history of, and has followed with hepatology previously, however has not seen them for the past year. - LFTs within normal limits on admission. Plan - Admit to PCU given reports of seizure. - SCDs, Lovenox for VTE ppx. - Full code. Pending placement Admission and Anticipated Discharge Date Admission Date: October 12, 2022 Subjective pt with persistent left SI pain and left posterior thigh pain. MRI suggests spinal stenosis, will have oro spine evaluaiton, continue symptom management she is now agreeable to consider rehab once symptom control is achieved Review of Systems Review of Systems: Moderate distress and fatigue no headache, no visual changes no speech or swallowing issues no chest pain, pressure or palpitations no shortness of breath, cough or wheezes no abdominal pain, nausea or vomiting, diarrhea or constipation no dysuria, hematuria or frequency no focal joint pain or swelling Pain radiating down the left leg, mostly in thigh not below knee and not to foot no back pain, CVA tenderness or radicular pain no bruising, bleeding or rashes no focal signs of weakness or numbness or altered sensation no complaints of anxiety or depression.. Physical Exam Physical Exam: The patient appeared in moderate discomfort laying in bed in the afternoon required additional parenteral opiates Vital signs as documented. Extremities are nonedematous and pain radiates down the left leg Neurologic exam is alert and oriented, no focal loss of strength or sensation pain at left SI joint area radiating to left posterior thigh but not below knee no objective decrease in strength Skin is without bruises or rashes Psychologically is without concerns for anxiety or depression. Results & Data Results & Data ([facility]) Vital Signs (Past 12 Hours) Vital Signs Temp Pulse Resp BP Pulse Ox O2 Del Method 10/16/22 15:01 98.2 F 73 18 118/73 93 Room Air 10/16/22 08:00 Room Air 10/16/22 07:30 97.5 F L 59 L 18 109/70 96 Room Air PG Care Time/CCT Total # of Minutes Spent Total Time Spent with Patient: Total time spent is greater than 50% in coordination of care (as documented) at patient's floor/unit and/or counseling patient: Coding Level of Care Code 25140 SUB INP/OBS CARE 2MIN Diagnoses Acute hyperglycemia R73.9 Acute hip pain M25.551 Laterality: right Seizure R56.9 Chronic low back pain with left-sided sciatica M54.42; G89.29 Chronic obstructive pulmonary disease J44.9 Insulin dependent diabetes mellitus E11.9; Z79.4 Liver cirrhosis K74.60 Hepatic cirrhosis type: unspecified hepatic cirrhosis (1) Acute hip pain Laterality: right Qualified Code(s): M25.551 - Pain in right hip (2) Liver cirrhosis Hepatic cirrhosis type: unspecified hepatic cirrhosis
[2022-10-16] MEDS: traZODone HCL 100 MG TAB PO SCH (20:35)
[2022-10-16] MEDS: MONTELUKAST SODIUM 10 MG TABLET PO SCH (20:36)
[2022-10-16] MEDS: busPIRone 5 MG TAB PO PRN (20:36)
[2022-10-16] MEDS: DULoxetine HCL 60 MG CAP PO SCH (20:36)
[2022-10-16] MEDS ORDERED: LANTUS PER UNIT CHARGE SQ SCH (21:00)
[2022-10-16] MEDS ORDERED: dexAMETHasone 10 MG in SYRINGE 0 ML IV ONE (22:00)
[2022-10-17] MEDS: dexAMETHasone 4 MG in SYRINGE 0 ML IV SCH ×3 (06:03→21:00)
[2022-10-17] MEDS: levETIRAcetam 500 MG TAB PO SCH ×2 (07:51→20:40)
[2022-10-17] MEDS: FAMOTIDINE 40 MG TABLET PO SCH ×2 (07:51→20:41)
[2022-10-17] MEDS: ASPIRIN 81 MG ECTAB PO SCH (07:51)
[2022-10-17] MEDS: ORDER AWAITING ACTION: Cyclosporine [Restasis] 0.05 % Dropperette SCH ×3 (07:52→23:54)
[2022-10-17] MEDS: FLUTICASONE/VILANTEROL 100/25MCG 14 PUFFS/INHALER INH SCH (07:52)
[2022-10-17] MEDS: GABAPENTIN 800 MG TAB PO SCH ×3 (07:52→20:39)
[2022-10-17] MEDS: PANTOprazole 40 MG TAB PO SCH (07:52)
[2022-10-17] MEDS: LIDOCAINE 5% 1 PATCH TD SCH (07:53)
[2022-10-17] MEDS: POLYETHYLENE (MIRALAX) 17 GM PACK PO SCH ×2 (07:53→20:40)
[2022-10-17] MEDS: HYDROmorphone INJ 0.5 MG/0.5 ML SYR IV PRN ×4 (07:59→23:58)
[2022-10-17] MEDS: INSULIN ASPART PER UNIT SC SCH ×5 (09:22→23:57)
[2022-10-17] MEDS: LANTUS PER UNIT CHARGE SQ SCH ×2 (09:22→20:56)
[2022-10-17] MEDS: oxyCODONE HCL IR 5 MG TAB (IMMEDIATE RELEASE) PO PRN ×2 (10:22→22:18)
--- NOTE | 2022-10-17 12:08 | Orthopedic Consultation ---
Date of Consultation October 17, 2022 Assessment & Plan (1) Neurogenic claudication due to lumbar spinal stenosis: Patient has severe spinal stenosis that is created with significant limitations with ambulation. We discussed possible surgical intervention. Will require at minimum a lumbar decompression and possible fusion L3-L4 L4-L5. L5-S1 may also need to be addressed. Risk benefits pros cons alternatives were in detail. At this time we will plan for surgery this week as she is medically cleared. History of Present Illness Reason for Consultation: Back pain with leg weakness Attending Physician: Que Blanco MD History of Present Illness This is a very pleasant 52-year-old female that has a longstanding history of leg pain and weakness that has been markedly progressive over the course of the past week. She denies any specific trauma fall or event. She does live with her son and is mostly independent. She states that any weightbearing causes pain down the left leg and breakaway weakness. She is unable to ambulate without assistance. This has been markedly progressive. She does have some symptoms in the right leg but to a much lesser extent. Allergies Allergy/AdvReac Type Severity Reaction Status Date / Time acetaminophen AdvReac Severe LIVER Verified 10/10/22 20:32 COMPLICATIONS cephalexin AdvReac Severe Vomiting Verified 10/10/22 20:32 levofloxacin [From Levaquin] AdvReac Intermediate Vomiting Verified 10/10/22 2 0:32 Home Medications Medication Instructions Recorded Confirmed Type cyclobenzaprine 10 mg tablet 10 mg PO BID PRN Muscle Spasm ##0 11/18/17 10/12/22 History albuterol sulfate 90 mcg/actuation 2 puff inhalation Q4H PRN 02/10/18 10/12/22 History aerosol inhaler (Ventolin HFA) Shortness Of Breath Or Wheezing ##0 ibuprofen 800 mg tablet 800 mg PO TID PRN Pain 10/24/19 10/12/22 History promethazine 25 mg tablet 25 mg PO Q6H PRN Nausea 10/24/19 10/12/22 History fluticasone 232 mcg-salmeterol 14 2 inh inhalation BID PRN Shortness 08/21/20 10/12/22 History mcg/actuation breath activated Of Breath powdr (AirDuo RespiClick) montelukast 10 mg tablet 10 mg PO HS 09/01/20 10/12/22 History (Singulair) aspirin 81 mg tablet,delayed 81 mg PO QAM 10/28/20 10/12/22 History release cyclosporine 0.05 % eye drops in a 2 drp ophthalmic (eye) Q12H 04/17/21 10/12/22 History dropperette (Restasis) diclofenac sodium 1 % topical gel 4 g topical QID PRN Pain 07/20/21 10/12/22 History albuterol sulfate 2.5 mg/3 mL 2.5 mg inhalation Q6 PRN Wheezing 01/19/22 10/12/22 History (0.083 %) solution for nebulization famotidine 40 mg tablet 40 mg PO BID 01/19/22 10/12/22 History fluticasone propionate 50 1 spray intranasal DAILY PRN 01/19/22 10/12/22 History mcg/actuation nasal Congestion spray,suspension (Flonase Allergy Relief) lidocaine 5 % topical patch 1 patch transdermal DAILY PRN Pain 01/19/22 10/12/22 History pantoprazole 20 mg tablet,delayed 20 mg PO QAM 01/19/22 10/12/22 History release polyethylene glycol 3350 17 17 g PO BID 01/29/22 10/12/22 History gram/dose oral powder (Miralax) trazodone 100 mg tablet 100 mg PO HS 01/29/22 10/12/22 History duloxetine 60 mg capsule,delayed 60 mg PO HS 03/12/22 10/12/22 History release gabapentin 800 mg tablet 800 mg PO TID 04/05/22 10/12/22 History levetiracetam 750 mg tablet 750 mg PO BID #60 tabs 04/06/22 10/12/22 Rx (Keppra) buspirone 5 mg tablet 5 mg PO QID 07/30/22 10/12/22 History oxycodone 5 mg tablet 5 mg PO BID PRN Pain 07/30/22 10/12/22 History ondansetron 4 mg disintegrating 4 mg PO Q6H PRN nausea and 08/11/22 10/12/22 Rx tablet vomiting #12 tabs insulin aspart U-100 100 unit/mL 12 unit (0.12 mL) SC TID #15 mL 08/16/22 10/12/22 Rx (3 mL) subcutaneous pen (Novolog Flexpen U-100 Insulin aspart) insulin glargine 100 unit/mL (3 65 unit subcut BID 10/05/22 10/12/22 History mL) subcutaneous pen (Lantus Solostar U-100 Insulin) dulaglutide 4.5 mg/0.5 mL 4.5 mg (0.5 mL) subcut WK #2 mL 10/06/22 10/12/22 Rx subcutaneous pen injector (Trulicity) etodolac 200 mg capsule 200 mg PO Q12H PRN pain #14 caps 10/10/22 10/12/22 Rx dulaglutide 1.5 mg/0.5 mL 1.5 mg subcut UD 10/12/22 10/12/22 History subcutaneous pen injector (Trulicity) nystatin 100,000 unit/gram topical 1 applic topical UD 10/12/22 10/12/22 History powder ([facility]) Patient History Medical History Abdominal pain Acute hyperglycemia Anxiety Brain cyst Chest pain Chronic low back pain with left-sided sciatica Chronic obstructive pulmonary disease Dental abscess Depression Elevated lactic acid level Emphysema of lung Encounter for pre-operative examination Hx of blood clots Hyperglycemia Hyperglycemia Hyperglycemia due to type 2 diabetes mellitus Hypertension Hypokalemia Hypomagnesemia Hyponatremia Insulin dependent diabetes mellitus Lightheadedness Medication reaction Obesity Periapical abscess with facial involvement Pulmonary embolism Reports was anticoagulation x 60 days, not on chronic anticoagulation Syncope Thrombocytopenia Tinea corporis Tinea cruris Uncontrolled type 2 diabetes mellitus Surgical History History of laparoscopic cholecystectomy Hx of oral surgery (02/15/20) Acute right submandibular, submental space infection with floor of mouth infection caused by infected lower teeth. Dr. Rios 02/15/20 S/P dilation and curettage S/P laparoscopic hernia repair S/P laparoscopic procedure ovarian cyst surgery Family History Mother , 73 Heart disease Cancer small cell ca lung caused at 73 Father Skin cancer Brother No problems noted. Sister No problems noted. Grandmother (Maternal) , 48 Heart disease T2DM (type 2 diabetes mellitus) Grandmother (Paternal) , 83 Heart disease Kidney disease Uncle T2DM (type 2 diabetes mellitus) Other Diabetes Obesity Denies family history of Ovarian cancer Breast cancer Colorectal cancer Uterine cancer Social History Smoking Status: Former smoker Tobacco Type: Cigarettes Cigarettes Per Day: 5; Second Hand Exposure: Yes; Hx Alcohol Use: No Hx Substance Use: No Preferred Language: Citizen Of [place] Communication Ability: Effective Visual Impairment: No Limitations Hearing Ability: Normal Embossograph Operator Required: No Beliefs That Will Affect Care: Voodoo Voodoo Beliefs: Zoroastrianism marital status: Current Living Situation: Family Current Living Situation Comment: Lives with son (15yo) current occupational status: unemployed 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 She is sitting upright. She has reasonable plantar flexion dorsiflexion bilaterally. Sensory symmetric and intact. Results & Data ([facility]) Vital Signs (Past 12 Hours) Vital Signs Temp Pulse Resp BP Pulse Ox O2 Del Method 10/17/22 08:00 Room Air 10/17/22 07:42 36.8 C 60 16 112/71 96 Room Air
--- NOTE | 2022-10-17 13:54 | Pharmacy Report ---
Pharmacy Glycemic Short Note 2 - Date of Service October 17, 2022 - Glycemic Short BSG Results (Last 24 hours): 10/16/22 10/16/22 10/17/22 17:19 20:20 06:06 POC Glucose 187 H 299 H 224 H 10/17/22 10/17/22 07:57 11:59 POC Glucose 214 H 233 H OUTPATIENT ANTIDIABETIC REGIMEN: * Lantus 85units SQ BID * Novolog 12 units TID * Trulicity 1.5mg SQ weekly * HbA1C: 10.7% (08/13/22) ASSESSMENT: 10/17/22 * Patient's BSGs yesterday were [phone] mg/dL. Patient received 145 units of basal (70 units of basal and 75 units of bolus). * Patient given dexamethasone 10 mg IV x 1 yesterday evening and then started on dexamethasone 4 mg IV q8 today. * Patient is acutely sensitive to steroids. * Fasting this AM 227 mg/dL. * Will increase basal to 100 units/day. This appears to be effective when patient receiving steroids. Note, will need to be rapidly decreased when steroids halted. * Tighten Novolog to achieve more bolus coverage to decrease basal coverage. Overnight checks to see what more basal needs required. 10/16/22 * Patient's BSGs yesterday were [phone] mg/dL. Fasting today is 87 mg/dL. * Patient received 183 units of insulin yesterday (100 units of basal and 83 units of bolus). * BSGs elevated due to prednisone 40 mg given evening of 10/14 and morning of 10/15. Prednisone 40 mg given 10/16 as well but then discontinued. * Due to larger amount of basal onboard, will hold on NPH for steroid induced hyperglycemia. * Based upon fastings from 10/13 and 10/14, it is possible that Lantus 70 units per day may be an appropriate basal rate. Start with 35 units BID. * For Novolog, tighten CR due to steroids but loosen CF as patient can overcorrect. 10/15/22: * Ms Vick received 117 units of insulin yesterday, of which 70 units were basal insulin. * Fasting BSG was well-above goal this morning (248 mg/dL), likely representing some basal insulin deficit. * Will increase Lantus at this time, and continue to titrate up until BSGs are well-controlled. * No change to Novolog parameters at this time. 10/14 * Patient received 70 units of basal yesterday, BSGs elevated as the day progressed, will increase basal and even out AM/PM dosing today * Also tighten CF/CR at this time too 10/13 * Patient received a total of 160 units of Lantus yesterday and 30 units of NovoLog. Of note patient was ordered for 40 units of Lantus for last evening but received 100 units. * Fasting BSG this morning was 97. Will proceed with a reduced total daily dose of insulin for today and re-assess ongoing dosing tomorrow morning. * Patient is ordered a diet but intake has been minimal thus far today. If appet ite increases, NovoLog scale may need to be tightened further. 10/12 * 52 YO female admitted with acute hip pain and hyperglycemia. Not in DKA/HHS (AG-8, bicarb-27). Pharmacy consulted to assist with glycemic management. * BSG on arrival-514mg/dL. Pt received 10units IV regular insulin bolus X 1 around noon. Repeat BSG 374mg/dL. Currently NPO. * Patient reports she did not take her Lantus this AM, and appears to be non- compliant. Will initiate NovoLog severe stress q4h through tomorrow AM, then ACHS. Lantus 60 units SQ X 1 now with HS scale. * May require insulin infusion if BSGs do not continue to trend down. PLAN FOR INPATIENT GLYCEMIC CONTROL: * Basal insulin * Lantus 50 SQ BID * Bolus insulin * NovoLog per scale ACHS or Q6hrs while NPO * Goal Range: Low 110 mg/dL - High 140 mg/dL * Correction Factor: 10 mg/dL/unit * Nutritional / Prandial insulin per carb ratio of 1 unit per 2 grams CHO consumed
[2022-10-17] MEDS: ENOXAPARIN INJ 40 MG/0.4 ML SYR SQ SCH (14:57)
--- NOTE | 2022-10-17 18:02 | Hospitalist Progress Note ---
Date of Service October 17, 2022 Assessment & Plan (1) Acute hyperglycemia: Plan: - Patient presented with a blood sugar of 514 despite reported compliance with her medications which include Lantus 80 units twice daily, NovoLog 12 units 3 times daily, and Trulicity. DKA/HHS ruled out , anion gap is 8. - A1c 10.7% on 08/13, indicates uncontrolled diabetes despite reported compliance with insulin and Trulicity. - General diet -consulted glycemic control. blood glucoses favorable even with po steroid Patient is on basal bolus insulin with very tight sliding scale - (2) Acute hip pain: Plan: - Patient has a history of ongoing hip pain and sciatica, reports in the past 20 years she has been battling with this but over the last 9 days it is significantly worsened leading to falls over the past 2 days. - Hip x-ray, lumbar CT scan, head CT all unremarkable for acute injury. 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 - We will continue patient's home medications for pain management, including cyclobenzaprine, lidocaine patches, Voltaren gel, duloxetine NSAIDs, gabapentin, oxycodone. We will try 3 days of prednisone 40 starting the evening of 10/14 patient was given 1 dose of IV Dilaudid to help with pain Pain seems to be SI joint area and not completely consistent with Siatica MRI lumbar spine suggests spinal stenosis with changes to left sided nerve roots, Dr. Sharpe saw the patient for orthospine's recommendations- Neurogenic claudication due to lumbar spinal stenosis: Patient has severe spinal stenosis that is created with significant limitations with ambulation. We discussed possible surgical intervention. Will require at minimum a lumbar decompression and possible fusion L3-L4 L4-L5. L5-S1 may also need to be addressed. Risk benefits pros cons alternatives were in detail. At this time we will plan for surgery this week as she is medically cleared. - PT/OT to work with patient while admitted, suspect she may need placement if she is unable to ambulate safely at home and care for self. patient is medically risk optimized only challenge at this point some glucose variability is due to steroid use for pain control (3) Seizure: Plan: - Patient has history of seizure disorders, reported an episode at home despite compliance with her Keppra. - Loaded with a dose of IV Keppra in ED, did ncrease Keppra from 750 mg twice daily to 1000 mg BID as per Neurological recommendations . (4) Chronic low back pain with left-sided sciatica: Plan: - Obesity, sciatica, Tarlov cysts at L5-S1. Management as above, see "acute pain ". (5) Chronic obstructive pulmonary disease: Plan: - No evidence of acute exacerbation continue home inhalers, Flonase, Singulair. (6) Insulin dependent diabetes mellitus: Plan: - DRAFTER (CAD) ELECTRONIC> 65 units Lantus twice daily, NovoLog 12 units 3 times daily with meals, Trulicity weekly. - Patient has followed up with diabetes clinic, there is suspicion for noncompliance given her chronically elevated sugars to the 400-600 we will despite reported compliance with her insulin. - Management of acute hyperglycemia as above, will consult pharmacy to assist with hyperglycemic management during this admission. (7) Liver cirrhosis: Plan: - Reported history of, and has followed with hepatology previously, however has not seen them for the past year. - LFTs within normal limits on admission. Plan - SCDs, Lovenox for VTE ppx. Will need to hold Lovenox preoperatively - Full code. Pending placement Admission and Anticipated Discharge Date Admission Date: October 12, 2022 Subjective pt with persistent left SI pain and left posterior thigh pain. MRI suggests spinal stenosis, Dr. Sharpe did see the patient from orthospine evaluation feels patient is progressed to decompressive surgery to improve her symptoms given her imaging she is now agreeable to consider rehab once symptom control is achieved Review of Systems Review of Systems: Moderate distress and fatigue no headache, no visual changes no speech or swallowing issues no chest pain, pressure or palpitations no shortness of breath, cough or wheezes no abdominal pain, nausea or vomiting, diarrhea or constipation no dysuria, hematuria or frequency no focal joint pain or swelling Pain radiating down the left leg, mostly in thigh not below knee and not to foot no back pain, CVA tenderness or radicular pain no bruising, bleeding or rashes no focal signs of weakness or numbness or altered sensation no complaints of anxiety or depression.. Physical Exam Physical Exam: The patient appeared in moderate discomfort laying in bed in the afternoon continues requiring increased pain control vital signs as documented Extremities are nonedematous and pain radiates down the left leg Neurologic exam is alert and oriented, no focal loss of strength or sensation pain at left SI joint area radiating to left posterior thigh but not below knee no objective decrease in strength Overnight patient had some complaints of loss of sensation is always difficult given her diabetic neuropathy that she likely has however this is resolved upon my reevaluation. Skin is without bruises or rashes Psychologically is without concerns for anxiety or depression. Results & Data Results & Data ([facility]) Vital Signs (Past 12 Hours) Vital Signs Temp Pulse Resp BP Pulse Ox O2 Del Method 10/17/22 15:42 98.8 F 64 16 101/58 L 97 Room Air 10/17/22 08:00 Room Air 10/17/22 07:42 98.2 F 60 16 112/71 96 Room Air PG Care Time/CCT Total # of Minutes Spent Total Time Spent with Patient: Total time spent is greater than 50% in coordination of care (as documented) at patient's floor/unit and/or counseling patient: Coding Level of Care Code 05941 SUB INP/OBS CARE 2/35MIN Diagnoses Acute hyperglycemia R73.9 Acute hip pain M25.551 Laterality: right Seizure R56.9 Chronic low back pain with left-sided sciatica M54.42; G89.29 Chronic obstructive pulmonary disease J44.9 Insulin dependent diabetes mellitus E11.9; Z79.4 Liver cirrhosis K74.60 Hepatic cirrhosis type: unspecified hepatic cirrhosis (1) Acute hip pain Laterality: right Qualified Code(s): M25.551 - Pain in right hip (2) Liver cirrhosis Hepatic cirrhosis type: unspecified hepatic cirrhosis
[2022-10-17] MEDS: MONTELUKAST SODIUM 10 MG TABLET PO SCH (20:39)
[2022-10-17] MEDS: traZODone HCL 100 MG TAB PO SCH (20:40)
[2022-10-17] MEDS: busPIRone 5 MG TAB PO PRN (20:40)
[2022-10-17] MEDS: DULoxetine HCL 60 MG CAP PO SCH (20:41)
[2022-10-18] MEDS: INSULIN ASPART PER UNIT SC SCH ×5 (03:57→20:41)
[2022-10-18] MEDS: dexAMETHasone 4 MG in SYRINGE 0 ML IV SCH ×3 (05:32→21:46)
[2022-10-18] MEDS: HYDROmorphone INJ 0.5 MG/0.5 ML SYR IV PRN ×4 (07:31→21:46)
--- NOTE | 2022-10-18 07:31 | Hospitalist Progress Note ---
Date of Service October 18, 2022 Assessment & Plan (1) Acute hyperglycemia: Plan: - Patient presented with a blood sugar of 514 despite reported compliance with her medications which include Lantus 80 units twice daily, NovoLog 12 units 3 times daily, and Trulicity. DKA/HHS ruled out , anion gap is 8. - A1c 10.7% on 08/13, indicates uncontrolled diabetes despite reported compliance with insulin and Trulicity. - General diet -consulted glycemic control. blood glucoses favorable even with po steroid Patient is on basal bolus insulin with very tight sliding scale - (2) Acute hip pain: Plan: Spinal stenosis with left-sided nerve impingement MRI lumbar spine suggests spinal stenosis with changes to left sided nerve roots, Dr. Sharpe saw the patient for orthospine's recommendations- Neurogenic claudication due to lumbar spinal stenosis: Patient has severe spinal stenosis that is created with significant limitations with ambulation. We discussed possible surgical intervention. Will require at minimum a lumbar decompression and possible fusion L3-L4 L4-L5. L5-S1 may also need to be addressed. Risk benefits pros cons alternatives were in detail. At this time we will plan for surgery this week as she is medically cleared. - PT/OT to work with patient while admitted, suspect she may need placement if she is unable to ambulate safely at home and care for self. patient is medically risk optimized only challenge at this point some glucose variability is due to steroid use for pain control (3) Seizure: Plan: - Patient has history of seizure disorders, reported an episode at home despite compliance with her Keppra. - Loaded with a dose of IV Keppra in ED, did ncrease Keppra from 750 mg twice daily to 1000 mg BID as per Neurological recommendations . (4) Chronic obstructive pulmonary disease: Plan: - No evidence of acute exacerbation continue home inhalers, Flonase, Singulair. (5) Insulin dependent diabetes mellitus: Plan: - [employer]> 65 units Lantus twice daily, NovoLog 12 units 3 times daily with meals, Trulicity weekly. - Patient has followed up with diabetes clinic, there is suspicion for noncompliance given her chronically elevated sugars to the 400-600 we will despite reported compliance with her insulin. - Management of acute hyperglycemia as above, will consult pharmacy to assist with hyperglycemic management during this admission. (6) Liver cirrhosis: Plan: - Reported history of, and has followed with hepatology previously, however has not seen them for the past year. - LFTs within normal limits on admission. Plan - SCDs, Lovenox for VTE ppx. Will need to hold Lovenox preoperatively - Full code. Pending placement Admission and Anticipated Discharge Date Admission Date: October 12, 2022 Subjective Patient with left leg pain with standing which radiates from her buttocks and numbness with leg giving out her almost falling. Review of Systems Review of Systems: Moderate distress and fatigue no headache, no visual changes no speech or swallowing issues no chest pain, pressure or palpitations no shortness of breath, cough or wheezes no abdominal pain, nausea or vomiting, diarrhea or constipation no dysuria, hematuria or frequency no focal joint pain or swelling Pain radiating down the left leg, mostly in thigh not below knee and not to foot feels her strength gives out no back pain, CVA tenderness that is of a component of radicular pain no bruising, bleeding or rashes no focal signs of weakness or numbness or altered sensation no complaints of anxiety or depression.. Physical Exam Physical Exam: The patient appeared in moderate discomfort laying in bed in the afternoon continues requiring increased pain control vital signs as documented Extremities are nonedematous and pain radiates down the left leg Neurologic exam is alert and oriented, no focal loss of strength or sensation pain at left SI joint area radiating to left posterior thigh but not below knee no objective decrease in strength Overnight patient had some complaints of loss of sensation is always difficult given her diabetic neuropathy that she likely has however this is resolved upon my reevaluation. Skin is without bruises or rashes Psychologically is without concerns for anxiety or depression. Results & Data Results & Data ([facility]) Vital Signs (Past 12 Hours) Vital Signs Temp Pulse Resp BP Pulse Ox O2 Del Method 10/18/22 07:21 98.2 F 61 18 124/72 98 Room Air 10/17/22 21:25 98.1 F 91 H 18 120/71 95 Room Air PG Care Time/CCT Total # of Minutes Spent Total Time Spent with Patient: Total time spent is greater than 50% in coordination of care (as documented) at patient's floor/unit and/or counseling patient: Coding Level of Care Code 60886 SUB INP/OBS CARE 2/35MIN Diagnoses Acute hyperglycemia R73.9 Acute hip pain M25.551 Laterality: right Seizure R56.9 Chronic obstructive pulmonary disease J44.9 Insulin dependent diabetes mellitus E11.9; Z79.4 Liver cirrhosis K74.60 Hepatic cirrhosis type: unspecified hepatic cirrhosis (1) Acute hip pain Laterality: right Qualified Code(s): M25.551 - Pain in right hip (2) Liver cirrhosis Hepatic cirrhosis type: unspecified hepatic cirrhosis
[2022-10-18] MEDS: ORDER AWAITING ACTION: Cyclosporine [Restasis] 0.05 % Dropperette SCH ×2 (07:34→16:20)
[2022-10-18] MEDS: PANTOprazole 40 MG TAB PO SCH (08:38)
[2022-10-18] MEDS: levETIRAcetam 500 MG TAB PO SCH ×2 (08:38→21:47)
[2022-10-18] MEDS: GABAPENTIN 800 MG TAB PO SCH ×3 (08:38→21:48)
[2022-10-18] MEDS: ASPIRIN 81 MG ECTAB PO SCH (08:38)
[2022-10-18] MEDS: FAMOTIDINE 40 MG TABLET PO SCH ×2 (08:38→21:48)
[2022-10-18] MEDS: busPIRone 5 MG TAB PO PRN (08:38)
[2022-10-18] MEDS: FLUTICASONE/VILANTEROL 100/25MCG 14 PUFFS/INHALER INH SCH (08:39)
[2022-10-18] MEDS: LIDOCAINE 5% 1 PATCH TD SCH (08:42)
[2022-10-18] MEDS: LANTUS PER UNIT CHARGE SQ SCH ×2 (08:44→20:41)
[2022-10-18] MEDS: POLYETHYLENE (MIRALAX) 17 GM PACK PO SCH ×2 (08:44→21:45)
[2022-10-18] MEDS: oxyCODONE HCL IR 5 MG TAB (IMMEDIATE RELEASE) PO PRN ×3 (10:25→20:06)
--- NOTE | 2022-10-18 11:13 | Pharmacy Report ---
Pharmacy Glycemic Short Note 2 - Date of Service October 18, 2022 - Glycemic Short BSG Results (Last 24 hours): 10/17/22 10/17/22 10/17/22 11:59 16:51 20:48 POC Glucose 233 H 230 H 278 H 10/17/22 10/18/22 10/18/22 23:53 03:51 08:28 POC Glucose 283 H 222 H 163 H OUTPATIENT ANTIDIABETIC REGIMEN: * Lantus 85units SQ BID * Novolog 12 units TID * Trulicity 1.5mg SQ weekly * HbA1C: 10.7% (08/13/22) ASSESSMENT: 10/18/22 * Patient BSG's were [phone] mg/dL yesterday. * Dexamethasone 4mg IV Q8h continued. * Given persistent prandial hyperglycemia, the patient may benefit from tightening Novolog parameters. Currently on a 10-2 regimen. * This morning, the patient's fasting BSG was 163 mg/dL. Patient received 50 mg BID of Lantus yesterday. 10/17/22 * Patient's BSGs yesterday were 24-320-360-299 mg/dL. Patient received 145 units of basal (70 units of basal and 75 units of bolus). * Patient given dexamethasone 10 mg IV x 1 yesterday evening and then started on dexamethasone 4 mg IV q8 today. * Patient is acutely sensitive to steroids. * Fasting this AM 227 mg/dL. * Will increase basal to 100 units/day. This appears to be effective when patient receiving steroids. Note, will need to be rapidly decreased when steroids halted. * Tighten Novolog to achieve more bolus coverage to decrease basal coverage. Overnight checks to see what more basal needs required. 10/16/22 * Patient's BSGs yesterday were [phone] mg/dL. Fasting today is 87 mg/dL. * Patient received 183 units of insulin yesterday (100 units of basal and 83 units of bolus). * BSGs elevated due to prednisone 40 mg given evening of 10/14 and morning of 10/15. Prednisone 40 mg given 10/16 as well but then discontinued. * Due to larger amount of basal onboard, will hold on NPH for steroid induced hyperglycemia. * Based upon fastings from 10/13 and 10/14, it is possible that Lantus 70 units per day may be an appropriate basal rate. Start with 35 units BID. * For Novolog, tighten CR due to steroids but loosen CF as patient can overcorrect. 10/15/22: * Ms Vick received 117 units of insulin yesterday, of which 70 units were basal insulin. * Fasting BSG was well-above goal this morning (248 mg/dL), likely representing some basal insulin deficit. * Will increase Lantus at this time, and continue to titrate up until BSGs are well-controlled. * No change to Novolog parameters at this time. 10/14 * Patient received 70 units of basal yesterday, BSGs elevated as the day progressed, will increase basal and even out AM/PM dosing today * Also tighten CF/CR at this time too 10/13 * Patient received a total of 160 units of Lantus yesterday and 30 units of NovoLog. Of note patient was ordered for 40 units of Lantus for last evening but received 100 units. * Fasting BSG this morning was 97. Will proceed with a reduced total daily dose of insulin for today and re-assess ongoing dosing tomorrow morning. * Patient is ordered a diet but intake has been minimal thus far today. If appetite increases, NovoLog scale may need to be tightened further. 10/12 * 52 YO female admitted with acute hip pain and hyperglycemia. Not in DKA/HHS (AG-8, bicarb-27). Pharmacy consulted to assist with glycemic management. * BSG on arrival-514mg/dL. Pt received 10units IV regular insulin bolus X 1 around noon. Repeat BSG 374mg/dL. Currently NPO. * Patient reports she did not take her Lantus this AM, and appears to be non- compliant. Will initiate NovoLog severe stress q4h through tomorrow AM, then ACHS. Lantus 60 units SQ X 1 now with HS scale. * May require insulin infusion if BSGs do not continue to trend down. PLAN FOR INPATIENT GLYCEMIC CONTROL: * Basal insulin * Lantus 50 SQ BID * Bolus insulin * NovoLog per scale ACHS or Q6hrs while NPO * Goal Range: Low 110 mg/dL - High 140 mg/dL * Correction Factor: 10 mg/dL/unit * Nutritional / Prandial insulin per carb ratio of 1 unit per 1.5 grams CHO consumed
[2022-10-18] MEDS: MONTELUKAST SODIUM 10 MG TABLET PO SCH (21:47)
[2022-10-18] MEDS: DULoxetine HCL 60 MG CAP PO SCH (21:47)
[2022-10-18] MEDS: traZODone HCL 100 MG TAB PO SCH (21:48)
[2022-10-19] MEDS: ORDER AWAITING ACTION: Cyclosporine [Restasis] 0.05 % Dropperette SCH ×4 (00:02→23:51)
[2022-10-19] MEDS: HYDROmorphone INJ 0.5 MG/0.5 ML SYR IV PRN ×5 (02:09→21:06)
[2022-10-19] MEDS: oxyCODONE HCL IR 5 MG TAB (IMMEDIATE RELEASE) PO PRN ×4 (05:30→23:40)
[2022-10-19] MEDS: dexAMETHasone 4 MG in SYRINGE 0 ML IV SCH ×3 (05:31→22:17)
--- NOTE | 2022-10-19 07:42 | Hospitalist Progress Note ---
Date of Service October 19, 2022 Assessment & Plan (1) Acute hip pain: Plan: Spinal stenosis with left-sided nerve impingement MRI lumbar spine suggests spinal stenosis with changes to left sided nerve roots, Dr. Sharpe saw the patient for orthospine's recommendations- Neurogenic claudication due to lumbar spinal stenosis: Patient has severe spinal stenosis that is created with significant limitations with ambulation. We discussed possible surgical intervention. Will require at minimum a lumbar decompression and possible fusion L3-L4 L4-L5. L5-S1 may also need to be addressed. Risk benefits pros cons alternatives were in detail. At this time we will plan for surgery this week as she is medically cleared. - PT/OT to work with patient while admitted, suspect she may need placement if she is unable to ambulate safely at home and care for self. patient is medically risk optimized only challenge at this point some glucose variability is due to steroid use for pain control, laboratories reviewed 110 surgery planned for 10/20/22 (2) Acute hyperglycemia: Plan: - Patient presented with a blood sugar of 514 despite reported compliance with her medications which include Lantus 80 units twice daily, NovoLog 12 units 3 times daily, and Trulicity. DKA/HHS ruled out , anion gap is 8. - A1c 10.7% on 08/13, indicates uncontrolled diabetes despite reported compliance with insulin and Trulicity. - General diet -consulted glycemic control. blood glucoses favorable even with po steroid Patient is on basal bolus insulin with very tight sliding scale - (3) Seizure: Plan: - Patient has history of seizure disorders, reported an episode at home despite compliance with her Keppra. - Loaded with a dose of IV Keppra in ED, did ncrease Keppra from 750 mg twice daily to 1000 mg BID as per Neurological recommendations . (4) Chronic obstructive pulmonary disease: Plan: - stable, continue home inhalers, Flonase, Singulair. (5) Liver cirrhosis: Plan: - Reported history of, and has followed with hepatology previously, however has not seen them for the past year. - LFTs within normal limits on admission. Plan - SCDs, Lovenox for VTE ppx. Will need to hold Lovenox preoperatively - Full code. Pending placement Admission and Anticipated Discharge Date Admission Date: October 12, 2022 Subjective Patient continues with back pain and radicular leg weakness. This comes and goes definitely is positional worse with standing and bearing weight Review of Systems Review of Systems: Moderate distress and fatigue no headache, no visual changes no speech or swallowing issues no chest pain, pressure or palpitations no shortness of breath, cough or wheezes no abdominal pain, nausea or vomiting, diarrhea or constipation no dysuria, hematuria or frequency no focal joint pain or swelling Pain radiating down the left leg this is positional,, mostly in thigh not below knee and not to foot feels her strength gives out no back pain, CVA tenderness that is of a component of radicular pain no bruising, bleeding or rashes no focal signs of weakness or numbness or altered sensation no complaints of anxiety or depression.. Physical Exam Physical Exam: The patient appeared in moderate discomfort laying in bed in the afternoon continues requiring increased pain control vital signs as documented Extremities are nonedematous and pain radiates down the left leg Neurologic exam is alert and oriented, no focal loss of strength or sensation pain at left SI joint area radiating to left posterior thigh but not below knee no objective decrease in strength Overnight patient had some complaints of loss of sensation is always difficult given her diabetic neuropathy that she likely has however this is resolved upon my reevaluation. Skin is without bruises or rashes Psychologically is without concerns for anxiety or depression. Results & Data Results & Data ([facility]) Vital Signs (Past 12 Hours) Vital Signs Temp Pulse Resp BP BP Pulse Ox O2 Del Method 10/19/22 07:34 97.7 F 52 L 16 115/70 96 Room Air 10/18/22 23:04 97.9 F 77 18 145/76 H 94 Room Air PG Care Time/CCT Total # of Minutes Spent Total Time Spent with Patient: Total time spent is greater than 50% in coordination of care (as documented) at patient's floor/unit and/or counseling patient: Coding Level of Care Code 54115 SUB INP/OBS CARE 11/03MIN Diagnoses Acute hip pain M25.551 Laterality: right Acute hyperglycemia R73.9 Seizure R56.9 Chronic obstructive pulmonary disease J44.9 Liver cirrhosis K74.60 Hepatic cirrhosis type: unspecified hepatic cirrhosis (1) Acute hip pain Laterality: right Qualified Code(s): M25.551 - Pain in right hip (2) Liver cirrhosis Hepatic cirrhosis type: unspecified hepatic cirrhosis
--- NOTE | 2022-10-19 08:33 | Orthopedic Progress Note ---
Date of Service October 19, 2022 Assessment & Plan (1) Neurogenic claudication due to lumbar spinal stenosis: Plan: At this time awaiting insurance authorization to proceed with surgery. Hopefully will be able to do so tomorrow. Admission and Anticipated Discharge Date Admission Date: October 12, 2022 Subjective Patient continues to have back and leg pain with weakness Physical Exam Physical Exam: Patient is in bed. She does have reasonable plantar flexion dorsiflexion Results & Data ([facility]) Vital Signs (Past 12 Hours) Vital Signs Temp Pulse Resp BP BP Pulse Ox O2 Del Method 10/19/22 08:00 Room Air 10/19/22 07:34 36.5 C 52 L 16 115/70 96 Room Air 10/18/22 23:04 36.6 C 77 18 145/76 H 94 Room Air
[2022-10-19] MEDS: busPIRone 5 MG TAB PO PRN (08:44)
[2022-10-19] MEDS: PANTOprazole 40 MG TAB PO SCH ×2 (08:45→09:13)
[2022-10-19] MEDS: ASPIRIN 81 MG ECTAB PO SCH (08:45)
[2022-10-19] MEDS: GABAPENTIN 800 MG TAB PO SCH ×3 (08:45→22:16)
[2022-10-19] MEDS: FAMOTIDINE 40 MG TABLET PO SCH ×2 (08:45→22:17)
[2022-10-19] MEDS: levETIRAcetam 500 MG TAB PO SCH ×2 (08:45→22:16)
[2022-10-19] MEDS: LIDOCAINE 5% 1 PATCH TD SCH (08:46)
[2022-10-19] MEDS: INSULIN ASPART PER UNIT SC SCH ×4 (08:47→21:06)
[2022-10-19] MEDS: FLUTICASONE/VILANTEROL 100/25MCG 14 PUFFS/INHALER INH SCH (08:47)
[2022-10-19 08:48] LABS: Hemoglobin 12.8 g/dl (12.0-16.0); Mean Corpuscular Hemoglobin 32.4 pg (25.0-34.0); Mean Corpuscular Hgb Conc 34.6 g/dL (32.0-36.0); Mean Corpuscular Volume 93.7 fL (80.0-100.0); Mean Platelet Volume 12.3 fL (9.4-12.3); Platelet Count 110 K/uL (130-400); RDW Coefficient of Variation 13.6 % (11.5-14.5); RDW Standard Deviation 46.6 fL (36.4-46.3); Red Blood Count 3.95 M/uL (3.93-5.22); White Blood Count 5.38 K/ul (4.8-10.8)
[2022-10-19] MEDS: POLYETHYLENE (MIRALAX) 17 GM PACK PO SCH ×2 (08:52→21:07)
[2022-10-19 08:55] LABS: INR 1.2 (0.9-1.1); Prothrombin Time 12.2 Seconds (9.0-12.0)
[2022-10-19] MEDS ORDERED: LANTUS PER UNIT CHARGE SQ ONE ×2 (09:00→21:00)
[2022-10-19 09:46] LABS: Albumin Globulin Ratio 1.1 (0.9-2); BUN Creatinine Ratio 33.9 (10-20); Bilirubin,Total 0.3 mg/dl (0.2-1.0); Calcium 8.7 mg/dl (8.5-10.1); Creatinine Clr Calc Pharmacy 134.5 ml/min; Est GFR (African American) 122.5 ml/min; Est GFR (Non-African American) 105.7 ml/min; Globulin 2.7 gm/dl (2.5-4.0); Potassium 4.1 mmol/L (3.5-5.1); Total Protein 5.7 gm/dl (6.0-8.3)
--- NOTE | 2022-10-19 14:10 | Pharmacy Report ---
Pharmacy Glycemic Short Note 2 - Date of Service October 19, 2022 - Glycemic Short BSG Results (Last 24 hours): 10/18/22 10/18/22 10/19/22 17:34 20:27 07:55 Glucose POC Glucose 132 H 204 H 185 H 10/19/22 10/19/22 08:13 12:01 Glucose 184 H POC Glucose 205 H OUTPATIENT ANTIDIABETIC REGIMEN: * Lantus 85units SQ BID * Novolog 12 units TID * Trulicity 1.5mg SQ weekly * HbA1C: 10.7% (08/13/22) ASSESSMENT: 10/19/22 * Yesterday, BSG values were as follows: 222/[phone]. * Mealtime blood glucoses have demonstrated improvement over previous days following tightening of carb ratio from 2 to 1.5 units per gram of carbohydrate consumed. * Although the patient may benefit from further tightening of these Novolog parameters, additional data would be beneficial to determine risk-benefit i n doing so. * Dexamethasone 4mg IV Q8H continued. T2DM diet continued. * In observance of consistently high fasting BSG's, will increase daily Lantus dose by 15-20% by scaling tonight's dose. 10/18/22 * Patient BSG's were [phone]/283 mg/dL yesterday. * Dexamethasone 4mg IV Q8h continued. * Given persistent prandial hyperglycemia, the patient may benefit from tightening Novolog parameters. Currently on a 10-2 regimen. * This morning, the patient's fasting BSG was 163 mg/dL. Patient received 50 mg BID of Lantus yesterday. 10/17/22 * Patient's BSGs yesterday were 58-120-880-299 mg/dL. Patient received 145 units of basal (70 units of basal and 75 units of bolus). * Patient given dexamethasone 10 mg IV x 1 yesterday evening and then started on dexamethasone 4 mg IV q8 today. * Patient is acutely sensitive to steroids. * Fasting this AM 227 mg/dL. * Will increase basal to 100 units/day. This appears to be effective when patient receiving steroids. Note, will need to be rapidly decreased when steroids halted. * Tighten Novolog to achieve more bolus coverage to decrease basal coverage. Overnight checks to see what more basal needs required. Initial Assessment * 52 YO female admitted with acute hip pain and hyperglycemia. Not in DKA/HHS (AG-8, bicarb-27). Pharmacy consulted to assist with glycemic management. * BSG on arrival-514mg/dL. Pt received 10units IV regular insulin bolus X 1 around noon. Repeat BSG 374mg/dL. Currently NPO. * Patient reports she did not take her Lantus this AM, and appears to be non- compliant. Will initiate NovoLog severe stress q4h through tomorrow AM, then ACHS. Lantus 60 units SQ X 1 now with HS scale. * May require insulin infusion if BSGs do not continue to trend down. PLAN FOR INPATIENT GLYCEMIC CONTROL: * Basal insulin * 10/19/22: Lantus 60 SQ AM; Scaled dose this evening (50 units SQ if BSG less than 150 mg/dL, 60 units SQ if BSG greater than or equal to 150mg/dL). * Reevaluate for future administrations. * Bolus insulin * NovoLog per scale ACHS or Q6hrs while NPO * Goal Range: Low 110 mg/dL - High 140 mg/dL * Correction Factor: 10 mg/dL/unit * Nutritional / Prandial insulin per carb ratio of 1 unit per 1.5 grams CHO consumed
[2022-10-19] MEDS: MONTELUKAST SODIUM 10 MG TABLET PO SCH (22:16)
[2022-10-19] MEDS: traZODone HCL 100 MG TAB PO SCH (22:16)
[2022-10-19] MEDS: DULoxetine HCL 60 MG CAP PO SCH (22:17)
[2022-10-20] MEDS ORDERED: Nursing to Pharmacy Communication SCH ×2 (02:30→20:15)
[2022-10-20] MEDS: INSULIN ASPART PER UNIT SC SCH ×4 (06:05→21:41)
[2022-10-20] MEDS: dexAMETHasone 4 MG in SYRINGE 0 ML IV SCH ×2 (06:06→13:31)
[2022-10-20] MEDS: HYDROmorphone INJ 0.5 MG/0.5 ML SYR IV PRN ×3 (06:06→20:01)
[2022-10-20] MEDS: SODIUM CHLORIDE 0.9% 1000ML 1,000 ML IV SCH ×3 (08:56→23:22)
[2022-10-20] MEDS: ORDER AWAITING ACTION: Cyclosporine [Restasis] 0.05 % Dropperette SCH ×2 (08:59→23:22)
[2022-10-20] MEDS ORDERED: LANTUS PER UNIT CHARGE SQ ONE (09:00)
[2022-10-20] MEDS: FLUTICASONE PROPIONATE NA SPR 16 GM BTL NAE PRN (09:00)
[2022-10-20] MEDS: levETIRAcetam 500 MG TAB PO SCH ×2 (09:02→21:26)
[2022-10-20] MEDS: FLUTICASONE/VILANTEROL 100/25MCG 14 PUFFS/INHALER INH SCH (09:03)
[2022-10-20] MEDS: POLYETHYLENE (MIRALAX) 17 GM PACK PO SCH (09:03)
[2022-10-20] MEDS: LIDOCAINE 5% 1 PATCH TD SCH (09:03)
[2022-10-20] MEDS: ASPIRIN 81 MG ECTAB PO SCH (09:04)
[2022-10-20] MEDS: GABAPENTIN 800 MG TAB PO SCH ×3 (09:05→21:29)
[2022-10-20] MEDS: FAMOTIDINE 40 MG TABLET PO SCH ×2 (09:05→21:28)
[2022-10-20] MEDS: PANTOprazole 40 MG TAB PO SCH (09:06)
[2022-10-20] MEDS: oxyCODONE HCL IR 5 MG TAB (IMMEDIATE RELEASE) PO PRN ×2 (09:11→21:46)
--- NOTE | 2022-10-20 10:49 | Pharmacy Report ---
Pharmacy Glycemic Short Note 2 - Date of Service October 20, 2022 - Glycemic Short BSG Results (Last 24 hours): 10/19/22 10/19/22 10/19/22 12:01 16:57 20:20 POC Glucose 205 H 192 H 168 H 10/20/22 05:56 POC Glucose 203 H OUTPATIENT ANTIDIABETIC REGIMEN: * Lantus 85units SQ BID * Novolog 12 units TID * Trulicity 1.5mg SQ weekly * HbA1C: 10.7% (08/13/22) ASSESSMENT: 10/20/22: * Diet changed to NPO status at midnight on 10/20/22 in anticipation of surgery today, scheduled at 1415. * Will reduce total daily dose of Lantus by ~25%; will continue to trend as patient moves through the operative process and make adjustments as clinically appropriate. * Dexamethasone 4mg IV q8H continued; will maintain 10-1.5 Novolog parameters. 10/19/22 * Yesterday, BSG values were as follows: 222/[phone]. * Mealtime blood glucoses have demonstrated improvement over previous days following tightening of carb ratio from 2 to 1.5 units per gram of carbohydrate consumed. * Although the patient may benefit from further tightening of these Novolog parameters, additional data would be beneficial to determine risk-benefit in doing so. * Dexamethasone 4mg IV Q8H continued. T2DM diet continued. * In observance of consistently high fasting BSG's, will increase daily Lantus dose by 15-20% by scaling tonight's dose. 10/18/22 * Patient BSG's were [phone]/283 mg/dL yesterday. * Dexamethasone 4mg IV Q8h continued. * Given persistent prandial hyperglycemia, the patient may benefit from tightening Novolog parameters. Currently on a 10-2 regimen. * This morning, the patient's fasting BSG was 163 mg/dL. Patient received 50 mg BID of Lantus yesterday. 10/17/22 * Patient's BSGs yesterday were 53-447-175-299 mg/dL. Patient received 145 units of basal (70 units of basal and 75 units of bolus). * Patient given dexamethasone 10 mg IV x 1 yesterday evening and then started on dexamethasone 4 mg IV q8 today. * Patient is acutely sensitive to steroids. * Fasting this AM 227 mg/dL. * Will increase basal to 100 units/day. This appears to be effective when patient receiving steroids. Note, will need to be rapidly decreased when steroids halted. * Tighten Novolog to achieve more bolus coverage to decrease basal coverage. Overnight checks to see what more basal needs required. Initial Assessment * 52 YO female admitted with acute hip pain and hyperglycemia. Not in DKA/HHS (AG-8, bicarb-27). Pharmacy consulted to assist with glycemic management. * BSG on arrival-514mg/dL. Pt received 10units IV regular insulin bolus X 1 around noon. Repeat BSG 374mg/dL. Currently NPO. * Patient reports she did not take her Lantus this AM, and appears to be non- compliant. Will initiate NovoLog severe stress q4h through tomorrow AM, then ACHS. Lantus 60 units SQ X 1 now with HS scale. * May require insulin infusion if BSGs do not continue to trend down. PLAN FOR INPATIENT GLYCEMIC CONTROL: * Basal insulin * 10/19/22: Lantus 40 SQ AM x1. Will assess basal insulin after surgery. * Reevaluate for future administrations. * Bolus insulin * NovoLog per scale ACHS or Q6hrs while NPO * Goal Range: Low 110 mg/dL - High 140 mg/dL * Correction Factor: 10 mg/dL/unit * Nutritional / Prandial insulin per carb ratio of 1 unit per 1.5 grams CHO consumed
--- NOTE | 2022-10-20 14:21 | Anesthesiology Consultation ---
Date of Service October 20, 2022 Assessment & Plan Chart Review Chart Review: Acceptable Risk for Surgery and Patient NOT seen in Pre Admission Testing Consults Requested none ASA ASA4 Proposed Anesthesia Anesthesia Type: General History Surgery Operation Date: 10/20/22 14:15 Proposed Procedures p L3-L5 Decompression and Fusion - Kyaw Sharpe DO Height/Weight Height: 5 ft 7 in Weight: 93.1 kg Allergies Allergy/AdvReac Type Severity Reaction Status Date / Time acetaminophen AdvReac Severe LIVER Verified 10/10/22 20:32 COMPLICATIONS cephalexin AdvReac Severe Vomiting Verified 10/10/22 20:32 levofloxacin [From Levaquin] AdvReac Intermediate Vomiting Verified 10/10/22 20:32 Medications Home Medications Medication Instructions Recorded Confirmed Last Taken cyclobenzaprine 10 mg tablet 10 mg PO BID PRN Muscle Spasm ##0 11/18/17 10/12/22 03/12/22 albuterol sulfate 90 mcg/actuation 2 puff inhalation Q4H PRN 02/10/18 10/12/22 03/12/22 aerosol inhaler (Ventolin HFA) Shortness Of Breath Or Wheezing ##0 ibuprofen 800 mg tablet 800 mg PO TID PRN Pain 10/24/19 10/12/22 03/11/22 promethazine 25 mg tablet 25 mg PO Q6H PRN Nausea 10/24/19 10/12/22 03/06/22 fluticasone 232 mcg-salmeterol 14 2 inh inhalation BID PRN Shortness 08/21/20 10/12/22 03/12/22 mcg/actuation breath activated Of Breath powdr (AirDuo RespiClick) montelukast 10 mg tablet 10 mg PO HS 09/01/20 10/12/22 10/09/22 (Singulair) aspirin 81 mg tablet,delayed 81 mg PO QAM 10/28/20 10/12/22 10/10/22 release cyclosporine 0.05 % eye drops in a 2 drp ophthalmic (eye) Q12H 04/17/21 10/12/22 10/10/22 08:00 dropperette (Restasis) diclofenac sodium 1 % topical gel 4 g topical QID PRN Pain 07/20/21 10/12/22 03/06/22 albuterol sulfate 2.5 mg/3 mL 2.5 mg inhalation Q6 PRN Wheezing 01/19/22 10/12/22 03/12/22 (0.083 %) solution for nebulization famotidine 40 mg tablet 40 mg PO BID 01/19/22 10/12/22 10/10/22 08:00 fluticasone propionate 50 1 spray intranasal DAILY PRN 01/19/22 10/12/22 03/12/22 mcg/actuation nasal Congestion spray,suspension (Flonase Allergy Relief) lidocaine 5 % topical patch 1 patch transdermal DAILY PRN Pain 01/19/22 10/12/22 Unknown pantoprazole 20 mg tablet,delayed 20 mg PO QAM 01/19/22 10/12/22 10/10/22 release polyethylene glycol 3350 17 17 g PO BID 01/29/22 10/12/22 10/10/22 08:00 gram/dose oral powder (Miralax) trazodone 100 mg tablet 100 mg PO HS 01/29/22 10/12/22 10/09/22 duloxetine 60 mg capsule,delayed 60 mg PO HS 03/12/22 10/12/22 10/09/22 release gabapentin 800 mg tablet 800 mg PO TID 04/05/22 10/12/22 10/10/22 14:00 levetiracetam 750 mg tablet 750 mg PO BID #60 tabs 04/06/22 10/12/22 10/10/22 08:00 (Kecindy) buspirone 5 mg tablet 5 mg PO QID 07/30/22 10/12/22 Unknown oxycodone 5 mg tablet 5 mg PO BID PRN Pain 07/30/22 10/12/22 10/10/22 08:00 ondansetron 4 mg disintegrating 4 mg PO Q6H PRN nausea and 08/11/22 10/12/22 Unknown tablet vomiting #12 tabs insulin aspart U-100 100 unit/mL 12 unit (0.12 mL) SC TID #15 mL 08/16/22 10/12/22 10/10/22 (3 mL) subcutaneous pen (Novolog Flexpen U-100 Insulin aspart) insulin glargine 100 unit/mL (3 65 unit subcut BID 10/05/22 10/12/22 10/10/22 08:00 mL) subcutaneous pen (Lantus Solostar U-100 Insulin) dulaglutide 4.5 mg/0.5 mL 4.5 mg (0.5 mL) subcut WK #2 mL 10/06/22 10/12/22 10/05/22 subcutaneous pen injector ([employer]) etodolac 200 mg capsule 200 mg PO Q12H PRN pain #14 caps 10/10/22 10/12/22 Unknown dulaglutide 1.5 mg/0.5 mL 1.5 mg subcut UD 10/12/22 10/12/22 Unknown subcutaneous pen injector ([employer]) nystatin 100,000 unit/gram topical 1 applic topical UD 10/12/22 10/12/22 Unknown powder ([facility]) Active Medications Generic Name Dose Route Start Last Admin Trade Name Freq PRN Reason Stop Dose Admin Aspirin 81 mg 10/13/22 09:00 10/20/22 09:04 Aspirin 81 Mg Ectab PO 11/12/22 08:59 81 mg QAM YEN Administration Buspirone HCl 5 mg 10/12/22 15:07 10/19/22 08:44 Buspirone 5 Mg Tab PO 11/11/22 15:06 5 mg QID PRN Administration anxiety Cyclobenzaprine HCl 10 mg 10/12/22 15:07 10/15/22 22:08 Cyclobenzaprine Hcl 10 Mg Tab PO 11/11/22 15:06 10 mg BID PRN Administration Muscle Spasm Diclofenac Sodium 4 gm 10/12/22 15:07 10/17/22 20:43 Diclofenac Sod 1% Gel 100 Gm Tube EXT 11/11/22 15:06 4 gm QID PRN Administration Pain Protocol Duloxetine HCl 60 mg 10/12/22 21:00 10/19/22 22:17 Duloxetine Hcl 60 Mg Cap PO 11/11/22 20:59 60 mg HS YEN Administration Famotidine 40 mg 10/12/22 21:00 10/20/22 09:05 Famotidine 40 Mg Tablet PO 11/11/22 20:59 Not Given BID YEN Fluticasone Propionate 1 sprays 10/12/22 15:07 10/20/22 09:00 Fluticasone Propionate Na Spr 16 Gm Btl LYUDMILA 11/11/22 15:06 1 sprays DAILY PRN Administration Congestion Fluticasone/Vilanterol 1 puffs 10/13/22 09:00 10/20/22 09:03 Fluticasone/Vilanterol 100/25mcg 14 Puffs/Inhaler INH 11/12/22 08:59 1 puffs DAILY YEN Administration Gabapentin 800 mg 10/12/22 15:07 10/20/22 13:32 Gabapentin 800 Mg Tab PO 11/11/22 15:06 Not Given TID YEN Hydromorphone HCl 0.5 mg 10/17/22 18:02 10/20/22 11:26 Hydromorphone Inj 0.5 Mg/0.5 Ml Syr IV 10/30/22 16:14 0.5 mg Q4H PRN Administration moderate to severe pain Dexamethasone 4 mg/ Syringe 1 mls @ 1 mls/min 10/17/22 06:00 10/20/22 13:31 IV 11/16/22 05:59 1 mls/min Q8H YEN Administration Sodium Chloride 1,000 mls @ 100 mls/hr 10/20/22 07:45 10/20/22 14:00 Nss 1000ml IV 11/19/22 07:44 0 mls/hr .Q10H YEN Infusion Insulin Aspart 0 units 10/20/22 06:00 10/20/22 13:18 Insulin Aspart Per Unit SC 11/19/22 05:59 2 units Q6 YEN Administration Levetiracetam 1,000 mg 10/14/22 09:00 10/20/22 09:02 Levetiracetam 500 Mg Tab PO 11/13/22 08:59 1,000 mg BID YEN Administration Lidocaine 1 patch 10/12/22 15:07 10/20/22 09:03 Lidocaine 5% 1 Patch TD 11/11/22 15:06 Not Given DAILY YEN Miscellaneous 1 each 10/12/22 16:00 10/20/22 08:59 Order Awaiting Action: Cyclosporine [Restasis] 0.05 % Dropperette N/A 11/11/22 15:59 Not Given QS YEN Miscellaneous 1 each 10/12/22 21:00 10/19/22 22:16 Remove Lidoderm Patch N/A 11/11/22 20:59 1 each DAILY@2100 YEN Administration Montelukast Sodium 10 mg 10/12/22 21:00 10/19/22 22:16 Montelukast Sodium 10 Mg Tablet PO 11/11/22 20:59 10 mg HS YEN Administration Oxycodone HCl 10 mg 10/18/22 12:23 10/20/22 09:11 Oxycodone Hcl Ir 5 Mg Tab (Immediate Release) PO 10/26/22 20:59 10 mg Q6H PRN Administration Severe Pain Pantoprazole Sodium 40 mg 10/19/22 09:00 10/20/22 09:06 Pantoprazole 40 Mg Tab PO 11/18/22 08:59 Not Given QAM YEN Polyethylene Glycol 17 gm 10/12/22 21:00 10/20/22 09:03 Polyethylene (Miralax) 17 Gm Pack PO 11/11/22 20:59 Not Given BID YEN Trazodone HCl 100 mg 10/12/22 21:00 10/19/22 22:16 Trazodone Hcl 100 Mg Tab PO 11/11/22 20:59 100 mg HS YEN Administration Past Medical History Medical History Abdominal pain Acute hyperglycemia Anxiety Brain cyst Chest pain Chronic low back pain with left-sided sciatica Chronic obstructive pulmonary disease Dental abscess Depression Elevated lactic acid level Emphysema of lung Encounter for pre-operative examination Hx of blood clots Hyperglycemia Hyperglycemia Hyperglycemia due to type 2 diabetes mellitus Hypertension Hypokalemia Hypomagnesemia Hyponatremia Insulin dependent diabetes mellitus Lightheadedness Medication reaction Obesity Periapical abscess with facial involvement Pulmonary embolism Reports was anticoagulation x 60 days, not on chronic anticoagulation Syncope Thrombocytopenia Tinea corporis Tinea cruris Uncontrolled type 2 diabetes mellitus Exercise / Class Metabolic Activity III < 4 Walking/Shop/Light housework Past Family History Family History Mother , 73 Heart disease Cancer small cell ca lung caused at 73 Father Skin cancer Brother No problems noted. Sister No problems noted. Grandmother (Maternal) , 48 Heart disease T2DM (type 2 diabetes mellitus) Grandmother (Paternal) , 83 Heart disease Kidney disease Uncle T2DM (type 2 diabetes mellitus) Other Diabetes Obesity Denies family history of Ovarian cancer Breast cancer Colorectal cancer Uterine cancer Past Surgical History Surgical History History of laparoscopic cholecystectomy Hx of oral surgery (02/15/20) Acute right submandibular, submental space infection with floor of mouth infection caused by infected lower teeth. Dr. Rios 02/15/20 S/P dilation and curettage S/P laparoscopic hernia repair S/P laparoscopic procedure ovarian cyst surgery Past Anesthesia History No Hx of Anesthesia Complications and No Family Hx of Anesthesia Complications History of PONV No Hx of PONV and No Hx of Motion Sickness Social History Smoking Status: Former smoker tobacco type: cigarettes Smoking cigarettes per day: 5 Hx Alcohol Use: No Alcohol type: wine alcohol intake frequency: holidays/special occasions only Hx Substance Use: No substance use type: does not use Last Used Substance: Hours (ago) Physical Exam Vital Signs Last Vital Signs Temp 36.8 C 10/20/22 07:31 Pulse 51 L 10/20/22 07:31 Resp 16 10/20/22 07:31 BP 100/66 10/20/22 07:31 Pulse Ox 97 10/20/22 07:31 O2 Del Method 10/20/22 07:31 Testing Laboratory Results 10/19/22 08:13 10/19/22 08:13 PT 12.2 Seconds (9.0-12.0) H 10/19/22 08:13 INR 1.2 (0.9-1.1) H 10/19/22 08:13 Urine Color Yellow 10/12/22 13:37 Urine Appearance Clear (Clear) 10/12/22 13:37 Urine pH 6.0 (4.5-7.5) 10/12/22 13:37 Ur Specific [place] > 1.045 (1.000-1.030) H 10/12/22 13:37 Urine Protein 1+ (Negative) H 10/12/22 13:37 Urine Glucose (UA) 3+ (Negative) H 10/12/22 13:37 Urine Ketones Negative (Negative) 10/12/22 13:37 Urine Nitrite Negative (Negative) 10/12/22 13:37 Ur Leukocyte Esterase Trace (Negative) H 10/12/22 13:37 Urine WBC (Auto) >30 /hpf (0-5) H 10/12/22 13:37 Urine RBC (Auto) 0-4 /hpf (0-4) 10/12/22 13:37 U Hyaline Cast (Auto) 0 /lpf (0-5) 10/12/22 13:37 U Epithel Cells (Auto) 20-30 /lpf (0-5) H 10/12/22 13:37 Urine Bacteria (Auto) Negative (Negative) 10/12/22 13:37 Blood Type A Positive 10/19/22 16:10 Antibody Screen NEGATIVE 10/19/22 16:10 10/12/22 13:37 Urine Culture - Final Urine,Clean Catch Lactobacillus species 10/20/22 10/20/22 11:53 05:56 POC Glucose 160 H 203 H Electrocardiogram Date: 10/12/22 Findings: + NSR @ ( 94;anter. infarct ? age) Echocardiogram Date: 02/23/22 EF: 50% LV Function: normal RWMA: + none Other Findings: + diastolic dysfunction (grade 1) Valvular Disease: + no significant valvular disease
[2022-10-20] MEDS ORDERED: PROMETHAZINE HCL 12.5 MG in SODIUM CHLORIDE 0.9% 50 ML IV PRN ×2 (14:38→18:44)
[2022-10-20] MEDS ORDERED: ePHEDrine sulfate 50 MG/ML AMP IV PRN (14:38)
[2022-10-20] MEDS ORDERED: fentaNYL citrate 100 MCG/2 ML VIAL IV PRN (14:38)
[2022-10-20] MEDS ORDERED: ONDANSETRON INJ 2 MG/ML 2 ML VIAL IV PRN ×2 (14:38→18:44)
[2022-10-20] MEDS ORDERED: FLUMAZENIL 0.1 MG/1 ML 10 ML VIAL IV PRN (14:38)
[2022-10-20] MEDS ORDERED: HYDROmorphone INJ 1 MG/ML SYRINGE IV PRN (14:38)
[2022-10-20] MEDS ORDERED: NALOXONE HCL 0.4 MG/1 ML VIAL/CARP IV PRN ×2 (14:38→18:44)
[2022-10-20] MEDS ORDERED: LABETALOL HCL IV 5 MG/ML 20ML IV PRN (14:38)
[2022-10-20] MEDS ORDERED: ATROPINE SULFATE 0.1 MG/ML 10ML SYR IV PRN (14:38)
[2022-10-20] MEDS ORDERED: MIDAZOLAM HCL 1 MG/ML 2ML VIAL ONE (14:54)
[2022-10-20] MEDS ORDERED: HYDROmorphone INJ 2 MG/ML SYR/VIAL ONE (14:54)
--- NOTE | 2022-10-20 15:07 | History & Physical Bridge Note ---
Date of Service October 20, 2022 History & Physical Bridge Note I have examined the patient, reviewed the History & Physical and in the interval since the performance of the History & Physical I have noted the following changes of clinical significance: no changes noted Decompression and fusion L3-L5
[2022-10-20] MEDS ORDERED: CLINDAMYCIN 900 MG/D5W 50 ML BAG IV ONE (15:14)
[2022-10-20] MEDS ORDERED: ceFAZolin 330 MG/ML 1 GM VIAL ONE (15:21)
[2022-10-20] MEDS ORDERED: BUPIVACAINE/EPINEPHRINE 0.25% 1:200,000 30 ML VIAL ONE (15:21)
[2022-10-20] MEDS ORDERED: GLYCOPYRROLATE 0.2 MG/ML VIAL ONE (16:14)
[2022-10-20] MEDS ORDERED: NEOSTIGMINE METHYLSULFATE 1 MG/ML 10ML VIAL ONE (16:14)
[2022-10-20] MEDS ORDERED: PROPOFOL IV EMULSION 10 MG/ML 20 ML VIAL IV ONE (16:14)
[2022-10-20] MEDS ORDERED: LIDOCAINE 2% MPF LOCAL 5 ML VIAL INFIL ONE (16:14)
[2022-10-20] MEDS ORDERED: DEXAMETHASONE SOD INJ 4 MG/ML VIAL ONE (16:14)
[2022-10-20] MEDS ORDERED: ONDANSETRON INJ 2 MG/ML 2 ML VIAL ONE (16:14)
[2022-10-20] MEDS ORDERED: ROCURONIUM BROMIDE 10 MG/ML 5 ML VIAL IV ONE (16:14)
[2022-10-20] MEDS ORDERED: ePHEDrine sulfate 50 MG/ML AMP ONE (16:16)
[2022-10-20] MEDS ORDERED: SODIUM CHLORIDE 0.9% INJ 10 ML VIAL ONE (16:16)
--- NOTE | 2022-10-20 16:23 | Hospitalist Progress Note ---
Date of Service October 20, 2022 Assessment & Plan (1) Acute hip pain: Plan: Spinal stenosis with left-sided nerve impingement MRI lumbar spine suggests spinal stenosis with changes to left sided nerve roots, Dr. Sharpe saw the patient for orthospine's recommendations- Neurogenic claudication due to lumbar spinal stenosis: Patient has severe spinal stenosis that is created with significant limitations with ambulation. We discussed possible surgical intervention. Will require at minimum a lumbar decompression and possible fusion L3-L4 L4-L5. L5-S1 may also need to be addressed. Risk benefits pros cons alternatives were in detail. At this time we will plan for surgery this week as she is medically cleared. - PT/OT to work with patient while admitted, suspect she may need placement if she is unable to ambulate safely at home and care for self. patient is medically risk optimized only challenge at this point some glucose variability is due to steroid use for pain control, laboratories reviewed 10/19 pt is stable and risk optimized surgery planned for 10/20/22 (2) Acute hyperglycemia: Plan: - Patient presented with a blood sugar of 514 despite reported compliance with her medications which include Lantus 80 units twice daily, NovoLog 12 units 3 times daily, and Trulicity. DKA/HHS ruled out , anion gap is 8. - A1c 10.7% on 08/13, indicates uncontrolled diabetes despite reported compliance with insulin and Trulicity. - General diet -consulted glycemic control. blood glucoses favorable even with po steroid Patient is on basal bolus insulin with very tight sliding scale - (3) Seizure: Plan: - Patient has history of seizure disorders, reported an episode at home despite compliance with her Keppra. - Loaded with a dose of IV Keppra in ED, did ncrease Keppra from 750 mg twice daily to 1000 mg BID as per Neurological recommendations . (4) Chronic obstructive pulmonary disease: Plan: - stable, continue home inhalers, Flonase, Singulair. (5) Liver cirrhosis: Plan: - Reported history of, and has followed with hepatology previously, however has not seen them for the past year. - LFTs within normal limits on admission. Plan - SCDs, Lovenox for VTE ppx. Will need to hold Lovenox preoperatively - Full code. Pending placement Admission and Anticipated Discharge Date Admission Date: October 12, 2022 Subjective Patient continues with back pain and radicular leg weakness. This comes and goes definitely is positional worse with standing and bearing weight for OR 10/20/22 Review of Systems Review of Systems: Moderate distress and fatigue no headache, no visual changes no speech or swallowing issues no chest pain, pressure or palpitations no shortness of breath, cough or wheezes no abdominal pain, nausea or vomiting, diarrhea or constipation no dysuria, hematuria or frequency no focal joint pain or swelling Pain radiating down the left leg this is positional,, mostly in thigh not below knee and not to foot feels her strength gives out no back pain, CVA tenderness that is of a component of radicular pain no bruising, bleeding or rashes no focal signs of weakness or numbness or altered sensation no complaints of anxiety or depression.. Physical Exam Physical Exam: The patient appeared in moderate discomfort laying in bed in the afternoon continues requiring increased pain control vital signs as documented Extremities are nonedematous and pain radiates down the left leg Neurologic exam is alert and oriented, no focal loss of strength or sensation pain at left SI joint area radiating to left posterior thigh but not below knee no objective decrease in strength Overnight patient had some complaints of loss of sensation is always difficult given her diabetic neuropathy that she likely has however this is resolved upon my reevaluation. Skin is without bruises or rashes Psychologically is without concerns for anxiety or depression. Results & Data Results & Data ([facility]) Vital Signs (Past 12 Hours) Vital Signs Temp Pulse Resp BP Pulse Ox O2 Del Method 10/20/22 07:31 98.2 F 51 L 16 100/66 97 Room Air PG Care Time/CCT Total # of Minutes Spent Total Time Spent with Patient: Total time spent is greater than 50% in coordination of care (as documented) at patient's floor/unit and/or counseling patient: Coding Level of Care Code 91751 SUB INP/OBS CARE 2/35MIN Diagnoses Acute hip pain M25.551 Laterality: right Acute hyperglycemia R73.9 Seizure R56.9 Chronic obstructive pulmonary disease J44.9 Liver cirrhosis K74.60 Hepatic cirrhosis type: unspecified hepatic cirrhosis (1) Acute hip pain Laterality: right Qualified Code(s): M25.551 - Pain in right hip (2) Liver cirrhosis Hepatic cirrhosis type: unspecified hepatic cirrhosis
[2022-10-20] MEDS ORDERED: FLOSEAL HEMOSTATIC MATRIX 10ML TOP ONE (16:33)
--- NOTE | 2022-10-20 17:33 | Operative Report ---
Post Operative Report Pre & Post Diagnosis Operation Date: 10/20/22 14:15 Pre-Op Diagnosis: Neurogenic Claudication due to Lumbar Spinal Stenosis Post-Op Diagnosis: Neurogenic Claudication due to Lumbar Spinal Stenosis I identified the patient and participated in the time-out.: Yes Procedure Operation Date: 10/20/22 14:15 Actual Procedures #1 lumbar decompression bilateral medial facetectomies and foraminotomies L2-L3, L3-L4 and L4-5. #2 posterior spinal fusion L3-L4 and L4-5. #3 placement posterior instrumentation L3-L4 L4-L5. #4 interbody fusion L3-L4 L4-L5. #5 placement of Spira 13 x 26 mm at L3-L4 and 14 x 26 mm at L4-L5. #6 placement locally harvested morselized autograft in the posterior gutters. #7 placement of I factor combined with V toss in the interbody space and posterior lateral gutters. Surgeon Kyaw Sharpe, DO [employer] Rider Kennedi Finnegan Estimated Blood Loss 250 Findings See Below Patient is 5 foot 7 weighing over 93 kg with a BMI in excess of 32. The patient's body was did contribute to significant technical difficulty requiring her deepest retractors longer instruments in order to perform her procedure. This had at least 50% increased operative time. Specimens None Indications This is a 52-year-old female presents above-mentioned diagnosis after noting marked decline in neurologic status we decided to undergo urgent decompression and fusion. Description of Procedure Patient was met with identified informed consent obtained. Patient was then taken to the operative suite underwent a patient placed in a prone position the [place] table top Adonis frame. All bony prominences well-padded eyes inspected to ensure no external pressure placed upon the. This point the lumbar spine was prepped and draped in normal sterile fashion. Sharp dissection with the assistance of Bovie cartilage from down to and exposing the lamina and transverse processes of of L3-L4-L5 bilaterally. From caudal to cephalad fashion complete laminectomy of L4 L3 impression laminectomy of L2 was performed including bilateral medial facetectomies and foraminotomies addressing severe spinal stenosis. Pedicle screws were then placed in L3 L4-5 bilaterally with assistance of fluoroscopy and appropriately sized facundo placed. By way of a transforaminal approach on the left pleat discectomy of L4-L5 was performed endplates curetted to subcortical any bone and a 14 x 26 mm spiral cage with I factor tapped in position. Then proceeded to L3-L4 and again by way of a transfemoral approach and left complete discectomy performed endplates curetted to subcortically bone and a 13 x 26 mm spiral cage with I factor tapped the position. The rods were then locked into final position bilaterally. The transverse processes of L3-L4-L5 burred to subcortically bone. I factor one of the test and locally harvested morselized autograft was then placed in the posterior gutters. 15 round JACQUE drain inserted. The incision was then closed with 1 Vicryl the fascia 2-0 Vicryl subcutaneously and 4 Monocryl for final skin closure. Steri-Strips dressings placed. Patient waken taken to PACU in stable condition. Please note spinal cord monitoring was utilized at the procedure no changes noted. Lastly Kennedi Finnegan was present at the entire procedure and while the patient positioning complex portions of the surgery and fascial closure. I attest to the content of the Intraoperative Record and any orders documented therein. Any exceptions are noted below.
--- NOTE | 2022-10-20 18:09 | Fluoroscopy Report ---
INTRAOPERATIVE RADIOGRAPHS CLINICAL HISTORY: Lumbar spinal fusion. Fluoroscopy time: 21 seconds. FINDINGS: 3 spot fluoroscopic views of the lumbar spine are obtained. There has been discectomy at L3 -L4 and L4-L5 with laminectomy and posterior fusion at L3-L5. Interpedicular screws are in place. The orthopedic hardware appears intact. IMPRESSION: Intraoperative images from lumbar spinal fusion surgery as above. Electronically signed by: Kumar Caldwell M.D. 10/20/2022 6:08 PM
--- NOTE | 2022-10-20 18:37 | Anesthesiology Progress Note ---
Date of Service October 20, 2022 Anesthesia Post Procedure Vital Signs Vital Signs: Temp Pulse Pulse Resp BP Pulse Ox O2 Del Method 10/20/22 18:30 54 L 13 118/65 95 Room Air 10/20/22 18:20 36.7 C 52 L 12 111/64 97 Room Air 10/20/22 18:10 52 L 12 115/66 98 Oxymask 10/20/22 18:00 51 L 12 129/65 99 Oxymask 10/20/22 17:50 54 L 12 140/75 100 Oxymask 10/20/22 17:45 36.5 C 71 16 158/85 H 100 Oxymask 10/20/22 07:31 36.8 C 51 L 16 100/66 97 Room Air 10/19/22 19:15 Room Air 10/19/22 22:05 36.9 C 72 17 119/68 96 Room Air O2 Flow Rate 10/20/22 18:30 10/20/22 18:20 10/20/22 18:10 2 10/20/22 18:00 3 10/20/22 17:50 6 10/20/22 17:45 6 10/20/22 07:31 10/19/22 19:15 10/19/22 22:05 Pain Intensity Right Hip: Pain Intensity: 9 Bilateral Lower Back: Pain Intensity: 9 Left Lower Back: Pain Intensity: 8 Transfer of Care Handoff Completed per policy Notes Mental Status: alert / awake / arousable Patient Amnestic to Procedure: Yes Nausea / Vomiting: adequately controlled Pain: adequately controlled Airway Patency, RR, SpO2: stable & adequate BP & HR: stable & adequate Hydration State: stable & adequate Anesthetic Complications: no major complications apparent
[2022-10-20] MEDS ORDERED: ACETAMINOPHEN 1,000 MG/100 ML VIAL IV PRN (18:44)
[2022-10-20] MEDS ORDERED: traMADol HCL 50 MG TABLET PO PRN (18:44)
[2022-10-20] MEDS ORDERED: MAGNESIUM HYDROXIDE SUSP 30 ML UDC PO PRN (18:44)
[2022-10-20] MEDS ORDERED: ONDANSETRON 4 MG OD TAB PO PRN (18:44)
[2022-10-20] MEDS ORDERED: bisacodyL 10 MG SUPP PR PRN (18:44)
[2022-10-20] MEDS ORDERED: LORazepam 0.5 MG TAB PO PRN (18:44)
[2022-10-20] MEDS ORDERED: METOCLOPRAMIDE HCL INJ 5 MG/ML 2 ML VIAL IV PRN (18:44)
[2022-10-20] MEDS ORDERED: SOD PHOSPHATE/SOD BIPHOSPHATE ENEMA 132 ML BTL PR PRN (18:44)
[2022-10-20] MEDS ORDERED: FAMOTIDINE 20 MG TAB PO PRN (18:44)
[2022-10-20] MEDS ORDERED: diphenhydrAMINE Capsule 25 MG CAP PO PRN (18:44)
[2022-10-20] MEDS ORDERED: DO NOT ADMINISTER PNEUMOCOCCAL VACCINE PRN (18:44)
[2022-10-20] MEDS ORDERED: hydrOXYzine HCl 25 MG TAB PO PRN (18:44)
[2022-10-20] MEDS ORDERED: DO NOT ADMINISTER FLU VACCINE PRN (18:44)
[2022-10-20] MEDS ORDERED: LORazepam 2 MG/1 ML VIAL IV PRN (18:44)
[2022-10-20] MEDS ORDERED: ACETAMINOPHEN 500 MG TAB PO PRN (18:44)
[2022-10-20] MEDS ORDERED: ALUMINUM/MAGNESIUM SUSP 30 ML UDC PO PRN (18:44)
[2022-10-20] MEDS ORDERED: LANTUS PER UNIT CHARGE SQ SCH (21:00)
[2022-10-20] MEDS: MONTELUKAST SODIUM 10 MG TABLET PO SCH (21:26)
[2022-10-20] MEDS: DULoxetine HCL 60 MG CAP PO SCH (21:27)
[2022-10-20] MEDS: traZODone HCL 100 MG TAB PO SCH (21:27)
[2022-10-20] MEDS: DOCUSATE SODIUM/SENNA 50/8.6MG TAB PO SCH (21:28)
[2022-10-20] MEDS: CLINDAMYCIN/D5W 600 MG/50 ML BAG IV SCH ×2 (23:04→23:05)
[2022-10-21] MEDS: oxyCODONE HCL IR 5 MG TAB (IMMEDIATE RELEASE) PO PRN ×3 (01:37→21:00)
[2022-10-21] MEDS: CLINDAMYCIN/D5W 600 MG/50 ML BAG IV SCH ×2 (01:37→08:39)
[2022-10-21] MEDS: SODIUM CHLORIDE 0.9% 1000ML 1,000 ML IV SCH (04:19)
[2022-10-21] MEDS: POLYETHYLENE (MIRALAX) 17 GM PACK PO SCH ×4 (05:44→23:15)
[2022-10-21 08:16] LABS: Basophils # (auto) 0.01 K/uL (0-0.2); Basophils % (auto) 0.1 %; Eosinophils # (auto) 0.01 K/uL (0-0.50); Eosinophils % (auto) 0.1 %; Hematocrit (blood only) 35.2 % (34.1-44.9); Hemoglobin 11.7 g/dl (12.0-16.0); Immature Granulocytes # (auto) 0.11 K/uL (0.00-0.02); Immature Granulocytes % (auto) 0.9 %; Lymphocytes # (auto) 3.02 K/uL (1.2-3.4); Lymphocytes % (auto) 24.1 %; Mean Corpuscular Hemoglobin 31.7 pg (25.0-34.0); Mean Corpuscular Hgb Conc 33.2 g/dL (32.0-36.0); Mean Corpuscular Volume 95.4 fL (80.0-100.0); Mean Platelet Volume 11.6 fL (9.4-12.3); Monocytes # (auto) 1.72 K/uL (0.24-0.82); Monocytes % (auto) 13.7 %; Neutrophils # (auto) 7.64 K/uL (1.4-6.5); Neutrophils % (auto) 61.1 %; Platelet Count 152 K/uL (130-400); RDW Coefficient of Variation 14.2 % (11.5-14.5); RDW Standard Deviation 49.1 fL (36.4-46.3); Red Blood Count 3.69 M/uL (3.93-5.22); White Blood Count 12.51 K/ul (4.8-10.8)
[2022-10-21] MEDS: FLUTICASONE/VILANTEROL 100/25MCG 14 PUFFS/INHALER INH SCH (08:32)
[2022-10-21] MEDS: FAMOTIDINE 40 MG TABLET PO SCH ×2 (08:33→19:35)
[2022-10-21] MEDS: busPIRone 5 MG TAB PO PRN (08:33)
[2022-10-21] MEDS: GABAPENTIN 800 MG TAB PO SCH ×3 (08:33→19:34)
[2022-10-21] MEDS: ASPIRIN 81 MG ECTAB PO SCH (08:34)
[2022-10-21] MEDS: PANTOprazole 40 MG TAB PO SCH (08:34)
[2022-10-21] MEDS: levETIRAcetam 500 MG TAB PO SCH ×2 (08:34→19:33)
--- NOTE | 2022-10-21 08:58 | Pharmacy Report ---
Pharmacy Glycemic Short Note 2 - Date of Service October 21, 2022 - Glycemic Short BSG Results (Last 24 hours): 10/20/22 10/20/22 10/20/22 11:53 17:50 19:18 POC Glucose 160 H 132 H 125 H 10/20/22 10/21/22 21:32 07:57 POC Glucose 235 H 123 H OUTPATIENT ANTIDIABETIC REGIMEN: * Lantus 85units SQ BID * Novolog 12 units TID * Trulicity 1.5mg SQ weekly * HbA1C: 10.7% (08/13/22) ASSESSMENT: 10/21/22: * Patient received total of 110 units of insulin yesterday, of which 70 units were basal insulin * Fasting BSG 123 mg/dL - patient had been on scheduled IV dexamethasone which was d/c last evening therefore anticipate insulin needs to decrease * No steroids ordered today therefore will loosen novolog parameters. Will continue with around 60-70 units of basal/day 10/20/22: * Diet changed to NPO status at midnight on 10/20/22 in anticipation of surgery today, scheduled at 1415. * Will reduce total daily dose of Lantus by ~25%; will continue to trend as patient moves through the operative process and make adjustments as clinically appropriate. * Dexamethasone 4mg IV q8H continued; will maintain 10-1.5 Novolog parameters. 10/19/22 * Yesterday, BSG values were as follows: [id number]. * Mealtime blood glucoses have demonstrated improvement over previous days following tightening of carb ratio from 2 to 1.5 units per gram of carbohydrate consumed. * Although the patient may benefit from further tightening of these Novolog parameters, additional data would be beneficial to determine risk-benefit in doing so. * Dexamethasone 4mg IV Q8H continued. T2DM diet continued. * In observance of consistently high fasting BSG's, will increase daily Lantus dose by 15-20% by scaling tonight's dose. 10/18/22 * Patient BSG's were [phone]/283 mg/dL yesterday. * Dexamethasone 4mg IV Q8h continued. * Given persistent prandial hyperglycemia, the patient may benefit from tightening Novolog parameters. Currently on a 10-2 regimen. * This morning, the patient's fasting BSG was 163 mg/dL. Patient received 50 mg BID of Lantus yesterday. 10/17/22 * Patient's BSGs yesterday were [phone] mg/dL. Patient received 145 units of basal (70 units of basal and 75 units of bolus). * Patient given dexamethasone 10 mg IV x 1 yesterday evening and then started on dexamethasone 4 mg IV q8 today. * Patient is acutely sensitive to steroids. * Fasting this AM 227 mg/dL. * Will increase basal to 100 units/day. This appears to be effective when patient receiving steroids. Note, will need to be rapidly decreased when steroids halted. * Tighten Novolog to achieve more bolus coverage to decrease basal coverage. Overnight checks to see what more basal needs required. Initial Assessment * 52 YO female admitted with acute hip pain and hyperglycemia. Not in DKA/HHS (AG-8, bicarb-27). Pharmacy consulted to assist with glycemic management. * BSG on arrival-514mg/dL. Pt received 10units IV regular insulin bolus X 1 around noon. Repeat BSG 374mg/dL. Currently NPO. * Patient reports she did not take her Lantus this AM, and appears to be non- compliant. Will initiate NovoLog severe stress q4h through tomorrow AM, then ACHS. Lantus 60 units SQ X 1 now with HS scale. * May require insulin infusion if BSGs do not continue to trend down. PLAN FOR INPATIENT GLYCEMIC CONTROL: * Basal insulin * 40 units Qam * 20-30 units Qpm * Bolus insulin * NovoLog per scale ACHS or Q6hrs while NPO * Goal Range: Low 110 mg/dL - High 140 mg/dL * Correction Factor: 15 mg/dL/unit * Nutritional / Prandial insulin per carb ratio of 1 unit per 3 grams CHO consumed
[2022-10-21] MEDS ORDERED: LANTUS PER UNIT CHARGE SQ SCH ×2 (09:00→21:00)
[2022-10-21 09:07] LABS: BUN Creatinine Ratio 29.6 (10-20); Calcium 8.1 mg/dl (8.5-10.1); Creatinine Clr Calc Pharmacy 139.5 ml/min; Potassium 3.8 mmol/L (3.5-5.1)
[2022-10-21] MEDS: HYDROmorphone INJ 1 MG/ML SYRINGE IV PRN ×4 (09:18→23:15)
[2022-10-21] MEDS: INSULIN ASPART PER UNIT SC SCH ×4 (09:20→21:19)
--- NOTE | 2022-10-21 11:04 | Orthopedic Progress Note ---
Date of Service October 21, 2022 Assessment & Plan (1) Neurogenic claudication due to lumbar spinal stenosis: Plan: This time initiate physical therapy monitor JACQUE output. At this point should be a candidate for a [facility] or rehab in the next few days. Admission and Anticipated Discharge Date Admission Date: October 12, 2022 Subjective Patient's back pain is controlled leg symptoms markedly improved Physical Exam Physical Exam: On exam she is in bed. She has good strength testing. Appears comfortable. Results & Data ([facility]) Vital Signs (Past 12 Hours) Vital Signs Temp Pulse Resp BP BP Pulse Ox O2 Del Method 10/21/22 08:11 36.9 C 52 L 16 116/73 100 Room Air 10/21/22 02:08 36.4 C L 57 L 18 110/67 97 Room Air
[2022-10-21] MEDS ORDERED: Nursing to Pharmacy Communication SCH (15:45)
[2022-10-21] MEDS: traZODone HCL 100 MG TAB PO SCH (19:33)
[2022-10-21] MEDS: DULoxetine HCL 60 MG CAP PO SCH (19:34)
[2022-10-21] MEDS: DOCUSATE SODIUM/SENNA 50/8.6MG TAB PO SCH (19:35)
[2022-10-21] MEDS: MONTELUKAST SODIUM 10 MG TABLET PO SCH (19:36)
--- NOTE | 2022-10-21 20:19 | Hospitalist Progress Note ---
Date of Service October 21, 2022 Assessment & Plan (1) Acute hip pain: Plan: Spinal stenosis with left-sided nerve impingement MRI lumbar spine suggests spinal stenosis with changes to left sided nerve roots, Dr. Sharpe saw the patient for orthospine's recommendations- Neurogenic claudication due to lumbar spinal stenosis: Patient has severe spinal stenosis that is created with significant limitations with ambulation. We discussed possible surgical intervention. Will require at minimum a lumbar decompression and possible fusion L3-L4 L4-L5. L5-S1 may also need to be addressed. Risk benefits pros cons alternatives were in detail. At this time we will plan for surgery this week as she is medically cleared. - PT/OT to work with patient while admitted, suspect she may need placement if she is unable to ambulate safely at home and care for self. patient is medically risk optimized only challenge at this point some glucose variability is due to steroid use for pain control, laboratories reviewed 10/19 pt is stable and risk optimized surgery completed on 10/20/22 Pain isbetter controlled on 10/21 (2) Acute hyperglycemia: Plan: - Patient presented with a blood sugar of 514 despite reported compliance with her medications which include Lantus 80 units twice daily, NovoLog 12 units 3 times daily, and Trulicity. DKA/HHS ruled out , anion gap is 8. - A1c 10.7% on 08/13, indicates uncontrolled diabetes despite reported compliance with insulin and Trulicity. - General diet -consulted glycemic control. blood glucoses favorable even with po steroid Patient is on basal bolus insulin with very tight sliding scale - (3) Seizure: Plan: - Patient has history of seizure disorders, reported an episode at home despite compliance with her Keppra. - Loaded with a dose of IV Keppra in ED, did ncrease Keppra from 750 mg twice daily to 1000 mg BID as per Neurological recommendations . (4) Chronic obstructive pulmonary disease: Plan: - stable, continue home inhalers, Flonase, Singulair. (5) Liver cirrhosis: Plan: - Reported history of, and has followed with hepatology previously, however has not seen them for the past year. - LFTs within normal limits on admission. Plan - SCDs, Lovenox for VTE ppx. Will need to hold Lovenox preoperatively - Full code. Pending placement Admission and Anticipated Discharge Date Admission Date: October 12, 2022 Subjective 52 yo female reports pain is better controlled today. Review of Systems Review of Systems: All systems reviewed & are unremarkable except as noted in HPI & below Physical Exam Physical Exam: General: awake, alert, no apparent distress Head: Normocephalic, atraumatic ENT: PERRL, EOMI, no pharyngeal exudate, mucous membranes moist Chest: Clear to auscultation, on room air, no adventitious breath sounds Cardiac: Regular rate and rhythm, no murmur, no JVD, normal peripheral pulses, good capillary refill Abdominal: NABS x 4 quadrants, soft, nontender to palpation, no rebound, guarding or tenderness Extremities: Low back TTP along spine, right hip painful with flexion and extension; Strength intact bilaterally Psych: Normal mood and affect Neuro: AAO x 3, strength intact bilaterally and rated 5/5, no motor deficits, speech is clear, no peripheral sensory deficits Skin: no rash or erythema Results & Data Results & Data ([facility]) Vital Signs (Past 12 Hours) Vital Signs Temp Pulse Pulse Resp BP BP Pulse Ox 10/21/22 15:42 36.5 C 71 16 106/54 L 97 10/21/22 11:54 65 104/67 10/21/22 11:34 36.6 C 68 16 94/55 L 92/55 L 94 O2 Del Method 10/21/22 15:42 Room Air 10/21/22 11:54 10/21/22 11:34 Room Air PG Care Time/CCT Total # of Minutes Spent Total Time Spent with Patient: Total time spent is greater than 50% in coordination of care (as documented) at patient's floor/unit and/or counseling patient: Coding Level of Care Code 15088 SUB INP/OBS CARE 2/35MIN Diagnoses Acute hip pain M25.551 Laterality: right Acute hyperglycemia R73.9 Seizure R56.9 Chronic obstructive pulmonary disease J44.9 Liver cirrhosis K74.60 Hepatic cirrhosis type: unspecified hepatic cirrhosis (1) Acute hip pain Laterality: right Qualified Code(s): M25.551 - Pain in right hip (2) Liver cirrhosis Hepatic cirrhosis type: unspecified hepatic cirrhosis
[2022-10-22] MEDS: POLYETHYLENE (MIRALAX) 17 GM PACK PO SCH ×3 (05:02→18:14)
[2022-10-22] MEDS: HYDROmorphone INJ 1 MG/ML SYRINGE IV PRN (07:33)
[2022-10-22] MEDS ORDERED: LANTUS PER UNIT CHARGE SQ SCH ×2 (09:00→21:00)
[2022-10-22] MEDS: INSULIN ASPART PER UNIT SC SCH ×4 (09:07→22:02)
[2022-10-22] MEDS: FLUTICASONE/VILANTEROL 100/25MCG 14 PUFFS/INHALER INH SCH (09:08)
[2022-10-22] MEDS: PANTOprazole 40 MG TAB PO SCH (09:09)
[2022-10-22] MEDS: GABAPENTIN 800 MG TAB PO SCH ×3 (09:09→22:04)
[2022-10-22] MEDS: FAMOTIDINE 40 MG TABLET PO SCH ×2 (09:09→22:04)
[2022-10-22] MEDS: levETIRAcetam 500 MG TAB PO SCH ×2 (09:09→22:04)
[2022-10-22] MEDS: ASPIRIN 81 MG ECTAB PO SCH (09:09)
[2022-10-22] MEDS: oxyCODONE HCL IR 5 MG TAB (IMMEDIATE RELEASE) PO PRN ×2 (09:46→18:22)
--- NOTE | 2022-10-22 10:34 | Pharmacy Report ---
Pharmacy Glycemic Short Note 2 - Date of Service October 22, 2022 - Glycemic Short BSG Results (Last 24 hours): 10/21/22 10/21/22 10/21/22 11:52 16:56 21:08 POC Glucose 110 H 84 172 H 10/22/22 08:09 POC Glucose 122 H OUTPATIENT ANTIDIABETIC REGIMEN: * Lantus 85units SQ BID * Novolog 12 units TID * Trulicity 1.5mg SQ weekly * HbA1C: 10.7% (08/13/22) ASSESSMENT: 10/22/22: * Patient received total of 88 units of insulin yesterday, of which 60 units were basal insulin * Fasting BSG 122 mg/dL - reasonable to continue with same basal insulin for now * Continue same CF/CR - no steroids ordered 10/21/22: * Patient received total of 110 units of insulin yesterday, of which 70 units were basal insulin * Fasting BSG 123 mg/dL - patient had been on scheduled IV dexamethasone which was d/c last evening therefore anticipate insulin needs to decrease * No steroids ordered today therefore will loosen novolog parameters. Will continue with around 60-70 units of basal/day 10/20/22: * Diet changed to NPO status at midnight on 10/20/22 in anticipation of surgery today, scheduled at 1415. * Will reduce total daily dose of Lantus by ~25%; will continue to trend as patient moves through the operative process and make adjustments as clinically appropriate. * Dexamethasone 4mg IV q8H continued; will maintain 10-1.5 Novolog parameters. 10/19/22 * Yesterday, BSG values were as follows: 222/[id number]. * Mealtime blood glucoses have demonstrated improvement over previous days following tightening of carb ratio from 2 to 1.5 units per gram of carbohydrate consumed. * Although the patient may benefit from further tightening of these Novolog parameters, additional data would be beneficial to determine risk-benefit in doing so. * Dexamethasone 4mg IV Q8H continued. T2DM diet continued. * In observance of consistently high fasting BSG's, will increase daily Lantus dose by 15-20% by scaling tonight's dose. 10/18/22 * Patient BSG's were [phone]/283 mg/dL yesterday. * Dexamethasone 4mg IV Q8h continued. * Given persistent prandial hyperglycemia, the patient may benefit from tightening Novolog parameters. Currently on a 10-2 regimen. * This morning, the patient's fasting BSG was 163 mg/dL. Patient received 50 mg BID of Lantus yesterday. 10/17/22 * Patient's BSGs yesterday were [phone] mg/dL. Patient received 145 units of basal (70 units of basal and 75 units of bolus). * Patient given dexamethasone 10 mg IV x 1 yesterday evening and then started on dexamethasone 4 mg IV q8 today. * Patient is acutely sensitive to steroids. * Fasting this AM 227 mg/dL. * Will increase basal to 100 units/day. This appears to be effective when patient receiving steroids. Note, will need to be rapidly decreased when ster oids halted. * Tighten Novolog to achieve more bolus coverage to decrease basal coverage. Overnight checks to see what more basal needs required. Initial Assessment * 52 YO female admitted with acute hip pain and hyperglycemia. Not in DKA/HHS (AG-8, bicarb-27). Pharmacy consulted to assist with glycemic management. * BSG on arrival-514mg/dL. Pt received 10units IV regular insulin bolus X 1 around noon. Repeat BSG 374mg/dL. Currently NPO. * Patient reports she did not take her Lantus this AM, and appears to be non- compliant. Will initiate NovoLog severe stress q4h through tomorrow AM, then ACHS. Lantus 60 units SQ X 1 now with HS scale. * May require insulin infusion if BSGs do not continue to trend down. PLAN FOR INPATIENT GLYCEMIC CONTROL: * Basal insulin * 30 units bid * Bolus insulin * NovoLog per scale ACHS or Q6hrs while NPO * Goal Range: Low 110 mg/dL - High 140 mg/dL * Correction Factor: 15 mg/dL/unit * Nutritional / Prandial insulin per carb ratio of 1 unit per 5 grams CHO consumed
--- NOTE | 2022-10-22 13:09 | Orthopedic Progress Note ---
Date of Service October 22, 2022 Assessment & Plan (1) Neurogenic claudication due to lumbar spinal stenosis: Plan: At this time continue physical therapy monitor JACQUE output anticipate discharge to rehab Tuesday Admission and Anticipated Discharge Date Admission Date: October 12, 2022 Subjective Patient's back pain is controlled leg pain improved Physical Exam Physical Exam: On examination she is in bed. She is comfortable. Is good strength testing. Results & Data ([facility]) Vital Signs (Past 12 Hours) Vital Signs Temp Pulse Resp BP Pulse Ox O2 Del Method 10/22/22 07:15 36.3 C L 70 18 103/64 100 Room Air
[2022-10-22] MEDS: HYDROmorphone INJ 0.5 MG/0.5 ML SYR IV PRN ×2 (13:59→23:37)
[2022-10-22] MEDS ORDERED: ENOXAPARIN INJ 40 MG/0.4 ML SYR SQ ONE (14:00)
[2022-10-22] MEDS: DOCUSATE SODIUM/SENNA 50/8.6MG TAB PO SCH (22:03)
[2022-10-22] MEDS: DULoxetine HCL 60 MG CAP PO SCH (22:04)
[2022-10-22] MEDS: traZODone HCL 100 MG TAB PO SCH (22:04)
[2022-10-22] MEDS: MONTELUKAST SODIUM 10 MG TABLET PO SCH (22:05)
--- NOTE | 2022-10-22 22:12 | Hospitalist Progress Note ---
Date of Service October 22, 2022 Assessment & Plan (1) Acute hip pain: Plan: Spinal stenosis with left-sided nerve impingement MRI lumbar spine suggests spinal stenosis with changes to left sided nerve roots, Dr. Sharpe saw the patient for orthospine's recommendations- Neurogenic claudication due to lumbar spinal stenosis: Patient has severe spinal stenosis that is created with significant limitations with ambulation. We discussed possible surgical intervention. Will require at minimum a lumbar decompression and possible fusion L3-L4 L4-L5. L5-S1 may also need to be addressed. Risk benefits pros cons alternatives were in detail. At this time we will plan for surgery this week as she is medically cleared. - PT/OT to work with patient while admitted, suspect she may need placement if she is unable to ambulate safely at home and care for self. patient is medically risk optimized only challenge at this point some glucose variability is due to steroid use for pain control, laboratories reviewed 10/19 pt is stable and risk optimized surgery completed on 10/20/22 Pain is better controlled on 10/22 Plan to discharge on 10/23. (2) Acute hyperglycemia: Plan: - Patient presented with a blood sugar of 514 despite reported compliance with her medications which include Lantus 80 units twice daily, NovoLog 12 units 3 times daily, and Trulicity. DKA/HHS ruled out , anion gap is 8. - A1c 10.7% on 08/13, indicates uncontrolled diabetes despite reported compliance with insulin and Trulicity. - General diet -consulted glycemic control. blood glucoses favorable even with po steroid Patient is on basal bolus insulin with very tight sliding scale - (3) Seizure: Plan: - Patient has history of seizure disorders, reported an episode at home despite compliance with her Keppra. - Loaded with a dose of IV Keppra in ED, did ncrease Keppra from 750 mg twice daily to 1000 mg BID as per Neurological recommendations . (4) Chronic obstructive pulmonary disease: Plan: - stable, continue home inhalers, Flonase, Singulair. (5) Liver cirrhosis: Plan: - Reported history of, and has followed with hepatology previously, however has not seen them for the past year. - LFTs within normal limits on admission. Plan - SCDs, Lovenox for VTE ppx. Will need to hold Lovenox preoperatively - Full code. Pending placement Admission and Anticipated Discharge Date Admission Date: October 12, 2022 Subjective Patient continues to be complaining of back pain. But she reports this has improved. Review of Systems Review of Systems: All systems reviewed & are unremarkable except as noted in HPI & below Physical Exam Physical Exam: General: awake, alert, no apparent distress Head: Normocephalic, atraumatic ENT: PERRL, EOMI, no pharyngeal exudate, mucous membranes moist Chest: Clear to auscultation, on room air, no adventitious breath sounds Cardiac: Regular rate and rhythm, no murmur, no JVD, normal peripheral pulses, good capillary refill Abdominal: NABS x 4 quadrants, soft, nontender to palpation, no rebound, guarding or tenderness Extremities: Low back TTP along spine, right hip painful with flexion and extension; Strength intact bilaterally Psych: Normal mood and affect Neuro: AAO x 3, strength intact bilaterally and rated 5/5, no motor deficits, speech is clear, no peripheral sensory deficits Skin: no rash or erythema Results & Data Results & Data ([facility]) Vital Signs (Past 12 Hours) Vital Signs Temp Pulse Resp BP Pulse Ox O2 Del Method 10/22/22 20:56 36.8 C 86 16 117/68 100 Room Air 10/22/22 16:22 36.9 C 56 L 18 97 Room Air PG Care Time/CCT Total # of Minutes Spent Total Time Spent with Patient: Total time spent is greater than 50% in coordination of care (as documented) at patient's floor/unit and/or counseling patient: Coding Level of Care Code 30719 SUB INP/OBS CARE 2/35MIN Diagnoses Acute hip pain M25.551 Laterality: right Acute hyperglycemia R73.9 Seizure R56.9 Chronic obstructive pulmonary disease J44.9 Liver cirrhosis K74.60 Hepatic cirrhosis type: unspecified hepatic cirrhosis (1) Acute hip pain Laterality: right Qualified Code(s): M25.551 - Pain in right hip (2) Liver cirrhosis Hepatic cirrhosis type: unspecified hepatic cirrhosis
[2022-10-23] MEDS: POLYETHYLENE (MIRALAX) 17 GM PACK PO SCH ×2 (00:31→06:06)
[2022-10-23] MEDS: oxyCODONE HCL IR 5 MG TAB (IMMEDIATE RELEASE) PO PRN ×2 (04:13→09:40)
[2022-10-23] MEDS: HYDROmorphone INJ 0.5 MG/0.5 ML SYR IV PRN ×2 (06:06→10:27)
[2022-10-23 06:39] LABS: Hematocrit (blood only) 28.8 % (34.1-44.9); Hemoglobin 9.9 g/dl (12.0-16.0); Mean Corpuscular Hgb Conc 34.4 g/dL (32.0-36.0); Mean Corpuscular Volume 93.2 fL (80.0-100.0); Mean Platelet Volume 11.8 fL (9.4-12.3); Platelet Count 101 K/uL (130-400); RDW Coefficient of Variation 14.3 % (11.5-14.5); RDW Standard Deviation 47.9 fL (36.4-46.3); Red Blood Count 3.09 M/uL (3.93-5.22); White Blood Count 6.73 K/ul (4.8-10.8)
[2022-10-23 07:14] LABS: BUN Creatinine Ratio 19.7 (10-20); Calcium 7.8 mg/dl (8.5-10.1); Creatinine Clr Calc Pharmacy 123.5 ml/min; Est GFR (African American) 119.1 ml/min; Est GFR (Non-African American) 102.8 ml/min; Potassium 3.5 mmol/L (3.5-5.1)
[2022-10-23] MEDS ORDERED: ENOXAPARIN INJ 40 MG/0.4 ML SYR SQ SCH (09:00)
[2022-10-23] MEDS ORDERED: LANTUS PER UNIT CHARGE SQ SCH (09:00)
[2022-10-23] MEDS: levETIRAcetam 500 MG TAB PO SCH (09:31)
[2022-10-23] MEDS: ASPIRIN 81 MG ECTAB PO SCH (09:31)
[2022-10-23] MEDS: FLUTICASONE/VILANTEROL 100/25MCG 14 PUFFS/INHALER INH SCH (09:31)
[2022-10-23] MEDS: GABAPENTIN 800 MG TAB PO SCH (09:31)
[2022-10-23] MEDS: PANTOprazole 40 MG TAB PO SCH (09:31)
[2022-10-23] MEDS: FAMOTIDINE 40 MG TABLET PO SCH (09:31)
[2022-10-23] MEDS: INSULIN ASPART PER UNIT SC SCH (09:39)
--- NOTE | 2022-10-23 10:13 | Discharge Summary ---
Date of Service October 23, 2022 Admission HPI Per Admitting Provider Elza Vick is a 52-year-old female with a past medical history significant for seizures, syncopal episodes, chronic back pain, insulin-dependent diabetes, liver cirrhosis who is presenting to the ED today for low back pain. Patient was seen in our ED 2 days ago for right-sided hip pain that started 9 days ago. Seemingly came out of nowhere, without any recent falls or trauma. Work-up was negative at the time for any acute process and she was discharged home in stable condition, however notes she has fallen 5 times since then, had a seizure at home, and has been lying on floor since 9 PM last night. Complains of significant pain when moving her right leg and a mild headache, otherwise denies pain elsewhere. No bowel or bladder incontinence or retention, no saddle anesthesia. Denies fevers, chest pain, palpitation, shortness of breath, weakness, or numbness anywhere other than her right leg which has been ongoing issue for the past 20 years. On presentation to the ED, her vital signs are within normal limits and stable. Presenting glucose on BMP is 514, anion gap 8. Labs otherwise unremarkable, no electrolyte abnormalities, renal function and hepatic function at baseline. Right hip/pelvic XR does not identify any acute bony abnormality, lumbar spine CT shows degenerative disc disease seen previously, otherwise no acute bony abnormality. Head CT unremarkable. Principal Diagnosis severe spinal stenosis Discharge Exam General: awake, alert, no apparent distress Head: Normocephalic, atraumatic ENT: PERRL, EOMI, no pharyngeal exudate, mucous membranes moist Chest: Clear to auscultation, on room air, no adventitious breath sounds Cardiac: Regular rate and rhythm, no murmur, no JVD, normal peripheral pulses, good capillary refill Abdominal: NABS x 4 quadrants, soft, nontender to palpation, no rebound, guarding or tenderness Extremities: Low back TTP along spine, right hip painful with flexion and extension; Strength intact bilaterally Psych: Normal mood and affect Neuro: AAO x 3, strength intact bilaterally and rated 5/5, no motor deficits, speech is clear, no peripheral sensory deficits Skin: no rash or erythema Discharge Data Allergies Allergy/AdvReac Type Severity Reaction Status Date / Time acetaminophen AdvReac Severe LIVER Verified 10/10/22 20:32 COMPLICATIONS cephalexin AdvReac Severe Vomiting Verified 10/10/22 20:32 levofloxacin [From Levaquin] AdvReac Intermediate Vomiting Verified 10/10/22 20:32 Consultations 10/12/22 11:58 ED Decision to Admit Stat 10/12/22 15:07 Consult Neurology Routine 10/16/22 12:14 Consult Orthopedic Surgery Routine Procedures Performed Operation Date: 10/20/22 14:15 Actual Procedures p L3-L5 Decompression and Fusion(Not Applicable) - Kyaw Sharpe, Ordered Studies 10/12/22 10:34 CT lumbar spine wo con Stat 10/12/22 12:00 CT head/brain wo con Stat 10/15/22 15:01 MRI Lumbar Spine [MR lumbar spine wo con] Routine 10/20/22 14:15 FL lumbar spine 2-3V Routine Hospital Course (1) Acute hip pain: Spinal stenosis with left-sided nerve impingement MRI lumbar spine suggests spinal stenosis with changes to left sided nerve roots, Dr. Sharpe saw the patient for orthospine's recommendations- Neurogenic claudication due to lumbar spinal stenosis: Patient has severe spinal stenosis that is created with significant limitations with ambulation. We discussed possible surgical intervention. Will require at minimum a lumbar decompression and possible fusion L3-L4 L4-L5. L5-S1 may also need to be addressed. Risk benefits pros cons alternatives were in detail. At this time we will plan for surgery this week as she is medically cleared. - PT/OT to work with patient while admitted, suspect she may need placement if she is unable to ambulate safely at home and care for self. patient is medically risk optimized only challenge at this point some glucose variability is due to steroid use for pain control, laboratories reviewed 10/19 pt is stable and risk optimized surgery completed on 10/20/22 Pain is better controlled on 10/22 Plan to discharge on 10/23. (2) Acute hyperglycemia: - Patient presented with a blood sugar of 514 despite reported compliance with her medications which include Lantus 80 units twice daily, NovoLog 12 units 3 times daily, and Trulicity. DKA/HHS ruled out , anion gap is 8. - A1c 10.7% on 08/13, indicates uncontrolled diabetes despite reported compliance with insulin and Trulicity. - General diet -consulted glycemic control. blood glucoses favorable even with po steroid Patient is on basal bolus insulin with very tight sliding scale Patient will benefit from sliding scale/carb coverage at discharge. For guidance, patient has required about 8 units of short acting insulin TID. Discharge medications noted below. - (3) Seizure: - Patient has history of seizure disorders, reported an episode at home despite compliance with her Keppra. - Loaded with a dose of IV Keppra in ED, did ncrease Keppra from 750 mg twice daily to 1000 mg BID as per Neurological recommendations . (4) Chronic obstructive pulmonary disease: - stable, continue home inhalers, Flonase, Singulair. (5) Liver cirrhosis: - Reported history of, and has followed with hepatology previously, however has not seen them for the past year. - LFTs within normal limits on admission. Plan - SCDs, Lovenox for VTE ppx. Will need to hold Lovenox preoperatively - Full code. Pending placement Total Time Total Time Spent Total Time Spent (In Minutes): 32 Discharge Plan Discharge Items Patient Disposition: Transfer Inpatient Rehab Fac Reason For Visit: REEVAL. HIP PAIN, Discharge Diagnosis: Hip pain Activity: Resume your previous activity Non-emergency contact: Primary Care Provider Call non-emergency contact if: you have any medication questions Follow-up/Referrals: Aneudy Pérez MD [Primary Care Provider] - Diet: Carb Consistent or DM2 Addtl Attending Provider Instructions: ACTIVITY RECOMMENDATIONS: SELF CARE INSTRUCTIONS AFTER THORACIC/LUMBAR FUSIONS 1. You may walk to your tolerance. It is good exercise for your legs and back. Expect some back and intermittent leg aches and pains. 2. You may perform "counter-top" level activities (make a sandwich, dana with a project, etc.). 3. No bending or lifting of more than 10 pounds or back twisting of any nature (roll like a log when turning in bed). 4. You may ride in a car for 20-30 minutes at a time. No driving until after your first visit with your doctor. 5. Frequent changes of position and restricting sitting to 30 minutes at a time will help limit the amount of back spasms and stiffness you may experience. 6. You may discontinue the use of ambulatory aids (cane, crutches, etc.) once your strength and confidence allow. 7. You may training and development head the shower and let water strike your incision when you arrive home at least once daily. Do not take a tub bath, sit in a hot tub or go into a swimming pool until after your first recheck in the office. SPECIAL CARE INSTRUCTIONS: VERY IMPORTANT TO READ AND REVIEW A. Your surgical incision has been closed with a cosmetic suture under the skin that will dissolve in about 6 weeks. In 14 days, you can use a pair of clean scissors and cut the suture that is left outside of the skin at the ends of your incision. 1. The small skin tapes can be removed 7 days after surgery if they have not fallen off by that point. 2. You may keep the wound open to air as much as possible to promote healing after post-op day number 5 unless told otherwise by your doctor. 3. If you think the wound looks like it is becoming infected (redness or worsening drainage) and/or you are experiencing fever, chill or worsening back pain and muscle spasms, contact the office so that we may evaluate you as soon as possible. B. Complications are uncommon, but please contact us if you have any signs or symptoms of: 1. wound infection (fever higher than 102.5 degrees F, redness, separation of wound, drainage, or increasing pain from the incision) 2. blood clots in legs (pain, swelling, redness and warmth in legs) 3. urinary tract infection (fever higher than 102.5 degrees F, burning upon urination or increased frequency of urination) 4. nerve problems (inability to walk on your toes or heels, numbness, loss of bowel or bladder control) 5. any other symptoms that concern you C. Please call the office at if you have any concerns or questions about your operation or recovery. D. No smoking! Smoking drastically decreases the chance of a solid fusion. E. Do not take any anti-inflammatory medications (Indocin, Advil, Motrin, Aspirin, Naprosyn, etc.) as these may inhibit the chance of a solid fusion. Tylenol is okay to take for pain. MANAGING PAIN AFTER SPINAL SURGERY 1. Narcotic medication is intended for short-term use and will be provided for surgical pain. Surgical pain usually lasts for a period of 4-6 weeks. Narcotic medication includes Percocet, Vicodin, Darvocet, Tylenol #3 or Lortab. 2. Longer-term pain is more appropriately treated with non-narcotic medication such as Tylenol ES. 3. Muscle spasm is not appropriately treated with narcotics. Muscle relaxers such as Soma, Flexeril or Skelaxin can be used along with Tylenol ES. 4. Remember that we all live with some "aches and pains". This is not unusual or uncommon after an injury or as we get older. a. Back pain is expected and may include muscle spasms for 4 to 6 weeks after surgery. The pain should gradually improve. If the pain worsens for no apparent reason, please contact the office. b. Intermittent leg pain may also be experienced and should not be concerned about unless it worsens for no apparent reason. If so, please contact the office. 5. We will provide appropriate medication within the normal guidelines of their prescribed use. We will also be very cautious and aware of potential abuse and extended duration of patients' medication needs. a. Pain medications are for your comfort and to assist with sleep and rest so that the tissue can heal. They are not provided in order to return to normal activity and should not be used through the day. To do so or worsening pain at night can result from ongoing tissue damage and development of tolerance to the prescribed medicine. 6. Please allow 2-3 days to process refills. Prescriptions will not be mailed but must be picked up at the office. FOLLOW UP VISIT: Keep your scheduled follow-up appointment. Any questions, please call the office at . Pending Studies at Discharge: No Stand-Alone Forms: My [facility] Skilled Items Patient informed of condition?: Yes DNR: No Discharge Level of Care: Acute rehab Communicable Disease: No Discharge Prognosis: Stable Lines: None Urinary Catheter: No Medications and DC Order Prescriptions: New levetiracetam [Keppra] 500 mg Tablet 1,000 mg PO BID Qty: 0 0RF oxycodone 5 mg Tablet 5 - 10 mg PO Q4H PRN (Reason: pain) Qty: 0 0RF Rx Instructions: severe pain 10 mg moderate pain 5 mg sennosides-docusate sodium [Senokot-S] 8.6-50 mg Tablet 2 tab PO HS Qty: 0 0RF Continued cyclobenzaprine 10 mg Tablet 10 mg PO BID PRN (Reason: Muscle Spasm) Qty: 0 albuterol sulfate [Ventolin HFA] 90 mcg/actuation Hfa Aerosol Inhaler 2 puff INHALATION Q4H PRN (Reason: Shortness Of Breath Or Wheezing) Qty: 0 Trulicity 4.5 mg/0.5 mL pen injector 4.5 mg SUBCUT WK Qty: 2 1RF Rx Instructions: TUESDAYS-- montelukast [Singulair] 10 mg tablet 10 mg PO HS fluticasone propion-salmeterol [AirDuo RespiClick] 232-14 mcg/actuation aerosol powdr breath activated 2 inh inhalation BID PRN (Reason: Shortness Of Breath) ibuprofen 800 mg tablet 800 mg PO TID PRN (Reason: Pain) promethazine 25 mg tablet 25 mg PO Q6H PRN (Reason: Nausea) aspirin 81 mg Tablet,Delayed Release (Dr/Ec) 81 mg PO QAM cyclosporine [Restasis] 0.05 % Dropperette 2 drp OPHTHALMIC (EYE) Q12H duloxetine 60 mg capsule,delayed release(DR/EC) 60 mg PO HS buspirone 5 mg tablet 5 mg PO QID Trulicity 1.5 mg/0.5 mL pen injector 1.5 mg SUBCUT UD nystatin [Nyamyc] 100,000 unit/gram powder 1 applic TOPICAL UD diclofenac sodium 1 % Gel 4 g TOPICAL QID PRN (Reason: Pain) albuterol sulfate 2.5 mg /3 mL (0.083 %) solution for nebulization 2.5 mg inhalation Q6 PRN (Reason: Wheezing) famotidine 40 mg tablet 40 mg PO BID pantoprazole 20 mg tablet,delayed release (DR/EC) 20 mg PO QAM lidocaine 5 % adhesive patch,medicated 1 patch transdermal DAILY PRN (Reason: Pain) fluticasone propionate [Flonase Allergy Relief] 50 mcg/actuation spray,suspension 1 spray INTRANASAL DAILY PRN (Reason: Congestion) trazodone 100 mg tablet 100 mg PO HS polyethylene glycol 3350 [Miralax] 17 gram/dose Powder 17 g PO BID gabapentin 800 mg tablet 800 mg PO TID ondansetron 4 mg tablet,disintegrating 4 mg PO Q6H PRN (Reason: nausea and vomiting) Qty: 12 0RF Changed insulin aspart U-100 [Novolog FlexPen U-100 Insulin] 100 unit/mL (3 mL) insulin pen 8 unit SC TID Qty: 15 0RF Rx Instructions: plus sliding scale insulin glargine [Lantus Solostar U-100 Insulin] 100 unit/mL (3 mL) insulin pen 35 unit subcut BID Qty: 1 0RF Discontinued oxycodone 5 mg Tablet 5 mg PO BID PRN (Reason: Pain) etodolac 200 mg capsule 200 mg PO Q12H PRN (Reason: pain) Qty: 14 0RF levetiracetam [Keppra] 750 mg tablet 750 mg PO BID Qty: 60 0RF Discharge Orders: Discharge Order (Routine); Ordered 10/23/22 Ordered By: Jose Peters Admission Data Admit Date/Time: 10/12/22 12:28 Attending Provider: Jose Peters Admit Provider: Terra Gong Primary Care Provider: Aneudy Pérez Other Providers: [facility] ; [place] ; Jose Peters ; Brenton Middleton ; Kyaw Sharpe Other Interventions: Discharge Summary Assessment (RN) Last Done: 10/23/22 11:08 Coding Level of Care Code HOSP INP/OBS DISCH >30 MIN Diagnoses Acute hip pain M25.551 Laterality: right Acute hyperglycemia R73.9 Seizure R56.9 Chronic obstructive pulmonary disease J44.9 Liver cirrhosis K74.60 Hepatic cirrhosis type: unspecified hepatic cirrhosis
== END 2022-10-23 11:32 | DRG 455 ==
LOC: ED 09:57 → EDINP 12:28 → SUATTDRO 12:28 → 3N 15:04

== ENCOUNTER 2022-11-02 16:43 | Observation (INO) ==
[2022-11-02] MEDS ORDERED: MoRPHine SULFATE 10 MG/ML CARP/VIAL IV STA (17:56)
[2022-11-02] MEDS ORDERED: MoRPHine SULFATE 4 MG/ML 1 ML CARP\\VIAL IV PRN (17:56)
[2022-11-02] MEDS ORDERED: ONDANSETRON INJ 2 MG/ML 2 ML VIAL IV STA ×2 (17:56→21:20)
[2022-11-02] MEDS ORDERED: SODIUM CHLORIDE 0.9% 1000ML 500 ML IV ONE (17:58)
--- NOTE | 2022-11-02 18:07 | Emergency Department Note ---
Impression & Plan Weakness, Lower back pain, Fall, History of lumbar surgery ED Provider Note NAME: MARCIO FERNANDEZ AGE: 52 SEX: F : 1970 ARRIVES VIA: Ambulance INFORMANT: [Patient][ems] ED PROVIDER(S): [Kumar Coronado MD] CHIEF COMPLAINT: Back pain, fall HISTORY OF PRESENT ILLNESS: The patient is a 52-year-old female who was discharged from our hospital 10 days ago after lumbar surgery. The patient just left [facility] today. 4 hours after being home, she had a controlled fall. She had a second controlled fall and was brought to the hospital for evaluation. Since the controlled falls, she has had increasing pain in the lower back. Mostly on the right. Patient states that her legs felt weak today, she thinks this is why she fell. There has been no fever, no cough or congestion or chest pain. She has not had urinary complaints. The patient states that she has not taken any pain medication today since leaving rehab. She describes her pain as severe right now. PMHx/PSHx: See Below SOCIAL HISTORY: See Below. PHYSICAL EXAM: GENERAL: Patient is in moderate distress from pain, tearful. HEENT: No acute trauma, normocephalic atraumatic, mucous membranes moist, no nasal congestion. NECK: No stridor, no adenopathy, no meningismus, trachea is midline. LUNGS: Clear to auscultation bilaterally, no wheeze, no rhonchi, breath sounds equal. HEART: Subtle systolic murmur, regular rate and rhythm. ABDOMEN: Soft, nontender, bowel sounds positive, no peritonitis. Obese. EXTREMITIES: No cyanosis or edema, full range of motion of all the joints without pain or difficulty, no signs for acute trauma. NEUROLOGIC: Oriented x 3, moves all extremities equally. Seems to have excellent plantar flexion of both feet. I cannot elicit any reflexes in the patella or Achilles. No lower extremity spasms noted. SKIN: No rash, no jaundice, no diaphoresis. DIFFERENTIAL DIAGNOSIS: Lumbar fracture, contusion or strain, hardware malalignment, hematoma, infection, dehydration, electrolyte imbalance, UTI, debilitation, among others. EMERGENCY DEPARTMENT COURSE/PROCEDURES: Prior/Outside records reviewed: EMS records, last discharge summary MEDICAL DECISION MAKING: There is no leukocytosis. A mild anemia was seen. There was a normal platelet count. No renal failure or significant electrolyte abnormality. No concerning liver enzyme elevation. COVID test returned negative. Lumbar spine CT shows changes from the recent surgery, no acute fracture or acute surgical finding noted. On exam, the surgical wound over the lumbar area appears to be healing well. Patient could move lower extremities without difficulty. Her strength with plantarflexion appeared intact bilaterally. No hyperreflexive findings or muscle spasm seen in the lower extremities. The patient received IV morphine for pain, IV Zofran for nausea. She was given 500 cc of IV saline for hydration. I did speak with Dr. Sharpe of spinal surgery. The patient is not in need of any emergent surgical intervention. She can be admitted for pain control with a consult through his service tomorrow. The patient admits that she stopped taking her pain medications when she returned home. She thinks she got behind and this led to her problem today. She thinks she may have left rehab too early. The patient is feeling improved since receiving pain medication here in our ED, she is much more comfortable. DISPOSITION: The patient's presentation and findings warrant a hospital stay. Past Med/Surg History Medical History Abdominal pain Acute hyperglycemia Anxiety Brain cyst Chest pain Chronic low back pain with left-sided sciatica Chronic obstructive pulmonary disease Dental abscess Depression Elevated lactic acid level Emphysema of lung Encounter for pre-operative examination Hx of blood clots Hyperglycemia Hyperglycemia Hyperglycemia due to type 2 diabetes mellitus Hypertension Hypokalemia Hypomagnesemia Hyponatremia Insulin dependent diabetes mellitus Lightheadedness Medication reaction Obesity Periapical abscess with facial involvement Pulmonary embolism Reports was anticoagulation x 60 days, not on chronic anticoagulation Syncope Thrombocytopenia Tinea corporis Tinea cruris Uncontrolled type 2 diabetes mellitus Surgical History History of laparoscopic cholecystectomy Hx of oral surgery (02/15/20) Acute right submandibular, submental space infection with floor of mouth infection caused by infected lower teeth. Dr. Rios 02/15/20 S/P dilation and curettage S/P laparoscopic hernia repair S/P laparoscopic procedure ovarian cyst surgery Family History Mother , 73 Heart disease Cancer small cell ca lung caused at 73 Father Skin cancer Brother No problems noted. Sister No problems noted. Grandmother (Maternal) , 48 Heart disease T2DM (type 2 diabetes mellitus) Grandmother (Paternal) , 83 Heart disease Kidney disease Uncle T2DM (type 2 diabetes mellitus) Other Diabetes Obesity Denies family history of Ovarian cancer Breast cancer Colorectal cancer Uterine cancer Social History Smoking Status: Former smoker Tobacco Type: Cigarettes Cigarettes Per Day: 5; Second Hand Exposure: Yes; Hx Alcohol Use: No Hx Substance Use: No Preferred Language: Belarusian Communication Ability: Effective Visual Impairment: No Limitations Hearing Ability: Normal Asbestos Coverer Required: No Beliefs That Will Affect Care: Sabianist Sabianist Beliefs: Latter Day marital status: Current Living Situation: Family Current Living Situation Comment: Lives with son (15yo) current occupational status: unemployed 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 How many Children do You have: 1 Feels Safe at Home: Yes Assistive Devices: Walker Allergies Allergies Allergy/AdvReac Type Severity Reaction Status Date / Time acetaminophen AdvReac Severe LIVER Verified 11/02/22 21:13 COMPLICATIONS cephalexin AdvReac Severe Vomiting Verified 11/02/22 21:13 levofloxacin [From Levaquin] AdvReac Intermediate Vomiting Verified 11/02/22 21:13 Home Meds Home Medications Medication Instructions Recorded Confirmed cyclobenzaprine 10 mg tablet 10 mg PO BID PRN Muscle Spasm ##0 11/18/17 11/02/22 albuterol sulfate 90 mcg/actuation 2 puff inhalation Q4H PRN 02/10/18 11/02/22 aerosol inhaler (Ventolin HFA) Shortness Of Breath Or Wheezing ##0 ibuprofen 800 mg tablet 800 mg PO TID PRN Pain 10/24/19 11/02/22 promethazine 25 mg tablet 25 mg PO Q6H PRN Nausea 10/24/19 11/02/22 fluticasone 232 mcg-salmeterol 14 2 inh inhalation BID PRN Shortness 08/21/20 11/02/22 mcg/actuation breath activated Of Breath powdr (AirDuo RespiClick) montelukast 10 mg tablet 10 mg PO HS 09/01/20 11/02/22 (Singulair) aspirin 81 mg tablet,delayed 81 mg PO QAM 10/28/20 11/02/22 release cyclosporine 0.05 % eye drops in a 2 drp ophthalmic (eye) Q12H /06/3011/02/22 dropperette (Restasis) diclofenac sodium 1 % topical gel 4 g topical QID PRN Pain 07/20/21 11/02/22 albuterol sulfate 2.5 mg/3 mL 2.5 mg inhalation Q6 PRN Wheezing 01/19/22 11/02/22 (0.083 %) solution for nebulization famotidine 40 mg tablet 40 mg PO BID 01/19/22 11/02/22 fluticasone propionate 50 1 spray intranasal DAILY PRN 01/19/22 11/02/22 mcg/actuation nasal Congestion spray,suspension (Flonase Allergy Relief) lidocaine 5 % topical patch 1 patch transdermal DAILY PRN Pain 01/19/22 11/02/22 pantoprazole 20 mg tablet,delayed 20 mg PO QAM 01/19/22 11/02/22 release polyethylene glycol 3350 17 17 g PO BID 01/29/22 11/02/22 gram/dose oral powder (Miralax) trazodone 100 mg tablet 100 mg PO HS 01/29/22 11/02/22 duloxetine 60 mg capsule,delayed 60 mg PO HS 03/12/22 11/02/22 release gabapentin 800 mg tablet 800 mg PO TID 04/05/22 11/02/22 buspirone 5 mg tablet 5 mg PO QID 07/30/22 11/02/22 dulaglutide 1.5 mg/0.5 mL 1.5 mg subcut UD 10/12/22 11/02/22 subcutaneous pen injector (TrulicArvirago) nystatin 100,000 unit/gram topical 1 applic topical UD 10/12/22 11/02/22 powder (Nyamyc) levetiracetam 1,000 mg tablet 1,000 mg PO BID 11/02/22 11/02/22 Previous Rx's Medication Instructions Recorded ondansetron 4 mg disintegrating 4 mg PO Q6H PRN nausea and 08/11/22 tablet vomiting #12 tabs dulaglutide 4.5 mg/0.5 mL 4.5 mg (0.5 mL) subcut WK #2 mL 10/06/22 subcutaneous pen injector ([employer]) insulin aspart U-100 100 unit/mL 8 unit (0.08 mL) SC TID #15 mL 10/23/22 (3 mL) subcutaneous pen (Novolog FlexPen U-100 Insulin aspart) insulin glargine 100 unit/mL (3 35 unit (0.35 mL) subcut BID #1 mL 10/23/22 mL) subcutaneous pen (Lantus Solostar U-100 Insulin) oxycodone 5 mg tablet 5 - 10 mg PO Q4H PRN pain #0 tabs 10/23/22 sennosides 8.6 mg-docusate sodium 2 tab PO HS #0 tabs 10/23/22 50 mg tablet (Senokot-S) Results & Data (ED) Vital Signs Vital Signs - 24 hr 11/02/22 17:04 11/02/22 19:52 11/02/22 20:20 Temperature 36.7 C Temperature Source Oral Pulse Rate 80 Pulse Rate [Right Finger] 84 80 Pulse Rhythm Regular Pulse Strength Normal Respiratory Rate 16 21 20 Respiratory Effort / Characteristics Non-Labored Spontaneous Non-Labored Spontaneous Non-Labored Spontaneous Respiratory Depth Normal Normal Normal Respiratory Pattern Regular Blood Pressure 151/64 H Blood Pressure [Left Arm] 128/61 108/85 Blood Pressure Mean 93 Blood Pressure Mean [Left Arm] 83 92 Blood Pressure Position Lying Pulse Oximetry 100 97 100 Oxygen Delivery Method Room Air Room Air Room Air Sepsis Recent Fever Within 48 Hours No Sepsis New/Unexplained Change in Mental Status No Sepsis Action Taken by Nursing No Action Required Home Medications Current Medication List: was personally reviewed by me Laboratory Data Attestation: I reviewed the patient's lab results. 11/02/22 18:10 11/02/22 18:10 Lab Results 11/02/22 11/02/22 11/02/22 Range/Units 18:10 18:10 19:36 WBC 5.37 (4.8-10.8) K/ul RBC 3.53 L (3.93-5.22) M/uL Hgb 11.1 L (12.0-16.0) g/dl Hct 33.2 L (34.1-44.9) % MCV 94.1 (80.0-100.0) fL MCH 31.4 (25.0-34.0) pg MCHC 33.4 (32.0-36.0) g/dL RDW Std Deviation 48.0 H (36.4-46.3) fL RDW Coeff of Kelli 14.2 (11.5-14.5) % Plt Count 214 (130-400) K/uL MPV 9.9 (9.4-12.3) fL Immature Gran % (Auto) 0.4 % Neut % (Auto) 71.3 % Lymph % (Auto) 18.1 % [place] % (Auto) 7.8 % Eos % (Auto) 2.0 % Baso % (Auto) 0.4 % Neut # (Auto) 3.83 (1.4-6.5) K/uL Lymph # (Auto) 0.97 L (1.2-3.4) K/uL [place] # (Auto) 0.42 (0.24-0.82) K/uL Eos # (Auto) 0.11 (0-0.50) K/uL Baso # (Auto) 0.02 (0-0.2) K/uL Immature Gran # (Auto) 0.02 (0.00-0.02) K/uL Sodium 138 (136-145) mmol/L Potassium 3.5 (3.5-5.1) mmol/L Chloride 105 (98-107) mmol/L Carbon Dioxide 28 (21-32) mmol/L Anion Gap 5 (3-11) BUN 10 (6-23) mg/dl Creatinine 0.54 L (0.6-1.2) mg/dl Est Cr Clr Drug Dosing 147.5 ml/min Est GFR ( Amer) 124.0 ml/min Est GFR (Non-Af Amer) 107.0 ml/min BUN/Creatinine Ratio 18.5 (10-20) Glucose 278 H (70-99(Fasting)) mg/dl Calcium 9.3 (8.5-10.1) mg/dl Total Bilirubin 0.4 (0.2-1.0) mg/dl AST 15 (13-39) U/L ALT 17 (7-52) U/L Alkaline Phosphatase 184 H (34-104) U/L Total Protein 6.8 (6.0-8.3) gm/dl Albumin 3.5 (3.4-5.0) gm/dl Globulin 3.3 (2.5-4.0) gm/dl Albumin/Globulin Ratio 1.1 (0.9-2) SARS-CoV-2, RNA, NAAT NEGATIVE (NEGATIVE) Administered Medications Morphine Sulfate (Morphine Sulfate 4 Mg/Ml 1 Ml Carp\Vial) 4 mg IV Q30M PRN PRN Reason: Pain Stop: 11/16/22 17:55 Last Admin: 11/02/22 20:18 Dose: 4 mg Documented By: [facility] Discontinued Medications Sodium Chloride (Nss 1000ml) 500 mls @ 999 mls/hr IV .Q31M ONE Stop: 11/02/22 18:28 Last Infusion: 11/02/22 18:54 Dose: 0 mls/hr Documented By: Admin: 11/02/22 18:18 Dose: 999 mls/hr Documented By: ANAYELI Morphine Sulfate (Morphine Sulfate 10 Mg/Ml Carp/Vial) 6 mg IV NOW STA Stop: 11/02/22 17:57 Last Admin: 11/02/22 18:20 Dose: 6 mg Documented By: ABHIJEET Ondansetron HCl (Ondansetron Inj 2 Mg/Ml 2 Ml Vial) 4 mg IV NOW STA Stop: 11/02/22 17:57 Last Admin: 11/02/22 18:18 Dose: 4 mg Documented By: ABHIJEET Imaging Data Radiologist's Impression: Lumbar Spine CT 11/02/22 17:56 CT lumbar spine wo con CLINICAL HISTORY: surg, fall, pain . Back surgery 2 weeks ago. Fall twice today. TECHNIQUE: Multidetector row helical CT of the lumbar spine was performed without administration of intravenous contrast. Coronal and sagittal reformations were obtained. Automated dose lowering techniques and/or adjustment according to patient size were utilized for this exam. CT DOSE: 1076.05 mGy.cm Comparison: Comparison is made to CT lumbar spine 10/12/2022 FINDINGS: Aortic calcifications are seen. Posterior spinal fixation hardware spans L3-L5. Postsurgical changes of decompression are seen with heterotopic ossification noted. Disc osteophyte complexes are seen at multiple levels. IMPRESSION: No acute bony injury is seen. Multilevel disc disease is noted. MRI can be performed if there is concern for stenosis. Postsurgical changes of decompression and fusion spanning L3 L5 is noted. Heterotopic ossification is seen. ACT 112: Negative or not required by law. Electronically signed by: Unruly Mcneill M.D. 11/02/2022 7:33 PM Discharge Plan Visit Data Chief Complaint: Back Injury/Pain Stated Complaint: s/p BACK [id number] OUT/FELL 2X TODAY PAINFUL ED Provider: Kumar Coronado Discharge Problem: Weakness, Lower back pain, Fall, History of lumbar surgery Patient Disposition: Admitted As Inpatient Condition: Fair Forms Stand Alone Forms: [facility] Prescriptions Prescriptions: No Action cyclobenzaprine 10 mg Tablet 10 mg PO BID PRN (Reason: Muscle Spasm) Qty: 0 albuterol sulfate [Ventolin HFA] 90 mcg/actuation Hfa Aerosol Inhaler 2 puff INHALATION Q4H PRN (Reason: Shortness Of Breath Or Wheezing) Qty: 0 Trulicity 4.5 mg/0.5 mL pen injector 4.5 mg SUBCUT WK Qty: 2 1RF Rx Instructions: TUESDAYS-- montelukast [Singulair] 10 mg tablet 10 mg PO HS fluticasone propion-salmeterol [AirDuo RespiClick] 232-14 mcg/actuation aerosol powdr breath activated 2 inh inhalation BID PRN (Reason: Shortness Of Breath) ibuprofen 800 mg tablet 800 mg PO TID PRN (Reason: Pain) promethazine 25 mg tablet 25 mg PO Q6H PRN (Reason: Nausea) aspirin 81 mg Tablet,Delayed Release (Dr/Ec) 81 mg PO QAM cyclosporine [Restasis] 0.05 % Dropperette 2 drp OPHTHALMIC (EYE) Q12H duloxetine 60 mg capsule,delayed release(DR/EC) 60 mg PO HS buspirone 5 mg tablet 5 mg PO QID Trulicity 1.5 mg/0.5 mL pen injector 1.5 mg SUBCUT UD nystatin [Nyamyc] 100,000 unit/gram powder 1 applic TOPICAL UD oxycodone 5 mg Tablet 5 - 10 mg PO Q4H PRN (Reason: pain) Qty: 0 0RF Rx Instructions: severe pain 10 mg moderate pain 5 mg sennosides-docusate sodium [Senokot-S] 8.6-50 mg Tablet 2 tab PO HS Qty: 0 0RF insulin aspart U-100 [Novolog FlexPen U-100 Insulin] 100 unit/mL (3 mL) insulin pen 8 unit SC TID Qty: 15 0RF Rx Instructions: plus sliding scale insulin glargine [Lantus Solostar U-100 Insulin] 100 unit/mL (3 mL) insulin pen 35 unit subcut BID Qty: 1 0RF levetiracetam 1,000 mg tablet 1,000 mg PO BID diclofenac sodium 1 % Gel 4 g TOPICAL QID PRN (Reason: Pain) albuterol sulfate 2.5 mg /3 mL (0.083 %) solution for nebulization 2.5 mg inhalation Q6 PRN (Reason: Wheezing) famotidine 40 mg tablet 40 mg PO BID pantoprazole 20 mg tablet,delayed release (DR/EC) 20 mg PO QAM lidocaine 5 % adhesive patch,medicated 1 patch transdermal DAILY PRN (Reason: Pain) fluticasone propionate [Flonase Allergy Relief] 50 mcg/actuation spray,suspension 1 spray INTRANASAL DAILY PRN (Reason: Congestion) trazodone 100 mg tablet 100 mg PO HS polyethylene glycol 3350 [Miralax] 17 gram/dose Powder 17 g PO BID gabapentin 800 mg tablet 800 mg PO TID ondansetron 4 mg tablet,disintegrating 4 mg PO Q6H PRN (Reason: nausea and vomiting) Qty: 12 0RF Referrals Referrals: Aneudy Pérez MD [Primary Care Provider] -
[2022-11-02 18:46] LABS: Basophils # (auto) 0.02 K/uL (0-0.2); Basophils % (auto) 0.4 %; Eosinophils # (auto) 0.11 K/uL (0-0.50); Hematocrit (blood only) 33.2 % (34.1-44.9); Hemoglobin 11.1 g/dl (12.0-16.0); Immature Granulocytes # (auto) 0.02 K/uL (0.00-0.02); Immature Granulocytes % (auto) 0.4 %; Lymphocytes # (auto) 0.97 K/uL (1.2-3.4); Lymphocytes % (auto) 18.1 %; Mean Corpuscular Hemoglobin 31.4 pg (25.0-34.0); Mean Corpuscular Hgb Conc 33.4 g/dL (32.0-36.0); Mean Corpuscular Volume 94.1 fL (80.0-100.0); Mean Platelet Volume 9.9 fL (9.4-12.3); Monocytes # (auto) 0.42 K/uL (0.24-0.82); Monocytes % (auto) 7.8 %; Neutrophils # (auto) 3.83 K/uL (1.4-6.5); Neutrophils % (auto) 71.3 %; Platelet Count 214 K/uL (130-400); RDW Coefficient of Variation 14.2 % (11.5-14.5); Red Blood Count 3.53 M/uL (3.93-5.22); White Blood Count 5.37 K/ul (4.8-10.8)
[2022-11-02 18:58] LABS: Albumin Globulin Ratio 1.1 (0.9-2); Albumin Level 3.5 gm/dl (3.4-5.0); BUN Creatinine Ratio 18.5 (10-20); Bilirubin,Total 0.4 mg/dl (0.2-1.0); Calcium 9.3 mg/dl (8.5-10.1); Creatinine Clr Calc Pharmacy 147.5 ml/min; Globulin 3.3 gm/dl (2.5-4.0); Potassium 3.5 mmol/L (3.5-5.1); Total Protein 6.8 gm/dl (6.0-8.3)
--- NOTE | 2022-11-02 19:34 | CT Scan Report ---
CT lumbar spine wo con CLINICAL HISTORY: surg, fall, pain . Back surgery 2 weeks ago. Fall twice today. TECHNIQUE: Multidetector row helical CT of the lumbar spine was performed without administration of i ntravenous contrast. Coronal and sagittal reformations were obtained. Automated dose lowering techniq ues and/or adjustment according to patient size were utilized for this exam. CT DOSE: 1076.05 mGy.cm Comparison: Comparison is made to CT lumbar spine 10/12/2022 FINDINGS: Aortic calcifications are seen. Posterior spinal fixation hardware spans L3-L5. Postsurgical changes of decompression are seen with heterotopic ossification noted. Disc osteophyte complexes are seen at multiple levels. IMPRESSION: No acute bony injury is seen. Multilevel disc disease is noted. MRI can be performed if there is conc gerhard for stenosis. Postsurgical changes of decompression and fusion spanning L3 L5 is noted. Heterotop ic ossification is seen. ACT 112: Negative or not required by law. Electronically signed by: Unruly Mcneill M.D. 11/02/2022 7:33 PM
--- NOTE | 2022-11-02 20:41 | History & Physical Report ---
Date of Service November 02, 2022 Assessment & Plan (1) Weakness: Plan: 52-year-old woman with long-term history of uncontrolled diabetes, lumbar stenosis,, and recent lumbar surgery who presented to the ED following 2 controlled falls. Now admitted for management of back pain, ambulatory dysfunction. Fall/LE weakness -No focal weakness. No LOC. No head trauma. No dizziness/presyncope. Electrolytes wnl -Recently discharged from [facility] rehab. Patient still requiring ambulatory support at time of discharge. * Admit to [facility] * Orthopedic surgery consult * Pain control regimen: Tylenol 1000 mg every 8H scheduled; as needed Dilaudid 0.5 mg, 1 mg every 3 hours for breakthrough pain. * Home gabapentin 800 mg daily * PT/OT ordered DM2/acute hyperglycemia -Chronic poorly controlled diabetes. Takes Trulicity 4.5 mg q. weekly, Lantus 35 units twice daily, NovoLog 8 units 3 times daily. -Blood glucose 278 on admission. * SQ sliding scale insulin per protocol * Hemoglobin A1c a.m. Seizure * Home Keppra 1000 mg 3 times daily Anxiety/depression * Duloxetine 60 mg nightly; Buspirone 5 mg p.o. 4 times daily GERD * Famotidine 40 mg twice daily; pantoprazole 20 mg every morning Constipation * MiraLAX 17 g twice daily; Senokot-S nightly * As needed Milk of magnesia, Maalox Insomnia * Trazodone 100 mg nightly Code: Full code Dispo: Med-Surg FEN/GI: Carb consistent DVT Prophylaxis: Lovenox 30 mg q24h PT/OT: Yes Consults: Orthopedic surgery wnl (2) Fall: (3) History of lumbar surgery: (4) Acute hyperglycemia: (5) Seizure: History of Present Illness Primary Care Provider: Aneudy Pérez MD Elza is a 52-year-old female with DM2, cirrhosis, dyslipidemia, and lumbar spinal stenosis, recently discharged following lumbar surgery, who presents today with a complaint of severe back pain after 2 controlled falls. She was discharged from our hospital 10 days ago after the aforementioned surgery. She was discharged from the hospital to [facility] rehab, where she left for home today. 4 hours after being home, she had a controlled fall. She had a second controlled fall and was brought to the hospital for evaluation. Since the controlled falls, she has had increasing pain in the lower back. Mostly on the right. Patient states that her legs felt weak today, she thinks this is why she fell. There has been no fever, no cough or congestion or chest pain. She has not had urinary complaints. The patient states that she has not taken any pain medication today since leaving rehab. She describes her pain as severe right now. In the ED, labs were notable for a glucose of 278, and an alkaline phosphatase of 194. CT lumbar spine showed no acute bony injury. She received IV morphine 6 mg for pain and hospitalist was consulted regarding admission for further management. On admission, patient corroborated HPI. She denies headache, nausea, vomiting, dizziness, loss of consciousness, numbness, tingling. Allergies Allergy/AdvReac Type Severity Reaction Status Date / Time acetaminophen AdvReac Severe LIVER Verified 11/02/22 21:13 COMPLICATIONS cephalexin AdvReac Severe Vomiting Verified 11/02/22 21:13 levofloxacin [From Levaquin] AdvReac Intermediate Vomiting Verified 11/02/22 21:13 Home Medications Medication Instructions Recorded Confirmed Type cyclobenzaprine 10 mg tablet 10 mg PO BID PRN Muscle Spasm ##0 11/18/17 11/02/22 History albuterol sulfate 90 mcg/actuation 2 puff inhalation Q4H PRN 02/10/18 11/02/22 History aerosol inhaler (Ventolin HFA) Shortness Of Breath Or Wheezing ##0 ibuprofen 800 mg tablet 800 mg PO TID PRN Pain 10/24/19 11/02/22 History promethazine 25 mg tablet 25 mg PO Q6H PRN Nausea 10/24/19 11/02/22 History fluticasone 232 mcg-salmeterol 14 2 inh inhalation BID PRN Shortness 08/21/20 11/02/22 History mcg/actuation breath activated Of Breath powdr (AirDuo RespiClick) montelukast 10 mg tablet 10 mg PO HS 09/01/20 11/02/22 History (Singulair) aspirin 81 mg tablet,delayed 81 mg PO QAM 10/28/20 11/02/22 History release cyclosporine 0.05 % eye drops in a 2 drp ophthalmic (eye) Q12H 04/17/21 11/02/22 History dropperette (Restasis) diclofenac sodium 1 % topical gel 4 g topical QID PRN Pain 07/20/21 11/02/22 History albuterol sulfate 2.5 mg/3 mL 2.5 mg inhalation Q6 PRN Wheezing 01/19/22 11/02/22 History (0.083 %) solution for nebulization famotidine 40 mg tablet 40 mg PO BID 01/19/22 11/02/22 History fluticasone propionate 50 1 spray intranasal DAILY PRN 01/19/22 11/02/22 History mcg/actuation nasal Congestion spray,suspension (Flonase Allergy Relief) lidocaine 5 % topical patch 1 patch transdermal DAILY PRN Pain 01/19/22 11/02/22 History pantoprazole 20 mg tablet,delayed 20 mg PO QAM 01/19/22 11/02/22 History release polyethylene glycol 3350 17 17 g PO BID 01/29/22 11/02/22 History gram/dose oral powder (Miralax) trazodone 100 mg tablet 100 mg PO HS 01/29/22 11/02/22 History duloxetine 60 mg capsule,delayed 60 mg PO HS 03/12/22 11/02/22 History release gabapentin 800 mg tablet 800 mg PO TID 04/05/22 11/02/22 History buspirone 5 mg tablet 5 mg PO QID 07/30/22 11/02/22 History ondansetron 4 mg disintegrating 4 mg PO Q6H PRN nausea and 08/11/22 11/02/22 Rx tablet vomiting #12 tabs dulaglutide 4.5 mg/0.5 mL 4.5 mg (0.5 mL) subcut WK #2 mL 10/06/22 11/02/22 Rx subcutaneous pen injector (Trulicity) dulaglutide 1.5 mg/0.5 mL 1.5 mg subcut UD 10/12/22 11/02/22 History subcutaneous pen injector (Trulicity) nystatin 100,000 unit/gram topical 1 applic topical UD 10/12/22 11/02/22 History powder (Nyamyc) insulin aspart U-100 100 unit/mL 8 unit (0.08 mL) SC TID #15 mL 10/23/22 11/02/22 Rx (3 mL) subcutaneous pen (Novolog FlexPen U-100 Insulin aspart) insulin glargine 100 unit/mL (3 35 unit (0.35 mL) subcut BID #1 mL 10/23/22 11/02/22 Rx mL) subcutaneous pen (Lantus Solostar U-100 Insulin) oxycodone 5 mg tablet 5 - 10 mg PO Q4H PRN pain #0 tabs 10/23/22 11/02/22 Rx sennosides 8.6 mg-docusate sodium 2 tab PO HS #0 tabs 10/23/22 11/02/22 Rx 50 mg tablet (Senokot-S) levetiracetam 1,000 mg tablet 1,000 mg PO BID 11/02/22 11/02/22 History Past Med/Surg History Medical History (Updated 11/02/22 @ 23:42 by Toñito Diamond MD) Abdominal pain Acute hyperglycemia Anxiety Brain cyst Chest pain Chronic low back pain with left-sided sciatica Chronic obstructive pulmonary disease Dental abscess Depression Elevated lactic acid level Emphysema of lung Encounter for pre-operative examination Hx of blood clots Hyperglycemia Hyperglycemia Hyperglycemia due to type 2 diabetes mellitus Hypertension Hypokalemia Hypomagnesemia Hyponatremia Insulin dependent diabetes mellitus Lightheadedness Medication reaction Obesity Periapical abscess with facial involvement Pulmonary embolism Reports was anticoagulation x 60 days, not on chronic anticoagulation Syncope Thrombocytopenia Tinea corporis Tinea cruris Uncontrolled type 2 diabetes mellitus Surgical History (Updated 11/02/22 @ 21:29 by Kumar Coronado MD) History of laparoscopic cholecystectomy Hx of oral surgery (02/15/20) Acute right submandibular, submental space infection with floor of mouth infection caused by infected lower teeth. Dr. Rios 02/15/20 S/P dilation and curettage S/P laparoscopic hernia repair S/P laparoscopic procedure ovarian cyst surgery Family History Mother , 73 Heart disease Cancer small cell ca lung caused at 73 Father Skin cancer Brother No problems noted. Sister No problems noted. Grandmother (Maternal) , 48 Heart disease T2DM (type 2 diabetes mellitus) Grandmother (Paternal) , 83 Heart disease Kidney disease Uncle T2DM (type 2 diabetes mellitus) Other Diabetes Obesity Denies family history of Ovarian cancer Breast cancer Colorectal cancer Uterine cancer Social History Smoking Status: Former smoker Tobacco Type: Cigarettes Cigarettes Per Day: 5; Second Hand Exposure: Yes; Hx Alcohol Use: No Hx Substance Use: No Preferred Language: Citizen Of [place] Communication Ability: Effective Visual Impairment: No Limitations Hearing Ability: Normal Customer Service Technician Required: No Beliefs That Will Affect Care: Quaker Quaker Beliefs: Latter-Day marital status: Current Living Situation: Family Current Living Situation Comment: Lives with son (15yo) current occupational status: unemployed 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 HEENT: Normocephalic, atraumatic. EOM intact. Good conjugate gaze. Nares patent. Moist mucosal membranes. Neck: Supple. No lymphadenopathy. Normal ROM. CV: Regular rate and rhythm. Normal S1 and S2. No murmurs gallops or rubs. Respiratory: Normal respiratory effort. Lungs clear to auscultation bilaterally. Abdomen: Soft, nondistended abdomen. No bruits heard on auscultation. No tenderness to deep palpation. No guarding or rebound. Extremities: Capillary refill <2 sec. 2+ dp equal bilaterally. No pedal edema. Neuro: Alert and oriented x3. Skin: Clean, dry, and intact. No rashes, bruises, or erythema. Results & Data Results & Data ([facility]) Vital Signs (Past 12 Hours) Vital Signs Temp Pulse Pulse Resp BP BP Pulse Ox 11/02/22 20:20 80 20 108/85 100 11/02/22 19:52 84 21 128/61 97 11/02/22 17:04 36.7 C 80 16 151/64 H 100 O2 Del Method 11/02/22 20:20 Room Air 11/02/22 19:52 Room Air 11/02/22 17:04 Room Air Supervising Physician Co-Signing Physician Notes Patient seen and examined, chart reviewed, case discussed with Dr. Diamond and I agree with the assessment and plan as documented above. In brief, patient is a 52-year-old female with history of seizures, diabetes, cirrhosis presenting with back pain. Patient with severe spinal stenosis. Recently admitted to [facility] from 10/12/2022 - 10/23/2022 with severe spinal stenosis. She had an L3-L5 decompression and fusion performed on 10/20/[address] Sharpe. She was subsequently discharged to [facility]. Overall has been doing well. She did leave rehab earlier today. Shortly after returning home she had 2 falls and returns to the ER today with increased pain. Of note, patient did not take any pain medication since arriving home. On exam she is awake alert and oriented, no acute distress, resting comfortably Skinwarm, dry HEENT moist mucous membranes, neck supple Heart + S1, S2, regular, no murmur/rub/gallops Lungsequal air entry bilaterally, no rales/rhonchi/wheezes Abdomenpositive bowel sounds, soft, nontender/nondistended Extremitieswarm, well-perfused, no edema Labs and images reviewed Assessment/plan 52-year-old female with recent back surgery presenting with worsening pain, 2 controlled falls prior to arrival. Suspect at least in part the patient's pain is secondary to not taking medications today, cumulative effect of pain. Patient has allergy listed to Tylenol-discussed with pharmacy, unable to confirm Tylenol doses administered during recent admissions.We will hold off on giving Tylenol for now.Pain control with IV Dilaudid as needed (patient reports nausea associated with morphine). Orthopedic surgery consultation appreciated. PT/OT evaluation with possible return to rehab Poorly controlled diabeteslast hemoglobin A1c = 10.7 on 08/13/2022. Patient does follow with diabetes clinic. Lantus 15 units twice daily with insulin sliding scale Cirrhosiscompensated. Monitor Remainder of plan as above Resident Activity Tracking Resident Involvement: Resident Care Provided Care Provided: Adult Hospital Medicine (1) Fall Encounter type: initial encounter Qualified Code(s): W19.XXXA - Unspecified f all, initial encounter
[2022-11-02] MEDS ORDERED: GLUCOSE 10 TAB/TUBE PO PRN (21:57)
[2022-11-02] MEDS ORDERED: ONDANSETRON INJ 2 MG/ML 2 ML VIAL IV PRN (21:57)
[2022-11-02] MEDS ORDERED: ALUMINUM/MAGNESIUM SUSP 30 ML UDC PO PRN (21:57)
[2022-11-02] MEDS ORDERED: GLUCAGON FOR INJ 1 MG VIAL SQ PRN (21:57)
[2022-11-02] MEDS ORDERED: MAGNESIUM HYDROXIDE SUSP 30 ML UDC PO PRN (21:57)
[2022-11-02] MEDS ORDERED: GLUCOSE 40% GEL 15 GM TUBE PO PRN (21:57)
[2022-11-02] MEDS ORDERED: DEXTROSE 50% 50 ML SYRINGE IV PRN (21:57)
[2022-11-02] MEDS ORDERED: CARBOHYDRATES FOR HYPOGLYCEMIA PO PRN (21:57)
[2022-11-02] MEDS: HYDROmorphone INJ 0.5 MG/0.5 ML SYR IV PRN (22:43)
--- NOTE | 2022-11-02 23:56 | Billing Data ---
Date of Service November 02, 2022 Coding Level of Care Code 71303 INT INP/OBS CARE
[2022-11-03] MEDS ORDERED: ACETAMINOPHEN 500 MG TAB PO SCH
[2022-11-03 00:15] LABS: Magnesium 1.8 mg/dl (1.7-2.4); Phosphorus 3.1 mg/dl (2.5-4.9)
[2022-11-03] MEDS ORDERED: ALBUTEROL HFA 8 GM INHALER INH PRN (01:18)
[2022-11-03] MEDS ORDERED: ONDANSETRON 4 MG OD TAB PO PRN (01:18)
[2022-11-03] MEDS ORDERED: DICLOFENAC SOD 1% GEL 100 GM TUBE EXT PRN (01:18)
[2022-11-03] MEDS ORDERED: LIDOCAINE 5% 1 PATCH TD PRN (01:18)
[2022-11-03] MEDS ORDERED: [UNRECOGNIZED DRUG - OTHER] INH PRN (01:18)
[2022-11-03] MEDS ORDERED: FLUTICASONE PROPIONATE NA SPR 16 GM BTL PRN (01:18)
[2022-11-03] MEDS ORDERED: SALMETEROL INH PRN (01:18)
[2022-11-03] MEDS ORDERED: FLUTICASONE INH PRN (01:18)
[2022-11-03] MEDS: INSULIN ASPART PER UNIT SC SCH ×5 (01:26→21:36)
[2022-11-03] MEDS: HYDROmorphone INJ 0.5 MG/0.5 ML SYR IV PRN ×7 (01:33→23:05)
[2022-11-03] MEDS: levETIRAcetam 500 MG TAB PO SCH ×3 (02:12→21:35)
[2022-11-03] MEDS: ENOXAPARIN INJ 30 MG/0.3 ML SYR SQ SCH (05:06)
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
[2022-11-03 08:03] LABS: Basophils # (auto) 0.01 K/uL (0-0.2); Basophils % (auto) 0.2 %; Eosinophils # (auto) 0.19 K/uL (0-0.50); Eosinophils % (auto) 3.7 %; Hematocrit (blood only) 31.4 % (34.1-44.9); Hemoglobin 10.3 g/dl (12.0-16.0); Immature Granulocytes # (auto) 0.02 K/uL (0.00-0.02); Immature Granulocytes % (auto) 0.4 %; Lymphocytes % (auto) 32.9 %; Mean Corpuscular Hemoglobin 30.9 pg (25.0-34.0); Mean Corpuscular Hgb Conc 32.8 g/dL (32.0-36.0); Mean Corpuscular Volume 94.3 fL (80.0-100.0); Mean Platelet Volume 9.8 fL (9.4-12.3); Monocytes # (auto) 0.67 K/uL (0.24-0.82); Neutrophils # (auto) 2.58 K/uL (1.4-6.5); Neutrophils % (auto) 49.8 %; Platelet Count 197 K/uL (130-400); RDW Coefficient of Variation 14.2 % (11.5-14.5); RDW Standard Deviation 48.2 fL (36.4-46.3); Red Blood Count 3.33 M/uL (3.93-5.22); White Blood Count 5.17 K/ul (4.8-10.8)
[2022-11-03 08:20] LABS: Albumin Globulin Ratio 1.1 (0.9-2); Albumin Level 3.1 gm/dl (3.4-5.0); Bilirubin,Total 0.6 mg/dl (0.2-1.0); Calcium 9.2 mg/dl (8.5-10.1); Creatinine Clr Calc Pharmacy 153.6 ml/min; Est GFR (African American) 126.3 ml/min; Globulin 2.8 gm/dl (2.5-4.0); Magnesium 1.9 mg/dl (1.7-2.4); Phosphorus 4.1 mg/dl (2.5-4.9); Potassium 3.8 mmol/L (3.5-5.1); Total Protein 5.9 gm/dl (6.0-8.3)
[2022-11-03] MEDS ORDERED: POLYETHYLENE (MIRALAX) 17 GM PACK PO SCH (09:00)
[2022-11-03] MEDS ORDERED: POTASSIUM CHLORIDE CRTAB 20 MEQ TABCR PO SCH (09:00)
[2022-11-03 11:18] LABS: BUN Creatinine Ratio 17.6 (10-20)
[2022-11-03] MEDS: LANTUS PER UNIT CHARGE SQ SCH ×2 (11:23→21:40)
[2022-11-03] MEDS: ASPIRIN 81 MG ECTAB PO SCH (12:10)
[2022-11-03] MEDS: FAMOTIDINE 40 MG TABLET PO SCH ×2 (12:11→21:33)
[2022-11-03] MEDS: FLUTICASONE/VILANTEROL 200/25MCG 14 PUFFS/INHALER INH SCH (12:11)
[2022-11-03] MEDS: GABAPENTIN 800 MG TAB PO SCH ×3 (12:12→21:32)
[2022-11-03] MEDS: busPIRone 5 MG TAB PO SCH ×4 (12:13→21:32)
[2022-11-03] MEDS: PANTOprazole 40 MG TAB PO SCH (12:15)
[2022-11-03] MEDS: POLYETHYLENE (MIRALAX) 17 GM PACK PO SCH ×2 (12:15→21:31)
--- NOTE | 2022-11-03 13:02 | Orthopedic Consultation ---
Date of Consultation November 03, 2022 Assessment & Plan (1) Neurogenic claudication due to lumbar spinal stenosis: At this time her CAT scan appears to be benign. Instrumentation was placed in proper alignment there is no evidence of adjacent level fracture. I recommend occupational physical therapy once her pain is controlled and return to rehab. History of Present Illness Reason for Consultation: Back pain Attending Physician: Shavonne Montenegro DO History of Present Illness This is a 52-year-old female known to me the status post lumbar decompression fusion. She had been discharged to rehab and the done very nicely for the 10 days she was there. She went home had a fall and now complains of some right sided back pain. She denies any radicular complaints this morning. She is complaining of pain. Allergies Allergy/AdvReac Type Severity Reaction Status Date / Time acetaminophen AdvReac Severe LIVER Verified 11/02/22 21:13 COMPLICATIONS cephalexin AdvReac Severe Vomiting Verified 11/02/22 21:13 levofloxacin [From Levaquin] AdvReac Intermediate Vomiting Verified 11/02/22 21:13 Home Medications Medication Instructions Recorded Confirmed Type cyclobenzaprine 10 mg tablet 10 mg PO BID PRN Muscle Spasm ##0 11/18/17 11/02/22 History albuterol sulfate 90 mcg/actuation 2 puff inhalation Q4H PRN 02/10/18 11/02/22 History aerosol inhaler (Ventolin HFA) Shortness Of Breath Or Wheezing ##0 ibuprofen 800 mg tablet 800 mg PO TID PRN Pain 10/24/19 11/02/22 History promethazine 25 mg tablet 25 mg PO Q6H PRN Nausea 10/24/19 11/02/22 History fluticasone 232 mcg-salmeterol 14 2 inh inhalation BID PRN Shortness 08/21/20 11/02/22 History mcg/actuation breath activated Of Breath powdr (AirDuo RespiClick) montelukast 10 mg tablet 10 mg PO HS 09/01/20 11/02/22 History (Singulair) aspirin 81 mg tablet,delayed 81 mg PO QAM 10/28/20 11/02/22 History release cyclosporine 0.05 % eye drops in a 2 drp ophthalmic (eye) Q12H 04/17/21 11/02/22 History dropperette (Restasis) diclofenac sodium 1 % topical gel 4 g topical QID PRN Pain 07/20/21 11/02/22 History albuterol sulfate 2.5 mg/3 mL 2.5 mg inhalation Q6 PRN Wheezing 01/19/22 3 History (0.083 %) solution for nebulization famotidine 40 mg tablet 40 mg PO BID 01/19/22 11/02/22 History fluticasone propionate 50 1 spray intranasal DAILY PRN 01/19/22 11/02/22 History mcg/actuation nasal Congestion spray,suspension (Flonase Allergy Relief) lidocaine 5 % topical patch 1 patch transdermal DAILY PRN Pain 01/19/22 11/02/22 History pantoprazole 20 mg tablet,delayed 20 mg PO QAM 01/19/22 11/02/22 History release polyethylene glycol 3350 17 17 g PO BID 01/29/22 11/02/22 History gram/dose oral powder (Miralax) trazodone 100 mg tablet 100 mg PO HS 01/29/22 11/02/22 History duloxetine 60 mg capsule,delayed 60 mg PO HS 03/12/22 11/02/22 History release gabapentin 800 mg tablet 800 mg PO TID 04/05/22 11/02/22 History buspirone 5 mg tablet 5 mg PO QID 07/30/22 11/02/22 History ondansetron 4 mg disintegrating 4 mg PO Q6H PRN nausea and 08/11/22 11/02/22 Rx tablet vomiting #12 tabs dulaglutide 4.5 mg/0.5 mL 4.5 mg (0.5 mL) subcut WK #2 mL 10/06/22 11/02/22 Rx subcutaneous pen injector (Trulicity) dulaglutide 1.5 mg/0.5 mL 1.5 mg subcut UD 10/12/22 11/02/22 History subcutaneous pen injector (Trulicity) nystatin 100,000 unit/gram topical 1 applic topical UD 10/12/22 11/02/22 History powder (Nyamyc) insulin aspart U-100 100 unit/mL 8 unit (0.08 mL) SC TID #15 mL 10/23/22 11/02/22 Rx (3 mL) subcutaneous pen (Novolog FlexPen U-100 Insulin aspart) insulin glargine 100 unit/mL (3 35 unit (0.35 mL) subcut BID #1 mL 10/23/22 11/02/22 Rx mL) subcutaneous pen (Lantus Solostar U-100 Insulin) oxycodone 5 mg tablet 5 - 10 mg PO Q4H PRN pain #0 tabs 10/23/22 11/02/22 Rx sennosides 8.6 mg-docusate sodium 2 tab PO HS #0 tabs 10/23/22 11/02/22 Rx 50 mg tablet (Senokot-S) levetiracetam 1,000 mg tablet 1,000 mg PO BID 11/02/22 11/02/22 History Patient History Medical History (Updated 11/02/22 @ 23:42 by Toñito Diamond MD) Abdominal pain Acute hyperglycemia Anxiety Brain cyst Chest pain Chronic low back pain with left-sided sciatica Chronic obstructive pulmonary disease Dental abscess Depression Elevated lactic acid level Emphysema of lung Encounter for pre-operative examination Hx of blood clots Hyperglycemia Hyperglycemia Hyperglycemia due to type 2 diabetes mellitus Hypertension Hypokalemia Hypomagnesemia Hyponatremia Insulin dependent diabetes mellitus Lightheadedness Medication reaction Obesity Periapical abscess with facial involvement Pulmonary embolism Reports was anticoagulation x 60 days, not on chronic anticoagulation Syncope Thrombocytopenia Tinea corporis Tinea cruris Uncontrolled type 2 diabetes mellitus Surgical History (Updated 11/02/22 @ 21:29 by Kumar Coronado MD) History of laparoscopic cholecystectomy Hx of oral surgery (02/15/20) Acute right submandibular, submental space infection with floor of mouth infection caused by infected lower teeth. Dr. Rios 02/15/20 S/P dilation and curettage S/P laparoscopic hernia repair S/P laparoscopic procedure ovarian cyst surgery Family History Mother , 73 Heart disease Cancer small cell ca lung caused at 73 Father Skin cancer Brother No problems noted. Sister No problems noted. Grandmother (Maternal) , 48 Heart disease T2DM (type 2 diabetes mellitus) Grandmother (Paternal) , 83 Heart disease Kidney disease Uncle T2DM (type 2 diabetes mellitus) Other Diabetes Obesity Denies family history of Ovarian cancer Breast cancer Colorectal cancer Uterine cancer Social History Smoking Status: Former smoker Tobacco Type: Cigarettes Cigarettes Per Day: 5; Second Hand Exposure: Yes; Hx Alcohol Use: No Hx Substance Use: No Preferred Language: [place] Communication Ability: Effective Visual Impairment: No Limitations Hearing Ability: Normal Integration Analyst Required: No Beliefs That Will Affect Care: None marital status: Current Living Situation: Alone Current Living Situation Comment: Lives with son (15yo) current occupational status: unemployed 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 She exhibits reasonable plantar flexion dorsiflexion hip flexors. Sensory appears to be intact. Results & Data ([facility]) Vital Signs (Past 12 Hours) Vital Signs Temp Pulse Resp BP Pulse Ox O2 Del Method 11/03/22 08:28 36.8 C 61 16 112/71 99 Room Air
[2022-11-03] MEDS: traZODone HCL 100 MG TAB PO SCH (21:33)
[2022-11-03] MEDS: DULoxetine HCL 60 MG CAP PO SCH (21:33)
[2022-11-03] MEDS: DOCUSATE SODIUM/SENNA 50/8.6MG TAB PO SCH (21:34)
[2022-11-03] MEDS: MONTELUKAST SODIUM 10 MG TABLET PO SCH (21:34)
[2022-11-03] MEDS: oxyCODONE HCL IR 5 MG TAB (IMMEDIATE RELEASE) PO PRN (21:40)
[2022-11-04] MEDS: HYDROmorphone INJ 0.5 MG/0.5 ML SYR IV PRN ×7 (01:48→23:03)
[2022-11-04] MEDS: ENOXAPARIN INJ 30 MG/0.3 ML SYR SQ SCH (06:11)
--- NOTE | 2022-11-04 07:51 | Hospitalist Progress Note ---
Date of Service November 04, 2022 Assessment & Plan (1) Weakness: Plan: 52-year-old woman with long-term history of uncontrolled diabetes, lumbar stenosis,, and recent lumbar surgery who presented to the ED following 2 controlled falls. Now admitted for management of back pain, ambulatory dysfunction. Fall/LE weakness -No focal weakness. No LOC. No head trauma. No dizziness/presyncope. -Recently discharged from [facility]hab. Patient still requiring ambulatory support at time of discharge. * [facility] * Orthopedic surgery consult * Pain control regimen: Dilaudid 0.5 mg PRN, 1 mg every 3 hours for breakthrough pain. * Home gabapentin 800 mg daily * PT/OT ordered - CBC/CMP unremarkable - Ortho recommending continue rehabilitation and pain control --- Continue Dilaudid and Oxycodone, avoid Tylenol --- Pending return to rehab DM2/acute hyperglycemia -Chronic poorly controlled diabetes. Takes Trulicity 4.5 mg q. weekly, Lantus 35 units twice daily, NovoLog 8 units 3 times daily. -Blood glucose 278 on admission. * SQ sliding scale insulin per protocol * Hemoglobin A1c a.m. --- HbA1c 8.9 Seizure * Home Keppra 1000 mg 3 times daily Anxiety/depression * Duloxetine 60 mg nightly; Buspirone 5 mg p.o. 4 times daily GERD * Famotidine 40 mg twice daily; pantoprazole 20 mg every morning Constipation * MiraLAX 17 g twice daily; Senokot-S nightly * As needed Milk of magnesia, Maalox Insomnia * Trazodone 100 mg nightly Code: Full code Dispo: Med-Surg FEN/GI: Carb consistent DVT Prophylaxis: Lovenox 30 mg q24h PT/OT: Yes Consults: Orthopedic surgery CM: May require SNF for rehab (2) Fall: (3) History of lumbar surgery: (4) Acute hyperglycemia: (5) Seizure: Admission and Anticipated Discharge Date Admission Date: November 02, 2022 Supervising Physician Co-Signing Physician Notes I have seen and examined patient. I agree with Assessment and plan as documented by Medical Student/Resident. Subjective Elza was comfortable at bedside this morning. Her pain is improved with current pain regimen. She denies any fevers or chills. She is not experiencing any chest pain, dyspnea, abdominal pain, or bowel/bladder changes. She is aware that she will need to return for rehabilitation and wishes to return to [facility], pending insurance authorization. Review of Systems Review of Systems: As per HPI Physical Exam Physical Exam: General: No acute distress HEENT: NCAT CV: Non-labored, CTAB Respiratory: RRR, normal S1/S2 no MRG Abdomen: Soft, no TTP, + bowel sounds Extremities: Capillary refill <2 sec. 2+ dp equal bilaterally. No pedal edema. Strength and sensation symmetric bilaterally. Back: Incision clean and dry, healing well, right paraspinal hypertonicity, no ecchymosis or erythema Neuro: Alert and oriented x3. Results & Data Results & Data ([facility]) Vital Signs (Past 12 Hours) Vital Signs Temp Pulse Resp BP Pulse Ox O2 Del Method 11/03/22 21:30 37.3 C 87 18 103/62 95 Room Air (1) Fall Encounter type: initial encounter Qualified Code(s): W19.XXXA - Unspecified fall, initial encounter
[2022-11-04 08:33] LABS: Albumin Globulin Ratio 1.1 (0.9-2); Albumin Level 3.3 gm/dl (3.4-5.0); BUN Creatinine Ratio 19.7 (10-20); Bilirubin,Total 0.8 mg/dl (0.2-1.0); Calcium 9.5 mg/dl (8.5-10.1); Creatinine Clr Calc Pharmacy 118.7 ml/min; Est GFR (African American) 116.1 ml/min; Est GFR (Non-African American) 100.1 ml/min; Globulin 3.1 gm/dl (2.5-4.0); Magnesium 1.9 mg/dl (1.7-2.4); Phosphorus 4.7 mg/dl (2.5-4.9); Potassium 3.9 mmol/L (3.5-5.1); Total Protein 6.4 gm/dl (6.0-8.3)
[2022-11-04] MEDS: POLYETHYLENE (MIRALAX) 17 GM PACK PO SCH ×2 (08:58→21:57)
[2022-11-04] MEDS: FAMOTIDINE 40 MG TABLET PO SCH ×2 (08:59→21:58)
[2022-11-04] MEDS: ASPIRIN 81 MG ECTAB PO SCH (08:59)
[2022-11-04] MEDS: busPIRone 5 MG TAB PO SCH ×4 (08:59→21:56)
[2022-11-04] MEDS: levETIRAcetam 500 MG TAB PO SCH ×2 (09:00→21:57)
[2022-11-04] MEDS: FLUTICASONE/VILANTEROL 200/25MCG 14 PUFFS/INHALER INH SCH (09:00)
[2022-11-04] MEDS: GABAPENTIN 800 MG TAB PO SCH ×3 (09:00→21:57)
[2022-11-04] MEDS: PANTOprazole 40 MG TAB PO SCH (09:00)
[2022-11-04] MEDS: INSULIN ASPART PER UNIT SC SCH ×4 (09:05→22:13)
[2022-11-04 09:08] LABS: Estimated Average Glucose 209 mg/dl; Hemoglobin A1C 8.9 % (4.5-5.6)
[2022-11-04] MEDS: LANTUS PER UNIT CHARGE SQ SCH ×2 (09:12→22:14)
[2022-11-04 09:29] LABS: Basophils # (auto) 0.02 K/uL (0-0.2); Basophils % (auto) 0.3 %; Eosinophils # (auto) 0.21 K/uL (0-0.50); Eosinophils % (auto) 3.6 %; Hematocrit (blood only) 34.2 % (37.0-47.0); Hemoglobin 11.6 g/dl (12.0-16.0); Immature Granulocytes # (auto) 0.02 K/uL (0.01-0.20); Immature Granulocytes % (auto) 0.3 %; Lymphocytes # (auto) 2.07 K/uL (1.2-3.4); Lymphocytes % (auto) 35.4 %; Mean Corpuscular Hemoglobin 31.4 pg (25.0-34.0); Mean Corpuscular Hgb Conc 33.9 g/dL (32.0-36.0); Mean Corpuscular Volume 92.7 fL (80.0-100.0); Mean Platelet Volume 9.8 fL (9.4-12.4); Monocytes # (auto) 0.83 K/uL (0.11-0.59); Monocytes % (auto) 14.2 %; Neutrophils % (auto) 46.2 %; Platelet Count 246 K/uL (130-400); RDW Coefficient of Variation 14.3 % (11.5-14.5); RDW Standard Deviation 47.9 fL (36.4-46.3); Red Blood Count 3.69 M/uL (4.20-5.40); White Blood Count 5.85 K/ul (4.8-10.8)
[2022-11-04] MEDS: oxyCODONE HCL IR 5 MG TAB (IMMEDIATE RELEASE) PO PRN (18:51)
[2022-11-04] MEDS: DULoxetine HCL 60 MG CAP PO SCH (21:57)
[2022-11-04] MEDS: MONTELUKAST SODIUM 10 MG TABLET PO SCH (21:57)
[2022-11-04] MEDS: traZODone HCL 100 MG TAB PO SCH (21:58)
[2022-11-04] MEDS: DOCUSATE SODIUM/SENNA 50/8.6MG TAB PO SCH (21:58)
[2022-11-05] MEDS ORDERED: oxyCODONE HCL IR 5 MG TAB (IMMEDIATE RELEASE) PO STA (01:08)
[2022-11-05] MEDS: oxyCODONE HCL IR 5 MG TAB (IMMEDIATE RELEASE) PO PRN (01:29)
[2022-11-05] MEDS: ENOXAPARIN INJ 30 MG/0.3 ML SYR SQ SCH (05:56)
[2022-11-05] MEDS: HYDROmorphone INJ 0.5 MG/0.5 ML SYR IV PRN ×5 (05:57→20:38)
[2022-11-05 07:17] LABS: Basophils # (auto) 0.02 K/uL (0-0.2); Basophils % (auto) 0.4 %; Eosinophils # (auto) 0.23 K/uL (0-0.50); Hematocrit (blood only) 34.3 % (37.0-47.0); Hemoglobin 11.6 g/dl (12.0-16.0); Immature Granulocytes # (auto) 0.02 K/uL (0.01-0.20); Immature Granulocytes % (auto) 0.4 %; Lymphocytes # (auto) 1.74 K/uL (1.2-3.4); Lymphocytes % (auto) 30.6 %; Mean Corpuscular Hemoglobin 31.3 pg (25.0-34.0); Mean Corpuscular Hgb Conc 33.8 g/dL (32.0-36.0); Mean Corpuscular Volume 92.5 fL (80.0-100.0); Monocytes # (auto) 0.74 K/uL (0.11-0.59); Neutrophils # (auto) 2.94 K/uL (1.40-6.50); Neutrophils % (auto) 51.6 %; Platelet Count 262 K/uL (130-400); RDW Coefficient of Variation 14.1 % (11.5-14.5); RDW Standard Deviation 47.4 fL (36.4-46.3); Red Blood Count 3.71 M/uL (4.20-5.40); White Blood Count 5.69 K/ul (4.8-10.8)
--- NOTE | 2022-11-05 07:28 | Hospitalist Progress Note ---
Date of Service November 05, 2022 Assessment & Plan (1) Weakness: Plan: 52-year-old woman with long-term history of uncontrolled diabetes, lumbar stenosis,, and recent lumbar surgery who presented to the ED following 2 controlled falls. Now admitted for management of back pain, ambulatory dysfunction. Fall/LE weakness -No focal weakness. No LOC. No head trauma. No dizziness/presyncope. -Recently discharged from [facility]hab. Patient still requiring ambulatory support at time of discharge. - Continue home gabapentin 800 mg daily - PT/OT ordered - CBC/CMP unremarkable - Ortho recommending continue rehabilitation and pain control --- Continue Dilaudid and Oxycodone, avoid Tylenol --- Oxycodone adjusted to 10 mg q8 hours w/ Dilaudid 0.5 mg q3 hours for breakthrough pain --- Goal is to discontinue IV pain medication prior to discharge to rehab DM2/acute hyperglycemia -Chronic poorly controlled diabetes. - Takes Trulicity 4.5 mg q. weekly, Lantus 35 units twice daily, NovoLog 8 units 3 times daily. - Blood glucose 278 on admission. --- HbA1c 8.9, carb consistent diet inpatient, continue sliding scale per protocol Seizure * Home Keppra 1000 mg 3 times daily Anxiety/depression * Duloxetine 60 mg nightly; Buspirone 5 mg p.o. 4 times daily GERD * Famotidine 40 mg twice daily; pantoprazole 20 mg every morning Constipation * MiraLAX 17 g twice daily; Senokot-S nightly * As needed Milk of magnesia, Maalox Insomnia * Trazodone 100 mg nightly Code: Full code Dispo: Med-Surg FEN/GI: Carb consistent DVT Prophylaxis: Lovenox 30 mg q24h PT/OT: Yes Consults: Orthopedic surgery CM: Insurance requiring peer to peer for return to [facility] (2) Fall: (3) History of lumbar surgery: (4) Acute hyperglycemia: (5) Seizure: Admission and Anticipated Discharge Date Admission Date: November 02, 2022 Supervising Physician Co-Signing Physician Notes 52 year-old female with pertinent history of T2DM, seizures, anxiety/depression, and lumbar stenosis s/p lumbar decompression fusion presenting with ambulatory dysfunction, weakness, and pain. Pain regimen of oxycodone 10 mg Q8HR (as patient was receiving in rehab) with 0.5 mg hydromorphone Q3HR prn. Will monitor closely as patient working with physical therapy. Patient seen and examined with resident, agree with documented history, physical, and plan. Gualberto Bertrand expressed significant concern regarding her pain medications this morning. States that she is constantly in 10/10 pain localized to her surgical site (low back). Patient believes that she would benefit from more medication. Current regimen and options for adjustment were thoroughly discussed. Patient expressed understanding and agreement with plan. She denies any fevers or chills. She is not experiencing any chest pain, dyspnea, abdominal pain, or bowel/bladder changes. Notified by nursing about patient's pain concerns multiple times throughout shift. Confirmed that patient is receiving medications promptly as prescribed. Presented to patient's room x 3 to discuss patient's concerns. Each visit, patient expressed understanding and agreement with current pain management plan. Review of Systems Review of Systems: As per HPI Physical Exam Physical Exam: General: Acute distress and anxiety HEENT: NCAT CV: Non-labored, CTAB Respiratory: RRR, normal S1/S2 no MRG Abdomen: Soft, no TTP, + bowel sounds Extremities: Capillary refill <2 sec. 2+ dp equal bilaterally. No pedal edema. Strength and sensation symmetric bilaterally. No deep calf pain. Back: Incision clean and dry, healing well, right paraspinal hypertonicity, no ecchymosis or erythema Neuro: Alert and oriented x3. Results & Data Results & Data ([facility]) Vital Signs (Past 12 Hours) Vital Signs Temp Pulse Resp BP Pulse Ox O2 Del Method 11/05/22 07:23 36.5 C 88 16 119/76 97 Room Air 11/04/22 20:49 36.9 C 88 18 115/73 96 Room Air Resident Activity Tracking Resident Involvement: Resident Care Provided Care Provided: Adult Hospital Medicine (1) Fall Encounter type: initial encounter Qualified Code(s): W19.XXXA - Unspecified fall, initial encounter
[2022-11-05 07:47] LABS: Albumin Level 3.4 gm/dl (3.4-5.0); Bilirubin,Total 0.7 mg/dl (0.2-1.0); Calcium 9.7 mg/dl (8.5-10.1); Magnesium 1.8 mg/dl (1.7-2.4); Potassium 4.1 mmol/L (3.5-5.1)
[2022-11-05 07:53] LABS: Albumin Globulin Ratio 1.1 (0.9-2); BUN Creatinine Ratio 23.9 (10-20); Est GFR (African American) 115.5 ml/min; Est GFR (Non-African American) 99.7 ml/min; Globulin 3.2 gm/dl (2.5-4.0); Phosphorus 3.9 mg/dl (2.5-4.9); Total Protein 6.6 gm/dl (6.0-8.3)
[2022-11-05] MEDS: levETIRAcetam 500 MG TAB PO SCH ×2 (09:52→20:31)
[2022-11-05] MEDS: POLYETHYLENE (MIRALAX) 17 GM PACK PO SCH ×2 (09:52→20:30)
[2022-11-05] MEDS: ASPIRIN 81 MG ECTAB PO SCH (09:53)
[2022-11-05] MEDS: GABAPENTIN 800 MG TAB PO SCH ×3 (09:53→20:31)
[2022-11-05] MEDS: busPIRone 5 MG TAB PO SCH ×4 (09:53→20:32)
[2022-11-05] MEDS: FAMOTIDINE 40 MG TABLET PO SCH ×2 (09:53→20:31)
[2022-11-05] MEDS: PANTOprazole 40 MG TAB PO SCH (09:53)
[2022-11-05] MEDS: LANTUS PER UNIT CHARGE SQ SCH ×2 (09:54→22:19)
[2022-11-05] MEDS: INSULIN ASPART PER UNIT SC SCH ×4 (09:55→22:19)
[2022-11-05] MEDS: FLUTICASONE/VILANTEROL 200/25MCG 14 PUFFS/INHALER INH SCH (09:56)
[2022-11-05] MEDS: oxyCODONE HCL IR 5 MG TAB (IMMEDIATE RELEASE) PO SCH ×2 (13:23→23:02)
[2022-11-05] MEDS: MONTELUKAST SODIUM 10 MG TABLET PO SCH (20:31)
[2022-11-05] MEDS: DOCUSATE SODIUM/SENNA 50/8.6MG TAB PO SCH (20:32)
[2022-11-05] MEDS: DULoxetine HCL 60 MG CAP PO SCH (20:32)
[2022-11-05] MEDS: traZODone HCL 100 MG TAB PO SCH (20:32)
[2022-11-06] MEDS: ENOXAPARIN INJ 30 MG/0.3 ML SYR SQ SCH (05:09)
[2022-11-06] MEDS: oxyCODONE HCL IR 5 MG TAB (IMMEDIATE RELEASE) PO SCH ×2 (05:09→12:25)
[2022-11-06 06:06] LABS: Basophils # (auto) 0.03 K/uL (0-0.2); Basophils % (auto) 0.5 %; Eosinophils # (auto) 0.21 K/uL (0-0.50); Eosinophils % (auto) 3.7 %; Hematocrit (blood only) 35.6 % (37.0-47.0); Hemoglobin 11.8 g/dl (12.0-16.0); Immature Granulocytes # (auto) 0.02 K/uL (0.01-0.20); Immature Granulocytes % (auto) 0.4 %; Lymphocytes # (auto) 2.08 K/uL (1.2-3.4); Lymphocytes % (auto) 36.8 %; Mean Corpuscular Hemoglobin 30.9 pg (25.0-34.0); Mean Corpuscular Hgb Conc 33.1 g/dL (32.0-36.0); Mean Corpuscular Volume 93.2 fL (80.0-100.0); Monocytes # (auto) 0.66 K/uL (0.11-0.59); Monocytes % (auto) 11.7 %; Neutrophils # (auto) 2.65 K/uL (1.40-6.50); Neutrophils % (auto) 46.9 %; Platelet Count 285 K/uL (130-400); RDW Coefficient of Variation 14.2 % (11.5-14.5); RDW Standard Deviation 48.1 fL (36.4-46.3); Red Blood Count 3.82 M/uL (4.20-5.40); White Blood Count 5.65 K/ul (4.8-10.8)
[2022-11-06 06:39] LABS: Albumin Level 3.5 gm/dl (3.4-5.0); Bilirubin,Total 0.6 mg/dl (0.2-1.0); Calcium 9.2 mg/dl (8.5-10.1); Magnesium 1.8 mg/dl (1.7-2.4); Potassium 3.7 mmol/L (3.5-5.1)
[2022-11-06] MEDS: HYDROmorphone INJ 0.5 MG/0.5 ML SYR IV PRN ×5 (06:43→22:04)
[2022-11-06 06:45] LABS: Albumin Globulin Ratio 1.1 (0.9-2); BUN Creatinine Ratio 27.3 (10-20); Creatinine Clr Calc Pharmacy 118.7 ml/min; Est GFR (African American) 116.1 ml/min; Est GFR (Non-African American) 100.1 ml/min; Globulin 3.2 gm/dl (2.5-4.0); Phosphorus 3.8 mg/dl (2.5-4.9); Total Protein 6.7 gm/dl (6.0-8.3)
--- NOTE | 2022-11-06 07:55 | Hospitalist Progress Note ---
Date of Service November 06, 2022 Assessment & Plan (1) Weakness: Plan: 52-year-old woman with long-term history of uncontrolled diabetes, lumbar stenosis,, and recent lumbar surgery who presented to the ED following 2 controlled falls. Now admitted for management of back pain, ambulatory dysfunction. Fall/LE weakness -No focal weakness. No LOC. No head trauma. No dizziness/presyncope. -Recently discharged from [facility]hab. Patient still requiring ambulatory support at time of discharge. - Continue home gabapentin 800 mg daily - PT/OT ordered - CBC/CMP unremarkable - Ortho recommending continue rehabilitation and pain control --- Oxycodone adjusted to 10 mg q6h hours w/ Dilaudid 0.5 mg q3 hour (to be discontinued, patient aware) --- Goal is to discontinue IV pain medication prior to discharge to rehab DM2/acute hyperglycemia - Chronic poorly controlled diabetes. - Takes Trulicity 4.5 mg q. weekly, Lantus 35 units twice daily, NovoLog 8 units 3 times daily. - Blood glucose 278 on admission. --- HbA1c 8.9, carb consistent diet inpatient, continue sliding scale per protocol Seizure * Home Keppra 1000 mg 3 times daily Anxiety/depression * Duloxetine 60 mg nightly; Buspirone 5 mg p.o. 4 times daily GERD * Famotidine 40 mg twice daily; pantoprazole 20 mg every morning Constipation * MiraLAX 17 g twice daily; Senokot-S nightly * As needed Milk of magnesia, Maalox Insomnia * Trazodone 100 mg nightly Code: Full code Dispo: Med-Surg FEN/GI: Carb consistent DVT Prophylaxis: Lovenox 30 mg q24h PT/OT: Yes Consults: Orthopedic surgery CM: Insurance requiring peer to peer for return to [facility] (2) Fall: (3) History of lumbar surgery: (4) Acute hyperglycemia: (5) Seizure: Admission and Anticipated Discharge Date Admission Date: November 02, 2022 Supervising Physician Co-Signing Physician Notes 52 year-old female with pertinent history of T2DM, seizures, anxiety/depression, and lumbar stenosis s/p lumbar decompression fusion presenting with ambulatory dysfunction, weakness, and pain. Patient endorses some improvement of pain, will trial regimen of oxycodone 10 mg Q6HR prn with discontinuation of IV hydromorphone. Surgical site remains clean/dry/intact. Continue monitoring closely as patient working with physical therapy, discussed the importance of engagement to improve conditioning. Patient examined independently of resident, agree with documented history, physical, and plan. Subjective Elza expressed that she feels like she has experienced some improvement, she states her pain is more localized to her low back today, rather than her legs. While she states it is still a bad day for her back, her legs are much improved. Patient expresses a desire to get back to rehab as soon as possible, stating that she wants to recover so that she can see her son. Pain management regimen was discussed in depth with patient, patient expressed understanding that adequate oral pain control is required prior to discharge and she is willing to continue making steps forward regarding her pain management. Review of Systems Review of Systems: As per HPI Physical Exam Physical Exam: General: Acute distress and anxiety HEENT: NCAT CV: Non-labored, CTAB Respiratory: RRR, normal S1/S2 no MRG Abdomen: Soft, no TTP, + bowel sounds Extremities: Capillary refill <2 sec. 2+ dp equal bilaterally. No pedal edema. Strength and sensation symmetric bilaterally. No deep calf pain. Back: Incision clean and dry, healing well, right paraspinal hypertonicity, no ecchymosis or erythema Neuro: Alert and oriented x3. Results & Data Results & Data ([facility]) Vital Signs (Past 12 Hours) Vital Signs Temp Pulse Resp BP Pulse Ox O2 Del Method 11/06/22 07:14 36.8 C 81 16 111/73 96 Room Air 11/05/22 22:21 36.9 C 86 18 112/74 97 Room Air (1) Fall Encounter type: initial encounter Qualified Code(s): W19.XXXA - Unspecified fall, initial encounter
[2022-11-06] MEDS: POLYETHYLENE (MIRALAX) 17 GM PACK PO SCH ×2 (08:54→22:17)
[2022-11-06] MEDS: PANTOprazole 40 MG TAB PO SCH (08:55)
[2022-11-06] MEDS: ASPIRIN 81 MG ECTAB PO SCH (08:55)
[2022-11-06] MEDS: busPIRone 5 MG TAB PO SCH ×4 (08:56→20:25)
[2022-11-06] MEDS: FLUTICASONE/VILANTEROL 200/25MCG 14 PUFFS/INHALER INH SCH (08:56)
[2022-11-06] MEDS: FAMOTIDINE 40 MG TABLET PO SCH ×2 (08:56→20:25)
[2022-11-06] MEDS: levETIRAcetam 500 MG TAB PO SCH ×2 (08:56→20:25)
[2022-11-06] MEDS: GABAPENTIN 800 MG TAB PO SCH ×3 (08:56→20:25)
[2022-11-06] MEDS: INSULIN ASPART PER UNIT SC SCH ×4 (08:58→22:02)
[2022-11-06] MEDS: LANTUS PER UNIT CHARGE SQ SCH ×2 (08:59→22:03)
[2022-11-06] MEDS: oxyCODONE HCL IR 5 MG TAB (IMMEDIATE RELEASE) PO PRN (20:24)
[2022-11-06] MEDS: DULoxetine HCL 60 MG CAP PO SCH (20:25)
[2022-11-06] MEDS: MONTELUKAST SODIUM 10 MG TABLET PO SCH (20:25)
[2022-11-06] MEDS: DOCUSATE SODIUM/SENNA 50/8.6MG TAB PO SCH (20:25)
[2022-11-06] MEDS: traZODone HCL 100 MG TAB PO SCH (20:25)
[2022-11-07] MEDS: ENOXAPARIN INJ 30 MG/0.3 ML SYR SQ SCH (05:18)
[2022-11-07] MEDS: oxyCODONE HCL IR 5 MG TAB (IMMEDIATE RELEASE) PO PRN ×4 (05:18→23:03)
[2022-11-07 07:21] LABS: Basophils # (auto) 0.02 K/uL (0-0.2); Basophils % (auto) 0.4 %; Eosinophils # (auto) 0.23 K/uL (0-0.50); Eosinophils % (auto) 4.4 %; Hematocrit (blood only) 34.1 % (37.0-47.0); Hemoglobin 11.6 g/dl (12.0-16.0); Immature Granulocytes # (auto) 0.01 K/uL (0.01-0.20); Immature Granulocytes % (auto) 0.2 %; Lymphocytes # (auto) 1.71 K/uL (1.2-3.4); Lymphocytes % (auto) 32.4 %; Mean Corpuscular Hemoglobin 31.5 pg (25.0-34.0); Mean Corpuscular Volume 92.7 fL (80.0-100.0); Mean Platelet Volume 9.9 fL (9.4-12.4); Monocytes # (auto) 0.57 K/uL (0.11-0.59); Monocytes % (auto) 10.8 %; Neutrophils # (auto) 2.74 K/uL (1.40-6.50); Neutrophils % (auto) 51.8 %; Platelet Count 280 K/uL (130-400); RDW Coefficient of Variation 14.1 % (11.5-14.5); RDW Standard Deviation 47.8 fL (36.4-46.3); Red Blood Count 3.68 M/uL (4.20-5.40); White Blood Count 5.28 K/ul (4.8-10.8)
[2022-11-07 07:40] LABS: Albumin Level 3.4 gm/dl (3.4-5.0); Bilirubin,Total 0.5 mg/dl (0.2-1.0); Calcium 9.2 mg/dl (8.5-10.1); Magnesium 1.8 mg/dl (1.7-2.4); Potassium 3.6 mmol/L (3.5-5.1)
[2022-11-07 07:46] LABS: Albumin Globulin Ratio 1.1 (0.9-2); BUN Creatinine Ratio 30.8 (10-20); Creatinine Clr Calc Pharmacy 120.6 ml/min; Est GFR (African American) 116.7 ml/min; Est GFR (Non-African American) 100.7 ml/min; Globulin 3.1 gm/dl (2.5-4.0); Phosphorus 3.5 mg/dl (2.5-4.9); Total Protein 6.5 gm/dl (6.0-8.3)
[2022-11-07] MEDS: ASPIRIN 81 MG ECTAB PO SCH (08:03)
[2022-11-07] MEDS: PANTOprazole 40 MG TAB PO SCH (08:03)
[2022-11-07] MEDS: levETIRAcetam 500 MG TAB PO SCH ×2 (08:04→20:10)
[2022-11-07] MEDS: FAMOTIDINE 40 MG TABLET PO SCH ×2 (08:04→20:10)
[2022-11-07] MEDS: busPIRone 5 MG TAB PO SCH ×4 (08:04→20:10)
[2022-11-07] MEDS: GABAPENTIN 800 MG TAB PO SCH ×3 (08:04→20:10)
[2022-11-07] MEDS: FLUTICASONE/VILANTEROL 200/25MCG 14 PUFFS/INHALER INH SCH (08:14)
[2022-11-07] MEDS: POLYETHYLENE (MIRALAX) 17 GM PACK PO SCH ×2 (08:15→21:16)
[2022-11-07] MEDS: CYCLOBENZAPRINE HCL 10 MG TAB PO PRN (08:20)
[2022-11-07] MEDS: INSULIN ASPART PER UNIT SC SCH ×4 (09:13→20:43)
[2022-11-07] MEDS: LANTUS PER UNIT CHARGE SQ SCH ×2 (09:13→20:44)
--- NOTE | 2022-11-07 15:12 | Hospitalist Progress Note ---
Date of Service November 07, 2022 Assessment & Plan (1) Weakness: Plan: 52-year-old woman with long-term history of uncontrolled diabetes, lumbar stenosis,, and recent lumbar surgery who presented to the ED following 2 controlled falls. Now admitted for management of back pain, ambulatory dysfunction. Fall/LE weakness -No focal weakness. No LOC. No head trauma. No dizziness/presyncope. -[facility]. Patient still requiring ambulatory support at time of discharge. - Continue home gabapentin 800 mg daily - PT/OT ordered - CBC/CMP unremarkable - Ortho recommending continue rehabilitation and pain control --- Oxycodone adjusted to 10 mg q6h hours --- Discontinued Dilaudid --- Pt has refused to participate in PT, continued to encourage DM2/acute hyperglycemia - Chronic poorly controlled diabetes. - Takes Trulicity 4.5 mg q. weekly, Lantus 35 units twice daily, NovoLog 8 units 3 times daily. - Blood glucose 278 on admission. --- HbA1c 8.9, carb consistent diet inpatient, continue sliding scale per protocol Seizure * Home Keppra 1000 mg 3 times daily Anxiety/depression * Duloxetine 60 mg nightly; Buspirone 5 mg p.o. 4 times daily GERD * Famotidine 40 mg twice daily; pantoprazole 20 mg every morning Constipation * MiraLAX 17 g twice daily; Senokot-S nightly * As needed Milk of magnesia, Maalox Insomnia * Trazodone 100 mg nightly Code: Full code Dispo: Med-Surg FEN/GI: Carb consistent DVT Prophylaxis: Lovenox 30 mg q24h PT/OT: Yes Consults: Orthopedic surgery CM: Insurance requiring peer to peer for return to [facility] (2) Fall: (3) History of lumbar surgery: (4) Acute hyperglycemia: (5) Seizure: Admission and Anticipated Discharge Date Admission Date: November 02, 2022 Supervising Physician Co-Signing Physician Notes 52 year-old female with pertinent history of T2DM, seizures, anxiety/depression, and lumbar stenosis s/p lumbar decompression fusion presenting with ambulatory dysfunction, weakness, and pain. Current pain regimen includes oxycodone 10 mg every 6 as needed. Encouraged patient continued work and engagement with physical therapy; physical therapy recommends rehab. Patient examined independently of resident, agree with documented history, physical, and plan. Subjective Elza expressed dis-satisfaction with pain management regimen today and strongly requests additional doses of Dilaudid. Patient has expressed understanding of the risk of continuing Dilaudid and had agreed to discontinue IV pain management yesterday. Multiple attempts have been made to engage patient in de-escalating her pain medication. Patient noted 7/10 pain this morning, which is improved from previous 9/10, but now states that she is too upset to continue discussing her care. Discussed with patient the importance of participating in physical therapy sessions, in an effort to improve conditioning so that she can succeed at rehabilitation following her admission. Discussed patient pain management plan with her nurse in depth. Called patient's sister and father at her request. Discussed patient's care with her sister. Sister was agreeable to call and encourage the patient regarding her pain management and engagement in physical therapy. Review of Systems Review of Systems: As per HPI Physical Exam Physical Exam: General: Acute distress and anxiety HEENT: NCAT CV: Non-labored, CTAB Respiratory: RRR, normal S1/S2 no MRG Abdomen: Soft, no TTP, + bowel sounds Extremities: Capillary refill <2 sec. 2+ dp equal bilaterally. No pedal edema. Strength and sensation symmetric bilaterally. No deep calf pain. Back: Incision clean and dry, healing well, right paraspinal hypertonicity, no ecchymosis or erythema Neuro: Alert and oriented x3. Results & Data Results & Data ([facility]) Vital Signs (Past 12 Hours) Vital Signs Resp BP Pulse Ox O2 Del Method 11/07/22 07:25 18 121/71 96 Room Air Resident Activity Tracking Resident Involvement: Resident Care Provided Care Provided: Adult Hospital Medicine (1) Fall Encounter type: initial encounter Qualified Code(s): W19.XXXA - Unspecified fall, initial encounter
[2022-11-07] MEDS: DOCUSATE SODIUM/SENNA 50/8.6MG TAB PO SCH (20:10)
[2022-11-07] MEDS: MONTELUKAST SODIUM 10 MG TABLET PO SCH (20:10)
[2022-11-07] MEDS: traZODone HCL 100 MG TAB PO SCH (20:10)
[2022-11-07] MEDS: DULoxetine HCL 60 MG CAP PO SCH (20:10)
[2022-11-07] MEDS: ACETAMINOPHEN 325 MG TAB PO PRN (23:04)
[2022-11-08] MEDS: CYCLOBENZAPRINE HCL 10 MG TAB PO PRN (00:14)
[2022-11-08] MEDS: oxyCODONE HCL IR 5 MG TAB (IMMEDIATE RELEASE) PO PRN ×3 (05:25→16:24)
[2022-11-08] MEDS: ACETAMINOPHEN 325 MG TAB PO PRN ×2 (05:25→10:49)
[2022-11-08] MEDS: ENOXAPARIN INJ 30 MG/0.3 ML SYR SQ SCH (05:25)
--- NOTE | 2022-11-08 07:26 | Hospitalist Progress Note ---
Date of Service November 08, 2022 Assessment & Plan (1) Weakness: Plan: 52-year-old woman with long-term history of uncontrolled diabetes, lumbar stenosis,, and recent lumbar surgery who presented to the ED following 2 controlled falls. Now admitted for management of back pain, ambulatory dysfunction. Fall/LE weakness -No focal weakness. No LOC. No head trauma. No dizziness/presyncope. -Recently discharged from [facility]. Patient still requiring ambulatory support at time of discharge. - Continue home gabapentin 800 mg daily - PT/OT ordered - CBC/CMP unremarkable - Ortho recommending continue rehabilitation and pain control --- Oxycodone adjusted to 10 mg q6h hours, pain improving --- Discontinued Dilaudid --- Tylenol added PRN --- Pt participated in PT today, continued recommendations for rehab --- Contacted CM regarding auth DM2/acute hyperglycemia - Chronic poorly controlled diabetes. - Takes Trulicity 4.5 mg q. weekly, Lantus 35 units twice daily, NovoLog 8 units 3 times daily. - Blood glucose 278 on admission. --- HbA1c 8.9, carb consistent diet inpatient, continue sliding scale per protocol Seizure * Home Keppra 1000 mg 3 times daily Anxiety/depression * Duloxetine 60 mg nightly; Buspirone 5 mg p.o. 4 times daily GERD * Famotidine 40 mg twice daily; pantoprazole 20 mg every morning Constipation * MiraLAX 17 g twice daily; Senokot-S nightly * As needed Milk of magnesia, Maalox Insomnia * Trazodone 100 mg nightly Code: Full code Dispo: Med-Surg FEN/GI: Carb consistent DVT Prophylaxis: Lovenox 30 mg q24h PT/OT: Yes Consults: Orthopedic surgery CM: Insurance requiring peer to peer for return to [facility] (2) Fall: (3) History of lumbar surgery: (4) Acute hyperglycemia: (5) Seizure: Admission and Anticipated Discharge Date Admission Date: November 02, 2022 Supervising Physician Co-Signing Physician Notes I personally examined the patient and verified all brennan points of history and exam, discussed case, and agree with decision making with Dr Summers wants to go home. discussed safety awareness. vitals noted nad heent nc at mmm breathing unlabored no accessory muscles good effort skin no rashes no pallor or icterus weakness - wants to go home. has good safety awareness now. lives all on 1 floor. has home PT/OT/nursing set up. plans seem reasonable - ok for home as per her plans, close outpt follow up Subjective 11/08: Patient expressed today that her pain is much improved, she notes that she is at 6/10 pain today and this is the best she has been. She states that she is ready to start moving forward with physical therapy. She is not experiencing any leg pain or weakness, she notes that she is feeling more confident and less uncomfortable with ambulation. Patient denies chest pain, dyspnea, pleuritic pain, abdominal pain, or bowel/bladder changes. Review of Systems Review of Systems: As per HPI Physical Exam Physical Exam: General: Acute distress and anxiety HEENT: NCAT CV: Non-labored, CTAB Respiratory: RRR, normal S1/S2 no MRG Abdomen: Soft, no TTP, + bowel sounds Extremities: Capillary refill <2 sec. 2+ dp equal bilaterally. No pedal edema. Strength and sensation symmetric bilaterally. No deep calf pain. Back: Incision clean and dry, healing well, right paraspinal hypertonicity, no ecchymosis or erythema Neuro: Alert and oriented x3. Results & Data Results & Data ([facility]) Vital Signs (Past 12 Hours) Vital Signs Temp Pulse Resp BP Pulse Ox O2 Del Method 11/07/22 21:20 36.8 C 82 18 106/68 96 Room Air Resident Activity Tracking Resident Involvement: Resident Care Provided Care Provided: Adult Hospital Medicine (1) Fall Encounter type: initial encounter Qualified Code(s): W19.XXXA - Unspecified fall, initial encounter
[2022-11-08 07:54] LABS: Hematocrit (blood only) 31.4 % (37.0-47.0); Hemoglobin 10.6 g/dl (12.0-16.0); Mean Corpuscular Hemoglobin 31.3 pg (25.0-34.0); Mean Corpuscular Hgb Conc 33.8 g/dL (32.0-36.0); Mean Corpuscular Volume 92.6 fL (80.0-100.0); Mean Platelet Volume 10.4 fL (9.4-12.4); Platelet Count 270 K/uL (130-400); RDW Coefficient of Variation 14.1 % (11.5-14.5); RDW Standard Deviation 47.6 fL (36.4-46.3); Red Blood Count 3.39 M/uL (4.20-5.40); White Blood Count 5.96 K/ul (4.8-10.8)
[2022-11-08] MEDS: levETIRAcetam 500 MG TAB PO SCH (08:07)
[2022-11-08] MEDS: ASPIRIN 81 MG ECTAB PO SCH (08:07)
[2022-11-08] MEDS: GABAPENTIN 800 MG TAB PO SCH ×2 (08:07→12:55)
[2022-11-08] MEDS: FAMOTIDINE 40 MG TABLET PO SCH (08:07)
[2022-11-08] MEDS: PANTOprazole 40 MG TAB PO SCH (08:07)
[2022-11-08] MEDS: FLUTICASONE/VILANTEROL 200/25MCG 14 PUFFS/INHALER INH SCH (08:08)
[2022-11-08] MEDS: busPIRone 5 MG TAB PO SCH ×2 (08:08→12:55)
[2022-11-08] MEDS: POLYETHYLENE (MIRALAX) 17 GM PACK PO SCH (08:09)
[2022-11-08 08:44] LABS: Calcium 9.3 mg/dl (8.5-10.1); Potassium 3.8 mmol/L (3.5-5.1)
[2022-11-08 08:50] LABS: BUN Creatinine Ratio 33.3 (10-20); Creatinine Clr Calc Pharmacy 130.6 ml/min; Est GFR (African American) 119.8 ml/min; Est GFR (Non-African American) 103.3 ml/min
[2022-11-08] MEDS: INSULIN ASPART PER UNIT SC SCH ×2 (09:00→12:55)
[2022-11-08] MEDS: LANTUS PER UNIT CHARGE SQ SCH (09:00)
[2022-11-08] MEDS ORDERED: ACETAMINOPHEN 325 MG TAB PO SCH (15:00)
--- NOTE | 2022-11-08 15:44 | Discharge Summary ---
Date of Service November 08, 2022 Admission HPI Per Admitting Provider Elza is a 52-year-old female with DM2, cirrhosis, dyslipidemia, and lumbar spinal stenosis, recently discharged following lumbar surgery, who presents today with a complaint of severe back pain after 2 controlled falls. She was discharged from our hospital 10 days ago after the aforementioned surgery. She was discharged from the hospital to [facility], where she left for home today. 4 hours after being home, she had a controlled fall. She had a second controlled fall and was brought to the hospital for evaluation. Since the controlled falls, she has had increasing pain in the lower back. Mostly on the right. Patient states that her legs felt weak today, she thinks this is why she fell. There has been no fever, no cough or congestion or chest pain. She has not had urinary complaints. The patient states that she has not taken any pain medication today since leaving rehab. She describes her pain as severe right now. In the ED, labs were notable for a glucose of 278, and an alkaline phosphatase of 194. CT lumbar spine showed no acute bony injury. She received IV morphine 6 mg for pain and hospitalist was consulted regarding admission for further management. On admission, patient corroborated HPI. She denies headache, nausea, vomiting, dizziness, loss of consciousness, numbness, tingling. Admission Exam Per Admitting Provider General: Well-appearing, alert, interactive, and in no acute distress. HEENT: Normocephalic, atraumatic. EOM intact. Good conjugate gaze. Nares patent. Moist mucosal membranes. Neck: Supple. No lymphadenopathy. Normal ROM. CV: Regular rate and rhythm. Normal S1 and S2. No murmurs gallops or rubs. Respiratory: Normal respiratory effort. Lungs clear to auscultation bilaterally. Abdomen: Soft, nondistended abdomen. No bruits heard on auscultation. No tenderness to deep palpation. No guarding or rebound. Extremities: Capillary refill <2 sec. 2+ dp equal bilaterally. No pedal edema. Neuro: Alert and oriented x3. Skin: Clean, dry, and intact. No rashes, bruises, or erythema. Principal Diagnosis Weakness Low Back Pain Fall Discharge Exam General: Acute distress and anxiety HEENT: NCAT CV: Non-labored, CTAB Respiratory: RRR, normal S1/S2 no MRG Abdomen: Soft, no TTP, + bowel sounds Extremities: Capillary refill <2 sec. 2+ dp equal bilaterally. No pedal edema. Strength and sensation symmetric bilaterally. No deep calf pain. Back: Incision clean and dry, healing well, right paraspinal hypertonicity, no ecchymosis or erythema Neuro: Alert and oriented x3. Discharge Data Allergies Allergy/AdvReac Type Severity Reaction Status Date / Time acetaminophen AdvReac Severe LIVER Verified 11/02/22 21:13 COMPLICATIONS cephalexin AdvReac Severe Vomiting Verified 11/02/22 21:13 levofloxacin [From Levaquin] AdvReac Intermediate Vomiting Verified 11/02/22 21:13 Consultations 11/02/22 20:23 ED Decision to Admit Stat 11/02/22 23:51 Consult Orthopedic Surgery Routine Ordered Studies 11/02/22 17:56 CT lumbar spine wo con Stat Hospital Course (1) Weakness: 52-year-old woman with long-term history of uncontrolled diabetes, lumbar stenosis,, and recent lumbar surgery who presented to the ED following 2 controlled falls. Now admitted for management of back pain, ambulatory dysfunction. Fall/LE weakness -No focal weakness. No LOC. No head trauma. No dizziness/presyncope. -Recently discharged from [facility]. Patient still requiring ambulatory support at time of discharge. - Continue home gabapentin 800 mg daily - PT/OT ordered - CBC/CMP unremarkable - Ortho recommending continue rehabilitation and pain control --- Rx sent for Oxycodone 10 mg q6h hours for 7 days --- Tylenol 650 mg PO TID --- Pt participated in PT today, pt. has established home health/PT/OT --- Contacted CM regarding medical equipment (walker, bedside camode, shower chair) DM2/acute hyperglycemia - Chronic poorly controlled diabetes. - Takes Trulicity 4.5 mg q. weekly, Lantus 35 units twice daily, NovoLog 8 units 3 times daily. - Blood glucose 278 on admission. --- HbA1c 8.9, carb consistent diet inpatient, return to home regimen upon discharge Seizure * Home Keppra 1000 mg 3 times daily Anxiety/depression * Duloxetine 60 mg nightly; Buspirone 5 mg p.o. 4 times daily GERD * Famotidine 40 mg twice daily; pantoprazole 20 mg every morning Constipation * MiraLAX 17 g twice daily; Senokot-S nightly * As needed Milk of magnesia, Maalox Insomnia * Trazodone 100 mg nightly Code: Full code Dispo: Home FEN/GI: Carb consistent PT/OT: Yes (scheduled for home) Consults: Orthopedic surgery CM: Assistance with medical supplies (2) Fall: (3) History of lumbar surgery: (4) Acute hyperglycemia: (5) Seizure: Total Time Total Time Spent Total Time Spent (In Minutes): <30 Discharge Plan Discharge Items Patient Disposition: Home - Home Health Services Reason For Visit: BACK PAIN Discharge Diagnosis: Weakness Back Pain Fall Condition on Discharge: Fair Activity: Per Instructions section Non-emergency contact: Primary Care Provider Call non-emergency contact if: you have any medication questions, your pain is worsening and your wound has increased drainage Follow-up/Referrals: Aneudy Pérez MD [Primary Care Provider] - 11/16/22 3:25 pm Diet: Carb Consistent or DM2 Addtl Attending Provider Instructions: You were admitted to the hospital for pain management after a fall at home. We discussed your recent back surgery and treatment at rehabilitation and how there was still some lingering weakness whenever you arrived home from rehab. After your fall, you received imaging and an evaluation from orthopedics which assured us that there was no injury and everything from your recent surgery is intact. Together, we worked to control your pain during your stay. Ultimately, we received the most benefit from Oxycodone 10 mg every 6 hours and Tylenol 650 mg three times a day. Since this was most successful, I recommend continuing this plan at home for 10 days. Prescriptions will be sent to your pharmacy. You stated that you have home health, physical therapy, and occupational therapy established for when you go home. We discussed safety strategies for when you return home. I encourage you to use your walker regularly. Over the next few weeks to months you will continue to regain your strength and work back towards normal. If you feel as thought your recovery is not progressing, I encourage you to discuss this with your PCP. You requested orderes for a shower chair, bedside toilet, and wheelchair/seat, orders were placed through case management and you should receive them through your medical supplier. A discharge summary will be sent to your primary care physician to ensure continuity of care. Please bring this discharge summary with you to your next office appointment so that your provider can review it at that time. Follow-up appointments: - Make a follow-up appointment with your PCP within the next week. It is very important that you follow up with them shortly after discharge from the hospital. We have requested a follow-up appointment with your primary care physician within one week of discharge. Please call their office if you do not hear from them. Medications: - Rx sent for Oxycodone 10 mg q 6 hours for 10 days - Rx sent for Tylenol 650 mg TID Contact your Primary Care Provider if you experience: - Weakness - Difficulty following your treatment plan or taking medications Call 911 or go to the emergency department if you experience: - Sudden, severe abdominal pain or nausea/vomiting - Severe chest pain, or chest pain that radiates (moves) to your jaw or arm - Sudden, severe shortness of breath or difficulty breathing It was a pleasure to be a part of your care, Dr. Larissa Summers Pending Studies at Discharge: No Stand-Alone Forms: [employer], Smoking Cessation Medications and DC Order Prescriptions: New acetaminophen 325 mg Tablet 650 mg PO TID 14 Days Qty: 84 0RF oxycodone 5 mg Tablet 10 mg PO Q6 7 Days Qty: 56 0RF Continued cyclobenzaprine 10 mg Tablet 10 mg PO BID PRN (Reason: Muscle Spasm) Qty: 0 albuterol sulfate [Ventolin HFA] 90 mcg/actuation Hfa Aerosol Inhaler 2 puff INHALATION Q4H PRN (Reason: Shortness Of Breath Or Wheezing) Qty: 0 Trulicity 4.5 mg/0.5 mL pen injector 4.5 mg SUBCUT WK Qty: 2 1RF Rx Instructions: TUESDAYS-- montelukast [Singulair] 10 mg tablet 10 mg PO HS fluticasone propion-salmeterol [AirDuo RespiClick] 232-14 mcg/actuation aerosol powdr breath activated 2 inh inhalation BID PRN (Reason: Shortness Of Breath) ibuprofen 800 mg tablet 800 mg PO TID PRN (Reason: Pain) promethazine 25 mg tablet 25 mg PO Q6H PRN (Reason: Nausea) aspirin 81 mg Tablet,Delayed Release (Dr/Ec) 81 mg PO QAM cyclosporine [Restasis] 0.05 % Dropperette 2 drp OPHTHALMIC (EYE) Q12H duloxetine 60 mg capsule,delayed release(DR/EC) 60 mg PO HS buspirone 5 mg tablet 5 mg PO QID Trulicity 1.5 mg/0.5 mL pen injector 1.5 mg SUBCUT UD nystatin [Nyamyc] 100,000 unit/gram powder 1 applic TOPICAL UD sennosides-docusate sodium [Senokot-S] 8.6-50 mg Tablet 2 tab PO HS Qty: 0 0RF insulin aspart U-100 [Novolog FlexPen U-100 Insulin] 100 unit/mL (3 mL) insulin pen 8 unit SC TID Qty: 15 0RF Rx Instructions: plus sliding scale insulin glargine [Lantus Solostar U-100 Insulin] 100 unit/mL (3 mL) insulin pen 35 unit subcut BID Qty: 1 0RF levetiracetam 1,000 mg tablet 1,000 mg PO BID diclofenac sodium 1 % Gel 4 g TOPICAL QID PRN (Reason: Pain) albuterol sulfate 2.5 mg /3 mL (0.083 %) solution for nebulization 2.5 mg inhalation Q6 PRN (Reason: Wheezing) famotidine 40 mg tablet 40 mg PO BID pantoprazole 20 mg tablet,delayed release (DR/EC) 20 mg PO QAM lidocaine 5 % adhesive patch,medicated 1 patch transdermal DAILY PRN (Reason: Pain) fluticasone propionate [Flonase Allergy Relief] 50 mcg/actuation spray,suspension 1 spray INTRANASAL DAILY PRN (Reason: Congestion) trazodone 100 mg tablet 100 mg PO HS polyethylene glycol 3350 [Miralax] 17 gram/dose Powder 17 g PO BID gabapentin 800 mg tablet 800 mg PO TID ondansetron 4 mg tablet,disintegrating 4 mg PO Q6H PRN (Reason: nausea and vomiting) Qty: 12 0RF Discontinued oxycodone 5 mg Tablet 5 - 10 mg PO Q4H PRN (Reason: pain) Qty: 0 0RF Rx Instructions: severe pain 10 mg moderate pain 5 mg Discharge Orders: Discharge Order (Routine); Ordered 11/08/22 Ordered By: Larissa Leonardo/Other Patient Handouts: Falls Prevent Use Cane Walker Admission Data Admit Date/Time: 11/02/22 21:57 Attending Provider: Mike Canchola Admit Provider: Toñito Diamond Primary Care Provider: Aneudy Pérez Other Providers: Shavonne Montenegro ; Kyaw Sharpe ; [facility] ; Alicja Alberto. Other Interventions: Discharge Summary Assessment (RN) Last Done: 11/08/22 16:09 Supervising Physician Co-Signing Physician Notes I personally examined the patient and verified all brennan points of history and exam, discussed case, and agree with decision making with Dr Summers wants to go home. discussed safety awareness. vitals noted nad heent nc at mmm breathing unlabored no accessory muscles good effort skin no rashes no pallor or icterus weakness - wants to go home. has good safety awareness now. lives all on 1 floor. has home PT/OT/nursing set up. plans seem reasonable - ok for home as per her plans, close outpt follow up
--- NOTE | 2022-11-08 19:04 | Billing Data ---
Date of Service November 08, 2022 Coding Level of Care Code HOSP INP/OBS DISCH 30 MIN/LESS
--- NOTE | 2022-11-08 19:05 | Billing Data ---
Date of Service November 08, 2022 Coding Level of Care Code HOSP INP/OBS DISCH 30 MIN/LESS
== END 2022-11-08 16:42 | disposition home health service (06) ==
LOC: ED 16:43 → SUATTDRO 21:57 → INTOOBSV 21:57 → 3W 21:57

== ENCOUNTER 2022-11-19 19:23 | Observation (INO) ==
[2022-11-19 20:41] LABS: Basophils # (auto) 0.04 K/uL (0-0.2); Basophils % (auto) 0.6 %; Eosinophils # (auto) 0.16 K/uL (0-0.50); Eosinophils % (auto) 2.5 %; Hematocrit (blood only) 42.3 % (37.0-47.0); Hemoglobin 14.2 g/dl (12.0-16.0); Immature Granulocytes # (auto) 0.01 K/uL (0.01-0.20); Immature Granulocytes % (auto) 0.2 %; Lymphocytes # (auto) 1.89 K/uL (1.2-3.4); Lymphocytes % (auto) 29.4 %; Mean Corpuscular Hemoglobin 30.4 pg (25.0-34.0); Mean Corpuscular Hgb Conc 33.6 g/dL (32.0-36.0); Mean Corpuscular Volume 90.6 fL (80.0-100.0); Mean Platelet Volume 11.4 fL (9.4-12.4); Monocytes # (auto) 0.34 K/uL (0.11-0.59); Monocytes % (auto) 5.3 %; Neutrophils # (auto) 3.98 K/uL (1.40-6.50); Platelet Count 187 K/uL (130-400); RDW Coefficient of Variation 13.7 % (11.5-14.5); RDW Standard Deviation 45.1 fL (36.4-46.3); Red Blood Count 4.67 M/uL (4.20-5.40); White Blood Count 6.42 K/ul (4.8-10.8)
[2022-11-19 20:57] LABS: Albumin Level 4.2 gm/dl (3.4-5.0); BUN Creatinine Ratio 11.5 (10-20); Bilirubin,Total 0.4 mg/dl (0.2-1.0); Calcium 10.4 mg/dl (8.5-10.1); Creatinine Clr Calc Pharmacy 125.5 ml/min; Est GFR (African American) 119.1 ml/min; Est GFR (Non-African American) 102.8 ml/min; Globulin 4.3 gm/dl (2.5-4.0); Potassium 3.9 mmol/L (3.5-5.1); Total Protein 8.5 gm/dl (6.0-8.3)
[2022-11-19] MEDS ORDERED: dexAMETHasone**PF** 10 MG/ML VIAL IV ONE (21:37)
[2022-11-19] MEDS ORDERED: ONDANSETRON INJ 2 MG/ML 2 ML VIAL IV STA (21:37)
--- NOTE | 2022-11-19 21:47 | Emergency Department Note ---
History of Present Illness General Chief complaint: Back Injury/Pain Stated complaint: back pain Time Seen by Provider: 11/19/22 21:30 History of Present Illness Maximum Pain Intensity: 9 This 52-year-old female with poorly controlled diabetes who had spinal surgery last month by Dr. Sharpe presents ER complaining of worsening back pain with right leg weakness for the past few days with difficulty with ambulation. Patient denies loss of bowel or bladder control, saddle anesthesia, fever, chills, IV drug abuse. Patient states she is in too much pain to go home and is requesting admission. Home Medications Medication Instructions Recorded Confirmed Type cyclobenzaprine 10 mg tablet 10 mg PO BID PRN Muscle Spasm ##0 11/18/17 11/02/22 History albuterol sulfate 90 mcg/actuation 2 puff inhalation Q4H PRN 02/10/18 11/02/22 History aerosol inhaler (Ventolin HFA) Shortness Of Breath Or Wheezing ##0 ibuprofen 800 mg tablet 800 mg PO TID PRN Pain 10/24/19 11/02/22 History promethazine 25 mg tablet 25 mg PO Q6H PRN Nausea 10/24/19 11/02/22 History fluticasone 232 mcg-salmeterol 14 2 inh inhalation BID PRN Shortness 08/21/20 11/02/22 History mcg/actuation breath activated Of Breath powdr (AirDuo RespiClick) montelukast 10 mg tablet 10 mg PO HS 09/01/20 11/02/22 History (Singulair) aspirin 81 mg tablet,delayed 81 mg PO QAM 10/28/20 11/02/22 History release cyclosporine 0.05 % eye drops in a 2 drp ophthalmic (eye) Q12H 04/17/21 11/02/22 History dropperette (Restasis) diclofenac sodium 1 % topical gel 4 g topical QID PRN Pain 07/20/21 11/02/22 History albuterol sulfate 2.5 mg/3 mL 2.5 mg inhalation Q6 PRN Wheezing 01/19/22 11/02/22 History (0.083 %) solution for nebulization famotidine 40 mg tablet 40 mg PO BID 01/19/22 11/02/22 History fluticasone propionate 50 1 spray intranasal DAILY PRN 01/19/22 11/02/22 History mcg/actuation nasal Congestion spray,suspension (Flonase Allergy Relief) lidocaine 5 % topical patch 1 patch transdermal DAILY PRN Pain 01/19/22 11/02/22 History pantoprazole 20 mg tablet,delayed 20 mg PO QAM 01/19/22 11/02/22 History release polyethylene glycol 3350 17 17 g PO BID 01/29/22 11/02/22 History gram/dose oral powder (Miralax) trazodone 100 mg tablet 100 mg PO HS 01/29/22 11/02/22 History duloxetine 60 mg capsule,delayed 60 mg PO HS 03/12/22 11/02/22 History release gabapentin 800 mg tablet 800 mg PO TID 04/05/22 11/02/22 History buspirone 5 mg tablet 5 mg PO QID 07/30/22 11/02/22 History ondansetron 4 mg disintegrating 4 mg PO Q6H PRN nausea and 08/11/22 11/02/22 Rx tablet vomiting #12 tabs dulaglutide 4.5 mg/0.5 mL 4.5 mg (0.5 mL) subcut WK #2 mL 10/06/22 11/02/22 Rx subcutaneous pen injector (Trulicity) dulaglutide 1.5 mg/0.5 mL 1.5 mg subcut UD 10/12/22 11/02/22 History subcutaneous pen injector (Trulicity) nystatin 100,000 unit/gram topical 1 applic topical UD 10/12/22 11/02/22 History powder (Nyamyc) insulin aspart U-100 100 unit/mL 8 unit (0.08 mL) SC TID #15 mL 10/23/22 11/02/22 Rx (3 mL) subcutaneous pen (Novolog FlexPen U-100 Insulin aspart) insulin glargine 100 unit/mL (3 35 unit (0.35 mL) subcut BID #1 mL 10/23/22 11/02/22 Rx mL) subcutaneous pen (Lantus Solostar U-100 Insulin) sennosides 8.6 mg-docusate sodium 2 tab PO HS #0 tabs 10/23/22 11/02/22 Rx 50 mg tablet (Senokot-S) levetiracetam 1,000 mg tablet 1,000 mg PO BID 11/02/22 11/02/22 History acetaminophen 325 mg tablet 650 mg PO TID 14 days #84 tabs 11/08/22 Rx oxycodone 5 mg tablet 10 mg PO QID PRN pain #30 tabs 11/08/22 Rx Allergies Allergy/AdvReac Type Severity Reaction Status Date / Time acetaminophen AdvReac Severe LIVER Verified 11/02/22 21:13 COMPLICATIONS cephalexin AdvReac Severe Vomiting Verified 11/02/22 21:13 levofloxacin [From Levaquin] AdvReac Intermediate Vomiting Verified 11/02/22 21:13 Past Med/Surg History Medical History (Updated 11/20/22 @ 01:24 by Niya Colindres PA-C) Anxiety Brain cyst Chronic low back pain with left-sided sciatica Chronic obstructive pulmonary disease Dental abscess Depression Emphysema of lung Hypertension Hypokalemia Hypomagnesemia Hyponatremia Insulin dependent diabetes mellitus Narcotic abuse Ongoing, documented by PCP since 2013 Neurogenic claudication due to lumbar spinal stenosis Obesity Periapical abscess with facial involvement Pulmonary embolism Reports was anticoagulation x 60 days, not on chronic anticoagulation Syncope Thrombocytopenia Tinea corporis Tinea cruris Uncontrolled type 2 diabetes mellitus Surgical History History of laparoscopic cholecystectomy Hx of oral surgery (02/15/20) Acute right submandibular, submental space infection with floor of mouth infection caused by infected lower teeth. Dr. Rios 02/15/20 S/P dilation and curettage S/P laparoscopic hernia repair S/P laparoscopic procedure ovarian cyst surgery Family History Mother , 73 Heart disease Cancer small cell ca lung caused at 73 Father Skin cancer Brother No problems noted. Sister No problems noted. Grandmother (Maternal) , 48 Heart disease T2DM (type 2 diabetes mellitus) Grandmother (Paternal) , 83 Heart disease Kidney disease Uncle T2DM (type 2 diabetes mellitus) Other Diabetes Obesity Denies family history of Ovarian cancer Breast cancer Colorectal cancer Uterine cancer Social History Smoking Status: Former smoker Tobacco Type: Cigarettes Cigarettes Per Day: 5; Second Hand Exposure: Yes; Hx Alcohol Use: No Hx Substance Use: No Preferred Language: Romanian Communication Ability: Effective Visual Impairment: No Limitations Hearing Ability: Normal Crystal Syrup Maker Required: No Beliefs That Will Affect Care: None marital status: Current Living Situation: Alone Current Living Situation Comment: Lives with son (15yo) current occupational status: unemployed 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 How many Children do You have: 1 Feels Safe at Home: Yes Assistive Devices: Walker Review of Systems A total of 10 systems reviewed and were otherwise negative Physical Exam Vital Signs Vital Signs - 24 hr 11/19/22 19:31 11/19/22 22:00 Temperature 36.7 C Temperature Source Oral Pulse Rate 99 H 93 H Pulse Rate from SpO2 Sensor 94 H Respiratory Rate 24 18 Respiratory Effort / Characteristics Non-Labored Spontaneous Respiratory Depth Normal Respiratory Pattern Regular Blood Pressure 110/81 Blood Pressure Mean 90 Blood Pressure Position Sitting Pulse Oximetry 91 99 Oxygen Delivery Method Room Air Room Air Sepsis Recent Fever Within 48 Hours No Sepsis New/Unexplained Change in Mental Status N/A Sepsis Action Taken by Nursing No Action Required VITALS: Vitals are noted on the nurse's note and reviewed by myself. Vital sig ns stable. GENERAL: White female, in no acute distress, nondiaphoretic, well-developed well-nourished. SKIN: The skin was without rashes, erythema, edema, or bruising. There is no tenting of the skin. Capillary reflex less than 2 seconds. HEAD: Normocephalic atraumatic. EARS: External auditory canals clear, EYES: Pupils equal round and reactive to light and accommodation. Conjunctivae without injection, sclerae without icterus. Extraocular movements intact. NOSE: Patent, turbinates without inflammation or discharge. MOUTH: Mucous membranes moist. Pharynx without erythema or exudate. Uvula midline. Airway patent. Tongue does not deviate. NECK: Supple without nuchal rigidity. No lymphadenopathy. No thyromegaly. Cervical spine is nontender. No JVD. HEART: Regular rate and rhythm LUNGS: Clear to auscultation bilaterally without wheezes, rales or rhonchi. No retractions or accessory muscle use. ABDOMEN: Positive bowel sounds x 4. Normal tympanic percussion. Soft, nontender, without masses or organomegaly. Rothman sign negative. No guarding or rebound tenderness. No CVA tenderness MUSCULOSKELETAL: No muscle atrophy, erythema, or edema noted. No thoracic tende rness. Lumbar tenderness. Patient has difficulty raising her right leg. Patient is able to somewhat lift her left leg which is unchanged per patient. Sensation is intact. NEURO: Patient was alert and oriented to person place and time. Normal sensation to light and sharp touch. No focal neurological deficits. Course Administered Medications Discontinued Medications Dexamethasone Sodium Phosphate (DexamethasonePf 10 Mg/Ml Vial) 10 mg IV NOW ONE Stop: 11/19/22 21:38 Last Admin: 11/19/22 22:16 Dose: 10 mg Documented By: Lorazepam (Lorazepam 2 Mg/1 Ml Vial) 1 mg IV NOW STA Stop: 11/19/22 22:39 Last Admin: 11/19/22 22:51 Dose: 1 mg Documented By: Ondansetron HCl (Ondansetron Inj 2 Mg/Ml 2 Ml Vial) 4 mg IV NOW STA Stop: 11/19/22 21:38 Last Admin: 11/19/22 22:16 Dose: 4 mg Documented By: Medical Decision Making Medical Records Attestation: I reviewed the patient's medical records. Home Medications Current Medication List: was personally reviewed by me Laboratory Data Attestation: I reviewed the patient's lab results. 11/19/22 20:06 11/19/22 20:06 Lab Results 11/19/22 11/19/22 11/19/22 Range/Units 20:06 20:06 23:50 WBC 6.42 (4.8-10.8) K/ul RBC 4.67 (4.20-5.40) M/uL Hgb 14.2 (12.0-16.0) g/dl Hct 42.3 (37.0-47.0) % MCV 90.6 (80.0-100.0) fL MCH 30.4 (25.0-34.0) pg MCHC 33.6 (32.0-36.0) g/dL RDW Std Deviation 45.1 (36.4-46.3) fL RDW Coeff of Kelli 13.7 (11.5-14.5) % Plt Count 187 (130-400) K/uL MPV 11.4 (9.4-12.4) fL Immature Gran % (Auto) 0.2 % Neut % (Auto) 62.0 % Lymph % (Auto) 29.4 % Tyler % (Auto) 5.3 % Eos % (Auto) 2.5 % Baso % (Auto) 0.6 % Neut # (Auto) 3.98 (1.40-6.50) K/uL Lymph # (Auto) 1.89 (1.2-3.4) K/uL Tyler # (Auto) 0.34 (0.11-0.59) K/uL Eos # (Auto) 0.16 (0-0.50) K/uL Baso # (Auto) 0.04 (0-0.2) K/uL Immature Gran # (Auto) 0.01 (0.01-0.20) K/uL Sodium 138 (136-145) mmol/L Potassium 3.9 (3.5-5.1) mmol/L Chloride 101 (98-107) mmol/L Carbon Dioxide 29 (21-32) mmol/L Anion Gap 8 (3-11) BUN 7 (6-23) mg/dl Creatinine 0.61 (0.6-1.2) mg/dl Est Cr Clr Drug Dosing 125.5 ml/min Est GFR ( Amer) 119.1 ml/min Est GFR (Non-Af Amer) 102.8 ml/min BUN/Creatinine Ratio 11.5 (10-20) Glucose 292 H (70-99(Fasting)) mg/dl Calcium 10.4 H (8.5-10.1) mg/dl Total Bilirubin 0.4 (0.2-1.0) mg/dl AST 28 (13-39) U/L ALT 25 (7-52) U/L Alkaline Phosphatase 208 H (34-104) U/L Total Protein 8.5 H (6.0-8.3) gm/dl Albumin 4.2 (3.4-5.0) gm/dl Globulin 4.3 H (2.5-4.0) gm/dl Albumin/Globulin Ratio 1.0 (0.9-2) Urine Color Yellow Urine Appearance Clear (Clear) Urine pH 6.5 (4.5-7.5) Ur Specific [place] 1.007 (1.000-1.030) Urine Protein Negative (Negative) Urine Glucose (UA) Negative (Negative) Urine Ketones Negative (Negative) Urine Blood Negative (Negative) Urine Nitrite Negative (Negative) Urine Bilirubin Negative (Negative) Urine Urobilinogen Negative (Negative) Ur Leukocyte Esterase Negative (Negative) SARS-CoV-2, RNA, NAAT (NEGATIVE) 11/19/22 Range/Units 23:50 WBC (4.8-10.8) K/ul RBC (4.20-5.40) M/uL Hgb (12.0-16.0) g/dl Hct (37.0-47.0) % MCV (80.0-100.0) fL MCH (25.0-34.0) pg MCHC (32.0-36.0) g/dL RDW Std Deviation (36.4-46.3) fL RDW Coeff of Kelli (11.5-14.5) % Plt Count (130-400) K/uL MPV (9.4-12.4) fL Immature Gran % (Auto) % Neut % (Auto) % Lymph % (Auto) % Tyler % (Auto) % Eos % (Auto) % Baso % (Auto) % Neut # (Auto) (1.40-6.50) K/uL Lymph # (Auto) (1.2-3.4) K/uL Tyler # (Auto) (0.11-0.59) K/uL Eos # (Auto) (0-0.50) K/uL Baso # (Auto) (0-0.2) K/uL Immature Gran # (Auto) (0.01-0.20) K/uL Sodium (136-145) mmol/L Potassium (3.5-5.1) mmol/L Chloride (98-107) mmol/L Carbon Dioxide (21-32) mmol/L Anion Gap (3-11) BUN (6-23) mg/dl Creatinine (0.6-1.2) mg/dl Est Cr Clr Drug Dosing ml/min Est GFR ( Amer) ml/min Est GFR (Non-Af Amer) ml/min BUN/Creatinine Ratio (10-20) Glucose (70-99(Fasting)) mg/dl Calcium (8.5-10.1) mg/dl Total Bilirubin (0.2-1.0) mg/dl AST (13-39) U/L ALT (7-52) U/L Alkaline Phosphatase (34-104) U/L Total Protein (6.0-8.3) gm/dl Albumin (3.4-5.0) gm/dl Globulin (2.5-4.0) gm/dl Albumin/Globulin Ratio (0.9-2) Urine Color Urine Appearance (Clear) Urine pH (4.5-7.5) Ur Specific [place] (1.000-1.030) Urine Protein (Negative) Urine Glucose (UA) (Negative) Urine Ketones (Negative) Urine Blood (Negative) Urine Nitrite (Negative) Urine Bilirubin (Negative) Urine Urobilinogen (Negative) Ur Leukocyte Esterase (Negative) SARS-CoV-2, RNA, NAAT NEGATIVE (NEGATIVE) Imaging Data Attestation: I personally reviewed and interpreted this imaging study as follows: MDM Narrative Prior records/ancillary studies reviewed. Triage Nursing notes reviewed. Additional history obtained from nursing. The patient's history was concerning for back pain. Differential diagnosis: Etiologies such as musculoskeletal, disc herniation, fracture, aortic disease, metastatic disease, cord compression, discitis, infection, renal colic, gastrointestinal, acute exacerbation of chronic back pain, sciatica, cauda equina, as well as others were entertained. Physical findings: As above. ER treatment provided: Zofran, Decadron, IV fluids On reassessment the patient felt better. Diagnostics interpreted by me: The labs Independently Interpreted by myself revealed hyperglycemia without DKA. No worrisome leukocytosis Imaging studies: Patient: MARCIO FERNANDEZ (Female) : 66 Status: ER Date: 11/19/22 23:44 Room #: B11B History: PT STATES UNABLE TO WALK. LOW BACK PAIN. HAD SURGERY TO LOW BACK RECENTLY. PAIN DOWN BOTH LEGS BUT LEFT IS WORSE. FALLEN 2 TIMES SINCE LAST HERE. ISSUES SINCE TUESDAY. NO HX OF CANCER. PT WOULD NOT LET REPEAT SCANS. BEST SCANS POSSIBLE. PROPS RAN FOR MOTION. Slices: [id number] Priors: Tech: Tami Andrade @ [id number] A Exams: MRI L SPINE Contrast: Accession Numbers: [id number] Referring Physician: JUNIOR SALAZAR Preliminary Findings Only See Final Report For Complete Findings MRI L SPINE : There is a 1.1 x 2.1 x 5.7 cm fluid collection of the laminectomy sites of L3 and L4. An additional 2.5 x 3.0 x 6.8 cm fluid collection of the subcutaneous fat of the back at the level of L3 through L5 is noted. These could represent seromas, hematomas or abscesses. Stable fluid of the sacrum, this is not significant changed since 03/12/2022 and likely benign. Radiologist: Patti Zuleta MD Consultation: A consultation was placed with Dr Montenegro. The case was discussed and diagnostics were reviewed. Patient will be admitted to her service. This appears to be consistent with lumbar radiculopathy. Patient complained of acute onset of weakness so advanced imaging was ordered. Reflexes are intact. She was just discharged from rehab facility. Patient states she is too weak to go home. Medicine is consulted and will evaluate for admission. Consult was placed with orthopedic spine with no response. I do not believe the patient is septic. I do not believe she has an epidural abscess. Labs and diagnostics were independently interpreted by myself. Radiology read the MRI. By the evaluation outlined above emergent etiologies such as fracture, aortic disease, metastatic disease, renal colic, gastrointestinal, cord compression, cauda equina, as well as others were deemed relatively unlikely. The pt informed about the findings as listed above. All questions were answered and pleased with the treatment. The chart was completed utilizing [employer] Speech voice recognition software. Grammatical errors, random word insertions, pronoun errors, and incomplete sentences are an occassional consequence of this system due to software limitations, ambient noise, and hardware issues. Any formal questions or concerns about the content, text, or information contained within the body of this dictation should be directly addressed to the physician machine assistant for clarification. Impression & Plan Acute lumbar radiculopathy Discharge Plan Visit Data Chief Complaint: Back Injury/Pain Stated Complaint: back pain ED Provider: Junior Salazar ED Midlevel Provider: Niya Colindres Discharge Problem: Acute lumbar radiculopathy Patient Disposition: Admitted As Inpatient Condition: Good Forms Stand Alone Forms: [email or web address] Prescriptions Prescriptions: No Action cyclobenzaprine 10 mg Tablet 10 mg PO BID PRN (Reason: Muscle Spasm) Qty: 0 albuterol sulfate [Ventolin HFA] 90 mcg/actuation Hfa Aerosol Inhaler 2 puff INHALATION Q4H PRN (Reason: Shortness Of Breath Or Wheezing) Qty: 0 Trulicity 4.5 mg/0.5 mL pen injector 4.5 mg SUBCUT WK Qty: 2 1RF Rx Instructions: TUESDAYS-- montelukast [Singulair] 10 mg tablet 10 mg PO HS fluticasone propion-salmeterol [AirDuo RespiClick] 232-14 mcg/actuation aerosol powdr breath activated 2 inh inhalation BID PRN (Reason: Shortness Of Breath) ibuprofen 800 mg tablet 800 mg PO TID PRN (Reason: Pain) promethazine 25 mg tablet 25 mg PO Q6H PRN (Reason: Nausea) aspirin 81 mg Tablet,Delayed Release (Dr/Ec) 81 mg PO QAM cyclosporine [Restasis] 0.05 % Dropperette 2 drp OPHTHALMIC (EYE) Q12H duloxetine 60 mg capsule,delayed release(DR/EC) 60 mg PO HS buspirone 5 mg tablet 5 mg PO QID Trulicity 1.5 mg/0.5 mL pen injector 1.5 mg SUBCUT UD nystatin [Nyamyc] 100,000 unit/gram powder 1 applic TOPICAL UD sennosides-docusate sodium [Senokot-S] 8.6-50 mg Tablet 2 tab PO HS Qty: 0 0RF insulin aspart U-100 [Novolog FlexPen U-100 Insulin] 100 unit/mL (3 mL) insulin pen 8 unit SC TID Qty: 15 0RF Rx Instructions: plus sliding scale insulin glargine [Lantus Solostar U-100 Insulin] 100 unit/mL (3 mL) insulin pen 35 unit subcut BID Qty: 1 0RF levetiracetam 1,000 mg tablet 1,000 mg PO BID acetaminophen 325 mg Tablet 650 mg PO TID 14 Days Qty: 84 0RF oxycodone 5 mg tablet 10 mg PO QID PRN (Reason: pain) Qty: 30 0RF Rx Instructions: 1 tab for moderate pain, 2 for severe pain diclofenac sodium 1 % Gel 4 g TOPICAL QID PRN (Reason: Pain) albuterol sulfate 2.5 mg /3 mL (0.083 %) solution for nebulization 2.5 mg inhalation Q6 PRN (Reason: Wheezing) famotidine 40 mg tablet 40 mg PO BID pantoprazole 20 mg tablet,delayed release (DR/EC) 20 mg PO QAM lidocaine 5 % adhesive patch,medicated 1 patch transdermal DAILY PRN (Reason: Pain) fluticasone propionate [Flonase Allergy Relief] 50 mcg/actuation spray,suspension 1 spray INTRANASAL DAILY PRN (Reason: Congestion) trazodone 100 mg tablet 100 mg PO HS polyethylene glycol 3350 [Miralax] 17 gram/dose Powder 17 g PO BID gabapentin 800 mg tablet 800 mg PO TID ondansetron 4 mg tablet,disintegrating 4 mg PO Q6H PRN (Reason: nausea and vomiting) Qty: 12 0RF Referrals Referrals: Aneudy Pérez MD [Primary Care Provider] -
[2022-11-19] MEDS ORDERED: LORazepam 2 MG/1 ML VIAL IV STA (22:38)
[2022-11-20 00:16] LABS: Appearance Urine Clear (Clear); Bilirubin Urine Negative (Negative); Blood Urine Negative (Negative); Color Urine Yellow; Glucose Urine UA Negative (Negative); Ketones Urine Negative (Negative); Leukocyte Esterase Urine Negative (Negative); Nitrite Urine Negative (Negative); Protein Urine Negative (Negative); Specific Gravity Urine 1.007 (1.000-1.030); Urobilinogen Urine Negative (Negative); pH Urine 6.5 (4.5-7.5)
--- NOTE | 2022-11-20 02:06 | History & Physical Report ---
Date of Service November 20, 2022 Assessment & Plan (1) Acute lumbar radiculopathy: Plan: 52-year-old female with longstanding history of lumbar pain in setting of severe spinal stenosis status post decompression and fusion L3-L5 performed by Dr. Sharpe on 10/20/2022. Patient was discharged to rehab on 10/23/2022 until 11/02 when she returned to the hospital with worsening pain and a fall. She was discharged home again on 11/08. Returns today with worsening back pain and left- sided leg pain and weakness. MRI above with fluid collections described at the surgical site. Possibly seromas, hematomas versus abscesses. Patient is afebrile, hemodynamically stable, nontoxic in appearance. Not on any blood thinners, stable H/H. Suspect seromas. She is neurovascularly intact. Observation to medical floor Oxycodone 5 mg p.o. 3 times daily as needed Dilaudid 0.25 mg IV every 6 hours Continue Tylenol 650 mg p.o. 3 times daily Continue cyclobenzaprine 10 mg p.o. twice daily as needed Continue duloxetine 60 mg p.o. nightly Continue gabapentin 800 mg p.o. 3 times daily Continue ibuprofen 600 mg p.o. 3 times daily Continue Lidoderm patch Heating pad as needed PT/OT evaluation Orthopedic consultation appreciated (2) Dyslipidemia: (3) Seizure disorder: Plan: Chronic. Stable. Continue Keppra 1000 mg p.o. twice daily (4) Hypertension: (5) Depression: Plan: Patient with depression and anxiety Continue buspirone 5 mg p.o. 4 times daily Continue duloxetine 60 mg p.o. nightly (6) Chronic obstructive pulmonary disease: Plan: Stable. No cough, shortness of breath or wheeze Continue albuterol 2 puffs every 4 hours as needed Continue fluticasone/salmeterol or formulary equivalent Continue singular 10 mg p.o. nightly (7) Uncontrolled type 2 diabetes mellitus: Plan: Blood sugar elevated to 300 today per patient history. 292 currently. Patient did receive a dose of dexamethasone in the ER Lantus 35 units twice daily Insulin sliding scale Goal blood sugar [id number] Consider pharmacy glycemic management consultation if patient's blood sugars are difficult to control FENHep-Lock, electrolytes within normal limits, heart healthy/consistent carb diet as tolerated ProphylaxisLovenox 40 mg daily Codefull per discussion with patient Dispositionobservation to medical History of Present Illness Chief Complaint: Acute on chronic back pain Primary Care Provider: Aneudy Pérez MD Elza Vick is a 52-year-old female with history of poorly controlled diabetes, cirrhosis, hypertension and seizure disorder presenting with acute on chronic back pain. Patient with severe spinal stenosis. She was admitted to [facility] from 10/12/2022 - 10/23/2022 for severe back pain. She had an L3-L5 decompression and fusion performed on 10/20/[address] Sharpe. The surgery went well with no complications. She was discharged to [facility] on 10/23/2022 and stayed there through 11/02/2022. Per report, patient did well and participated in therapy. She was discharged home on 11/02/2022 and promptly returned to the hospital due to uncontrolled pain and falls at home. She stayed at [facility] until she was discharged home on 11/08/2022. Patient reports she has overall been doing fairly well until the last several days. She presents today with worsening left-sided leg pain which is "unbearable" as well as subjective weakness. Patient with ongoing back pain as well as right leg pain which is near her baseline. She reports that she had 3 controlled falls in the last 3 days which she believes is secondary to weakness in her left lower extremity. She denies fever, chills, acute trauma to her back. No additional complaints such as chest pain, cough, shortness of breath, abdominal pain, nausea, vomiting, diarrhea or constipation. She reports that she is eating well and moving her bowels without difficulty. No urinary complaints either. In the ER, she is afebrile, hemodynamically stable. MRI performed with results below. ER course: Dexamethasone, Ativan, Zofran Allergies Allergy/AdvReac Type Severity Reaction Status Date / Time acetaminophen AdvReac Severe LIVER Verified 11/20/22 01:48 COMPLICATIONS cephalexin AdvReac Severe Vomiting Verified 11/20/22 01:48 levofloxacin [From Levaquin] AdvReac Intermediate Vomiting Verified 11/20/22 01:48 Home Medications Medication Instructions Recorded Confirmed Type cyclobenzaprine 10 mg tablet 10 mg PO BID PRN Muscle Spasm ##0 11/18/17 11/02/22 History albuterol sulfate 90 mcg/actuation 2 puff inhalation Q4H PRN 02/10/18 11/02/22 History aerosol inhaler (Ventolin HFA) Shortness Of Breath Or Wheezing ##0 ibuprofen 800 mg tablet 800 mg PO TID PRN Pain 10/24/19 11/02/22 History promethazine 25 mg tablet 25 mg PO Q6H PRN Nausea 10/24/19 11/02/22 History fluticasone 232 mcg-salmeterol 14 2 inh inhalation BID PRN Shortness 08/21/20 11/02/22 History mcg/actuation breath activated Of Breath powdr (AirDuo RespiClick) montelukast 10 mg tablet 10 mg PO HS 09/01/20 11/02/22 History (Singulair) aspirin 81 mg tablet,delayed 81 mg PO QAM 10/28/20 11/02/22 History release cyclosporine 0.05 % eye drops in a 2 drp ophthalmic (eye) Q12H 04/17/21 11/02/22 History dropperette (Restasis) diclofenac sodium 1 % topical gel 4 g topical QID PRN Pain 07/20/21 11/02/22 History albuterol sulfate 2.5 mg/3 mL 2.5 mg inhalation Q6 PRN Wheezing 01/19/22 11/02/22 History (0.083 %) solution for nebulization famotidine 40 mg tablet 40 mg PO BID 01/19/22 11/02/22 History fluticasone propionate 50 1 spray intranasal DAILY PRN 01/19/22 11/02/22 History mcg/actuation nasal Congestion spray,suspension (Flonase Allergy Relief) lidocaine 5 % topical patch 1 patch transdermal DAILY PRN Pain 01/19/22 11/02/22 History pantoprazole 20 mg tablet,delayed 20 mg PO QAM 01/19/22 11/02/22 History release polyethylene glycol 3350 17 17 g PO BID 01/29/22 11/02/22 History gram/dose oral powder (Miralax) trazodone 100 mg tablet 100 mg PO HS 01/29/22 11/02/22 History duloxetine 60 mg capsule,delayed 60 mg PO HS 03/12/22 11/02/22 History release gabapentin 800 mg tablet 800 mg PO TID 04/05/22 11/02/22 History buspirone 5 mg tablet 5 mg PO QID 07/30/22 11/02/22 History ondansetron 4 mg disintegrating 4 mg PO Q6H PRN nausea and 08/11/22 11/02/22 Rx tablet vomiting #12 tabs dulaglutide 4.5 mg/0.5 mL 4.5 mg (0.5 mL) subcut WK #2 mL 10/06/22 11/02/22 Rx subcutaneous pen injector (Trulicity) dulaglutide 1.5 mg/0.5 mL 1.5 mg subcut UD 10/12/22 11/02/22 History subcutaneous pen injector (Trulicity) nystatin 100,000 unit/gram topical 1 applic topical UD 10/12/22 11/02/22 History powder (Nyamyc) insulin aspart U-100 100 unit/mL 8 unit (0.08 mL) SC TID #15 mL 10/23/22 11/02/22 Rx (3 mL) subcutaneous pen (Novolog FlexPen U-100 Insulin aspart) insulin glargine 100 unit/mL (3 35 unit (0.35 mL) subcut BID #1 mL 10/23/22 11/02/22 Rx mL) subcutaneous pen (Lantus Solostar U-100 Insulin) sennosides 8.6 mg-docusate sodium 2 tab PO HS #0 tabs 10/23/22 11/02/22 Rx 50 mg tablet (Senokot-S) levetiracetam 1,000 mg tablet 1,000 mg PO BID 11/02/22 11/02/22 History acetaminophen 325 mg tablet 650 mg PO TID 14 days #84 tabs 11/08/22 Rx oxycodone 5 mg tablet 10 mg PO QID PRN pain #30 tabs 11/08/22 Rx Past Med/Surg History Medical History (Updated 11/20/22 @ 01:57 by Shavonne Montenegro DO) Anxiety Brain cyst Chronic low back pain with left-sided sciatica Chronic obstructive pulmonary disease Depression Hypertension Hypokalemia Hypomagnesemia Hyponatremia Insulin dependent diabetes mellitus Narcotic abuse Ongoing, documented by PCP since 2013 Neurogenic claudication due to lumbar spinal stenosis Obesity Periapical abscess with facial involvement Pulmonary embolism Reports was anticoagulation x 60 days, not on chronic anticoagulation Syncope Thrombocytopenia Tinea corporis Tinea cruris Uncontrolled type 2 diabetes mellitus Surgical History History of laparoscopic cholecystectomy Hx of oral surgery (02/15/20) Acute right submandibular, submental space infection with floor of mouth infection caused by infected lower teeth. Dr. Rios 02/15/20 S/P dilation and curettage S/P laparoscopic hernia repair S/P laparoscopic procedure ovarian cyst surgery Family History Mother , 73 Heart disease Cancer small cell ca lung caused at 73 Father Skin cancer Brother No problems noted. Sister No problems noted. Grandmother (Maternal) , 48 Heart disease T2DM (type 2 diabetes mellitus) Grandmother (Paternal) , 83 Heart disease Kidney disease Uncle T2DM (type 2 diabetes mellitus) Other Diabetes Obesity Denies family history of Ovarian cancer Breast cancer Colorectal cancer Uterine cancer Social History Smoking Status: Former smoker Tobacco Type: Cigarettes Cigarettes Per Day: 5; Second Hand Exposure: Yes; Hx Alcohol Use: No Hx Substance Use: No Preferred Language: Estonian Communication Ability: Effective Visual Impairment: No Limitations Hearing Ability: Normal Rug Hooker Hand Required: No Beliefs That Will Affect Care: None marital status: Current Living Situation: Alone Current Living Situation Comment: Lives with son (15yo) current occupational status: unemployed 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 How many Children do You have: 1 Feels Safe at Home: Yes Assistive Devices: Walker Review of Systems Review of Systems: All systems reviewed & are unremarkable except as noted in HPI & below Physical Exam Physical Exam: General: patient resting comfortably, NAD, non-toxic in appearance, AA&O x 4 Skin: warm, dry, intact, no rashes or lesions, surgical site appears clean and healing well with no bleeding or dehiscence HEENT: NC/AT, PERRL, EOMI, anicteric sclera, conjunctiva without injection, external ear normal to inspection and nontender, nares patent, moist mucus membranes, edentulous, no oropharyngeal lesions, neck supple, trachea midline, no LAD, no thyromegaly, no JVD Heart: +S1/S2, regular, no m/r/g Lungs: equal air entry bilaterally, no rales/rhonchi/wheezes Abd: +BS, soft, NT/ND, no masses/organomegaly/ascites Ext: warm, 2+ pulses in UE/LE bilaterally, no clubbing/cyanosis, trace nonpitting edema bilateral lower extremities Neuro: nonfocal, patient AA&O x 4, speech intact, no facial droop, moving all extremities on command with equal strength 5/5, reflexes intact Results & Data Results & Data ([facility]) Vital Signs (Past 12 Hours) Vital Signs Temp Pulse Resp BP Pulse Ox O2 Del Method 11/19/22 22:00 93 H 18 99 Room Air 11/19/22 19:31 36.7 C 99 H 24 110/81 91 Room Air Laboratory Results Laboratory Results WBC 6.42 K/ul (4.8-10.8) 11/19/22 20: RBC 4.67 M/uL (4.20-5.40) 11/19/22 20: Hgb 14.2 g/dl (12.0-16.0) 11/19/22 20: Hct 42.3 % (37.0-47.0) 11/19/22 20: MCV 90.6 fL (80.0-100.0) 11/19/22 20: MCH 30.4 pg (25.0-34.0) 11/19/22 20: MCHC 33.6 g/dL (32.0-36.0) 11/19/22 20: RDW Std Deviation 45.1 fL (36.4-46.3) 11/19/22 20: RDW Coeff of Kelli 13.7 % (11.5-14.5) 11/19/22 20: Plt Count 187 K/uL (130-400) 11/19/22 20: MPV 11.4 fL (9.4-12.4) 11/19/22 20: Immature Gran % (Auto) 0.2 % 11/19/22 20: Neut % (Auto) 62.0 % 11/19/22 20: Lymph % (Auto) 29.4 % 11/19/22 20: Lyman % (Auto) 5.3 % 11/19/22 20: Eos % (Auto) 2.5 % 11/19/22 20:06 Baso % (Auto) 0.6 % 11/19/22 20:06 Neut # (Auto) 3.98 K/uL (1.40-6.50) 11/19/22 20:06 Lymph # (Auto) 1.89 K/uL (1.2-3.4) 11/19/22 20:06 Lyman # (Auto) 0.34 K/uL (0.11-0.59) 11/19/22 20:06 Eos # (Auto) 0.16 K/uL (0-0.50) 11/19/22 20:06 Baso # (Auto) 0.04 K/uL (0-0.2) 11/19/22 20:06 Immature Gran # (Auto) 0.01 K/uL (0.01-0.20) 11/19/22 20:06 Sodium 138 mmol/L (136-145) 11/19/22 20:06 Potassium 3.9 mmol/L (3.5-5.1) 11/19/22 20:06 Chloride 101 mmol/L (98-107) 11/19/22 20:06 Carbon Dioxide 29 mmol/L (21-32) 11/19/22 20:06 Anion Gap 8 (3-11) 11/19/22 20:06 BUN 7 mg/dl (6-23) 11/19/22 20:06 Creatinine 0.61 mg/dl (0.6-1.2) 11/19/22 20:06 Est Cr Clr Drug Dosing 125.5 ml/min 11/19/22 20:06 Est GFR ( Amer) 119.1 ml/min 11/19/22 20:06 Est GFR (Non-Af Amer) 102.8 ml/min 11/19/22 20:06 BUN/Creatinine Ratio 11.5 (10-20) 11/19/22 20:06 Glucose 292 mg/dl (70-99(Fasting)) H 11/19/22 20:06 Calcium 10.4 mg/dl (8.5-10.1) H 11/19/22 20:06 Total Bilirubin 0.4 mg/dl (0.2-1.0) 11/19/22 20:06 AST 28 U/L (13-39) 11/19/22 20:06 ALT 25 U/L (7-52) 11/19/22 20:06 Alkaline Phosphatase 208 U/L (34-104) H 11/19/22 20:06 Total Protein 8.5 gm/dl (6.0-8.3) H 11/19/22 20:06 Albumin 4.2 gm/dl (3.4-5.0) 11/19/22 20:06 Globulin 4.3 gm/dl (2.5-4.0) H 11/19/22 20:06 Albumin/Globulin Ratio 1.0 (0.9-2) 11/19/22 20:06 Urine Color Yellow 11/19/22 23:50 Urine Appearance Clear (Clear) 11/19/22 23:50 Urine pH 6.5 (4.5-7.5) 11/19/22 23:50 Ur Specific [place] 1.007 (1.000-1.030) 11/19/22 23:50 Urine Protein Negative (Negative) 11/19/22 23:50 Urine Glucose (UA) Negative (Negative) 11/19/22 23:50 Urine Ketones Negative (Negative) 11/19/22 23:50 Urine Blood Negative (Negative) 11/19/22 23:50 Urine Nitrite Negative (Negative) 11/19/22 23:50 Urine Bilirubin Negative (Negative) 11/19/22 23:50 Urine Urobilinogen Negative (Negative) 11/19/22 23:50 Ur Leukocyte Esterase Negative (Negative) 11/19/22 23:50 SARS-CoV-2, RNA, NAAT NEGATIVE (NEGATIVE) 11/19/22 23:50 Diagnostic Findings MRI L-spine: Per stat readthere is a 1.1 x 2.1 x 5.7 cm fluid collection of the laminectomy sites at the L3 and L4. An additional 2.5 x 3.0 x 6.8 cm fluid collection of the subcutaneous fat of the back at the level of L3-L5 is noted. These could represent a seroma, hematoma or abscesses. Stable fluid of the sacrum, this is not significantly changed since 03/12/2022 and likely benign. PG Care Time/CCT Total # of Minutes Spent Total Time Spent with Patient: Total time spent is greater than 50% in coordination of care (as documented) at patient's floor/unit and/or counseling patient: Coding Level of Care Code 53595 INT INP/OBS CARE MIN Diagnoses Acute lumbar radiculopathy M54.16 Dyslipidemia E78.5 Seizure disorder G40.909 Hypertension I10 Hypertension type: essential hypertension Depression F32.9 Chronic obstructive pulmonary disease J44.9 Uncontrolled type 2 diabetes mellitus E11.65 Glycemic state: with hyperglycemia (1) Hypertension Hypertension type: essential hypertension Qualified Code(s): I10 - Essential (primary) hypertension (2) Uncontrolled type 2 diabetes mellitus Glycemic state: with hyperglycemia Qualified Code(s): E11.65 - Type 2 diabetes mellitus with hyperglycemia
[2022-11-20] MEDS ORDERED: HYDROmorphone INJ 0.5 MG/0.5 ML SYR IV STA (02:23)
[2022-11-20] MEDS ORDERED: HYDROmorphone INJ 0.5 MG/0.5 ML SYR IV PRN (04:10)
[2022-11-20] MEDS ORDERED: GLUCOSE 10 TAB/TUBE PO PRN (04:10)
[2022-11-20] MEDS ORDERED: oxyCODONE HCL IR 5 MG TAB (IMMEDIATE RELEASE) PO PRN (04:10)
[2022-11-20] MEDS ORDERED: ONDANSETRON INJ 2 MG/ML 2 ML VIAL IV PRN (04:10)
[2022-11-20] MEDS ORDERED: DEXTROSE 50% 50 ML SYRINGE IV PRN (04:10)
[2022-11-20] MEDS ORDERED: LIDOCAINE 5% 1 PATCH TD PRN (04:10)
[2022-11-20] MEDS ORDERED: GLUCOSE 40% GEL 15 GM TUBE PO PRN (04:10)
[2022-11-20] MEDS ORDERED: PROMETHAZINE HCL 25 MG TAB PO PRN (04:10)
[2022-11-20] MEDS ORDERED: CARBOHYDRATES FOR HYPOGLYCEMIA PO PRN (04:10)
[2022-11-20] MEDS ORDERED: CYCLOBENZAPRINE HCL 10 MG TAB PO PRN (04:10)
[2022-11-20] MEDS ORDERED: ALBUTEROL HFA 8 GM INHALER INH PRN (04:10)
[2022-11-20] MEDS ORDERED: GLUCAGON FOR INJ 1 MG VIAL SQ PRN (04:10)
[2022-11-20] MEDS ORDERED: FLUTICASONE/VILANTEROL 100/25MCG 14 PUFFS/INHALER INH PRN (04:35)
[2022-11-20] MEDS: ACETAMINOPHEN 325 MG TAB PO SCH ×3 (05:20→21:25)
[2022-11-20] MEDS: INSULIN ASPART PER UNIT SC SCH ×5 (05:21→21:17)
[2022-11-20] MEDS: LANTUS PER UNIT CHARGE SQ SCH ×2 (05:21→21:17)
--- NOTE | 2022-11-20 07:02 | Hospitalist Progress Note ---
Date of Service November 20, 2022 Assessment & Plan (1) Acute lumbar radiculopathy: Plan: 52-year-old female with longstanding history of lumbar pain in setting of severe spinal stenosis status post decompression and fusion L3-L5 performed by Dr. Sharpe on 10/20/2022. Patient was discharged to rehab on 10/23/2022 until 11/02 when she returned to the hospital with worsening pain and a fall. She was discharged home again on 11/08. Returns this admission with worsening back pain and left-sided leg pain and weakness. Lumbar radiculopathy - MRI lumbar spine with fluid collections described at the surgical site (see imaging section). Possibly seromas, hematomas versus abscesses. - Pain regimen: Oxycodone 5-10mg q6h prn (10mg for pain 7-10 severity). This was changed from Oxycodone 5 TID prn ordered at admission. Dilaudid 0.25mg IV q6h prn for breakthrough pain. Scheduled Tylenol, prn Flexeril, prn ibuprofen, prn Lidoderm patch. - acetaminophen adverse reaction noted. Tolerating at the moment. AST, ALT wnl. - PT/OT ordered - Ortho spine consulted: recommendations: PT/OT. Conservative management. May be candidate for rehab. Consider consultation with interventional pain management for long-term care. Left lateral ankle rash - Acute, without known trigger - Monitor for allergic reaction symptoms - Exam most consistent w/ irritant contact dermaitis vs allergic contact dermatitis. Topical triamcinolone 0.01% BID x 1 week; Determine duration at discharge. Left ankle edema - Venous duplex US of LLE ordered: negative for DVT. Type 2 diabetes mellitus - A1c 8.9 10/15/22, previous A1Cs 10+ - Received a dose of dexamethasone in the ER - POC glucose elevated to 460. BSG decreased to 129 w/ sliding scale, Lantus 35u BID, and 7u IV insulin (one-time dose). - Follow BSGs ACHS Normocytic anemia - Baseline ~11s. 14.2 at admission, 11.2 subsequent. No symptoms. Follow cbc. Dyslipidemia - Not on statin. Address as outpatient. Seizure disorder - Chronic. Stable. Continue Keppra 1000 mg p.o. twice daily Hypertension - Not on medication. Depression and anxiety - Stable. Continue buspirone and duloxetine Chronic obstructive pulmonary disease - Stable. Continue albuterol, fluticasone/salmeterol, and Singulair Chronic narcotic use - Monitor use. Reduce when able. Per nursing has documented hx of narcotic abuse noted in chart. FENHH, DM2 diet ProphylaxisLovenox 40 mg daily Codefull Dispositionmed surg (2) Uncontrolled type 2 diabetes mellitus: (3) Dyslipidemia: (4) Seizure disorder: (5) Hypertension: (6) Depression: (7) Chronic obstructive pulmonary disease: (8) Rash: (9) Ankle swelling: (10) Narcotic abuse: Admission and Anticipated Discharge Date Admission Date: November 20, 2022 Supervising Physician Co-Signing Physician Notes Resident Physician Supervision Note: I independently interviewed and examined the patient and verified the brennan history and physical, reviewed labs and image studies and agree with resident findings and care plan. Subjective Per patient, pain in uncontrolled. She is requesting a change in her pain regimen: prn dilaudid for breakthrough and oxycodone 5mg 1-2 tabs q6h prn. + new chills. Chronic nonprod cough, Ongoing mild cold sxs. Mild sob, attributes to copd. No recent tobacco use; states does not need patch. Review of Systems Review of Systems: All systems reviewed & are unremarkable except as noted in HPI & below Physical Exam Physical Exam: General: Grossly A&O. NAD. Cooperative. HEENT: Atraumatic, normocephalic. EOMI Pulm: CTAB, slightly diminished diffusely.. -wheezes, -rales, -rhonchi. No respiratory distress. Cardiac: RRR, -mrg. Slightly puffy appearing LLE, no pitting edema appreciated. Abdominal: Nontender, nondistended, soft. Msk: No ttp of ankles. Integ: No erythema of ankles. Neuro: Decreased sensation L knee down. 4/5 ankle strength on L. Normal sensation of bilat upper extrem. Results & Data Results & Data ([facility]) Vital Signs (Past 12 Hours) Vital Signs Temp Pulse Pulse Resp BP BP BP 11/20/22 04:51 36.8 C 102 H 20 123/82 11/20/22 04:10 36.8 C 102 H 20 123/82 11/20/22 03:14 11/20/22 03:04 112 H 18 117/90 02/10/23 22:00 93 H 18 11/19/22 19:31 36.7 C 99 H 24 110/81 Pulse Ox O2 Del Method 11/20/22 04:51 97 Room Air 11/20/22 04:10 97 Room Air 11/20/22 03:14 Room Air 11/20/22 03:04 98 Room Air 11/19/22 22:00 99 Room Air 11/19/22 19:31 91 Room Air Diagnostic Findings 11/19/22 LUMBAR SPINE MRI HISTORY: severe pain, can't walk, right leg weak TECHNIQUE: Multiplanar multisequence MRI of the lumbar spine was performed without the use of contrast. COMPARISON: Lumbar spine CT 11/02/2022. Lumbar spine MRI 10/15/2022. FINDINGS: For the purpose of the report the L5-S1 disc space will be located on axial image 34 of 46.. Mild levoscoliosis again noted. There is posterior decompression and fusion from L3 through L5 with pedicle screws and rods. Mild disc space narrowing and disc desiccation at L5-S1. The conus terminates at the L1 level. There is a 7.0 x 1.9 x 1.2 cm loculated fluid collection at the laminectomy sites without significant mass effect along the thecal sac. There is a similar-appearing loculated fluid collection within the subcutaneous soft tissues of the lower lumbar region which measures 7.5 x 2.8 x 2.8 cm. These favor postoperative seromas or old hematomas. Secondary infection would be impossible to exclude by imaging but considered less likely. There is subcutaneous edema within the lumbar region. 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 This results in mass effect and rightward deviation of the sacral canal. L1-L2: No significant central canal or neural foraminal narrowing. L2-L3: No significant central canal or neural foraminal narrowing. L3-L4: No significant central canal narrowing due to the posterior decompression. Mild to moderate bilateral neural foraminal narrowing persists due to the disc bulge and facet hypertrophy. L4-L5: No significant central canal narrowing due to the posterior decompression. Mild to moderate bilateral neural foraminal narrowing is again noted. L5-S1: Broad-based posterior disc bulge with a left paracentral focal disc protrusion which abuts the transiting left S1 nerve roots. This is similar to the prior study. No significant neural foraminal narrowing. IMPRESSION: 1. Posterior decompression and fusion from L3 through L5 with pedicle screws and rods. No significant central canal narrowing at these levels due to the posterior decompression. 2. Loculated fluid collections within the laminectomy sites and subcutaneous soft tissues favor postoperative seromas/old hematomas. Secondary infection would be impossible to exclude by imaging but is considered less likely. 3. No change in the left paracentral focal disc protrusion at L5-S1 which abuts and displaces the transiting left S1 nerve roots. 4. Additional findings as described above. Resident Activity Tracking Resident Involvement: Resident Care Provided Care Provided: Adult Hospital Medicine (1) Uncontrolled type 2 diabetes mellitus Glycemic state: with hyperglycemia Qualified Code(s): E11.65 - Type 2 diabe olga mellitus with hyperglycemia (2) Hypertension Hypertension type: essential hypertension Qualified Code(s): I10 - Essential (primary) hypertension
[2022-11-20] MEDS: PANTOprazole 40 MG TAB PO SCH (08:24)
[2022-11-20] MEDS: levETIRAcetam 500 MG TAB PO SCH ×2 (08:25→21:24)
[2022-11-20] MEDS: ASPIRIN 81 MG ECTAB PO SCH (08:25)
[2022-11-20] MEDS: busPIRone 5 MG TAB PO SCH ×4 (08:26→21:24)
[2022-11-20] MEDS: GABAPENTIN 800 MG TAB PO SCH ×3 (08:26→21:24)
[2022-11-20] MEDS: FAMOTIDINE 40 MG TABLET PO SCH ×2 (08:26→21:53)
[2022-11-20] MEDS: POLYETHYLENE (MIRALAX) 17 GM PACK PO SCH ×2 (08:27→21:53)
[2022-11-20] MEDS: ENOXAPARIN INJ 40 MG/0.4 ML SYR SQ SCH (08:27)
--- NOTE | 2022-11-20 08:38 | Magnetic Resonance Report ---
LUMBAR SPINE MRI HISTORY: severe pain, can't walk, right leg weak TECHNIQUE: Multiplanar multisequence MRI of the lumbar spine was performed without the use of contras t. COMPARISON: Lumbar spine CT 11/02/2022. Lumbar spine MRI 10/15/2022. FINDINGS: For the purpose of the report the L5-S1 disc space will be located on axial image 34 of 46. . Mild levoscoliosis again noted. There is posterior decompression and fusion from L3 through L5 with p edicle screws and rods. Mild disc space narrowing and disc desiccation at L5-S1. The conus terminates at the L1 level. There is a 7.0 x 1.9 x 1.2 cm loculated fluid collection at the laminectomy sites w ithout significant mass effect along the thecal sac. There is a similar-appearing loculated fluid col lection within the subcutaneous soft tissues of the lower lumbar region which measures 7.5 x 2.8 x 2. 8 cm. These favor postoperative seromas or old hematomas. Secondary infection would be impossible to exclude by imaging but considered less likely. There is subcutaneous edema within the lumbar region. 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 This results in mass effect and rightward deviation of the sacral canal. L1-L2: No significant central canal or neural foraminal narrowing. L2-L3: No significant central canal or neural foraminal narrowing. L3-L4: No significant central canal narrowing due to the posterior decompression. Mild to moderate bi lateral neural foraminal narrowing persists due to the disc bulge and facet hypertrophy. L4-L5: No significant central canal narrowing due to the posterior decompression. Mild to moderate bi lateral neural foraminal narrowing is again noted. L5-S1: Broad-based posterior disc bulge with a left paracentral focal disc protrusion which abuts the transiting left S1 nerve roots. This is similar to the prior study. No significant neural foraminal narrowing. IMPRESSION: 1. Posterior decompression and fusion from L3 through L5 with pedicle screws and rods. No significant central canal narrowing at these levels due to the posterior decompression. 2. Loculated fluid collections within the laminectomy sites and subcutaneous soft tissues favor posto perative seromas/old hematomas. Secondary infection would be impossible to exclude by imaging but is considered less likely. 3. No change in the left paracentral focal disc protrusion at L5-S1 which abuts and displaces the tra nsiting left S1 nerve roots. 4. Additional findings as described above. ACT 112: Negative or not required by law. Electronically signed by: Luis F Mixon M.D. 11/20/2022 8:36 AM
[2022-11-20 09:43] LABS: Basophils # (auto) 0.01 K/uL (0-0.2); Basophils % (auto) 0.2 %; Eosinophils # (auto) 0.01 K/uL (0-0.50); Eosinophils % (auto) 0.2 %; Hematocrit (blood only) 33.1 % (37.0-47.0); Hemoglobin 11.2 g/dl (12.0-16.0); Immature Granulocytes # (auto) 0.02 K/uL (0.01-0.20); Immature Granulocytes % (auto) 0.3 %; Lymphocytes # (auto) 1.16 K/uL (1.2-3.4); Lymphocytes % (auto) 19.3 %; Mean Corpuscular Hemoglobin 30.5 pg (25.0-34.0); Mean Corpuscular Hgb Conc 33.8 g/dL (32.0-36.0); Mean Corpuscular Volume 90.2 fL (80.0-100.0); Mean Platelet Volume 10.9 fL (9.4-12.4); Monocytes # (auto) 0.18 K/uL (0.11-0.59); Neutrophils # (auto) 4.64 K/uL (1.40-6.50); Platelet Count 156 K/uL (130-400); RDW Coefficient of Variation 13.4 % (11.5-14.5); Red Blood Count 3.67 M/uL (4.20-5.40); White Blood Count 6.02 K/ul (4.8-10.8)
[2022-11-20 09:58] LABS: Albumin Level 3.2 gm/dl (3.4-5.0); BUN Creatinine Ratio 20.3 (10-20); Bilirubin,Total 0.4 mg/dl (0.2-1.0); Calcium 9.4 mg/dl (8.5-10.1); Creatinine Clr Calc Pharmacy 131.5 ml/min; Est GFR (African American) 120.4 ml/min; Est GFR (Non-African American) 103.9 ml/min; Globulin 3.1 gm/dl (2.5-4.0); Potassium 3.9 mmol/L (3.5-5.1)
[2022-11-20 09:59] LABS: Total Protein 6.3 gm/dl (6.0-8.3)
[2022-11-20] MEDS ORDERED: INSULIN HUMAN REGULAR PER UNIT 7 UNITS in SYRINGE 6.93 ML IV ONE (10:15)
--- NOTE | 2022-11-20 11:15 | Orthopedic Consultation ---
Date of Consultation November 20, 2022 Assessment & Plan (1) Acute lumbar radiculopathy: MRI lumbar spine performed yesterday available for review demonstrates normal postoperative changes with a seroma along the area of decompression. She does have unchanged disc protrusion at L5-S1. There is no gross neural compression. Plan at this time would recommend physical therapy occupational therapy as tolerated. She would be a candidate for rehab. There is no indication for surgical intervention at this point. We may need to consider consultation with interventional pain management for long-term care. History of Present Illness Reason for Consultation: Back and leg pain Attending Physician: Savi Claire MD History of Present Illness This is a 52-year-old female known to me the presents yesterday with worsening left leg pain. This morning she states her symptoms are much improved. She is has been at home. She states she had several falls at home. She expressed significant interest in returning to rehab. She denies any fevers and chills. States her right leg symptoms have steadily improved. Allergies Allergy/AdvReac Type Severity Reaction Status Date / Time acetaminophen AdvReac Severe LIVER Verified 11/20/22 01:48 COMPLICATIONS cephalexin AdvReac Severe Vomiting Verified 11/20/22 01:48 levofloxacin [From Levaquin] AdvReac Intermediate Vomiting Verified 11/20/22 01:48 Home Medications Medication Instructions Recorded Confirmed Type cyclobenzaprine 10 mg tablet 10 mg PO BID PRN Muscle Spasm ##0 11/18/17 11/20/22 History albuterol sulfate 90 mcg/actuation 2 puff inhalation Q4H PRN 02/10/18 11/20/22 History aerosol inhaler (Ventolin HFA) Shortness Of Breath Or Wheezing ##0 ibuprofen 800 mg tablet 800 mg PO TID PRN Pain 10/24/19 11/20/22 History promethazine 25 mg tablet 25 mg PO Q6H PRN Nausea 10/24/19 11/20/22 History fluticasone 232 mcg-salmeterol 14 2 inh inhalation BID PRN Shortness 08/21/20 11/20/22 History mcg/actuation breath activated Of Breath powdr (AirDuo RespiClick) montelukast 10 mg tablet 10 mg PO HS 09/01/20 11/20/22 History (Singulair) aspirin 81 mg tablet,delayed 81 mg PO QAM 10/28/20 11/20/22 History release cyclosporine 0.05 % eye drops in a 2 drp ophthalmic (eye) Q12H 04/17/21 11/20/22 History dropperette (Restasis) diclofenac sodium 1 % topical gel 4 g topical QID PRN Pain 07/20/21 11/20/22 History albuterol sulfate 2.5 mg/3 mL 2.5 mg inhalation Q6 PRN Wheezing 01/19/22 11/20/22 History (0.083 %) solution for nebulization famotidine 40 mg tablet 40 mg PO BID 01/19/22 11/20/22 History fluticasone propionate 50 1 spray intranasal DAILY PRN 01/19/22 11/20/22 History mcg/actuation nasal Congestion spray,suspension (Flonase Allergy Relief) lidocaine 5 % topical patch 1 patch transdermal DAILY PRN Pain 01/19/22 11/20/22 History pantoprazole 20 mg tablet,delayed 20 mg PO QAM 01/19/22 11/20/22 History release polyethylene glycol 3350 17 17 g PO BID 01/29/22 11/20/22 History gram/dose oral powder (Miralax) trazodone 100 mg tablet 100 mg PO HS 01/29/22 11/20/22 History duloxetine 60 mg capsule,delayed 60 mg PO HS 03/12/22 11/20/22 History release gabapentin 800 mg tablet 800 mg PO TID 04/05/22 11/20/22 History buspirone 5 mg tablet 5 mg PO QID 07/30/22 11/20/22 History ondansetron 4 mg disintegrating 4 mg PO Q6H PRN nausea and 08/11/22 11/20/22 Rx tablet vomiting #12 tabs dulaglutide 4.5 mg/0.5 mL 4.5 mg (0.5 mL) subcut WK #2 mL 10/06/22 11/20/22 Rx subcutaneous pen injector (Trulicity) dulaglutide 1.5 mg/0.5 mL 1.5 mg subcut UD 10/12/22 11/20/22 History subcutaneous pen injector (Trulicity) nystatin 100,000 unit/gram topical 1 applic topical UD 10/12/22 11/20/22 History powder (Nyamyc) insulin aspart U-100 100 unit/mL 8 unit (0.08 mL) SC TID #15 mL 10/23/22 11/20/22 Rx (3 mL) subcutaneous pen (Novolog FlexPen U-100 Insulin aspart) insulin glargine 100 unit/mL (3 35 unit (0.35 mL) subcut BID #1 mL 10/23/22 11/20/22 Rx mL) subcutaneous pen (Lantus Solostar U-100 Insulin) sennosides 8.6 mg-docusate sodium 2 tab PO HS #0 tabs 10/23/22 11/20/22 Rx 50 mg tablet (Senokot-S) levetiracetam 1,000 mg tablet 1,000 mg PO BID 11/02/22 11/20/22 History acetaminophen 325 mg tablet 650 mg PO TID 14 days #84 tabs 11/08/22 11/20/22 Rx oxycodone 5 mg tablet 10 mg PO QID PRN pain #30 tabs 11/08/22 11/20/22 Rx Patient History Medical History (Updated 11/20/22 @ 01:57 by Shavonne Montenegro DO) Anxiety Brain cyst Chronic low back pain with left-sided sciatica Chronic obstructive pulmonary disease Depression Hypertension Hypokalemia Hypomagnesemia Hyponatremia Insulin dependent diabetes mellitus Narcotic abuse Ongoing, documented by PCP since 2013 Neurogenic claudication due to lumbar spinal stenosis Obesity Periapical abscess with facial involvement Pulmonary embolism Reports was anticoagulation x 60 days, not on chronic anticoagulation Syncope Thrombocytopenia Tinea corporis Tinea cruris Uncontrolled type 2 diabetes mellitus Surgical History History of laparoscopic cholecystectomy Hx of oral surgery (02/15/20) Acute right submandibular, submental space infection with floor of mouth infection caused by infected lower teeth. Dr. Rios 02/15/20 S/P dilation and curettage S/P laparoscopic hernia repair S/P laparoscopic procedure ovarian cyst surgery Family History Mother , 73 Heart disease Cancer small cell ca lung caused at 73 Father Skin cancer Brother No problems noted. Sister No problems noted. Grandmother (Maternal) , 48 Heart disease T2DM (type 2 diabetes mellitus) Grandmother (Paternal) , 83 Heart disease Kidney disease Uncle T2DM (type 2 diabetes mellitus) Other Diabetes Obesity Denies family history of Ovarian cancer Breast cancer Colorectal cancer Uterine cancer Social History Smoking Status: Former smoker Tobacco Type: Cigarettes Cigarettes Per Day: 5; Second Hand Exposure: Yes; Hx Alcohol Use: No Hx Substance Use: No Preferred Language: Lithuanian Communication Ability: Effective Visual Impairment: No Limitations Hearing Ability: Normal Community Liaison Required: No Beliefs That Will Affect Care: None marital status: Current Living Situation: Alone Current Living Situation Comment: Lives with son (15yo) current occupational status: unemployed 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 She has reasonable plantar flexion dorsiflexion bilateral lower extremities. There are no tension signs with straight leg raising bilaterally. Sensory appears to be symmetric and intact to cold and light touch. Results & Data ([facility]) Vital Signs (Past 12 Hours) Vital Signs Temp Pulse Resp BP BP Pulse Ox O2 Del Method 11/20/22 07:45 36.7 C 81 18 129/80 96 Room Air 11/20/22 04:51 36.8 C 102 H 20 123/82 97 Room Air 11/20/22 04:10 36.8 C 102 H 20 123/82 97 Room Air 11/20/22 03:14 Room Air 11/20/22 03:04 112 H 18 117/90 98 Room Air
--- NOTE | 2022-11-20 11:45 | Ultrasound Report ---
LEFT LOWER EXTREMITY VENOUS DOPPLER HISTORY: Left leg swelling COMPARISON STUDY: None. FINDINGS: There is normal compressibility, flow, and augmentation within the left lower extremity scott p venous system. IMPRESSION: No DVT within the left lower extremity. ACT 112: Negative or not required by law. Electronically signed by: Luis F Mixon M.D. 11/20/2022 11:43 AM
[2022-11-20] MEDS: oxyCODONE HCL IR 5 MG TAB (IMMEDIATE RELEASE) PO PRN ×2 (12:35→19:44)
[2022-11-20] MEDS ORDERED: INSULIN ASPART PER UNIT SC STA (14:50)
[2022-11-20] MEDS: HYDROmorphone INJ 0.5 MG/0.5 ML SYR IV PRN (16:36)
[2022-11-20] MEDS ORDERED: TRIAMCINOLONE ACET 0.1% OINT 454 GM EXT SCH (21:00)
[2022-11-20] MEDS: DULoxetine HCL 60 MG CAP PO SCH (21:25)
[2022-11-20] MEDS: traZODone HCL 100 MG TAB PO SCH (21:26)
[2022-11-20] MEDS: TRIAMCINOLONE ACET 0.1% CR 80 GM TUBE EXT SCH (21:26)
[2022-11-20] MEDS: MONTELUKAST SODIUM 10 MG TABLET PO SCH (21:53)
[2022-11-20] MEDS: DOCUSATE SODIUM/SENNA 50/8.6MG TAB PO SCH (21:53)
[2022-11-21] MEDS: HYDROmorphone INJ 0.5 MG/0.5 ML SYR IV PRN ×4 (00:44→23:08)
[2022-11-21] MEDS: oxyCODONE HCL IR 5 MG TAB (IMMEDIATE RELEASE) PO PRN ×3 (02:22→20:26)
[2022-11-21] MEDS: ACETAMINOPHEN 325 MG TAB PO SCH ×3 (06:05→22:37)
--- NOTE | 2022-11-21 06:46 | Hospitalist Progress Note ---
Date of Service November 21, 2022 Assessment & Plan (1) Acute lumbar radiculopathy: Plan: Elza Vick is a 52yo female with longstanding history of lumbar pain in setting of severe spinal stenosis status post decompression and fusion L3-L5 performed by Dr. Sharpe on 10/20/2022. Patient was discharged to rehab on 10/23/2022 until 11/02 when she returned to the hospital with worsening pain and a fall. She was discharged home again on 11/08. Returns this admission with worsening back pain and left-sided leg pain and weakness. Low Back Pain; Lumbar radiculopathy MRI lumbar spine with fluid collections described at the surgical site (see imaging section). Possibly seromas, hematomas versus abscesses. - Ortho spine consulted: recommendations: PT/OT. Conservative management. May be candidate for rehab - PT/OT recommended rehab - Pain regimen: Oxycodone 5-10mg q6h prn (10mg for pain 7-10 severity). This was changed from Oxycodone 5 TID prn ordered at admission. Dilaudid 0.25mg IV q6h prn for breakthrough pain. Scheduled Tylenol, prn Flexeril, prn ibuprofen, prn Lidoderm patch. - continue home Gabapentin - Tylenol adverse reaction noted. Tolerating at the moment. AST, ALT wnl. - pain management consulted for further recs i.e. interventional treatments - appreciate recs Left lateral ankle rash - Acute, without known trigger - Monitor for allergic reaction symptoms - Exam most consistent w/ irritant contact dermaitis vs allergic contact dermatitis. Topical triamcinolone 0.01% BID x 1 week; Determine duration at discharge. Type 2 diabetes mellitus A1c 8.9 10/15/22, previous A1Cs 10+ - Received a dose of dexamethasone in the ER - continue Lantus 25 units BID and SSI Normocytic anemia Baseline ~11s. 14.2 at admission, 11.2 subsequent. No symptoms. - Follow CBC Dyslipidemia - Not on statin. Address as outpatient. Seizure disorder - Continue Keppra 1000 mg p.o. twice daily Hypertension Normotensive here. Not on medication. Depression and anxiety - continue home buspirone and duloxetine Chronic obstructive pulmonary disease - continue home Fluticasone/Salmeterol, Singulair and PRN Albuterol Chronic narcotic use - Monitor use. Reduce when able. (Note: chronically uses Oxycodone 5mg PO BID for baseline pain) GERD - continue home Protonix FEN/GI: DM2 diet DVT ppx: Lovenox 40 mg daily Code status: full Disposition: med surg (2) Uncontrolled type 2 diabetes mellitus: (3) Dyslipidemia: (4) Seizure disorder: (5) Hypertension: (6) Depression: (7) Chronic obstructive pulmonary disease: (8) Rash: (9) Ankle swelling: (10) Narcotic abuse: Admission and Anticipated Discharge Date Admission Date: November 20, 2022 Supervising Physician Co-Signing Physician Notes Resident Physician Supervision Note: I independently interviewed and examined the patient and verified the brennan history and physical, reviewed labs and image studies and agree with resident findings and care plan. Subjective Patient happy with PRN pain regimen this morning. No current pain. Was able to get up and walk with PT yesterday. No concerns today. Review of Systems Review of Systems: All systems reviewed & are unremarkable except as noted in HPI & below Physical Exam Physical Exam: General: A&Ox3. NAD. Cooperative. Obese. HEENT: Atraumatic, normocephalic. Pulm: CTAB A&P. -wheezes, -rales, -rhonchi. Symmetrical chest rise. No increase work of breathing. No respiratory distress. Cardiac: RRR, -mrg. Radial pulses intact and symmetrical. No LE edema. Abdominal: soft, non-tender, non-distended, BS x 4 Skin: warm, dry, no rash Results & Data Results & Data ([facility]) Vital Signs (Past 12 Hours) Vital Signs Temp Pulse Resp BP Pulse Ox O2 Del Method 11/21/22 00:19 36.5 C 88 20 101/67 100 Room Air Resident Activity Tracking Resident Involvement: Resident Care Provided Care Provided: Adult Hospital Medicine (1) Uncontrolled type 2 diabetes mellitus Glycemic state: with hyperglycemia Qualified Code(s): E11.65 - Type 2 diabetes mellitus with hyperglycemia (2) Hypertension Hypertension type: essential hypertension Qualified Code(s): I10 - Essential (primary) hypertension
[2022-11-21 08:07] LABS: Hematocrit (blood only) 32.7 % (37.0-47.0); Hemoglobin 10.9 g/dl (12.0-16.0); Mean Corpuscular Hemoglobin 30.7 pg (25.0-34.0); Mean Corpuscular Hgb Conc 33.3 g/dL (32.0-36.0); Mean Corpuscular Volume 92.1 fL (80.0-100.0); Mean Platelet Volume 11.6 fL (9.4-12.4); Platelet Count 150 K/uL (130-400); RDW Standard Deviation 47.3 fL (36.4-46.3); Red Blood Count 3.55 M/uL (4.20-5.40); White Blood Count 5.99 K/ul (4.8-10.8)
[2022-11-21 08:20] LABS: Bilirubin,Total 0.3 mg/dl (0.2-1.0); Calcium 8.8 mg/dl (8.5-10.1); Creatinine Clr Calc Pharmacy 125.1 ml/min; Est GFR (African American) 118.5 ml/min; Est GFR (Non-African American) 102.2 ml/min; Magnesium 1.8 mg/dl (1.7-2.4); Potassium 3.7 mmol/L (3.5-5.1)
[2022-11-21] MEDS: levETIRAcetam 500 MG TAB PO SCH ×2 (08:34→22:38)
[2022-11-21] MEDS: busPIRone 5 MG TAB PO SCH ×4 (08:34→22:39)
[2022-11-21] MEDS: FAMOTIDINE 40 MG TABLET PO SCH ×2 (08:34→22:35)
[2022-11-21] MEDS: ENOXAPARIN INJ 40 MG/0.4 ML SYR SQ SCH (08:35)
[2022-11-21] MEDS: ASPIRIN 81 MG ECTAB PO SCH (08:35)
[2022-11-21] MEDS: PANTOprazole 40 MG TAB PO SCH (08:35)
[2022-11-21] MEDS: POLYETHYLENE (MIRALAX) 17 GM PACK PO SCH ×2 (08:36→22:38)
[2022-11-21] MEDS: TRIAMCINOLONE ACET 0.1% CR 80 GM TUBE EXT SCH ×2 (08:36→22:39)
[2022-11-21] MEDS: GABAPENTIN 800 MG TAB PO SCH ×3 (08:36→22:36)
[2022-11-21] MEDS: INSULIN ASPART PER UNIT SC SCH ×4 (08:44→22:34)
[2022-11-21] MEDS: LANTUS PER UNIT CHARGE SQ SCH ×2 (08:45→22:34)
[2022-11-21] MEDS: MONTELUKAST SODIUM 10 MG TABLET PO SCH (22:35)
[2022-11-21] MEDS: DOCUSATE SODIUM/SENNA 50/8.6MG TAB PO SCH (22:36)
[2022-11-21] MEDS: traZODone HCL 100 MG TAB PO SCH (22:37)
[2022-11-21] MEDS: DULoxetine HCL 60 MG CAP PO SCH (22:37)
[2022-11-22] MEDS: ACETAMINOPHEN 325 MG TAB PO SCH ×3 (05:53→21:18)
[2022-11-22 07:53] LABS: Hematocrit (blood only) 32.5 % (37.0-47.0); Hemoglobin 10.9 g/dl (12.0-16.0); Mean Corpuscular Hemoglobin 30.8 pg (25.0-34.0); Mean Corpuscular Hgb Conc 33.5 g/dL (32.0-36.0); Mean Corpuscular Volume 91.8 fL (80.0-100.0); Mean Platelet Volume 11.1 fL (9.4-12.4); Platelet Count 137 K/uL (130-400); RDW Coefficient of Variation 13.9 % (11.5-14.5); RDW Standard Deviation 46.8 fL (36.4-46.3); Red Blood Count 3.54 M/uL (4.20-5.40); White Blood Count 5.89 K/ul (4.8-10.8)
[2022-11-22 08:07] LABS: BUN Creatinine Ratio 21.5 (10-20); Calcium 8.5 mg/dl (8.5-10.1); Creatinine Clr Calc Pharmacy 119.3 ml/min; Est GFR (African American) 116.7 ml/min; Est GFR (Non-African American) 100.7 ml/min; Magnesium 1.8 mg/dl (1.7-2.4); Potassium 3.8 mmol/L (3.5-5.1)
--- NOTE | 2022-11-22 08:22 | Pain Management Consultation ---
Date of Consultation November 22, 2022 Assessment & Plan (1) Lower back pain: Back pain laterality: midline Chronicity: acute Sciatica presence: without sciatica Qualified Code(s): M54.50 - Low back pain, unspecified (2) History of lumbar surgery: (3) Ambulatory dysfunction: (4) Tarlov cyst: (5) Opiate dependence: Plan 1. Do not recommend any changes to current medication regimen. She may continue to work with her PCP Dr Pérez for outpatient prescriptions. 2. Recommend consideration of inpatient PT/OT for strength training and overall conditioning. 3. No role for interventional pain mgt at this time. 4. Thank you for this consultation, please call with questions. Pain Mgt will sign off. History of Present Illness Attending Physician: Mike Canchola DO History of Present Illness 52-year-old female with history of severe spinal stenosis resulting in a L3-5 decompression and fusion performed by Dr. Sharpe on 10/20/2022. She states that prior to the procedure she had significant weakness various falls over the prior 20 years. After the procedure she was discharged to [facility] from 10/23/2022 to 11/02/2022. She states that after discharge she had a fall at home and presented to the [facility] emergency room. She returns again on 11/20/2022 with increasing left lower extremity weakness and pain. She states that she lives at home with her 16-year-old son who is not present at all times due to custody arrangements. She feels that she is deconditioned and unable to care for herself as she does not have any support at home for activities of daily living. Pain ranges between 2-9 out of 10 characterized as deep aching pressure. She reports chronic left-sided knee pain which waxes and wanes. She reports being on her current medication regimen for a significant a mount of time under the direction of Dr. Pérez her PCP. She reports she would like to perform longer inpatient physical therapy for overall conditioning and strength training. She denies any bowel or bladder incontinence, change in motor weakness, fever, chills, night sweats, saddle anesthesia. Pain Assessment Full Body Front + Back: 1. 2. Allergies Allergy/AdvReac Type Severity Reaction Status Date / Time acetaminophen AdvReac Severe LIVER Verified 11/20/22 01:48 COMPLICATIONS cephalexin AdvReac Severe Vomiting Verified 11/20/22 01:48 levofloxacin [From [facility]] AdvReac Intermediate Vomiting Verified 11/20/22 01:48 Home Medications Medication Instructions Recorded Confirmed Type cyclobenzaprine 10 mg tablet 10 mg PO BID PRN Muscle Spasm ##0 11/18/17 11/20/22 History albuterol sulfate 90 mcg/actuation 2 puff inhalation Q4H PRN 02/10/18 11/20/22 History aerosol inhaler (Ventolin HFA) Shortness Of Breath Or Wheezing ##0 ibuprofen 800 mg tablet 800 mg PO TID PRN Pain 10/24/19 11/20/22 History promethazine 25 mg tablet 25 mg PO Q6H PRN Nausea 10/24/19 11/20/22 History fluticasone 232 mcg-salmeterol 14 2 inh inhalation BID PRN Shortness 08/21/20 11/20/22 History mcg/actuation breath activated Of Breath powdr (AirDuo RespiClick) montelukast 10 mg tablet 10 mg PO HS 09/01/20 11/20/22 History (Singulair) aspirin 81 mg tablet,delayed 81 mg PO QAM 10/28/20 11/20/22 History release cyclosporine 0.05 % eye drops in a 2 drp ophthalmic (eye) Q12H 04/17/21 11/20/22 History dropperette (Restasis) diclofenac sodium 1 % topical gel 4 g topical QID PRN Pain 07/20/21 11/20/22 History albuterol sulfate 2.5 mg/3 mL 2.5 mg inhalation Q6 PRN Wheezing 01/19/22 11/20/22 History (0.083 %) solution for nebulization famotidine 40 mg tablet 40 mg PO BID 01/19/22 11/20/22 History fluticasone propionate 50 1 spray intranasal DAILY PRN 01/19/22 11/20/22 History mcg/actuation nasal Congestion spray,suspension (Flonase Allergy Relief) lidocaine 5 % topical patch 1 patch transdermal DAILY PRN Pain 01/19/22 11/20/22 History pantoprazole 20 mg tablet,delayed 20 mg PO QAM 01/19/22 11/20/22 History release polyethylene glycol 3350 17 17 g PO BID 01/29/22 11/20/22 History gram/dose oral powder (Miralax) trazodone 100 mg tablet 100 mg PO HS 01/29/22 11/20/22 History duloxetine 60 mg capsule,delayed 60 mg PO HS 03/12/22 11/20/22 History release gabapentin 800 mg tablet 800 mg PO TID 04/05/22 11/20/22 History buspirone 5 mg tablet 5 mg PO QID 07/30/22 11/20/22 History ondansetron 4 mg disintegrating 4 mg PO Q6H PRN nausea and 08/11/22 11/20/22 Rx tablet vomiting #12 tabs dulaglutide 4.5 mg/0.5 mL 4.5 mg (0.5 mL) subcut WK #2 mL 10/06/22 11/20/22 Rx subcutaneous pen injector (Trulicity) dulaglutide 1.5 mg/0.5 mL 1.5 mg subcut UD 10/12/22 11/20/22 History subcutaneous pen injector (Trulicity) nystatin 100,000 unit/gram topical 1 applic topical UD 10/12/22 11/20/22 History powder (Nyamyc) insulin aspart U-100 100 unit/mL 8 unit (0.08 mL) SC TID #15 mL 10/23/22 11/20/22 Rx (3 mL) subcutaneous pen (Novolog FlexPen U-100 Insulin aspart) insulin glargine 100 unit/mL (3 35 unit (0.35 mL) subcut BID #1 mL 10/23/22 11/20/22 Rx mL) subcutaneous pen (Lantus Solostar U-100 Insulin) sennosides 8.6 mg-docusate sodium 2 tab PO HS #0 tabs 10/23/22 11/20/22 Rx 50 mg tablet (Senokot-S) levetiracetam 1,000 mg tablet 1,000 mg PO BID 11/02/22 11/20/22 History acetaminophen 325 mg tablet 650 mg PO TID 14 days #84 tabs 11/08/22 11/20/22 Rx oxycodone 5 mg tablet 10 mg PO QID PRN pain #30 tabs 11/08/22 11/20/22 Rx Patient History Medical History (Updated 11/22/22 @ 08:55 by Elissa Chatman DO) Anxiety Brain cyst Chronic low back pain with left-sided sciatica Chronic obstructive pulmonary disease Depression Hypertension Hypokalemia Hypomagnesemia Hyponatremia Insulin dependent diabetes mellitus Narcotic abuse Ongoing, documented by PCP since 2013 Neurogenic claudication due to lumbar spinal stenosis Obesity Opiate dependence Periapical abscess with facial involvement Pulmonary embolism Reports was anticoagulation x 60 days, not on chronic anticoagulation Syncope Thrombocytopenia Tinea corporis Tinea cruris Uncontrolled type 2 diabetes mellitus Surgical History History of laparoscopic cholecystectomy Hx of oral surgery (02/15/20) Acute right submandibular, submental space infection with floor of mouth infection caused by infected lower teeth. Dr. Rios 02/15/20 S/P dilation and curettage S/P laparoscopic hernia repair S/P laparoscopic procedure ovarian cyst surgery Family History Mother , 73 Heart disease Cancer small cell ca lung caused at 73 Father Skin cancer Brother No problems noted. Sister No problems noted. Grandmother (Maternal) , 48 Heart disease T2DM (type 2 diabetes mellitus) Grandmother (Paternal) , 83 Heart disease Kidney disease Uncle T2DM (type 2 diabetes mellitus) Other Diabetes Obesity Denies family history of Ovarian cancer Breast cancer Colorectal cancer Uterine cancer Social History Smoking Status: Former smoker Tobacco Type: Cigarettes Cigarettes Per Day: 5; Second Hand Exposure: Yes; Hx Alcohol Use: No Hx Substance Use: No Preferred Language: [place] Communication Ability: Effective Visual Impairment: No Limitations Hearing Ability: Normal Auto Clutch Specialist Required: No Beliefs That Will Affect Care: None marital status: Current Living Situation: Alone Current Living Situation Comment: Lives with son (15yo) current occupational status: unemployed 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 Recent memory appears grossly intact Eyes: Pupils are equally round and reactive to light with normal size pupils, eyelids appear normal Ear, nose, mouth, and throat: Moist nasal and oral membranes, lips and tongues appear normal, no external ear abnormalities are noted Neck: The trachea is midline without deviation and no thyromegaly is noted Respiratory: Normal respiratory effort without distress, no audible wheezes or rhonchi CV: Normal S1 and S2, warm distal extremities Musculoskeletal: Head is normocephalic and atraumatic, gait not observed. Able to move easily in bed Cervical: Lordotic curve: Normal Range of motion is normal with extension, flexion, side-bending, rotation Strength: Strength is grossly equal bilaterally with 5 out of 5 strength in all planes Lumbar: Lordotic curve: Complete loss of lumbar lordosis, well healing midline incision Range of motion is decreased in all planes Tenderness: moderately tender over the axial midline Straight leg raise: Negative bilaterally Strength: Strength is 5 out of 5 strength in RLE. LLE 4+/5 global (pt states is chronic-unsure of pt effort) Sensation of lower extremities: Intact bilaterally Myofascial spasm: mild lumbar spasm. No discrete trigger points noted Greater trochanters: Nontender bilaterally Sacroiliac joints: Nontender bilaterally Pathologic reflexes noted: None Skin: No rashes, lesions, ulcers, or induration noted Neuro: No nystagmus noted, the tongue is midline, the patient is able to rotate their head bilaterally Results ([facility]) Diagnostic Review MRI: non enhanced and reports reviewed MRI Findings: 11/19/22 LUMBAR SPINE MRI HISTORY: severe pain, can't walk, right leg weak TECHNIQUE: Multiplanar multisequence MRI of the lumbar spine was performed without the use of contrast. COMPARISON: Lumbar spine CT 11/02/2022. Lumbar spine MRI 10/15/2022. FINDINGS: For the purpose of the report the L5-S1 disc space will be located on axial image 34 of 46.. Mild levoscoliosis again noted. There is posterior decompression and fusion from L3 through L5 with pedicle screws and rods. Mild disc space narrowing and disc desiccation at L5-S1. The conus terminates at the L1 level. There is a 7.0 x 1.9 x 1.2 cm loculated fluid collection at the laminectomy sites without significant mass effect along the thecal sac. There is a similar-appearing loculated fluid collection within the subcutaneous soft tissues of the lower lumbar region which measures 7.5 x 2.8 x 2.8 cm. These favor postoperative seromas or old hematomas. Secondary infection would be impossible to exclude by imaging but considered less likely. There is subcutaneous edema within the lumbar region. 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 This results in mass effect and rightward deviation of the sacral canal. L1-L2: No significant central canal or neural foraminal narrowing. L2-L3: No significant central canal or neural foraminal narrowing. L3-L4: No significant central canal narrowing due to the posterior decompression. Mild to moderate bilateral neural foraminal narrowing persists due to the disc bulge and facet hypertrophy. L4-L5: No significant central canal narrowing due to the posterior decompression. Mild to moderate bilateral neural foraminal narrowing is again noted. L5-S1: Broad-based posterior disc bulge with a left paracentral focal disc protrusion which abuts the transiting left S1 nerve roots. This is similar to the prior study. No significant neural foraminal narrowing. IMPRESSION: 1. Posterior decompression and fusion from L3 through L5 with pedicle screws and rods. No significant central canal narrowing at these levels due to the posterior decompression. 2. Loculated fluid collections within the laminectomy sites and subcutaneous soft tissues favor postoperative seromas/old hematomas. Secondary infection woul d be impossible to exclude by imaging but is considered less likely. 3. No change in the left paracentral focal disc protrusion at L5-S1 which abuts and displaces the transiting left S1 nerve roots. 4. Additional findings as described above. CT: non enhanced and reports reviewed CT Findings: 11/02/22 CT lumbar spine wo con CLINICAL HISTORY: surg, fall, pain . Back surgery 2 weeks ago. Fall twice today. TECHNIQUE: Multidetector row helical CT of the lumbar spine was performed without administration of intravenous contrast. Coronal and sagittal reformations were obtained. Automated dose lowering techniques and/or adjustment according to patient size were utilized for this exam. CT DOSE: 1076.05 mGy.cm Comparison: Comparison is made to CT lumbar spine 10/12/2022 FINDINGS: Aortic calcifications are seen. Posterior spinal fixation hardware spans L3-L5. Postsurgical changes of decompression are seen with heterotopic ossification noted. Disc osteophyte complexes are seen at multiple levels. IMPRESSION: No acute bony injury is seen. Multilevel disc disease is noted. MRI can be performed if there is concern for stenosis. Postsurgical changes of decompression and fusion spanning L3 L5 is noted. Heterotopic ossification is seen.
[2022-11-22] MEDS: busPIRone 5 MG TAB PO SCH ×4 (08:32→21:20)
[2022-11-22] MEDS: ASPIRIN 81 MG ECTAB PO SCH (08:32)
[2022-11-22] MEDS: PANTOprazole 40 MG TAB PO SCH (08:33)
[2022-11-22] MEDS: ENOXAPARIN INJ 40 MG/0.4 ML SYR SQ SCH (08:33)
[2022-11-22] MEDS: TRIAMCINOLONE ACET 0.1% CR 80 GM TUBE EXT SCH ×2 (08:33→21:19)
[2022-11-22] MEDS: POLYETHYLENE (MIRALAX) 17 GM PACK PO SCH ×2 (08:33→21:17)
[2022-11-22] MEDS: levETIRAcetam 500 MG TAB PO SCH ×2 (08:33→21:21)
[2022-11-22] MEDS: GABAPENTIN 800 MG TAB PO SCH ×3 (08:33→21:20)
[2022-11-22] MEDS: FAMOTIDINE 40 MG TABLET PO SCH ×2 (08:33→21:19)
[2022-11-22] MEDS: INSULIN ASPART PER UNIT SC SCH ×4 (08:34→21:28)
[2022-11-22] MEDS: LANTUS PER UNIT CHARGE SQ SCH ×2 (08:36→21:27)
[2022-11-22] MEDS: oxyCODONE HCL IR 5 MG TAB (IMMEDIATE RELEASE) PO PRN ×3 (08:40→21:28)
--- NOTE | 2022-11-22 10:14 | Hospitalist Progress Note ---
Date of Service November 22, 2022 Assessment & Plan (1) Acute lumbar radiculopathy: Plan: Elza Vick is a 52yo female with longstanding history of lumbar pain in setting of severe spinal stenosis status post decompression and fusion L3-L5 performed by Dr. Sharpe on 10/20/2022. Patient was discharged to rehab on 10/23/2022 until 11/02 when she returned to the hospital with worsening pain and a fall. She was discharged home again on 11/08. Returns this admission with worsening back pain and left-sided leg pain and weakness. Low Back Pain Lumbar radiculopathy MRI lumbar spine with fluid collections described at the surgical site (see i maging section). Possibly seromas, hematomas versus abscesses. - Ortho spine consulted: recommendations: PT/OT. Conservative management - PT/OT recommended rehab, pending placement awaiting auth. - Pain regimen: regimen increased to more frequent dosing of Oxycodone 5-10mg q4h prn (10mg for pain 7-10 severity). Dilaudid 0.25mg IV q6h prn for breakthrough pain. Scheduled Tylenol, prn Flexeril, prn ibuprofen, prn Lidoderm patch. - continue home Gabapentin - Tylenol adverse reaction noted. Tolerating at the moment. AST, ALT wnl. - pain management consulted: continue current pain regimen, no role for intervention at this time Left lateral ankle rash, improving - Acute, without known trigger - Monitor for allergic reaction symptoms - Exam most consistent w/ irritant contact dermatitis vs allergic contact dermatitis. Topical triamcinolone 0.01% BID x 1 week; determine duration at discharge. Type 2 diabetes mellitus A1c 8.9 10/15/22, previous A1Cs 10+ - Received a dose of dexamethasone in the ER - continue Lantus 25 units BID and SSI Normocytic anemia Baseline ~11s. 14.2 at admission, 11.2 subsequent. No symptoms. - Follow CBC Dyslipidemia - Not on statin. Address as outpatient. Seizure disorder - Continue Keppra 1000 mg p.o. twice daily Hypertension Normotensive here. Not on medication. Depression and anxiety - continue home buspirone and duloxetine Chronic obstructive pulmonary disease - continue home Fluticasone/Salmeterol, Singulair and PRN Albuterol Chronic narcotic use - Monitor use. Reduce when able. (Note: chronically uses Oxycodone 5mg PO BID for baseline pain) GERD - continue home Protonix FEN/GI: DM2 DVT ppx: Lovenox 40mg daily Code status: full Disposition: med surg (2) Uncontrolled type 2 diabetes mellitus: (3) Dyslipidemia: (4) Seizure disorder: (5) Hypertension: (6) Depression: (7) Chronic obstructive pulmonary disease: (8) Rash: (9) Ankle swelling: (10) Narcotic abuse: Admission and Anticipated Discharge Date Admission Date: November 20, 2022 Supervising Physician Co-Signing Physician Notes I personally examined the patient and verified all brennan points of history and exam, discussed case, and agree with decision making with Dr Nuñez ongoing back pain - R lower and buttock. would like to go to rehab vitals noted nad heent nc at mmm breathing unlabored no accessory muscles good effort ost/msk - R sided Lspine paraspinals and R sided pelvic musculature in region of piriformis high tone/tender decreased ROM - direct myofascial and LAS/inhibitory pressure - tissue texture improved, pt tolerated well LBP, weakness - continue med management, PT/OT eval and treat, try to get approved for rehab again (asked to do pre-peer to peer - gave my contact info but have not yet heard from insurance doc), does not appear safe for home given that she tried and failed, was on the ground near her mailbox for ~90mins couldn't get up. LBP/Lspine and pelvic somatic dysfunction - OMT as above Subjective Patient seen at bedside this morning. Continues to work with PT. Amenable to inpatient rehab/SNF as she knows she will have bad outcomes if she goes home. Pain somewhat controlled but would like meds in tighter frequency. Denies headache, sob, chest pain, abd pain, fever. Review of Systems Review of Systems: All systems reviewed & are unremarkable except as noted in HPI & below Physical Exam Physical Exam: General: A&Ox3. NAD. Cooperative. Obese. HEENT: Atraumatic, normocephalic. Pulm: CTAB A&P. -wheezes, -rales, -rhonchi. Symmetrical chest rise. No increase work of breathing. No respiratory distress. Cardiac: RRR, -mrg. Radial pulses intact and symmetrical. No LE edema. Abdominal: soft, non-tender, non-distended, BS x 4 Skin: warm, dry, no rash Results & Data Results & Data ([facility]) Vital Signs (Past 12 Hours) Vital Signs Temp Pulse Resp BP Pulse Ox O2 Del Method 11/22/22 08:30 103/69 11/22/22 07:25 36.7 C 76 14 97 Room Air 11/22/22 00:10 36.8 C 89 20 101/63 98 Room Air Laboratory Results 11/22/22 11/22/22 11/22/22 Range/Units 07:45 07:33 07:33 WBC 5.89 (4.8-10.8) K/ul RBC 3.54 L (4.20-5.40) M/uL Hgb 10.9 L (12.0-16.0) g/dl Hct 32.5 L (37.0-47.0) % MCV 91.8 (80.0-100.0) fL MCH 30.8 (25.0-34.0) pg MCHC 33.5 (32.0-36.0) g/dL RDW Std Deviation 46.8 H (36.4-46.3) fL RDW Coeff of Kelli 13.9 (11.5-14.5) % Plt Count 137 (130-400) K/uL MPV 11.1 (9.4-12.4) fL Sodium 141 (136-145) mmol/L Potassium 3.8 (3.5-5.1) mmol/L Chloride 109 H (98-107) mmol/L Carbon Dioxide 28 (21-32) mmol/L Anion Gap 4 (3-11) BUN 14 (6-23) mg/dl Creatinine 0.65 (0.6-1.2) mg/dl Est Cr Clr Drug Dosing 119.3 ml/min Est GFR ( Amer) 116.7 ml/min Est GFR (Non-Af Amer) 100.7 ml/min BUN/Creatinine Ratio 21.5 H (10-20) Glucose 149 H (70-99(Fasting)) mg/dl POC Glucose 170 H (70-99) mg/dl Calcium 8.5 (8.5-10.1) mg/dl Magnesium 1.8 (1.7-2.4) mg/dl 11/21/22 11/21/22 11/21/22 Range/Units 22:23 20:09 16:36 WBC (4.8-10.8) K/ul RBC (4.20-5.40) M/uL Hgb (12.0-16.0) g/dl Hct (37.0-47.0) % MCV (80.0-100.0) fL MCH (25.0-34.0) pg MCHC (32.0-36.0) g/dL RDW Std Deviation (36.4-46.3) fL RDW Coeff of Kelli (11.5-14.5) % Plt Count (130-400) K/uL MPV (9.4-12.4) fL Sodium (136-145) mmol/L Potassium (3.5-5.1) mmol/L Chloride (98-107) mmol/L Carbon Dioxide (21-32) mmol/L Anion Gap (3-11) BUN (6-23) mg/dl Creatinine (0.6-1.2) mg/dl Est Cr Clr Drug Dosing ml/min Est GFR ( Amer) ml/min Est GFR (Non-Af Amer) ml/min BUN/Creatinine Ratio (10-20) Glucose (70-99(Fasting)) mg/dl POC Glucose 278 H 329 H* 180 H (70-99) mg/dl Calcium (8.5-10.1) mg/dl Magnesium (1.7-2.4) mg/dl 11/21/22 Range/Units 11:41 WBC (4.8-10.8) K/ul RBC (4.20-5.40) M/uL Hgb (12.0-16.0) g/dl Hct (37.0-47.0) % MCV (80.0-100.0) fL MCH (25.0-34.0) pg MCHC (32.0-36.0) g/dL RDW Std Deviation (36.4-46.3) fL RDW Coeff of Kelli (11.5-14.5) % Plt Count (130-400) K/uL MPV (9.4-12.4) fL Sodium (136-145) mmol/L Potassium (3.5-5.1) mmol/L Chloride (98-107) mmol/L Carbon Dioxide (21-32) mmol/L Anion Gap (3-11) BUN (6-23) mg/dl Creatinine (0.6-1.2) mg/dl Est Cr Clr Drug Dosing ml/min Est GFR ( Amer) ml/min Est GFR (Non-Af Amer) ml/min BUN/Creatinine Ratio (10-20) Glucose (70-99(Fasting)) mg/dl POC Glucose 185 H (70-99) mg/dl Calcium (8.5-10.1) mg/dl Magnesium (1.7-2.4) mg/dl Resident Activity Tracking Resident Involvement: Resident Care Provided Care Provided: Adult Hospital Medicine (1) Uncontrolled type 2 diabetes mellitus Glycemic state: with hyperglycemia Qualified Code(s): E11.65 - Type 2 diabetes mellitus with hyperglycemia (2) Hypertension Hypertension type: essential hypertension Qualified Code(s): I10 - Essential (primary) hypertension
[2022-11-22] MEDS: FLUTICASONE/VILANTEROL 100/25MCG 14 PUFFS/INHALER INH SCH (10:36)
[2022-11-22] MEDS: HYDROmorphone INJ 0.5 MG/0.5 ML SYR IV PRN ×2 (11:17→19:41)
--- NOTE | 2022-11-22 18:07 | Billing Data ---
Date of Service November 22, 2022 Coding Level of Care Code 05896 SUB INP/OBS CARE
--- NOTE | 2022-11-22 18:08 | Hospitalist Progress Note ---
Date of Service November 22, 2022 Assessment & Plan Admission and Anticipated Discharge Date Admission Date: November 22, 2022 Results & Data Results & Data ([facility]) Vital Signs (Past 12 Hours) Vital Signs Temp Pulse Resp BP Pulse Ox O2 Del Method 11/22/22 16:23 98 Room Air 11/22/22 15:16 98.2 F 71 20 94/62 L 94 Room Air 11/22/22 10:49 97.9 F 90 16 105/72 95 Room Air 11/22/22 08:30 103/69 11/22/22 07:25 98.1 F 76 14 97 Room Air PG Care Time/CCT Total # of Minutes Spent Total Time Spent with Patient: Total time spent is greater than 50% in coordination of care (as documented) at patient's floor/unit and/or counseling patient: Coding Level of Care Code None CPT Codes Musculoskeletal - Musculoskeletal: [address] 1-2 Body regions ([id number])
[2022-11-22] MEDS: DOCUSATE SODIUM/SENNA 50/8.6MG TAB PO SCH (21:17)
[2022-11-22] MEDS: MONTELUKAST SODIUM 10 MG TABLET PO SCH (21:19)
[2022-11-22] MEDS: DULoxetine HCL 60 MG CAP PO SCH (21:19)
[2022-11-22] MEDS: traZODone HCL 100 MG TAB PO SCH (21:20)
[2022-11-23] MEDS: NYSTATIN OINT 15 GM TUBE EXT SCH ×3 (01:37→22:14)
[2022-11-23] MEDS: oxyCODONE HCL IR 5 MG TAB (IMMEDIATE RELEASE) PO PRN ×5 (01:37→22:21)
[2022-11-23] MEDS: ACETAMINOPHEN 325 MG TAB PO SCH ×3 (06:13→22:13)
--- NOTE | 2022-11-23 06:57 | Hospitalist Progress Note ---
Date of Service November 23, 2022 Assessment & Plan (1) Acute lumbar radiculopathy: Plan: Elza Vick is a 52yo female with longstanding history of lumbar pain in setting of severe spinal stenosis status post decompression and fusion L3-L5 performed by Dr. Sharpe on 10/20/2022. Patient was discharged to rehab on 10/23/2022 until 11/02 when she returned to the hospital with worsening pain and a fall. She was discharged home again on 11/08. Returns this admission with worsening back pain and left-sided leg pain and weakness. Low Back Pain Lumbar radiculopathy MRI lumbar spine with fluid collections described at the surgical site (see imaging section). Possibly seromas, hematomas versus abscesses. - Ortho spine consulted: recommendations: PT/OT. Conservative management - PT/OT recommended rehab, pending placement awaiting auth. - Pain regimen: regimen increased to more frequent dosing of Oxycodone 5-10mg q4h prn (10mg for pain 7-10 severity). Dilaudid 0.25mg IV q6h prn for breakthrough pain. Scheduled Tylenol, prn Flexeril, prn ibuprofen, prn Lidoderm patch. - continue home Gabapentin - Tylenol adverse reaction noted. Tolerating at the moment. AST, ALT wnl. - pain management consulted: continue current pain regimen, no role for intervention at this time Left lateral ankle rash, improving - Acute, without known trigger - Monitor for allergic reaction symptoms - Exam most consistent w/ irritant contact dermatitis vs allergic contact dermatitis. Topical triamcinolone 0.01% BID x 1 week; determine duration at discharge. Type 2 diabetes mellitus A1c 8.9 10/15/22, previous A1Cs 10+ - Received a dose of dexamethasone in the ER - continue Lantus 25 units BID and SSI Normocytic anemia Baseline ~11s. 14.2 at admission, 11.2 subsequent. No symptoms. - Follow CBC Dyslipidemia - Not on statin. Address as outpatient. Seizure disorder - Continue Keppra 1000 mg p.o. twice daily Hypertension Normotensive here. Not on medication. Depression and anxiety - continue home buspirone and duloxetine Chronic obstructive pulmonary disease - continue home Fluticasone/Salmeterol, Singulair and PRN Albuterol Chronic narcotic use - Monitor use. Reduce when able. (Note: chronically uses Oxycodone 5mg PO BID for baseline pain) GERD - continue home Protonix FEN/GI: DM2 DVT ppx: Lovenox 40mg daily Code status: full Disposition: med surg (2) Uncontrolled type 2 diabetes mellitus: (3) Dyslipidemia: (4) Seizure disorder: (5) Hypertension: (6) Depression: (7) Chronic obstructive pulmonary disease: (8) Rash: (9) Ankle swelling: (10) Narcotic abuse: Admission and Anticipated Discharge Date Admission Date: November 22, 2022 Subjective Patient seen at bedside this morning. Continues to work with PT. Amenable to inpatient rehab/SNF as she knows she will have bad outcomes if she goes home. Pain somewhat controlled but would like meds in tighter frequency. Denies headache, sob, chest pain, abd pain, fever. Review of Systems Review of Systems: All systems reviewed & are unremarkable except as noted in HPI & below Physical Exam Physical Exam: General: A&Ox3. NAD. Cooperative. Obese. HEENT: Atraumatic, normocephalic. Pulm: CTAB A&P. -wheezes, -rales, -rhonchi. Symmetrical chest rise. No increase work of breathing. No respiratory distress. Cardiac: RRR, -mrg. Radial pulses intact and symmetrical. No LE edema. Abdominal: soft, non-tender, non-distended, BS x 4 Skin: warm, dry, no rash Results & Data Results & Data ([facility]) Vital Signs (Past 12 Hours) Vital Signs Temp Pulse Resp BP Pulse Ox O2 Del Method 11/22/22 23:09 37 C 96 H 20 109/72 96 Room Air Laboratory Results 11/23/22 11/23/22 11/23/22 Range/Units 16:18 11:23 07:34 Sodium (136-145) mmol/L Potassium (3.5-5.1) mmol/L Chloride (98-107) mmol/L Carbon Dioxide (21-32) mmol/L Anion Gap (3-11) BUN (6-23) mg/dl Creatinine (0.6-1.2) mg/dl Est Cr Clr Drug Dosing ml/min Est GFR ( Amer) ml/min Est GFR (Non-Af Amer) ml/min BUN/Creatinine Ratio (10-20) Glucose (70-99(Fasting)) mg/dl POC Glucose 142 H 241 H 343 H* (70-99) mg/dl Calcium (8.5-10.1) mg/dl Total Bilirubin (0.2-1.0) mg/dl AST (13-39) U/L ALT (7-52) U/L Alkaline Phosphatase (34-104) U/L Total Protein (6.0-8.3) gm/dl Albumin (3.4-5.0) gm/dl Globulin (2.5-4.0) gm/dl Albumin/Globulin Ratio (0.9-2) 11/23/22 11/23/22 11/22/22 Range/Units 07:33 07:29 20:14 Sodium 137 (136-145) mmol/L Potassium 4.0 (3.5-5.1) mmol/L Chloride 105 (98-107) mmol/L Carbon Dioxide 28 (21-32) mmol/L Anion Gap 4 (3-11) BUN 14 (6-23) mg/dl Creatinine 0.62 (0.6-1.2) mg/dl Est Cr Clr Drug Dosing 125.1 ml/min Est GFR ( Amer) 118.5 ml/min Est GFR (Non-Af Amer) 102.2 ml/min BUN/Creatinine Ratio 22.6 H (10-20) Glucose 348 H* (70-99(Fasting)) mg/dl POC Glucose 352 H* 289 H (70-99) mg/dl Calcium 8.7 (8.5-10.1) mg/dl Total Bilirubin 0.3 (0.2-1.0) mg/dl AST 12 L (13-39) U/L ALT 12 (7-52) U/L Alkaline Phosphatase 115 H (34-104) U/L Total Protein 5.7 L (6.0-8.3) gm/dl Albumin 3.0 L (3.4-5.0) gm/dl Globulin 2.7 (2.5-4.0) gm/dl Albumin/Globulin Ratio 1.1 (0.9-2) Resident Activity Tracking Resident Involvement: Resident Care Provided Care Provided: Adult Hospital Medicine (2) Uncontrolled type 2 diabetes mellitus Glycemic state: with hyperglycemia Qualified Code(s): E11.65 - Type 2 diabetes mellitus with hyperglycemia (5) Hypertension Hypertension type: essential hypertension Qualified Code(s): I10 - Essential (primary) hypertension
[2022-11-23 08:19] LABS: Albumin Globulin Ratio 1.1 (0.9-2); BUN Creatinine Ratio 22.6 (10-20); Bilirubin,Total 0.3 mg/dl (0.2-1.0); Calcium 8.7 mg/dl (8.5-10.1); Creatinine Clr Calc Pharmacy 125.1 ml/min; Est GFR (African American) 118.5 ml/min; Est GFR (Non-African American) 102.2 ml/min; Globulin 2.7 gm/dl (2.5-4.0); Total Protein 5.7 gm/dl (6.0-8.3)
[2022-11-23] MEDS: TRIAMCINOLONE ACET 0.1% CR 80 GM TUBE EXT SCH ×2 (08:43→22:15)
[2022-11-23] MEDS: ASPIRIN 81 MG ECTAB PO SCH (08:44)
[2022-11-23] MEDS: busPIRone 5 MG TAB PO SCH ×4 (08:44→22:09)
[2022-11-23] MEDS: FAMOTIDINE 40 MG TABLET PO SCH ×2 (08:44→22:11)
[2022-11-23] MEDS: PANTOprazole 40 MG TAB PO SCH (08:45)
[2022-11-23] MEDS: GABAPENTIN 800 MG TAB PO SCH ×3 (08:45→22:11)
[2022-11-23] MEDS: ENOXAPARIN INJ 40 MG/0.4 ML SYR SQ SCH (08:47)
[2022-11-23] MEDS: levETIRAcetam 500 MG TAB PO SCH ×2 (08:52→22:11)
[2022-11-23] MEDS: FLUTICASONE/VILANTEROL 100/25MCG 14 PUFFS/INHALER INH SCH (08:52)
[2022-11-23] MEDS: LANTUS PER UNIT CHARGE SQ SCH ×2 (09:02→22:20)
[2022-11-23] MEDS: INSULIN ASPART PER UNIT SC SCH ×4 (09:05→22:20)
[2022-11-23] MEDS: POLYETHYLENE (MIRALAX) 17 GM PACK PO SCH ×2 (10:25→22:12)
--- NOTE | 2022-11-23 19:36 | Billing Data ---
Date of Service November 23, 2022 Coding Level of Care Code 31741 SUB INP/OBS CARE
[2022-11-23] MEDS: DULoxetine HCL 60 MG CAP PO SCH (22:10)
[2022-11-23] MEDS: DOCUSATE SODIUM/SENNA 50/8.6MG TAB PO SCH (22:10)
[2022-11-23] MEDS: MONTELUKAST SODIUM 10 MG TABLET PO SCH (22:12)
[2022-11-23] MEDS: traZODone HCL 100 MG TAB PO SCH (22:13)
[2022-11-24] MEDS: oxyCODONE HCL IR 5 MG TAB (IMMEDIATE RELEASE) PO PRN ×5 (02:32→20:01)
[2022-11-24] MEDS: ACETAMINOPHEN 325 MG TAB PO SCH ×3 (06:13→22:15)
--- NOTE | 2022-11-24 06:43 | Hospitalist Progress Note ---
Date of Service November 24, 2022 Assessment & Plan (1) Acute lumbar radiculopathy: Plan: Elza Vick is a 52yo female with longstanding history of lumbar pain in setting of severe spinal stenosis status post decompression and fusion L3-L5 performed by Dr. Sharpe on 10/20/2022. Patient was discharged to rehab on 10/23/2022 until 11/02 when she returned to the hospital with worsening pain and a fall. She was discharged home again on 11/08. Returns this admission with worsening back pain and left-sided leg pain and weakness. Low Back Pain Lumbar radiculopathy MRI lumbar spine with fluid collections described at the surgical site (see imaging section). Possibly seromas, hematomas versus abscesses. - Ortho spine consulted: recommendations: PT/OT. Conservative management - PT/OT recommended rehab, pending placement awaiting auth. - Pain regimen: regimen increased to more frequent dosing of Oxycodone 5-10mg q4h prn (10mg for pain 7-10 severity). Dilaudid 0.25mg IV q6h prn for breakthrough pain. Scheduled Tylenol, prn Flexeril, prn ibuprofen, prn Lidoderm patch. - continue home Gabapentin - Tylenol adverse reaction noted. Tolerating at the moment. AST, ALT wnl. - pain management consulted: continue current pain regimen, no role for intervention at this time Left lateral ankle rash, improving - Acute, without known trigger - Monitor for allergic reaction symptoms - Exam most consistent w/ irritant contact dermatitis vs allergic contact dermatitis. Topical triamcinolone 0.01% BID x 1 week; determine duration at discharge. Type 2 diabetes mellitus A1c 8.9 10/15/22, previous A1Cs 10+ - Received a dose of dexamethasone in the ER - continue Lantus 25 units BID and SSI Normocytic anemia Baseline ~11s. 14.2 at admission, 11.2 subsequent. No symptoms. - Follow CBC Dyslipidemia - Not on statin. Address as outpatient. Seizure disorder - Continue Keppra 1000 mg p.o. twice daily Hypertension Normotensive here. Not on medication. Depression and anxiety - continue home buspirone and duloxetine Chronic obstructive pulmonary disease - continue home Fluticasone/Salmeterol, Singulair and PRN Albuterol Chronic narcotic use - Monitor use. Reduce when able. (Note: chronically uses Oxycodone 5mg PO BID for baseline pain) GERD - continue home Protonix FEN/GI: DM2 DVT ppx: Lovenox 40mg daily Code status: full Dispo: med surg; anticipate discharge to SNF tomorrow at [facility] (2) Uncontrolled type 2 diabetes mellitus: (3) Dyslipidemia: (4) Seizure disorder: (5) Hypertension: (6) Depression: (7) Chronic obstructive pulmonary disease: (8) Rash: (9) Ankle swelling: (10) Narcotic abuse: Admission and Anticipated Discharge Date Admission Date: November 22, 2022 Supervising Physician Co-Signing Physician Notes I personally examined the patient and verified all brennan points of history and exam, discussed case, and agree with decision making with Dr Nuñez rehab denied - extensive discussion w peer to peer doc who seems to agree that pt going home does not sound safe but despite that she won't approve rehab. [facility] SNF approved. vitals noted nad heent nc at mmm breathing unlabored no accessory muscles good effort, no focal neuro deficits. LBP, weakness - continue med management, PT/OT eval and treat, rehab denied, snf approved - for tomorrow LBP/Lspine and pelvic somatic dysfunction - OMT done earlier in stay - highly likely would benefit from ongoing OMT as outpt Subjective Patient seen at bedside this morning. Continues to work with PT. Amenable to inpatient rehab/SNF as she knows she will have bad outcomes if she goes home. Denies headache, sob, chest pain, abd pain, fever. Review of Systems Review of Systems: All systems reviewed & are unremarkable except as noted in HPI & below Physical Exam Physical Exam: General: A&Ox3. NAD. Cooperative. Obese. HEENT: Atraumatic, normocephalic. Pulm: CTAB A&P. -wheezes, -rales, -rhonchi. Symmetrical chest rise. No increase work of breathing. No respiratory distress. Cardiac: RRR, -mrg. Radial pulses intact and symmetrical. No LE edema. Abdominal: soft, non-tender, non-distended, BS x 4 Skin: warm, dry, no rash Results & Data Results & Data ([facility]) Vital Signs (Past 12 Hours) Vital Signs Temp Pulse Resp BP BP Pulse Ox O2 Del Method 11/24/22 02:54 36.5 C 73 16 103/70 98 Room Air 11/23/22 22:00 36.8 C 82 18 101/67 99 Room Air Laboratory Results 11/24/22 11/24/22 11/24/22 Range/Units 12:07 08:01 08:00 POC Glucose 244 H 389 H* 392 H* (70-99) mg/dl 11/23/22 Range/Units 20:47 POC Glucose 265 H (70-99) mg/dl Resident Activity Tracking Resident Involvement: Resident Care Provided Care Provided: Adult Hospital Medicine (2) Uncontrolled type 2 diabetes mellitus Glycemic state: with hyperglycemia Qualified Code(s): E11.65 - Type 2 diabetes mellitus with hyperglycemia (5) Hypertension Hypertension type: essential hypertension Qualified Code(s): I10 - Essential (primary) hypertension
[2022-11-24] MEDS: levETIRAcetam 500 MG TAB PO SCH ×2 (08:55→20:04)
[2022-11-24] MEDS: FAMOTIDINE 40 MG TABLET PO SCH ×2 (08:59→20:04)
[2022-11-24] MEDS: PANTOprazole 40 MG TAB PO SCH (08:59)
[2022-11-24] MEDS: GABAPENTIN 800 MG TAB PO SCH ×3 (09:00→20:04)
[2022-11-24] MEDS: busPIRone 5 MG TAB PO SCH ×4 (09:00→20:02)
[2022-11-24] MEDS: ENOXAPARIN INJ 40 MG/0.4 ML SYR SQ SCH (09:01)
[2022-11-24] MEDS: POLYETHYLENE (MIRALAX) 17 GM PACK PO SCH ×2 (09:01→20:08)
[2022-11-24] MEDS: ASPIRIN 81 MG ECTAB PO SCH (09:01)
[2022-11-24] MEDS: FLUTICASONE/VILANTEROL 100/25MCG 14 PUFFS/INHALER INH SCH (09:04)
[2022-11-24] MEDS: IBUPROFEN 600 MG TAB PO PRN ×2 (09:07→17:12)
[2022-11-24] MEDS: TRIAMCINOLONE ACET 0.1% CR 80 GM TUBE EXT SCH ×2 (09:08→20:08)
[2022-11-24] MEDS: NYSTATIN OINT 15 GM TUBE EXT SCH ×2 (09:08→20:10)
[2022-11-24] MEDS: LANTUS PER UNIT CHARGE SQ SCH ×2 (10:06→20:29)
[2022-11-24] MEDS: INSULIN ASPART PER UNIT SC SCH ×4 (10:07→20:28)
--- NOTE | 2022-11-24 17:55 | Billing Data ---
Date of Service November 24, 2022 Coding Level of Care Code 93840 SUB INP/OBS CARE
[2022-11-24] MEDS: DOCUSATE SODIUM/SENNA 50/8.6MG TAB PO SCH (20:00)
[2022-11-24] MEDS: traZODone HCL 100 MG TAB PO SCH (20:03)
[2022-11-24] MEDS: DULoxetine HCL 60 MG CAP PO SCH (20:05)
[2022-11-24] MEDS: MONTELUKAST SODIUM 10 MG TABLET PO SCH (20:05)
[2022-11-25] MEDS: oxyCODONE HCL IR 5 MG TAB (IMMEDIATE RELEASE) PO PRN ×4 (00:04→14:33)
[2022-11-25] MEDS: ACETAMINOPHEN 325 MG TAB PO SCH ×2 (05:54→14:33)
--- NOTE | 2022-11-25 06:57 | Discharge Summary ---
Date of Service November 25, 2022 Admission HPI Per Admitting Provider Elza Vick is a 52-year-old female with history of poorly controlled diabetes, cirrhosis, hypertension and seizure disorder presenting with acute on chronic back pain. Patient with severe spinal stenosis. She was admitted to [facility] from 10/12/2022 - 10/23/2022 for severe back pain. She had an L3-L5 decompression and fusion performed on 10/20/[address] Sharpe. The surgery went well with no complications. [facility] on 10/23/2022 and stayed there through 11/02/2022. Per report, patient did well and participated in therapy. She was discharged home on 11/02/2022 and promptly returned to the hospital due to uncontrolled pain and falls at home. She stayed at [facility] until she was discharged home on 11/08/2022. Patient reports she has overall been doing fairly well until the last several days. She presents today with worsening left-sided leg pain which is "unbearable" as well as subjective weakness. Patient with ongoing back pain as well as right leg pain which is near her baseline. She reports that she had 3 controlled falls in the last 3 days which she believes is secondary to weakness in her left lower extremity. She denies fever, chills, acute trauma to her back. No additional complaints such as chest pain, cough, shortness of breath, abdominal pain, nausea, vomiting, diarrhea or constipation. She reports that she is eating well and moving her bowels without difficulty. No urinary complaints either. In the ER, she is afebrile, hemodynamically stable. MRI performed with results below. ER course: Dexamethasone, Ativan, Zofran Principal Diagnosis Low back pain, Lumbar radiculopathy, s/p lumbar decompression/fusion Discharge Exam General: A&Ox3. NAD. Cooperative. Obese. HEENT: Atraumatic, normocephalic. Pulm: CTAB A&P. -wheezes, -rales, -rhonchi. Symmetrical chest rise. No increase work of breathing. No respiratory distress. Cardiac: RRR, -mrg. Radial pulses intact and symmetrical. No LE edema. Abdominal: soft, non-tender, non-distended, BS x 4 Skin: warm, dry, no rash Discharge Data Allergies Allergy/AdvReac Type Severity Reaction Status Date / Time acetaminophen AdvReac Severe LIVER Verified 11/20/22 01:48 COMPLICATIONS cephalexin AdvReac Severe Vomiting Verified 11/20/22 01:48 levofloxacin [From Levaquin] AdvReac Intermediate Vomiting Verified 11/20/22 01:48 Consultations 11/20/22 01:10 ED Decision to Admit Stat 11/20/22 04:10 Consult Orthopedic Surgery Routine 11/21/22 07:00 Consult Pain Management Routine Ordered Studies Laboratory Results WBC 5.89 K/ul (4.8-10.8) 11/22/22 07:33 RBC 3.54 M/uL (4.20-5.40) L 11/22/22 07:33 Hgb 10.9 g/dl (12.0-16.0) L 11/22/22 07:33 Hct 32.5 % (37.0-47.0) L 11/22/22 07:33 MCV 91.8 fL (80.0-100.0) 11/22/22 07:33 MCH 30.8 pg (25.0-34.0) 11/22/22 07:33 MCHC 33.5 g/dL (32.0-36.0) 11/22/22 07:33 RDW Std Deviation 46.8 fL (36.4-46.3) H 11/22/22 07:33 RDW Coeff of Kelli 13.9 % (11.5-14.5) 11/22/22 07:33 Plt Count 137 K/uL (130-400) 11/22/22 07:33 MPV 11.1 fL (9.4-12.4) 11/22/22 07:33 Immature Gran % (Auto) 0.3 % 11/20/22 09:17 Neut % (Auto) 77.0 % 11/20/22 09:17 Lymph % (Auto) 19.3 % 11/20/22 09:17 Grainger % (Auto) 3.0 % 11/20/22 09:17 Eos % (Auto) 0.2 % 11/20/22 09:17 Baso % (Auto) 0.2 % 11/20/22 09:17 Neut # (Auto) 4.64 K/uL (1.40-6.50) 11/20/22 09:17 Lymph # (Auto) 1.16 K/uL (1.2-3.4) L 11/20/22 09:17 Grainger # (Auto) 0.18 K/uL (0.11-0.59) 11/20/22 09:17 Eos # (Auto) 0.01 K/uL (0-0.50) 11/20/22 09:17 Baso # (Auto) 0.01 K/uL (0-0.2) 11/20/22 09:17 Immature Gran # (Auto) 0.02 K/uL (0.01-0.20) 11/20/22 09:17 Sodium 137 mmol/L (136-145) 11/23/22 07:29 Potassium 4.0 mmol/L (3.5-5.1) 11/23/22 07:29 Chloride 105 mmol/L (98-107) 11/23/22 07:29 Carbon Dioxide 28 mmol/L (21-32) 11/23/22 07:29 Anion Gap 4 (3-11) 11/23/22 07:29 BUN 14 mg/dl (6-23) 11/23/22 07:29 Creatinine 0.62 mg/dl (0.6-1.2) 11/23/22 07:29 Est Cr Clr Drug Dosing 125.1 ml/min 11/23/22 07:29 Est GFR ( Amer) 118.5 ml/min 11/23/22 07:29 Est GFR (Non-Af Amer) 102.2 ml/min 11/23/22 07:29 BUN/Creatinine Ratio 22.6 (10-20) H 11/23/22 07:29 Glucose 348 mg/dl (70-99(Fasting)) H* 11/23/22 07:29 POC Glucose 241 mg/dl (70-99) H 11/24/22 20:07 Calcium 8.7 mg/dl (8.5-10.1) 11/23/22 07:29 Ionized Calcium 1.20 mmol/L (1.12-1.32) 11/20/22 09:17 Magnesium 1.8 mg/dl (1.7-2.4) 11/22/22 07:33 Total Bilirubin 0.3 mg/dl (0.2-1.0) 11/23/22 07:29 AST 12 U/L (13-39) L 11/23/22 07:29 ALT 12 U/L (7-52) 11/23/22 07:29 Alkaline Phosphatase 115 U/L (34-104) H 11/23/22 07:29 Total Protein 5.7 gm/dl (6.0-8.3) L 11/23/22 07:29 Albumin 3.0 gm/dl (3.4-5.0) L 11/23/22 07:29 Globulin 2.7 gm/dl (2.5-4.0) 11/23/22 07:29 Albumin/Globulin Ratio 1.1 (0.9-2) 11/23/22 07:29 Urine Color Yellow 11/19/22 23:50 Urine Appearance Clear (Clear) 11/19/22 23:50 Urine pH 6.5 (4.5-7.5) 11/19/22 23:50 Ur Specific [place] 1.007 (1.000-1.030) 11/19/22 23:50 Urine Protein Negative (Negative) 11/19/22 23:50 Urine Glucose (UA) Negative (Negative) 11/19/22 23:50 Urine Ketones Negative (Negative) 11/19/22 23:50 Urine Blood Negative (Negative) 11/19/22 23:50 Urine Nitrite Negative (Negative) 11/19/22 23:50 Urine Bilirubin Negative (Negative) 11/19/22 23:50 Urine Urobilinogen Negative (Negative) 11/19/22 23:50 Ur Leukocyte Esterase Negative (Negative) 11/19/22 23:50 SARS-CoV-2, RNA, NAAT NEGATIVE (NEGATIVE) 11/19/22 23:50 Impressions Lumbar Spine MRI 11/19/22 21:37 LUMBAR SPINE MRI HISTORY: severe pain, can't walk, right leg weak TECHNIQUE: Multiplanar multisequence MRI of the lumbar spine was performed without the use of contrast. COMPARISON: Lumbar spine CT 11/02/2022. Lumbar spine MRI 10/15/2022. FINDINGS: For the purpose of the report the L5-S1 disc space will be located on axial image 34 of 46.. Mild levoscoliosis again noted. There is posterior decompression and fusion from L3 through L5 with pedicle screws and rods. Mild disc space narrowing and disc desiccation at L5-S1. The conus terminates at the L1 level. There is a 7.0 x 1.9 x 1.2 cm loculated fluid collection at the laminectomy sites without significant mass effect along the thecal sac. There is a similar-appearing loculated fluid collection within the subcutaneous soft tissues of the lower lumbar region which measures 7.5 x 2.8 x 2.8 cm. These favor postoperative seromas or old hematomas. Secondary infection would be impossible to exclude by imaging but considered less likely. There is subcutaneous edema within the lumbar region. 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 This results in mass effect and rightward deviation of the sacral canal. L1-L2: No significant central canal or neural foraminal narrowing. L2-L3: No significant central canal or neural foraminal narrowing. L3-L4: No significant central canal narrowing due to the posterior decompression. Mild to moderate bilateral neural foraminal narrowing persists due to the disc bulge and facet hypertrophy. L4-L5: No significant central canal narrowing due to the posterior decompression. Mild to moderate bilateral neural foraminal narrowing is again noted. L5-S1: Broad-based posterior disc bulge with a left paracentral focal disc protrusion which abuts the transiting left S1 nerve roots. This is similar to the prior study. No significant neural foraminal narrowing. IMPRESSION: 1. Posterior decompression and fusion from L3 through L5 with pedicle screws and rods. No significant central canal narrowing at these levels due to the posterior decompression. 2. Loculated fluid collections within the laminectomy sites and subcutaneous soft tissues favor postoperative seromas/old hematomas. Secondary infection would be impossible to exclude by imaging but is considered less likely. 3. No change in the left paracentral focal disc protrusion at L5-S1 which abuts and displaces the transiting left S1 nerve roots. 4. Additional findings as described above. ACT 112: Negative or not required by law. Electronically signed by: Luis F Mixon M.D. 11/20/2022 8:36 AM Venous Doppler Study 11/20/22 10:35 LEFT LOWER EXTREMITY VENOUS DOPPLER HISTORY: Left leg swelling COMPARISON STUDY: None. FINDINGS: There is normal compressibility, flow, and augmentation within the left lower extremity deep venous system. IMPRESSION: No DVT within the left lower extremity. ACT 112: Negative or not required by law. Electronically signed by: Luis F Mixon M.D. 11/20/2022 11:43 AM Hospital Course (1) Acute lumbar radiculopathy: 52 yo female with longstanding history of lumbar pain in setting of severe spinal stenosis status post decompression and fusion L3-L5 performed by Dr. Sharpe on 10/20/2022.Patient was discharged to rehab on 10/23/2022 until 11/02 when she returned to the hospital with worsening pain and a fall.She was discharged home again on 11/08. Returns this admission with worsening back pain and left-sided leg pain and weakness. Low Back Pain Lumbar radiculopathy MRI lumbar spine with fluid collections described at the surgical site.Possibly seromas, hematomas versus abscesses. - Ortho spine consulted: recommendations: PT/OT. Conservative management - PT/OT recommended rehab. Accepted to [facility] @ [facility]. - Pain regimen in hospital: regimen increased to more frequent dosing of Oxycodone 5-10mg q4h prn (10mg for pain 7-10 severity). Dilaudid 0.25mg IV q6h prn for breakthrough pain. Scheduled Tylenol, prn Flexeril, prn ibuprofen, prn Lidoderm patch, gabapentin. - Tylenol adverse reaction noted. Tolerating at the moment. AST, ALT wnl. - Pain management consulted: continue current pain regimen, no role for intervention at this time - OMT performed (soft tissue, muscle energy) for additional relief - Upon discharge, would return to home regimen for pain management. Left lateral ankle rash,resolved - Acute, without known trigger - Exam most consistent w/ irritant contact dermatitis vs allergic contact dermatitis. Topical triamcinolone 0.01% BID, d/c'd upon discharge. Type 2 diabetes mellitus A1c 8.9 10/15/22, previous A1Cs 10+ - Received a dose of dexamethasone in the ER. - Fluctuating outpatient regimen: -titrated lantus dose inpatient to 45units bid with sliding scale which I would continue for now until seen by PCP -also on trulicty. Okay to hold if not available at [facility] or patient can bring in her own pen. Normocytic anemia Baseline ~11s. 14.2 at admission, 11.2 subsequent. No symptoms. Dyslipidemia - Not on statin. Address as outpatient with PCP. Seizure disorder - Continue Keppra 1000 mg p.o. twice daily Hypertension Normotensive here. Not on medication. Depression and anxiety - continue home buspirone and duloxetine Chronic obstructive pulmonary disease - continue home Fluticasone/Salmeterol, Singulair and PRN Albuterol Chronic narcotic use - Monitor use. (Note: chronically uses Oxycodone 5-10mg PO QID) GERD - continue home Protonix Intertrigo, improving -present under R breast -cont. nystatin cream until resolution (2) Uncontrolled type 2 diabetes mellitus: (3) Dyslipidemia: (4) Seizure disorder: (5) Hypertension: (6) Depression: (7) Chronic obstructive pulmonary disease: (8) Rash: (9) Ankle swelling: (10) Narcotic abuse: Total Time Total Time Spent Total Time Spent (In Minutes): <30 Discharge Plan Discharge Items Patient Disposition: Transfer Long Term Fac Reason For Visit: ONGOING BACK PAIN Discharge Diagnosis: Low back pain, Lumbar radiculopathy, s/p lumbar decompression/fusion Condition on Discharge: Good Activity: Per Instructions section Non-emergency contact: Primary Care Provider Call non-emergency contact if: you have any medication questions Follow-up/Referrals: Aneudy Pérez MD [Primary Care Provider] - Diet: Carb Consistent or DM2 Addtl Attending Provider Instructions: 52 yo female with longstanding history of lumbar pain in setting of severe spinal stenosis status post decompression and fusion L3-L5 performed by Dr. Sharpe on 10/20/2022.Patient was discharged to rehab on 10/23/2022 until 11/02 when she returned to the hospital with worsening pain and a fall. She was discharged home again on 11/08. Returns this admission with worsening back pain and left-sided leg pain and weakness. Low Back Pain Lumbar radiculopathy MRI lumbar spine with fluid collections described at the surgical site.Possibly seromas, hematomas versus abscesses. - Ortho spine consulted: recommendations: PT/OT. Conservative management - PT/OT recommended rehab. Accepted to [facility] @ [facility]. - Pain regimen in hospital: regimen increased to more frequent dosing of Oxycodone 5-10mg q4h prn (10mg for pain 7-10 severity). Dilaudid 0.25mg IV q6h prn for breakthrough pain. Scheduled Tylenol, prn Flexeril, prn ibuprofen, prn Lidoderm patch, gabapentin. - Tylenol adverse reaction noted. Tolerating at the moment. AST, ALT wnl. - Pain management consulted: continue current pain regimen, no role for intervention at this time - OMT performed (soft tissue, muscle energy) for additional relief - Upon discharge, would return to home regimen for pain management. Left lateral ankle rash,resolved - Acute, without known trigger - Exam most consistent w/ irritant contact dermatitis vs allergic contact dermatitis. Topical triamcinolone 0.01% BID, d/c'd upon discharge. Type 2 diabetes mellitus A1c 8.9 10/15/22, previous A1Cs 10+ - Received a dose of dexamethasone in the ER. - Fluctuating outpatient regimen: -titrated lantus dose inpatient to 45units bid with sliding scale which I would continue for now until seen by PCP -also on trulicty. Okay to hold if not available at [facility] or patient can bring in her own pen. Normocytic anemia Baseline ~11s. 14.2 at admission, 11.2 subsequent. No symptoms. Dyslipidemia - Not on statin. Address as outpatient with PCP. Seizure disorder - Continue Keppra 1000 mg p.o. twice daily Hypertension Normotensive here. Not on medication. Depression and anxiety - continue home buspirone and duloxetine Chronic obstructive pulmonary disease - continue home Fluticasone/Salmeterol, Singulair and PRN Albuterol Chronic narcotic use - Monitor use. (Note: chronically uses Oxycodone 5-10mg PO QID) GERD - continue home Protonix Intertrigo, improving -present under R breast -cont. nystatin cream until resolution Pending Studies at Discharge: No Stand-Alone Forms: My [facility] Skilled Items Patient informed of condition?: Yes DNR: No Discharge Level of Care: Skilled Communicable Disease: No Discharge Prognosis: Stable Lines: None Urinary Catheter: No Medications and DC Order Prescriptions: Continued cyclobenzaprine 10 mg Tablet 10 mg PO BID PRN (Reason: Muscle Spasm) Qty: 0 albuterol sulfate [Ventolin HFA] 90 mcg/actuation Hfa Aerosol Inhaler 2 puff INHALATION Q4H PRN (Reason: Shortness Of Breath Or Wheezing) Qty: 0 Trulicity 4.5 mg/0.5 mL pen injector 4.5 mg SUBCUT WK Qty: 2 1RF Rx Instructions: TUESDAYS-- montelukast [Singulair] 10 mg tablet 10 mg PO HS fluticasone propion-salmeterol [AirDuo RespiClick] 232-14 mcg/actuation aerosol powdr breath activated 2 inh inhalation BID PRN (Reason: Shortness Of Breath) ibuprofen 800 mg tablet 800 mg PO TID PRN (Reason: Pain) promethazine 25 mg tablet 25 mg PO Q6H PRN (Reason: Nausea) aspirin 81 mg Tablet,Delayed Release (Dr/Ec) 81 mg PO QAM cyclosporine [Restasis] 0.05 % Dropperette 2 drp OPHTHALMIC (EYE) Q12H duloxetine 60 mg capsule,delayed release(DR/EC) 60 mg PO HS buspirone 5 mg tablet 5 mg PO QID Trulicity 1.5 mg/0.5 mL pen injector 1.5 mg SUBCUT UD nystatin [Nyamyc] 100,000 unit/gram powder 1 applic TOPICAL UD sennosides-docusate sodium [Senokot-S] 8.6-50 mg Tablet 2 tab PO HS Qty: 0 0RF insulin aspart U-100 [Novolog FlexPen U-100 Insulin] 100 unit/mL (3 mL) insulin pen 8 unit SC TID Qty: 15 0RF Rx Instructions: plus sliding scale insulin glargine [Lantus Solostar U-100 Insulin] 100 unit/mL (3 mL) insulin pen 35 unit subcut BID Qty: 1 0RF levetiracetam 1,000 mg tablet 1,000 mg PO BID acetaminophen 325 mg Tablet 650 mg PO TID 14 Days Qty: 84 0RF oxycodone 5 mg tablet 10 mg PO QID PRN (Reason: pain) Qty: 30 0RF Rx Instructions: 1 tab for moderate pain, 2 for severe pain diclofenac sodium 1 % Gel 4 g TOPICAL QID PRN (Reason: Pain) albuterol sulfate 2.5 mg /3 mL (0.083 %) solution for nebulization 2.5 mg inhalation Q6 PRN (Reason: Wheezing) famotidine 40 mg tablet 40 mg PO BID pantoprazole 20 mg tablet,delayed release (DR/EC) 20 mg PO QAM lidocaine 5 % adhesive patch,medicated 1 patch transdermal DAILY PRN (Reason: Pain) fluticasone propionate [Flonase Allergy Relief] 50 mcg/actuation spray,suspension 1 spray INTRANASAL DAILY PRN (Reason: Congestion) trazodone 100 mg tablet 100 mg PO HS polyethylene glycol 3350 [Miralax] 17 gram/dose Powder 17 g PO BID gabapentin 800 mg tablet 800 mg PO TID ondansetron 4 mg tablet,disintegrating 4 mg PO Q6H PRN (Reason: nausea and vomiting) Qty: 12 0RF Discharge Orders: Discharge Order (Routine); Ordered 11/25/22 Ordered By: Cody Nuñez Admission Data Admit Date/Time: 11/22/22 13:03 Attending Provider: Mike Canchola Admit Provider: Shavonne Montenegro Primary Care Provider: Aneudy Pérez Other Providers: Shavonne Montenegro ; Kyaw Sharpe ; [facility] ; Pete Ordoñez ; [place] Other Interventions: Discharge Summary Assessment (RN) Last Done: 11/25/22 15:27 Supervising Physician Co-Signing Physician Notes I personally examined the patient and verified all brennan points of history and exam, discussed case, and agree with decision making with Dr Nuñez For SNF today. Patient expressed some concerns about her sugarsbut after we discussed, she and I both agreed we probably did not have to tighten up carb coverageparticularly at dinnertime. And we also discussed that given how difficult it can be to sometimes get an SNF bed, I would hate to run the risk of losing her opportunity for subacute rehab if we stalled for transfer until tomorrow. vitals noted nad heent nc at mmm breathing unlabored no accessory muscles good effort, no focal neuro deficits. LBP, weakness - continue med management, PT/OT eval and treat, rehab denied, snf approved -stable to go today LBP/Lspine and pelvic somatic dysfunction - OMT done earlier in stay - highly likely would benefit from ongoing OMT as outpt Uncontrolled diabetestighter carb coverage at meals. Resident Activity Tracking Resident Involvement: Resident Care Provided Care Provided: Adult Hospital Medicine
[2022-11-25] MEDS: LANTUS PER UNIT CHARGE SQ SCH (08:29)
[2022-11-25] MEDS: IBUPROFEN 600 MG TAB PO PRN (08:38)
[2022-11-25] MEDS: INSULIN ASPART PER UNIT SC SCH ×2 (09:21→12:46)
[2022-11-25] MEDS: busPIRone 5 MG TAB PO SCH ×2 (09:54→13:34)
[2022-11-25] MEDS: FAMOTIDINE 40 MG TABLET PO SCH (09:54)
[2022-11-25] MEDS: levETIRAcetam 500 MG TAB PO SCH (09:54)
[2022-11-25] MEDS: PANTOprazole 40 MG TAB PO SCH (09:54)
[2022-11-25] MEDS: GABAPENTIN 800 MG TAB PO SCH ×2 (09:54→13:34)
[2022-11-25] MEDS: ASPIRIN 81 MG ECTAB PO SCH (09:54)
[2022-11-25] MEDS: FLUTICASONE/VILANTEROL 100/25MCG 14 PUFFS/INHALER INH SCH (09:55)
[2022-11-25] MEDS: ENOXAPARIN INJ 40 MG/0.4 ML SYR SQ SCH (09:55)
[2022-11-25] MEDS: NYSTATIN OINT 15 GM TUBE EXT SCH (09:56)
[2022-11-25] MEDS: POLYETHYLENE (MIRALAX) 17 GM PACK PO SCH (09:57)
[2022-11-25] MEDS: TRIAMCINOLONE ACET 0.1% CR 80 GM TUBE EXT SCH (09:58)
[2022-11-25] MEDS ORDERED: LANTUS PER UNIT CHARGE SQ ONE (10:45)
--- NOTE | 2022-11-25 20:51 | Billing Data ---
Date of Service November 25, 2022 Coding Level of Care Code HOSP INP/OBS DISCH 30 MIN/LESS
== END 2022-11-25 16:21 | DRG 552 ==
LOC: ED 19:23 → 2W 19:23 → SUATTDRO 11-20 01:46 → 2W 11-20 03:14 → 3W 11-24 02:41

== ENCOUNTER 2022-12-08 18:18 | Observation (INO) ==
[2022-12-08] MEDS ORDERED: SODIUM CHLORIDE 0.9% 500 ML IV STA (18:38)
[2022-12-08] MEDS ORDERED: MoRPHine SULFATE 4 MG/ML 1 ML CARP\\VIAL IV STA (18:38)
[2022-12-08] MEDS ORDERED: ONDANSETRON INJ 2 MG/ML 2 ML VIAL IV STA (18:38)
--- NOTE | 2022-12-08 18:43 | Emergency Department Note ---
Impression & Plan Left leg weakness ADMIT ED Provider Note HPI: The patient is a 52-year-old female with history of previous surgery on the lumbar spine, presents emergency department with a chief complaint of left lower back pain and left lower extremity pain and weakness. Patient states this has been ongoing for about the past 2 and half weeks. Patient had a lumbar decompression done on 10/[address] Sharpe, she states that she went to rehab and she has been over the past several weeks, she was doing well for a little while and then over the past 2-1/2 weeks she has had some increasing weakness in the left lower extremity. This has been a chronic issue for her. She states it has been worse than usual over the past 2 weeks however. Patient states she is getting some left lower back pain at times that radiates down her left side. MRI imaging was performed several weeks ago here in the ED, did show evidence of broad-based disc bulge towards the left side at the level of L5-S1. On arrival here to the ED the patient is in no acute distress, denies any saddle anesthesia , denies any issues with urinary incontinence or retention, patient does have some left-lower weakness on my exam but otherwise she is nontoxic-appearing. ROS: - Per HPI *Outpatient medications and allergy history reviewed. *Pertinent external medical records reviewed. PE: General: Alert HEENT: Normocephalic, trachea midline Eyes: Extraocular eye movement is intact, no scleral erythema Pulmonary: Clear to auscultation bilaterally, no wheezing Cardio: Regular rate and rhythm GI: Abdomen is soft to palpation : No suprapubic tenderness MSK: No evidence of trauma or malformation of the extremities, no edema, there is a palpable dorsalis pedis pulse bilaterally on palpation Skin: No evidence of rash Neuro: Alert, there is some weakness with dorsiflexion and plantarflexion in the left lower extremity in comparison to the right, sensory function is otherwise intact Psychiatric: Cooperative color television console monitor: (As interpreted by myself): - An order was placed for continuous cardiac monitoring - Patient was noted to be in sinus rhythm with a rate of 85 Interventions provided in ED: -IV Solu-Medrol, IV morphine, IV Zofran, IV fluid Differential Diagnosis: Cauda equina syndrome, spinal epidural abscess, disc herniation, spinal stenosis, degenerative disc disease, amongst other potential pathologies. Medical Decision Making: The patient is a 52-year-old female with history of spinal stenosis, previous lumbar surgery in October [address] Sharpe of spinal surgery, presents the emergency department with some acute worsening of chronic left lower extremity w eakness. Patient does have a history of lumbar disc disease, MRI from November 2022 was reviewed, does show evidence of a broad-based disc bulge at the L5-S1 level. On my examination, patient does not have any red flag findings for cauda equina syndrome, she specifically denies any saddle anesthesia, denies any issues with urinary incontinence or retention, denies any problems with her bowel movements. She has not had any recent fevers, therefore low suspicion for cauda equina syndrome or spinal epidural abscess. Given the patient's history and MRI imaging, I do suspect that her weakness and transient shooting pains down her left lower extremity are likely secondary to the disc herniation on her MRI. I did discuss the patient's presentation with on-call spinal surgery, Dr. Sharpe, he is familiar with the patient. Recommends if the patient is having some ambulatory dysfunction and wants to be admitted, that she be admitted to the medicine service given her multiple comorbidities. He did not feel at this time that there was any emergent surgical pathology given the patient's history and recent MRI. He is in agreement for routine consultation of the patient is to be admitted. I did review the patient's lab work which does not show any critical findings, on my reevaluation the patient is resting comfortably in bed, states she does not feel comfortable going home and would like to be admitted for orthopedic consultation, PT/OT, and discussion about possible placement. Patient was therefore discussed with the on-call hospitalist service, Dr. Ramirez, and the patient was placed for admission in stable condition. Consultants: -Orthopedic surgery, Dr. Sharpe -Hospitalist service, Dr. Ramirez Disposition discussion held by myself with: Patient Diagnosis: 1. Left lower extremity weakness, acute on chronic 2. Lumbar disc disease/disc herniation, L5/S1 level 3. Acute on chronic lower back pain with radicular symptoms, left-sided 4. Hyperglycemia without DKA, patient with known diabetes 5. Ambulatory dysfunction, acute on chronic Disposition: Admission Leo Burton DO Emergency Medicine Past Med/Surg History Medical History (Updated 12/08/22 @ 20:13 by Leo Burton DO) Anxiety Brain cyst Chronic generalized abdominal pain Chronic low back pain with left-sided sciatica Chronic obstructive pulmonary disease Depression Hypertension Hypokalemia Hypomagnesemia Hyponatremia Insulin dependent diabetes mellitus Left hand paresthesia Narcotic abuse Ongoing, documented by PCP since 2013 Neurogenic claudication due to lumbar spinal stenosis Obesity Opiate dependence Opioid abuse Periapical abscess with facial involvement Pulmonary embolism Reports was anticoagulation x 60 days, not on chronic anticoagulation Syncope Thrombocytopenia Tinea corporis Tinea cruris Uncontrolled type 2 diabetes mellitus Surgical History History of laparoscopic cholecystectomy Hx of oral surgery (02/15/20) Acute right submandibular, submental space infection with floor of mouth infection caused by infected lower teeth. Dr. Rios 02/15/20 S/P dilation and curettage S/P laparoscopic hernia repair S/P laparoscopic procedure ovarian cyst surgery Family History Mother , 73 Heart disease Cancer small cell ca lung caused at 73 Father Skin cancer Brother No problems noted. Sister No problems noted. Grandmother (Maternal) , 48 Heart disease T2DM (type 2 diabetes mellitus) Grandmother (Paternal) , 83 Heart disease Kidney disease Uncle T2DM (type 2 diabetes mellitus) Other Diabetes Obesity Denies family history of Ovarian cancer Breast cancer Colorectal cancer Uterine cancer Social History Smoking Status: Never smoker Tobacco Type: Cigarettes Cigarettes Per Day: 5; Second Hand Exposure: Yes; Hx Alcohol Use: No Hx Substance Use: No Preferred Language: Georgian Communication Ability: Effective Visual Impairment: No Limitations Hearing Ability: Normal Tractor Operator Laser Leveling Required: No Beliefs That Will Affect Care: None marital status: Current Living Situation: Alone Current Living Situation Comment: Lives with son (15yo) current occupational status: unemployed 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 How many Children do You have: 1 Feels Safe at Home: Yes Assistive Devices: Walker and Wheelchair Allergies Allergies Allergy/AdvReac Type Severity Reaction Status Date / Time acetaminophen AdvReac Severe LIVER Verified 12/08/22 20:05 COMPLICATIONS cephalexin AdvReac Severe Vomiting Verified 12/08/22 20:05 levofloxacin [From Levaquin] AdvReac Intermediate Vomiting Verified 12/08/22 20:05 Home Meds Home Medications Medication Instructions Recorded Confirmed cyclobenzaprine 10 mg tablet 10 mg PO BID PRN Muscle Spasm ##0 11/18/17 11/20/22 albuterol sulfate 90 mcg/actuation 2 puff inhalation Q4H PRN 02/10/18 11/20/22 aerosol inhaler (Ventolin HFA) Shortness Of Breath Or Wheezing ##0 ibuprofen 800 mg tablet 800 mg PO TID PRN Pain 10/24/19 11/20/22 promethazine 25 mg tablet 25 mg PO Q6H PRN Nausea 10/24/19 11/20/22 fluticasone 232 mcg-salmeterol 14 2 inh inhalation BID PRN Shortness 08/21/20 11/20/22 mcg/actuation breath activated Of Breath powdr (AirDuo RespiClick) montelukast 10 mg tablet 10 mg PO HS 09/01/20 11/20/22 (Singulair) aspirin 81 mg tablet,delayed 81 mg PO QAM 10/28/20 11/20/22 release cyclosporine 0.05 % eye drops in a 2 drp ophthalmic (eye) Q12H 04/17/21 11/20/22 dropperette (Restasis) diclofenac sodium 1 % topical gel 4 g topical QID PRN Pain 07/20/21 11/20/22 albuterol sulfate 2.5 mg/3 mL 2.5 mg inhalation Q6 PRN Wheezing 01/19/22 11/20/22 (0.083 %) solution for nebulization famotidine 40 mg tablet 40 mg PO BID 01/19/22 11/20/22 fluticasone propionate 50 1 spray intranasal DAILY PRN 01/19/22 11/20/22 mcg/actuation nasal Congestion spray,suspension (Flonase Allergy Relief) lidocaine 5 % topical patch 1 patch transdermal DAILY PRN Pain 01/19/22 11/20/22 pantoprazole 20 mg tablet,delayed 20 mg PO QAM 01/19/22 11/20/22 release polyethylene glycol 3350 17 17 g PO BID 01/29/22 11/20/22 gram/dose oral powder (Miralax) trazodone 100 mg tablet 100 mg PO HS 01/29/22 11/20/22 duloxetine 60 mg capsule,delayed 60 mg PO HS 03/12/22 11/20/22 release gabapentin 800 mg tablet 800 mg PO TID 04/05/22 11/20/22 buspirone 5 mg tablet 5 mg PO QID 07/30/22 11/20/22 dulaglutide 1.5 mg/0.5 mL 1.5 mg subcut UD 10/12/22 11/20/22 subcutaneous pen injector (TrNuggetaity) nystatin 100,000 unit/gram topical 1 applic topical UD 10/12/22 11/20/22 powder ([facility]) levetiracetam 1,000 mg tablet 1,000 mg PO BID 11/02/22 11/20/22 Previous Rx's Medication Instructions Recorded ondansetron 4 mg disintegrating 4 mg PO Q6H PRN nausea and 08/11/22 tablet vomiting #12 tabs dulaglutide 4.5 mg/0.5 mL 4.5 mg (0.5 mL) subcut WK #2 mL 10/06/22 subcutaneous pen injector (TrNuggetaity) insulin aspart U-100 100 unit/mL 8 unit (0.08 mL) SC TID #15 mL 10/23/22 (3 mL) subcutaneous pen (Novolog FlexPen U-100 Insulin aspart) insulin glargine 100 unit/mL (3 35 unit (0.35 mL) subcut BID #1 mL 10/23/22 mL) subcutaneous pen (Lantus Solostar U-100 Insulin) sennosides 8.6 mg-docusate sodium 2 tab PO HS #0 tabs 10/23/22 50 mg tablet (Senokot-S) oxycodone 5 mg tablet 10 mg PO QID PRN pain #30 tabs 11/08/22 Results & Data (ED) Vital Signs Vital Signs - 24 hr 12/08/22 18:26 12/08/22 18:39 12/08/22 19:24 Temperature 37.2 C Temperature Source Oral Pulse Rate 92 H 92 H 88 Pulse Rhythm Regular Regular Pulse Strength Normal Respiratory Rate 20 20 Respiratory Effort / Characteristics Non-Labored Spontaneous Respiratory Depth Normal Respiratory Pattern Regular Blood Pressure 110/76 Blood Pressure Mean 87 Blood Pressure Position Sitting Pulse Oximetry 100 100 Oxygen Delivery Method Room Air Room Air Sepsis Recent Fever Within 48 Hours No Sepsis New/Unexplained Change in Mental Status No Sepsis Action Taken by Nursing No Action Required Laboratory Data 12/08/22 18:44 12/08/22 18:44 Lab Results 12/08/22 12/08/22 Range/Units 18:44 18:44 WBC 6.95 (4.8-10.8) K/ul RBC 4.26 (4.20-5.40) M/uL Hgb 12.6 (12.0-16.0) g/dl Hct 37.3 (37.0-47.0) % MCV 87.6 (80.0-100.0) fL MCH 29.6 (25.0-34.0) pg MCHC 33.8 (32.0-36.0) g/dL RDW Std Deviation 44.0 (36.4-46.3) fL RDW Coeff of Kelli 13.9 (11.5-14.5) % Plt Count 226 (130-400) K/uL MPV 10.4 (9.4-12.4) fL Immature Gran % (Auto) 0.4 % Neut % (Auto) 56.8 % Lymph % (Auto) 30.2 % Loving % (Auto) 7.8 % Eos % (Auto) 4.5 % Baso % (Auto) 0.3 % Neut # (Auto) 3.95 (1.40-6.50) K/uL Lymph # (Auto) 2.10 (1.2-3.4) K/uL Loving # (Auto) 0.54 (0.11-0.59) K/uL Eos # (Auto) 0.31 (0-0.50) K/uL Baso # (Auto) 0.02 (0-0.2) K/uL Immature Gran # (Auto) 0.03 (0.01-0.20) K/uL Sodium 140 (136-145) mmol/L Potassium 4.0 (3.5-5.1) mmol/L Chloride 110 H (98-107) mmol/L Carbon Dioxide 23 (21-32) mmol/L Anion Gap 7 (3-11) BUN 7 (6-23) mg/dl Creatinine 0.54 L (0.6-1.2) mg/dl Est Cr Clr Drug Dosing 144.5 ml/min Est GFR ( Amer) 124.0 ml/min Est GFR (Non-Af Amer) 107.0 ml/min BUN/Creatinine Ratio 13.0 (10-20) Glucose 271 H (70-99(Fasting)) mg/dl Calcium 9.5 (8.5-10.1) mg/dl Total Bilirubin 0.4 (0.2-1.0) mg/dl AST 18 (13-39) U/L ALT 11 (7-52) U/L Alkaline Phosphatase 122 H (34-104) U/L Total Protein 6.9 (6.0-8.3) gm/dl Albumin 3.6 (3.4-5.0) gm/dl Globulin 3.3 (2.5-4.0) gm/dl Albumin/Globulin Ratio 1.1 (0.9-2) Lipase 7 L (11-82) U/L Administered Medications Discontinued Medications Sodium Chloride (Nss) 500 mls @ 999 mls/hr IV .Q31M STA Stop: 12/08/22 19:08 Last Infusion: 12/08/22 19:26 Dose: 0 mls/hr Documented By: Admin: 12/08/22 18:46 Dose: 999 mls/hr Documented By: AFSHAN Methylprednisolone (Methylprednisolone 125 Mg/2 Ml Vial) 125 mg IV NOW STA Stop: 12/08/22 19:38 Last Admin: 12/08/22 19:53 Dose: 125 mg Documented By: AWILDA Morphine Sulfate (Morphine Sulfate 4 Mg/Ml 1 Ml Carp\Vial) 4 mg IV NOW STA Stop: 12/08/22 18:39 Last Admin: 12/08/22 18:46 Dose: 4 mg Documented By: AFSHAN Ondansetron HCl (Ondansetron Inj 2 Mg/Ml 2 Ml Vial) 4 mg IV NOW STA Stop: 12/08/22 18:39 Last Admin: 12/08/22 18:46 Dose: 4 mg Documented By: AFSHAN Discharge Plan Visit Data Chief Complaint: Back Injury/Pain Stated Complaint: LEFT SIDED BACK PAIN ED Provider: Leo Burton Discharge Problem: Left leg weakness Patient Disposition: Admitted As Inpatient Forms Stand Alone Forms: [facility] Prescriptions Prescriptions: No Action cyclobenzaprine 10 mg Tablet 10 mg PO BID PRN (Reason: Muscle Spasm) Qty: 0 albuterol sulfate [Ventolin HFA] 90 mcg/actuation Hfa Aerosol Inhaler 2 puff INHALATION Q4H PRN (Reason: Shortness Of Breath Or Wheezing) Qty: 0 Trulicity 4.5 mg/0.5 mL pen injector 4.5 mg SUBCUT WK Qty: 2 1RF Rx Instructions: TUESDAYS-- montelukast [Singulair] 10 mg tablet 10 mg PO HS fluticasone propion-salmeterol [AirDuo RespiClick] 232-14 mcg/actuation aerosol powdr breath activated 2 inh inhalation BID PRN (Reason: Shortness Of Breath) ibuprofen 800 mg tablet 800 mg PO TID PRN (Reason: Pain) promethazine 25 mg tablet 25 mg PO Q6H PRN (Reason: Nausea) aspirin 81 mg Tablet,Delayed Release (Dr/Ec) 81 mg PO QAM cyclosporine [Restasis] 0.05 % Dropperette 2 drp OPHTHALMIC (EYE) Q12H duloxetine 60 mg capsule,delayed release(DR/EC) 60 mg PO HS buspirone 5 mg tablet 5 mg PO QID Trulicity 1.5 mg/0.5 mL pen injector 1.5 mg SUBCUT UD nystatin [Nyamyc] 100,000 unit/gram powder 1 applic TOPICAL UD sennosides-docusate sodium [Senokot-S] 8.6-50 mg Tablet 2 tab PO HS Qty: 0 0RF insulin aspart U-100 [Novolog FlexPen U-100 Insulin] 100 unit/mL (3 mL) insulin pen 8 unit SC TID Qty: 15 0RF Rx Instructions: plus sliding scale insulin glargine [Lantus Solostar U-100 Insulin] 100 unit/mL (3 mL) insulin pen 35 unit subcut BID Qty: 1 0RF levetiracetam 1,000 mg tablet 1,000 mg PO BID oxycodone 5 mg tablet 10 mg PO QID PRN (Reason: pain) Qty: 30 0RF Rx Instructions: 1 tab for moderate pain, 2 for severe pain diclofenac sodium 1 % Gel 4 g TOPICAL QID PRN (Reason: Pain) albuterol sulfate 2.5 mg /3 mL (0.083 %) solution for nebulization 2.5 mg inhalation Q6 PRN (Reason: Wheezing) famotidine 40 mg tablet 40 mg PO BID pantoprazole 20 mg tablet,delayed release (DR/EC) 20 mg PO QAM lidocaine 5 % adhesive patch,medicated 1 patch transdermal DAILY PRN (Reason: Pain) fluticasone propionate [Flonase Allergy Relief] 50 mcg/actuation spray,suspension 1 spray INTRANASAL DAILY PRN (Reason: Congestion) trazodone 100 mg tablet 100 mg PO HS polyethylene glycol 3350 [Miralax] 17 gram/dose Powder 17 g PO BID gabapentin 800 mg tablet 800 mg PO TID ondansetron 4 mg tablet,disintegrating 4 mg PO Q6H PRN (Reason: nausea and vomiting) Qty: 12 0RF Referrals Referrals: Regulo Vazquez [Non-Staff] -
[2022-12-08 19:07] LABS: Basophils # (auto) 0.02 K/uL (0-0.2); Basophils % (auto) 0.3 %; Eosinophils # (auto) 0.31 K/uL (0-0.50); Eosinophils % (auto) 4.5 %; Hematocrit (blood only) 37.3 % (37.0-47.0); Hemoglobin 12.6 g/dl (12.0-16.0); Immature Granulocytes # (auto) 0.03 K/uL (0.01-0.20); Immature Granulocytes % (auto) 0.4 %; Lymphocytes % (auto) 30.2 %; Mean Corpuscular Hemoglobin 29.6 pg (25.0-34.0); Mean Corpuscular Hgb Conc 33.8 g/dL (32.0-36.0); Mean Corpuscular Volume 87.6 fL (80.0-100.0); Mean Platelet Volume 10.4 fL (9.4-12.4); Monocytes # (auto) 0.54 K/uL (0.11-0.59); Monocytes % (auto) 7.8 %; Neutrophils # (auto) 3.95 K/uL (1.40-6.50); Neutrophils % (auto) 56.8 %; Platelet Count 226 K/uL (130-400); RDW Coefficient of Variation 13.9 % (11.5-14.5); Red Blood Count 4.26 M/uL (4.20-5.40); White Blood Count 6.95 K/ul (4.8-10.8)
[2022-12-08 19:32] LABS: Albumin Globulin Ratio 1.1 (0.9-2); Albumin Level 3.6 gm/dl (3.4-5.0); Bilirubin,Total 0.4 mg/dl (0.2-1.0); Calcium 9.5 mg/dl (8.5-10.1); Creatinine Clr Calc Pharmacy 144.5 ml/min; Globulin 3.3 gm/dl (2.5-4.0); Total Protein 6.9 gm/dl (6.0-8.3)
[2022-12-08] MEDS ORDERED: methylPREDNISolone 125 MG/2 ML VIAL IV STA (19:37)
--- NOTE | 2022-12-08 20:31 | History & Physical Report ---
Date of Service December 08, 2022 Assessment & Plan (1) Chronic low back pain with left-sided sciatica: Plan: Patient is a 52yo female with PMHx of DM2, cirrhosis, HTN, seizure disorder, and severe spinal stenosis presenting with acute on chronic back pain and LLE pain /weakness. Acute on chronic left low back pain with left-sided sciatica - MRI spine from 11/19/22 reviewed. No indication for repeat MRI at this time. - Admit with the following pain regimen (regimen reviewed with patient as this regimen provided significant benefit during most recent hospitalization): - Oxycodone 5mg (pain 4,5,6) - 10mg (pain 7-10) po TID prn; patient is on oxycodone 5mg po TID prn at home - Dilaudid 0.25mg IV q6hr prn for breakthrough pain - Tylenol 325mg po q4h to be used in conjunction with oxycodone prn - Continue home cyclobenzaprine 10mg po BID prn - Continue home duloxetine 60mg po qhs - Continue home gabapentin 800mg po TID - Continue home ibuprofen 600mg po TID - continue home lidoderm patch - Zofran and Phenergan (on both at home) - Heating pad prn - PT/OT evaluations - Fall precautions - Spine/ortho, Dr. Sharpe, consulted Type 2 DM - Blood glucose is 271 on admission - She did receive Solu-medrol in the ED - Hold home Trulicity - Based on recent hospital discharge insulin requirements, will start with regimen of Lantus 45 units BID with ISS Seizure Disorder - Continue home Keppra 1000mg po BID Depression and Anxiety - Continue home buspirone 5mg po QID and duloxetine 60mg po qhs - Continue home trazodone 100mg po qhs COPD - Stable. No acute concerns or signs of exacerbation. No cough, SOB, or wheezing. - Continue home fluticasone/salmeterol, singulair, and prn albuterol Chronic narcotic use - Pain regimen as noted above under problem #1 - Continue to monitor use GERD - Continue home famotidine and protonix Dyslipidemia - Documented at prior hospitalization. - Not on a statin at this time. - Encourage patient to discuss as outpatient with PCP MONIQUE: NPO at midnight pending ortho evaluation Code status: Full code Dispo: admit to medical (2) Weakness: (3) Depression: (4) Anxiety: (5) Uncontrolled type 2 diabetes mellitus: (6) Opiate dependence: (7) Left leg weakness: (8) History of lumbar surgery: (9) Ambulatory dysfunction: (10) Dyslipidemia: (11) Seizure disorder: (12) Chronic obstructive pulmonary disease: (13) Hypertension: History of Present Illness Primary Care Provider: Aneudy Pérez MD Patient is a 52yo female with PMHx of DM2, cirrhosis, HTN, seizure disorder, and severe spinal stenosis presenting with acute on chronic back pain and LLE pain/weakness. Patient has had multiple recent hospitalizations associated with her back pain. She was admitted at [facility] from 10/12/22 to 10/23/22 for severe back pain and during that hospitalization, on 10/20/22, she had an L3-L5 decompression and fusion performed by Dr. Sharpe w/ ortho-spine. She was discharged to inpatient rehab on 10/23/22. She subsequently returned to [facility] on 11/02/22, the day that she was discharged from inpatient rehab, due to uncontrolled pain and a fall; she was admitted 11/02/22-11/08/22 and discharged home with home health support. Patient returned again on 11/19/22 for worsening low back pain and R leg weakness; admitted 11/20/22-11/25/22 and discharged to [facility]. Patient states that after discharge from [facility] about 1.5 weeks ago, she was doing well and ambulating w/o assistive device. However, she has had recurrent progressive left low back pain with left lower extremity weakness. Specifically, patient reports worsening pain and weakness of the LLE along with progressive left low back pain for the past 2 days. She has had about 3 falls over the past 3 days with the last fall occuring yesterday. Patient had a telehealth appointment today w/ a provider at PCP office and she was referred to the ED for further evaluation. Patient states that the back pain radiates continuously through the left posterior lateral leg all the way to the toes. She has + numbness/tingling in the left foot. There is some weakness of the LLE which is limiting her ability to ambulate. Patient reports associated decreased appetite and nausea secondary to pain but denies vomiting. She denies fever, CP, SOB, abd pain. Patient denies saddle anesthesia, urinary incontinence, or fecal incontinence. In the ER, patient has remained hemodynamically stable. She is afebrile. No indication for repeat MRI at this time. Glucose is elevated at 271. Labs are otherwise unremarkable with no leukocytosis, anemia, or electrolyte derangements. Tested negative for COVID. ER course: IVF w/ 500cc NSS, morphine, zofran, and solumedrol Allergies Allergy/AdvReac Type Severity Reaction Status Date / Time acetaminophen AdvReac Severe LIVER Verified 12/08/22 20:05 COMPLICATIONS cephalexin AdvReac Severe Vomiting Verified 12/08/22 20:05 levofloxacin [From Levaquin] AdvReac Intermediate Vomiting Verified 12/08/22 20:05 Home Medications Medication Instructions Recorded Confirmed Type cyclobenzaprine 10 mg tablet 10 mg PO BID PRN Muscle Spasm ##0 11/18/17 12/08/22 History albuterol sulfate 90 mcg/actuation 2 puff inhalation Q4H PRN 02/10/18 12/08/22 History aerosol inhaler (Ventolin HFA) Shortness Of Breath Or Wheezing ##0 ibuprofen 800 mg tablet 800 mg PO TID PRN Pain 10/24/19 12/08/22 History promethazine 25 mg tablet 25 mg PO Q6H PRN Nausea 10/24/19 12/08/22 History fluticasone 232 mcg-salmeterol 14 2 inh inhalation BID PRN Shortness 08/21/20 12/08/22 History mcg/actuation breath activated Of Breath powdr (AirDuo RespiClick) montelukast 10 mg tablet 10 mg PO HS 09/01/20 12/08/22 History (Singulair) aspirin 81 mg tablet,delayed 81 mg PO QAM 10/28/20 12/08/22 History release cyclosporine 0.05 % eye drops in a 2 drp ophthalmic (eye) Q12H 04/17/21 12/08/22 History dropperette (Restasis) diclofenac sodium 1 % topical gel 4 g topical QID PRN Pain 07/20/21 12/08/22 History albuterol sulfate 2.5 mg/3 mL 2.5 mg inhalation Q6 PRN Wheezing 01/19/22 12/08/22 History (0.083 %) solution for nebulization famotidine 40 mg tablet 40 mg PO BID 01/19/22 12/08/22 History fluticasone propionate 50 1 spray intranasal DAILY PRN 01/19/22 12/08/22 History mcg/actuation nasal Congestion spray,suspension (Flonase Allergy Relief) lidocaine 5 % topical patch 1 patch transdermal DAILY PRN Pain 01/19/22 12/08/22 History pantoprazole 20 mg tablet,delayed 20 mg PO QAM 01/19/22 12/08/22 History release polyethylene glycol 3350 17 17 g PO BID 01/29/22 12/08/22 History gram/dose oral powder (Miralax) trazodone 100 mg tablet 100 mg PO HS 01/29/22 12/08/22 History duloxetine 60 mg capsule,delayed 60 mg PO HS 03/12/22 12/08/22 History release gabapentin 800 mg tablet 800 mg PO TID 04/05/22 12/08/22 History buspirone 5 mg tablet 5 mg PO QID 07/30/22 12/08/22 History ondansetron 4 mg disintegrating 4 mg PO Q6H PRN nausea and 08/11/22 12/08/22 Rx tablet vomiting #12 tabs dulaglutide 4.5 mg/0.5 mL 4.5 mg (0.5 mL) subcut WK #2 mL 10/06/22 12/08/22 Rx subcutaneous pen injector (Trulicity) nystatin 100,000 unit/gram topical 1 applic topical DIRECTED 10/12/22 12/08/22 History powder (Nyamyc) insulin aspart U-100 100 unit/mL 8 unit (0.08 mL) SC TID #15 mL 10/23/22 12/08/22 Rx (3 mL) subcutaneous pen (Novolog FlexPen U-100 Insulin aspart) insulin glargine 100 unit/mL (3 35 unit (0.35 mL) subcut BID #1 mL 10/23/22 12/08/22 Rx mL) subcutaneous pen (Lantus Solostar U-100 Insulin) sennosides 8.6 mg-docusate sodium 2 tab PO HS #0 tabs 10/23/22 12/08/22 Rx 50 mg tablet (Senokot-S) levetiracetam 1,000 mg tablet 1,000 mg PO BID 11/02/22 12/08/22 History oxycodone 5 mg tablet 10 mg PO QID PRN pain #30 tabs 11/08/22 12/08/22 Rx Past Med/Surg History Medical History (Updated 12/09/22 @ 00:10 by Aldair Monte) Ankle swelling Anxiety Brain cyst Chronic generalized abdominal pain Chronic low back pain with left-sided sciatica Chronic obstructive pulmonary disease Depression Hypertension Hypokalemia Hypomagnesemia Hyponatremia Insulin dependent diabetes mellitus Left hand paresthesia Narcotic abuse Ongoing, documented by PCP since 2013 Neurogenic claudication due to lumbar spinal stenosis Obesity Opiate dependence Opioid abuse Periapical abscess with facial involvement Pulmonary embolism Reports was anticoagulation x 60 days, not on chronic anticoagulation Rash Syncope Thrombocytopenia Tinea corporis Tinea cruris Uncontrolled type 2 diabetes mellitus Surgical History History of laparoscopic cholecystectomy Hx of oral surgery (02/15/20) Acute right submandibular, submental space infection with floor of mouth infection caused by infected lower teeth. Dr. Rios 02/15/20 S/P dilation and curettage S/P laparoscopic hernia repair S/P laparoscopic procedure ovarian cyst surgery Family History Mother , 73 Heart disease Cancer small cell ca lung caused at 73 Father Skin cancer Brother No problems noted. Sister No problems noted. Grandmother (Maternal) , 48 Heart disease T2DM (type 2 diabetes mellitus) Grandmother (Paternal) , 83 Heart disease Kidney disease Uncle T2DM (type 2 diabetes mellitus) Other Diabetes Obesity Denies family history of Ovarian cancer Breast cancer Colorectal cancer Uterine cancer Social History Smoking Status: Former smoker Tobacco Type: Cigarettes Cigarettes Per Day: 5; Second Hand Exposure: Yes; Do You Dip or Chew Tobacco: No; Tobacco Cessation Education Requested by Patient: No Hx Alcohol Use: No Hx Substance Use: No Preferred Language: Andorran Communication Ability: Effective Visual Impairment: No Limitations Hearing Ability: Normal Draw Tender Required: No Beliefs That Will Affect Care: None marital status: Current Living Situation: Alone Current Living Situation Comment: Lives with son (15yo) current occupational status: unemployed 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 Well developed and well nourished. Vital signs reviewed as documented. EYES: PERRLA. EOMI. Anicteric sclerae. HENT: Moist mucous membranes. No pharyngeal erythema or exudates. RESPIRATORY: Clear to auscultation bilaterally. No wheezing, rales, or rhonchi. CARDIOVASCULAR: Regular rate and rhythm. No murmurs. No JVD. ABDOMEN: Soft, non-tender and non-distended. Normal bowel sounds. EXTREMITIES: Trace to 1+ non-pitting edema to BLE. Non-tender. SKIN: Warm, dry. NEUROLOGIC: A/O x3. Normal speech. 3/5 strength to LLE with flexion of hip. 4/5 strength to left foot with plantarflexion and dorsiflexion. 5/5 strength to RLE. + subjective decreased sensation to left lower extremity. PSYCHIATRIC: Cooperative. Appropriate mood and affect. Results & Data Results & Data ([facility]) Vital Signs (Past 12 Hours) Vital Signs Temp Pulse Resp BP Pulse Ox O2 Del Method 12/08/22 19:24 88 12/08/22 18:39 92 H 20 100 Room Air 12/08/22 18:26 37.2 C 92 H 20 110/76 100 Room Air Laboratory Results 12/08/22 12/08/22 12/08/22 Range/Units 19:30 18:44 18:44 WBC 6.95 (4.8-10.8) K/ul RBC 4.26 (4.20-5.40) M/uL Hgb 12.6 (12.0-16.0) g/dl Hct 37.3 (37.0-47.0) % MCV 87.6 (80.0-100.0) fL MCH 29.6 (25.0-34.0) pg MCHC 33.8 (32.0-36.0) g/dL RDW Std Deviation 44.0 (36.4-46.3) fL RDW Coeff of Kelli 13.9 (11.5-14.5) % Plt Count 226 (130-400) K/uL MPV 10.4 (9.4-12.4) fL Immature Gran % (Auto) 0.4 % Neut % (Auto) 56.8 % Lymph % (Auto) 30.2 % [place] % (Auto) 7.8 % Eos % (Auto) 4.5 % Baso % (Auto) 0.3 % Neut # (Auto) 3.95 (1.40-6.50) K/uL Lymph # (Auto) 2.10 (1.2-3.4) K/uL [place] # (Auto) 0.54 (0.11-0.59) K/uL Eos # (Auto) 0.31 (0-0.50) K/uL Baso # (Auto) 0.02 (0-0.2) K/uL Immature Gran # (Auto) 0.03 (0.01-0.20) K/uL Sodium 140 (136-145) mmol/L Potassium 4.0 (3.5-5.1) mmol/L Chloride 110 H (98-107) mmol/L Carbon Dioxide 23 (21-32) mmol/L Anion Gap 7 (3-11) BUN 7 (6-23) mg/dl Creatinine 0.54 L (0.6-1.2) mg/dl Est Cr Clr Drug Dosing 144.5 ml/min Est GFR ( Amer) 124.0 ml/min Est GFR (Non-Af Amer) 107.0 ml/min BUN/Creatinine Ratio 13.0 (10-20) Glucose 271 H (70-99(Fasting)) mg/dl Calcium 9.5 (8.5-10.1) mg/dl Total Bilirubin 0.4 (0.2-1.0) mg/dl AST 18 (13-39) U/L ALT 11 (7-52) U/L Alkaline Phosphatase 122 H (34-104) U/L Total Protein 6.9 (6.0-8.3) gm/dl Albumin 3.6 (3.4-5.0) gm/dl Globulin 3.3 (2.5-4.0) gm/dl Albumin/Globulin Ratio 1.1 (0.9-2) Lipase 7 L (11-82) U/L SARS-CoV-2, RNA, NAAT NEGATIVE (NEGATIVE) Supervising Physician Co-Signing Physician Notes Attending addendum: I have physically seen this patient, have supervised the medical residents activities, and agree with the H&P unless as otherwise noted. Assessment and Plan: Chronic low back pain/acute worsening of left lower extremity radiculopathy- Status post recent surgery with Dr. Sharpe for right side, was expecting to need surgery for left side as well Can continue her chronic pain medications as noted: Cyclobenzaprine, duloxetine, gabapentin, ibuprofen and Lidoderm patch Oxycodone 5 mg every 4 hours as needed moderate pain Dilaudid 0.25 mg IV every 6 hours as needed breakthrough pain Consult orthopedic spine surgery Dr. Sharpe Diabetes mellitus type 2- Hold Trulicity Lantus and SSI as noted Expect bump in sugar since having received steroids in the ED Seizure disorder- Continue Keppra 1000 mg p.o. twice daily, check a level Depression and anxiety- Continue buspirone, duloxetine and trazodone COPD continue routine inhalers and meds: Fluticasone/albuterol, Singulair and albuterol GERD- Continue pantoprazole and famotidine Remaining orders and notations as noted Resident Activity Tracking Resident Involvement: Resident Care Provided Care Provided: Adult Hospital Medicine (5) Uncontrolled type 2 diabetes mellitus Glycemic state: with hyperglycemia Qualified Code(s): E11.65 - Type 2 diabetes mellitus with hyperglycemia (13) Hypertension Hypertension type: essential hypertension Qualified Code(s): I10 - Essential (primary) hypertension
[2022-12-08] MEDS ORDERED: oxyCODONE HCL IR 5 MG TAB (IMMEDIATE RELEASE) PO STA (22:41)
[2022-12-08] MEDS ORDERED: GLUCOSE 10 TAB/TUBE PO PRN (23:10)
[2022-12-08] MEDS ORDERED: PROMETHAZINE HCL 25 MG TAB PO PRN (23:10)
[2022-12-08] MEDS ORDERED: ACETAMINOPHEN 325 MG TAB PO PRN (23:10)
[2022-12-08] MEDS ORDERED: CYCLOBENZAPRINE HCL 10 MG TAB PO PRN (23:10)
[2022-12-08] MEDS ORDERED: SALMETEROL INH PRN (23:10)
[2022-12-08] MEDS ORDERED: FLUTICASONE PROPIONATE NA SPR 16 GM BTL PRN (23:10)
[2022-12-08] MEDS ORDERED: GLUCOSE 40% GEL 15 GM TUBE PO PRN (23:10)
[2022-12-08] MEDS ORDERED: [UNRECOGNIZED DRUG - OTHER] INH PRN (23:10)
[2022-12-08] MEDS ORDERED: ONDANSETRON INJ 2 MG/ML 2 ML VIAL IV PRN (23:10)
[2022-12-08] MEDS ORDERED: DICLOFENAC SOD 1% GEL 100 GM TUBE EXT PRN (23:10)
[2022-12-08] MEDS ORDERED: CARBOHYDRATES FOR HYPOGLYCEMIA PO PRN (23:10)
[2022-12-08] MEDS ORDERED: ALBUTEROL HFA 8 GM INHALER INH PRN (23:10)
[2022-12-08] MEDS ORDERED: oxyCODONE HCL IR 5 MG TAB (IMMEDIATE RELEASE) PO PRN ×2 (23:10)
[2022-12-08] MEDS ORDERED: FLUTICASONE INH PRN (23:10)
[2022-12-08] MEDS ORDERED: DEXTROSE 50% 50 ML SYRINGE IV PRN (23:10)
[2022-12-08] MEDS ORDERED: GLUCAGON FOR INJ 1 MG VIAL SQ PRN (23:10)
[2022-12-09] MEDS: HYDROmorphone INJ 0.5 MG/0.5 ML SYR IV PRN ×3 (00:14→20:30)
[2022-12-09] MEDS: MONTELUKAST SODIUM 10 MG TABLET PO SCH ×2 (00:17→20:28)
[2022-12-09] MEDS: POLYETHYLENE (MIRALAX) 17 GM PACK PO SCH ×4 (00:17→20:28)
[2022-12-09] MEDS: levETIRAcetam 500 MG TAB PO SCH ×3 (00:17→20:28)
[2022-12-09] MEDS: FAMOTIDINE 40 MG TABLET PO SCH ×3 (00:18→20:28)
[2022-12-09] MEDS: busPIRone 5 MG TAB PO SCH ×5 (00:18→20:28)
[2022-12-09] MEDS: INSULIN ASPART PER UNIT SC SCH ×5 (00:18→20:37)
[2022-12-09] MEDS: DULoxetine HCL 60 MG CAP PO SCH ×2 (00:18→20:28)
[2022-12-09] MEDS: GABAPENTIN 800 MG TAB PO SCH ×4 (00:18→20:28)
[2022-12-09] MEDS: LANTUS PER UNIT CHARGE SQ SCH ×2 (00:20→20:37)
[2022-12-09] MEDS: traZODone HCL 100 MG TAB PO SCH ×2 (00:20→20:28)
[2022-12-09 01:15] LABS: Appearance Urine Clear (Clear); Bacteria Urine Automated Negative (Negative); Bilirubin Urine Negative (Negative); Blood Urine 2+ (Negative); Cast Urine Automated 0 /lpf (0-5); Color Urine Yellow; Glucose Urine UA 3+ (Negative); Ketones Urine Negative (Negative); Leukocyte Esterase Urine Negative (Negative); Nitrite Urine Negative (Negative); Protein Urine 1+ (Negative); Specific Gravity Urine 1.019 (1.000-1.030); Urobilinogen Urine Negative (Negative)
[2022-12-09] MEDS ORDERED: Nursing to Pharmacy Communication SCH (04:15)
[2022-12-09] MEDS ORDERED: INSULIN ASPART PER UNIT SC ONE (04:15)
[2022-12-09] MEDS: IBUPROFEN 800 MG TAB PO PRN (05:44)
[2022-12-09] MEDS ORDERED: LANTUS PER UNIT CHARGE SQ STA (07:58)
--- NOTE | 2022-12-09 08:14 | Hospitalist Progress Note ---
Date of Service December 09, 2022 Assessment & Plan (1) Chronic low back pain with left-sided sciatica: Plan: Patient is a 52yo female with PMHx of DM2, cirrhosis, HTN, seizure disorder, and severe spinal stenosis presenting with acute on chronic back pain and LLE pain /weakness. Acute on chronic left low back pain with left-sided sciatica - MRI spine from 11/19/22 reviewed. Repeat MRI today per Dr. Sharpe - Admit with the following pain regimen (regimen reviewed with patient as this regimen provided significant benefit during most recent hospitalization): - Oxycodone 5mg (pain 4,5,6) - 10mg (pain 7-10) po TID prn; patient is on oxycodone 5mg po TID prn at home - Dilaudid 0.25mg IV q6hr prn for breakthrough pain - Tylenol 325mg po q4h to be used in conjunction with oxycodone prn - Continue home cyclobenzaprine 10mg po BID prn - Continue home duloxetine 60mg po qhs - Continue home gabapentin 800mg po TID - Continue home ibuprofen 600mg po TID - continue home lidoderm patch - Zofran and Phenergan (on both at home) - Heating pad prn - PT/OT evaluations - Fall precautions - Spine/ortho, Dr. Sharpe, consulted-< recommending repeat MRI Type 2 DM - Elevated on admission; receivde Solu-medrol in the ED - Hold home Trulicity - Based on recent hospital discharge insulin requirements, will start with regimen of Lantus 45 units BID with ISS Seizure Disorder - Continue home Keppra 1000mg po BID Depression and Anxiety - Continue home buspirone 5mg po QID and duloxetine 60mg po qhs - Continue home trazodone 100mg po qhs COPD - Stable. No acute concerns or signs of exacerbation. No cough, SOB, or whee zing. - Continue home fluticasone/salmeterol, Singulair, and prn albuterol Chronic narcotic use - Pain regimen as noted above under problem #1 - Continue to monitor use GERD - Continue home famotidine and Protonix Dyslipidemia - Documented at prior hospitalization. - Not on a statin at this time. - Encourage patient to discuss as outpatient with PCP MONIQUE: Carb Consistent Diet Code status: Full code Dispo: admit to medical (2) Weakness: (3) Depression: (4) Anxiety: (5) Uncontrolled type 2 diabetes mellitus: (6) Opiate dependence: (7) Left leg weakness: (8) History of lumbar surgery: (9) Ambulatory dysfunction: (10) Dyslipidemia: (11) Seizure disorder: (12) Chronic obstructive pulmonary disease: (13) Hypertension: Admission and Anticipated Discharge Date Admission Date: December 08, 2022 Supervising Physician Co-Signing Physician Notes I personally examined the patient and verified all brennan points of history and exam, discussed case, and agree with decision making with Dr Colunga Back painleft side and goes down leg. MRI has been done, awaiting reading. Discussed possible game plans based on results. Vitals noted, in general she is awake and alert pleasant no distress. HEENT normocephalic atraumatic mucous membranes moist. Breathing unlabored no accessory muscle use good effort. Skin shows no rashes no pallor or icterus. Neuro without focal deficits. Low back pain/lumbar radiculopathyawait MRI findings. If showing something that requires surgery, he obviously proceedalthough doubt this will be the case. Otherwise consider steroids for radicular symptoms, pain control, PT/OT, probably a trial of OMT, possibly needing rehab again. Otherwise as above Subjective Doing well this morning. States that her pain is relatively well controlled on current regimen. No bowel or bladder incontinence. No new neurologic symtoms. Review of Systems Review of Systems: As per above Physical Exam Physical Exam: Constitutional: well-appearing, no acute distress HEENT: NCAT, no conjunctival injection CV: regular rhythm, no murmur appreciated, extremities well-perfused, no LE edema Resp: CTABL, no wheezes/rales/rhonchi appreciated, no increased work of breathing MSK: Strength 5/5 right LE, 4/5 left LE Skin: warm, dry, no rash appreciated Neuro: alert, oriented Results & Data Results & Data ([facility]) Vital Signs (Past 12 Hours) Vital Signs Temp Pulse Pulse Resp BP Pulse Ox O2 Del Method 12/09/22 07:05 36.5 C 88 16 113/71 96 Room Air 12/08/22 23:05 36.6 C 105 H 16 135/73 97 Room Air 12/08/22 23:05 36.6 C 105 H 18 135/73 97 Room Air 12/08/22 20:31 103 H 16 135/97 98 Room Air Resident Activity Tracking Resident Involvement: Resident Care Provided Care Provided: Adult Hospital Medicine (5) Uncontrolled type 2 diabetes mellitus Glycemic state: with hyperglycemia Qualified Code(s): E11.65 - Type 2 di abetes mellitus with hyperglycemia (13) Hypertension Hypertension type: essential hypertension Qualified Code(s): I10 - Essential (primary) hypertension
[2022-12-09] MEDS: LIDOCAINE 5% 1 PATCH TD PRN (08:15)
[2022-12-09] MEDS ORDERED: LORazepam 0.5 MG TAB PO PRN (08:35)
--- NOTE | 2022-12-09 08:39 | Orthopedic Consultation ---
Date of Consultation December 09, 2022 Assessment & Plan (1) Left leg weakness: This time we will update an MRI lumbar spine to assess for any gross neural compression contributing to her symptom complex. Make further conditions after scan is complete. The meantime occupational therapy physical therapy is war ranted. History of Present Illness Reason for Consultation: Left leg weakness Attending Physician: Mike Canchola DO History of Present Illness This is a 52-year-old female well-known to me the presents to the emergency room yesterday with a perceived decline in status involving her left lower extremity function and weakness. She has been home for the past 2 weeks. She uses a walker. She denies any significant radicular pain. States the right leg is functional and improving. Allergies Allergy/AdvReac Type Severity Reaction Status Date / Time acetaminophen AdvReac Severe LIVER Verified 12/08/22 20:05 COMPLICATIONS cephalexin AdvReac Severe Vomiting Verified 12/08/22 20:05 levofloxacin [From Levaquin] AdvReac Intermediate Vomiting Verified 12/08/22 20:05 Home Medications Medication Instructions Recorded Confirmed Type cyclobenzaprine 10 mg tablet 10 mg PO BID PRN Muscle Spasm ##0 11/18/17 12/08/22 History albuterol sulfate 90 mcg/actuation 2 puff inhalation Q4H PRN 02/10/18 12/08/22 History aerosol inhaler (Ventolin HFA) Shortness Of Breath Or Wheezing ##0 ibuprofen 800 mg tablet 800 mg PO TID PRN Pain 10/24/19 12/08/22 History promethazine 25 mg tablet 25 mg PO Q6H PRN Nausea 10/24/19 12/08/22 History fluticasone 232 mcg-salmeterol 14 2 inh inhalation BID PRN Shortness 08/21/20 12/08/22 History mcg/actuation breath activated Of Breath powdr (AirDuo RespiClick) montelukast 10 mg tablet 10 mg PO HS 09/01/20 12/08/22 History (Singulair) aspirin 81 mg tablet,delayed 81 mg PO QAM 10/28/20 12/08/22 History release cyclosporine 0.05 % eye drops in a 2 drp ophthalmic (eye) Q12H 04/17/21 12/08/22 History dropperette (Restasis) diclofenac sodium 1 % topical gel 4 g topical QID PRN Pain 07/20/21 12/08/22 History albuterol sulfate 2.5 mg/3 mL 2.5 mg inhalation Q6 PRN Wheezing 01/19/22 12/08/22 History (0.083 %) solution for nebulization famotidine 40 mg tablet 40 mg PO BID 01/19/22 12/08/22 History fluticasone propionate 50 1 spray intranasal DAILY PRN 01/19/22 12/08/22 History mcg/actuation nasal Congestion spray,suspension (Flonase Allergy Relief) lidocaine 5 % topical patch 1 patch transdermal DAILY PRN Pain 01/19/22 12/08/22 History pantoprazole 20 mg tablet,delayed 20 mg PO QAM 01/19/22 12/08/22 History release polyethylene glycol 3350 17 17 g PO BID 01/29/22 12/08/22 History gram/dose oral powder (Miralax) trazodone 100 mg tablet 100 mg PO HS 01/29/22 12/08/22 History duloxetine 60 mg capsule,delayed 60 mg PO HS 03/12/22 12/08/22 History release gabapentin 800 mg tablet 800 mg PO TID 04/05/22 12/08/22 History buspirone 5 mg tablet 5 mg PO QID 07/30/22 12/08/22 History ondansetron 4 mg disintegrating 4 mg PO Q6H PRN nausea and 08/11/22 12/08/22 Rx tablet vomiting #12 tabs dulaglutide 4.5 mg/0.5 mL 4.5 mg (0.5 mL) subcut WK #2 mL 10/06/22 12/08/22 Rx [facility] nystatin 100,000 unit/gram topical 1 applic topical DIRECTED 10/12/22 12/08/22 History powder (Nyamyc) insulin aspart U-100 100 unit/mL 8 unit (0.08 mL) SC TID #15 mL 10/23/22 12/08/22 Rx (3 mL) subcutaneous pen (Novolog FlexPen U-100 Insulin aspart) insulin glargine 100 unit/mL (3 35 unit (0.35 mL) subcut BID #1 mL 10/23/22 12/08/22 Rx mL) subcutaneous pen (Lantus Solostar U-100 Insulin) sennosides 8.6 mg-docusate sodium 2 tab PO HS #0 tabs 10/23/22 12/08/22 Rx 50 mg tablet (Senokot-S) levetiracetam 1,000 mg tablet 1,000 mg PO BID 11/02/22 12/08/22 History oxycodone 5 mg tablet 10 mg PO QID PRN pain #30 tabs 11/08/22 12/08/22 Rx Patient History Medical History (Updated 12/09/22 @ 00:10 by Aldair Monte) Ankle swelling Anxiety Brain cyst Chronic generalized abdominal pain Chronic low back pain with left-sided sciatica Chronic obstructive pulmonary disease Depression Hypertension Hypokalemia Hypomagnesemia Hyponatremia Insulin dependent diabetes mellitus Left hand paresthesia Narcotic abuse Ongoing, documented by PCP since 2013 Neurogenic claudication due to lumbar spinal stenosis Obesity Opiate dependence Opioid abuse Periapical abscess with facial involvement Pulmonary embolism Reports was anticoagulation x 60 days, not on chronic anticoagulation Rash Syncope Thrombocytopenia Tinea corporis Tinea cruris Uncontrolled type 2 diabetes mellitus Surgical History History of laparoscopic cholecystectomy Hx of oral surgery (02/15/20) Acute right submandibular, submental space infection with floor of mouth infection caused by infected lower teeth. Dr. Rios 02/15/20 S/P dilation and curettage S/P laparoscopic hernia repair S/P laparoscopic procedure ovarian cyst surgery Family History Mother , 73 Heart disease Cancer small cell ca lung caused at 73 Father Skin cancer Brother No problems noted. Sister No problems noted. Grandmother (Maternal) , 48 Heart disease T2DM (type 2 diabetes mellitus) Grandmother (Paternal) , 83 Heart disease Kidney disease Uncle T2DM (type 2 diabetes mellitus) Other Diabetes Obesity Denies family history of Ovarian cancer Breast cancer Colorectal cancer Uterine cancer Social History Smoking Status: Former smoker Tobacco Type: Cigarettes Cigarettes Per Day: 5; Second Hand Exposure: Yes; Do You Dip or Chew Tobacco: No; Tobacco Cessation Education Requested by Patient: No Hx Alcohol Use: No Hx Substance Use: No Preferred Language: Maltese Communication Ability: Effective Visual Impairment: No Limitations Hearing Ability: Normal Policy Issue Clerk Required: No Beliefs That Will Affect Care: None marital status: Current Living Situation: Alone Current Living Situation Comment: Lives with son (15yo) current occupational status: unemployed 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 She is quite comfortable. She has reasonable strength testing right lower extremity with limitations to the left dorsiflexion plantarflexion. Sensory appears to be intact. Results & Data ([facility]) Vital Signs (Past 12 Hours) Vital Signs Temp Pulse Resp BP Pulse Ox O2 Del Method 12/09/22 07:05 36.5 C 88 16 113/71 96 Room Air 12/08/22 23:05 36.6 C 105 H 16 135/73 97 Room Air 12/08/22 23:05 36.6 C 105 H 18 135/73 97 Room Air
[2022-12-09] MEDS ORDERED: LANTUS PER UNIT CHARGE SQ ONE (08:40)
[2022-12-09] MEDS: PANTOprazole 40 MG TAB PO SCH (08:59)
[2022-12-09] MEDS: ASPIRIN 81 MG ECTAB PO SCH (08:59)
[2022-12-09 09:14] LABS: Basophils # (auto) 0.01 K/uL (0-0.2); Basophils % (auto) 0.1 %; Eosinophils # (auto) 0.01 K/uL (0-0.50); Eosinophils % (auto) 0.1 %; Hematocrit (blood only) 37.5 % (37.0-47.0); Hemoglobin 12.9 g/dl (12.0-16.0); Immature Granulocytes # (auto) 0.04 K/uL (0.01-0.20); Immature Granulocytes % (auto) 0.5 %; Lymphocytes # (auto) 1.38 K/uL (1.2-3.4); Mean Corpuscular Hemoglobin 30.2 pg (25.0-34.0); Mean Corpuscular Hgb Conc 34.4 g/dL (32.0-36.0); Mean Corpuscular Volume 87.8 fL (80.0-100.0); Mean Platelet Volume 10.6 fL (9.4-12.4); Monocytes # (auto) 0.19 K/uL (0.11-0.59); Monocytes % (auto) 2.6 %; Neutrophils # (auto) 5.65 K/uL (1.40-6.50); Neutrophils % (auto) 77.7 %; Platelet Count 232 K/uL (130-400); RDW Coefficient of Variation 13.5 % (11.5-14.5); RDW Standard Deviation 43.5 fL (36.4-46.3); Red Blood Count 4.27 M/uL (4.20-5.40); White Blood Count 7.28 K/ul (4.8-10.8)
[2022-12-09 09:30] LABS: Albumin Globulin Ratio 1.1 (0.9-2); Albumin Level 3.6 gm/dl (3.4-5.0); BUN Creatinine Ratio 20.4 (10-20); Bilirubin,Total 0.4 mg/dl (0.2-1.0); Calcium 9.7 mg/dl (8.5-10.1); Creatinine Clr Calc Pharmacy 131.9 ml/min; Globulin 3.3 gm/dl (2.5-4.0); Potassium 4.2 mmol/L (3.5-5.1); Total Protein 6.9 gm/dl (6.0-8.3)
[2022-12-09] MEDS ORDERED: LORazepam 2 MG/1 ML VIAL IV PRN (10:29)
[2022-12-09] MEDS ORDERED: oxyCODONE HCL IR 5 MG TAB (IMMEDIATE RELEASE) PO PRN (13:46)
[2022-12-09] MEDS: oxyCODONE HCL IR 5 MG TAB (IMMEDIATE RELEASE) PO PRN ×2 (13:52→17:56)
--- NOTE | 2022-12-09 16:01 | Magnetic Resonance Report ---
MRI OF THE LUMBAR SPINE WITHOUT CONTRAST CLINICAL HISTORY: Left leg weakness. Multiple falls. COMPARISON STUDY: Lumbar spine CT 12/31/2022. Lumbar spine MRI November 19, 2022. TECHNIQUE: Utilizing a 1.5 Paty magnet and dedicated coil, multiplanar, multiecho imaging of the [facility] spine was performed without IV contrast. FINDINGS: For purposes of numbering on this exam, the L5-S1 disc space is assigned to axial image 29 of 32. The re are stable postoperative findings consistent with L3-L5 discectomy, posterior decompression and bi lateral pedicle screw fusion. 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 A 5.4 x 1.8 cm opera tive bed fluid collection has decreased in size since MRI November 19, 2022 when it measured 7.5 x 2 cm. A small laminectomy bed fluid collection has nearly completely resolved. There are no new fluid c ollections. Increased T2 signal within the paraspinal musculature remains unchanged. The conus termin ates at the L1-L2 level. No lumbar spine fracture is present. There is no evidence for discitis or os teomyelitis. L1-2: The central canal and neural foramen are patent. L2-3: The central canal and neural foramen are patent. L3-4: There is no recurrent central canal stenosis. The neural foramen are suboptimally assessed on t his exam due to artifact. Mild to moderate bilateral neural foraminal narrowing is suspected. L4-5: There is no recurrent central canal stenosis. Mild to moderate bilateral neural foraminal steno sis is similar to prior exam. L5-S1: A left paracentral disc protrusion results in mild to moderate narrowing of the left lateral r ecess. This has mass effect upon the descending left S1 nerve root. This is unchanged. Neural foramen are patent. IMPRESSION: 1. Posterior decompression and fusion from L3 through L5. Resolving postoperative findings compared t o MRI of November 19, 2022. No recurrent central canal stenosis at these levels. 2. No change in a left paracentral disc protrusion at L5-S1 that results in moderate of the left late ral recess. 3. No new disc herniations. 4. No significant change in mild to moderate multilevel neural foraminal stenosis, as described above . ACT 112: Negative or not required by law. Electronically signed by: Dani Cardona M.D. 12/09/2022 3:59 PM
--- NOTE | 2022-12-09 19:15 | Billing Data ---
Date of Service December 09, 2022 Coding Level of Care Code 17038 SUB INP/OBS CARE
[2022-12-10] MEDS: oxyCODONE HCL IR 5 MG TAB (IMMEDIATE RELEASE) PO PRN ×5 (02:26→20:02)
--- NOTE | 2022-12-10 04:16 | Billing Data ---
Date of Service December 10, 2022 Coding Level of Care Code 75837 INT INP/OBS CARE
--- NOTE | 2022-12-10 07:43 | Hospitalist Progress Note ---
Date of Service December 10, 2022 Assessment & Plan (1) Chronic low back pain with left-sided sciatica: Plan: Patient is a 52yo female with PMHx of DM2, cirrhosis, HTN, seizure disorder, and severe spinal stenosis presenting with acute on chronic back pain and LLE pain /weakness. Acute on chronic left low back pain with left-sided sciatica No change in a left paracentral disc protrusion at L5-S1 that results in moderate of the left lateral reces - Pain regimen: - Oxycodone 5mg (pain 4,5,6) - 10mg (pain 7-10) po TID prn; patient is on oxycodone 5mg po TID prn at home - Dilaudid 0.25mg IV q6hr prn for breakthrough pain - oxycodone 5mg for moderate pain 10mg for severe pain - Tylenol 325mg po q4h to be used in conjunction with oxycodone prn - Continue home cyclobenzaprine 10mg po BID prn - Continue home duloxetine 60mg po qhs - Continue home gabapentin 800mg po TID - Continue home ibuprofen 600mg po TID - continue home lidoderm patch - Heating pad prn - PT/OT - Fall precautions - Spine/ortho, Dr. Sharpe, consulted-> conservative management, no plans for surgery at present time Type 2 DM - Elevated on admission; received Solu-medrol in the ED - Hold home Trulicity - Lantus 45 units BID with ISS CR= 5, CF- 15 Seizure Disorder - Continue home Keppra 1000mg po BID Depression and Anxiety - Continue home buspirone 5mg po QID and duloxetine 60mg po qhs - Continue home trazodone 100mg po qhs COPD - Stable. No acute concerns or signs of exacerbation. No cough, SOB, or wheezing. - Continue home fluticasone/salmeterol, Singulair, and prn albuterol Chronic narcotic use - Pain regimen as noted above under problem #1 - Continue to monitor use GERD - Continue home famotidine and Protonix Dyslipidemia - Documented at prior hospitalization. - Not on a statin at this time. - Encourage patient to discuss as outpatient with PCP FENGI: Carb Consistent Diet Code status: Full code (2) Weakness: (3) Depression: (4) Anxiety: (5) Uncontrolled type 2 diabetes mellitus: (6) Opiate dependence: (7) Left leg weakness: (8) History of lumbar surgery: (9) Ambulatory dysfunction: (10) Dyslipidemia: (11) Seizure disorder: (12) Chronic obstructive pulmonary disease: (13) Hypertension: Admission and Anticipated Discharge Date Admission Date: December 08, 2022 Supervising Physician Co-Signing Physician Notes I personally examined the patient and verified all brennan points of history and exam, discussed case, and agree with decision making with Dr Colunga Overall plan will be therapy at home. Pain under reasonable control right now. Vitals noted, in general she is awake and alert pleasant no distress. HEENT normocephalic atraumatic mucous membranes moist. Breathing unlabored no accessory muscle use good effort. Skin shows no rashes no pallor or icterus. Neuro without focal deficits. Left-sided pelvic musculature in the region of piriformis high tone, tender, decreased range of motionLAS/inhibitory pressureimproved tissue texture. Patient tolerated well Low back pain/lumbar radiculopathyno need for urgent surgery. Continue, pain control, PT/OT, trial of OMT, home once pain reasonable Otherwise as above Subjective Pain is similar to yesterday. Was able to work with OT yesterday, plan to work with PT today. No new neurologic symptoms. Denies bowel/bladder incontinence, saddle anesthesia. Review of Systems Review of Systems: As per above Physical Exam Physical Exam: Constitutional: well-appearing, no acute distress HEENT: NCAT, no conjunctival injection CV: regular rhythm, no murmur appreciated, extremities well-perfused, no LE edema Resp: CTABL, no wheezes/rales/rhonchi appreciated, no increased work of breathing MSK: Strength 5/5 right LE, 4/5 left LE Skin: warm, dry, no rash appreciated Neuro: alert, oriented Results & Data Results & Data ([facility]) Vital Signs (Past 12 Hours) Vital Signs Temp Pulse Resp BP Pulse Ox O2 Del Method 12/10/22 06:58 36.9 C 69 16 103/66 97 Room Air 12/09/22 20:49 36.4 C L 87 18 112/70 97 Room Air Resident Activity Tracking Resident Involvement: Resident Care Provided Care Provided: Adult Hospital Medicine (5) Uncontrolled type 2 diabetes mellitus Glycemic state: with hyperglycemia Qualified Code(s): E11.65 - Type 2 diabetes mellitus with hyperglycemia (13) Hypertension Hypertension type: essential hypertension Qualified Code(s): I10 - Essential (primary) hypertension
[2022-12-10] MEDS: POLYETHYLENE (MIRALAX) 17 GM PACK PO SCH ×2 (08:05→20:01)
[2022-12-10] MEDS: HYDROmorphone INJ 0.5 MG/0.5 ML SYR IV PRN (08:07)
[2022-12-10] MEDS: busPIRone 5 MG TAB PO SCH ×4 (08:14→20:03)
[2022-12-10] MEDS: ASPIRIN 81 MG ECTAB PO SCH (08:14)
[2022-12-10] MEDS: levETIRAcetam 500 MG TAB PO SCH ×2 (08:15→20:04)
[2022-12-10] MEDS: GABAPENTIN 800 MG TAB PO SCH ×3 (08:15→20:05)
[2022-12-10] MEDS: FAMOTIDINE 40 MG TABLET PO SCH ×2 (08:15→20:04)
[2022-12-10] MEDS: PANTOprazole 40 MG TAB PO SCH (08:16)
[2022-12-10] MEDS: ENOXAPARIN INJ 40 MG/0.4 ML SYR SQ SCH (08:17)
[2022-12-10] MEDS: INSULIN ASPART PER UNIT SC SCH ×4 (08:52→20:57)
[2022-12-10] MEDS: LANTUS PER UNIT CHARGE SQ SCH ×2 (08:54→20:57)
--- NOTE | 2022-12-10 11:26 | Orthopedic Progress Note ---
Date of Service December 10, 2022 Assessment & Plan (1) Left leg weakness: Plan: MRI performed yesterday does demonstrate marked resolution of her postoperative seroma. She continues to have a small posterior lateral disc herniation L5-S1 the left. I do not appreciate any severe neural compression. The canal is well decompressed at the operative site. She continues to demonstrate a massive Tarlov cyst involving most of the sacrum and extending up the L5-S1 level. At this point explained the patient that we would like to withhold any surgery for as long as possible. Ultimately if she does require surgery at the L5-S1 level prefer that she get a consultation with neurosurgery in light of the scope of her Tarlov cyst and this might need to be addressed at the time of surgery was sent which is outside the scope of my expertise. She understands and agrees. At this point would continue therapy as tolerated. Admission and Anticipated Discharge Date Admission Date: December 08, 2022 Subjective Patient states her leg pain is improved. She was able to tolerate physical therapy. She expresses concern that she may have further decline in the future. Physical Exam Physical Exam: On exam she is currently in bed. She appears very comfortable. Her strength seems to improved left lower extremity on examination today compared to yesterday. Results & Data ([facility]) Vital Signs (Past 12 Hours) Vital Signs Temp Pulse Pulse Resp BP Pulse Ox O2 Del Method 12/10/22 07:49 37 C 70 13 100/65 97 Room Air 12/10/22 06:58 36.9 C 69 16 103/66 97 Room Air
[2022-12-10] MEDS: FLUTICASONE/VILANTEROL 100/25MCG 14 PUFFS/INHALER INH SCH (11:39)
[2022-12-10] MEDS: IBUPROFEN 800 MG TAB PO PRN (20:02)
[2022-12-10] MEDS: MONTELUKAST SODIUM 10 MG TABLET PO SCH (20:03)
[2022-12-10] MEDS: DULoxetine HCL 60 MG CAP PO SCH (20:03)
[2022-12-10] MEDS: traZODone HCL 100 MG TAB PO SCH (20:04)
--- NOTE | 2022-12-10 20:19 | Billing Data ---
Date of Service December 10, 2022 Coding Level of Care Code 13857 SUB INP/OBS CARE
[2022-12-11] MEDS: IBUPROFEN 800 MG TAB PO PRN (04:16)
[2022-12-11] MEDS: oxyCODONE HCL IR 5 MG TAB (IMMEDIATE RELEASE) PO PRN ×4 (04:16→12:50)
--- NOTE | 2022-12-11 07:54 | Hospitalist Progress Note ---
Date of Service December 11, 2022 Assessment & Plan (1) Chronic low back pain with left-sided sciatica: Plan: Patient is a 52yo female with PMHx of DM2, cirrhosis, HTN, seizure disorder, and severe spinal stenosis presenting with acute on chronic back pain and LLE pain /weakness. Acute on chronic left low back pain with left-sided sciatica No change in a left paracentral disc protrusion at L5-S1 that results in moderate of the left lateral reces - Pain regimen: - Oxycodone 5mg (pain 4,5,6) - 10mg (pain 7-10) po TID prn; patient is on oxycodone 5mg po TID prn at home - Dilaudid 0.25mg IV q6hr prn for breakthrough pain - oxycodone 5mg for moderate pain 10mg for severe pain - Tylenol 325mg po q4h to be used in conjunction with oxycodone prn - Continue home cyclobenzaprine 10mg po BID prn - Continue home duloxetine 60mg po qhs - Continue home gabapentin 800mg po TID - Continue home ibuprofen 600mg po TID - continue home lidoderm patch - Heating pad prn - PT/OT - Fall precautions - Spine/ortho, Dr. Sharpe, consulted-> conservative management, no plans for surgery at present time --- Pain control: stable, receiving Oxycodone 10 mg q4h --- Plan PT at home Type 2 DM - Elevated on admission; received Solu-medrol in the ED - Hold home Trulicity - Lantus 45 units BID with ISS CR= 5, CF- 15 --- Advised against snacks with increased carbs Seizure Disorder - Continue home Keppra 1000mg po BID Depression and Anxiety - Continue home buspirone 5mg po QID and duloxetine 60mg po qhs - Continue home trazodone 100mg po qhs COPD - Stable. No acute concerns or signs of exacerbation. No cough, SOB, or wheezing. - Continue home fluticasone/salmeterol, Singulair, and prn albuterol Chronic narcotic use - Pain regimen as noted above under problem #1 - Continue to monitor use GERD - Continue home famotidine and Protonix Dyslipidemia - Documented at prior hospitalization. - Not on a statin at this time. - Encourage patient to discuss as outpatient with PCP MONIQUE: Carb Consistent Diet Code status: Full code (2) Weakness: (3) Depression: (4) Anxiety: (5) Uncontrolled type 2 diabetes mellitus: (6) Opiate dependence: (7) Left leg weakness: (8) History of lumbar surgery: (9) Ambulatory dysfunction: (10) Dyslipidemia: (11) Seizure disorder: (12) Chronic obstructive pulmonary disease: (13) Hypertension: Admission and Anticipated Discharge Date Admission Date: December 08, 2022 Subjective 3/3: Pain is similar to yesterday. Was able to work with OT yesterday, plan to work with PT today. No new neurologic symptoms. Denies bowel/bladder incontinence, saddle anesthesia. /4: Review of Systems Review of Systems: As per above Physical Exam Physical Exam: Constitutional: well-appearing, no acute distress HEENT: NCAT, no conjunctival injection CV: regular rhythm, no murmur appreciated, extremities well-perfused, no LE edema Resp: CTABL, no wheezes/rales/rhonchi appreciated, no increased work of breathing MSK: Strength 5/5 right LE, 4/5 left LE Skin: warm, dry, no rash appreciated Neuro: alert, oriented Results & Data Results & Data ([facility]) Vital Signs (Past 12 Hours) Vital Signs Temp Pulse Resp BP Pulse Ox O2 Del Method 12/11/22 07:06 36.8 C 76 16 111/71 94 Room Air 12/10/22 21:08 96 Room Air 12/10/22 20:30 36.6 C 76 18 100/64 95 Room Air Resident Activity Tracking Resident Involvement: Resident Care Provided Care Provided: Adult Hospital Medicine (5) Uncontrolled type 2 diabetes mellitus Glycemic state: with hyperglycemia Qualified Code(s): E11.65 - Type 2 diabetes mellitus with hyperglycemia (13) Hypertension Hypertension type: essential hypertension Qualified Code(s): I10 - Essential (primary) hypertension
[2022-12-11 08:45] LABS: Calcium 8.8 mg/dl (8.5-10.1); Potassium 3.6 mmol/L (3.5-5.1)
[2022-12-11 08:50] LABS: BUN Creatinine Ratio 28.6 (10-20); Creatinine Clr Calc Pharmacy 101.8 ml/min; Est GFR (African American) 113.8 ml/min; Est GFR (Non-African American) 98.2 ml/min
[2022-12-11] MEDS: HYDROmorphone INJ 0.5 MG/0.5 ML SYR IV PRN (09:37)
[2022-12-11] MEDS: FLUTICASONE/VILANTEROL 100/25MCG 14 PUFFS/INHALER INH SCH (09:38)
[2022-12-11] MEDS: ENOXAPARIN INJ 40 MG/0.4 ML SYR SQ SCH (09:38)
[2022-12-11] MEDS: LANTUS PER UNIT CHARGE SQ SCH (09:39)
[2022-12-11] MEDS: INSULIN ASPART PER UNIT SC SCH ×2 (09:39→13:16)
[2022-12-11] MEDS: LIDOCAINE 5% 1 PATCH TD PRN (09:40)
[2022-12-11] MEDS: POLYETHYLENE (MIRALAX) 17 GM PACK PO SCH (09:40)
[2022-12-11] MEDS: ASPIRIN 81 MG ECTAB PO SCH (09:41)
[2022-12-11] MEDS: levETIRAcetam 500 MG TAB PO SCH (09:41)
[2022-12-11] MEDS: FAMOTIDINE 40 MG TABLET PO SCH (09:41)
[2022-12-11] MEDS: GABAPENTIN 800 MG TAB PO SCH ×2 (09:41→13:58)
[2022-12-11] MEDS: busPIRone 5 MG TAB PO SCH ×2 (09:42→12:50)
[2022-12-11] MEDS: PANTOprazole 40 MG TAB PO SCH (09:42)
--- NOTE | 2022-12-11 13:11 | Discharge Summary ---
Date of Service December 11, 2022 Admission HPI Per Admitting Provider Patient is a 52yo female with PMHx of DM2, cirrhosis, HTN, seizure disorder, and severe spinal stenosis presenting with acute on chronic back pain and LLE pain/weakness. Patient has had multiple recent hospitalizations associated with her back pain. She was admitted at [facility] from 10/12/22 to 10/23/22 for severe back pain and during that hospitalization, on 10/20/22, she had an L3-L5 decompression and fusion performed by Dr. Sharpe w/ ortho-spine. She was discharged to inpatient rehab on 10/23/22. She subsequently returned to [facility] on 11/02/22, the day that she was discharged from inpatient rehab, due to uncontrolled pain and a fall; she was admitted 11/02/22-11/08/22 and discharged home with home health support. Patient returned again on 11/19/22 for worsening low back pain and R leg weakness; admitted 11/20/22-11/25/22 [address] [facility]. Patient states that after discharge from [facility] about 1.5 weeks ago, she was doing well and ambulating w/o assistive device. However, she has had recurrent progres sive left low back pain with left lower extremity weakness. Specifically, patient reports worsening pain and weakness of the LLE along with progressive left low back pain for the past 2 days. She has had about 3 falls over the past 3 days with the last fall occuring yesterday. Patient had a telehealth appointment today w/ a provider at PCP office and she was referred to the ED for further evaluation. Patient states that the back pain radiates continuously through the left posterior lateral leg all the way to the toes. She has + numbness/tingling in the left foot. There is some weakness of the LLE which is limiting her ability to ambulate. Patient reports associated decreased appetite and nausea secondary to pain but denies vomiting. She denies fever, CP, SOB, abd pain. Patient denies saddle anesthesia, urinary incontinence, or fecal incontinence. In the ER, patient has remained hemodynamically stable. She is afebrile. No indication for repeat MRI at this time. Glucose is elevated at 271. Labs are otherwise unremarkable with no leukocytosis, anemia, or electrolyte derangements. Tested negative for COVID. ER course: IVF w/ 500cc NSS, morphine, zofran, and solumedrol Admission Exam Per Admitting Provider GENERAL: No acute distress. Well developed and well nourished. Vital signs reviewed as documented. EYES: PERRLA. EOMI. Anicteric sclerae. HENT: Moist mucous membranes. No pharyngeal erythema or exudates. RESPIRATORY: Clear to auscultation bilaterally. No wheezing, rales, or rhonchi. CARDIOVASCULAR: Regular rate and rhythm. No murmurs. No JVD. ABDOMEN: Soft, non-tender and non-distended. Normal bowel sounds. EXTREMITIES: Trace to 1+ non-pitting edema to BLE. Non-tender. SKIN: Warm, dry. NEUROLOGIC: A/O x3. Normal speech. 3/5 strength to LLE with flexion of hip. 4/5 strength to left foot with plantarflexion and dorsiflexion. 5/5 strength to RLE. + subjective decreased sensation to left lower extremity. PSYCHIATRIC: Cooperative. Appropriate mood and affect. Principal Diagnosis Back Pain, Weakness Discharge Exam Gen: NAD, alert, interactive Resp:Non-labored, no wheezing/rhonchi/rales, CTAB CV:RRR, normal S1/S2, no M/R/G Abd: Soft, non-distended, no TTP, normoactive bowels, no masses Back: TTP along right paraspinal musculature in lumbar spine Extr: 2+ dp bilaterally, no edema, strength 5/5 RLE 4/5 LLE Skin: No rashes lesions or erythema Discharge Data Allergies Allergy/AdvReac Type Severity Reaction Status Date / Time acetaminophen AdvReac Severe LIVER Verified 12/08/22 20:05 COMPLICATIONS cephalexin AdvReac Severe Vomiting Verified 12/08/22 20:05 levofloxacin [From Levaquin] AdvReac Intermediate Vomiting Verified 12/08/22 20:05 Consultations 12/08/22 19:37 Consult Orthopedic Surgery Routine 12/08/22 19:47 ED Decision to Admit Stat Ordered Studies 12/09/22 08:39 MR lumbar spine wo con Routine Laboratory Results WBC 7.28 K/ul (4.8-10.8) 12/09/22 08:19 RBC 4.27 M/uL (4.20-5.40) 12/09/22 08:19 Hgb 12.9 g/dl (12.0-16.0) 12/09/22 08:19 Hct 37.5 % (37.0-47.0) 12/09/22 08:19 MCV 87.8 fL (80.0-100.0) 12/09/22 08:19 MCH 30.2 pg (25.0-34.0) 12/09/22 08:19 MCHC 34.4 g/dL (32.0-36.0) 12/09/22 08:19 RDW Std Deviation 43.5 fL (36.4-46.3) 12/09/22 08:19 RDW Coeff of Kelli 13.5 % (11.5-14.5) 12/09/22 08:19 Plt Count 232 K/uL (130-400) 12/09/22 08:19 MPV 10.6 fL (9.4-12.4) 12/09/22 08:19 Immature Gran % (Auto) 0.5 % 12/09/22 08:19 Neut % (Auto) 77.7 % 12/09/22 08:19 Lymph % (Auto) 19.0 % 12/09/22 08:19 [place] % (Auto) 2.6 % 12/09/22 08:19 Eos % (Auto) 0.1 % 12/09/22 08:19 Baso % (Auto) 0.1 % 12/09/22 08:19 Neut # (Auto) 5.65 K/uL (1.40-6.50) 12/09/22 08:19 Lymph # (Auto) 1.38 K/uL (1.2-3.4) 12/09/22 08:19 [place] # (Auto) 0.19 K/uL (0.11-0.59) 12/09/22 08:19 Eos # (Auto) 0.01 K/uL (0-0.50) 12/09/22 08:19 Baso # (Auto) 0.01 K/uL (0-0.2) 12/09/22 08:19 Immature Gran # (Auto) 0.04 K/uL (0.01-0.20) 12/09/22 08:19 Sodium 140 mmol/L (136-145) 12/11/22 06:47 Potassium 3.6 mmol/L (3.5-5.1) 12/11/22 06:47 Chloride 106 mmol/L (98-107) 12/11/22 06:47 Carbon Dioxide 27 mmol/L (21-32) 12/11/22 06:47 Anion Gap 7 (3-11) 12/11/22 06:47 BUN 20 mg/dl (6-23) 12/11/22 06:47 Creatinine 0.70 mg/dl (0.6-1.2) 12/11/22 06:47 Est Cr Clr Drug Dosing 101.8 ml/min 12/11/22 06:47 Est GFR ( Amer) 113.8 ml/min 12/11/22 06:47 Est GFR (Non-Af Amer) 98.2 ml/min 12/11/22 06:47 BUN/Creatinine Ratio 28.6 (10-20) H 12/11/22 06:47 Glucose 243 mg/dl (70-99(Fasting)) H 12/11/22 06:47 POC Glucose 135 mg/dl (70-99) H 12/11/22 12:22 Calcium 8.8 mg/dl (8.5-10.1) 12/11/22 06:47 Total Bilirubin 0.4 mg/dl (0.2-1.0) 12/09/22 08:19 AST 11 U/L (13-39) L 12/09/22 08:19 ALT 9 U/L (7-52) 12/09/22 08:19 Alkaline Phosphatase 117 U/L (34-104) H 12/09/22 08:19 Total Protein 6.9 gm/dl (6.0-8.3) 12/09/22 08:19 Albumin 3.6 gm/dl (3.4-5.0) 12/09/22 08:19 Globulin 3.3 gm/dl (2.5-4.0) 12/09/22 08:19 Albumin/Globulin Ratio 1.1 (0.9-2) 12/09/22 08:19 Lipase 7 U/L (11-82) L 12/08/22 18:44 Urine Color Yellow 12/09/22 00:35 Urine Appearance Clear (Clear) 12/09/22 00:35 Urine pH 6.0 (4.5-7.5) 12/09/22 00:35 Ur Specific [place] 1.019 (1.000-1.030) 12/09/22 00:35 Urine Protein 1+ (Negative) H 12/09/22 00:35 Urine Glucose (UA) 3+ (Negative) H 12/09/22 00:35 Urine Ketones Negative (Negative) 12/09/22 00:35 Urine Blood 2+ (Negative) H 12/09/22 00:35 Urine Nitrite Negative (Negative) 12/09/22 00:35 Urine Bilirubin Negative (Negative) 12/09/22 00:35 Urine Urobilinogen Negative (Negative) 12/09/22 00:35 Ur Leukocyte Esterase Negative (Negative) 12/09/22 00:35 Urine WBC (Auto) 1-5 /hpf (0-5) 12/09/22 00:35 Urine RBC (Auto) 10-30 /hpf (0-4) H 12/09/22 00:35 U Hyaline Cast (Auto) 0 /lpf (0-5) 12/09/22 00:35 U Epithel Cells (Auto) 5-10 /lpf (0-5) H 12/09/22 00:35 Urine Bacteria (Auto) Negative (Negative) 12/09/22 00:35 SARS-CoV-2, RNA, NAAT NEGATIVE (NEGATIVE) 12/08/22 19:30 Impressions Lumbar Spine MRI 12/09/22 08:39 MRI OF THE LUMBAR SPINE WITHOUT CONTRAST CLINICAL HISTORY: Left leg weakness. Multiple falls. COMPARISON STUDY: Lumbar spine CT 12/31/2022. Lumbar spine MRI November 19, 2022. TECHNIQUE: Utilizing a 1.5 Paty magnet and dedicated coil, multiplanar, multiecho imaging of the lumbar spine was performed without IV contrast. FINDINGS: For purposes of numbering on this exam, the L5-S1 disc space is assigned to axial image 29 of 32. There are stable postoperative findings consistent with L3-L5 discectomy, posterior decompression and bilateral pedicle screw fusion. 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 A 5.4 x 1.8 cm operative bed fluid collection has decreased in size since MRI November 19, 2022 when it measured 7.5 x 2 cm. A small laminectomy bed fluid collection has nearly completely resolved. There are no new fluid collections. Increased T2 signal within the paraspinal musculature remains unchanged. The conus terminates at the L1-L2 level. No lumbar spine fracture is present. There is no evidence for discitis or osteomyelitis. L1-2: The central canal and neural foramen are patent. L2-3: The central canal and neural foramen are patent. L3-4: There is no recurrent central canal stenosis. The neural foramen are suboptimally assessed on this exam due to artifact. Mild to moderate bilateral neural foraminal narrowing is suspected. L4-5: There is no recurrent central canal stenosis. Mild to moderate bilateral neural foraminal stenosis is similar to prior exam. L5-S1: A left paracentral disc protrusion results in mild to moderate narrowing of the left lateral recess. This has mass effect upon the descending left S1 nerve root. This is unchanged. Neural foramen are patent. IMPRESSION: 1. Posterior decompression and fusion from L3 through L5. Resolving pos toperative findings compared to MRI of November 19, 2022. No recurrent central canal stenosis at these levels. 2. No change in a left paracentral disc protrusion at L5-S1 that results in moderate of the left lateral recess. 3. No new disc herniations. 4. No significant change in mild to moderate multilevel neural foraminal stenosis, as described above. ACT 112: Negative or not required by law. Electronically signed by: Dani Cardona M.D. 12/09/2022 3:59 PM Hospital Course (1) Chronic low back pain with left-sided sciatica: (2) Weakness: (3) Depression: (4) Anxiety: (5) Uncontrolled type 2 diabetes mellitus: (6) Opiate dependence: (7) Left leg weakness: (8) History of lumbar surgery: (9) Ambulatory dysfunction: (10) Dyslipidemia: (11) Seizure disorder: (12) Chronic obstructive pulmonary disease: (13) Hypertension: Remedios Bertrand is a 52F w/ hx of DM2, cirrhosis, HTN, seizures, and severe spinal stenosis who presented with acute on chronic back pain and LLE weakness. Chronic low back pain with left-sided sciatica: - Acute on chronic left low back pain with left-sided sciatica - No change in a left paracentral disc protrusion at L5-S1 that results in moderate of the left lateral reces - Pain regimen: - Oxycodone 5mg (pain 4,5,6) - 10mg (pain 7-10) po TID prn; patient is on oxycodone 5mg po TID prn at home - Dilaudid 0.25mg IV q6hr prn for breakthrough pain - oxycodone 5mg for moderate pain 10mg for severe pain - Tylenol 325mg po q4h to be used in conjunction with oxycodone prn - Continue home cyclobenzaprine 10mg po BID prn - Continue home duloxetine 60mg po qhs - Continue home gabapentin 800mg po TID - Continue home ibuprofen 600mg po TID - continue home lidoderm patch - Heating pad prn - PT/OT - Fall precautions - Spine/ortho, Dr. Sharpe, consulted-> conservative management, no plans for surgery at present time --- Discharge to home with Oxycodone, plan is for home PT/OT, recommended consideration for OMT, no urgent need for surgical intervention Type 2 DM - Elevated on admission; received Solu-medrol in the ED - Hold home Trulicity - Lantus 45 units BID with ISS CR= 5, CF- 15 --- Return to home regimen Seizure Disorder - Continue home Keppra 1000mg po BID Depression and Anxiety - Continue home buspirone 5mg po QID and duloxetine 60mg po qhs - Continue home trazodone 100mg po qhs COPD - Stable. No acute concerns or signs of exacerbation. No cough, SOB, or wheezing. - Continue home fluticasone/salmeterol, Singulair, and prn albuterol Chronic narcotic use - Pain regimen as noted above under problem #1 - Continue to monitor use --- Goal is to transition patient to lowest effective narcotic dosing regimen GERD - Continue home famotidine and Protonix Dyslipidemia - Documented at prior hospitalization. - Not on a statin at this time. - Encourage patient to discuss as outpatient with PCP MARKI: Carb Consistent Diet Code status: Full code Total Time Total Time Spent Total Time Spent (In Minutes): <30 Discharge Plan Discharge Items Patient Disposition: Home - Self-Care Reason For Visit: BACK PAIN, WEAKNESS, FALLS Discharge Diagnosis: Back Pain Activity: Per Instructions section Non-emergency contact: Primary Care Provider Call non-emergency contact if: you have any medication questions, your symptoms worsen and your pain is not controlled Follow-up/Referrals: Aneudy Pérez MD [Primary Care Provider] - Diet: Carb Consistent or DM2 Addtl Attending Provider Instructions: You were admitted to the hospital for worsening back pain and weakness. During your admission, we worked together to manage your pain and improve your strength. You were evaluated and treated by physical and occupational therapy, I believe that you will benefit from ongoing therapy at home following your discharge from the hospital. It was found that your pain was best managed by Oxycodone 10 mg every 4 hours, this medication will be sent to your pharmacy. Your pain has significantly improved since presentation, and is now under enough control for you to go home to continue therapy. It is our goal to continue to decrease the pain medication to the lowest effective dose. It was discussed that you are likely to benefit from Osteopathic Manipulative Treatment (OMT) from an osteopathic physician (DO) in the area after discharge, this will not only help with your chronic pain, but also aid in facilitating improvement in your strength. At this time, there is no need for urgent surgery, and thus our goal is to improve your pain control and improve your strength over the coming weeks to months. Your previous home medications have not been altered, please continue to take those medications as prescribed. Please follow up with your PCP within 1 week of discharge. It was a pleasure to be a part of your care. Your new medication will be sent to your preferred pharmacy. Dr. Melina Best Pending Studies at Discharge: No Stand-Alone Forms: My [facility], Pain - Opioid Pain Management, Smoking Cessation Medications and DC Order Prescriptions: Continued cyclobenzaprine 10 mg Tablet 10 mg PO BID PRN (Reason: Muscle Spasm) Qty: 0 albuterol sulfate [Ventolin HFA] 90 mcg/actuation Hfa Aerosol Inhaler 2 puff INHALATION Q4H PRN (Reason: Shortness Of Breath Or Wheezing) Qty: 0 Trulicity 4.5 mg/0.5 mL pen injector 4.5 mg SUBCUT WK Qty: 2 1RF Rx Instructions: TUESDAYS-- montelukast [Singulair] 10 mg tablet 10 mg PO HS fluticasone propion-salmeterol [AirDuo RespiClick] 232-14 mcg/actuation aerosol powdr breath activated 2 inh inhalation BID PRN (Reason: Shortness Of Breath) ibuprofen 800 mg tablet 800 mg PO TID PRN (Reason: Pain) promethazine 25 mg tablet 25 mg PO Q6H PRN (Reason: Nausea) aspirin 81 mg Tablet,Delayed Release (Dr/Ec) 81 mg PO QAM cyclosporine [Restasis] 0.05 % Dropperette 2 drp OPHTHALMIC (EYE) Q12H duloxetine 60 mg capsule,delayed release(DR/EC) 60 mg PO HS buspirone 5 mg tablet 5 mg PO QID nystatin [Nyamyc] 100,000 unit/gram powder 1 applic TOPICAL DIRECTED sennosides-docusate sodium [Senokot-S] 8.6-50 mg Tablet 2 tab PO HS Qty: 0 0RF insulin aspart U-100 [Novolog FlexPen U-100 Insulin] 100 unit/mL (3 mL) insulin pen 8 unit SC TID Qty: 15 0RF Rx Instructions: plus sliding scale insulin glargine [Lantus Solostar U-100 Insulin] 100 unit/mL (3 mL) insulin pen 35 unit subcut BID Qty: 1 0RF levetiracetam 1,000 mg tablet 1,000 mg PO BID 30 Days Qty: 60 0RF oxycodone 5 mg tablet 10 mg PO QID PRN (Reason: pain) Qty: 10 0RF Rx Instructions: 1 tab for moderate pain, 2 for severe pain diclofenac sodium 1 % Gel 4 g TOPICAL QID PRN (Reason: Pain) albuterol sulfate 2.5 mg /3 mL (0.083 %) solution for nebulization 2.5 mg inhalation Q6 PRN (Reason: Wheezing) famotidine 40 mg tablet 40 mg PO BID pantoprazole 20 mg tablet,delayed release (DR/EC) 20 mg PO QAM lidocaine 5 % adhesive patch,medicated 1 patch transdermal DAILY PRN (Reason: Pain) fluticasone propionate [Flonase Allergy Relief] 50 mcg/actuation spray,suspension 1 spray INTRANASAL DAILY PRN (Reason: Congestion) trazodone 100 mg tablet 100 mg PO HS polyethylene glycol 3350 [Miralax] 17 gram/dose Powder 17 g PO BID gabapentin 800 mg tablet 800 mg PO TID ondansetron 4 mg tablet,disintegrating 4 mg PO Q6H PRN (Reason: nausea and vomiting) Qty: 12 0RF Discharge Orders: Discharge Order (Routine); Ordered 12/11/22 Ordered By: Larissa Leonardo/Other Patient Handouts: High Blood Sugar (Hyperglycemia), Hypoglycemia (Low Blood Sugar) Admission Data Admit Date/Time: 12/08/22 21:08 Attending Provider: Mike Canchola Admit Provider: Benigno Pastor Primary Care Provider: Aneudy Pérez Other Providers: Kyaw Sharpe ; Benigno Pastor ; [facility]ospice ; [facility],Home Healthcare Other Interventions: Discharge Summary Assessment (RN) Last Done: 12/11/22 14:12 Supervising Physician Co-Signing Physician Notes I personally examined the patient and verified all brennan points of history and exam, discussed case, and agree with decision making with Dr Melina Topetes up to going home, did OMT again today. We will do therapy as an outpatient, will be following close with her PCP. Discussed sending prescription for pain medicineswhich I did, but at the same time on review of PDMP, I had seen that about 153 5 mg oxycodone tabs had been sent across the month of November, and seeing that she was either in the hospital or in [facility] for likely a third of that time, I opted to not risk polypharmacy by sending 10 tablets instead of more. At the same time, she will be able to follow-up with her PCP early next week should further prescriptions be needed, but I would suspect she would have a decent amount of medication left at home. Vitals noted, in general she is awake and alert pleasant no distress. HEENT normocephalic atraumatic mucous membranes moist. Breathing unlabored no accessory muscle use good effort. Skin shows no rashes no pallor or icterus. Neuro without focal deficits. Left-sided pelvic musculature in the region of piriformis high tone, tender, decreased range of motionLAS/inhibitory pressureimproved tissue texture. Patient tolerated well Low back pain/lumbar radiculopathyno need for urgent surgery. Continue, pain control, PT/OT, trial of OMT, home today, close outpatient follow-up. Otherwise as above
--- NOTE | 2022-12-11 19:17 | Billing Data ---
Date of Service December 11, 2022 Coding Level of Care Code 72640 IN/OBS DISCH 30 MIN/LESS
== END 2022-12-11 15:27 | disposition home health service (06) | DRG 552 ==
LOC: ED 18:18 → 3W 21:08 → INTOOBSV 21:08 → SUATTDRO 21:08 → 3W 22:49
DX: Z79.82 Long term (current) use of aspirin; F41.8 Other specified anxiety disorders; Z79.4 Long term (current) use of insulin; F11.20 Opioid dependence, uncomplicated; R53.1 Weakness; E11.9 Type 2 diabetes mellitus without complications; M54.42 Lumbago with sciatica, left side; M48.062 Spinal stenosis, lumbar region with neurogenic claudication; Z87.891 Personal history of nicotine dependence; J44.9 Chronic obstructive pulmonary disease, unspecified; K21.9 Gastro-esophageal reflux disease without esophagitis; G96.191 Perineural cyst; Z91.81 History of falling; Z88.6 Allergy status to analgesic agent; Z88.1 Allergy status to other antibiotic agents; Z79.85 Long-term (current) use of injectable non-insulin antidiabetic drugs; E78.5 Hyperlipidemia, unspecified; Z98.1 Arthrodesis status; G89.29 Other chronic pain; Z79.899 Other long term (current) drug therapy; I10 Essential (primary) hypertension; R26.9 Unspecified abnormalities of gait and mobility; G40.909 Epilepsy, unspecified, not intractable, without status epilepticus

== ENCOUNTER 2022-12-22 18:17 | Observation (INO) ==
[2022-12-22 19:35] LABS: Basophils # (auto) 0.02 K/uL (0-0.2); Basophils % (auto) 0.3 %; Eosinophils # (auto) 0.23 K/uL (0-0.50); Eosinophils % (auto) 3.3 %; Hematocrit (blood only) 42.3 % (37.0-47.0); Hemoglobin 14.5 g/dl (12.0-16.0); Immature Granulocytes # (auto) 0.02 K/uL (0.01-0.20); Immature Granulocytes % (auto) 0.3 %; Lymphocytes # (auto) 1.69 K/uL (1.2-3.4); Lymphocytes % (auto) 24.1 %; Mean Corpuscular Hemoglobin 30.3 pg (25.0-34.0); Mean Corpuscular Hgb Conc 34.3 g/dL (32.0-36.0); Mean Corpuscular Volume 88.3 fL (80.0-100.0); Mean Platelet Volume 11.8 fL (9.4-12.4); Monocytes # (auto) 0.32 K/uL (0.11-0.59); Monocytes % (auto) 4.6 %; Neutrophils # (auto) 4.74 K/uL (1.40-6.50); Neutrophils % (auto) 67.4 %; Platelet Count 165 K/uL (130-400); RDW Coefficient of Variation 14.1 % (11.5-14.5); RDW Standard Deviation 44.8 fL (36.4-46.3); Red Blood Count 4.79 M/uL (4.20-5.40); White Blood Count 7.02 K/ul (4.8-10.8)
--- NOTE | 2022-12-22 19:35 | Emergency Department Note ---
Impression & Plan Hyperglycemia, Uncontrolled type 2 diabetes mellitus, Recurrent falls ED Provider Note NAME: MARCIO FERNANDEZ AGE: 52 SEX: F : 1970 ARRIVES VIA: Walk-In INFORMANT: Patient ED PROVIDER(S): Mike Hurtado DO CHIEF COMPLAINT: Numbness HPI: Patient is a 52-year-old female female who presents the ER with past medical history of opiate dependence, diabetes, lumbar radiculopathy, anxiety depression for recurrent falls. She fell 3 times on Tuesday as well as every day this week. She fell again last night. She has not hit her head. No headache or neck pain. No chest pain or shortness of breath. No belly pain nausea vomiting or diarrhea. She admits to numbness on the left leg and left foot on the plantar surface. She has bilateral numbness on both feet plantar surface. She denies any new numbness or weakness. She is urinating and moving her bowels without difficulty. She notes she spoke with Dr. Mike rodriguez who sent her in to be admitted. PAST MEDICAL HISTORY:See Below PAST SURGICAL HISTORY:See Below FAMILY HISTORY:See Below SOCIAL HISTORY:See Below HOME MEDICATIONS:See Below ALLERGIES:See Below VITALS:See Below PHYSICAL EXAMINATION: GENERAL: Sitting up in bed, alert, well appearing, well nourished, no distress, non-toxic EYE EXAM: normal conjunctiva. PERRL and EOM's grossly intact. OROPHARYNX: no exudate, no erythema, lips, buccal mucosa, and tongue normal and mucous membranes are moist NECK: supple, no nuchal rigidity, no adenopathy, non-tender LUNGS: Clear to auscultation. Normal chest wall mechanics HEART: no murmurs, S1 normal and S2 normal ABDOMEN: abdomen soft, non-tender, normo-active bowel sounds, no masses, no rebound or guarding. BACK: Back is symmetrical on inspection and there is no deformity, no midline tenderness, no CVA tenderness. UPPER EXTREMITIES: upper extremities are grossly normal. LOWER EXTREMITIES: Flexion and extension of the hips, knees, ankles, and EHL 5/5 bilaterally. Gross sensation is intact. DPs are 2/4 bilateral. Patellar and A chilles reflexes are 0/4 bilateral NEURO EXAM: Normal sensorium, cranial nerves II-XII intact, normal speech, no weakness of arms, no weakness of legs. MEDICAL DECISION MAKING: Patient is a 52-year-old female who presents ER for recurrent visits that presents to the ER for recurrent falls. She notes she has paresthesias in her feet which is not new as well as tingling numbness on the left leg which has been new over the past 10 days. No new weakness. Able to urinate and move her bowels. IV was established blood work was obtained. Labs show no significant leukocytosis or anemia. BMP with mild hypokalemia 3.3. LFTs was unremarkable. Blood sugar was elevated at 400. She was given IV fluids and insulin and trended down slightly. Lipase was 8. UA was contaminated. No urinary symptoms. COVID-negative. She is otherwise neurologically intact. No signs of cauda equina. She notes that she was referred in by one of the hospitalist for admission. Discussed with Benigno Pastor for further evaluation management. She was given IV Toradol. Triage Nursing notes reviewed. Limited review of prior medical records performed Vital Signs: reviewed and remarkable for no significant abnormalities Differential diagnosis: Differential diagnoses includes but is not limited to gastritis, peptic ulcer di sease, GERD, gallbladder disease, pancreatitis, small bowel obstruction, appendicitis, diverticulitis, hernia, urinary tract infection, torsion, perforation, trauma, infectious. ER treatment provided: See below Diagnostics interpreted by me include EKG and cardiac monitoring as listed below: -Cardiac Monitoring: An order was placed for continuous cardiac monitoring. The monitor shows a rate of 82 with sinus rhythm. -ECG: none -Laboratory studies:Interpreted by me as stated above in MDM and shown below. Imaging studies: Xrays: As interpreted by me:none CTs show: none Consultation(s): As described in MDM Procedures:none Critical Care: None Past Med/Surg History Medical History Ankle swelling Anxiety Brain cyst Chronic generalized abdominal pain Chronic low back pain with left-sided sciatica Chronic obstructive pulmonary disease Depression Hypertension Hypokalemia Hypomagnesemia Hyponatremia Insulin dependent diabetes mellitus Left hand paresthesia Narcotic abuse Ongoing, documented by PCP since 2013 Neurogenic claudication due to lumbar spinal stenosis Obesity Opiate dependence Opioid abuse Periapical abscess with facial involvement Pulmonary embolism Reports was anticoagulation x 60 days, not on chronic anticoagulation Rash Syncope Thrombocytopenia Tinea corporis Tinea cruris Uncontrolled type 2 diabetes mellitus Surgical History History of laparoscopic cholecystectomy Hx of oral surgery (02/15/20) Acute right submandibular, submental space infection with floor of mouth infection caused by infected lower teeth. Dr. Rios 02/15/20 S/P dilation and curettage S/P laparoscopic hernia repair S/P laparoscopic procedure ovarian cyst surgery Family History Mother , 73 Heart disease Cancer small cell ca lung caused at 73 Father Skin cancer Brother No problems noted. Sister No problems noted. Grandmother (Maternal) , 48 Heart disease T2DM (type 2 diabetes mellitus) Grandmother (Paternal) , 83 Heart disease Kidney disease Uncle T2DM (type 2 diabetes mellitus) Other Diabetes Obesity Denies family history of Ovarian cancer Breast cancer Colorectal cancer Uterine cancer Social History Smoking Status: Former smoker Tobacco Type: Cigarettes Cigarettes Per Day: 5; Second Hand Exposure: Yes; Hx Alcohol Use: No Hx Substance Use: No Preferred Language: Sinhala Communication Ability: Effective Visual Impairment: No Limitations Hearing Ability: Normal Personal Banking Assistant Required: No Beliefs That Will Affect Care: None marital status: Current Living Situation: Alone Current Living Situation Comment: Lives with son (15yo) current occupational status: unemployed 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 How many Children do You have: 1 Feels Safe at Home: Yes Assistive Devices: Bedside Commode, Cane, Walker and Wheelchair Allergies Allergies Allergy/AdvReac Type Severity Reaction Status Date / Time acetaminophen AdvReac Severe LIVER Verified 12/20/22 23:09 COMPLICATIONS cephalexin AdvReac Severe Vomiting Verified 12/20/22 23:09 levofloxacin [From Levaquin] AdvReac Intermediate Vomiting Verified 12/20/22 23:09 Home Meds Home Medications Medication Instructions Recorded Confirmed cyclobenzaprine 10 mg tablet 10 mg PO BID PRN Muscle Spasm ##0 11/18/17 12/22/22 albuterol sulfate 90 mcg/actuation 2 puff inhalation Q4H PRN 02/10/18 12/22/22 aerosol inhaler (Ventolin HFA) Shortness Of Breath Or Wheezing ##0 ibuprofen 800 mg tablet 800 mg PO TID PRN Pain 10/24/19 12/22/22 promethazine 25 mg tablet 25 mg PO Q6H PRN Nausea 10/24/19 12/22/22 fluticasone 232 mcg-salmeterol 14 2 inh inhalation BID PRN Shortness 08/21/20 12/22/22 mcg/actuation breath activated Of Breath powdr (AirDuo RespiClick) montelukast 10 mg tablet 10 mg PO HS 09/01/20 12/22/22 (Singulair) aspirin 81 mg tablet,delayed 81 mg PO QAM 10/28/20 12/22/22 release cyclosporine 0.05 % eye drops in a 2 drp ophthalmic (eye) Q12H 04/17/21 12/22/22 dropperette (Restasis) diclofenac sodium 1 % topical gel 4 g topical QID PRN Pain 07/20/21 12/22/22 albuterol sulfate 2.5 mg/3 mL 2.5 mg inhalation Q6 PRN Wheezing 01/19/22 12/22/22 (0.083 %) solution for nebulization famotidine 40 mg tablet 40 mg PO BID 01/19/22 12/22/22 fluticasone propionate 50 1 spray intranasal DAILY PRN 01/19/22 12/22/22 mcg/actuation nasal Congestion spray,suspension (Flonase Allergy Relief) lidocaine 5 % topical patch 1 patch transdermal DAILY PRN Pain 01/19/22 12/22/22 pantoprazole 20 mg tablet,delayed 20 mg PO QAM 01/19/22 12/22/22 release polyethylene glycol 3350 17 17 g PO BID 01/29/22 12/22/22 gram/dose oral powder (Miralax) trazodone 100 mg tablet 100 mg PO HS 01/29/22 12/22/22 duloxetine 60 mg capsule,delayed 60 mg PO HS 03/12/22 12/22/22 release gabapentin 800 mg tablet 800 mg PO TID 04/05/22 12/22/22 buspirone 5 mg tablet 5 mg PO QID 07/30/22 12/22/22 nystatin 100,000 unit/gram topical 1 applic topical DIRECTED 10/12/22 12/22/22 powder (Nyamyc) meloxicam 15 mg tablet 15 mg PO DAILY 12/20/22 12/22/22 Previous Rx's Medication Instructions Recorded ondansetron 4 mg disintegrating 4 mg PO Q6H PRN nausea and 08/11/22 tablet vomiting #12 tabs dulaglutide 4.5 mg/0.5 mL 4.5 mg (0.5 mL) subcut WK #2 mL 10/06/22 subcutaneous pen injector (Trulicity) insulin aspart U-100 100 unit/mL 8 unit (0.08 mL) SC TID #15 mL 10/23/22 (3 mL) subcutaneous pen (Novolog FlexPen U-100 Insulin aspart) insulin glargine 100 unit/mL (3 35 unit (0.35 mL) subcut BID #1 mL 10/23/22 mL) subcutaneous pen (Lantus Solostar U-100 Insulin) sennosides 8.6 mg-docusate sodium 2 tab PO HS #0 tabs 10/23/22 50 mg tablet (Senokot-S) levetiracetam 1,000 mg tablet 1,000 mg PO BID 30 days #60 tabs 12/11/22 oxycodone 5 mg tablet 10 mg PO QID PRN pain #10 tabs 12/11/22 Results & Data (ED) Vital Signs Vital Signs - 24 hr 12/22/22 18:18 12/22/22 19:17 12/22/22 19:52 Temperature 37 C Temperature Source Temporal Artery Scan Pulse Rate 112 H 101 H Pulse Rate [Apical] 97 H Respiratory Rate 20 18 Respiratory Effort / Characteristics Non-Labored Spontaneous Non-Labored Spontaneous Respiratory Depth Normal Normal Respiratory Pattern Regular Blood Pressure 156/80 H Blood Pressure [Left Arm] 151/62 H Blood Pressure Mean 105 Blood Pressure Mean [Left Arm] 91 Blood Pressure Position [Left Arm] Sitting Pulse Oximetry 98 98 Oxygen Delivery Method Room Air Room Air Sepsis Recent Fever Within 48 Hours No Sepsis New/Unexplained Change in Mental Status No Sepsis Action Taken by Nursing No Action Required 12/22/22 20:10 12/22/22 23:18 Temperature Temperature Source Pulse Rate 108 H Pulse Rate [Apical] 88 Respiratory Rate 22 18 Respiratory Effort / Characteristics Respiratory Depth Respiratory Pattern Blood Pressure 151/62 H Blood Pressure [Left Arm] 116/80 Blood Pressure Mean 91 Blood Pressure Mean [Left Arm] 92 Blood Pressure Position [Left Arm] Semi-fowlers Pulse Oximetry 98 Oxygen Delivery Method Room Air Sepsis Recent Fever Within 48 Hours Sepsis New/Unexplained Change in Mental Status Sepsis Action Taken by Nursing Laboratory Data 12/22/22 19:07 12/22/22 19:07 Lab Results 12/22/22 12/22/22 12/22/22 Range/Units 19:07 19:07 19:07 WBC 7.02 (4.8-10.8) K/ul RBC 4.79 (4.20-5.40) M/uL Hgb 14.5 (12.0-16.0) g/dl Hct 42.3 (37.0-47.0) % MCV 88.3 (80.0-100.0) fL MCH 30.3 (25.0-34.0) pg MCHC 34.3 (32.0-36.0) g/dL RDW Std Deviation 44.8 (36.4-46.3) fL RDW Coeff of Kelli 14.1 (11.5-14.5) % Plt Count 165 (130-400) K/uL MPV 11.8 (9.4-12.4) fL Immature Gran % (Auto) 0.3 % Neut % (Auto) 67.4 % Lymph % (Auto) 24.1 % Wood % (Auto) 4.6 % Eos % (Auto) 3.3 % Baso % (Auto) 0.3 % Neut # (Auto) 4.74 (1.40-6.50) K/uL Lymph # (Auto) 1.69 (1.2-3.4) K/uL Wood # (Auto) 0.32 (0.11-0.59) K/uL Eos # (Auto) 0.23 (0-0.50) K/uL Baso # (Auto) 0.02 (0-0.2) K/uL Immature Gran # (Auto) 0.02 (0.01-0.20) K/uL Sodium 138 (136-145) mmol/L Potassium 3.3 L (3.5-5.1) mmol/L Chloride 107 (98-107) mmol/L Carbon Dioxide 23 (21-32) mmol/L Anion Gap 8 (3-11) BUN 6 (6-23) mg/dl Creatinine 0.66 (0.6-1.2) mg/dl Est Cr Clr Drug Dosing 115.4 ml/min Est GFR ( Amer) 116.1 ml/min Est GFR (Non-Af Amer) 100.1 ml/min BUN/Creatinine Ratio 9.1 L (10-20) Glucose 351 H* (70-99(Fasting)) mg/dl POC Glucose (70-99) mg/dl Calcium 9.6 (8.5-10.1) mg/dl Total Bilirubin 0.6 (0.2-1.0) mg/dl AST 16 (13-39) U/L ALT 18 (7-52) U/L Alkaline Phosphatase 136 H (34-104) U/L Total Protein 8.0 (6.0-8.3) gm/dl Albumin 4.2 (3.4-5.0) gm/dl Globulin 3.8 (2.5-4.0) gm/dl Albumin/Globulin Ratio 1.1 (0.9-2) Lipase 8 L Cancelled (11-82) U/L Urine Color Urine Appearance (Clear) Urine pH (4.5-7.5) Ur Specific [place] (1.000-1.030) Urine Protein (Negative) Urine Glucose (UA) (Negative) Urine Ketones (Negative) Urine Blood (Negative) Urine Nitrite (Negative) Urine Bilirubin (Negative) Urine Urobilinogen (Negative) Ur Leukocyte Esterase (Negative) Urine WBC (Auto) (0-5) /hpf Urine RBC (Auto) (0-4) /hpf U Hyaline Cast (Auto) (0-5) /lpf U Epithel Cells (Auto) (0-5) /lpf Urine Bacteria (Auto) (Negative) Urine Crystals Calcium Oxalate Crystal (None Prsent) SARS-CoV-2, RNA, NAAT (NEGATIVE) 12/22/22 12/22/22 12/22/22 Range/Units 19:11 19:12 19:36 WBC (4.8-10.8) K/ul RBC (4.20-5.40) M/uL Hgb (12.0-16.0) g/dl Hct (37.0-47.0) % MCV (80.0-100.0) fL MCH (25.0-34.0) pg MCHC (32.0-36.0) g/dL RDW Std Deviation (36.4-46.3) fL RDW Coeff of Kelli (11.5-14.5) % Plt Count (130-400) K/uL MPV (9.4-12.4) fL Immature Gran % (Auto) % Neut % (Auto) % Lymph % (Auto) % Wood % (Auto) % Eos % (Auto) % Baso % (Auto) % Neut # (Auto) (1.40-6.50) K/uL Lymph # (Auto) (1.2-3.4) K/uL Wood # (Auto) (0.11-0.59) K/uL Eos # (Auto) (0-0.50) K/uL Baso # (Auto) (0-0.2) K/uL Immature Gran # (Auto) (0.01-0.20) K/uL Sodium (136-145) mmol/L Potassium (3.5-5.1) mmol/L Chloride (98-107) mmol/L Carbon Dioxide (21-32) mmol/L Anion Gap (3-11) BUN (6-23) mg/dl Creatinine (0.6-1.2) mg/dl Est Cr Clr Drug Dosing ml/min Est GFR ( Amer) ml/min Est GFR (Non-Af Amer) ml/min BUN/Creatinine Ratio (10-20) Glucose (70-99(Fasting)) mg/dl POC Glucose 336 H* 352 H* (70-99) mg/dl Calcium (8.5-10.1) mg/dl Total Bilirubin (0.2-1.0) mg/dl AST (13-39) U/L ALT (7-52) U/L Alkaline Phosphatase (34-104) U/L Total Protein (6.0-8.3) gm/dl Albumin (3.4-5.0) gm/dl Globulin (2.5-4.0) gm/dl Albumin/Globulin Ratio (0.9-2) Lipase (11-82) U/L Urine Color Urine Appearance (Clear) Urine pH (4.5-7.5) Ur Specific [place] (1.000-1.030) Urine Protein (Negative) Urine Glucose (UA) (Negative) Urine Ketones (Negative) Urine Blood (Negative) Urine Nitrite (Negative) Urine Bilirubin (Negative) Urine Urobilinogen (Negative) Ur Leukocyte Esterase (Negative) Urine WBC (Auto) (0-5) /hpf Urine RBC (Auto) (0-4) /hpf U Hyaline Cast (Auto) (0-5) /lpf U Epithel Cells (Auto) (0-5) /lpf Urine Bacteria (Auto) (Negative) Urine Crystals Calcium Oxalate Crystal (None Prsent) SARS-CoV-2, RNA, NAAT NEGATIVE (NEGATIVE) 12/22/22 12/22/22 Range/Units 20:04 20:29 WBC (4.8-10.8) K/ul RBC (4.20-5.40) M/uL Hgb (12.0-16.0) g/dl Hct (37.0-47.0) % MCV (80.0-100.0) fL MCH (25.0-34.0) pg MCHC (32.0-36.0) g/dL RDW Std Deviation (36.4-46.3) fL RDW Coeff of Kelli (11.5-14.5) % Plt Count (130-400) K/uL MPV (9.4-12.4) fL Immature Gran % (Auto) % Neut % (Auto) % Lymph % (Auto) % Wood % (Auto) % Eos % (Auto) % Baso % (Auto) % Neut # (Auto) (1.40-6.50) K/uL Lymph # (Auto) (1.2-3.4) K/uL Wood # (Auto) (0.11-0.59) K/uL Eos # (Auto) (0-0.50) K/uL Baso # (Auto) (0-0.2) K/uL Immature Gran # (Auto) (0.01-0.20) K/uL Sodium (136-145) mmol/L Potassium (3.5-5.1) mmol/L Chloride (98-107) mmol/L Carbon Dioxide (21-32) mmol/L Anion Gap (3-11) BUN (6-23) mg/dl Creatinine (0.6-1.2) mg/dl Est Cr Clr Drug Dosing ml/min Est GFR ( Amer) ml/min Est GFR (Non-Af Amer) ml/min BUN/Creatinine Ratio (10-20) Glucose (70-99(Fasting)) mg/dl POC Glucose 400 H* (70-99) mg/dl Calcium (8.5-10.1) mg/dl Total Bilirubin (0.2-1.0) mg/dl AST (13-39) U/L ALT (7-52) U/L Alkaline Phosphatase (34-104) U/L Total Protein (6.0-8.3) gm/dl Albumin (3.4-5.0) gm/dl Globulin (2.5-4.0) gm/dl Albumin/Globulin Ratio (0.9-2) Lipase (11-82) U/L Urine Color Yellow Urine Appearance Cloudy A (Clear) Urine pH 5.5 (4.5-7.5) Ur Specific [place] 1.030 (1.000-1.030) Urine Protein 2+ H (Negative) Urine Glucose (UA) 3+ H (Negative) Urine Ketones Negative (Negative) Urine Blood 2+ H (Negative) Urine Nitrite Negative (Negative) Urine Bilirubin Negative (Negative) Urine Urobilinogen Negative (Negative) Ur Leukocyte Esterase Negative (Negative) Urine WBC (Auto) 5-10 H (0-5) /hpf Urine RBC (Auto) 10-30 H (0-4) /hpf U Hyaline Cast (Auto) 1-5 (0-5) /lpf U Epithel Cells (Auto) >30 H (0-5) /lpf Urine Bacteria (Auto) Negative (Negative) Urine Crystals Not Reportable Calcium Oxalate Crystal Present A (None Prsent) SARS-CoV-2, RNA, NAAT (NEGATIVE) Administered Medications Discontinued Medications Sodium Chloride (Nss 1000ml) 1,000 mls @ 999 mls/hr IV .Q1H1M ONE Stop: 12/22/22 21:14 Last Infusion: 12/22/22 21:40 Dose: 0 mls/hr Documented By: Admin: 12/22/22 20:26 Dose: 999 mls/hr Documented By: Insulin Human Regular (Novolin-R Insulin Per Unit Charge) 5 units IV NOW STA Stop: 12/22/22 20:15 Last Admin: 12/22/22 20:29 Dose: 5 units Documented By: Co-signed By: CRISTINA Ketorolac Tromethamine (Ketorolac Tromethamine 15 Mg/Ml Vial) 10 mg IV NOW ONE Stop: 12/22/22 21:19 Last Admin: 12/22/22 21:28 Dose: 10 mg Documented By: Potassium Chloride (Potassium Chloride Crtab 20 Meq Tabcr) 40 meq PO NOW STA Stop: 12/22/22 20:15 Last Admin: 12/22/22 20:28 Dose: 40 meq Documented By: Discharge Plan Visit Data Chief Complaint: Weakness Stated Complaint: NUMBNESS WAIST DOWN,HYPERGLYCEMIA ED Provider: Mike Hurtado Discharge Problem: Hyperglycemia, Uncontrolled type 2 diabetes mellitus, Recurrent falls Forms Stand Alone Forms: My [facility] Room [facility] Studio Prescriptions Prescriptions: No Action cyclobenzaprine 10 mg Tablet 10 mg PO BID PRN (Reason: Muscle Spasm) Qty: 0 albuterol sulfate [Ventolin HFA] 90 mcg/actuation Hfa Aerosol Inhaler 2 puff INHALATION Q4H PRN (Reason: Shortness Of Breath Or Wheezing) Qty: 0 Trulicity 4.5 mg/0.5 mL pen injector 4.5 mg SUBCUT WK Qty: 2 1RF Rx Instructions: TUESDAYS-- montelukast [Singulair] 10 mg tablet 10 mg PO HS fluticasone propion-salmeterol [AirDuo RespiClick] 232-14 mcg/actuation aerosol powdr breath activated 2 inh inhalation BID PRN (Reason: Shortness Of Breath) ibuprofen 800 mg tablet 800 mg PO TID PRN (Reason: Pain) promethazine 25 mg tablet 25 mg PO Q6H PRN (Reason: Nausea) aspirin 81 mg Tablet,Delayed Release (Dr/Ec) 81 mg PO QAM cyclosporine [Restasis] 0.05 % Dropperette 2 drp OPHTHALMIC (EYE) Q12H duloxetine 60 mg capsule,delayed release(DR/EC) 60 mg PO HS buspirone 5 mg tablet 5 mg PO QID nystatin [Nyamyc] 100,000 unit/gram powder 1 applic TOPICAL DIRECTED sennosides-docusate sodium [Senokot-S] 8.6-50 mg Tablet 2 tab PO HS Qty: 0 0RF insulin aspart U-100 [Novolog FlexPen U-100 Insulin] 100 unit/mL (3 mL) insulin pen 8 unit SC TID Qty: 15 0RF Rx Instructions: plus sliding scale insulin glargine [Lantus Solostar U-100 Insulin] 100 unit/mL (3 mL) insulin pe n 35 unit subcut BID Qty: 1 0RF levetiracetam 1,000 mg tablet 1,000 mg PO BID 30 Days Qty: 60 0RF oxycodone 5 mg tablet 10 mg PO QID PRN (Reason: pain) Qty: 10 0RF Rx Instructions: 1 tab for moderate pain, 2 for severe pain diclofenac sodium 1 % Gel 4 g TOPICAL QID PRN (Reason: Pain) albuterol sulfate 2.5 mg /3 mL (0.083 %) solution for nebulization 2.5 mg inhalation Q6 PRN (Reason: Wheezing) famotidine 40 mg tablet 40 mg PO BID pantoprazole 20 mg tablet,delayed release (DR/EC) 20 mg PO QAM lidocaine 5 % adhesive patch,medicated 1 patch transdermal DAILY PRN (Reason: Pain) fluticasone propionate [Flonase Allergy Relief] 50 mcg/actuation spray,suspension 1 spray INTRANASAL DAILY PRN (Reason: Congestion) trazodone 100 mg tablet 100 mg PO HS polyethylene glycol 3350 [Miralax] 17 gram/dose Powder 17 g PO BID gabapentin 800 mg tablet 800 mg PO TID ondansetron 4 mg tablet,disintegrating 4 mg PO Q6H PRN (Reason: nausea and vomiting) Qty: 12 0RF meloxicam 15 mg tablet 15 mg PO DAILY Referrals Referrals: Aneudy Pérez MD [Primary Care Provider] -
[2022-12-22 20:01] LABS: Albumin Level 4.2 gm/dl (3.4-5.0); Bilirubin,Total 0.6 mg/dl (0.2-1.0); Calcium 9.6 mg/dl (8.5-10.1); Potassium 3.3 mmol/L (3.5-5.1)
[2022-12-22 20:13] LABS: Albumin Globulin Ratio 1.1 (0.9-2); BUN Creatinine Ratio 9.1 (10-20); Creatinine Clr Calc Pharmacy 115.4 ml/min; Est GFR (African American) 116.1 ml/min; Est GFR (Non-African American) 100.1 ml/min; Globulin 3.8 gm/dl (2.5-4.0)
[2022-12-22] MEDS ORDERED: POTASSIUM CHLORIDE CRTAB 20 MEQ TABCR PO STA (20:14)
[2022-12-22] MEDS ORDERED: NovoLIN-R INSULIN PER UNIT CHARGE IV STA (20:14)
[2022-12-22] MEDS ORDERED: SODIUM CHLORIDE 0.9% 1000ML 1,000 ML IV ONE (20:14)
[2022-12-22 20:32] LABS: Appearance Urine Cloudy (Clear); Bacteria Urine Automated Negative (Negative); Bilirubin Urine Negative (Negative); Blood Urine 2+ (Negative); Color Urine Yellow; Epithelial Cell Urine Auto >30 /lpf (0-5); Glucose Urine UA 3+ (Negative); Ketones Urine Negative (Negative); Leukocyte Esterase Urine Negative (Negative); Nitrite Urine Negative (Negative); Protein Urine 2+ (Negative); Urobilinogen Urine Negative (Negative); pH Urine 5.5 (4.5-7.5)
[2022-12-22 20:53] LABS: Calcium Oxalate Crystals Urine Present (None Prsent)
[2022-12-22] MEDS ORDERED: KETOROLAC TROMETHAMINE 15 MG/ML VIAL IV ONE (21:18)
--- NOTE | 2022-12-22 21:37 | History & Physical Report ---
Date of Service December 22, 2022 Assessment & Plan (1) Lumbar back pain with radiculopathy affecting left lower extremity: Plan: Per 12/10/22 ortho spine consult note, 12/09/22 MRI showed marked resolution of postoperative seroma; continues to have a small posterior lateral disc herniation L5-S1 the left.Did not appreciate severe neural compression. "would like to withhold any surgery for as long as possible. Ultimately if she does require surgery at the L5-S1 level prefer that she get a consultation with neurosurgery in light of the scope of her Tarlov cyst and this might need to be addressed at the time of surgery was sent which is outside the scope of my exp ertise." Patient's current presentation w/ exacerbation, but similar to that of previous admissions. The reported 1 episode of fecal incontinence is new. Otherwise, no red flag symptoms. No urinary incontinence. No leukocytosis. CT lumbar and thoracic spines on 12/20/22 did not show acute changes. Will consult ortho spine. (2) Uncontrolled type 2 diabetes mellitus: Plan: s/p 5u IV insulin in the ED. Will order SSI and basal insulin. Pharmacy glycemic consult. Continue home gabapentin for neuropathy. A1c 8.9 11/04/22. PCP to consider alternative to Trulicity given shortage. (3) Ambulatory dysfunction: Plan: PT/OT evals. Oxycodone frequency/dosing increased to 10mg q4h at last admission. This may be partially contributory to the increased falls. Consider slight reduction, e.g. to q6h. (4) Near syncope: Plan: Occurred several days ago. Seen in ED on 12/20/[address]. Monitor on telemetry. (5) Anxiety: Plan: Continue home trazodone. (6) Seizure disorder: Plan: Continue home Keppra. (7) Tarlov cyst: Plan: As per above. (8) Hypertension: Plan: Not on medication. Currently normotensive. Plan DM2 diet. sq Lovenox BID. Full code. Med tele. History of Present Illness Chief Complaint: LLE weakness and pain, falls Primary Care Provider: Aneudy Pérez MD 52 y/o female w/ PMHx of DM2, HTN, cirrhosis, seizure disorder, severe spinal stenosis and multiple hospital admissions (most recently 12/08-12/11) for L lumbosacral radiculopathy, LLE weakness, and pain who presents w/ exacerbation of those symptoms. In the past 10 days, she has had multiple falls, 1 episode of near syncope, 1 episode of fecal incontinence (2 days ago), and 3 ED visits. Patient presents today after another fall and contacting her PCP's office. She reports 10/10 LLE pain, LLE weakness, and bilateral lower extremity numbness, worse on left. She denies fever, chills, chest pain, SOB, or dysuria. No urinary incontinence. She has some pain at her left hip. Jesse was recently rx'd by her PCP, but she has been unable to fill because of the nationwide shortage. She states she ran out of insulin in the past 2 days because she used extra to try to correct her elevated bsgs. She has been out of her oxycodone rx for 3 days. ED course: Toradol. 5u IV insulin. Allergies Allergy/AdvReac Type Severity Reaction Status Date / Time acetaminophen AdvReac Severe LIVER Verified 12/20/22 23:09 COMPLICATIONS cephalexin AdvReac Severe Vomiting Verified 12/20/22 23:09 levofloxacin [From Levaquin] AdvReac Intermediate Vomiting Verified 12/20/22 23:09 Home Medications Medication Instructions Recorded Confirmed Type cyclobenzaprine 10 mg tablet 10 mg PO BID PRN Muscle Spasm ##0 11/18/17 12/22/22 History albuterol sulfate 90 mcg/actuation 2 puff inhalation Q4H PRN 02/10/18 12/22/22 History aerosol inhaler (Ventolin HFA) Shortness Of Breath Or Wheezing ##0 ibuprofen 800 mg tablet 800 mg PO TID PRN Pain 10/24/19 12/22/22 History promethazine 25 mg tablet 25 mg PO Q6H PRN Nausea 10/24/19 12/22/22 History fluticasone 232 mcg-salmeterol 14 2 inh inhalation BID PRN Shortness 08/21/20 12/22/22 History mcg/actuation breath activated Of Breath powdr (AirDuo RespiClick) montelukast 10 mg tablet 10 mg PO HS 09/01/20 12/22/22 History (Singulair) aspirin 81 mg tablet,delayed 81 mg PO QAM 10/28/20 12/22/22 History release cyclosporine 0.05 % eye drops in a 2 drp ophthalmic (eye) Q12H 04/17/21 12/22/22 History dropperette (Restasis) diclofenac sodium 1 % topical gel 4 g topical QID PRN Pain 07/20/21 12/22/22 History albuterol sulfate 2.5 mg/3 mL 2.5 mg inhalation Q6 PRN Wheezing 01/19/22 12/22/22 History (0.083 %) solution for nebulization famotidine 40 mg tablet 40 mg PO BID 01/19/22 12/22/22 History fluticasone propionate 50 1 spray intranasal DAILY PRN 01/19/22 12/22/22 History mcg/actuation nasal Congestion spray,suspension (Flonase Allergy Relief) lidocaine 5 % topical patch 1 patch transdermal DAILY PRN Pain 01/19/22 12/22/22 History pantoprazole 20 mg tablet,delayed 20 mg PO QAM 01/19/22 12/22/22 History release polyethylene glycol 3350 17 17 g PO BID 01/29/22 12/22/22 History gram/dose oral powder (Miralax) trazodone 100 mg tablet 100 mg PO HS 01/29/22 12/22/22 History duloxetine 60 mg capsule,delayed 60 mg PO HS 03/12/22 12/22/22 History release gabapentin 800 mg tablet 800 mg PO TID 04/05/22 12/22/22 History buspirone 5 mg tablet 5 mg PO QID 07/30/22 12/22/22 History ondansetron 4 mg disintegrating 4 mg PO Q6H PRN nausea and 08/11/22 12/22/22 Rx tablet vomiting #12 tabs dulaglutide 4.5 mg/0.5 mL 4.5 mg (0.5 mL) subcut WK #2 mL 10/06/22 12/22/22 Rx subcutaneous pen injector (Trulicity) nystatin 100,000 unit/gram topical 1 applic topical DIRECTED 10/12/22 12/22/22 History powder (Nyamyc) insulin aspart U-100 100 unit/mL 8 unit (0.08 mL) SC TID #15 mL 10/23/22 12/22/22 Rx (3 mL) subcutaneous pen (Novolog FlexPen U-100 Insulin aspart) insulin glargine 100 unit/mL (3 35 unit (0.35 mL) subcut BID #1 mL 10/23/22 12/22/22 Rx mL) subcutaneous pen (Lantus Solostar U-100 Insulin) sennosides 8.6 mg-docusate sodium 2 tab PO HS #0 tabs 10/23/22 12/22/22 Rx 50 mg tablet (Senokot-S) levetiracetam 1,000 mg tablet 1,000 mg PO BID 30 days #60 tabs 12/11/22 12/22/22 Rx oxycodone 5 mg tablet 10 mg PO QID PRN pain #10 tabs 12/11/22 12/22/22 Rx meloxicam 15 mg tablet 15 mg PO DAILY 12/20/22 12/22/22 History Past Med/Surg History Medical History Ankle swelling Anxiety Brain cyst Chronic generalized abdominal pain Chronic low back pain with left-sided sciatica Chronic obstructive pulmonary disease Depression Hypertension Hypokalemia Hypomagnesemia Hyponatremia Insulin dependent diabetes mellitus Left hand paresthesia Narcotic abuse Ongoing, documented by PCP since 2013 Neurogenic claudication due to lumbar spinal stenosis Obesity Opiate dependence Opioid abuse Periapical abscess with facial involvement Pulmonary embolism Reports was anticoagulation x 60 days, not on chronic anticoagulation Rash Syncope Thrombocytopenia Tinea corporis Tinea cruris Uncontrolled type 2 diabetes mellitus Surgical History History of laparoscopic cholecystectomy Hx of oral surgery (02/15/20) Acute right submandibular, submental space infection with floor of mouth infection caused by infected lower teeth. Dr. Rios 02/15/20 S/P dilation and curettage S/P laparoscopic hernia repair S/P laparoscopic procedure ovarian cyst surgery Family History Mother , 73 Heart disease Cancer small cell ca lung caused at 73 Father Skin cancer Brother No problems noted. Sister No problems noted. Grandmother (Maternal) , 48 Heart disease T2DM (type 2 diabetes mellitus) Grandmother (Paternal) , 83 Heart disease Kidney disease Uncle T2DM (type 2 diabetes mellitus) Other Diabetes Obesity Denies family history of Ovarian cancer Breast cancer Colorectal cancer Uterine cancer Social History Smoking Status: Former smoker Tobacco Type: Cigarettes Cigarettes Per Day: 5; Second Hand Exposure: Yes; Do You Dip or Chew Tobacco: No; Tobacco Cessation Education Requested by Patient: No Hx Alcohol Use: No Hx Substance Use: No Preferred Language: Botswanan Communication Ability: Effective Visual Impairment: No Limitations Hearing Ability: Normal Front Sight Attacher Required: No Beliefs That Will Affect Care: None marital status: Current Living Situation: Alone Current Living Situation Comment: Lives with son (15yo) current occupational status: unemployed 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 NAD. Cooperative. HEENT: Atraumatic, normocephalic. EOMI Pulm: CTAB. -wheezes, -rales, -rhonchi. No respiratory distress. Cardiac: RRR, -mrg. No LE edema. Abdominal: Nontender, nondistended, soft. Msk. Mild L hip ttp. Neuro: slightly decreased to light touch at R muro. Strength of lower extremity intact bilat and ankles and knees. Results & Data Results & Data Vital Signs (Past 12 Hours) Vital Signs Temp Pulse Pulse Resp BP BP Pulse Ox 12/22/22 20:10 108 H 22 151/62 H 12/22/22 19:52 101 H 12/22/22 19:17 97 H 18 151/62 H 98 12/22/22 18:18 37 C 112 H 20 156/80 H 98 O2 Del Method 12/22/22 20:10 12/22/22 19:52 12/22/22 19:17 Room Air 12/22/22 18:18 Room Air Laboratory Results Cardiac Enzymes 12/22/22 Range/Units 19:07 AST 16 (13-39) U/L CBC 12/22/22 Range/Units 19:07 WBC 7.02 (4.8-10.8) K/ul RBC 4.79 (4.20-5.40) M/uL Hgb 14.5 (12.0-16.0) g/dl Hct 42.3 (37.0-47.0) % Plt Count 165 (130-400) K/uL Neut # (Auto) 4.74 (1.40-6.50) K/uL Lymph # (Auto) 1.69 (1.2-3.4) K/uL Pine # (Auto) 0.32 (0.11-0.59) K/uL Eos # (Auto) 0.23 (0-0.50) K/uL Baso # (Auto) 0.02 (0-0.2) K/uL Comprehensive Metabolic Panel 12/22/22 Range/Units 19:07 Sodium 138 (136-145) mmol/L Potassium 3.3 L (3.5-5.1) mmol/L Chloride 107 (98-107) mmol/L Carbon Dioxide 23 (21-32) mmol/L BUN 6 (6-23) mg/dl Creatinine 0.66 (0.6-1.2) mg/dl Glucose 351 H* (70-99(Fasting)) mg/dl Calcium 9.6 (8.5-10.1) mg/dl AST 16 (13-39) U/L ALT 18 (7-52) U/L Alkaline Phosphatase 136 H (34-104) U/L Total Protein 8.0 (6.0-8.3) gm/dl Albumin 4.2 (3.4-5.0) gm/dl Intake and Output 12/22/22 12/22/22 12/23/22 14:59 22:59 06:59 Intake Total 1000 / 1000 Balance 1000 / 1000 Intake: IV 1000 / 1000 Sodium Chloride 0.9% 1000ML 1, 1000 / 1000 000 ml @ 999 mls/hr IV .Q1H1M ONE Rx#:[id number] Other: Weight 95.1 kg Weight Measurement Method Chair Scale Patient Weight 12/23/22 06:59 Weight 95.1 kg Code Status & VTE Plan Code Status full Supervising Physician Co-Signing Physician Notes Attending addendum: I have physically seen this patient, have supervised the medical residents activities, and agree with the H&P unless as otherwise noted. Assessment and Plan: Acute on chronic low back pain with left lower extremity radiculopathy/ambulatory dysfunction- Consult her orthopedic surgeon Dr. Sharpe Continue duloxetine 60 mg at bedtime and gabapentin 800 mg 3 times daily Consult PT/OT Diabetes mellitus- Glucose 351 on admission received 5 units IV insulin from the ED Most recent A1c on 11/04/2022 was 8.9 Placed on Accu-Cheks with SSI Near syncope- CT head negative Monitor on telemetry for arrhythmia Anxiety- Continue trazodone Seizure disorder- Continue Keppra Remaining orders and notations as noted Resident Activity Tracking Resident Involvement: Resident Care Provided Care Provided: Adult Hospital Medicine (8) Hypertension Hypertension type: essential hypertension Qualified Code(s): I10 - Essential (primary) hypertension
[2022-12-22] MEDS ORDERED: INSULIN ASPART PER UNIT CHARGE SC STA (23:37)
[2022-12-22] MEDS ORDERED: LANTUS PER UNIT CHARGE SQ STA (23:37)
[2022-12-22] MEDS ORDERED: PHARMACY GLYCEMIC MGMT CONSULT PRN (23:38)
[2022-12-22] MEDS ORDERED: DEXTROSE 50% 50 ML SYRINGE IV PRN (23:38)
[2022-12-22] MEDS ORDERED: GLUCAGON FOR INJ 1 MG VIAL SQ PRN (23:38)
[2022-12-22] MEDS ORDERED: GLUCOSE 10 TAB/TUBE PO PRN (23:38)
[2022-12-22] MEDS ORDERED: CARBOHYDRATES FOR HYPOGLYCEMIA PO PRN (23:38)
[2022-12-22] MEDS ORDERED: GLUCOSE 40% GEL 15 GM TUBE PO PRN (23:38)
[2022-12-22] MEDS ORDERED: traZODone HCL 100 MG TAB PO STA (23:44)
[2022-12-22] MEDS ORDERED: levETIRAcetam 500 MG TAB PO STA (23:44)
[2022-12-22] MEDS ORDERED: GABAPENTIN 800 MG TAB PO STA (23:44)
[2022-12-22] MEDS ORDERED: DULoxetine HCL 60 MG CAP PO STA (23:44)
[2022-12-23] MEDS: oxyCODONE HCL IR 5 MG TAB (IMMEDIATE RELEASE) PO PRN ×4 (01:01→20:35)
[2022-12-23] MEDS ORDERED: LANTUS PER UNIT CHARGE SQ STA (01:31)
[2022-12-23] MEDS ORDERED: FLUTICASONE PROPIONATE NA SPR 16 GM BTL NAE PRN (01:48)
[2022-12-23] MEDS ORDERED: ALBUT/IPRATROP 3MG/0.5MG NEB 3 ML VIAL NEB PRN (01:48)
[2022-12-23] MEDS: INSULIN ASPART PER UNIT CHARGE SC SCH ×5 (04:06→20:29)
--- NOTE | 2022-12-23 07:24 | Hospitalist Progress Note ---
Date of Service December 23, 2022 Assessment & Plan (1) Lumbar back pain with radiculopathy affecting left lower extremity: Plan: Elza is a 52 year-old female with history of chronic lumbar back pain, anxiety/depression, type 2 diabetes mellitus, and seizure disorder who presented to the hospital for worsening left leg pain/weakness. She is s/p lumbar decompression and fusion from October 20, 2022. Lumbar Back Pain with Radiculopathy -S/P Lumbar decompression/spinal fusion (10/2022) -Notes that prior to surgery, symptoms were primarily at right side, but post-op symptoms seem worsened on left lower extremity -At prior admission ortho consult (12/10/2022): small posterior lateral disc herniation L5-S1 on the left -Per ortho, if surgery required- would need neurosurgery consult d/t Tarlov cyst that may need to be addressed simultaneously -Current symptoms: pain radiating down posterior left leg, decreased sensation at dorsal left foot -New symptoms: x2 episodes of bowel incontinence, mild decreased sensation at saddle region. No urinary incontinence. -CT lumbar/thoracic spines (12/20/22) w/o acute changes -Ortho consulted, appreciate rec's -Oxycodone 10mg q4h PRN, Flexeril 10mg BID PRN Type 2 Diabetes Mellitus -SSI and bolus, Pharmacy glycemic consult. -Continue home gabapentin for neuropathy. -A1c 6.9 11/04/22. -PCP to consider alternative to Trulicity given shortage. Ambulatory Dysfunction -PT/OT evals Near Syncope -Occurred several days ago. Seen in ED on 12/20/[address] and [address] -Monitor on telemetry -PT/OT Anxiety -Continue home trazodone Seizure Disorder -Continue home Keppra Tarlov Cyst -As per above. Hypertension -Not on medication, Currently normotensive. DM2 diet. sq Lovenox BID. Full code. Med tele. (2) Uncontrolled type 2 diabetes mellitus: (3) Ambulatory dysfunction: (4) Near syncope: (5) Anxiety: (6) Seizure disorder: Plan: . (7) Tarlov cyst: (8) Hypertension: Admission and Anticipated Discharge Date Admission Date: December 22, 2022 Supervising Physician Co-Signing Physician Notes I personally examined the patient and verified all brennan points of history and exam, discussed case, and agree with decision making with Dr Aubrey back pain. leg weakness. falls at home vitals noted anxious but nad heent nc at mmm breathing unlabored no accessory mucsles good effort. LLE ~3/5 diffuse weakness. diffuse L1-5 sensory diminished by confontational light touch lumbar radiculopathy - pain control, PT. ortho/spine eval, consider transfer for neurosurgery eval. DVT proph - lovenox Gualberto Bertrand is a 52 year-old female with history of chronic lumbar back pain, anxiety/depression, type 2 diabetes mellitus, and seizure disorder who presented to the hospital for worsening left leg pain/weakness. She is s/p lumbar decompression and fusion from October 20, 2022. 12/23: Patient was seen and examined at bedside. She notes that she has had worsening back pain with radiation down her left leg, as well as decreased sensation on the dorsal surface of her left foot. She also notes new numbness in her saddle region and had two episodes of fecal incontinence in the last week. She denies shortness of breath, chest pain, dizziness, abdominal pain, nausea or vomiting. Review of Systems Review of Systems: As per above Physical Exam Constitutional: WD/WN, vitals as above Eyes: Anicteric sclera ENMT: Moist mucous membranes Neck: trachea midline, no thyromegaly Respiratory: normal respiratory effort, lungs clear to auscultation Cardiovascular: RRR, no murmur, no edema Gastrointestinal (Abdomen): normal bowel sounds, soft, nontender, no hepatosplenomegaly Skin: no rashes, warm and dry Neurologic: Decreased sensation at dorsum of left foot. 5/5 strength right LE, 3/5 strength left LE. Reflexes not tested. Psychiatric: A+Ox3, euthymic affect Results & Data Results & Data Vital Signs (Past 12 Hours) Vital Signs Temp Pulse Pulse Resp BP BP Pulse Ox 12/23/22 03:04 91 H 12/23/22 02:45 36.5 C 77 18 131/84 100 12/23/22 01:48 36.5 C 77 18 131/84 100 12/23/22 01:23 12/22/22 23:18 88 18 116/80 98 12/22/22 20:10 108 H 22 151/62 H 12/22/22 19:52 101 H 12/22/22 19:17 97 H 18 151/62 H 98 O2 Del Method 12/23/22 03:04 12/23/22 02:45 Room Air 12/23/22 01:48 Room Air 12/23/22 01:23 Room Air 12/22/22 23:18 Room Air 12/22/22 20:10 12/22/22 19:52 12/22/22 19:17 Room Air Resident Activity Tracking Resident Involvement: Resident Care Provided Care Provided: Adult Hospital Medicine (8) Hypertension Hypertension type: essential hypertension Qualified Code(s): I10 - Essential (primary) hypertension
[2022-12-23 07:57] LABS: Albumin Globulin Ratio 1.3 (0.9-2); BUN Creatinine Ratio 13.8 (10-20); Bilirubin,Total 0.4 mg/dl (0.2-1.0); Calcium 8.1 mg/dl (8.5-10.1); Est GFR (African American) 121.1 ml/min; Est GFR (Non-African American) 104.5 ml/min; Globulin 2.4 gm/dl (2.5-4.0); Magnesium 1.6 mg/dl (1.7-2.4); Potassium 3.4 mmol/L (3.5-5.1); Total Protein 5.4 gm/dl (6.0-8.3)
[2022-12-23 08:10] LABS: Basophils # (auto) 0.02 K/uL (0-0.2); Basophils % (auto) 0.4 %; Eosinophils # (auto) 0.19 K/uL (0-0.50); Eosinophils % (auto) 3.9 %; Hematocrit (blood only) 31.9 % (37.0-47.0); Hemoglobin 10.9 g/dl (12.0-16.0); Immature Granulocytes # (auto) 0.01 K/uL (0.01-0.20); Immature Granulocytes % (auto) 0.2 %; Lymphocytes # (auto) 2.09 K/uL (1.2-3.4); Mean Corpuscular Hemoglobin 30.3 pg (25.0-34.0); Mean Corpuscular Hgb Conc 34.2 g/dL (32.0-36.0); Mean Corpuscular Volume 88.6 fL (80.0-100.0); Mean Platelet Volume 11.9 fL (9.4-12.4); Monocytes # (auto) 0.35 K/uL (0.11-0.59); Monocytes % (auto) 7.2 %; Neutrophils % (auto) 45.3 %; Platelet Count 117 K/uL (130-400); RDW Coefficient of Variation 14.3 % (11.5-14.5); RDW Standard Deviation 46.2 fL (36.4-46.3); White Blood Count 4.86 K/ul (4.8-10.8)
[2022-12-23] MEDS: busPIRone 5 MG TAB PO SCH ×4 (08:35→20:37)
[2022-12-23] MEDS: levETIRAcetam 500 MG TAB PO SCH ×2 (08:36→20:36)
[2022-12-23] MEDS: FAMOTIDINE 40 MG TABLET PO SCH ×2 (08:38→20:37)
[2022-12-23] MEDS: GABAPENTIN 800 MG TAB PO SCH ×3 (08:38→20:36)
[2022-12-23] MEDS: PANTOprazole 40 MG TAB PO SCH (08:38)
[2022-12-23] MEDS: POLYETHYLENE (MIRALAX) 17 GM PACK PO SCH (08:39)
[2022-12-23] MEDS: LANTUS PER UNIT CHARGE SQ SCH ×2 (10:17→20:33)
--- NOTE | 2022-12-23 13:49 | Pharmacy Report ---
Pharmacy Glycemic Short Note 2 - Date of Service December 23, 2022 - Glycemic Short BSG Results (Last 24 hours): 12/22/22 12/22/22 12/22/22 19:07 19:11 19:12 Glucose 351 H* POC Glucose 336 H* 352 H* 12/22/22 12/23/22 12/23/22 20:29 00:55 03:58 Glucose POC Glucose 400 H* 334 H* 292 H 12/23/22 12/23/22 12/23/22 06:56 07:26 11:28 Glucose 196 H POC Glucose 196 H 107 H OUTPATIENT ANTIDIABETIC REGIMEN: * Lantus 35 units SQ BID * Novolog 8 units TID and SSI * Trulicity 4.5 mg SQ every Tuesday ASSESSMENT: * 52 y/o F admitted for back pain and hyperglycemia. Patient with history of Type 2 diabetes managed on basal and bolus insulin and Trulicity at home. * She received total of 50 units of basal insulin last night to make up for missed dose earlier in the day yesterday. * On past admissions patient has received between 60 to 100 units per of just basal insulin. Started with basal 30 units BID for now. * Novolog ordered based on weight and stress of 3. * Fasting BSG was 196 mg/dl. BSG trended down to 107 mg/dl at lunch. Novolog continued the same. PLAN FOR INPATIENT GLYCEMIC CONTROL: * Hold outpatient diabetes medications * Basal insulin * Lantus 30 units SQ BID * Bolus insulin * NovoLog per scale ACHS or Q6hrs while NPO * Goal Range: Low 110 mg/dL - High 140 mg/dL * Correction Factor: 15 mg/dL/unit * Nutritional / Prandial insulin per carb ratio of 1 unit per 5 grams CHO consumed
[2022-12-23] MEDS: CYCLOBENZAPRINE HCL 10 MG TAB PO PRN (14:09)
[2022-12-23] MEDS ORDERED: oxyCODONE HCL IR 5 MG TAB (IMMEDIATE RELEASE) PO STA (16:06)
--- NOTE | 2022-12-23 17:56 | Billing Data ---
Date of Service December 23, 2022 Coding Level of Care Code 43869 SUB INP/OBS CARE MIN
[2022-12-23] MEDS: traZODone HCL 100 MG TAB PO SCH (20:35)
[2022-12-23] MEDS: MONTELUKAST SODIUM 10 MG TABLET PO SCH (20:36)
[2022-12-23] MEDS: DULoxetine HCL 60 MG CAP PO SCH (20:37)
[2022-12-24] MEDS: oxyCODONE HCL IR 5 MG TAB (IMMEDIATE RELEASE) PO PRN ×5 (05:26→23:01)
[2022-12-24 08:15] LABS: Basophils # (auto) 0.02 K/uL (0-0.2); Basophils % (auto) 0.3 %; Eosinophils # (auto) 0.27 K/uL (0-0.50); Eosinophils % (auto) 4.2 %; Hematocrit (blood only) 34.6 % (37.0-47.0); Hemoglobin 11.7 g/dl (12.0-16.0); Immature Granulocytes # (auto) 0.01 K/uL (0.01-0.20); Immature Granulocytes % (auto) 0.2 %; Lymphocytes # (auto) 1.79 K/uL (1.2-3.4); Lymphocytes % (auto) 28.1 %; Mean Corpuscular Hemoglobin 30.1 pg (25.0-34.0); Mean Corpuscular Hgb Conc 33.8 g/dL (32.0-36.0); Mean Corpuscular Volume 88.9 fL (80.0-100.0); Monocytes # (auto) 0.51 K/uL (0.11-0.59); Neutrophils # (auto) 3.77 K/uL (1.40-6.50); Neutrophils % (auto) 59.2 %; Platelet Count 131 K/uL (130-400); RDW Coefficient of Variation 14.6 % (11.5-14.5); RDW Standard Deviation 46.5 fL (36.4-46.3); Red Blood Count 3.89 M/uL (4.20-5.40); White Blood Count 6.37 K/ul (4.8-10.8)
[2022-12-24 08:36] LABS: Albumin Globulin Ratio 1.3 (0.9-2); Albumin Level 3.3 gm/dl (3.4-5.0); BUN Creatinine Ratio 13.9 (10-20); Bilirubin,Total 0.4 mg/dl (0.2-1.0); Calcium 8.5 mg/dl (8.5-10.1); Creatinine Clr Calc Pharmacy 99.1 ml/min; Est GFR (Non-African American) 94.9 ml/min; Globulin 2.5 gm/dl (2.5-4.0); Potassium 3.6 mmol/L (3.5-5.1); Total Protein 5.8 gm/dl (6.0-8.3)
--- NOTE | 2022-12-24 08:45 | Pharmacy Report ---
Pharmacy Glycemic Short Note 2 - Date of Service December 24, 2022 - Glycemic Short BSG Results (Last 24 hours): 12/23/22 12/23/22 12/23/22 11:28 16:24 20:15 Glucose POC Glucose 107 H 128 H 113 H 12/24/22 12/24/22 07:17 07:38 Glucose 146 H POC Glucose 157 H OUTPATIENT ANTIDIABETIC REGIMEN: * Lantus 35 units SQ BID * Novolog 8 units TID and SSI * Trulicity 4.5 mg SQ every Tuesday HbA1c: 8.9% (11/04/22) ASSESSMENT: 12/24/22: * BSGs well-controlled yesterday * Received 92 units of insulin (60 units of basal and 32 units of prandial/correctional bolus) * Fasting BSG of 157 mg/dL, continue current basal * Given relatively tight control yesterday, will slightly loosen carb ratio today 12/23/22: * 52 y/o F admitted for back pain and hyperglycemia. Patient with history of Type 2 diabetes managed on basal and bolus insulin and Trulicity at home. * She received total of 50 units of basal insulin last night to make up for missed dose earlier in the day yesterday. * On past admissions patient has received between 60 to 100 units per of just basal insulin. Started with basal 30 units BID for now. * Novolog ordered based on weight and stress of 3. * Fasting BSG was 196 mg/dl. BSG trended down to 107 mg/dl at lunch. Novolog continued the same. PLAN FOR INPATIENT GLYCEMIC CONTROL: * Hold outpatient diabetes medications * Basal insulin * Lantus 20-30 units SQ BID (see EHR for details) * Bolus insulin * NovoLog per scale ACHS or Q6hrs while NPO * Goal Range: Low 110 mg/dL - High 140 mg/dL * Correction Factor: 15 mg/dL/unit * Nutritional / Prandial insulin per carb ratio of 1 unit per 6 grams CHO consumed
[2022-12-24] MEDS: FAMOTIDINE 40 MG TABLET PO SCH ×2 (09:07→20:39)
[2022-12-24] MEDS: busPIRone 5 MG TAB PO SCH ×4 (09:07→20:38)
[2022-12-24] MEDS: GABAPENTIN 800 MG TAB PO SCH ×3 (09:07→20:39)
[2022-12-24] MEDS: ENOXAPARIN INJ 40 MG/0.4 ML SYR SQ SCH (09:07)
[2022-12-24] MEDS: PANTOprazole 40 MG TAB PO SCH (09:07)
[2022-12-24] MEDS: levETIRAcetam 500 MG TAB PO SCH ×2 (09:07→20:38)
[2022-12-24] MEDS: POLYETHYLENE (MIRALAX) 17 GM PACK PO SCH (09:08)
[2022-12-24] MEDS: INSULIN ASPART PER UNIT CHARGE SC SCH ×5 (09:12→21:15)
[2022-12-24] MEDS: LANTUS PER UNIT CHARGE SQ SCH ×2 (09:14→20:37)
--- NOTE | 2022-12-24 13:41 | Hospitalist Progress Note ---
Date of Service December 24, 2022 Assessment & Plan (1) Lumbar back pain with radiculopathy affecting left lower extremity: Plan: Elza is a 52 year-old female with history of chronic lumbar back pain, anxiety/depression, type 2 diabetes mellitus, and seizure disorder who presented to the hospital for worsening left leg pain/weakness. She is s/p lumbar decompression and fusion from October 20, 2022. Lumbar Back Pain with Radiculopathy -S/P Lumbar decompression/spinal fusion (10/2022) -Notes that prior to surgery, symptoms were primarily at right side, but post-op symptoms seem worsened on left lower extremity -At prior admission ortho consult (12/10/2022): small posterior lateral disc herniation L5-S1 on the left -Per ortho, no indication for emergent procedure -Recommending outpatient referral for neurosurgery evaluation -Current symptoms: pain radiating down posterior left leg, decreased sensation at dorsal left foot -New symptoms: x2 episodes of bowel incontinence, mild decreased sensation at saddle region. No urinary incontinence. -CT lumbar/thoracic spines (12/20/22) w/o acute changes -Ortho consulted, appreciate rec's -Oxycodone 10mg q4h PRN, Flexeril 10mg BID PRN Type 2 Diabetes Mellitus -SSI and bolus, Pharmacy glycemic consult. -Continue home gabapentin for neuropathy. -A1c 6.9 11/04/22. -PCP to consider alternative to Trulicity given shortage. Ambulatory Dysfunction -PT/OT evals Near Syncope -Occurred several days ago. Seen in ED on 12/20/[address] and had [address] -Monitor on telemetry -PT/OT Anxiety -Continue home trazodone Seizure Disorder -Continue home Keppra Tarlov Cyst -As per above. Hypertension -Not on medication, Currently normotensive. DM2 diet. sq Lovenox BID. Full code. Med tele. (2) Uncontrolled type 2 diabetes mellitus: (3) Ambulatory dysfunction: (4) Near syncope: (5) Anxiety: (6) Seizure disorder: Plan: . (7) Tarlov cyst: (8) Hypertension: Admission and Anticipated Discharge Date Admission Date: December 22, 2022 Supervising Physician Co-Signing Physician Notes I personally examined the patient and verified all brennan points of history and exam, discussed case, and agree with decision making with Dr Burgos ongoing pain and weakness. Notes that lack of support at home is a significant barrier. Would like a neurosurgery opinion, but is also open to the idea that this may not be an acutely surgical problem. vitals noted anxious but nad heent nc at mmm breathing unlabored no accessory mucsles good effort. lumbar radiculopathy - pain control, PT. ortho/spine eval appreciated, we will definitely want to get patient her requested second opinion from neurosurgerythe difficult thing will be whether or not transfer is actually indicated, but her social circumstances are going to make it very difficult for any sort of outpatient follow-up. PT/OT eval and treat ongoing, her sister may be able to come up and provide more support. DVT proph - justinox Gualberto Bertrand is a 52 year-old female with history of chronic lumbar back pain, anxiety/depression, type 2 diabetes mellitus, and seizure disorder who presented to the hospital for worsening left leg pain/weakness. She is s/p lumbar decompression and fusion from October 20, 2022. 12/24: Patient was seen and examined at bedside. No acute events overnight. She notes that since increasing her oxycodone regimen yesterday, patient has had improvement in pain control. Also notes that the Flexeril has been helpful. Denies any changes/new symptoms but continues to have some numbness and weakness at her left lower extremities. Denies shortness of breath, chest pain. Notes some abdominal pain, but states that has been chronic since a prior umbilical hernia surgery several years ago. Review of Systems Review of Systems: As per above Physical Exam Constitutional: WD/WN, vitals as above Eyes: Anicteric sclera ENMT: Moist mucous membranes, missing dentition Neck: trachea midline, no thyromegaly Respiratory: normal respiratory effort, lungs clear to auscultation Cardiovascular: RRR, no murmur, no edema Gastrointestinal (Abdomen): normal bowel sounds, soft, nontender, no hepatosplenomegaly Skin: no rashes, warm and dry Neurologic: Per patient, decreased sensation to dorsal surface of left foot. 3/5 strength of LLE to testing, 5/5 strength RLE Psychiatric: A+Ox3, euthymic affect Results & Data Results & Data Vital Signs (Past 12 Hours) Vital Signs Temp Pulse Pulse Resp BP BP Pulse Ox 12/24/22 11:18 36.9 C 88 16 115/71 96 12/24/22 08:15 85 12/24/22 08:04 36.6 C 75 20 109/74 95 12/24/22 03:00 36.8 C 63 18 116/75 99 O2 Del Method 12/24/22 11:18 Room Air 12/24/22 08:15 12/24/22 08:04 Room Air 12/24/22 03:00 Room Air Resident Activity Tracking Resident Involvement: Resident Care Provided Care Provided: Adult Hospital Medicine (8) Hypertension Hypertension type: essential hypertension Qualified Code(s): I10 - Essential (primary) hypertension
--- NOTE | 2022-12-24 13:47 | Orthopedic Consultation ---
Date of Consultation December 24, 2022 Assessment & Plan (1) Lumbar back pain with radiculopathy affecting left lower extremity: Assessment status post lumbar decompression fusion with persistent neuro deficits. Plan at this time she is concerned regarding her Tarlov cyst involving the lumbosacral spine. This had been present for several years. She would like to seek an opinion regarding management. This is outside the scope of my area of expertise. I explained to her we will try to arrange something on an outpatient basis at a tertiary care center. There is nothing urgent at this time that requires intervention. History of Present Illness Reason for Consultation: Leg pain with numbness and tingling Attending Physician: Mike Canchola DO History of Present Illness This is a 52-year-old female known to me the presents with consistent predominantly left leg symptoms. She has a history of this for several years. She did undergo a multilevel lumbar decompression fusion with some improvement of her neurogenic claudication but continues to have persistent strength deficits noted on the left. It has caused some falls when she is at home. She has been in and out of rehab several times since surgery. Today she is quite comfortable she is sitting up at side of bed. Allergies Allergy/AdvReac Type Severity Reaction Status Date / Time acetaminophen AdvReac Severe LIVER Verified 12/20/22 23:09 COMPLICATIONS cephalexin AdvReac Severe Vomiting Verified 12/20/22 23:09 levofloxacin [From Levaquin] AdvReac Intermediate Vomiting Verified 12/20/22 23:09 Home Medications Medication Instructions Recorded Confirmed Type cyclobenzaprine 10 mg tablet 10 mg PO BID PRN Muscle Spasm ##0 11/18/17 12/22/22 History albuterol sulfate 90 mcg/actuation 2 puff inhalation Q4H PRN 02/10/18 12/22/22 History aerosol inhaler (Ventolin HFA) Shortness Of Breath Or Wheezing ##0 ibuprofen 800 mg tablet 800 mg PO TID PRN Pain 10/24/19 12/22/22 History promethazine 25 mg tablet 25 mg PO Q6H PRN Nausea 10/24/19 12/22/22 History fluticasone 232 mcg-salmeterol 14 2 inh inhalation BID PRN Shortness 08/21/20 12/22/22 History mcg/actuation breath activated Of Breath powdr (AirDuo RespiClick) montelukast 10 mg tablet 10 mg PO HS 11/23/20 03/15/23 History (Singulair) aspirin 81 mg tablet,delayed 81 mg PO QAM 10/28/20 12/22/22 History release cyclosporine 0.05 % eye drops in a 2 drp ophthalmic (eye) Q12H 04/17/21 12/22/22 History dropperette (Restasis) diclofenac sodium 1 % topical gel 4 g topical QID PRN Pain 07/20/21 12/22/22 History albuterol sulfate 2.5 mg/3 mL 2.5 mg inhalation Q6 PRN Wheezing 01/19/22 12/22/22 History (0.083 %) solution for nebulization famotidine 40 mg tablet 40 mg PO BID 01/19/22 12/22/22 History fluticasone propionate 50 1 spray intranasal DAILY PRN 01/19/22 12/22/22 History mcg/actuation nasal Congestion spray,suspension (Flonase Allergy Relief) lidocaine 5 % topical patch 1 patch transdermal DAILY PRN Pain 01/19/22 12/22/22 History pantoprazole 20 mg tablet,delayed 20 mg PO QAM 01/19/22 12/22/22 History release polyethylene glycol 3350 17 17 g PO BID 01/29/22 12/22/22 History gram/dose oral powder (Miralax) trazodone 100 mg tablet 100 mg PO HS 01/29/22 12/22/22 History duloxetine 60 mg capsule,delayed 60 mg PO HS 03/12/22 12/22/22 History release gabapentin 800 mg tablet 800 mg PO TID 04/05/22 12/22/22 History buspirone 5 mg tablet 5 mg PO QID 07/30/22 12/22/22 History ondansetron 4 mg disintegrating 4 mg PO Q6H PRN nausea and 08/11/22 12/22/22 Rx tablet vomiting #12 tabs dulaglutide 4.5 mg/0.5 mL 4.5 mg (0.5 mL) subcut WK #2 mL 10/06/22 12/22/22 Rx subcutaneous pen injector (Trulicity) nystatin 100,000 unit/gram topical 1 applic topical DIRECTED 10/12/22 12/22/22 History powder (Nyamyc) insulin aspart U-100 100 unit/mL 8 unit (0.08 mL) SC TID #15 mL 10/23/22 12/22/22 Rx (3 mL) subcutaneous pen (Novolog FlexPen U-100 Insulin aspart) insulin glargine 100 unit/mL (3 35 unit (0.35 mL) subcut BID #1 mL 10/23/22 12/22/22 Rx mL) subcutaneous pen (Lantus Solostar U-100 Insulin) sennosides 8.6 mg-docusate sodium 2 tab PO HS #0 tabs 10/23/22 12/22/22 Rx 50 mg tablet (Senokot-S) levetiracetam 1,000 mg tablet 1,000 mg PO BID 30 days #60 tabs 12/11/22 12/22/22 Rx oxycodone 5 mg tablet 10 mg PO QID PRN pain #10 tabs 12/11/22 12/22/22 Rx meloxicam 15 mg tablet 15 mg PO DAILY 12/20/22 12/22/22 History Patient History Medical History Ankle swelling Anxiety Brain cyst Chronic generalized abdominal pain Chronic low back pain with left-sided sciatica Chronic obstructive pulmonary disease Depression Hypertension Hypokalemia Hypomagnesemia Hyponatremia Insulin dependent diabetes mellitus Left hand paresthesia Narcotic abuse Ongoing, documented by PCP since 2013 Neurogenic claudication due to lumbar spinal stenosis Obesity Opiate dependence Opioid abuse Periapical abscess with facial involvement Pulmonary embolism Reports was anticoagulation x 60 days, not on chronic anticoagulation Rash Syncope Thrombocytopenia Tinea corporis Tinea cruris Uncontrolled type 2 diabetes mellitus Surgical History History of laparoscopic cholecystectomy Hx of oral surgery (02/15/20) Acute right submandibular, submental space infection with floor of mouth infection caused by infected lower teeth. Dr. Rios 02/15/20 S/P dilation and curettage S/P laparoscopic hernia repair S/P laparoscopic procedure ovarian cyst surgery Family History Mother , 73 Heart disease Cancer small cell ca lung caused at 73 Father Skin cancer Brother No problems noted. Sister No problems noted. Grandmother (Maternal) , 48 Heart disease T2DM (type 2 diabetes mellitus) Grandmother (Paternal) , 83 Heart disease Kidney disease Uncle T2DM (type 2 diabetes mellitus) Other Diabetes Obesity Denies family history of Ovarian cancer Breast cancer Colorectal cancer Uterine cancer Social History Smoking Status: Former smoker Tobacco Type: Cigarettes Cigarettes Per Day: 5; Second Hand Exposure: Yes; Do You Dip or Chew Tobacco: No; Tobacco Cessation Education Requested by Patient: No Hx Alcohol Use: No Hx Substance Use: No Preferred Language: Turkmen Communication Ability: Effective Visual Impairment: No Limitations Hearing Ability: Normal Poker Dealer Required: No Beliefs That Will Affect Care: None marital status: Current Living Situation: Alone Current Living Situation Comment: Lives with son (15yo) current occupational status: unemployed 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 She has reasonable strength testing lower extremities. She is cooperative with exam. Sensory appears to be intact. Results & Data Vital Signs (Past 12 Hours) Vital Signs Temp Pulse Pulse Resp BP BP Pulse Ox 12/24/22 11:18 36.9 C 88 16 115/71 96 12/24/22 08:15 85 12/24/22 08:04 36.6 C 75 20 109/74 95 12/24/22 03:00 36.8 C 63 18 116/75 99 O2 Del Method 12/24/22 11:18 Room Air 12/24/22 08:15 12/24/22 08:04 Room Air 12/24/22 03:00 Room Air
--- NOTE | 2022-12-24 18:26 | Billing Data ---
Date of Service December 24, 2022 Coding Level of Care Code 16818 SUB INP/OBS CARE
[2022-12-24] MEDS: CYCLOBENZAPRINE HCL 10 MG TAB PO PRN (20:35)
[2022-12-24] MEDS: DULoxetine HCL 60 MG CAP PO SCH (20:38)
[2022-12-24] MEDS: traZODone HCL 100 MG TAB PO SCH (20:38)
[2022-12-24] MEDS: MONTELUKAST SODIUM 10 MG TABLET PO SCH (20:38)
--- NOTE | 2022-12-25 06:30 | Billing Data ---
Date of Service December 25, 2022 Coding Level of Care Code 36950 INT INP/OBS CARE
--- NOTE | 2022-12-25 06:38 | Hospitalist Progress Note ---
Date of Service December 25, 2022 Assessment & Plan (1) Lumbar back pain with radiculopathy affecting left lower extremity: Plan: Elza is a 52 year-old female with history of chronic lumbar back pain, anxiety/depression, type 2 diabetes mellitus, and seizure disorder who presented to the hospital for worsening left leg pain/weakness. She is s/p lumbar decompression and fusion from October 20, 2022. Lumbar Back Pain with Radiculopathy -S/P Lumbar decompression/spinal fusion (10/2022) -Notes that prior to surgery, symptoms were primarily at right side, but post-op symptoms seem worsened on left lower extremity -At prior admission ortho consult (12/10/2022): small posterior lateral disc herniation L5-S1 on the left -Per ortho, no indication for emergent procedure -Recommending outpatient referral for neurosurgery evaluation -Current symptoms: pain radiating down posterior left leg, decreased sensation at dorsal left foot -New symptoms: x2 episodes of bowel incontinence, mild decreased sensation at saddle region. No urinary incontinence. -CT lumbar/thoracic spines (12/20/22) w/o acute changes -Oxycodone 10mg q4h PRN, Flexeril 10mg BID PRN - Will plan to get repeat MRI of Lumbar Spine do to recent falls and worsening left sided pain Type 2 Diabetes Mellitus -SSI and bolus, Pharmacy glycemic consult. -Continue home gabapentin for neuropathy. -A1c 8.9 11/04/22. -PCP to consider alternative to Trulicity given shortage. Ambulatory Dysfunction -PT/OT evals Near Syncope -Occurred several days ago. Seen in ED on 12/20/[address] and [address] -Monitor on telemetry -PT/OT Anxiety -Continue home trazodone Seizure Disorder -Continue home Keppra Tarlov Cyst -As per above. Hypertension -Not on medication, Currently normotensive. DM2 diet. sq Lovenox BID. Full code. Med tele. (2) Uncontrolled type 2 diabetes mellitus: (3) Ambulatory dysfunction: (4) Near syncope: (5) Anxiety: (6) Seizure disorder: Plan: . (7) Tarlov cyst: (8) Hypertension: Admission and Anticipated Discharge Date Admission Date: December 24, 2022 Supervising Physician Co-Signing Physician Notes I personally examined the patient and verified all brennan points of history and exam, discussed case, and agree with decision making with Dr Keanu R sided back pain now as well. vitals noted anxious but nad heent nc at mmm breathing unlabored no accessory muscles good effort. ost/msk R sided piriformis region musculature high ton e/tender/decreased ROM - LAS, not much favorable tissue change, pt tolerated well lumbar radiculopathy - pain control, PT. ortho/spine eval appreciated, we will definitely want to get patient her requested second opinion from neurosurgerythe difficult thing will be whether or not transfer is actually indicated as i suspect not - patient agrees (and to that end we both agreed that discussing case with on-call weekend coverage would be of very little yield for her), but her social circumstances are going to make it very difficult for any sort of outpatient follow-up. Since she has had many falls and symptoms shifting some - repeat MRI (last was >1 month and many, many falls ago). med management. PT/OT eval and treat ongoing, her sister may be able to come up and provide more support. OMT. probably would benefit from LESI - outpatient pain management (depending on current MRI) DVT proph - lovenox Gualberto Bertrand is a 52 year-old female with history of chronic lumbar back pain, anxiety/depression, type 2 diabetes mellitus, and seizure disorder who presented to the hospital for worsening left leg pain/weakness. She is s/p lumbar decompression and fusion from October 20, 2022. No events overnight. This morning she notes that she has increased right sided pain, left sided back pain about the same from when she was admitted. Slept well last night. Able to get up and walk to bathroom with walker. Review of Systems Review of Systems: As per above Physical Exam Physical Exam: Constitutional: well-appearing, no acute distress HEENT: NCAT, no conjunctival injection CV: regular rhythm, no murmur appreciated, extremities well-perfused, no LE edema Resp: CTABL, no wheezes/rales/rhonchi appreciated, no increased work of breathing MSK: no gross deformities appreciated. Skin: warm, dry, no rash appreciated Neuro: alert, oriented, Strength 5/5 right LE, 3/5 left LE Results & Data Results & Data Vital Signs (Past 12 Hours) Vital Signs Temp Pulse Pulse Resp BP BP Pulse Ox 12/25/22 03:00 36.3 C L 81 18 93/57 L 94 12/25/22 00:00 105 H 12/24/22 22:00 36.7 C 92 H 18 95/60 L 95 12/24/22 21:30 12/24/22 19:00 36.5 C 89 18 110/72 99 O2 Del Method 12/25/22 03:00 Room Air 12/25/22 00:00 12/24/22 22:00 Room Air 12/24/22 21:30 Room Air 12/24/22 19:00 Room Air Resident Activity Tracking Resident Involvement: Resident Care Provided Care Provided: Adult Hospital Medicine (8) Hypertension Hypertension type: essential hypertension Qualified Code(s): I10 - Essential (primary) hypertension
[2022-12-25 07:02] LABS: Basophils # (auto) 0.01 K/uL (0-0.2); Basophils % (auto) 0.2 %; Eosinophils # (auto) 0.24 K/uL (0-0.50); Eosinophils % (auto) 4.7 %; Hemoglobin 11.7 g/dl (12.0-16.0); Immature Granulocytes # (auto) 0.01 K/uL (0.01-0.20); Immature Granulocytes % (auto) 0.2 %; Lymphocytes # (auto) 1.95 K/uL (1.2-3.4); Mean Corpuscular Hemoglobin 30.3 pg (25.0-34.0); Mean Corpuscular Hgb Conc 34.4 g/dL (32.0-36.0); Mean Corpuscular Volume 88.1 fL (80.0-100.0); Mean Platelet Volume 11.5 fL (9.4-12.4); Monocytes % (auto) 9.7 %; Neutrophils # (auto) 2.42 K/uL (1.40-6.50); Neutrophils % (auto) 47.2 %; Platelet Count 133 K/uL (130-400); RDW Coefficient of Variation 14.6 % (11.5-14.5); Red Blood Count 3.86 M/uL (4.20-5.40); White Blood Count 5.13 K/ul (4.8-10.8)
[2022-12-25 07:38] LABS: Albumin Globulin Ratio 1.3 (0.9-2); Albumin Level 3.2 gm/dl (3.4-5.0); BUN Creatinine Ratio 19.4 (10-20); Bilirubin,Total 0.3 mg/dl (0.2-1.0); Calcium 8.8 mg/dl (8.5-10.1); Creatinine Clr Calc Pharmacy 115.8 ml/min; Est GFR (African American) 118.5 ml/min; Est GFR (Non-African American) 102.2 ml/min; Globulin 2.5 gm/dl (2.5-4.0); Potassium 3.9 mmol/L (3.5-5.1); Total Protein 5.7 gm/dl (6.0-8.3)
[2022-12-25] MEDS: busPIRone 5 MG TAB PO SCH ×4 (08:02→21:07)
[2022-12-25] MEDS: GABAPENTIN 800 MG TAB PO SCH ×3 (08:02→21:07)
[2022-12-25] MEDS: levETIRAcetam 500 MG TAB PO SCH ×2 (08:02→21:07)
[2022-12-25] MEDS: PANTOprazole 40 MG TAB PO SCH (08:02)
[2022-12-25] MEDS: FAMOTIDINE 40 MG TABLET PO SCH ×2 (08:02→21:07)
[2022-12-25] MEDS: POLYETHYLENE (MIRALAX) 17 GM PACK PO SCH (08:03)
[2022-12-25] MEDS: ENOXAPARIN INJ 40 MG/0.4 ML SYR SQ SCH (08:03)
[2022-12-25] MEDS: CYCLOBENZAPRINE HCL 10 MG TAB PO PRN (08:06)
[2022-12-25] MEDS: oxyCODONE HCL IR 5 MG TAB (IMMEDIATE RELEASE) PO PRN ×4 (08:06→22:57)
[2022-12-25] MEDS: INSULIN ASPART PER UNIT CHARGE SC SCH ×4 (08:29→21:08)
[2022-12-25] MEDS: LANTUS PER UNIT CHARGE SQ SCH ×2 (08:32→21:08)
[2022-12-25] MEDS ORDERED: diazePAM 5 MG TABLET PO PRN (12:48)
[2022-12-25] MEDS ORDERED: LORazepam 2 MG/1 ML VIAL IV PRN (13:00)
[2022-12-25] MEDS: DICLOFENAC SOD 1% GEL 100 GM TUBE EXT SCH ×3 (13:53→21:07)
[2022-12-25] MEDS: MAGNESIUM SULFATE / D5W 1 GM/100 ML BAG IV SCH ×4 (13:53→21:19)
--- NOTE | 2022-12-25 16:03 | Magnetic Resonance Report ---
MRI OF THE LUMBAR SPINE WITHOUT CONTRAST CLINICAL HISTORY: Worsening Radicular Lumbar Pain. Recent falls. COMPARISON STUDY: Lumbar spine MRI December 09, [address] December 20, 2022. TECHNIQUE: Utilizing a 1.5 Paty magnet and dedicated coil, multiplanar, multiecho imaging of [facility] spine was performed without IV contrast. FINDINGS: For purposes of numbering on this exam, the L5-S1 disc space is assigned to axial image 27of 44. Ther e are postoperative findings consistent with posterior decompression and fusion from L3 through L5. S acral tarlov cyst is unchanged. Operative bed subcutaneous fluid collections have decreased in size. The conus terminates at the lower L1 level. Paravertebral soft tissues are unremarkable. There is no intracanalicular mass or fluid collection. L1-2: The central canal and neural foramen are patent. L2-3: The central canal and neural foramen are patent. L3-4: There is no recurrent central canal stenosis. Neural foramen are suboptimally assessed due to a rtifact. Suspected mild to moderate bilateral neural foraminal stenosis is unchanged. L4-5: There is no recurrent central canal stenosis. Moderate right and mild left neural foraminal dalila nosis is present. L5-S1: A central/left paracentral disc protrusion results in mild to moderate narrowing of the left l ateral recess. This is unchanged. IMPRESSION: 1. Status post L3-L5 posterior decompression and fusion. 2. No lumbar spine fractures. 3. No significant change in appearance of the lumbar spine since MRI of December 10, 2022. Left paracent ral disc protrusion at L5-S1 that results in moderate narrowing of the left lateral recess. 4. Mild to moderate multilevel neural foraminal stenosis. No significant central canal stenosis. ACT 112: Negative or not required by law. Electronically signed by: Dani Cardona M.D. 12/25/2022 4:01 PM
--- NOTE | 2022-12-25 16:43 | Billing Data ---
Date of Service December 25, 2022 Coding Level of Care Code 68280 SUB INP/OBS CARE MIN
[2022-12-25] MEDS: DULoxetine HCL 60 MG CAP PO SCH (21:07)
[2022-12-25] MEDS: MONTELUKAST SODIUM 10 MG TABLET PO SCH (21:07)
[2022-12-25] MEDS: traZODone HCL 100 MG TAB PO SCH (21:07)
[2022-12-25] MEDS: diazePAM 5 MG TABLET PO SCH (21:07)
[2022-12-26 06:42] LABS: Basophils # (auto) 0.01 K/uL (0-0.2); Basophils % (auto) 0.2 %; Eosinophils # (auto) 0.24 K/uL (0-0.50); Eosinophils % (auto) 5.2 %; Hematocrit (blood only) 36.3 % (37.0-47.0); Hemoglobin 12.2 g/dl (12.0-16.0); Immature Granulocytes # (auto) 0.01 K/uL (0.01-0.20); Immature Granulocytes % (auto) 0.2 %; Lymphocytes # (auto) 1.92 K/uL (1.2-3.4); Lymphocytes % (auto) 41.7 %; Mean Corpuscular Hemoglobin 30.3 pg (25.0-34.0); Mean Corpuscular Hgb Conc 33.6 g/dL (32.0-36.0); Mean Corpuscular Volume 90.1 fL (80.0-100.0); Mean Platelet Volume 11.5 fL (9.4-12.4); Monocytes # (auto) 0.57 K/uL (0.11-0.59); Monocytes % (auto) 12.4 %; Neutrophils # (auto) 1.85 K/uL (1.40-6.50); Neutrophils % (auto) 40.3 %; Platelet Count 117 K/uL (130-400); RDW Coefficient of Variation 14.7 % (11.5-14.5); RDW Standard Deviation 48.5 fL (36.4-46.3); Red Blood Count 4.03 M/uL (4.20-5.40)
[2022-12-26 06:59] LABS: Albumin Globulin Ratio 1.3 (0.9-2); Albumin Level 3.3 gm/dl (3.4-5.0); BUN Creatinine Ratio 19.7 (10-20); Bilirubin,Total 0.3 mg/dl (0.2-1.0); Calcium 8.8 mg/dl (8.5-10.1); Creatinine Clr Calc Pharmacy 117.7 ml/min; Est GFR (African American) 119.1 ml/min; Est GFR (Non-African American) 102.8 ml/min; Globulin 2.6 gm/dl (2.5-4.0); Potassium 3.6 mmol/L (3.5-5.1); Total Protein 5.9 gm/dl (6.0-8.3)
--- NOTE | 2022-12-26 07:08 | Hospitalist Progress Note ---
Date of Service December 26, 2022 Assessment & Plan (1) Lumbar back pain with radiculopathy affecting left lower extremity: Plan: Elza is a 52 year-old female with history of chronic lumbar back pain, anxiety/depression, type 2 diabetes mellitus, and seizure disorder who presented to the hospital for worsening left leg pain/weakness. She is s/p lumbar decompression and fusion from October 20, 2022. Lumbar Back Pain with Radiculopathy -S/P Lumbar decompression/spinal fusion (10/2022) -Notes that prior to surgery, symptoms were primarily at right side, but post-op symptoms seem worsened on left lower extremity -At prior admission ortho consult (12/10/2022): small posterior lateral disc herniation L5-S1 on the left -Per ortho, no indication for emergent procedure -Recommending outpatient referral for neurosurgery evaluation -Current symptoms: pain radiating down posterior left leg, decreased sensation at dorsal left foot -New symptoms: x2 episodes of bowel incontinence, mild decreased sensation at saddle region. No urinary incontinence. -CT lumbar/thoracic spines (12/20/22) w/o acute changes - Repeat MRI 12/25 without any changes from prior MRI 12/10 -Continued medical management; Oxycodone 10mg q4h PRN, Flexeril 10mg BID PRN, Valium prn and qhs, Voltaren gel Type 2 Diabetes Mellitus -SSI and bolus, Pharmacy glycemic consult. -Continue home gabapentin for neuropathy. -A1c 8.9 11/04/22. -PCP to consider alternative to Trulicity given shortage. Ambulatory Dysfunction -PT/OT evals Near Syncope -Occurred several days ago. Seen in ED on 12/20/[address] and [address] -Monitor on telemetry -PT/OT Anxiety -Continue home trazodone Seizure Disorder -Continue home Keppra Tarlov Cyst -As per above. Hypertension -Not on medication, Currently normotensive. DM2 diet. sq Lovenox BID. Full code. Med tele. (2) Uncontrolled type 2 diabetes mellitus: (3) Ambulatory dysfunction: (4) Near syncope: (5) Anxiety: (6) Seizure disorder: Plan: . (7) Tarlov cyst: (8) Hypertension: Admission and Anticipated Discharge Date Admission Date: December 24, 2022 Supervising Physician Co-Signing Physician Notes I personally examined the patient and verified all brennan points of history and exam, discussed case, and agree with decision making with Dr Colunga. A bit more tolerable today. Notes that she is somewhat sleepy from medications, but appreciates better pain control at this time. Discussed MRI being very stable, and what that would probably mean in terms of optimal management. See below. Vitals noted, in general she is awake and alert pleasant no distress. Still fairly anxious with a bit of pressured speech but less than before. HEENT normocephalic atraumatic mucous membranes moist. Breathing unlabored no accessory muscle use good effort. Skin shows no rashes no pallor or icterus. Otherwise as above. CBC in the, CMP, glucoses noted. MRI noted. Lumbar radiculopathy -Symptomatic, but no surgical urgency. Have now discussed with patient several times that in her current context, a good majority of patients will see overall stabilization/improvement in the disease process over time and can completely avoid further surgeries. The problem is that "time" is often measured more in months to years. Discussed trying to avoid further surgeries if at all possible. Earlier in her hospital stay we discussed means to get her neurosurgical opinion, but given stability of MRI, as well as local orthopedic/spine input, I am more hesitant to force that issue given that it does not appear that she would be clearly benefiting from a further surgery -Social circumstances do make optimal management a bit more difficult, we discussed this franklythat with more social support, she would be able to focus more on taking care of herself/getting better, and with more support around, she would probably have less anxiety about the situation, making it easier to take care of herself as well. Discussed openly that if she did not live alone, and had better support structure, it would be really reasonable to look at discharge today. Discussed again the possibility of her sister coming up to help, discussed the possibility of short-term private duty caregivers. Apparently her sister is now a new grandmother and she doubts that she will be able to come upbut she will talk with her family about possibly being able to help with the financials of private duty caregiving. Outlined "ideal management": -PT/OT for deconditioning/weakness -Decompression (focused traction) therapy given that this often will alleviate symptoms, and sometimes does lead to some improvement in the disc disease itself (discussed would probably make a referral to Dr. Stephanie DC, [facility] to pursue this) -Outpatient pain management evaluation for possible benefit from [facility] (she was last seen by them in the hospital 6 weeks ago, but it seems that her symptoms were more biomechanical that day, whereas now she does have more persistent left leg radicular symptoms and injection may be beneficial) Medication management (-pleasantly bluntly told patient that I think she probably puts a lot more stock in the medicines being able to help than they dodiscussed that the medicines really do not actually fix the problem at all, but rather simply alleviate symptoms while the problem is getting betterplaced the "percentage of benefit" of med management at about 10% of her current situation - she was aware this was an arbitrary figure but put in place to emphasize that the bulk of getting her better would come from the above strategies and time, not really from "finding the right medications"). Continue current management for now since it is helping, discussed that benzodiazepines like Valium do tend to be a fairly potent muscle relaxant, and the side benefit as an anxiolytic is certainly helpful in the current situation, but discussed that they really cannot be used long-term at allputting a "arbitrary ceiling" of no more than 2 weeks total use, so as to not develop physical dependency. She expressed good understanding of this. Considered corticosteroids, and that may still be an option, but given that she did not get great benefit before and her sugars have also been an issueholding off for now) Disposition somewhat up in the air because of her social circumstances. Uncontrolled type 2 diabetes -She notes difficulty in control due to not being able to get Trulicity at home. We have now discussed on multiple occasions that if she views her type 2 diabetes essentially is a "gap" between the amount of insulin that her pancreas can make and the amount of insulin that her muscles "want" there are a multitude of ways to bridge that gapand right now simply escalated dosing of insulin still following a basal bolus strategy would likely be the easiest way to "bridge that gap" -Sugars have overall been under good control hereand actually on some semblance of total insulin fairly similar to what appears to be her home regimen (basal actually slightly lower, bolus appears higher but hard to gauge exactly what she is bolusing at home)but probably because the hospital diet has less simple/starchy/sugary carbohydrates than most patients consume at home. Subjective Elza is a 52 year-old female with history of chronic lumbar back pain, anxiety/depression, type 2 diabetes mellitus, and seizure disorder who presented to the hospital for worsening left leg pain/weakness. She is s/p lumbar decompression and fusion from October 20, 2022. Doing well. Notes that she slept pain. Pain with some improvement. Continues to have intermittent left side lumbar pain that radiates to left side, generally lasts for less than 20 minutes. Also has concerns of mobility and living alone. Review of Systems Review of Systems: As per above Physical Exam Physical Exam: Constitutional: well-appearing, no acute distress HEENT: NCAT, no conjunctival injection CV: regular rhythm, no murmur appreciated, extremities well-perfused, no LE edema Resp: CTABL, no wheezes/rales/rhonchi appreciated, no increased work of breathing MSK: no gross deformities appreciated. Skin: warm, dry, no rash appreciated Neuro: alert, oriented, Strength 5/5 right LE, 3/5 left LE Results & Data Results & Data Vital Signs (Past 12 Hours) Vital Signs Temp Pulse Resp BP Pulse Ox O2 Del Method 12/25/22 22:25 36.6 C 89 20 100/63 95 Room Air Resident Activity Tracking Resident Involvement: Resident Care Provided Care Provided: Adult Hospital Medicine (8) Hypertension Hypertension type: essential hypertension Qualified Code(s): I10 - Essential (primary) hypertension
[2022-12-26] MEDS: levETIRAcetam 500 MG TAB PO SCH ×2 (08:04→20:55)
[2022-12-26] MEDS: FAMOTIDINE 40 MG TABLET PO SCH ×2 (08:05→20:56)
[2022-12-26] MEDS: GABAPENTIN 800 MG TAB PO SCH ×3 (08:05→20:56)
[2022-12-26] MEDS: busPIRone 5 MG TAB PO SCH ×4 (08:05→20:57)
[2022-12-26] MEDS: PANTOprazole 40 MG TAB PO SCH (08:06)
[2022-12-26] MEDS: POLYETHYLENE (MIRALAX) 17 GM PACK PO SCH (08:06)
[2022-12-26] MEDS: ENOXAPARIN INJ 40 MG/0.4 ML SYR SQ SCH (08:06)
[2022-12-26] MEDS: DICLOFENAC SOD 1% GEL 100 GM TUBE EXT SCH ×4 (08:06→20:57)
[2022-12-26] MEDS: oxyCODONE HCL IR 5 MG TAB (IMMEDIATE RELEASE) PO PRN ×4 (08:11→20:54)
[2022-12-26] MEDS: INSULIN ASPART PER UNIT CHARGE SC SCH ×4 (09:11→20:52)
[2022-12-26] MEDS: LANTUS PER UNIT CHARGE SQ SCH ×2 (09:12→20:52)
--- NOTE | 2022-12-26 14:08 | Billing Data ---
Date of Service December 26, 2022 Coding Level of Care Code 28971 SUB INP/OBS CARE MIN
[2022-12-26] MEDS: DULoxetine HCL 60 MG CAP PO SCH (20:56)
[2022-12-26] MEDS: MONTELUKAST SODIUM 10 MG TABLET PO SCH (20:56)
[2022-12-26] MEDS: diazePAM 5 MG TABLET PO SCH (20:58)
[2022-12-26] MEDS: traZODone HCL 100 MG TAB PO SCH (21:53)
[2022-12-27] MEDS: oxyCODONE HCL IR 5 MG TAB (IMMEDIATE RELEASE) PO PRN ×4 (03:57→17:13)
--- NOTE | 2022-12-27 06:55 | Hospitalist Progress Note ---
Date of Service December 27, 2022 Assessment & Plan (1) Lumbar back pain with radiculopathy affecting left lower extremity: Plan: Elza is a 52 year-old female with history of chronic lumbar back pain s/p lumbar decompression and fusion from 10/20/2022, anxiety/depression, type 2 diabetes mellitus, and seizure disorder who presented to the hospital for worsening left leg pain/weakness and was admitted for evaluation now s/o repeat MRI which did not show any changes. Patient has several social stressors that contribute to her condition. Lumbar Back Pain with Radiculopathy s/p lumbar decompression/spinal fusion (10/2022) - prior to surgery, symptoms were primarily at right side, but post-op symptoms seem worsened on left lower extremity. Current symptoms: pain radiating down posterior left leg, decreased sensation at dorsal left foot, x2 episodes of bowel incontinence, mild decreased sensation at saddle region. No urinary incontinence. Imaging: CT lumbar/thoracic spines (12/20/22) w/o acute changes Patient was admitted 12/10/2022 and ortho was consulted - small posterior lateral disc herniation L5-S1 on the left, no indication for emergent procedure, recommended outpatient referral to neurosurg Repeat MRI 12/25 no changes from prior MRI Continued medical management; Oxycodone 10mg q4h PRN, Flexeril 10mg BID PRN, Valium prn and qhs, Voltaren gel Could consider epidural steroids, traction with Dr. Brown, PT/OT outpatient for pain management - CM aware Type 2 Diabetes Mellitus SSI and bolus, Pharmacy glycemic consult. Continue home gabapentin for neuropathy. A1c 8.9 11/04/22. PCP to consider alternative to Trulicity given shortage. Ambulatory Dysfunction PT/OT evals Near Syncope Occurred several days ago. Seen in ED on 12/20/[address] and [address] Monitor on telemetry. PT/OT Anxiety Continue home trazodone Seizure Disorder Continue home Keppra Tarlov Cyst As per above. Hypertension Not on medication, Currently normotensive. Diet: DM2 DVT ppx: Lovenox BID. Code status: Full code. Dispo: Med tele (2) Uncontrolled type 2 diabetes mellitus: (3) Ambulatory dysfunction: (4) Near syncope: (5) Anxiety: (6) Seizure disorder: Plan: . (7) Tarlov cyst: (8) Hypertension: Admission and Anticipated Discharge Date Admission Date: December 24, 2022 Supervising Physician Co-Signing Physician Notes 52 yr old female with past medical history above, s/p multilevel lumbar decompression and fusion Oct 2021 on admission for persistent left lumbar radiculopathy and ambulatory dysfunction. No acute changes on MRI. PT working with patient for safe discharge. Will continue to monitor for pain control. Subjective Patient continues to have intermittent left lower extremity pain with occasional right lower extremity pain. Improves with pain medication. No f/c/SOB/CP/n/v Review of Systems Review of Systems: As per above Physical Exam Physical Exam: Constitutional: well-appearing, no acute distress HEENT: NCAT, no conjunctival injection CV: regular rhythm, no murmur appreciated, extremities well-perfused, no LE edema Resp: CTABL, no wheezes/rales/rhonchi appreciated, no increased work of breathing MSK: no gross deformities appreciated. Skin: warm, dry, no rash appreciated Neuro: alert, oriented Results & Data Results & Data Vital Signs (Past 12 Hours) Vital Signs Temp Pulse Resp BP Pulse Ox O2 Del Method 12/26/22 22:00 37.2 C 102 H 20 128/76 95 Room Air Laboratory Results 12/27/22 08:38 12/27/22 08:38 Resident Activity Tracking Resident Involvement: Resident Care Provided Care Provided: Adult Hospital Medicine (8) Hypertension Hypertension type: essential hypertension Qualified Code(s): I10 - Essential (primary) hypertension
[2022-12-27] MEDS ORDERED: LOPERAMIDE HCL 2 MG CAP PO STA (07:42)
[2022-12-27] MEDS: FAMOTIDINE 40 MG TABLET PO SCH ×2 (08:40→21:10)
[2022-12-27] MEDS: busPIRone 5 MG TAB PO SCH ×4 (08:40→21:11)
[2022-12-27] MEDS: PANTOprazole 40 MG TAB PO SCH (08:41)
[2022-12-27] MEDS: GABAPENTIN 800 MG TAB PO SCH ×3 (08:41→21:10)
[2022-12-27] MEDS: levETIRAcetam 500 MG TAB PO SCH ×2 (08:41→21:10)
[2022-12-27] MEDS: POLYETHYLENE (MIRALAX) 17 GM PACK PO SCH (08:41)
[2022-12-27] MEDS: DICLOFENAC SOD 1% GEL 100 GM TUBE EXT SCH ×4 (08:42→21:11)
[2022-12-27] MEDS: ENOXAPARIN INJ 40 MG/0.4 ML SYR SQ SCH (08:42)
[2022-12-27 09:00] LABS: Hematocrit (blood only) 37.6 % (37.0-47.0); Hemoglobin 12.7 g/dl (12.0-16.0); Mean Corpuscular Hgb Conc 33.8 g/dL (32.0-36.0); Mean Corpuscular Volume 88.7 fL (80.0-100.0); Mean Platelet Volume 11.5 fL (9.4-12.4); Platelet Count 143 K/uL (130-400); RDW Coefficient of Variation 14.8 % (11.5-14.5); RDW Standard Deviation 48.4 fL (36.4-46.3); Red Blood Count 4.24 M/uL (4.20-5.40); White Blood Count 6.05 K/ul (4.8-10.8)
[2022-12-27] MEDS ORDERED: LANTUS PER UNIT CHARGE SQ ONE (09:00)
[2022-12-27 09:16] LABS: Calcium 9.3 mg/dl (8.5-10.1); Creatinine Clr Calc Pharmacy 95.8 ml/min; Est GFR (African American) 104.7 ml/min; Est GFR (Non-African American) 90.4 ml/min; Potassium 3.9 mmol/L (3.5-5.1)
[2022-12-27] MEDS: INSULIN ASPART PER UNIT CHARGE SC SCH ×4 (09:35→21:15)
--- NOTE | 2022-12-27 14:30 | Pharmacy Report ---
Pharmacy Glycemic Short Note 2 - Date of Service December 27, 2022 - Glycemic Short BSG Results (Last 24 hours): 12/26/22 12/26/22 12/27/22 17:14 20:44 08:02 Glucose POC Glucose 133 H 248 H 236 H 12/27/22 12/27/22 08:38 12:09 Glucose 223 H POC Glucose 144 H OUTPATIENT ANTIDIABETIC REGIMEN: * Lantus 35 units SQ BID * Novolog 8 units TID and SSI * Trulicity 4.5 mg SQ every Tuesday HbA1c: 8.9% (11/04/22) ASSESSMENT: 12/27/22 * BSGs yesterday [id number] mg/dL. Today's BSGs are 236-144 mg/dL. * Patient received 119 units of insulin yesterday (60 units of basal and 59 units of bolus). * Increase basal to 70 units today as per previous hospitalizations, that is typically tolerated. * Tightened CR slightly. Continued CF as patient corrects appropriately when BSG elevated. 12/24/22: * BSGs well-controlled yesterday * Received 92 units of insulin (60 units of basal and 32 units of prandial/correctional bolus) * Fasting BSG of 157 mg/dL, continue current basal * Given relatively tight control yesterday, will slightly loosen carb ratio today 12/23/22: * 52 y/o F admitted for back pain and hyperglycemia. Patient with history of Type 2 diabetes managed on basal and bolus insulin and Trulicity at home. * She received total of 50 units of basal insulin last night to make up for missed dose earlier in the day yesterday. * On past admissions patient has received between 60 to 100 units per of just basal insulin. Started with basal 30 units BID for now. * Novolog ordered based on weight and stress of 3. * Fasting BSG was 196 mg/dl. BSG trended down to 107 mg/dl at lunch. Novolog continued the same. PLAN FOR INPATIENT GLYCEMIC CONTROL: * Hold outpatient diabetes medications * Basal insulin * Lantus 40 units SQ AM and 30 units HS * Bolus insulin * NovoLog per scale ACHS or Q6hrs while NPO * Goal Range: Low 110 mg/dL - High 140 mg/dL * Correction Factor: 12 mg/dL/unit * Nutritional / Prandial insulin per carb ratio of 1 unit per 4 grams CHO consumed
[2022-12-27] MEDS ORDERED: LOPERAMIDE HCL 2 MG CAP PO PRN (16:42)
[2022-12-27] MEDS: DULoxetine HCL 60 MG CAP PO SCH (21:10)
[2022-12-27] MEDS: MONTELUKAST SODIUM 10 MG TABLET PO SCH (21:10)
[2022-12-27] MEDS: traZODone HCL 100 MG TAB PO SCH (21:11)
[2022-12-27] MEDS: LANTUS PER UNIT CHARGE SQ SCH (21:15)
[2022-12-28] MEDS: diazePAM 5 MG TABLET PO SCH ×2 (01:28→21:20)
[2022-12-28] MEDS: oxyCODONE HCL IR 5 MG TAB (IMMEDIATE RELEASE) PO PRN ×5 (06:23→23:22)
--- NOTE | 2022-12-28 06:41 | Hospitalist Progress Note ---
Date of Service December 28, 2022 Assessment & Plan (1) Lumbar back pain with radiculopathy affecting left lower extremity: Plan: Elza is a 52 year-old female with history of chronic lumbar back pain s/p lumbar decompression and fusion from 10/20/2022, anxiety/depression, type 2 diabetes mellitus, and seizure disorder who presented to the hospital for worsening left leg pain/weakness and was admitted for evaluation now s/o repeat MRI which did not show any changes. Patient has several social stressors that contribute to her condition anticipate discharge tomorrow. Lumbar Back Pain with Radiculopathy s/p lumbar decompression/spinal fusion (10/2022) - prior to surgery, symptoms were primarily at right side, but post-op symptoms seem worsened on left lower extremity. Current symptoms: pain radiating down posterior left leg, decreased sensation at dorsal left foot, x2 episodes of bowel incontinence, mild decreased sensation at saddle region. No urinary incontinence. Imaging: CT lumbar/thoracic spines (12/20/22) w/o acute changes Patient was admitted 12/10/2022 and ortho was consulted - small posterior lateral disc herniation L5-S1 on the left, no indication for emergent procedure, recommended outpatient referral to neurosurg Repeat MRI 12/25 no changes from prior MRI Continued medical management; Oxycodone 10mg q4h PRN, Flexeril 10mg BID PRN, Valium prn and qhs, Voltaren gel Could consider epidural steroids, traction with Dr. Brown, PT/OT outpatient for pain management - CM aware Type 2 Diabetes Mellitus SSI and bolus, Pharmacy glycemic consult. Continue home gabapentin for neuropathy. A1c 8.9 11/04/22. PCP to consider alternative to Trulicity given shortage. Ambulatory Dysfunction PT/OT evals Near Syncope Occurred several days ago. Seen in ED on 12/20/[address] and [address] Monitor on telemetry. PT/OT Anxiety Continue home trazodone Seizure Disorder Continue home Keppra Tarlov Cyst As per above. Hypertension Not on medication, Currently normotensive. Diet: DM2 DVT ppx: Lovenox BID. Code status: Full code. Dispo: Med tele (2) Uncontrolled type 2 diabetes mellitus: (3) Ambulatory dysfunction: (4) Near syncope: (5) Anxiety: (6) Seizure disorder: Plan: . (7) Tarlov cyst: (8) Hypertension: Admission and Anticipated Discharge Date Admission Date: December 24, 2022 Supervising Physician Co-Signing Physician Notes 52 yr old female with past medical history above, s/p multilevel lumbar decompression and fusion Oct 2021 on admission for persistent left lumbar radiculopathy and ambulatory dysfunction. Anticipate discharge home tomorrow with home health, DME commode ordered for discharge. Patient frustrated with labile BGs and will require alternative to Trulicity. Will continue to monitor for pain control. Discussed importance of engagement with activities to facilitate strengthening. Physical therapy to evaluate tomorrow prior to discharge. Subjective Patient continues to have intermittent left lower extremity pain with occasional right lower extremity pain. Improves with pain medication. No f/c/SOB/CP/n/v Review of Systems Review of Systems: As per above Physical Exam Physical Exam: Constitutional: well-appearing, no acute distress HEENT: NCAT, no conjunctival injection CV: regular rhythm, no murmur appreciated, extremities well-perfused, no LE edema Resp: CTABL, no wheezes/rales/rhonchi appreciated, no increased work of breathing MSK: no gross deformities appreciated. Skin: warm, dry, no rash appreciated Neuro: alert, oriented Results & Data Results & Data Vital Signs (Past 12 Hours) Vital Signs Temp Pulse Resp BP Pulse Ox O2 Del Method 12/27/22 22:00 36.9 C 88 16 110/72 97 Room Air 12/27/22 20:43 36.9 C 98 H 18 105/64 95 Room Air Laboratory Results 12/28/22 06:29 12/28/22 06:29 Resident Activity Tracking Resident Involvement: Resident Care Provided Care Provided: Adult Hospital Medicine (8) Hypertension Hypertension type: essential hypertension Qualified Code(s): I10 - Essential (primary) hypertension
[2022-12-28 07:18] LABS: Hematocrit (blood only) 38.3 % (37.0-47.0); Hemoglobin 12.8 g/dl (12.0-16.0); Mean Corpuscular Hemoglobin 30.2 pg (25.0-34.0); Mean Corpuscular Hgb Conc 33.4 g/dL (32.0-36.0); Mean Corpuscular Volume 90.3 fL (80.0-100.0); Mean Platelet Volume 11.8 fL (9.4-12.4); Platelet Count 152 K/uL (130-400); RDW Coefficient of Variation 15.1 % (11.5-14.5); RDW Standard Deviation 49.8 fL (36.4-46.3); Red Blood Count 4.24 M/uL (4.20-5.40); White Blood Count 5.88 K/ul (4.8-10.8)
[2022-12-28 07:38] LABS: BUN Creatinine Ratio 15.9 (10-20); Calcium 9.2 mg/dl (8.5-10.1); Est GFR (African American) 117.9 ml/min; Est GFR (Non-African American) 101.7 ml/min; Potassium 3.5 mmol/L (3.5-5.1)
[2022-12-28] MEDS: busPIRone 5 MG TAB PO SCH ×4 (08:08→21:22)
[2022-12-28] MEDS: GABAPENTIN 800 MG TAB PO SCH ×3 (08:09→21:21)
[2022-12-28] MEDS: FAMOTIDINE 40 MG TABLET PO SCH ×2 (08:09→21:22)
[2022-12-28] MEDS: levETIRAcetam 500 MG TAB PO SCH ×2 (08:09→21:21)
[2022-12-28] MEDS: PANTOprazole 40 MG TAB PO SCH (08:10)
[2022-12-28] MEDS: FLUTICASONE/VILANTEROL 100/25MCG 14 PUFFS/INHALER INH SCH (08:11)
[2022-12-28] MEDS: DICLOFENAC SOD 1% GEL 100 GM TUBE EXT SCH ×4 (08:11→21:20)
[2022-12-28] MEDS: POLYETHYLENE (MIRALAX) 17 GM PACK PO SCH (08:12)
[2022-12-28] MEDS: ENOXAPARIN INJ 40 MG/0.4 ML SYR SQ SCH (08:13)
[2022-12-28] MEDS ORDERED: LANTUS PER UNIT CHARGE SQ ONE (09:00)
[2022-12-28] MEDS: INSULIN ASPART PER UNIT CHARGE SC SCH ×4 (09:07→21:20)
[2022-12-28] MEDS ORDERED: ONDANSETRON 4 MG OD TAB PO PRN (12:08)
[2022-12-28] MEDS ORDERED: LANTUS PER UNIT CHARGE SQ SCH (21:00)
[2022-12-28] MEDS: MONTELUKAST SODIUM 10 MG TABLET PO SCH (21:22)
[2022-12-28] MEDS: DULoxetine HCL 60 MG CAP PO SCH (21:22)
[2022-12-28] MEDS: traZODone HCL 100 MG TAB PO SCH (21:22)
--- NOTE | 2022-12-29 07:11 | Discharge Summary ---
Date of Service December 29, 2022 Admission HPI Per Admitting Provider Patient is a 52yo female with PMHx of DM2, cirrhosis, HTN, seizure disorder, and severe spinal stenosis presenting with acute on chronic back pain and LLE pain/weakness. Patient has had multiple recent hospitalizations associated with her back pain. She was admitted at [facility] from 10/12/22 to 10/23/22 for severe back pain and during that hospitalization, on 10/20/22, she had an L3-L5 decompression and fusion performed by Dr. Sharpe w/ ortho-spine. She was discharged to inpatient rehab on 10/23/22. She subsequently returned to [facility] on 11/02/22, the day that she was discharged from inpatient rehab, due to uncontrolled pain and a fall; she was admitted 11/02/22-11/08/22 and discharged home with home health support. Patient returned again on 11/19/22 for worsening low back pain and R leg weakness; admitted 11/20/22-11/25/22 and [address] [facility]. Patient states that after discharge from [facility] about 1.5 weeks ago, she was doing well and ambulating w/o assistive device. However, she has had recurrent progre ssive left low back pain with left lower extremity weakness. Specifically, patient reports worsening pain and weakness of the LLE along with progressive left low back pain for the past 2 days. She has had about 3 falls over the past 3 days with the last fall occuring yesterday. Patient had a telehealth appointment today w/ a provider at PCP office and she was referred to the ED for further evaluation. Patient states that the back pain radiates continuously through the left posterior lateral leg all the way to the toes. She has + numbness/tingling in the left foot. There is some weakness of the LLE which is limiting her ability to ambulate. Patient reports associated decreased appetite and nausea secondary to pain but denies vomiting. She denies fever, CP, SOB, abd pain. Patient denies saddle anesthesia, urinary incontinence, or fecal incontinence. In the ER, patient has remained hemodynamically stable. She is afebrile. No indication for repeat MRI at this time. Glucose is elevated at 271. Labs are otherwise unremarkable with no leukocytosis, anemia, or electrolyte derangements. Tested negative for COVID. ER course: IVF w/ 500cc NSS, morphine, zofran, and solumedrol Admission Exam Per Admitting Provider General: Grossly A&O. NAD. Cooperative. HEENT: Atraumatic, normocephalic. EOMI Pulm: CTAB. -wheezes, -rales, -rhonchi. No respiratory distress. Cardiac: RRR, -mrg. No LE edema. Abdominal: Nontender, nondistended, soft. Msk. Mild L hip ttp. Neuro: slightly decreased to light touch at R muro. Strength of lower extremity intact bilat and ankles and knees. Principal Diagnosis LLE weakness Discharge Exam Constitutional: well-appearing, no acute distress HEENT: NCAT, no conjunctival injection CV: regular rhythm, no murmur appreciated, extremities well-perfused, no LE edema Resp: CTABL, no wheezes/rales/rhonchi appreciated, no increased work of breathing MSK: no gross deformities appreciated. 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 Recent falls. COMPARISON STUDY: Lumbar spine MRI December 09, [address] December 20, 2022. TECHNIQUE: Utilizing a 1.5 Paty magnet and dedicated coil, multiplanar, multiecho imaging of the lumbar spine was performed without IV contrast. FINDINGS: For purposes of numbering on this exam, the L5-S1 disc space is assigned to axial image 27of 44. There are postoperative findings consistent with posterior decompression and fusion from L3 through L5. Sacral tarlov cyst is unchanged. Operative bed subcutaneous fluid collections have decreased in size. The conus terminates at the lower L1 level. Paravertebral soft tissues are unremarkable. There is no intracanalicular mass or fluid collection. L1-2: The central canal and neural foramen are patent. L2-3: The central canal and neural foramen are patent. L3-4: There is no recurrent central canal stenosis. Neural foramen are suboptimally assessed due to artifact. Suspected mild to moderate bilateral neural foraminal stenosis is unchanged. L4-5: There is no recurrent central canal stenosis. Moderate right and mild left neural foraminal stenosis is present. L5-S1: A central/left paracentral disc protrusion results in mild to moderate narrowing of the left lateral recess. This is unchanged. IMPRESSION: 1. Status post L3-L5 posterior decompression and fusion. 2. No lumbar spine fractures. 3. No significant change in appearance of the lumbar spine since MRI of December 10, 2022. Left paracentral disc protrusion at L5-S1 that results in moderate narrowing of the left lateral recess. 4. Mild to moderate multilevel neural foraminal stenosis. No significant central canal stenosis. 12/25/22 12:21 MRI Lumbar Spine [MR lumbar spine wo con] Routine Hospital Course (1) Lumbar back pain with radiculopathy affecting left lower extremity: Elza is a 52 year-old female with history of chronic lumbar back pain s/p lumbar decompression and fusion from 10/20/2022, anxiety/depression, type 2 diabetes mellitus, and seizure disorder who presented to the hospital for worsening left leg pain/weakness and was admitted for evaluation now s/o repeat MRI which did not show any changes anticipate discharge today. Patient reported having a fall this morning in the bathroom in which she hit her head on the toilet. No scalp lacerations or signs of trauma. Not a witnessed event. No nursing documentation noted. Patient to be seen by PT today. Last seen 12/27. Awaiting PT evaluation prior to discharge. Call out to PT. Lumbar Back Pain with Radiculopathy s/p lumbar decompression/spinal fusion (10/2022) - prior to surgery, symptoms were primarily at right side, but post-op symptoms seem worsened on left lower extremity. Current symptoms: pain radiating down posterior left leg, decreased sensation at dorsal left foot, x2 episodes of bowel incontinence, mild decreased sensation at saddle region. No urinary incontinence. Imaging: CT lumbar/thoracic spines (12/20/22) w/o acute changes Patient was admitted 12/10/2022 and ortho was consulted - small posterior lateral disc herniation L5-S1 on the left, no indication for emergent procedure, recommended outpatient referral to neurosurg Repeat MRI 12/25 no changes from prior MRI Continued medical management; Oxycodone 10mg q4h PRN, Flexeril 10mg BID PRN, Valium prn and qhs, Voltaren gel. Could consider epidural steroids, traction with Dr. Brown, PT/OT outpatient for pain management - CM aware Would recommend PT/OT eval and treat outpatient. Type 2 Diabetes Mellitus SSI and bolus, Pharmacy glycemic consult. Continue home gabapentin for neuropathy. A1c 8.9 11/04/22. PCP to consider alternative to Trulicity given shortage. Will give insulin at time of discharge. Rec close f/u with PCP. Ambulatory Dysfunction PT/OT evals Near Syncope Occurred several days ago. Seen in ED on 12/20/[address] head CT[address] Monitor on telemetry. PT/OT Anxiety Continue home trazodone Seizure Disorder Continue home Keppra Tarlov Cyst As per above. Hypertension Not on medication, Currently normotensive. Diet: DM2 DVT ppx: Lovenox BID. Code status: Full code. Dispo: Med tele (2) Uncontrolled type 2 diabetes mellitus: (3) Ambulatory dysfunction: (4) Near syncope: (5) Anxiety: (6) Seizure disorder: . (7) Tarlov cyst: (8) Hypertension: Total Time Total Time Spent Total Time Spent (In Minutes): 35 min Total Time Includes: Examination of the Patient, Discharge Planning, Medication Reconciliation and Communication With Other Providers Discharge Plan Discharge Items Patient Disposition: Home - Home Health Services Reason For Visit: LOWER EXTREMITY WEAKNESS Discharge Diagnosis: lower extremity weakness Activity: Per Instructions section Non-emergency contact: Primary Care Provider Call non-emergency contact if: your pain is concerning for you and your temperature is above 101.5 Follow-up/Referrals: Aneudy Pérez MD [Primary Care Provider] - 01/03/23 1:25 pm Diet: Carb Consistent or DM2 Addtl Attending Provider Instructions: You were admitted to the hospital for worsening back pain and weakness. During your admission, we worked together to manage your pain and improve your strength. You were evaluated and treated by physical and occupational therapy, I believe that you will benefit from ongoing therapy at home following your discharge from the hospital. Your pain has significantly improved since presentation, and is now under enough control for you to go home to continue therapy. It is our goal to continue to decrease the pain medication to the lowest effective dose. It was discussed that you are likely to benefit from Osteopathic Manipulative Treatment (OMT) from an osteopathic physician (DO) in the area after discharge, this will not only help with your chronic pain, but also aid in facilitating improvement in your strength. At this time, there is no need for urgent surgery, and thus our goal is to improve your pain control and improve your strength over the coming weeks to months. At discharge, please note the following changes with regards to your insulin regimen: -- CONTINUE insulin glargine (Lantus - long acting) 35 units twice daily (AM/PM) -- With regards to your insulin aspart (NovoLog): Plan on taking 8U before breakfast, 8U before lunch, and 8U before dinner as a "baseline." Please take your blood sugars before each meal and RECORD THEM for your PCP. * If your premeal blood sugar is between 200-240, add 2U (atop the "baseline" 8U -- therefore give yourself 10U). * If your premeal blood sugar is between 240-280, add 3U (therefore, give yourself 11U). * If your premeal blood sugar is over 280, give yourself an additional 4U (therefore, you administer 12U) -- Please note that this will likely NOT bring your blood sugar back down to the goal range of 100-140. However, until you can be seen by your PCP, we opt to allow you to run a little high instead of dropping to low. If you get any signs or symptoms of low blood sugar (lightheadedness, dizziness, claminess, nausea, headache, etc.), please take your blood sugar and eat something sugary immediately -- Please aim to consume ~3L of fluid daily to ensure you don't get dehydrated Please follow up with your PCP within 1 week of discharge and review your insulin regimen at that time. It was a pleasure to be a part of your care team. Pending Studies at Discharge: No Stand-Alone Forms: [employer], Smoking Cessation Medications and DC Order Prescriptions: New (DME) Bedside Commode Misc See Rx Instructions .Route Qty: 1 0RF Rx Instructions: As directed (DME) Shower Chair Misc See Rx Instructions .Route Qty: 1 0RF Rx Instructions: As directed (DME) insulin syringe-needle U-100 1/2 mL 32 gauge x 5/16" syringe See Rx Instructions .Route Qty: 100 1RF Rx Instructions: As directed oxycodone 5 mg tablet 5 - 10 mg PO Q8H PRN (Reason: pain) Qty: 30 0RF Rx Instructions: Take one tablet (5 mg) for moderate pain or two tablets (10 mg) for severe pain every 8 hours as needed. Continued cyclobenzaprine 10 mg Tablet 10 mg PO BID PRN (Reason: Muscle Spasm) Qty: 0 albuterol sulfate [Ventolin HFA] 90 mcg/actuation Hfa Aerosol Inhaler 2 puff INHALATION Q4H PRN (Reason: Shortness Of Breath Or Wheezing) Qty: 0 Trulicity 4.5 mg/0.5 mL pen injector 4.5 mg SUBCUT WK Qty: 2 1RF Rx Instructions: TUESDAYS-- montelukast [Singulair] 10 mg tablet 10 mg PO HS fluticasone propion-salmeterol [AirDuo RespiClick] 232-14 mcg/actuation aerosol powdr breath activated 2 inh inhalation BID PRN (Reason: Shortness Of Breath) ibuprofen 800 mg tablet 800 mg PO TID PRN (Reason: Pain) promethazine 25 mg tablet 25 mg PO Q6H PRN (Reason: Nausea) aspirin 81 mg Tablet,Delayed Release (Dr/Ec) 81 mg PO QAM cyclosporine [Restasis] 0.05 % Dropperette 2 drp OPHTHALMIC (EYE) Q12H duloxetine 60 mg capsule,delayed release(DR/EC) 60 mg PO HS buspirone 5 mg tablet 5 mg PO QID nystatin [Nyamyc] 100,000 unit/gram powder 1 applic TOPICAL DIRECTED sennosides-docusate sodium [Senokot-S] 8.6-50 mg Tablet 2 tab PO HS Qty: 0 0RF levetiracetam 1,000 mg tablet 1,000 mg PO BID 30 Days Qty: 60 0RF oxycodone 5 mg tablet 10 mg PO QID PRN (Reason: pain) Qty: 10 0RF Rx Instructions: 1 tab for moderate pain, 2 for severe pain diclofenac sodium 1 % Gel 4 g TOPICAL QID PRN (Reason: Pain) albuterol sulfate 2.5 mg /3 mL (0.083 %) solution for nebulization 2.5 mg inhalation Q6 PRN (Reason: Wheezing) famotidine 40 mg tablet 40 mg PO BID pantoprazole 20 mg tablet,delayed release (DR/EC) 20 mg PO QAM lidocaine 5 % adhesive patch,medicated 1 patch transdermal DAILY PRN (Reason: Pain) fluticasone propionate [Flonase Allergy Relief] 50 mcg/actuation spray,suspension 1 spray INTRANASAL DAILY PRN (Reason: Congestion) trazodone 100 mg tablet 100 mg PO HS polyethylene glycol 3350 [Miralax] 17 gram/dose Powder 17 g PO BID gabapentin 800 mg tablet 800 mg PO TID ondansetron 4 mg tablet,disintegrating 4 mg PO Q6H PRN (Reason: nausea and vomiting) Qty: 12 0RF meloxicam 15 mg tablet 15 mg PO DAILY insulin aspart U-100 [Novolog FlexPen U-100 Insulin] 100 unit/mL (3 mL) insulin pen 8 unit SC TID Qty: 15 0RF Rx Instructions: plus sliding scale insulin glargine [Lantus Solostar U-100 Insulin] 100 unit/mL (3 mL) insulin pen 35 unit subcut BID Qty: 1 0RF Discharge Orders: Discharge Order (Routine); Ordered 12/29/22 Ordered By: Zena Page Admission Data Admit Date/Time: 12/24/22 18:26 Attending Provider: Alicja Alberto Admit Provider: Kumar Torres Primary Care Provider: Aneudy Pérez Other Providers: Kyaw Sharpe ; Benigno Pastor ; [facility] ; Mike Canchola Other Interventions: Discharge Summary Assessment (RN) Last Done: 12/29/22 14:48 Supervising Physician Co-Signing Physician Notes 52 yr old female with past medical history above, s/p multilevel lumbar decompression and fusion Oct 2021 on admission for persistent left lumbar radiculopathy and ambulatory dysfunction. Oxycodone 5-10 mg every 8 as needed for pain #30 sent to pharmacy for patient. Last fill oxycodone 10 mg number 12/13/22. On last admission there were concerns about patient's increased opioid burden. Patient has follow-up scheduled with her PCP on 01/02/2023 at discharge she notes that she had 2 oxycodone left at home. Patient did find some benefit to combination of oxycodone and acetaminophen, does have a history of liver cirrhosis and would recommend caution with higher doses of acetaminophen. Patient provided DME prescription for commode at discharge. Patient discharged home to home health. Patient frustrated that she is unable to obtain Trulicity, she was discharged on Lantus, blood sugars were labile in the hospital, encourage patient to maintain a diabetic approach to carbohydrate intake. Encouraged engagement with physical therapy and multimodal approach to improving her pain. On exam today, patient states that she did have an episode in the bathroom earlier where she stumbled and fell and hit her head on the toilet. On examination, no evidence of trauma apparent on occipital area where patient states she hit her head, cranial nerves II through XII grossly intact, patient was able to ambulate with physical therapy but maintains some weakness in her left lower extremity which causes difficulty at times with ambulation. Again encouraged engagement with therapeutic exercises to increase strengthening and conditioning. Patient did discussed multiple times that she was "scared to go home" because she is living by herself and cannot perform household duties due t o her weakness and pain. She is interested in seeing a specialist to evaluate her Tarlov cyst in her spine as she is concerned that this is contributing to her prolonged symptoms. We discussed considering a roommate or aide to assist her at home. I personally examined the patient and verified all brennan points of history and exam, discussed case, and agree with decision making and plan documented by Dr. Page. Resident Activity Tracking Resident Involvement: Resident Care Provided Care Provided: Adult Hospital Medicine
[2022-12-29] MEDS: oxyCODONE HCL IR 5 MG TAB (IMMEDIATE RELEASE) PO PRN ×3 (07:39→15:54)
[2022-12-29] MEDS ORDERED: LANTUS PER UNIT CHARGE SQ SCH ×2 (09:00→21:00)
[2022-12-29 09:02] LABS: Creatinine Clr Calc Pharmacy 124.3 ml/min; Est GFR (African American) 121.1 ml/min; Est GFR (Non-African American) 104.5 ml/min
[2022-12-29] MEDS: busPIRone 5 MG TAB PO SCH ×2 (09:19→13:33)
[2022-12-29] MEDS: DICLOFENAC SOD 1% GEL 100 GM TUBE EXT SCH ×3 (09:20→13:35)
[2022-12-29] MEDS: ENOXAPARIN INJ 40 MG/0.4 ML SYR SQ SCH (09:22)
[2022-12-29] MEDS: FAMOTIDINE 40 MG TABLET PO SCH (09:23)
[2022-12-29] MEDS: FLUTICASONE/VILANTEROL 100/25MCG 14 PUFFS/INHALER INH SCH (09:23)
[2022-12-29] MEDS: levETIRAcetam 500 MG TAB PO SCH (09:24)
[2022-12-29] MEDS: PANTOprazole 40 MG TAB PO SCH (09:24)
[2022-12-29] MEDS: GABAPENTIN 800 MG TAB PO SCH ×2 (09:24→13:32)
[2022-12-29] MEDS: POLYETHYLENE (MIRALAX) 17 GM PACK PO SCH (09:26)
[2022-12-29] MEDS: INSULIN ASPART PER UNIT CHARGE SC SCH ×2 (09:52→13:19)
[2022-12-29] MEDS ORDERED: LANTUS PER UNIT CHARGE SQ ONE (16:24)
[2022-12-29] MEDS ORDERED: INSULIN ASPART PER UNIT CHARGE SC SCH (16:30)
[2022-12-30] MEDS ORDERED: LANTUS PER UNIT CHARGE SQ SCH (09:00)
--- NOTE | 2022-12-31 13:58 | Coding Query ---
CODING QUERY FOR UNCONTROLLED DIABETES To promote full compliance with coding requirements relating to patient care, provider participation is requested in all cases of retail operations manager uncertainty. Please assist us with the question(s) below: Coding Question: The term uncontrolled Diabetes was used throughout the record. To be able to code this diagnosis properly, could you please clarify the diagnosis below: ( ) Uncontrolled Diabetes meaning hypoglycemia ( X ) Uncontrolled Diabetes meaning hyperglycemia ( ) Other (please specify) Principal Diagnosis: "that condition established after study, to be chiefly responsible for occasioning the admission of the patient to the hospital for care." Co-Existing Principal Diagnosis: "when two or more diagnoses equally meet the criteria for principal diagnosis as determined by the circumstances of admission, diagnostic work up, and/or therapy provided, and the Alphabetic Index, Tabular List, or another coding guideline does not provide sequencing direction, any one of the diagnoses may be sequenced first." "When the physician has documented what appears to be a current diagnosis in the body of the record, but has not included the diagnosis in the final diagnostic statement, the physician should be asked whether the diagnosis should be added." (Source Coding Clinic 2 QTR90. p3-4) EUN
== END 2022-12-29 16:25 | disposition home health service (06) ==
LOC: ED 18:17 → 2N 18:17 → SUATTDRO 22:54 → 2N 12-23 01:23 → SUATTDRO 12-24 18:26 → 3N 12-25 15:46

== ENCOUNTER 2023-02-12 10:59 | Observation (INO) ==
--- NOTE | 2023-02-12 11:10 | Emergency Department Note ---
Impression & Plan Weakness ADMIT ED Provider Note HPI: The patient is a 52-year-old female with history of spinal stenosis status post lumbar surgery in October of this year with Dr. Sharpe, presents emergency department with a chief complaint of ambulatory dysfunction and left lower ext remity weakness. Patient states she has had the symptoms somewhat chronically over the past several months since her surgery. She has been to the ED multiple times. On arrival here to the ED today patient states that she fell about 24 hours ago, states she was eventually able to crawl to the phone and call for EMS help. Patient arrives via ambulance. Patient is alert and oriented on arrival, she is otherwise in no acute distress. Complains of some left lower extremity weakness. No focal complaint of pain. Patient states that she has not eaten or drank anything in 24 hours. ROS: - Per HPI *Outpatient medications and allergy history reviewed. *Pertinent external medical records reviewed. PE: General: Alert HEENT: Normocephalic, trachea midline Eyes: Extraocular eye movement is intact, no scleral erythema Pulmonary: Clear to auscultation bilaterally, no wheezing Cardio: Regular rate and rhythm GI: Abdomen is soft to palpation : No suprapubic tenderness MSK: No evidence of trauma or malformation of the extremities, no edema Skin: No evidence of rash Neuro: Alert, there is some drift/chronic weakness of the left lower extremity with testing against gravity, otherwise no focal deficits Psychiatric: Cooperative child monitor: (As interpreted by myself): - An order was placed for continuous cardiac monitoring - Patient was noted to be in sinus rhythm with a rate of 75 EKG: (As interpreted by myself): Rate: 70 Rhythm: Normal sinus rhythm Intervals: Within normal limits ST changes: No ST elevation Time: 1118 Interventions provided in ED: -Normal saline bolus Differential Diagnosis: Cauda equina syndrome, lumbar spine fracture, intracranial injury/skull fracture, epidural hematoma, subdural hematoma, ambulatory dysfunction that is acute on chronic/postoperative, amongst other potential pathologies. Medical Decision Making: Patient presented to the emergency department with a chief complaint of lower extremity weakness and ambulatory dysfunction. Patient states she had a fall last night. She states that she was on the ground for about 24 hours. On arrival here to the ED the patient complains of some acute on chronic left lower extremity weakness. She has had this somewhat chronically on and off since her surgery in October for spinal stenosis. On arrival here to the ED the patient is otherwise in no acute distress, she is alert and oriented. CT imaging of the head shows no acute intracranial process, CT imaging of the l umbar spine does not show any evidence of fracture. Patient's lab work is otherwise largely unremarkable without critical findings. I have low suspicion for ischemic stroke as the patient has had the symptoms chronically and they are more related to her issues with her back. She otherwise appears well and does not have any new focal deficits. Low suspicion for cauda equina syndrome given the chronic nature of her symptoms as well, denies any bowel or bladder incontinence. Denies any recent fevers. On my reassessment patient states that she would like to go to inpatient rehab, per case management this is not able to be arranged today secondary to her insurance product. She will require medical admission for PT/OT. [facility] hospitalist service was consulted for admission and patient was placed for admission in stable condition Consultants: Dr. Park, hospitalist Disposition discussion held by myself with: Patient Diagnosis: 1. Ambulatory dysfunction, acute on chronic 2. Mechanical fall 3. History of spinal stenosis status post lumbar surgery 4. Left lower extremity weakness, acute on chronic Disposition: Admission Leo Burton DO Emergency Medicine Past Med/Surg History Medical History Ambulatory dysfunction Ankle swelling Anxiety Brain cyst Chronic generalized abdominal pain Chronic low back pain with left-sided sciatica Chronic obstructive pulmonary disease Depression Hypertension Hypokalemia Hypomagnesemia Hyponatremia Insulin dependent diabetes mellitus Left hand paresthesia Narcotic abuse Ongoing, documented by PCP since 2013 Neurogenic claudication due to lumbar spinal stenosis Obesity Opiate dependence Opioid abuse Periapical abscess with facial involvement Pulmonary embolism Reports was anticoagulation x 60 days, not on chronic anticoagulation Rash Syncope Thrombocytopenia Tinea corporis Tinea cruris Uncontrolled type 2 diabetes mellitus Surgical History History of laparoscopic cholecystectomy History of lumbar surgery Hx of oral surgery (02/15/20) Acute right submandibular, submental space infection with floor of mouth infection caused by infected lower teeth. Dr. Rios 02/15/20 S/P dilation and curettage S/P laparoscopic hernia repair S/P laparoscopic procedure ovarian cyst surgery Family History Mother , 73 Heart disease Cancer small cell ca lung caused at 73 Father Skin cancer Brother No problems noted. Sister No problems noted. Grandmother (Maternal) , 48 Heart disease T2DM (type 2 diabetes mellitus) Grandmother (Paternal) , 83 Heart disease Kidney disease Uncle T2DM (type 2 diabetes mellitus) Other Diabetes Obesity Denies family history of Ovarian cancer Breast cancer Colorectal cancer Uterine cancer Social History Smoking Status: Former smoker Tobacco Type: Cigarettes Cigarettes Per Day: 5; Second Hand Exposure: Yes; Do You Dip or Chew Tobacco: No; Hx Alcohol Use: No Hx Substance Use: No Preferred Language: Georgian Communication Ability: Effective Visual Impairment: No Limitations Hearing Ability: Normal Certified Public Accountant Required: No Beliefs That Will Affect Care: None marital status: Current Living Situation: Alone Current Living Situation Comment: Lives with son (15yo) current occupational status: unemployed 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 How many Children do You have: 1 Feels Safe at Home: Yes Assistive Devices: Walker Allergies Allergies Allergy/AdvReac Type Severity Reaction Status Date / Time acetaminophen AdvReac Severe LIVER Verified 01/25/23 09:00 COMPLICATIONS cephalexin AdvReac Severe Vomiting Verified 01/25/23 09:00 levofloxacin [From Levaquin] AdvReac Intermediate Vomiting Verified 01/25/23 09:00 Home Meds Home Medications Medication Instructions Recorded Confirmed cyclobenzaprine 10 mg tablet 10 mg PO BID PRN Muscle Spasm ##0 11/18/17 01/25/23 albuterol sulfate 90 mcg/actuation 2 puff inhalation Q4H PRN 02/10/18 01/25/23 aerosol inhaler (Ventolin HFA) Shortness Of Breath Or Wheezing ##0 ibuprofen 800 mg tablet 800 mg PO TID PRN Pain 10/24/19 01/25/23 promethazine 25 mg tablet 25 mg PO Q6H PRN Nausea 10/24/19 01/25/23 fluticasone 232 mcg-salmeterol 14 2 inh inhalation BID PRN Shortness 08/21/20 01/25/23 mcg/actuation breath activated Of Breath powdr (AirDuo RespiClick) montelukast 10 mg tablet 10 mg PO HS 09/01/20 01/25/23 (Singulair) aspirin 81 mg tablet,delayed 81 mg PO QAM 10/28/20 01/25/23 release cyclosporine 0.05 % eye drops in a 2 drp ophthalmic (eye) Q12H 04/17/21 01/25/23 dropperette (Restasis) diclofenac sodium 1 % topical gel 4 g topical QID PRN Pain 07/20/21 01/25/23 albuterol sulfate 2.5 mg/3 mL 2.5 mg inhalation Q6 PRN Wheezing 01/19/22 01/25/23 (0.083 %) solution for nebulization famotidine 40 mg tablet 40 mg PO BID 01/19/22 01/25/23 fluticasone propionate 50 1 spray intranasal DAILY PRN 01/19/22 01/25/23 mcg/actuation nasal Congestion spray,suspension (Flonase Allergy Relief) lidocaine 5 % topical patch 1 patch transdermal DAILY PRN Pain 01/19/22 01/25/23 pantoprazole 20 mg tablet,delayed 20 mg PO QAM 01/19/22 01/25/23 release polyethylene glycol 3350 17 17 g PO BID 01/29/22 01/25/23 gram/dose oral powder (Miralax) trazodone 100 mg tablet 100 mg PO HS 01/29/22 01/25/23 duloxetine 60 mg capsule,delayed 60 mg PO HS 03/12/22 01/25/23 release gabapentin 800 mg tablet 800 mg PO TID 04/05/22 01/25/23 buspirone 5 mg tablet 5 mg PO QID 07/30/22 01/25/23 nystatin 100,000 unit/gram topical 1 applic topical DIRECTED 10/12/22 01/25/23 powder ([facility]) meloxicam 15 mg tablet 15 mg PO DAILY 12/20/22 01/25/23 clindamycin phosphate 1 % topical 1 applic topical DAILY PRN 01/25/23 01/25/23 gel Previous Rx's Medication Instructions Recorded ondansetron 4 mg disintegrating 4 mg PO Q6H PRN nausea and 08/11/22 tablet vomiting #12 tabs dulaglutide 4.5 mg/0.5 mL 4.5 mg (0.5 mL) subcut WK #2 mL 10/06/22 subcutaneous pen injector (Trulicity) levetiracetam 1,000 mg tablet 1,000 mg PO BID 30 days #60 tabs 12/11/22 oxycodone 5 mg tablet 10 mg PO QID PRN pain #10 tabs 12/11/22 Bedside Commode #1 ea 12/28/22 Shower Chair #1 ea 12/28/22 insulin syringe-needle U-100 /2 #100 ea 12/29/22 mL 32 gauge x 5/16" insulin regular hum U-500 conc 500 100 unit (0.2 mL) subcut TID #18 mL 01/25/23 unit/mL(3 mL) subcut pen (Humulin R U-500 (Conc) Insulin Kwikpen) Results & Data (ED) Vital Signs Vital Signs - 24 hr 02/12/23 11:08 02/12/23 11:06 02/12/23 11:16 Temperature 37 C Temperature Source Oral Pulse Rate 84 72 Pulse Rhythm Regular Pulse Strength Normal Respiratory Rate 18 Respiratory Effort / Characteristics Non-Labored Respiratory Depth Normal Respiratory Pattern Regular Blood Pressure 163/105 H Blood Pressure Mean 124 Blood Pressure Position Lying Pulse Oximetry 100 100 Oxygen Delivery Method Room Air Room Air Sepsis Recent Fever Within 48 Hours No Sepsis New/Unexplained Change in Mental Status N/A Sepsis Action Taken by Nursing No Action Required Laboratory Data 02/12/23 11:09 02/12/23 11:09 Lab Results 02/12/23 02/12/23 02/12/23 Range/Units 11:09 11:09 11:09 WBC 6.36 (4.8-10.8) K/ul RBC 4.93 (4.20-5.40) M/uL Hgb 15.2 (12.0-16.0) g/dl Hct 42.9 (37.0-47.0) % MCV 87.0 (80.0-100.0) fL MCH 30.8 (25.0-34.0) pg MCHC 35.4 (32.0-36.0) g/dL RDW Std Deviation 46.9 H (36.4-46.3) fL RDW Coeff of Kelli 14.9 H (11.5-14.5) % Plt Count 119 L (130-400) K/uL MPV 11.6 (9.4-12.4) fL Immature Gran % (Auto) 0.2 % Neut % (Auto) 61.1 % Lymph % (Auto) 31.8 % Dickens % (Auto) 6.1 % Eos % (Auto) 0.5 % Baso % (Auto) 0.3 % Neut # (Auto) 3.89 (1.40-6.50) K/uL Lymph # (Auto) 2.02 (1.2-3.4) K/uL Dickens # (Auto) 0.39 (0.11-0.59) K/uL Eos # (Auto) 0.03 (0-0.50) K/uL Baso # (Auto) 0.02 (0-0.2) K/uL Immature Gran # (Auto) 0.01 (0.01-0.20) K/uL PT 12.1 H (9.0-12.0) Seconds INR 1.1 (0.9-1.1) Sodium 137 (136-145) mmol/L Potassium 3.4 L (3.5-5.1) mmol/L Chloride 105 (98-107) mmol/L Carbon Dioxide 26 (21-32) mmol/L Anion Gap 6 (3-11) BUN 7 (6-23) mg/dl Creatinine 0.54 L (0.6-1.2) mg/dl Est Cr Clr Drug Dosing 142.6 ml/min Est GFR ( Amer) 124.0 ml/min Est GFR (Non-Af Amer) 107.0 ml/min BUN/Creatinine Ratio 13.0 (10-20) Glucose 294 H (70-99(Fasting)) mg/dl Lactate (0.4-2.0) mmol/L Calcium 9.0 (8.6-10.3) mg/dl Total Bilirubin 0.7 (0.2-1.0) mg/dl AST 17 (13-39) U/L ALT 15 (7-52) U/L Alkaline Phosphatase 133 H (34-104) U/L Total Creatine Kinase 43 (26-192) U/L Troponin I High Sens 4.6 (0-14) pg/ml Total Protein 6.7 (6.0-8.3) gm/dl Albumin 4.0 (3.4-5.0) gm/dl Globulin 2.7 (2.5-4.0) gm/dl Albumin/Globulin Ratio 1.5 (0.9-2) SARS-CoV-2, RNA, NAAT (NEGATIVE) 02/12/23 02/12/23 Range/Units 11:09 11:22 WBC (4.8-10.8) K/ul RBC (4.20-5.40) M/uL Hgb (12.0-16.0) g/dl Hct (37.0-47.0) % MCV (80.0-100.0) fL MCH (25.0-34.0) pg MCHC (32.0-36.0) g/dL RDW Std Deviation (36.4-46.3) fL RDW Coeff of Kelli (11.5-14.5) % Plt Count (130-400) K/uL MPV (9.4-12.4) fL Immature Gran % (Auto) % Neut % (Auto) % Lymph % (Auto) % Dickens % (Auto) % Eos % (Auto) % Baso % (Auto) % Neut # (Auto) (1.40-6.50) K/uL Lymph # (Auto) (1.2-3.4) K/uL Dickens # (Auto) (0.11-0.59) K/uL Eos # (Auto) (0-0.50) K/uL Baso # (Auto) (0-0.2) K/uL Immature Gran # (Auto) (0.01-0.20) K/uL PT (9.0-12.0) Seconds INR (0.9-1.1) Sodium (136-145) mmol/L Potassium (3.5-5.1) mmol/L Chloride (98-107) mmol/L Carbon Dioxide (21-32) mmol/L Anion Gap (3-11) BUN (6-23) mg/dl Creatinine (0.6-1.2) mg/dl Est Cr Clr Drug Dosing ml/min Est GFR ( Amer) ml/min Est GFR (Non-Af Amer) ml/min BUN/Creatinine Ratio (10-20) Glucose (70-99(Fasting)) mg/dl Lactate 1.4 (0.4-2.0) mmol/L Calcium (8.6-10.3) mg/dl Total Bilirubin (0.2-1.0) mg/dl AST (13-39) U/L ALT (7-52) U/L Alkaline Phosphatase (34-104) U/L Total Creatine Kinase (26-192) U/L Troponin I High Sens (0-14) pg/ml Total Protein (6.0-8.3) gm/dl Albumin (3.4-5.0) gm/dl Globulin (2.5-4.0) gm/dl Albumin/Globulin Ratio (0.9-2) SARS-CoV-2, RNA, NAAT NEGATIVE (NEGATIVE) Administered Medications Sodium Chloride (Nss 1000ml) 1,000 mls @ 999 mls/hr IV .Q1H1M YEN Stop: 02/12/23 12:15 Last Admin: 02/12/23 11:23 Dose: 999 mls/hr Documented By: [facility] Imaging Data Radiologist's Impression: Head CT 02/12/23 11:[address] DOSE: HISTORY: Fall. Trauma TECHNIQUE: Multiaxial CT images of the head were performed without the use of intravenous contrast. Automated exposure control was utilized for this study. A dose lowering technique was utilized adhering to the principles of ALARA. Comparison: Head CT 01/24/2023. Findings: The paranasal sinuses and mastoid air cells are clear. The calvarium and skull base are intact. The ventricles and sulci are within normal limits. There is no mass, hematoma, midline shift, or acute infarct. Impression: No acute intracranial abnormality. ACT 112: Negative or not required by law. Electronically signed by: Luis F Mixon M.D. 02/12/2023 12:[address] 02/12/23 11:[address] DOSE: 1716.67 mGy.cm HISTORY: Low back pain. fall, hx of laminectomy TECHNIQUE: Multiaxial CT images of the lumbar spine were performed and reformatted in the sagittal and coronal plane without the use of contrast. A dose lowering technique was utilized adhering to the principles of ALARA. COMPARISON: CT lumbar spine 12/20/2022. FINDINGS: No fracture or subluxation. Paravertebral soft tissues are unremarkable. No high-grade central canal narrowing by CT technique. 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 The visualized sacrum is otherwise intact. L3-L5 posterior decompression and fusion with pedicle screws and rods. The hardware appears intact. IMPRESSION: 1. No fractures within the lumbar spine. 2. Postoperative changes as described above. The hardware appears intact. ACT 112: Negative or not required by law. Electronically signed by: Luis F Mixon M.D. 02/12/2023 11:59 AM Discharge Plan Visit Data Chief Complaint: Fall Stated Complaint: LEFT SIDED WEAKNESS, FELL 24 HOURS AGO ED Provider: Leo Burton Discharge Problem: Weakness Forms Stand Alone Forms: [facility] Prescriptions Prescriptions: No Action cyclobenzaprine 10 mg Tablet 10 mg PO BID PRN (Reason: Muscle Spasm) Qty: 0 albuterol sulfate [Ventolin HFA] 90 mcg/actuation Hfa Aerosol Inhaler 2 puff INHALATION Q4H PRN (Reason: Shortness Of Breath Or Wheezing) Qty: 0 Trulicity 4.5 mg/0.5 mL pen injector 4.5 mg SUBCUT WK Qty: 2 1RF Rx Instructions: TUESDAYS-- montelukast [Singulair] 10 mg tablet 10 mg PO HS clindamycin phosphate 1 % gel 1 applic topical DAILY PRN Humulin R U-500 (Conc) Kwikpen 500 unit/mL (3 mL) insulin pen 100 unit subcut TID Qty: 18 4RF Rx Instructions: Inject 100 units into the abdomen 3 times per day; injections should be 6-8 hours apart. insulin lispro protamin-lispro [Humalog Mix 75-25 KwikPen] 100 unit/mL (75-25) insulin pen 0RF fluticasone propion-salmeterol [AirDuo RespiClick] 232-14 mcg/actuation aerosol powdr breath activated 2 inh inhalation BID PRN (Reason: Shortness Of Breath) ibuprofen 800 mg tablet 800 mg PO TID PRN (Reason: Pain) promethazine 25 mg tablet 25 mg PO Q6H PRN (Reason: Nausea) aspirin 81 mg Tablet,Delayed Release (Dr/Ec) 81 mg PO QAM cyclosporine [Restasis] 0.05 % Dropperette 2 drp OPHTHALMIC (EYE) Q12H duloxetine 60 mg capsule,delayed release(DR/EC) 60 mg PO HS buspirone 5 mg tablet 5 mg PO QID nystatin [Nyamyc] 100,000 unit/gram powder 1 applic TOPICAL DIRECTED levetiracetam 1,000 mg tablet 1,000 mg PO BID 30 Days Qty: 60 0RF oxycodone 5 mg tablet 10 mg PO QID PRN (Reason: pain) Qty: 10 0RF Rx Instructions: 1 tab for moderate pain, 2 for severe pain diclofenac sodium 1 % Gel 4 g TOPICAL QID PRN (Reason: Pain) albuterol sulfate 2.5 mg /3 mL (0.083 %) solution for nebulization 2.5 mg inhalation Q6 PRN (Reason: Wheezing) famotidine 40 mg tablet 40 mg PO BID pantoprazole 20 mg tablet,delayed release (DR/EC) 20 mg PO QAM lidocaine 5 % adhesive patch,medicated 1 patch transdermal DAILY PRN (Reason: Pain) fluticasone propionate [Flonase Allergy Relief] 50 mcg/actuation spray,suspension 1 spray INTRANASAL DAILY PRN (Reason: Congestion) trazodone 100 mg tablet 100 mg PO HS polyethylene glycol 3350 [Miralax] 17 gram/dose Powder 17 g PO BID gabapentin 800 mg tablet 800 mg PO TID ondansetron 4 mg tablet,disintegrating 4 mg PO Q6H PRN (Reason: nausea and vomiting) Qty: 12 0RF meloxicam 15 mg tablet 15 mg PO DAILY (DME) Bedside Commode Misc See Rx Instructions .Route Qty: 1 0RF Rx Instructions: As directed (DME) Shower Chair Misc See Rx Instructions .Route Qty: 1 0RF Rx Instructions: As directed (DME) insulin syringe-needle U-100 1/2 mL 32 gauge x 5/16" syringe See Rx Instructions .Route Qty: 100 1RF Rx Instructions: As directed Referrals Referrals: Aneudy Pérez MD [Primary Care Provider] -
[2023-02-12] MEDS ORDERED: SODIUM CHLORIDE 0.9% 1000ML 1,000 ML IV SCH (11:15)
[2023-02-12 11:41] LABS: Basophils # (auto) 0.02 K/uL (0-0.2); Basophils % (auto) 0.3 %; Eosinophils # (auto) 0.03 K/uL (0-0.50); Eosinophils % (auto) 0.5 %; Hematocrit (blood only) 42.9 % (37.0-47.0); Hemoglobin 15.2 g/dl (12.0-16.0); Immature Granulocytes # (auto) 0.01 K/uL (0.01-0.20); Immature Granulocytes % (auto) 0.2 %; Lymphocytes # (auto) 2.02 K/uL (1.2-3.4); Lymphocytes % (auto) 31.8 %; Mean Corpuscular Hemoglobin 30.8 pg (25.0-34.0); Mean Corpuscular Hgb Conc 35.4 g/dL (32.0-36.0); Mean Platelet Volume 11.6 fL (9.4-12.4); Monocytes # (auto) 0.39 K/uL (0.11-0.59); Monocytes % (auto) 6.1 %; Neutrophils # (auto) 3.89 K/uL (1.40-6.50); Neutrophils % (auto) 61.1 %; Platelet Count 119 K/uL (130-400); RDW Coefficient of Variation 14.9 % (11.5-14.5); RDW Standard Deviation 46.9 fL (36.4-46.3); Red Blood Count 4.93 M/uL (4.20-5.40); White Blood Count 6.36 K/ul (4.8-10.8)
[2023-02-12 11:58] LABS: Albumin Globulin Ratio 1.5 (0.9-2); Bilirubin,Total 0.7 mg/dl (0.2-1.0); Creatinine Clr Calc Pharmacy 142.6 ml/min; Globulin 2.7 gm/dl (2.5-4.0); Potassium 3.4 mmol/L (3.5-5.1); Total Protein 6.7 gm/dl (6.0-8.3)
--- NOTE | 2023-02-12 12:02 | CT Scan Report ---
LUMBAR SPINE CT CT DOSE: 1716.67 mGy.cm HISTORY: Low back pain. fall, hx of laminectomy TECHNIQUE: Multiaxial CT images of the lumbar spine were performed and reformatted in the sagittal an d coronal plane without the use of contrast. A dose lowering technique was utilized adhering to the principles of ALARA. COMPARISON: CT lumbar spine 12/20/2022. FINDINGS: No fracture or subluxation. Paravertebral soft tissues are unremarkable. No high-grade cent ral canal narrowing by CT technique. 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 The visualized sacrum is otherwise intact. L3-L5 posterior decompression and fusion with pedicle screws and rods. T he hardware appears intact. IMPRESSION: 1. No fractures within the lumbar spine. 2. Postoperative changes as described above. The hardware appears intact. ACT 112: Negative or not required by law. Electronically signed by: Luis F Mixon M.D. 02/12/2023 11:59 AM
[2023-02-12 12:03] LABS: Troponin I High Sensitivity 4.6 pg/ml (0-14)
--- NOTE | 2023-02-12 12:07 | CT Scan Report ---
HEAD CT NONCONTRAST CT DOSE: HISTORY: Fall. Trauma TECHNIQUE: Multiaxial CT images of the head were performed without the use of intravenous contrast. A utomated exposure control was utilized for this study. A dose lowering technique was utilized adheri ng to the principles of ALARA. Comparison: Head CT 01/24/2023. Findings: The paranasal sinuses and mastoid air cells are clear. The calvarium and skull base are int act. The ventricles and sulci are within normal limits. There is no mass, hematoma, midline shift, or acute infarct. Impression: No acute intracranial abnormality. ACT 112: Negative or not required by law. Electronically signed by: Luis F Mixon M.D. 02/12/2023 12:05 PM
[2023-02-12 12:11] LABS: INR 1.1 (0.9-1.1); Prothrombin Time 12.1 Seconds (9.0-12.0)
--- NOTE | 2023-02-12 12:24 | History & Physical Report ---
Date of Service February 12, 2023 Assessment & Plan (1) Lumbar back pain with radiculopathy affecting left lower extremity: Plan: Acute on chronic Continue her usual scheduled gabapentin, duloxetine. Unable to take acetaminophen Ibuprofen first line, oxycodone for second line for breakthrough pain Flexeril for muscle spasms PT/OT, possible need for placement Given her concern for rapid recent decline over the last week will repeat her MRI as not done since December although noted this will be the 4t since the beginning of the year Consult pain management (2) Uncontrolled type 2 diabetes mellitus: Plan: HbA1C 8.9 in October, will repeat with AM labs Consult pharmacy for glycemic control while here (3) Seizure disorder: Plan: Continue Keppra (4) Ambulatory dysfunction: (5) Anxiety: Plan: Continue buspirone and trazodone Plan VTE Prophylaxis - Lovenox 40mg SQ daily Diet - T2DM Disposition - observation status to med/surg Admission and Anticipated Discharge Date Admission Date: February 12, 2023 History of Present Illness Chief Complaint: Fall, left leg pain and weakness Primary Care Provider: Aneudy Pérez MD Elza Vick is a 52 year old female who presents to the ER with left leg pain and weakness and fall yesterday. This is the same problem for which she was admitted in December however she reports it is getting significantly worse over the last week. Yesterday she called her PCP and recommended she goes to the ER for evaluation. While getting ready to come here she tripped on her carpet and took her till today to crawl to a phone to call for EMS to bring her in to hospital. She currently appears relatively comfortably in bed and having a conversation with me but reports severity 9/10 pain from her back radiating down her entire left leg. She denies any change in speech, vision or hearing. She underwent lumbar decompression surgery in October which helped her right leg symptoms but reports progressive worsening left leg symptoms since this time. She has had multiple lumbar spine MRIs since this time and was evaluated by her orthopedic surgeon with no plans on further surgery here but possible follow up at a tertiary care center. Allergies Allergy/AdvReac Type Severity Reaction Status Date / Time acetaminophen AdvReac Severe LIVER Verified 01/25/23 09:00 COMPLICATIONS cephalexin AdvReac Severe Vomiting Verified 01/25/23 09:00 levofloxacin [From Levaquin] AdvReac Intermediate Vomiting Verified 01/25/23 09:00 Home Medications Medication Instructions Recorded Confirmed Type cyclobenzaprine 10 mg tablet 10 mg PO BID PRN Muscle Spasm ##0 11/18/17 01/25/23 History albuterol sulfate 90 mcg/actuation 2 puff inhalation Q4H PRN 02/10/18 01/25/23 History aerosol inhaler (Ventolin HFA) Shortness Of Breath Or Wheezing ##0 ibuprofen 800 mg tablet 800 mg PO TID PRN Pain 10/24/19 01/25/23 History promethazine 25 mg tablet 25 mg PO Q6H PRN Nausea 10/24/19 01/25/23 History fluticasone 232 mcg-salmeterol 14 2 inh inhalation BID PRN Shortness 08/21/20 01/25/23 History mcg/actuation breath activated Of Breath powdr (AirDuo RespiClick) montelukast 10 mg tablet 10 mg PO HS 09/01/20 01/25/23 History (Singulair) aspirin 81 mg tablet,delayed 81 mg PO QAM 10/28/20 01/25/23 History release cyclosporine 0.05 % eye drops in a 2 drp ophthalmic (eye) Q12H 04/17/21 01/25/23 History dropperette (Restasis) diclofenac sodium 1 % topical gel 4 g topical QID PRN Pain 07/20/21 01/25/23 History albuterol sulfate 2.5 mg/3 mL 2.5 mg inhalation Q6 PRN Wheezing 01/19/22 01/25/23 History (0.083 %) solution for nebulization famotidine 40 mg tablet 40 mg PO BID 01/19/22 01/25/23 History fluticasone propionate 50 1 spray intranasal DAILY PRN 01/19/22 01/25/23 History mcg/actuation nasal Congestion spray,suspension (Flonase Allergy Relief) lidocaine 5 % topical patch 1 patch transdermal DAILY PRN Pain 01/19/22 01/25/23 History pantoprazole 20 mg tablet,delayed 20 mg PO QAM 01/19/22 01/25/23 History release polyethylene glycol 3350 17 17 g PO BID 01/29/22 01/25/23 History gram/dose oral powder (Miralax) trazodone 100 mg tablet 100 mg PO HS 01/29/22 01/25/23 History duloxetine 60 mg capsule,delayed 60 mg PO HS 03/12/22 01/25/23 History release gabapentin 800 mg tablet 800 mg PO TID 04/05/22 01/25/23 History buspirone 5 mg tablet 5 mg PO QID 07/30/22 01/25/23 History ondansetron 4 mg disintegrating 4 mg PO Q6H PRN nausea and 08/11/22 01/25/23 Rx tablet vomiting #12 tabs dulaglutide 4.5 mg/0.5 mL 4.5 mg (0.5 mL) subcut WK #2 mL 10/06/22 01/25/23 Rx subcutaneous pen injector ([facility]) nystatin 100,000 unit/gram topical 1 applic topical DIRECTED 10/12/22 01/25/23 History powder ([facility]) levetiracetam 1,000 mg tablet 1,000 mg PO BID 30 days #60 tabs 12/11/22 01/25/23 Rx oxycodone 5 mg tablet 10 mg PO QID PRN pain #10 tabs 12/11/22 01/25/23 Rx meloxicam 15 mg tablet 15 mg PO DAILY 12/20/22 01/25/23 History Bedside Commode #1 ea 12/28/22 01/25/23 Rx Shower Chair #1 ea 12/28/22 01/25/23 Rx insulin syringe-needle U-100 1/2 #100 ea 12/29/22 Rx mL 32 gauge x 5/16" clindamycin phosphate 1 % topical 1 applic topical DAILY PRN 01/25/23 01/25/23 History gel insulin regular hum U-500 conc 500 100 unit (0.2 mL) subcut TID #18 mL 01/25/23 01/25/23 Rx unit/mL(3 mL) subcut pen (Humulin R U-500 (Conc) Insulin Kwikpen) Past Med/Surg History Medical History Ambulatory dysfunction Ankle swelling Anxiety Brain cyst Chronic generalized abdominal pain Chronic low back pain with left-sided sciatica Chronic obstructive pulmonary disease Depression Hypertension Hypokalemia Hypomagnesemia Hyponatremia Insulin dependent diabetes mellitus Left hand paresthesia Narcotic abuse Ongoing, documented by PCP since 2013 Neurogenic claudication due to lumbar spinal stenosis Obesity Opiate dependence Opioid abuse Periapical abscess with facial involvement Pulmonary embolism Reports was anticoagulation x 60 days, not on chronic anticoagulation Rash Syncope Thrombocytopenia Tinea corporis Tinea cruris Uncontrolled type 2 diabetes mellitus Surgical History History of laparoscopic cholecystectomy History of lumbar surgery Hx of oral surgery (02/15/20) Acute right submandibular, submental space infection with floor of mouth infection caused by infected lower teeth. Dr. Rios 02/15/20 S/P dilation and curettage S/P laparoscopic hernia repair S/P laparoscopic procedure ovarian cyst surgery Family History Mother , 73 Heart disease Cancer small cell ca lung caused at 73 Father Skin cancer Brother No problems noted. Sister No problems noted. Grandmother (Maternal) , 48 Heart disease T2DM (type 2 diabetes mellitus) Grandmother (Paternal) , 83 Heart disease Kidney disease Uncle T2DM (type 2 diabetes mellitus) Other Diabetes Obesity Denies family history of Ovarian cancer Breast cancer Colorectal cancer Uterine cancer Social History Smoking Status: Former smoker Tobacco Type: Cigarettes Cigarettes Per Day: 5; Second Hand Exposure: Yes; Do You Dip or Chew Tobacco: No; Hx Alcohol Use: No Hx Substance Use: No Preferred Language: Gambian Communication Ability: Effective Visual Impairment: No Limitations Hearing Ability: Normal Perch Machine Inspector Required: No Beliefs That Will Affect Care: None marital status: Current Living Situation: Alone Current Living Situation Comment: Lives with son (15yo) current occupational status: unemployed 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 How many Children do You have: 1 Other Information That Helps Us Care for You: No Feels Safe at Home: Yes Safety Concerns: Feels Safe At This Time Assistive Devices: Denture - Upper, Denture - Lower, Walker and Wheelchair Review of Systems Review of Systems: All systems reviewed & are unremarkable except as noted in HPI & below Physical Exam Constitutional: well developed; + not well nourished and no acute distress Eyes: PERRL, conjunctivae normal, anicteric sclerae ENMT: external ear and nose normal, oropharynx normal Neck: trachea midline, no thyromegaly Respiratory: normal respiratory effort, lungs clear to auscultation Cardiovascular: RRR, no murmur, no edema Gastrointestinal (Abdomen): normal bowel sounds, soft, nontender, no hepatosplenomegaly Skin: pruritic rash on back Neurologic: left hip flex 3/5, knee flex 4/5, ext 3/5, Ankle dorsiflex, plantarflex 2/5 No change in numbness from left to right sides Psychiatric: A+Ox3, euthymic affect Results & Data Results & Data Vital Signs (Past 12 Hours) Vital Signs Temp Pulse Resp BP Pulse Ox O2 Del Method 02/12/23 11:16 72 02/12/23 11:06 100 Room Air 02/12/23 11:08 37 C 84 18 163/105 H 100 Room Air Diagnostic Findings HEAD CT NONCONTRAST CT DOSE: HISTORY: Fall. Trauma TECHNIQUE: Multiaxial CT images of the head were performed without the use of intravenous contrast. Automated exposure control was utilized for this study. A dose lowering technique was utilized adhering to the principles of ALARA. Comparison: Head CT 01/24/2023. Findings: The paranasal sinuses and mastoid air cells are clear. The calvarium and skull base are intact. The ventricles and sulci are within normal limits. There is no mass, hematoma, midline shift, or acute infarct. Impression: No acute intracranial abnormality. XR chest 1V portable HISTORY: fall COMPARISON: Chest 01/22/2023. FINDINGS: The lungs are clear. Cardiac silhouette is normal in size. No pleural effusions. No pneumothorax. IMPRESSION: No acute process. LUMBAR SPINE CT CT DOSE: 1716.67 mGy.cm HISTORY: Low back pain. fall, hx of laminectomy TECHNIQUE: Multiaxial CT images of the lumbar spine were performed and reformatted in the sagittal and coronal plane without the use of contrast. A dose lowering technique was utilized adhering to the principles of ALARA. COMPARISON: CT lumbar spine 12/20/2022. FINDINGS: No fracture or subluxation. Paravertebral soft tissues are unremarkable. No high-grade central canal narrowing by CT technique. 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 The visualized sacrum is otherwise intact. L3-L5 posterior decompression and fusion with pedicle screws and rods. The hardware appears intact. IMPRESSION: 1. No fractures within the lumbar spine. 2. Postoperative changes as described above. The hardware appears intact. Medications Administered ER Medications Given: NSS 1L bolus ECG Rate (beats per minute): 70 Rhythm: normal sinus Findings: no acute ischemic change Comparison ECG Date: from (January 22, 2023) Change: no significant change Code Status & VTE Plan Code Status Full VTE Prophylaxis Plan VTE Prophylaxis will be ordered: Yes PG Care Time/CCT Total # of Minutes Spent Total Time Spent with Patient: Total time spent is greater than 50% in coordination of care (as documented) at patient's floor/unit and/or counseling patient: Coding Level of Care Code 19053 INT INP/OBS CARE 2/55MIN Diagnoses Lumbar back pain with radiculopathy affecting left lower extremity M54.16 Uncontrolled type 2 diabetes mellitus E11.65 Seizure disorder G40.909 Ambulatory dysfunction R26.2 Anxiety F41.9
--- NOTE | 2023-02-12 12:56 | XRay Report ---
XR chest 1V portable HISTORY: fall COMPARISON: Chest 01/22/2023. FINDINGS: The lungs are clear. Cardiac silhouette is normal in size. No pleural effusions. No pneumot horax. IMPRESSION: No acute process. ACT 112: Negative or not required by law. Electronically signed by: Luis F Mixon M.D. 02/12/2023 12:55 PM
[2023-02-12] MEDS ORDERED: LORazepam 2 MG/1 ML VIAL IV STA (13:00)
[2023-02-12] MEDS ORDERED: LORazepam 2 MG/1 ML VIAL ONE (13:07)
[2023-02-12] MEDS ORDERED: PHARMACY GLYCEMIC MGMT CONSULT PRN (14:36)
--- NOTE | 2023-02-12 14:59 | Pharmacy Report ---
Pharmacy Glycemic Short Note 2 - Date of Service February 12, 2023 - Glycemic Short BSG Results (Last 24 hours): 02/12/23 02/12/23 02/12/23 11:09 14:38 14:39 Glucose 294 H POC Glucose 304 H* 303 H* OUTPATIENT ANTIDIABETIC REGIMEN: * Trulicity 4.5 mg SQ weekly * Humalog Mix or U-500 ASSESSMENT: * Ms Vick is a 52 y/o F with a PMH of T2DM who presents with lumbar pain. * Pharmacy consulted mid-afternoon (~1500). Patient's blood sugar on admission around that time was 304 mg/dL. * Per nurse, patient did NOT eat in the ER plus did not take an insulin today per patient report. * Based upon previous admissions, will begin typical regimen. * Lantus 70 units SQ x 1 then re-evaluate. * Novolog with tight parameters as patient insulin resistant. PLAN FOR INPATIENT GLYCEMIC CONTROL: * Basal insulin * Lantus 70 units SQ X 1 then re-evaluate 02/13/23 * Bolus insulin * NovoLog per scale ACHS or Q6hrs while NPO * Goal Range: Low 110 mg/dL - High 140 mg/dL * Correction Factor: 12 mg/dL/unit * Nutritional / Prandial insulin per carb ratio of 1 unit per 4 grams CHO consumed
[2023-02-12] MEDS ORDERED: LANTUS PER UNIT CHARGE SC ONE (15:00)
[2023-02-12] MEDS ORDERED: GLUCOSE 10 TAB/TUBE PO PRN (15:00)
[2023-02-12] MEDS ORDERED: CARBOHYDRATES FOR HYPOGLYCEMIA PO PRN (15:00)
[2023-02-12] MEDS ORDERED: GLUCAGON FOR INJ 1 MG VIAL IM PRN (15:00)
[2023-02-12] MEDS ORDERED: DEXTROSE 50% 50 ML SYRINGE IV PRN (15:00)
[2023-02-12] MEDS ORDERED: GLUCOSE 40% GEL 15 GM TUBE PO PRN (15:00)
[2023-02-12] MEDS ORDERED: DICLOFENAC SOD 1% GEL 100 GM TUBE EXT PRN (15:09)
[2023-02-12] MEDS ORDERED: PROMETHAZINE HCL 25 MG TAB PO PRN (15:09)
[2023-02-12] MEDS: INSULIN ASPART PER UNIT CHARGE SC SCH ×3 (15:22→21:15)
[2023-02-12] MEDS: oxyCODONE HCL IR 5 MG TAB (IMMEDIATE RELEASE) PO PRN ×2 (15:34→21:21)
[2023-02-12] MEDS: PANTOprazole 40 MG TAB PO SCH (16:24)
[2023-02-12] MEDS: busPIRone 5 MG TAB PO SCH ×2 (16:24→21:21)
[2023-02-12] MEDS: [UNRECOGNIZED DRUG - REMARK] SCH (16:24)
--- NOTE | 2023-02-12 17:16 | Magnetic Resonance Report ---
Brain MRI WITHOUT CONTRAST HISTORY: progressive left leg weakness TECHNIQUE: Multiplanar multisequence MRI of the brain was performed without the use of contrast. COMPARISON STUDY: Head CT 02/12/2023 FINDINGS: Motion artifact. There are no areas of restricted diffusion to suggest acute infarction. Th e midline structures are intact. The paranasal sinuses are clear. The mastoid air cells are clear. Th e ventricles and sulci are within normal limits for age. There is no mass, hematoma, midline shift. T he major vascular flow-voids at the skull base are well maintained. IMPRESSION: Motion artifact. No definite acute intracranial abnormality. Acute intracranial abnormality. ACT 112: Negative or not required by law. Electronically signed by: Luis F Mixon M.D. 02/12/2023 5:15 PM
--- NOTE | 2023-02-12 17:16 | Magnetic Resonance Report ---
LUMBAR SPINE MRI HISTORY: progressive left leg weakness TECHNIQUE: Multiplanar multisequence MRI of the lumbar spine was performed without the use of contras t. Only sagittal T2, sagittal T1, and axial T2 sequences were obtained. The patient was unable to com plete the remaining examination. COMPARISON: Abdomen and pelvis CT 08/02/2022. Lumbar spine CT 02/12/2023. Lumbar spine MRI 12/25/2022. FINDINGS: For the purpose of the report the L5-S1 disc space will be located on axial image 15 of 16. Posterior decompression and fusion from L3 through L5 with pedicle screws and rods. Mild disc space n arrowing and disc desiccation L5-S1, unchanged. Remaining disc spaces are preserved. The conus termin us at the L1-L2 disc space level. Paravertebral soft tissues are unremarkable. There is a large Tarlo v cysts again noted within the sacral canal. This remains unchanged. Paravertebral soft tissues appea r unremarkable. No significant central canal narrowing. There is a small broad-based posterior disc b ulge at L2-L3 without significant central canal or neural foraminal narrowing. There is small focal c entral/left paracentral disc protrusion at L5-S1 which is similar to the prior study. This measures a pproximately 5 mm. This results in moderate narrowing of the left lateral recess, unchanged. IMPRESSION: 1. Suboptimal evaluation of the lumbar spine due to the limited imaging. The patient was unable to co mplete the entire examination. 2. No acute fracture or subluxation. 3. L3-L5 posterior decompression and fusion with pedicle screws and rods. 4. No significant change in the small focal central/left paracentral disc protrusion at L5-S1. This r esults in moderate narrowing of the left lateral recess, unchanged. ACT 112: Negative or not required by law. Electronically signed by: Luis F Mixon M.D. 02/12/2023 5:15 PM
[2023-02-12] MEDS: FEXOFENADINE HCL 180 MG TAB PO SCH (18:46)
[2023-02-12] MEDS: POLYETHYLENE (MIRALAX) 17 GM PACK PO SCH (21:15)
[2023-02-12] MEDS: FAMOTIDINE 40 MG TABLET PO SCH (21:20)
[2023-02-12] MEDS: traZODone HCL 100 MG TAB PO SCH (21:20)
[2023-02-12] MEDS: levETIRAcetam 500 MG TAB PO SCH (21:21)
[2023-02-12] MEDS: DULoxetine HCL 60 MG CAP PO SCH (21:21)
[2023-02-12] MEDS: MONTELUKAST SODIUM 10 MG TABLET PO SCH (21:21)
[2023-02-12] MEDS: GABAPENTIN 800 MG TAB PO SCH (21:21)
[2023-02-13] MEDS: [UNRECOGNIZED DRUG - REMARK] SCH ×4 (00:56→23:01)
[2023-02-13 06:26] LABS: Appearance Urine Clear (Clear); Bacteria Urine Automated Negative (Negative); Bilirubin Urine Negative (Negative); Blood Urine Negative (Negative); Color Urine Yellow; Epithelial Cell Urine Auto 20-30 /lpf (0-5); Glucose Urine UA Negative (Negative); Ketones Urine Negative (Negative); Leukocyte Esterase Urine Negative (Negative); Nitrite Urine Negative (Negative); Protein Urine 1+ (Negative); RBC Urine Automated 0-4 /hpf (0-4); Specific Gravity Urine 1.015 (1.000-1.030); Urobilinogen Urine Negative (Negative)
[2023-02-13] MEDS: busPIRone 5 MG TAB PO SCH ×4 (08:26→21:41)
[2023-02-13] MEDS: FAMOTIDINE 40 MG TABLET PO SCH ×2 (08:26→21:41)
[2023-02-13] MEDS: POLYETHYLENE (MIRALAX) 17 GM PACK PO SCH ×2 (08:26→21:41)
[2023-02-13] MEDS: ASPIRIN 81 MG ECTAB PO SCH (08:26)
[2023-02-13] MEDS: levETIRAcetam 500 MG TAB PO SCH ×2 (08:27→21:41)
[2023-02-13] MEDS: FEXOFENADINE HCL 180 MG TAB PO SCH (08:27)
[2023-02-13] MEDS: oxyCODONE HCL IR 5 MG TAB (IMMEDIATE RELEASE) PO PRN ×3 (08:27→21:48)
[2023-02-13] MEDS: PANTOprazole 40 MG TAB PO SCH (08:27)
[2023-02-13] MEDS: GABAPENTIN 800 MG TAB PO SCH ×3 (08:27→21:41)
[2023-02-13] MEDS: ENOXAPARIN INJ 40 MG/0.4 ML SYR SQ SCH (08:27)
[2023-02-13] MEDS: INSULIN ASPART PER UNIT CHARGE SC SCH ×4 (09:27→21:40)
--- NOTE | 2023-02-13 09:50 | Hospitalist Progress Note ---
Date of Service February 13, 2023 Assessment & Plan (1) Lumbar back pain with radiculopathy affecting left lower extremity: Plan: Pt is a 52 yo female with PMH of chronic low back pain s/p L3-L5 spinal fusion 10/2022, PE, uncontrolled DM, COPD, and depression/anxiety presenting due to increased back pain s/p fall. Acute on chronic lumbar back pain - s/p fall at home - CT head neg; MRI brain neg - lumbar CT showed no acute fractures w/ intact hardware; lumbar MRI showed no significant change in L5-S1 disk protrusion from last MRI (12/25/2022) - continue home gabapentin 800 mg TID and duloxetine 60 mg HS - continue pain control w/ ibuprofen 800 mg TID PRN, oxycodone 10 mg q4hr PRN, and flexeril 10 mg BID PRN muscle spams - consult PT/OT to determine need for placement Uncontrolled type 2 DM - A1c 8.9 in October - hold home trulicity - SSI per pharmacy Seizure disorder - continue keppra 1000 mg BID Anxiety - continue buspirone 5mg QID and trazodone 100 mg HS Diet: carb consistent DVT ppx: lovenox 40mg daily Code: full Dispo: med/surg, PT/OT evals pending for discharge planning (2) Uncontrolled type 2 diabetes mellitus: (3) Seizure disorder: (4) Ambulatory dysfunction: (5) Anxiety: Admission and Anticipated Discharge Date Admission Date: February 12, 2023 Supervising Physician Co-Signing Physician Notes Resident Physician Supervision Note: I independently interviewed and examined the patient and verified the brennan history and physical, reviewed labs and image studies and agree with resident findings and care plan. Subjective Pt seen this AM. She states she had a fall at home and it took her 24 hours to crawl her her bedroom to her living room to get her phone to call for help. She has been having trouble with her left lower back and left leg. She did have a lumbar fixation performed in October which helped her right sided symptoms but now her left side is bothering her. She states she lives alone and she wanted to get her pain under control and possibly go to rehab to work on her weakness. Review of Systems Review of Systems: As per HPI Physical Exam Physical Exam: Constitutional: well appearing, no acute distress HEENT: normocephalic, no conjunctival injection CV: RRR, no murmur, no LE edema Respiratory: CTA bilaterally. No rhonchi, wheezes, or crackles. No increased work of breathing MSK: Difficulty moving left leg due to pain. Skin: warm, dry, no rashes Neuro: alert, oriented, Psych: mood and affect congruent Results & Data Results & Data Vital Signs (Past 12 Hours) Vital Signs Temp Pulse Resp BP Pulse Ox O2 Del Method 02/13/23 08:10 36.7 C 67 20 103/67 99 Room Air Resident Activity Tracking Resident Involvement: Resident Care Provided Care Provided: Adult Hospital Medicine
--- NOTE | 2023-02-13 10:22 | Electrocardiogram Report ---
Test Reason : Blood Pressure : / mmHG Vent. Rate : 070 BPM Atrial Rate : 070 BPM P-R Int : 154 ms QRS Dur : 086 ms QT Int : 426 ms P-R-T Axes : 026 -17 011 degrees QTc Int : 460 ms Normal sinus rhythm Minimal voltage criteria for LVH, may be normal variant ( R in aVL ) Anterior infarct (cited on or before 12-FEB-2023) Abnormal ECG When compared with ECG of 22-JAN-2023 20:52, No significant change was found Confirmed by Kaveh Frias ([id number]) on 02/13/2023 10:22:17 AM Referred By: REFERRED SELF Confirmed By:Kaveh Frias
[2023-02-13] MEDS: LANTUS PER UNIT CHARGE SC SCH (18:01)
[2023-02-13] MEDS: traZODone HCL 100 MG TAB PO SCH (21:41)
[2023-02-13] MEDS: MONTELUKAST SODIUM 10 MG TABLET PO SCH (21:41)
[2023-02-13] MEDS: DULoxetine HCL 60 MG CAP PO SCH (21:41)
[2023-02-14] MEDS: oxyCODONE HCL IR 5 MG TAB (IMMEDIATE RELEASE) PO PRN ×4 (07:40→20:46)
[2023-02-14] MEDS: [UNRECOGNIZED DRUG - REMARK] SCH ×3 (07:41→23:19)
[2023-02-14 07:45] LABS: Estimated Average Glucose 252 mg/dl; Hemoglobin A1C 10.4 % (4.5-5.6)
[2023-02-14 07:53] LABS: BUN Creatinine Ratio 21.3 (10-20); Calcium 7.8 mg/dl (8.6-10.3); Creatinine Clr Calc Pharmacy 163.8 ml/min; Est GFR (African American) 129.8 ml/min; Potassium 3.8 mmol/L (3.5-5.1)
[2023-02-14] MEDS: GABAPENTIN 800 MG TAB PO SCH ×3 (08:09→20:35)
[2023-02-14] MEDS: ASPIRIN 81 MG ECTAB PO SCH (08:09)
[2023-02-14] MEDS: PANTOprazole 40 MG TAB PO SCH (08:10)
[2023-02-14] MEDS: FEXOFENADINE HCL 180 MG TAB PO SCH (08:10)
[2023-02-14] MEDS: FAMOTIDINE 40 MG TABLET PO SCH ×2 (08:10→20:35)
[2023-02-14] MEDS: levETIRAcetam 500 MG TAB PO SCH ×2 (08:10→20:35)
[2023-02-14] MEDS: busPIRone 5 MG TAB PO SCH ×4 (08:11→20:35)
[2023-02-14] MEDS: POLYETHYLENE (MIRALAX) 17 GM PACK PO SCH ×2 (08:11→20:35)
[2023-02-14] MEDS: ENOXAPARIN INJ 40 MG/0.4 ML SYR SQ SCH (08:12)
[2023-02-14] MEDS: INSULIN ASPART PER UNIT CHARGE SC SCH ×4 (08:17→20:32)
--- NOTE | 2023-02-14 11:06 | Hospitalist Progress Note ---
Date of Service February 14, 2023 Assessment & Plan (1) Lumbar back pain with radiculopathy affecting left lower extremity: Plan: Pt is a 52 yo female with PMH of chronic low back pain s/p L3-L5 spinal fusion 10/2022, PE, uncontrolled DM, COPD, and depression/anxiety presenting due to increased back pain s/p fall. Acute on chronic lumbar back pain - s/p fall at home - CT head neg; MRI brain neg - lumbar CT showed no acute fractures w/ intact hardware; lumbar MRI showed no significant change in L5-S1 disk protrusion from last MRI (12/25/2022) - suspect symptoms mostly related to muscular imbalance leading to weakness/pain - continue home gabapentin 800 mg TID and duloxetine 60 mg HS - continue pain control w/ ibuprofen 800 mg TID PRN, oxycodone 10 mg q4hr PRN, and flexeril 10 mg BID PRN muscle spams (although pt only using oxy)- will give spot dose of dilaudid today - PT/OT recommending rehab Uncontrolled type 2 DM - A1c 8.9 in October - hold home trulicity - SSI per pharmacy Seizure disorder - continue keppra 1000 mg BID Anxiety - continue buspirone 5mg QID and trazodone 100 mg HS Diet: carb consistent DVT ppx: lovenox 40mg daily Code: full Dispo: med/surg, pending rehab placement (2) Uncontrolled type 2 diabetes mellitus: (3) Seizure disorder: (4) Ambulatory dysfunction: (5) Anxiety: Admission and Anticipated Discharge Date Admission Date: February 12, 2023 Supervising Physician Co-Signing Physician Notes I personally examined the patient and verified all brennan points of history and exam, discussed case, and agree with decision making with Dr Maximo Palacios lower back pain does not complain of radiating symptoms vitals noted nad heent nc at mmm breathing unlabored. ost/msk L sided pelvic muscles in region of piriformis high tone/tender/decreased ROM - LAS - improved some, pt tolerated well Weakness/deconditioning/biomechanical back pain/pelvic somatic dysfunctionPT/OT, would benefit from rehab if we can qualify her. Pain control. OMT as above. I suspect her way back to functional would entail ongoing therapy, ongoing OMT, and more of a support structure. otherwise as above, lovenox DVT proph Subjective Pt seen this AM at bedside. Her left lower back pain is worsened this morning. She had 3 doses of oxycodone yesterday. Pt does not want to use ibuprofen as she told a nurse that it does not help her. Otherwise no new complaints of chest pain, SOB, or leg pains. She does endorse pins and needles in her feet. Review of Systems Review of Systems: As per HPI Physical Exam Physical Exam: Constitutional: well appearing, no acute distress HEENT: normocephalic, no conjunctival injection CV: RRR, no murmur, no LE edema Respiratory: CTA bilaterally. No rhonchi, wheezes, or crackles. No increased work of breathing MSK: no gross deformities noted Skin: warm, dry, no rashes Neuro: alert, oriented, no FND noted Psych: mood and affect congruent Results & Data Results & Data Vital Signs (Past 12 Hours) Vital Signs Temp Pulse Resp BP Pulse Ox O2 Del Method 02/14/23 07:04 37 C 78 16 134/76 98 Room Air Resident Activity Tracking Resident Involvement: Resident Care Provided Care Provided: Adult Hospital Medicine
--- NOTE | 2023-02-14 12:36 | Pharmacy Report ---
Pharmacy Glycemic Short Note 2 - Date of Service February 14, 2023 - Glycemic Short BSG Results (Last 24 hours): 02/13/23 02/13/23 02/14/23 16:52 20:40 07:13 Glucose 247 H POC Glucose 235 H 162 H 02/14/23 02/14/23 07:55 11:55 Glucose POC Glucose 263 H 150 H OUTPATIENT ANTIDIABETIC REGIMEN: * Trulicity 4.5 mg SQ weekly * Humalog Mix or U-500 * HbA1C= 10.4% (02/14/23) ASSESSMENT: 02/14/23 * Patient's BSGs yesterday were [phone] mg/dL. Patient received 132 units of insulin (70 units of basal and 62 units of bolus). * Currently, Lantus is being transitioned to HS. Continue 70 units as patient historically has tolerated this. Fasting today was 263 mg/dL. * Patient's BSGs tend to trend upwards after being in range. Tighten CR to 3; patient has historically tolerated this. BACKGROUND * Ms Vick is a 52 y/o F with a PMH of T2DM who presents with lumbar pain. * Pharmacy consulted mid-afternoon (~1500). Patient's blood sugar on admission around that time was 304 mg/dL. * Per nurse, patient did NOT eat in the ER plus did not take an insulin today per patient report. * Based upon previous admissions, will begin typical regimen. * Lantus 70 units SQ x 1 then re-evaluate. * Novolog with tight parameters as patient insulin resistant. PLAN FOR INPATIENT GLYCEMIC CONTROL: * Basal insulin * Lantus 70 units SQ HS * Bolus insulin * NovoLog per scale ACHS or Q6hrs while NPO * Goal Range: Low 110 mg/dL - High 140 mg/dL * Correction Factor: 12 mg/dL/unit * Nutritional / Prandial insulin per carb ratio of 1 unit per 3 grams CHO consumed
[2023-02-14] MEDS ORDERED: HYDROmorphone INJ 1 MG/ML SYRINGE IV ONE (17:40)
--- NOTE | 2023-02-14 17:42 | Hospitalist Progress Note ---
Date of Service February 14, 2023 Assessment & Plan Admission and Anticipated Discharge Date Admission Date: February 12, 2023 Results & Data Results & Data Vital Signs (Past 12 Hours) Vital Signs Temp Pulse Resp BP Pulse Ox O2 Del Method 02/14/23 15:11 98.2 F 96 H 16 132/76 97 Room Air 02/14/23 07:04 98.6 F 78 16 134/76 98 Room Air PG Care Time/CCT Total # of Minutes Spent Total Time Spent with Patient: Total time spent is greater than 50% in coordination of care (as documented) at patient's floor/unit and/or counseling patient: Coding Level of Care Code None Diagnoses CPT Codes Musculoskeletal - Musculoskeletal: [address] 1-2 Body regions ([id number])
--- NOTE | 2023-02-14 17:42 | Billing Data ---
Date of Service February 14, 2023 Coding Level of Care Code 72702 SUB INP/OBS CARE
[2023-02-14] MEDS: MONTELUKAST SODIUM 10 MG TABLET PO SCH (20:35)
[2023-02-14] MEDS: traZODone HCL 100 MG TAB PO SCH (20:35)
[2023-02-14] MEDS: DULoxetine HCL 60 MG CAP PO SCH (20:35)
[2023-02-14] MEDS: LANTUS PER UNIT CHARGE SC SCH (20:48)
[2023-02-15] MEDS: oxyCODONE HCL IR 5 MG TAB (IMMEDIATE RELEASE) PO PRN ×5 (00:43→21:51)
--- NOTE | 2023-02-15 07:30 | Hospitalist Progress Note ---
Date of Service February 15, 2023 Assessment & Plan (1) Lumbar back pain with radiculopathy affecting left lower extremity: Plan: Pt is a 52 yo female with PMH of chronic low back pain s/p L3-L5 spinal fusion 10/2022, PE, uncontrolled DM, COPD, and depression/anxiety presenting due to increased back pain s/p fall. Acute on chronic lumbar back pain - s/p fall at home - CT head neg; MRI brain neg - lumbar CT showed no acute fractures w/ intact hardware; lumbar MRI showed no significant change in L5-S1 disk protrusion from last MRI (12/25/2022) - suspect symptoms mostly related to muscular imbalance leading to weakness/pain - continue home gabapentin 800 mg TID and duloxetine 60 mg HS - continue pain control w/ ibuprofen 800 mg TID PRN, oxycodone 10 mg q4hr PRN, and flexeril 10 mg BID PRN muscle spams; spot dose of 1 mg dilaudid given 02/14 - PT/OT recommending rehab Uncontrolled type 2 DM - A1c 8.9 in October - hold home trulicity - SSI per pharmacy Seizure disorder - continue keppra 1000 mg BID Anxiety - continue buspirone 5mg QID and trazodone 100 mg HS Diet: carb consistent DVT ppx: lovenox 40mg daily Code: full Dispo: med/surg, pending rehab placement (2) Uncontrolled type 2 diabetes mellitus: (3) Seizure disorder: (4) Ambulatory dysfunction: (5) Anxiety: Admission and Anticipated Discharge Date Admission Date: February 12, 2023 Supervising Physician Co-Signing Physician Notes I personally examined the patient and verified all brennan points of history and exam, discussed case, and agree with decision making with Dr Maximo caicedo low back pain vitals noted nad heent nc at mmm breathing unlabored. ost/msk L sided pelvic muscles in region of piriformis high tone/tender/decreased ROM - LAS - improved some, pt tolerated well Weakness/deconditioning/biomechanical back pain/pelvic somatic dysfunctionPT/OT, would benefit from rehab if we can qualify her. [facility] reviewing. continue pain control. OMT as above. I suspect her way back to functional would entail ongoing therapy, ongoing OMT, and more of a support structure. otherwise as above, lovenox DVT proph Subjective Pt seen at bedside this AM. She states her pain is still not controlled. The dilaudid yesterday helped her pain for a bit and helped her to sleep. She also has a headache this morning. Review of Systems Review of Systems: As per HPI Physical Exam Physical Exam: Constitutional: well appearing, no acute distress HEENT: normocephalic, no conjunctival injection CV: RRR, no murmur, no LE edema Respiratory: CTA bilaterally. No rhonchi, wheezes, or crackles. No increased work of breathing MSK: no gross deformities noted Skin: warm, dry, no rashes Neuro: alert, oriented, no FND noted Psych: mood and affect congruent Results & Data Results & Data Vital Signs (Past 12 Hours) Vital Signs Temp Pulse Resp BP Pulse Ox O2 Del Method 02/15/23 07:24 37.0 C 92 H 17 114/75 97 Room Air 02/14/23 22:30 36.8 C 99 H 18 111/72 95 Room Air 02/14/23 20:30 Room Air Resident Activity Tracking Resident Involvement: Resident Care Provided Care Provided: Adult Hospital Medicine
[2023-02-15] MEDS: [UNRECOGNIZED DRUG - REMARK] SCH (08:33)
[2023-02-15] MEDS: FEXOFENADINE HCL 180 MG TAB PO SCH (08:33)
[2023-02-15] MEDS: ASPIRIN 81 MG ECTAB PO SCH (08:34)
[2023-02-15] MEDS: PANTOprazole 40 MG TAB PO SCH (08:34)
[2023-02-15] MEDS: POLYETHYLENE (MIRALAX) 17 GM PACK PO SCH ×2 (08:34→20:53)
[2023-02-15] MEDS: GABAPENTIN 800 MG TAB PO SCH ×3 (08:34→20:51)
[2023-02-15] MEDS: levETIRAcetam 500 MG TAB PO SCH ×2 (08:34→20:51)
[2023-02-15] MEDS: FAMOTIDINE 40 MG TABLET PO SCH ×2 (08:35→20:52)
[2023-02-15] MEDS: busPIRone 5 MG TAB PO SCH ×4 (08:35→20:52)
[2023-02-15] MEDS: ENOXAPARIN INJ 40 MG/0.4 ML SYR SQ SCH (08:36)
[2023-02-15] MEDS: INSULIN ASPART PER UNIT CHARGE SC SCH ×4 (08:51→20:56)
[2023-02-15] MEDS: IBUPROFEN 800 MG TAB PO PRN ×2 (12:21→22:09)
--- NOTE | 2023-02-15 15:39 | Billing Data ---
Date of Service February 15, 2023 Coding Level of Care Code 75686 SUB INP/OBS CARE
--- NOTE | 2023-02-15 15:39 | Billing Data ---
Date of Service February 15, 2023 Coding Level of Care Code 48081 SUB INP/OBS CARE
--- NOTE | 2023-02-15 15:40 | Hospitalist Progress Note ---
Date of Service February 15, 2023 Assessment & Plan Admission and Anticipated Discharge Date Admission Date: February 12, 2023 Results & Data Results & Data Vital Signs (Past 12 Hours) Vital Signs Temp Pulse Resp BP Pulse Ox O2 Del Method 02/15/23 14:50 98.4 F 90 17 106/71 96 Room Air 02/15/23 07:24 98.6 F 92 H 17 114/75 97 Room Air PG Care Time/CCT Total # of Minutes Spent Total Time Spent with Patient: Total time spent is greater than 50% in coordination of care (as documented) at patient's floor/unit and/or counseling patient: Coding Level of Care Code None Diagnoses CPT Codes Musculoskeletal - Musculoskeletal: 80847 Oste[address] Shaq Tr 1-2 Body regions ([id number])
[2023-02-15] MEDS: CYCLOBENZAPRINE HCL 10 MG TAB PO PRN (19:28)
[2023-02-15] MEDS: DULoxetine HCL 60 MG CAP PO SCH (20:52)
[2023-02-15] MEDS: traZODone HCL 100 MG TAB PO SCH (20:52)
[2023-02-15] MEDS: MONTELUKAST SODIUM 10 MG TABLET PO SCH (20:52)
[2023-02-15] MEDS: LANTUS PER UNIT CHARGE SC SCH (20:57)
[2023-02-16] MEDS: oxyCODONE HCL IR 5 MG TAB (IMMEDIATE RELEASE) PO PRN ×5 (02:15→20:08)
--- NOTE | 2023-02-16 07:08 | Hospitalist Progress Note ---
Date of Service February 16, 2023 Assessment & Plan (1) Lumbar back pain with radiculopathy affecting left lower extremity: Plan: Pt is a 52 yo female with PMH of chronic low back pain s/p L3-L5 spinal fusion 10/2022, PE, uncontrolled DM, COPD, and depression/anxiety presenting due to increased back pain s/p fall. Update 02/16: [place] care reviewing. Pending placement. Pain under reasonable control. Acute on chronic lumbar back pain - s/p fall at home - CT head neg; MRI brain neg - lumbar CT showed no acute fractures w/ intact hardware; lumbar MRI showed no significant change in L5-S1 disk protrusion from last MRI (12/25/2022) - suspect symptoms mostly related to muscular imbalance leading to weakness/pain - continue home gabapentin 800 mg TID and duloxetine 60 mg HS - continue pain control w/ ibuprofen 800 mg TID PRN, oxycodone 10 mg q4hr PRN, and flexeril 10 mg BID PRN muscle spams; spot dose of 1 mg dilaudid given 02/14 - PT/OT recommending rehab Uncontrolled type 2 DM - A1c 8.9 in October - hold home trulicity - SSI per pharmacy Seizure disorder - continue keppra 1000 mg BID Anxiety - continue buspirone 5mg QID and trazodone 100 mg HS Diet: carb consistent DVT ppx: lovenox 40mg daily Code: full Dispo: med/surg; pending rehab- [facility] unable to accept, [facility] reviewing (2) Uncontrolled type 2 diabetes mellitus: (3) Seizure disorder: (4) Ambulatory dysfunction: (5) Anxiety: Admission and Anticipated Discharge Date Admission Date: February 15, 2023 Supervising Physician Co-Signing Physician Notes I personally examined the patient and verified all brennan points of history and exam, discussed case, and agree with decision making with Dr Marsh Ongoing low back pain. About the same as yesterday. Awaiting on determination from [facility]. vitals noted nad heent nc at mmm breathing unlabored. Skin no rashes pallor or icterus. Weakness/deconditioning/biomechanical back pain/pelvic somatic dysfunctionPT/OT, would benefit from rehab if we can qualify her. Hopefully will be able to go to [facility] with rehab emphasis. continue pain control. OMT done several times throughout her hospital stay, will hold for today. I suspect her way back to functional would entail ongoing therapy, ongoing OMT, and more of a support structure. otherwise as above, joanie DVT proph Subjective Pt seen at bedside this AM. She states her pain is no better and no worse. Her head still occasionally hurts and has been taking motrin for this. Otherwise, no new complaints of chest pain, SOB, or lower leg pains. Review of Systems Review of Systems: As per HPI Physical Exam Physical Exam: Constitutional: well appearing, no acute distress HEENT: normocephalic, no conjunctival injection CV: RRR, no murmur, no LE edema Respiratory: CTA bilaterally. No rhonchi, wheezes, or crackles. No increased work of breathing MSK: no gross deformities noted, tightness/tenderness noted at right piriformis Skin: warm, dry, no rashes Neuro: alert, oriented, no FND noted Psych: mood and affect congruent Results & Data Results & Data Vital Signs (Past 12 Hours) Vital Signs Temp Pulse Resp BP Pulse Ox O2 Del Method 02/15/23 21:50 Room Air 02/15/23 20:47 36.9 C 95 H 16 154/119 H 97 Room Air Resident Activity Tracking Resident Involvement: Resident Care Provided Care Provided: Adult Hospital Medicine
[2023-02-16] MEDS: ENOXAPARIN INJ 40 MG/0.4 ML SYR SQ SCH (08:01)
[2023-02-16] MEDS: POLYETHYLENE (MIRALAX) 17 GM PACK PO SCH ×2 (08:02→21:44)
[2023-02-16] MEDS: ASPIRIN 81 MG ECTAB PO SCH (08:02)
[2023-02-16] MEDS: IBUPROFEN 800 MG TAB PO PRN ×2 (08:02→14:02)
[2023-02-16] MEDS: PANTOprazole 40 MG TAB PO SCH (08:03)
[2023-02-16] MEDS: FEXOFENADINE HCL 180 MG TAB PO SCH (08:03)
[2023-02-16] MEDS: GABAPENTIN 800 MG TAB PO SCH ×3 (08:03→20:13)
[2023-02-16] MEDS: levETIRAcetam 500 MG TAB PO SCH ×2 (08:04→20:13)
[2023-02-16] MEDS: FAMOTIDINE 40 MG TABLET PO SCH ×2 (08:04→20:13)
[2023-02-16] MEDS: busPIRone 5 MG TAB PO SCH ×4 (08:04→20:13)
[2023-02-16] MEDS: CYCLOBENZAPRINE HCL 10 MG TAB PO PRN ×2 (08:07→20:13)
[2023-02-16] MEDS: INSULIN ASPART PER UNIT CHARGE SC SCH ×4 (09:14→21:19)
--- NOTE | 2023-02-16 12:58 | Pharmacy Report ---
Pharmacy Glycemic Short Note 2 - Date of Service February 16, 2023 - Glycemic Short BSG Results (Last 24 hours): 02/15/23 02/15/23 02/16/23 17:05 20:23 08:05 POC Glucose 231 H 97 289 H 02/16/23 11:54 POC Glucose 259 H OUTPATIENT ANTIDIABETIC REGIMEN: * Trulicity 4.5 mg SQ weekly * Humalog Mix or U-500 HbA1C= 10.4% (02/14/23) ASSESSMENT: 02/16/23 * Unclear reason for hyperglycemia today - will tighten Novolog carb coverage and allow for increased basal dose this evening via scale * Patient awaiting placement 02/14/23 * Patient's BSGs yesterday were [phone] mg/dL. Patient received 132 units of insulin (70 units of basal and 62 units of bolus). * Currently, Lantus is being transitioned to HS. Continue 70 units as patient historically has tolerated this. Fasting today was 263 mg/dL. * Patient's BSGs tend to trend upwards after being in range. Tighten CR to 3; patient has historically tolerated this. BACKGROUND * Ms Vick is a 52 y/o F with a PMH of T2DM who presents with lumbar pain. * Pharmacy consulted mid-afternoon (~1500). Patient's blood sugar on admission around that time was 304 mg/dL. * Per nurse, patient did NOT eat in the ER plus did not take an insulin today per patient report. * Based upon previous admissions, will begin typical regimen. * Lantus 70 units SQ x 1 then re-evaluate. * Novolog with tight parameters as patient insulin resistant. PLAN FOR INPATIENT GLYCEMIC CONTROL: * Basal insulin * Lantus 70-80 units SQ HS * Bolus insulin * NovoLog per scale ACHS or Q6hrs while NPO * Goal Range: Low 110 mg/dL - High 140 mg/dL * Correction Factor: 12 mg/dL/unit * Nutritional / Prandial insulin per carb ratio of 1 unit per 3 grams CHO consumed
--- NOTE | 2023-02-16 13:07 | Billing Data ---
Date of Service February 16, 2023 Coding Level of Care Code 68005 SUB INP/OBS CARE
[2023-02-16] MEDS: DULoxetine HCL 60 MG CAP PO SCH (20:13)
[2023-02-16] MEDS: MONTELUKAST SODIUM 10 MG TABLET PO SCH (20:13)
[2023-02-16] MEDS: traZODone HCL 100 MG TAB PO SCH (20:13)
[2023-02-16] MEDS: LANTUS PER UNIT CHARGE SC SCH (21:20)
[2023-02-17] MEDS: oxyCODONE HCL IR 5 MG TAB (IMMEDIATE RELEASE) PO PRN ×6 (00:09→21:30)
[2023-02-17] MEDS ORDERED: DICLOFENAC SOD 1% GEL 100 GM TUBE EXT PRN (07:42)
--- NOTE | 2023-02-17 08:03 | Hospitalist Progress Note ---
Date of Service February 17, 2023 Assessment & Plan (1) Lumbar back pain with radiculopathy affecting left lower extremity: Plan: Pt is a 52 yo female with PMH of chronic low back pain s/p L3-L5 spinal fusion 10/2022, PE, uncontrolled DM, COPD, and depression/anxiety presenting due to increased back pain s/p fall. Update 02/17: [facility] care declined. Her pain is worsened today so she is wanting another day to work with PT in hospital to help her get a little stronger and control her pain before going home. Pt is ok with discharge tomorrow with home health. Acute on chronic lumbar back pain - s/p fall at home - CT head neg; MRI brain neg - lumbar CT showed no acute fractures w/ intact hardware; lumbar MRI showed no significant change in L5-S1 disk protrusion from last MRI (12/25/2022) - suspect symptoms mostly related to muscular imbalance leading to weakness/pain - continue home gabapentin 800 mg TID and duloxetine 60 mg HS - continue pain control w/ ibuprofen 800 mg TID PRN, oxycodone 10 mg q4hr PRN, and flexeril 10 mg BID PRN muscle spams; spot dose of 1 mg dilaudid given 02/14 - PT/OT deemed pt independent Uncontrolled type 2 DM - A1c 8.9 in October - hold home trulicity - SSI per pharmacy Seizure disorder - continue keppra 1000 mg BID Anxiety - continue buspirone 5mg QID and trazodone 100 mg HS Diet: carb consistent DVT ppx: lovenox 40mg daily Code: full Dispo: med/surg; plan for discharge tomorrow w/ home health (2) Uncontrolled type 2 diabetes mellitus: (3) Seizure disorder: (4) Ambulatory dysfunction: (5) Anxiety: Admission and Anticipated Discharge Date Admission Date: February 15, 2023 Supervising Physician Co-Signing Physician Notes I personally examined the patient and verified all brennan points of history and exam, discussed case, and agree with decision making with Dr Maximo cat. [facility] denied. d/w resident physician that she's planning on home tomorrow vitals noted sleeping nad heent nc at mmm breathing unlabored. Skin no rashes pallor or icterus. Weakness/deconditioning/biomechanical back pain/pelvic somatic dysfunctionPT/OT, would benefit from rehab but unfortunately we could not. OMT done several times throughout her hospital stay, will hold for today. I suspect her way back to functional would entail ongoing therapy, ongoing OMT, and more of a support structure. We will have to set this up for home otherwise as above, joanie DVT proph Subjective Pt seen at bedside this AM. Her pain is worse today than yesterday in her back, head, and abdomen. She has been having regular bowel movements. We discussed that [facility] cannot accept because she is deemed independent. She agrees with home health. Review of Systems Review of Systems: As per HPI Physical Exam Physical Exam: Constitutional: well appearing, no acute distress HEENT: normocephalic, no conjunctival injection CV: RRR, no murmur, no LE edema Respiratory: CTA bilaterally. No rhonchi, wheezes, or crackles. No increased work of breathing MSK: no gross deformities noted Skin: warm, dry, no rashes Neuro: alert, oriented, no FND noted Psych: mood and affect congruent Results & Data Results & Data Vital Signs (Past 12 Hours) Vital Signs Temp Pulse Resp BP Pulse Ox O2 Del Method 02/17/23 07:34 36.7 C 97 H 16 126/72 96 Room Air 02/16/23 20:05 Room Air 02/16/23 21:48 36.4 C L 92 H 16 122/70 100 Room Air Resident Activity Tracking Resident Involvement: Resident Care Provided Care Provided: Adult Hospital Medicine
[2023-02-17] MEDS: ASPIRIN 81 MG ECTAB PO SCH (08:35)
[2023-02-17] MEDS: FEXOFENADINE HCL 180 MG TAB PO SCH (08:35)
[2023-02-17] MEDS: levETIRAcetam 500 MG TAB PO SCH ×2 (08:35→21:33)
[2023-02-17] MEDS: PANTOprazole 40 MG TAB PO SCH (08:35)
[2023-02-17] MEDS: GABAPENTIN 800 MG TAB PO SCH ×3 (08:36→21:32)
[2023-02-17] MEDS: busPIRone 5 MG TAB PO SCH ×4 (08:36→21:32)
[2023-02-17] MEDS: FAMOTIDINE 40 MG TABLET PO SCH ×2 (08:36→21:32)
[2023-02-17] MEDS: ENOXAPARIN INJ 40 MG/0.4 ML SYR SQ SCH (08:37)
[2023-02-17] MEDS: POLYETHYLENE (MIRALAX) 17 GM PACK PO SCH ×2 (08:38→21:33)
[2023-02-17] MEDS: INSULIN ASPART PER UNIT CHARGE SC SCH ×4 (08:41→21:35)
[2023-02-17] MEDS: LANTUS PER UNIT CHARGE SC SCH ×2 (09:59→21:35)
--- NOTE | 2023-02-17 12:10 | Pharmacy Report ---
Pharmacy Glycemic Short Note 2 - Date of Service February 17, 2023 - Glycemic Short BSG Results (Last 24 hours): 02/16/23 02/16/23 02/17/23 17:03 20:03 07:52 POC Glucose 198 H 171 H 325 H* 02/17/23 02/17/23 02/17/23 07:53 07:55 11:42 POC Glucose 297 H 290 H 235 H OUTPATIENT ANTIDIABETIC REGIMEN: * U-500: 20-50 units SC TID (prescribed 100 units SC TID but patient takes less "as 100 units was too much") * HbA1C= 10.4% (02/14/23) ASSESSMENT: 02/17: * Elza received 151 units of insulin yesterday, 80 units basal + 71 units bolus. BSGs were uncontrolled: [phone] mg/dL. * Fasting BSG was 290 mg/dL this AM, well above goal. Spoke with RN who states it is very possible that patient is snacking in between hospital meals and this has been true during past admissions as well. * However, will split basal dose into BID regimen as patient has previously been controlled on this regimen. Will also increase by 20% today. * Despite BSGs trending down throughout the day yesterday, they are still sig nificantly above goal. * Therefore, will tighten both correction factor and carb ratio today. 02/16: * Unclear reason for hyperglycemia today - will tighten Novolog carb coverage and allow for increased basal dose this evening via scale * Patient awaiting placement 02/14: * Patient's BSGs yesterday were [phone] mg/dL. Patient received 132 units of insulin (70 units of basal and 62 units of bolus). * Currently, Lantus is being transitioned to HS. Continue 70 units as patient historically has tolerated this. Fasting today was 263 mg/dL. * Patient's BSGs tend to trend upwards after being in range. Tighten CR to 3; patient has historically tolerated this. BACKGROUND: * Ms Vick is a 52 y/o F with a PMH of T2DM who presents with lumbar pain. * Pharmacy consulted mid-afternoon (~1500). Patient's blood sugar on admission around that time was 304 mg/dL. * Per nurse, patient did NOT eat in the ER plus did not take an insulin today per patient report. * Based upon previous admissions, will begin typical regimen. * Lantus 70 units SQ x 1 then re-evaluate. * Novolog with tight parameters as patient insulin resistant. PLAN FOR INPATIENT GLYCEMIC CONTROL: * Basal insulin * Lantus 40 units SC AM * Lantus 45-55 units SC PM per scale (see eMAR for more details) * Bolus insulin * NovoLog per scale ACHS or Q6hrs while NPO * Goal Range: Low 110 mg/dL - High 140 mg/dL * Correction Factor: 10 mg/dL/unit * Nutritional / Prandial insulin per carb ratio of 1 unit per 2 grams CHO consumed
[2023-02-17] MEDS ORDERED: diazePAM 2 MG TABLET PO ONE (15:39)
--- NOTE | 2023-02-17 17:36 | Billing Data ---
Date of Service February 17, 2023 Coding Level of Care Code 38003 SUB INP/OBS CARE
[2023-02-17] MEDS: CYCLOBENZAPRINE HCL 10 MG TAB PO PRN (21:30)
[2023-02-17] MEDS: DULoxetine HCL 60 MG CAP PO SCH (21:32)
[2023-02-17] MEDS: traZODone HCL 100 MG TAB PO SCH (21:33)
[2023-02-17] MEDS: MONTELUKAST SODIUM 10 MG TABLET PO SCH (21:33)
[2023-02-18] MEDS: oxyCODONE HCL IR 5 MG TAB (IMMEDIATE RELEASE) PO PRN ×5 (02:28→20:58)
[2023-02-18] MEDS: levETIRAcetam 500 MG TAB PO SCH ×2 (09:13→20:20)
[2023-02-18] MEDS: FAMOTIDINE 40 MG TABLET PO SCH ×2 (09:13→20:20)
[2023-02-18] MEDS: GABAPENTIN 800 MG TAB PO SCH ×3 (09:13→20:20)
[2023-02-18] MEDS: ASPIRIN 81 MG ECTAB PO SCH (09:13)
[2023-02-18] MEDS: busPIRone 5 MG TAB PO SCH ×4 (09:13→20:19)
[2023-02-18] MEDS: FEXOFENADINE HCL 180 MG TAB PO SCH (09:13)
[2023-02-18] MEDS: PANTOprazole 40 MG TAB PO SCH (09:13)
[2023-02-18] MEDS: ENOXAPARIN INJ 40 MG/0.4 ML SYR SQ SCH (09:14)
[2023-02-18] MEDS: POLYETHYLENE (MIRALAX) 17 GM PACK PO SCH ×2 (09:14→20:20)
[2023-02-18] MEDS: LANTUS PER UNIT CHARGE SC SCH ×2 (09:15→20:57)
[2023-02-18] MEDS: INSULIN ASPART PER UNIT CHARGE SC SCH ×4 (09:15→20:58)
[2023-02-18] MEDS ORDERED: diazePAM 2 MG TABLET PO ONE (09:47)
--- NOTE | 2023-02-18 10:29 | Hospitalist Progress Note ---
Date of Service February 18, 2023 Assessment & Plan (1) Lumbar back pain with radiculopathy affecting left lower extremity: Plan: Pt is a 52 yo female with PMH of chronic low back pain s/p L3-L5 spinal fusion 10/2022, PE, uncontrolled DM, COPD, and depression/anxiety presenting due to increased back pain s/p fall. Update 02/18: [place] care declined yesterday. There was a misunderstanding between the healthcare team and patient as she thought maybe we could retry to apply for rehab; however, she will not qualify for SNF due to her improvement with PT. Plan was to go home with home health today but in light of pt's misunderstanding and mental state, she feels that one more day to get her pain more controlled and another session of PT would benefit her. Plan to discharge home tomorrow with home health. Acute on chronic lumbar back pain - s/p fall at home - CT head neg; MRI brain neg - lumbar CT showed no acute fractures w/ intact hardware; lumbar MRI showed no significant change in L5-S1 disk protrusion from last MRI (12/25/2022) - suspect symptoms mostly related to muscular imbalance leading to weakness/pain - continue home gabapentin 800 mg TID and duloxetine 60 mg HS - continue pain control w/ ibuprofen 800 mg TID PRN, oxycodone 10 mg q4hr PRN, and flexeril 10 mg BID PRN muscle spams; spot dose of 1mg dilaudid given 02/14, valium 2mg given 02/17 - PT/OT deemed pt safe to return home Uncontrolled type 2 DM - A1c 8.9 in October - hold home trulicity - SSI per pharmacy Seizure disorder - continue keppra 1000 mg BID Anxiety - continue buspirone 5mg QID and trazodone 100 mg HS Diet: carb consistent DVT ppx: lovenox 40mg daily Code: full Dispo: med/surg; plan for discharge tomorrow w/ home health (2) Uncontrolled type 2 diabetes mellitus: (3) Seizure disorder: (4) Ambulatory dysfunction: (5) Anxiety: Admission and Anticipated Discharge Date Admission Date: February 15, 2023 Supervising Physician Co-Signing Physician Notes I personally examined the patient and verified all brennan points of history and exam, discussed case, and agree with decision making with Dr Marsh thinking home tomorrow if revisit w PT doesn't yield SNF vitals noted sleeping nad heent nc at mmm breathing unlabored. Skin no rashes pallor or icterus. Weakness/deconditioning/biomechanical back pain/pelvic somatic dysfunctionPT/OT, would benefit from rehab but unfortunately we could not. home probably tomorrow, cautiously, with outpt PT/OMT/etc otherwise as above, lovenox DVT proph Subjective Pt's pain is baseline to slightly worse this AM. She states that the physical therapist yesterday told her that she is not independent. She asked me to talk with them about this and trying to get her into rehab. Otherwise, she did ask f or further morphine to help with her pain control to "get her square." I explained to her that she had a dose of valium yesterday to help relax her muscle as this would be more helpful than more opioid medication. Review of Systems Review of Systems: As per HPI Physical Exam Physical Exam: Constitutional: well appearing, no acute distress HEENT: normocephalic, no conjunctival injection CV: RRR, no murmur, no LE edema Respiratory: CTA bilaterally. No rhonchi, wheezes, or crackles. No increased work of breathing MSK: no gross deformities noted Skin: warm, dry, no rashes Neuro: alert, oriented, no FND noted Psych: mood and affect congruent Results & Data Results & Data Vital Signs (Past 12 Hours) Vital Signs Temp Pulse Resp BP Pulse Ox O2 Del Method 02/18/23 07:46 36.8 C 83 16 121/75 95 Room Air Resident Activity Tracking Resident Involvement: Resident Care Provided Care Provided: Adult Hospital Medicine
[2023-02-18] MEDS ORDERED: INSULIN ASPART PER UNIT CHARGE SC ONE (13:45)
--- NOTE | 2023-02-18 13:45 | Pharmacy Report ---
Pharmacy Glycemic Short Note 2 - Date of Service February 18, 2023 - Glycemic Short BSG Results (Last 24 hours): 02/17/23 02/17/23 02/18/23 16:56 20:27 07:57 POC Glucose 180 H 138 H 155 H 02/18/23 02/18/23 12:05 12:07 POC Glucose 304 H* 316 H* OUTPATIENT ANTIDIABETIC REGIMEN: * U-500: 20-50 units SC TID (prescribed 100 units SC TID but patient takes less "as 100 units was too much") * HbA1C= 10.4% (02/14/23) ASSESSMENT: 02/18: * BSGs much improved yesterday * Received 148 units of insulin (85 units of basal and 63 units of prandial/correctional bolus) * BSG at lunch of 316 mg/dL, per RN patient consumed 20 saltine crackers prior to BSG check * Calculator instructed > 70 units of Novolog - d/c'd this order and placed one-time 30 unit dose * Plan was for discharge today, but this is likely delayed until tomorrow 02/17: * Elza received 151 units of insulin yesterday, 80 units basal + 71 units bolus. BSGs were uncontrolled: [phone] mg/dL. * Fasting BSG was 290 mg/dL this AM, well above goal. Spoke with RN who states it is very possible that patient is snacking in between hospital meals and this has been true during past admissions as well. * However, will split basal dose into BID regimen as patient has previously been controlled on this regimen. Will also increase by 20% today. * Despite BSGs trending down throughout the day yesterday, they are still significantly above goal. * Therefore, will tighten both correction factor and carb ratio today. 02/16: * Unclear reason for hyperglycemia today - will tighten Novolog carb coverage and allow for increased basal dose this evening via scale * Patient awaiting placement 02/14: * Patient's BSGs yesterday were [phone] mg/dL. Patient received 132 units of insulin (70 units of basal and 62 units of bolus). * Currently, Lantus is being transitioned to HS. Continue 70 units as patient historically has tolerated this. Fasting today was 263 mg/dL. * Patient's BSGs tend to trend upwards after being in range. Tighten CR to 3; patient has historically tolerated this. BACKGROUND: * Ms Vick is a 52 y/o F with a PMH of T2DM who presents with lumbar pain. * Pharmacy consulted mid-afternoon (~1500). Patient's blood sugar on admission around that time was 304 mg/dL. * Per nurse, patient did NOT eat in the ER plus did not take an insulin today per patient report. * Based upon previous admissions, will begin typical regimen. * Lantus 70 units SQ x 1 then re-evaluate. * Novolog with tight parameters as patient insulin resistant. PLAN FOR INPATIENT GLYCEMIC CONTROL: * Basal insulin * Lantus 40 units SC AM * Lantus 45-55 units SC PM per scale (see eMAR for more details) * Bolus insulin * NovoLog per scale ACHS or Q6hrs while NPO * Goal Range: Low 110 mg/dL - High 140 mg/dL * Correction Factor: 10 mg/dL/unit * Nutritional / Prandial insulin per carb ratio of 1 unit per 2.5 grams CHO consumed
--- NOTE | 2023-02-18 17:40 | Billing Data ---
Date of Service February 18, 2023 Coding Level of Care Code 59338 SUB INP/OBS CARE
--- NOTE | 2023-02-18 17:41 | Billing Data ---
Date of Service February 18, 2023 Coding Level of Care Code 99783 SUB INP/OBS CARE
[2023-02-18] MEDS: CYCLOBENZAPRINE HCL 10 MG TAB PO PRN (18:15)
[2023-02-18] MEDS: IBUPROFEN 800 MG TAB PO PRN (19:57)
[2023-02-18] MEDS: MONTELUKAST SODIUM 10 MG TABLET PO SCH (20:20)
[2023-02-18] MEDS: DULoxetine HCL 60 MG CAP PO SCH (20:20)
[2023-02-18] MEDS: traZODone HCL 100 MG TAB PO SCH (20:20)
[2023-02-18] MEDS ORDERED: LANTUS PER UNIT CHARGE SQ SCH (21:00)
[2023-02-18] MEDS ORDERED: HYDROmorphone INJ 0.5 MG/0.5 ML SYR IV STA (21:21)
[2023-02-19] MEDS: oxyCODONE HCL IR 5 MG TAB (IMMEDIATE RELEASE) PO PRN ×6 (01:00→21:58)
[2023-02-19] MEDS: INSULIN ASPART PER UNIT CHARGE SC SCH ×4 (09:23→21:19)
[2023-02-19] MEDS: levETIRAcetam 500 MG TAB PO SCH ×2 (09:24→20:39)
[2023-02-19] MEDS: LANTUS PER UNIT CHARGE SC SCH ×2 (09:24→21:20)
[2023-02-19] MEDS: GABAPENTIN 800 MG TAB PO SCH ×3 (09:25→20:39)
[2023-02-19] MEDS: ENOXAPARIN INJ 40 MG/0.4 ML SYR SQ SCH (09:25)
[2023-02-19] MEDS: busPIRone 5 MG TAB PO SCH ×4 (09:25→20:39)
[2023-02-19] MEDS: FEXOFENADINE HCL 180 MG TAB PO SCH (09:25)
[2023-02-19] MEDS: PANTOprazole 40 MG TAB PO SCH (09:25)
[2023-02-19] MEDS: ASPIRIN 81 MG ECTAB PO SCH (09:25)
[2023-02-19] MEDS: FAMOTIDINE 40 MG TABLET PO SCH ×2 (09:25→20:39)
[2023-02-19] MEDS: POLYETHYLENE (MIRALAX) 17 GM PACK PO SCH ×2 (09:26→20:39)
--- NOTE | 2023-02-19 13:50 | Hospitalist Progress Note ---
Date of Service February 19, 2023 Assessment & Plan (1) Lumbar back pain with radiculopathy affecting left lower extremity: Plan: Pt is a 52 yo female with PMH of chronic low back pain s/p L3-L5 spinal fusion 10/2022, PE, uncontrolled DM, COPD, and depression/anxiety presenting due to increased back pain s/p fall. Update 02/18: [facility] care declined yesterday. There was a misunderstanding between the healthcare team and patient as she thought maybe we could retry to apply for rehab; however, she will not qualify for SNF due to her improvement with PT. Plan was to go home with home health today but in light of pt's misunderstanding and mental state, she feels that one more day to get her pain more controlled and another session of PT would benefit her. Plan to discharge home tomorrow with home health when patient's friend comes to stay with her. Acute on chronic lumbar back pain - s/p fall at home - CT head neg; MRI brain neg - lumbar CT showed no acute fractures w/ intact hardware; lumbar MRI showed no significant change in L5-S1 disk protrusion from last MRI (12/25/2022) - suspect symptoms mostly related to muscular imbalance leading to weakness/pain - continue home gabapentin 800 mg TID and duloxetine 60 mg HS - continue pain control w/ ibuprofen 800 mg TID PRN, oxycodone 10 mg q4hr PRN, and flexeril 10 mg BID PRN muscle spams; spot dose of 1mg dilaudid given 02/14, valium 2mg given 02/17 - PT/OT deemed pt safe to return home Uncontrolled type 2 DM - A1c 8.9 in October - hold home trulicity - SSI per pharmacy Seizure disorder - continue keppra 1000 mg BID Anxiety - continue buspirone 5mg QID and trazodone 100 mg HS Diet: carb consistent DVT ppx: lovenox 40mg daily Code: full Dispo: med/surg; plan for discharge tomorrow w/ home health (2) Uncontrolled type 2 diabetes mellitus: (3) Seizure disorder: (4) Ambulatory dysfunction: (5) Anxiety: Admission and Anticipated Discharge Date Admission Date: February 15, 2023 Supervising Physician Co-Signing Physician Notes I personally examined the patient and verified all brennan points of history and exam, discussed case, and agree with decision making with Dr Caballero has a friend driving up from [place] to stay with her - will be here tomorrow, so feels that it will be safer to go home once she has support. had leg cramps yesterday vitals noted sleeping nad heent nc at mmm breathing unlabored. Skin no rashes p allor or icterus. Weakness/deconditioning/biomechanical back pain/pelvic somatic dysfunctionPT/OT, would benefit from rehab but unfortunately we could not. home - will wait till tomorrow since her friend is coming. mag for muscle spasms. otherwise as above, lovenox DVT proph Subjective Patient seen at the bedside this morning saying she feels okay however still not at 100% to go back home with home health just yet since she lives on her own. She has a friend who will be coming up to visit her later to day and stay with her tomorrow so discharge likely in the morning. Denies fevers, chills, shortness of breath, chest pain. Only complaint overnight is leg cramping which she said was not relieved until one dose 0.5mg dilaudid. Review of Systems Review of Systems: As per HPI Physical Exam Constitutional: WD/WN, vitals as above Eyes: PERRL, conjunctivae normal, anicteric sclerae Respiratory: normal respiratory effort, lungs clear to auscultation Cardiovascular: RRR, no murmur, no edema Gastrointestinal (Abdomen): normal bowel sounds, soft, nontender, no hepatosplenomegaly Psychiatric: A+Ox3, euthymic affect Results & Data Results & Data Vital Signs (Past 12 Hours) Vital Signs Temp Pulse Resp BP Pulse Ox O2 Del Method 02/19/23 07:37 36.4 C L 82 16 117/79 99 Room Air Resident Activity Tracking Resident Involvement: Resident Care Provided Care Provided: Adult Hospital Medicine
--- NOTE | 2023-02-19 14:27 | Billing Data ---
Date of Service February 19, 2023 Coding Level of Care Code 64582 SUB INP/OBS CARE
[2023-02-19] MEDS: MAGNESIUM SULFATE / D5W 1 GM/100 ML BAG IV SCH ×2 (15:38→17:06)
[2023-02-19] MEDS: IBUPROFEN 800 MG TAB PO PRN (20:39)
[2023-02-19] MEDS: MONTELUKAST SODIUM 10 MG TABLET PO SCH (20:39)
[2023-02-19] MEDS: DULoxetine HCL 60 MG CAP PO SCH (20:39)
[2023-02-19] MEDS: traZODone HCL 100 MG TAB PO SCH (20:39)
[2023-02-19] MEDS: CYCLOBENZAPRINE HCL 10 MG TAB PO PRN (20:40)
[2023-02-20] MEDS: oxyCODONE HCL IR 5 MG TAB (IMMEDIATE RELEASE) PO PRN ×4 (02:01→14:07)
[2023-02-20] MEDS: levETIRAcetam 500 MG TAB PO SCH (09:12)
[2023-02-20] MEDS: GABAPENTIN 800 MG TAB PO SCH ×2 (09:12→14:08)
[2023-02-20] MEDS: FAMOTIDINE 40 MG TABLET PO SCH (09:13)
[2023-02-20] MEDS: busPIRone 5 MG TAB PO SCH ×2 (09:13→14:08)
[2023-02-20] MEDS: IBUPROFEN 800 MG TAB PO PRN (09:14)
[2023-02-20] MEDS: PANTOprazole 40 MG TAB PO SCH (09:14)
[2023-02-20] MEDS: ENOXAPARIN INJ 40 MG/0.4 ML SYR SQ SCH (09:15)
[2023-02-20] MEDS: FEXOFENADINE HCL 180 MG TAB PO SCH (09:15)
[2023-02-20] MEDS: ASPIRIN 81 MG ECTAB PO SCH (09:15)
[2023-02-20] MEDS: POLYETHYLENE (MIRALAX) 17 GM PACK PO SCH (09:17)
[2023-02-20] MEDS: INSULIN ASPART PER UNIT CHARGE SC SCH ×2 (09:19→12:44)
[2023-02-20] MEDS: LANTUS PER UNIT CHARGE SC SCH (09:21)
--- NOTE | 2023-02-20 11:03 | Discharge Summary ---
Date of Service February 20, 2023 Admission HPI Per Admitting Provider Elza Vick is a 52 year old female who presents to the ER with left leg pain and weakness and fall yesterday. This is the same problem for which she was admitted in December however she reports it is getting significantly worse over the last week. Yesterday she called her PCP and recommended she goes to the ER for evaluation. While getting ready to come here she tripped on her carpet and took her till today to crawl to a phone to call for EMS to bring her in to hospital. She currently appears relatively comfortably in bed and having a conversation with me but reports severity 9/10 pain from her back radiating down her entire left leg. She denies any change in speech, vision or hearing. She underwent lumbar decompression surgery in October which helped her right leg symptoms but reports progressive worsening left leg symptoms since this time. She has had multiple lumbar spine MRIs since this time and was evaluated by her orthopedic surgeon with no plans on further surgery here but possible follow up at a tertiary care center. Principal Diagnosis Lower back pain Discharge Exam Constitutional WD/WN, vitals as above Eyes PERRL, conjunctivae normal, anicteric sclerae Respiratory normal respiratory effort, lungs clear to auscultation Cardiovascular RRR, no murmur, no edema Gastrointestinal (Abdomen) normal bowel sounds, soft, nontender, no hepatosplenomegaly Psychiatric A+Ox3, euthymic affect Discharge Data Allergies Allergy/AdvReac Type Severity Reaction Status Date / Time acetaminophen AdvReac Severe LIVER Verified 02/15/23 12:55 COMPLICATIONS cephalexin AdvReac Severe Vomiting Verified 02/15/23 12:55 levofloxacin [From Levaquin] AdvReac Intermediate Vomiting Verified 02/15/23 12:55 Consultations 02/12/23 12:18 ED Decision to Admit Stat Ordered Studies 02/12/23 11:07 CT head/brain wo con Stat CT lumbar spine wo con Stat 02/12/23 12:46 MR brain wo con Routine MR lumbar spine wo con Routine Hospital Course (1) Lumbar back pain with radiculopathy affecting left lower extremity: Pt is a 52 yo female with PMH of chronic low back pain s/p L3-L5 spinal fusion 10/2022, PE, uncontrolled DM, COPD, and depression/anxiety presenting due to increased back pain s/p fall. Update 02/18: [place] care declined yesterday. There was a misunderstanding between the healthcare team and patient as she thought maybe we could retry to apply for rehab; however, she will not qualify for SNF due to her improvement with PT. Plan was to go home with home health today but in light of pt's misunderstanding and mental state, she feels that one more day to get her pain more controlled and another session of PT would benefit her. Plan to discharge home tomorrow with home health when patient's friend comes to stay with her. Acute on chronic lumbar back pain - s/p fall at home - CT head neg; MRI brain neg - lumbar CT showed no acute fractures w/ intact hardware; lumbar MRI showed no significant change in L5-S1 disk protrusion from last MRI (12/25/2022) - suspect symptoms mostly related to muscular imbalance leading to weakness/pain - patient given script for PRN oxycodone 10mg for severe pain when her other medications fail. - PT/OT deemed pt safe to return home. She will return home with home health. (2) Uncontrolled type 2 diabetes mellitus: (3) Seizure disorder: (4) Ambulatory dysfunction: (5) Anxiety: Total Time Total Time Spent Total Time Spent (In Minutes): Please see attending attestation Discharge Plan Discharge Items Patient Disposition: Home - Home Health Services Reason For Visit: FAILURE TO THRIVE, FALL Discharge Diagnosis: generalized weakness/deconditioning, s/p fall, lower back pain Activity: Per Instructions section Non-emergency contact: Primary Care Provider Call non-emergency contact if: you have any medication questions, your symptoms worsen and your pain is not controlled Follow-up/Referrals: Aneudy Pérez MD [Primary Care Provider] - Diet: Carb Consistent or DM2 Addtl Attending Provider Instructions: You were admitted to the hospital for generalized weakness after a fall at home. You were treated with pain medications and you worked with physical therapy. While hospitalized, your pain was fairly well managed. Through physical therapy, you were able to get stronger than when you were admitted to the hospital. Home health services has been set up by case management. A discharge summary will be sent to your primary care physician to ensure continuity of care. Please bring this discharge summary with you to your next office appointment so that your provider can review it at that time. Medications: Your medication list has been reviewed and reconciled upon discharge to ensure accuracy and continuity of care. An updated list of all your medications is included with your hospital discharge paperwork. Please review this list closely and make note of any changes to your medications. - No changes were made to your home medications. You should continue oxycodone 1 0 mg every 4 hours as needed in addition to ibuprofen and flexeril. Follow up appointments: - Make a follow up appointment with your PCP within the next week. It is very important that you follow up with them shortly after discharge from the hospital. - Keep all of your follow up appointments as already scheduled. If you cannot make an appointment, notify your provider. CONTACT YOUR PRIMARY CARE PROVIDER if you experience any of the following: - Difficulty following your treatment plan - Difficulty taking any of your medications CALL 911 OR GO TO THE EMERGENCY DEPARTMENT if you experience any of the following: - Sudden, severe abdominal pain or nausea/vomiting - Severe chest pain or chest pain that radiates to your jaw or arm - Sudden, severe shortness of breath or difficulty breathing Pending Studies at Discharge: No Stand-Alone Forms: My [facility], Smoking Cessation Medications and DC Order Prescriptions: Continued cyclobenzaprine 10 mg Tablet 10 mg PO BID PRN (Reason: Muscle Spasm) Qty: 0 albuterol sulfate [Ventolin HFA] 90 mcg/actuation Hfa Aerosol Inhaler 2 puff INHALATION Q4H PRN (Reason: Shortness Of Breath Or Wheezing) Qty: 0 montelukast [Singulair] 10 mg tablet 10 mg PO HS clindamycin phosphate 1 % gel 1 applic topical DAILY PRN (Reason: Unknown) Humulin R U-500 (Conc) Kwikpen 500 unit/mL (3 mL) insulin pen 100 unit subcut TID Qty: 18 4RF Rx Instructions: Inject 100 units into the abdomen 3 times per day; injections should be 6-8 hours apart. fluticasone propion-salmeterol [AirDuo RespiClick] 232-14 mcg/actuation aerosol powdr breath activated 2 inh inhalation BID PRN (Reason: Shortness Of Breath) ibuprofen 800 mg tablet 800 mg PO TID PRN (Reason: Pain) promethazine 25 mg tablet 25 mg PO Q6H PRN (Reason: Nausea) aspirin 81 mg Tablet,Delayed Release (Dr/Ec) 81 mg PO QAM duloxetine 60 mg capsule,delayed release(DR/EC) 60 mg PO HS buspirone 5 mg tablet 5 mg PO QID nystatin [Nyamyc] 100,000 unit/gram powder 1 applic TOPICAL DIRECTED levetiracetam 1,000 mg tablet 1,000 mg PO BID 30 Days Qty: 60 0RF diclofenac sodium 1 % Gel 4 g TOPICAL QID PRN (Reason: Pain) albuterol sulfate 2.5 mg /3 mL (0.083 %) solution for nebulization 2.5 mg inhalation Q6 PRN (Reason: Wheezing) famotidine 40 mg tablet 40 mg PO BID pantoprazole 20 mg tablet,delayed release (DR/EC) 20 mg PO QAM lidocaine 5 % adhesive patch,medicated 1 patch transdermal DAILY PRN (Reason: Pain) fluticasone propionate [Flonase Allergy Relief] 50 mcg/actuation spray,suspension 1 spray INTRANASAL DAILY PRN (Reason: Congestion) trazodone 100 mg tablet 100 mg PO HS polyethylene glycol 3350 [Miralax] 17 gram/dose Powder 17 g PO BID gabapentin 800 mg tablet 800 mg PO TID ondansetron 4 mg tablet,disintegrating 4 mg PO Q6H PRN (Reason: nausea and vomiting) Qty: 12 0RF meloxicam 15 mg tablet 15 mg PO DAILY (DME) Bedside Commode Misc See Rx Instructions .Route Qty: 1 0RF Rx Instructions: As directed (DME) Shower Chair Misc See Rx Instructions .Route Qty: 1 0RF Rx Instructions: As directed (DME) insulin syringe-needle U-100 1/2 mL 32 gauge x 5/16" syringe See Rx Instructions .Route Qty: 100 1RF Rx Instructions: As directed Changed oxycodone 5 mg tablet 10 mg PO Q4H PRN (Reason: pain) Qty: 30 0RF Rx Instructions: 1 tab for moderate pain, 2 for severe pain Discharge Orders: Discharge Order (Routine); Ordered 02/20/23 Ordered By: Mike Canchola Admission Data Admit Date/Time: 02/15/23 17:02 Attending Provider: Mike Canchola Admit Provider: Mike Canchola Primary Care Provider: Aneudy Pérez Other Providers: [place] ; [facility] [place] ; [facility],Health ; [place],Care ; [facility],Home Healthcare Other Interventions: Discharge Summary Assessment (RN) Last Done: 02/20/23 11:49 Supervising Physician Co-Signing Physician Notes I personally examined the patient and verified all brennan points of history and exam, discussed case, and agree with decision making with Dr Caballero friend will be in town today - feels up to going home because she will have support system vitals noted sleeping nad heent nc at mmm breathing unlabored. Skin no rashes pallor or icterus. Weakness/deconditioning/biomechanical back pain/pelvic somatic dysfunctionPT/OT, would benefit from rehab but unfortunately we could not. home today. outpt PCP, PT, OMT otherwise as above, lovenox was used for DVT proph during her stay Resident Activity Tracking Resident Involvement: Resident Care Provided Care Provided: Adult Hospital Medicine
--- NOTE | 2023-02-20 16:48 | Billing Data ---
Date of Service February 20, 2023 Coding Level of Care Code 87970 IN/OBS DISCH 30 MIN/LESS
[2023-02-21] MEDS ORDERED: LANTUS PER UNIT CHARGE SC SCH (09:00)
== END 2023-02-20 14:34 | disposition home health service (06) ==
LOC: ED 10:59 → 3W 10:59 → SUATTDRO 12:26 → 3W 17:49

== ENCOUNTER 2023-03-03 14:56 | Observation (INO) ==
--- NOTE | 2023-03-03 15:36 | Emergency Department Note ---
Impression & Plan Weakness, Acute hyperglycemia, Seizure ED Provider Note NAME: MARCIO FERNANDEZ AGE: 52 SEX: F : 1970 ARRIVES VIA: Walk-In INFORMANT: Patient, ED PROVIDER(S): Ignacio Cunningham DO CHIEF COMPLAINT: Seizure HPI: The patient is a 52-year-old female who presented to the emergency department because she had 2 seizures yesterday. She states she does have a history of seizures. She states she has been compliant with her outpatient medications. She was told to come to the emergency department by her primary care physician as well as her insurance company to be placed in rehab. ROS: See above HPI for pertinent positives & negatives. A total of 10 systems reviewed and were otherwise negative. PAST MEDICAL HISTORY: See Below PAST SURGICAL HISTORY: See Below FAMILY HISTORY: See Below SOCIAL HISTORY: See Below HOME MEDICATIONS: See Below ALLERGIES: See Below VITALS: See Below PHYSICAL EXAMINATION: GENERAL: Patient is awake alert in no acute distress patient is resting comfortably and showing no signs of anxiety EYES: The conjunctivae are clear. The pupils are round and reactive. EARS, NOSE, MOUTH AND THROAT: The nose is without any evidence of any deformity. NECK: The neck is nontender and supple. RESPIRATORY: Normal respiratory effort is noted there is no evidence of wheezing rhonchi or rales CARDIOVASCULAR: Regular rate and rhythm noted there no murmurs rubs or gallops normal S1 normal S2. GASTROINTESTINAL: The abdomen is soft. Abdomen is nontender. MUSCULOSKELETAL/EXTREMITIES: There is no evidence of gross deformity full range of motion is noted in the hips and shoulders. SKIN: There is no obvious evidence of any rash. There are no petechiae, pallor or cyanosis noted. NEUROLOGIC: Patient is awake alert and oriented x3 strength is symmetric patellar reflexes are 2+ bilaterally MEDICAL DECISION MAKING: The patient is a 52-year-old female who presented to the emergency department for an evaluation of generalized weakness. The patient has a history of seizure disorder. She states that she had a seizure prior to coming to the emergency department last evening. She states that she had 2 seizures. She also states that she cannot care for herself at home. She came to the emergency department at the request of her primary care physician as well as her insurance company for possible admission for rehab. The patient was treated with IV fluids in the emergency department. She was also treated with IV insulin. She was reevaluate d multiple times. She was evaluated by the emergency department continuous pillowcase cutter. Because of the patient's comorbidities she was felt to be a better candidate for inpatient management. For this reason I discussed her condition with the on- call [facility] hospitalist. Triage Nursing notes reviewed. Prior medical records reviewed Vital Signs: reviewed and remarkable for no significant abnormalities Differential diagnosis: Epilepsy, infection, hypoglycemia, electrolyte abnormalities, cardiac sources, intracerebral event, trauma, toxicologic, neurologic, syncope, as well as other pathologies. ER treatment provided: See below Diagnostics interpreted by me: ECG: EKG was obtained in the emergency department. My interpretation is sinus tachycardia at 103 bpm. There is no ectopy. Poor R wave progression was noted. This was compared to a tracing from February 12, 2023. No changes were noted. Cardiac Monitoring: An order was placed for continuous cardiac monitoring. The monitor shows a rate of 92 bpm with sinus rhythm. Laboratory studies: As stated above and show below. Imaging studies: See below. Radiographic imaging was reviewed by myself Consultation(s): I discussed the patient's condition with Dr. Canchola who is on-call for the [facility] hospitalist group. Past Med/Surg History Medical History Ambulatory dysfunction Ankle swelling Anxiety Brain cyst Chronic generalized abdominal pain Chronic low back pain with left-sided sciatica Chronic obstructive pulmonary disease Depression Hypertension Hypokalemia Hypomagnesemia Hyponatremia Insulin dependent diabetes mellitus Left hand paresthesia Narcotic abuse Ongoing, documented by PCP since 2013 Neurogenic claudication due to lumbar spinal stenosis Obesity Opiate dependence Opioid abuse Periapical abscess with facial involvement Pulmonary embolism Reports was anticoagulation x 60 days, not on chronic anticoagulation Rash Syncope Thrombocytopenia Tinea corporis Tinea cruris Uncontrolled type 2 diabetes mellitus Surgical History History of laparoscopic cholecystectomy History of lumbar surgery Hx of oral surgery (02/15/20) Acute right submandibular, submental space infection with floor of mouth infection caused by infected lower teeth. Dr. Rios 02/15/20 S/P dilation and curettage S/P laparoscopic hernia repair S/P laparoscopic procedure ovarian cyst surgery Family History Mother , 73 Heart disease Cancer small cell ca lung caused at 73 Father Skin cancer Brother No problems noted. Sister No problems noted. Grandmother (Maternal) , 48 Heart disease T2DM (type 2 diabetes mellitus) Grandmother (Paternal) , 83 Heart disease Kidney disease Uncle T2DM (type 2 diabetes mellitus) Other Diabetes Obesity Denies family history of Ovarian cancer Breast cancer Colorectal cancer Uterine cancer Social History Smoking Status: Former smoker Tobacco Type: Cigarettes Cigarettes Per Day: 5; Second Hand Exposure: Yes; Do You Dip or Chew Tobacco: No; Hx Alcohol Use: No Hx Substance Use: No Preferred Language: Icelandic Communication Ability: Effective Visual Impairment: No Limitations Hearing Ability: Normal Welt Pocket Machine Operator Required: No Beliefs That Will Affect Care: None marital status: Current Living Situation: Alone Current Living Situation Comment: Lives with son (15yo) current occupational status: unemployed 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 How many Children do You have: 1 Feels Safe at Home: Yes Assistive Devices: Bedside Commode, Cane, Walker and Wheelchair Allergies Allergies Allergy/AdvReac Type Severity Reaction Status Date / Time acetaminophen AdvReac Severe LIVER Verified 02/15/23 12:55 COMPLICATIONS cephalexin AdvReac Severe Vomiting Verified 02/15/23 12:55 levofloxacin [From Levaquin] AdvReac Intermediate Vomiting Verified 02/15/23 12:55 Home Meds Home Medications Medication Instructions Recorded Confirmed cyclobenzaprine 10 mg tablet 10 mg PO BID PRN Muscle Spasm ##0 11/18/17 03/03/23 albuterol sulfate 90 mcg/actuation 2 puff inhalation Q4H PRN 02/10/18 03/03/23 aerosol inhaler (Ventolin HFA) Shortness Of Breath Or Wheezing ##0 ibuprofen 800 mg tablet 0 mg PO TID PRN Pain 10/24/19 03/03/23 promethazine 25 mg tablet 25 mg PO Q6H PRN Nausea 10/24/19 03/03/23 fluticasone 232 mcg-salmeterol 14 2 inh inhalation BID PRN Shortness 08/21/20 03/03/23 mcg/actuation breath activated Of Breath powdr (AirDuo RespiClick) montelukast 10 mg tablet 10 mg PO HS 09/01/20 03/03/23 (Singulair) aspirin 81 mg tablet,delayed 81 mg PO QAM 10/28/20 03/03/23 release diclofenac sodium 1 % topical gel 4 g topical QID PRN Pain 07/20/21 03/03/23 albuterol sulfate 2.5 mg/3 mL 2.5 mg inhalation Q6 PRN Wheezing 01/19/22 03/03/23 (0.083 %) solution for nebulization famotidine 40 mg tablet 40 mg PO BID 01/19/22 03/03/23 fluticasone propionate 50 1 spray intranasal DAILY PRN 01/19/22 03/03/23 mcg/actuation nasal Congestion spray,suspension (Flonase Allergy Relief) lidocaine 5 % topical patch 1 patch transdermal DAILY PRN Pain 01/19/22 03/03/23 pantoprazole 20 mg tablet,delayed 20 mg PO QAM 01/19/22 03/03/23 release polyethylene glycol 3350 17 17 g PO BID 01/29/22 03/03/23 gram/dose oral powder (Miralax) trazodone 100 mg tablet 100 mg PO HS 01/29/22 03/03/23 duloxetine 60 mg capsule,delayed 60 mg PO HS 03/12/22 03/03/23 release gabapentin 800 mg tablet 800 mg PO TID 04/05/22 03/03/23 buspirone 5 mg tablet 5 mg PO QID 07/30/22 03/03/23 nystatin 100,000 unit/gram topical 1 applic topical DIRECTED 10/12/22 03/03/23 powder ([facility]) meloxicam 15 mg tablet 15 mg PO DAILY 12/20/22 03/03/23 clindamycin phosphate 1 % topical 1 applic topical DAILY PRN Unknown 01/25/23 03/03/23 gel Previous Rx's Medication Instructions Recorded ondansetron 4 mg disintegrating 4 mg PO Q6H PRN nausea and 08/11/22 tablet vomiting #12 tabs levetiracetam 1,000 mg tablet 1,000 mg PO BID 30 days #60 tabs 12/11/22 Bedside Commode #1 ea 12/28/22 Shower Chair #1 ea 12/28/22 insulin syringe-needle U-100 1/2 #100 ea 12/29/22 mL 32 gauge x 5/16" insulin regular hum U-500 conc 500 100 unit (0.2 mL) subcut TID #18 mL 01/25/23 unit/mL(3 mL) subcut pen (Humulin R U-500 (Conc) Insulin Kwikpen) oxycodone 5 mg tablet 10 mg PO Q4H PRN pain #30 tabs 02/20/23 Results & Data (ED) Vital Signs Vital Signs - 24 hr 03/03/23 15:03 03/03/23 15:55 Temperature 36.7 C Temperature Source Temporal Artery Scan Pulse Rate 114 H 101 H Respiratory Rate 20 20 Respiratory Effort / Characteristics Non-Labored Spontaneous Respiratory Depth Normal Respiratory Pattern Regular Blood Pressure 158/101 H Blood Pressure Mean 120 Pulse Oximetry 95 95 Oxygen Delivery Method Room Air Room Air Sepsis Recent Fever Within 48 Hours No Sepsis New/Unexplained Change in Mental Status No Sepsis Action Taken by Nursing No Action Required Home Medications Current Medication List: was personally reviewed by me Laboratory Data Attestation: I reviewed the patient's lab results. 03/03/23 15:30 03/03/23 15:30 Lab Results 03/03/23 03/03/23 03/03/23 Range/Units 15:30 15:30 15:30 WBC 6.00 (4.8-10.8) K/ul RBC 4.98 (4.20-5.40) M/uL Hgb 15.3 (12.0-16.0) g/dl Hct 43.4 (37.0-47.0) % MCV 87.1 (80.0-100.0) fL MCH 30.7 (25.0-34.0) pg MCHC 35.3 (32.0-36.0) g/dL RDW Std Deviation 49.0 H (36.4-46.3) fL RDW Coeff of Kelli 15.4 H (11.5-14.5) % Plt Count 161 (130-400) K/uL MPV 11.7 (9.4-12.4) fL Immature Gran % (Auto) 0.3 % Neut % (Auto) 67.6 % Lymph % (Auto) 25.3 % [place] % (Auto) 5.3 % Eos % (Auto) 1.2 % Baso % (Auto) 0.3 % Neut # (Auto) 4.05 (1.40-6.50) K/uL Lymph # (Auto) 1.52 (1.2-3.4) K/uL [place] # (Auto) 0.32 (0.11-0.59) K/uL Eos # (Auto) 0.07 (0-0.50) K/uL Baso # (Auto) 0.02 (0-0.2) K/uL Immature Gran # (Auto) 0.02 (0.01-0.20) K/uL PT 11.6 (9.0-12.0) Seconds INR 1.1 (0.9-1.1) APTT 26.5 (21.0-31.0) Seconds PTT Ratio 0.9 Sodium 136 (136-145) mmol/L Potassium 3.8 (3.5-5.1) mmol/L Chloride 105 (98-107) mmol/L Carbon Dioxide 22 (21-32) mmol/L Anion Gap 9 (3-11) BUN 7 (6-23) mg/dl Creatinine 0.64 (0.6-1.2) mg/dl Est Cr Clr Drug Dosing 118.0 ml/min Est GFR ( Amer) 117.3 ml/min Est GFR (Non-Af Amer) 101.2 ml/min BUN/Creatinine Ratio 10.9 (10-20) Glucose 457 H* (70-99(Fasting)) mg/dl Calcium 9.7 (8.6-10.3) mg/dl Magnesium 1.8 (1.7-2.4) mg/dl Total Bilirubin 0.7 (0.2-1.0) mg/dl AST 20 (13-39) U/L ALT 26 (7-52) U/L Alkaline Phosphatase 143 H (34-104) U/L Total Creatine Kinase 119 (26-192) U/L Troponin I High Sens 4.4 (0-14) pg/ml Total Protein 7.8 (6.0-8.3) gm/dl Albumin 4.2 (3.4-5.0) gm/dl Globulin 3.6 (2.5-4.0) gm/dl Albumin/Globulin Ratio 1.2 (0.9-2) TSH (0.300-4.500) uIu/ml SARS-CoV-2, RNA, NAAT (NEGATIVE) 03/03/23 03/03/23 Range/Units 15:30 15:38 WBC (4.8-10.8) K/ul RBC (4.20-5.40) M/uL Hgb (12.0-16.0) g/dl Hct (37.0-47.0) % MCV (80.0-100.0) fL MCH (25.0-34.0) pg MCHC (32.0-36.0) g/dL RDW Std Deviation (36.4-46.3) fL RDW Coeff of Kelli (11.5-14.5) % Plt Count (130-400) K/uL MPV (9.4-12.4) fL Immature Gran % (Auto) % Neut % (Auto) % Lymph % (Auto) % [place] % (Auto) % Eos % (Auto) % Baso % (Auto) % Neut # (Auto) (1.40-6.50) K/uL Lymph # (Auto) (1.2-3.4) K/uL [place] # (Auto) (0.11-0.59) K/uL Eos # (Auto) (0-0.50) K/uL Baso # (Auto) (0-0.2) K/uL Immature Gran # (Auto) (0.01-0.20) K/uL PT (9.0-12.0) Seconds INR (0.9-1.1) APTT (21.0-31.0) Seconds PTT Ratio Sodium (136-145) mmol/L Potassium (3.5-5.1) mmol/L Chloride (98-107) mmol/L Carbon Dioxide (21-32) mmol/L Anion Gap (3-11) BUN (6-23) mg/dl Creatinine (0.6-1.2) mg/dl Est Cr Clr Drug Dosing ml/min Est GFR ( Amer) ml/min Est GFR (Non-Af Amer) ml/min BUN/Creatinine Ratio (10-20) Glucose (70-99(Fasting)) mg/dl Calcium (8.6-10.3) mg/dl Magnesium (1.7-2.4) mg/dl Total Bilirubin (0.2-1.0) mg/dl AST (13-39) U/L ALT (7-52) U/L Alkaline Phosphatase (34-104) U/L Total Creatine Kinase (26-192) U/L Troponin I High Sens (0-14) pg/ml Total Protein (6.0-8.3) gm/dl Albumin (3.4-5.0) gm/dl Globulin (2.5-4.0) gm/dl Albumin/Globulin Ratio (0.9-2) TSH 0.327 (0.300-4.500) uIu/ml SARS-CoV-2, RNA, NAAT NEGATIVE (NEGATIVE) Administered Medications Discontinued Medications Sodium Chloride (Nss 1000ml) 1,000 mls @ 999 mls/hr IV .Q1H1M YEN Stop: 03/03/23 16:45 Last Infusion: 03/03/23 17:10 Dose: 0 mls/hr Documented By: Admin: 03/03/23 16:00 Dose: 999 mls/hr Documented By: QGV Sodium Chloride (Nss 1000ml) 1,000 mls @ 999 mls/hr IV .Q1H1M ONE Stop: 03/03/23 17:27 Last Admin: 03/03/23 17:07 Dose: 999 mls/hr Documented By: QGV Insulin Human Regular (Novolin-R Insulin Per Unit Charge) 8 units IV NOW STA Stop: 03/03/23 16:28 Last Admin: 03/03/23 17:07 Dose: 8 units Documented By: QGV Co-signed By: [facility] Imaging Data Attestation: I personally reviewed and interpreted this imaging study as follows: My Impression: CT of the head was obtained in the emergency department. My interpretation is no intracranial hemorrhage, no mass effect, final report below Radiologist's Impression: Cervical Spine CT 03/03/23 15:31 CT OF THE CERVICAL SPINE WITHOUT CONTRAST CLINICAL HISTORY: Seizure. Evaluate for fracture. COMPARISON STUDY: CTA of the neck January 24, 2023. Cervical spine CT December 20, 2022. TECHNIQUE: Helical axial images of the cervical spine were obtained without IV contrast. Sagittal and coronal reconstructions were viewed. Automated exposure control was utilized for the study. A dose lowering technique was utilized adhering to the principles of ALARA. FINDINGS: Alignment of the cervical spine is anatomic. Vertebral body heights are maintained. No acute cervical spine fracture or subluxation is present. There is no prevertebral edema. Facet joints are intact. Loss of height of the superior endplates of T1 and T2 is chronic. This is unchanged from earlier exam. There are mild degenerative changes within the cervical spine. IMPRESSION: No acute cervical spine fracture or subluxation. ACT 112: Negative or not required by law. Electronically signed by: Dani Cardona M.D. 03/03/2023 4:28 PM Chest X-Ray 03/03/23 15:31 XR chest 1V portable HISTORY: weakness COMPARISON: Chest 02/12/2023. FINDINGS: The lungs are clear. Cardiac silhouette is normal in size. No pleural effusions. No pneumothorax. IMPRESSION: No acute process. ACT 112: Negative or not required by law. Electronically signed by: Luis F Mixon M.D. 03/03/2023 4:[address] 03/03/23 15:[address] DOSE: HISTORY: Seizure. Fall. TECHNIQUE: Multiaxial CT images of the head were performed without the use of intravenous contrast. Automated exposure control was utilized for this study. A dose lowering technique was utilized adhering to the principles of ALARA. Comparison: Head CT 02/12/2023. Findings: The paranasal sinuses and mastoid air cells are clear. The calvarium and skull base are intact. The ventricles and sulci are within normal limits. There is no mass, hematoma, midline shift, or acute infarct. Impression: No acute intracranial abnormality. ACT 112: Negative or not required by law. Electronically signed by: Luis F Mixon M.D. 03/03/2023 4:26 PM Discharge Plan Visit Data Chief Complaint: Seizure Stated Complaint: REF BY DOC,SEIZURES ED Provider: Ignacio Cunningham Discharge Problem: Weakness, Acute hyperglycemia, Seizure Patient Disposition: Being Evaluated by Hospitalist Forms Stand Alone Forms: My [facility] Prescriptions Prescriptions: No Action cyclobenzaprine 10 mg Tablet 10 mg PO BID PRN (Reason: Muscle Spasm) Qty: 0 albuterol sulfate [Ventolin HFA] 90 mcg/actuation Hfa Aerosol Inhaler 2 puff INHALATION Q4H PRN (Reason: Shortness Of Breath Or Wheezing) Qty: 0 montelukast [Singulair] 10 mg tablet 10 mg PO HS clindamycin phosphate 1 % gel 1 applic topical DAILY PRN (Reason: Unknown) Humulin R U-500 (Conc) Kwikpen 500 unit/mL (3 mL) insulin pen 100 unit subcut TID Qty: 18 4RF Rx Instructions: Inject 100 units into the abdomen 3 times per day; injections should be 6-8 hours apart. fluticasone propion-salmeterol [AirDuo RespiClick] 232-14 mcg/actuation aerosol powdr breath activated 2 inh inhalation BID PRN (Reason: Shortness Of Breath) ibuprofen 800 mg tablet 0 mg PO TID PRN (Reason: Pain) Patient Comments: Per PT she uses the meloxicam promethazine 25 mg tablet 25 mg PO Q6H PRN (Reason: Nausea) aspirin 81 mg Tablet,Delayed Release (Dr/Ec) 81 mg PO QAM duloxetine 60 mg capsule,delayed release(DR/EC) 60 mg PO HS buspirone 5 mg tablet 5 mg PO QID nystatin [Nyamyc] 100,000 unit/gram powder 1 applic TOPICAL DIRECTED levetiracetam 1,000 mg tablet 1,000 mg PO BID 30 Days Qty: 60 0RF diclofenac sodium 1 % Gel 4 g TOPICAL QID PRN (Reason: Pain) albuterol sulfate 2.5 mg /3 mL (0.083 %) solution for nebulization 2.5 mg inhalation Q6 PRN (Reason: Wheezing) famotidine 40 mg tablet 40 mg PO BID pantoprazole 20 mg tablet,delayed release (DR/EC) 20 mg PO QAM lidocaine 5 % adhesive patch,medicated 1 patch transdermal DAILY PRN (Reason: Pain) fluticasone propionate [Flonase Allergy Relief] 50 mcg/actuation spray,suspension 1 spray INTRANASAL DAILY PRN (Reason: Congestion) trazodone 100 mg tablet 100 mg PO HS polyethylene glycol 3350 [Miralax] 17 gram/dose Powder 17 g PO BID Patient Comments: Typically uses once a day gabapentin 800 mg tablet 800 mg PO TID ondansetron 4 mg tablet,disintegrating 4 mg PO Q6H PRN (Reason: nausea and vomiting) Qty: 12 0RF meloxicam 15 mg tablet 15 mg PO DAILY (DME) Bedside Commode Misc See Rx Instructions .Route Qty: 1 0RF Rx Instructions: As directed (DME) Shower Chair Misc See Rx Instructions .Route Qty: 1 0RF Rx Instructions: As directed (DME) insulin syringe-needle U-100 1/2 mL 32 gauge x 5/16" syringe See Rx Instructions .Route Qty: 100 1RF Rx Instructions: As directed oxycodone 5 mg tablet 10 mg PO Q4H PRN (Reason: pain) Qty: 30 0RF Patient Comments: Per pt she gets 10mg filled from pharmacy but when in the hospital she's given two 5mg Rx Instructions: 1 tab for moderate pain, 2 for severe pain Referrals Referrals: Aneudy Pérez MD [Primary Care Provider] -
[2023-03-03] MEDS ORDERED: SODIUM CHLORIDE 0.9% 1000ML 1,000 ML IV SCH (15:45)
[2023-03-03 15:56] LABS: Basophils # (auto) 0.02 K/uL (0-0.2); Basophils % (auto) 0.3 %; Eosinophils # (auto) 0.07 K/uL (0-0.50); Eosinophils % (auto) 1.2 %; Hematocrit (blood only) 43.4 % (37.0-47.0); Hemoglobin 15.3 g/dl (12.0-16.0); Immature Granulocytes # (auto) 0.02 K/uL (0.01-0.20); Immature Granulocytes % (auto) 0.3 %; Lymphocytes # (auto) 1.52 K/uL (1.2-3.4); Lymphocytes % (auto) 25.3 %; Mean Corpuscular Hemoglobin 30.7 pg (25.0-34.0); Mean Corpuscular Hgb Conc 35.3 g/dL (32.0-36.0); Mean Corpuscular Volume 87.1 fL (80.0-100.0); Mean Platelet Volume 11.7 fL (9.4-12.4); Monocytes # (auto) 0.32 K/uL (0.11-0.59); Monocytes % (auto) 5.3 %; Neutrophils # (auto) 4.05 K/uL (1.40-6.50); Neutrophils % (auto) 67.6 %; Platelet Count 161 K/uL (130-400); RDW Coefficient of Variation 15.4 % (11.5-14.5); Red Blood Count 4.98 M/uL (4.20-5.40)
[2023-03-03 16:19] LABS: Albumin Globulin Ratio 1.2 (0.9-2); Albumin Level 4.2 gm/dl (3.4-5.0); BUN Creatinine Ratio 10.9 (10-20); Bilirubin,Total 0.7 mg/dl (0.2-1.0); Calcium 9.7 mg/dl (8.6-10.3); Est GFR (African American) 117.3 ml/min; Est GFR (Non-African American) 101.2 ml/min; Globulin 3.6 gm/dl (2.5-4.0); Magnesium 1.8 mg/dl (1.7-2.4); Potassium 3.8 mmol/L (3.5-5.1); Total Protein 7.8 gm/dl (6.0-8.3); Troponin I High Sensitivity 4.4 pg/ml (0-14)
[2023-03-03 16:24] LABS: INR 1.1 (0.9-1.1); Partial Thromboplastin Ratio 0.9; Partial Thromboplastin Time 26.5 Seconds (21.0-31.0); Prothrombin Time 11.6 Seconds (9.0-12.0)
[2023-03-03] MEDS ORDERED: NovoLIN-R INSULIN PER UNIT CHARGE IV STA (16:27)
[2023-03-03] MEDS ORDERED: SODIUM CHLORIDE 0.9% 1000ML 1,000 ML IV ONE (16:27)
--- NOTE | 2023-03-03 16:27 | CT Scan Report ---
HEAD CT NONCONTRAST CT DOSE: HISTORY: Seizure. Fall. TECHNIQUE: Multiaxial CT images of the head were performed without the use of intravenous contrast. A utomated exposure control was utilized for this study. A dose lowering technique was utilized adheri ng to the principles of ALARA. Comparison: Head CT 02/12/2023. Findings: The paranasal sinuses and mastoid air cells are clear. The calvarium and skull base are int act. The ventricles and sulci are within normal limits. There is no mass, hematoma, midline shift, or acute infarct. Impression: No acute intracranial abnormality. ACT 112: Negative or not required by law. Electronically signed by: Luis F Mixon M.D. 03/03/2023 4:26 PM
--- NOTE | 2023-03-03 16:29 | CT Scan Report ---
CT OF THE CERVICAL SPINE WITHOUT CONTRAST CLINICAL HISTORY: Seizure. Evaluate for fracture. COMPARISON STUDY: CTA of the neck January 24, 2023. Cervical spine CT December 20, 2022. TECHNIQUE: Helical axial images of the cervical spine were obtained without IV contrast. Sagittal a nd coronal reconstructions were viewed. Automated exposure control was utilized for the study. A do se lowering technique was utilized adhering to the principles of ALARA. FINDINGS: Alignment of the cervical spine is anatomic. Vertebral body heights are maintained. No acut e cervical spine fracture or subluxation is present. There is no prevertebral edema. Facet joints are intact. Loss of height of the superior endplates of T1 and T2 is chronic. This is unchanged from ea rlier exam. There are mild degenerative changes within the cervical spine. IMPRESSION: No acute cervical spine fracture or subluxation. ACT 112: Negative or not required by law. Electronically signed by: Dani Cardona M.D. 03/03/2023 4:28 PM
--- NOTE | 2023-03-03 16:36 | XRay Report ---
XR chest 1V portable HISTORY: weakness COMPARISON: Chest 02/12/2023. FINDINGS: The lungs are clear. Cardiac silhouette is normal in size. No pleural effusions. No pneumot horax. IMPRESSION: No acute process. ACT 112: Negative or not required by law. Electronically signed by: Luis F Mixon M.D. 03/03/2023 4:34 PM
[2023-03-03] MEDS ORDERED: diazePAM 5 MG TABLET PO ONE (18:07)
--- NOTE | 2023-03-03 18:34 | History & Physical Report ---
Date of Service March 03, 2023 Assessment & Plan (1) Weakness: Plan: deconditioning + lumbar radiculopathy nothing appearing acute / worse - just not doing well. have taken care of her a number of time since surgery and essentially it appears that she's "just below the line" of being able to take care of herself, and therefore not able to "dig herself out" without outside intervention medical bed, PT/OT eval and treat, case management consult (and asked patient to also continue to call her insurance plating tank operator since they essentially promised him a rehab approval) (2) Seizure: Plan: known seizure disorder, no apparent injury or sequellae, CT head normal; agree stress related if it was a true seizure. could have been PNES given high stress and ongoing situation. continue home meds, continue home keppra (3) Lumbar back pain with radiculopathy affecting left lower extremity: Plan: home meds PT/OT valium for muscle relaxant voltaren gel piriformis region (4) Uncontrolled type 2 diabetes mellitus: Plan: bsg lantus/log titrate insulins as needed always struggles with home control (5) Anxiety: Plan: home meds, prn valium for muscle spasms will also help quell anxiety, although will not want to use for any intermediate term for this (6) DVT prophylaxis: Plan: xarelto low dose (7) Discharge planning issues: Plan: PT/OT eval and treat case management for rehab referral asked pt to call insurance daily to remind them they sent her here essentially with promise of rehab approval History of Present Illness Chief Complaint: weakness, failure to thrive at home Primary Care Provider: Aneudy Pérez MD seizure at home yesterday x2 - but notes that she thinks it was from stress/anxiety - no injuries and feels ok from that since LLE edema -venous doppler last week negative and nothing worse since. knee pain and has knee arthritis back pain persists - bad but similar to previous nothing new nothing worse when leaving hospital - got stomach bug and asked home PT to hold off since she didn't want to get them sick - but then she relates that the auth and then she couldn't get them to come back. not doing well at home. talked to insurance plating tank operator who told her to go to the ER and get admitted and they would approve rehab nothing otherwise acute Allergies Allergy/AdvReac Type Severity Reaction Status Date / Time acetaminophen AdvReac Severe LIVER Verified 02/15/23 12:55 COMPLICATIONS cephalexin AdvReac Severe Vomiting Verified 02/15/23 12:55 levofloxacin [From Levaquin] AdvReac Intermediate Vomiting Verified 02/15/23 12:55 Home Medications Medication Instructions Recorded Confirmed Type cyclobenzaprine 10 mg tablet 10 mg PO BID PRN Muscle Spasm ##0 11/18/17 03/03/23 History albuterol sulfate 90 mcg/actuation 2 puff inhalation Q4H PRN 02/10/18 03/03/23 History aerosol inhaler (Ventolin HFA) Shortness Of Breath Or Wheezing ##0 ibuprofen 800 mg tablet 0 mg PO TID PRN Pain 10/24/19 03/03/23 History promethazine 25 mg tablet 25 mg PO Q6H PRN Nausea 10/24/19 03/03/23 History fluticasone 232 mcg-salmeterol 14 2 inh inhalation BID PRN Shortness 08/21/20 03/03/23 History mcg/actuation breath activated Of Breath powdr (AirDuo RespiClick) montelukast 10 mg tablet 10 mg PO HS 09/01/20 03/03/23 History (Singulair) aspirin 81 mg tablet,delayed 81 mg PO QAM 10/28/20 03/03/23 History release diclofenac sodium 1 % topical gel 4 g topical QID PRN Pain 07/20/21 03/03/23 History albuterol sulfate 2.5 mg/3 mL 2.5 mg inhalation Q6 PRN Wheezing 01/19/22 03/03/23 History (0.083 %) solution for nebulization famotidine 40 mg tablet 40 mg PO BID 01/19/22 03/03/23 History fluticasone propionate 50 1 spray intranasal DAILY PRN 01/19/22 03/03/23 History mcg/actuation nasal Congestion spray,suspension (Flonase Allergy Relief) lidocaine 5 % topical patch 1 patch transdermal DAILY PRN Pain 01/19/22 03/03/23 History pantoprazole 20 mg tablet,delayed 20 mg PO QAM 01/19/22 03/03/23 History release polyethylene glycol 3350 17 17 g PO BID 01/29/22 03/03/23 History gram/dose oral powder (Miralax) trazodone 100 mg tablet 100 mg PO HS 01/29/22 03/03/23 History duloxetine 60 mg capsule,delayed 60 mg PO HS 03/12/22 03/03/23 History release gabapentin 800 mg tablet 800 mg PO TID 04/05/22 03/03/23 History buspirone 5 mg tablet 5 mg PO QID 07/30/22 03/03/23 History ondansetron 4 mg disintegrating 4 mg PO Q6H PRN nausea and 08/11/22 03/03/23 Rx tablet vomiting #12 tabs nystatin 100,000 unit/gram topical 1 applic topical DIRECTED 10/12/22 03/03/23 History powder (Nyamyc) levetiracetam 1,000 mg tablet 1,000 mg PO BID 30 days #60 tabs 12/11/22 03/03/23 Rx meloxicam 15 mg tablet 15 mg PO DAILY 12/20/22 03/03/23 History Bedside Commode #1 ea 12/28/22 01/25/23 Rx Shower Chair #1 ea 12/28/22 01/25/23 Rx insulin syringe-needle U-100 1/2 #100 ea 12/29/22 Rx mL 32 gauge x 5/16" clindamycin phosphate 1 % topical 1 applic topical DAILY PRN Unknown 01/25/23 03/03/23 History gel insulin regular hum U-500 conc 500 100 unit (0.2 mL) subcut TID #18 mL 01/25/23 03/03/23 Rx unit/mL(3 mL) subcut pen (Humulin R U-500 (Conc) Insulin Kwikpen) oxycodone 5 mg tablet 10 mg PO Q4H PRN pain #30 tabs 02/20/23 03/03/23 Rx Past Med/Surg History Medical History Ambulatory dysfunction Ankle swelling Anxiety Brain cyst Chronic generalized abdominal pain Chronic low back pain with left-sided sciatica Chronic obstructive pulmonary disease Depression Hypertension Hypokalemia Hypomagnesemia Hyponatremia Insulin dependent diabetes mellitus Left hand paresthesia Narcotic abuse Ongoing, documented by PCP since 2013 Neurogenic claudication due to lumbar spinal stenosis Obesity Opiate dependence Opioid abuse Periapical abscess with facial involvement Pulmonary embolism Reports was anticoagulation x 60 days, not on chronic anticoagulation Rash Syncope Thrombocytopenia Tinea corporis Tinea cruris Uncontrolled type 2 diabetes mellitus Surgical History History of laparoscopic cholecystectomy History of lumbar surgery Hx of oral surgery (02/15/20) Acute right submandibular, submental space infection with floor of mouth infection caused by infected lower teeth. Dr. Rios 02/15/20 S/P dilation and curettage S/P laparoscopic hernia repair S/P laparoscopic procedure ovarian cyst surgery Family History Mother , 73 Heart disease Cancer small cell ca lung caused at 73 Father Skin cancer Brother No problems noted. Sister No problems noted. Grandmother (Maternal) , 48 Heart disease T2DM (type 2 diabetes mellitus) Grandmother (Paternal) , 83 Heart disease Kidney disease Uncle T2DM (type 2 diabetes mellitus) Other Diabetes Obesity Denies family history of Ovarian cancer Breast cancer Colorectal cancer Uterine cancer Social History Smoking Status: Former smoker Tobacco Type: Cigarettes Cigarettes Per Day: 5; Second Hand Exposure: Yes; Do You Dip or Chew Tobacco: No; Hx Alcohol Use: No Hx Substance Use: No Preferred Language: Bengali Communication Ability: Effective Visual Impairment: No Limitations Hearing Ability: Normal Ticket Manager Required: No Beliefs That Will Affect Care: None marital status: Current Living Situation: Alone Current Living Situation Comment: Lives with son (15yo) current occupational status: unemployed 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 breathing unlabored no accessory muscles good effort skin no rashes no pallor or icterus neuro no focal deficits. LLE diminished joint space at knee and some asymmetric edema nontender even to deep palpation RLE soem small arthritic changes. Results & Data Results & Data Vital Signs (Past 12 Hours) Vital Signs Temp Pulse Resp BP Pulse Ox O2 Del Method 03/03/23 15:55 101 H 20 95 Room Air 03/03/23 15:03 98.1 F 114 H 20 158/101 H 95 Room Air Code Status & VTE Plan VTE Prophylaxis Plan VTE Prophylaxis will be ordered: Yes PG Care Time/CCT Total # of Minutes Spent Total Time Spent with Patient: Total time spent is greater than 50% in coordination of care (as documented) at patient's floor/unit and/or counseling patient: Coding Level of Care Code 76124 INT INP/OBS CARE 1/40MIN Diagnoses Weakness R53.1 Seizure R56.9 Lumbar back pain with radiculopathy affecting left lower extremity M54.16 Uncontrolled type 2 diabetes mellitus E11.65 Anxiety F41.9 DVT prophylaxis Z29.9 Discharge planning issues Z02.9
[2023-03-03] MEDS ORDERED: DICLOFENAC SOD 1% GEL 100 GM TUBE EXT PRN (20:01)
[2023-03-03] MEDS ORDERED: ACETAMINOPHEN 325 MG TAB PO PRN (20:01)
[2023-03-03] MEDS ORDERED: LANTUS PER UNIT CHARGE SQ ONE (20:01)
[2023-03-03] MEDS ORDERED: ONDANSETRON 4 MG OD TAB PO PRN (20:01)
[2023-03-03] MEDS ORDERED: MAGNESIUM HYDROXIDE SUSP 30 ML UDC PO PRN (20:01)
[2023-03-03] MEDS ORDERED: ALBUTEROL HFA 8 GM INHALER INH PRN (20:01)
[2023-03-03] MEDS ORDERED: PROMETHAZINE HCL 25 MG TAB PO PRN (20:01)
[2023-03-03] MEDS ORDERED: ALUMINUM/MAGNESIUM SUSP 30 ML UDC PO PRN (20:01)
[2023-03-03] MEDS ORDERED: NYSTATIN POWDER 15GM BTL EXT PRN (20:01)
[2023-03-03] MEDS ORDERED: LIDOCAINE 5% 1 PATCH TD PRN (20:01)
[2023-03-03] MEDS ORDERED: ALBUTEROL 0.083% NEBU SOLN 3 ML VIAL INH PRN (20:01)
[2023-03-03] MEDS ORDERED: oxyCODONE HCL IR 5 MG TAB (IMMEDIATE RELEASE) PO PRN (20:01)
[2023-03-03] MEDS ORDERED: FLUTICASONE PROPIONATE NA SPR 16 GM BTL NAE PRN (20:01)
[2023-03-03] MEDS: FLUTICASONE/VILANTEROL 200/25MCG 14 PUFFS/INHALER INH SCH (21:14)
[2023-03-03] MEDS: busPIRone 5 MG TAB PO SCH (21:15)
[2023-03-03] MEDS: GABAPENTIN 800 MG TAB PO SCH (21:15)
[2023-03-03] MEDS: traZODone HCL 100 MG TAB PO SCH (21:15)
[2023-03-03] MEDS: FAMOTIDINE 40 MG TABLET PO SCH (21:15)
[2023-03-03] MEDS: oxyCODONE HCL IR 5 MG TAB (IMMEDIATE RELEASE) PO PRN (21:15)
[2023-03-03] MEDS: DULoxetine HCL 60 MG CAP PO SCH (21:15)
[2023-03-03] MEDS: levETIRAcetam 500 MG TAB PO SCH (21:15)
[2023-03-03] MEDS: MONTELUKAST SODIUM 10 MG TABLET PO SCH (21:15)
[2023-03-03] MEDS: RIVAROXABAN 10 MG TABLET PO SCH (21:15)
[2023-03-03] MEDS: POLYETHYLENE (MIRALAX) 17 GM PACK PO SCH (21:28)
[2023-03-03] MEDS: INSULIN ASPART PER UNIT CHARGE SC SCH (21:52)
[2023-03-03] MEDS: IBUPROFEN 600 MG TAB PO PRN (21:54)
[2023-03-03] MEDS ORDERED: INSULIN ASPART PER UNIT CHARGE SC STA (23:07)
[2023-03-04] LABS: Appearance Urine Clear (Clear); Bacteria Urine Automated 1+ (Negative); Bilirubin Urine Negative (Negative); Blood Urine Trace (Negative); Cast Urine Automated 0 /lpf (0-5); Color Urine Yellow; Epithelial Cell Urine Auto >30 /lpf (0-5); Glucose Urine UA 3+ (Negative); Ketones Urine Negative (Negative); Leukocyte Esterase Urine Negative (Negative); Nitrite Urine Negative (Negative); Protein Urine 2+ (Negative); Specific Gravity Urine 1.042 (1.000-1.030); Urobilinogen Urine Positive (Negative); pH Urine 6.5 (4.5-7.5)
[2023-03-04 00:29] LABS: Amphetamines+Metham, Urine Neg (Neg); Barbiturates, Urine Neg (Neg); Benzodiazepine, Urine Pos (Neg); Cocaine, Urine Neg (Neg); MDMA (Ecstacy), Urine Neg (Neg); Methadone, Urine Neg (Neg); Opiate, Urine Neg (Neg); Phencyclidine, Urine Neg (Neg)
[2023-03-04] MEDS: diazePAM 5 MG TABLET PO PRN ×2 (00:41→20:03)
[2023-03-04 00:43] LABS: RBC Urine Automated 0-4 /hpf (0-4)
[2023-03-04] MEDS: oxyCODONE HCL IR 5 MG TAB (IMMEDIATE RELEASE) PO PRN ×5 (03:03→21:23)
--- NOTE | 2023-03-04 07:11 | Hospitalist Progress Note ---
Date of Service March 04, 2023 Assessment & Plan (1) Weakness: Plan: Deconditioning No significant acute changes/worsening Feels she is unable to care for herself at home at current level of functioning medical bed PT/OT eval and treat for likely rehab placement case management consult (and asked patient to also continue to call her insurance head athletic trainer since they essentially promised her a rehab approval) (2) Lumbar back pain with radiculopathy affecting left lower extremity: Plan: Pain control with PRN APAP, PRN Valium for pain/spasms Continue home duloxetine, gabapentin 800mg TID, PRN oxycodone 5-10mg q4h PT/OT Voltaren gel piriformis region (3) Seizure: Plan: Report of seizure x2 on day before admission in the setting of known seizure disorder No apparent injury or sequelae CT head normal Likely stress-related if it was a true seizure, but could have been PNES given high stress and ongoing situation Continue home keppra (4) Uncontrolled type 2 diabetes mellitus: Plan: BSG checks On regular insulin at home, struggles with control -- hold at this time Basal/bolus while admitted Titrate insulins as needed (5) Anxiety: Plan: Home meds -- Buspar, duloxetine, trazodone HS PRN valium for muscle spasms will also help quell anxiety, although will not want to use for any intermediate term for this (6) DVT prophylaxis: Plan: xarelto low dose (7) Discharge planning issues: Plan: PT/OT eval and treat case management for rehab referral asked pt to call insurance daily to remind them they sent her here essentially with promise of rehab approval Admission and Anticipated Discharge Date Admission Date: March 03, 2023 Supervising Physician Co-Signing Physician Notes I personally examined the patient and verified all brennan points of history and exam, discussed case, and agree with decision making with Dr Rasmussen No new complaints. Awaiting full PT/OT so that case management can submit. She did call her insurance head athletic trainer and they still say that they will approve rehab. Vitals noted, in general she is awake and alert pleasant no distress. HEENT normocephalic atraumatic mucous membranes moist. Breathing unlabored no accessory muscle use good effort. Skin shows no rashes no pallor or icterus. Glucoses noted Weakness/deconditioning/failure to thrivedue to overall deconditioning as well as biomechanical painhopefully for rehab this time. Insurance company sent her to the hospital essentially on the promise that they would approve rehab. Uncontrolled diabetescontinue to adjust insulins (Dr. Rasmussen consulted pharmacy for glycemic management) DVT proph - xarelto Subjective Seen at bedside this AM. No acute complaints. Reiterates that she feels her ultimate need is for rehabilitation so she can improve her ambulation and be able to be independent at home. Denies current pain, MCNULTY, dizziness, n/v, confusion, CP, palp, SOB, neuro deficits. Review of Systems Review of Systems: per HPI Physical Exam Physical Exam: GEN: aaox3 pleasant but anxious, nad HEENT: Normocephalic, atraumatic, mmm MSK: suboccipitals high tone/tender/decreased ROM - inhibitory pressure - some improvement. LLE diminished joint space at knee and some asymmetric edema nontender even to deep palpation RLE soem small arthritic changes. RESP: breathing unlabored, no accessory muscles good effort SKIN: no rashes, no pallor or icterus NEURO: no focal deficits. Results & Data Results & Data Vital Signs (Past 12 Hours) Vital Signs Temp Pulse Resp BP Pulse Ox O2 Del Method 03/03/23 21:00 37.0 C 84 18 142/91 H 99 Room Air 03/03/23 23:02 37.1 C 89 16 136/86 94 Room Air Resident Activity Tracking Resident Involvement: Resident Care Provided Care Provided: Adult Hospital Medicine
--- NOTE | 2023-03-04 07:51 | Electrocardiogram Report ---
Test Reason : Blood Pressure : / mmHG Vent. Rate : 103 BPM Atrial Rate : 103 BPM P-R Int : 156 ms QRS Dur : 084 ms QT Int : 368 ms P-R-T Axes : 031 -19 033 degrees QTc Int : 482 ms Sinus tachycardia Anterolateral infarct (cited on or before 12-FEB-2023) Abnormal ECG When compared with ECG of 12-FEB-2023 11:18, No significant change was found Confirmed by Brendan Thompson ([id number]) on 03/04/2023 7:50:30 AM Referred By: Confirmed By:Brendan Thompson
[2023-03-04] MEDS ORDERED: PANTOprazole 40 MG TAB PO SCH (09:00)
[2023-03-04] MEDS ORDERED: LANTUS PER UNIT CHARGE SQ SCH (09:00)
[2023-03-04] MEDS: busPIRone 5 MG TAB PO SCH ×4 (09:00→21:16)
[2023-03-04] MEDS: FAMOTIDINE 40 MG TABLET PO SCH ×2 (09:00→21:16)
[2023-03-04] MEDS: ASPIRIN 81 MG ECTAB PO SCH (09:00)
[2023-03-04] MEDS: GABAPENTIN 800 MG TAB PO SCH ×3 (09:01→21:16)
[2023-03-04] MEDS: POLYETHYLENE (MIRALAX) 17 GM PACK PO SCH ×2 (09:01→21:17)
[2023-03-04] MEDS: PANTOprazole 40 MG TAB PO SCH (09:01)
[2023-03-04] MEDS: levETIRAcetam 500 MG TAB PO SCH ×2 (09:01→21:16)
[2023-03-04] MEDS: FLUTICASONE/VILANTEROL 200/25MCG 14 PUFFS/INHALER INH SCH (09:02)
[2023-03-04] MEDS: INSULIN ASPART PER UNIT CHARGE SC SCH ×5 (09:08→23:40)
[2023-03-04] MEDS ORDERED: PHARMACY GLYCEMIC MGMT CONSULT PRN (15:15)
[2023-03-04] MEDS ORDERED: LANTUS PER UNIT CHARGE SQ ONE ×2 (15:30→22:00)
--- NOTE | 2023-03-04 16:19 | Billing Data ---
Date of Service March 04, 2023 Coding Level of Care Code 62119 SUB INP/OBS CARE
[2023-03-04] MEDS: RIVAROXABAN 10 MG TABLET PO SCH (21:16)
[2023-03-04] MEDS: DULoxetine HCL 60 MG CAP PO SCH (21:16)
[2023-03-04] MEDS: MONTELUKAST SODIUM 10 MG TABLET PO SCH (21:16)
[2023-03-04] MEDS: traZODone HCL 100 MG TAB PO SCH (21:17)
[2023-03-04] MEDS ORDERED: INSULIN ASPART PER UNIT CHARGE SC STA (22:08)
[2023-03-05] MEDS: oxyCODONE HCL IR 5 MG TAB (IMMEDIATE RELEASE) PO PRN ×6 (01:26→22:54)
[2023-03-05] MEDS: INSULIN ASPART PER UNIT CHARGE SC SCH ×5 (03:52→21:02)
--- NOTE | 2023-03-05 07:20 | Hospitalist Progress Note ---
Date of Service March 05, 2023 Assessment & Plan (1) Weakness: Plan: Deconditioning No significant acute changes/worsening Feels she is unable to care for herself at home at current level of functioning medical bed PT/OT eval and treat -- OT rec SNF; PT pending case management consult (and asked patient to also continue to call her insurance regional forester since they essentially promised her a rehab approval) Referrals sent by CM (2) Lumbar back pain with radiculopathy affecting left lower extremity: Plan: Pain control with PRN APAP, PRN Valium for pain/spasms Continue home duloxetine, gabapentin 800mg TID, PRN oxycodone 5-10mg q4h PT/OT Voltaren gel piriformis region (3) Seizure: Plan: Report of seizure x2 on day before admission in the setting of known seizure disorder No apparent injury or sequelae CT head normal Likely stress-related if it was a true seizure, but could have been PNES given high stress and ongoing situation Continue home keppra (4) Uncontrolled type 2 diabetes mellitus: Plan: BSG checks On regular insulin at home, struggles with control -- hold at this time Basal/bolus while admitted Titrate insulins as needed (5) Anxiety: Plan: Home meds -- Buspar, duloxetine, trazodone HS PRN valium for muscle spasms will also help quell anxiety, although will not want to use for any intermediate term for this (6) DVT prophylaxis: Plan: xarelto low dose (7) Discharge planning issues: Plan: PT/OT eval and treat case management for rehab referral -- referrals submitted asked pt to call insurance daily to remind them they sent her here essentially with promise of rehab approval Admission and Anticipated Discharge Date Admission Date: March 03, 2023 Supervising Physician Co-Signing Physician Notes I personally examined the patient and verified all brennan points of history and exam, discussed case, and agree with decision making with Dr Rasmussen Seen while working with PT. Discussed with case management who is skeptical that insurance will follow through with her promise and approve rehab, but obviously we are waiting on the PT assessment before we can submit. Patient tried to call her insurance again today to remind them that they were the ones who told her to come to the ER for approval for rehab, they appear to not be openat least on the regional forester sidefor the weekend. She was going to try again later. Vitals noted, in general she is awake and alert pleasant no distress. HEENT normocephalic atraumatic mucous membranes moist. Breathing unlabored no acce ssory muscle use good effort. Skin shows no rashes no pallor or icterus. Glucoses noted Weakness/deconditioning/failure to thrivedue to overall deconditioning as well as biomechanical painhopefully for rehab this time. Insurance company sent her to the hospital essentially on the promise that they would approve rehab. PT assessment now done, we will see if the insurance company keeps her problems. Uncontrolled diabetescontinue to adjust insulins (Dr. Rasmussen consulted pharmacy for glycemic management) DVT proph - xarelto Subjective Seen at bedside this AM. No acute complaints. Still eager to work with PT. OT saw yesterday. Denies current pain, MCNULTY, dizziness, n/v, confusion, CP, palp, SOB, neuro deficits. Review of Systems Review of Systems: per HPI Physical Exam Physical Exam: GEN: aaox3 pleasant but anxious, nad HEENT: Normocephalic, atraumatic, mmm MSK: suboccipitals high tone/tender/decreased ROM - inhibitory pressure - some improvement. LLE diminished joint space at knee and some asymmetric edema nontender even to deep palpation RLE soem small arthritic changes. RESP: breathing unlabored, no accessory muscles good effort SKIN: no rashes, no pallor or icterus NEURO: no focal deficits. Results & Data Results & Data Vital Signs (Past 12 Hours) Vital Signs Temp Pulse Resp BP Pulse Ox O2 Del Method 03/04/23 23:51 36.4 C L 87 16 95/65 L 96 Room Air 03/04/23 19:45 Room Air Resident Activity Tracking Resident Involvement: Resident Care Provided Care Provided: Adult Hospital Medicine
[2023-03-05] MEDS: FLUTICASONE/VILANTEROL 200/25MCG 14 PUFFS/INHALER INH SCH (08:34)
[2023-03-05] MEDS: ASPIRIN 81 MG ECTAB PO SCH (08:34)
[2023-03-05] MEDS: busPIRone 5 MG TAB PO SCH ×4 (08:34→20:52)
[2023-03-05] MEDS: PANTOprazole 40 MG TAB PO SCH (08:34)
[2023-03-05] MEDS: GABAPENTIN 800 MG TAB PO SCH ×3 (08:34→20:52)
[2023-03-05] MEDS: FAMOTIDINE 40 MG TABLET PO SCH ×2 (08:34→20:52)
[2023-03-05] MEDS: levETIRAcetam 500 MG TAB PO SCH ×2 (08:34→20:52)
[2023-03-05] MEDS: POLYETHYLENE (MIRALAX) 17 GM PACK PO SCH ×2 (08:35→20:53)
[2023-03-05] MEDS ORDERED: LANTUS PER UNIT CHARGE SQ SCH (09:00)
[2023-03-05] MEDS: LANTUS PER UNIT CHARGE SQ SCH (13:04)
--- NOTE | 2023-03-05 14:50 | Pharmacy Report ---
Pharmacy Glycemic Short Note 2 - Date of Service March 05, 2023 - Glycemic Short BSG Results (Last 24 hours): 03/04/23 03/04/23 03/04/23 15:26 16:54 20:35 POC Glucose 296 H 244 H 239 H 03/04/23 03/05/23 03/05/23 23:38 03:42 07:51 POC Glucose 160 H 92 145 H 03/05/23 11:48 POC Glucose 277 H OUTPATIENT ANTIDIABETIC REGIMEN: * u-500 - per previous records takes 25-50 units TID ASSESSMENT: * Patient admitted with seizure/weakness. Pharmacy consulted yesterday evening for glycemic management. * Patient received total of 124 units of insulin yesterday, of which 70 units were basal * Fasting BSG 145 mg/dL - will continue with 70 of basal for today. Lunch BSG trending up, tightened CF/CR PLAN FOR INPATIENT GLYCEMIC CONTROL: * Hold outpatient oral diabetes medications * Basal insulin * Lantus 70 units SQ daily * Bolus insulin * NovoLog per scale ACHS or Q6hrs while NPO * Goal Range: Low 110 mg/dL - High 140 mg/dL * Correction Factor: 12 mg/dL/unit * Nutritional / Prandial insulin per carb ratio of 1 unit per 4 grams CHO consumed
[2023-03-05] MEDS: diazePAM 5 MG TABLET PO PRN (14:53)
--- NOTE | 2023-03-05 16:00 | Billing Data ---
Date of Service March 05, 2023 Coding Level of Care Code 91835 SUB INP/OBS CARE
[2023-03-05] MEDS: traZODone HCL 100 MG TAB PO SCH (20:52)
[2023-03-05] MEDS: DULoxetine HCL 60 MG CAP PO SCH (20:52)
[2023-03-05] MEDS: RIVAROXABAN 10 MG TABLET PO SCH (20:52)
[2023-03-05] MEDS: MONTELUKAST SODIUM 10 MG TABLET PO SCH (20:52)
[2023-03-06] MEDS: diazePAM 5 MG TABLET PO PRN ×2 (03:00→19:51)
[2023-03-06] MEDS: oxyCODONE HCL IR 5 MG TAB (IMMEDIATE RELEASE) PO PRN ×5 (03:00→20:59)
--- NOTE | 2023-03-06 07:48 | Hospitalist Progress Note ---
Date of Service March 06, 2023 Assessment & Plan (1) Weakness: Plan: Deconditioning/weakness No significant acute changes/worsening Feels she is unable to care for herself at home at current level of functioning medical bed PT/OT eval and treat -- PT/OT recommending SNF Case management consult (and asked patient to also continue to call her insurance marine propulsion technician since they essentially promised her a rehab approval) Referrals sent by CM -- will need insurance auth (2) Lumbar back pain with radiculopathy affecting left lower extremity: Plan: Pain control with PRN APAP, PRN Valium for pain/spasms Continue home duloxetine, gabapentin 800mg TID, PRN oxycodone 5-10mg q4h PT/OT Voltaren gel piriformis region Complaining of spasms being worse and having good response with magnesium on last hospitalization Mag found to be 1.5 -- given mag sulfate 1g IV Check level in AM (3) Seizure: Plan: Report of seizure x2 on day before admission in the setting of known seizure disorder No apparent injury or sequelae CT head normal Likely stress-related if it was a true seizure, but could have been PNES given high stress and ongoing situation Continue home keppra (4) Uncontrolled type 2 diabetes mellitus: Plan: BSG checks On regular insulin at home, struggles with control -- hold at this time Basal/bolus while admitted Titrate insulins as needed Pharmacy glycemic consult (5) Anxiety: Plan: Home meds -- Buspar, duloxetine, trazodone HS PRN valium for muscle spasms will also help quell anxiety, although will not want to use for any intermediate term for this (6) DVT prophylaxis: Plan: xarelto low dose (7) Discharge planning issues: Plan: PT/OT eval and treat case management for rehab referral -- referrals submitted asked pt to call insurance daily to remind them they sent her here essentially with promise of rehab approval Admission and Anticipated Discharge Date Admission Date: March 03, 2023 Supervising Physician Co-Signing Physician Notes I personally examined the patient and verified all brennan points of history and exam, discussed case, and agree with decision making with Dr Rasmussen insurance apparently not open this weekend. no new complaints. Vitals noted, in general she is awake and alert pleasant no distress. HEENT normocephalic atraumatic mucous membranes moist. Breathing unlabored no accessory muscle use good effort. Skin shows no rashes no pallor or icterus. Glucoses noted, pharmacy glycemic management Weakness/deconditioning/failure to thrivedue to overall deconditioning as well as biomechanical painhopefully for rehab this time. she is clearly failing to thrive at home - i believe she is just below the functional capacity of being able to work her way back to independence and won't do well without rehab. Insurance company sent her to the hospital essentially on the promise that they would approve rehab. PT assessment now done, we will see if the insurance company keeps her problems. Uncontrolled diabetescontinue to adjust insulins pharmacy consulted for glycemic management) DVT proph - xarelto Subjective Seen at bedside. No acute complaints. At this time waiting on her insurance to approve -- she had mentioned her insurance liaison had assured her they would approve if recommended by PT/OT. Denies current pain, MCNULTY, dizziness, n/v, confusion, CP, palp, SOB, neuro deficits. Review of Systems Review of Systems: per HPI Physical Exam Physical Exam: GEN: aaox3 pleasant but anxious, nad HEENT: Normocephalic, atraumatic, mmm MSK: suboccipitals high tone/tender/decreased ROM - inhibitory pressure - some improvement. LLE diminished joint space at knee and some asymmetric edema nontender even to deep palpation RLE soem small arthritic changes. RESP: breathing unlabored, no accessory muscles good effort SKIN: no rashes, no pallor or icterus NEURO: no focal deficits. Results & Data Results & Data Vital Signs (Past 12 Hours) Vital Signs Temp Pulse Resp BP BP Pulse Ox O2 Del Method 03/06/23 07:40 36.9 C 74 16 92/61 L 96 Room Air 03/05/23 21:00 Room Air 03/05/23 20:27 36.7 C 85 18 113/76 95 Room Air Resident Activity Tracking Resident Involvement: Resident Care Provided Care Provided: Adult Hospital Medicine
[2023-03-06] MEDS: POLYETHYLENE (MIRALAX) 17 GM PACK PO SCH ×2 (07:52→21:03)
[2023-03-06] MEDS: ASPIRIN 81 MG ECTAB PO SCH (08:16)
[2023-03-06] MEDS: busPIRone 5 MG TAB PO SCH ×4 (08:17→21:02)
[2023-03-06] MEDS: levETIRAcetam 500 MG TAB PO SCH ×2 (08:17→21:02)
[2023-03-06] MEDS: PANTOprazole 40 MG TAB PO SCH (08:17)
[2023-03-06] MEDS: FAMOTIDINE 40 MG TABLET PO SCH ×2 (08:17→21:02)
[2023-03-06] MEDS: GABAPENTIN 800 MG TAB PO SCH ×3 (08:17→21:02)
[2023-03-06] MEDS: FLUTICASONE/VILANTEROL 200/25MCG 14 PUFFS/INHALER INH SCH (08:19)
[2023-03-06] MEDS: INSULIN ASPART PER UNIT CHARGE SC SCH ×4 (09:08→21:06)
[2023-03-06] MEDS: LANTUS PER UNIT CHARGE SQ SCH (09:19)
[2023-03-06 10:28] LABS: BUN Creatinine Ratio 22.4 (10-20); Calcium 8.9 mg/dl (8.6-10.3); Creatinine Clr Calc Pharmacy 116.2 ml/min; Est GFR (African American) 115.5 ml/min; Est GFR (Non-African American) 99.7 ml/min; Magnesium 1.5 mg/dl (1.7-2.4); Potassium 3.9 mmol/L (3.5-5.1)
[2023-03-06] MEDS ORDERED: MAGNESIUM SULFATE / D5W 1 GM/100 ML BAG IV ONE (10:30)
--- NOTE | 2023-03-06 16:19 | Billing Data ---
Date of Service March 06, 2023 Coding Level of Care Code 37869 SUB INP/OBS CARE
[2023-03-06] MEDS: RIVAROXABAN 10 MG TABLET PO SCH (21:00)
[2023-03-06] MEDS: DULoxetine HCL 60 MG CAP PO SCH (21:02)
[2023-03-06] MEDS: traZODone HCL 100 MG TAB PO SCH (21:03)
[2023-03-06] MEDS: MONTELUKAST SODIUM 10 MG TABLET PO SCH (21:03)
[2023-03-07] MEDS: oxyCODONE HCL IR 5 MG TAB (IMMEDIATE RELEASE) PO PRN ×6 (01:00→22:40)
[2023-03-07 06:41] LABS: BUN Creatinine Ratio 23.2 (10-20); Calcium 8.9 mg/dl (8.6-10.3); Est GFR (African American) 122.5 ml/min; Est GFR (Non-African American) 105.7 ml/min; Magnesium 1.6 mg/dl (1.7-2.4); Potassium 3.7 mmol/L (3.5-5.1)
[2023-03-07] MEDS: diazePAM 5 MG TABLET PO PRN ×2 (08:08→21:12)
[2023-03-07] MEDS: levETIRAcetam 500 MG TAB PO SCH ×2 (08:08→21:09)
[2023-03-07] MEDS: FLUTICASONE/VILANTEROL 200/25MCG 14 PUFFS/INHALER INH SCH (08:08)
[2023-03-07] MEDS: GABAPENTIN 800 MG TAB PO SCH ×3 (08:08→21:08)
[2023-03-07] MEDS: PANTOprazole 40 MG TAB PO SCH (08:08)
[2023-03-07] MEDS: FAMOTIDINE 40 MG TABLET PO SCH ×2 (08:08→21:09)
[2023-03-07] MEDS: ASPIRIN 81 MG ECTAB PO SCH (08:08)
[2023-03-07] MEDS: IBUPROFEN 600 MG TAB PO PRN (08:08)
[2023-03-07] MEDS: busPIRone 5 MG TAB PO SCH ×4 (08:08→21:08)
[2023-03-07] MEDS: POLYETHYLENE (MIRALAX) 17 GM PACK PO SCH ×2 (08:09→22:05)
[2023-03-07] MEDS: LANTUS PER UNIT CHARGE SQ SCH (09:08)
[2023-03-07] MEDS: INSULIN ASPART PER UNIT CHARGE SC SCH ×4 (09:08→21:21)
--- NOTE | 2023-03-07 11:04 | Hospitalist Progress Note ---
Date of Service March 07, 2023 Assessment & Plan (1) Weakness: Plan: Deconditioning/weakness No significant acute changes/worsening Feels she is unable to care for herself at home at current level of functioning medical bed PT/OT eval and treat -- PT/OT recommending SNF, awaiting placement Case management consult (and asked patient to also continue to call her insurance mental measurements teacher since they essentially promised her a rehab approval) Referrals sent by CM -- will need insurance auth, most likely won't hear anything until tomorrow given the holiday. (2) Lumbar back pain with radiculopathy affecting left lower extremity: Plan: Pain control with PRN APAP, PRN Valium for pain/spasms Continue home duloxetine, gabapentin 800mg TID, PRN oxycodone 5-10mg q4h PT/OT Voltaren gel piriformis region Complaining of spasms being worse and having good response with magnesium on last hospitalization Mag found to be 1.6-- given mag sulfate 1g IV Check level in AM (3) Seizure: Plan: Report of seizure x2 on day before admission in the setting of known seizure disorder No apparent injury or sequelae CT head normal Likely stress-related if it was a true seizure, but could have been PNES given high stress and ongoing situation Continue home keppra (4) Uncontrolled type 2 diabetes mellitus: Plan: BSG checks On regular insulin at home, struggles with control -- hold at this time Basal/bolus while admitted Titrate insulins as needed Pharmacy glycemic consult (5) Anxiety: Plan: Home meds -- Buspar, duloxetine, trazodone HS PRN valium for muscle spasms will also help quell anxiety, although will not want to use for any intermediate term for this (6) DVT prophylaxis: Plan: xarelto low dose (7) Discharge planning issues: Plan: PT/OT eval and treat case management for rehab referral -- referrals submitted asked pt to call insurance daily to remind them they sent her here essentially with promise of rehab approval Admission and Anticipated Discharge Date Admission Date: March 03, 2023 Supervising Physician Co-Signing Physician Notes I also saw the patient and discussed the case with the resident physician. Agree with the impression and plan as noted in the resident documentation. Patient without complaints this morning. Sleeping this early afternoon during reexamination Exam 114/67, 73, 16, 37.1, 97% on room air Respirations are nonlabored Heart regular Data No labs today Impression and plan Weakness/deconditioning/failure to thrive Insurance company had referred her to the hospital with the promise they would approve inpatient rehabilitation PT assessment completed; awaiting insurance authorization (holiday today, possibly tomorrow) Diabetes, uncontrolled Glycemic consult Additional per resident documentation Subjective Patient seen for this morning. No events reported overnight. Patient comfortable at this time and not having any bad pains at this time. Awaiting prior authorization for rehab. Patient to continue to call insurance to expedite authorization. No other complaints at this time. Review of Systems Review of Systems: per HPI Physical Exam Constitutional: WD/WN, vitals as above Eyes: + anicteric sclerae Neck: normal visual inspection Respiratory: normal respiratory effort, lungs clear to auscultation Cardiovascular: RRR, no murmur, no edema Gastrointestinal (Abdomen): Inspection/Auscultation: abdomen normal to inspection and normal bowel sounds Musculoskeletal: Head/Neck/Chest: normocephalic and head atraumatic Extremities: + abnormal strength Skin: no rashes, warm and dry Neurologic: moves all extremities Psychiatric: A+Ox3, euthymic affect Results & Data Results & Data Vital Signs (Past 12 Hours) Vital Signs Temp Pulse Resp BP Pulse Ox O2 Del Method 03/07/23 07:35 37.1 C 73 16 114/67 97 Room Air
[2023-03-07] MEDS: RIVAROXABAN 10 MG TABLET PO SCH (21:08)
[2023-03-07] MEDS: traZODone HCL 100 MG TAB PO SCH (21:08)
[2023-03-07] MEDS: MONTELUKAST SODIUM 10 MG TABLET PO SCH (21:09)
[2023-03-07] MEDS: DULoxetine HCL 60 MG CAP PO SCH (21:09)
[2023-03-07 23:08] LABS: 7-Aminoclonaz, Confirm NEGATIVE ng/mL (<25); Hydro-Alp Ur, GC/MS NEGATIVE ng/mL (<25); Hydroxyethylflurazepam, Conf NEGATIVE ng/mL (<50); Hydroxymidazolam Ur, GC/MS NEGATIVE ng/mL (<50); Hydroxytriazolam NEGATIVE ng/mL (<50); Lorazepam, Ur GC/MS NEGATIVE ng/mL (<50); Nordiazepam, Confirm 69 ng/mL (<50); Oxazepam Ur, GC/MS NEGATIVE ng/mL (<50); Temazepam, Confirm 95 ng/mL (<50)
[2023-03-08] MEDS: oxyCODONE HCL IR 5 MG TAB (IMMEDIATE RELEASE) PO PRN ×4 (05:33→18:42)
[2023-03-08] MEDS: FAMOTIDINE 40 MG TABLET PO SCH ×2 (08:12→21:39)
[2023-03-08] MEDS: ASPIRIN 81 MG ECTAB PO SCH (08:12)
[2023-03-08] MEDS: FLUTICASONE/VILANTEROL 200/25MCG 14 PUFFS/INHALER INH SCH (08:12)
[2023-03-08] MEDS: PANTOprazole 40 MG TAB PO SCH (08:12)
[2023-03-08] MEDS: levETIRAcetam 500 MG TAB PO SCH ×2 (08:12→21:41)
[2023-03-08] MEDS: GABAPENTIN 800 MG TAB PO SCH ×3 (08:12→21:42)
[2023-03-08] MEDS: busPIRone 5 MG TAB PO SCH ×4 (08:12→21:41)
[2023-03-08] MEDS: POLYETHYLENE (MIRALAX) 17 GM PACK PO SCH ×2 (08:13→22:48)
[2023-03-08] MEDS: diazePAM 5 MG TABLET PO PRN ×2 (08:16→21:36)
[2023-03-08] MEDS: INSULIN ASPART PER UNIT CHARGE SC SCH ×4 (08:18→21:37)
[2023-03-08] MEDS: LANTUS PER UNIT CHARGE SQ SCH (08:25)
[2023-03-08] MEDS ORDERED: LANTUS PER UNIT CHARGE SQ SCH (09:00)
[2023-03-08] MEDS ORDERED: LANTUS PER UNIT CHARGE SC ONE (09:15)
--- NOTE | 2023-03-08 12:19 | Pharmacy Report ---
Pharmacy Glycemic Short Note 2 - Date of Service March 08, 2023 - Glycemic Short BSG Results (Last 24 hours): 03/07/23 03/07/23 03/08/23 16:54 20:29 07:58 POC Glucose 86 126 H 177 H 03/08/23 11:53 POC Glucose 223 H OUTPATIENT ANTIDIABETIC REGIMEN: * u-500 - per previous records takes 25-50 units TID ASSESSMENT: 03/08: * BSGs [id number]/dL the last 24h. Pt received 80 units of basal and 57 units of bolus insulin yesterday. * Other stressors stable. * Basal titrated to 80 units this AM. Novolog intended to be tightened with breakfast, however order erroneously entered to start tomorrow AM (no breakfast coverage today). No change to Novolog parameters (09/12) for all other meals/bedtime. 03/05: * Patient admitted with seizure/weakness. Pharmacy consulted yesterday evening for glycemic management. * Patient received total of 124 units of insulin yesterday, of which 70 units were basal * Fasting BSG 145 mg/dL - will continue with 70 of basal for today. Lunch BSG trending up, tightened CF/CR PLAN FOR INPATIENT GLYCEMIC CONTROL: * Hold outpatient oral diabetes medications * Basal insulin * Lantus 80 units SQ daily * Bolus insulin * NovoLog per scale ACHS or Q6hrs while NPO * Goal Range: Low 110 mg/dL - High 140 mg/dL * Correction Factor: 10mg/dL/unit (breakfast), 12 mg/dL/unit (lunch, dinner, HS) * Nutritional / Prandial insulin per carb ratio of 1 unit per 3grams (breakfast), 4 grams CHO (lunch, dinner, HS) consumed
--- NOTE | 2023-03-08 17:40 | Hospitalist Progress Note ---
Date of Service March 08, 2023 Assessment & Plan (1) Weakness: Plan: Deconditioning/weakness No significant acute changes/worsening Feels she is unable to care for herself at home at current level of functioning medical bed PT/OT eval and treat -- PT/OT recommending SNF, awaiting placement Case management consult (and asked patient to also continue to call her insurance manager corporate strategy since they essentially promised her a rehab approval) Referrals sent by CM -- will need insurance auth (2) Lumbar back pain with radiculopathy affecting left lower extremity: Plan: Pain control with PRN APAP, PRN Valium for pain/spasms Continue home duloxetine, gabapentin 800mg TID, PRN oxycodone 5-10mg q4h PT/OT Voltaren gel piriformis region Complaining of spasms being worse and having good response with magnesium on last hospitalization Mag found to be 1.6-- given mag sulfate 1g IV Check level in AM (3) Seizure: Plan: Report of seizure x2 on day before admission in the setting of known seizure disorder No apparent injury or sequelae CT head normal Likely stress-related if it was a true seizure, but could have been PNES given high stress and ongoing situation Continue home keppra (4) Uncontrolled type 2 diabetes mellitus: Plan: BSG checks On regular insulin at home, struggles with control -- hold at this time Basal/bolus while admitted Titrate insulins as needed Pharmacy glycemic consult (5) Anxiety: Plan: Home meds -- Buspar, duloxetine, trazodone HS PRN valium for muscle spasms will also help quell anxiety, although will not want to use for any intermediate term for this (6) DVT prophylaxis: Plan: xarelto low dose (7) Discharge planning issues: Plan: PT/OT eval and treat case management for rehab referral -- referrals submitted asked pt to call insurance daily to remind them they sent her here essentially with promise of rehab approval Admission and Anticipated Discharge Date Admission Date: March 03, 2023 Subjective Patient seen at bedside this morning. No acute events reported overnight. Patient reports that she has a moderate amount of pain, however, she is due for pain medication approximately 30 minutes. She reports that it is tolerable and does not require any additional meds at this time; otherwise no new complaints. Review of Systems Review of Systems: All systems reviewed & are unremarkable except as noted in HPI & below Physical Exam Constitutional: WD/WN, vitals as above Eyes: + anicteric sclerae Neck: normal visual inspection Respiratory: normal respiratory effort, lungs clear to auscultation Cardiovascular: RRR, no murmur, no edema Gastrointestinal (Abdomen): Inspection/Auscultation: abdomen normal to inspection and normal bowel sounds Musculoskeletal: Head/Neck/Chest: normocephalic and head atraumatic Extremities: + abnormal strength Skin: no rashes, warm and dry Neurologic: moves all extremities Psychiatric: A+Ox3, euthymic affect Results & Data Results & Data Vital Signs (Past 12 Hours) Vital Signs Temp Pulse Resp BP Pulse Ox O2 Del Method 03/08/23 15:44 36.5 C 89 16 111/75 96 Room Air 03/08/23 08:15 Room Air 03/08/23 07:35 36.8 C 86 16 115/76 95 Room Air
[2023-03-08] MEDS: RIVAROXABAN 10 MG TABLET PO SCH (21:39)
[2023-03-08] MEDS: traZODone HCL 100 MG TAB PO SCH (21:40)
[2023-03-08] MEDS: DULoxetine HCL 60 MG CAP PO SCH (21:40)
[2023-03-08] MEDS: MONTELUKAST SODIUM 10 MG TABLET PO SCH (21:40)
[2023-03-09] MEDS: oxyCODONE HCL IR 5 MG TAB (IMMEDIATE RELEASE) PO PRN ×4 (00:41→17:36)
[2023-03-09] MEDS ORDERED: INSULIN ASPART PER UNIT CHARGE SC SCH (07:30)
[2023-03-09] MEDS ORDERED: LANTUS PER UNIT CHARGE SQ SCH (09:00)
[2023-03-09] MEDS: ASPIRIN 81 MG ECTAB PO SCH (09:14)
[2023-03-09] MEDS: GABAPENTIN 800 MG TAB PO SCH ×2 (09:14→13:21)
[2023-03-09] MEDS: levETIRAcetam 500 MG TAB PO SCH (09:14)
[2023-03-09] MEDS: FAMOTIDINE 40 MG TABLET PO SCH (09:14)
[2023-03-09] MEDS: PANTOprazole 40 MG TAB PO SCH (09:14)
[2023-03-09] MEDS: busPIRone 5 MG TAB PO SCH ×3 (09:14→17:36)
[2023-03-09] MEDS: FLUTICASONE/VILANTEROL 200/25MCG 14 PUFFS/INHALER INH SCH (09:15)
[2023-03-09] MEDS: POLYETHYLENE (MIRALAX) 17 GM PACK PO SCH (09:18)
[2023-03-09] MEDS: diazePAM 5 MG TABLET PO PRN (09:33)
[2023-03-09] MEDS: IBUPROFEN 600 MG TAB PO PRN (13:18)
[2023-03-09] MEDS: INSULIN ASPART PER UNIT CHARGE SC SCH (13:27)
--- NOTE | 2023-03-09 16:47 | Discharge Summary ---
Date of Service March 09, 2023 Admission HPI Per Admitting Provider seizure at home yesterday x2 - but notes that she thinks it was from stress/anxiety - no injuries and feels ok from that since LLE edema -venous doppler last week negative and nothing worse since. knee pain and has knee arthritis back pain persists - bad but similar to previous nothing new nothing worse when leaving hospital - got stomach bug and asked home PT to hold off since she didn't want to get them sick - but then she relates that the auth and then she couldn't get them to come back. not doing well at home. talked to insurance quarter trimmer who told her to go to the ER and get admitted and they would approve rehab nothing otherwise acute Principal Diagnosis Deconditioning Discharge Exam Constitutional WD/WN, vitals as above Eyes + anicteric sclerae Neck normal visual inspection Respiratory normal respiratory effort, lungs clear to auscultation Cardiovascular RRR, no murmur, no edema Gastrointestinal (Abdomen) Inspection/Auscultation: abdomen normal to inspection and normal bowel sounds Musculoskeletal Head/Neck/Chest: normocephalic and head atraumatic Extremities: + abnormal strength Skin no rashes, warm and dry Neurologic moves all extremities Psychiatric A+Ox3, euthymic affect Discharge Data Allergies Allergy/AdvReac Type Severity Reaction Status Date / Time acetaminophen AdvReac Severe LIVER Verified 02/15/23 12:55 COMPLICATIONS cephalexin AdvReac Severe Vomiting Verified 02/15/23 12:55 levofloxacin [From Levaquin] AdvReac Intermediate Vomiting Verified 02/15/23 12:55 Consultations 03/03/23 17:52 ED Decision to Admit Stat Ordered Studies 03/03/23 15:31 CT cervical spine wo con Stat CT head/brain wo con Stat Hospital Course (1) Weakness: Deconditioning/weakness Patient came to the hospital with a chief complaint of worsening deconditioning. She came here reportedly due to discussing her symptoms with her insurance company who felt that she would qualify for rehab. She was admitted to the hospital and evaluated by her physical therapist and occupational therapist who felt that acute rehab was not necessary and that she would fare well with home health services. Our case management coordinator did attempt to send an authorization to [employer], however, they did deny this authorization. For this reason, patient was discharged home and home health services were set up by case management. Patient to follow up with PCP within 1 week of discharge. (2) Lumbar back pain with radiculopathy affecting left lower extremity: Pain control with PRN APAP, PRN Valium (while in hospital) for pain/spasms Continue home duloxetine, gabapentin 800mg TID, PRN oxycodone 5-10mg q4h PT/OT recs as above Voltaren gel piriformis region Complaining of spasms being worse and having good response with magnesium on last hospitalization (3) Seizure: Report of seizure x2 on day before admission in the setting of known seizure disorder No apparent injury or sequelae CT head normal Likely stress-related if it was a true seizure, but could have been PNES given high stress and ongoing situation Continue home keppra (4) Uncontrolled type 2 diabetes mellitus: BSG checks On regular insulin at home, struggles with control, continue PCP management Basal/bolus while admitted with pharmacy consult (5) Anxiety: Home meds -- Buspar, duloxetine, trazodone HS Used valium for muscle spasm and axiety during stay but stopped on d/c (6) DVT prophylaxis: xarelto low dose while inpatient (7) Discharge planning issues: Total Time Total Time Spent Total Time Spent (In Minutes): 30 Discharge Plan Discharge Items Patient Disposition: Home - Home Health Services Reason For Visit: WEAKNESS, FAILIURE TO THRIVE Discharge Diagnosis: Weakness Activity: Per Instructions section Non-emergency contact: Primary Care Provider Call non-emergency contact if: you have any medication questions and your symptoms worsen Follow-up/Referrals: Aneudy Pérez MD [Primary Care Provider] - 03/17/23 10:25 am (WITH DR RACHAEL ABERNATHY) Diet: Carb Consistent or DM2 Addtl Attending Provider Instructions: You were seen in the hospital for the concern of deconditioning/weakness. You had come after calling your insurance company and has been told that he needed rehab. While you were here, you were admitted to the hospital under the supervision of the hospitalist team. You were evaluated by our physical therapist and occupational therapist who felt that you did not qualify for acute rehab. Our case management coordinator did attempt to run the prior authorization even without recommendation from PT and OT and unfortunately, [employer] did not run authorization because our PT and OT teams did not think rehab was necessary. For this reason, we worked with your case management coordinator to get you set up with home health services in order to get you physical therapy and improve your weakness. Please follow-up with your primary care provider within 1 week of discharge. It has been a pleasure to be a part of your care and we wish you the best in both your health and your recovery. Pending Studies at Discharge: No Stand-Alone Forms: My [facility] StudyTube, Pain - Opioid Pain Management, Smoking Cessation Medications and DC Order Prescriptions: Continued cyclobenzaprine 10 mg Tablet 10 mg PO BID PRN (Reason: Muscle Spasm) Qty: 0 albuterol sulfate [Ventolin HFA] 90 mcg/actuation Hfa Aerosol Inhaler 2 puff INHALATION Q4H PRN (Reason: Shortness Of Breath Or Wheezing) Qty: 0 montelukast [Singulair] 10 mg tablet 10 mg PO HS clindamycin phosphate 1 % gel 1 applic topical DAILY PRN (Reason: Unknown) Humulin R U-500 (Conc) Kwikpen 500 unit/mL (3 mL) insulin pen 100 unit subcut TID Qty: 18 4RF Rx Instructions: Inject 100 units into the abdomen 3 times per day; injections should be 6-8 hours apart. fluticasone propion-salmeterol [AirDuo RespiClick] 232-14 mcg/actuation aerosol powdr breath activated 2 inh inhalation BID PRN (Reason: Shortness Of Breath) ibuprofen 800 mg tablet 0 mg PO TID PRN (Reason: Pain) Patient Comments: Per PT she uses the meloxicam promethazine 25 mg tablet 25 mg PO Q6H PRN (Reason: Nausea) aspirin 81 mg Tablet,Delayed Release (Dr/Ec) 81 mg PO QAM duloxetine 60 mg capsule,delayed release(DR/EC) 60 mg PO HS buspirone 5 mg tablet 5 mg PO QID nystatin [Nyamyc] 100,000 unit/gram powder 1 applic TOPICAL DIRECTED levetiracetam 1,000 mg tablet 1,000 mg PO BID 30 Days Qty: 60 0RF diclofenac sodium 1 % Gel 4 g TOPICAL QID PRN (Reason: Pain) albuterol sulfate 2.5 mg /3 mL (0.083 %) solution for nebulization 2.5 mg inhalation Q6 PRN (Reason: Wheezing) famotidine 40 mg tablet 40 mg PO BID pantoprazole 20 mg tablet,delayed release (DR/EC) 20 mg PO QAM lidocaine 5 % adhesive patch,medicated 1 patch transdermal DAILY PRN (Reason: Pain) fluticasone propionate [Flonase Allergy Relief] 50 mcg/actuation spray,suspension 1 spray INTRANASAL DAILY PRN (Reason: Congestion) trazodone 100 mg tablet 100 mg PO HS polyethylene glycol 3350 [Miralax] 17 gram/dose Powder 17 g PO BID Patient Comments: Typically uses once a day gabapentin 800 mg tablet 800 mg PO TID ondansetron 4 mg tablet,disintegrating 4 mg PO Q6H PRN (Reason: nausea and vomiting) Qty: 12 0RF meloxicam 15 mg tablet 15 mg PO DAILY (DME) Bedside Commode Misc See Rx Instructions .Route Qty: 1 0RF Rx Instructions: As directed (DME) Shower Chair Misc See Rx Instructions .Route Qty: 1 0RF Rx Instructions: As directed (DME) insulin syringe-needle U-100 1/2 mL 32 gauge x 5/16" syringe See Rx Instructions .Route Qty: 100 1RF Rx Instructions: As directed oxycodone 5 mg tablet 10 mg PO Q4H PRN (Reason: pain) Qty: 30 0RF Patient Comments: Per pt she gets 10mg filled from pharmacy but when in the hospital she's given two 5mg Rx Instructions: 1 tab for moderate pain, 2 for severe pain Discharge Orders: Discharge Order (Routine); Ordered 03/09/23 Ordered By: Marvin Wan Admission Data Admit Date/Time: 03/03/23 18:16 Attending Provider: Savi Claire Admit Provider: Mike Canchola Primary Care Provider: Aneudy Pérez Other Providers: Mike Canchola ; [facility] ; [facility] ; Emery Nance ; [facility] Other Interventions: Discharge Summary Assessment (RN) Last Done: 03/09/23 17:10 Supervising Physician Co-Signing Physician Notes Resident Physician Supervision Note: I independently interviewed and examined the patient and verified the brennan history and physical, reviewed labs and image studies and agree with resident findings and care plan.
== END 2023-03-09 18:33 | disposition home health service (06) ==
LOC: ED 14:56 → EDINP 18:16 → SUATTDRO 18:16 → INTOOBSV 18:16 → 3W 20:00

== ENCOUNTER 2023-04-01 16:29 | Inpatient (IN) ==
[2023-04-01] MEDS ORDERED: ONDANSETRON INJ 2 MG/ML 2 ML VIAL IV STA (18:11)
[2023-04-01] MEDS ORDERED: SODIUM CHLORIDE 0.9% 1000ML 1,000 ML IV ONE (18:11)
[2023-04-01] MEDS ORDERED: KETOROLAC TROMETHAMINE 15 MG/ML VIAL IV ONE (18:11)
--- NOTE | 2023-04-01 18:17 | Emergency Department Note ---
Impression & Plan Hyperglycemia, Acute dehydration ED Provider Note INFORMANT: Patient ED PROVIDER(S): Benson Felix MD CHIEF COMPLAINT: Hyperglycemia and abdominal pain PLAN: Disposition: Admitted Condition: Good Outpatient prescription management: none Referral: None MEDICAL DECISION MAKING: Patient presented because of hyperglycemia. Blood sugar here was over 500. She also complained of mid abdominal pain. Patient underwent a work-up. She was hydrated. She was treated with IV insulin. Patient underwent CT imaging to further evaluate the cause of the abdominal pain. After CT imaging she came back and was feeling chest discomfort. An ECG was performed and did not reveal any acute ischemia. She was tachycardic and hypotensive. Patient did not have any hives or itching. On further questioning she noted years ago having a "reaction" after CT scan dye and was treated with Benadryl. Patient was given IV fluid hydration and her blood pressure normalized. Patient was given IV fentanyl for pain control. On reassessment she was feeling better and her symptoms resolved. Further management in the hospital will be necessary. Consultation was made with Dr. Benigno Pastor of the [facility] service. Patient was evaluated in the ER for further management. Discussed with complex human resources manager After review of the information above and other included data, I feel the patient requires admission. Triage Nursing notes reviewed and agree them. Vital Signs: reviewed and remarkable for no significant abnormalities Prior /Outside records reviewed: Prior admission reviewed. Differential diagnosis: Infection, dehydration, metabolic abnormality, hypo/hyperglycemia, electrolyte disturbance, anemia, hypoxia, cardiac sources, intracerebral event, toxicologic, neurologic, as well as other pathologies. Diagnostics, as interpreted by me: ECG: Twelve-lead ECG reveals sinus tachycardia at 133 bpm. Left axis deviation. Inferior Q wave and anterior Q waves present. No ST elevation. Cardiac Monitoring: Cardiac monitoring ordered by me: The patient was placed on continuous cardiac monitoring and observed. It revealed a sinus tachycardic rhythm at 116 beats per minute without ectopy or evidence of dysrhythmia. Medical decision rules: none Imaging studies: CT scan of the abdomen pelvis is negative for acute pathology. HPI: The patient is a 52 year old female with DM who presents to the Emergency Room with complaints of high blood sugar and mid abdominal. This started 6 days ago and is worsening. The patient also notes the following associated symptoms, poor appetite, cough, chills, MCNULTY, weakness. The patient has found no relieving factors. Current pain is rated as 8/10. Pt denies LOC, fevers, diaphoresis, visual changes, neck pain, chest pain, breathing difficulties, nausea, vomiting, new back pain, melena, hematochezia, urinary symptoms, numbness, lymphad enopathy, rash, or other complaints. PAST MEDICAL HISTORY: See Below, DM, chronic back PAST SURGICAL HISTORY: See Below, surgery SOCIAL HISTORY: See Below, quit smoking HOME MEDICATIONS: See Below ALLERGIES: See Below VITALS: See Below PHYSICAL EXAMINATION: GENERAL: Awake, alert, nontoxic-appearing, in no distress HENT: Normocephalic, atraumatic. Oropharynx unremarkable. EYES: Normal conjunctiva. Sclera non-icteric. NECK: Inspection normal. Non-tender. Supple. No nuchal rigidity. FROM. No masses. RESPIRATORY: Clear to auscultation. No wheezes. No rales. Normal respiratory effort. CARDIAC: Normal rate. Normal rhythm. No murmurs. No rubs. Extremities warm and well perfused. Pulses equal. No JVD. GI: Soft, non-distended. epigastric tenderness to palpation. No rebound or guarding. No masses. RECTAL: Deferred. MUSCULOSKELETAL: Atraumatic. Chest examination reveals no tenderness. The back is symmetrical on inspection without obvious abnormality. There is no CVA tenderness to palpation. No joint edema. LOWER EXTREMITIES: Calves are equal size bilaterally and non-tender. No edema. No discoloration. NEURO: Normal sensorium. No sensory or motor deficits noted. SKIN: No rash or jaundice noted. Past Med/Surg History Medical History Ambulatory dysfunction Ankle swelling Anxiety Brain cyst Chronic generalized abdominal pain Chronic low back pain with left-sided sciatica Chronic obstructive pulmonary disease Depression Hypertension Hypokalemia Hypomagnesemia Hyponatremia Insulin dependent diabetes mellitus Left hand paresthesia Narcotic abuse Ongoing, documented by PCP since 2013 Neurogenic claudication due to lumbar spinal stenosis Obesity Opiate dependence Opioid abuse Periapical abscess with facial involvement Pulmonary embolism Reports was anticoagulation x 60 days, not on chronic anticoagulation Rash Syncope Thrombocytopenia Tinea corporis Tinea cruris Uncontrolled type 2 diabetes mellitus Surgical History History of laparoscopic cholecystectomy History of lumbar surgery Hx of oral surgery (02/15/20) Acute right submandibular, submental space infection with floor of mouth infection caused by infected lower teeth. Dr. Rios 02/15/20 S/P dilation and curettage S/P laparoscopic hernia repair S/P laparoscopic procedure ovarian cyst surgery Family History Mother , 73 Heart disease Cancer small cell ca lung caused at 73 Father Skin cancer Brother No problems noted. Sister No problems noted. Grandmother (Maternal) , 48 Heart disease T2DM (type 2 diabetes mellitus) Grandmother (Paternal) , 83 Heart disease Kidney disease Uncle T2DM (type 2 diabetes mellitus) Other Diabetes Obesity Denies family history of Ovarian cancer Breast cancer Colorectal cancer Uterine cancer Social History Smoking Status: Never smoker Tobacco Type: Cigarettes Cigarettes Per Day: 5; Second Hand Exposure: No; Do You Dip or Chew Tobacco: No; Hx Alcohol Use: No Hx Substance Use: No Preferred Language: Finnish Communication Ability: Effective Visual Impairment: No Limitations Hearing Ability: Normal Cuff Runner Required: No Beliefs That Will Affect Care: None marital status: Current Living Situation: Alone Current Living Situation Comment: Lives with son (15yo) current occupational status: unemployed 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 How many Children do You have: 1 Feels Safe at Home: Yes Assistive Devices: Bedside Commode, Cane, Walker and Wheelchair Allergies Allergies Allergy/AdvReac Type Severity Reaction Status Date / Time acetaminophen AdvReac Severe LIVER Verified 03/14/23 21:10 COMPLICATIONS cephalexin AdvReac Severe Vomiting Verified 03/14/23 21:10 levofloxacin [From Levaquin] AdvReac Intermediate Vomiting Verified 03/14/23 21:10 Home Meds Home Medications Medication Instructions Recorded Confirmed cyclobenzaprine 10 mg tablet 10 mg PO BID PRN Muscle Spasm ##0 11/18/17 03/14/23 albuterol sulfate 90 mcg/actuation 2 puff inhalation Q4H PRN 02/10/18 03/14/23 aerosol inhaler (Ventolin HFA) Shortness Of Breath Or Wheezing ##0 ibuprofen 800 mg tablet 0 mg PO TID PRN Pain 10/24/19 03/14/23 promethazine 25 mg tablet 25 mg PO Q6H PRN Nausea 10/24/19 03/14/23 fluticasone 232 mcg-salmeterol 14 2 inh inhalation BID PRN Shortness 08/21/20 03/14/23 mcg/actuation breath activated Of Breath powdr (AirDuo RespiClick) montelukast 10 mg tablet 10 mg PO HS 09/01/20 03/14/23 (Singulair) aspirin 81 mg tablet,delayed 81 mg PO QAM 10/28/20 03/14/23 release diclofenac sodium 1 % topical gel 4 g topical QID PRN Pain 07/20/21 03/14/23 albuterol sulfate 2.5 mg/3 mL 2.5 mg inhalation Q6 PRN Wheezing 01/19/22 03/14/23 (0.083 %) solution for nebulization famotidine 40 mg tablet 40 mg PO BID 01/19/22 03/14/23 fluticasone propionate 50 1 spray intranasal DAILY PRN 01/19/22 03/14/23 mcg/actuation nasal Congestion spray,suspension (Flonase Allergy Relief) lidocaine 5 % topical patch 1 patch transdermal DAILY PRN Pain 01/19/22 03/14/23 pantoprazole 20 mg tablet,delayed 20 mg PO QAM 01/19/22 03/14/23 release polyethylene glycol 3350 17 17 g PO BID 01/29/22 03/14/23 gram/dose oral powder (Miralax) trazodone 100 mg tablet 100 mg PO HS 01/29/22 03/14/23 duloxetine 60 mg capsule,delayed 60 mg PO HS 03/12/22 03/14/23 release gabapentin 800 mg tablet 800 mg PO TID 04/05/22 03/14/23 buspirone 5 mg tablet 5 mg PO QID 07/30/22 03/14/23 nystatin 100,000 unit/gram topical 1 applic topical DIRECTED PRN 10/12/22 03/14/23 powder (Nyamyc) NEEDED meloxicam 15 mg tablet 15 mg PO DAILY 12/20/22 03/14/23 clindamycin phosphate 1 % topical 1 applic topical DAILY PRN Unknown 01/25/23 03/14/23 gel Previous Rx's Medication Instructions Recorded ondansetron 4 mg disintegrating 4 mg PO Q6H PRN nausea and 08/11/22 tablet vomiting #12 tabs levetiracetam 1,000 mg tablet 1,000 mg PO BID 30 days #60 tabs 12/11/22 Bedside Commode #1 ea 12/28/22 Shower Chair #1 ea 12/28/22 insulin syringe-needle U-100 1/2 #100 ea 12/29/22 mL 32 gauge x 5/16" oxycodone 5 mg tablet 10 mg PO Q4H PRN pain #30 tabs 02/20/23 oxycodone 20 mg tablet 10 mg PO BID PRN pain #14 tabs 03/09/23 insulin regular hum U-500 conc 500 50 unit (0.1 mL) subcut TID #18 mL 03/17/23 unit/mL(3 mL) subcut pen (Humulin R U-500 (Conc) Insulin Kwikpen) Results & Data (ED) Vital Signs Vital Signs - 24 hr 04/01/23 16:33 04/01/23 18:45 04/01/23 18:48 Temperature 36.5 C Temperature Source Temporal Artery Scan Pulse Rate 115 H 117 H Pulse Rate [Right Finger] 107 H Pulse Rate from SpO2 Sensor Pulse Rhythm [Right Finger] Regular Pulse Strength [Right Finger] Normal Respiratory Rate 20 18 Respiratory Effort / Characteristics Non-Labored Non-Labored Respiratory Depth Normal Respiratory Pattern Regular Blood Pressure 111/68 Blood Pressure [Right Arm] 132/89 Blood Pressure Mean 82 Blood Pressure Mean [Right Arm] 103 Blood Pressure Position [Right Arm] Lying Pulse Oximetry 98 98 Oxygen Delivery Method Room Air Room Air Sepsis Recent Fever Within 48 Hours No Sepsis New/Unexplained Change in Mental Status N/A Sepsis Action Taken by Nursing No Action Required 04/01/23 19:00 04/01/23 19:00 04/01/23 20:07 Temperature Temperature Source Pulse Rate 110 H 133 H Pulse Rate [Right Finger] Pulse Rate from SpO2 Sensor 110 H 133 H Pulse Rhythm [Right Finger] Pulse Strength [Right Finger] Respiratory Rate 17 18 Respiratory Effort / Characteristics Respiratory Depth Respiratory Pattern Blood Pressure 135/94 135/94 54/42 L Blood Pressure [Right Arm] Blood Pressure Mean 117 107 46 Blood Pressure Mean [Right Arm] Blood Pressure Position [Right Arm] Pulse Oximetry 99 97 Oxygen Delivery Method Room Air Room Air Sepsis Recent Fever Within 48 Hours Sepsis New/Unexplained Change in Mental Status Sepsis Action Taken by Nursing 04/01/23 20:13 04/01/23 20:19 04/01/23 20:26 Temperature Temperature Source Pulse Rate 130 H 132 H 132 H Pulse Rate [Right Finger] Pulse Rate from SpO2 Sensor 131 H 134 H 132 H Pulse Rhythm [Right Finger] Pulse Strength [Right Finger] Respiratory Rate 17 20 18 Respiratory Effort / Characteristics Respiratory Depth Respiratory Pattern Blood Pressure 64/33 L 90/46 L 76/65 L Blood Pressure [Right Arm] Blood Pressure Mean 43 60 68 Blood Pressure Mean [Right Arm] Blood Pressure Position [Right Arm] Pulse Oximetry 96 96 94 Oxygen Delivery Method Room Air Room Air Room Air Sepsis Recent Fever Within 48 Hours Sepsis New/Unexplained Change in Mental Status Sepsis Action Taken by Nursing 04/01/23 20:36 04/01/23 20:45 04/01/23 21:00 Temperature Temperature Source Pulse Rate 128 H 123 H 118 H Pulse Rate [Right Finger] Pulse Rate from SpO2 Sensor 129 H 120 H 111 H Pulse Rhythm [Right Finger] Pulse Strength [Right Finger] Respiratory Rate 17 17 19 Respiratory Effort / Characteristics Respiratory Depth Respiratory Pattern Blood Pressure 79/59 L 111/76 105/75 Blood Pressure [Right Arm] Blood Pressure Mean 65 87 85 Blood Pressure Mean [Right Arm] Blood Pressure Position [Right Arm] Pulse Oximetry 99 97 100 Oxygen Delivery Method Room Air Room Air Room Air Sepsis Recent Fever Within 48 Hours Sepsis New/Unexplained Change in Mental Status Sepsis Action Taken by Nursing 04/01/23 21:15 04/01/23 21:31 Temperature Temperature Source Pulse Rate 114 H 116 H Pulse Rate [Right Finger] Pulse Rate from SpO2 Sensor 114 H 116 H Pulse Rhythm [Right Finger] Pulse Strength [Right Finger] Respiratory Rate 15 19 Respiratory Effort / Characteristics Respiratory Depth Respiratory Pattern Blood Pressure 113/81 111/68 Blood Pressure [Right Arm] Blood Pressure Mean 91 82 Blood Pressure Mean [Right Arm] Blood Pressure Position [Right Arm] Pulse Oximetry 99 99 Oxygen Delivery Method Room Air Room Air Sepsis Recent Fever Within 48 Hours Sepsis New/Unexplained Change in Mental Status Sepsis Action Taken by Nursing Laboratory Data 04/01/23 18:21 04/01/23 18:21 Lab Results 04/01/23 04/01/23 04/01/23 Range/Units 18:11 18:21 18:21 WBC 7.39 (4.8-10.8) K/ul RBC 5.67 H (4.20-5.40) M/uL Hgb 17.9 H (12.0-16.0) g/dl Hct 50.0 H (37.0-47.0) % MCV 88.2 (80.0-100.0) fL MCH 31.6 (25.0-34.0) pg MCHC 35.8 (32.0-36.0) g/dL RDW Std Deviation 46.4 H (36.4-46.3) fL RDW Coeff of Kelli 14.5 (11.5-14.5) % Plt Count 174 (130-400) K/uL MPV 12.3 (9.4-12.4) fL Immature Gran % (Auto) 0.3 % Neut % (Auto) 56.0 % Lymph % (Auto) 35.2 % Pitt % (Auto) 6.2 % Eos % (Auto) 1.8 % Baso % (Auto) 0.5 % Neut # (Auto) 4.14 (1.40-6.50) K/uL Lymph # (Auto) 2.60 (1.2-3.4) K/uL Pitt # (Auto) 0.46 (0.11-0.59) K/uL Eos # (Auto) 0.13 (0-0.50) K/uL Baso # (Auto) 0.04 (0-0.2) K/uL Immature Gran # (Auto) 0.02 (0.01-0.20) K/uL Sodium 131 L (136-145) mmol/L Potassium 4.9 (3.5-5.1) mmol/L Chloride 97 L (98-107) mmol/L Carbon Dioxide 23 (21-32) mmol/L Anion Gap 11 (3-11) BUN 11 (6-23) mg/dl Creatinine 0.82 (0.6-1.2) mg/dl Est Cr Clr Drug Dosing 90.9 ml/min Est GFR ( Amer) 94.0 ml/min Est GFR (Non-Af Amer) 81.1 ml/min BUN/Creatinine Ratio 13.4 (10-20) Glucose 507 H* (70-99(Fasting)) mg/dl POC Glucose 546 H* (70-99) mg/dl Calcium 10.1 (8.6-10.3) mg/dl Magnesium 1.8 (1.7-2.4) mg/dl Total Bilirubin 1.3 H (0.2-1.0) mg/dl AST 36 (13-39) U/L ALT 29 (7-52) U/L Alkaline Phosphatase 184 H (34-104) U/L Total Protein 8.1 (6.0-8.3) gm/dl Albumin 4.3 (3.4-5.0) gm/dl Globulin 3.8 (2.5-4.0) gm/dl Albumin/Globulin Ratio 1.1 (0.9-2) Lipase 4 L (11-82) U/L SARS-CoV-2, RNA, NAAT (NEGATIVE) 04/01/23 04/01/23 04/01/23 Range/Units 18:32 19:49 20:48 WBC (4.8-10.8) K/ul RBC (4.20-5.40) M/uL Hgb (12.0-16.0) g/dl Hct (37.0-47.0) % MCV (80.0-100.0) fL MCH (25.0-34.0) pg MCHC (32.0-36.0) g/dL RDW Std Deviation (36.4-46.3) fL RDW Coeff of Kelli (11.5-14.5) % Plt Count (130-400) K/uL MPV (9.4-12.4) fL Immature Gran % (Auto) % Neut % (Auto) % Lymph % (Auto) % Pitt % (Auto) % Eos % (Auto) % Baso % (Auto) % Neut # (Auto) (1.40-6.50) K/uL Lymph # (Auto) (1.2-3.4) K/uL Pitt # (Auto) (0.11-0.59) K/uL Eos # (Auto) (0-0.50) K/uL Baso # (Auto) (0-0.2) K/uL Immature Gran # (Auto) (0.01-0.20) K/uL Sodium (136-145) mmol/L Potassium (3.5-5.1) mmol/L Chloride (98-107) mmol/L Carbon Dioxide (21-32) mmol/L Anion Gap (3-11) BUN (6-23) mg/dl Creatinine (0.6-1.2) mg/dl Est Cr Clr Drug Dosing ml/min Est GFR ( Amer) ml/min Est GFR (Non-Af Amer) ml/min BUN/Creatinine Ratio (10-20) Glucose (70-99(Fasting)) mg/dl POC Glucose 504 H* 399 H* (70-99) mg/dl Calcium (8.6-10.3) mg/dl Magnesium (1.7-2.4) mg/dl Total Bilirubin (0.2-1.0) mg/dl AST (13-39) U/L ALT (7-52) U/L Alkaline Phosphatase (34-104) U/L Total Protein (6.0-8.3) gm/dl Albumin (3.4-5.0) gm/dl Globulin (2.5-4.0) gm/dl Albumin/Globulin Ratio (0.9-2) Lipase (11-82) U/L SARS-CoV-2, RNA, NAAT NEGATIVE (NEGATIVE) Administered Medications Insulin Aspart (Insulin Aspart Per Unit Charge) 0 units SC 0000,0400 YEN Stop: 04/02/23 04:01 Last Admin: 04/02/23 01:00 Dose: 7 units Documented By: FIORDALIZA Co-signed By: [place] Insulin Glargine (Lantus Per Unit Charge) 8 units SQ BID YEN Stop: 05/01/23 22:14 Last Admin: 04/01/23 22:56 Dose: 8 units Documented By: LULA Co-signed By: Oxycodone HCl (Oxycodone Hcl Ir 5 Mg Tab (Immediate Release)) 10 mg PO Q4H PRN PRN Reason: pain Stop: 04/15/23 23:56 Last Admin: 04/02/23 01:00 Dose: 10 mg Documented By: DMM Discontinued Medications Fentanyl Citrate (Fentanyl Citrate Pf 100 Mcg/2 Ml Vial) 25 mcg IV NOW STA Stop: 04/01/23 20:15 Last Admin: 04/01/23 20:21 Dose: 25 mcg Documented By: Sodium Chloride (Nss 1000ml) 1,000 mls @ 999 mls/hr IV .Q1H1M ONE Stop: 04/01/23 19:11 Last Infusion: 04/01/23 20:30 Dose: 0 mls/hr Documented By: Admin: 04/01/23 18:40 Dose: 999 mls/hr Documented By: CORIE Sodium Chloride (Nss 1000ml) 500 mls @ 999 mls/hr IV .Q31M ONE Stop: 04/01/23 20:33 Last Infusion: 04/01/23 21:56 Dose: 0 mls/hr Documented By: Admin: 04/01/23 20:22 Dose: 999 mls/hr Documented By: Insulin Human Regular (Novolin-R Insulin Per Unit Charge) 10 units IV NOW STA Stop: 04/01/23 19:20 Last Admin: 04/01/23 19:50 Dose: 10 units Documented By: LULA Co-signed By: Ioversol (Optiray 320 100ml) 94 ml IV ONCE ONE Stop: 04/01/23 20:00 Last Admin: 04/01/23 19:59 Dose: 94 ml Documented By: TARI Ketorolac Tromethamine (Ketorolac Tromethamine 15 Mg/Ml Vial) 15 mg IV NOW ONE Stop: 04/01/23 18:12 Last Admin: 04/01/23 18:40 Dose: 15 mg Documented By: CORIE Ondansetron HCl (Ondansetron Inj 2 Mg/Ml 2 Ml Vial) 4 mg IV NOW STA Stop: 04/01/23 18:12 Last Admin: 04/01/23 18:40 Dose: 4 mg Documented By: CORIE Trazodone HCl (Trazodone Hcl 100 Mg Tab) 100 mg PO ONE ONE Stop: 04/02/23 00:50 Last Admin: 04/02/23 01:10 Dose: 100 mg Documented By: FIORDALIZA Imaging Data Radiologist's Impression: Abdomen/Pelvis CT 04/01/23 18:11 Exam(s): CT ABDOMEN + PELVIS With Contrast IV Amt: 94ml EXAM: CT Abdomen and Pelvis With Intravenous Contrast CLINICAL HISTORY: Reason for exam: mid abd pain, high blood sugar. Prior nisha. TECHNIQUE: Axial computed tomography images of the abdomen and pelvis with intravenous contrast. CTDI is 26.3 mGy and DLP is 1461.2 mGy-cm. Automated exposure control was utilized for the study. A dose lowering technique was utilized adhering to the principles of ALARA. Metal artifact from hardware in the lower lumbar spine again noted. CONTRAST: Patient received 94ml of IV contrast COMPARISON: CT abdomen pelvis 03/14/23. FINDINGS: Lung bases: Clear. Mild cardiomegaly and minimal hiatal hernia are stable. Liver: Fatty and/or cirrhosis, stable. Gallbladder and bile ducts: Stable cholecystectomy. No ductal dilation. Pancreas: No ductal dilation. Spleen: Unremarkable. Adrenals: Unremarkable. No mass. Kidneys and ureters: No pyelonephritis or hydronephrosis. Stomach and bowel: Moderate fecal loading of the colon. No diverticulosis or diverticulitis. No obstruction. Appendix: Intraperitoneal space: No free air or fluid. Bones/joints: Bilateral pedicle screws L3, L4, L5 with disc prosthesis L3-4 and L4-5. No acute fracture. Soft tissues: Unremarkable. Vasculature: Mild atherosclerosis. No abdominal aortic aneurysm. Lymph nodes: No enlarged lymph nodes. Bladder: No stones. Reproductive: IUD in good position, stable. IMPRESSION: 1. No acute abnormality, and no change. 2. Incidental cardiomegaly, fatty/cirrhotic liver, cholecystectomy, postoperative change of the lumbar spine, IUD in good position and moderate fecal loading of the colon appears stable. Electronically signed by: Chelo Siegel M.D. 04/01/23 20:30 PM Discharge Plan Visit Data Chief Complaint: Referred by Doctor Stated Complaint: REF BY DOC,DIABETIC, NO APPETITE ED Provider: Benson Felix Discharge Problem: Hyperglycemia, Acute dehydration Patient Disposition: Admitted As Inpatient Discharge Instructions Interventions: ED Discharge Assessment Last Done: 04/01/23 23:15
[2023-04-01 19:08] LABS: Albumin Globulin Ratio 1.1 (0.9-2); Albumin Level 4.3 gm/dl (3.4-5.0); BUN Creatinine Ratio 13.4 (10-20); Bilirubin,Total 1.3 mg/dl (0.2-1.0); Calcium 10.1 mg/dl (8.6-10.3); Creatinine Clr Calc Pharmacy 90.9 ml/min; Est GFR (Non-African American) 81.1 ml/min; Globulin 3.8 gm/dl (2.5-4.0); Magnesium 1.8 mg/dl (1.7-2.4); Total Protein 8.1 gm/dl (6.0-8.3)
[2023-04-01] MEDS ORDERED: NovoLIN-R INSULIN PER UNIT CHARGE IV STA (19:19)
[2023-04-01 19:21] LABS: Potassium 4.9 mmol/L (3.5-5.1)
[2023-04-01 19:47] LABS: Basophils # (auto) 0.04 K/uL (0-0.2); Basophils % (auto) 0.5 %; Eosinophils # (auto) 0.13 K/uL (0-0.50); Eosinophils % (auto) 1.8 %; Hemoglobin 17.9 g/dl (12.0-16.0); Immature Granulocytes # (auto) 0.02 K/uL (0.01-0.20); Immature Granulocytes % (auto) 0.3 %; Lymphocytes % (auto) 35.2 %; Mean Corpuscular Hemoglobin 31.6 pg (25.0-34.0); Mean Corpuscular Hgb Conc 35.8 g/dL (32.0-36.0); Mean Corpuscular Volume 88.2 fL (80.0-100.0); Mean Platelet Volume 12.3 fL (9.4-12.4); Monocytes # (auto) 0.46 K/uL (0.11-0.59); Monocytes % (auto) 6.2 %; Neutrophils # (auto) 4.14 K/uL (1.40-6.50); Platelet Count 174 K/uL (130-400); RDW Coefficient of Variation 14.5 % (11.5-14.5); RDW Standard Deviation 46.4 fL (36.4-46.3); Red Blood Count 5.67 M/uL (4.20-5.40); White Blood Count 7.39 K/ul (4.8-10.8)
[2023-04-01] MEDS ORDERED: OPTIRAY 320 100ml IV ONE (19:59)
[2023-04-01] MEDS ORDERED: SODIUM CHLORIDE 0.9% 1000ML 500 ML IV ONE (20:03)
[2023-04-01] MEDS ORDERED: fentaNYL citrate PF 100 MCG/2 ML VIAL IV STA (20:14)
--- NOTE | 2023-04-01 20:31 | CT Scan Report ---
Exam(s): CT ABDOMEN + PELVIS With Contrast IV Amt: 94ml EXAM: CT Abdomen and Pelvis With Intravenous Contrast CLINICAL HISTORY: Reason for exam: mid abd pain, high blood sugar. Prior nisha. TECHNIQUE: Axial computed tomography images of the abdomen and pelvis with intravenous contrast. CTDI is 26.3 mGy and DLP is 1461.2 mGy-cm. Automated exposure control was utilized for the study. A dose lowering technique was utilized adhering to the principles of ALARA. Metal artifact from hardware in the lower lumbar spine again noted. CONTRAST: Patient received 94ml of IV contrast COMPARISON: CT abdomen pelvis 03/14/23. FINDINGS: Lung bases: Clear. Mild cardiomegaly and minimal hiatal hernia are stable. Liver: Fatty and/or cirrhosis, stable. Gallbladder and bile ducts: Stable cholecystectomy. No ductal dilation. Pancreas: No ductal dilation. Spleen: Unremarkable. Adrenals: Unremarkable. No mass. Kidneys and ureters: No pyelonephritis or hydronephrosis. Stomach and bowel: Moderate fecal loading of the colon. No diverticulosis or diverticulitis. No obstruction. Appendix: Intraperitoneal space: No free air or fluid. Bones/joints: Bilateral pedicle screws L3, L4, L5 with disc prosthesis L3-4 and L4-5. No acute fracture. Soft tissues: Unremarkable. Vasculature: Mild atherosclerosis. No abdominal aortic aneurysm. Lymph nodes: No enlarged lymph nodes. Bladder: No stones. Reproductive: IUD in good position, stable. IMPRESSION: 1. No acute abnormality, and no change. 2. Incidental cardiomegaly, fatty/cirrhotic liver, cholecystectomy, postoperative change of the lumbar spine, IUD in good position and moderate fecal loading of the colon appears stable. Electronically signed by: Chelo Siegel M.D. 04/01/23 20:30 PM
[2023-04-01] MEDS ORDERED: CARBOHYDRATES FOR HYPOGLYCEMIA PO PRN (22:07)
[2023-04-01] MEDS ORDERED: DEXTROSE 50% 50 ML SYRINGE IV PRN (22:07)
[2023-04-01] MEDS ORDERED: GLUCAGON FOR INJ 1 MG VIAL SQ PRN (22:07)
[2023-04-01] MEDS ORDERED: GLUCOSE 10 TAB/TUBE PO PRN (22:07)
[2023-04-01] MEDS ORDERED: GLUCOSE 40% GEL 15 GM TUBE PO PRN (22:07)
--- NOTE | 2023-04-01 22:10 | History & Physical Report ---
Date of Service April 01, 2023 Assessment & Plan (1) Hyperglycemia: Plan: 52yo Female with PMH DM2, chronic low back pain, seizures, COPD, cirrhosis, HTN, morbid obesity, opioid dependence sent to ED by PCP for concern hyperglycemia. Hyperglycemia with DM2 -received 10U insulin in ED -Received 1.5L IVF in ED -CT A/P : Incidental cardiomegaly, fatty/cirrhotic liver, cholecystectomy, postoperative change of the lumbar spine, IUD in good position and moderate fecal loading of the colon appears stable. -glucose 546--> 399 -anion gap 11 -ordered BSG checks ACHS -lantus 8U BID, SSI -trend bmp Tachycardia -likely 2/2 back pain, anxiety, hyperglycemia -admit to med/tele -sinus tachycardia on EKG Chronic low back pain -received fentanyl and toradol in ED -continue home pain regime meloxicam 15mg daily PRN lidocaine patch PRN voltaren gel Gabapentin 800mg TID oxycodone 10mg q4hr PRN -can add flexeril if needed Depression Anxiety -continue home regime: buspar 5mg QID duloxetine 60mg HS trazodone 100mg hs GERD -continue pepcid, protonix Seizures -continue keppra 1000mg BID COPD -continue montelukast 10mg hs -PRN albuterol FENa: carb consistent Code Status: full DVT PPX: SCDs PT/OT: ordered Dispo: med/tele Danetet Miller D.O. PGY 2, FCM (2) Chronic low back pain: (3) Seizure: (4) Uncontrolled type 2 diabetes mellitus: (5) Opiate dependence: (6) Anxiety: (7) Depression: History of Present Illness Chief Complaint: Hyperglycemia Primary Care Provider: Aneudy Pérez MD 52yo Female with PMH DM2, chronic low back pain, seizures, COPD, cirrhosis, HTN, morbid obesity, opioid dependence sent to ED by PCP for concern hyperglycemia. Patient states in the last week she has poor appetite, noted her BP and HR were elevated. She states she has been taking her daily medication, none have changed since her last admission, last medication taken was this morning. Denies nausea, SOB, fever. Has ongoing LLQ abd pain that she relates to a history of hernias. Has some chest pain that she feels is non-cardiac related. Patient states she had a bad reaction to the contrast from her CT earlier today. At this time she has not been seeing PT at home. Patient requests to be placed on the [place] service upon admission. Allergies Allergy/AdvReac Type Severity Reaction Status Date / Time Iodinated Contrast Media Allergy Severe Anaphylaxis Verified 04/02/23 10:41 acetaminophen AdvReac Severe LIVER Verified 03/14/23 21:10 COMPLICATIONS cephalexin AdvReac Severe Vomiting Verified 03/14/23 21:10 levofloxacin [From Levaquin] AdvReac Intermediate Vomiting Verified 03/14/23 21:10 Home Medications Medication Instructions Recorded Confirmed Type cyclobenzaprine 10 mg tablet 10 mg PO BID PRN Muscle Spasm ##0 11/18/17 03/14/23 History albuterol sulfate 90 mcg/actuation 2 puff inhalation Q4H PRN 02/10/18 03/14/23 History aerosol inhaler (Ventolin HFA) Shortness Of Breath Or Wheezing ##0 ibuprofen 800 mg tablet 0 mg PO TID PRN Pain 10/24/19 03/14/23 History promethazine 25 mg tablet 25 mg PO Q6H PRN Nausea 10/24/19 03/14/23 History fluticasone 232 mcg-salmeterol 14 2 inh inhalation BID PRN Shortness 08/21/20 03/14/23 History mcg/actuation breath activated Of Breath powdr (AirDuo RespiClick) montelukast 10 mg tablet 10 mg PO HS 09/01/20 03/14/23 History (Singulair) aspirin 81 mg tablet,delayed 81 mg PO QAM 10/28/20 03/14/23 History release diclofenac sodium 1 % topical gel 4 g topical QID PRN Pain 07/20/21 03/14/23 History albuterol sulfate 2.5 mg/3 mL 2.5 mg inhalation Q6 PRN Wheezing 01/19/22 03/14/23 History (0.083 %) solution for nebulization famotidine 40 mg tablet 40 mg PO BID 01/19/22 03/14/23 History fluticasone propionate 50 1 spray intranasal DAILY PRN 01/19/22 03/14/23 History mcg/actuation nasal Congestion spray,suspension (Flonase Allergy Relief) lidocaine 5 % topical patch 1 patch transdermal DAILY PRN Pain 01/19/22 03/14/23 History pantoprazole 20 mg tablet,delayed 20 mg PO QAM 01/19/22 03/14/23 History release polyethylene glycol 3350 17 17 g PO BID 01/29/22 03/14/23 History gram/dose oral powder (Miralax) trazodone 100 mg tablet 100 mg PO HS 01/29/22 03/14/23 History duloxetine 60 mg capsule,delayed 60 mg PO HS 03/12/22 03/14/23 History release gabapentin 800 mg tablet 800 mg PO TID 04/05/22 03/14/23 History buspirone 5 mg tablet 5 mg PO QID 07/30/22 03/14/23 History ondansetron 4 mg disintegrating 4 mg PO Q6H PRN nausea and 08/11/22 03/14/23 Rx tablet vomiting #12 tabs nystatin 100,000 unit/gram topical 1 applic topical DIRECTED PRN 10/12/22 03/14/23 History powder (Nyamyc) NEEDED levetiracetam 1,000 mg tablet 1,000 mg PO BID 30 days #60 tabs 12/11/22 03/14/23 Rx meloxicam 15 mg tablet 15 mg PO DAILY 12/20/22 03/14/23 History Bedside Commode #1 ea 12/28/22 01/25/23 Rx Shower Chair #1 ea 12/28/22 01/25/23 Rx insulin syringe-needle U-100 2 #100 ea 12/29/22 Rx mL 32 gauge x 5/16" clindamycin phosphate 1 % topical 1 applic topical DAILY PRN Unknown 01/25/23 03/14/23 History gel oxycodone 5 mg tablet 10 mg PO Q4H PRN pain #30 tabs 02/20/23 03/14/23 Rx oxycodone 20 mg tablet 10 mg PO BID PRN pain #14 tabs 03/09/23 03/14/23 Rx insulin regular hum U-500 conc 500 50 unit (0.1 mL) subcut TID #18 mL 03/17/23 Rx unit/mL(3 mL) subcut pen (Humulin R U-500 (Conc) Insulin Kwikpen) Past Med/Surg History Medical History Ambulatory dysfunction Ankle swelling Anxiety Brain cyst Chronic generalized abdominal pain Chronic low back pain with left-sided sciatica Chronic obstructive pulmonary disease Depression Hypertension Hypokalemia Hypomagnesemia Hyponatremia Insulin dependent diabetes mellitus Left hand paresthesia Narcotic abuse Ongoing, documented by PCP since 2013 Neurogenic claudication due to lumbar spinal stenosis Obesity Opiate dependence Opioid abuse Periapical abscess with facial involvement Pulmonary embolism Reports was anticoagulation x 60 days, not on chronic anticoagulation Rash Syncope Thrombocytopenia Tinea corporis Tinea cruris Uncontrolled type 2 diabetes mellitus Surgical History History of laparoscopic cholecystectomy History of lumbar surgery Hx of oral surgery (02/15/20) Acute right submandibular, submental space infection with floor of mouth infection caused by infected lower teeth. Dr. Rios 02/15/20 S/P dilation and curettage S/P laparoscopic hernia repair S/P laparoscopic procedure ovarian cyst surgery Family History Mother , 73 Heart disease Cancer small cell ca lung caused at 73 Father Skin cancer Brother No problems noted. Sister No problems noted. Grandmother (Maternal) , 48 Heart disease T2DM (type 2 diabetes mellitus) Grandmother (Paternal) , 83 Heart disease Kidney disease Uncle T2DM (type 2 diabetes mellitus) Other Diabetes Obesity Denies family history of Ovarian cancer Breast cancer Colorectal cancer Uterine cancer Social History Smoking Status: Never smoker Tobacco Type: Cigarettes Cigarettes Per Day: 5; Second Hand Exposure: No; Do You Dip or Chew Tobacco: No; Tobacco Cessation Education Requested by Patient: No Hx Alcohol Use: No Hx Substance Use: No Preferred Language: Upper Sorbian Communication Ability: Effective Visual Impairment: No Limitations Hearing Ability: Normal Social Insurance Adviser Required: No Beliefs That Will Affect Care: None marital status: Current Living Situation: Alone Current Living Situation Comment: Lives with son (15yo) current occupational status: unemployed 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 How many Children do You have: 1 Other Information That Helps Us Care for You: No Feels Safe at Home: Yes Safety Concerns: Feels Safe At This Time Assistive Devices: Bedside Commode, Walker and Wheelchair Assistive Devices Comment: uses walker or WC depending on pain level Physical Exam Constitutional: well developed, well nourished, + morbidly obese, cooperative and comfortable Eyes: PERRL, conjunctivae normal, anicteric sclerae ENMT: external ear and nose normal, oropharynx normal Neck: trachea midline, no thyromegaly Respiratory: normal respiratory effort, lungs clear to auscultation Cardiovascular: Rate/Rhythm: regular rhythm and + tachycardic Gastrointestinal (Abdomen): Inspection/Auscultation: abdomen normal to inspection Percussion/Palpation: + abdomen tender (LLQ) and abdomen soft Skin: no rashes, warm and dry Results & Data Results & Data Vital Signs (Past 12 Hours) Vital Signs Temp Pulse Pulse Resp BP BP Pulse Ox 04/01/23 21:15 114 H 15 113/81 99 04/01/23 21:00 118 H 19 105/75 100 04/01/23 20:45 123 H 17 111/76 97 04/01/23 20:36 128 H 17 79/59 L 99 04/01/23 20:26 132 H 18 76/65 L 94 04/01/23 20:19 132 H 20 90/46 L 96 04/01/23 20:13 130 H 17 64/33 L 96 04/01/23 20:07 133 H 18 54/42 L 97 04/01/23 19:00 110 H 17 135/94 99 04/01/23 19:00 135/94 04/01/23 18:48 117 H 04/01/23 18:45 107 H 18 132/89 98 04/01/23 16:33 36.5 C 115 H 20 111/68 98 O2 Del Method 04/01/23 21:15 Room Air 04/01/23 21:00 Room Air 04/01/23 20:45 Room Air 04/01/23 20:36 Room Air 04/01/23 20:26 Room Air 04/01/23 20:19 Room Air 04/01/23 20:13 Room Air 04/01/23 20:07 Room Air 04/01/23 19:00 Room Air 04/01/23 19:00 04/01/23 18:48 04/01/23 18:45 Room Air 04/01/23 16:33 Room Air Supervising Physician Co-Signing Physician Notes Attending addendum: I have physically seen this patient, have supervised the medical residents activities, and agree with the H&P unless as otherwise noted. Assessment and Plan: Hyperglycemia with diabetes mellitus type 2- Glucose 546 on ED labs Received 10 units regular insulin IV with improvement to 399 Received 1500 mils of normal saline in ED, will continue IV fluids as noted Patient has had 7 previous admissions this year for similar symptoms Continue Lantus as noted with NovoLog SSI Follow serial renal profile and magnesium levels Blood sugar control seems to be affected by her GI state, which is likely secondary to pain control medications and/or gastroparesis Chronic low back pain- Continue home pain regimen as noted To help with GI disruption caused by narcotics, should consider medication such as Relistor or Movantik as an outpatient Bowel regimen for now Anxiety/depression- Continue BuSpar, duloxetine and trazodone Seizure disorder- Continue Keppra Remaining orders and notations as noted Resident Activity Tracking Resident Involvement: Resident Care Provided Care Provided: Adult Hospital Medicine (2) Chronic low back pain Back pain laterality: unspecified Sciatica presence: unspecified whether sciatica present Qualified Code(s): M54.50 - Low back pain, unspecified; G89.29 - Other chronic pain
[2023-04-01] MEDS ORDERED: LANTUS PER UNIT CHARGE SQ SCH (22:15)
[2023-04-01] MEDS ORDERED: LIDOCAINE 5% 1 PATCH TD PRN (22:18)
[2023-04-01] MEDS ORDERED: DICLOFENAC SOD 1% GEL 100 GM TUBE EXT PRN (23:57)
[2023-04-01] MEDS ORDERED: ALBUTEROL HFA 8 GM INHALER INH PRN (23:57)
[2023-04-01] MEDS ORDERED: POLYETHYLENE (MIRALAX) 17 GM PACK PO PRN (23:57)
[2023-04-02 00:38] LABS: Appearance Urine Cloudy (Clear); Bacteria Urine Automated Negative (Negative); Bilirubin Urine Negative (Negative); Blood Urine Negative (Negative); Color Urine Yellow; Epithelial Cell Urine Auto >30 /lpf (0-5); Glucose Urine UA 3+ (Negative); Ketones Urine 1+ (Negative); Leukocyte Esterase Urine Trace (Negative); Nitrite Urine Negative (Negative); Protein Urine 1+ (Negative); Specific Gravity Urine > 1.045 (1.000-1.030); Urobilinogen Urine Negative (Negative); WBC Urine Automated >30 /hpf (0-5); pH Urine 5.5 (4.5-7.5)
[2023-04-02] MEDS ORDERED: traZODone HCL 100 MG TAB PO ONE (00:49)
[2023-04-02 00:58] LABS: Cast Urine Automated 0 /lpf (0-5); RBC Urine Automated 0-4 /hpf (0-4)
[2023-04-02] MEDS: oxyCODONE HCL IR 5 MG TAB (IMMEDIATE RELEASE) PO PRN ×4 (01:00→21:51)
[2023-04-02] MEDS: INSULIN ASPART PER UNIT CHARGE SC SCH ×6 (01:00→21:19)
[2023-04-02] MEDS ORDERED: PHARMACY GLYCEMIC MGMT CONSULT PRN (03:29)
[2023-04-02] MEDS ORDERED: INSULIN ASPART PER UNIT CHARGE SC ONE (04:20)
[2023-04-02] MEDS ORDERED: LANTUS PER UNIT CHARGE SQ ONE (04:30)
[2023-04-02 06:43] LABS: Hemoglobin 14.5 g/dl (12.0-16.0); Mean Corpuscular Hemoglobin 31.3 pg (25.0-34.0); Mean Corpuscular Hgb Conc 35.4 g/dL (32.0-36.0); Mean Corpuscular Volume 88.6 fL (80.0-100.0); Mean Platelet Volume 11.7 fL (9.4-12.4); Platelet Count 162 K/uL (130-400); RDW Standard Deviation 45.3 fL (36.4-46.3); Red Blood Count 4.63 M/uL (4.20-5.40)
[2023-04-02 07:02] LABS: BUN Creatinine Ratio 19.4 (10-20); Calcium 8.6 mg/dl (8.6-10.3); Creatinine Clr Calc Pharmacy 105.3 ml/min; Est GFR (Non-African American) 94.9 ml/min; Magnesium 1.7 mg/dl (1.7-2.4); Potassium 3.7 mmol/L (3.5-5.1)
--- NOTE | 2023-04-02 07:10 | Hospitalist Progress Note ---
Date of Service April 02, 2023 Assessment & Plan (1) Hyperglycemia: Plan: 52 y/o female with PMH DM2, chronic low back pain, seizures, COPD, cirrhosis, HTN, morbid obesity, opioid dependence who presented with abdominal pain and hyperglycemia in the 500s who became acutely hypotensive after administration of IV contrast admitted for glycemic control and monitoring of hemodynamic stability. Hypotension Patient with acute hypotension following administration of IV contrast 54/42. Appropriate fluid resuscitation and pain control with fentanyl were performed in the ED. Likely an anaphylactic reaction to IV contrast. Would recommend outpatient workup with allergy as patient has had countless contrast CTs. She may have primed at her previous administration as she reported having itching that resolved with benadryl. Warrants further workup. Will add contrast to allergies at this time. Hyperglycemia with DM2 Patient with sugars in the 500s and significant dehydration. Likely in the setting of poor PO intake and glycemic control. Received 10U insulin in ED and 1.5L of fluid resuscitation. No anion gap likely not in HHS/DKA. Pharmacy consult for glycemic control - appreciate recs. Imaging: CT A/P : Incidental cardiomegaly, fatty/cirrhotic liver, chol ecystectomy, postoperative change of the lumbar spine, IUD in good position and moderate fecal loading of the colon appears stable. -BSG checks ACHS -SSI -AM BMP Tachycardia -likely 2/2 back pain, anxiety, hyperglycemia -admit to med/tele -sinus tachycardia on EKG Chronic low back pain -received fentanyl and toradol in ED. Can add flexeril if needed. Pain control as below Home pain regimen meloxicam 15mg daily PRN lidocaine patch PRN voltaren gel Gabapentin 800mg TID oxycodone 10mg q4hr PRN Depression Anxiety -continue home regime: buspar 5mg QID duloxetine 60mg HS trazodone 100mg hs GERD -continue pepcid, protonix Seizures -continue keppra 1000mg BID COPD -continue montelukast 10mg hs -PRN albuterol FENa: carb consistent Code Status: full DVT PPX: SCDs PT/OT: ordered Dispo: med/tele (2) Chronic low back pain: (3) Seizure: (4) Uncontrolled type 2 diabetes mellitus: (5) Opiate dependence: (6) Anxiety: (7) Depression: Admission and Anticipated Discharge Date Admission Date: April 01, 2023 Supervising Physician Co-Signing Physician Notes I personally examined the patient and verified all brennan points of history and exam, discussed case, and agree with decision making with Dr Page Feeling better now. Worried about what happened last night. Discussed situation. She has had IV contrast studies many many times in the past, although the previous most recent she did have some rash and itching on her legs afterwards. Vitals noted, in general she is awake and alert pleasant no distress. HEENT normocephalic atraumatic mucous membranes moist. Breathing unlabored no accessory muscle use good effort. Skin without rashes pallor or icterus. Possible anaphylactic reactiontemporally related to iodine contrast mediaand it does sound a bit plausible given that her previous exposure to iodine contrast did have an itchy rash, it is possible that with her immune system being primed. At the same time its a bit odd given that she has had IV contrast so many times before to suddenly develop an allergy nowafter discharge we will ask that she be seen by allergy so as to better discern that it truly was the iodine, and not that there is some other substance that she reacted to and we are talking about iodineand therefore leaving are exposed to a possible reaction again. Uncontrolled diabetescontinue insulin management Weakness/back painoutpatient PT/OMT. Subjective Patient doing okay this morning. Some pain. Some nausea. Feels shaken up after h er episodes of hypotension yesterday. Review of Systems Review of Systems: See HPI Physical Exam Physical Exam: Gen: well appearing female in NAD HEENT: AT NC Resp: CTAB no wheezing CV: RRR no m/r/g Abd: soft, non-tender, non-distended Psych: appropriate mood and affect Neuro: alert and oriented Skin: warm, dry no rashes/bruising Results & Data Results & Data Vital Signs (Past 12 Hours) Vital Signs Temp Pulse Pulse Resp BP BP Pulse Ox 04/02/23 00:24 119 H 04/02/23 00:23 36.6 C 117 H 18 120/76 99 04/02/23 03:24 36.8 C 124 H 18 96/65 L 94 04/01/23 23:00 116 H 20 134/96 98 04/01/23 22:30 117 H 20 132/92 100 04/01/23 21:31 116 H 19 111/68 99 04/01/23 22:47 117 H 04/01/23 21:15 114 H 15 113/81 99 04/01/23 21:00 118 H 19 105/75 100 04/01/23 20:45 123 H 17 111/76 97 04/01/23 20:36 128 H 17 79/59 L 99 04/01/23 20:26 132 H 18 76/65 L 94 04/01/23 20:19 132 H 20 90/46 L 96 04/01/23 20:13 130 H 17 64/33 L 96 04/01/23 20:07 133 H 18 54/42 L 97 O2 Del Method 04/02/23 00:24 04/02/23 00:23 Room Air 04/02/23 03:24 Room Air 04/01/23 23:00 Room Air 04/01/23 22:30 Room Air 04/01/23 21:31 Room Air 04/01/23 22:47 04/01/23 21:15 Room Air 04/01/23 21:00 Room Air 04/01/23 20:45 Room Air 04/01/23 20:36 Room Air 04/01/23 20:26 Room Air 04/01/23 20:19 Room Air 04/01/23 20:13 Room Air 04/01/23 20:07 Room Air Laboratory Results 04/02/23 05:36 04/02/23 05:36 Diagnostic Findings Abdomen/Pelvis CT 04/01/23 18:11 Exam(s): CT ABDOMEN + PELVIS With Contrast IV Amt: 94ml EXAM: CT Abdomen and Pelvis With Intravenous Contrast CLINICAL HISTORY: Reason for exam: mid abd pain, high blood sugar. Prior nisha. TECHNIQUE: Axial computed tomography images of the abdomen and pelvis with intravenous contrast. CTDI is 26.3 mGy and DLP is 1461.2 mGy-cm. Automated exposure control was utilized for the study. A dose lowering technique was utilized adhering to the principles of ALARA. Metal artifact from hardware in the lower lumbar spine again noted. CONTRAST: Patient received 94ml of IV contrast COMPARISON: CT abdomen pelvis 03/14/23. FINDINGS: Lung bases: Clear. Mild cardiomegaly and minimal hiatal hernia are stable. Liver: Fatty and/or cirrhosis, stable. Gallbladder and bile ducts: Stable cholecystectomy. No ductal dilation. Pancreas: No ductal dilation. Spleen: Unremarkable. Adrenals: Unremarkable. No mass. Kidneys and ureters: No pyelonephritis or hydronephrosis. Stomach and bowel: Moderate fecal loading of the colon. No diverticulosis or diverticulitis. No obstruction. Appendix: Intraperitoneal space: No free air or fluid. Bones/joints: Bilateral pedicle screws L3, L4, L5 with disc prosthesis L3-4 and L4-5. No acute fracture. Soft tissues: Unremarkable. Vasculature: Mild atherosclerosis. No abdominal aortic aneurysm. Lymph nodes: No enlarged lymph nodes. Bladder: No stones. Reproductive: IUD in good position, stable. IMPRESSION: 1. No acute abnormality, and no change. 2. Incidental cardiomegaly, fatty/cirrhotic liver, cholecystectomy, postoperative change of the lumbar spine, IUD in good position and moderate fecal loading of the colon appears stable. Resident Activity Tracking Resident Involvement: Resident Care Provided Care Provided: Adult Hospital Medicine (2) Chronic low back pain Back pain laterality: unspecified Sciatica presence: unspecified whether sciatica present Qualified Code(s): M54.50 - Low back pain, unspecified; G89.29 - Other chronic pain
[2023-04-02] MEDS ORDERED: INSULIN HUMAN REGULAR PER UNIT 8 UNITS in SYRINGE 7.92 ML IV ONE (08:00)
[2023-04-02 08:17] LABS: Estimated Average Glucose 272 mg/dl; Hemoglobin A1C 11.1 % (4.5-5.6)
[2023-04-02] MEDS: ASPIRIN 81 MG ECTAB PO SCH (08:42)
[2023-04-02] MEDS: busPIRone 5 MG TAB PO SCH ×4 (08:42→21:14)
[2023-04-02] MEDS: MELOXICAM 7.5 MG TAB PO SCH (08:43)
[2023-04-02] MEDS: FAMOTIDINE 40 MG TABLET PO SCH ×2 (08:43→21:15)
[2023-04-02] MEDS: levETIRAcetam 500 MG TAB PO SCH ×2 (08:43→21:15)
[2023-04-02] MEDS: PANTOprazole 40 MG TAB PO SCH (08:43)
[2023-04-02] MEDS: GABAPENTIN 800 MG TAB PO SCH ×3 (08:43→21:14)
[2023-04-02] MEDS ORDERED: ONDANSETRON INJ 2 MG/ML 2 ML VIAL IV PRN (09:22)
--- NOTE | 2023-04-02 14:44 | Pharmacy Report ---
Pharmacy Glycemic Short Note 2 - Date of Service April 02, 2023 - Glycemic Short BSG Results (Last 24 hours): 04/01/23 04/01/23 04/01/23 18:11 18:21 19:49 Glucose 507 H* POC Glucose 546 H* 504 H* 04/01/23 04/01/23 04/02/23 20:48 22:55 00:27 Glucose POC Glucose 399 H* 403 H* 570 H* 04/02/23 04/02/23 04/02/23 00:30 03:22 05:36 Glucose 352 H* POC Glucose 484 H* 410 H* 04/02/23 04/02/23 07:41 11:42 Glucose POC Glucose 197 H 196 H OUTPATIENT ANTIDIABETIC REGIMEN: * U-500 ; 100 units TID - per notes, patient adjusts usually around 50 units TID ASSESSMENT: * 52 year old admitted with hyperglycemia. Pharmacy consulted on admission for glycemic management. BSGs trending down this AM to 197 mg/dL - Received Lantus 50 units this morning. Patient recently hospitalized and known to glycemic service. Typically requires around ~140 units of insulin/day while hospitalized. Plan to have scale for additional basal at HS depending on BSG value. PLAN FOR INPATIENT GLYCEMIC CONTROL: * Hold outpatient oral diabetes medications * Basal insulin * Lantus 50 units daily QAM * Lantus 10-20 units QHS * Bolus insulin * NovoLog per scale ACHS or Q6hrs while NPO * Goal Range: Low 110 mg/dL - High 140 mg/dL * Correction Factor: 15 mg/dL/unit * Nutritional / Prandial insulin per carb ratio of 1 unit per 4 grams CHO consumed
--- NOTE | 2023-04-02 17:37 | Electrocardiogram Report ---
Test Reason : Blood Pressure : / mmHG Vent. Rate : 133 BPM Atrial Rate : 133 BPM P-R Int : 148 ms QRS Dur : 076 ms QT Int : 302 ms P-R-T Axes : 054 -36 048 degrees QTc Int : 449 ms Sinus tachycardia with Fusion complexes Left axis deviation Inferior infarct , age undetermined Possible Anterior infarct (cited on or before 12-FEB-2023) Abnormal ECG When compared with ECG of 16-MAR-2023 20:34, Fusion complexes are now Present Questionable change in initial forces of Lateral leads T wave amplitude has increased in Anterior leads Confirmed by Gee Joseph ([id number]) on 04/02/2023 5:37:17 PM Referred By: Aneudy Pérez Confirmed By:Gee Joseph
--- NOTE | 2023-04-02 18:43 | Billing Data ---
Date of Service April 02, 2023 Coding Level of Care Code 38928 SUB INP/OBS CARE
--- NOTE | 2023-04-02 20:09 | Billing Data ---
Date of Service April 02, 2023 Coding Level of Care Code 41437 INT INP/OBS CARE
[2023-04-02] MEDS: MONTELUKAST SODIUM 10 MG TABLET PO SCH (21:14)
[2023-04-02] MEDS: traZODone HCL 100 MG TAB PO SCH (21:15)
[2023-04-02] MEDS: DULoxetine HCL 60 MG CAP PO SCH (21:15)
[2023-04-02] MEDS: LANTUS PER UNIT CHARGE SQ SCH (21:19)
[2023-04-03] MEDS ORDERED: INSULIN ASPART PER UNIT CHARGE SC SCH
[2023-04-03] MEDS ORDERED: INSULIN ASPART PER UNIT CHARGE SC ONE (04:00)
[2023-04-03] MEDS: oxyCODONE HCL IR 5 MG TAB (IMMEDIATE RELEASE) PO PRN ×5 (04:27→22:47)
[2023-04-03 07:19] LABS: Hematocrit (blood only) 34.9 % (37.0-47.0); Hemoglobin 12.4 g/dl (12.0-16.0); Mean Corpuscular Hemoglobin 31.5 pg (25.0-34.0); Mean Corpuscular Hgb Conc 35.5 g/dL (32.0-36.0); Mean Corpuscular Volume 88.6 fL (80.0-100.0); Mean Platelet Volume 11.8 fL (9.4-12.4); Platelet Count 116 K/uL (130-400); RDW Coefficient of Variation 13.7 % (11.5-14.5); RDW Standard Deviation 44.3 fL (36.4-46.3); Red Blood Count 3.94 M/uL (4.20-5.40); White Blood Count 6.37 K/ul (4.8-10.8)
[2023-04-03 07:32] LABS: Albumin Globulin Ratio 1.2 (0.9-2); Albumin Level 2.9 gm/dl (3.4-5.0); BUN Creatinine Ratio 27.9 (10-20); Bilirubin,Total 0.3 mg/dl (0.2-1.0); Calcium 8.3 mg/dl (8.6-10.3); Est GFR (African American) 119.1 ml/min; Est GFR (Non-African American) 102.8 ml/min; Globulin 2.5 gm/dl (2.5-4.0); Potassium 3.7 mmol/L (3.5-5.1); Total Protein 5.4 gm/dl (6.0-8.3)
--- NOTE | 2023-04-03 07:54 | Hospitalist Progress Note ---
Date of Service April 03, 2023 Assessment & Plan (1) Hyperglycemia: Plan: 52 y/o female with PMH DM2, chronic low back pain, seizures, COPD, cirrhosis, HTN, morbid obesity, opioid dependence who presented with abdominal pain and hyperglycemia in the 500s who became acutely hypotensive after administration of IV contrast admitted for glycemic control and monitoring of hemodynamic stability. Hypotension Patient with acute hypotension following administration of IV contrast 54/42. Appropriate fluid resuscitation and pain control with fentanyl were performed in the ED. Likely an anaphylactic reaction to IV contrast. Would recommend outpatient workup with allergy as patient has had countless contrast CTs. She may have primed at her previous admission as she reported having itching that resolved with benadryl. Warrants further workup. Will add contrast to allergies at this time. Hyperglycemia with DM2 Patient with sugars in the 500s and significant dehydration. Likely in the setting of poor PO intake and glycemic control. Received 10U insulin in ED and 1.5L of fluid resuscitation. No anion gap likely not in HHS/DKA. Pharmacy consult for glycemic control - appreciate recs. Imaging: CT A/P : Incidental cardiomegaly, fatty/cirrhotic liver, cholecyst ectomy, postoperative change of the lumbar spine, IUD in good position and moderate fecal loading of the colon appears stable. -BSG checks ACHS -SSI -AM BMP Tachycardia -likely 2/2 back pain, anxiety, hyperglycemia -admit to med/tele -sinus tachycardia on EKG Chronic low back pain -received fentanyl and toradol in ED. Can add flexeril if needed. Pain control as below Home pain regimen meloxicam 15mg daily PRN lidocaine patch PRN voltaren gel Gabapentin 800mg TID oxycodone 10mg q4hr PRN Depression Anxiety -continue home regime: buspar 5mg QID duloxetine 60mg HS trazodone 100mg hs GERD -continue pepcid, protonix Seizures -continue keppra 1000mg BID COPD -continue montelukast 10mg hs -PRN albuterol FENa: carb consistent Code Status: full DVT PPX: SCDs PT/OT: ordered Dispo: med/tele (2) Chronic low back pain: (3) Seizure: (4) Uncontrolled type 2 diabetes mellitus: (5) Opiate dependence: (6) Anxiety: (7) Depression: Admission and Anticipated Discharge Date Admission Date: April 01, 2023 Supervising Physician Co-Signing Physician Notes I personally examined the patient and verified all brennan points of history and exam, discussed case, and agree with decision making with Dr Page feeling ok just tired. worried about going home yet - but thinks she'll feel stronger. Vitals noted, in general she is awake and alert pleasant no distress. HEENT normocephalic atraumatic mucous membranes moist. Breathing unlabored no accessory muscle use good effort. Skin without rashes pallor or icterus. Possible anaphylactic reactiontemporally related to iodine contrast mediaand it does sound a bit plausible given that her previous exposure to iodine contrast did have an itchy rash, it is possible that with her immune system being primed. At the same time its a bit odd given that she has had IV contrast so many times before to suddenly develop an allergy nowafter discharge we will ask that she be seen by allergy so as to better discern that it truly was the iodine, and not that there is some other substance that she reacted to and we are talking about iodineand therefore leaving are exposed to a possible leisa ction again. Uncontrolled diabetescontinue insulin management Weakness/back painoutpatient PT/OMT. hopefully home soon. Subjective Patient in the bathroom at the time of evaluation. Review of Systems Review of Systems: See HPI Physical Exam Physical Exam: Gen: well appearing female in NAD HEENT: AT NC Resp: no increased work of breathing CV: clinically well perfused Abd: non-distended Psych: appropriate mood and affect Neuro: alert and oriented Skin: warm, dry no rashes/bruising Results & Data Results & Data Vital Signs (Past 12 Hours) Vital Signs Temp Pulse Pulse Resp BP Pulse Ox O2 Del Method 04/03/23 01:59 36.7 C 101 H 18 110/66 96 Room Air 04/02/23 23:32 36.7 C 107 H 18 101/62 96 Room Air 04/02/23 22:41 99 H Laboratory Results 04/03/23 06:12 04/03/23 06:12 Resident Activity Tracking Resident Involvement: Resident Care Provided Care Provided: Adult Hospital Medicine (2) Chronic low back pain Back pain laterality: unspecified Sciatica presence: unspecified whether sc iatica present Qualified Code(s): M54.50 - Low back pain, unspecified; G89.29 - Other chronic pain
[2023-04-03] MEDS: INSULIN ASPART PER UNIT CHARGE SC SCH ×4 (08:44→21:25)
[2023-04-03] MEDS ORDERED: LANTUS PER UNIT CHARGE SQ SCH (09:00)
[2023-04-03] MEDS: ASPIRIN 81 MG ECTAB PO SCH (09:10)
[2023-04-03] MEDS: PANTOprazole 40 MG TAB PO SCH (09:10)
[2023-04-03] MEDS: FAMOTIDINE 40 MG TABLET PO SCH ×2 (09:11→21:22)
[2023-04-03] MEDS: levETIRAcetam 500 MG TAB PO SCH ×2 (09:11→21:23)
[2023-04-03] MEDS: busPIRone 5 MG TAB PO SCH ×4 (09:11→21:21)
[2023-04-03] MEDS: MELOXICAM 7.5 MG TAB PO SCH (09:11)
[2023-04-03] MEDS: GABAPENTIN 800 MG TAB PO SCH ×3 (09:11→21:23)
--- NOTE | 2023-04-03 17:56 | Billing Data ---
Date of Service April 03, 2023 Coding Level of Care Code 30757 SUB INP/OBS CARE
[2023-04-03] MEDS ORDERED: CYCLOBENZAPRINE HCL 5 MG TAB PO STA (20:45)
[2023-04-03] MEDS: DULoxetine HCL 60 MG CAP PO SCH (21:22)
[2023-04-03] MEDS: MONTELUKAST SODIUM 10 MG TABLET PO SCH (21:24)
[2023-04-03] MEDS: traZODone HCL 100 MG TAB PO SCH (21:25)
[2023-04-03] MEDS: LANTUS PER UNIT CHARGE SQ SCH (21:26)
[2023-04-04] MEDS ORDERED: INSULIN ASPART PER UNIT CHARGE SC SCH
[2023-04-04 07:47] LABS: Albumin Globulin Ratio 1.2 (0.9-2); Albumin Level 2.9 gm/dl (3.4-5.0); BUN Creatinine Ratio 27.8 (10-20); Bilirubin,Total 0.3 mg/dl (0.2-1.0); Calcium 8.2 mg/dl (8.6-10.3); Creatinine Clr Calc Pharmacy 144.9 ml/min; Globulin 2.4 gm/dl (2.5-4.0); Potassium 3.6 mmol/L (3.5-5.1); Total Protein 5.3 gm/dl (6.0-8.3)
[2023-04-04 07:54] LABS: Hematocrit (blood only) 35.1 % (37.0-47.0); Hemoglobin 12.2 g/dl (12.0-16.0); Mean Corpuscular Hemoglobin 31.5 pg (25.0-34.0); Mean Corpuscular Hgb Conc 34.8 g/dL (32.0-36.0); Mean Corpuscular Volume 90.7 fL (80.0-100.0); Mean Platelet Volume 11.6 fL (9.4-12.4); Platelet Count 89 K/uL (130-400); Platelet Estimate Decreased (Normal); RDW Coefficient of Variation 13.9 % (11.5-14.5); RDW Standard Deviation 45.6 fL (36.4-46.3); Red Blood Count 3.87 M/uL (4.20-5.40); White Blood Count 6.59 K/ul (4.8-10.8)
--- NOTE | 2023-04-04 08:03 | Hospitalist Progress Note ---
Date of Service April 04, 2023 Assessment & Plan (1) Hyperglycemia: Plan: 52 y/o female with PMH DM2, chronic low back pain, seizures, COPD, cirrhosis, HTN, morbid obesity, opioid dependence who presented with abdominal pain and hyperglycemia in the 500s who became acutely hypotensive after administration of IV contrast admitted for glycemic control and monitoring of hemodynamic stability. Hypotension Patient with acute hypotension following administration of IV contrast 54/42. Appropriate fluid resuscitation and pain control with fentanyl were performed in the ED. Likely an anaphylactic reaction to IV contrast. Would recommend outp atient workup with allergy as patient has had countless contrast CTs. She may have primed at her previous admission as she reported having itching that resolved with benadryl. Warrants further workup. Will add contrast to allergies at this time. -BP low 100s/60s today Hyperglycemia with DM2 Patient with sugars in the 500s and significant dehydration. Likely in the setti ng of poor PO intake and glycemic control. Received 10U insulin in ED and 1.5L of fluid resuscitation. No anion gap likely not in HHS/DKA. Pharmacy consult for glycemic control - appreciate recs. -BSG checks ACHS -SSI -AM BMP Liver Cirrhosis -noted on CT scan. - CT A/P : Incidental cardiomegaly, fatty/cirrhotic liver, cholecystectomy, postoperative change of the lumbar spine, IUD in good position and moderate fecal loading of the colon appears stable. -Outpatient follow up and GI referral. Chronic low back pain -received fentanyl and toradol in ED. Can add Flexeril if needed. Pain control as below Home pain regimen meloxicam 15mg daily PRN lidocaine patch PRN voltaren gel Gabapentin 800mg TID oxycodone 10mg q4hr PRN Depression Anxiety -continue home regime: buspar 5mg QID duloxetine 60mg HS trazodone 100mg hs GERD -continue pepcid, protonix Seizures -continue keppra 1000mg BID COPD -continue montelukast 10mg hs -PRN albuterol FENa: carb consistent Code Status: full DVT PPX: SCDs PT/OT: ordered Dispo: med/tele; case management note reviewed (2) Chronic low back pain: (3) Seizure: (4) Uncontrolled type 2 diabetes mellitus: (5) Opiate dependence: (6) Anxiety: (7) Depression: Admission and Anticipated Discharge Date Admission Date: April 01, 2023 Supervising Physician Co-Signing Physician Notes Resident Physician Supervision Note: I independently interviewed and examined the patient and verified the brennan history and physical, reviewed labs and image studies and agree with resident findings and care plan. Subjective Patient seen and examined at bedside. States she is tired today, no events overnight. Notes her chronic back pain/worse on the left side. Review of Systems Review of Systems: As per above Physical Exam Constitutional: + obese, cooperative and comfortable Eyes: + anicteric sclerae ENMT: External ears and nose normal. Moist mucous membranes. Respiratory: normal respiratory effort, lungs clear to auscultation Cardiovascular: Rate/Rhythm: regular rate and regular rhythm Mild nonpitting edema of bilateral lower extremities. Gastrointestinal (Abdomen): Abdomen soft, nontender. Musculoskeletal: Pain reproducible with palpation of central chest. Skin: no rashes, warm and dry Psychiatric: A+Ox3, euthymic affect Results & Data Results & Data Vital Signs (Past 12 Hours) Vital Signs Temp Pulse Pulse Resp BP Pulse Ox O2 Del Method 04/04/23 07:00 36.6 C 90 18 103/66 97 Room Air 04/04/23 03:25 36.4 C L 76 16 109/71 96 Room Air 04/04/23 00:30 90 04/03/23 23:03 36.8 C 82 18 113/68 98 Room Air Resident Activity Tracking Resident Involvement: Resident Care Provided Care Provided: Adult Hospital Medicine (2) Chronic low back pain Back pain laterality: unspecified Sciatica presence: unspecified whether sciatica present Qualified Code(s): M54.50 - Low back pain, unspecified; G89.29 - Other chronic pain
--- NOTE | 2023-04-04 08:25 | Pharmacy Report ---
Pharmacy Glycemic Short Note 2 - Date of Service April 04, 2023 - Glycemic Short BSG Results (Last 24 hours): 04/03/23 04/03/23 04/03/23 11:33 16:36 20:22 Glucose POC Glucose 187 H 130 H 208 H 04/04/23 04/04/23 04/04/23 00:21 06:52 07:12 Glucose 181 H POC Glucose 108 H 201 H OUTPATIENT ANTIDIABETIC REGIMEN: * U-500 ; 100 units TID - per notes, patient adjusts usually around 50 units TID HbA1c: 11.1% (04/02/23) ASSESSMENT: 04/04/23: * BSGs labile yesterday, ranging 108-216 mg/dL * Will tighten carb coverage today * Fasting BSG of 201 mg/dL this morning * Will increase basal insulin today and divide more evenly BID Background: * 52 year old admitted with hyperglycemia. Pharmacy consulted on admission for glycemic management. BSGs trending down this AM to 197 mg/dL - Received Lantus 50 units this morning. Patient recently hospitalized and known to glycemic service. Typically requires around ~140 units of insulin/day while hospitalized. Plan to have scale for additional basal at HS depending on BSG value. PLAN FOR INPATIENT GLYCEMIC CONTROL: * Basal insulin * Lantus 50 units daily QAM * Lantus 30-50 units SC HS * Bolus insulin * NovoLog per scale ACHS or Q6hrs while NPO * Goal Range: Low 110 mg/dL - High 140 mg/dL * Correction Factor: 12 mg/dL/unit * Nutritional / Prandial insulin per carb ratio of 1 unit per 3 grams CHO consumed
[2023-04-04] MEDS: LANTUS PER UNIT CHARGE SQ SCH ×2 (08:37→20:59)
[2023-04-04] MEDS: INSULIN ASPART PER UNIT CHARGE SC SCH ×4 (08:38→20:59)
[2023-04-04] MEDS: busPIRone 5 MG TAB PO SCH ×4 (08:42→20:49)
[2023-04-04] MEDS: FAMOTIDINE 40 MG TABLET PO SCH ×2 (08:42→20:50)
[2023-04-04] MEDS: ASPIRIN 81 MG ECTAB PO SCH (08:42)
[2023-04-04] MEDS: GABAPENTIN 800 MG TAB PO SCH ×3 (08:43→20:50)
[2023-04-04] MEDS: MELOXICAM 7.5 MG TAB PO SCH (08:43)
[2023-04-04] MEDS: levETIRAcetam 500 MG TAB PO SCH ×2 (08:43→20:51)
[2023-04-04] MEDS: PANTOprazole 40 MG TAB PO SCH (08:44)
[2023-04-04] MEDS: oxyCODONE HCL IR 5 MG TAB (IMMEDIATE RELEASE) PO PRN ×4 (09:03→22:57)
[2023-04-04] MEDS: DULoxetine HCL 60 MG CAP PO SCH (20:50)
[2023-04-04] MEDS: MONTELUKAST SODIUM 10 MG TABLET PO SCH (20:51)
[2023-04-04] MEDS: traZODone HCL 100 MG TAB PO SCH (20:52)
[2023-04-05] MEDS: oxyCODONE HCL IR 5 MG TAB (IMMEDIATE RELEASE) PO PRN ×5 (05:52→22:22)
[2023-04-05 07:52] LABS: Hematocrit (blood only) 34.4 % (37.0-47.0); Mean Corpuscular Hemoglobin 31.3 pg (25.0-34.0); Mean Corpuscular Hgb Conc 34.9 g/dL (32.0-36.0); Mean Corpuscular Volume 89.8 fL (80.0-100.0); Mean Platelet Volume 12.5 fL (9.4-12.4); Platelet Count 99 K/uL (130-400); RDW Coefficient of Variation 14.1 % (11.5-14.5); RDW Standard Deviation 46.5 fL (36.4-46.3); Red Blood Count 3.83 M/uL (4.20-5.40); White Blood Count 5.14 K/ul (4.8-10.8)
[2023-04-05 08:06] LABS: BUN Creatinine Ratio 28.8 (10-20); Calcium 8.2 mg/dl (8.6-10.3); Creatinine Clr Calc Pharmacy 133.3 ml/min; Est GFR (African American) 120.4 ml/min; Est GFR (Non-African American) 103.9 ml/min; Potassium 3.9 mmol/L (3.5-5.1)
[2023-04-05] MEDS: INSULIN ASPART PER UNIT CHARGE SC SCH ×4 (09:30→21:05)
[2023-04-05] MEDS: ASPIRIN 81 MG ECTAB PO SCH (09:30)
[2023-04-05] MEDS: GABAPENTIN 800 MG TAB PO SCH ×3 (09:31→21:02)
[2023-04-05] MEDS: busPIRone 5 MG TAB PO SCH ×4 (09:31→21:03)
[2023-04-05] MEDS: FAMOTIDINE 40 MG TABLET PO SCH ×2 (09:31→21:03)
[2023-04-05] MEDS: levETIRAcetam 500 MG TAB PO SCH ×2 (09:32→21:03)
[2023-04-05] MEDS: LANTUS PER UNIT CHARGE SQ SCH ×2 (09:32→21:06)
[2023-04-05] MEDS: MELOXICAM 7.5 MG TAB PO SCH (09:32)
[2023-04-05] MEDS: PANTOprazole 40 MG TAB PO SCH (09:33)
--- NOTE | 2023-04-05 10:18 | Hospitalist Progress Note ---
Date of Service April 05, 2023 Assessment & Plan (1) Hyperglycemia: Plan: 52 y/o female with PMH DM2, chronic low back pain, seizures, COPD, cirrhosis, HTN, morbid obesity, opioid dependence who presented with abdominal pain and hyperglycemia in the 500s who became acutely hypotensive after administration of IV contrast admitted for glycemic control and monitoring of hemodynamic stability. Hopeful discharge in the next few days, patient concerned about discharging home alone and family will be there to help her on Tuesday. Hypotension Patient with acute hypotension following administration of IV contrast 54/42. Appropriate fluid resuscitation and pain control with fentanyl were performed in the ED. Likely an anaphylactic reaction to IV contrast. Would recommend outpatient workup with allergy as patient has had countless contrast CTs. She may have primed at her previous admission as she reported having itching that resolved with Benadryl. Warrants further workup. Will add contrast to allergies at this time. -BP low 100s/70s today Hyperglycemia with DM2 Patient with sugars in the 500s and significant dehydration. Likely in the setting of poor PO intake and glycemic control. Received 10U insulin in ED and 1.5L of fluid resuscitation. No anion gap likely not in HHS/DKA. Pharmacy consult for glycemic control - appreciate recs. -BSG checks ACHS -SSI -AM BMP Liver Cirrhosis -noted on CT scan. - CT A/P : Incidental cardiomegaly, fatty/cirrhotic liver, cholecystectomy, postoperative change of the lumbar spine, IUD in good position and moderate fecal loading of the colon appears stable. -Outpatient follow up and GI referral. Chronic low back pain -received fentanyl and Toradol in ED. Can add Flexeril if needed. Pain control as below Home pain regimen meloxicam 15mg daily PRN lidocaine patch PRN Voltaren gel Gabapentin 800mg TID oxycodone 10mg q4hr PRN Depression Anxiety -continue home regime: buspar 5mg QID duloxetine 60mg HS trazodone 100mg hs GERD -continue Pepcid, Protonix Seizures -continue Keppra 1000mg BID COPD -continue montelukast 10mg hs -PRN albuterol FENa: carb consistent Code Status: full DVT PPX: SCDs PT/OT: ordered Dispo: med/tele; case management note reviewed (2) Chronic low back pain: (3) Seizure: (4) Uncontrolled type 2 diabetes mellitus: (5) Opiate dependence: (6) Anxiety: (7) Depression: Admission and Anticipated Discharge Date Admission Date: April 01, 2023 Supervising Physician Co-Signing Physician Notes Resident Physician Supervision Note: I independently interviewed and examined the patient and verified the brennan history and physical, reviewed labs and image studies and agree with resident findings and care plan. Subjective Patient seen and examined at bedside. No acute events overnight, patient sitting upright eating breakfast at time of encounter. She states that her pain is at baseline, continues to have some musculoskeletal discomfort at the center of her chest (reproducible). Denies shortness of breath. Review of Systems Review of Systems: As per above Physical Exam Constitutional: + obese, cooperative and comfortable Eyes: + anicteric sclerae ENMT: External mouth and nose normal. Moist mucous membranes Respiratory: normal respiratory effort, lungs clear to auscultation Cardiovascular: Rate/Rhythm: regular rate and regular rhythm Skin: no rashes, warm and dry Psychiatric: A+Ox3, euthymic affect Results & Data Results & Data Vital Signs (Past 12 Hours) Vital Signs Temp Pulse Pulse Resp BP BP Pulse Ox 04/05/23 07:45 36.7 C 79 18 109/72 95 04/05/23 02:32 36.6 C 45 L 16 108/69 95 04/04/23 23:19 88 04/04/23 22:24 36.6 C 82 18 111/74 95 O2 Del Method 04/05/23 07:45 Room Air 04/05/23 02:32 Room Air 04/04/23 23:19 04/04/23 22:24 Room Air Resident Activity Tracking Resident Involvement: Resident Care Provided Care Provided: Adult Hospital Medicine (2) Chronic low back pain Back pain laterality: unspecified Sciatica presence: unspecified whether sciatica present Qualified Code(s): M54.50 - Low back pain, unspecified; G89.29 - Other chronic pain
[2023-04-05] MEDS: MONTELUKAST SODIUM 10 MG TABLET PO SCH (21:02)
[2023-04-05] MEDS: traZODone HCL 100 MG TAB PO SCH (21:03)
[2023-04-05] MEDS: DULoxetine HCL 60 MG CAP PO SCH (21:03)
[2023-04-06] MEDS: oxyCODONE HCL IR 5 MG TAB (IMMEDIATE RELEASE) PO PRN ×2 (06:14→11:45)
[2023-04-06 07:23] LABS: BUN Creatinine Ratio 26.8 (10-20); Calcium 8.5 mg/dl (8.6-10.3); Creatinine Clr Calc Pharmacy 140.4 ml/min; Est GFR (African American) 122.5 ml/min; Est GFR (Non-African American) 105.7 ml/min; Potassium 3.9 mmol/L (3.5-5.1)
[2023-04-06 07:26] LABS: Hematocrit (blood only) 35.4 % (37.0-47.0); Hemoglobin 12.3 g/dl (12.0-16.0); Mean Corpuscular Hemoglobin 31.3 pg (25.0-34.0); Mean Corpuscular Hgb Conc 34.7 g/dL (32.0-36.0); Mean Corpuscular Volume 90.1 fL (80.0-100.0); Mean Platelet Volume 12.1 fL (9.4-12.4); Platelet Count 103 K/uL (130-400); RDW Standard Deviation 46.4 fL (36.4-46.3); Red Blood Count 3.93 M/uL (4.20-5.40); White Blood Count 5.26 K/ul (4.8-10.8)
--- NOTE | 2023-04-06 07:27 | Hospitalist Progress Note ---
Date of Service April 06, 2023 Assessment & Plan (1) Hyperglycemia: Plan: 52 y/o female with PMH DM2, chronic low back pain, seizures, COPD, cirrhosis, HTN, morbid obesity, opioid dependence who presented with abdominal pain and hyperglycemia in the 500s who became acutely hypotensive after administration of IV contrast admitted for glycemic control and monitoring of hemodynamic stability. Hopeful discharge in the next few days, patient concerned about discharging home alone and family will be there to help her on Tuesday. Hypotension Patient with acute hypotension following administration of IV contrast 54/42. Appropriate fluid resuscitation and pain control with fentanyl were performed in the ED. Likely an anaphylactic reaction to IV contrast. Would recommend outpatient workup with allergy as patient has had countless contrast CTs. She may have primed at her previous admission as she reported having itching that resolved with Benadryl. Warrants further workup. Will add contrast to allergies at this time. -BP low 100s/70s today Hyperglycemia with DM2 Patient with sugars in the 500s and significant dehydration. Likely in the setting of poor PO intake and glycemic control. Received 10U insulin in ED and 1.5L of fluid resuscitation. No anion gap likely not in HHS/DKA. Pharmacy consult for glycemic control - appreciate recs. -BSG checks ACHS -SSI -AM BMP Liver Cirrhosis -noted on CT scan. - CT A/P : Incidental cardiomegaly, fatty/cirrhotic liver, cholecystectomy, postoperative change of the lumbar spine, IUD in good position and moderate fecal loading of the colon appears stable. -Outpatient follow up and GI referral. Chronic low back pain -received fentanyl and Toradol in ED. Can add Flexeril if needed. Pain control as below Home pain regimen meloxicam 15mg daily PRN lidocaine patch PRN Voltaren gel Gabapentin 800mg TID oxycodone 10mg q4hr PRN Depression Anxiety -continue home regime: buspar 5mg QID duloxetine 60mg HS trazodone 100mg hs GERD -continue Pepcid, Protonix Seizures -continue Keppra 1000mg BID COPD -continue montelukast 10mg hs -PRN albuterol FENa: carb consistent Code Status: full DVT PPX: SCDs PT/OT: ordered Dispo: med/tele; case management note reviewed (2) Chronic low back pain: (3) Seizure: (4) Uncontrolled type 2 diabetes mellitus: (5) Opiate dependence: (6) Anxiety: (7) Depression: Admission and Anticipated Discharge Date Admission Date: April 01, 2023 Review of Systems Review of Systems: As per above Results & Data Results & Data Vital Signs (Past 12 Hours) Vital Signs Temp Pulse Pulse Resp BP BP Pulse Ox 04/06/23 03:32 36.7 C 75 18 113/75 95 04/05/23 23:00 83 04/05/23 23:06 36.5 C 89 18 112/73 94 04/05/23 19:35 37 C 81 16 106/61 95 O2 Del Method 04/06/23 03:32 Room Air 04/05/23 23:00 04/05/23 23:06 Room Air 04/05/23 19:35 Room Air (2) Chronic low back pain Back pain laterality: unspecified Sciatica presence: unspecified whether sciatica present Qualified Code(s): M54.50 - Low back pain, unspecified; G89.29 - Other chronic pain
[2023-04-06] MEDS: busPIRone 5 MG TAB PO SCH ×2 (08:33→12:17)
[2023-04-06] MEDS: MELOXICAM 7.5 MG TAB PO SCH (08:33)
[2023-04-06] MEDS: levETIRAcetam 500 MG TAB PO SCH (08:33)
[2023-04-06] MEDS: ASPIRIN 81 MG ECTAB PO SCH (08:34)
[2023-04-06] MEDS: FAMOTIDINE 40 MG TABLET PO SCH (08:34)
[2023-04-06] MEDS: PANTOprazole 40 MG TAB PO SCH (08:34)
[2023-04-06] MEDS: GABAPENTIN 800 MG TAB PO SCH ×2 (08:34→14:08)
[2023-04-06] MEDS: INSULIN ASPART PER UNIT CHARGE SC SCH ×2 (08:37→12:16)
[2023-04-06] MEDS: LANTUS PER UNIT CHARGE SQ SCH (08:37)
--- NOTE | 2023-04-06 10:25 | Pharmacy Report ---
Pharmacy Glycemic Short Note 2 - Date of Service April 06, 2023 - Glycemic Short BSG Results (Last 24 hours): 04/05/23 04/05/23 04/05/23 11:10 16:08 20:51 Glucose POC Glucose 276 H 150 H 101 H 04/06/23 04/06/23 06:46 07:53 Glucose 186 H POC Glucose 190 H OUTPATIENT ANTIDIABETIC REGIMEN: * U-500 ; 100 units TID - per notes, patient adjusts usually around 50 units TID HbA1c: 11.1% (04/02/23) ASSESSMENT: 04/06/23: * Improving BSG trend with Novolog tightening yesterday, 276, 150, and 101 mg/dL * Fasting BSG mildly improved from yesterday (now below 200 mg/dL) * Will continue with tightened Novolog parameters and plan to increase basal * Plan is for discharge home today 04/04/23: * BSGs labile yesterday, ranging 108-216 mg/dL * Will tighten carb coverage today * Fasting BSG of 201 mg/dL this morning * Will increase basal insulin today and divide more evenly BID Background: * 52 year old admitted with hyperglycemia. Pharmacy consulted on admission for glycemic management. BSGs trending down this AM to 197 mg/dL - Received Lantus 50 units this morning. Patient recently hospitalized and known to glycemic service. Typically requires around ~140 units of insulin/day while hospitalized. Plan to have scale for additional basal at HS depending on BSG value. PLAN FOR INPATIENT GLYCEMIC CONTROL: * Basal insulin * Lantus 50 units daily QAM * Lantus 40-50 units SC HS * Bolus insulin * NovoLog per scale ACHS or Q6hrs while NPO * Goal Range: Low 110 mg/dL - High 140 mg/dL * Correction Factor: 10 mg/dL/unit * Nutritional / Prandial insulin per carb ratio of 1 unit per 2 grams CHO consumed
--- NOTE | 2023-04-06 11:40 | Discharge Summary ---
Date of Service April 06, 2023 Admission HPI Per Admitting Provider 52yo Female with PMH DM2, chronic low back pain, seizures, COPD, cirrhosis, HTN, morbid obesity, opioid dependence sent to ED by PCP for concern hyperglycemia. Patient states in the last week she has poor appetite, noted her BP and HR were elevated. She states she has been taking her daily medication, none have changed since her last admission, last medication taken was this morning. Denies nausea, SOB, fever. Has ongoing LLQ abd pain that she relates to a history of hernias. Has some chest pain that she feels is non-cardiac related. Patient states she had a bad reaction to the contrast from her CT earlier today. At this time she has not been seeing PT at home. Patient requests to be placed on the [place] service upon admission. Admission Exam Per Admitting Provider Constitutional: well developed, well nourished, + morbidly obese, cooperative and comfortable Eyes: PERRL, conjunctivae normal, anicteric sclerae ENMT: external ear and nose normal, oropharynx normal Neck: trachea midline, no thyromegaly Respiratory: normal respiratory effort, lungs clear to auscultation Cardiovascular: Rate/Rhythm: regular rhythm and + tachycardic Gastrointestinal (Abdomen): Inspection/Auscultation: abdomen normal to inspection Percussion/Palpation: + abdomen tender (LLQ) and abdomen soft Skin: no rashes, warm and dry Principal Diagnosis uncontrolled DM2 w/ hyperglycemia Discharge Exam GENERAL: No acute distress. Well developed and well nourished. Vital signs reviewed as documented. EYES: Anicteric sclerae. HENT: Moist mucous membranes. RESPIRATORY: No acute respiratory distress. No conversational dyspnea. EXTREMITIES: No gross deformities. SKIN: Warm, dry. NEUROLOGIC: Alert and oriented. Normal speech. PSYCHIATRIC: Cooperative. Appropriate mood and affect. Discharge Data Allergies Allergy/AdvReac Type Severity Reaction Status Date / Time Iodinated Contrast Media Allergy Severe Anaphylaxis Verified 04/02/23 10:41 acetaminophen AdvReac Severe LIVER Verified 03/14/23 21:10 COMPLICATIONS cephalexin AdvReac Severe Vomiting Verified 03/14/23 21:10 levofloxacin [From Levaquin] AdvReac Intermediate Vomiting Verified 03/14/23 21:10 Consultations 04/01/23 21:28 ED Decision to Admit Stat Ordered Studies 04/01/23 18:11 CT Abd and Pelvis [CT abd pelvis IV con only] Stat Hospital Course (1) Hyperglycemia: 52 y/o female with PMH DM2, chronic low back pain, seizures, COPD, cirrhosis, HTN, morbid obesity, opioid dependence who presented with abdominal pain and hyperglycemia in the 500s who became acutely hypotensive after administration of IV contrast on 04/01/23 and subsequently admitted for glycemic control and monitoring of hemodynamic stability. Discharged to home on 04/06/23. Hypotension Patient with acute hypotension (BP 54/42) following administration of IV contrast on 04/01. Appropriate fluid resuscitation and pain control with fentanyl were performed in the ED. Suspect that the hypotension was likely an anaphylactic reaction to IV contrast. Recommend outpatient workup with allergy as patient has had countless contrast CTs. She may have primed at her previous admission as she reported having itching that resolved with Benadryl. Warrants further workup. Added contrast to allergies at this time. Hyperglycemia with DM2 Patient with sugars in the 500s and significant dehydration. Likely in the setting of poor PO intake and glycemic control. Received 10U insulin in ED and 1.5L of fluid resuscitation. No anion gap likely not in HHS/DKA. Pharmacy consult for glycemic control - appreciate recs. Received diabetes education during admission. On discharge, resumed home regimen of Humulin 50 units TID. Can consider addition of Novolog for further glycemic control. Liver Cirrhosis: Noted on CT scan during admission. - CT A/P : Incidental cardiomegaly, fatty/cirrhotic liver, cholecystectomy, postoperative change of the lumbar spine, IUD in good position and moderate fecal loading of the colon appears stable. Outpatient follow up and GI referral placed. Chronic low back pain -received fentanyl and Toradol in ED. Can add Flexeril if needed. Pain control as below Home pain regimen-- meloxicam 15mg daily PRN lidocaine patch PRN Voltaren gel Gabapentin 800mg TID oxycodone 10mg q4hr PRN Depression Anxiety: Stable. No acute changes during admission. Continue home buspar 5mg QID, duloxetine 60mg HS, and trazodone 100mg hs GERD: Stable. No acute changes during admission. Continue Pepcid, Protonix. Seizures: Stable. No acute changes during admission. Continue Keppra 1000mg BID COPD: Stable. No acute changes during admission. Continue montelukast 10mg hs and PRN albuterol (2) Chronic low back pain: (3) Seizure: (4) Uncontrolled type 2 diabetes mellitus: (5) Opiate dependence: (6) Anxiety: (7) Depression: Total Time Total Time Spent Total Time Spent (In Minutes): See attending attestation Discharge Plan Discharge Items Patient Disposition: Home - Self-Care Reason For Visit: HYPERGLYCEMIA Discharge Diagnosis: hyperglycemia Activity: Resume your previous activity Non-emergency contact: Primary Care Provider Call non-emergency contact if: you have any medication questions Follow-up/Referrals: Alfa Fitch PA-C [[facility]] - 04/11/23 4:30 pm (Endocrine) Ang Gill MD [Physician] - 04/13/23 3:20 pm (GI) Aneudy Pérez MD [Primary Care Provider] - 04/11/23 8:45 am Sharmin Fontana MD [Physician] - (Allergy Office will reach out to schedule) Diet: Carb Consistent or DM2 Addtl Attending Provider Instructions: It was our pleasure to care for you at [facility] from 04/01/24 to 04/06/23. You initially presented to the emergency room with concern for hyperglycemia (high blood sugar). While being evaluated in the ER, you also had an episode of hypotension, or low blood pressure, possibly associated with IV contrast administration during CT imaging. You were therefore admitted for glycemic control and hemodynamic (vital signs including blood pressure) monitoring. You have done well and at this time we feel that it is safe for you to be discharged home. A discharge summary will be sent to your primary care physician to ensure continuity of care. Please bring this discharge summary with you to your next office appointment so that your provider can review it at that time. Follow-up appointments: You have a follow up appointment scheduled with Dr. Page on TuesdayApril 11 at 8:45 AM at the [facility]. It is very important that you follow up with them as scheduled after discharge from the hospital. You were also scheduled for a follow-up appointment with endocrinology for follow up of your diabetes; this is scheduled for April 11 at 4:30 PM. You were also scheduled for a follow-up appointment with GI for further evaluation of the fatty/cirrhotic liver; this is scheduled for April 13 at 3:20 PM. You are also being scheduled for a follow-up appointment with allergy and immunology for further evaluation of the possible IV contract allergy. The allergy office will contact you to schedule this appointment. Keep all your follow-up appointments as already scheduled. If you cannot make an appointment, notify your provider. Medications: Your medication list has been reviewed and reconciled upon discharge to ensure accuracy and continuity of care. An updated list of all your medications is included with your hospital discharge paperwork. Please review this list closely. There were no changes made to your home regimen during this admission. and make note of any changes. Take your medications as instructed; do not skip a dose of your medicines. Make sure all of your doctors know every medicine you are taking (including csjp-dii-ucbolmm medicines, vitamins, and supplements). Call your primary care provider before taking any new medicines (including over- the- counter medicines, vitamins, and supplements), because some of these may interact with your current medications, or may make your symptoms worse. Tell your primary care provider if you cannot afford your medications. CONTACT YOUR PRIMARY CARE PROVIDER if you experience any of the following: Worsening of symptoms Fever, chills, or fatigue Difficulty following your treatment plan, or difficulty taking medications CALL 911 OR GO TO THE EMERGENCY DEPARTMENT if you experience any of the following: Sudden, severe abdominal pain or nausea/vomiting Severe chest pain, or chest pain that radiates (moves) to your jaw or arm Sudden, severe shortness of breath or difficulty breathing Thank you for allowing us to participate in your care. Pending Studies at Discharge: No Stand-Alone Forms: My [facility], Smoking Cessation Medications and DC Order Prescriptions: Continued cyclobenzaprine 10 mg Tablet 10 mg PO BID PRN (Reason: Muscle Spasm) Qty: 0 albuterol sulfate [Ventolin HFA] 90 mcg/actuation Hfa Aerosol Inhaler 2 puff INHALATION Q4H PRN (Reason: Shortness Of Breath Or Wheezing) Qty: 0 Humulin R U-500 (Conc) Kwikpen 500 unit/mL (3 mL) insulin pen 50 unit subcut TID Qty: 18 4RF Rx Instructions: Inject 50 units into the abdomen 3 times per day; injections should be 6-8 hours apart. montelukast [Singulair] 10 mg tablet 10 mg PO HS clindamycin phosphate 1 % gel 1 applic topical DAILY PRN (Reason: Unknown) fluticasone propion-salmeterol [AirDuo RespiClick] 232-14 mcg/actuation aerosol powdr breath activated 2 inh inhalation BID PRN (Reason: Shortness Of Breath) ibuprofen 800 mg tablet 0 mg PO TID PRN (Reason: Pain) Patient Comments: Per PT she uses the meloxicam promethazine 25 mg tablet 25 mg PO Q6H PRN (Reason: Nausea) aspirin 81 mg Tablet,Delayed Release (Dr/Ec) 81 mg PO QAM duloxetine 60 mg capsule,delayed release(DR/EC) 60 mg PO HS buspirone 5 mg tablet 5 mg PO QID nystatin [Nyamyc] 100,000 unit/gram powder 1 applic TOPICAL DIRECTED PRN (Reason: NEEDED ) levetiracetam 1,000 mg tablet 1,000 mg PO BID 30 Days Qty: 60 0RF oxycodone 20 mg tablet 10 mg PO BID PRN (Reason: pain) Qty: 2 0RF diclofenac sodium 1 % Gel 4 g TOPICAL QID PRN (Reason: Pain) albuterol sulfate 2.5 mg /3 mL (0.083 %) solution for nebulization 2.5 mg inhalation Q6 PRN (Reason: Wheezing) famotidine 40 mg tablet 40 mg PO BID pantoprazole 20 mg tablet,delayed release (DR/EC) 20 mg PO QAM lidocaine 5 % adhesive patch,medicated 1 patch transdermal DAILY PRN (Reason: Pain) fluticasone propionate [Flonase Allergy Relief] 50 mcg/actuation spray,suspension 1 spray INTRANASAL DAILY PRN (Reason: Congestion) trazodone 100 mg tablet 100 mg PO HS polyethylene glycol 3350 [Miralax] 17 gram/dose Powder 17 g PO BID Patient Comments: Typically uses once a day gabapentin 800 mg tablet 800 mg PO TID ondansetron 4 mg tablet,disintegrating 4 mg PO Q6H PRN (Reason: nausea and vomiting) Qty: 12 0RF meloxicam 15 mg tablet 15 mg PO DAILY oxycodone 5 mg tablet 10 mg PO Q4H PRN (Reason: pain) Qty: 30 0RF Patient Comments: Per pt she gets 10mg filled from pharmacy but when in the hospital she's given two 5mg Rx Instructions: 1 tab for moderate pain, 2 for severe pain No Action (DME) Bedside Commode Misc See Rx Instructions .Route Qty: 1 0RF Rx Instructions: As directed (DME) Shower Chair Misc See Rx Instructions .Route Qty: 1 0RF Rx Instructions: As directed (DME) insulin syringe-needle U-100 1/2 mL 32 gauge x 5/16" syringe See Rx Instructions .Route Qty: 100 1RF Rx Instructions: As directed Discharge Orders: Discharge Order (Routine); Ordered 04/06/23 Ordered By: Anny Colunga Admission Data Admit Date/Time: 04/01/23 22:01 Attending Provider: Savi Claire Admit Provider: Danette Miller Primary Care Provider: Aneudy Pérez Other Providers: Benigno Pastor ; Mike Canchola Other Interventions: Discharge Summary Assessment (RN) Last Done: 04/06/23 13:16 Supervising Physician Co-Signing Physician Notes Resident Physician Supervision Note: I independently interviewed and examined the patient and verified the brennan history and physical, reviewed labs and image studies and agree with resident findings and care plan. Resident Activity Tracking Resident Involvement: Resident Care Provided Care Provided: Adult Hospital Medicine
== END 2023-04-06 14:26 | disposition home or self-care (01) | DRG 638 ==
LOC: ED 16:29 → 2W 22:01 → SUATTDRO 22:01 → 2W 23:15

== ENCOUNTER 2023-04-13 10:36 | Inpatient (IN) ==
[2023-04-13] MEDS ORDERED: SODIUM CHLORIDE 0.9% 1000ML 1,000 ML IV ONE ×2 (11:43→12:49)
[2023-04-13] MEDS ORDERED: SODIUM CHLORIDE 0.9% 1000ML 1,000 ML IV SCH (11:45)
[2023-04-13] MEDS ORDERED: KETOROLAC TROMETHAMINE 15 MG/ML VIAL IV ONE (12:08)
[2023-04-13 12:37] LABS: Basophils # (auto) 0.03 K/uL (0-0.2); Basophils % (auto) 0.4 %; Eosinophils # (auto) 0.03 K/uL (0-0.50); Eosinophils % (auto) 0.4 %; Hematocrit (blood only) 41.7 % (37.0-47.0); Hemoglobin 14.7 g/dl (12.0-16.0); Immature Granulocytes # (auto) 0.02 K/uL (0.01-0.20); Immature Granulocytes % (auto) 0.2 %; Lymphocytes # (auto) 1.78 K/uL (1.2-3.4); Lymphocytes % (auto) 21.2 %; Mean Corpuscular Hemoglobin 30.8 pg (25.0-34.0); Mean Corpuscular Hgb Conc 35.3 g/dL (32.0-36.0); Mean Corpuscular Volume 87.4 fL (80.0-100.0); Monocytes # (auto) 0.56 K/uL (0.11-0.59); Monocytes % (auto) 6.7 %; Neutrophils # (auto) 5.96 K/uL (1.40-6.50); Neutrophils % (auto) 71.1 %; Platelet Count 186 K/uL (130-400); RDW Coefficient of Variation 13.9 % (11.5-14.5); Red Blood Count 4.77 M/uL (4.20-5.40); White Blood Count 8.38 K/ul (4.8-10.8)
--- NOTE | 2023-04-13 12:55 | XRay Report ---
XR chest 1V portable CLINICAL HISTORY: fever TECHNIQUE: Single frontal radiograph of the chest was obtained. Comparison: Comparison is made to chest radiograph 03/03/2023 FINDINGS: No lines and tubes are seen. The cardiomediastinal silhouette is normal. The lungs are clear. No evid ence of pleural effusion or pneumothorax. IMPRESSION: No acute abnormalities and in particular no radiographic evidence of pneumonia. ACT 112: Negative or not required by law. Electronically signed by: Unruly Mcneill M.D. 04/13/2023 12:53 PM
--- NOTE | 2023-04-13 12:57 | CT Scan Report ---
CT head/brain wo con CLINICAL HISTORY: fall, headache Technique: Contiguous axial CT images of the head were acquired from the base of the skull to the jacinto morgan without intravenous contrast administration. Images were viewed in brain, subdural and [facility]. Automated dose lowering techniques and/or adjustment according to patient size were utilized for this exam. Comparison: Comparison is made to CT head 03/03/2023 Findings: The ventricles, basal cisterns, and cerebral sulci are normal. There is no acute intracranial hemorrh age or evidence of acute territorial infarction. Neither mass effect, shift of the midline structures , nor abnormal extra-axial fluid collections are shown. Imaged portions of the paranasal sinuses and mastoid air cells are clear. The orbits appear normal. There are no acute fractures of the calvaria or scalp swelling. Impression: No acute intracranial hemorrhage, no evidence of acute territorial infarction or other acute intracra nial disease process. ACT 112: Negative or not required by law. Electronically signed by: Unruly Mcneill M.D. 04/13/2023 12:55 PM
[2023-04-13 13:00] LABS: Alanine Aminotransferase 19 U/L (7-52); Albumin Globulin Ratio 1.2 (0.9-2); Albumin Level 3.9 gm/dl (3.4-5.0); Alkaline Phosphatase 132 U/L (34-104); Anion Gap 8 (3-11); Aspartate Aminotransferase 13 U/L (13-39); BUN Creatinine Ratio 8.7 (10-20); Bilirubin,Total 0.5 mg/dl (0.2-1.0); Blood Urea Nitrogen 6 mg/dl (6-23); C Reactive Protein < 0.50 mg/dl (0-0.5); Calcium 9.4 mg/dl (8.6-10.3); Carbon Dioxide 22 mmol/L (21-32); Chloride 108 mmol/L (98-107); Creatine Kinase 59 U/L (26-192); Creatinine Clr Calc Pharmacy 111.4 ml/min; Est GFR (African American) 114.4 ml/min; Est GFR (Non-African American) 98.7 ml/min; Globulin 3.3 gm/dl (2.5-4.0); Glucose 424 mg/dl (70-99(Fasting)); Potassium 3.8 mmol/L (3.5-5.1); Sodium 138 mmol/L (136-145); Total Protein 7.2 gm/dl (6.0-8.3)
--- NOTE | 2023-04-13 13:08 | CT Scan Report ---
CT OF THE LUMBAR SPINE CLINICAL HISTORY: Fall. COMPARISON STUDY: Lumbar spine CT and lumbar spine MRI February 12, 2023. TECHNIQUE: Helical axial images of the lumbar spine were obtained. Sagittal and coronal reconstruct ions were viewed. Automated exposure control was utilized for the study. A dose lowering technique was utilized adhering to the principles of ALARA. FINDINGS: For purposes of numbering on this exam, the L5-S1 disc space is assigned to axial image 371 of 447. No lumbar spine fracture is noted. Minimal leftward curvature of the lumbar spine is noted. There are postoperative findings consistent with L3-L4 and L4-L5 discectomies with posterior decompre ssion and bilateral pedicle screw fusion. The hardware appears intact. No osseous lesions are noted. The postoperative appearance is unchanged. 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 Prevertebral s oft tissues are unremarkable by CT. Central canal and neural foramen suboptimally assessed given CT t echnique. IMPRESSION: 1. No acute lumbar spine fracture or subluxation. 2. Stable postoperative findings following L3-L5 discectomy, posterior decompression and pedicle scre w fusion. ACT 112: Negative or not required by law. Electronically signed by: Dani Cardona M.D. 04/13/2023 1:05 PM
[2023-04-13 13:24] LABS: Adenovirus PCR Not Detected (NotDetected); Bordetella parapertussis PCR Not Detected (NotDetected); Bordetella pertussis PCR Not Detected (NotDetected); Chlamydia pneumoniae PCR Not Detected (NotDetected); Coronavirus 229E PCR Not Detected (NotDetected); Coronavirus CoV-2 (COVID19)PCR Not Detected (NotDetected); Coronavirus HKU1 PCR Not Detected (NotDetected); Coronavirus NL63 PCR Not Detected (NotDetected); Coronavirus OC43PCR Not Detected (NotDetected); Human Metapneumovirus PCR Not Detected (NotDetected); Influenza A PCR Not Detected (NotDetected); Influenza B PCR Not Detected (NotDetected); Mycoplasma pneumoniae PCR Not Detected (NotDetected); Parainfluenza Virus 1 PCR Not Detected (NotDetected); Parainfluenza Virus 2 PCR Not Detected (NotDetected); Parainfluenza Virus 3 PCR Not Detected (NotDetected); Parainfluenza Virus 4 PCR Not Detected (NotDetected); Respiratory Syncytial VirusPCR Not Detected (NotDetected); Rhinovirus/Enterovirus PCR Not Detected (NotDetected)
--- NOTE | 2023-04-13 13:26 | Emergency Department Note ---
Impression & Plan Syncope, Uncontrolled type 2 diabetes mellitus, Elevated lactic acid level, Fever, Tachycardia ED Provider Note INFORMANT: Patient ED PROVIDER(S): Benson Felix MD CHIEF COMPLAINT: Fall PLAN: Disposition: Admitted Condition: Good Outpatient prescription management: none Referral: None MEDICAL DECISION MAKING: Patient presented because of a fall. Vital signs revealed that she was tachycardic and had a mild fever. This was concerning. A work-up was initiated. Head CT and lumbar spine imaging did not reveal any acute process. Chest x-ray was negative. Patient had no findings on bio fire testing. She did have a normal white blood cell count CRP and procalcitonin however the patient did have an elevated lactate. She was hydrated via her ideal body weight to cover for sepsis. Her lactate did improve. The patient's vital signs improved as well. Patient did have marked hyperglycemia. She was treated with IV insulin. Patient was given IV Rocephin for empiric coverage. I did discuss with the ED pharmacist who noted that the patient had received Rocephin in the past without difficulty. She did tolerate this well. Patient was treated with IV fentanyl for symptom control and did feel better. She also received IV Toradol. Further management in the hospital will be necessary. Consultation was made with Dr. Pool Crews of the [facility] service. Patient was evaluated in the ER for further management. Discussed with customer account manager After review of the information above and other included data, I feel the patient requires further management in the hospital. Triage Nursing notes reviewed and agree them. Vital Signs: reviewed and remarkable for tachycardia and fever Prior /Outside records reviewed: Prior admission record reviewed. Differential diagnosis: CHI, ICH, infection, dehydration, metabolic abnormality, hypo/hyperglycemia, electrolyte disturbance, anemia, hypoxia, cardiac sources, intracerebral event, toxicologic, neurologic, as well as other pathologies. Diagnostics, as interpreted by me: ECG: Twelve-lead ECG reveals normal sinus rhythm at 89 bpm. There is nonspecific ST. No ST elevation. Cardiac Monitoring: Cardiac monitoring ordered by me: The patient was placed on continuous cardiac monitoring and observed. It revealed a sinus tachycardic rhythm at 113 per minute without ectopy or evidence of dysrhythmia. Medical decision rules: none Imaging studies: Head CT, lumbar spine CT, and chest x-ray were negative for acute process. HPI: The patient is a 52year old female who presents to the Emergency Room with complaints of a fall. This started 2 days ago and is described as in the shower. Patient states that she fell out and was unconscious for 8 or 9 hours. The patient also notes the following associated symptoms, headache, low back pain, weakness, fatigue. The patient has taken usual pain medication for r elieving factors. Current pain is rated as 8/10. Patient has a history of back pain and surgery. She feels like she aggravated her back. Pt denies LOC, fevers, chills, diaphoresis, visual changes, neck pain, chest pain, breathing difficulties, nausea, vomiting, abdominal pain, melena, hematochezia, urinary symptoms, numbness, lymphadenopathy, rash, or other complaints. PAST MEDICAL HISTORY: See Below, diabetes PAST SURGICAL HISTORY: See Below, SOCIAL HISTORY: See Below, former smoker HOME MEDICATIONS: See Below ALLERGIES: See Below VITALS: See Below PHYSICAL EXAMINATION: GENERAL: Awake, alert, mildly uncomfortable-appearing, in no distress HENT: Normocephalic, atraumatic. Oropharynx unremarkable. EYES: Normal conjunctiva. Sclera non-icteric. NECK: Inspection normal. Non-tender. Supple. No nuchal rigidity. FROM. No masses. RESPIRATORY: Clear to auscultation. No wheezes. No rales. Normal respiratory effort. CARDIAC: Tachycardic rate. Normal rhythm. No murmurs. No rubs. Extremities warm and well perfused. Pulses equal. No JVD. GI: Soft, non-distended. No tenderness to palpation. No rebound or guarding. No masses. RECTAL: Deferred. MUSCULOSKELETAL: Atraumatic. Chest examination reveals no tenderness. The back is symmetrical on inspection without obvious abnormality. There is no CVA tenderness to palpation. Mild lumbar tenderness to palpation. No joint edema. LOWER EXTREMITIES: Calves are equal size bilaterally and non-tender. No edema. No discoloration. NEURO: Normal sensorium. No sensory or motor deficits noted. SKIN: No rash or jaundice noted. Past Med/Surg History Medical History Ambulatory dysfunction Ankle swelling Anxiety Brain cyst Chronic generalized abdominal pain Chronic low back pain with left-sided sciatica Chronic obstructive pulmonary disease Depression Hypertension Hypokalemia Hypomagnesemia Hyponatremia Insulin dependent diabetes mellitus Left hand paresthesia Narcotic abuse Ongoing, documented by PCP since 2014 Neurogenic claudication due to lumbar spinal stenosis Obesity Opiate dependence Opioid abuse Periapical abscess with facial involvement Pulmonary embolism Reports was anticoagulation x 60 days, not on chronic anticoagulation Rash Syncope Thrombocytopenia Tinea corporis Tinea cruris Uncontrolled type 2 diabetes mellitus Surgical History History of laparoscopic cholecystectomy History of lumbar surgery Hx of oral surgery (02/15/20) Acute right submandibular, submental space infection with floor of mouth infection caused by infected lower teeth. Dr. Rios 02/15/20 S/P dilation and curettage S/P laparoscopic hernia repair S/P laparoscopic procedure ovarian cyst surgery Family History Mother , 73 Heart disease Cancer small cell ca lung caused at 73 Father Skin cancer Brother No problems noted. Sister No problems noted. Grandmother (Maternal) , 48 Heart disease T2DM (type 2 diabetes mellitus) Grandmother (Paternal) , 83 Heart disease Kidney disease Uncle T2DM (type 2 diabetes mellitus) Other Diabetes Obesity Denies family history of Ovarian cancer Breast cancer Colorectal cancer Uterine cancer Social History Smoking Status: Former smoker Tobacco Type: Cigarettes Cigarettes Per Day: 5; Second Hand Exposure: Yes; Do You Dip or Chew Tobacco: No; Tobacco Cessation Education Requested by Patient: No Hx Alcohol Use: No Hx Substance Use: No Preferred Language: Honduran Communication Ability: Effective Visual Impairment: No Limitations Hearing Ability: Normal Lead Business Analyst Required: No Beliefs That Will Affect Care: None marital status: Current Living Situation: Alone Current Living Situation Comment: Lives with son (15yo) current occupational status: unemployed 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 How many Children do You have: 1 Other Information That Helps Us Care for You: No Feels Safe at Home: Yes Safety Concerns: Feels Safe At This Time Assistive Devices: Denture - Upper, Denture - Lower, Glasses, Walker and Wheelchair Allergies Allergies Allergy/AdvReac Type Severity Reaction Status Date / Time Iodinated Contrast Media Allergy Severe Anaphylaxis Verified 04/13/23 15:07 acetaminophen AdvReac Severe LIVER Verified 04/13/23 15:07 COMPLICATIONS cephalexin AdvReac Severe Vomiting Verified 04/13/23 15:07 [facility] AdvReac Intermediate Vomiting Verified 04/13/23 15:07 Home Meds Home Medications Medication Instructions Recorded Confirmed cyclobenzaprine 10 mg tablet 10 mg PO BID PRN Muscle Spasm ##0 11/18/17 04/13/23 albuterol sulfate 90 mcg/actuation 2 puff inhalation Q4H PRN 02/10/18 04/13/23 aerosol inhaler (Ventolin HFA) Shortness Of Breath Or Wheezing ##0 ibuprofen 800 mg tablet 800 mg PO TID PRN Pain 10/24/19 04/13/23 promethazine 25 mg tablet 25 mg PO Q6H PRN Nausea 10/24/19 04/13/23 fluticasone 232 mcg-salmeterol 14 2 inh inhalation BID PRN Shortness 08/21/20 04/13/23 mcg/actuation breath activated Of Breath powdr (AirDuo RespiClick) montelukast 10 mg tablet 10 mg PO HS 09/01/20 04/13/23 (Singulair) aspirin 81 mg tablet,delayed 81 mg PO QAM 10/28/20 04/13/23 release diclofenac sodium 1 % topical gel 4 g topical QID PRN Pain 07/20/21 04/13/23 albuterol sulfate 2.5 mg/3 mL 2.5 mg inhalation Q6 PRN Wheezing 01/19/22 04/13/23 (0.083 %) solution for nebulization famotidine 40 mg tablet 40 mg PO BID 01/19/22 04/13/23 fluticasone propionate 50 1 spray intranasal DAILY PRN 01/19/22 04/13/23 mcg/actuation nasal Congestion spray,suspension (Flonase Allergy Relief) lidocaine 5 % topical patch 1 patch transdermal DAILY PRN Pain 01/19/22 04/13/23 pantoprazole 20 mg tablet,delayed 20 mg PO QAM 01/19/22 04/13/23 release polyethylene glycol 3350 17 17 g PO BID 01/29/22 04/13/23 gram/dose oral powder (Miralax) trazodone 100 mg tablet 100 mg PO HS 01/29/22 04/13/23 duloxetine 60 mg capsule,delayed 60 mg PO HS 03/12/22 04/13/23 release gabapentin 800 mg tablet 800 mg PO TID 04/05/22 04/13/23 buspirone 5 mg tablet 5 mg PO QID 07/30/22 04/13/23 nystatin 100,000 unit/gram topical 1 applic topical DIRECTED PRN 10/12/22 04/13/23 powder ([facility]) NEEDED meloxicam 15 mg tablet 15 mg PO DAILY 12/20/22 04/13/23 clindamycin phosphate 1 % topical 1 applic topical DAILY PRN Unknown 01/25/23 04/13/23 gel Previous Rx's Medication Instructions Recorded ondansetron 4 mg disintegrating 4 mg PO Q6H PRN nausea and 08/11/22 tablet vomiting #12 tabs levetiracetam 1,000 mg tablet 1,000 mg PO BID 30 days #60 tabs 12/11/22 Bedside Commode #1 ea 12/28/22 Shower Chair #1 ea 12/28/22 insulin syringe-needle U-100 1/2 #100 ea 12/29/22 mL 32 gauge x 5/16" oxycodone 5 mg tablet 10 mg PO Q4H PRN pain #30 tabs 02/20/23 insulin regular hum U-500 conc 500 50 unit (0.1 mL) subcut TID #18 mL 03/17/23 unit/mL(3 mL) subcut pen (Humulin R U-500 (Conc) Insulin Kwikpen) oxycodone 20 mg tablet 10 mg PO BID PRN pain #2 tabs 04/06/23 Results & Data (ED) Vital Signs Vital Signs - 24 hr 04/13/23 10:42 04/13/23 10:50 04/13/23 10:42 Temperature 38.0 C H Temperature Source Oral Pulse Rate 115 H 117 H 115 H Pulse Rate from SpO2 Sensor 116 H Respiratory Rate 16 15 Respiratory Effort / Characteristics Non-Labored Spontaneous Respiratory Depth Normal Blood Pressure 154/99 H Blood Pressure Mean 117 Pulse Oximetry 99 96 Oxygen Delivery Method Room Air Sepsis Recent Fever Within 48 Hours No Sepsis New/Unexplained Change in Mental Status No Sepsis Action Taken by Nursing No Action Required 04/13/23 11:00 04/13/23 11:01 04/13/23 11:01 Temperature Temperature Source Pulse Rate Pulse Rate from SpO2 Sensor 110 H 112 H Respiratory Rate Respiratory Effort / Characteristics Respiratory Depth Blood Pressure 144/110 H Blood Pressure Mean 124 Pulse Oximetry 95 97 Oxygen Delivery Method Sepsis Recent Fever Within 48 Hours Sepsis New/Unexplained Change in Mental Status Sepsis Action Taken by Nursing 04/13/23 11:30 04/13/23 12:02 04/13/23 12:08 Temperature Temperature Source Pulse Rate 114 H Pulse Rate from SpO2 Sensor 126 H 111 H 113 H Respiratory Rate 24 Respiratory Effort / Characteristics Respiratory Depth Blood Pressure Blood Pressure Mean Pulse Oximetry 95 97 96 Oxygen Delivery Method Sepsis Recent Fever Within 48 Hours Sepsis New/Unexplained Change in Mental Status Sepsis Action Taken by Nursing 04/13/23 12:08 04/13/23 12:43 04/13/23 13:00 Temperature Temperature Source Pulse Rate 96 H Pulse Rate from SpO2 Sensor 96 H Respiratory Rate 16 Respiratory Effort / Characteristics Respiratory Depth Blood Pressure 162/102 H 139/82 Blood Pressure Mean 121 95 Pulse Oximetry 96 Oxygen Delivery Method Sepsis Recent Fever Within 48 Hours Sepsis New/Unexplained Change in Mental Status Sepsis Action Taken by Nursing 04/13/23 13:00 04/13/23 13:30 04/13/23 13:30 Temperature Temperature Source Pulse Rate 96 H 94 H Pulse Rate from SpO2 Sensor 96 H 96 H Respiratory Rate 24 17 Respiratory Effort / Characteristics Respiratory Depth Blood Pressure 144/90 H Blood Pressure Mean 101 Pulse Oximetry 98 97 Oxygen Delivery Method Sepsis Recent Fever Within 48 Hours Sepsis New/Unexplained Change in Mental Status Sepsis Action Taken by Nursing 04/13/23 14:00 04/13/23 14:00 04/13/23 15:03 Temperature Temperature Source Pulse Rate 92 H 97 H Pulse Rate from SpO2 Sensor 94 H Respiratory Rate 20 13 Respiratory Effort / Characteristics Respiratory Depth Blood Pressure 133/72 Blood Pressure Mean 86 Pulse Oximetry 99 Oxygen Delivery Method Sepsis Recent Fever Within 48 Hours Sepsis New/Unexplained Change in Mental Status Sepsis Action Taken by Nursing 04/13/23 15:41 Temperature Temperature Source Pulse Rate 100 H Pulse Rate from SpO2 Sensor Respiratory Rate Respiratory Effort / Characteristics Respiratory Depth Blood Pressure Blood Pressure Mean Pulse Oximetry Oxygen Delivery Method Sepsis Recent Fever Within 48 Hours Sepsis New/Unexplained Change in Mental Status Sepsis Action Taken by Nursing Laboratory Data 04/13/23 12:00 04/13/23 12:00 Lab Results 04/13/23 04/13/23 04/13/23 Range/Units 12:00 12:00 12:00 WBC 8.38 (4.8-10.8) K/ul RBC 4.77 (4.20-5.40) M/uL Hgb 14.7 (12.0-16.0) g/dl Hct 41.7 (37.0-47.0) % MCV 87.4 (80.0-100.0) fL MCH 30.8 (25.0-34.0) pg MCHC 35.3 (32.0-36.0) g/dL RDW Std Deviation 44.0 (36.4-46.3) fL RDW Coeff of Kelli 13.9 (11.5-14.5) % Plt Count 186 (130-400) K/uL MPV 11.0 (9.4-12.4) fL Immature Gran % (Auto) 0.2 % Neut % (Auto) 71.1 % Lymph % (Auto) 21.2 % [place] % (Auto) 6.7 % Eos % (Auto) 0.4 % Baso % (Auto) 0.4 % Neut # (Auto) 5.96 (1.40-6.50) K/uL Lymph # (Auto) 1.78 (1.2-3.4) K/uL [place] # (Auto) 0.56 (0.11-0.59) K/uL Eos # (Auto) 0.03 (0-0.50) K/uL Baso # (Auto) 0.03 (0-0.2) K/uL Immature Gran # (Auto) 0.02 (0.01-0.20) K/uL Sodium 138 (136-145) mmol/L Potassium 3.8 (3.5-5.1) mmol/L Chloride 108 H (98-107) mmol/L Carbon Dioxide 22 (21-32) mmol/L Anion Gap 8 (3-11) BUN 6 (6-23) mg/dl Creatinine 0.69 (0.6-1.2) mg/dl Est Cr Clr Drug Dosing 111.4 ml/min Est GFR ( Amer) 114.4 ml/min Est GFR (Non-Af Amer) 98.7 ml/min BUN/Creatinine Ratio 8.7 L (10-20) Glucose 424 H* (70-99(Fasting)) mg/dl POC Glucose (70-99) mg/dl Lactate 3.2 H* (0.4-2.0) mmol/L Calcium 9.4 (8.6-10.3) mg/dl Total Bilirubin 0.5 (0.2-1.0) mg/dl AST 13 (13-39) U/L ALT 19 (7-52) U/L Alkaline Phosphatase 132 H (34-104) U/L Total Creatine Kinase 59 (26-192) U/L C-Reactive Protein < 0.50 (0-0.5) mg/dl Total Protein 7.2 (6.0-8.3) gm/dl Albumin 3.9 (3.4-5.0) gm/dl Globulin 3.3 (2.5-4.0) gm/dl Albumin/Globulin Ratio 1.2 (0.9-2) Procalcitonin (0-0.5) ng/ml Adenovirus (PCR) (NotDetected) B. pertussis DNA (PCR) (NotDetected) B.parapertussis DNA PCR (NotDetected) C. pneumoniae DNA (PCR) (NotDetected) Coronavirus OC43 (PCR) (NotDetected) Coronavirus HKU1 (PCR) (NotDetected) Coronavirus 229E (PCR) (NotDetected) SARS-CoV-2 (PCR) (NotDetected) Coronavirus NL63 (PCR) (NotDetected) Human Metapneumovir PCR (NotDetected) Influenza Type A (PCR) (NotDetected) Influenza Type B (PCR) (NotDetected) M. pneumoniae (PCR) (NotDetected) Parainfluenza 1 (PCR) (NotDetected) Parainfluenza 2 (PCR) (NotDetected) Parainfluenza 3 (PCR) (NotDetected) Parainfluenza 4 (PCR) (NotDetected) RSV (PCR) (NotDetected) Entero/Rhino (PCR) (NotDetected) 04/13/23 04/13/23 04/13/23 Range/Units 12:00 12:20 14:20 WBC (4.8-10.8) K/ul RBC (4.20-5.40) M/uL Hgb (12.0-16.0) g/dl Hct (37.0-47.0) % MCV (80.0-100.0) fL MCH (25.0-34.0) pg MCHC (32.0-36.0) g/dL RDW Std Deviation (36.4-46.3) fL RDW Coeff of Kelli (11.5-14.5) % Plt Count (130-400) K/uL MPV (9.4-12.4) fL Immature Gran % (Auto) % Neut % (Auto) % Lymph % (Auto) % [place] % (Auto) % Eos % (Auto) % Baso % (Auto) % Neut # (Auto) (1.40-6.50) K/uL Lymph # (Auto) (1.2-3.4) K/uL [place] # (Auto) (0.11-0.59) K/uL Eos # (Auto) (0-0.50) K/uL Baso # (Auto) (0-0.2) K/uL Immature Gran # (Auto) (0.01-0.20) K/uL Sodium (136-145) mmol/L Potassium (3.5-5.1) mmol/L Chloride (98-107) mmol/L Carbon Dioxide (21-32) mmol/L Anion Gap (3-11) BUN (6-23) mg/dl Creatinine (0.6-1.2) mg/dl Est Cr Clr Drug Dosing ml/min Est GFR ( Amer) ml/min Est GFR (Non-Af Amer) ml/min BUN/Creatinine Ratio (10-20) Glucose (70-99(Fasting)) mg/dl POC Glucose (70-99) mg/dl Lactate 2.5 H* (0.4-2.0) mmol/L Calcium (8.6-10.3) mg/dl Total Bilirubin (0.2-1.0) mg/dl AST (13-39) U/L ALT (7-52) U/L Alkaline Phosphatase (34-104) U/L Total Creatine Kinase (26-192) U/L C-Reactive Protein (0-0.5) mg/dl Total Protein (6.0-8.3) gm/dl Albumin (3.4-5.0) gm/dl Globulin (2.5-4.0) gm/dl Albumin/Globulin Ratio (0.9-2) Procalcitonin < 0.05 (0-0.5) ng/ml Adenovirus (PCR) Not Detected (NotDetected) B. pertussis DNA (PCR) Not Detected (NotDetected) B.parapertussis DNA PCR Not Detected (NotDetected) C. pneumoniae DNA (PCR) Not Detected (NotDetected) Coronavirus OC43 (PCR) Not Detected (NotDetected) Coronavirus HKU1 (PCR) Not Detected (NotDetected) Coronavirus 229E (PCR) Not Detected (NotDetected) SARS-CoV-2 (PCR) Not Detected (NotDetected) Coronavirus NL63 (PCR) Not Detected (NotDetected) Human Metapneumovir PCR Not Detected (NotDetected) Influenza Type A (PCR) Not Detected (NotDetected) Influenza Type B (PCR) Not Detected (NotDetected) M. pneumoniae (PCR) Not Detected (NotDetected) Parainfluenza 1 (PCR) Not Detected (NotDetected) Parainfluenza 2 (PCR) Not Detected (NotDetected) Parainfluenza 3 (PCR) Not Detected (NotDetected) Parainfluenza 4 (PCR) Not Detected (NotDetected) RSV (PCR) Not Detected (NotDetected) Entero/Rhino (PCR) Not Detected (NotDetected) 04/13/23 Range/Units 15:54 WBC (4.8-10.8) K/ul RBC (4.20-5.40) M/uL Hgb (12.0-16.0) g/dl Hct (37.0-47.0) % MCV (80.0-100.0) fL MCH (25.0-34.0) pg MCHC (32.0-36.0) g/dL RDW Std Deviation (36.4-46.3) fL RDW Coeff of Kelli (11.5-14.5) % Plt Count (130-400) K/uL MPV (9.4-12.4) fL Immature Gran % (Auto) % Neut % (Auto) % Lymph % (Auto) % [place] % (Auto) % Eos % (Auto) % Baso % (Auto) % Neut # (Auto) (1.40-6.50) K/uL Lymph # (Auto) (1.2-3.4) K/uL [place] # (Auto) (0.11-0.59) K/uL Eos # (Auto) (0-0.50) K/uL Baso # (Auto) (0-0.2) K/uL Immature Gran # (Auto) (0.01-0.20) K/uL Sodium (136-145) mmol/L Potassium (3.5-5.1) mmol/L Chloride (98-107) mmol/L Carbon Dioxide (21-32) mmol/L Anion Gap (3-11) BUN (6-23) mg/dl Creatinine (0.6-1.2) mg/dl Est Cr Clr Drug Dosing ml/min Est GFR ( Amer) ml/min Est GFR (Non-Af Amer) ml/min BUN/Creatinine Ratio (10-20) Glucose (70-99(Fasting)) mg/dl POC Glucose 162 H (70-99) mg/dl Lactate (0.4-2.0) mmol/L Calcium (8.6-10.3) mg/dl Total Bilirubin (0.2-1.0) mg/dl AST (13-39) U/L ALT (7-52) U/L Alkaline Phosphatase (34-104) U/L Total Creatine Kinase (26-192) U/L C-Reactive Protein (0-0.5) mg/dl Total Protein (6.0-8.3) gm/dl Albumin (3.4-5.0) gm/dl Globulin (2.5-4.0) gm/dl Albumin/Globulin Ratio (0.9-2) Procalcitonin (0-0.5) ng/ml Adenovirus (PCR) (NotDetected) B. pertussis DNA (PCR) (NotDetected) B.parapertussis DNA PCR (NotDetected) C. pneumoniae DNA (PCR) (NotDetected) Coronavirus OC43 (PCR) (NotDetected) Coronavirus HKU1 (PCR) (NotDetected) Coronavirus 229E (PCR) (NotDetected) SARS-CoV-2 (PCR) (NotDetected) Coronavirus NL63 (PCR) (NotDetected) Human Metapneumovir PCR (NotDetected) Influenza Type A (PCR) (NotDetected) Influenza Type B (PCR) (NotDetected) M. pneumoniae (PCR) (NotDetected) Parainfluenza 1 (PCR) (NotDetected) Parainfluenza 2 (PCR) (NotDetected) Parainfluenza 3 (PCR) (NotDetected) Parainfluenza 4 (PCR) (NotDetected) RSV (PCR) (NotDetected) Entero/Rhino (PCR) (NotDetected) Administered Medications Insulin Aspart (Insulin Aspart Per Unit Charge) 0 units SC ACHS YEN Stop: 05/13/23 17:34 Last Admin: 04/13/23 18:23 Dose: 5 units Documented By: JUNG Co-signed By: SRAVANI Oxycodone HCl (Oxycodone Hcl Ir 5 Mg Tab (Immediate Release)) 10 mg PO Q4H PRN PRN Reason: Pain Stop: 04/27/23 16:11 Last Admin: 04/13/23 16:45 Dose: 10 mg Documented By: Discontinued Medications Fentanyl Citrate (Fentanyl Citrate Pf 100 Mcg/2 Ml Vial) 50 mcg IV NOW STA Stop: 04/13/23 13:57 Last Admin: 04/13/23 14:04 Dose: 50 mcg Documented By: MAISHA Gabapentin (Gabapentin 800 Mg Tab) 800 mg PO ONE ONE Stop: 04/13/23 15:41 Last Admin: 04/13/23 15:55 Dose: 800 mg Documented By: Sodium Chloride (Nss 1000ml) 1,000 mls @ 999 mls/hr IV .Q1H1M ONE Stop: 04/13/23 12:43 Last Infusion: 04/13/23 14:14 Dose: 0 mls/hr Documented By: Admin: 04/13/23 12:14 Dose: 999 mls/hr Documented By: MAISHA Sodium Chloride (Nss 1000ml) 1,000 mls @ 125 mls/hr IV .Q8H YEN Stop: 05/13/23 11:44 Last Infusion: 04/13/23 18:20 Dose: 0 mls/hr Documented By: Admin: 04/13/23 15:31 Dose: 125 mls/hr Documented By: Sodium Chloride (Nss 1000ml) 1,000 mls @ 999 mls/hr IV .Q1H1M ONE Stop: 04/13/23 13:49 Last Infusion: 04/13/23 14:13 Dose: 0 mls/hr Documented By: Admin: 04/13/23 13:14 Dose: 999 mls/hr Documented By: ELEUTERIO Ceftriaxone Sodium (Rocephin) 2,000 mg in 70 mls @ 140 mls/hr IV NOW ONE Stop: 04/13/23 15:29 Last Infusion: 04/13/23 16:02 Dose: 0 mls/hr Documented By: Admin: 04/13/23 15:30 Dose: 140 mls/hr Documented By: Insulin Human Regular (Novolin-R Insulin Per Unit Charge) 10 units IV NOW STA Stop: 04/13/23 13:57 Last Admin: 04/13/23 14:05 Dose: 10 units Documented By: MAISHA Co-signed By: SAURAV Ketorolac Tromethamine (Ketorolac Tromethamine 15 Mg/Ml Vial) 10 mg IV NOW ONE Stop: 04/13/23 12:09 Last Admin: 04/13/23 12:17 Dose: 10 mg Documented By: MAISHA Imaging Data Radiologist's Impression: Head CT 04/13/23 11:44 CT head/brain wo con CLINICAL HISTORY: fall, headache Technique: Contiguous axial CT images of the head were acquired from the base of the skull to the vertex without intravenous contrast administration. Images were viewed in brain, subdural and bone windows. Automated dose lowering techniques and/or adjustment according to patient size were utilized for this exam. Comparison: Comparison is made to CT head 03/03/2023 Findings: The ventricles, basal cisterns, and cerebral sulci are normal. There is no acute intracranial hemorrhage or evidence of acute territorial infarction. Neither mass effect, shift of the midline structures, nor abnormal extra-axial fluid collections are shown. Imaged portions of the paranasal sinuses and mastoid air cells are clear. The orbits appear normal. There are no acute fractures of the calvaria or scalp swelling. Impression: No acute intracranial hemorrhage, no evidence of acute territorial infarction or other acute intracranial disease process. ACT 112: Negative or not required by law. Electronically signed by: Unruly Mcneill M.D. 04/13/2023 12:[address] 04/13/23 12:07 CT OF THE LUMBAR SPINE CLINICAL HISTORY: Fall. COMPARISON STUDY: Lumbar spine CT and lumbar spine MRI February 12, 2023. TECHNIQUE: Helical axial images of the lumbar spine were obtained. Sagittal and coronal reconstructions were viewed. Automated exposure control was utilized for the study. A dose lowering technique was utilized adhering to the principles of ALARA. FINDINGS: For purposes of numbering on this exam, the L5-S1 disc space is assigned to axial image 371 of 447. No lumbar spine fracture is noted. Minimal leftward curvature of the lumbar spine is noted. There are postoperative findings consistent with L3-L4 and L4-L5 discectomies with posterior decompres catarino and bilateral pedicle screw fusion. The hardware appears intact. No osseous lesions are noted. The postoperative appearance is unchanged. 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 Prevertebral soft tissues are unremarkable by CT. Central canal and neural foramen suboptimally assessed given CT technique. IMPRESSION: 1. No acute lumbar spine fracture or subluxation. 2. Stable postoperative findings following L3-L5 discectomy, posterior decompression and pedicle screw fusion. ACT 112: Negative or not required by law. Electronically signed by: Dani Cardona M.D. 04/13/2023 1:05 PM Chest X-Ray 04/13/23 12:08 XR chest 1V portable CLINICAL HISTORY: fever TECHNIQUE: Single frontal radiograph of the chest was obtained. Comparison: Comparison is made to chest radiograph 03/03/2023 FINDINGS: No lines and tubes are seen. The cardiomediastinal silhouette is normal. The lungs are clear. No evidence of pleural effusion or pneumothorax. IMPRESSION: No acute abnormalities and in particular no radiographic evidence of pneumonia. ACT 112: Negative or not required by law. Electronically signed by: Unruly Mcneill M.D. 04/13/2023 12:53 PM Discharge Plan Visit Data Chief Complaint: Fall ED Provider: Benson Felix Discharge Problem: Syncope, Uncontrolled type 2 diabetes mellitus, Elevated lactic acid level, Fever, Tachycardia Patient Disposition: Admitted As Inpatient Discharge Instructions Interventions: ED Discharge Assessment Last Done: 04/13/23 17:10
[2023-04-13] MEDS ORDERED: NovoLIN-R INSULIN PER UNIT CHARGE IV STA (13:56)
[2023-04-13] MEDS ORDERED: fentaNYL citrate PF 100 MCG/2 ML VIAL IV STA (13:56)
[2023-04-13] MEDS ORDERED: cefTRIAXone SODIUM 2,000 MG/70 ML BAG IV ONE (15:00)
[2023-04-13 15:28] LABS: Appearance Urine Clear (Clear); Bacteria Urine Automated Negative (Negative); Bilirubin Urine Negative (Negative); Blood Urine 1+ (Negative); Color Urine Yellow; Epithelial Cell Urine Auto 20-30 /lpf (0-5); Glucose Urine UA 3+ (Negative); Ketones Urine Negative (Negative); Leukocyte Esterase Urine Negative (Negative); Nitrite Urine Negative (Negative); Protein Urine 2+ (Negative); Specific Gravity Urine 1.045 (1.000-1.030); Urobilinogen Urine Negative (Negative); pH Urine 5.5 (4.5-7.5)
--- NOTE | 2023-04-13 15:31 | History & Physical Report ---
Date of Service April 13, 2023 Assessment & Plan (1) Fever: Plan: Acute on chronic weakness, fever 10/20/2022 underwent lumbar decompression/fusion L2-L5 Has been with residual weakness, recurrent falls, and pain over the last 6 months Has a known large Tarlov cyst, recommended for evaluation with neurosurgery at tertiary care for any further surgical intervention if required. Patient had a fall in the bathroom 2 days [employer] and was down for several hours, is with elevated lactate and clinically volume depleted on admission. CK is normal on admission BioFire negative. No signs of pneumonia. UA pending Received empiric Rocephin for elevated lactate and fever with no source of infection. Given no leukocytosis and no source, will defer additional antibiotics unless source is identified, she clinically worsens, or develops leukocytosis Blood cultures pending, has received 3 L NSS Patient reports she fell and hit her head in the shower when she missed her shower chair and was out for several hours. This was 2 days ago, but was referred to the ER after talking to her PCP and with a blood sugar of 400s. She has not had any loss of consciousness since that time. She reports this does not feel like one of her prior seizures, she had no incontinence, and no prodrome. She is febrile to 38 . Lower suspicion for spinal abscess/infection given normal Pro-Jabier/no leukocytosis, normal CRP however given lack of infectious symptoms targeting source with high fever, lactic acidosis, and increased pain MRI contrasted to reevaluate is reasonable Multiple admissions for weakness and falls. PT/OT ordered. Differential of fever includes PE (lower suspicion given normal oxygen saturation and no shortness of breath, no pleuritic/respiratory pain), viral, spinal infection (as noted above), reactive. She does not have a fluid wave on exam, abdomen is mildly tender at site of prior hernia is not rigid/guarding and has no history of ascites. If worsening will expand to CTabdomen/pelvis although limited without the use of contrast to evaluate for ascites and would resume Rocephin at that point we will continue to follow blood cultures and fever curve. History of labile hypotension With hypotensive episodes following contrast in the past. Normotensive at time of hospitalist assessment. Avoid IV contrast, suspected anaphylactic reaction at prior admission Insulin-dependent type 2 DM Clinically volume depleted and hyperglycemic with BSG in the 400s on admission Received fluids and 10 units insulin while in ER Anion gap is not elevated on admission, do not suspect HHS Lactate downtrending Home regimen of Humulin 50 units 3 times daily held, basal/bolus with pharmacy glycemic consult ordered on admission. Weight-based SSI will be 45/15; total daily dose based SSI would be 10/4. Given discrepancy will start with weight- based and consult pharmacy for assistance with adjustments as needed. BSG normalized following fluids and 10 units IV insulin. Will resume type II DM diet Liver cirrhosis ? Contributing to elevated lactate No ascites INR pending No transaminitis on admission No acute change in management on admission, outpatient follow-up if remaining stable Chronic low back pain Acutely worse in the setting of a fall Home pain regimen: Meloxicam 15 mg daily Lidocaine patch as needed Voltaren gel as needed Gabapentin 800 mg 3 times daily. Did not take this AM Oxycodone 10 mg every 4 hours as needed for breakthrough GERD Continue Protonix History of seizures Without recent seizure Patient does not feel like this was a seizure episode Continue Keppra 1000 mg twice daily COPD No acute exacerbation Albuterol Depression/anxiety BuSpar 5 mg 4 times daily Duloxetine 60 mg at bedtime Trazodone 100 mg at bedtime DVT prophylaxis: Heparin subcu Diet: Type II DM Disposition: PCU CODE STATUS: Full code (2) Morbid obesity with BMI of 40.0-44.9, adult: (3) Partial small bowel obstruction: (4) Acute lumbar radiculopathy: History of Present Illness Primary Care Provider: Aneudy Pérez MD Elza is a 52-year-old female with a past medical history of opiate dependence, COPD, insulin-dependent DM, morbid obesity, hypertension, narcotic abuse, seizure, lumbar radiculopathy s/p decompression and fusion, large Tarlov cyst extending through L5-S1, cirrhosis who presents with a fall. She reports that she fell in the shower 2 days ago and was unconscious for 8-9 hours. Has had headache, low back pain, weakness, fatigue and is currently in 9/10 pain at bedside. She has had recurrent back pain and surgery, recurrent admissions for pain control and falls, and has had ongoing weakness despite decompression and fusion last October. She has a residual large Tarlov cyst recommended for neurosurgery evaluation and out of the scope of orthospine at this institution on prior evaluations CThead: No acute findings CTlumbar spine: Stable postoperative findings at L5-L5 discectomy, decompression, pedicle screw fusion. No acute lumbar spine fracture or subluxation CXR: No acute findings On admission no leukocytosis, lactate elevated at 3.2 downtrending to 2.5 following IV FM, hyperglycemic at 424, negative BioFire. No granulocyte/neutrophilic expansion. Procalcitonin is normal. She is febrile to 38.0 while in the ER, tachycardic downtrending with fluids No dysuria, no polyuria Dry cough for 3-4 years with emphysema but not change or increase in cough, no sputum production int he last week, no shortness of breath, no wheezing, no orthopnea +difficulty sleeping No nausea/vomiting/diarrhea. Poor appetite over the last several months. Hasn't eaten much in the last 2-3 days due to feeling crappy from pain. Elza reports she is chronically weak. When she fell in the shower 'tweaked my back a bit, pain is worse since the fall' and still having L leg weakness. Denies numbness/tingling in the lower extremities. No urinary or bowel incontinence. She reports she has a cyst in the sacrum and weakness, but no change in this other than the pain since the fall and no saddle anesthesia. Is working on finding an appt with neurosurgery ?sneha paige vs [facility] tarlov [place], no current appointment yet working on scheduling. Is pending an appointment with [facility] [place] [place] [facility]ology for cirrhosis followup but cancelled todays appt due to an admit. Medical History: Reviewed Medications: Reviewed Surgical History: Reviewed Family history: Reviewed Allergies: Reviewed. NO CONTRAST, [facility]ric[facility]. Social History: No tobacco use, some secondhand smoke exposure. No etoh use. Code Status: Full Code Allergies Allergy/AdvReac Type Severity Reaction Status Date / Time Iodinated Contrast Media Allergy Severe Anaphylaxis Verified 04/13/23 15:07 acetaminophen AdvReac Severe LIVER Verified 04/13/23 15:07 COMPLICATIONS cephalexin AdvReac Severe Vomiting Verified 04/13/23 15:07 levofloxacin [From Levaquin] AdvReac Intermediate Vomiting Verified 04/13/23 15:07 Home Medications Medication Instructions Recorded Confirmed Type cyclobenzaprine 10 mg tablet 10 mg PO BID PRN Muscle Spasm ##0 11/18/17 04/13/23 History albuterol sulfate 90 mcg/actuation 2 puff inhalation Q4H PRN 02/10/18 04/13/23 History aerosol inhaler (Ventolin HFA) Shortness Of Breath Or Wheezing ##0 ibuprofen 800 mg tablet 800 mg PO TID PRN Pain 10/24/19 04/13/23 History promethazine 25 mg tablet 25 mg PO Q6H PRN Nausea 10/24/19 04/13/23 History fluticasone 232 mcg-salmeterol 14 2 inh inhalation BID PRN Shortness 08/21/20 04/13/23 History mcg/actuation breath activated Of Breath powdr (AirDuo RespiClick) montelukast 10 mg tablet 10 mg PO HS 09/01/20 04/13/23 History (Singulair) aspirin 81 mg tablet,delayed 81 mg PO QAM 10/28/20 04/13/23 History release diclofenac sodium 1 % topical gel 4 g topical QID PRN Pain 07/20/21 04/13/23 History albuterol sulfate 2.5 mg/3 mL 2.5 mg inhalation Q6 PRN Wheezing 01/19/22 04/13/23 History (0.083 %) solution for nebulization famotidine 40 mg tablet 40 mg PO BID 01/19/22 04/13/23 History fluticasone propionate 50 1 spray intranasal DAILY PRN 01/19/22 04/13/23 History mcg/actuation nasal Congestion spray,suspension (Flonase Allergy Relief) lidocaine 5 % topical patch 1 patch transdermal DAILY PRN Pain 01/19/22 04/13/23 History pantoprazole 20 mg tablet,delayed 20 mg PO QAM 01/19/22 04/13/23 History release polyethylene glycol 3350 17 17 g PO BID 01/29/22 04/13/23 History gram/dose oral powder (Miralax) trazodone 100 mg tablet 100 mg PO HS 01/29/22 04/13/23 History duloxetine 60 mg capsule,delayed 60 mg PO HS 03/12/22 04/13/23 History release gabapentin 800 mg tablet 800 mg PO TID 04/05/22 04/13/23 History buspirone 5 mg tablet 5 mg PO QID 07/30/22 04/13/23 History ondansetron 4 mg disintegrating 4 mg PO Q6H PRN nausea and 08/11/22 04/13/23 Rx tablet vomiting #12 tabs nystatin 100,000 unit/gram topical 1 applic topical DIRECTED PRN 10/12/22 04/13/23 History powder (Nyamyc) NEEDED levetiracetam 1,000 mg tablet 1,000 mg PO BID 30 days #60 tabs 12/11/22 04/13/23 Rx meloxicam 15 mg tablet 15 mg PO DAILY 12/20/22 04/13/23 History Bedside Commode #1 ea 12/28/22 01/25/23 Rx Shower Chair #1 ea 12/28/22 01/25/23 Rx insulin syringe-needle U-100 1/2 #100 ea 12/29/22 Rx mL 32 gauge x /" clindamycin phosphate 1 % topical 1 applic topical DAILY PRN Unknown 01/25/23 04/13/23 History gel oxycodone 5 mg tablet 10 mg PO Q4H PRN pain #30 tabs 02/20/23 04/13/23 Rx insulin regular hum U-500 conc 500 50 unit (0.1 mL) subcut TID #18 mL 03/17/23 04/13/23 Rx unit/mL(3 mL) subcut pen (Humulin R U-500 (Conc) Insulin Kwikpen) oxycodone 20 mg tablet 10 mg PO BID PRN pain #2 tabs 04/06/23 04/13/23 Rx Past Med/Surg History Medical History Ambulatory dysfunction Ankle swelling Anxiety Brain cyst Chronic generalized abdominal pain Chronic low back pain with left-sided sciatica Chronic obstructive pulmonary disease Depression Hypertension Hypokalemia Hypomagnesemia Hyponatremia Insulin dependent diabetes mellitus Left hand paresthesia Narcotic abuse Ongoing, documented by PCP since 2013 Neurogenic claudication due to lumbar spinal stenosis Obesity Opiate dependence Opioid abuse Periapical abscess with facial involvement Pulmonary embolism Reports was anticoagulation x 60 days, not on chronic anticoagulation Rash Syncope Thrombocytopenia Tinea corporis Tinea cruris Uncontrolled type 2 diabetes mellitus Surgical History History of laparoscopic cholecystectomy History of lumbar surgery Hx of oral surgery (02/15/20) Acute right submandibular, submental space infection with floor of mouth infection caused by infected lower teeth. Dr. iRos 02/15/20 S/P dilation and curettage S/P laparoscopic hernia repair S/P laparoscopic procedure ovarian cyst surgery Family History Mother , 73 Heart disease Cancer small cell ca lung caused at 73 Father Skin cancer Brother No problems noted. Sister No problems noted. Grandmother (Maternal) , 48 Heart disease T2DM (type 2 diabetes mellitus) Grandmother (Paternal) , 83 Heart disease Kidney disease Uncle T2DM (type 2 diabetes mellitus) Other Diabetes Obesity Denies family history of Ovarian cancer Breast cancer Colorectal cancer Uterine cancer Social History Smoking Status: Former smoker Tobacco Type: Cigarettes Cigarettes Per Day: 5; Second Hand Exposure: No; Do You Dip or Chew Tobacco: No; Hx Alcohol Use: No Hx Substance Use: No Preferred Language: Kazakh Communication Ability: Effective Visual Impairment: No Limitations Hearing Ability: Normal [employer] Required: No Beliefs That Will Affect Care: None marital status: Current Living Situation: Alone Current Living Situation Comment: Lives with son (15yo) current occupational status: unemployed 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 NAD. Cooperative. HEENT: Atraumatic, normocephalic. Pulm: CTAB A&P. -wheezes, -rales, -rhonchi. Symmetrical chest rise. No increased work of breathing. No respiratory distress. Cardiac:regular, tachycardic, -mrg. Radial pulses intact and symmetrical. Abdominal: Nontender, nondistended, soft. BS present. Extremities: No saddle anesthesia. Sensation intact to soft touch in hands and feet bilaterally. Is with 4 -/5 left leg flexion and slightly decree strength on ankle dorsiflexion/plantarflexion compared to the right. Cap refill brisk bilaterally. No pitting edema Results & Data Results & Data Vital Signs (Past 12 Hours) Vital Signs Temp Pulse Resp BP Pulse Ox O2 Del Method 04/13/23 15:03 97 H 13 04/13/23 14:00 92 H 20 99 04/13/23 14:00 133/72 04/13/23 13:30 94 H 17 97 04/13/23 13:30 144/90 H 04/13/23 13:00 96 H 24 98 04/13/23 13:00 139/82 04/13/23 12:43 96 H 16 96 04/13/23 12:08 162/102 H 04/13/23 12:08 114 H 24 96 04/13/23 12:02 97 04/13/23 11:30 95 04/13/23 11:01 144/110 H 04/13/23 11:01 97 04/13/23 11:00 95 04/13/23 10:42 115 H 15 96 04/13/23 10:50 117 H 04/13/23 10:42 38.0 C H 115 H 16 154/99 H 99 Room Air PG Care Time/CCT Total # of Minutes Spent Total Time Spent with Patient: Total time spent is greater than 50% in coordination of care (as documented) at patient's floor/unit and/or counseling patient: Coding Level of Care Code 78970 INT INP/OBS CARE 3/75MIN Diagnoses Fever R50.9 Morbid obesity with BMI of 40.0-44.9, adult E66.01; Z68.41 Partial small bowel obstruction K56.600 Acute lumbar radiculopathy M54.16
[2023-04-13] MEDS ORDERED: GABAPENTIN 800 MG TAB PO ONE (15:40)
[2023-04-13] MEDS ORDERED: LORazepam 1 MG TAB PO PRN ×2 (16:14→23:29)
[2023-04-13] MEDS: oxyCODONE HCL IR 5 MG TAB (IMMEDIATE RELEASE) PO PRN ×2 (16:45→21:11)
[2023-04-13] MEDS ORDERED: PROMETHAZINE HCL 25 MG TAB PO PRN (17:35)
[2023-04-13] MEDS ORDERED: ONDANSETRON 4 MG OD TAB PO PRN (17:35)
[2023-04-13] MEDS ORDERED: LIDOCAINE 5% 1 PATCH TD PRN (17:35)
[2023-04-13] MEDS ORDERED: CARBOHYDRATES FOR HYPOGLYCEMIA PO PRN (17:35)
[2023-04-13] MEDS ORDERED: GLUCAGON FOR INJ 1 MG VIAL SQ PRN (17:35)
[2023-04-13] MEDS ORDERED: PHARMACY GLYCEMIC MGMT CONSULT PRN (17:35)
[2023-04-13] MEDS ORDERED: GLUCOSE 40% GEL 15 GM TUBE PO PRN (17:35)
[2023-04-13] MEDS ORDERED: DEXTROSE 50% 50 ML SYRINGE IV PRN (17:35)
[2023-04-13] MEDS ORDERED: GLUCOSE 10 TAB/TUBE PO PRN (17:35)
[2023-04-13] MEDS ORDERED: ALBUTEROL 0.083% NEBU SOLN 3 ML VIAL INH PRN (17:35)
[2023-04-13] MEDS ORDERED: ALBUTEROL HFA 8 GM INHALER INH PRN (17:35)
[2023-04-13] MEDS: INSULIN ASPART PER UNIT CHARGE SC SCH ×2 (18:23→20:29)
[2023-04-13] MEDS: busPIRone 5 MG TAB PO SCH ×2 (20:06→20:31)
[2023-04-13] MEDS: DULoxetine HCL 60 MG CAP PO SCH (20:30)
[2023-04-13] MEDS: FAMOTIDINE 40 MG TABLET PO SCH (20:30)
[2023-04-13] MEDS: HEPARIN SOD 5,000 UNIT/0.5 ML VIAL SQ SCH (20:30)
[2023-04-13] MEDS: levETIRAcetam 500 MG TAB PO SCH (20:30)
[2023-04-13] MEDS: GABAPENTIN 800 MG TAB PO SCH (20:31)
[2023-04-13] MEDS: MONTELUKAST SODIUM 10 MG TABLET PO SCH (20:31)
[2023-04-13] MEDS: traZODone HCL 100 MG TAB PO SCH (20:31)
[2023-04-13] MEDS: POLYETHYLENE (MIRALAX) 17 GM PACK PO SCH (20:31)
[2023-04-13] MEDS ORDERED: LANTUS PER UNIT CHARGE SQ SCH (21:00)
[2023-04-13] MEDS ORDERED: LANTUS PER UNIT CHARGE SQ ONE (21:00)
[2023-04-14] MEDS ORDERED: GADOBUTROL 65ML VIAL IV ONE (00:26)
--- NOTE | 2023-04-14 00:50 | Magnetic Resonance Report ---
Exam(s): MRI L SPINE W/WO Contrast IV Amt: 9cc gadavist EXAM: MR Lumbar Spine Without and With Intravenous Contrast CLINICAL HISTORY: Reason for exam: pain, fever, hx cyst/hardware. TECHNIQUE: Magnetic resonance images of the lumbar spine without and with intravenous contrast in multiple planes. CONTRAST: Patient received 9cc gadavist of IV contrast COMPARISON: 12/25/2022. FINDINGS: Vertebrae: Unremarkable. No acute fracture. Normal lumbar lordosis. No scoliosis. Spinal cord: Spinal cord terminates at approximate T12-L1 level. There is normal signal through the visualized spinal cord. No abnormal enhancement. Sacrum/coccyx: Fluid collection along the posterior thecal sac from S1 to S3- S4 level compatible with Tarlov cysts, unchanged. Soft tissues: Status post posterior fusion from L3-L5 with nonspecific increased signal along the posterior paraspinal musculature is soft tissues consistent with nonspecific postsurgical change, stable. No abnormal enhancement following contrast administration. DISCS/SPINAL CANAL/NEURAL FORAMINA: L1-L2: Mild disc desiccation. Mild hypertrophy of bilateral facets and ligamenta flava. No stenosis. L2-L3: Mild disc desiccation. Mild hypertrophy of bilateral facets and ligamentum flavum. No stenosis. L3-L4: Posterior fusion with decompression surgery. Mild facet hypertrophy. No stenosis. L4-L5: Posterior fusion with decompression surgery. Mild facet hypertrophy. No stenosis. L5-S1: Disc desiccation. No stenosis. IMPRESSION: 1. Postoperative changes as described. Sacral Tarlov cyst, no significant change in the interval. 2. No distinct central canal stenosis or severe neuroforaminal encroachment. No abnormal enhancement seen. Electronically signed by: Allegra Ralph MD 04/14/23 00:50 AM
[2023-04-14] MEDS: oxyCODONE HCL IR 5 MG TAB (IMMEDIATE RELEASE) PO PRN ×5 (02:00→23:24)
[2023-04-14] MEDS: HEPARIN SOD 5,000 UNIT/0.5 ML VIAL SQ SCH ×3 (05:54→20:29)
[2023-04-14 07:03] LABS: Hematocrit (blood only) 36.2 % (37.0-47.0); Hemoglobin 12.3 g/dl (12.0-16.0); Mean Corpuscular Hemoglobin 31.2 pg (25.0-34.0); Mean Platelet Volume 11.1 fL (9.4-12.4); Platelet Count 131 K/uL (130-400); RDW Standard Deviation 46.9 fL (36.4-46.3); Red Blood Count 3.94 M/uL (4.20-5.40)
[2023-04-14 07:17] LABS: Albumin Globulin Ratio 1.2 (0.9-2); Bilirubin,Total 0.4 mg/dl (0.2-1.0); Calcium 8.3 mg/dl (8.6-10.3); Creatinine Clr Calc Pharmacy 136.8 ml/min; Est GFR (African American) 121.8 ml/min; Est GFR (Non-African American) 105.1 ml/min; Globulin 2.5 gm/dl (2.5-4.0); Potassium 3.4 mmol/L (3.5-5.1); Total Protein 5.5 gm/dl (6.0-8.3)
[2023-04-14] MEDS ORDERED: INSULIN ASPART PER UNIT CHARGE SC SCH ×2 (07:30→11:30)
--- NOTE | 2023-04-14 07:37 | Hospitalist Progress Note ---
Date of Service April 14, 2023 Assessment & Plan (1) Fever: Plan: Pt is a 52 yo female with PMH of acute on chronic low back pain w/ radiculopathy on chronic opioids, anxiety/depression, and DM presenting due to a recent fall and increased weakness. She had a lumbar decompression/fusion of L2-L5 10/20/2022. Mechanical fall d/t acute on chronic weakness - hx of recurrent falls (most recent 2 days [employer]) and pain over the last 6 months; pt referred to ER after talking with PCP due to hyperglycemia - has a known large Tarlov cyst, recommended for evaluation with neurosurgery at tertiary care for any further surgical intervention if required - per pt, she was down for several hrs with most recent fall; elevated lactate, CK WNL, procal neg, but clinically volume depleted - multiple admissions for weakness and falls; PT/OT ordered Fever - Tmax 38C - BioFire negative; neg CXR; UA noninfected; blood cx pending - s/p empiric rocephin for elevated lactate and fever - no need for further antibiotics as pt's fever improved, no infectious symptoms - if further imaging needed for diagnostic clarity, avoid IV contrast as suspected anaphylactic reaction at prior admission Insulin-dependent type 2 DM - Clinically volume depleted and hyperglycemic with BSG in the 400s on admission - Home regimen of Humulin 50 units 3 times daily held - continue with basal/bolus with pharmacy glycemic consult - continue type II DM diet Liver cirrhosis - ? contributing to elevated lactate - No ascites, PT/INR WNL, no transaminitis - No acute change in management on admission; outpatient f/u recommended Chronic low back pain - Acutely worse in the setting of a fall - Home pain regimen: - Meloxicam 15 mg daily - Lidocaine patch as needed - Voltaren gel as needed - Gabapentin 800 mg 3 times daily - Oxycodone 10 mg every 4 hours as needed for breakthrough GERD - continue Protonix History of seizures - without recent seizure - patient does not feel like a seizure episode caused her fall - continue Keppra 1000 mg twice daily COPD no acute exacerbation albuterol PRN Depression/anxiety BuSpar 5 mg 4 times daily Duloxetine 60 mg at bedtime Trazodone 100 mg at bedtime DVT ppx: Heparin subcu Diet: Type II DM Disposition: med/surg Code: full (2) Morbid obesity with BMI of 40.0-44.9, adult: (3) Lumbar back pain with radiculopathy affecting left lower extremity: Admission and Anticipated Discharge Date Admission Date: April 13, 2023 Supervising Physician Co-Signing Physician Notes I personally examined the patient and verified all brennan points of history and exam, discussed case, and agree with decision making with Dr Marsh No further fevers. Only complaints are really that of her usual with weakness and pain as well as falls at home. Vitals noted, in general she is awake and alert pleasantly anxious no distress. HEENT normocephalic atraumatic mucous membranes moist. Breathing unlabored no accessory muscle use good effort. Skin shows no rashes no pallor or icterus. Neuro without focal deficits. Thal/weaknessthe fundamental problem here is that her insurance company deems her too strong to go to rehab, but her clinical situation and very clear track record over the last roughly 9 months is that she is obviously too weak to be at home in her current state. I do think with rehab she would get stronger to where the falls and the independence would not be as much of a problem, and I do think with a steady course of OMT the biomechanical part of the back pain would probably improve. Obviously the first step on this would be approval for rehab, which her insurance company seems to be absolutely unwilling to play outside of their base rules to consider. Does possibly because of shortsighted bureaucracy, possibly because with readmission rules being what they are, I doubt they have any real interest in keeping her out of the hospital if they have no investment in her current care. Subjective Pt states she is overall feeling well today but tired. Her left leg is bothering her more than usual because she "tweaked" her back. She denies feeling feverish or any infectious symptoms (N/V/D, cough, urinary burning/frequency). Review of Systems Review of Systems: As per HPI Physical Exam Physical Exam: Constitutional: well appearing, no acute distress HEENT: normocephalic, no conjunctival injection CV: RRR, no murmur, no LE edema Respiratory: CTA bilaterally. No rhonchi, wheezes, or crackles. No increased work of breathing MSK: no gross deformities noted Skin: warm, dry, no rashes Neuro: alert, oriented, no FND noted Psych: mood and affect congruent Results & Data Results & Data Vital Signs (Past 12 Hours) Vital Signs Temp Pulse Pulse Resp BP Pulse Ox O2 Del Method 04/14/23 07:08 36.6 C 73 18 106/71 96 Room Air 04/14/23 03:40 36.3 C L 79 17 106/71 94 Room Air 04/13/23 23:47 90 04/13/23 23:08 36.7 C 96 H 19 108/68 96 Room Air 04/13/23 19:39 36.4 C L 89 18 124/80 98 Room Air Resident Activity Tracking Resident Involvement: Resident Care Provided Care Provided: Adult Hospital Medicine
[2023-04-14 07:46] LABS: Basophils # (auto) 0.02 K/uL (0-0.2); Basophils % (auto) 0.3 %; Eosinophils # (auto) 0.17 K/uL (0-0.50); Eosinophils % (auto) 2.7 %; Immature Granulocytes # (auto) 0.01 K/uL (0.01-0.20); Immature Granulocytes % (auto) 0.2 %; Lymphocytes # (auto) 3.39 K/uL (1.2-3.4); Lymphocytes % (auto) 53.8 %; Monocytes # (auto) 0.38 K/uL (0.11-0.59); Neutrophils # (auto) 2.33 K/uL (1.40-6.50)
[2023-04-14] MEDS ORDERED: POTASSIUM CHLORIDE CRTAB 20 MEQ TABCR PO ONE (07:50)
[2023-04-14] MEDS ORDERED: LANTUS PER UNIT CHARGE SC ONE ×2 (08:00→21:00)
[2023-04-14] MEDS: ASPIRIN 81 MG ECTAB PO SCH (08:09)
[2023-04-14] MEDS: levETIRAcetam 500 MG TAB PO SCH ×2 (08:09→20:31)
[2023-04-14] MEDS: FAMOTIDINE 40 MG TABLET PO SCH ×2 (08:10→20:29)
[2023-04-14] MEDS: PANTOprazole 40 MG TAB PO SCH (08:10)
[2023-04-14] MEDS: busPIRone 5 MG TAB PO SCH ×4 (08:10→20:29)
[2023-04-14] MEDS: MELOXICAM 7.5 MG TAB PO SCH (08:10)
[2023-04-14] MEDS: FLUTICASONE/VILANTEROL 100/25MCG 14 PUFFS/INHALER INH SCH (08:10)
[2023-04-14] MEDS: GABAPENTIN 800 MG TAB PO SCH ×3 (08:10→20:30)
[2023-04-14] MEDS: POLYETHYLENE (MIRALAX) 17 GM PACK PO SCH ×2 (08:11→20:28)
--- NOTE | 2023-04-14 11:13 | Pharmacy Report ---
Pharmacy Glycemic Short Note 2 - Date of Service April 14, 2023 - Glycemic Short BSG Results (Last 24 hours): 04/13/23 04/13/23 04/13/23 12:00 15:54 17:54 Glucose 424 H* POC Glucose 162 H 188 H 04/13/23 04/14/23 04/14/23 19:51 06:07 07:29 Glucose 161 H POC Glucose 226 H 156 H OUTPATIENT ANTIDIABETIC REGIMEN: * U500, 50 units SC TID * HbA1c 11.1% on 04/02/23 ASSESSMENT: * 52 yo F with T2DM well known to our glycemic service admitted with fever and BSG >400 mg/dL. BSG responded well initially to a one-time IV bolus. * Will use prior recent glycemic history data to determine current inpatient needs. Of note, during prior admission, lunch BSG was consistently one of the highest of the day and consistently >250 mg/dL. Will therefore utilize a tighter Novolog regimen with breakfast. PLAN FOR INPATIENT GLYCEMIC CONTROL: * Basal insulin * Lantus 20 units SQ x1 this AM with 60-80 units tonight depending on BSG * Bolus insulin * NovoLog per scale ACHS or Q6hrs while NPO * Goal Range: Low 110 mg/dL - High 140 mg/dL * Correction Factor: 10 mg/dL/unit with breakfast, 15 mg/dL/unit at lunch, dinner HS * Carb ratio: 3 g CHO/unit with breakfast, 4 g CHO/unit with lunch, dinner, HS
[2023-04-14] MEDS ORDERED: DICLOFENAC SOD 1% GEL 100 GM TUBE EXT PRN (14:15)
--- NOTE | 2023-04-14 17:52 | Billing Data ---
Date of Service April 14, 2023 Coding Level of Care Code 80072 SUB INP/OBS CARE
[2023-04-14] MEDS: INSULIN ASPART PER UNIT CHARGE SC SCH ×2 (18:03→20:31)
[2023-04-14] MEDS: traZODone HCL 100 MG TAB PO SCH (20:28)
[2023-04-14] MEDS: MONTELUKAST SODIUM 10 MG TABLET PO SCH (20:30)
[2023-04-14] MEDS: DULoxetine HCL 60 MG CAP PO SCH (20:30)
[2023-04-14] MEDS: CYCLOBENZAPRINE HCL 10 MG TAB PO PRN (23:24)
[2023-04-15] MEDS: oxyCODONE HCL IR 5 MG TAB (IMMEDIATE RELEASE) PO PRN ×4 (05:32→23:25)
[2023-04-15] MEDS: HEPARIN SOD 5,000 UNIT/0.5 ML VIAL SQ SCH ×3 (05:32→21:32)
[2023-04-15 06:58] LABS: Basophils # (auto) 0.02 K/uL (0-0.2); Basophils % (auto) 0.3 %; Eosinophils # (auto) 0.12 K/uL (0-0.50); Eosinophils % (auto) 1.8 %; Hematocrit (blood only) 34.9 % (37.0-47.0); Hemoglobin 12.2 g/dl (12.0-16.0); Immature Granulocytes # (auto) 0.01 K/uL (0.01-0.20); Immature Granulocytes % (auto) 0.2 %; Lymphocytes # (auto) 2.17 K/uL (1.2-3.4); Mean Corpuscular Hemoglobin 31.9 pg (25.0-34.0); Mean Corpuscular Volume 91.4 fL (80.0-100.0); Mean Platelet Volume 11.5 fL (9.4-12.4); Monocytes # (auto) 0.38 K/uL (0.11-0.59); Monocytes % (auto) 5.8 %; Neutrophils # (auto) 3.88 K/uL (1.40-6.50); Neutrophils % (auto) 58.9 %; Platelet Count 120 K/uL (130-400); RDW Coefficient of Variation 13.6 % (11.5-14.5); RDW Standard Deviation 45.8 fL (36.4-46.3); Red Blood Count 3.82 M/uL (4.20-5.40); White Blood Count 6.58 K/ul (4.8-10.8)
[2023-04-15 07:11] LABS: BUN Creatinine Ratio 22.8 (10-20); Calcium 8.3 mg/dl (8.6-10.3); Creatinine Clr Calc Pharmacy 136.8 ml/min; Est GFR (African American) 121.8 ml/min; Est GFR (Non-African American) 105.1 ml/min; Potassium 3.7 mmol/L (3.5-5.1)
--- NOTE | 2023-04-15 09:54 | Pharmacy Report ---
Pharmacy Glycemic Short Note 2 - Date of Service April 15, 2023 - Glycemic Short BSG Results (Last 24 hours): 04/14/23 04/14/23 04/14/23 11:05 11:10 11:32 Glucose POC Glucose 65 L* 70 85 04/14/23 04/14/23 04/15/23 17:07 20:20 02:15 Glucose POC Glucose 186 H 86 140 H 04/15/23 04/15/23 06:07 08:02 Glucose 153 H POC Glucose 154 H OUTPATIENT ANTIDIABETIC REGIMEN: * U500: 50 units SC TID * HbA1c: 11.1% (04/02/23) ASSESSMENT: 04/15: * Received 88 units of insulin yesterday, 60 units basal + 28 units bolus. BSGs ranged from 65-186 mg/dL. * Believe hypoglycemia at lunchtime was related to too much bolus insulin. Also trended down significantly at bedtime. Fortunately, patient was asymptomatic. * Fasting BSG was 154 mg/dL this AM. Want to target a total daily basal insulin dose of around 80 units per day. Therefore, will give a 40 unit dose this AM followed by an HS scale based on BSG. * Loosened carb ratio slightly today given trend down in postprandials yesterday. Stressors remain stable. 04/14: * 52 yo F with T2DM well known to our glycemic service admitted with fever and BSG >400 mg/dL. BSG responded well initially to a one-time IV bolus. * Will use prior recent glycemic history data to determine current inpatient needs. Of note, during prior admission, lunch BSG was consistently one of the highest of the day and consistently >250 mg/dL. Will therefore utilize a tighter Novolog regimen with breakfast. PLAN FOR INPATIENT GLYCEMIC CONTROL: * Basal insulin * Lantus 40 units SC AM + 30-40 units SC HS per scale (see eMAR for more details) * Bolus insulin * NovoLog per scale ACHS or Q6hrs while NPO * Goal Range: Low 110 mg/dL - High 140 mg/dL * Correction Factor: 15 mg/dL/unit * Carb ratio: 6 g CHO/unit
[2023-04-15] MEDS: INSULIN ASPART PER UNIT CHARGE SC SCH ×4 (09:57→21:27)
--- NOTE | 2023-04-15 10:08 | Hospitalist Progress Note ---
Date of Service April 15, 2023 Assessment & Plan (1) Fever: Plan: Pt is a 52 yo female with PMH of acute on chronic low back pain w/ radiculopathy on chronic opioids, anxiety/depression, and DM presenting due to a recent fall and increased weakness. She had a lumbar decompression/fusion of L2-L5 10/20/2022. 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) and pain over the last 6 months; pt referred to ER after talking with PCP due to hyperglycemia - has a known large Tarlov cyst, recommended for evaluation with neurosurgery at tertiary care for any further surgical intervention if required - per pt, she was down for several hrs with most recent fall; elevated lactate, CK WNL, procal neg, but clinically volume depleted - multiple admissions for weakness and falls - PT/OT recommended return home although she would most likely benefit from a rehab stay Fever - Tmax 38C - BioFire negative; neg CXR; UA noninfected; blood cx pending - s/p empiric rocephin for elevated lactate and fever - no need for further antibiotics as pt's fever improved an has not returned - new onset nausea today although this may also be a chronic concern for her- supportive measures Insulin-dependent type 2 DM - Clinically volume depleted and hyperglycemic with BSG in the 400s on admission - Home regimen of Humulin 50 units 3 times daily held - continue with basal/bolus with pharmacy glycemic consult - continue type II DM diet Liver cirrhosis - ? contributing to elevated lactate - No ascites, PT/INR WNL, no transaminitis - No acute change in management on admission; outpatient f/u recommended Chronic low back pain - Acutely worse in the setting of a fall - Home pain regimen: - Meloxicam 15 mg daily - Lidocaine patch as needed - Voltaren gel as needed - Gabapentin 800 mg 3 times daily - Oxycodone 10 mg every 4 hours as needed for breakthrough GERD - continue Protonix History of seizures - without recent seizure - patient does not feel like a seizure episode caused her fall - continue Keppra 1000 mg twice daily COPD no acute exacerbation albuterol PRN Depression/anxiety BuSpar 5 mg 4 times daily Duloxetine 60 mg at bedtime Trazodone 100 mg at bedtime DVT ppx: Heparin subcu Diet: Type II DM Disposition: med/surg Code: full (2) Morbid obesity with BMI of 40.0-44.9, adult: (3) Lumbar back pain with radiculopathy affecting left lower extremity: Admission and Anticipated Discharge Date Admission Date: April 13, 2023 Supervising Physician Co-Signing Physician Notes I personally examined the patient and verified all brennan points of history and exam, discussed case, and agree with decision making with Dr Marsh worried about being home. has not talked to [place] tiedown operator yet - but notes she will call later today.. Vitals noted, in general she is awake and alert pleasantly anxious no distress. HEENT normocephalic atraumatic mucous membranes moist. Breathing unlabored no accessory muscle use good effort. Skin shows no rashes no pallor or icterus. Neuro without focal deficits. Thal/weaknessthe fundamental problem here is that her insurance company deems her too strong to go to rehab, but her clinical situation and very clear track record over the last roughly 9 months is that she is obviously too weak to be at home in her current state. I do think with rehab she would get stronger to where the falls and the independence would not be as much of a problem, and I do think with a steady course of OMT the biomechanical part of the back pain would probably improve. Obviously the first step on this would be approval for rehab, which her insurance company seems to be absolutely unwilling to play outside of their base rules to consider. possibly because of shortsighted bureaucracy, possibly because with readmission rules being what they are, I doubt they have any real interest in keeping her out of the hospital if they have no investment in her current care. asked her to call her conciege and concisely explain "your rules say i'm too well to qualify for rehab, but my track record says i'm too weak to be at home" - case management notes there's essentially zero possibility of getting her qualified for rehab via regular referral process Subjective Pt states that her stomach is upset this morning. She takes promethazine and zofran at home for nausea. She denies fevers, vomiting, and diarrhea. Review of Systems Review of Systems: As per HPI Physical Exam Physical Exam: Constitutional: well appearing, no acute distress HEENT: normocephalic, no conjunctival injection CV: RRR, no murmur, no LE edema Respiratory: CTA bilaterally. No rhonchi, wheezes, or crackles. No increased work of breathing GI: soft, nondistended, mildly tender on left side, + bowel sounds MSK: no gross deformities noted Skin: warm, dry, no rashes Neuro: alert, oriented, no FND noted Psych: mood and affect congruent Results & Data Results & Data Vital Signs (Past 12 Hours) Vital Signs Temp Pulse Resp BP Pulse Ox O2 Del Method 04/15/23 07:38 36.9 C 76 17 108/69 95 Room Air Resident Activity Tracking Resident Involvement: Resident Care Provided Care Provided: Adult Hospital Medicine
[2023-04-15] MEDS: LANTUS PER UNIT CHARGE SC SCH ×2 (10:55→21:27)
[2023-04-15] MEDS: ASPIRIN 81 MG ECTAB PO SCH (10:57)
[2023-04-15] MEDS: busPIRone 5 MG TAB PO SCH ×4 (10:58→21:30)
[2023-04-15] MEDS: FAMOTIDINE 40 MG TABLET PO SCH ×2 (10:58→21:30)
[2023-04-15] MEDS: FLUTICASONE/VILANTEROL 100/25MCG 14 PUFFS/INHALER INH SCH (10:59)
[2023-04-15] MEDS: GABAPENTIN 800 MG TAB PO SCH ×3 (10:59→21:31)
[2023-04-15] MEDS: MELOXICAM 7.5 MG TAB PO SCH (11:00)
[2023-04-15] MEDS: levETIRAcetam 500 MG TAB PO SCH ×2 (11:00→21:31)
[2023-04-15] MEDS: PANTOprazole 40 MG TAB PO SCH (11:01)
[2023-04-15] MEDS: POLYETHYLENE (MIRALAX) 17 GM PACK PO SCH ×2 (11:01→21:31)
--- NOTE | 2023-04-15 19:08 | Billing Data ---
Date of Service April 15, 2023 Coding Level of Care Code 55341 SUB INP/OBS CARE
[2023-04-15] MEDS: DULoxetine HCL 60 MG CAP PO SCH (21:30)
[2023-04-15] MEDS: MONTELUKAST SODIUM 10 MG TABLET PO SCH (21:31)
[2023-04-15] MEDS: traZODone HCL 100 MG TAB PO SCH (21:32)
--- NOTE | 2023-04-15 22:43 | Electrocardiogram Report ---
Test Reason : Blood Pressure : / mmHG Vent. Rate : 089 BPM Atrial Rate : 089 BPM P-R Int : 164 ms QRS Dur : 082 ms QT Int : 388 ms P-R-T Axes : 035 -14 013 degrees QTc Int : 473 ms Normal sinus rhythm Cannot rule out Anterior infarct (cited on or before 12-FEB-2023) Abnormal ECG When compared with ECG of 01-APR-2023 20:11, Fusion complexes are no longer Present Vent. rate has decreased BY 44 BPM Nonspecific T wave abnormality now evident in Anterior leads Confirmed by Brendan Thompson ([id number]) on 04/15/2023 10:43:10 PM Referred By: Aneudy Pérez Confirmed By:Brendan Thompson
[2023-04-15] MEDS: CYCLOBENZAPRINE HCL 10 MG TAB PO PRN (23:25)
[2023-04-16 00:51] LABS: Adenovirus F 40/41 PCR Not Detected (NotDetected); Astrovirus PCR Not Detected (NotDetected); Campylobacter PCR Not Detected (NotDetected); Cryptosporidium PCR Not Detected (NotDetected); Cyclospora cayetanensis PCR Not Detected (NotDetected); Entamoeba histolytica PCR Not Detected (NotDetected); Enteroaggregative E.coli(EAEC) Not Detected (NotDetected); Enteropathogenic E.coli (EPEC) Not Detected (NotDetected); Enterotoxigenic E.coli (ETEC) Not Detected (NotDetected); Giardia lamblia PCR Not Detected (NotDetected); Norovirus GI/GII PCR Not Detected (NotDetected); Plesiomonas shigelloides PCR Not Detected (NotDetected); Rotavirus A PCR Not Detected (NotDetected); Salmonella PCR Not Detected (NotDetected); Sapovirus PCR Not Detected (NotDetected); Shiga-like Toxin E.coli (STEC) Not Detected (NotDetected); Shigella/Enteroinvasive E.coli Not Detected (NotDetected); Vibrio cholerae PCR Not Detected (NotDetected); Vibrio species PCR Not Detected (NotDetected); Yersinia enterocolitica PCR Not Detected (NotDetected)
[2023-04-16] MEDS ORDERED: LOPERAMIDE HCL 2 MG CAP PO STA (02:57)
[2023-04-16] MEDS: oxyCODONE HCL IR 5 MG TAB (IMMEDIATE RELEASE) PO PRN ×5 (04:01→22:46)
[2023-04-16] MEDS: HEPARIN SOD 5,000 UNIT/0.5 ML VIAL SQ SCH ×3 (06:15→21:31)
[2023-04-16 07:40] LABS: Basophils # (auto) 0.01 K/uL (0-0.2); Basophils % (auto) 0.1 %; Eosinophils # (auto) 0.11 K/uL (0-0.50); Eosinophils % (auto) 1.4 %; Hematocrit (blood only) 38.4 % (37.0-47.0); Hemoglobin 13.3 g/dl (12.0-16.0); Immature Granulocytes # (auto) 0.02 K/uL (0.01-0.20); Immature Granulocytes % (auto) 0.3 %; Lymphocytes # (auto) 1.85 K/uL (1.2-3.4); Lymphocytes % (auto) 23.9 %; Mean Corpuscular Hemoglobin 31.5 pg (25.0-34.0); Mean Corpuscular Hgb Conc 34.6 g/dL (32.0-36.0); Mean Platelet Volume 11.3 fL (9.4-12.4); Monocytes # (auto) 0.44 K/uL (0.11-0.59); Monocytes % (auto) 5.7 %; Neutrophils # (auto) 5.31 K/uL (1.40-6.50); Neutrophils % (auto) 68.6 %; Platelet Count 127 K/uL (130-400); RDW Coefficient of Variation 13.8 % (11.5-14.5); RDW Standard Deviation 45.8 fL (36.4-46.3); Red Blood Count 4.22 M/uL (4.20-5.40); White Blood Count 7.74 K/ul (4.8-10.8)
[2023-04-16 07:52] LABS: BUN Creatinine Ratio 18.5 (10-20); Calcium 8.7 mg/dl (8.6-10.3); Creatinine Clr Calc Pharmacy 144.4 ml/min; Potassium 3.7 mmol/L (3.5-5.1)
[2023-04-16] MEDS ORDERED: SODIUM CHLORIDE 0.9% 1000ML 500 ML IV ONE (08:41)
[2023-04-16] MEDS: MELOXICAM 7.5 MG TAB PO SCH (09:11)
[2023-04-16] MEDS: PANTOprazole 40 MG TAB PO SCH (09:11)
[2023-04-16] MEDS: ASPIRIN 81 MG ECTAB PO SCH (09:11)
[2023-04-16] MEDS: FAMOTIDINE 40 MG TABLET PO SCH ×2 (09:12→21:30)
[2023-04-16] MEDS: busPIRone 5 MG TAB PO SCH ×4 (09:12→21:32)
[2023-04-16] MEDS: GABAPENTIN 800 MG TAB PO SCH ×3 (09:13→21:32)
[2023-04-16] MEDS: FLUTICASONE/VILANTEROL 100/25MCG 14 PUFFS/INHALER INH SCH (09:13)
[2023-04-16] MEDS: levETIRAcetam 500 MG TAB PO SCH ×2 (09:13→21:30)
[2023-04-16] MEDS: LANTUS PER UNIT CHARGE SC SCH ×2 (09:14→21:37)
[2023-04-16] MEDS: INSULIN ASPART PER UNIT CHARGE SC SCH ×4 (09:14→21:33)
[2023-04-16] MEDS: POLYETHYLENE (MIRALAX) 17 GM PACK PO SCH ×2 (09:15→21:31)
--- NOTE | 2023-04-16 09:25 | Hospitalist Progress Note ---
Date of Service April 16, 2023 Assessment & Plan (1) Fever: Plan: Pt is a 52 yo female with PMH of acute on chronic low back pain w/ radiculopathy on chronic opioids, anxiety/depression, and DM presenting due to a recent fall and increased weakness. She had a lumbar decompression/fusion of L2-L5 10/20/2022. 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) and pain over the last 6 months; pt referred to ER after talking with PCP due to hyperglycemia - has a known large Tarlov cyst, recommended for evaluation with neurosurgery at tertiary care for any further surgical intervention if required - per pt, she was down for several hrs with most recent fall; elevated lactate, CK WNL, procal neg, but clinically volume depleted - multiple admissions for weakness and falls - PT/OT recommended return home although she would most likely benefit from a rehab stay - pt has reached out to her healthcare liaison concerning insurance/rehab stays- awaiting call back/further information Fever - Tmax 38C - respiratory bioFire negative; neg CXR; UA noninfected; blood cx neg - s/p empiric rocephin for elevated lactate and fever; no need for further antibiotics as pt's fever improved and has not returned - nausea improving, although diarrhea occurred overnight (stool PCR neg); continue supportive measures Insulin-dependent type 2 DM - Clinically volume depleted and hyperglycemic with BSG in the 400s on admission - Home regimen of Humulin 50 units 3 times daily held - continue with basal/bolus with pharmacy glycemic consult - continue type II DM diet Liver cirrhosis - ? contributing to elevated lactate - No ascites, PT/INR WNL, no transaminitis - No acute change in management on admission; outpatient f/u recommended Chronic low back pain - Acutely worse in the setting of a fall - Home pain regimen: - Meloxicam 15 mg daily - Lidocaine patch as needed - Voltaren gel as needed - Gabapentin 800 mg 3 times daily - Oxycodone 10 mg every 4 hours as needed for breakthrough GERD - continue Protonix History of seizures - without recent seizure - patient does not feel like a seizure episode caused her fall - continue Keppra 1000 mg twice daily COPD no acute exacerbation albuterol PRN Depression/anxiety BuSpar 5 mg 4 times daily Duloxetine 60 mg at bedtime Trazodone 100 mg at bedtime DVT ppx: Heparin subcu Diet: Type II DM Disposition: med/surg Code: full (2) Morbid obesity with BMI of 40.0-44.9, adult: (3) Lumbar back pain with radiculopathy affecting left lower extremity: Admission and Anticipated Discharge Date Admission Date: April 13, 2023 Supervising Physician Co-Signing Physician Notes I personally examined the patient and verified all brennan points of history and exam, discussed case, and agree with decision making with Dr Marsh called insurance rn observation - she noted she would talk to her again tuesday. Vitals noted, in general she is awake and alert pleasantly anxious no distress. HEENT normocephalic atraumatic mucous membranes moist. Breathing unlabored no accessory muscle use good effort. Skin shows no rashes no pallor or icterus. Neuro without focal deficits. Fall/weaknessthe fundamental problem here is that her insurance company deems her too strong to go to rehab, but her clinical situation and very clear track record over the last roughly 9 months is that she is obviously too weak to be at home in her current state. I do think with rehab she would get stronger to where the falls and the independence would not be as much of a problem, and I do think with a steady course of OMT the biomechanical part of the back pain would probably improve. Obviously the first step on this would be approval for rehab, which her insurance company seems to be absolutely unwilling to play outside of their base rules to consider. possibly because of shortsighted bureaucracy, possibly because with readmission rules being what they are, I doubt they have any real interest in keeping her out of the hospital if they have no investment in her current care. i have zero confidence her rn observation will come through with an [id number] approval for rehab. case management idea of a specific in-home PT ([facility]) is solid - have seen that outfit do well with very difficult deconditioning type situations before. custodial pt working on in-home caregiver 8hrs a day would be helpful but likely will take a while to truly achieve this Subjective Pt with episodes of diarrhea overnight. C. dif neg. Imodium appears to have helped. Mildly painful abdomen per pt. No nausea, vomiting, fevers, or hematochezia. Review of Systems Review of Systems: As per HPI Physical Exam Physical Exam: Constitutional: well appearing, no acute distress HEENT: normocephalic, no conjunctival injection CV: RRR, no murmur, no LE edema Respiratory: CTA bilaterally. No rhonchi, wheezes, or crackles. No increased work of breathing GI: soft, nondistended, minimal tenderness of LLQ and RLQ, + bowel sounds MSK: no gross deformities noted Skin: warm, dry, no rashes Neuro: alert, oriented, no FND noted Psych: mood and affect congruent Results & Data Results & Data Vital Signs (Past 12 Hours) Vital Signs Temp Pulse Resp BP Pulse Ox Pulse Ox O2 Del Method 04/16/23 07:45 97/62 L 04/16/23 07:17 36.5 C 83 16 89/53 L 96 Room Air 04/15/23 21:30 Room Air 04/15/23 21:30 96 04/15/23 21:31 37.0 C 95 H 16 123/70 96 Room Air O2 Del Method 04/16/23 07:45 04/16/23 07:17 04/15/23 21:30 04/15/23 21:30 Room Air 04/15/23 21:31 Resident Activity Tracking Resident Involvement: Resident Care Provided Care Provided: Adult Hospital Medicine
--- NOTE | 2023-04-16 16:42 | Billing Data ---
Date of Service April 16, 2023 Coding Level of Care Code 77650 SUB INP/OBS CARE
[2023-04-16] MEDS: DULoxetine HCL 60 MG CAP PO SCH (21:30)
[2023-04-16] MEDS: MONTELUKAST SODIUM 10 MG TABLET PO SCH (21:31)
[2023-04-16] MEDS: traZODone HCL 100 MG TAB PO SCH (21:31)
[2023-04-17] MEDS: HEPARIN SOD 5,000 UNIT/0.5 ML VIAL SQ SCH ×3 (06:09→21:09)
[2023-04-17] MEDS: oxyCODONE HCL IR 5 MG TAB (IMMEDIATE RELEASE) PO PRN ×4 (06:11→21:08)
[2023-04-17 06:19] LABS: Hematocrit (blood only) 37.3 % (37.0-47.0); Hemoglobin 12.7 g/dl (12.0-16.0); Mean Corpuscular Hemoglobin 31.4 pg (25.0-34.0); Mean Corpuscular Volume 92.1 fL (80.0-100.0); Mean Platelet Volume 11.6 fL (9.4-12.4); Platelet Count 115 K/uL (130-400); RDW Coefficient of Variation 13.7 % (11.5-14.5); RDW Standard Deviation 46.8 fL (36.4-46.3); Red Blood Count 4.05 M/uL (4.20-5.40); White Blood Count 5.33 K/ul (4.8-10.8)
[2023-04-17 06:43] LABS: Creatinine Clr Calc Pharmacy 127.9 ml/min; Est GFR (African American) 119.1 ml/min; Est GFR (Non-African American) 102.8 ml/min; Potassium 3.8 mmol/L (3.5-5.1)
--- NOTE | 2023-04-17 08:37 | Hospitalist Progress Note ---
Date of Service April 17, 2023 Assessment & Plan (1) Fever: Plan: Pt is a 52 yo female with PMH of acute on chronic low back pain w/ radiculopathy on chronic opioids, anxiety/depression, and DM presenting due to a recent fall and increased weakness. She had a lumbar decompression/fusion of L2-L5 10/20/2022. 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) and pain over the last 6 months; pt referred to ER after talking with PCP due to hyperglycemia - has a known large Tarlov cyst, recommended for evaluation with neurosurgery at tertiary care for any further surgical intervention if required - per pt, she was down for several hrs with most recent fall; elevated lactate, CK WNL, procal neg, but clinically volume depleted - multiple admissions for weakness and falls - PT/OT recommended return home although she would most likely benefit from a rehab stay - pt has reached out to her healthcare liaison concerning insurance/rehab stays- awaiting further discussion tomorrow Fever - Tmax 38C - respiratory bioFire negative; neg CXR; UA noninfected; blood cx neg - s/p empiric rocephin for elevated lactate and fever; no need for further antibiotics as pt's fever improved and has not returned - nausea and diarrhea have improved with supportive measures Insulin-dependent type 2 DM - Clinically volume depleted and hyperglycemic with BSG in the 400s on admission - Home regimen of Humulin 50 units 3 times daily held - continue with basal/bolus with pharmacy glycemic consult - continue type II DM diet Liver cirrhosis - ? contributing to elevated lactate - No ascites, PT/INR WNL, no transaminitis - No acute change in management on admission; outpatient f/u recommended Chronic low back pain - stable, pain well controlled - Home pain regimen: - Meloxicam 15 mg daily - Lidocaine patch as needed - Voltaren gel as needed - Gabapentin 800 mg 3 times daily - Oxycodone 10 mg every 4 hours as needed for breakthrough GERD - continue Protonix History of seizures - without recent seizure - patient does not feel like a seizure episode caused her fall - continue Keppra 1000 mg twice daily COPD - no acute exacerbation - albuterol PRN Depression/anxiety - buSpar 5 mg 4 times daily - duloxetine 60 mg at bedtime - trazodone 100 mg at bedtime DVT ppx: Heparin subcu Diet: Type II DM Disposition: med/surg Code: full (2) Morbid obesity with BMI of 40.0-44.9, adult: (3) Lumbar back pain with radiculopathy affecting left lower extremity: Admission and Anticipated Discharge Date Admission Date: April 13, 2023 Supervising Physician Co-Signing Physician Notes I personally examined the patient and verified all brennan points of history and exam, discussed case, and agree with decision making with Dr Marsh got [facility] order. no new complaints. will talk w insurance motel manager again tomorrow. Vitals noted, in general she is awake and alert pleasantly anxious no distress. HEENT normocephalic atraumatic mucous membranes moist. Breathing unlabored no accessory muscle use good effort. Skin shows no rashes no pallor or icterus. Neuro without focal deficits. Fall/weaknessthe fundamental problem here is that her insurance company deems her too strong to go to rehab, but her clinical situation and very clear track record over the last roughly 9 months is that she is obviously too weak to be at home in her current state. I do think with rehab she would get stronger to where the falls and the independence would not be as much of a problem, and I do think with a steady course of OMT the biomechanical part of the back pain would probably improve. Obviously the first step on this would be approval for rehab, which her insurance company seems to be absolutely unwilling to play outside of their base rules to consider. possibly because of shortsighted bureaucracy, possibly because with readmission rules being what they are, I doubt they have any real interest in keeping her out of the hospital if they have no investment in her current care. i have zero confidence her motel manager will come through with an [id number] approval for rehab. case management idea of a specific in-home PT ([facility]) is solid - have seen that outfit do well with very difficult deconditioning type situations before. nursing home pt working on in-home caregiver 8hrs a day would be helpful but likely will take a while to truly achieve this. dispo uncertain Subjective Pt states no further diarrhea. No nausea or vomiting but still doesn't feel 100%. She was concerned about her BPs yesterday and was happier to see it was higher this morning. She has plans to talk with her healthcare liaison tomorrow. Review of Systems Review of Systems: As per HPI Physical Exam Physical Exam: Constitutional: well appearing, no acute distress HEENT: normocephalic, no conjunctival injection CV: RRR, no murmur, no LE edema Respiratory: CTA bilaterally. No rhonchi, wheezes, or crackles. No increased work of breathing GI: soft, nondistended, minimally tender, + bowel sounds MSK: no gross deformities noted Skin: warm, dry, no rashes Neuro: alert, oriented, no FND noted Psych: mood and affect congruent Results & Data Results & Data Vital Signs (Past 12 Hours) Vital Signs Temp Pulse Resp BP Pulse Ox O2 Del Method 04/17/23 07:39 36.8 C 68 18 110/71 94 Room Air Resident Activity Tracking Resident Involvement: Resident Care Provided Care Provided: Adult Hospital Medicine
[2023-04-17] MEDS: INSULIN ASPART PER UNIT CHARGE SC SCH ×4 (08:43→21:07)
[2023-04-17] MEDS: LANTUS PER UNIT CHARGE SC SCH ×2 (08:43→21:07)
[2023-04-17] MEDS: MELOXICAM 7.5 MG TAB PO SCH (08:44)
[2023-04-17] MEDS: ASPIRIN 81 MG ECTAB PO SCH (08:44)
[2023-04-17] MEDS: levETIRAcetam 500 MG TAB PO SCH ×2 (08:44→21:10)
[2023-04-17] MEDS: FAMOTIDINE 40 MG TABLET PO SCH ×2 (08:44→21:11)
[2023-04-17] MEDS: PANTOprazole 40 MG TAB PO SCH (08:45)
[2023-04-17] MEDS: busPIRone 5 MG TAB PO SCH ×4 (08:45→21:08)
[2023-04-17] MEDS: GABAPENTIN 800 MG TAB PO SCH ×3 (08:45→21:09)
[2023-04-17] MEDS: FLUTICASONE/VILANTEROL 100/25MCG 14 PUFFS/INHALER INH SCH (08:45)
[2023-04-17] MEDS: POLYETHYLENE (MIRALAX) 17 GM PACK PO SCH ×2 (08:46→21:10)
--- NOTE | 2023-04-17 17:06 | Billing Data ---
Date of Service April 17, 2023 Coding Level of Care Code 02947 SUB INP/OBS CARE
[2023-04-17] MEDS: DULoxetine HCL 60 MG CAP PO SCH (21:08)
[2023-04-17] MEDS: traZODone HCL 100 MG TAB PO SCH (21:09)
[2023-04-17] MEDS: MONTELUKAST SODIUM 10 MG TABLET PO SCH (21:11)
[2023-04-17] MEDS: CYCLOBENZAPRINE HCL 10 MG TAB PO PRN (21:14)
[2023-04-18] MEDS: oxyCODONE HCL IR 5 MG TAB (IMMEDIATE RELEASE) PO PRN ×5 (02:33→20:12)
[2023-04-18] MEDS: HEPARIN SOD 5,000 UNIT/0.5 ML VIAL SQ SCH ×3 (06:02→21:54)
[2023-04-18] MEDS: PANTOprazole 40 MG TAB PO SCH (08:10)
[2023-04-18] MEDS: levETIRAcetam 500 MG TAB PO SCH ×2 (08:10→21:53)
[2023-04-18] MEDS: ASPIRIN 81 MG ECTAB PO SCH (08:10)
[2023-04-18] MEDS: FAMOTIDINE 40 MG TABLET PO SCH ×2 (08:11→21:53)
[2023-04-18] MEDS: MELOXICAM 7.5 MG TAB PO SCH (08:11)
[2023-04-18] MEDS: busPIRone 5 MG TAB PO SCH ×4 (08:11→21:54)
[2023-04-18] MEDS: GABAPENTIN 800 MG TAB PO SCH ×3 (08:11→21:52)
[2023-04-18] MEDS: FLUTICASONE/VILANTEROL 100/25MCG 14 PUFFS/INHALER INH SCH (08:11)
[2023-04-18] MEDS: POLYETHYLENE (MIRALAX) 17 GM PACK PO SCH ×2 (08:12→21:55)
[2023-04-18] MEDS: LANTUS PER UNIT CHARGE SC SCH (08:25)
[2023-04-18] MEDS: INSULIN ASPART PER UNIT CHARGE SC SCH ×4 (08:25→22:03)
--- NOTE | 2023-04-18 12:45 | Hospitalist Progress Note ---
Date of Service April 18, 2023 Assessment & Plan (1) Fever: Plan: Pt is a 52 yo female with PMH of acute on chronic low back pain w/ radiculopathy on chronic opioids, anxiety/depression, and DM presenting due to a recent fall and increased weakness. She had a lumbar decompression/fusion of L2-L5 10/20/2022. 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) and pain over the last 6 months; pt referred to ER after talking with PCP due to hyperglycemia - has a known large Tarlov cyst, recommended for evaluation with neurosurgery at tertiary care for any further surgical intervention if required - per pt, she was down for several hrs with most recent fall; elevated lactate, CK WNL, procal neg, but clinically volume depleted - multiple admissions for weakness and falls - PT/OT recommended return home although she would most likely benefit from a rehab stay - awaiting contact from pt's healthcare insurance/liaison hopefully today concerning rehab potential Fever - Tmax 38C - respiratory bioFire negative; neg CXR; UA noninfected; blood cx neg - s/p empiric rocephin for elevated lactate and fever; no need for further antibiotics as pt's fever improved and has not returned - nausea and diarrhea have improved with supportive measures Insulin-dependent type 2 DM - Clinically volume depleted and hyperglycemic with BSG in the 400s on admission - Home regimen of Humulin 50 units 3 times daily held - continue with basal/bolus with pharmacy glycemic consult - continue type II DM diet Liver cirrhosis - ? contributing to elevated lactate - No ascites, PT/INR WNL, no transaminitis - No acute change in management on admission; outpatient f/u recommended Chronic low back pain - stable, pain well controlled - Home pain regimen: - Meloxicam 15 mg daily - Lidocaine patch as needed - Voltaren gel as needed - Gabapentin 800 mg 3 times daily - Oxycodone 10 mg every 4 hours as needed for breakthrough GERD - continue Protonix History of seizures - without recent seizure - patient does not feel like a seizure episode caused her fall - continue Keppra 1000 mg twice daily COPD - no acute exacerbation - albuterol PRN Depression/anxiety - buspar 5 mg 4 times daily - duloxetine 60 mg at bedtime - trazodone 100 mg at bedtime DVT ppx: Heparin subcu Diet: Type II DM Disposition: med/surg Code: full (2) Morbid obesity with BMI of 40.0-44.9, adult: (3) Lumbar back pain with radiculopathy affecting left lower extremity: Admission and Anticipated Discharge Date Admission Date: April 13, 2023 Supervising Physician Co-Signing Physician Notes ATTESTATION I also saw the patient and confirmed brennan portions of the history and exam. I agree with the impression and plan in the resident documentation, and as summarized below. EXAM 108/72, 87, 16, 36.9, 90% room air Pleasant. No acute distress. Heart is regular, mildly tachycardic Respirations are nonlabored, lungs are clear IMPRESSION & PLAN Mechanical fall secondary to acute on chronic weakness PT/OT consultations appreciated. Awaiting logistics from insurance pending authorization for inpatient rehabilitation Fever, resolved without recurrence Respiratory bio fire negative, chest x-ray clear, urinalysis unremarkable, blood cultures negative Monitor for recurrence Insulin-dependent diabetes Improved glycemic control since admission Additional per resident documentation Subjective Pt doing well this morning. Her abdomen still slightly tender but no more episodes of diarrhea. No new symptoms. Review of Systems Review of Systems: As per HPI Physical Exam Physical Exam: Constitutional: well appearing, no acute distress HEENT: normocephalic, no conjunctival injection CV: RRR, no murmur, no LE edema Respiratory: CTA bilaterally. No rhonchi, wheezes, or crackles. No increased work of breathing GI: soft, nondistended, minimal tenderness of RLQ, + bowel sounds MSK: no gross deformities noted Skin: warm, dry, no rashes Neuro: alert, oriented, no FND noted Psych: mood and affect congruent Results & Data Results & Data Vital Signs (Past 12 Hours) Vital Signs Temp Pulse Resp BP Pulse Ox O2 Del Method 04/18/23 07:44 36.6 C 78 16 109/67 98 Room Air Resident Activity Tracking Resident Involvement: Resident Care Provided Care Provided: Adult Hospital Medicine
--- NOTE | 2023-04-18 12:53 | Pharmacy Report ---
Pharmacy Glycemic Short Note 2 - Date of Service April 18, 2023 - Glycemic Short BSG Results (Last 24 hours): 04/17/23 04/17/23 04/18/23 16:56 20:40 07:57 POC Glucose 260 H 247 H 248 H 04/18/23 11:57 POC Glucose 140 H OUTPATIENT ANTIDIABETIC REGIMEN: * U500: 50 units SC TID * HbA1c: 11.1% (04/02/23) ASSESSMENT: 04/18/23 * Patient's BSGs yesterday [id number] mg/dL and today are 248 - 140 mg /dL. * Patient received 118 units of insulin yesterday (80 units of basal 38 units of bolus). * Continue with 80 units of basal for now. based upon previous data, this is typically the basal dose necessary for patient. Doses have been fluctuating this admission so may be the reason for slightly higher basal today. * Tighten CR since BSGs trended upwards yesterday. 04/15: * Received 88 units of insulin yesterday, 60 units basal + 28 units bolus. BSGs ranged from 65-186 mg/dL. * Believe hypoglycemia at lunchtime was related to too much bolus insulin. Also trended down significantly at bedtime. Fortunately, patient was asymptomatic. * Fasting BSG was 154 mg/dL this AM. Want to target a total daily basal insulin dose of around 80 units per day. Therefore, will give a 40 unit dose this AM followed by an HS scale based on BSG. * Loosened carb ratio slightly today given trend down in postprandials yesterday. Stressors remain stable. 04/14: * 52 yo F with T2DM well known to our glycemic service admitted with fever and BSG >400 mg/dL. BSG responded well initially to a one-time IV bolus. * Will use prior recent glycemic history data to determine current inpatient needs. Of note, during prior admission, lunch BSG was consistently one of the highest of the day and consistently >250 mg/dL. Will therefore utilize a tighter Novolog regimen with breakfast. PLAN FOR INPATIENT GLYCEMIC CONTROL: * Basal insulin * Lantus 40 units SC BID * Bolus insulin * NovoLog per scale ACHS or Q6hrs while NPO * Goal Range: Low 110 mg/dL - High 140 mg/dL * Correction Factor: 15 mg/dL/unit * Carb ratio: 5 g CHO/unit
[2023-04-18] MEDS ORDERED: LANTUS PER UNIT CHARGE SC SCH (21:00)
[2023-04-18] MEDS: traZODone HCL 100 MG TAB PO SCH (21:53)
[2023-04-18] MEDS: DULoxetine HCL 60 MG CAP PO SCH (21:53)
[2023-04-18] MEDS: MONTELUKAST SODIUM 10 MG TABLET PO SCH (21:54)
[2023-04-19] MEDS: oxyCODONE HCL IR 5 MG TAB (IMMEDIATE RELEASE) PO PRN ×6 (00:44→22:55)
[2023-04-19] MEDS: HEPARIN SOD 5,000 UNIT/0.5 ML VIAL SQ SCH ×3 (05:21→21:05)
--- NOTE | 2023-04-19 06:51 | Hospitalist Progress Note ---
Date of Service April 19, 2023 Assessment & Plan (1) Fever: Plan: Pt is a 52 yo female with PMH of acute on chronic low back pain w/ radiculopathy on chronic opioids, anxiety/depression, and DM presenting due to a recent fall and increased weakness. She had a lumbar decompression/fusion of L2-L5 10/20/2022. 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) and pain over the last 6 months; pt referred to ER after talking with PCP due to hyperglycemia - has a known large Tarlov cyst, recommended for evaluation with neurosurgery at tertiary care for any further surgical intervention if required - per pt, she was down for several hrs with most recent fall; elevated lactate, CK WNL, procal neg, but clinically volume depleted - multiple admissions for weakness and falls - PT/OT recommended return home although she would most likely benefit from a rehab stay - awaiting further word from insurance- most likely will be unable to have inpatient rehab approved; aiming for possible home health? Fever - Tmax 38C - respiratory bioFire negative; neg CXR; UA noninfected; blood cx neg - s/p empiric rocephin for elevated lactate and fever; no need for further antibiotics as pt's fever improved and has not returned - nausea and diarrhea have improved with supportive measures Insulin-dependent type 2 DM - Clinically volume depleted and hyperglycemic with BSG in the 400s on admission - Home regimen of Humulin 50 units 3 times daily held - continue with basal/bolus with pharmacy glycemic consult - continue type II DM diet Liver cirrhosis - ? contributing to elevated lactate - No ascites, PT/INR WNL, no transaminitis - No acute change in management on admission; outpatient f/u recommended Chronic low back pain - stable, pain well controlled - Home pain regimen: - Meloxicam 15 mg daily - Lidocaine patch as needed - Voltaren gel as needed - Gabapentin 800 mg 3 times daily - Oxycodone 10 mg every 4 hours as needed for breakthrough GERD - continue Protonix History of seizures - without recent seizure - patient does not feel like a seizure episode caused her fall - continue Keppra 1000 mg twice daily COPD - no acute exacerbation - albuterol PRN Depression/anxiety - buspar 5 mg 4 times daily - duloxetine 60 mg at bedtime - trazodone 100 mg at bedtime DVT ppx: Heparin subcu Diet: Type II DM Disposition: med/surg Code: full (2) Morbid obesity with BMI of 40.0-44.9, adult: (3) Lumbar back pain with radiculopathy affecting left lower extremity: Admission and Anticipated Discharge Date Admission Date: April 13, 2023 Supervising Physician Co-Signing Physician Notes ATTESTATION I also saw the patient and confirmed brennan portions of the history and exam. I agree with the impression and plan in the resident documentation, and as summarized below. EXAM 111/72, 82, 16, 36.4, 92% room air Pleasant. No acute distress. Heart is regular, mildly tachycardic Respirations are nonlabored, lungs are clear IMPRESSION & PLAN Mechanical fall secondary to acute on chronic weakness PT/OT consultations appreciated. Awaiting logistics from insurance for disposition Fever, resolved without recurrence Respiratory bio fire negative, chest x-ray clear, urinalysis unremarkable, blood cultures negative Monitor for recurrence Insulin-dependent diabetes Improved glycemic control since admission Additional per resident documentation Subjective Pt states she talked to her insurance liaison yesterday. They are "working on it." She feels ok today overall. No new symptoms. Review of Systems Review of Systems: As per HPI Physical Exam Physical Exam: Constitutional: well appearing, no acute distress HEENT: normocephalic, no conjunctival injection CV: clinically well perfused Respiratory: No increased work of breathing MSK: no gross deformities noted Skin: warm, dry, no rashes Neuro: alert, oriented, no FND noted Psych: mood and affect congruent Results & Data Results & Data Vital Signs (Past 12 Hours) Vital Signs Temp Pulse Resp BP Pulse Ox O2 Del Method 04/18/23 20:38 36.9 C 80 16 115/70 98 Room Air 04/18/23 20:00 Room Air Resident Activity Tracking Resident Involvement: Resident Care Provided Care Provided: Adult Hospital Medicine
[2023-04-19] MEDS: FLUTICASONE/VILANTEROL 100/25MCG 14 PUFFS/INHALER INH SCH (08:29)
[2023-04-19] MEDS: CYCLOBENZAPRINE HCL 10 MG TAB PO PRN (08:29)
[2023-04-19] MEDS: FAMOTIDINE 40 MG TABLET PO SCH ×2 (08:30→21:44)
[2023-04-19] MEDS: busPIRone 5 MG TAB PO SCH ×4 (08:30→21:02)
[2023-04-19] MEDS: PANTOprazole 40 MG TAB PO SCH (08:30)
[2023-04-19] MEDS: GABAPENTIN 800 MG TAB PO SCH ×3 (08:30→21:03)
[2023-04-19] MEDS: ASPIRIN 81 MG ECTAB PO SCH (08:30)
[2023-04-19] MEDS: MELOXICAM 7.5 MG TAB PO SCH (08:30)
[2023-04-19] MEDS: levETIRAcetam 500 MG TAB PO SCH ×2 (08:30→21:04)
[2023-04-19] MEDS: POLYETHYLENE (MIRALAX) 17 GM PACK PO SCH ×2 (08:31→21:05)
[2023-04-19] MEDS: INSULIN ASPART PER UNIT CHARGE SC SCH ×4 (08:33→21:20)
[2023-04-19] MEDS: LANTUS PER UNIT CHARGE SC SCH ×2 (08:34→21:21)
[2023-04-19] MEDS ORDERED: ACETAMINOPHEN 325 MG TAB PO ONE (09:07)
--- NOTE | 2023-04-19 09:32 | Pharmacy Report ---
Pharmacy Glycemic Short Note 2 - Date of Service April 19, 2023 - Glycemic Short BSG Results (Last 24 hours): 04/18/23 04/18/23 04/18/23 11:57 16:56 20:34 POC Glucose 140 H 222 H 181 H 04/19/23 08:04 POC Glucose 241 H OUTPATIENT ANTIDIABETIC REGIMEN: * U500: 50 units SC TID * HbA1c: 11.1% (04/02/23) ASSESSMENT: 04/19: * Patient received 114 units of insulin yesterday, 80 units basal + 34 units bolus. BSGs were: [id number] mg/dL. * Fasting BSG remains elevated this morning at 241 mg/dL. Spoke with patient this morning regarding fluctuations in BSGs. Admits that this does occur at home but has seemed better with the switch to U-500. Denies any snacking overnight. Spoke with RN as well who states she has not been told anything about snacking or witnessed it herself. Also, states that patient is conscientious about her carb intake. * Based on this information, previous admission data, and fasting hyperglycemia x 48 hours, will increase basal slightly today. Patient has tolerated basal doses of 100 units/day in the past so little concern for hypoglycemia. * No change to Novolog at this time. 04/18: * Patient's BSGs yesterday [id number] mg/dL and today are 248 - 140 mg/dL. * Patient received 118 units of insulin yesterday (80 units of basal 38 units of bolus). * Continue with 80 units of basal for now. based upon previous data, this is typically the basal dose necessary for patient. Doses have been fluctuating this admission so may be the reason for slightly higher basal today. * Tighten CR since BSGs trended upwards yesterday. 04/15: * Received 88 units of insulin yesterday, 60 units basal + 28 units bolus. BSGs ranged from 65-186 mg/dL. * Believe hypoglycemia at lunchtime was related to too much bolus insulin. Also trended down significantly at bedtime. Fortunately, patient was asymptomatic. * Fasting BSG was 154 mg/dL this AM. Want to target a total daily basal insulin dose of around 80 units per day. Therefore, will give a 40 unit dose this AM followed by an HS scale based on BSG. * Loosened carb ratio slightly today given trend down in postprandials yesterday. Stressors remain stable. 04/14: * 52 yo F with T2DM well known to our glycemic service admitted with fever and BSG >400 mg/dL. BSG responded well initially to a one-time IV bolus. * Will use prior recent glycemic history data to determine current inpatient needs. Of note, during prior admission, lunch BSG was consistently one of the highest of the day and consistently >250 mg/dL. Will therefore utilize a tighter Novolog regimen with breakfast. PLAN FOR INPATIENT GLYCEMIC CONTROL: * Basal insulin * Lantus 45 units SC BID * Bolus insulin * NovoLog per scale ACHS or Q6hrs while NPO * Goal Range: Low 110 mg/dL - High 140 mg/dL * Correction Factor: 15 mg/dL/unit * Carb ratio: 5 g CHO/unit
[2023-04-19] MEDS ORDERED: BUTALBITAL/ACETAMIN/CAFFEINE TAB PO STA (14:04)
[2023-04-19] MEDS: DULoxetine HCL 60 MG CAP PO SCH (21:03)
[2023-04-19] MEDS: MONTELUKAST SODIUM 10 MG TABLET PO SCH (21:04)
[2023-04-19] MEDS: traZODone HCL 100 MG TAB PO SCH (21:05)
[2023-04-19] MEDS: BUTALBITAL/ACETAMIN/CAFFEINE TAB PO PRN (21:22)
[2023-04-20] MEDS: oxyCODONE HCL IR 5 MG TAB (IMMEDIATE RELEASE) PO PRN ×5 (02:23→21:49)
[2023-04-20] MEDS: HEPARIN SOD 5,000 UNIT/0.5 ML VIAL SQ SCH ×3 (05:49→21:50)
[2023-04-20] MEDS: ASPIRIN 81 MG ECTAB PO SCH (08:15)
[2023-04-20] MEDS: busPIRone 5 MG TAB PO SCH ×4 (08:16→21:50)
[2023-04-20] MEDS: FLUTICASONE/VILANTEROL 100/25MCG 14 PUFFS/INHALER INH SCH (08:16)
[2023-04-20] MEDS: FAMOTIDINE 40 MG TABLET PO SCH ×2 (08:16→21:51)
[2023-04-20] MEDS: GABAPENTIN 800 MG TAB PO SCH ×3 (08:17→21:51)
[2023-04-20] MEDS: levETIRAcetam 500 MG TAB PO SCH ×2 (08:17→21:52)
[2023-04-20] MEDS: PANTOprazole 40 MG TAB PO SCH (08:18)
[2023-04-20] MEDS: POLYETHYLENE (MIRALAX) 17 GM PACK PO SCH ×2 (08:18→21:53)
[2023-04-20] MEDS: MELOXICAM 7.5 MG TAB PO SCH (08:18)
--- NOTE | 2023-04-20 09:26 | Hospitalist Progress Note ---
Date of Service April 20, 2023 Assessment & Plan (1) Fever: Plan: Pt is a 52 yo female with PMH of acute on chronic low back pain w/ radiculopathy on chronic opioids, anxiety/depression, and DM presenting due to a recent fall and increased weakness. She had a lumbar decompression/fusion of L2-L5 10/20/2022. 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) and pain over the last 6 months; pt referred to ER after talking with PCP due to hyperglycemia - has a known large Tarlov cyst, recommended for evaluation with neurosurgery at tertiary care for any further surgical intervention if required - per pt, she was down for several hrs with most recent fall; elevated lactate, CK WNL, procal neg, but clinically volume depleted - multiple admissions for weakness and falls - PT/OT recommended return home although she would most likely benefit from a rehab stay; insurance denying any rehab/health services - pt has plans for boyfriend to visit tomorrow and provide help at home Fever - Tmax 38C - respiratory bioFire negative; neg CXR; UA noninfected; blood cx neg - s/p empiric rocephin for elevated lactate and fever; no need for further antibiotics as pt's fever improved and has not returned - nausea and diarrhea have improved with supportive measures Insulin-dependent type 2 DM - Clinically volume depleted and hyperglycemic with BSG in the 400s on admission - Home regimen of Humulin 50 units 3 times daily held - continue with basal/bolus with pharmacy glycemic consult - continue type II DM diet Liver cirrhosis - ? contributing to elevated lactate - No ascites, PT/INR WNL, no transaminitis - No acute change in management on admission; outpatient f/u recommended Chronic low back pain - stable, pain well controlled - Home pain regimen: - Meloxicam 15 mg daily - Lidocaine patch as needed - Voltaren gel as needed - Gabapentin 800 mg 3 times daily - Oxycodone 10 mg every 4 hours as needed for breakthrough GERD - continue Protonix History of seizures - without recent seizure - patient does not feel like a seizure episode caused her fall - continue Keppra 1000 mg twice daily COPD - no acute exacerbation - albuterol PRN Depression/anxiety - buspar 5 mg 4 times daily - duloxetine 60 mg at bedtime - trazodone 100 mg at bedtime DVT ppx: Heparin subcu Diet: Type II DM Disposition: med/surg, plan for discharge home tomorrow Code: full (2) Morbid obesity with BMI of 40.0-44.9, adult: (3) Lumbar back pain with radiculopathy affecting left lower extremity: Admission and Anticipated Discharge Date Admission Date: April 13, 2023 Supervising Physician Co-Signing Physician Notes ATTESTATION I also saw the patient and confirmed brennan portions of the history and exam. I agree with the impression and plan in the resident documentation, and as summarized below. She had a headache most of yesterday, which seems to better today. She also has some increased right-sided lumbar back pain which I suggested may simply be from the hospital bed; discussed getting out of bed to the chair/change positions in effort to alleviate the muscle tightness. EXAM 118/76, 72, 18, 36.8, 96% room air Pleasant. No acute distress. Heart is regular, mildly tachycardic Respirations are nonlabored, lungs are clear IMPRESSION & PLAN Mechanical fall secondary to acute on chronic weakness PT/OT consultations appreciated. Awaiting logistics from insurance for disposition, although at this point, looks like return to home will be the most likely disposition. She has a friend who will be coming to town tomorrow; she would feel comfortable being discharged tomorrow knowing that she has some additional help at home, and this seems reasonable all considered. Fever, resolved without recurrence Viral gastroenteritis Respiratory bio fire negative, chest x-ray clear, urinalysis unremarkable, blood cultures negative Based on her symptoms including low-grade fever, tachycardia, hyperglycemia, elevated serum lactate and diarrhea and nausea, suspect viral gastroenteritis - resolved Insulin-dependent diabetes Improved glycemic control since admission Additional per resident documentation Subjective Pt complaining of right sided leg and back pain overnight. She states this is the side that was fixed with her previous surgeries. She has been taking her home regimen for pain. Review of Systems Review of Systems: As per HPI Physical Exam Physical Exam: Constitutional: well appearing, no acute distress HEENT: normocephalic, no conjunctival injection CV: clinically well perfused Respiratory: No increased work of breathing MSK: no gross deformities noted Skin: warm, dry, no rashes Neuro: alert, oriented, no FND noted Psych: mood and affect congruent Results & Data Results & Data Vital Signs (Past 12 Hours) Vital Signs Temp Pulse Resp BP Pulse Ox O2 Del Method O2 Del Method 04/20/23 07:42 36.8 C 72 18 118/76 96 Room Air 04/19/23 23:00 Room Air Resident Activity Tracking Resident Involvement: Resident Care Provided Care Provided: Adult Hospital Medicine
[2023-04-20] MEDS: INSULIN ASPART PER UNIT CHARGE SC SCH ×4 (09:38→21:47)
[2023-04-20] MEDS: LANTUS PER UNIT CHARGE SC SCH ×2 (09:38→23:37)
[2023-04-20] MEDS ORDERED: KETOROLAC TROMETHAMINE 15 MG/ML VIAL IV ONE (20:46)
[2023-04-20] MEDS: DULoxetine HCL 60 MG CAP PO SCH (21:51)
[2023-04-20] MEDS: MONTELUKAST SODIUM 10 MG TABLET PO SCH (21:52)
[2023-04-20] MEDS: traZODone HCL 100 MG TAB PO SCH (21:53)
[2023-04-20] MEDS: BUTALBITAL/ACETAMIN/CAFFEINE TAB PO PRN (22:02)
[2023-04-21] MEDS ORDERED: INSULIN ASPART PER UNIT CHARGE SC ONE (02:00)
[2023-04-21] MEDS: HEPARIN SOD 5,000 UNIT/0.5 ML VIAL SQ SCH (05:39)
[2023-04-21] MEDS: busPIRone 5 MG TAB PO SCH ×2 (08:15→13:10)
[2023-04-21] MEDS: GABAPENTIN 800 MG TAB PO SCH ×2 (08:15→13:10)
[2023-04-21] MEDS: FAMOTIDINE 40 MG TABLET PO SCH (08:15)
[2023-04-21] MEDS: FLUTICASONE/VILANTEROL 100/25MCG 14 PUFFS/INHALER INH SCH (08:15)
[2023-04-21] MEDS: ASPIRIN 81 MG ECTAB PO SCH (08:16)
[2023-04-21] MEDS: levETIRAcetam 500 MG TAB PO SCH (08:16)
[2023-04-21] MEDS: MELOXICAM 7.5 MG TAB PO SCH (08:16)
[2023-04-21] MEDS: PANTOprazole 40 MG TAB PO SCH (08:16)
[2023-04-21] MEDS: POLYETHYLENE (MIRALAX) 17 GM PACK PO SCH (08:17)
[2023-04-21] MEDS: oxyCODONE HCL IR 5 MG TAB (IMMEDIATE RELEASE) PO PRN ×2 (08:19→12:14)
[2023-04-21] MEDS: CYCLOBENZAPRINE HCL 10 MG TAB PO PRN (08:20)
[2023-04-21] MEDS: BUTALBITAL/ACETAMIN/CAFFEINE TAB PO PRN (08:23)
--- NOTE | 2023-04-21 08:46 | Discharge Summary ---
Date of Service April 21, 2023 Admission HPI Per Admitting Provider Elza is a 52-year-old female with a past medical history of opiate dependence, COPD, insulin-dependent DM, morbid obesity, hypertension, narcotic abuse, seizure, lumbar radiculopathy s/p decompression and fusion, large Tarlov cyst extending through L5-S1, cirrhosis who presents with a fall. She reports that she fell in the shower 2 days ago and was unconscious for 8-9 hours. Has had headache, low back pain, weakness, fatigue and is currently in 9/10 pain at bedside. She has had recurrent back pain and surgery, recurrent admissions for pain control and falls, and has had ongoing weakness despite decompression and fusion last October. She has a residual large Tarlov cyst recommended for neurosurgery evaluation and out of the scope of orthospine at this institution on prior evaluations CThead: No acute findings CTlumbar spine: Stable postoperative findings at L5-L5 discectomy, decompression, pedicle screw fusion. No acute lumbar spine fracture or subluxation CXR: No acute findings On admission no leukocytosis, lactate elevated at 3.2 downtrending to 2.5 following IV FM, hyperglycemic at 424, negative BioFire. No granulocyte/neutrophilic expansion. Procalcitonin is normal. She is febrile to 38.0 while in the ER, tachycardic downtrending with fluids No dysuria, no polyuria Dry cough for 3-4 years with emphysema but not change or increase in cough, no sputum production int he last week, no shortness of breath, no wheezing, no orthopnea +difficulty sleeping No nausea/vomiting/diarrhea. Poor appetite over the last several months. Hasn't eaten much in the last 2-3 days due to feeling crappy from pain. Elza reports she is chronically weak. When she fell in the shower 'tweaked my back a bit, pain is worse since the fall' and still having L leg weakness. Denies numbness/tingling in the lower extremities. No urinary or bowel incontinence. She reports she has a cyst in the sacrum and weakness, but no change in this other than the pain since the fall and no saddle anesthesia. Is working on finding an appt with neurosurgery ?sneha paige vs [facility] for her tarlov cyst, no current appointment yet working on scheduling. Is pending an appointment with [facility] for cirrhosis followup but cancelled todays appt due to an admit. Medical History: Reviewed Medications: Reviewed Surgical History: Reviewed Family history: Reviewed Allergies: Reviewed. NO CONTRAST, allergric/anaphylactic rxn recently with hypotension. Social History: No tobacco use, some secondhand smoke exposure. No etoh use. Code Status: Full Code Admission Exam Per Admitting Provider General: A&Ox3. NAD. Cooperative. HEENT: Atraumatic, normocephalic. Pulm: CTAB A&P. -wheezes, -rales, -rhonchi. Symmetrical chest rise. No increased work of breathing. No respiratory distress. Cardiac:regular, tachycardic, -mrg. Radial pulses intact and symmetrical. Abdominal: Nontender, nondistended, soft. BS present. Extremities: No saddle anesthesia. Sensation intact to soft touch in hands and feet bilaterally. Is with 4 -/5 left leg flexion and slightly decree strength on ankle dorsiflexion/plantarflexion compared to the right. Cap refill brisk bilaterally. No pitting edema Principal Diagnosis mechanical fall Discharge Exam Constitutional: well appearing, no acute distress HEENT: normocephalic, no conjunctival injection CV: clinically well perfused Respiratory: No increased work of breathing MSK: no gross deformities noted Skin: warm, dry, no rashes Neuro: alert, oriented, no FND noted Discharge Data Allergies Allergy/AdvReac Type Severity Reaction Status Date / Time Iodinated Contrast Media Allergy Severe Anaphylaxis Verified 04/13/23 15:07 acetaminophen AdvReac Severe LIVER Verified 04/13/23 15:07 COMPLICATIONS cephalexin AdvReac Severe Vomiting Verified 04/13/23 15:07 levofloxacin [From Levaquin] AdvReac Intermediate Vomiting Verified 04/13/23 15:07 Consultations 04/13/23 15:27 ED Decision to Admit Stat Ordered Studies 04/13/23 11:44 CT head/brain wo con Stat Impression: No acute intracranial hemorrhage, no evidence of acute territorial infarction or other acute intracranial disease process. 04/13/23 12:07 CT lumbar spine wo con Stat IMPRESSION: 1. No acute lumbar spine fracture or subluxation. 2. Stable postoperative findings following L3-L5 discectomy, posterior decompression and pedicle screw fusion. 04/13/23 16:13 MRI Lumbar Spine [MR lumbar spine wo/w con] Routine IMPRESSION: 1. Postoperative changes as described. Sacral Tarlov cyst, no significant change in the interval. 2. No distinct central canal stenosis or severe neuroforaminal encroachment. No abnormal enhancement seen. Hospital Course (1) Fever: Pt is a 52 yo female with PMH of acute on chronic low back pain w/ radiculopathy on chronic opioids, anxiety/depression, and DM presenting due to a recent fall and increased weakness. She had a lumbar decompression/fusion of L2-L5 10/20/2022. 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) and pain over the last 6 months; pt referred to ER after talking with PCP due to hyperglycemia - has a known large Tarlov cyst, recommended for evaluation with neurosurgery at tertiary care for any further surgical intervention if required - per pt, she was down for several hrs with most recent fall; elevated lactate, CK WNL, procal neg, but clinically volume depleted - multiple admissions for weakness and falls - PT/OT recommended return home although she would most likely benefit from a rehab stay; insurance denying any rehab/health services - pt discharged home Fever - Tmax 38C - respiratory bioFire negative; neg CXR; UA noninfected; blood cx neg - s/p empiric rocephin for elevated lactate and fever; no need for further antibiotics as pt's fever improved and has not returned - nausea and diarrhea improved with supportive measures Insulin-dependent type 2 DM - Clinically volume depleted and hyperglycemic with BSG in the 400s on admission - Home regimen of Humulin 50 units 3 times daily held - continue with basal/bolus with pharmacy glycemic consult - continue type II DM diet Liver cirrhosis - ? contributing to elevated lactate - No ascites, PT/INR WNL, no transaminitis - No acute change in management on admission; outpatient f/u recommended Chronic low back pain - stable, pain well controlled - Home pain regimen: - Meloxicam 15 mg daily - Lidocaine patch as needed - Voltaren gel as needed - Gabapentin 800 mg 3 times daily - sent home with oxycodone 10 mg TID for the next 3 days until PCP can take over further pain medication prescribing GERD - continue Protonix History of seizures - without recent seizure - patient does not feel like a seizure episode caused her fall - continue Keppra 1000 mg twice daily COPD - no acute exacerbation - albuterol PRN Depression/anxiety - buspar 5 mg 4 times daily - duloxetine 60 mg at bedtime - trazodone 100 mg at bedtime DVT ppx: Heparin subcu Diet: Type II DM Disposition: home Code: full (2) Morbid obesity with BMI of 40.0-44.9, adult: (3) Lumbar back pain with radiculopathy affecting left lower extremity: Total Time Total Time Spent Total Time Spent (In Minutes): as per attending attestation Discharge Plan Discharge Items Patient Disposition: Home - Self-Care Reason For Visit: FEVER, FALL Discharge Diagnosis: mechanical fall Activity: Per Instructions section Non-emergency contact: Primary Care Provider Call non-emergency contact if: you have any medication questions, your symptoms worsen and your pain is not controlled Follow-up/Referrals: Aneudy Pérez MD [Primary Care Provider] - 04/26/23 11:05 am () Diet: Carb Consistent or DM2 Addtl Attending Provider Instructions: You were admitted to the hospital for a mechanical fall. Your lab work was reassuring. You were treated with fluids and pain medications. Your blood sugars remained mostly within an acceptable range. You may use Excedrin at home for your headaches. A discharge summary will be sent to your primary care physician to ensure contin uity of care. Please bring this discharge summary with you to your next office appointment so that your provider can review it at that time. Medications: Your medication list has been reviewed and reconciled upon discharge to ensure accuracy and continuity of care. An updated list of all your medications is included with your hospital discharge paperwork. Please review this list closely and make note of any changes to your medications. - You have been sent oxycodone 10 mg to be used three times per day as needed over the next few days. Further pain medication prescriptions should be discussed with your PCP. Follow up appointments: - Make a follow up appointment with your PCP within the next week. It is very important that you follow up with them shortly after discharge from the hospital. - Keep all of your follow up appointments as already scheduled. If you cannot make an appointment, notify your provider. CONTACT YOUR PRIMARY CARE PROVIDER if you experience any of the following: - Difficulty following your treatment plan - Difficulty taking any of your medications CALL 911 OR GO TO THE EMERGENCY DEPARTMENT if you experience any of the following: - Sudden, severe abdominal pain or nausea/vomiting - Severe chest pain or chest pain that radiates to your jaw or arm - Sudden, severe shortness of breath or difficulty breathing Pending Studies at Discharge: No Stand-Alone Forms: [facility] [employer], Smoking Cessation Medications and DC Order Prescriptions: New oxycodone 10 mg tablet 10 mg PO TID 3 Days Qty: 9 0RF Continued cyclobenzaprine 10 mg Tablet 10 mg PO BID PRN (Reason: Muscle Spasm) Qty: 0 albuterol sulfate [Ventolin HFA] 90 mcg/actuation Hfa Aerosol Inhaler 2 puff INHALATION Q4H PRN (Reason: Shortness Of Breath Or Wheezing) Qty: 0 Humulin R U-500 (Conc) Kwikpen 500 unit/mL (3 mL) insulin pen 50 unit subcut TID Qty: 18 4RF Rx Instructions: Inject 50 units into the abdomen 3 times per day; injections should be 6-8 hours apart. montelukast [Singulair] 10 mg tablet 10 mg PO HS clindamycin phosphate 1 % gel 1 applic topical DAILY PRN (Reason: Unknown) fluticasone propion-salmeterol [AirDuo RespiClick] 232-14 mcg/actuation aerosol powdr breath activated 2 inh inhalation BID PRN (Reason: Shortness Of Breath) ibuprofen 800 mg tablet 800 mg PO TID PRN (Reason: Pain) Patient Comments: Per PT she uses the meloxicam promethazine 25 mg tablet 25 mg PO Q6H PRN (Reason: Nausea) aspirin 81 mg Tablet,Delayed Release (Dr/Ec) 81 mg PO QAM duloxetine 60 mg capsule,delayed release(DR/EC) 60 mg PO HS buspirone 5 mg tablet 5 mg PO QID nystatin [Nyamyc] 100,000 unit/gram powder 1 applic TOPICAL DIRECTED PRN (Reason: NEEDED ) levetiracetam 1,000 mg tablet 1,000 mg PO BID 30 Days Qty: 60 0RF diclofenac sodium 1 % Gel 4 g TOPICAL QID PRN (Reason: Pain) albuterol sulfate 2.5 mg /3 mL (0.083 %) solution for nebulization 2.5 mg inhalation Q6 PRN (Reason: Wheezing) famotidine 40 mg tablet 40 mg PO BID pantoprazole 20 mg tablet,delayed release (DR/EC) 20 mg PO QAM lidocaine 5 % adhesive patch,medicated 1 patch transdermal DAILY PRN (Reason: Pain) fluticasone propionate [Flonase Allergy Relief] 50 mcg/actuation spray,suspension 1 spray INTRANASAL DAILY PRN (Reason: Congestion) trazodone 100 mg tablet 100 mg PO HS polyethylene glycol 3350 [Miralax] 17 gram/dose Powder 17 g PO BID Patient Comments: Typically uses once a day gabapentin 800 mg tablet 800 mg PO TID ondansetron 4 mg tablet,disintegrating 4 mg PO Q6H PRN (Reason: nausea and vomiting) Qty: 12 0RF meloxicam 15 mg tablet 15 mg PO DAILY (DME) Bedside Commode Misc See Rx Instructions .Route Qty: 1 0RF Rx Instructions: As directed (DME) Shower Chair Misc See Rx Instructions .Route Qty: 1 0RF Rx Instructions: As directed (DME) insulin syringe-needle U-100 1/2 mL 32 gauge x 5/16" syringe See Rx Instructions .Route Qty: 100 1RF Rx Instructions: As directed Discontinued oxycodone 20 mg tablet 10 mg PO BID PRN (Reason: pain) Qty: 2 0RF oxycodone 5 mg tablet 10 mg PO Q4H PRN (Reason: pain) Qty: 30 0RF Patient Comments: Per pt she gets 10mg filled from pharmacy but when in the hospital she's given two 5mg Rx Instructions: 1 tab for moderate pain, 2 for severe pain Discharge Orders: Discharge Order (Routine); Ordered 04/21/23 Ordered By: Martita Marsh Admission Data Admit Date/Time: 04/13/23 16:12 Attending Provider: Emery Nance Admit Provider: Pool Crews Primary Care Provider: Aneudy Pérez Other Providers: Pool Crews ; [facility] Other Interventions: Discharge Summary Assessment (RN) Last Done: 04/21/23 12:53 Supervising Physician Co-Signing Physician Notes ATTESTATION I also saw the patient and confirmed brennan portions of the history and exam. I agree with the impression and plan in the resident documentation, and as summarized below. No new complaints today. She does have questions regarding her outpatient medications. We discussed this at also discussed follow-up with her PCP. She is comfortable discharge today as she will have a friend staying with her over the weekend to help her with any needs during the first few days postdischarge. Temporary increase in her oxycodone to 10 mg p.o. every 8 hours as needed for the next 5 days. A prescription for #15 with no refills was sent electronically through the outpatient EMR to assure accurate recordkeeping within the outpatient office. Additional per resident documentation Resident Activity Tracking Resident Involvement: Resident Care Provided Care Provided: Adult [facility]
[2023-04-21] MEDS: INSULIN ASPART PER UNIT CHARGE SC SCH ×2 (08:59→13:12)
[2023-04-21] MEDS: LANTUS PER UNIT CHARGE SC SCH (09:00)
== END 2023-04-21 13:52 | disposition home health service (06) | DRG 392 ==
LOC: ED 10:36 → SUATTDRO 16:12 → 2E 16:12 → 3N 04-14 15:17

== ENCOUNTER 2023-05-12 13:44 | Inpatient (IN) ==
[2023-05-12 15:18] LABS: Basophils # (auto) 0.02 K/uL (0-0.2); Basophils % (auto) 0.3 %; Eosinophils # (auto) 0.08 K/uL (0-0.50); Eosinophils % (auto) 1.3 %; Hematocrit (blood only) 42.9 % (37.0-47.0); Hemoglobin 15.5 g/dl (12.0-16.0); Immature Granulocytes # (auto) 0.01 K/uL (0.01-0.20); Immature Granulocytes % (auto) 0.2 %; Lymphocytes # (auto) 1.69 K/uL (1.2-3.4); Lymphocytes % (auto) 26.8 %; Mean Corpuscular Hemoglobin 31.8 pg (25.0-34.0); Mean Corpuscular Hgb Conc 36.1 g/dL (32.0-36.0); Mean Corpuscular Volume 88.1 fL (80.0-100.0); Mean Platelet Volume 11.9 fL (9.4-12.4); Monocytes # (auto) 0.43 K/uL (0.11-0.59); Monocytes % (auto) 6.8 %; Neutrophils # (auto) 4.08 K/uL (1.40-6.50); Neutrophils % (auto) 64.6 %; Platelet Count 179 K/uL (130-400); RDW Coefficient of Variation 14.2 % (11.5-14.5); RDW Standard Deviation 45.7 fL (36.4-46.3); Red Blood Count 4.87 M/uL (4.20-5.40); White Blood Count 6.31 K/ul (4.8-10.8)
[2023-05-12] MEDS ORDERED: ONDANSETRON INJ 2 MG/ML 2 ML VIAL IV STA (15:25)
[2023-05-12] MEDS ORDERED: SODIUM CHLORIDE 0.9% 1000ML 1,000 ML IV ONE (15:25)
[2023-05-12] MEDS ORDERED: MoRPHine SULFATE 4 MG/ML 1 ML CARP\\VIAL IV STA (15:25)
[2023-05-12] MEDS ORDERED: NovoLIN-R INSULIN PER UNIT CHARGE IV STA (15:56)
[2023-05-12 15:57] LABS: Albumin Globulin Ratio 1.3 (0.9-2); Albumin Level 4.2 gm/dl (3.4-5.0); BUN Creatinine Ratio 8.1 (10-20); Bilirubin,Total 0.8 mg/dl (0.2-1.0); Calcium 9.3 mg/dl (8.6-10.3); Creatinine Clr Calc Pharmacy 128.6 ml/min; Est GFR (African American) 118.5 ml/min; Est GFR (Non-African American) 102.2 ml/min; Globulin 3.3 gm/dl (2.5-4.0); Magnesium 1.7 mg/dl (1.7-2.4); Potassium 3.9 mmol/L (3.5-5.1); Total Protein 7.5 gm/dl (6.0-8.3)
--- NOTE | 2023-05-12 16:07 | Emergency Department Note ---
Impression & Plan Weakness, Lower back pain, Acute hyperglycemia, Falling ED Provider Note NAME: MARCIO FERNANDEZ AGE: 52 SEX: F : 1970 ARRIVES VIA: Ambulance INFORMANT: [Patient] ED PROVIDER(S): [Kumar Coronado MD] CHIEF COMPLAINT: Back pain HISTORY OF PRESENT ILLNESS: The patient is a 52-year-old female with chronic back issues. She has had back surgery. She has a known Tarlov cyst that is to be operated on in the near future. She has an appointment via telemedicine on the eighth, and 5 days with [facility]. The patient states that she has had increasing pain and weakness in the left leg. She fell 3 times today trying to get to the bathroom. She does not feel safe at home. There has been no fever, no cough or congestion, no urinary complaints. She feels like she should be hospitalized for strengthening. She does not feel safe at her home. The patient has noticed some lightheadedness. She denies any injury from her falls today. PMHx/PSHx: See Below SOCIAL HISTORY: See Below. PHYSICAL EXAM: GENERAL: Patient is in no acute distress. HEENT: No acute trauma, normocephalic atraumatic, mucous membranes moist, no nasal congestion. NECK: No stridor, no adenopathy, no meningismus, trachea is midline. LUNGS: Clear to auscultation bilaterally, no wheeze, no rhonchi, breath sounds equal. HEART: Subtle systolic murmur, mildly tachycardic, regular rhythm ABDOMEN: Soft, nontender, bowel sounds positive, no peritonitis. EXTREMITIES: No cyanosis. There is some left lower extremity edema when compared to the right. NEUROLOGIC: Oriented x 3. The patient does have poor plantarflexion on the left. Dorsiflexion of both toes seems equal. The patient has a subtle left Achilles reflex. I find no reflexes in the left knee, right knee or right Achilles. SKIN: No rash, no jaundice, no diaphoresis. Back: She has no bony step-off, there is evidence for previous lumbar surgery. DIFFERENTIAL DIAGNOSIS: Debilitation, dehydration, electrolyte imbalance, UTI, worsening Tarlov cyst, among others. EMERGENCY DEPARTMENT COURSE/PROCEDURES: Prior/Outside records reviewed: Previous and most recent MRI imaging, recent discharge summary. MEDICAL DECISION MAKING: There is no leukocytosis or concerning anemia. There is a normal platelet count. No renal failure. Glucose was high at 362. Alk phos somewhat elevated, the remaining liver enzymes were unremarkable. The patient appeared to be in a euthyroid state. Urinalysis showed glucose, no infection. Left leg ultrasound did not show findings of DVT. On exam, the patient did have some left lower extremity edema. She was not toxic or febrile. She was slightly tachycardic. She had some weakness with left foot plantar flexion but was seen moving the leg fairly well to adjust herself in bed. Patient presents with ongoing back pain and left leg pain. She has a known Tarlov cyst that is supposed to be removed surgically. She has fallen 3 times today and does not feel safe at home. She was hyperglycemic. Patient received IV saline, she was given IV insulin. She received IV Zofran for nausea, IV morphine for pain. I did speak with case management. The patient does require a hospital stay, she may be a candidate for rehab either inpatient or outpatient. Patient is aware of her findings, I did speak with the on-call hospitalist. Patient is currently resting comfortably. DISPOSITION: Patient's presentation and findings warrant a hospital stay. Past Med/Surg History Medical History Ambulatory dysfunction Ankle swelling Anxiety Brain cyst Chronic generalized abdominal pain Chronic low back pain with left-sided sciatica Chronic obstructive pulmonary disease Depression Hypertension Hypokalemia Hypomagnesemia Hyponatremia Insulin dependent diabetes mellitus Left hand paresthesia Narcotic abuse Ongoing, documented by PCP since 2013 Neurogenic claudication due to lumbar spinal stenosis Obesity Opiate dependence Opioid abuse Periapical abscess with facial involvement Pulmonary embolism Reports was anticoagulation x 60 days, not on chronic anticoagulation Rash Syncope Thrombocytopenia Tinea corporis Tinea cruris Uncontrolled type 2 diabetes mellitus Surgical History History of laparoscopic cholecystectomy History of lumbar surgery Hx of oral surgery (02/15/20) Acute right submandibular, submental space infection with floor of mouth infection caused by infected lower teeth. Dr. Rios 02/15/20 S/P dilation and curettage S/P laparoscopic hernia repair S/P laparoscopic procedure ovarian cyst surgery Family History Mother , 73 Heart disease Cancer small cell ca lung caused at 73 Father Skin cancer Brother No problems noted. Sister No problems noted. Grandmother (Maternal) , 48 Heart disease T2DM (type 2 diabetes mellitus) Grandmother (Paternal) , 83 Heart disease Kidney disease Uncle T2DM (type 2 diabetes mellitus) Other Diabetes Obesity Denies family history of Ovarian cancer Breast cancer Colorectal cancer Uterine cancer Social History Smoking Status: Never smoker Tobacco Type: Cigarettes Cigarettes Per Day: 5; Second Hand Exposure: Yes; Do You Dip or Chew Tobacco: No; Hx Alcohol Use: No Hx Substance Use: No Preferred Language: [place]an Communication Ability: Effective Visual Impairment: No Limitations Hearing Ability: Normal [employer]visor [employer] Required: No Beliefs That Will Affect Care: None marital status: Current Living Situation: Alone Current Living Situation Comment: Lives with son (15yo) current occupational status: unemployed 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 How many Children do You have: 1 Feels Safe at Home: Yes Assistive Devices: Denture - Upper, Denture - Lower, Glasses, Walker and Wheelchair Allergies Allergies Allergy/AdvReac Type Severity Reaction Status Date / Time Iodinated Contrast Media Allergy Severe Anaphylaxis Verified 05/12/23 17:38 acetaminophen AdvReac Severe LIVER Verified 05/12/23 17:38 COMPLICATIONS cephalexin AdvReac Severe Vomiting Verified 05/12/23 17:38 levofloxacin [From Levaquin] AdvReac Intermediate Vomiting Verified 05/12/23 17:38 Home Meds Home Medications Medication Instructions Recorded Confirmed cyclobenzaprine 10 mg tablet 10 mg PO BID PRN Muscle Spasm ##0 11/18/17 05/12/23 albuterol sulfate 90 mcg/actuation 2 puff inhalation Q4H PRN 02/10/18 05/12/23 aerosol inhaler (Ventolin HFA) Shortness Of Breath Or Wheezing ##0 ibuprofen 800 mg tablet 800 mg PO TID PRN Pain 10/24/19 05/12/23 promethazine 25 mg tablet 25 mg PO Q6H PRN Nausea 10/24/19 05/12/23 fluticasone 232 mcg-salmeterol 14 2 inh inhalation BID PRN Shortness 08/21/20 05/12/23 mcg/actuation breath activated Of Breath powdr (AirDuo RespiClick) montelukast 10 mg tablet 10 mg PO HS 09/01/20 05/12/23 (Singulair) aspirin 81 mg tablet,delayed 81 mg PO QAM 10/28/20 05/12/23 release diclofenac sodium 1 % topical gel 4 g topical QID PRN Pain 07/20/21 05/12/23 albuterol sulfate 2.5 mg/3 mL 2.5 mg inhalation Q6 PRN Wheezing 01/19/22 05/12/23 (0.083 %) solution for nebulization famotidine 40 mg tablet 40 mg PO BID 01/19/22 05/12/23 fluticasone propionate 50 1 spray intranasal DAILY PRN 01/19/22 05/12/23 mcg/actuation nasal Congestion spray,suspension (Flonase Allergy Relief) lidocaine 5 % topical patch 1 patch transdermal DAILY PRN Pain 01/19/22 05/12/23 pantoprazole 20 mg tablet,delayed 20 mg PO QAM 01/19/22 05/12/23 release polyethylene glycol 3350 17 17 g PO BID 01/29/22 05/12/23 gram/dose oral powder (Miralax) trazodone 100 mg tablet 100 mg PO HS 01/29/22 05/12/23 duloxetine 60 mg capsule,delayed 60 mg PO HS 03/12/22 05/12/23 release gabapentin 800 mg tablet 800 mg PO TID 04/05/22 05/12/23 buspirone 5 mg tablet 5 mg PO QID 07/30/22 05/12/23 nystatin 100,000 unit/gram topical 1 applic topical DIRECTED PRN 10/12/22 05/12/23 powder ([facility]) NEEDED meloxicam 15 mg tablet 15 mg PO DAILY 12/20/22 05/12/23 clindamycin phosphate 1 % topical 1 applic topical DAILY PRN Unknown 01/25/23 05/12/23 gel Previous Rx's Medication Instructions Recorded ondansetron 4 mg disintegrating 4 mg PO Q6H PRN nausea and 08/11/22 tablet vomiting #12 tabs levetiracetam 1,000 mg tablet 1,000 mg PO BID 30 days #60 tabs 12/11/22 insulin regular hum U-500 conc 500 50 unit (0.1 mL) subcut TID #18 mL 03/17/23 unit/mL(3 mL) subcut pen (Humulin R U-500 (Conc) Insulin Kwikpen) Results & Data (ED) Vital Signs Vital Signs - 24 hr 05/12/23 13:54 05/12/23 15:25 05/12/23 17:43 Temperature 36.4 C L Temperature Source Skin Pulse Rate 114 H Pulse Rate [Right Finger] 94 H 92 H Respiratory Rate 18 18 16 Blood Pressure 151/94 H Blood Pressure [Left Arm] 149/80 H 136/92 Blood Pressure Mean 113 Blood Pressure Mean [Left Arm] 103 106 Pulse Oximetry 97 100 98 Oxygen Delivery Method Room Air Room Air Room Air Sepsis Recent Fever Within 48 Hours No Sepsis New/Unexplained Change in Mental Status No Sepsis Action Taken by Nursing No Action Required Home Medications Current Medication List: was personally reviewed by me Laboratory Data Attestation: I reviewed the patient's lab results. 05/12/23 14:30 05/12/23 14:30 Lab Results 05/12/23 05/12/23 05/12/23 Range/Units 14:30 14:30 14:30 WBC 6.31 (4.8-10.8) K/ul RBC 4.87 (4.20-5.40) M/uL Hgb 15.5 (12.0-16.0) g/dl Hct 42.9 (37.0-47.0) % MCV 88.1 (80.0-100.0) fL MCH 31.8 (25.0-34.0) pg MCHC 36.1 H (32.0-36.0) g/dL RDW Std Deviation 45.7 (36.4-46.3) fL RDW Coeff of Kelli 14.2 (11.5-14.5) % Plt Count 179 (130-400) K/uL MPV 11.9 (9.4-12.4) fL Immature Gran % (Auto) 0.2 % Neut % (Auto) 64.6 % Lymph % (Auto) 26.8 % Karnes % (Auto) 6.8 % Eos % (Auto) 1.3 % Baso % (Auto) 0.3 % Neut # (Auto) 4.08 (1.40-6.50) K/uL Lymph # (Auto) 1.69 (1.2-3.4) K/uL Karnes # (Auto) 0.43 (0.11-0.59) K/uL Eos # (Auto) 0.08 (0-0.50) K/uL Baso # (Auto) 0.02 (0-0.2) K/uL Immature Gran # (Auto) 0.01 (0.01-0.20) K/uL Sodium 135 L (136-145) mmol/L Potassium 3.9 (3.5-5.1) mmol/L Chloride 105 (98-107) mmol/L Carbon Dioxide 21 (21-32) mmol/L Anion Gap 9 (3-11) BUN 5 L (6-23) mg/dl Creatinine 0.62 (0.6-1.2) mg/dl Est Cr Clr Drug Dosing 128.6 ml/min Est GFR ( Amer) 118.5 ml/min Est GFR (Non-Af Amer) 102.2 ml/min BUN/Creatinine Ratio 8.1 L (10-20) Glucose 362 H* (70-99(Fasting)) mg/dl POC Glucose (70-99) mg/dl Calcium 9.3 (8.6-10.3) mg/dl Magnesium 1.7 (1.7-2.4) mg/dl Total Bilirubin 0.8 (0.2-1.0) mg/dl AST 22 (13-39) U/L ALT 29 (7-52) U/L Alkaline Phosphatase 146 H (34-104) U/L Total Protein 7.5 (6.0-8.3) gm/dl Albumin 4.2 (3.4-5.0) gm/dl Globulin 3.3 (2.5-4.0) gm/dl Albumin/Globulin Ratio 1.3 (0.9-2) TSH 0.833 (0.300-4.500) uIu/ml 05/12/23 Range/Units 17:41 WBC (4.8-10.8) K/ul RBC (4.20-5.40) M/uL Hgb (12.0-16.0) g/dl Hct (37.0-47.0) % MCV (80.0-100.0) fL MCH (25.0-34.0) pg MCHC (32.0-36.0) g/dL RDW Std Deviation (36.4-46.3) fL RDW Coeff of Kelli (11.5-14.5) % Plt Count (130-400) K/uL MPV (9.4-12.4) fL Immature Gran % (Auto) % Neut % (Auto) % Lymph % (Auto) % Karnes % (Auto) % Eos % (Auto) % Baso % (Auto) % Neut # (Auto) (1.40-6.50) K/uL Lymph # (Auto) (1.2-3.4) K/uL Karnes # (Auto) (0.11-0.59) K/uL Eos # (Auto) (0-0.50) K/uL Baso # (Auto) (0-0.2) K/uL Immature Gran # (Auto) (0.01-0.20) K/uL Sodium (136-145) mmol/L Potassium (3.5-5.1) mmol/L Chloride (98-107) mmol/L Carbon Dioxide (21-32) mmol/L Anion Gap (3-11) BUN (6-23) mg/dl Creatinine (0.6-1.2) mg/dl Est Cr Clr Drug Dosing ml/min Est GFR ( Amer) ml/min Est GFR (Non-Af Amer) ml/min BUN/Creatinine Ratio (10-20) Glucose (70-99(Fasting)) mg/dl POC Glucose 155 H (70-99) mg/dl Calcium (8.6-10.3) mg/dl Magnesium (1.7-2.4) mg/dl Total Bilirubin (0.2-1.0) mg/dl AST (13-39) U/L ALT (7-52) U/L Alkaline Phosphatase (34-104) U/L Total Protein (6.0-8.3) gm/dl Albumin (3.4-5.0) gm/dl Globulin (2.5-4.0) gm/dl Albumin/Globulin Ratio (0.9-2) TSH (0.300-4.500) uIu/ml Administered Medications Buspirone HCl (Buspirone 5 Mg Tab) 5 mg PO QID YEN Stop: 06/11/23 20:59 Last Admin: 05/12/23 21:13 Dose: 5 mg Documented By: DIANA Duloxetine HCl (Duloxetine Hcl 60 Mg Cap) 60 mg PO HS [facility] Stop: 06/11/23 20:59 Last Admin: 05/12/23 21:10 Dose: 60 mg Documented By: DIANA Enoxaparin Sodium (Enoxaparin Inj 40 Mg/0.4 Ml Syr) 40 mg SQ Q24H YEN Stop: 06/11/23 20:59 Last Admin: 05/12/23 21:14 Dose: 40 mg Documented By: DIANA Famotidine (Famotidine 40 Mg Tablet) 40 mg PO BID YEN Stop: 06/11/23 20:59 Last Admin: 05/12/23 21:11 Dose: 40 mg Documented By: DIANA Gabapentin (Gabapentin 800 Mg Tab) 800 mg PO TID YEN Stop: 06/11/23 20:59 Last Admin: 05/12/23 21:11 Dose: 800 mg Documented By: DIANA Levetiracetam (Levetiracetam 500 Mg Tab) 1,000 mg PO BID EYN Stop: 06/11/23 20:59 Last Admin: 05/12/23 21:11 Dose: 1,000 mg Documented By: DIANA Miscellaneous (Remove Lidoderm Patch) 1 each N/A DAILY@2100 [facility] Stop: 06/11/23 20:59 Last Admin: 05/12/23 21:12 Dose: Not Given Documented By: DIANA Montelukast Sodium (Montelukast Sodium 10 Mg Tablet) 10 mg PO HS [facility] Stop: 06/11/23 20:59 Last Admin: 05/12/23 21:12 Dose: 10 mg Documented By: DIANA Polyethylene Glycol (Polyethylene (Miralax) 17 Gm Pack) 17 gm PO BID YEN Stop: 06/11/23 20:59 Last Admin: 05/12/23 21:12 Dose: Not Given Documented By: DIANA Trazodone HCl (Trazodone Hcl 100 Mg Tab) 100 mg PO [facility] Stop: 06/11/23 20:59 Last Admin: 05/12/23 21:12 Dose: 100 mg Documented By: DIANA Discontinued Medications Sodium Chloride (Nss 1000ml) 1,000 mls @ 999 mls/hr IV .Q1H1M ONE Stop: 05/12/23 16:25 Last Infusion: 05/12/23 17:45 Dose: 0 mls/hr Documented By: Admin: 05/12/23 15:40 Dose: 999 mls/hr Documented By: GEMA Insulin Human Regular (Novolin-R Insulin Per Unit Charge) 10 units IV NOW STA Stop: 05/12/23 15:57 Last Admin: 05/12/23 16:32 Dose: 10 units Documented By: GEMA Co-signed By: QGV Morphine Sulfate (Morphine Sulfate 4 Mg/Ml 1 Ml Carp\Vial) 4 mg IV NOW STA Stop: 05/12/23 15:26 Last Admin: 05/12/23 15:51 Dose: 4 mg Documented By: EGMA Ondansetron HCl (Ondansetron Inj 2 Mg/Ml 2 Ml Vial) 4 mg IV NOW STA Stop: 05/12/23 15:26 Last Admin: 05/12/23 15:50 Dose: 4 mg Documented By: GEMA Imaging Data Radiologist's Impression: Venous Doppler Study 05/12/23 16:07 ULTRASOUND LEFT LOWER EXTREMITY VENOUS CLINICAL HISTORY: Left leg swelling. COMPARISON STUDY: Left lower extremity venous ultrasound dated 02/24/2023 TECHNIQUE: Real-time, grayscale, and color Doppler sonography of the deep veins of the left lower extremity was performed from the inguinal crease to the calf. Compression and augmentation were utilized. FINDINGS: There is no sonographic evidence of deep venous thrombosis identified in the left lower extremity. The common femoral, superficial femoral, and po pliteal veins are patent and normally compressible. The greater saphenous vein and the profunda femoris vein at the junction with the common femoral vein are clear. The visualized calf veins are patent. IMPRESSION: There is no sonographic evidence of deep venous thrombosis identified in the left lower extremity. ACT 112: Negative or not required by law. Electronically signed by: Kumar Caldwell M.D. 05/12/2023 5:05 PM Discharge Plan Visit Data Chief Complaint: Back Injury/Pain Stated Complaint: BACK PAIN ED Provider: Kumar Coronado Discharge Problem: Weakness, Lower back pain, Acute hyperglycemia, Falling Patient Disposition: Admitted As Inpatient Condition: Fair Discharge Instructions Interventions: ED Discharge Assessment Last Done: 05/12/23 19:44 Lower back pain Qualifiers: Chronicity: chronic Back pain laterality: left Sciatica presence: with sciatica Sciatica laterality: sciatica of left side Qualified Code(s): M54.42 - Lumbago with sciatica, left side
--- NOTE | 2023-05-12 17:07 | Ultrasound Report ---
ULTRASOUND LEFT LOWER EXTREMITY VENOUS CLINICAL HISTORY: Left leg swelling. COMPARISON STUDY: Left lower extremity venous ultrasound dated 02/24/2023 TECHNIQUE: Real-time, grayscale, and color Doppler sonography of the deep veins of the left lower ext remity was performed from the inguinal crease to the calf. Compression and augmentation were utilized . FINDINGS: There is no sonographic evidence of deep venous thrombosis identified in the left lower ext remity. The common femoral, superficial femoral, and popliteal veins are patent and normally compress ible. The greater saphenous vein and the profunda femoris vein at the junction with the common femora l vein are clear. The visualized calf veins are patent. IMPRESSION: There is no sonographic evidence of deep venous thrombosis identified in the left lower e xtremity. ACT 112: Negative or not required by law. Electronically signed by: Kumar Caldwell M.D. 05/12/2023 5:05 PM
--- NOTE | 2023-05-12 18:05 | History & Physical Report ---
Date of Service May 12, 2023 Assessment & Plan (1) Hyperglycemia: Plan: Left Lumbar Radiculopathy with new worsening of weakness - New progression of left sided weakness with exam changes - MRI lumbar spine pending - Home oxycodone dose 5mg BID, will go to TID - continue Flexeril, meloxicam, gabapentin, diclofenac gel, lidocaine patch DM 2 Insulin Dependent - Home regimen 100 units Humulin TID - Hyperglycemic to 360s at presentation, down to 140s - Lantus bid 40, correction factor 12, carb ratio 4 - glycemic consult GERD - continue Pepcid, pantoprazole Depression Anxiety - continue BuSpar, duloxetine, trazodone qHS History of Seizures - continue Keppra COPD - albuterol prn Diet: Carb Consistent Code: Full Dispo: Med-Surg VTE Prophylaxis: Lovenox (2) Weakness: (3) Lumbar back pain with radiculopathy affecting left lower extremity: (4) Recurrent falls: (5) Anxiety: (6) Depression: History of Present Illness Primary Care Provider: Aneudy Pérez MD 52 year old female with a past medical history of opiate dependence, COPD, insulin-dependent DM, morbid obesity, hypertension, narcotic abuse, seizure, lumbar radiculopathy s/p decompression and fusion, large Tarlov cyst extending through L5-S1 presenting with new left sided weakness. Over the past few weeks she has noticed increased weakness on the left side. Overall improvement of strength/pain on the right side.This morning when she woke up she noticed a significant decrease in left lower extremity strength. Unable to walk, fell 3 times. Feels like her left side is giving out. States that she did not have any injuries from the falls. Denies bowel/bladder incontinence, change in sensation, saddle anesthesia. She has an telehealth appointment 05/17 with [place] [facility] [place] Allergies Allergy/AdvReac Type Severity Reaction Status Date / Time Iodinated Contrast Media Allergy Severe Anaphylaxis Verified 05/12/23 17:38 acetaminophen AdvReac Severe LIVER Verified 05/12/23 17:38 COMPLICATIONS cephalexin AdvReac Severe Vomiting Verified 05/12/23 17:38 levofloxacin [From Levaquin] AdvReac Intermediate Vomiting Verified 05/12/23 17:38 Home Medications Medication Instructions Recorded Confirmed Type cyclobenzaprine 10 mg tablet 10 mg PO BID PRN Muscle Spasm ##0 11/18/17 05/12/23 History albuterol sulfate 90 mcg/actuation 2 puff inhalation Q4H PRN 02/10/18 05/12/23 History aerosol inhaler (Ventolin HFA) Shortness Of Breath Or Wheezing ##0 ibuprofen 800 mg tablet 800 mg PO TID PRN Pain 10/24/19 05/12/23 History promethazine 25 mg tablet 25 mg PO Q6H PRN Nausea 10/24/19 05/12/23 History fluticasone 232 mcg-salmeterol 14 2 inh inhalation BID PRN Shortness 08/21/20 05/12/23 History mcg/actuation breath activated Of Breath powdr (AirDuo RespiClick) montelukast 10 mg tablet 10 mg PO HS 09/01/20 05/12/23 History (Singulair) aspirin 81 mg tablet,delayed 81 mg PO QAM 10/28/20 05/12/23 History release diclofenac sodium 1 % topical gel 4 g topical QID PRN Pain 07/20/21 05/12/23 History albuterol sulfate 2.5 mg/3 mL 2.5 mg inhalation Q6 PRN Wheezing 01/19/22 05/12/23 History (0.083 %) solution for nebulization famotidine 40 mg tablet 40 mg PO BID 01/19/22 05/12/23 History fluticasone propionate 50 1 spray intranasal DAILY PRN 01/19/22 05/12/23 History mcg/actuation nasal Congestion spray,suspension (Flonase Allergy Relief) lidocaine 5 % topical patch 1 patch transdermal DAILY PRN Pain 01/19/22 05/12/23 History pantoprazole 20 mg tablet,delayed 20 mg PO QAM 01/19/22 05/12/23 History release polyethylene glycol 3350 17 17 g PO BID 01/29/22 05/12/23 History gram/dose oral powder (Miralax) trazodone 100 mg tablet 100 mg PO HS 01/29/22 05/12/23 History duloxetine 60 mg capsule,delayed 60 mg PO HS 03/12/22 05/12/23 History release gabapentin 800 mg tablet 800 mg PO TID 04/05/22 05/12/23 History buspirone 5 mg tablet 5 mg PO QID 07/30/22 05/12/23 History ondansetron 4 mg disintegrating 4 mg PO Q6H PRN nausea and 08/11/22 05/12/23 Rx tablet vomiting #12 tabs nystatin 100,000 unit/gram topical 1 applic topical DIRECTED PRN 10/12/22 05/12/23 History powder (Nyamyc) NEEDED levetiracetam 1,000 mg tablet 1,000 mg PO BID 30 days #60 tabs 12/11/22 05/12/23 Rx meloxicam 15 mg tablet 15 mg PO DAILY 12/20/22 05/12/23 History clindamycin phosphate 1 % topical 1 applic topical DAILY PRN Unknown 01/25/23 05/12/23 History gel insulin regular hum U-500 conc 500 50 unit (0.1 mL) subcut TID #18 mL 03/17/23 05/12/23 Rx unit/mL(3 mL) subcut pen (Humulin R U-500 (Conc) Insulin Kwikpen) Past Med/Surg History Medical History Ambulatory dysfunction Ankle swelling Anxiety Brain cyst Chronic generalized abdominal pain Chronic low back pain with left-sided sciatica Chronic obstructive pulmonary disease Depression Hypertension Hypokalemia Hypomagnesemia Hyponatremia Insulin dependent diabetes mellitus Left hand paresthesia Narcotic abuse Ongoing, documented by PCP since 2013 Neurogenic claudication due to lumbar spinal stenosis Obesity Opiate dependence Opioid abuse Periapical abscess with facial involvement Pulmonary embolism Reports was anticoagulation x 60 days, not on chronic anticoagulation Rash Syncope Thrombocytopenia Tinea corporis Tinea cruris Uncontrolled type 2 diabetes mellitus Surgical History History of laparoscopic cholecystectomy History of lumbar surgery Hx of oral surgery (02/15/20) Acute right submandibular, submental space infection with floor of mouth infection caused by infected lower teeth. Dr. Rios 02/15/20 S/P dilation and curettage S/P laparoscopic hernia repair S/P laparoscopic procedure ovarian cyst surgery Family History Mother , 73 Heart disease Cancer small cell ca lung caused at 73 Father Skin cancer Brother No problems noted. Sister No problems noted. Grandmother (Maternal) , 48 Heart disease T2DM (type 2 diabetes mellitus) Grandmother (Paternal) , 83 Heart disease Kidney disease Uncle T2DM (type 2 diabetes mellitus) Other Diabetes Obesity Denies family history of Ovarian cancer Breast cancer Colorectal cancer Uterine cancer Social History Smoking Status: Never smoker Tobacco Type: Cigarettes Cigarettes Per Day: 5; Second Hand Exposure: Yes; Do You Dip or Chew Tobacco: No; Hx Alcohol Use: No Hx Substance Use: No Preferred Language: Maori Communication Ability: Effective Visual Impairment: No Limitations Hearing Ability: Normal Cafeteria Cook Required: No Beliefs That Will Affect Care: None marital status: Current Living Situation: Alone Current Living Situation Comment: Lives with son (15yo) current occupational status: unemployed 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 How many Children do You have: 1 Feels Safe at Home: Yes Assistive Devices: Denture - Upper, Denture - Lower, Glasses, Walker and Wheelchair Review of Systems Review of Systems: As per above Physical Exam Physical Exam: Constitutional: well-appearing, no acute distress HEENT: NCAT, no conjunctival injection CV: regular rhythm, no murmur appreciated, extremities well-perfused, no LE edema Resp: CTABL, no wheezes/rales/rhonchi appreciated, no increased work of breathin g GI: soft, nondistended, nontender MSK: strength 5/5 right LE, 4/5 left LE, decreased sensation in left foot Skin: warm, dry, no rash appreciated Results & Data Results & Data Vital Signs (Past 12 Hours) Vital Signs Temp Pulse Pulse Resp BP BP Pulse Ox 05/12/23 17:43 92 H 16 136/92 98 05/12/23 15:25 94 H 18 149/80 H 100 05/12/23 13:54 36.4 C L 114 H 18 151/94 H 97 O2 Del Method 05/12/23 17:43 Room Air 05/12/23 15:25 Room Air 05/12/23 13:54 Room Air Supervising Physician Co-Signing Physician Notes Patient seen and examined, chart reviewed, case discussed with Amanda Colunga, and I agree with the assessment and plan as above except as otherwise noted above. Chronic weakness, tarlov cyst. RLE 5/5, LLE 3/5 with intact sensation and no saddle anesthesia, no bowel/bladder retention/incontinence. Compared to prior discharge exam her strength has diminished slightly in the left lower extremity. Sensation remains intact, no bowel/bladder dysfunction. Given fall and sudden change in strength, although she has progressive decline in the last few days, reasonable to reimage. We will continue home pain medications and multimodal pain control as above. Patient is pending neurosurgical intake at [place]. If MRI stable then can keep these appointments, will likely need placement either rehab or SNF in the interim. Lungs are clear, heart rate is regular. Patient's blood sugar was in the 100s this morning, is hyperglycemic on admission but responded well to fluids and IV insulin. We will continue on basal bolus dosing pharmacy consulted for assistance in management given high requirements. I agree with assessment and management above. Resident Activity Tracking Resident Involvement: Resident Care Provided Care Provided: Adult Hospital Medicine
[2023-05-12] MEDS ORDERED: oxyCODONE HCL IR 5 MG TAB (IMMEDIATE RELEASE) PO PRN (18:57)
[2023-05-12 19:44] LABS: Appearance Urine Clear (Clear); Bacteria Urine Automated Negative (Negative); Bilirubin Urine Negative (Negative); Blood Urine Trace (Negative); Color Urine Yellow; Epithelial Cell Urine Auto >30 /lpf (0-5); Glucose Urine UA 3+ (Negative); Ketones Urine Negative (Negative); Leukocyte Esterase Urine Negative (Negative); Nitrite Urine Negative (Negative); Protein Urine 1+ (Negative); RBC Urine Automated 0-4 /hpf (0-4); Specific Gravity Urine 1.027 (1.000-1.030); Urobilinogen Urine Negative (Negative)
[2023-05-12] MEDS ORDERED: GLUCAGON FOR INJ 1 MG VIAL SQ PRN (19:52)
[2023-05-12] MEDS ORDERED: GLUCOSE 40% GEL 15 GM TUBE PO PRN (19:52)
[2023-05-12] MEDS ORDERED: ALBUTEROL HFA 8 GM INHALER INH PRN (19:52)
[2023-05-12] MEDS ORDERED: CARBOHYDRATES FOR HYPOGLYCEMIA PO PRN (19:52)
[2023-05-12] MEDS ORDERED: PHARMACY GLYCEMIC MGMT CONSULT PRN (19:52)
[2023-05-12] MEDS ORDERED: GLUCOSE 10 TAB/TUBE PO PRN (19:52)
[2023-05-12] MEDS ORDERED: DICLOFENAC SOD 1% GEL 100 GM TUBE EXT PRN (19:52)
[2023-05-12] MEDS ORDERED: DEXTROSE 50% 50 ML SYRINGE IV PRN (19:52)
[2023-05-12] MEDS ORDERED: LIDOCAINE 5% 1 PATCH TD PRN (19:52)
[2023-05-12] MEDS ORDERED: NALOXONE HCL 0.4 MG/1 ML VIAL/CARP IV PRN (20:13)
[2023-05-12] MEDS ORDERED: LANTUS PER UNIT CHARGE SQ SCH (21:00)
[2023-05-12] MEDS: DULoxetine HCL 60 MG CAP PO SCH (21:10)
[2023-05-12] MEDS: GABAPENTIN 800 MG TAB PO SCH (21:11)
[2023-05-12] MEDS: levETIRAcetam 500 MG TAB PO SCH (21:11)
[2023-05-12] MEDS: FAMOTIDINE 40 MG TABLET PO SCH (21:11)
[2023-05-12] MEDS ORDERED: LORazepam 2 MG/1 ML VIAL IV PRN (21:12)
[2023-05-12] MEDS: POLYETHYLENE (MIRALAX) 17 GM PACK PO SCH (21:12)
[2023-05-12] MEDS: MONTELUKAST SODIUM 10 MG TABLET PO SCH (21:12)
[2023-05-12] MEDS: traZODone HCL 100 MG TAB PO SCH (21:12)
[2023-05-12] MEDS: busPIRone 5 MG TAB PO SCH (21:13)
[2023-05-12] MEDS: ENOXAPARIN INJ 40 MG/0.4 ML SYR SQ SCH (21:14)
[2023-05-12] MEDS: INSULIN ASPART PER UNIT CHARGE SC SCH (21:57)
--- NOTE | 2023-05-12 23:42 | Magnetic Resonance Report ---
Exam(s): MRI L SPINE Without Contrast EXAM: MR Lumbar Spine Without Intravenous Contrast CLINICAL HISTORY: Reason for exam: New Left Sided Weakness. TECHNIQUE: Magnetic resonance images of the lumbar spine without intravenous contrast in multiple planes. COMPARISON: 04/13/2023 FINDINGS: Vertebrae: Status post posterior decompression of L3 and L4 with posterior fusion from L3-L5 with bilateral pedicle screws at the L3, L4, and L5 with bridging rods in position. Spinal cord: There are 5 lumbar type vertebral bodies. The conus ends at L1-2. Sacrum/coccyx: Large sacral Tarlov cyst unchanged from prior exam. Soft tissues: Unremarkable. DISCS/SPINAL CANAL/NEURAL FORAMINA: L1-L2: Normal. L2-L3: Bilateral facet degeneration without significant spinal canal or neural foramen stenosis. L3-L4: Prior posterior decompression without recurrent spinal canal or neural foramen stenosis. L4-L5: Prior posterior decompression without recurrent spinal canal or neural foramen stenosis. L5-S1: Left posterior central disc protrusion may contact the S1 nerve root within the lateral recess. No stenosis. IMPRESSION: Left posterior central disc protrusion may contact the S1 nerve root within the lateral recess. Electronically signed by: Bean Lehman M.D. 05/12/23 23:40 PM
[2023-05-13] MEDS: ASPIRIN 81 MG ECTAB PO SCH (08:23)
[2023-05-13] MEDS: PANTOprazole 40 MG TAB PO SCH (08:23)
[2023-05-13] MEDS: busPIRone 5 MG TAB PO SCH ×4 (08:23→20:30)
[2023-05-13] MEDS: MELOXICAM 7.5 MG TAB PO SCH (08:24)
[2023-05-13] MEDS: levETIRAcetam 500 MG TAB PO SCH ×2 (08:24→20:29)
[2023-05-13] MEDS: FAMOTIDINE 40 MG TABLET PO SCH ×2 (08:24→20:29)
[2023-05-13] MEDS: POLYETHYLENE (MIRALAX) 17 GM PACK PO SCH ×4 (08:24→20:32)
[2023-05-13] MEDS: GABAPENTIN 800 MG TAB PO SCH ×3 (08:24→20:30)
[2023-05-13] MEDS: INSULIN ASPART PER UNIT CHARGE SC SCH ×4 (08:36→20:39)
[2023-05-13] MEDS: LANTUS PER UNIT CHARGE SQ SCH ×2 (08:37→20:39)
[2023-05-13] MEDS: oxyCODONE HCL IR 5 MG TAB (IMMEDIATE RELEASE) PO PRN ×2 (08:37→16:05)
--- NOTE | 2023-05-13 11:33 | Hospitalist Progress Note ---
Date of Service May 13, 2023 Assessment & Plan (1) Hyperglycemia: Plan: 52 year old female with a past medical history of opiate dependence, COPD, insulin-dependent DM, morbid obesity, hypertension, narcotic abuse, seizure, lumbar radiculopathy s/p decompression and fusion, large Tarlov cyst extending through L5-S1 presenting with new left sided weakness. Left Lumbar Radiculopathy with new worsening of weakness - New progression of left sided weakness with exam changes - MRI lumbar spine: Left posterior central disc protrusion may contact the S1 nerve root - Continue oxycodone 5mg BID TID - continue Flexeril, meloxicam, gabapentin, diclofenac gel, lidocaine patch - PT/OT evaluations DM 2 Insulin Dependent - Home regimen 100 units Humulin TID - Hyperglycemic to 360s at presentation, down to 140s - Lantus bid 40, correction factor 12, carb ratio 4 - glycemic consult - appreciate recs GERD - continue Pepcid, pantoprazole Depression Anxiety - continue BuSpar, duloxetine, trazodone qHS History of Seizures - continue Keppra COPD - albuterol prn Diet: Carb Consistent Code: Full Dispo: Med-Surg VTE Prophylaxis: Lovenox (2) Weakness: (3) Lumbar back pain with radiculopathy affecting left lower extremity: (4) Recurrent falls: (5) Anxiety: (6) Depression: Admission and Anticipated Discharge Date Admission Date: May 12, 2023 Supervising Physician Co-Signing Physician Notes I personally examined the patient and verified all brennan points of history and exam, discussed case, and agree with decision making with Dr Maxwell weakness. Feels like left leg is worse. Discussed options, she would prefer to try to keep her telehealth appointment with neurosurgery on Tuesday and proceed from there, rather than us trying to affect the hospital to hospital transfer, or her going to [facility]. Vitals noted, in general she is awake and alert. Bilateral lower extremities show a degree of muscle atrophy, symmetric weakness that is probably 4+ out of 5 bilaterally. Falls and weaknessI really suspect it is more deconditioning and biomechanical back pain than anything to do with her spinal disease, but certainly will appreciate neurosurgery opinion. This will be in a few days. PT/OT eval and treat, ideally would be able to get her into rehab but this has not been feasible with her performance status and insurance coverage otherwise as above Subjective 52 year old female with a past medical history of opiate dependence, COPD, insulin-dependent DM, morbid obesity, hypertension, narcotic abuse, seizure, lumbar radiculopathy s/p decompression and fusion, large Tarlov cyst extending through L5-S1 presenting with new left sided weakness. Patient evaluated at bedside, resting comfortably and in no apparent distress. Patient expresses that she is in significant pain, believes this is unlikely to resolve unless she has an operation by neurosurgery to resolve the Tarlov cyst. Patient is scheduled for telehealth appointment with neurosurgery at [facility] [place] on 05/17. Patient conveys that she does not feel safe at home and has been falling repeatedly. States that left leg weakness is chronic but has been worsening lately. Also endorses diminished sensation. Patient with h/o chronic pain, was started on scheduled pain regimen in ED, but states that she usually takes higher doses at home. Review of Systems Review of Systems: All systems reviewed & are unremarkable except as noted in HPI & below Physical Exam Constitutional: WD/WN, vitals as above healthy appearing; no acute distress Respiratory: normal respiratory effort, lungs clear to auscultation Cardiovascular: RRR, no murmur, no edema Gastrointestinal (Abdomen): normal bowel sounds, soft, nontender, no hepatosplenomegaly Musculoskeletal: 5/5 strength in RLE flexion, 2/5 strength in LLE flexion Skin: no rashes, warm and dry Neurologic: AOx4. diminished sensation in all LLE dermatomes compared to right Results & Data Results & Data Vital Signs (Past 12 Hours) Vital Signs Temp Pulse Resp BP Pulse Ox O2 Del Method 05/13/23 07:29 36.7 C 96 H 16 111/77 96 Room Air Resident Activity Tracking Resident Involvement: Resident Care Provided Care Provided: Adult Hospital Medicine
--- NOTE | 2023-05-13 12:22 | Pharmacy Report ---
Pharmacy Glycemic Short Note 2 - Date of Service May 13, 2023 - Glycemic Short BSG Results (Last 24 hours): 05/12/23 05/12/23 05/12/23 14:30 17:41 20:07 Glucose 362 H* POC Glucose 155 H 165 H 05/13/23 05/13/23 07:46 11:51 Glucose POC Glucose 140 H 207 H OUTPATIENT ANTIDIABETIC REGIMEN: * U-500 insulin --> 50 units TID * HbA1C = 11.1% (04/02/23) ASSESSMENT: * Ms Vick is a T2DM who presents with back pain and hyperglycemia. * On presentation, the patient's BSG was 362 mg/dL. She received 10 units of IV insulin. * At dinnertime BSG 155 and bedtime was 165 mg/dL. * Patient received 40 units of Lantus yesterday evening + 17 units of Novolog. It is reported that she took 50 units of U-500 in the morning. * Fasting today is 140 mg/dL. Will resume previous regimen of 40 units BID. This has shown to be effective inhouse. Patient can require more so titrate as appropriate. * Will use Novolog scale similar to previous admissions. PLAN FOR INPATIENT GLYCEMIC CONTROL: * Basal insulin * Lantus 50 units SQ BID * Bolus insulin * NovoLog per scale ACHS or Q6hrs while NPO * Goal Range: Low 110 mg/dL - High 140 mg/dL * Correction Factor: 15 mg/dL/unit * Nutritional / Prandial insulin per carb ratio of 1 unit per 4 grams CHO consumed
[2023-05-13] MEDS ORDERED: ALBUTEROL HFA 8 GM INHALER INH PRN (13:15)
[2023-05-13] MEDS: CYCLOBENZAPRINE HCL 10 MG TAB PO PRN (17:26)
--- NOTE | 2023-05-13 18:26 | Billing Data ---
Date of Service May 13, 2023 Coding Level of Care Code 68910 SUB INP/OBS CARE
[2023-05-13] MEDS: MONTELUKAST SODIUM 10 MG TABLET PO SCH (20:29)
[2023-05-13] MEDS: traZODone HCL 100 MG TAB PO SCH (20:30)
[2023-05-13] MEDS: DULoxetine HCL 60 MG CAP PO SCH (20:30)
[2023-05-13] MEDS: ENOXAPARIN INJ 40 MG/0.4 ML SYR SQ SCH (20:31)
[2023-05-14] MEDS: ACETAMINOPHEN 325 MG TAB PO PRN (03:12)
[2023-05-14] MEDS: oxyCODONE HCL IR 5 MG TAB (IMMEDIATE RELEASE) PO PRN ×3 (03:12→20:59)
--- NOTE | 2023-05-14 07:03 | Hospitalist Progress Note ---
Date of Service May 14, 2023 Assessment & Plan (1) Hyperglycemia: Plan: 52 year old female with a past medical history of opiate dependence, COPD, insulin-dependent DM, morbid obesity, hypertension, narcotic abuse, seizure, lumbar radiculopathy s/p decompression and fusion, large Tarlov cyst extending through L5-S1 presenting with newly worsening left sided weakness. # Left Lumbar Radiculopathy with new worsening of weakness New progression of left sided weakness with exam changes MRI lumbar spine: Left posterior central disc protrusion may contact the S1 nerve root Continue oxycodone 5mg BID TID continue Flexeril, meloxicam, gabapentin, diclofenac gel, lidocaine patch PT/OT evaluations #DM 2 Insulin Dependent Home regimen 100 units Humulin TID Hyperglycemic to 360s at presentation, down to 140s Lantus bid 40, correction factor 12, carb ratio 4 glycemic consult - appreciate recs #GERD continue Pepcid, pantoprazole #Depression Anxiety continue BuSpar, duloxetine, trazodone qHS #History of Seizures continue Keppra #COPD albuterol prn Diet: Carb Consistent Code: Full Dispo: Med-Surg VTE Prophylaxis: Lovenox (2) Weakness: (3) Lumbar back pain with radiculopathy affecting left lower extremity: (4) Recurrent falls: (5) Anxiety: (6) Depression: Admission and Anticipated Discharge Date Admission Date: May 12, 2023 Supervising Physician Co-Signing Physician Notes I personally examined the patient and verified all brennan points of history and exam, discussed case, and agree with decision making with Dr Kj cat whenever I see her. With no new issues identified, and PT/OT input pending, I opted to allow patient to rest. Vitals noted, sleeping, appears to be in no distress. Breathing unlabored. Skin without rashes pallor or icterus. Falls and weaknessI really suspect it is more deconditioning and biomechanical back pain than anything to do with her spinal disease, but jean jaime will appreciate neurosurgery opinionScheduled for Tuesday. Await PT/OThopefully we can get her to rehab, but this has not been feasible between her performance status and her insurance coverage. DVT proph - lovenox otherwise as above Subjective 52 year old female with a past medical history of opiate dependence, COPD, insulin-dependent DM, morbid obesity, hypertension, narcotic abuse, seizure, lumbar radiculopathy s/p decompression and fusion, large Tarlov cyst extending through L5-S1 presenting with newly worsening left sided weakness. This am resting comfortably, NAD. Still experiencing pain and LLE weakness and decreased sensation. Remains convinced that none of her symptoms will resolve until treatment of her Tarlov cyst by [facility] neurosurgery. She has a telehealth visit with them on 05/17/23. Does not feel safe to return home because she is having multiple falls. Review of Systems Review of Systems: reviewed, per HPI Physical Exam Physical Exam: General: patient resting comfortably, NAD, non-toxic in appearance, AA&O x 4, answers questions appropriately and follows commands. Skin: warm, dry, intact HEENT: NC/AT, anicteric sclera, conjunctiva without injection, moist mucus membranes, trachea midline, no thyromegaly, no JVD Heart: +S1/S2, regular, no m/r/g Lungs: equal air entry bilaterally, no rales/rhonchi/wheezes Abd: +BS, soft, NT/ND, no masses/organomegaly/ascites Ext: warm, no clubbing/cyanosis or edema Neuro: nonfocal, patient AA&O x 4, speech intact, no facial droop, moving all extremities on command. Results & Data Results & Data Vital Signs (Past 12 Hours) Vital Signs Temp Pulse Resp BP Pulse Ox O2 Del Method 05/13/23 21:00 37.3 C 101 H 20 117/77 98 Room Air Resident Activity Tracking Resident Involvement: Resident Care Provided Care Provided: Adult Hospital Medicine
[2023-05-14] MEDS: ASPIRIN 81 MG ECTAB PO SCH (08:25)
[2023-05-14] MEDS: PANTOprazole 40 MG TAB PO SCH (08:25)
[2023-05-14] MEDS: FAMOTIDINE 40 MG TABLET PO SCH ×2 (08:26→20:59)
[2023-05-14] MEDS: MELOXICAM 7.5 MG TAB PO SCH (08:26)
[2023-05-14] MEDS: busPIRone 5 MG TAB PO SCH ×4 (08:26→21:01)
[2023-05-14] MEDS: GABAPENTIN 800 MG TAB PO SCH ×3 (08:26→21:00)
[2023-05-14] MEDS: levETIRAcetam 500 MG TAB PO SCH ×2 (08:26→21:00)
[2023-05-14] MEDS: POLYETHYLENE (MIRALAX) 17 GM PACK PO SCH ×2 (08:27→21:01)
[2023-05-14] MEDS: INSULIN ASPART PER UNIT CHARGE SC SCH ×4 (08:33→20:57)
[2023-05-14] MEDS: LANTUS PER UNIT CHARGE SQ SCH ×2 (08:34→20:58)
[2023-05-14] MEDS: ONDANSETRON 4 MG OD TAB PO PRN ×2 (12:38→21:05)
--- NOTE | 2023-05-14 18:42 | Billing Data ---
Date of Service May 14, 2023 Coding Level of Care Code 54269 SUB INP/OBS CARE
[2023-05-14] MEDS: ENOXAPARIN INJ 40 MG/0.4 ML SYR SQ SCH (20:58)
[2023-05-14] MEDS: traZODone HCL 100 MG TAB PO SCH (21:00)
[2023-05-14] MEDS: DULoxetine HCL 60 MG CAP PO SCH (21:01)
[2023-05-14] MEDS: IBUPROFEN 600 MG TAB PO PRN (21:24)
[2023-05-14] MEDS: MONTELUKAST SODIUM 10 MG TABLET PO SCH (21:24)
[2023-05-15] MEDS: oxyCODONE HCL IR 5 MG TAB (IMMEDIATE RELEASE) PO PRN ×2 (06:28→17:06)
[2023-05-15] MEDS: ACETAMINOPHEN 325 MG TAB PO PRN ×2 (06:28→17:07)
[2023-05-15 07:06] LABS: Albumin Globulin Ratio 1.3 (0.9-2); Albumin Level 3.1 gm/dl (3.4-5.0); BUN Creatinine Ratio 15.5 (10-20); Bilirubin,Total 0.3 mg/dl (0.2-1.0); Calcium 8.6 mg/dl (8.6-10.3); Creatinine Clr Calc Pharmacy 131.4 ml/min; Est GFR (African American) 121.1 ml/min; Est GFR (Non-African American) 104.5 ml/min; Globulin 2.4 gm/dl (2.5-4.0); Potassium 3.8 mmol/L (3.5-5.1); Total Protein 5.5 gm/dl (6.0-8.3)
--- NOTE | 2023-05-15 08:21 | Hospitalist Progress Note ---
Date of Service May 15, 2023 Assessment & Plan (1) Hyperglycemia: Plan: 52 year old female with a past medical history of opiate dependence, COPD, insulin-dependent DM, morbid obesity, hypertension, narcotic abuse, seizure, lumbar radiculopathy s/p decompression and fusion, large Tarlov cyst extending through L5-S1 presenting with newly worsening left sided weakness. # Left Lumbar Radiculopathy with new worsening of weakness There is certainly a component of pain with this pt, however, she seems focused on receiving large doses of narcotics She was offered transfer to [place] for more definitive treatment of her condition, but she declined. She will see [facility] telehealth neurosurgery on 05/17/23 May consider again offering transfer for definitive treatment as she does not want to go home and does not want to go to rehab, either. New progression of left sided weakness with exam changes MRI lumbar spine: Left posterior central disc protrusion may contact the S1 nerve root Continue oxycodone 5mg BID TID continue Flexeril, meloxicam, gabapentin, diclofenac gel, lidocaine patch PT/OT evaluations #DM 2 Insulin Dependent Home regimen 100 units Humulin TID Hyperglycemic to 360s at presentation, down to 140s Lantus bid 40, correction factor 12, carb ratio 4 glycemic consult - appreciate recs #GERD continue Pepcid, pantoprazole #Depression Anxiety continue BuSpar, duloxetine, trazodone qHS #History of Seizures continue Keppra #COPD albuterol prn Diet: Carb Consistent Code: Full Dispo: Med-Surg VTE Prophylaxis: Lovenox (2) Weakness: (3) Lumbar back pain with radiculopathy affecting left lower extremity: (4) Recurrent falls: (5) Anxiety: (6) Depression: Admission and Anticipated Discharge Date Admission Date: May 12, 2023 Supervising Physician Co-Signing Physician Notes I personally examined the patient and verified all brennan points of history and exam, discussed case, and agree with decision making with Dr Underwood seen as she was just about to start working with therapy, later revisitednotes ongoing weakness and inability to care for self at home. Notes that back and buttock pain is worse. Looking forward to neurosurgery opinion.. Vitals noted, sleeping, appears to be in no distress. Breathing unlabored. Skin without rashes pallor or icterus. Falls and weaknessI really suspect it is more deconditioning and biomechanical back pain than anything to do with her spinal disease, but certainly will appreciate neurosurgery opinionScheduled for Tuesday. Discussed with patient that she should talk to her insurance liaison to ensure that she is able to have a telehealth visit while she is admitted to the hospital, otherwise we may need to work towards getting her home; also discussed that while I could be wrong, and the Tarlov cyst could potentially be a major culprit, I really doubt that it is, and I suspect that her plan towards recovery will be much more steady therapy and OMT appointments, not that she will require another surgery. Discussed that certainly if the neurosurgeon tells her dramatically differently I would defer to his judgment, but that with what I am seeing I am far more concerned that it is a deconditioning and biomechanical dysfunction issue than a surgical/nerve compression issue. Doubt we will be able to get her qualified for rehab with how well she did with PT today. For the back pain, okay to tighten the oxycodone to every 6 for now, Valium x1 as a muscle relaxant. DVT proph - lovenox otherwise as above Subjective 52 year old female with a past medical history of opiate dependence, COPD, insulin-dependent DM, morbid obesity, hypertension, narcotic abuse, seizure, lumbar radiculopathy s/p decompression and fusion, large Tarlov cyst extending through L5-S1 presenting with newly worsening left sided weakness. This am resting comfortably, NAD. Still experiencing pain and LLE weakness and decreased sensation. Remains convinced that none of her symptoms will resolve until treatment of her Tarlov cyst by [facility] neurosurgery. She has a telehealth visit with them on 05/17/23. Does not feel safe to return home because she is having multiple falls. Again having pain she feels is not well controlled on her current regimen and requesting further opiates. Review of Systems Review of Systems: reviewed, per HPI Physical Exam Physical Exam: General: patient resting comfortably, NAD, non-toxic in appearance, AA&O x 4, answers questions appropriately and follows commands. Skin: warm, dry, intact HEENT: NC/AT, anicteric sclera, conjunctiva without injection, moist mucus membranes, trachea midline, no thyromegaly, no JVD Heart: +S1/S2, regular, no m/r/g Lungs: equal air entry bilaterally, no rales/rhonchi/wheezes Abd: +BS, soft, NT/ND, no masses/organomegaly/ascites Ext: warm, no clubbing/cyanosis or edema Neuro: nonfocal, patient AA&O x 4, speech intact, no facial droop, moving all extremities on command. Results & Data Results & Data Vital Signs (Past 12 Hours) Vital Signs Temp Pulse Resp BP Pulse Ox O2 Del Method 05/15/23 07:40 36.5 C 92 H 16 125/82 97 Room Air 05/14/23 20:27 37.1 C 88 20 136/79 97 Room Air Resident Activity Tracking Resident Involvement: Resident Care Provided Care Provided: Adult Hospital Medicine
[2023-05-15] MEDS: POLYETHYLENE (MIRALAX) 17 GM PACK PO SCH ×2 (08:39→19:59)
[2023-05-15] MEDS: INSULIN ASPART PER UNIT CHARGE SC SCH ×4 (08:43→20:38)
[2023-05-15] MEDS: busPIRone 5 MG TAB PO SCH ×4 (08:44→20:00)
[2023-05-15] MEDS: LANTUS PER UNIT CHARGE SQ SCH ×2 (08:44→20:38)
[2023-05-15] MEDS: levETIRAcetam 500 MG TAB PO SCH ×2 (08:44→20:00)
[2023-05-15] MEDS: PANTOprazole 40 MG TAB PO SCH (08:45)
[2023-05-15] MEDS: FAMOTIDINE 40 MG TABLET PO SCH ×2 (08:45→20:00)
[2023-05-15] MEDS: ASPIRIN 81 MG ECTAB PO SCH (08:45)
[2023-05-15] MEDS: GABAPENTIN 800 MG TAB PO SCH ×3 (08:45→20:00)
[2023-05-15] MEDS: MELOXICAM 7.5 MG TAB PO SCH (08:46)
[2023-05-15] MEDS: FLUTICASONE/VILANTEROL 200/25MCG 14 PUFFS/INHALER INH SCH (10:04)
[2023-05-15] MEDS: CYCLOBENZAPRINE HCL 10 MG TAB PO PRN (11:30)
[2023-05-15] MEDS ORDERED: diazePAM 5 MG TABLET PO ONE (19:03)
--- NOTE | 2023-05-15 19:05 | Billing Data ---
Date of Service May 15, 2023 Coding Level of Care Code 03177 SUB INP/OBS CARE
[2023-05-15] MEDS: MONTELUKAST SODIUM 10 MG TABLET PO SCH (20:00)
[2023-05-15] MEDS: ENOXAPARIN INJ 40 MG/0.4 ML SYR SQ SCH (20:00)
[2023-05-15] MEDS: traZODone HCL 100 MG TAB PO SCH (20:00)
[2023-05-15] MEDS: DULoxetine HCL 60 MG CAP PO SCH (20:00)
[2023-05-16] MEDS: oxyCODONE HCL IR 5 MG TAB (IMMEDIATE RELEASE) PO PRN ×3 (00:45→17:58)
[2023-05-16] MEDS: ACETAMINOPHEN 325 MG TAB PO PRN ×2 (02:45→18:48)
[2023-05-16] MEDS: CYCLOBENZAPRINE HCL 10 MG TAB PO PRN ×2 (02:45→18:48)
[2023-05-16 06:52] LABS: Albumin Globulin Ratio 1.2 (0.9-2); Albumin Level 3.1 gm/dl (3.4-5.0); BUN Creatinine Ratio 15.2 (10-20); Bilirubin,Total 0.3 mg/dl (0.2-1.0); Calcium 8.5 mg/dl (8.6-10.3); Creatinine Clr Calc Pharmacy 115.5 ml/min; Est GFR (African American) 116.1 ml/min; Est GFR (Non-African American) 100.1 ml/min; Globulin 2.5 gm/dl (2.5-4.0); Potassium 4.1 mmol/L (3.5-5.1); Total Protein 5.6 gm/dl (6.0-8.3)
--- NOTE | 2023-05-16 07:22 | Hospitalist Progress Note ---
Date of Service May 16, 2023 Assessment & Plan (1) Hyperglycemia: (2) Weakness: (3) Lumbar back pain with radiculopathy affecting left lower extremity: (4) Recurrent falls: (5) Anxiety: (6) Depression: Plan Pt is a 52 yo female with a past medical history of lumbar radiculopathy s/p decompression and fusion, insulin-dependent DMT2, COPD, HTN, hx seizures, and opioid dependence who presents to the hospital on 05/12/2023 for newly worsening left sided weakness and decreased sensation. # Left Lumbar Radiculopathy with new worsening weakness - Lumbar MRI 05/12 showed large sacral Tarlov cyst and L posterior central disc protrusion to S1 - pending [facility] neuro telehealth consult tomorrow 05/17/23 - pt lives home alone and does not want rehab - given patient's history of opioid dependence and narcotic abuse, will treat pain carefully with emphasis on non-opioid meds - continue oxycodone 5mg BID - continue flexeril, meloxicam, gabapentin, lidocaine patch, and diclofenac gel - appreciate PT/OT evaluations for home with home health for safety checks #DMT2, Insulin Dependent - sugar this am was 483 - home regimen 100 units Humulin TID - continue lantus 40 BID, correction factor 12, carb ratio 4 - continue sliding scale insulin protocol #GERD - continue pepcid - continue pantoprazole #Depression with Anxiety - continue BuSpar, duloxetine, trazodone qHS #History of Seizures - continue Keppra #COPD - continue albuterol prn PM Update: Received a TigerText from P.T. that noted that Elza's knee buckled 4 times with PT today while walking around room. Elza also disclosed that she went to the bathroom by herself and had fallen due to her knee buckling and hit the front of her head on the vanity. Nurse stated she was told the fall happened between 12:45 and 13:00 today. Vitals remained stable. Will continue to monitor. Diet: Carb Consistent Code: Full VTE Prophylaxis: Lovenox Disposition: pending, will need home health per PT upon discharge if pt goes home vs rehab Admission and Anticipated Discharge Date Admission Date: May 12, 2023 Supervising Physician Co-Signing Physician Notes Attending attestation Pt seen and examined in concert with Dr. Hernandez. In agreement with the documented findings as noted in the resident documentation with any exceptions or additions as noted here. Resting comfortably in bed without acute complaint of pain at present. Reports tolerating PT well. Lots of grocery snacks at bedside. Does not feel comfortable RTH right now. Has neurosurg evaluation tomorrow. On examination, S1/S2 nl RRR no MCG. CTAB. Abd NT/ND BS+ve. FROM of the b/l LE without apparent str deficit noted on distracted examination. Ambulatory dysfunction and falls in the setting of left lumbar radiculopathy s/p recent spinal surgery - PT appreciated - counseling re: neurosurgical consultation tomorrow and patient requests to keep appointment even if insurance not to cover due to admission. Still does not want transfer for evaluation/care at [facility] presently. Transition oxycodone to q12h and continue medication management. DMII, insulin dependent, uncontrolled w/ hyperglycemia - continue current ratio and domestic violence counselor re: dietary intake and adjust ISS as needed. Else see resident documentation as noted. Subjective Pt is a 52 yo female with a past medical history of lumbar radiculopathy s/p decompression and fusion, insulin-dependent DMT2, COPD, HTN, hx seizures, and opioid dependence who presents to the hospital on 05/12/2023 for newly worsening left sided weakness and decreased sensation. Today, patient states she is feeling fine today, just a bit restless overnight so she did not sleep as well as previous nights. She states she also has been having 8/10 lower back pain, left > right. No other questions or complaints today. She states that she is looking forward to talking to [facility] Neuro tomorrow to see what their recommendations will be for her Tarlov cyst. When asked how she felt about going home today, she states she would like to get PT today and get stronger before she goes home. Review of Systems Review of Systems: Constitutional: denies fever, chills, Cardio: denies chest pain, palpitations Resp: denies shortness of breath, cough GI: denies abdominal pain, notes some nausea this morning Neuro: notes decreased sensation of her left leg compared to light and L leg weakness Physical Exam Physical Exam: General:Alert and oriented, no acute distress, comfortable appearing female HEENT: Normocephalic, moist oral mucosa, Cardio: Regular rate and rhythm, no murmur, Resp:Lungs clear to auscultation b/l, no wheezes or rhonchi, GI: Soft and nontender, nondistended, bowel sounds active MSK: Decreased sensation of the L leg from the knee down noted by pt when compared to the R leg, muscle strength 4/5 in plantar and dorsiflexion of L leg, knee flexion and extension also 4/5 strength, no edema, no calf tenderness Skin: Warm, pink, dry, Psych: Mood-affect congruence. Results & Data Results & Data Vital Signs (Past 12 Hours) Vital Signs Temp Pulse Resp BP Pulse Ox O2 Del Method 05/15/23 20:26 36.9 C 96 H 18 131/85 94 Room Air Resident Activity Tracking Resident Involvement: Resident Care Provided Care Provided: Adult Hospital Medicine
[2023-05-16] MEDS: INSULIN ASPART PER UNIT CHARGE SC SCH ×4 (08:52→21:51)
[2023-05-16] MEDS: LANTUS PER UNIT CHARGE SQ SCH ×2 (09:00→21:51)
[2023-05-16] MEDS: FAMOTIDINE 40 MG TABLET PO SCH ×2 (09:02→21:42)
[2023-05-16] MEDS: GABAPENTIN 800 MG TAB PO SCH ×3 (09:02→21:41)
[2023-05-16] MEDS: levETIRAcetam 500 MG TAB PO SCH ×2 (09:03→21:42)
[2023-05-16] MEDS: MELOXICAM 7.5 MG TAB PO SCH (09:03)
[2023-05-16] MEDS: busPIRone 5 MG TAB PO SCH ×4 (09:03→21:43)
[2023-05-16] MEDS: ASPIRIN 81 MG ECTAB PO SCH (09:04)
[2023-05-16] MEDS: FLUTICASONE/VILANTEROL 200/25MCG 14 PUFFS/INHALER INH SCH (09:04)
[2023-05-16] MEDS: PANTOprazole 40 MG TAB PO SCH (09:04)
[2023-05-16] MEDS: POLYETHYLENE (MIRALAX) 17 GM PACK PO SCH ×2 (09:04→21:54)
[2023-05-16] MEDS: ONDANSETRON 4 MG OD TAB PO PRN (09:09)
--- NOTE | 2023-05-16 09:31 | Pharmacy Report ---
Pharmacy Glycemic Short Note 2 - Date of Service May 16, 2023 - Glycemic Short BSG Results (Last 24 hours): 05/15/23 05/15/23 05/15/23 11:48 16:40 20:20 Glucose POC Glucose 140 H 125 H 318 H* 05/15/23 05/16/23 05/16/23 20:23 06:17 08:07 Glucose 483 H* POC Glucose 315 H* 377 H* 05/16/23 08:08 Glucose POC Glucose 416 H* OUTPATIENT ANTIDIABETIC REGIMEN: * U-500: 50 units SC TID * HbA1c: 11.1% (04/02/23) ASSESSMENT: 05/16: * Elza received 122 and 128 units of insulin total on Tuesday and Tuesday, respectively. 80 units of basal both days with average of 45 units of bolus. BSGs were acceptable over the weekend: 589-13-219-199 mg/dL and [phone] mg/dL. Patient has a tendency to snack during previous admissions leading to randomly high BSGs which may explain the values > 300. * Today, fasting BSG is significantly elevated from previous days at 416 mg/dL. Suspect patient snacked prior to accucheck. Spoke with RN, Tigist, who states there was no direct visualization of patient snacking but there are many grocery bags from outside in the room. * Will not make any changes to insulin regimen today as I suspect lunchtime BSG to trend down to normal range. Should hyperglycemia continue throughout today, then would consider an adjustment to regimen tomorrow. 05/13: * Ms Vick is a T2DM who presents with back pain and hyperglycemia. * On presentation, the patient's BSG was 362 mg/dL. She received 10 units of IV insulin. * At dinnertime BSG 155 and bedtime was 165 mg/dL. * Patient received 40 units of Lantus yesterday evening + 17 units of Novolog. It is reported that she took 50 units of U-500 in the morning. * Fasting today is 140 mg/dL. Will resume previous regimen of 40 units BID. This has shown to be effective inhouse. Patient can require more so titrate as appropriate. * Will use Novolog scale similar to previous admissions. PLAN FOR INPATIENT GLYCEMIC CONTROL: * Basal insulin * Lantus 40 units SC BID * Bolus insulin * NovoLog per scale ACHS or Q6hrs while NPO * Goal Range: Low 110 mg/dL - High 140 mg/dL * Correction Factor: 20 mg/dL/unit * Nutritional / Prandial insulin per carb ratio of 1 unit per 4 grams CHO consumed
--- NOTE | 2023-05-16 13:14 | Discharge Summary ---
Date of Service May 16, 2023 Admission HPI Per Admitting Provider 52 year old female with a past medical history of opiate dependence, COPD, insulin-dependent DM, morbid obesity, hypertension, narcotic abuse, seizure, lumbar radiculopathy s/p decompression and fusion, large Tarlov cyst extending through L5-S1 presenting with new left sided weakness. Over the past few weeks she has noticed increased weakness on the left side. Overall improvement of strength/pain on the right side.This morning when she woke up she noticed a significant decrease in left lower extremity strength. Unable to walk, fell 3 times. Feels like her left side is giving out. States that she did not have any injuries from the falls. Denies bowel/bladder incontinence, change in sensation, saddle anesthesia. She has an telehealth appointment 05/17 with a neurosurgeon at [facility]. Admission Exam Per Admitting Provider Constitutional: well-appearing, no acute distress HEENT: NCAT, no conjunctival injection CV: regular rhythm, no murmur appreciated, extremities well-perfused, no LE edema Resp: CTABL, no wheezes/rales/rhonchi appreciated, no increased work of breathing GI: soft, nondistended, nontender MSK: strength 5/5 right LE, 4/5 left LE, decreased sensation in left foot Skin: warm, dry, no rash appreciated Principal Diagnosis Worsening Left Lumbar Radiculopathy Discharge Exam General:Alert and oriented, no acute distress, comfortable appearing female HEENT:Normocephalic, moist oral mucosa, Cardio:Regular rate and rhythm, no murmur, Resp:Lungs clear to auscultation b/l, no wheezes or rhonchi, GI:Soft and nontender, nondistended, bowel sounds active MSK:Decreased sensation of the L leg from the knee down noted by pt when compared to the R leg, muscle strength 4/5 in plantar and dorsiflexion of L leg, knee flexion and extension also 4/5 strength, no edema, no calf tenderness Skin:Warm, pink, dry, Psych:Mood-affect congruence. Discharge Data Allergies Allergy/AdvReac Type Severity Reaction Status Date / Time Iodinated Contrast Media Allergy Severe Anaphylaxis Verified 05/12/23 17:38 acetaminophen AdvReac Severe LIVER Verified 05/12/23 17:38 COMPLICATIONS cephalexin AdvReac Severe Vomiting Verified 05/12/23 17:38 levofloxacin [From Levaquin] AdvReac Intermediate Vomiting Verified 05/12/23 17:38 Consultations 05/12/23 17:12 ED Decision to Admit Stat Ordered Studies 05/12/23 16:07 US venous doppler LE LT Stat 05/12/23 18:54 MRI Lumbar Spine [MR lumbar spine wo con] Stat Hospital Course (1) Lumbar back pain with radiculopathy affecting left lower extremity: Stable, - Lumbar MRI 05/12 showed large sacral Tarlov cyst and L posterior central disc protrusion to S1 - given patient's history of opioid dependence, plan treat pain carefully with emphasis on non-opioid medication options - continue meloxicam, gabapentin, lidocaine patch, and diclofenac gel - PT eval recommending home with home health - pt to have [facility] neuro telehealth consult tomorrow 05/17/23 to decide on appropriate intervention options - will transition her oxycodone from q8H to q12H for outpatient pain control - F/u appointment with [facility] for (2) Uncontrolled type 2 diabetes mellitus: Uncontrolled, but stable Blood sugars remained elevated throughout admission, but patient asymptomatic and doing well Pt to restart her regular insulin 50 units TID upon discharge (3) Depression: Chronic, stable Continue BuSpar, duloxetine, and trazodone qHS Total Time Total Time Spent Total Time Spent (In Minutes): As per attending attestation. Discharge Plan Discharge Items Patient Disposition: Home - Home Health Services Reason For Visit: WEAKNESS Discharge Diagnosis: Worsened left-sided lumbar radiculopathy Condition on Discharge: Fair Activity: Resume your previous activity Non-emergency contact: Primary Care Provider Call non-emergency contact if: your symptoms worsen and your temperature is above 101.5 Follow-up/Referrals: Aneudy Pérez MD [Primary Care Provider] - Diet: Carb Consistent or DM2 Addtl Attending Provider Instructions: You were admitted for worsening left lumbar radiculopathy. Your symptoms have improved, and we feel it is safe for you to return home. Medications: Your medication list has been reviewed and reconciled upon discharge to ensure accuracy and continuity of care. An updated list of all your medications is included with your hospital discharge paperwork. Please review this list closely, and make note of any changes. If you have any issues filling these prescriptions, please call [phone] and ask to leave a message for Dr. Hernandez. Take your medications as instructed; do not skip a dose of your medicines. Make sure all of your doctors know every medicine you are taking (including yvoe-gcd-[id number] medicines, vitamins, and supplements). Call your primary care provider before taking any new medicines (including over- the-counter medicines, vitamins, and supplements), because some of these may interact with your current medications, or may make your symptoms worse. Tell your primary care provider if you cannot afford your medications. Activity: You can do normal everyday activities as your body allows. Take rest breaks if you feel tired. Do not overexert. Stop activity if you have pain, shortness of breath or feel dizzy. Follow-up appointments: Make an appointment with your primary care physician within one week of discharge. A copy of this summary will be sent to them. Every time you see your primary care physician, or any other doctor, bring your medication list, a list of questions, and your recent weights. CONTACT YOUR PRIMARY CARE PROVIDER if you experience any of the following: Shortness of breath or difficulty breathing Swelling of your feet, ankles, hands or abdomen Feeling tired with normal activity or experiencing dizziness or fainting Difficulty following your treatment plan, or difficulty taking medications CALL 911 OR GO TO THE EMERGENCY DEPARTMENT if you experience any of the following: Severe back or abdominal pain, or persistent nausea/vomiting Severe chest pain, or chest pain that radiates (moves) to your jaw or arm Sudden, severe shortness of breath or difficulty breathing New loss of bowel or bladder control Sudden loss of motor control of the lower extremities Thank you for allowing us to participate in your care. Pending Studies at Discharge: No Stand-Alone Forms: [facility], Smoking Cessation Medications and DC Order Prescriptions: Continued cyclobenzaprine 10 mg Tablet 10 mg PO BID PRN (Reason: Muscle Spasm) Qty: 0 albuterol sulfate [Ventolin HFA] 90 mcg/actuation Hfa Aerosol Inhaler 2 puff INHALATION Q4H PRN (Reason: Shortness Of Breath Or Wheezing) Qty: 0 Humulin R U-500 (Conc) Kwikpen 500 unit/mL (3 mL) insulin pen 50 unit subcut TID Qty: 18 4RF Rx Instructions: Inject 50 units into the abdomen 3 times per day; injections should be 6-8 hours apart. montelukast [Singulair] 10 mg tablet 10 mg PO HS clindamycin phosphate 1 % gel 1 applic topical DAILY PRN (Reason: Unknown) fluticasone propion-salmeterol [AirDuo RespiClick] 232-14 mcg/actuation aerosol powdr breath activated 2 inh inhalation BID PRN (Reason: Shortness Of Breath) ibuprofen 800 mg tablet 800 mg PO TID PRN (Reason: Pain) Patient Comments: Per PT she uses the meloxicam promethazine 25 mg tablet 25 mg PO Q6H PRN (Reason: Nausea) aspirin 81 mg Tablet,Delayed Release (Dr/Ec) 81 mg PO QAM duloxetine 60 mg capsule,delayed release(DR/EC) 60 mg PO HS buspirone 5 mg tablet 5 mg PO QID nystatin [Nyamyc] 100,000 unit/gram powder 1 applic TOPICAL DIRECTED PRN (Reason: NEEDED ) levetiracetam 1,000 mg tablet 1,000 mg PO BID 30 Days Qty: 60 0RF diclofenac sodium 1 % Gel 4 g TOPICAL QID PRN (Reason: Pain) albuterol sulfate 2.5 mg /3 mL (0.083 %) solution for nebulization 2.5 mg inhalation Q6 PRN (Reason: Wheezing) famotidine 40 mg tablet 40 mg PO BID pantoprazole 20 mg tablet,delayed release (DR/EC) 20 mg PO QAM lidocaine 5 % adhesive patch,medicated 1 patch transdermal DAILY PRN (Reason: Pain) fluticasone propionate [Flonase Allergy Relief] 50 mcg/actuation spray,suspension 1 spray INTRANASAL DAILY PRN (Reason: Congestion) trazodone 100 mg tablet 100 mg PO HS polyethylene glycol 3350 [Miralax] 17 gram/dose Powder 17 g PO BID Patient Comments: Typically uses once a day gabapentin 800 mg tablet 800 mg PO TID ondansetron 4 mg tablet,disintegrating 4 mg PO Q6H PRN (Reason: nausea and vomiting) Qty: 12 0RF meloxicam 15 mg tablet 15 mg PO DAILY Admission Data Admit Date/Time: 05/12/23 18:06 Attending Provider: Aneudy Pérez Admit Provider: Amanda Colunga Primary Care Provider: Aneudy Pérez Other Providers: Pool Crews
[2023-05-16] MEDS: IBUPROFEN 600 MG TAB PO PRN (14:48)
[2023-05-16] MEDS: traZODone HCL 100 MG TAB PO SCH (21:42)
[2023-05-16] MEDS: MONTELUKAST SODIUM 10 MG TABLET PO SCH (21:42)
[2023-05-16] MEDS: DULoxetine HCL 60 MG CAP PO SCH (21:44)
[2023-05-16] MEDS: ENOXAPARIN INJ 40 MG/0.4 ML SYR SQ SCH (21:44)
--- NOTE | 2023-05-16 22:07 | CT Scan Report ---
Exam(s): CT HEAD Without Contrast EXAM: CT Head Without Intravenous Contrast CLINICAL HISTORY: Reason for exam: S/p fall earlier, L pupil not reacting to light. TECHNIQUE: Axial computed tomography images of the head/brain without intravenous contrast. CTDI is 35.37 mGy and DLP is 547.75 mGy-cm. Automated exposure control was utilized for the study. A dose lowering technique was utilized adhering to the principles of ALARA. COMPARISON: No relevant prior studies available. FINDINGS: Brain: Unremarkable. No hemorrhage. No significant white matter disease. No edema. Ventricles: Unremarkable. No ventriculomegaly. Bones/joints: Unremarkable. No acute fracture. Soft tissues: Unremarkable. Sinuses: Unremarkable as visualized. No acute sinusitis. Mastoid air cells: Unremarkable as visualized. No mastoid effusion. IMPRESSION: Normal head/brain CT. Electronically signed by: Parker Claire MD 05/16/23 22:05 PM
[2023-05-17] MEDS: oxyCODONE HCL IR 5 MG TAB (IMMEDIATE RELEASE) PO PRN ×3 (01:55→18:05)
[2023-05-17] MEDS: ACETAMINOPHEN 325 MG TAB PO PRN ×2 (01:55→18:05)
[2023-05-17 08:00] LABS: Albumin Globulin Ratio 1.3 (0.9-2); Albumin Level 3.2 gm/dl (3.4-5.0); BUN Creatinine Ratio 15.4 (10-20); Bilirubin,Total 0.3 mg/dl (0.2-1.0); Calcium 8.8 mg/dl (8.6-10.3); Creatinine Clr Calc Pharmacy 117.2 ml/min; Est GFR (African American) 116.7 ml/min; Est GFR (Non-African American) 100.7 ml/min; Globulin 2.5 gm/dl (2.5-4.0); Potassium 3.9 mmol/L (3.5-5.1); Total Protein 5.7 gm/dl (6.0-8.3)
[2023-05-17] MEDS: busPIRone 5 MG TAB PO SCH ×4 (08:13→20:04)
[2023-05-17] MEDS: FLUTICASONE/VILANTEROL 200/25MCG 14 PUFFS/INHALER INH SCH (08:13)
[2023-05-17] MEDS: GABAPENTIN 800 MG TAB PO SCH ×3 (08:14→20:01)
[2023-05-17] MEDS: levETIRAcetam 500 MG TAB PO SCH ×2 (08:14→20:02)
[2023-05-17] MEDS: FAMOTIDINE 40 MG TABLET PO SCH ×2 (08:14→20:00)
[2023-05-17] MEDS: MELOXICAM 7.5 MG TAB PO SCH (08:15)
[2023-05-17] MEDS: ASPIRIN 81 MG ECTAB PO SCH (08:15)
[2023-05-17] MEDS: PANTOprazole 40 MG TAB PO SCH (08:15)
[2023-05-17] MEDS: POLYETHYLENE (MIRALAX) 17 GM PACK PO SCH ×2 (08:16→20:05)
[2023-05-17] MEDS: INSULIN ASPART PER UNIT CHARGE SC SCH ×4 (08:23→21:12)
[2023-05-17] MEDS ORDERED: LANTUS PER UNIT CHARGE SQ SCH ×2 (09:00→21:00)
--- NOTE | 2023-05-17 11:48 | Discharge Summary ---
Date of Service May 17, 2023 Admission HPI Per Admitting Provider 52 year old female with a past medical history of opiate dependence, COPD, insulin-dependent DM, morbid obesity, hypertension, seizure, lumbar radiculopathy s/p decompression and fusion, large Tarlov cyst extending through L5-S1 presenting with new left sided weakness. Over the past few weeks she has noticed increased weakness on the left side. Overall improvement of strength/pain on the right side.This morning when she woke up she noticed a significant decrease in left lower extremity strength. Unable to walk, fell 3 times. Feels like her left side is giving out. States that she did not have any injuries from the falls. Denies bowel/bladder incontinence, change in sensation, saddle anesthesia. She has an telehealth appointment 05/17 with a neurosurgeon at [facility] [place]. Admission Exam Per Admitting Provider Constitutional: well-appearing, no acute distress HEENT: NCAT, no conjunctival injection CV: regular rhythm, no murmur appreciated, extremities well-perfused, no LE edema Resp: CTABL, no wheezes/rales/rhonchi appreciated, no increased work of breathing GI: soft, nondistended, nontender MSK: strength 5/5 right LE, 4/5 left LE, decreased sensation in left foot Skin: warm, dry, no rash appreciated Principal Diagnosis Worsened left lumbar radiculopathy. Discharge Exam General:Alert and oriented, no acute distress, comfortable appearing female HEENT:Normocephalic, moist oral mucosa, Cardio:Regular rate and rhythm, no murmur, Resp:Lungs clear to auscultation b/l, no wheezes or rhonchi, GI:Soft and nontender, nondistended, bowel sounds active MSK:Decreased sensation of the L leg from the knee down noted by pt when compared to the R leg, muscle strength 4/5 in plantar and dorsiflexion of L leg, knee flexion and extension also 4/5 strength, no edema, no calf tenderness Skin:Warm, pink, dry, Psych:Mood-affect congruence. Discharge Data Allergies Allergy/AdvReac Type Severity Reaction Status Date / Time Iodinated Contrast Media Allergy Severe Anaphylaxis Verified 05/12/23 17:38 acetaminophen AdvReac Severe LIVER Verified 05/12/23 17:38 COMPLICATIONS cephalexin AdvReac Severe Vomiting Verified 08/03/23 17:38 levofloxacin [From Levaquin] AdvReac Intermediate Vomiting Verified 05/12/23 17:38 Consultations 05/12/23 17:12 ED Decision to Admit Stat Ordered Studies 05/12/23 16:07 US venous doppler LE LT Stat 05/12/23 18:54 MRI Lumbar Spine [MR lumbar spine wo con] Stat 05/16/23 18:18 CT head/brain wo con Stat Discharge Plan Discharge Items Patient Disposition: Home - Home Health Services Reason For Visit: WEAKNESS Discharge Diagnosis: Worsened left-sided lumbar radiculopathy Condition on Discharge: Fair Activity: Resume your previous activity Non-emergency contact: Primary Care Provider Call non-emergency contact if: your symptoms worsen and your temperature is above 101.5 Follow-up/Referrals: Aneudy Pérez MD [Primary Care Provider] - Diet: Carb Consistent or DM2 Addtl Attending Provider Instructions: You were admitted for worsening left lumbar radiculopathy. Your symptoms have improved, and we feel it is safe for you to return home. Medications: Your medication list has been reviewed and reconciled upon discharge to ensure accuracy and continuity of care. An updated list of all your medications is included with your hospital discharge paperwork. Please review this list closely, and make note of any changes. If you have any issues filling these prescriptions, please call [phone] and ask to leave a message for Dr. Hernandez. Take your medications as instructed; do not skip a dose of your medicines. Make sure all of your doctors know every medicine you are taking (including [id number] medicines, vitamins, and supplements). Call your primary care provider before taking any new medicines (including over- the-counter medicines, vitamins, and supplements), because some of these may interact with your current medications, or may make your symptoms worse. Tell your primary care provider if you cannot afford your medications. Activity: You can do normal everyday activities as your body allows. Take rest breaks if you feel tired. Do not overexert. Stop activity if you have pain, shortness of breath or feel dizzy. Follow-up appointments: Make an appointment with your primary care physician within one week of discharge. A copy of this summary will be sent to them. Every time you see your primary care physician, or any other doctor, bring your medication list, a list of questions, and your recent weights. CONTACT YOUR PRIMARY CARE PROVIDER if you experience any of the following: Shortness of breath or difficulty breathing Swelling of your feet, ankles, hands or abdomen Feeling tired with normal activity or experiencing dizziness or fainting Difficulty following your treatment plan, or difficulty taking medications CALL 911 OR GO TO THE EMERGENCY DEPARTMENT if you experience any of the following: Severe back or abdominal pain, or persistent nausea/vomiting Severe chest pain, or chest pain that radiates (moves) to your jaw or arm Sudden, severe shortness of breath or difficulty breathing New loss of bowel or bladder control Sudden loss of motor control of the lower extremities Thank you for allowing us to participate in your care. Pending Studies at Discharge: No Stand-Alone Forms: My [facility] [employer], Smoking Cessation Medications and DC Order Prescriptions: Continued cyclobenzaprine 10 mg Tablet 10 mg PO BID PRN (Reason: Muscle Spasm) Qty: 0 albuterol sulfate [Ventolin HFA] 90 mcg/actuation Hfa Aerosol Inhaler 2 puff INHALATION Q4H PRN (Reason: Shortness Of Breath Or Wheezing) Qty: 0 Humulin R U-500 (Conc) Kwikpen 500 unit/mL (3 mL) insulin pen 50 unit subcut TID Qty: 18 4RF Rx Instructions: Inject 50 units into the abdomen 3 times per day; injections should be 6-8 hours apart. montelukast [Singulair] 10 mg tablet 10 mg PO HS clindamycin phosphate 1 % gel 1 applic topical DAILY PRN (Reason: Unknown) fluticasone propion-salmeterol [AirDuo RespiClick] 232-14 mcg/actuation aerosol powdr breath activated 2 inh inhalation BID PRN (Reason: Shortness Of Breath) ibuprofen 800 mg tablet 800 mg PO TID PRN (Reason: Pain) Patient Comments: Per PT she uses the meloxicam promethazine 25 mg tablet 25 mg PO Q6H PRN (Reason: Nausea) aspirin 81 mg Tablet,Delayed Release (Dr/Ec) 81 mg PO QAM duloxetine 60 mg capsule,delayed release(DR/EC) 60 mg PO HS buspirone 5 mg tablet 5 mg PO QID nystatin [Nyamyc] 100,000 unit/gram powder 1 applic TOPICAL DIRECTED PRN (Reason: NEEDED ) levetiracetam 1,000 mg tablet 1,000 mg PO BID 30 Days Qty: 60 0RF diclofenac sodium 1 % Gel 4 g TOPICAL QID PRN (Reason: Pain) albuterol sulfate 2.5 mg /3 mL (0.083 %) solution for nebulization 2.5 mg inhalation Q6 PRN (Reason: Wheezing) famotidine 40 mg tablet 40 mg PO BID pantoprazole 20 mg tablet,delayed release (DR/EC) 20 mg PO QAM lidocaine 5 % adhesive patch,medicated 1 patch transdermal DAILY PRN (Reason: Pain) fluticasone propionate [Flonase Allergy Relief] 50 mcg/actuation spray,suspension 1 spray INTRANASAL DAILY PRN (Reason: Congestion) trazodone 100 mg tablet 100 mg PO HS polyethylene glycol 3350 [Miralax] 17 gram/dose Powder 17 g PO BID Patient Comments: Typically uses once a day gabapentin 800 mg tablet 800 mg PO TID ondansetron 4 mg tablet,disintegrating 4 mg PO Q6H PRN (Reason: nausea and vomiting) Qty: 12 0RF meloxicam 15 mg tablet 15 mg PO DAILY Admission Data Admit Date/Time: 05/12/23 18:06 Attending Provider: Aneudy Pérez Admit Provider: Amanda Colunga Primary Care Provider: Aneudy Pérez Other Providers: Pool Crews ; [employer],[facility]
--- NOTE | 2023-05-17 15:42 | Hospitalist Progress Note ---
Date of Service May 17, 2023 Assessment & Plan (1) Lumbar back pain with radiculopathy affecting left lower extremity: (2) Weakness: (3) Recurrent falls: (4) Anxiety: (5) Hyperglycemia: (6) Depression: Plan Pt is a 52 yo female with a past medical history of lumbar radiculopathy s/p decompression and fusion, insulin-dependent DMT2, COPD, HTN, hx seizures, and opioid dependence who presents to the hospital on 05/12/2023 for newly worsening left sided weakness and decreased sensation. # Left Lumbar Radiculopathy with new worsening weakness - Lumbar MRI 05/12 showed large sacral Tarlov cyst and L posterior central disc protrusion to S1 - given patient's history of opioid dependence and narcotic abuse, will treat pain carefully with emphasis on non-opioid meds - transition her oxycodone 5mg q8h to q12h (her home regime) - continue flexeril, meloxicam, gabapentin, lidocaine patch, and diclofenac gel - [facility] #Status post fall 05/16 - pt noted she fell when she went to the bathroom yesterday unsupervised - head CT yesterday unremarkable, pt asymptomatic since last night - PT recommending home with home PT at this time #DMT2, Insulin Dependent - sugar this am was 342 - home regimen 100 units Humulin TID - continue lantus 40 BID, correction factor 12, carb ratio 4 - continue sliding scale insulin protocol #GERD - continue pepcid - continue pantoprazole #Depression with Anxiety - continue BuSpar, duloxetine, trazodone qHS #History of Seizures - continue Keppra #COPD - continue albuterol prn Diet: Carb Consistent Code: Full VTE Prophylaxis: Lovenox Disposition: Plan for D/C to rehab vs home with home PT services, pending Admission and Anticipated Discharge Date Admission Date: May 12, 2023 Supervising Physician Co-Signing Physician Notes Attending attestation Pt seen and examined in concert with Dr. Hernandez. In agreement with the documented findings as noted in the resident documentation with any exceptions or additions as noted here. Resting comfortably in bed. Working with PT and open to rehab if suggested, emphasizes return to health over return to home. Does c/o chronic pain without acute change at present. Snacks at bedside including a decrease in multiple sleeves of saltine crackers addressed with patient today and encourage avoid excess dietary carbohydrates. On examination, S1/S2 nl RRR no MCG. CTAB. Abd NT/ND BS+ve. No apparent TTP of the forehead with previous injury, nor bruising, ecchymosis Ambulatory dysfunction and falls in the setting of left lumbar radiculopathy s/p recent spinal surgery - PT appreciated - CT head as noted. PT recommending home with HH services. Neurosurg recommends per patient 1 year f/u after healing from recent surgery for re-assess. Return to Oxy q12 in AM. Encourage use of supporting pain mgmt medications if needed DMII, insulin dependent, uncontrolled w/ hyperglycemia - continue current ratio and strongly counseled re: dietary intake and adjust ISS as needed. Else see resident documentation as noted. Subjective Pt is a 52 yo female with a past medical history of lumbar radiculopathy s/p decompression and fusion, insulin-dependent DMT2, COPD, HTN, hx seizures, and opioid dependence who presents to the hospital on 05/12/2023 for newly worsening left sided weakness and decreased sensation. Today, pt states she is feeling well today. She states she is still concerned about not being strong enough to go home, especially after her fall yesterday. She states that her left leg hurt a bit in the morning. She states she feels good since the fall yesterday. She states she no longer has a headache today. No vision changes or dizziness. Review of Systems Review of Systems: Constitutional: denies fever, chills, Cardio: denies chest pain, palpitations Resp: denies shortness of breath, cough GI: denies abdominal pain, notes some nausea this morning Neuro: notes decreased sensation of her left leg compared to light and L leg weakness Physical Exam Physical Exam: General:Alert and oriented, no acute distress, HEENT:Normocephalic, moist oral mucosa, Cardio:Regular rate and rhythm, no murmur, Resp:Lungs clear to auscultation b/l, no wheezes or rhonchi, GI:Soft and nontender, nondistended, bowel sounds active Skin:Warm, pink, dry, Psych:Mood-affect congruence. Results & Data Results & Data Vital Signs (Past 12 Hours) Vital Signs Temp Pulse Resp BP BP Pulse Ox O2 Del Method 05/17/23 15:18 37.0 C 81 19 138/70 95 Room Air 05/17/23 07:30 36.6 C 78 18 108/70 95 Room Air Resident Activity Tracking Resident Involvement: Resident Care Provided Care Provided: Adult Hospital Medicine
[2023-05-17] MEDS: ONDANSETRON 4 MG OD TAB PO PRN (18:11)
[2023-05-17] MEDS: MONTELUKAST SODIUM 10 MG TABLET PO SCH (20:00)
[2023-05-17] MEDS: ENOXAPARIN INJ 40 MG/0.4 ML SYR SQ SCH (20:00)
[2023-05-17] MEDS: DULoxetine HCL 60 MG CAP PO SCH (20:02)
[2023-05-17] MEDS: traZODone HCL 100 MG TAB PO SCH (20:06)
[2023-05-18] MEDS: ACETAMINOPHEN 325 MG TAB PO PRN (04:08)
[2023-05-18] MEDS: oxyCODONE HCL IR 5 MG TAB (IMMEDIATE RELEASE) PO PRN (04:09)
[2023-05-18] MEDS: ONDANSETRON 4 MG OD TAB PO PRN (04:09)
--- NOTE | 2023-05-18 07:40 | Hospitalist Progress Note ---
Date of Service May 18, 2023 Assessment & Plan (1) Lumbar back pain with radiculopathy affecting left lower extremity: (2) Weakness: (3) Recurrent falls: (4) Anxiety: (5) Hyperglycemia: (6) Depression: Plan Pt is a 52 yo female with a past medical history of lumbar radiculopathy s/p decompression and fusion, insulin-dependent DMT2, COPD, HTN, hx seizures, and opioid dependence who presents to the hospital on 05/12/2023 for newly worsening left sided weakness and decreased sensation. # Left Lumbar Radiculopathy with new worsening weakness - Lumbar MRI 05/12 showed large sacral Tarlov cyst and L posterior central disc protrusion to S1 - given patient's history of opioid dependence and narcotic abuse, will treat pain carefully with emphasis on non-opioid meds - transition her oxycodone 5mg q8h to q12h (her home regime) - continue flexeril, meloxicam, gabapentin, lidocaine patch, and diclofenac gel - [facility] neuro telehealth consult pending #Status post fall 05/16 - pt noted she fell when she went to the bathroom yesterday unsupervised - head CT yesterday unremarkable, pt asymptomatic since last night - PT recommending home with home PT at this time #DMT2, Insulin Dependent - sugar this am was 342 - home regimen 100 units Humulin TID - continue lantus 40 BID, correction factor 12, carb ratio 4 - continue sliding scale insulin protocol #GERD - continue pepcid - continue pantoprazole #Depression with Anxiety - continue BuSpar, duloxetine, trazodone qHS #History of Seizures - continue Keppra #COPD - continue albuterol prn Diet: Carb Consistent Code: Full VTE Prophylaxis: Lovenox Disposition: Plan for D/C to rehab vs home with home PT services, pending Admission and Anticipated Discharge Date Admission Date: May 12, 2023 Subjective Pt is a 52 yo female with a past medical history of lumbar radiculopathy s/p decompression and fusion, insulin-dependent DMT2, COPD, HTN, hx seizures, and opioid dependence who presents to the hospital on 05/12/2023 for newly worsening left sided weakness and decreased sensation. Review of Systems Review of Systems: Constitutional: denies fever, chills, Cardio: denies chest pain, palpitations Resp: denies shortness of breath, cough GI: denies abdominal pain, notes some nausea this morning Neuro: notes decreased sensation of her left leg compared to light and L leg weakness Physical Exam Physical Exam: General:Alert and oriented, no acute distress, [] HEENT: Normocephalic, moist oral mucosa, Cardio: Regular rate and rhythm, no murmur, Resp:Lungs clear to auscultation b/l, no wheezes or rhonchi, GI: Soft and nontender, nondistended, bowel sounds active Skin: Warm, pink, dry, Psych: Mood-affect congruence. Results & Data Results & Data Vital Signs (Past 12 Hours) Vital Signs Temp Pulse Pulse Resp BP BP Pulse Ox 05/18/23 07:22 36.6 C 75 16 114/72 97 05/17/23 20:26 36.9 C 87 18 132/64 96 O2 Del Method 05/18/23 07:22 Room Air 05/17/23 20:26 Room Air
[2023-05-18] MEDS ORDERED: oxyCODONE HCL IR 5 MG TAB (IMMEDIATE RELEASE) PO PRN (07:42)
--- NOTE | 2023-05-18 08:34 | Pharmacy Report ---
Pharmacy Glycemic Short Note 2 - Date of Service May 18, 2023 - Glycemic Short BSG Results (Last 24 hours): 05/17/23 05/17/23 05/17/23 11:39 16:41 20:22 POC Glucose 239 H 216 H 283 H 05/18/23 07:44 POC Glucose 292 H OUTPATIENT ANTIDIABETIC REGIMEN: * U-500: 50 units SC TID * HbA1c: 11.1% (04/02/23) ASSESSMENT: 05/18: * Persistent hyperglycemia yesterday, BSGs ranging 216-283 mg/dL * Will tighten correctional insulin and consider further tightening of carb ratio * Received 167 units of insulin (100 units of basal and 67 units of prandial/correctional bolus) * Fasting BSG of 292 mg/dL - will continue increased basal insulin from yesterday 05/16: * Elza received 122 and 128 units of insulin total on Tuesday and Tuesday, respectively. 80 units of basal both days with average of 45 units of bolus. BSGs were acceptable over the weekend: 188-31-685-199 mg/dL and 038-191-284-315 mg/dL. Patient has a tendency to snack during previous admissions leading to randomly high BSGs which may explain the values > 300. * Today, fasting BSG is significantly elevated from previous days at 416 mg/dL. Suspect patient snacked prior to accucheck. Spoke with RN, Tigist, who states there was no direct visualization of patient snacking but there are many grocery bags from outside in the room. * Will not make any changes to insulin regimen today as I suspect lunchtime BSG to trend down to normal range. Should hyperglycemia continue throughout today, then would consider an adjustment to regimen tomorrow. 05/13: * Ms Vick is a T2DM who presents with back pain and hyperglycemia. * On presentation, the patient's BSG was 362 mg/dL. She received 10 units of IV insulin. * At dinnertime BSG 155 and bedtime was 165 mg/dL. * Patient received 40 units of Lantus yesterday evening + 17 units of Novolog. It is reported that she took 50 units of U-500 in the morning. * Fasting today is 140 mg/dL. Will resume previous regimen of 40 units BID. This has shown to be effective inhouse. Patient can require more so titrate as appropriate. * Will use Novolog scale similar to previous admissions. PLAN FOR INPATIENT GLYCEMIC CONTROL: * Basal insulin * Lantus 50 units SC BID * Bolus insulin * NovoLog per scale ACHS or Q6hrs while NPO * Goal Range: Low 110 mg/dL - High 140 mg/dL * Correction Factor: 12 mg/dL/unit * Nutritional / Prandial insulin per carb ratio of 1 unit per 3 grams CHO consumed
[2023-05-18] MEDS: FLUTICASONE/VILANTEROL 200/25MCG 14 PUFFS/INHALER INH SCH (08:59)
[2023-05-18] MEDS: ASPIRIN 81 MG ECTAB PO SCH (09:00)
[2023-05-18] MEDS: PANTOprazole 40 MG TAB PO SCH (09:00)
[2023-05-18] MEDS: GABAPENTIN 800 MG TAB PO SCH ×2 (09:00→13:09)
[2023-05-18] MEDS ORDERED: LANTUS PER UNIT CHARGE SQ SCH (09:00)
[2023-05-18] MEDS: levETIRAcetam 500 MG TAB PO SCH (09:00)
[2023-05-18] MEDS: busPIRone 5 MG TAB PO SCH ×2 (09:00→12:35)
[2023-05-18] MEDS: MELOXICAM 7.5 MG TAB PO SCH (09:00)
[2023-05-18] MEDS: POLYETHYLENE (MIRALAX) 17 GM PACK PO SCH (09:00)
[2023-05-18] MEDS: FAMOTIDINE 40 MG TABLET PO SCH (09:00)
[2023-05-18] MEDS: CYCLOBENZAPRINE HCL 10 MG TAB PO PRN (09:05)
[2023-05-18] MEDS: INSULIN ASPART PER UNIT CHARGE SC SCH ×2 (09:05→12:30)
--- NOTE | 2023-05-18 10:12 | Discharge Summary ---
Date of Service May 18, 2023 Admission HPI Per Admitting Provider 52 year old female with a past medical history of opiate dependence, COPD, insulin-dependent DM, morbid obesity, hypertension, narcotic abuse, seizure, lumbar radiculopathy s/p decompression and fusion, large Tarlov cyst extending through L5-S1 presenting with new left sided weakness. Over the past few weeks she has noticed increased weakness on the left side. Overall improvement of strength/pain on the right side.This morning when she woke up she noticed a significant decrease in left lower extremity strength. Unable to walk, fell 3 times. Feels like her left side is giving out. States that she did not have any injuries from the falls. Denies bowel/bladder incontinence, change in sensation, saddle anesthesia. She has an telehealth appointment 05/17 with a neurosurgeon at [facility] [place] Admission Exam Per Admitting Provider Constitutional: well-appearing, no acute distress HEENT: NCAT, no conjunctival injection CV: regular rhythm, no murmur appreciated, extremities well-perfused, no LE edema Resp: CTABL, no wheezes/rales/rhonchi appreciated, no increased work of breathing GI: soft, nondistended, nontender MSK: strength 5/5 right LE, 4/5 left LE, decreased sensation in left foot Skin: warm, dry, no rash appreciated Principal Diagnosis Left lumbar radiculopathy. Discharge Exam General:Alert and oriented, no acute distress, HEENT: Normocephalic, moist oral mucosa, Cardio: Regular rate and rhythm, no murmur, Resp:Lungs clear to auscultation b/l, no wheezes or rhonchi, GI: Soft and nontender, nondistended, bowel sounds active Skin: Warm, pink, dry, Psych: Mood-affect congruence. Discharge Data Allergies Allergy/AdvReac Type Severity Reaction Status Date / Time Iodinated Contrast Media Allergy Severe Anaphylaxis Verified 05/12/23 17:38 acetaminophen AdvReac Severe LIVER Verified 05/12/23 17:38 COMPLICATIONS cephalexin AdvReac Severe Vomiting Verified 05/12/23 17:38 levofloxacin [From Levaquin] AdvReac Intermediate Vomiting Verified 05/12/23 17: 38 Consultations 05/12/23 17:12 ED Decision to Admit Stat Ordered Studies 05/12/23 16:07 US venous doppler LE LT Stat 05/12/23 18:54 MRI Lumbar Spine [MR lumbar spine wo con] Stat 05/16/23 18:18 CT head/brain wo con Stat Hospital Course (1) Lumbar back pain with radiculopathy affecting left lower extremity: (2) Weakness: (3) Recurrent falls: (4) Anxiety: (5) Hyperglycemia: (6) Depression: Plan Pt is a 52 yo female with a past medical history of lumbar radiculopathy s/p decompression and fusion, insulin-dependent DMT2, COPD, HTN, hx seizures, and opioid dependence who presents to the hospital on 05/12/2023 for newly worsening left sided weakness and decreased sensation. # Left Lumbar Radiculopathy with new worsening weakness, stable - Lumbar MRI 05/12 showed large sacral Tarlov cyst and L posterior central disc protrusion to S1 - given patient's history of opioid dependence and narcotic abuse, will treat pain carefully with emphasis on non-opioid meds - transition her oxycodone 5mg q8h to q12h (her home regime) - continue flexeril, meloxicam, gabapentin, lidocaine patch, and diclofenac gel - [facility] neuro note read, they recommend continuation of physical therapy #Status post fall 05/16, stable - pt noted she fell when she went to the bathroom yesterday unsupervised - head CT yesterday unremarkable, pt asymptomatic since last night - PT recommended home with home PT - no falls since, she has been doing well with PT #DMT2, Insulin Dependent - sugar this am was 342 - home regimen 100 units Humulin TID - continue lantus 40 BID, correction factor 12, carb ratio 4 - continue sliding scale insulin protocol - continue home regime upon discharge #GERD - continue pepcid - continue pantoprazole #Depression with Anxiety - continue BuSpar, duloxetine, trazodone qHS #History of Seizures - continue Keppra #COPD - continue albuterol prn Due to inability to get pt home PT, will send pt home with close PCP follow-up. Pt to have f/u with [facility] Dr. Fajardo on 05/26/23 at 2:45pm. Diet: Carb Consistent Code: Full VTE Prophylaxis: Lovenox Total Time Total Time Spent Total Time Spent (In Minutes): As per attending attestation. Discharge Plan Discharge Items Patient Disposition: Home - Home Health Services Reason For Visit: WEAKNESS Discharge Diagnosis: Left-sided lumbar radiculopathy Condition on Discharge: Fair Activity: Resume your previous activity Non-emergency contact: Primary Care Provider Call non-emergency contact if: your symptoms worsen and your temperature is above 101.5 Follow-up/Referrals: Aneudy Skinner MD [Primary Care Provider] - 05/27/23 10:45 am (WITH DR LITTLE, DR SKINNER IS PRECEPTING.) Diet: Carb Consistent or DM2 Addtl Attending Provider Instructions: You were admitted for worsening left lumbar radiculopathy. Your symptoms have improved, and we feel it is safe for you to return home. Medications: Your medication list has been reviewed and reconciled upon discharge to ensure accuracy and continuity of care. An updated list of all your medications is included with your hospital discharge paperwork. Please review this list closely, and make note of any changes. If you have any issues filling these prescriptions, please call [phone] and ask to leave a message for Dr. Hernandez. Take your medications as instructed; do not skip a dose of your medicines. Make sure all of your doctors know every medicine you are taking (including [id number] medicines, vitamins, and supplements). Call your primary care provider before taking any new medicines (including over- the-counter medicines, vitamins, and supplements), because some of these may interact with your current medications, or may make your symptoms worse. Tell your primary care provider if you cannot afford your medications. Activity: You can do normal everyday activities as your body allows. Take rest breaks if you feel tired. Do not overexert. Stop activity if you have pain, shortness of breath or feel dizzy. Follow-up appointments: Make an appointment with your primary care physician within one week of discharge. A copy of this summary will be sent to them. Every time you see your primary care physician, or any other doctor, bring your medication list, a list of questions, and your recent weights. CONTACT YOUR PRIMARY CARE PROVIDER if you experience any of the following: Shortness of breath or difficulty breathing Swelling of your feet, ankles, hands or abdomen Feeling tired with normal activity or experiencing dizziness or fainting Difficulty following your treatment plan, or difficulty taking medications CALL 911 OR GO TO THE EMERGENCY DEPARTMENT if you experience any of the following: Severe back or abdominal pain, or persistent nausea/vomiting Severe chest pain, or chest pain that radiates (moves) to your jaw or arm Sudden, severe shortness of breath or difficulty breathing New loss of bowel or bladder control Sudden loss of motor control of the lower extremities Thank you for allowing us to participate in your care. Pending Studies at Discharge: No Stand-Alone Forms: My [facility] Medications and DC Order Prescriptions: Continued cyclobenzaprine 10 mg Tablet 10 mg PO BID PRN (Reason: Muscle Spasm) Qty: 0 albuterol sulfate [Ventolin HFA] 90 mcg/actuation Hfa Aerosol Inhaler 2 puff INHALATION Q4H PRN (Reason: Shortness Of Breath Or Wheezing) Qty: 0 Humulin R U-500 (Conc) Kwikpen 500 unit/mL (3 mL) insulin pen 50 unit subcut TID Qty: 18 4RF Rx Instructions: Inject 50 units into the abdomen 3 times per day; injections should be 6-8 hours apart. montelukast [Singulair] 10 mg tablet 10 mg PO HS clindamycin phosphate 1 % gel 1 applic topical DAILY PRN (Reason: Unknown) fluticasone propion-salmeterol [AirDuo RespiClick] 232-14 mcg/actuation aerosol powdr breath activated 2 inh inhalation BID PRN (Reason: Shortness Of Breath) ibuprofen 800 mg tablet 800 mg PO TID PRN (Reason: Pain) Patient Comments: Per PT she uses the meloxicam promethazine 25 mg tablet 25 mg PO Q6H PRN (Reason: Nausea) aspirin 81 mg Tablet,Delayed Release (Dr/Ec) 81 mg PO QAM duloxetine 60 mg capsule,delayed release(DR/EC) 60 mg PO HS buspirone 5 mg tablet 5 mg PO QID nystatin [Nyamyc] 100,000 unit/gram powder 1 applic TOPICAL DIRECTED PRN (Reason: NEEDED ) levetiracetam 1,000 mg tablet 1,000 mg PO BID 30 Days Qty: 60 0RF diclofenac sodium 1 % Gel 4 g TOPICAL QID PRN (Reason: Pain) albuterol sulfate 2.5 mg /3 mL (0.083 %) solution for nebulization 2.5 mg inhalation Q6 PRN (Reason: Wheezing) famotidine 40 mg tablet 40 mg PO BID pantoprazole 20 mg tablet,delayed release (DR/EC) 20 mg PO QAM lidocaine 5 % adhesive patch,medicated 1 patch transdermal DAILY PRN (Reason: Pain) fluticasone propionate [Flonase Allergy Relief] 50 mcg/actuation spray,suspension 1 spray INTRANASAL DAILY PRN (Reason: Congestion) trazodone 100 mg tablet 100 mg PO HS polyethylene glycol 3350 [Miralax] 17 gram/dose Powder 17 g PO BID Patient Comments: Typically uses once a day gabapentin 800 mg tablet 800 mg PO TID ondansetron 4 mg tablet,disintegrating 4 mg PO Q6H PRN (Reason: nausea and vomiting) Qty: 12 0RF meloxicam 15 mg tablet 15 mg PO DAILY Discharge Orders: Discharge Order (Routine); Ordered 05/18/23 Ordered By: Blanche Leonardo/Other Patient Handouts: Managing Chronic Pain Admission Data Admit Date/Time: 05/12/23 18:06 Attending Provider: Aneudy Skinner Admit Provider: Amanda Colunga Primary Care Provider: Aneudy Skinner Other Providers: [employer] ; [facility] Other Interventions: Discharge Summary Assessment (RN) Last Done: 05/18/23 13:23 Supervising Physician Co-Signing Physician Notes Attending attestation Pt seen and examined in concert with Dr. Hernandez. In agreement with the documented findings as noted in the resident documentation with any exceptions or additions as noted here. Resting comfortably in bed. Engaged with PT and accepting of home w/ home health and close outpatient follow up. Repeated counseling re: avoid excess dietary carbohydrates. On examination, S1/S2 nl RRR no MCG. CTAB. Abd NT/ND BS+ve. Ambulatory dysfunction and falls in the setting of left lumbar radiculopathy s/p recent spinal surgery - PT appreciated - CT head as noted. Home with services. Per pt, [facility] Neurosurg recommends 1 year f/u for re-assess. Continue home pain medication regimen DMII, insulin dependent, uncontrolled w/ hyperglycemia - resume home medications strongly counseled re: dietary intake and follow up Else see resident documentation as noted. Total attending physician time spent with this patient's care on the day of discharge: 40 minutes. Resident Activity Tracking Resident Involvement: Resident Care Provided Care Provided: Adult Hospital Medicine
[2023-05-18 10:35] LABS: Albumin Globulin Ratio 1.2 (0.9-2); Albumin Level 3.4 gm/dl (3.4-5.0); BUN Creatinine Ratio 22.8 (10-20); Bilirubin,Total 0.3 mg/dl (0.2-1.0); Creatinine Clr Calc Pharmacy 133.7 ml/min; Est GFR (African American) 121.8 ml/min; Est GFR (Non-African American) 105.1 ml/min; Globulin 2.8 gm/dl (2.5-4.0); Potassium 4.2 mmol/L (3.5-5.1); Total Protein 6.2 gm/dl (6.0-8.3)
== END 2023-05-18 15:23 | disposition home or self-care (01) | DRG 552 ==
LOC: ED 13:44 → 3N 18:06 → SUATTDRO 18:06 → 3N 19:44
DX: E66.01 Morbid (severe) obesity due to excess calories; G40.909 Epilepsy, unspecified, not intractable, without status epilepticus; F11.20 Opioid dependence, uncomplicated; R29.6 Repeated falls; E11.65 Type 2 diabetes mellitus with hyperglycemia; J44.9 Chronic obstructive pulmonary disease, unspecified; Z83.3 Family history of diabetes mellitus; M54.16 Radiculopathy, lumbar region; Z88.1 Allergy status to other antibiotic agents; I10 Essential (primary) hypertension; Z91.041 Radiographic dye allergy status; G81.94 Hemiplegia, unspecified affecting left nondominant side; F41.8 Other specified anxiety disorders; Z79.82 Long term (current) use of aspirin; K21.9 Gastro-esophageal reflux disease without esophagitis

== ENCOUNTER 2024-01-11 14:40 | Observation (INO) ==
--- NOTE | 2024-01-11 15:26 | Emergency Department Note ---
Impression & Plan Acute hyperglycemia ADMIT ED Provider Note HPI: History obtained from patient. The patient is a 53-year-old female with history of neurogenic claudication secondary to lumbar spinal stenosis, status post decompression surgery in October [address] Sharpe, who presents emergency department with multiple issues today. Patient states earlier today she felt lightheaded, when she was ambulating she hit her right muro against the couch and now has a bruise with blister formation over the bruise. Patient states at times she has weakness in her left lower extremity which is transient in nature and is a chronic problem. Patient states that generally she feels unwell, she states she is having ambulatory issues at home and would like to be admitted to the hospital. ROS: - Per HPI Differential Diagnosis: Acute on chronic ambulatory dysfunction, DKA, acute coronary syndrome, arrhythmia, dehydration/acute kidney injury, cellulitis, amongst other potential pathologies. *Outpatient medications and allergy history reviewed. PE: General: Alert HEENT: Normocephalic, trachea midline Eyes: Extraocular eye movement is intact, no scleral erythema Pulmonary: Clear to auscultation bilaterally, no wheezing Cardio: Regular rate and rhythm GI: Abdomen is soft to palpation : No suprapubic tenderness MSK: No evidence of trauma or malformation of the extremities, no edema Skin: Erythematous lesion extending over the surface of the right muro with flaccid nonruptured blister formation, otherwise no evidence of rash Neuro: Alert, no focal deficits Psychiatric: Cooperative INDEPENDENT INTERPRETATIONS: environmental monitoring specialist: (As interpreted by myself): - An order was placed for continuous cardiac monitoring - Patient was noted to be in sinus rhythm with a rate of 95 EKG: (As interpreted by myself): Rate: 100 Rhythm: Normal sinus rhythm Intervals: ID interval 206 ms, otherwise within normal limits ST changes: No ST elevation Time: 1529 Chest x-ray: (As interpreted by myself): No acute disease Interventions provided in ED: -IV fluid bolus, IV morphine, IV Zofran, IV insulin bolus Medical Decision Making: IV was established and lab work obtained, patient was placed on picture engraver. Lab work shows no leukocytosis, hemoglobin is stable, platelet count is normal, venous blood gas shows normal pH, CMP shows critically high glucose at 547 however anion gap is not elevated and the patient serum bicarbonate level is 25. Viral panel testing was obtained and is negative. Chest x-ray does not show any evidence of pneumonia. Patient was given IV fluids and IV insulin, she does have a contusion to the right lower extremity with a flaccid blister overlying the contusion that has not ruptured. There is no crepitus to palpation of the surrounding soft tissue, no pain out of proportion to exam, low suspicion for compartment syndrome or necrotizing soft tissue infection. On my reassessment patient states that she feels too weak to go home, she would like to be admitted to the hospital for PT/OT and to discuss her insulin regimen. She states that she has been compliant and she is unsure why her blood sugars are so high. Patient was given IV insulin here in the ED, she was given IV fluids, I did discuss the patient's presentation with the on-call hospitalist, Dr. Park, and the patient was placed for admission in stable condition. Consultants/Discussions held with other healthcare providers: -Hospitalist, Dr. Park Disposition discussion held by myself with: -Patient Diagnosis: 1. Hyperglycemia, acute 2. Ambulatory dysfunction, acute on chronic 3. Right lower extremity contusion, acute Disposition: Admission Leo Burton DO Emergency Medicine Past Med/Surg History Medical History (Updated 01/11/24 @ 21:01 by Leo Burton DO) Recurrent falls Acute hyperglycemia Opiate dependence Ankle swelling Rash Narcotic abuse Ongoing, documented by PCP since 2013 Neurogenic claudication due to lumbar spinal stenosis Ambulatory dysfunction Hypomagnesemia Hypokalemia Chronic generalized abdominal pain Left hand paresthesia Syncope Thrombocytopenia Tinea corporis Tinea cruris Periapical abscess with facial involvement Insulin dependent diabetes mellitus Uncontrolled type 2 diabetes mellitus Hyponatremia Chronic low back pain with left-sided sciatica Opioid abuse Pulmonary embolism Reports was anticoagulation x 60 days, not on chronic anticoagulation Depression Anxiety Chronic obstructive pulmonary disease Obesity Hypertension Brain cyst Surgical History History of lumbar surgery S/P laparoscopic procedure ovarian cyst surgery S/P dilation and curettage Hx of oral surgery (02/15/20) Acute right submandibular, submental space infection with floor of mouth infection caused by infected lower teeth. Dr. Rios 02/15/20 S/P laparoscopic hernia repair History of laparoscopic cholecystectomy Family History Mother , 73 Heart disease Cancer small cell ca lung caused at 73 Father Skin cancer Brother No problems noted. Sister No problems noted. Grandmother (Maternal) , 48 Heart disease T2DM (type 2 diabetes mellitus) Grandmother (Paternal) , 83 Heart disease Kidney disease Uncle T2DM (type 2 diabetes mellitus) Other Diabetes Obesity Denies family history of Ovarian cancer Breast cancer Colorectal cancer Uterine cancer Social History Smoking Status: Never smoker Tobacco Type: Cigarettes Cigarettes Per Day: 5; Second Hand Exposure: Yes; Do You Dip or Chew Tobacco: No; Hx Alcohol Use: No Hx Substance Use: No Preferred Language: Belarusian Communication Ability: Effective Visual Impairment: No Limitations Hearing Ability: Normal Revenue Settlements Administrator Required: No Beliefs That Will Affect Care: None marital status: Current Living Situation: Alone Current Living Situation Comment: Lives with son (15yo) current occupational status: unemployed 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 How many Children do You have: 1 Feels Safe at Home: Yes Assistive Devices: Denture - Upper, Denture - Lower, Walker and Wheelchair Allergies Allergies Allergy/AdvReac Type Severity Reaction Status Date / Time Iodinated Contrast Media Allergy Severe Anaphylaxis Verified 01/11/24 19:14 acetaminophen AdvReac Severe LIVER Verified 01/11/24 19:14 COMPLICATIONS cephalexin AdvReac Severe Vomiting Verified 01/11/24 19:14 levofloxacin [From Levaquin] AdvReac Intermediate Vomiting Verified 01/11/24 19:14 Home Meds Home Medications Medication Instructions Recorded Confirmed cyclobenzaprine 10 mg tablet 10 mg PO BID PRN Muscle Spasm ##0 11/18/17 01/11/24 albuterol sulfate 90 mcg/actuation 2 puff inhalation Q4H PRN 02/10/18 01/11/24 aerosol inhaler (Ventolin HFA) Shortness Of Breath Or Wheezing ##0 ibuprofen 800 mg tablet 800 mg PO TID PRN Pain 10/24/19 01/11/24 promethazine 25 mg tablet 25 mg PO Q6H PRN Nausea 10/24/19 01/11/24 fluticasone 232 mcg-salmeterol 14 2 inh inhalation BID PRN Shortness 08/21/20 01/11/24 mcg/actuation breath activated Of Breath powdr (AirDuo RespiClick) montelukast 10 mg tablet 10 mg PO HS 09/01/20 01/11/24 (Singulair) aspirin 81 mg tablet,delayed 81 mg PO QAM 10/28/20 01/11/24 release diclofenac sodium 1 % topical gel 4 g topical QID PRN Pain 07/20/21 01/11/24 albuterol sulfate 2.5 mg/3 mL 2.5 mg inhalation Q6 PRN Wheezing 01/19/22 01/11/24 (0.083 %) solution for nebulization famotidine 40 mg tablet 40 mg PO BID 01/19/22 01/11/24 fluticasone propionate 50 1 spray intranasal DAILY PRN 01/19/22 01/11/24 mcg/actuation nasal Congestion spray,suspension (Flonase Allergy Relief) lidocaine 5 % topical patch 1 patch transdermal DAILY PRN Pain 01/19/22 01/11/24 pantoprazole 20 mg tablet,delayed 20 mg PO QAM 01/19/22 01/11/24 release polyethylene glycol 3350 17 17 g PO BID 01/29/22 01/11/24 gram/dose oral powder (Miralax) trazodone 100 mg tablet 100 mg PO HS 01/29/22 01/11/24 duloxetine 60 mg capsule,delayed 60 mg PO HS 03/12/22 01/11/24 release gabapentin 800 mg tablet 800 mg PO TID 04/05/22 01/11/24 buspirone 5 mg tablet 5 mg PO QID 07/30/22 01/11/24 nystatin 100,000 unit/gram topical 1 applic topical DIRECTED PRN 10/12/22 01/11/24 powder ([facility]) NEEDED meloxicam 15 mg tablet 15 mg PO DAILY 12/20/22 01/11/24 clindamycin phosphate 1 % topical 1 applic topical DAILY PRN Unknown 01/25/23 01/11/24 gel Previous Rx's Medication Instructions Recorded ondansetron 4 mg disintegrating 4 mg PO Q6H PRN nausea and 08/11/22 tablet vomiting #12 tabs levetiracetam 1,000 mg tablet 1,000 mg PO BID 30 days #60 tabs 12/11/22 insulin regular hum U-500 conc 500 50 unit (0.1 mL) subcut TID #18 mL 05/24/23 unit/mL(3 mL) subcut pen (Humulin R U-500 (Conc) Insulin Kwikpen) Results & Data (ED) Vital Signs Vital Signs - 24 hr 01/11/24 14:42 01/11/24 15:19 01/11/24 15:30 Temperature 37.8 C H Temperature Source Oral Pulse Rate 120 H 98 H Pulse Rate [Apical] Pulse Rhythm [Apical] Pulse Strength [Apical] Respiratory Rate 18 18 17 Respiratory Effort / Characteristics Non-Labored Spontaneous Non-Labored Respiratory Depth Normal Normal Respiratory Pattern Blood Pressure 134/97 Blood Pressure [Right Arm] 122/87 Blood Pressure Mean 109 Blood Pressure Mean [Right Arm] 98 Pulse Oximetry 95 95 Oxygen Delivery Method Room Air Room Air Room Air Sepsis Recent Fever Within 48 Hours No Sepsis New/Unexplained Change in Mental Status No Sepsis Action Taken by Nursing No Action Required 01/11/24 16:32 01/11/24 18:11 Temperature Temperature Source Pulse Rate 97 H Pulse Rate [Apical] 92 H Pulse Rhythm [Apical] Regular Pulse Strength [Apical] Normal Respiratory Rate 18 Respiratory Effort / Characteristics Non-Labored Respiratory Depth Normal Respiratory Pattern Regular Blood Pressure Blood Pressure [Right Arm] 113/77 Blood Pressure Mean Blood Pressure Mean [Right Arm] 89 Pulse Oximetry 94 Oxygen Delivery Method Room Air Sepsis Recent Fever Within 48 Hours Sepsis New/Unexplained Change in Mental Status Sepsis Action Taken by Nursing Laboratory Data 01/11/24 16:01 01/11/24 14:45 Lab Results 01/11/24 01/11/24 01/11/24 Range/Units 14:45 15:30 16:01 WBC Cancelled 8.15 RBC Cancelled 4.01 L Hgb Cancelled 12.6 Hct Cancelled 37.4 MCV Cancelled 93.3 MCH Cancelled 31.4 MCHC Cancelled 33.7 RDW Std Deviation Cancelled 48.2 H RDW Coeff of Kelli Cancelled 14.1 Plt Count Cancelled 164 MPV Cancelled 12.5 H Immature Gran % (Auto) Cancelled 0.4 Neut % (Auto) Cancelled 73.1 Lymph % (Auto) Cancelled 18.2 [place] % (Auto) Cancelled 7.0 Eos % (Auto) Cancelled 0.9 Baso % (Auto) Cancelled 0.4 Neut # (Auto) Cancelled 5.97 Lymph # (Auto) Cancelled 1.48 [place] # (Auto) Cancelled 0.57 Eos # (Auto) Cancelled 0.07 Baso # (Auto) Cancelled 0.03 Immature Gran # (Auto) Cancelled 0.03 Absolute Nucleated RBC Cancelled Nucleated RBC % (auto) Cancelled Neutrophils % (Manual) Cancelled Band Neutrophils % Cancelled Lymphocytes % (Manual) Cancelled Prolymphocyte % Cancelled Reactive Lymphs % (Man) Cancelled Monocytes % (Manual) Cancelled Eosinophils % (Manual) Cancelled Basophils % (Manual) Cancelled Metamyelocytes % (Man) Cancelled Myelocytes % (Man) Cancelled Promyelocytes % (Man) Cancelled Blast Cells % (Manual) Cancelled Plasma Cell % (Manual) Cancelled Other Cells % Cancelled Nucleated RBC % Cancelled Neutrophils # (Manual) Cancelled Band Neutrophils # Cancelled Total Absolute Neuts Cancelled Lymphocytes # (Manual) Cancelled Prolymphocyte # Cancelled Reactive Lymphs # Cancelled Total Abs Lymphocytes Cancelled Monocytes # (Manual) Cancelled Eosinophils # (Manual) Cancelled Basophils # (Manual) Cancelled Metamyelocytes # (Man) Cancelled Myelocytes # (Manual) Cancelled Promyelocytes # (Man) Cancelled Blast Cells # (Man) Cancelled Plasma Cell # (Manual) Cancelled Other Cells # Cancelled Nucleated RBCs # (Man) Cancelled Hypersegmented Neuts Cancelled Hyposegmented Neuts Cancelled Hypogranular Neuts Cancelled Large Granular Lymphs Cancelled # Lrg Granular Lymphs Cancelled Hairy Cells Cancelled Smudge Cells Cancelled Toxic Granulation Cancelled Toxic Vacuolation Cancelled Dohle Bodies Cancelled Melany Rods Cancelled Platelet Estimate Cancelled Hypogranular Platelets Cancelled Giant Platelets Cancelled Platelet Satelliting Cancelled RBC Morphology Cancelled Polychromasia Cancelled Hypochromasia Cancelled Poikilocytosis Cancelled Basophilic Stippling Cancelled Anisocytosis Cancelled Microcytosis Cancelled Macrocytosis Cancelled Spherocytes Cancelled Pappenheimer Bodies Cancelled Sickle Cells Cancelled Target Cells Cancelled Tear Drop Cells Cancelled Ovalocytes Cancelled Stomatocytes Cancelled Painting[place] Bodies Cancelled Echinocytes Cancelled Acanthocytes (Spur) Cancelled Rouleaux Cancelled RBC Agglutinates Cancelled Schistocytes Cancelled Sezary Cell Cancelled PT Cancelled Cancelled INR Cancelled Cancelled VBG pH 7.40 (7.36-7.41) VBG pCO2 49 (38-50) mmHg VBG pO2 28 mmHg VBG HCO3 30 mmol/L VBG O2 Saturation < 60.0 % VBG Base Excess 4.5 mEq/L Sodium 133 L (136-145) mmol/L Potassium 3.7 (3.5-5.1) mmol/L Chloride 99 (98-107) mmol/L Carbon Dioxide 25 (21-32) mmol/L Anion Gap 9 (3-11) BUN 8 (6-23) mg/dl Creatinine 0.69 (0.6-1.2) mg/dl Est Cr Clr Drug Dosing 105.2 ml/min Est GFR ( Amer) 113.6 ml/min Est GFR (Non-Af Amer) 98.0 ml/min BUN/Creatinine Ratio 11.6 (10-20) Glucose 547 H* (70-99(Fasting)) mg/dl POC Glucose (70-99) mg/dl Calcium 9.3 (8.6-10.3) mg/dl Total Bilirubin 0.6 (0.2-1.0) mg/dl AST 20 (13-39) U/L ALT 21 (7-52) U/L Alkaline Phosphatase 190 H (34-104) U/L Troponin I High Sens 4.4 (0-14) pg/ml Total Protein 7.0 (6.0-8.3) gm/dl Albumin 3.8 (3.4-5.0) gm/dl Globulin 3.2 (2.5-4.0) gm/dl Albumin/Globulin Ratio 1.2 (0.9-2) Lipase 4 L (11-82) U/L Adenovirus (PCR) (NotDetected) B. pertussis DNA (PCR) (NotDetected) B.parapertussis DNA PCR (NotDetected) C. pneumoniae DNA (PCR) (NotDetected) Coronavirus OC43 (PCR) (NotDetected) Coronavirus HKU1 (PCR) (NotDetected) Coronavirus 229E (PCR) (NotDetected) SARS-CoV-2 (PCR) (NotDetected) Coronavirus NL63 (PCR) (NotDetected) Human Metapneumovir PCR (NotDetected) Influenza Type A (PCR) (NotDetected) Influenza Type B (PCR) (NotDetected) M. pneumoniae (PCR) (NotDetected) Parainfluenza 1 (PCR) (NotDetected) Parainfluenza 2 (PCR) (NotDetected) Parainfluenza 3 (PCR) (NotDetected) Parainfluenza 4 (PCR) (NotDetected) RSV (PCR) (NotDetected) Entero/Rhino (PCR) (NotDetected) Blood Parasites ID Cancelled 01/11/24 01/11/24 01/11/24 Range/Units 16:42 17:48 17:49 WBC RBC Hgb Hct MCV MCH MCHC RDW Std Deviation RDW Coeff of Kelli Plt Count MPV Immature Gran % (Auto) Neut % (Auto) Lymph % (Auto) [place] % (Auto) Eos % (Auto) Baso % (Auto) Neut # (Auto) Lymph # (Auto) [place] # (Auto) Eos # (Auto) Baso # (Auto) Immature Gran # (Auto) Absolute Nucleated RBC Nucleated RBC % (auto) Neutrophils % (Manual) Band Neutrophils % Lymphocytes % (Manual) Prolymphocyte % Reactive Lymphs % (Man) Monocytes % (Manual) Eosinophils % (Manual) Basophils % (Manual) Metamyelocytes % (Man) Myelocytes % (Man) Promyelocytes % (Man) Blast Cells % (Manual) Plasma Cell % (Manual) Other Cells % Nucleated RBC % Neutrophils # (Manual) Band Neutrophils # Total Absolute Neuts Lymphocytes # (Manual) Prolymphocyte # Reactive Lymphs # Total Abs Lymphocytes Monocytes # (Manual) Eosinophils # (Manual) Basophils # (Manual) Metamyelocytes # (Man) Myelocytes # (Manual) Promyelocytes # (Man) Blast Cells # (Man) Plasma Cell # (Manual) Other Cells # Nucleated RBCs # (Man) Hypersegmented Neuts Hyposegmented Neuts Hypogranular Neuts Large Granular Lymphs # Lrg Granular Lymphs Hairy Cells Smudge Cells Toxic Granulation Toxic Vacuolation Dohle Bodies Melany Rods Platelet Estimate Hypogranular Platelets Giant Platelets Platelet Satelliting RBC Morphology Polychromasia Hypochromasia Poikilocytosis Basophilic Stippling Anisocytosis Microcytosis Macrocytosis Spherocytes Pappenheimer Bodies Sickle Cells Target Cells Tear Drop Cells Ovalocytes Stomatocytes Painting[place] Bodies Echinocytes Acanthocytes (Spur) Rouleaux RBC Agglutinates Schistocytes Sezary Cell PT 11.9 INR 1.1 VBG pH (7.36-7.41) VBG pCO2 (38-50) mmHg VBG pO2 mmHg VBG HCO3 mmol/L VBG O2 Saturation % VBG Base Excess mEq/L Sodium (136-145) mmol/L Potassium (3.5-5.1) mmol/L Chloride (98-107) mmol/L Carbon Dioxide (21-32) mmol/L Anion Gap (3-11) BUN (6-23) mg/dl Creatinine (0.6-1.2) mg/dl Est Cr Clr Drug Dosing ml/min Est GFR ( Amer) ml/min Est GFR (Non-Af Amer) ml/min BUN/Creatinine Ratio (10-20) Glucose (70-99(Fasting)) mg/dl POC Glucose 360 H* (70-99) mg/dl Calcium (8.6-10.3) mg/dl Total Bilirubin (0.2-1.0) mg/dl AST (13-39) U/L ALT (7-52) U/L Alkaline Phosphatase (34-104) U/L Troponin I High Sens (0-14) pg/ml Total Protein (6.0-8.3) gm/dl Albumin (3.4-5.0) gm/dl Globulin (2.5-4.0) gm/dl Albumin/Globulin Ratio (0.9-2) Lipase (11-82) U/L Adenovirus (PCR) Not Detected (NotDetected) B. pertussis DNA (PCR) Not Detected (NotDetected) B.parapertussis DNA PCR Not Detected (NotDetected) C. pneumoniae DNA (PCR) Not Detected (NotDetected) Coronavirus OC43 (PCR) Not Detected (NotDetected) Coronavirus HKU1 (PCR) Not Detected (NotDetected) Coronavirus 229E (PCR) Not Detected (NotDetected) SARS-CoV-2 (PCR) Not Detected (NotDetected) Coronavirus NL63 (PCR) Not Detected (NotDetected) Human Metapneumovir PCR Not Detected (NotDetected) Influenza Type A (PCR) Not Detected (NotDetected) Influenza Type B (PCR) Not Detected (NotDetected) M. pneumoniae (PCR) Not Detected (NotDetected) Parainfluenza 1 (PCR) Not Detected (NotDetected) Parainfluenza 2 (PCR) Not Detected (NotDetected) Parainfluenza 3 (PCR) Not Detected (NotDetected) Parainfluenza 4 (PCR) Not Detected (NotDetected) RSV (PCR) Not Detected (NotDetected) Entero/Rhino (PCR) Not Detected (NotDetected) Blood Parasites ID Administered Medications Discontinued Medications Sodium Chloride (Nss) 500 mls @ 999 mls/hr IV .Q31M STA Stop: 01/11/24 15:48 Last Infusion: 01/11/24 16:11 Dose: Infused Documented By: Admin: 01/11/24 15:36 Dose: 999 mls/hr Documented By: [email or web address] Insulin Human Regular (Novolin-R Insulin Per Unit Charge) 8 units IV NOW STA Stop: 01/11/24 16:29 Last Admin: 01/11/24 16:42 Dose: 8 units Documented By: Co-signed By: CHASE Morphine Sulfate (Morphine Sulfate 4 Mg/Ml 1 Ml Carp\Vial) 4 mg IV NOW STA Stop: 01/11/24 15:28 Last Admin: 01/11/24 15:38 Dose: 4 mg Documented By: KG Ondansetron HCl (Ondansetron Inj 2 Mg/Ml 2 Ml Vial) 4 mg IV NOW STA Stop: 01/11/24 15:28 Last Admin: 01/11/24 15:38 Dose: 4 mg Documented By: KG Imaging Data Radiologist's Impression: Chest X-Ray 01/11/24 17:41 SINGLE VIEW CHEST CLINICAL HISTORY: Generalized weakness. FINDINGS: An AP, portable, upright chest radiograph is compared to study dated 07/28/2023. The examination is degraded by portable technique and patient rotation. The cardiomediastinal silhouette is unremarkable. There is mild elevation of the left hemidiaphragm. The lungs and pleural spaces are clear. No pneumothorax is seen. The bony thorax is grossly intact. IMPRESSION: No active disease in the chest. ACT 112: Negative or not required by law. Electronically signed by: Kumar Caldwell M.D. 01/11/2024 7:24 PM Discharge Plan Visit Data Chief Complaint: Fall Stated Complaint: FALL, LIGHTHEADED, FLUID RETENTION, HYPERGLYCEMIA ED Provider: Leo Burton Discharge Problem: Acute hyperglycemia Discharge Instructions Interventions: ED Discharge Assessment Last Done: 01/11/24 19:37
[2024-01-11] MEDS: SODIUM CHLORIDE 0.9% 500 ML IV STA (15:36)
[2024-01-11] MEDS: ONDANSETRON INJ 2 MG/ML 2 ML VIAL IV STA (15:38)
[2024-01-11] MEDS: MoRPHine SULFATE 4 MG/ML 1 ML CARP\\VIAL IV STA (15:38)
[2024-01-11 16:11] LABS: Base Excess VBG 4.5 mEq/L; HCO3 VBG 30 mmol/L; Oxygen Saturation VBG < 60.0 %; PCO2 VBG 49 mmHg (38-50); PO2 VBG 28 mmHg
[2024-01-11 16:13] LABS: Basophils # (auto) 0.03 K/uL (0.00-0.20); Basophils % (auto) 0.4 %; Eosinophils # (auto) 0.07 K/uL (0.00-0.50); Eosinophils % (auto) 0.9 %; Hematocrit (blood only) 37.4 % (37.0-47.0); Hemoglobin 12.6 g/dl (12.0-16.0); Immature Granulocytes # (auto) 0.03 K/uL (0.01-0.20); Immature Granulocytes % (auto) 0.4 %; Lymphocytes # (auto) 1.48 K/uL (1.20-3.40); Lymphocytes % (auto) 18.2 %; Mean Corpuscular Hemoglobin 31.4 pg (25.0-34.0); Mean Corpuscular Hgb Conc 33.7 g/dL (32.0-36.0); Mean Corpuscular Volume 93.3 fL (80.0-100.0); Mean Platelet Volume 12.5 fL (9.4-12.4); Monocytes # (auto) 0.57 K/uL (0.11-0.59); Neutrophils # (auto) 5.97 K/uL (1.40-6.50); Neutrophils % (auto) 73.1 %; Platelet Count 164 K/uL (130-400); RDW Coefficient of Variation 14.1 % (11.5-14.5); RDW Standard Deviation 48.2 fL (36.4-46.3); Red Blood Count 4.01 M/uL (4.20-5.40); White Blood Count 8.15 K/ul (4.8-10.8)
[2024-01-11 16:14] LABS: Albumin Globulin Ratio 1.2 (0.9-2); Albumin Level 3.8 gm/dl (3.4-5.0); BUN Creatinine Ratio 11.6 (10-20); Bilirubin,Total 0.6 mg/dl (0.2-1.0); Calcium 9.3 mg/dl (8.6-10.3); Creatinine Clr Calc Pharmacy 105.2 ml/min; Est GFR (African American) 113.6 ml/min; Globulin 3.2 gm/dl (2.5-4.0); Potassium 3.7 mmol/L (3.5-5.1)
[2024-01-11 16:18] LABS: Troponin I High Sensitivity 4.4 pg/ml (0-14)
[2024-01-11] MEDS: NovoLIN-R INSULIN PER UNIT CHARGE IV STA (16:42)
[2024-01-11 17:02] LABS: INR 1.1 (0.9-1.1); Prothrombin Time 11.9 Seconds (9.0-12.0)
--- NOTE | 2024-01-11 18:12 | History & Physical Report ---
Date of Service January 11, 2024 Assessment & Plan (1) Recurrent falls: Plan: Noted left lumbar radiculopathy with new worsening weakness in May last year with MRI lumbar spine with left posterior central disc protrusion may contact the S1 nerve root Will initially get PT/OT evaluations, depending on clinical course consider ortho spine / pain management evaluations B12 level with AM labs UA pending CXR unremarkable (2) Wound of right lower extremity: Plan: Mottling but no definitive cellulitis surrounding wound Picture taken in H&P - continue to monitor for infection Reportedly this just happened today but appears many days old Consult wound care nurse (3) Uncontrolled type 2 diabetes mellitus: Plan: Hemoglobin A1C 11.1 in March 2023 Glucose 547 on admission (this is not unusual for her) Usual home dose U-500, 50 units TID Will base initial insulin inpatient on prior hospitalization in May (although may need less due to ongoing weight loss) Lantus 50 units BID NovoLog: --Goal BSG Range: Low 110 mg/dL, High 140 mg/dL --Correction Factor: 12 mg/dL/unit --Carbohydrate ratio = 3 g/unit --BSGs ACHS if eating, q6h if npo Consult pharmacy for ongoing glycemic control with high insulin requirements (4) Opiate dependence: Plan: Not picked up oxycodone since November, unclear if PCP weaning off this, recommend checking with PCP office tomorrow (5) Seizure disorder: Plan: Continue Keppra (6) Anxiety: Plan: Continue duloxetine, buspar, trazodone (7) GERD (gastroesophageal reflux disease): Plan: Continue pantoprazole and famotidine (8) Lumbar back pain with radiculopathy affecting left lower extremity: Plan: Continue gabapentin Plan VTE Prophylaxis - Lovenox 40mg sq daily Diet - T2DM Disposition - observation to med/surg Admission and Anticipated Discharge Date Admission Date: January 11, 2024 History of Present Illness Chief Complaint: Difficulty ambulating Primary Care Provider: Aiden Pérez MD Elza Vick is a 53-year-old female who presents to the ER due to frequent falls at home. She reports prior diagnosis of spinal stenosis although on review of prior MRI this appears to be more of a left sided radiculopathy. She reports her legs just giving out intermittently while walking. She does not pain radiating down the back of her left leg but reports the problem is more weakness that sudden occurs causing her to fall. This has been an ongoing issue but worse over the last month. Her PCP has been trying to get her to come to the ER as she cannot get to the lab because she could not walk or leave the house. She reports police were called yesterday for a wellness check on her. No dizziness or lightheadedness. She reports taking her insulin as prescribed. She thinks her right lower extremity wound occurred just today which prompted her deciding to come to the ER. Allergies Allergy/AdvReac Type Severity Reaction Status Date / Time Iodinated Contrast Media Allergy Severe Anaphylaxis Verified 01/11/24 19:14 acetaminophen AdvReac Severe LIVER Verified 01/11/24 19:14 COMPLICATIONS cephalexin AdvReac Severe Vomiting Verified 01/11/24 19:14 levofloxacin [From Levaquin] AdvReac Intermediate Vomiting Verified 01/11/24 19:14 Home Medications Medication Instructions Recorded Confirmed Type cyclobenzaprine 10 mg tablet 10 mg PO BID PRN Muscle Spasm ##0 11/18/17 01/11/24 History albuterol sulfate 90 mcg/actuation 2 puff inhalation Q4H PRN 02/10/18 01/11/24 History aerosol inhaler (Ventolin HFA) Shortness Of Breath Or Wheezing ##0 ibuprofen 800 mg tablet 800 mg PO TID PRN Pain 10/24/19 01/11/24 History promethazine 25 mg tablet 25 mg PO Q6H PRN Nausea 10/24/19 01/11/24 History fluticasone 232 mcg-salmeterol 14 2 inh inhalation BID PRN Shortness 08/21/20 01/11/24 History mcg/actuation breath activated Of Breath powdr (AirDuo RespiClick) montelukast 10 mg tablet 10 mg PO HS 09/01/20 01/11/24 History (Singulair) aspirin 81 mg tablet,delayed 81 mg PO QAM 10/28/20 01/11/24 History release diclofenac sodium 1 % topical gel 4 g topical QID PRN Pain 07/20/21 01/11/24 History albuterol sulfate 2.5 mg/3 mL 2.5 mg inhalation Q6 PRN Wheezing 01/19/22 01/11/24 History (0.083 %) solution for nebulization famotidine 40 mg tablet 40 mg PO BID 01/19/22 01/11/24 History fluticasone propionate 50 1 spray intranasal DAILY PRN 01/19/22 01/11/24 History mcg/actuation nasal Congestion spray,suspension (Flonase Allergy Relief) lidocaine 5 % topical patch 1 patch transdermal DAILY PRN Pain 01/19/22 01/11/24 History pantoprazole 20 mg tablet,delayed 20 mg PO QAM 01/19/22 01/11/24 History release polyethylene glycol 3350 17 17 g PO BID 01/29/22 01/11/24 History gram/dose oral powder (Miralax) trazodone 100 mg tablet 100 mg PO HS 01/29/22 01/11/24 History duloxetine 60 mg capsule,delayed 60 mg PO HS 03/12/22 01/11/24 History release gabapentin 800 mg tablet 800 mg PO TID 04/05/22 01/11/24 History buspirone 5 mg tablet 5 mg PO QID 07/30/22 01/11/24 History ondansetron 4 mg disintegrating 4 mg PO Q6H PRN nausea and 08/11/22 01/11/24 Rx tablet vomiting #12 tabs nystatin 100,000 unit/gram topical 1 applic topical DIRECTED PRN 10/12/22 01/11/24 History powder (Nyamyc) NEEDED levetiracetam 1,000 mg tablet 1,000 mg PO BID 30 days #60 tabs 12/11/22 01/11/24 Rx meloxicam 15 mg tablet 15 mg PO DAILY 12/20/22 01/11/24 History clindamycin phosphate 1 % topical 1 applic topical DAILY PRN Unknown 01/25/23 01/11/24 History gel insulin regular hum U-500 conc 500 50 unit (0.1 mL) subcut TID #18 mL 05/24/23 01/11/24 Rx unit/mL(3 mL) subcut pen (Humulin R U-500 (Conc) Insulin Kwikpen) Past Med/Surg History Medical History (Updated 01/12/24 @ 06:30 by Gerard Park MD) GERD (gastroesophageal reflux disease) Recurrent falls Acute hyperglycemia Opiate dependence Ankle swelling Rash Narcotic abuse Ongoing, documented by PCP since 2013 Neurogenic claudication due to lumbar spinal stenosis Ambulatory dysfunction Hypomagnesemia Hypokalemia Chronic generalized abdominal pain Left hand paresthesia Syncope Thrombocytopenia Tinea corporis Tinea cruris Periapical abscess with facial involvement Insulin dependent diabetes mellitus Uncontrolled type 2 diabetes mellitus Hyponatremia Chronic low back pain with left-sided sciatica Opioid abuse Pulmonary embolism Reports was anticoagulation x 60 days, not on chronic anticoagulation Depression Anxiety Chronic obstructive pulmonary disease Obesity Hypertension Brain cyst Surgical History History of lumbar surgery S/P laparoscopic procedure ovarian cyst surgery S/P dilation and curettage Hx of oral surgery (02/15/20) Acute right submandibular, submental space infection with floor of mouth infection caused by infected lower teeth. Dr. Rios 02/15/20 S/P laparoscopic hernia repair History of laparoscopic cholecystectomy Family History Mother , 73 Heart disease Cancer small cell ca lung caused at 73 Father Skin cancer Brother No problems noted. Sister No problems noted. Grandmother (Maternal) , 48 Heart disease T2DM (type 2 diabetes mellitus) Grandmother (Paternal) , 83 Heart disease Kidney disease Uncle T2DM (type 2 diabetes mellitus) Other Diabetes Obesity Denies family history of Ovarian cancer Breast cancer Colorectal cancer Uterine cancer Social History Smoking Status: Former smoker Tobacco Type: Cigarettes Cigarettes Per Day: 5; Second Hand Exposure: Yes; Do You Dip or Chew Tobacco: No; Hx Alcohol Use: No Hx Substance Use: No Preferred Language: Greenlandic Communication Ability: Effective Visual Impairment: No Limitations Hearing Ability: Normal Lockstitch Back Maker Required: No Beliefs That Will Affect Care: None marital status: Current Living Situation: Alone Current Living Situation Comment: Lives with son (15yo) current occupational status: unemployed 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 How many Children do You have: 1 Feels Safe at Home: Yes Assistive Devices: Denture - Upper and Denture - Lower Review of Systems 2 Review of Systems: All systems reviewed & are unremarkable except as noted in HPI & below Physical Exam 2 Constitutional: well developed; + not well nourished and no acute distress Eyes: PERRL, conjunctivae normal, anicteric sclerae ENMT: external ear and nose normal, oropharynx normal Neck: trachea midline, no thyromegaly Respiratory: normal respiratory effort, lungs clear to auscultation Cardiovascular: Rate/Rhythm: regular rate and regular rhythm Heart Sounds: no murmur Gastrointestinal (Abdomen): normal bowel sounds, soft, nontender, no hepatosplenomegaly Skin: blister of RLE with surrounding mottling of skin Neurologic: moves all extremities, + focal motor deficit (4/5 LLE hip flex, ankle dorsi/plantarflex) and awake; not confused Motor/Sensory: + sensory deficit (no feeling from ankles distally) Psychiatric: A+Ox3, euthymic affect Results & Data Results & Data Vital Signs (Past 12 Hours) Vital Signs Temp Pulse Resp BP BP Pulse Ox O2 Del Method 01/11/24 16:32 97 H 01/11/24 15:30 17 122/87 95 Room Air 01/11/24 15:19 98 H 18 Room Air 01/11/24 14:42 37.8 C H 120 H 18 134/97 95 Room Air Laboratory Results Abnormal lab results 01/11/24 01/11/24 01/11/24 Range/Units 14:45 16:01 17:48 RBC 4.01 L (4.20-5.40) M/uL RDW Std Deviation 48.2 H (36.4-46.3) fL MPV 12.5 H (9.4-12.4) fL Sodium 133 L (136-145) mmol/L Glucose 547 H* (70-99(Fasting)) mg/dl POC Glucose 360 H* (70-99) mg/dl Alkaline Phosphatase 190 H (34-104) U/L Lipase 4 L (11-82) U/L Diagnostic Findings SINGLE VIEW CHEST CLINICAL HISTORY: Generalized weakness. FINDINGS: An AP, portable, upright chest radiograph is compared to study dated 07/28/2023. The examination is degraded by portable technique and patient rotation. The cardiomediastinal silhouette is unremarkable. There is mild elevation of the left hemidiaphragm. The lungs and pleural spaces are clear. No pneumothorax is seen. The bony thorax is grossly intact. IMPRESSION: No active disease in the chest. Medications Administered ER medications given: Normal saline 500 mL bolus Morphine 4 mg IV Ondansetron 4 mg IV Insulin 8 units IV ECG Rate (beats per minute): 100 Rhythm: normal sinus Findings: no acute ischemic change Comparison ECG Date: from (July 28, 2023) Change: no significant change Code Status & VTE Plan Code Status Full VTE Prophylaxis Plan VTE Prophylaxis will be ordered: Yes PG Care Time/CCT Total # of Minutes Spent Total Time Spent with Patient: Total time spent is greater than 50% in coordination of care (as documented) at patient's floor/unit and/or counseling patient: Coding Level of Care Code 82458 INT INP/OBS CARE 2/55MIN Diagnoses Recurrent falls R29.6 Wound of right lower extremity S81.801A Uncontrolled type 2 diabetes mellitus E11.65 Opiate dependence F11.20 Seizure disorder G40.909 Anxiety F41.9 GERD (gastroesophageal reflux disease) K21.9 Lumbar back pain with radiculopathy affecting left lower extremity M54.16
[2024-01-11 19:11] LABS: Adenovirus PCR Not Detected (NotDetected); Bordetella parapertussis PCR Not Detected (NotDetected); Bordetella pertussis PCR Not Detected (NotDetected); Chlamydia pneumoniae PCR Not Detected (NotDetected); Coronavirus 229E PCR Not Detected (NotDetected); Coronavirus CoV-2 (COVID19)PCR Not Detected (NotDetected); Coronavirus HKU1 PCR Not Detected (NotDetected); Coronavirus NL63 PCR Not Detected (NotDetected); Coronavirus OC43PCR Not Detected (NotDetected); Human Metapneumovirus PCR Not Detected (NotDetected); Influenza A PCR Not Detected (NotDetected); Influenza B PCR Not Detected (NotDetected); Mycoplasma pneumoniae PCR Not Detected (NotDetected); Parainfluenza Virus 1 PCR Not Detected (NotDetected); Parainfluenza Virus 2 PCR Not Detected (NotDetected); Parainfluenza Virus 3 PCR Not Detected (NotDetected); Parainfluenza Virus 4 PCR Not Detected (NotDetected); Respiratory Syncytial VirusPCR Not Detected (NotDetected); Rhinovirus/Enterovirus PCR Not Detected (NotDetected)
--- NOTE | 2024-01-11 19:25 | XRay Report ---
SINGLE VIEW CHEST CLINICAL HISTORY: Generalized weakness. FINDINGS: An AP, portable, upright chest radiograph is compared to study dated 07/28/2023. The examin ation is degraded by portable technique and patient rotation. The cardiomediastinal silhouette is un remarkable. There is mild elevation of the left hemidiaphragm. The lungs and pleural spaces are clear . No pneumothorax is seen. The bony thorax is grossly intact. IMPRESSION: No active disease in the chest. ACT 112: Negative or not required by law. Electronically signed by: Kumar Caldwell M.D. 01/11/2024 7:24 PM
[2024-01-11] MEDS ORDERED: DEXTROSE 50% 50 ML SYRINGE IV PRN (19:36)
[2024-01-11] MEDS ORDERED: GLUCOSE 10 TAB/TUBE PO PRN (19:36)
[2024-01-11] MEDS ORDERED: GLUCAGON FOR INJ 1 MG VIAL SQ PRN (19:36)
[2024-01-11] MEDS ORDERED: PHARMACY GLYCEMIC MGMT CONSULT PRN (19:36)
[2024-01-11] MEDS ORDERED: ONDANSETRON INJ 2 MG/ML 2 ML VIAL IV PRN (19:36)
[2024-01-11] MEDS ORDERED: CARBOHYDRATES FOR HYPOGLYCEMIA PO PRN (19:36)
[2024-01-11] MEDS ORDERED: GLUCOSE 40% GEL 15 GM TUBE PO PRN (19:36)
[2024-01-11] MEDS ORDERED: POLYETHYLENE (MIRALAX) 17 GM PACK PO PRN (19:36)
[2024-01-11] MEDS: INSULIN ASPART PER UNIT CHARGE SC SCH (21:54)
[2024-01-11] MEDS: LANTUS PER UNIT CHARGE SQ SCH (21:55)
[2024-01-11] MEDS ORDERED: PROMETHAZINE HCL 25 MG TAB PO PRN (21:55)
[2024-01-11] MEDS ORDERED: FLUTICASONE PROPIONATE NA SPR 16 GM BTL NAE PRN (21:55)
[2024-01-11] MEDS ORDERED: CYCLOBENZAPRINE HCL 10 MG TAB PO PRN (21:55)
[2024-01-11] MEDS ORDERED: LIDOCAINE 5% 1 PATCH TD PRN (21:55)
[2024-01-11] MEDS ORDERED: ALBUTEROL HFA 8 GM INHALER INH PRN (21:55)
[2024-01-11] MEDS ORDERED: ACETAMINOPHEN 325 MG TAB PO PRN (21:59)
[2024-01-11] MEDS: FAMOTIDINE 40 MG TABLET PO SCH (22:52)
[2024-01-11] MEDS: GABAPENTIN 800 MG TAB PO SCH (22:53)
[2024-01-11] MEDS: busPIRone 5 MG TAB PO SCH (22:53)
[2024-01-11] MEDS: MONTELUKAST SODIUM 10 MG TABLET PO SCH (22:54)
[2024-01-11] MEDS: levETIRAcetam 500 MG TAB PO SCH (22:54)
[2024-01-11] MEDS: DULoxetine HCL 60 MG CAP PO SCH (22:54)
[2024-01-11] MEDS: traZODone HCL 100 MG TAB PO SCH (22:55)
[2024-01-11] MEDS: POLYETHYLENE (MIRALAX) 17 GM PACK PO SCH (22:55)
[2024-01-12] MEDS: INSULIN ASPART PER UNIT CHARGE SC SCH (03:14)
[2024-01-12 04:24] LABS: Appearance Urine Turbid (Clear); Bacteria Urine Automated 3+ (Negative); Bilirubin Urine Negative (Negative); Blood Urine 2+ (Negative); Cast Urine Automated 0 /lpf (0-5); Color Urine Yellow; Epithelial Cell Urine Auto >30 /lpf (0-5); Glucose Urine UA 3+ (Negative); Ketones Urine Negative (Negative); Leukocyte Esterase Urine 2+ (Negative); Nitrite Urine Negative (Negative); Protein Urine 1+ (Negative); RBC Urine Automated 0-4 /hpf (0-4); Specific Gravity Urine 1.034 (1.000-1.030); Urobilinogen Urine Negative (Negative); WBC Urine Automated >30 /hpf (0-5); pH Urine 5.5 (4.5-7.5)
[2024-01-12 04:43] LABS: Calcium Oxalate Crystals Urine Present (None Prsent)
--- OUTSIDE RECORDS SUMMARY | 2024-01-12 05:45 | External Medical Summary | Continuity of Care Document ---
Author Name Unknown Organization [facility] [id number] [place] [id number] Care Team Providers Care Freight Car Inspector Name Role Phone Beto Aiden Primary Care Physician [phone] Encounter [facility] [id number] Date(s): 08/22/23 - 08/22/23 [facility] [address] [address] [phone] Encounter Diagnosis Body mass index [BMI] 35.0-35.9, adult(Discharge Diagnosis) - 08/22/23 Type 2 diabetes mellitus, uncontrolled(Discharge Diagnosis) - 08/22/23 TMJ dysfunction(Discharge Diagnosis) - 08/22/23 Tachycardia(Discharge Diagnosis) - 08/22/23 Edema leg(Discharge Diagnosis) - 08/22/23 Hepatic cirrhosis(Discharge Diagnosis) - 08/22/23 Left breast lump(Discharge Diagnosis) - 08/22/23 Discharge Disposition: Home or Self Care Attending Physician: MD Demetrice, Katerina Palacios Allergies, Adverse Reactions, Alerts Substance Reaction Severity Status cephalexin Nausea Mild Active morphine nausea Active Tylenol nausea Active KlonoPIN confusion Active levoFLOXacin nausea ctrl'd w/ zofran Acti ve Assessment and Plan Extracted from: Title:Office Visit Note Author:DO Colunga Clair e S Date:08/22/23 1.Type 2 diabetes mellitus , uncontrolled Chronic condition exacerbated/progressive/side effects of treatment Goal:Hemoglobin [id number] than7 Data:unique tests ordered: _hemoglobin a1c, lipid panel Plan: Blood sugars reasonably well controlled per pt report. Repeat labs as per above. 2.TMJ dysfunction Undifferentiated new problem with uncertain prognosis Goal:Resolution Data:_ Plan: Trial of conservative management; heat/ice, behavioral modification. 3.Tachycardia Chronic condition, stable Goal:Stability Data:_ Plan: Chronic. Reviewed TSH from 03/2023. EKGs from prior IP stays reviewed; sinus tachycardia. 4.Edema leg Undifferentiated new problem with uncertain prognosis Goal:Resolution Data:_ Plan: No edema in the office today. Given exam, DVT unlikely. If swelling returns could trial compression stockings. Would also consider further cardiac workup. 5.Left breast lump Undifferentiated new problem with uncertain prognosis Goal:Resolution Data:unique tests ordered: _mammogram Plan: Diagnostic mammogram ordered. Also due for screening, also ordered. Immunizations Given and Recorded Vaccine Date Status Refusal Reason influenza virus vaccine, inactivated 08/22/23 Give n influenza virus vaccine, inactivated 09/16/21 Give n influenza virus vaccine, inactivated 08/28/20 Give n influenza virus vaccine, inactivated 06/14/19 Give n influenza virus vaccine, inactivated 09/23/17 Give n influenza virus vaccine, inactivated 06/10/15 Give n influenza virus vaccine, inactivated 07/05/14 Give n influenza virus vaccine, inactivated 1 07/30/13 Re corded hepatitis B adult vaccine 04/09/21 Given hepatitis B adult vaccine 03/05/21 Given SARS-CoV-2 (COVID-19) mRNA-1273 vaccine 03/11/21 R ecorded SARS-CoV-2 (COVID-19) mRNA-1273 vaccine 02/11/21 R ecorded pneumococcal 23-valent vaccine 2 08/26/18 Recorded pneumococcal 23-valent vaccine 11/12/06 Recorded tetanus/diphtheria/pertuss, acel (Tdap) 05/15/15 G iven tetanus/diphtheria/pertuss, acel (Tdap) 3 04/09/10 Recorded tetanus toxoid 4 10/10/12 Recorded tetanus toxoids-diphtheria, Td (Adult) 5 11/10/02 Recorded 1Result Comment: 2018-03-07: Historical information-source unspecified 2Result Comment: 2021-02-20: Historical information-source unspecified 3Result Comment: 2018-03-07: Historical information-source unspecified 4Result Comment: 2018-03-07: Historical information-source unspecified 5Result Comment: 2018-03-07: Historical information-source unspecified Medications albuterol 0.083% for nebulization Start: 07/18/23 13:01:00 EDT, 3 mL, inhaled, q6h, Disp# 1 each, Refills: 0, PRN wheezing, Pharmacy:[id number] Start Date: 07/18/23 Status: Ordered Aspirin 81mg Start: 08/29/20 10:35:00 EST, Aspirin 81mg, Daily Start Date: 08/29/20 Status: Ordered BD needle Ultra-Fine Pen Klarissa 32G x 4mm Start: 05/24/23 15:29:00 EDT, See Instructions, Disp# 180 each, Refills: 0, =30 day supply for bothinsulin pens., Pharmacy: [id number] Start Date: 05/24/23 Status: Ordered bd pen needles Start: 06/21/23 14:10:00 EDT, bd pen needles, eRx Product Type: Supply, See Instructions, Disp# 100pen_needle, Refills: 3, 1 each to be used with insulin pens. bd pen needles 32x4. needs to be brandnecessary/, Note to Pharmacy: [email or web address], Brand... Start Date: 06/21/23 Status: Ordered busPIRone 5 mg oral tablet Start: 06/22/23 16:55:00 EDT, See Instructions, Disp# 120 tab, Refills: 1, TAKE 1 TABLET BY MOUTH FOUR TIMES DAILY, Pharmacy: [id number] Start Date: 06/22/23 Status: Ordered clindamycin 1% topical gel Start: 07/04/23 15:56:00 EDT, See Instructions, Disp# 30 g, Refills: 5, Apply twice daily, Pharmacy: [id number] Start Date: 07/04/23 Status: Ordered cyclobenzaprine 10 mg oral tablet Start: 08/11/23 17:04:00 EDT, See Instructions, Disp# 60 tab, Refills: 1, TAKE 1 TABLET BY MOUTH TWICE DAILY FOR 30 DAYS, Pharmacy: [id number] Start Date: 08/11/23 Status: Ordered diclofenac 1% topical gel Start: 06/03/23 15:52:00 EDT, See Instructions, Disp# 100 g, Refills: 0, APPLY QUARTER-SIZED DOLLOPTOPICALLY TO BOTH KNEES FOUR TIMES DAILY, Pharmacy: [id number] Start Date: 06/03/23 Status: Ordered Dulera 100 mcg-5 mcg/inh inhalation aerosol Start: 07/13/23 11:47:00 EDT, 2 puff, inhaled, bid, Disp# 13 g, Refills: 4, rinse mouth and throat after use., Pharmacy: [id number] Start Date: 07/13/23 Status: Ordered DULoxetine 60 mg oral delayed release capsule Start: 06/06/23 16:44:00 EDT, 1 cap, PO, Daily, Disp# 90 cap, Refills: 3, Pharmacy: [id number] Start Date: 06/06/23 Stop Date: 05/31/24 Status: Ordered famotidine 40 mg oral tablet Start: 06/22/23 16:55:00 EDT, See Instructions, Disp# 180 tab, Refills: 3, TAKE 1 TABLET BY MOUTH TWICE DAILY, Pharmacy: [id number] Start Date: 06/22/23 Status: Ordered fluticasone 50 mcg/inh nasal spray Start: 06/06/23 16:44:00 EDT, 1 spray, each nostril, Daily, Disp# 16 g, Refills: 5, Pharmacy: [id number] Start Date: 06/06/23 Stop Date: 12/03/23 Status: Ordered fluticasone-salmeterol 232 mcg-14 mcg/inh inhalation powder Start: 07/18/23 13:01:00 EDT, 1 puff, inhaled, bid, Disp# 3 each, Refills: 3, Pharmacy: [facility] Start Date: 07/18/23 Stop Date: 07/12/24 Status: Ordered gabapentin 800 mg oral tablet Start: 08/11/23 17:04:00 EDT, See Instructions, Disp# 90 tab, Refills: 3, TAKE 1 TABLET BY MOUTH THREE TIMES A DAY, Note to Pharmacy: OK to filler picker on07/13/23 prior to trip out of state, Pharmacy: [id number] Start Date: 08/11/23 Status: Ordered HumuLIN R U500 KwikPen CONCENTRATED 500 units/mL human recombinant subcutaneous solution Start: 08/24/23 13:40:00 EST, See Instructions, Disp# 18 mL, Refills: 0, bridging rx as patient unable to see endo - 100 units three times a day was previous reported dose, Pharmacy: [facility] Start Date: 08/24/23 Status: Ordered ibuprofen 800 mg oral tablet Start: 12/13/22 12:10:00 EST, See Instructions, Disp# 90 tab, Refills: 3, TAKE 1 TABLET BY MOUTH THREE TIMES DAILY NEEDED FOR PAIN, Pharmacy: [facility] Start Date: 12/13/22 Status: Ordered levETIRAcetam 1000 mg oral tablet Start: 07/29/23 10:00:00 EDT, 1 tab, PO, bid, Disp# 60 tab, Refills: 0, Pharmacy: [facility] Start Date: 07/29/23 Status: Ordered lidocaine topical 5% patch Start: 07/18/23 13:01:00 EDT, See Instructions, Disp# 30 pad, Refills: 0, APPLY 1 PATCH TOPICALLY ONCE DAILY - 12 HOURS ON, 12 HOURS OFF, Pharmacy: [facility] Start Date: 07/18/23 Status: Ordered meloxicam 15 mg oral tablet Start: 08/11/23 17:04:00 EDT, See Instructions, Disp# 90 tab, Refills: 4, TAKE 1 TABLET BY MOUTH ONCE DAILY, Pharmacy: [facility] Start Date: 08/11/23 Status: Ordered MiraLax Start: 01/08/21 11:44:00 EDT, 1 cap BID Start Date: 01/08/21 Status: Ordered Mirena 52 mg intrauteral device Start: 11/04/17 15:15:00, 1 each, intrauterine, ONCE, Disp# 1 each, Pharmacy: [facility] Start Date: 11/04/17 Status: Ordered Nyamyc 100,000 units/g topical powder Start: 07/18/23 13:01:00 EDT, See Instructions, Disp# 30 g, Refills: 3, apply to affected area two times daily to three times daily if needed, Pharmacy: [facility] Start Date: 07/18/23 Status: Ordered ondansetron 8 mg oral tablet, disintegrating Start: 04/26/23 11:43:00 EDT, 1 tab, PO, q8h, Disp# 15 tab, Refills: 11, PRN: as needed for nausea/vomiting, Pharmacy: [facility] Start Date: 04/26/23 Stop Date: 06/25/23 Status: Ordered One Touch Delica Plus (30G) Lancets Start: 04/07/23 12:09:00 EDT, See Instructions, Disp# 100 each, Refills: 3, Check blood sugar TID, Pharmacy: [facility] Start Date: 04/07/23 Status: Ordered One Touch Verio Flex Glucose Monitor Start: 12/22/22 14:04:00 EDT, See Instructions, Disp# 1 each, Refills: 0, Test blood sugars TID. E11.9, Note to Pharmacy: Current glucometer is broken, Pharmacy: [facility] Start Date: 12/22/22 Status: Ordered One Touch Verio Test Strips Start: 08/11/23 17:04:00 EDT, See Instructions, Disp# 200 each, Refills: 5, test blood glucose six times per day, Pharmacy: [facility] Start Date: 08/11/23 Status: Ordered oxyCODONE 5 mg oral tablet Start: 08/11/23 17:04:00 EDT, 5 mg =, PO, q12h, Disp# 28 tab, Refills: 0, PRN: as needed for pain, Pharmacy: [facility] Start Date: 08/11/23 Stop Date: 08/25/23 Status: Ordered pantoprazole 20 mg oral delayed release tablet Start: 08/11/23 17:04:00 EDT, See Instructions, Disp# 90 tab, Refills: 3, TAKE 1 TABLET BY MOUTH ONCE DAILY, Pharmacy: [facility] Start Date: 08/11/23 Status: Ordered Phenergan 25 mg oral tablet Start: 04/26/23 11:42:00 EDT, 1 tab, PO, q6h, Disp# 28 tab, Refills: 11, PRN: as needed for nausea/vomiting, Pharmacy: [facility] Start Date: 04/26/23 Stop Date: 07/19/23 Status: Ordered Restasis 0.05% ophthalmic emulsion Start: 02/25/21 11:27:00 EDT, 1 drop, both eyes, q12h Start Date: 02/25/21 Status: Ordered Singulair 10 mg oral tablet Start: 06/06/23 16:44:00 EDT, 1 tab, PO, qPM, Disp# 90 tab, Refills: 3, Pharmacy: [facility] Start Date: 06/06/23 Stop Date: 05/31/24 Status: Ordered traZODone 100 mg oral tablet Start: 07/29/23 9:04:00 EDT, See Instructions, Disp# 30 tab, Refills: 2, TAKE ONE TABLET BY MOUTH NIGHTLY AT BEDTIME, Pharmacy: [facility] Start Date: 07/29/23 Status: Ordered Ventolin HFA 90 mcg/inh inhalation aerosol Start: 06/06/23 16:44:00 EDT, 2 puff, inhaled, q4h, Disp# 3 each, Refills: 2, Pharmacy: [facility] Start Date: 06/06/23 Stop Date: 03/02/24 Status: Ordered Mental Status 08/22/23 Barriers to Learning one year None evide nt Mandatory Health Literacy Documentation Yes Health Literacy Communication Barriers N ever Primary Language Guinean Problem List Condition Confirmation Course Effective Dates Status H ealth Status Informant CS (cervical spondylosis) Confirmed Active Chronic abdominal pain Confirmed Active Chronic insomnia Confirmed Active Chronic obstructive pulmonary disease (COPD) Confirmed Active Hepatic cirrhosis Confirmed Active Cervical dysplasia Confirmed Active GERD without esophagitis Confirmed Active Generalized anxiety disorder with panic attacks Confirmed Active Hidradenitis suppurativa Confirmed Active H/O opioid abuse Confirmed Active History of herniorrhaphy Confirmed Active Lower back pain Confirmed Active Seizure-like activity Confirmed Active OCD (obsessive compulsive disorder) Confirmed Active Pressure ulcer of buttock Confirmed Active Restless leg syndrome Confirmed Active Tobacco user Confirmed Active Type 2 diabetes mellitus, uncontrolled Confirmed Active Weight disorder Confirmed Active Diagnosis Diagnosis Type Effective Dates Health Status Clinical Service Informant Body mass index [BMI] 35.0-35.9, adult Discharge Diagnosis 08/22/23 Non-Specified Type 2 diabetes mellitus, uncontrolled Discharge Diagnosis 08/22/23 Edema leg Discharge Diagnosis 08/22/23 TMJ dysfunction Discharge Diagnosis 08/22/23 Non-Specified Tachycardia Discharge Diagnosis 08/22/23 Non-Specified Left breast lump Discharge Diagnosis 08/22/23 Hepatic cirrhosis Discharge Diagnosis 08/22/23 Procedures Procedure Date Related Diagnosis Body Site Status CT of abdomen and pelvis 1 04/01/23 Completed Doppler ultrasonography of v enous structure of limb 2 02/24/[address] of head 3 02/12/[address] of lumbar spine 4 02/12/[address] of head 5 01/24/23 Completed Chest x-ray 6 01/22/[address] of head 7 01/22/23 Completed MRI of lumbar spine 8 12/24/[address] of cervical spine 9 12/20/[address] of head 10 12/20/[address] of lumbar spine 11 12/20/22 Com pleted Chest X-ray 12 12/19/22 Completed Ultrasound of left lower ext remitiy venous doppler 13 11/20/[address] of head 14 10/12/[address] of lumbar spine 15 10/12/22 Com pleted Skeletal X-ray of pelvis and hip 16 10/12/22 Completed Chest x-ray 17 03/06/[address] of head without contrast 18 03/06/22 Completed ECG (electrocardiography) procedure 19 03/06/22 Completed Plain X-ray of left shoulder 20 03/06/22 Completed Echocardiogram 21 02/23/22 Complet ed EEG 22 02/22/22 Completed Chest x-ray 23 02/20/[address] of cervical spine 24 02/20/[address] of head without contrast 25 02/20/[address] of lumbar spine 26 02/20/22 Com pleted ECG (electrocardiography) procedure 27 02/20/22 Completed Chest X-ray 28 01/19/[address] angiography of chest with contrast 29 01/19/22 Completed CAT scan cervical spine 30 01/16/22 Completed CAT scan head w/o contrast 31 01/16/22 Completed X-ray chest 32 01/16/22 Completed X-ray of thoracic spine 2v 33 01/16/22 Completed Chest X-ray 34 11/28/[address] of abdomen and pelvis 35 11/28/[address] of head 36 11/28/21 Completed Hip X-ray LT 2V w pelvis 37 02/13/21 Completed Chest X-ray 38 01/27/[address] of head 39 01/27/21 Completed KUB X-ray 40 01/27/21 Completed Ultrasound--abdomen 41 11/26/[address] angiography of brain and neck artery 42 10/28/[address] angiography of chest with contrast 43 10/28/[address] of abdomen and pelvis wit h contrast 44 10/28/[address] of cervical spine 45 10/28/[address] of head 46 10/28/20 Completed Diagnostic mammogram 47 08/27/20 C ompleted Shoulder X-ray 48 05/19/20 Complet ed X-ray of left knee 49 05/19/[address] 50 09/27/[address] of abdomen and pelvis wit h contrast 51 09/14/19 Completed Chest X-ray 2V PA/lateral 52 08/31/19 Completed Chest x-ray 53 06/17/19 Completed X-ray of lumbar spine and pelvis 54 06/17/19 Completed Plain X-ray of toe 55 09/21/18 Com pleted Fine needle aspiration of Seroma 56 06/30/18 Completed History of repair of umbilic al hernia 57 05/29/18 Completed Abdomen x-ray for hernia 58 05/13/18 Completed X-ray of abdomen 59 05/13/18 Compl eted Abdomen and pelvis 60 05/11/18 Com pleted Cholecystectomy 05/01/18 Completed Laparoscopic cholecystectomy 61 05/01/18 Completed Chest x-ray 62 04/29/18 Completed US abdominal scan- gallbladder 63 04/29/18 Completed X-ray of left knee 64 04/10/18 Com pleted Venous doppler ultrasonography 65 04/04/18 Completed Chest x-ray 66 03/18/[address] of abdomen and pelvis wit h contrast 67 03/18/[address] of chest 68 03/18/18 Completed Chest x-ray 69 02/20/[address] of head 70 02/20/18 Completed Angiography of neck 71 02/11/18 Co mpleted Head angiography 72 02/11/18 Compl eted BLE Venous doppler 73 02/10/18 Com pleted Brain MRI 74 02/10/[address] 75 02/10/18 Completed Chest x-ray 76 02/10/[address] of head 77 02/10/18 Completed Echocardiogram 78 02/10/[address] 79 11/18/17 Completed Chest X-ray 80 11/18/17 Completed Emergency medical services 81 11/18/17 Completed Mammogram 82 11/04/17 Completed Doppler 83 10/26/17 Completed Chest X-ray 84 11/27/15 Completed Doppler ultrasonography of a rterial inflow and venous outflow of abdominal, pelvic and retroperitoneal organs 85 05/22/15 Completed MRI of lumbar spine 86 01/26/13 Co mpleted Chest X-ray 87 07/11/10 Completed Cytology report 88 11/26/05 Comple krystle Surgical removal of impacted third molar tooth 1997 Completed D & C Completed Diagnostic radiography of sam mbar spine 89 Completed 1IMPRESSION: 1. No acute abnormality, and no change. 2. Incidental cardiomegaly, fatty/cirrhotic liver, cholecystectomy, postoperative change of the lumbar spine, IUD in good position and moderate fecal loading of the colon appears stable. 2Impression: No DVT within the left lower extremity. 3Impression: No acute intracranial abnormality 4Impression: 1. No fractures within the lumbar spine 2. Postoperative changes as described above. This hardware appears intact. 5Impression: 1. No acute intracranial abrnoamality. 2. Unremarkable CTA of the head and neck. 6Impression: No active disease in the chest 7Impression: There is no hemorrhage, mass effect, or evidence of acute territorial ischemia by CT criteria 8Impression: 1. Status post L3-L5 decompression and fusion 2. No lumbar spine fractures 3. No significant change in appearance of the lumbar spine MRI of December 10, 2022. Left paracentral disc protrusion at L5-S1 that results in moderate narrowing of the left lateral recess 4. Mild to moderate multilevel neural foraminal stenosis. No significant central canal stenosis. 9Impression: No evidence of acute cervical spine pathology 10Impression: No evidence of acute intracranial pathology 11Impression: no evidence of acute thoracic spine pathology 12Impression: No acute disease in the chest 13Impression: No DVT within the left lower extremity 14impression: No acute intracranial abnormality 15impression: 1. No acute bony abnormality is seen involving the lumbar spine 2. Degenerative disc disease as above. Thi is similar to prior studies 16impression: No acute bony abnormality iis identified and there has been no significant change from 10/10/22 17No significant change compared to the prior study. No acute process. 18No acute intracranial abnormality. 19Vent. Rate : 094 BPM Atrial Rate : 094 BPM P-R Int : 158 ms QRS Dur : 082 ms QT Int : 364 ms P-R-T Axes : 019 -17 034 degrees QTc Int : 455 ms Poor data quality, interpretation may be adversely affected Normal sinus rhythm Poor R wave progression, consider anterior TN vs. lead placement vs. LVH Abnormal ECG When compared with ECG of 22-FEB-2022 18:41, No significant change was found 20No fracture or dislocation within the left shoulder. 21Interpretation Summary: No significant valvular heart disease Left ventricular systolic function is normal Grade 1 diastolic dysfunction, (abnormal relaxation pattern) 22Abnormal awake/drowsy EEG revealing evidence of a mild to moderate nonspecific encephalopathy. No epileptiform abnormalities observed. 23No acute chest disease. 24No evidence of acute bony injury. 25No acute intracranial hemorrhage, no evidence of acute territorial infarction or other acute intracranial disease process. 26No evidence of acute bony injury. 27Vent. Rate : 114 BPM Atrial Rate : 114 BPM P-R Int : 168 ms QRS Dur : 084 ms QT Int : 334 ms P-R-T Axes : 022 -20 037 degrees QTc Int : 460 ms Poor data quality, interpretation may be adversely affected Sinus tachycardia Left ventricular hypertrophy Anterolateral infarct (cited on or before 20-FEB-2022) Abnormal ECG When compared with ECG of 01-FEB-2022 21:25, No significant change was found 28negative study 29negative for embolus 30no acute fractures within the servical spine 31no acute intracranial abnormality 32no acute chest disease 33no acute fracture or subluxation. 34IMPRESSION: Cardiomegaly with no active disease in the chest. 35IMPRESSION: 1. No acute infectious or inflammatory findings are identified in the abdomen or pelvis. 2. Cirrhotic liver morphology. 3. Splenomegaly and splenorenal shunt. 4. Additional findings as above. 36IMPRESSION: No acute intracranial abnormality 37Impression: No acute fracture within the pelvis or hips 38imression: no acute process 39Impression: No acute intracranial abnormality 40impression: 1, no evidence for a bowel obstruction 2, Moderate amount within the colon and rectum 411) Cirrhotic liver. No hepatic masses. 2) Cholecystectomy. Likely accounts for common bile duct measuring 9 mm in diameter 421. There is no hemorrhage, mass effect, or evidence of acute territorial ischemia by CT criteria noting angiographic phase technique. 2. Unremarkable CT angiogram of the brain. 3. Unremarkable CT angiogram of the neck. 431. No evidence of acute pulmonary embolism 2. Scattered groundglass pulmonary opacities. Although nonspecific, the findings may indicate a multifocal bilateral pneumonia. 441. No acute intra-abdominal or intrapelvic abnormality 2. Bibasilar groundglass opacities are suspicious for viral pneumonia 3. Cirrhotic liver disease with stigmata of portal venous hypertension including abdominal varices with mild splenomegaly. 4. Moderate fecal retention. 5. IUD in situ. 45No evidence of acute fracture or traumatic subluxation. 46No acute intracranial findings. 47Interval coarsening of a 5.8 m grouping of calcifications in the left lateral, anterior breast, confirming benign calcifications. There is no mammographic evidence of malignancy bilaterally. Recommend routine screening mammography in 1 year. 48Right Shoulder 1. No acute fractures 2. Degenerative changes 491. No acute fractures identified. 2. Moderately advanced osteoarthritic change. 3. 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 50no intrathroacic abnormality scattered pulmnodules cholecystectomy coronary arterial calcifications cirrhotic liver disease 511. No acute intra-abdominal or pelvic finding 2. Negative for hydronephrosis or stones 3. Appendix is not visualized however no right lower quadrant inflammatory changes 4. Anterior abdominal wall hernia repair changes with mesh. Small amount of fluid seen extending into the periumbilical hernia 5. Cirrhotic liver with mild portal venous hypertension manifested by splenomegaly and varices 6. Sacral Tarlov cysts 52Impression: No acute process 53No active disease in the chest. 54No acute bony abnormality is seen involving the lumbar spine. 55Acute minimally displaced fracture of the distal aspect of the proximal phalanx of the left second toe. 56see scanned procedure note from [facility] 57see scanned report 58Fat-containing 8cm umbilical hernia with a trace amount of surrounding fluid. 59No acute process. Minimal chronic pleural reactive change left base. Mild nonobstructive ileus. 601. The gallbladder is surgically absent. No fluid collection or significant inflammatory change is seen in the gallbladder fossa. 2. Small foci of intraperitonea free air are nonspecific and likely related to the reported historyof recent surgery and a cholecystostomy tube. Clinical correlation will be required 61History of: See scanned operative report. 62Subsegmental left basilar opacities suggest atelectasis. 63Cholelithiasis with mild gallbladder distention. Sonographic Rothman sign reported as positive, however no gallbladder wall thickening or pericholecystic fluid collections identified. These findings are equivocal for acute cholecystits. Common bile duct measures in upper limits of normal at 6mm. No o bstructing common bile duct calculi idenfied. Suggested hepatic steatosis. 64moderate degenerative changes of patellofemoral joint with mild degenerative changes of the medial and lateral joint compartments. Several synovial calcifications. Small joint effusion 65No sonographic evidence of deep venous thrombosis. 66Stable interstitial prominence, a finding which may be related to technical factors. No evidence offocal airspace consolidation. 671. No evidence of bowel obstruction. No evidence of free air 2. Fat-containing umbilical hernia 3. Normal appendix. No evidence of acute diverticulitis. 4. No gallbladder or pancreatic abnormalities identified. 681. Study limited due to the pt's lare body habitus. 2. No central emboli identified. Correlation with serial leg U/S should be considered if there is astrong clinical suspicion over the presence of pulmonary embolism. 3. Subtle biapical groundglass nodular opacities. The largest measures 10mm. As these werent present on the prior CT scan, this favors an infectious/inflammatory etiology. 3-[address] f/u is recommended per Fleischner criteria. 69No significant change compared to prior study. No acute process. 70No acute intracranial abnormality. 71No evidence of dissection, focal vcessel occlusion, or significant stenosis of the cervical arteries. 72No evidence of aneurysm, focal cessel occlusion, or significant stenosis of the intracranial arteries. 73No sonograpgic evidence of DVT within the R or L lower extremity. 74Unremarkable MRI of the brain. Possible R cerebellar abnormalitiy on head CT 02/10/18 was artifactual. No acute infarct. 75Study is positive for small second-order pulmonary emboli involving the right as well as left lowerlobe regions minimul atelectasis left baes no evidence for main or central pulmonary embolus 76no acute cardiopulmonary findings. Stable mild cardiomegaly 77low-density lesion right mid cerebellum versus technical artifact MRI of the brain is suggested to exclude signaficant process 78-- Conclusions -- Left ventricular systolic function is normal. No regional wall motion abnormalities noted. Ejection Fraction = 55-60%. No obvious valvular pathology. Grade I diastolic dysfunction, (abnormal relaxation pattern 79No CT evidence of acute PE. Ill defined bilateral nodular pulmonary airspace opacities. Geven the clinical history, the findings are likely a multifocal pneumonitis 80No active disease in the chest. 81ER-flu like symptoms - neg for Flu A and B - likely pneumonia 82Possible small cluster of calcifications within the left upper outer quadrant, for which spot magnification views are recommended. 83there is no sonogrpahic evidence of deep venous thrombosis identified in the left lower extremity 84Impression: No acute process 85No evidenc of left upper extremity deep venous thrombosis 86Impression - L 3-L4 a 3mm broad based midline disc protrusion causes mild flattening of thecal sac and combinds with ligamentum flavum hypertrophy to result in mild spinal canal stenosis. Superimposed anular bulge and facet osteoarthritis results in moderate right and moderate left foraminal stenosis. The right forraminal stenosis has developedd since the prior study. - L4-L5 broad- based left paracentral disc protrusion measuring 3mm in diameter. This migrates slightly inferiorly from the level of the disc space. It causes moderate flattening of the thecal sac and interacts with the L5 nerve root. The disc protusion and ligamentum flavum hypertrophy results in moderate spinal canal canal stenosis. There is moderate right and moderateleft foraminal stenosis secondary to superimposed degenerative findings. Findings at this level similar to the prior study - L5- S1 a 3-mm broad- based left paracentral disc protrusion causes slight posterolateral displacement of left S1 nerver root and causes mild flattening of the thecal sac. 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 This causes thinniing of the anterior sacral jori at the level of S2 nd S3. the cyst is draped around the left S 1 nerve root and expands the left S1 neural foramen. Appearance similr to the prior study. - There is a fat- containing hernia of the anterior absominal wall in the midline. Mouth of the hernia measures 2.8sm in diameter 87Impression: No acute cardiopulmonary findings 88Gynecological results Diagnosis: Negative for intraepithelial lesion or Malignancy 89impression: Mild degenerative disc disease and facet osteoarthritis L5- S1. No fracture subluxationby conventional radiographic technique Vital Signs Most recent to oldest [Reference Range]: 1 Height 167 cm (08/22/23 3:52 PM) Patient Weight 97.8 kg (08/22/23 3:52 PM) Body Mass Index 35.07 kg/m2 (08/22/23 3:52 PM) Temperature [36.5-37.9 DegC] 36.9 DegC (08/22/23 3:52 PM) Heart Rate 126 bpm (08/22/23 3:52 PM) Respiratory Rate 17 br/min (08/22/23 3:52 PM) Blood Pressure 124/72mmHg (08/22/23 3:52 PM) Cuff Pulse Pressure 52 mmHg (08/22/23 3:52 PM) BP Location # 1 Left Arm (08/22/23 3:52 PM) Social History Social History Type Response Tobacco Current every day sm oker, Cigarettes, 1 per day. 21 year(s). Total pack years: 21. Previous treatment: Counseling, Nicotine replacement. Smoking Status Never smoked cigaret olga Sex FCM Outpt Note * DO Nance Franklin J: MODIFY DO Nance Franklin J: MODIFY Event Display: FCM Outpt Note Authored Date: [id number] Chief Complaint not here for hosp. f/u did not go, has multiple concerns for [place]van[place] History of Present Illness 52 year old female presenting for f/u. Was having left LE swelling. Instructed to go to ED on 08/16, but did not. Left Leg Swelling - has been going on for 3 months - was recommend that she go to the ED, but did not - swelling has since resolved - notes intermittent B/L edema - continues to have intermittent B/L calf pain Left Breast Mass - started with pain in lateral breast - noticed lump in anterior breast - stable in size - denies overlying skin changes DM2 - blood sugars have been 150-200s throughout the day - 03/2023 Hemoglobin a1c= 11.1 - insulin 100 units 3 times per day Humulin - did have some issues with pharmacy getting insulin; does have correct medications now Tachycardia - notes that her heart rates are chronically elevated - denies palpitations, chest pain, dyspnea Right Side Headache/TMJ pain - Not like migraines that she has had in the pas - ear pain - also has jaw pain - Saw Dr. Rios in the past; had all of teeth removed Review of Systems As per above Physical Exam Vitals & Measurements T:36.9C HR:126(Monitored) RR:17 BP:124/72 SpO2:98% HT:167cm WT:97.800kg(Dosing) WT:97.8kg BMI:35.07 PHQ2 Data(Data Documented on:08/22/2023 15:51) Emotional health assessment NEGATIVE General:Well-developed, well-nourished patient, in no acute distress, pleasant and normal affect, intact memory. Eyes:No scleral injection or discharge. ENT:Moist mucous membranes.Tympanic membranes are clear bilaterally.Tenderness over rightTMJ Lungs:Clear to auscultation bilaterally with good effort. Cardiac:Regular rate and rhythm.No murmurs.No extremity edema. Neurologic:Grossly intact cranial nerves MSK: Mild calf tenderness B/L. No erythema. No edema. Breast: Discussed and pt deferred Assessment/Plan 1.Type 2 diabetes mellitus, uncontrolled Chronic condition exacerbated/progressive/side effects of treatment Goal:Hemoglobin [id number] than7 Data:unique tests ordered: _hemoglobin a1c, lipid panel Plan: Blood sugars reasonably well controlled per pt report. Repeat labs as per above. 2.TMJ dysfunction Undifferentiated new problem with uncertain prognosis Goal:Resolution Data:_ Plan: Trial of conservative management; heat/ice, behavioral modification. 3.Tachycardia Chronic condition, stable Goal:Stability Data:_ Plan: Chronic. Reviewed TSH from 03/2023. EKGs from prior IP stays reviewed; sinus tachycardia. 4.Edema leg Undifferentiated new problem with uncertain prognosis Goal:Resolution Data:_ Plan: No edema in the office today. Given exam, DVT unlikely. If swelling returns could trial compression stockings. Would also consider further cardiac workup. 5.Left breast lump Undifferentiated new problem with uncertain prognosis Goal:Resolution Data:unique tests ordered: _mammogram Plan: Diagnostic mammogram ordered. Also due for screening, also ordered. Attestation I also saw the patient and confirmed brennan portions of the history and physical examination. I agree with the impression and plan as noted in Dr. Colunga'snote above. Problem List/Past Medical History Ongoing Cervical dysplasia Chronic abdominal pain Chronic insomnia Chronic obstructive pulmonary disease (COPD) CS (cervical spondylosis) Generalized anxiety disorder with panic attacks GERD without esophagitis H/O opioid abuse Hepatic cirrhosis Hidradenitis suppurativa History of herniorrhaphy Lower back pain OCD (obsessive compulsive disorder) Pressure ulcer of buttock Restless leg syndrome Seizure-like activity Tobacco user Type 2 diabetes mellitus, uncontrolled Weight disorder Historical Abdominal pain, chronic, generalized Acute left ankle pain Acute UTI Anticoagulated Bilateral pulmonary embolism Chronic lower back pain Facial abscess Fever HBP (high blood pressure) Hernia, umbilical Hidradenitis Leg swelling Loose bowel movement Lumbar back pain RLQ abdominal pain RLS (restless legs syndrome) Rt flank pain SCIATICA. Tobacco user Tobacco user Tooth infection Procedure/Surgical History CT of abdomen and pelvis (04/01/2023)Doppler ultrasonography of venous structure of limb (02/24/2023)CT of lumbar spine (02/12/2023)CT of head (02/12/2023)CT of head (01/24/2023)CT of head (01/22/2023)Chest x-ray (01/22/2023)MRI of lumbar spine (12/24/2022)CT of cervical spine (12/20/2022)CT of lumbar spine (12/20/2022)CT of head (12/20/2022)Chest X-ray (12/19/2022)Ultrasound of left lower extremitiy venous doppler (11/20/2022)CT of head (10/12/2022)Skeletal X-ray of pelvis and hip (10/12/2022)CT of lumbar spine (10/12/2022)ECG (electrocardiography) procedure (03/06/2022)Chest x-ray (03/06/2022)Plain X-ray of left shoulder (03/06/2022)CT of head without contrast (03/06/2022)Echocardiogram (02/23/2022)EEG (02/22/2022)CT of lumbar spine (02/20/2022)ECG (electrocardiography) procedure (02/20/2022)CT of head without contrast (02/20/2022)CT of cervical spine (02/20/2022)Chest x-ray (02/20/2022)CT angiography of chest with contrast (01/19/2022)Chest X-ray (01/19/2022)X- ray of thoracic spine 2v (01/16/2022)CAT scan head w/o contrast (01/16/2022)X-ray chest (01/16/2022)CAT scan cervical spine (01/16/2022)CT of head (11/28/2021)CT of abdomen and pelvis (11/28/2021)Chest X-ray (11/28/2021)Hip X-ray LT 2V w pelvis (02/13/2021)CT of head (01/27/2021)Chest X-ray (01/27/2021)KUB X-ray (01/27/2021)Ultrasound--abdomen (11/26/2020)CT of abdomen and pelvis with contrast (10/28/2020)CT angiography of chest with contrast (10/28/2020)CT of cervical spine (10/28/2020)CT angiography of brain and neck artery (10/28/2020)CT of head (10/28/2020)Diagnostic mammogram (08/27/2020)Shoulder X-ray (05/19/2020)X-ray of left knee (05/19/2020)Chest CT (09/27/2019)CT of abdomen and pelvis with contrast (09/14/2019)Chest X-ray 2V PA/lateral (08/31/2019)Chest x-ray (06/17/2019)X-ray of lumbar spine and pelvis (06/17/2019)Plain X-ray of toe (09/21/2018)Fine needle aspiration of Seroma (06/30/2018)History of repair of umbilical hernia(05/29/2018)Abdomen x-ray for hernia (05/13/2018)X-ray of abdomen (05/13/2018)Abdomen and pelvis (05/11/2018)Cholecystectomy (05/01/2018)Laparoscopic cholecystectomy (05/01/2018)US abdominal scan- gallbladder (04/29/2018)Chest x-ray (04/29/2018)X-ray of left knee (04/10/2018)Venous doppler ultrasonography (04/04/2018)CT of abdomen and pelvis with contrast (03/18/2018)CT of chest (03/18/2018)Chest x-ray (03/18/2018)CT of head (02/20/2018)Chest x-ray (02/20/2018)Angiography of neck (02/11/2018)Head angiography (02/11/2018)Echocardiogram (02/10/2018)Chest x-ray (02/10/2018)BLE Venous doppler (02/10/2018)Brain MRI (02/10/2018)Chest CT (02/10/2018)CT of head (02/10/2018)Emergency medical services (11/18/2017)Chest CT (11/18/2017)Chest X-ray (11/18/2017)Mammogram (11/04/2017)Doppler (10/26/2017)Chest X-ray (11/27/2015)Doppler ultrasonography of arterial inflow and venous outflow of abdominal, pelvic and retroperitoneal organs (05/22/2015)MRI of lumbar spine (01/26/2013)Chest X-ray (07/11/2010)Cytology report (11/26/2005) Surgical removal of impacted third molar tooth (1997) D & C Diagnostic radiography of lumbar spine Medications albuterol(albuterol 0.083% for nebulization), 2.5 mg= 3 mL, inhaled, q6h albuterol(Ventolin HFA 90 mcg/inh inhalation aerosol), 2 puff, inhaled, q4h, 2 refills busPIRone(busPIRone 5 mg oral tablet), See Instructions, 1 refills clindamycin topical(clindamycin 1% topical gel), See Instructions, 5 refills cyclobenzaprine(cyclobenzaprine 10 mg oral tablet), See Instructions, 1 refills cycloSPORINE ophthalmic(Restasis 0.05% ophthalmic emulsion), 1 drop, both eyes, q12h diabetes supplies(One Touch Delica Plus (30G) Lancets), See Instructions, 3 refills diabetes supplies(One Touch Verio Flex Glucose Monitor), See Instructions diabetes supplies(One Touch Verio Test Strips), See Instructions, 5 refills diclofenac topical(diclofenac 1% topical gel), See Instructions DULoxetine(DULoxetine 60 mg oral delayed release capsule), 60 mg= 1 cap, PO, Daily, 3 refills famotidine(famotidine 40 mg oral tablet), See Instructions, 3 refills fluticasone nasal(fluticasone 50 mcg/inh nasal spray), 1 spray, each nostril, Daily, 5 refills fluticasone-salmeterol(fluticasone-salmeterol 232 mcg-14 mcg/inh inhalation powder), 1 puff, inhaled, bid, 3 refills formoterol-mometasone(Dulera 100 mcg-5 mcg/inh inhalation aerosol), 2 puff, inhaled, bid gabapentin(gabapentin 800 mg oral tablet), See Instructions, 3 refills ibuprofen(ibuprofen 800 mg oral tablet), See Instructions, 3 refills insulin regular(HumuLIN R U500 KwikPen CONCENTRATED 500 units/mL human recombinant subcutaneous solution), See Instructions levETIRAcetam(levETIRAcetam 1000 mg oral tablet), 1 tab, PO, bid levonorgestrel(Mirena 52 mg intrauteral device), 52 mg= 1 each, intrauterine, ONCE lidocaine topical(lidocaine topical 5% patch), See Instructions meloxicam(meloxicam 15 mg oral tablet), See Instructions, 4 refills montelukast(Singulair 10 mg oral tablet), 10 mg= 1 tab, PO, qPM, 3 refills nystatin topical(Nyamyc 100,000 units/g topical powder), See Instructions, 3 refills ondansetron(ondansetron 8 mg oral tablet, disintegrating), 8 mg= 1 tab, PO, q8h, PRN, 11 refills oxyCODONE(oxyCODONE 5 mg oral tablet), 5 mg, PO, q12h, PRN pantoprazole(pantoprazole 20 mg oral delayed release tablet), See Instructions, 3 refills polyethylene glycol 3350(MiraLax) promethazine(Phenergan 25 mg oral tablet), 25 mg= 1 tab, PO, q6h, PRN, 11 refills syringe needles(BD needle Ultra-Fine Pen Klarissa 32G x 4mm), See Instructions traZODone(traZODone 100 mg oral tablet), See Instructions, 2 refills unknown medication(Aspirin 81mg), Daily unlisted medication(bd pen needles), See Instructions, 3 refills Allergies cephalexin (Mild)Nausea KlonoPINconfusion Tylenolnausea levoFLOXacinnausea ctrl'd w/ zofran morphinenausea Social History Smoking Status Never smoked cigarettes Alcohol - Denies Alcohol Use Employment/School - No Risk Status:Unemployed Exercise - Does not exercise Exercise type:Walking Home/Environment - No Risk Nutrition/Health Diet description:eating for one, mostly. Grilled/baked, chicken > beef, eggs for brk Type of diet:Regular Wants to lose weight:Yes Sleeping concerns:No Feels highly stressed:Yes Sexual - Low Risk Sexually active:Yes Self described orientation:Heterosexual Uses condoms:Yes Substance Abuse - High Risk Previous treatment:Treatment center, Inpatient Tobacco - Low Risk Use:Current every day smoker Type:Cigarettes Tobacco use per day:1 Number of years:21 Total pack years:21 Previous treatment:Counseling, Nicotine replacement Family History Heart attack: Mother. Heart attack: MGM and PGM. Hypertension: MGM and PGM. Kidney disease: Father. Kidney stone: Father. Lung cancer..: Mother. Type II diabetes mellitus: MGM. Health Status Family Member(s) Family Member(s) Relationship: Mother, Age: Unknown, Cause: myocardial infarction Immunizations Vaccine Date Status influenza virus vaccine, inactivated 08/22/2023 Given influenza virus vaccine, inactivated 09/16/2021 Given hepatitis B adult vaccine 04/09/2021 Given SARS-CoV-2 (COVID-19) mRNA-1273 vaccine 03/11/2021 Recorded hepatitis B adult vaccine 03/05/2021 Given SARS-CoV-2 (COVID-19) mRNA-1273 vaccine 02/11/2021 Recorded influenza virus vaccine, inactivated 08/28/2020 Given influenza virus vaccine, inactivated 06/14/2019 Given pneumococcal 23-valent vaccine 08/26/2018 Recorded Comments : 2021-02-20: Historical information-source unspecified influenza virus vaccine, inactivated 09/23/2017 Given influenza virus vaccine, inactivated 06/10/2015 Given tetanus/diphtheria/pertuss, acel (Tdap) 05/15/2015 Given influenza virus vaccine, inactivated 07/05/2014 Given influenza virus vaccine, inactivated 07/30/2013 Recorded Comments : 2018-03-07: Historical information-source unspecified tetanus toxoid 10/10/2012 Recorded Comments : 2018-03-07: Historical information-source unspecified tetanus/diphtheria/pertuss, acel (Tdap) 04/09/2010 Recorded Comments : 2018-03-07: Historical information-source unspecified pneumococcal 23-valent vaccine 11/12/2006 Recorded tetanus toxoids-diphtheria, Td (Adult) 11/10/2002 Recorded Comments : 2018-03-07: Historical information-source unspecified Recommendations Health Maintenance Pending(in the next year) OverDue Breast Cancer Screening due08/28/22and every 731day Cervical Cancer Screening due11/29/22and every 5year Diabetic Eye Exam due02/25/23and every 731day Due Adult COVID-19 Vaccination due08/22/23Unknown Frequency Colorectal Cancer Screening due08/22/23Unknown Frequency Diabetes Nephropathy Management due08/22/23Unknown Frequency Pneumococcal Vaccine Adults and Adolescents with Chronic Illness due08/22/23One-time only Shingles Vaccine due08/22/23One-time only Due In Future Diabetes Management A1c not due until11/05/23and every 366day Adult Influenza Vaccine not due until04/09/24and every 1year Body Mass Index not due until08/21/24and every 1year Satisfied(in the past 1 year) Satisfied Adult Influenza Vaccine on08/22/23.Satisfied by OSMAN Reagan Paul Body Mass Index on08/22/23.Satisfied by OSMAN Ojeda Emma Diabetes Management A1c on11/04/22.Satisfied by BE White Lynnae Electronic Signature on File Electronically Reviewed/Signed by: Amanda Colunga DO Author Signature Dt/Tm:08/22/2023 07:46 PM Resident Department of Family Medicine Electronically Reviewed/Signed by: Emery Nance DO Cosigner Signature Dt/Tm: 08/23/2023 08:53AM Department of Family Medicine CSN Patient Care team information Care Team Personnel Name: KECIA Nguyen Kimberly A Position: Physician Appellate Court Clerk - Family Med Member Role: Lifetime Relationship Address: Address: [address] [place] [address] Name: DO Hernandez Amanda Position: Resident Member Role: Lifetime Relationship Address: Address: [address] [place] [address] [place] Name: MD Pérez Christopher Position: Physician - Family Med Member Role: Lifetime Relationship Address: Address: [address] [place] [address] Care Team Related Persons Name: CYNTHIA PITTS Address: home [address] [place], [place] [id number] Name: BRITTNEY BENITEZ Address: home [address], [place] [id number]
--- OUTSIDE RECORDS SUMMARY | 2024-01-12 05:45 | External Medical Summary | Continuity of Care Document ---
Author Name Unknown Organization [facility] [address] [place] [address] [place] [address] [id number] Care Team Providers Care Terra Cotta Roofer Helper Name Role Phone Aiden Pérez Primary Care Physician [phone] Encounter [facility] [id number] Date(s): 12/07/23 - 12/07/23 [facility] [address] Medical [facility] [address] [address] [phone] Encounter Diagnosis Body mass index [BMI] 33.0-33.9, adult(Discharge Diagnosis) - 12/07/23 Skin eschar(Discharge Diagnosis) - 12/07/23 Lower back pain(Discharge Diagnosis) - 12/07/23 Controlled substance agreement signed(Discharge Diagnosis) - 12/07/23 Discharge Disposition: Home or Self Care Attending Physician: MD Pérez Christopher Allergies, Adverse Reactions, Alerts Substance Reaction Severity Status cephalexin Nausea Mild Active morphine nausea Active Tylenol nausea Active KlonoPIN confusion Active levoFLOXacin nausea ctrl'd w/ zofran Acti ve Assessment and Plan Extracted from: Title:Office Visit Note Author:Ezekiel Mancia MD, [facility] Date:12/07/23 1.Skin eschar Chronic condition, stable Goal:Resolution Data:_ _ Plan: _Unknown the origin of the eschar Will consult surgery for possible debridement Denied any fever No concern of active infection now to consider antibiotic RTC if wound start bleeding, suppurating, fever or chills 2.Lower back pain Chronic condition, stable Goal:_ Data:_ _ Plan: _Chronic problem. 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 Sharpe (ortho spine) saw her before, will consult him again 3.Controlled substance agreement signed Chronic condition, stable Goal:Resolution Data:_ _ Plan: _Controlled substance contract was sign today Oxycodone 5 mg BID prn for pain Urine toxicology was send today Immunizations Given and Recorded Vaccine Date Status [...] unspecified Medications albuterol 0.083% for nebulization Start: 11/15/23 15:30:00 EST, 1 vial, inhaled, q6h, Disp# 75 mL, Refills: 1, PRN: as needed for wheezing, Pharmacy: [id number] Start Date: 11/15/23 Status: Ordered Arexvy preservative-free intramuscular injection Start: 09/18/23 22:28:00 EST, 0.5 mL, IM, ONCE, Disp# 0.5 mL, Pharmacy: [id number] Start Date: 09/18/23 Status: Ordered Aspirin 81mg Start: 08/29/20 10:35:00 EST, Aspirin 81mg, Daily Start Date: 08/29/20 Status: Ordered BD needle Ultra-Fine Pen Klarissa 32G x 4mm Start: 09/28/23 14:48:00 EST, See Instructions, Disp# 180 each, Refills: 0, =30 day supply for bothinsulin pens., Pharmacy: [id number] Start Date: 09/28/23 Status: Ordered BD Pen Needle Klarissa U/F Miscellaneous 32G X 4 MM Start: 11/21/23 12:02:00 EST, BD Pen Needle Klarissa U/F Miscellaneous 32G X 4 MM, See Instructions, Disp# 100 unknown unit, Refills: 0, USE FOR INSULIN INJECTION WITH BOTH TYPES OF INSULIN, Pharmacy [id number] Start Date: 11/21/23 Status: Ordered BD Pen Needle Klarissa U/F Miscellaneous 32G X 4 MM Start: 09/29/23 14:10:00 EST, BD Pen Needle Klarissa U/F Miscellaneous 32G X 4 MM, See Instructions, Disp# 100 unknown unit, Refills: 0, use a new pen needle with insulin pens with each injection, Brand Medically Necessary, Pharmacy [facility] Start Date: 09/29/23 Status: Ordered bd pen needles Start: 06/21/23 14:10:00 EDT, bd pen needles, eRx Product Type: Supply, See Instructions, Disp# 100pen_needle, Refills: 3, 1 each to be used with insulin pens. bd pen needles 32x4. needs to be brandnecessary/, Note to Pharmacy: [email or web address], Brand... Start Date: 06/21/23 Status: Ordered Breo Ellipta 200 mcg-25 mcg/inh inhalation powder Start: 09/15/23 15:48:00 EST, 1 puff, inhaled, Daily, Disp# 1 each, Refills: 11, Pharmacy: [id number] Start Date: 09/15/23 Stop Date: 09/09/24 Status: Ordered busPIRone 5 mg oral tablet Start: 11/11/23 15:08:00 EST, See Instructions, Disp# 120 tab, Refills: 1, TAKE 1 TABLET BY MOUTH FOUR TIMES DAILY, Pharmacy: [facility] Start Date: 11/11/23 Status: Ordered clindamycin 1% topical gel Start: 09/28/23 14:48:00 EST, See Instructions, Disp# 30 g, Refills: 5, Apply twice daily, Pharmacy: [facility] Start Date: 09/28/23 Status: Ordered cyclobenzaprine 10 mg oral tablet Start: 11/11/23 15:08:00 EST, See Instructions, Disp# 60 tab, Refills: 1, TAKE 1 TABLET BY MOUTH TWICE DAILY FOR 30 DAYS, Pharmacy: [facility] Start Date: 11/11/23 Status: Ordered diclofenac 1% topical gel Start: 06/03/23 15:52:00 EDT, See Instructions, Disp# 100 g, Refills: 0, APPLY QUARTER-SIZED DOLLOPTOPICALLY TO BOTH KNEES FOUR TIMES DAILY, Pharmacy: [facility] Start Date: 06/03/23 Status: Ordered DULoxetine 60 mg oral delayed release capsule Start: 11/11/23 15:08:00 EST, 1 cap, PO, Daily, Disp# 90 cap, Refills: 4, Pharmacy: [facility] Start Date: 11/11/23 Stop Date: 02/03/25 Status: Ordered famotidine 40 mg oral tablet Start: 10/31/23 16:23:00 EST, See Instructions, Disp# 180 tab, Refills: 4, TAKE 1 TABLET BY MOUTH TWICE DAILY, Pharmacy: [facility] Start Date: 10/31/23 Status: Ordered fluticasone 50 mcg/inh nasal spray Start: 09/28/23 14:48:00 EST, 1 spray, each nostril, Daily, Disp# 16 g, Refills: 5, Pharmacy: [facility] Start Date: 09/28/23 Stop Date: 03/26/24 Status: Ordered fluticasone-salmeterol 232 mcg-14 mcg/inh inhalation powder Start: 07/18/23 13:01:00 EDT, 1 puff, inhaled, bid, Disp# 3 each, Refills: 3, Pharmacy: [facility] Start Date: 07/18/23 Stop Date: 07/12/24 Status: Ordered gabapentin 800 mg oral tablet Start: 09/18/23 22:26:00 EST, See Instructions, Disp# 90 tab, Refills: 3, TAKE 1 TABLET BY MOUTH THREE TIMES A DAY, Pharmacy: [facility] Start Date: 09/18/23 Status: Ordered HumuLIN R U500 KwikPen CONCENTRATED 500 units/mL human recombinant subcutaneous solution Start: 10/31/23 16:11:00 EST, See Instructions, Disp# 18 mL, Refills: 0, bridging rx as patient unable to see endo - 100 units three times a day was previous reported dose, Pharmacy: [facility] Start Date: 10/31/23 Status: Ordered Lantus Solostar Pen 100 units/mL subcutaneous solution Start: 11/21/23 12:01:00 EST, 65 unit =, subQ, bid, Disp# 15 mL, Refills: 0, Pharmacy: [facility] Start Date: 11/21/23 Stop Date: 12/21/23 Status: Ordered levETIRAcetam 1000 mg oral tablet Start: 11/28/23 12:12:00 EST, 1 tab, PO, bid, Disp# 60 tab, Refills: 0, Pharmacy: [facility] Start Date: 11/28/23 Status: Ordered lidocaine topical 5% patch Start: 11/15/23 15:30:00 EST, 1 patch, topical, Daily, Disp# 30 pad, Refills: 1, OFF., Pharmacy: [facility] Start Date: 11/15/23 Status: Ordered meloxicam 15 mg oral tablet Start: 09/21/23 16:44:00 EST, See Instructions, Disp# 90 tab, Refills: 4, TAKE 1 TABLET BY MOUTH ONCE DAILY, Pharmacy: [facility] Start Date: 09/21/23 Status: Ordered MiraLax Start: 01/08/21 11:44:00 EDT, 1 cap BID Start Date: 01/08/21 Status: Ordered Mirena 52 mg intrauteral device Start: 11/04/17 15:15:00, 1 each, intrauterine, ONCE, Disp# 1 each, Pharmacy: [facility] Start Date: 11/04/17 Status: Ordered Nyamyc 100,000 units/g topical powder Start: 11/25/23 16:05:00 EST, See Instructions, Disp# 30 g, Refills: 3, apply to affected area two times daily to three times daily if needed, Pharmacy: [facility] Start Date: 11/25/23 Status: Ordered ondansetron 8 mg oral tablet, disintegrating Start: 04/26/23 11:43:00 EDT, 1 tab, PO, q8h, Disp# 15 tab, Refills: 11, PRN: as needed for nausea/vomiting, Pharmacy: [facility] Start Date: 04/26/23 Stop Date: 06/25/23 Status: Ordered One Touch Delica Plus (30G) Lancets Start: 11/11/23 15:08:00 EST, See Instructions, Disp# 100 each, Refills: 3, Check blood sugar TID, Pharmacy: [facility] Start Date: 11/11/23 Status: Ordered One Touch Verio Flex Glucose Monitor Start: 12/22/22 14:04:00 EDT, See Instructions, Disp# 1 each, Refills: 0, Test blood sugars TID. E11.9, Note to Pharmacy: Current glucometer is broken, Pharmacy: [facility] Start Date: 12/22/22 Status: Ordered One Touch Verio Test Strips Start: 10/31/23 16:23:00 EST, See Instructions, Disp# 200 each, Refills: 5, test blood glucose six times per day, Pharmacy: [facility] Start Date: 10/31/23 Status: Ordered oxyCODONE 5 mg oral tablet Start: 11/25/23 16:05:00 EST, 5 mg =, PO, q12h, Disp# 28 tab, Refills: 0, PRN: as needed for pain, Pharmacy: [facility] Start Date: 11/25/23 Stop Date: 12/09/23 Status: Ordered pantoprazole 20 mg oral delayed release tablet Start: 11/11/23 15:08:00 EST, See Instructions, Disp# 90 tab, Refills: 4, TAKE 1 TABLET BY MOUTH ONCE DAILY, Pharmacy: [facility] Start Date: 11/11/23 Status: Ordered promethazine 25 mg oral tablet Start: 10/31/23 16:50:00 EST, 1 tab, PO, q6h, Disp# 28 tab, Refills: 0, PRN: as needed for nausea/vomiting, Pharmacy: [facility] Start Date: 10/31/23 Stop Date: 11/07/23 Status: Ordered Restasis 0.05% ophthalmic emulsion Start: 02/25/21 11:27:00 EDT, 1 drop, both eyes, q12h Start Date: 02/25/21 Status: Ordered Singulair 10 mg oral tablet Start: 10/17/23 10:57:00 EST, 1 tab, PO, qPM, Disp# 90 tab, Refills: 4, Pharmacy: [facility] Start Date: 10/17/23 Stop Date: 01/09/25 Status: Ordered Symbicort 80 mcg-4.5 mcg/inh inhalation aerosol Start: 09/28/23 14:40:00 EST, 2 puff, inhaled, bid, Disp# 1 each, Refills: 4, Pharmacy: [facility] Start Date: 09/28/23 Status: Ordered traZODone 100 mg oral tablet Start: 09/28/23 14:48:00 EST, See Instructions, Disp# 30 tab, Refills: 2, TAKE ONE TABLET BY MOUTH NIGHTLY AT BEDTIME, Pharmacy: [facility] Start Date: 09/28/23 Status: Ordered Mental Status 12/07/23 Barriers to Learning one year None evide nt Mandatory Health Literacy Documentation Yes Health Literacy Communication Barriers N ever Primary Language Kazakh Problem List Condition Confirmation Course Effective Dates [...] Clinical Service Informant Body mass index [BMI] 33.0-33.9, adult Discharge Diagnosis 12/07/23 Non-Specified Skin eschar Discharge Diagnosis 12/07/23 Lower back pain Discharge Diagnosis 12/07/23 Controlled substance agreement signed Discharge Diagnosis 12/07/23 Procedures Procedure Date Related Diagnosis Body Site [...] 07/11/10 Completed Cytology report 88 11/26/05 Comple krsytle Surgical removal of impacted third molar tooth [...] rhythm Poor R wave progression, consider anterior MO vs. lead placement vs. LVH Abnormal ECG [...] second toe. 56see scanned procedure note from [facility] 57see scanned report 58Fat-containing 8cm umbilical hernia [...] recent to oldest [Reference Range]: 1 Height 165 cm (12/07/23 11:24 AM) Patient Weight 90.5 kg (12/07/23 11:24 AM) Body Mass Index 33.24 kg/m2 (12/07/23 11:24 AM) Temperature [36.5-37.9 DegC] 36.7 DegC (12/07/23 11:24 AM) Heart Rate 108 bpm (12/07/23 11:24 AM) Respiratory Rate 17 br/min (12/07/23 11:24 AM) Blood Pressure 138/76mmHg (12/07/23 11:24 AM) Social History Social History Type Response Tobacco Current every day sm oker, Cigarettes, 1 per day. 21 year(s). Total pack years: 21. Previous treatment: Counseling, Nicotine replacement. Smoking Status Never smoked cigaret olga Sex FCM Outpt Note * MD Beto, Aiden: MODIFY MD Beto, Aiden: MODIFY Event Display: FCM Outpt Note Authored Date: [id number] Chief Complaint umbilical hernia 6/7yrs ago - had issues before w/ incision, oozing d/c, red/painful, spinal stenosis last yr on R side/ now having same sx on L. History of Present Illness Elza is a 53 y/o female with multiple chronic issues here due to rash - Got an hernia repair on 2016, after the surgery she has been having problems on the area including cellulitis -She refers the area is painful -She is taking oxy for the pain -Had been having low grade fever on and off -She describe the rash as black, non itchy. -Refers rash turn black about a month ago -Back pain -she has chronic back issues -post lumbar decompression fusion with persistent neuro deficits - Tarlov cyst involving the lumbosacral spine -Staring to feel more week on her left side -difficult to walk -Pain medicationhelped -No red flags Physical Exam Vitals & Measurements T:36.7C HR:108(Monitored) RR:17 BP:138/76 SpO2:98% HT:165cm WT:90.5kg WT:90.500kg(Dosing) BMI:33.24 PHQ2 Data(Data Documented on:12/07/2023 11:21) Emotional health assessment NEGATIVE General: _Alert and oriented, No acute distress Cardiovascular: _Normal rate, Regular rhythm, No murmur, No gallop. Respiratory: _Lungs are clear to auscultation, Respirations are non-labored, Breath sounds are equal Psych: Mood-affect congruence. Reports no SI/HI. Speech is of normal pace and content Gastrointestinal: _Soft, Non-tender, Non-distended, Normal bowel sounds. Harden dry, brown tissue on her abdomen Musculoskeletal: _Normal range of motion, Left LE with 4/5 in strength.No loss of sensation Assessment/Plan 1.Skin eschar Chronic condition, stable Goal:Resolution Data:_ _ Plan: _Unknown the origin of the eschar Will consult surgery for possible debridement Denied any fever No concern of active infection now to consider antibiotic RTC if wound start bleeding, suppurating, fever or chills 2.Lower back pain Chronic condition, stable Goal:_ Data:_ _ Plan: _Chronic problem. 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 Sharpe (ortho spine) saw her before, will consult him again 3.Controlled substance agreement signed Chronic condition, stable Goal:Resolution Data:_ _ Plan: _Controlled substance contract was sign today Oxycodone 5 mg BID prn for pain Urine toxicology was send today Attestation Pt seen and examined in concert with Dr. Falcon, agree with history and physical as documented above. Plan reviewed in detail. Any corrections or additions are noted here - new onset skin eschar of the abdomen periumbilical without inciting injuryapparent, though in site of previous surgical in tervention. Agree w/ referral for further evaluation for intervention. Chronic LBP with worsening LLE paresthesias and weakness which is resulting in multiple falls without significant injury per patient. With worsening symptoms and h/o back surgery, would agree w/ re-referral to ortho spine for re-evaluation for intervention as well as strongly encourage use of supportive implements and PT. Re: chronic pain, re-update for CSA today with patient declining to provide urine sample after review ofnecessity with nursing. Patient left prior to provider conversation, see note from nursing. Problem List/Past Medical History Ongoing Cervical dysplasia [...] lumbar spine Medications albuterol(albuterol 0.083% for nebulization), 1 vial, inhaled, q6h, PRN budesonide-formoterol(Symbicort 80 mcg-4.5 mcg/inh inhalation aerosol), 2 puff, inhaled, bid, 4 refills busPIRone(busPIRone 5 mg oral tablet), See Instructions, 1 refills clindamycin topical(clindamycin 1% topical gel), See Instructions, 5 refills cyclobenzaprine(cyclobenzaprine 10 mg oral tablet), See Instructions, 1 refills cycloSPORINE ophthalmic(Restasis 0.05% ophthalmic emulsion), 1 drop, both eyes, q12h diabetes supplies(One Touch Verio Test Strips), See Instructions, 5 refills diabetes supplies(One Touch Delica Plus (30G) Lancets), See Instructions, 3 refills diabetes supplies(One Touch Verio Flex Glucose Monitor), See Instructions diclofenac topical(diclofenac 1% topical gel), See Instructions DULoxetine(DULoxetine 60 mg oral delayed release capsule), 60 mg= 1 cap, PO, Daily, 4 refills famotidine(famotidine 40 mg oral tablet), See Instructions, 4 refills fluticasone nasal(fluticasone 50 mcg/inh nasal spray), 1 spray, each nostril, Daily, 5 refills fluticasone-salmeterol(fluticasone-salmeterol 232 mcg-14 mcg/inh inhalation powder), 1 puff, inhaled, bid, 3 refills fluticasone-vilanterol(Breo Ellipta 200 mcg-25 mcg/inh inhalation powder), 1 puff, inhaled, Daily, 11 refills gabapentin(gabapentin 800 mg oral tablet), See Instructions, 3 refills insulin glargine(Lantus Solostar Pen 100 units/mL subcutaneous solution), 65 unit, subQ, bid insulin regular(HumuLIN R U500 KwikPen CONCENTRATED 500 units/mL human recombinant subcutaneous solution), See Instructions levETIRAcetam(levETIRAcetam 1000 mg oral tablet), 1 tab, PO, bid levonorgestrel(Mirena 52 mg intrauteral device), 52 mg= 1 each, intrauterine, ONCE lidocaine topical(lidocaine topical 5% patch), 1 patch, topical, Daily meloxicam(meloxicam 15 mg oral tablet), See Instructions, 4 refills montelukast(Singulair 10 mg oral tablet), 10 mg= 1 tab, PO, qPM, 4 refills nystatin topical(Nyamyc 100,000 units/g topical powder), See Instructions, 3 refills ondansetron(ondansetron 8 mg oral tablet, disintegrating), 8 mg= 1 tab, PO, q8h, PRN, 11 refills oxyCODONE(oxyCODONE 5 mg oral tablet), 5 mg, PO, q12h, PRN pantoprazole(pantoprazole 20 mg oral delayed release tablet), See Instructions, 4 refills polyethylene glycol 3350(MiraLax) promethazine(promethazine 25 mg oral tablet), 1 tab, PO, q6h, PRN RSV vaccine preF3, recombinant(Arexvy preservative-free intramuscular injection), 60 mcg= 0.5 mL, IM, ONCE syringe needles(BD needle Ultra-Fine Pen Klarissa 32G x 4mm), See Instructions traZODone(traZODone 100 mg oral tablet), See Instructions, 2 refills unknown medication(Aspirin 81mg), Daily unlisted medication(BD Pen Needle Klarissa U/F Miscellaneous 32G X 4 MM), See Instructions unlisted medication(BD Pen Needle Klarissa U/F Miscellaneous 32G X 4 MM), See Instructions unlisted medication(bd pen needles), See Instructions, 3 [...] Diabetic Eye Exam due02/25/23and every 731day Due Diabetes Management A1c due11/05/23and every 366day Adult COVID-19 Vaccination due12/08/23Unknown Frequency Adult Social Determinants of Health Screening due12/08/23Unknown Frequency Colorectal Cancer Screening due12/08/23Unknown Frequency Diabetes Nephropathy Management due12/08/23Unknown Frequency Pneumococcal Vaccine Adults and Adolescents with Chronic Illness due12/08/23One-time only Shingles Vaccine due12/08/23One-time only Due In Future Adult Influenza Vaccine not due until04/08/24and every 1year Body Mass Index not due until12/07/24and every 366day Satisfied(in the past 1 year) Satisfied Adult Influenza Vaccine on08/22/23.Satisfied by OSMAN Reagan Paul Body Mass Index on12/07/23.Satisfied by OSMAN Ojeda Emma Electronic Signature on File Electronically Reviewed/Signed by: Jae Mancia MD Author Signature Dt/Tm:12/08/2023 10:00 AM Resident Department of Family Medicine Electronically Reviewed/Signed by: Aiden Pérez MD Cosigner Signature Dt/Tm: 12/08/2023 02:19PM Department of Family Medicine CR Patient Care team information Care Team Personnel Name: KECIA Nguyen Kimberly A Position: Physician Asst Exmpt - Family Med Member Role: Lifetime Relationship Address: Address: [address] [place] [address] Name: DO Hernandez Amanda Position: Resident Member Role: Lifetime Relationship Address: Address: [address] [place] [address] Name: MD Pérez Christopher Position: Physician - Family Med Member Role: Lifetime Relationship Address: Address: [address] [place] [address] [place] Care Team Related Persons Name: CYNTHIA PITTS Address: home [address], [place] [id number] Name: BRITTNEY BENITEZ Address: home [address], [place] [id number]
--- OUTSIDE RECORDS SUMMARY | 2024-01-12 05:45 | External Medical Summary | Continuity of Care Document ---
Author Name Unknown Organization [facility] [id number] [place] [phone] Care Team Providers Care Facing End Trimmer Name Role Phone Aiden Pérez Primary Care Physician [phone] [id number] Date(s): 09/15/23 - 09/15/23 [facility] 0 [facility] 207 [facility] Medical [facility] [address] [phone] Encounter Diagnosis Asthma(Discharge Diagnosis) - 09/15/23 COPD without exacerbation(Discharge Diagnosis) - 09/15/23 Discharge Disposition: Home or Self Care Attending Physician: MD Pérez Christopher Allergies, Adverse Reactions, Alerts Substance Reaction Severity Status cephalexin Nausea Mild Active morphine nausea Active KlonoPIN confusion Active Tylenol nausea Active levoFLOXacin nausea ctrl'd w/ zofran Acti ve Immunizations Given and Recorded Vaccine Date Status [...] Disp# 1 each, Refills: 0, PRN wheezing, Pharmacy:[id number] Start Date: 07/18/23 Status: Ordered Aspirin 81mg Start: 08/29/20 10:35:00 EST, Aspirin 81mg, Daily Start Date: 08/29/20 Status: Ordered BD needle Ultra-Fine Pen Klarissa 32G x 4mm Start: 08/26/23 14:06:00 EST, See Instructions, Disp# 180 each, Refills: 0, =30 day supply for bothinsulin pens., Pharmacy: [id number] Start Date: 08/26/23 Status: Ordered bd pen needles Start: 06/21/23 [...] Daily, Disp# 1 each, Refills: 11, Pharmacy: [facility] Start Date: 09/15/23 Stop Date: 09/09/24 Status: Ordered busPIRone 5 mg oral tablet Start: 09/10/23 17:44:00 EST, See Instructions, Disp# 120 tab, Refills: 1, TAKE 1 TABLET BY MOUTH FOUR TIMES DAILY, Pharmacy: [facility] Start Date: 09/10/23 Status: Ordered clindamycin 1% topical gel Start: 07/04/23 15:56:00 EDT, See Instructions, Disp# 30 g, Refills: 5, Apply twice daily, Pharmacy: [facility] Start Date: 07/04/23 Status: Ordered cyclobenzaprine 10 mg oral tablet Start: 08/11/23 17:04:00 EDT, See Instructions, Disp# 60 tab, Refills: 1, TAKE 1 TABLET BY MOUTH TWICE DAILY FOR 30 DAYS, Pharmacy: [facility] Start Date: 08/11/23 Status: Ordered diclofenac 1% topical gel Start: 06/03/23 15:52:00 EDT, See Instructions, Disp# 100 g, Refills: 0, APPLY QUARTER-SIZED DOLLOPTOPICALLY TO BOTH KNEES FOUR TIMES DAILY, Pharmacy: [facility] Start Date: 06/03/23 Status: Ordered Dulera 100 mcg-5 mcg/inh inhalation aerosol Start: 07/13/23 11:47:00 EDT, 2 puff, inhaled, bid, Disp# 13 g, Refills: 4, rinse mouth and throat after use., Pharmacy: [facility] Start Date: 07/13/23 Status: Ordered DULoxetine 60 mg oral delayed release capsule Start: 06/06/23 16:44:00 EDT, 1 cap, PO, Daily, Disp# 90 cap, Refills: 3, Pharmacy: [facility] Start Date: 06/06/23 Stop Date: 05/31/24 Status: Ordered famotidine 40 mg oral tablet Start: 08/26/23 14:05:00 EST, See Instructions, Disp# 180 tab, Refills: 3, TAKE 1 TABLET BY MOUTH TWICE DAILY, Pharmacy: [facility] Start Date: 08/26/23 Status: Ordered fluticasone 50 mcg/inh nasal spray Start: 06/06/23 16:44:00 EDT, 1 spray, each nostril, Daily, Disp# 16 g, Refills: 5, Pharmacy: [facility] Start Date: 06/06/23 Stop Date: 12/03/23 Status: Ordered fluticasone-salmeterol 232 mcg-14 mcg/inh inhalation powder Start: 07/18/23 13:01:00 EDT, 1 puff, inhaled, bid, Disp# 3 each, Refills: 3, Pharmacy: [facility] Start Date: 07/18/23 Stop Date: 07/12/24 Status: Ordered gabapentin 800 mg oral tablet Start: 08/11/23 17:04:00 EDT, See Instructions, Disp# 90 tab, Refills: 3, TAKE 1 TABLET BY MOUTH THREE TIMES A DAY, Note to Pharmacy: OK to pickle cutter on07/13/23 prior to trip [place] of [place], Pharmacy: [facility] Start Date: 08/11/23 Status: Ordered HumuLIN R U500 KwikPen CONCENTRATED 500 units/mL human recombinant subcutaneous solution Start: 08/24/23 13:40:00 EST, See Instructions, Disp# 18 mL, Refills: 0, bridging rx as patient unable to see endo - 100 units three times a day was previous reported dose, Pharmacy: [facility] Start Date: 08/24/23 Status: Ordered ibuprofen 800 mg oral tablet Start: 12/13/22 12:10:00 EST, See Instructions, Disp# 90 tab, Refills: 3, TAKE 1 TABLET BY MOUTH THREE TIMES DAILY NEEDED FOR PAIN, Pharmacy: [facility] Start Date: 12/13/22 Status: Ordered levETIRAcetam 1000 mg oral tablet Start: 09/16/23 16:48:00 EST, 1 tab, PO, bid, Disp# 60 tab, Refills: 0, Pharmacy: [facility] Start Date: 09/16/23 Status: Ordered lidocaine topical 5% patch Start: 07/18/23 13:01:00 EDT, See Instructions, Disp# 30 pad, Refills: 0, APPLY 1 PATCH TOPICALLY ONCE DAILY - 12 HOURS ON, 12 HOURS OFF, Pharmacy: [facility] Start Date: 07/18/23 Status: Ordered meloxicam 15 mg oral tablet Start: 08/11/23 17:04:00 EDT, See Instructions, Disp# 90 tab, Refills: 4, TAKE 1 TABLET BY MOUTH ONCE DAILY, Pharmacy: [facility] Start Date: 08/11/23 Status: Ordered MiraLax Start: 01/08/21 11:44:00 EDT, 1 cap BID Start Date: 01/08/21 Status: Ordered Mirena 52 mg intrauteral device Start: 11/04/17 15:15:00, 1 each, intrauterine, ONCE, Disp# 1 each, Pharmacy: [facility] Start Date: 11/04/17 Status: Ordered Nyamyc 100,000 units/g topical powder Start: 07/18/23 13:01:00 EDT, See Instructions, Disp# 30 g, Refills: 3, apply to affected area two times daily to three times daily if needed, Pharmacy: [facility] Start Date: 07/18/23 Status: Ordered ondansetron 8 mg oral tablet, disintegrating Start: 04/26/23 11:43:00 EDT, 1 tab, PO, q8h, Disp# 15 tab, Refills: 11, PRN: as needed for nausea/vomiting, Pharmacy: [facility] Start Date: 04/26/23 Stop Date: 06/25/23 Status: Ordered One Touch Delica Plus (30G) Lancets Start: 08/26/23 14:06:00 EST, See Instructions, Disp# 100 each, Refills: 3, Check blood sugar TID, Pharmacy: [facility] Start Date: 08/26/23 Status: Ordered One Touch Verio Flex Glucose Monitor Start: 12/22/22 14:04:00 EDT, See Instructions, Disp# 1 each, Refills: 0, Test blood sugars TID. E11.9, Note to Pharmacy: Current glucometer is broken, Pharmacy: [facility] Start Date: 12/22/22 Status: Ordered One Touch Verio Test Strips Start: 08/11/23 17:04:00 EDT, See Instructions, Disp# 200 each, Refills: 5, test blood glucose six times per day, Pharmacy: [facility] Start Date: 08/11/23 Status: Ordered oxyCODONE 5 mg oral tablet Start: 09/07/23 16:42:00 EST, 5 mg =, PO, q12h, Disp# 28 tab, Refills: 0, PRN: as needed for pain, Pharmacy: [facility] Start Date: 09/07/23 Stop Date: 09/21/23 Status: Ordered pantoprazole 20 mg oral delayed release tablet Start: 08/11/23 17:04:00 EDT, See Instructions, Disp# 90 tab, Refills: 3, TAKE 1 TABLET BY MOUTH ONCE DAILY, Pharmacy: [facility] Start Date: 08/11/23 Status: Ordered Phenergan 25 mg oral tablet Start: 04/26/23 11:42:00 EDT, 1 tab, PO, q6h, Disp# 28 tab, Refills: 11, PRN: as needed for nausea/vomiting, Pharmacy: [facility] Start Date: 04/26/23 Stop Date: 07/19/23 Status: Ordered Restasis 0.05% ophthalmic emulsion Start: 02/25/21 11:27:00 EDT, 1 drop, both eyes, q12h Start Date: 02/25/21 Status: Ordered Singulair 10 mg oral tablet Start: 06/06/23 16:44:00 EDT, 1 tab, PO, qPM, Disp# 90 tab, Refills: 3, Pharmacy: [facility] Start Date: 06/06/23 Stop Date: 05/31/24 Status: Ordered traZODone 100 mg oral tablet Start: 07/29/23 9:04:00 EDT, See Instructions, Disp# 30 tab, Refills: 2, TAKE ONE TABLET BY MOUTH NIGHTLY AT BEDTIME, Pharmacy: [facility] Start Date: 07/29/23 Status: Ordered Ventolin HFA 90 mcg/inh inhalation aerosol Start: 06/06/23 16:44:00 EDT, 2 puff, inhaled, q4h, Disp# 3 each, Refills: 2, Pharmacy: [facility] Start Date: 06/06/23 Stop Date: 03/02/24 Status: Ordered Mental Status 09/15/23 Barriers to Learning one year None evide nt Mandatory Health Literacy Documentation Yes Health Literacy Communication Barriers N ever Primary Language [place] Problem List Condition Confirmation Course Effective Dates [...] Effective Dates Health Status Clinical Service Informant Asthma Discharge Diagnosis 09/15/23 Non-Specified COPD without exacerbation Discharge Diagnosis 09/15/23 Non-Specified Procedures Procedure Date Related Diagnosis Body Site [...] rhythm Poor R wave progression, consider anterior PR vs. lead placement vs. LVH Abnormal ECG [...] second toe. 56see scanned procedure note from [facility] 57see scanned report 58Fat-containing 8cm umbilical hernia [...] Most recent to oldest [Reference Range]: 1 Patient Weight 91.5 kg (09/15/23 2:32 PM) Temperature [36.5-37.9 DegC] 36.9 DegC (09/15/23 2:32 PM) Heart Rate 111 bpm (09/15/23 2:32 PM) Respiratory Rate 20 br/min (09/15/23 2:32 PM) Blood Pressure 124/78mmHg (09/15/23 2:32 PM) Social History Social History Type Response Tobacco Current every day sm oker, Cigarettes, 1 per day. 21 year(s). Total pack years: 21. Previous treatment: Counseling, Nicotine replacement. Smoking Status Never smoked cigaret olga Sex Patient Care team information Care Team Personnel Name: KECIA Nguyen, Niya Smith Position: Physician Laster Hand - Family Med Member Role: Lifetime Relationship Address: Address: [address] [place] [address] Name: DO Hernandez Amanda Position: Resident Member Role: Lifetime Relationship Address: Address: [address] [place] [address] Name: MD Pérez Christopher Position: Physician - Family Med Member Role: Lifetime Relationship Address: Address: [address] [place] [address] Care Team Related Persons Name: CYNTHIA PITTS Address: home [address], [place] [id number] Name: BRITTNEY BENITEZ Address: home [address] [place], [place] [id number]
--- OUTSIDE RECORDS SUMMARY | 2024-01-12 05:45 | External Medical Summary | Continuity of Care Document ---
Author Name Unknown Organization [facility] [id number] [place] [phone] Care Team Providers Care Physician Assistant Psychiatry Name Role Phone Aiden Pérez Primary Care Physician [phone] Encounter [facility] [id number] Date(s): 01/04/24 - 01/04/24 [facility] [address]49 [facility] 207 [facility] 1850 [facility] [address] [place] [address] [phone] Encounter Diagnosis Failure to thrive in adult(Discharge Diagnosis) - 01/04/24 Ambulatory dysfunction(Discharge Diagnosis) - 01/04/24 Skin lesion(Discharge Diagnosis) - 01/04/24 Right leg weakness(Discharge Diagnosis) - 01/04/24 Type 2 diabetes mellitus, uncontrolled(Discharge Diagnosis) - 01/04/24 Discharge Disposition: Home or Self Care Attending Physician: MD Pérez Christopher Allergies, Adverse Reactions, Alerts Substance Reaction Severity Status cephalexin Nausea Mild Active morphine nausea Active Tylenol nausea Active KlonoPIN confusion Active levoFLOXacin nausea ctrl'd w/ zofran Acti ve Assessment and Plan Extracted from: Title:FCM - T - amb dysfxn, DMII Author:Shukri Pérez Christopher Date:01/04/24 1.Failure to thrive in nguyễn lt Chronic in severe exacerbation/progression/side effects Goal:improve function,further evaluation Data:none available Plan: - reviewed options for evaluation and management of multiple exacerbated chronic issues - as patient is unable to secure transport to care, recommendation provided to call 911 and take ambulance transport to hospital for further evaluation - will need considerable case management support to secure basic function in the course of recovery 2.Ambulatory dysfunction Undifferentiated new problem with uncertain prognosis Goal:evaluation Data:pending Plan: - recent fall onto R hip compounded with h/o tarlov cyst as well as lumbar stenosis with intermittent sciatic symptoms w/ new onset LE numbness/weakness - will require PT services and likely home PT for support with ambulatory dysfunction when she is there unless placement to rehab center first, which I would likely prefer - will need imaging e.g. MRI of L spine to determine etiology for weakness which she is unable to get right now - no current pain complaint 3.Right leg weakness as above 4.Type 2 diabetes mellitus, uncontrolled Chronic in severe exacerbation/progression/side effects Goal:_<7% Data: none available Plan: - per patient, home glycemic index still showing 300+/HIGH on meter - previously recommended in chart to present to ED for HIGH unreadable measure when triaged and did not go/present, has not gone to ED in months for her hyperglycemia nor for her recurrent falls/injuries despite office recommendations 5.Skin lesion Undifferentiated new problem with uncertain prognosis Goal:resolution Data:none available Plan: - though it does appear improved on telehealth visit today etiology is still undetermined and will likely require bx vs. further evaluation based on clinical assessment - pt cancelled wound care evalution w/ gen surg because the larger scab came off, encourage re-establish that course of care Time:Total time spent with this patient on day of evaluation including chart review, ordering, education and coordination of care elements:50 minutes Immunizations Given and Recorded Vaccine Date Status [...] 1, PRN: as needed for wheezing, Pharmacy: [id number] Start Date: 11/15/23 Status: Ordered Arexvy preservative-free intramuscular injection Start: 09/18/23 22:28:00 EST, 0.5 mL, IM, ONCE, Disp# 0.5 mL, Pharmacy: [id number] Start Date: 09/18/23 Status: Ordered Aspirin 81mg Start: 08/29/20 10:35:00 EST, Aspirin 81mg, Daily Start Date: 08/29/20 Status: Ordered BD needle Ultra-Fine Pen Klarissa 32G x 4mm Start: 09/28/23 14:48:00 EST, See Instructions, Disp# 180 each, Refills: 0, =30 day supply for bothinsulin pens., Pharmacy: [id number] Start Date: 09/28/23 Status: Ordered BD Pen Needle Klarissa U/F Miscellaneous 32G X 4 MM Start: 12/15/23 13:19:00 EST, BD Pen Needle Klarissa U/F Miscellaneous 32G X 4 MM, See Instructions, Disp# 100 unknown unit, Refills: 0, USE FOR INSULIN INJECTION WITH BOTH TYPES OF INSULIN, Pharmacy [id number] Start Date: 12/15/23 Status: Ordered BD Pen Needle Klarissa U/F Miscellaneous 32G X 4 MM Start: 11/21/23 12:02:00 EST, BD Pen Needle Klarissa U/F Miscellaneous 32G X 4 MM, See Instructions, Disp# 100 unknown unit, Refills: 0, USE FOR INSULIN INJECTION WITH BOTH TYPES OF INSULIN, Pharmacy [id number] Start Date: 11/21/23 Status: Ordered BD Pen Needle Klarissa U/F Miscellaneous 32G X 4 MM Start: 09/29/23 14:10:00 EST, BD Pen Needle Klarissa U/F Miscellaneous 32G X 4 MM, See Instructions, Disp# 100 unknown unit, Refills: 0, use a new pen needle with insulin pens with each injection, Brand Medically Necessary, Pharmacy [id number] Start Date: 09/29/23 Status: Ordered [...] Daily, Disp# 1 each, Refills: 11, Pharmacy: [id number] Start Date: 09/15/23 Stop Date: 09/09/24 Status: Ordered busPIRone 5 mg oral tablet Start: 11/11/23 15:08:00 EST, See Instructions, Disp# 120 tab, Refills: 1, TAKE 1 TABLET BY MOUTH FOUR TIMES DAILY, Pharmacy: [id number] Start Date: 11/11/23 Status: Ordered clindamycin 1% topical gel Start: 09/28/23 14:48:00 EST, See Instructions, Disp# 30 g, Refills: 5, Apply twice daily, Pharmacy: [id number] Start Date: 09/28/23 Status: Ordered cyclobenzaprine 10 mg oral tablet Start: 11/11/23 15:08:00 EST, See Instructions, Disp# 60 tab, Refills: 1, TAKE 1 TABLET BY MOUTH TWICE DAILY FOR 30 DAYS, Pharmacy: [id number] Start Date: 11/11/23 Status: Ordered diclofenac 1% topical gel Start: 01/02/24 11:51:00 EDT, See Instructions, Disp# 100 g, Refills: 0, apply quarter-sized dolloptopically to both knees four times daily, Pharmacy: [id number] Start Date: 01/02/24 Status: Ordered DULoxetine 60 mg oral delayed release capsule Start: 11/11/23 15:08:00 EST, 1 cap, PO, Daily, Disp# 90 cap, Refills: 4, Pharmacy: [id number] Start Date: 11/11/23 Stop Date: 02/03/25 Status: Ordered famotidine 40 mg oral tablet Start: 10/31/23 16:23:00 EST, See Instructions, Disp# 180 tab, Refills: 4, TAKE 1 TABLET BY MOUTH TWICE DAILY, Pharmacy: [id number] Start Date: 10/31/23 Status: Ordered fluticasone 50 mcg/inh nasal spray Start: 09/28/23 14:48:00 EST, 1 spray, each nostril, Daily, Disp# 16 g, Refills: 5, Pharmacy: [id number] Start Date: 09/28/23 Stop Date: 03/26/24 Status: Ordered fluticasone-salmeterol 232 mcg-14 mcg/inh inhalation powder Start: 07/18/23 13:01:00 EDT, 1 puff, inhaled, bid, Disp# 3 each, Refills: 3, Pharmacy: [id number] Start Date: 07/18/23 Stop Date: 07/12/24 Status: Ordered gabapentin 800 mg oral tablet Start: 09/18/23 22:26:00 EST, See Instructions, Disp# 90 tab, Refills: 3, TAKE 1 TABLET BY MOUTH THREE TIMES A DAY, Pharmacy: [id number] Start Date: 09/18/23 Status: Ordered HumuLIN R U500 KwikPen CONCENTRATED 500 units/mL human recombinant subcutaneous solution Start: 12/15/23 13:19:00 EST, See Instructions, Disp# 18 mL, Refills: 0, bridging rx as patient unable to see endo - 100 units three times a day was previous reported dose, Pharmacy: [id number] Start Date: 12/15/23 Status: Ordered Lantus Solostar Pen 100 units/mL subcutaneous solution Start: 01/02/24 11:51:00 EDT, 65 unit =, subQ, bid, Disp# 15 mL, Refills: 0, Pharmacy: [id number] Start Date: 01/02/24 Stop Date: 02/01/24 Status: Ordered levETIRAcetam 1000 mg oral tablet Start: 11/28/23 12:12:00 EST, 1 tab, PO, bid, Disp# 60 tab, Refills: 0, Pharmacy: [id number] Start Date: 11/28/23 Status: Ordered lidocaine topical 5% patch Start: 11/15/23 15:30:00 EST, 1 patch, topical, Daily, Disp# 30 pad, Refills: 1, OFF., Pharmacy: [id number] Start Date: 11/15/23 Status: Ordered meloxicam 15 mg oral tablet Start: 09/21/23 16:44:00 EST, See Instructions, Disp# 90 tab, Refills: 4, TAKE 1 TABLET BY MOUTH ONCE DAILY, Pharmacy: [id number] Start Date: 09/21/23 Status: Ordered MiraLax Start: 01/08/21 11:44:00 EDT, 1 cap BID Start Date: 01/08/21 Status: Ordered Mirena 52 mg intrauteral device Start: 11/04/17 15:15:00, 1 each, intrauterine, ONCE, Disp# 1 each, Pharmacy: [id number] Start Date: 11/04/17 Status: Ordered Nyamyc 100,000 units/g topical powder Start: 11/25/23 16:05:00 EST, See Instructions, Disp# 30 g, Refills: 3, apply to affected area two times daily to three times daily if needed, Pharmacy: [facility] Start Date: 11/25/23 Status: Ordered ondansetron 8 mg oral tablet, disintegrating Start: 04/26/23 11:43:00 EDT, 1 tab, PO, q8h, Disp# 15 tab, Refills: 11, PRN: as needed for nausea/vomiting, Pharmacy: [facility] Start Date: 04/26/23 Stop Date: 06/25/23 Status: Ordered One Touch Delica Plus (30G) Lancets Start: 11/11/23 15:08:00 EST, See Instructions, Disp# 100 each, Refills: 3, Check blood sugar TID, Pharmacy: [id number] Start Date: 11/11/23 Status: Ordered One Touch Verio Flex Glucose Monitor Start: 12/22/22 14:04:00 EDT, See Instructions, Disp# 1 each, Refills: 0, Test blood sugars TID. E11.9, Note to Pharmacy: Current glucometer is broken, Pharmacy: [id number] Start Date: 12/22/22 Status: Ordered One Touch Verio Test Strips Start: 10/31/23 16:23:00 EST, See Instructions, Disp# 200 each, Refills: 5, test blood glucose six times per day, Pharmacy: [id number] Start Date: 10/31/23 Status: Ordered oxyCODONE 5 mg oral tablet Start: 11/25/23 16:05:00 EST, 5 mg =, PO, q12h, Disp# 28 tab, Refills: 0, PRN: as needed for pain, Pharmacy: [id number] Start Date: 11/25/23 Stop Date: 12/09/23 Status: Ordered pantoprazole 20 mg oral delayed release tablet Start: 11/11/23 15:08:00 EST, See Instructions, Disp# 90 tab, Refills: 4, TAKE 1 TABLET BY MOUTH ONCE DAILY, Pharmacy: [facility] Start Date: 11/11/23 Status: Ordered promethazine 25 mg oral tablet Start: 01/02/24 11:51:00 EDT, 1 tab, PO, q6h, Disp# 28 tab, Refills: 0, PRN: as needed for nausea/vomiting, Pharmacy: [id number] Start Date: 01/02/24 Stop Date: 01/09/24 Status: Ordered Restasis 0.05% ophthalmic emulsion Start: 02/25/21 11:27:00 EDT, 1 drop, both eyes, q12h Start Date: 02/25/21 Status: Ordered Singulair 10 mg oral tablet Start: 10/17/23 10:57:00 EST, 1 tab, PO, qPM, Disp# 90 tab, Refills: 4, Pharmacy: [id number] Start Date: 10/17/23 Stop Date: 01/09/25 Status: Ordered Symbicort 80 mcg-4.5 mcg/inh inhalation aerosol Start: 09/28/23 14:40:00 EST, 2 puff, inhaled, bid, Disp# 1 each, Refills: 4, Pharmacy: [facility] Start Date: 09/28/23 Status: Ordered traZODone 100 mg oral tablet Start: 09/28/23 14:48:00 EST, See Instructions, Disp# 30 tab, Refills: 2, TAKE ONE TABLET BY MOUTH NIGHTLY AT BEDTIME, Pharmacy: [id number] Start Date: 09/28/23 Status: Ordered Mental Status 01/04/24 Barriers to Learning one year None evide nt Mandatory Health Literacy Documentation Yes Health Literacy Communication Barriers N ever Primary Language Slovenian Problem List Condition Confirmation Course Effective Dates Status H ealth Status Informant Failure to thrive in adult Confirmed Active CS (cervical spondylosis) Confirmed Active Chronic abdominal [...] Type 2 diabetes mellitus, uncontrolled Confirmed Active Ambulatory dysfunction Confirmed Active Weight disorder Confirmed Active Diagnosis Diagnosis Type Effective Dates Health Status Clinical Service Informant Ambulatory dysfunction Discharge Diagnosis 01/04/24 Skin lesion Discharge Diagnosis 01/04/24 Type 2 diabetes mellitus, uncontrolled Discharge Diagnosis 01/04/24 Right leg weakness Discharge Diagnosis 01/04/24 Failure to thrive in adult Discharge Diagnosis 01/04/24 Procedures Procedure Date Related Diagnosis Body Site [...] rhythm Poor R wave progression, consider anterior MA vs. lead placement vs. LVH Abnormal ECG [...] second toe. 56see scanned procedure note from [facility] 57see scanned report 58Fat-containing 8cm umbilical hernia [...] S1. No fracture subluxationby conventional radiographic technique Social History Social History Type Response Tobacco Current every day sm oker, Cigarettes, 1 per day. 21 year(s). Total pack years: 21. Previous treatment: Counseling, Nicotine replacement. Smoking Status Never smoked cigaret olga Sex FCM Outpt Note * MD Pérez Christopher: PERFORM Event Display: FCM Outpt Note Authored Date: [id number] TeleHealth Visit Note I have confirmed the patients name and date of . The patient has consented to this service,and I have advised the patient that this is a billable visit for which they may be subject to a copay. The patient initiated this visit after they were informed of the availability of TeleHealth for this medically necessary visit. I am located at my office. The patient is located at home. This visit was conducted via live audio/video technology via [employer]. Chief Complaint 3 month f/u. History of Present Illness MDD with anxiety, acute exacerbation - significant life stress re: difficulties with health, ambulation, connection w/ son - limited motivation, significant unintentional weight loss - reports no thoughts of SI/HI - talking with family trying to help, father trying to organize care Lower back pain with reported RLE weakness - has been in a wheelchair for the last days-weeks 2/2 loss of strength and sensation - baseline chronic back pain has been unchanged - no significant increase in pain medication use or requests for same - Annemarie declined the consult and referred to neurosurgery, patient has not pursued same Abdominal scab/lesion - has not yet seen surgery for evaluation as has cancelled appointment - has been using home clindamycin topical cream since the "scab fell off" - still painful with a remaining "scab" but not burning/hot Diabetes Type II,uncontrolled with hyperglycemia - current regimen as noted -on statin therapy and ACEi/ARB per medication list - home glucose measurements - multiple previous episodes of "High" - "I haven't been to the ER since May" Bilateral LE swelling, previously with left sided > right - has had multiple falls in the interim (including R hip injury) which also negatively impacted mobility Reached out to [facility], full evaluation pending per patient [facility] [employer] following her as well (insurance) Has a person coming by once a week for help with cleaning and similar Still getting checked in on by [place] who encourage connecting w/ resources Physical Exam General: _Alert and oriented, No acute distress Psych: Mood-affect congruence. Reports no SI/HI. Speech is of normal pace and content Integumentary: _Dry and intact. On camera ~3cm minimally erythematous lesion of the area without visible drainage or significant patient guided TTP Assessment/Plan 1.Failure to thrive in adult Chronic in severe exacerbation/progression/side effects Goal:improve function,further evaluation Data:none available Plan: - reviewed options for evaluation and management of multiple exacerbated chronic issues - as patient is unable to secure transport to care, recommendation provided to call 911 and take ambulance transport to hospital for further evaluation - will need considerable case management support to secure basic function in the course of recovery 2.Ambulatory dysfunction Undifferentiated new problem with uncertain prognosis Goal:evaluation Data:pending Plan: - recent fall onto R hip compounded with h/o tarlov cyst as well as lumbar stenosis with intermittent sciatic symptoms w/ new onset LE numbness/weakness - will require PT services and likely home PT for support with ambulatory dysfunction when she is there unless placement to rehab center first, which I would likely prefer - will need imaging e.g. MRI of L spine to determine etiology for weakness which she is unable to get right now - no current pain complaint 3.Right leg weakness as above 4.Type 2 diabetes mellitus, uncontrolled Chronic in severe exacerbation/progression/side effects Goal:_<7% Data:none available Plan: - per patient, home glycemic index still showing 300+/HIGH on meter - previously recommended in chart to present to ED for HIGH unreadable measure when triaged and didnot go/present, has not gone to ED in months for her hyperglycemia nor for her recurrent falls/injuries despite office recommendations 5.Skin lesion Undifferentiated new problem with uncertain prognosis Goal:resolution Data:none available Plan: - though it does appear improved on telehealth visit today etiology is still undetermined and will likely require bx vs. further evaluation based on clinical assessment - pt cancelled wound care evalution w/ gen surg because the larger scab came off, encourage re-establish that course of care Time:Total time spent with this patient on day of evaluation including chart review, ordering, education and coordination of care elements:50 minutes Problem List/Past Medical History Ongoing Ambulatory dysfunction Cervical dysplasia Chronic abdominal pain Chronic insomnia Chronic obstructive pulmonary disease (COPD) CS (cervical spondylosis) Failure to thrive in adult Generalized anxiety disorder with panic attacks GERD [...] infection Procedure/Surgical History CT of abdomen and pelvis| Service Date: 3Doppler ultrasonography of venous structureof limb| Service Date: 02/24/2023T of lumbar spine| Service Date: 02/12/2023T of head| Service Date: 05/06/2023CT of head| Service Date: 3CT of head| Service Date: 01/22/2023hest x-ray| Service Date: 01/22/2023MRI of lumbar spine| Service Date: 3CT of cervical spine| Service Date: 3CT of lumbar spine| Service Date: 3CT of head| Service Date: 12/20/2022hest X-ray| Service Date: 12/19/2022Ultrasound of left lower extremitiy venous doppler| Service Date: 3CT of head| Service Date: 10/12/2022Skeletal X-ray of pelvis and hip| Service Date: 10/12/2022T of lumbar spine| Service Date: 10/12/2022ECG (electrocardiography) procedure| Service Date: 03/06/2022hest x-ray| Service Date: 03/06/2022lain X-ray of left shoulder| Service Date: 03/06/2022T of head without contrast| Service Date: 03/06/2022Echocardiogram| Service Date: 02/23/2022EEG| Service Date: 2CT of lumbar spine| Service Date: 02/20/2022ECG (electrocardiography) procedure| Service Date: 02/20/2022T of head without contrast| Service Date: 02/20/2022T of cervical spine| Service Date: 02/20/2022hest x-ray| Service Date: 02/20/2022T angiography of chest with contrast| Service Date: 01/19/2022hest X-ray| Service Date: 01/19/2022X-ray of thoracic spine 2v| Service Date: 01/16/2022AT scan head w/o contrast| Service Date: 01/16/2022X-ray chest| Service Date: 01/16/2022AT scan cervical spine| Service Date: 01/16/2022T of head| Service Date: 11/28/2021T of abdomen and pelvis| Service Date: 11/28/2021hest X-ray| Service Date: 11/28/2021Hip X-ray LT 2V w pelvis| Service Date: 02/13/2021T of head| Service Date: 01/27/2021hest X-ray| Service Date: 01/27/2021KUB X-ray| Service Date: 01/27/2021Ultrasound--abdomen| Service Date: 11/26/2020T of abdomen and pelvis with contrast| Service Date: 10/28/2020T angiography of chest with contrast| Service Date: 10/28/2020T of cervical spine| Service Date: 10/28/2020T angiography of brain and neck artery| Service Date: 10/28/2020T of head| Service Date: 10/28/2020iagnostic mammogram| Service Date: 08/27/2020Shoulder X-ray| Service Date: 05/19/2020X-ray of left knee| Service Date: 05/19/2020Chest CT| Service Date: 09/27/2019CT of abdomen and pelvis with contrast|Service Date: 09/14/2019Chest X-ray 2V PA/lateral| Service Date: 08/31/2019Chest x-ray| Service Date: 06/17/2019X-ray of lumbar spine and pelvis| Service Date: 06/17/2019Plain X-ray of toe| Service Date: 09/21/2018Fine needle aspiration of Seroma| Service Date: 06/30/2018History of repair of umbilical hernia| Service Date: 05/29/2018Abdomen x-ray for hernia| Service Date: 05/13/2018X-ray of abdomen| Service Date: 05/13/2018Abdomen and pelvis| Service Date: 05/11/2018Cholecystectomy| Service Date: 05/01/2018Laparoscopic cholecystectomy| Service Date: 05/01/2018US abdominal scan- gallbladder| Service Date: 04/29/2018Chest x-ray| Service Date: 04/29/2018X-ray of left knee| Service Date: 04/10/2018Venous doppler ultrasonography| Service Date: 04/04/2018CT of abdomen and pelvis with contrast| Service Date: 03/18/2018CT of chest| Service Date: 03/18/2018Chest x-ray| Service Date: 03/18/2018CT of head| Service Date: 02/20/2018Chest x-ray| Service Date: 05/14/2018Angiography of neck| Service Date: 02/11/2018Head angiography| S ervice Date: 02/11/2018Echocardiogram| Service Date: 02/10/2018Chest x- ray| Service Date: 02/10/2018BLE Venous doppler| Service Date: 02/10/2018Brain MRI| Service Date: 02/10/2018ChestCT| Service Date: 02/10/2018CT of head| Service Date: 02/10/2018Emergency medical services| Service Date: 11/18/2017Chest CT| Service Date: 11/18/2017Chest X-ray| Service Date: 11/18/2017Mammogram| Service Date: 11/04/2017Doppler| Service Date: 10/26/2017Chest X-ray| Service Date: 11/27/2015Doppler ultrasonography of arterial inflow and venous outflow of abdominal, pelvic and retroperitoneal organs| Service Date: 05/22/2015MRI of lumbar spine| Service Date: 01/26/2013Chest X-ray| Service Date: 07/11/2010Cytology report| Service Date: 11/26/2005Surgical removal of impacted third molar tooth| Service Date: 1997 D & C Diagnostic radiography of lumbarspine Medications albuterol(albuterol 0.083% for nebulization), 1 vial, [...] due02/25/23and every 731day Due Adult COVID-19 Vaccination due01/06/24Unknown Frequency Adult Social Determinants of Health Screening due01/06/24Unknown Frequency Colorectal Cancer Screening due01/06/24Unknown Frequency Diabetes Nephropathy Management due01/06/24Unknown Frequency Pneumococcal Vaccine Adults and Adolescents with Chronic Illness due01/06/24One-time only Shingles Vaccine due01/06/24One-time only Due In Future Diabetes Management A1c not due until04/02/24and every 366day Adult Influenza Vaccine not due until04/08/24and every 1year Body Mass Index not due until12/07/24and every 366day Satisfied(in the past 1 year) Satisfied Adult Influenza Vaccine on08/22/23.Satisfied by OSMAN Reagna Paul Body Mass Index on12/07/23.Satisfied by OSMAN Ojeda Emma Diabetes Management A1c on04/02/23.Satisfied by BE White Lynnae Electronic Signature on File Electronically Reviewed/Signed by: Aiden Pérez MD Author Signature Dt/Tm:01/06/2024 09:55 AM Department of Family Medicine Patient Care team information Care Team Personnel Name: KECIA Nguyen, Niya Smith Position: Physician Asst Exmpt - Family Med Member Role: Lifetime Relationship Address: Address: [facility] [address] Name: DO Hernandez Amanda Position: Resident Member Role: Lifetime Relationship Address: Address: [facility] [address] Name: MD Pérez Christopher Position: Physician - Family Med Member Role: Lifetime Relationship Address: Address: [facility] [address] Care Team Related Persons Name: CYNTHIA PITTS Address: home [address], [place] [id number] Name: BRITTNEY BENITEZ Address: home [address], [place] [phone]
[2024-01-12] MEDS: ENOXAPARIN INJ 40 MG/0.4 ML SYR SQ SCH (08:21)
[2024-01-12] MEDS: MELOXICAM 7.5 MG TAB PO SCH (08:21)
[2024-01-12] MEDS: ASPIRIN 81 MG ECTAB PO SCH (08:21)
[2024-01-12] MEDS: FLUTICASONE/VILANTEROL 100/25MCG 14 PUFFS/INHALER INH SCH (08:21)
[2024-01-12 08:39] LABS: Basophils # (auto) 0.02 K/uL (0.00-0.20); Basophils % (auto) 0.4 %; Eosinophils # (auto) 0.13 K/uL (0.00-0.50); Eosinophils % (auto) 2.5 %; Hematocrit (blood only) 37.4 % (37.0-47.0); Hemoglobin 12.4 g/dl (12.0-16.0); Immature Granulocytes # (auto) 0.01 K/uL (0.01-0.20); Immature Granulocytes % (auto) 0.2 %; Lymphocytes # (auto) 1.79 K/uL (1.20-3.40); Lymphocytes % (auto) 34.9 %; Mean Corpuscular Hemoglobin 31.3 pg (25.0-34.0); Mean Corpuscular Hgb Conc 33.2 g/dL (32.0-36.0); Mean Corpuscular Volume 94.4 fL (80.0-100.0); Mean Platelet Volume 11.7 fL (9.4-12.4); Monocytes # (auto) 0.47 K/uL (0.11-0.59); Monocytes % (auto) 9.2 %; Neutrophils # (auto) 2.71 K/uL (1.40-6.50); Neutrophils % (auto) 52.8 %; Platelet Count 124 K/uL (130-400); RDW Coefficient of Variation 14.5 % (11.5-14.5); RDW Standard Deviation 49.9 fL (36.4-46.3); Red Blood Count 3.96 M/uL (4.20-5.40); White Blood Count 5.13 K/ul (4.8-10.8)
[2024-01-12] MEDS: PANTOprazole 40 MG TAB PO SCH (08:52)
[2024-01-12] MEDS: cefTRIAXone SODIUM 2,000 MG in DEXTROSE 5 % MINI-B 50 ML IV SCH (08:52)
[2024-01-12 08:54] LABS: Estimated Average Glucose 280 mg/dl; Hemoglobin A1C 11.4 % (4.5-5.6)
[2024-01-12 09:17] LABS: Albumin Globulin Ratio 1.1 (0.9-2); Albumin Level 2.9 gm/dl (3.4-5.0); BUN Creatinine Ratio 17.6 (10-20); Bilirubin,Total 0.4 mg/dl (0.2-1.0); Calcium 8.3 mg/dl (8.6-10.3); Creatinine Clr Calc Pharmacy 139.3 ml/min; Est GFR (African American) 125.5 ml/min; Est GFR (Non-African American) 108.3 ml/min; Globulin 2.6 gm/dl (2.5-4.0); Magnesium 1.7 mg/dl (1.7-2.4); Potassium 3.4 mmol/L (3.5-5.1); Total Protein 5.5 gm/dl (6.0-8.3)
[2024-01-12] MEDS: INSULIN HUMAN NPH SC SCH ×2 (09:24→17:30)
--- NOTE | 2024-01-12 12:57 | Hospitalist Progress Note ---
Date of Service January 12, 2024 Assessment & Plan (1) Recurrent falls: Plan: Noted left lumbar radiculopathy with new worsening weakness in May last year with MRI lumbar spine with left posterior central disc protrusion which may be contacting the S1 nerve root. She is now on oral prednisone. (2) Wound of right lower extremity: Plan: no definitive cellulitis surrounding wound. Local care. No evidence of infection. Consult wound care nurse (3) Uncontrolled type 2 diabetes mellitus: Plan: Hemoglobin A1C 11.1 in March 2023. Glucose 547 on admission. She is on high-dose glargine insulin which is not effective for her. This has been switched to NPH. She agrees to start metformin. Continue sliding scale coverage. ADA diet. (4) Opiate dependence: Plan: Not picked up oxycodone since November, unclear if PCP weaning off this (5) Seizure disorder: Plan: Stable continue Keppra (6) Anxiety: Plan: Stable continue duloxetine, buspar, trazodone (7) GERD (gastroesophageal reflux disease): Plan: Stable. Continue pantoprazole and famotidine (8) Lumbar back pain with radiculopathy affecting left lower extremity: Plan: She is now on a prednisone tapering dose. Pain control measures as needed. Supportive care Plan To be determined by clinical response to medications. OT and PT evaluations requested Admission and Anticipated Discharge Date Admission Date: January 11, 2024 Subjective Alert and oriented. No distress. She is on high-dose Lantus at home with no significant effect. Insulin switched to NPH insulin and metformin has been added. She is also now on prednisone for her lumbar radiculopathy. She probably has a urinary tract infection. She is now on Rocephin. Urine culture results pending. Review of Systems 2 Review of Systems: Constitutional-no fever or chills ENT-no blurred vision, no double vision, no epistaxis, no sore throat Respiratory-no cough, no wheezing, no shortness of breath Cardiac-no palpitations, no chest pain, no syncope GI-no nausea, vomiting, diarrhea, melena, hematochezia -no urinary retention, no urinary incontinence, no hematuria. She has had some dysuria Musculoskeletal-left lumbar radiculopathy symptoms, no muscle tenderness Skin-no bruising, no rashes, no pruritus Neuro-no isolated weakness, no paresthesia Psych-no depression, no anxiety Physical Exam 2 Physical Exam: General-alert and oriented x3, no fever, no chills. Obese HEENT-head atraumatic and normocephalic, pupils equal and reactive to light, extraocular muscles intact Neck-no lymphadenopathy or thyromegaly, trachea midline Chest-clear to auscultation. No rales, wheezing or rhonchi Cardiac-regular rate and rhythm, normal S1 and S2 Abdomen-normal bowel sounds, nontender, no hepatosplenomegaly Extremities-no cyanosis, clubbing, or edema Neuro-cranial nerves II through XII intact, motor and sensory function within normal limits, strength symmetrical, no focal deficits Psych-normal affect, normal mood Results & Data Results & Data Vital Signs (Past 12 Hours) Vital Signs Temp Pulse Resp BP Pulse Ox O2 Del Method 01/12/24 08:00 Room Air 01/12/24 07:53 36.5 C 89 18 96/62 L 95 Room Air Laboratory Results 01/12/24 08:12 01/12/24 08:12 PG Care Time/CCT Total # of Minutes Spent Total Time Spent with Patient: Total time spent is greater than 50% in coordination of care (as documented) at patient's floor/unit and/or counseling patient: Coding Level of Care Code 96307 SUB INP/OBS CARE 3/50MIN Diagnoses Recurrent falls R29.6 Wound of right lower extremity S81.801A Uncontrolled type 2 diabetes mellitus E11.65 Opiate dependence F11.20 Seizure disorder G40.909 Anxiety F41.9 GERD (gastroesophageal reflux disease) K21.9 Lumbar back pain with radiculopathy affecting left lower extremity M54.16
[2024-01-12] MEDS: predniSONE 10 MG TABLET PO SCH (13:59)
[2024-01-12] MEDS: metFORMIN HCL 500 MG TAB PO SCH (13:59)
--- NOTE | 2024-01-12 17:40 | CT Scan Report ---
CT OF THE RIGHT TIBIA AND FIBULA/RIGHT LOWER LEG WITHOUT CONTRAST CLINICAL HISTORY: Right lower extremity infection. COMPARISON STUDY: Right knee radiographs September 25, 2018. TECHNIQUE: Axial images of the right tibia and fibula/lower leg were obtained without IV contrast. Sa gittal and coronal reconstructions were viewed. Automated exposure control was utilized for the study . A dose lowering technique was utilized adhering to the principles of ALARA. FINDINGS: A small to moderate right knee joint effusion is partially imaged. There is severe patellof emoral compartment joint space narrowing with osteophytosis. There is moderate osteophytosis with mil d joint space narrowing within the medial and lateral compartments of the right knee. A small poplite al cyst is present. There is moderate subcutaneous fluid within the right lower leg. There is no soft tissue gas. No radiopaque foreign bodies are noted. Note is made of a 7.9 x 5.7 x 1.2 cm pocket of f luid along the anterolateral aspect of the right lower leg, within the skin. This favors a blister. N o fluid collection is identified to suggest an abscess. There is no acute fracture within the right t ibia or fibula. No bony erosions are identified. IMPRESSION: 1. Moderate subcutaneous fluid of the right lower leg. This may reflect edema or cellulitis. No evide nce for abscess. No soft tissue gas. No evidence for acute osteomyelitis within the right tibia or fi bula. 2. 7.9 x 5.7 x 1.2 cm pocket of fluid within the skin of the anterolateral right lower leg suggestive of a blister. ACT 112: Negative or not required by law. Electronically signed by: Dani Cardona M.D. 01/12/2024 5:38 PM
[2024-01-13 09:06] LABS: BUN Creatinine Ratio 19.3 (10-20); Calcium 8.7 mg/dl (8.6-10.3); Creatinine Clr Calc Pharmacy 124.7 ml/min; Est GFR (Non-African American) 104.4 ml/min; Potassium 3.9 mmol/L (3.5-5.1)
--- NOTE | 2024-01-13 11:20 | Discharge Summary ---
Date of Service January 13, 2024 Admission HPI Per Admitting Provider Elza Vick is a 53-year-old female who presents to the ER due to frequent falls at home. She reports prior diagnosis of spinal stenosis although on review of prior MRI this appears to be more of a left sided radiculopathy. She reports her legs just giving out intermittently while walking. She does not pain radiating down the back of her left leg but reports the problem is more weakness that sudden occurs causing her to fall. This has been an ongoing issue but worse over the last month. Her PCP has been trying to get her to come to the ER as she cannot get to the lab because she could not walk or leave the house. She reports police were called yesterday for a wellness check on her. No dizziness or lightheadedness. She reports taking her insulin as prescribed. She thinks her right lower extremity wound occurred just today which prompted her deciding to come to the ER. Principal Diagnosis Left lumbar radiculopathy, poorly controlled diabetes, UTI, recurrent falls, right lower extremity superficial wound Discharge Exam General-alert and oriented x3, no fever, no chills. Obese HEENT-head atraumatic and normocephalic, pupils equal and reactive to light, extraocular muscles intact Neck-no lymphadenopathy or thyromegaly, trachea midline Chest-clear to auscultation. No rales, wheezing or rhonchi Cardiac-regular rate and rhythm, normal S1 and S2 Abdomen-normal bowel sounds, nontender, no hepatosplenomegaly Extremities-no cyanosis, clubbing, or edema Neuro-cranial nerves II through XII intact, motor and sensory function within normal limits, strength symmetrical, no focal deficits Psych-normal affect, normal mood Discharge Data Allergies Allergy/AdvReac Type Severity Reaction Status Date / Time Iodinated Contrast Media Allergy Severe Anaphylaxis Verified 01/11/24 19:14 acetaminophen AdvReac Severe LIVER Verified 01/11/24 19:14 COMPLICATIONS cephalexin AdvReac Severe Vomiting Verified 01/11/24 19:14 levofloxacin [From Levaquin] AdvReac Intermediate Vomiting Verified 01/11/24 19:14 Consultations 01/11/24 17:34 ED Decision to Admit Stat 01/12/24 14:53 Consult General Surgery Routine Ordered Studies 01/12/24 16:35 CT leg [CT tib/fib RT wo con] Routine Hospital Course (1) Recurrent falls: Noted left lumbar radiculopathy with new worsening weakness in May last year with MRI lumbar spine with left posterior central disc protrusion which may be contacting the S1 nerve root. She is now on oral prednisone. (2) Wound of right lower extremity: no definitive cellulitis surrounding wound. Local care. No evidence of infection. General surgery consultation and recommendations appreciated. She will follow-up as an outpatient with the wound care center until this is healed. (3) Uncontrolled type 2 diabetes mellitus: Hemoglobin A1C 11.1 in March 2023. Glucose 547 on admission. She is on high-dose glargine insulin which is not effective for her. This has been switched to NPH. She now refuses to take metformin. Continue sliding scale coverage while hospitalized. ADA diet. (4) Opiate dependence: Not picked up oxycodone since November, unclear if PCP weaning off this (5) Seizure disorder: Stable continue Keppra (6) Anxiety: Stable continue duloxetine, buspar, trazodone (7) GERD (gastroesophageal reflux disease): Stable. Continue pantoprazole and famotidine (8) Lumbar back pain with radiculopathy affecting left lower extremity: She is now on a prednisone tapering dose. Much improved. Pain control measures as needed. Supportive care Plan Home today, January 12 Total Time Total Time Spent Total Time Spent (In Minutes): 45 minutes Discharge Plan Discharge Items Patient Disposition: Home - Self-Care Reason For Visit: FREQUENT FALLS, HYPERGLYCEMIA Discharge Diagnosis: Left lumbar radiculopathy, poorly controlled type 2 diabetes, superficial right lower extremity wound, urinary tract infection Activity: Resume your previous activity Non-emergency contact: Primary Care Provider Call non-emergency contact if: you have any medication questions and your symptoms worsen Follow-up/Referrals: Aiden Skinner MD [Primary Care Provider] - 01/20/24 11:05 am (DR SKINNER/NAIMA) Diet: Carb Consistent or DM2 Addtl Attending Provider Instructions: Insulin glargine switched to NPH insulin at a lower dosage. Take Bactrim antibiotic for 5 more days. Follow-up with wound clinic. Take prednisone in a tapering dose fashion until it is gone Pending Studies at Discharge: No Stand-Alone Forms: My DataParenting, Smoking Cessation Medications and DC Order Prescriptions: New prednisone 10 mg Tablet See Rx Instructions .ROUTE .COMPLEX Qty: 12 0RF Rx Instructions: 10 mg orally 3 times a day for 2 days, then 10 mg twice a day for 2 days, then 10 mg once a day for 2 days, then stop Humulin N NPH Insulin KwikPen 100 unit/mL (3 mL) insulin pen 25 unit subcut BID Qty: 15 0RF Continued cyclobenzaprine 10 mg Tablet 10 mg PO BID PRN (Reason: Muscle Spasm) Qty: 0 albuterol sulfate [Ventolin HFA] 90 mcg/actuation Hfa Aerosol Inhaler 2 puff INHALATION Q4H PRN (Reason: Shortness Of Breath Or Wheezing) Qty: 0 montelukast [Singulair] 10 mg tablet 10 mg PO HS clindamycin phosphate 1 % gel 1 applic topical DAILY PRN (Reason: Unknown) fluticasone propion-salmeterol [AirDuo RespiClick] 232-14 mcg/actuation aerosol powdr breath activated 2 inh inhalation BID PRN (Reason: Shortness Of Breath) ibuprofen 800 mg tablet 800 mg PO TID PRN (Reason: Pain) Patient Comments: Per PT she uses the meloxicam promethazine 25 mg tablet 25 mg PO Q6H PRN (Reason: Nausea) aspirin 81 mg Tablet,Delayed Release (Dr/Ec) 81 mg PO QAM duloxetine 60 mg capsule,delayed release(DR/EC) 60 mg PO HS buspirone 5 mg tablet 5 mg PO QID nystatin [Nyamyc] 100,000 unit/gram powder 1 applic TOPICAL DIRECTED PRN (Reason: NEEDED ) levetiracetam 1,000 mg tablet 1,000 mg PO BID 30 Days Qty: 60 0RF diclofenac sodium 1 % Gel 4 g TOPICAL QID PRN (Reason: Pain) albuterol sulfate 2.5 mg /3 mL (0.083 %) solution for nebulization 2.5 mg inhalation Q6 PRN (Reason: Wheezing) famotidine 40 mg tablet 40 mg PO BID pantoprazole 20 mg tablet,delayed release (DR/EC) 20 mg PO QAM lidocaine 5 % adhesive patch,medicated 1 patch transdermal DAILY PRN (Reason: Pain) fluticasone propionate [Flonase Allergy Relief] 50 mcg/actuation spray,suspension 1 spray INTRANASAL DAILY PRN (Reason: Congestion) trazodone 100 mg tablet 100 mg PO HS polyethylene glycol 3350 [Miralax] 17 gram/dose Powder 17 g PO BID Patient Comments: Typically uses once a day gabapentin 800 mg tablet 800 mg PO TID ondansetron 4 mg tablet,disintegrating 4 mg PO Q6H PRN (Reason: nausea and vomiting) Qty: 12 0RF meloxicam 15 mg tablet 15 mg PO DAILY Discontinued Humulin R U-500 (Conc) Kwikpen 500 unit/mL (3 mL) insulin pen 50 unit subcut TID Qty: 18 0RF Rx Instructions: Inject 50 units into the abdomen 3 times per day; injections should be 6-8 hours apart. Discharge Orders: Discharge Order (Routine); Ordered 01/13/24 Ordered By: Ramin Leonardo/Other Patient Handouts: High Blood Sugar (Hyperglycemia), Managing Type 2 Diabetes Admission Data Admit Date/Time: 01/11/24 18:36 Attending Provider: Ramin De Dios Admit Provider: Gerard Park Primary Care Provider: Aiden Skinner Other Providers: Gerard Park; Kurt Guo; Charles Louis; Jim Wilson; Steve Delgado; Jacob Fernandes; Merly Pelaez; Arcenio Jackson; Vahe Rios; Renny Yee; Nicko Fleming Other Interventions: Discharge Summary Assessment (RN) Last Done: 01/13/24 10:50 Coding Level of Care Code 04265 INP/OBS DISCH >30 MIN Diagnoses Recurrent falls R29.6 Wound of right lower extremity S81.801A Uncontrolled type 2 diabetes mellitus E11.65 Opiate dependence F11.20 Seizure disorder G40.909 Anxiety F41.9 GERD (gastroesophageal reflux disease) K21.9 Lumbar back pain with radiculopathy affecting left lower extremity M54.16
[2024-01-13] MEDS ORDERED: INSULIN HUMAN NPH SC SCH (17:00)
--- NOTE | 2024-01-14 00:56 | Electrocardiogram Report ---
Test Reason : Blood Pressure : / mmHG Vent. Rate : 100 BPM Atrial Rate : 100 BPM P-R Int : 206 ms QRS Dur : 100 ms QT Int : 382 ms P-R-T Axes : 044 -10 046 degrees QTc Int : 492 ms Normal sinus rhythm Cannot rule out Anterior infarct (cited on or before 12-FEB-2023) Abnormal ECG When compared with ECG of 28-JUL-2023 14:51, Questionable change in initial forces of Lateral leads Confirmed by Gee Joseph ([id number]) on 01/14/2024 12:56:33 AM Referred By: REFERRED SELF Confirmed By:Gee Joseph
== END 2024-01-13 11:44 | disposition home or self-care (01) ==
LOC: ED 14:40 → EDINP 14:40 → SUATTDRO 18:36 → 3N 19:37